=== PATIENT | male | born 1955 | race Caucasian/White ===

== ENCOUNTER 2023-09-06 09:58 | Inpatient (IN) | payer MEDICARE, OTHER, SELFPAY ==
[2023-09-06] VITALS (11 sets, daily range): BP systolic 92–187; BP diastolic 66–124; PULSE 47–81; RESP 10–18; TEMP 36.6–36.7; O2SAT 96–100; BMI 20.7
--- NOTE | ~2023-09-06 | XR_ITS ---
EXAMINATION: XR CHEST XR KUB CLINICAL INFORMATION: New dyspnea on exertion, abdominal pain, nausea, vomiting. COMPARISON: Chest 09/07/2023, 01/18/2016. TECHNIQUE: AP view of the chest. 2 AP views of the abdomen. FINDINGS: CHEST: Right humeral prosthesis redemonstrated. Median sternotomy wires with mediastinal clips. Severe degenerative changes on limited views of the left shoulder. Low lung volumes. There is no gross pneumothorax. Stable cardiomediastinal silhouette, borderline enlarged. Diffuse prominent increased interstitial opacities, asymmetrically greater on the left with increased patchy and nodular opacities predominantly in the left mid to lower lung. Trace left costophrenic angle blunting, possibly representing a pleural effusion. KUB: Large amount of stool throughout the colon. Gas is scattered in the colon. Severe degenerative changes in the imaged thoracolumbar spine. Degenerative changes in bilateral hips. Bones are diffusely demineralized. Extensive vascular calcifications. Surgical clips in the right upper quadrant of the abdomen. XR/XR KUB IMPRESSION: 1. Diffuse prominent increased interstitial opacities, asymmetrically greater on the left with increased patchy and nodular opacities predominantly in the left mid to lower lung. Differential considerations include edema, infectious/inflammatory process and/or other etiology. Trace left costophrenic angle blunting, possibly representing a pleural effusion. 2. Large amount of stool throughout the colon. Gas is scattered in the colon. This study was presented today, 09/14/2023, for interpretation. Stat results provided at this time as requested by referring provider.
--- NOTE | ~2023-09-06 | CT_ITS ---
EXAMINATION: CT CHEST WITHOUT CONTRAST CLINICAL INFORMATION: Shortness of breath. Hemoptysis. COMPARISON: None. TECHNIQUE: Multidetector volumetric CT imaging of the chest was done. Axial MIP volume rendering provided. Sagittal and coronal reformatted images were obtained. This CT examination was performed using dose optimization techniques as appropriate, variously including the following: *Automated exposure control *Adjustment of mA and/or kV according to patient size (this includes techniques or standardized protocols for targeted exams where dose is matched to indication/reason for exam; i.e. extremities or head) *Use of iterative reconstruction technique DLP: 694 mGy-cm FINDINGS: LUNGS: Diffuse groundglass airspace opacity in the left upper lobe adjacent to the major fissure. May be infectious or inflammatory in etiology. There are smaller areas of atelectasis at both lung bases. Paraseptal blebs at the lungs. There are a scattered micronodules and calcified granuloma. Largest measuring about 2 mm. There are no suspicious lung nodules. According to the UPDATED 2017 Fleischner Society recommendations, the advised follow-up imaging for solid nodules <6 mm is no routine follow up. MEDIASTINUM: Status post median sternotomy. Heart size normal. No pericardial effusion. Vascular calcifications of aorta and great vessels. No mediastinal mass or significant lymphadenopathy CORONARY ARTERY CALCIFICATION: Heavy coronary calcification PLEURA: Small dependent left pleural effusion. AXILLA: No lymphadenopathy. UPPER ABDOMEN: Status post cholecystectomy. No focal abnormalities solid organs upper abdomen. OSSEOUS STRUCTURES: Status post right shoulder replacement. Advanced degenerative changes of the left shoulder joint narrowing subchondral sclerosis and cystic changes. Multilevel degenerative spondylosis spine. CT/CT chest wo IV con IMPRESSION: 1. Diffuse groundglass airspace opacity in the left upper lobe adjacent to the major fissure. May be infectious or inflammatory in etiology. 2. Small dependent left pleural effusion. 3. Bibasilar dependent atelectasis. 4. Paraseptal emphysematous change of lungs Fleischner guidelines were followed.
--- NOTE | ~2023-09-06 | CT_ITS ---
EXAMINATION: CT HEAD WITHOUT CONTRAST CLINICAL INFORMATION: Memory impairment. Falls. COMPARISON: CT head dated 02/06/2009. TECHNIQUE: Contiguous axial imaging was performed from the skull base to vertex without intravenous administration of contrast. This CT examination was performed using dose optimization techniques as appropriate, variously including the following: *Automated exposure control *Adjustment of mA and/or kV according to patient size (this includes techniques or standardized protocols for targeted exams where dose is matched to indication/reason for exam; i.e. extremities or head) *Use of iterative reconstruction technique DLP: 628 mGy-cm FINDINGS: There is no acute intracranial hemorrhage. There is no evidence of acute/subacute cerebral or cerebellar infarction. There is a chronic right thalamic lacunar infarction. There is a chronic right occipital lobe infarction. There is mild microvascular ischemic change. There is no midline shift or mass effect. There is no extra-axial fluid collection. There is no hydrocephalus. The calvarium is intact. The orbits are symmetric and within normal limits. The visualized paranasal sinuses are clear. The mastoid air cells are well aerated. CT/CT head/brain wo IV con IMPRESSION: No acute intracranial pathology. Mild microvascular ischemic change. Chronic right thalamic lacunar infarction. Chronic right occipital lobe infarction.
--- NOTE | ~2023-09-06 | US_ITS ---
EXAMINATION: US ABDOMEN LIMITED CLINICAL INFORMATION: Pancytopenia. Rule out cirrhosis.. COMPARISON: Previous CT of the abdomen and pelvis from 2010 TECHNIQUE: Real-time imaging of the right upper quadrant abdominal viscera. FINDINGS: PANCREAS: Not seen. LIVER: Normal. The liver is normal in size. The liver contour is normal. Parenchymal echogenicity is normal. No focal hepatic lesion. There is no intrahepatic biliary duct dilatation seen. GALLBLADDER: Not seen. COMMON BILE DUCT: Normal in caliber measuring 0.3 cm in diameter. RIGHT KIDNEY: 1 cm cyst in the midpole. No hydronephrosis. No renal calculi or focal parenchymal lesions. The kidney measures 10 cm in maximum dimension. FREE FLUID: None. US/US abdomen limited IMPRESSION: Normal-appearing liver. Pancreas and gallbladder are not seen.
--- NOTE | ~2023-09-06 | XR_ITS ---
EXAMINATION: XR CHEST XR KUB CLINICAL INFORMATION: New dyspnea on exertion, abdominal pain, nausea, vomiting. COMPARISON: Chest 09/07/2023, 01/18/2016. TECHNIQUE: AP view of the chest. 2 AP views of the abdomen. FINDINGS: CHEST: Right humeral prosthesis redemonstrated. Median sternotomy wires with mediastinal clips. Severe degenerative changes on limited views of the left shoulder. Low lung volumes. There is no gross pneumothorax. Stable cardiomediastinal silhouette, borderline enlarged. Diffuse prominent increased interstitial opacities, asymmetrically greater on the left with increased patchy and nodular opacities predominantly in the left mid to lower lung. Trace left costophrenic angle blunting, possibly representing a pleural effusion. KUB: Large amount of stool throughout the colon. Gas is scattered in the colon. Severe degenerative changes in the imaged thoracolumbar spine. Degenerative changes in bilateral hips. Bones are diffusely demineralized. Extensive vascular calcifications. Surgical clips in the right upper quadrant of the abdomen. XR/XR chest 1V IMPRESSION: 1. Diffuse prominent increased interstitial opacities, asymmetrically greater on the left with increased patchy and nodular opacities predominantly in the left mid to lower lung. Differential considerations include edema, infectious/inflammatory process and/or other etiology. Trace left costophrenic angle blunting, possibly representing a pleural effusion. 2. Large amount of stool throughout the colon. Gas is scattered in the colon. This study was presented today, 09/14/2023, for interpretation. Stat results provided at this time as requested by referring provider.
--- NOTE | ~2023-09-06 | XR_ITS ---
EXAMINATION: XR CHEST CLINICAL INFORMATION: Fever. COMPARISON: 01/18/2016 TECHNIQUE: Frontal view of the chest was obtained. FINDINGS: The lungs are well expanded. No focal consolidation. No pleural effusion. Cardiac silhouette is stable. Prior median sternotomy. There is fracture of the inferior most sternal wire. Right shoulder arthroplasty. Severe degenerative changes of the left shoulder XR/XR chest 1V IMPRESSION: No acute abnormality.
--- NOTE | 2023-09-06 10:16 | ED_ITS ---
HPI - General Adult General Chief complaint: General Medical Stated complaint: FTT Time Seen by Provider: 09/06/23 10:15 Source: patient and EMS Mode of arrival: EMS Limitations: no limitations History of Present Illness HPI narrative: Patient is a 68 year old assigned male at with a history of atrial fib on Eliquis, CKD, CVA, depression, Gout, and HTN presenting to the emergency department today with weakness. Patient states that he lives at home with his grandson however, today, he was unable to get up so he shouted for help and the walking by [employer] heard him. EMS states that the patient was found lying in bed covered in his own feces and urine. PD states that the patient's house has been officially condemned. Patient denies any dizziness, lightheadedness, abdominal pain, nausea, vomiting, fever, chills, blurry vision, double vision, loss of vision, chest pain, difficulty breathing, shortness of breath, back pain, night sweats, pain with urination, increased urinary frequency, increased urinary urgency, blood in his urine or stool, syncope or a near syncopal episode, recent trauma or falls, bowel incontinence, bladder incontinence, bowel retention, bladder retention, or any other complaints at this time. Relieving factors: none Exacerbating factors: none Associated symptoms: denies other symptoms Treatments prior to arrival: none Related Data Home Medications ?Medication ?Instructions ?Recorded ?Confirmed allopurinol 100 mg tablet 100 mg PO DAILY 09/06/23 09/06/23 amlodipine 5 mg tablet 5 mg PO DAILY 09/06/23 09/06/23 apixaban 5 mg tablet (Eliquis) 5 mg PO BID 09/06/23 09/06/23 atorvastatin 40 mg tablet 40 mg PO DAILY 09/06/23 09/06/23 bupropion HCl 150 mg 24 hr tablet, 150 mg PO DAILY 09/06/23 09/06/23 extended release carvedilol 12.5 mg tablet 12.5 mg PO BID 09/06/23 09/06/23 cholecalciferol (vitamin D3) 1,250 1,250 mcg PO QWEEK 09/06/23 09/06/23 mcg (50,000 unit) capsule clonidine HCl 0.1 mg tablet 0.1 mg PO TID 09/06/23 09/06/23 clopidogrel 75 mg tablet 75 mg PO DAILY 09/06/23 09/06/23 cyanocobalamin (vitamin B-12) 1,000 mcg PO DAILY 09/06/23 09/06/23 1,000 mcg tablet furosemide 40 mg tablet 40 mg PO BID 09/06/23 09/06/23 hydralazine 50 mg tablet 50 mg PO TID 09/06/23 09/06/23 isosorbide mononitrate 60 mg 60 mg PO QAM 09/06/23 09/06/23 tablet,extended release 24 hr ondansetron HCl 4 mg tablet 4 mg PO Q8H PRN Nausea And Vomiting 09/06/23 09/06/23 oxycodone 15 mg tablet 15 mg PO Q4H PRN pain 09/06/23 09/06/23 pantoprazole 40 mg tablet,delayed 40 mg PO DAILY 09/06/23 09/06/23 release potassium chloride 10 mEq 10 meq PO BEDTIME 09/06/23 09/06/23 tablet,extended release potassium chloride 10 mEq 20 meq PO DAILY 09/06/23 09/06/23 tablet,extended release sertraline 100 mg tablet 100 mg PO DAILY 09/06/23 09/06/23 spironolactone 25 mg tablet 25 mg PO DAILY 09/06/23 09/06/23 sucralfate 1 gram tablet 1 g PO QIDACHS 09/06/23 09/06/23 Allergies Allergy/AdvReac Type Severity Reaction Status Date / Time No Known Allergies Allergy Verified 09/06/23 10:39 Review of Systems 2 Constitutional: Constitutional: Reports no additional constitutional complaints, Denies chills, Denies fever(s) and Denies night sweats Eyes: Eyes: Reports no additional eye complaints, Denies blurry vision, Denies change in vision, Denies diplopia, Denies eye discharge, Denies loss of vision and Denies eye pain ENT: Denies dizziness Cardiovascular: Cardiovascular: Reports no additional cardiovascular complaints, Denies chest pain, Denies lightheadedness, Denies Loss of Consciousness and Denies dyspnea Respiratory: Respiratory: Reports no additional respiratory complaints and Denies dyspnea Gastrointestinal: Gastrointestinal: Reports no additional gastrointestinal complaints, Denies abdominal pain, Denies melena, Denies hematochezia, Denies change in bowel habits and Denies change in stool character Genitourinary: Genitourinary: Reports no additional male genitourinary complaints, Denies hematuria, Denies oliguria, Denies difficulty urinating, Denies dysuria, Denies urinary frequency, Denies urinary hesitancy, Denies urinary incontinence and Denies urinary urgency Musculoskeletal: Musculoskeletal: Reports no additional musculoskeletal complaints, Denies numbness and Denies tingling Neurologic: Denies dizziness, Denies loss of vision, Denies numbness and Denies tingling Psychiatric: Psychiatric: Reports no additional psychiatric complaints Endocrine: Endocrine: Reports no additional endocrine complaints Hematologic/Lymphatic: Hematologic/Lymphatic: Reports no additional hematologic/lymphatic complaints Allergic/Immunologic: Allergic/Immunologic: Reports no additional allergic/immunologic complaints [facility] Past Medical History Medical History (Updated 09/06/23 @ 14:38 by NHI Garza) Use of opiates for therapeutic purposes Shoulder pain Pain in joint involving shoulder region JOSE ALEJANDRO (obstructive sleep apnea) OA (osteoarthritis) of knee Neuropathy of upper extremity Knee pain Hypertension, renal disease Hyperlipidemia Gout Depression Degenerative joint disease (DJD) of lumbar spine CVA (cerebral vascular accident) Chronic pain syndrome Chronic kidney disease, stage 3b Atrial fibrillation Aortic aneurysm Surgical History (Updated 09/06/23 @ 12:04 by Zayda Sutherland RN) Hx of CABG Social History Social History Smoked in Last 30 Days: No Use of substances other than those prescribed or required for medical reasons: Yes Substance Use Type: Marijuana Substance Use Frequency: Occasionally Advance Directives: No Advance Directives Information Provided: Yes Do you have a plan to hurt others: No Plan Physical Exam ED Vital Signs: Vital Signs - 24 hr 09/06/23 10:36 09/06/23 10:38 09/06/23 11:02 Temperature 98.1 F Pulse Rate 72 Respiratory Rate 16 16 Blood Pressure 181/119 H 174/117 H Pulse Oximetry 97 Oxygen Delivery Method Room Air 09/06/23 12:00 09/06/23 14:00 Temperature 97.9 F Pulse Rate 63 64 Respiratory Rate 18 16 Blood Pressure 176/107 H 187/124 H Pulse Oximetry 96 Oxygen Delivery Method Room Air BMI result Body Mass Index 20.7 Const General: cooperative, no acute distress, alert and awake Nutritional Appearance: well nourished Orientation/consciousness: patient oriented x3 Limitations: no limitations HENMT Head: Yes normal to inspection and Yes atraumatic Ears: hearing grossly normal bilaterally and external ears normal General nose exam: Normal external nose present, no nasal discharge noted and no epistaxis Face and sinus: Yes normal facial exam, No abrasion and No laceration Mouth: Normal oral and palatal mucosa present, no drooling and no muffled voice Eyes General: appearance normal, both eyes and all related structures Periorbital: periorbital findings normal Eyelids: Yes eyelids normal Conjunctivae: conjunctivae normal Pupils: Equal, round and reactive pupils present EOM: EOMs intact bilaterally Neck Neck: Yes normal visual inspection, Yes full ROM and Yes no lymphadenopathy Chest Chest palpation & inspection: normal inspection of the chest Resp Effort & Inspection: normal respiratory effort and able to speak in complete sentences GI Palpation (GI): Soft to palpation, not firm, nontender and no guarding Neuro General: patient oriented x3 and moves all extremities Cranial nerves: Yes Equal, round and reactive pupils present Cognition (Neuro): normal cognition Motor exam (neuro): 5/5 motor strength present throughout Sensory Exam: Normal double simultaneous stimulation for sensation Coordination: [id number] test normal Extrem Other: General: Yes full ROM and Yes capillary refill normal Psych Appearance: grossly normal Mental Status: mental status grossly normal Affect: normal affect Attitude: cooperative Thought process: Normal thought process present Thought content: Normal thought content present Insight: Good insight present (Psych) Medications Administered Generic Name Dose Route Start Last Admin Trade Name Charles PRN Reason Stop Dose Admin Allopurinol 100 mg 09/06/23 13:00 09/06/23 13:19 Allopurinol 100 Mg Tablet PO 100 mg DAILY JOHN Administration Amlodipine Besylate 5 mg 09/06/23 13:00 09/06/23 13:19 Amlodipine Besylate 5 Mg Tablet PO 5 mg DAILY JOHN Administration Protocol Apixaban 5 mg 09/06/23 13:00 09/06/23 13:19 Apixaban 5 Mg Tablet PO 5 mg BID JOHN Administration Atorvastatin Calcium 40 mg 09/06/23 13:00 09/06/23 13:18 Atorvastatin Calcium 40 Mg Tablet PO 40 mg DAILY JOHN Administration Bupropion HCl 150 mg 09/06/23 13:00 09/06/23 13:22 Bupropion Hcl Xl 150 Mg Tab.Er.24h PO 150 mg DAILY JOHN Administration Carvedilol 12.5 mg 09/06/23 13:00 09/06/23 13:19 Carvedilol 12.5 Mg Tablet PO 12.5 mg BID JOHN Administration Protocol Clopidogrel Bisulfate 75 mg 09/06/23 13:00 09/06/23 13:19 Clopidogrel Bisulfate 75 Mg Tablet PO 75 mg DAILY JOHN Administration Cyanocobalamin 1,000 mcg 09/06/23 13:00 09/06/23 13:18 Cyanocobalamin (Vitamin B-12) 1,000 Mcg Tablet PO 1,000 mcg DAILY JOHN Administration Furosemide 40 mg 09/06/23 13:00 09/06/23 13:20 Furosemide 40 Mg Tablet PO 40 mg BID JOHN Administration Protocol Isosorbide Mononitrate 60 mg 09/06/23 13:00 09/06/23 13:19 Isosorbide Mononitrate 60 Mg Tab.Er.24h PO 60 mg DAILY JOHN Administration Protocol Sertraline HCl 100 mg 09/06/23 13:00 09/06/23 13:19 Sertraline Hcl 100 Mg Tablet PO 100 mg DAILY JOHN Administration Spironolactone 25 mg 09/06/23 13:00 09/06/23 13:18 Spironolactone 25 Mg Tablet PO 25 mg DAILY JOHN Administration Protocol Medical Decision Making Medical Decision Making MDM Narrative: Patient is a 68 year old assigned male at with a history of atrial fib on Eliquis, CKD, CVA, depression, Gout, and HTN presenting to the emergency department today with weakness. Patient's physical exam was as noted in the physical exam portion of this note. Patient's blood work was unremarkable. Patient's urine showed no acute process. Patient's EKG showed atrial fibrillation which is chronic for the patient. I explained my physical exam findings as well as all test results to the patient. I answered all questions asked by the patient. Patient is medically cleared however, patient cannot go home. Physician observation began at 1256. Consultation in for case management and for physical therapy. Cardiac diet ordered. Differential Diagnosis Differential Diagnoses: The differential diagnosis associated with the presentation includes Weakness Failure to thrive Inability to ambulate Admission/Observation Consideration of admission/observation: Escalation of care including admission/observation considered Patient would have been admitted to the hospital had his work up had any findings where hospital admission was appropriate and his clinical presentation warranted hospital admission. Lab Data [facility] Lab Attestation statement: I reviewed the patient's lab results. My interpretation of these results are in the MDM Rationale portion of this note. 09/06/23 10:53 09/06/23 10:53 Labs: Lab Results 09/06/23 09/06/23 09/06/23 Range/Units 10:53 10:59 12:03 WBC 4.8 (4.8-10.8) X10*3/uL RBC 4.52 L (4.60-5.80) X10*6/uL Hgb 12.6 L (14.0-18.0) g/dl Hct 38.3 L (42.0-52.0) % MCV 84.7 (80.0-98.0) fL MCH 27.9 (27.0-33.0) pg MCHC 32.9 (31.0-36.0) g/dl RDW 15.9 (11.0-16.0) % Plt Count 104 L (160-400) X10*3/uL MPV 10.5 (9.4-12.4) fL Immature Gran % (Auto) 0.4 (0.0-0.4) % Neut % (Auto) 83.5 H (45-73) % Lymph % (Auto) 9.0 L (20-40) % Morrill % (Auto) 6.3 (2-11) % Eos % (Auto) 0.4 (0-4) % Baso % (Auto) 0.4 (0-2) % Lymph # (Auto) 0.4 L (1.2-4.9) X10*3/uL Morrill # (Auto) 0.3 (0.1-1.2) X10*3/uL Eos # (Auto) 0.0 (0.0-0.4) X10*3/uL Baso # (Auto) 0.0 (0.0-0.2) X10*3/uL Abs Immat Gran (auto) 0.02 (0.00-0.03) X10*3/uL Absolute Neuts (auto) 4.0 (2.0-8.3) x10*3/uL Absolute Nucleated RBC 0.000 (0.0-0.012) X10*3/uL Nucleated RBC % (auto) 0.0 (0.0-0.2) /100WBC PT 16.3 H (11.1-13.3) SEC INR 1.3 H (0.9-1.1) APTT 40.0 H (26.0-36.8) SEC Sodium 139 (135-145) mmol/L Potassium 3.8 (3.3-5.1) mmol/L Chloride 105 (96-108) mmol/L Carbon Dioxide 24 (22-29) mmol/L Anion Gap 14 (12-20) BUN 13 (9-16) mg/dL Creatinine 1.12 (0.5-1.4) mg/dL Estim Creat Clear Calc 61.1 Estimated GFR > 60 Random Glucose 104 (60-115) mg/dL Calcium 9.4 (8.4-10.2) mg/dL Magnesium 2.0 (1.6-2.6) mg/dL Total Bilirubin 1.7 H (0.0-1.0) mg/dL AST 7 (5-37) U/L ALT 5 (0-40) U/L Alkaline Phosphatase 107 (39-117) U/L Total Creatine Kinase 61 (38-174) U/L Troponin I High Sens 23.3 20.7 (<3.5-35.0) ng/L Total Protein 7.4 (6.5-8.0) g/dL Albumin 4.2 (3.5-5.0) g/dL Urine Color Yellow Urine Appearance Clear Urine pH 5.0 (5.0-9.0) Ur Specific [place] 1.010 (1.005-1.025) Urine Protein 300 (3+) H (Neg-Trace) mg/dL Urine Glucose (UA) Negative (Negative) mg/dL Urine Ketones Negative (Negative) mg/dL Urine Blood Trace H (Negative) Urine Nitrite Negative (Negative) Ur Leukocyte Esterase Negative (Negative) Urine RBC 0-2 (0-2) /HPF Urine WBC 0-5 (0-5) /HPF Ur Squamous Epith Cells 0-2 (0-2) /HPF Urine Bacteria 1+ (None Seen) Hyaline Casts 0-2 (0-2) /LPF Stool Occult Blood NEGATIVE (NEGATIVE) Influenza Type A (PCR) NEGATIVE (Negative) Influenza Type B (PCR) NEGATIVE (Negative) RSV RNA Qual (PCR) NEGATIVE (Negative) SARS-CoV-2 RNA (RT-PCR) NEGATIVE (Negative) Independent Interpretation I performed an independent interpretation of an: EKG Interpretation: Vent. Rate: 064 BPM Atrial Rate: 000 BPM P-R Int: 000 ms QRS Dur: 076 ms QT Int: 480 ms P-R-T Axes: 000 031 131 degrees QTc Int: [address] & T wave abnormality, consider inferolateral ischemia Abnormal ECG When compared with ECG of 18-JAN-2016 17:33, Atrial fibrillation has replaced Sinus rhythm Minimal criteria for Inferior infarct are no longer Present ST elevation now present in Inferior leads DD/ 1047 Radiology Impression Discussion of test interpretation with radiology: I have reviewed the radiologist's reading. Independent Historian Clinical information obtained from an independent historian. History obtained from or confirmed by: EMS (EMS provided additional history and confirmed the history provided by the patient. ) Chronic Conditions Patient?s care impacted by: Hypertension Discharge Plan Discharge Clinical Impression: Weakness Patient Disposition: Still a Patient Prescriptions: No Action furosemide 40 mg tablet 40 mg PO BID atorvastatin 40 mg tablet 40 mg PO DAILY clonidine HCl 0.1 mg tablet 0.1 mg PO TID carvedilol 12.5 mg tablet 12.5 mg PO BID sucralfate 1 gram tablet 1 g PO QIDACHS ondansetron HCl 4 mg tablet 4 mg PO Q8H PRN (Reason: Nausea And Vomiting) sertraline 100 mg tablet 100 mg PO DAILY cyanocobalamin (vitamin B-12) 1,000 mcg tablet 1,000 mcg PO DAILY potassium chloride 10 mEq tablet extended release 10 meq PO BEDTIME potassium chloride 10 mEq tablet extended release 20 meq PO DAILY clopidogrel 75 mg tablet 75 mg PO DAILY amlodipine 5 mg tablet 5 mg PO DAILY allopurinol 100 mg tablet 100 mg PO DAILY spironolactone 25 mg tablet 25 mg PO DAILY oxycodone 15 mg tablet 15 mg PO Q4H PRN (Reason: pain) isosorbide mononitrate 60 mg tablet extended release 24 hr 60 mg PO QAM pantoprazole 40 mg tablet,delayed release (DR/EC) 40 mg PO DAILY hydralazine 50 mg tablet 50 mg PO TID bupropion HCl 150 mg tablet extended release 24 hr 150 mg PO DAILY cholecalciferol (vitamin D3) 1,250 mcg (50,000 unit) capsule 1,250 mcg PO QWEEK Eliquis 5 mg tablet 5 mg PO BID Print Language: Estonian
--- NOTE | 2023-09-06 10:43 | ECG_ITS ---
Test Reason : ? ARRYTHMIA Blood Pressure : / mmHG Vent. Rate : 064 BPM Atrial Rate : 000 BPM P-R Int : 000 ms QRS Dur : 076 ms QT Int : 480 ms P-R-T Axes : 000 031 131 degrees QTc Int : [address] & T wave abnormality, consider inferolateral ischemia Abnormal ECG When compared with ECG of 18-JAN-2016 17:33, Atrial fibrillation has replaced Sinus rhythm Minimal criteria for Inferior infarct are no longer Present ST elevation now present in Inferior leads Referred By: Lubna Arnold Electronically Signed By:KODY FITZGERALD MD
--- NOTE | 2023-09-06 10:44 | MHC.CARE ---
Call from Loly Choudhury, Public Health Director in [place] ([phone]), patient being sent to [facility] by EMS/police, the house is being condemned, water and electricity being shut off. He is unknown to local agencies.
--- NOTE | 2023-09-06 10:46 | MHC.CM.ED ---
Addendum entered by Liz Chou 09/06/23 15:43: [facility] is not active per virtual gateway. Referral made to [facility]. Addendum entered by Liz Chou 09/06/23 15:40: Trying to obtain a copy of HCP, MOLST, and last PCP note from [facility] records. PCP is Hannah Garcia. Original Note: Received telephone call from Officer Marcio Roach of [place] [employer]. He can be reached via telephone at [phone]. Patient's home was condemned by [place] [employer] today. Lubna HANKINS aware. Continue to monitor for d/c needs.
[2023-09-06 11:00] LABS: MANUAL DIFF FLAG NO
[2023-09-06 11:09] LABS: OBS Int Ctl Valid YES; OBS1 NEGATIVE (NEGATIVE)
[2023-09-06 11:10] LABS: Appearance Urine Clear; Color Urine Yellow; Glucose Urine UA Negative (Negative); Leukocyte Esterase Urine Negative (Negative); Nitrite Urine Negative (Negative); UMIC TRIGGER UACC YES; Urine Blood Trace (Negative); Urine Ketones Negative (Negative); Urine Protein 300 (3+) mg/dL (Neg-Trace)
[2023-09-06 11:11] LABS: Basophils Percent Auto 0.4 % (0-2); Eosinophils Percent Auto 0.4 % (0-4); Hematocrit 38.3 % (42.0-52.0); Hemoglobin 12.6 g/dl (14.0-18.0); Imm Gran Abs Auto 0.02 X10*3/uL (0.00-0.03); Imm Gran Pct Auto 0.4 % (0.0-0.4); Lymphocytes Absolute Auto 0.4 X10*3/uL (1.2-4.9); Mean Corpuscular HGB Conc 32.9 g/dl (31.0-36.0); Mean Corpuscular Hemoglobin 27.9 pg (27.0-33.0); Mean Corpuscular Volume 84.7 fL (80.0-98.0); Mean Platelet Volume 10.5 fL (9.4-12.4); Monocytes Absolute Auto 0.3 X10*3/uL (0.1-1.2); Monocytes Percent Auto 6.3 % (2-11); Neutrophils Percent Auto 83.5 % (45-73); Platelet Count 104 X10*3/uL (160-400); Red Blood Count 4.52 X10*6/uL (4.60-5.80); Red Cell Distribution Width 15.9 % (11.0-16.0); White Blood Count 4.8 X10*3/uL (4.8-10.8)
--- NOTE | 2023-09-06 11:13 | PC.NURSE ---
patient a&ox3 pt came in via ems covered with feces and urine, this nurse cleaned patient with wipes and wash cloths- pt was dirty also had dried on feces. This nurse asked the patient when the last time he had washed up/cleaned up and he stated it was 2 days earlier. Pt had start of multiple pressure ulcers as listed:rt hip pressure ulcer- red/blanching, bilateral elbow- red/blanching, rt ankle/scarlett prominence- red/blanching- barrier cream was applied to all areas. health aid was applied- noted afib on monitor- EKG performed confirming afib- pt denies medical history. 20G IV inserted to LT FA- labs drawn, nasal swab performed, stool sample obtained, urine obtained. Despite patient being incontinent at home- pt requested a urinal and was continent here. Pt also noted to be hypertensive bilateral arms. Lt arm was 181/119, rt arm 174/117.
[2023-09-06 11:15] LABS: Bacteria Urine 1+ (None Seen); Hyaline Casts Urine 0-2 /LPF (0-2); INTERNATIONAL NORM RATIO 1.3 (0.9-1.1); Prothrombin Time 16.3 SEC (11.1-13.3); RBC Urine 0-2 /HPF (0-2); Squamous Epithelial Cell Urine 0-2 /HPF (0-2); WBC Urine 0-5 /HPF (0-5)
[2023-09-06 11:29] LABS: Alanine Aminotransferase 5 U/L (0-40); Albumin Level 4.2 g/dL (3.5-5.0); Alkaline Phosphatase 107 U/L (39-117); Anion Gap 14 (12-20); Aspartate Amino Transferase 7 U/L (5-37); Bilirubin Total 1.7 mg/dL (0.0-1.0); Blood Urea Nitrogen 13 mg/dL (9-16); Calcium 9.4 mg/dL (8.4-10.2); Carbon Dioxide 24 mmol/L (22-29); Chloride 105 mmol/L (96-108); Creatinine Clr Calc Pharmacy 61.1; Estimated Glomerular Filt Rate > 60; Glucose Random 104 mg/dL (60-115); Potassium 3.8 mmol/L (3.3-5.1); Sodium 139 mmol/L (135-145); Total Protein 7.4 g/dL (6.5-8.0)
[2023-09-06 11:37] LABS: Troponin-I High Sensitivity 23.3 ng/L (<3.5-35.0)
[2023-09-06 11:48] LABS: Influenza A PCR NEGATIVE (Negative); Influenza B PCR NEGATIVE (Negative); Resp Syncy Virus RNA Qual PCR NEGATIVE (Negative); SARS COV2 PCR INHOUSE NEGATIVE (Negative)
[2023-09-06 12:29] LABS: Troponin-I High Sensitivity 20.7 ng/L (<3.5-35.0)
--- NOTE | 2023-09-06 12:37 | PHA.MEDREC ---
Pharmacy Consult ? Medication Reconciliation Pharmacy has completed the medication reconciliation. Patient is failure to thrive, does not know medications. Utilized claim history to complete med rec. Manas GuardadoD
[2023-09-06] MEDS: Cyanocobalamin (Vitamin B-12) 1,000 MCG TABLET 1000 MCG PO (13:18)
[2023-09-06] MEDS: Spironolactone 25 MG TABLET PO (13:18)
[2023-09-06] MEDS: Atorvastatin Calcium 40 MG TABLET PO (13:18)
[2023-09-06] MEDS: amLODIPine Besylate 5 MG TABLET PO (13:19)
[2023-09-06] MEDS: allopurinoL 100 MG TABLET PO (13:19)
[2023-09-06] MEDS: Apixaban 5 MG TABLET PO ×2 (13:19→20:30)
[2023-09-06] MEDS: Clopidogrel Bisulfate 75 MG TABLET PO (13:19)
[2023-09-06] MEDS: Sertraline HCL 100 MG TABLET PO (13:19)
[2023-09-06] MEDS: carvediloL 12.5 MG TABLET PO (13:19)
[2023-09-06] MEDS: Isosorbide Mononitrate 60 MG TAB.ER.24H PO (13:19)
[2023-09-06] MEDS: Furosemide 40 MG TABLET PO ×2 (13:20→20:30)
[2023-09-06] MEDS: buPROPion HCl XL 150 MG TAB.ER.24H PO (13:22)
[2023-09-06] MEDS: hydrALAZINE HCl 50 MG TABLET PO ×2 (14:25→20:30)
[2023-09-06] MEDS: oxyCODONE HCl Immed Release 15 MG TABLET PO ×2 (14:25→23:08)
[2023-09-06] MEDS: cloNIDine HCL 0.1 MG TABLET PO ×2 (14:25→20:30)
--- NOTE | 2023-09-06 14:39 | PC.NURSE ---
Patient's home meds ordered and given per mar, patient on multiple antihypertensives, pressure continues to be elevated.
[2023-09-06] MEDS: Ondansetron ODT 4 MG TAB.RAPDIS TRANSLINGU ×2 (15:23→23:09)
[2023-09-06] MEDS: Sucralfate 1 GM TABLET PO ×2 (17:54→20:31)
[2023-09-06] MEDS: Potassium Chloride ER 10 MEQ TABLET.ER PO (20:31)
--- NOTE | 2023-09-06 20:53 | PC.NURSE ---
Patient washed up, repositioned on stretcher, pm meds given, pm coreg held per parameters. BP improved after restarting home medications.
--- NOTE | 2023-09-06 22:23 | MHC.CM.ED ---
CM met with patient. Review of medical record shows that patient was BIBA for failure to thrive. Pt was incontinent of urine and covered in feces and filth. Malodorous. Very unkempt. EMS filed with SS, as house was unlivable. Per Loly Choudhury of [facility] director patients house has been condemned and the electric and water have been shut off. Received HCP and MOLST from [facility]. HCP is lavell Atkinson and MOLST is a full code.Both were completed `during patients past hospitalization at [facility] on 05/10-05/17/23. PT recommends LTC/. CM met with patient. Pt appears alert and oriented. He can answer questions, although at times vague. Admits his memory is poor. Pt is minimizing condition of his home, telling CM that it needs some cleaning, but they are working on it. States they need to hire someone to clean it. Admits to urinating in bottles. States he uses a wheelchair and can self transfer. States he has a working phone. States today he was short of breath and needed help. States he heard the mailman and was yelling for help. When asked why he didn't call 911 for help, he stated he did not think about it. States his grandson helps to care for him, but that he works. Tells CM he doesn't clean much, but cooks good! Pt would like to go home. When reminded that his house was condemned, he does not seem to be concerned and states they will clean it. Pt is wheelchair bound and frail. CM has concerns that patient does not understand the gravity of the situation and that he currently does not have a place to live. Pt is very vague regarding time--is unsure how long he has been in the wheelchair. Pt has no home services. Pt does not believe he has a HCP. When reminded that he completed a HCP at his last [facility] admission, he has no recollection of completing one. CM attempted to call Bennett [place] at [phone]. Telephone number is out of service. CM called the [place] Police for contact information. Corrected telephone number is [phone]. CM was able to speak with Bennett. He was quite concerned about the house being condemned. States he came home and there were noticed attached to the door. States according to paperwork, if he can clean home, then it will not be condemned. [facility] states is he obtaining cleaning materials now. [facility] tells that his grandfather was his guardian since he was 12 years old. States his grandfather has always been difficult and always wants things his way. States he is very stubborn. Will not accept help. States he is a hoarder, and this home is better than the last place they lived in.States his grandfather will not open mail, shower or do anything to help himself. States he stays in bed. He has been bedbound for years at his request. States he cannot self transfer to his wheelchair. States his grandfather has always urinated in soda bottles. [facility] tells CM his grandfather has always been stubborn and viscious at times. [facility] feels that he is mentally ill, but has not been diagnosed, nor has he been hospitalized psychiatrically. [facility] states that his grandfather is a pathological liar. [facility] pays the bills, tries to clean, cooks and grocery shops. [facility] is aware that [facility] has been contacted. He is aware that his grandfather will stay in the ED, as he has no safe discharge. He is aware that a psych consult for capacity has been requested. He is aware that PT has recommended LTC. [facility] does not think his grandfather would want LTC. explained that when speaking with his grandfather, he did say he might need LTC. Plan of care includes: SS to visit patient 09/06 before 11am Psych for capacity as CM unsure that patient understands consequences of his actions. Possible LTC placement Possible MH application Awaiting disposition of house situation with [facility]. CM will follow for discharge planning.
--- NOTE | 2023-09-06 22:55 | PC.NURSE ---
Assumed care of pt. Pt lying on stretcher, no acute distress at this time.
[2023-09-07] VITALS (11 sets, daily range): BP systolic 93–159; BP diastolic 63–95; PULSE 49–58; RESP 16–20; TEMP 36.6–36.9; O2SAT 94–96
[2023-09-07] MEDS: oxyCODONE HCl Immed Release 15 MG TABLET PO (03:09)
[2023-09-07 08:24] LABS: MANUAL DIFF FLAG NO
[2023-09-07 08:37] LABS: Lactic Acid 0.9 mmol/L (0.5-2.0)
[2023-09-07 08:40] LABS: Anion Gap 11 (12-20); Blood Urea Nitrogen 19 mg/dL (9-16); Carbon Dioxide 25 mmol/L (22-29); Chloride 104 mmol/L (96-108); Creatinine Clr Calc Pharmacy 46.8; Estimated Glomerular Filt Rate 48; Glucose Random 102 mg/dL (60-115); Potassium 3.9 mmol/L (3.3-5.1); Sodium 136 mmol/L (135-145)
[2023-09-07 08:48] LABS: Basophils Percent Auto 0.5 % (0-2); Eosinophils Absolute Auto 0.1 X10*3/uL (0.0-0.4); Eosinophils Percent Auto 3.1 % (0-4); Hematocrit 29.2 % (42.0-52.0); Hemoglobin 9.6 g/dl (14.0-18.0); Imm Gran Abs Auto 0.04 X10*3/uL (0.00-0.03); Lymphocytes Absolute Auto 1.2 X10*3/uL (1.2-4.9); Lymphocytes Percent Auto 30.5 % (20-40); Mean Corpuscular HGB Conc 32.9 g/dl (31.0-36.0); Mean Corpuscular Hemoglobin 28.2 pg (27.0-33.0); Mean Corpuscular Volume 85.6 fL (80.0-98.0); Mean Platelet Volume 11.1 fL (9.4-12.4); Monocytes Absolute Auto 0.3 X10*3/uL (0.1-1.2); Monocytes Percent Auto 8.1 % (2-11); Neutrophils Absolute Auto 2.2 x10*3/uL (2.0-8.3); Neutrophils Percent Auto 56.8 % (45-73); Platelet Count 88 X10*3/uL (160-400); Red Blood Count 3.41 X10*6/uL (4.60-5.80); White Blood Count 3.9 X10*3/uL (4.8-10.8)
[2023-09-07] MEDS: buPROPion HCl XL 150 MG TAB.ER.24H PO (09:19)
[2023-09-07] MEDS: Potassium Chloride ER 10 MEQ TABLET.ER 20 MEQ PO (09:19)
[2023-09-07] MEDS: Omeprazole 20 MG CAPSULE.DR PO (09:20)
[2023-09-07] MEDS: Apixaban 5 MG TABLET PO ×2 (09:20→23:15)
[2023-09-07] MEDS: allopurinoL 100 MG TABLET PO (09:20)
[2023-09-07] MEDS: Sucralfate 1 GM TABLET PO ×4 (09:20→23:15)
[2023-09-07] MEDS: Cholecalciferol (Vitamin D3) 25 MCG TABLET 50 MCG PO (09:21)
[2023-09-07] MEDS: Atorvastatin Calcium 40 MG TABLET PO (09:21)
[2023-09-07] MEDS: Spironolactone 25 MG TABLET PO (09:21)
[2023-09-07] MEDS: Clopidogrel Bisulfate 75 MG TABLET PO (09:21)
[2023-09-07] MEDS: amLODIPine Besylate 5 MG TABLET PO (09:21)
[2023-09-07] MEDS: Furosemide 40 MG TABLET PO ×2 (09:22→23:16)
[2023-09-07] MEDS: Cyanocobalamin (Vitamin B-12) 1,000 MCG TABLET 1000 MCG PO (09:22)
[2023-09-07] MEDS: cloNIDine HCL 0.1 MG TABLET PO ×2 (09:22→15:21)
[2023-09-07] MEDS: Isosorbide Mononitrate 60 MG TAB.ER.24H PO (09:22)
[2023-09-07] MEDS: hydrALAZINE HCl 50 MG TABLET PO ×3 (09:22→23:16)
[2023-09-07] MEDS: Sertraline HCL 100 MG TABLET PO (09:30)
[2023-09-07 10:05] LABS: OBS Int Ctl Valid YES; OBS1 NEGATIVE (NEGATIVE)
--- NOTE | 2023-09-07 11:46 | PC.NURSE ---
assumed care of pt at 0700. pt resting quietly on stretcher, ate breakfast, and medicated per mar this AM. no distress noted. pt sleeping at this time. rr even/unlabored. plan of care ongoing.
[2023-09-07] MEDS: oxyCODONE HCl Immed Release 15 MG TABLET 30 MG PO (13:17)
--- NOTE | 2023-09-07 13:28 | P.HPHOSP_ITS ---
History of Present Illness Date of Service: 09/07/23 Chief Complaint: FTT 68 year old man with a history of atrial fib on Eliquis, CKD, CVA, depression, Gout, and HTN presenting to the emergency department today with weakness. Patient states that he lives at home with his grandson however, today, he was unable to get up so he shouted for help and the walking by mailman heard him. EMS states that the patient was found lying in bed covered in his own feces and urine. PD states that the patient's house has been officially condemned. Patient reports he has not been able to ambulate well for more than a year and only leaves his house for doctor's appointments. He is mainly in a sitting position and his grandson will bring him food. Patient was alert but only oriented to self and place. He denied fever, chills, nausea, vomiting. Reported occasional diarrhea. Denied chest pain, shortness for breath, blurred vision, headache, syncope. In the ER, his creatinine was 1.46, total bili 1.7. Plan was to have patient placed but when labs were checked it was noted that the patient's H&H had dropped. Stool occult was negative, no obvious bleeding. We will admit for FEDERICO, anemia and failure to thrive. Review of Systems 2 Review of Systems: Denies any recent fever chills or decrease in appetite respiratory denies any shortness of breath or cough cardiovascular denies chest pain gastrointestinal denies any dysphagia abdominal pain nausea vomiting or diarrhea genitourinary denies any dysuria frequency or hematuria musculoskeletal denies any joint pain or swelling neuropsych denies any weakness or seizures all other systems reviewed are negative [facility] Medical History (Updated 09/07/23 @ 16:02 by Evelia Ricketts NP) Shoulder pain Pain in joint involving shoulder region JOSE ALEJANDRO (obstructive sleep apnea) OA (osteoarthritis) of knee Neuropathy of upper extremity Hypertension, renal disease Hyperlipidemia Gout Depression Degenerative joint disease (DJD) of lumbar spine CVA (cerebral vascular accident) Chronic pain syndrome Chronic kidney disease, stage 3b Atrial fibrillation Aortic aneurysm Surgical History (Updated 09/06/23 @ 12:04 by Zayda Sutherland RN) Hx of CABG Social History Smoked in Last 30 Days: No Use of substances other than those prescribed or required for medical reasons: Yes Substance Use Type: Marijuana Substance Use Frequency: Occasionally Advance Directives: No Advance Directives Information Provided: Yes Do you have a plan to hurt others: No Plan Meds Allergies Allergy/AdvReac Type Severity Reaction Status Date / Time No Known Allergies Allergy Verified 09/06/23 10:39 Active Medications: Current Medications Acetaminophen (Acetaminophen 325 Mg Tablet) 650 mg PO Q6H PRN PRN Reason: Pain, Mild (Pain Scale 1-3) Allopurinol (Allopurinol 100 Mg Tablet) 100 mg PO DAILY [facility] Last Admin: 09/07/23 09:20 Dose: 100 mg Amlodipine Besylate (Amlodipine Besylate 5 Mg Tablet) 5 mg PO DAILY [facility]; Protocol Last Admin: 09/07/23 09:21 Dose: 5 mg Apixaban (Apixaban 5 Mg Tablet) 5 mg PO BID [facility] Last Admin: 09/07/23 09:20 Dose: 5 mg Atorvastatin Calcium (Atorvastatin Calcium 40 Mg Tablet) 40 mg PO DAILY [facility] Last Admin: 09/07/23 09:21 Dose: 40 mg Bupropion HCl (Bupropion Hcl Xl 150 Mg Tab.Er.24h) 150 mg PO DAILY [facility] Last Admin: 09/07/23 09:19 Dose: 150 mg Carvedilol (Carvedilol 12.5 Mg Tablet) 12.5 mg PO BID [facility]; Protocol Last Admin: 09/07/23 09:23 Dose: Not Given Clonidine HCl (Clonidine Hcl 0.1 Mg Tablet) 0.1 mg PO TID [facility]; Protocol Last Admin: 09/07/23 09:22 Dose: 0.1 mg Clopidogrel Bisulfate (Clopidogrel Bisulfate 75 Mg Tablet) 75 mg PO DAILY [facility] Last Admin: 09/07/23 09:21 Dose: 75 mg Cyanocobalamin (Cyanocobalamin (Vitamin B-12) 1,000 Mcg Tablet) 1,000 mcg PO DAILY [facility] Last Admin: 09/07/23 09:22 Dose: 1,000 mcg Furosemide (Furosemide 40 Mg Tablet) 40 mg PO BID [facility]; Protocol Last Admin: 09/07/23 09:22 Dose: 40 mg Hydralazine HCl (Hydralazine Hcl 50 Mg Tablet) 50 mg PO TID [facility]; Protocol Last Admin: 09/07/23 09:22 Dose: 50 mg Isosorbide Mononitrate (Isosorbide Mononitrate 60 Mg Tab.Er.24h) 60 mg PO DAILY [facility]; Protocol Last Admin: 09/07/23 09:22 Dose: 60 mg Omeprazole (Omeprazole 20 Mg Capsule.Dr) 20 mg PO DAILY@0630 [facility] Last Admin: 09/07/23 09:20 Dose: 20 mg Ondansetron HCl (Ondansetron Odt 4 Mg Tab.Rapdis) 4 mg TRANSLINGU Q8H PRN PRN Reason: Nausea And Vomiting Last Admin: 09/06/23 23:09 Dose: 4 mg Ondansetron HCl (Ondansetron Hcl 4 Mg/2 Ml Vial) 4 mg IVPUSH Q8H PRN PRN Reason: Nausea and Vomiting Oxycodone HCl (Oxycodone Hcl Immed Release 15 Mg Tablet) 15 mg PO Q4H PRN PRN Reason: Pain, Moderate(Pain Scale 4-6) Last Admin: 09/07/23 03:09 Dose: 15 mg Potassium Chloride (Potassium Chloride Er 10 Meq Tablet.Er) 10 meq PO BEDTIME [facility] Last Admin: 09/06/23 20:31 Dose: 10 meq Potassium Chloride (Potassium Chloride Er 10 Meq Tablet.Er) 20 meq PO DAILY [facility] Last Admin: 09/07/23 09:19 Dose: 20 meq Sertraline HCl (Sertraline Hcl 100 Mg Tablet) 100 mg PO DAILY [facility] Last Admin: 09/07/23 09:30 Dose: 100 mg Sodium Chloride (0.9 % Sodium Chloride Flush 3 Ml Syringe) [facility] Spironolactone (Spironolactone 25 Mg Tablet) 25 mg PO DAILY [facility]; Protocol Last Admin: 09/07/23 09:21 Dose: 25 mg Sucralfate (Sucralfate 1 Gm Tablet) 1 gm PO QIDACHS [facility] Last Admin: 09/07/23 12:41 Dose: 1 gm Vitamin D (Cholecalciferol (Vitamin D3) 25 Mcg Tablet) 50 mcg PO DAILY [facility] Last Admin: 09/07/23 09:21 Dose: 50 mcg Home Medications ?Medication ?Instructions ?Recorded ?Confirmed ?Last Taken ?Type allopurinol 100 mg tablet 100 mg PO DAILY 09/06/23 09/06/23 Unknown History amlodipine 5 mg tablet 5 mg PO DAILY 09/06/23 09/06/23 Unknown History apixaban 5 mg tablet (Eliquis) 5 mg PO BID 09/06/23 09/06/23 Unknown History atorvastatin 40 mg tablet 40 mg PO DAILY 09/06/23 09/06/23 Unknown History bupropion HCl 150 mg 24 hr tablet, 150 mg PO DAILY 09/06/23 09/06/23 Unknown History extended release carvedilol 12.5 mg tablet 12.5 mg PO BID 09/06/23 09/06/23 Unknown History cholecalciferol (vitamin D3) 1,250 1,250 mcg PO QWEEK 09/06/23 09/06/23 Unknown History mcg (50,000 unit) capsule clonidine HCl 0.1 mg tablet 0.1 mg PO TID 09/06/23 09/06/23 Unknown History clopidogrel 75 mg tablet 75 mg PO DAILY 09/06/23 09/06/23 Unknown History cyanocobalamin (vitamin B-12) 1,000 mcg PO DAILY 09/06/23 09/06/23 Unknown History 1,000 mcg tablet furosemide 40 mg tablet 40 mg PO BID 09/06/23 09/06/23 Unknown History hydralazine 50 mg tablet 50 mg PO TID 09/06/23 09/06/23 Unknown History isosorbide mononitrate 60 mg 60 mg PO QAM 09/06/23 09/06/23 Unknown History tablet,extended release 24 hr ondansetron HCl 4 mg tablet 4 mg PO Q8H PRN Nausea And Vomiting 09/06/23 09/06/23 Unknown History oxycodone 15 mg tablet 15 mg PO Q4H PRN pain 09/06/23 09/06/23 Unknown History pantoprazole 40 mg tablet,delayed 40 mg PO DAILY 09/06/23 09/06/23 Unknown History release potassium chloride 10 mEq 10 meq PO BEDTIME 09/06/23 09/06/23 Unknown History tablet,extended release potassium chloride 10 mEq 20 meq PO DAILY 09/06/23 09/06/23 Unknown History tablet,extended release sertraline 100 mg tablet 100 mg PO DAILY 09/06/23 09/06/23 Unknown History spironolactone 25 mg tablet 25 mg PO DAILY 09/06/23 09/06/23 Unknown History sucralfate 1 gram tablet 1 g PO QIDACHS 09/06/23 09/06/23 Unknown History Physical Exam 2 Vital Signs and Narrative: Vital Signs: Last Vital Signs Temp 98.0 F 09/07/23 10:46 Pulse 57 09/07/23 10:46 Resp 16 09/07/23 10:46 BP 107/71 09/07/23 10:46 Pulse Ox 95 09/07/23 10:46 O2 Del Method Room Air 09/07/23 10:46 BMI result Body Mass Index 20.7 Appearing in no acute distress head is normocephalic atraumatic eyes pupils are PERRLA sclera is anicteric mouth throat mucous membranes are intact and moist neck is supple no lymphadenopathy, no JVD noted lung sounds are clear to auscultation heart regular rate rhythm, clear S1, S2 positive bowel sounds, abdomen is soft, nontender neuro patient is alert x3, no focal deficits Results Labs 09/07/23 08:20 09/07/23 08:14 Labs: Laboratory Results - last 24 hr 09/07/23 09/07/23 09/07/23 08:14 08:20 09:59 MCV 85.6 MCH 28.2 MCHC 32.9 RDW 16.0 Plt Count 88 L MPV 11.1 Immature Gran % (Auto) 1.0 H Neut % (Auto) 56.8 Lymph % (Auto) 30.5 Potter % (Auto) 8.1 Eos % (Auto) 3.1 Baso % (Auto) 0.5 Lymph # (Auto) 1.2 Potter # (Auto) 0.3 Eos # (Auto) 0.1 Baso # (Auto) 0.0 Abs Immat Gran (auto) 0.04 H Absolute Neuts (auto) 2.2 Absolute Nucleated RBC 0.000 Nucleated RBC % (auto) 0.0 Anion Gap 11 L Estim Creat Clear Calc 46.8 Estimated GFR 48 Random Glucose 102 Lactic Acid 0.9 Calcium 9.0 Total Creatine Kinase Cancelled Stool Occult Blood NEGATIVE Blood Type Antibody Screen 09/07/23 11:03 MCV MCH MCHC RDW Plt Count MPV Immature Gran % (Auto) Neut % (Auto) Lymph % (Auto) Potter % (Auto) Eos % (Auto) Baso % (Auto) Lymph # (Auto) Potter # (Auto) Eos # (Auto) Baso # (Auto) Abs Immat Gran (auto) Absolute Neuts (auto) Absolute Nucleated RBC Nucleated RBC % (auto) Anion Gap Estim Creat Clear Calc Estimated GFR Random Glucose Lactic Acid Calcium Total Creatine Kinase Stool Occult Blood Blood Type A Positive Antibody Screen NEGATIVE Imaging Radiologist's Impressions: Impressions Chest X-Ray 09/07/23 08:48 IMPRESSION: No acute abnormality. Assessment and Plan (1) Anemia: Status: Acute (2) Weakness: Status: Acute Plan 68-year-old man admitted with weakness, failure to thrive, FEDERICO. Found in his home covered in feces and urine. FEDERICO on CKD stage 3 Likely secondary to dehydration IV fluids If no improvement consider Nephrology consultation Follow BMP daily Hold spironolactone Failure to thrive Supportive care Physical therapy recommended long-term care Psychiatric consult placed for capacity Normocytic anemia HH dropped while in the ED no obvious bleeding, above transfusion check iron studies in the morning Hypertension Continue amlodipine Atrial fibrillation, paroxysmal On Eliquis and carvedilol Hyperlipidemia Hold statin for now Mental health Continue home medications JOSE ALEJANDRO not on cpap DVT prophylaxis with Eliquis Full code Patient require at least 48 hour inpatient admission for FEDERICO on CKD stage 3 likely secondary to dehydration, failure to thrive and will need psychiatric consultation for capacity evaluation Quality Stroke Does the patient have a stroke diagnosis?: No VTE Prior VTE?: No VTE Risk Level:: Medical - moderate - high VTE Device Contraindication: N/A - Device Ordered VTE Drug Contraindication: Treatment Not Indicated
[2023-09-07] MEDS: 0.9 % Sodium Chloride 1,000 ML 75 ML IVCONT (15:04)
--- NOTE | 2023-09-07 15:57 | MHC.CM.ED ---
Addendum entered by Aydee Newton 09/07/23 20:40: Copy of IMM to medical records. Addendum entered by Aydee Newton 09/07/23 20:31: IMM 09/06.CM called and spoke with Bennett Michellesree ([phone]). Notified of admission. Aware that psychiatry has not seen his grandfather yet regarding capacity. [facility] is aware that his grandather cannot be discharged until there is a safe discharge plan. [facility] tells that he cleaned the entire house and it should be okay now. IRENE explained that he would need to call the [facility] to determine if the home is now livable. IRENE explained to Bennett twice that his grandfather may be better cared for in LTC. IRENE explained that his grandfather would have another major case detective when he moves to the floor. Reviewed IMM with [facility]. Will mail to him via certified mail. Contact card given. Addendum entered by Aydee Newton 09/07/23 16:39: Attempted to call Bennett monet with updates to admit patient and review IMM. Phone went to voicemail and mailbox was full. Unable to leave a message. Will try to call again later. Bed assignment is pending. Original Note: [facility] [place] ([phone]). [facility] does not feel that rodolfo Bennett can adequately care for patient and are recommending LTC. They will follow. Pt is being admitted. Awaiting bed assignment.
--- NOTE | 2023-09-07 19:34 | MHC.EDTECH ---
PATIENT WAS SET UP WITH DINNER ,ATE 100 % OF MEAL DRANK 240 ML FLUIDS ,PATIENT WAS INCONIANT OF URINE CARE GIVEN ,PATIENT WAS REPOSITION AND BOOSTED UP IN BED .
[2023-09-07] MEDS: Potassium Chloride ER 10 MEQ TABLET.ER PO (23:15)
--- NOTE | 2023-09-07 23:37 | MHC.EDTECH ---
0000 rounding done ,vitals taken ,Patient was incontinent of urine ,care given and [place] in Place ,warm blanket given .
[2023-09-08] VITALS (13 sets, daily range): BP systolic 103–162; BP diastolic 61–86; PULSE 42–66; RESP 16–20; TEMP 36.4–36.6; O2SAT 93–97; BMI 20.5
--- NOTE | 2023-09-08 02:27 | MHC.EDTECH ---
0200 rounding done ,Patient sleeping .
[2023-09-08] MEDS: 0.9 % Sodium Chloride 1,000 ML 75 ML IVCONT ×2 (03:42→16:08)
--- NOTE | 2023-09-08 04:36 | PC.NURSE ---
This commercial insurance underwriter assumed care of this Pt at 0300. Pt appears to be sleeping, fluids running per MAR. Report complete Pt will be transported to room 362.
[2023-09-08] MEDS: Omeprazole 20 MG CAPSULE.DR PO (04:55)
[2023-09-08] MEDS: oxyCODONE HCl Immed Release 15 MG TABLET PO ×3 (04:55→15:04)
[2023-09-08 06:44] LABS: MANUAL DIFF FLAG NO
[2023-09-08 07:01] LABS: Basophils Percent Auto 0.5 % (0-2); Eosinophils Absolute Auto 0.1 X10*3/uL (0.0-0.4); Eosinophils Percent Auto 2.6 % (0-4); Hematocrit 33.2 % (42.0-52.0); Hemoglobin 10.8 g/dl (14.0-18.0); Imm Gran Abs Auto 0.01 X10*3/uL (0.00-0.03); Imm Gran Pct Auto 0.3 % (0.0-0.4); Lymphocytes Absolute Auto 0.8 X10*3/uL (1.2-4.9); Lymphocytes Percent Auto 21.5 % (20-40); Mean Corpuscular HGB Conc 32.5 g/dl (31.0-36.0); Mean Corpuscular Hemoglobin 27.8 pg (27.0-33.0); Mean Corpuscular Volume 85.6 fL (80.0-98.0); Monocytes Absolute Auto 0.3 X10*3/uL (0.1-1.2); Monocytes Percent Auto 7.4 % (2-11); Neutrophils Absolute Auto 2.6 x10*3/uL (2.0-8.3); Neutrophils Percent Auto 67.7 % (45-73); Red Blood Count 3.88 X10*6/uL (4.60-5.80); Red Cell Distribution Width 15.9 % (11.0-16.0); White Blood Count 3.9 X10*3/uL (4.8-10.8)
[2023-09-08 07:03] LABS: Platelet Count 99 X10*3/uL (160-400)
[2023-09-08 07:05] LABS: Alanine Aminotransferase 5 U/L (0-40); Albumin Level 3.8 g/dL (3.5-5.0); Alkaline Phosphatase 84 U/L (39-117); Anion Gap 12 (12-20); Aspartate Amino Transferase 4 U/L (5-37); Bilirubin Total 0.9 mg/dL (0.0-1.0); Blood Urea Nitrogen 18 mg/dL (9-16); Calcium 9.3 mg/dL (8.4-10.2); Carbon Dioxide 26 mmol/L (22-29); Chloride 104 mmol/L (96-108); Creatinine Clr Calc Pharmacy 43.7; Estimated Glomerular Filt Rate 45; Glucose Random 145 mg/dL (60-115); Iron 29 mcg/dL (45-160); Percent Iron Saturation 12 % (15-50); Potassium 3.9 mmol/L (3.3-5.1); Sodium 138 mmol/L (135-145); Total Iron Binding Capacity 239 mcg/dL (228-428); Total Protein 6.7 g/dL (6.5-8.0); Unsaturated Iron Binding 210 ug/dL
[2023-09-08 07:36] LABS: Vitamin B12 790 pg/mL (200-900)
[2023-09-08] MEDS: Atorvastatin Calcium 40 MG TABLET PO (09:04)
[2023-09-08] MEDS: Clopidogrel Bisulfate 75 MG TABLET PO (09:04)
[2023-09-08] MEDS: Cholecalciferol (Vitamin D3) 25 MCG TABLET 50 MCG PO (09:04)
[2023-09-08] MEDS: buPROPion HCl XL 150 MG TAB.ER.24H PO (09:04)
[2023-09-08] MEDS: Potassium Chloride ER 10 MEQ TABLET.ER 20 MEQ PO (09:04)
[2023-09-08] MEDS: allopurinoL 100 MG TABLET PO (09:04)
[2023-09-08] MEDS: Sertraline HCL 100 MG TABLET PO (09:05)
[2023-09-08] MEDS: Sucralfate 1 GM TABLET PO ×4 (09:05→20:21)
[2023-09-08] MEDS: Furosemide 40 MG TABLET PO (09:05)
[2023-09-08] MEDS: hydrALAZINE HCl 50 MG TABLET PO ×2 (09:05→15:07)
[2023-09-08] MEDS: Cyanocobalamin (Vitamin B-12) 1,000 MCG TABLET 1000 MCG PO (09:07)
[2023-09-08] MEDS: amLODIPine Besylate 5 MG TABLET PO (09:07)
[2023-09-08] MEDS: Spironolactone 25 MG TABLET PO (09:07)
[2023-09-08] MEDS: Apixaban 5 MG TABLET PO ×2 (09:07→20:26)
[2023-09-08] MEDS: Isosorbide Mononitrate 60 MG TAB.ER.24H PO (09:07)
[2023-09-08] MEDS: cloNIDine HCL 0.1 MG TABLET PO ×2 (09:07→15:05)
[2023-09-08] MEDS: carvediloL 12.5 MG TABLET PO (09:08)
--- NOTE | 2023-09-08 10:39 | MHC.CM.PN ---
Addendum entered by Linda Fenton RN 09/08/23 15:53: Patient seen by psych, does not have capacity, HCP invoked. CM spoke with grandson/HCP Bennett and provided updates. [facility] is aware he is making medical decisions at this time. Reports he would like to take patient home when medically cleared, but feels that he needs additional supports in place. [facility] currently works M-F 9-5. Additionally, [facility] states he has cleaned the home and will go to the [facility] in the morning to request re-evaluation, as it is currently condemned. [facility] is aware patient cannot dc to a condemned home. [facility] referral placed for [employer]/homemaking services. PCP is Hannah Garcia NP. Confirmed patient is active and scheduled telehealth follow up for 09/28 at 0815. Patient aware. CM will continue to follow for safe dc. Original Note: Patient now admitted to room 362. IMM was delivered 09/06. Psych consult for capacity is pending. CM will continue to follow for safe dc.
--- NOTE | 2023-09-08 11:31 | HO.SKINPHOTO ---
Location: Right Hip Category: Pressure Stage: Length: Width: Depth: cm Location: Right ankle Category: Pressure Stage: Length: Width: Depth: cm Location: Category: Stage: Length: Width: Depth: cm Location: Category: Stage: Length: Width: Depth: cm Location: Category: Stage: Length: Width: Depth: cm Location: Category: Stage: Length: Width: Depth: cm
[2023-09-08] MEDS: ondansetron HCL 4 MG/2 ML VIAL IVPUSH (11:37)
--- NOTE | 2023-09-08 13:31 | MHC.CLN ---
RE: CONSULT PT WITH INCREASED NUTRITION RISK R/T PRESSURE INJURY PO INTAKE 100% X1 MEAL NOTED PT IS 85% JUN RANGE INDICATES BORDERLINE MILDLY UNDER WT FOR HT, HOWEVER BMI WNL 20.5 PT REPORTS DECREASED AMBULATION X 1 YEAR AND ONLY LEAVES THE HOUSE FOR DOCTOR APPOINTMENTS. GRANDSON BRINGS HIM FOOD. PT'S HOME HAS BEEN CONDEMNED. PT WITH FTT IN THE COMMUNITY AND MAY BE CONTRIBUTOR TO LOW IBW DIET RX: 2GM NA-APPROPRIATE RECOMMEND ADDING NUTRITION SUPPLEMENT TO PROMOTE WOUND HEALING WILL ADD ENSURE TID TO PROVIDE 1050KCALS, 60G PROTEIN MONITOR PO INTAKE AND ENCOURAGE SUPPLEMENTS
--- NOTE | 2023-09-08 14:06 | HO.PM.IMPN ---
Subjective Subjective Date of Service: 09/08/23 Interval History: Seen and examined this morning Follow-up for FEDERICO, anemia, failure to thrive Reporting generalized pain which he states is chronic. No other complaints Review of Systems Review of Systems: Yes all other systems are reviewed and are negative Constitutional Constitutional: Denies chills and Denies fever(s) Cardiovascular Cardiovascular: Denies chest pain and Denies dyspnea Respiratory Respiratory: Denies dyspnea Gastrointestinal Gastrointestinal: Denies abdominal pain Physical Exam Vital Signs: Vital Signs: Last Vital Signs Temp 97.6 F 09/08/23 07:55 Pulse 66 09/08/23 09:08 Resp 16 09/08/23 07:55 BP 162/77 H 09/08/23 09:08 Pulse Ox 97 09/08/23 07:55 O2 Del Method Room Air 09/08/23 07:55 BMI result Body Mass Index 20.5 Const: General: cooperative, comfortable, no acute distress, alert and awake Nutritional Appearance: average body habitus Orientation/consciousness: patient oriented x3 Resp: Effort & Inspection: normal respiratory effort Cardio: Rate: regular rate GI: Inspection: No distended Palpation (GI): Soft to palpation Neuro: General: patient oriented x3, moves all extremities and CN's II-XI intact bilaterally Extrem: General: Yes no pedal edema Objective Data Active Medications Acetaminophen (Acetaminophen 325 Mg Tablet) 650 mg PO Q6H PRN PRN Reason: Pain, Mild (Pain Scale 1-3) Allopurinol (Allopurinol 100 Mg Tablet) 100 mg PO DAILY [facility] Last Admin: 09/08/23 09:04 Dose: 100 mg Documented By: JOSE Amlodipine Besylate (Amlodipine Besylate 5 Mg Tablet) 5 mg PO DAILY [facility]; Protocol Last Admin: 09/08/23 09:07 Dose: 5 mg Documented By: JOSE Apixaban (Apixaban 5 Mg Tablet) 5 mg PO BID [facility] Last Admin: 09/08/23 09:07 Dose: 5 mg Documented By: JOSE Atorvastatin Calcium (Atorvastatin Calcium 40 Mg Tablet) 40 mg PO DAILY [facility] Last Admin: 09/08/23 09:04 Dose: 40 mg Documented By: JOSE Bupropion HCl (Bupropion Hcl Xl 150 Mg Tab.Er.24h) 150 mg PO DAILY [facility] Last Admin: 09/08/23 09:04 Dose: 150 mg Documented By: JOSE Carvedilol (Carvedilol 12.5 Mg Tablet) 12.5 mg PO BID [facility]; Protocol Last Admin: 09/08/23 09:08 Dose: 12.5 mg Documented By: JOSE Clonidine HCl (Clonidine Hcl 0.1 Mg Tablet) 0.1 mg PO TID [facility]; Protocol Last Admin: 09/08/23 09:07 Dose: 0.1 mg Documented By: JOSE Clopidogrel Bisulfate (Clopidogrel Bisulfate 75 Mg Tablet) 75 mg PO DAILY [facility] Last Admin: 09/08/23 09:04 Dose: 75 mg Documented By: JOSE Cyanocobalamin (Cyanocobalamin (Vitamin B-12) 1,000 Mcg Tablet) 1,000 mcg PO DAILY [facility] Last Admin: 09/08/23 09:07 Dose: 1,000 mcg Documented By: JOSE Furosemide (Furosemide 40 Mg Tablet) 40 mg PO BID [facility]; Protocol Last Admin: 09/08/23 09:05 Dose: 40 mg Documented By: JOSE Hydralazine HCl (Hydralazine Hcl 50 Mg Tablet) 50 mg PO TID [facility]; Protocol Last Admin: 09/08/23 09:05 Dose: 50 mg Documented By: JOSE Sodium Chloride (Ns) 1,000 mls @ 75 mls/hr IVCONT .[id number] [facility] Last Admin: 09/08/23 03:42 Dose: 75 mls/hr Documented By: SERRANX Isosorbide Mononitrate (Isosorbide Mononitrate 60 Mg Tab.Er.24h) 60 mg PO DAILY [facility]; Protocol Last Admin: 09/08/23 09:07 Dose: 60 mg Documented By: JOSE Omeprazole (Omeprazole 20 Mg Capsule.Dr) 20 mg PO DAILY@0630 [facility] Last Admin: 09/08/23 04:55 Dose: 20 mg Documented By: LOUISE Ondansetron HCl (Ondansetron Odt 4 Mg Tab.Rapdis) 4 mg TRANSLINGU Q8H PRN PRN Reason: Nausea And Vomiting Last Admin: 09/06/23 23:09 Dose: 4 mg Documented By: EFRAIN Comments: Early admin ok per Ondansetron HCl (Ondansetron Hcl 4 Mg/2 Ml Vial) 4 mg IVPUSH Q8H PRN PRN Reason: Nausea and Vomiting Last Admin: 09/08/23 11:37 Dose: 4 mg Documented By: JOSE Oxycodone HCl (Oxycodone Hcl Immed Release 15 Mg Tablet) 15 mg PO Q4H PRN PRN Reason: Pain, Moderate(Pain Scale 4-6) Last Admin: 09/08/23 09:15 Dose: 15 mg Documented By: JOSE Potassium Chloride (Potassium Chloride Er 10 Meq Tablet.Er) 10 meq PO BEDTIME [facility] Last Admin: 09/07/23 23:15 Dose: 10 meq Documented By: ESTHER Potassium Chloride (Potassium Chloride Er 10 Meq Tablet.Er) 20 meq PO DAILY [facility] Last Admin: 09/08/23 09:04 Dose: 20 meq Documented By: JOSE Sertraline HCl (Sertraline Hcl 100 Mg Tablet) 100 mg PO DAILY [facility] Last Admin: 09/08/23 09:05 Dose: 100 mg Documented By: JOSE Sodium Chloride (0.9 % Sodium Chloride Flush 3 Ml Syringe) 3 ml IVFLUSH [facility] Last Admin: 09/08/23 09:08 Dose: Not Given Documented By: JOSE Non-Admin Reason: IV Running Sodium Chloride (0.9 % Sodium Chloride Flush 3 Ml Syringe) 3 ml IVFLUSH [facility] Last Admin: 09/08/23 09:08 Dose: Not Given Documented By: JOSE Non-Admin Reason: Duplicate Order Spironolactone (Spironolactone 25 Mg Tablet) 25 mg PO DAILY [facility]; Protocol Last Admin: 09/08/23 09:07 Dose: 25 mg Documented By: JOSE Sucralfate (Sucralfate 1 Gm Tablet) 1 gm PO QIDACHS [facility] Last Admin: 09/08/23 11:37 Dose: 1 gm Documented By: JOSE Vitamin D (Cholecalciferol (Vitamin D3) 25 Mcg Tablet) 50 mcg PO DAILY [facility] Last Admin: 09/08/23 09:04 Dose: 50 mcg Documented By: JOSE Labs 09/08/23 05:36 09/08/23 05:36 Labs: Laboratory Results - last 24 hr 09/08/23 09/08/23 05:36 05:37 MCV 85.6 MCH 27.8 MCHC 32.5 RDW 15.9 Plt Count 99 L MPV 12.0 Immature Gran % (Auto) 0.3 Neut % (Auto) 67.7 Lymph % (Auto) 21.5 [place] % (Auto) 7.4 Eos % (Auto) 2.6 Baso % (Auto) 0.5 Lymph # (Auto) 0.[address] [place] # (Auto) 0.3 Eos # (Auto) 0.1 Baso # (Auto) 0.0 Abs Immat Gran (auto) 0.01 Absolute Neuts (auto) 2.6 Absolute Nucleated RBC 0.000 Nucleated RBC % (auto) 0.0 Anion Gap 12 Estim Creat Clear Calc 43.7 Estimated GFR 45 Random Glucose 145 H Calcium 9.3 Iron 29 L TIBC 239 % Saturation 12 L Unsat Iron Binding 210 Total Bilirubin 0.9 AST 4 L ALT 5 Alkaline Phosphatase 84 Total Protein 6.7 Albumin 3.8 Vitamin B12 790 Folate 6.0 Microbiology Microbiology Results: Microbiology 09/07/23 08:15 Blood Culture - Preliminary Blood - Venous No growth after 24 hours. 09/07/23 08:14 Blood Culture - Preliminary Blood - Venous No growth after 24 hours. Assessment and Plan (1) Anemia: Status: Acute Plan 68-year-old man admitted with weakness, failure to thrive, FEDERICO. Found in his home covered in feces and urine. FEDERICO on CKD stage 3 Likely secondary to dehydration IV fluids Follow BMP daily Hold spironolactone, lasix Failure to thrive Supportive care Physical therapy recommended long-term care Psychiatric consult placed for capacity - pending Normocytic anemia H/H stable,stool occult negative iron studies with low iron, normal TIBC; will check ferritin Hypertension Continue amlodipine, hydralazine, coreg, clonidine Atrial fibrillation, paroxysmal On Eliquis and carvedilol Hyperlipidemia continue statin CAD continue BB, statin, imdur ?chf, unspecified aldactone and lasix on hold for FEDERICO No echocardiogram in system Appears compensated Mental health Continue zoloft, wellbutrin JOSE ALEJANDRO not on cpap DVT prophylaxis with Eliquis Full code Patient require at least 48 hour inpatient admission for FEDERICO on CKD stage 3 likely secondary to dehydration, failure to thrive and will need psychiatric consultation for capacity evaluation Quality Stroke Does the patient have a stroke diagnosis?: No VTE Prior VTE?: No VTE Risk Level:: Medical - moderate - high VTE Device Contraindication: Treatment Not Indicated VTE Drug Contraindication: N/A - Med Ordered
--- NOTE | 2023-09-08 14:45 | HO.WOUND ---
Wound Consult: Initial 68yr old Male? admitted to [facility] on 09/07/23 - See progress notes and H&P for detailed history.? Wound consult placed for Right Hip / Trochanter and Right Lateral ankle wounds POA.? Chart and photo review for topical recommendations - will assess at future date and time. Right hip trochanter Etiology: ??Deep Tissue Injury Present on Admission Wound Bed: dark purple maroon tissue over bony prominence Goals of Treatment: ? Foam dressing to aid in pressure redistribution Right Lateral Ankle Etiology: ??Stage 2 Pressure Injury Present on Admission Wound Bed:red scabbed tissue over bony prominence Goals of Treatment: ? Foam dressing to aid in pressure redistribution and moist wound healing Recommendations: 1. Turn and Reposition every 2 hours and as needed for patient comfort.? Use pillows or wedges to support off loading positions. 2. Off Load all bony prominences with use of pillows and heel boots if needed.? Apply Preventative foams where needed. ? 3. Monitor for incontinence and moisture control, use barrier creams when needed for prevention and treatment. 4. Provide adequate and supplemental nutrition.? 5. Order or Continue low air loss mattress. 6. When applicable maintain blood glucose levels per Providers order. 7. Right ankle and hip - Routine cleansing. Apply skin prep allow to dry. Cover with foam dressing peel back and assess Q shift and change every 3 days. Re-consult wound care Nurse for wound deterioration or wound changes.
[2023-09-08 15:18] LABS: Ferritin 85 ng/mL (20-250)
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
[2023-09-08] MEDS: Potassium Chloride ER 10 MEQ TABLET.ER PO (20:21)
[2023-09-09] MEDS: oxyCODONE HCl Immed Release 15 MG TABLET PO ×5 (00:26→18:03)
[2023-09-09 03:27] VITALS: BP 140/87; PULSE 54; RESP 16; TEMP 36.1; O2SAT 92
[2023-09-09] MEDS: 0.9 % Sodium Chloride 1,000 ML 75 ML IVCONT (05:30)
[2023-09-09] MEDS: Omeprazole 20 MG CAPSULE.DR PO (05:38)
[2023-09-09] MEDS: Sucralfate 1 GM TABLET PO ×3 (07:03→21:36)
--- NOTE | 2023-09-09 07:05 | PC.NURSE ---
2031 pt bp 103/61 HR 32 - 42. MD notified and hold Coreg, Hydralazine, and Clonidine. throughout the night provided pain management by eMar. provided washed up head to toe. pt said feels much better and he didn't shower for year. this morning went down to CT head scan. will cont. monitor any other symptoms.
[2023-09-09 07:10] VITALS: BP 158/78; PULSE 56; RESP 18; TEMP 36.8; O2SAT 94
[2023-09-09 09:01] LABS: Anion Gap 14 (12-20); Blood Urea Nitrogen 20 mg/dL (9-16); Calcium 9.3 mg/dL (8.4-10.2); Carbon Dioxide 23 mmol/L (22-29); Chloride 103 mmol/L (96-108); Creatinine Clr Calc Pharmacy 50.1; Estimated Glomerular Filt Rate 52; Glucose Random 131 mg/dL (60-115); Potassium 3.9 mmol/L (3.3-5.1); Sodium 136 mmol/L (135-145)
[2023-09-09] MEDS: Potassium Chloride ER 10 MEQ TABLET.ER 20 MEQ PO (09:25)
[2023-09-09] MEDS: buPROPion HCl XL 150 MG TAB.ER.24H PO (09:25)
[2023-09-09] MEDS: Sertraline HCL 100 MG TABLET PO (09:25)
[2023-09-09] MEDS: cloNIDine HCL 0.1 MG TABLET PO ×3 (09:25→21:35)
[2023-09-09] MEDS: Potassium Chloride ER 10 MEQ TABLET.ER PO (09:25)
[2023-09-09] MEDS: Cholecalciferol (Vitamin D3) 25 MCG TABLET 50 MCG PO (09:26)
[2023-09-09] MEDS: Apixaban 5 MG TABLET PO ×2 (09:26→21:36)
[2023-09-09] MEDS: Clopidogrel Bisulfate 75 MG TABLET PO (09:26)
[2023-09-09] MEDS: hydrALAZINE HCl 50 MG TABLET PO ×3 (09:26→21:35)
[2023-09-09] MEDS: allopurinoL 100 MG TABLET PO (09:26)
[2023-09-09] MEDS: Atorvastatin Calcium 40 MG TABLET PO (09:26)
[2023-09-09] MEDS: carvediloL 12.5 MG TABLET PO ×2 (09:26→21:36)
[2023-09-09] MEDS: amLODIPine Besylate 5 MG TABLET PO (09:26)
[2023-09-09] MEDS: Isosorbide Mononitrate 60 MG TAB.ER.24H PO (09:26)
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
--- NOTE | 2023-09-09 13:21 | MHC.CLN ---
F/U PT WITH INCREASED NUTRITION RISK R/T PRESSURE INJURIES. DTI RIGHT HIP AND STAGE II RIGHT ANKLE. PO INTAKE 75-100%. DIET RX: 2GM NA-APPROPRIATE. ENSURE TID (1050 KCALS, 60 G PROTEIN) TO PROMOTE WOUND HEALING. MONITOR PO INTAKE AND ENCOURAGE SUPPLEMENTS.
--- NOTE | 2023-09-09 13:26 | HO.PM.IMPN ---
Subjective Subjective Date of Service: 09/09/23 Interval History: Seen and examined this morning No overnight events Follow-up for FEDER[place], failure to thrive Healthcare proxy has been invoked Review of Systems Review of Systems: Yes all other systems are reviewed and are negative Constitutional Constitutional: Denies chills and Denies fever(s) Physical Exam Vital Signs: Vital Signs: Last Vital Signs Temp 98.2 F 09/09/23 07:10 Pulse 56 09/09/23 07:10 Resp 18 09/09/23 07:10 BP 158/78 H 09/09/23 07:10 Pulse Ox 94 09/09/23 07:10 O2 Del Method Room Air 09/09/23 07:10 BMI result Body Mass Index 20.5 Const: General: cooperative, comfortable, no acute distress, alert and awake Nutritional Appearance: average body habitus Orientation/consciousness: patient oriented x3 Resp: Effort & Inspection: normal respiratory effort Cardio: Rate: regular rate GI: Inspection: No distended Palpation (GI): Soft to palpation Neuro: General: patient oriented x3, moves all extremities and CN's II-XI intact bilaterally Extrem: General: Yes no pedal edema Objective Data Active Medications Acetaminophen (Acetaminophen 325 Mg Tablet) 650 mg PO Q6H PRN PRN Reason: Pain, Mild (Pain Scale 1-3) Allopurinol (Allopurinol 100 Mg Tablet) 100 mg PO DAILY [facility] Last Admin: 09/09/23 09:26 Dose: 100 mg Documented By: JANET Amlodipine Besylate (Amlodipine Besylate 5 Mg Tablet) 5 mg PO DAILY [facility]; Protocol Last Admin: 09/09/23 09:26 Dose: 5 mg Documented By: JANET Apixaban (Apixaban 5 Mg Tablet) 5 mg PO BID [facility] Last Admin: 09/09/23 09:26 Dose: 5 mg Documented By: JANET Atorvastatin Calcium (Atorvastatin Calcium 40 Mg Tablet) 40 mg PO DAILY [facility] Last Admin: 09/09/23 09:26 Dose: 40 mg Documented By: JANET Bupropion HCl (Bupropion Hcl Xl 150 Mg Tab.Er.24h) 150 mg PO DAILY [facility] Last Admin: 09/09/23 09:25 Dose: 150 mg Documented By: JANET Carvedilol (Carvedilol 12.5 Mg Tablet) 12.5 mg PO BID [facility]; Protocol Last Admin: 09/09/23 09:26 Dose: 12.5 mg Documented By: JANET Clonidine HCl (Clonidine Hcl 0.1 Mg Tablet) 0.1 mg PO TID [facility]; Protocol Last Admin: 09/09/23 09:25 Dose: 0.1 mg Documented By: JANET Clopidogrel Bisulfate (Clopidogrel Bisulfate 75 Mg Tablet) 75 mg PO DAILY [facility] Last Admin: 09/09/23 09:26 Dose: 75 mg Documented By: JANET Cyanocobalamin (Cyanocobalamin (Vitamin B-12) 1,000 Mcg Tablet) 1,000 mcg PO DAILY [facility] Last Admin: 09/09/23 09:26 Dose: Not Given Documented By: JANET Non-Admin Reason: Med Not Available Furosemide (Furosemide 40 Mg Tablet) 40 mg PO BID [facility]; Protocol Last Admin: 09/08/23 09:05 Dose: 40 mg Documented By: JOSE Hydralazine HCl (Hydralazine Hcl 50 Mg Tablet) 50 mg PO TID [facility]; Protocol Last Admin: 09/09/23 09:26 Dose: 50 mg Documented By: JANET Sodium Chloride (Ns) 1,000 mls @ 75 mls/hr IVCONT .[id number] [facility] Last Admin: 09/09/23 05:30 Dose: 75 mls/hr Documented By: CHEMA Isosorbide Mononitrate (Isosorbide Mononitrate 60 Mg Tab.Er.24h) 60 mg PO DAILY [facility]; Protocol Last Admin: 09/09/23 09:26 Dose: 60 mg Documented By: JANET Omeprazole (Omeprazole 20 Mg Capsule.Dr) 20 mg PO DAILY@0630 [facility] Last Admin: 09/09/23 05:38 Dose: 20 mg Documented By: CHEMA Ondansetron HCl (Ondansetron Odt 4 Mg Tab.Rapdis) 4 mg TRANSLINGU Q8H PRN PRN Reason: Nausea And Vomiting Last Admin: 09/06/23 23:09 Dose: 4 mg Documented By: EFRAIN Comments: Early admin ok per . Ondansetron HCl (Ondansetron Hcl 4 Mg/2 Ml Vial) 4 mg IVPUSH Q8H PRN PRN Reason: Nausea and Vomiting Last Admin: 09/08/23 11:37 Dose: 4 mg Documented By: JOSE Oxycodone HCl (Oxycodone Hcl Immed Release 15 Mg Tablet) 15 mg PO Q4H PRN PRN Reason: Pain, Moderate(Pain Scale 4-6) Last Admin: 09/09/23 09:25 Dose: 15 mg Documented By: JANET Potassium Chloride (Potassium Chloride Er 10 Meq Tablet.Er) 10 meq PO BEDTIME [facility] Last Admin: 09/09/23 09:25 Dose: 10 meq Documented By: JANET Potassium Chloride (Potassium Chloride Er 10 Meq Tablet.Er) 20 meq PO DAILY [facility] Last Admin: 09/09/23 09:25 Dose: 20 meq Documented By: JANET Sertraline HCl (Sertraline Hcl 100 Mg Tablet) 100 mg PO DAILY [facility] Last Admin: 09/09/23 09:25 Dose: 100 mg Documented By: JANET Sodium Chloride (0.9 % Sodium Chloride Flush 3 Ml Syringe) 3 ml IVFLUSH [facility] Last Admin: 09/09/23 07:25 Dose: Not Given Documented By: YANI Non-Admin Reason: IV Running Sodium Chloride (0.9 % Sodium Chloride Flush 3 Ml Syringe) 3 ml IVFLUSH [facility] Last Admin: 09/09/23 07:25 Dose: Not Given Documented By: YANI Non-Admin Reason: IV Running Spironolactone (Spironolactone 25 Mg Tablet) 25 mg PO DAILY [facility]; Protocol Last Admin: 09/08/23 09:07 Dose: 25 mg Documented By: JOSE Sucralfate (Sucralfate 1 Gm Tablet) 1 gm PO QIDACHS [facility] Last Admin: 09/09/23 12:06 Dose: Not Given Documented By: YANI Non-Admin Reason: Patient Asleep Vitamin D (Cholecalciferol (Vitamin D3) 25 Mcg Tablet) 50 mcg PO DAILY [facility] Last Admin: 09/09/23 09:26 Dose: 50 mcg Documented By: JANET Labs 09/08/23 05:36 09/09/23 08:32 Labs: Laboratory Results - last 24 hr 09/08/23 09/09/23 05:36 08:32 Anion Gap 14 Estim Creat Clear Calc 50.1 Estimated GFR 52 Random Glucose 131 H Calcium 9.3 Ferritin 85 Microbiology Microbiology Results: Microbiology 09/07/23 08:15 Blood Culture - Preliminary Blood - Venous No growth after 48 hours. 09/07/23 08:14 Blood Culture - Preliminary Blood - Venous No growth after 48 hours. Assessment and Plan (1) Cognitive impairment: Status: Acute (2) Anemia: Status: Acute Plan 68-year-old man admitted with weakness, failure to thrive, [place]. Found in his home covered in feces and urine. [place]ER[place] on CKD stage 3 Likely secondary to dehydration s/p IVF renal function improving Hold spironolactone, lasix follow bmp Failure to thrive Supportive care Physical therapy recommended long-term care Psychiatric consult - patient does not have capacity to make medical decisions, healthcare proxy has been invoked Normocytic anemia H/H stable,stool occult negative iron studies with low iron, normal TIBC, ferritin on low side will start iron supplementation Thrombocytopenia No baseline for comparison Follow CBC Hypertension Continue amlodipine, hydralazine, coreg, clonidine Atrial fibrillation, paroxysmal HR controlled On Eliquis and carvedilol Hyperlipidemia continue statin CAD continue BB, statin, imdur ?chf, unspecified aldactone and lasix on hold for [place]ER[place] (potassium supplementation on hold while diuretics on hold) No echocardiogram in system Appears compensated Mental health Continue zoloft, wellbutrin Chronic pain, continue home pain meds JOSE ALEJANDRO not on cpap DVT prophylaxis with Eliquis Full code dispo - house has been condemned, TBD Requires ongoing inpatient stay for [place]ER[place] on CKD stage 3 likely secondary to dehydration, failure to thrive and safe disposition Quality Stroke Does the patient have a stroke diagnosis?: No VTE Prior VTE?: No VTE Risk Level:: Medical - moderate - high VTE Device Contraindication: Treatment Not Indicated VTE Drug Contraindication: N/A - Med Ordered
[2023-09-09] MEDS: Acetaminophen 325 MG TABLET 650 MG PO (13:37)
--- NOTE | 2023-09-09 13:41 | P.CDIM_ITS ---
PROVIDER RESPONSE TEXT: To clarify, the appropriate diagnosis supported by the clinical indicators: Iron deficiency anemia: probable QUERY TEXT: PHYSICIAN'S DOCUMENTATION REQUEST Date of Query: 09/09/2023 07:52 AM EDT Patient Name: Iban Ballesteros Admit Date: 09/07/2023 Dear Candie Oliveros, A review of the medical record indicates additional documentation may be needed. Please review below and update the documentation accordingly. Clinical Indicators: Normocytic anemia H/H stable, stool occult negative Iron studies with low iron Iron: 29 L Based on the above, could you clarify which of the following is the most likely type of anemia you ar e evaluating, treating, and/or monitoring? Iron deficiency anemia possible, probable, suspected Other (explain) Clinically unable to determine (explain) Thank you, Isatu Shi, CCS, CDIS Use of terms such as suspected, likely, concern for, or probable (associated with a specific diagnosi s that is being evaluated, monitored, or treated as if it exists) are acceptable and can be coded in the inpatient se tting, when documented at the time of discharge. Please use your independent medical judgment in providing your response. THIS QUERY IS PART OF THE PERMANENT MEDICAL RECORD
--- NOTE | 2023-09-09 13:56 | P.CDIM_ITS ---
PROVIDER RESPONSE TEXT: To clarify, the appropriate diagnosis supported by the clinical indicators: Pressure Injury Stage 2 right ankle QUERY TEXT: PHYSICIAN'S DOCUMENTATION REQUEST Date of Query: 09/09/2023 08:35 AM EDT Patient Name: Iban Ballesteros Admit Date: 09/07/2023 Dear Candie Oliveros, A review of the medical record indicates additional documentation may be needed. Please review below and update the documentation accordingly. Clinical Indicators: Wound care nursing notes 09/07 - Right ankle pressure injury stage 2, present on arrival Foam dressing Based on the above, could you please provide further information regarding the ulcer/wound/injury: Pressure Injury Stage 2 right ankle Other (explain) Clinically unable to determine (explain) Thank you, Isatu Shi, CCS, CDIS Use of terms such as suspected, likely, concern for, or probable (associated with a specific diagnosi s that is being evaluated, monitored, or treated as if it exists) are acceptable and can be coded in the inpatient se tting, when documented at the time of discharge. Please use your independent medical judgment in providing your response. THIS QUERY IS PART OF THE PERMANENT MEDICAL RECORD
[2023-09-09 15:44] VITALS: BP 113/69; PULSE 58; RESP 16; TEMP 36.6; O2SAT 96
[2023-09-09] MEDS: ondansetron HCL 4 MG/2 ML VIAL IVPUSH (16:09)
[2023-09-09] MEDS: Ferrous Sulfate 324 MG TABLET.DR PO (16:09)
[2023-09-09 19:51] VITALS: BP 129/67; PULSE 63; RESP 18; TEMP 36.4; O2SAT 96
[2023-09-09 21:35] VITALS: BP 129/67
[2023-09-09 21:36] VITALS: BP 129/67; PULSE 63
[2023-09-09] MEDS: Melatonin 3 MG TABLET 6 MG PO (21:36)
[2023-09-09] MEDS: Docusate Sodium 100 MG CAPSULE PO (21:36)
[2023-09-09] MEDS: 0.9 % Sodium Chloride Flush 3 ML SYRINGE IVFLUSH (21:36)
[2023-09-10] VITALS (9 sets, daily range): BP systolic 115–143; BP diastolic 61–70; PULSE 50–58; RESP 17–20; TEMP 35.5–36.6; O2SAT 95–97
[2023-09-10] MEDS: oxyCODONE HCl Immed Release 15 MG TABLET PO ×5 (01:02→19:05)
[2023-09-10] MEDS: Omeprazole 20 MG CAPSULE.DR PO (05:33)
[2023-09-10 06:34] LABS: Anion Gap 10 (12-20); Blood Urea Nitrogen 27 mg/dL (9-16); Calcium 9.7 mg/dL (8.4-10.2); Carbon Dioxide 30 mmol/L (22-29); Chloride 101 mmol/L (96-108); Creatinine Clr Calc Pharmacy 40.8; Estimated Glomerular Filt Rate 41; Glucose Random 93 mg/dL (60-115); Sodium 137 mmol/L (135-145)
[2023-09-10] MEDS: Sucralfate 1 GM TABLET PO ×4 (07:45→20:22)
[2023-09-10] MEDS: Ferrous Sulfate 324 MG TABLET.DR PO ×2 (07:45→16:27)
[2023-09-10] MEDS: 0.9 % Sodium Chloride Flush 3 ML SYRINGE IVFLUSH ×3 (07:47→20:32)
[2023-09-10] MEDS: Clopidogrel Bisulfate 75 MG TABLET PO (09:49)
[2023-09-10] MEDS: Cholecalciferol (Vitamin D3) 25 MCG TABLET 50 MCG PO (09:49)
[2023-09-10] MEDS: Sertraline HCL 100 MG TABLET PO (09:49)
[2023-09-10] MEDS: Apixaban 5 MG TABLET PO ×2 (09:49→20:21)
[2023-09-10] MEDS: Atorvastatin Calcium 40 MG TABLET PO (09:49)
[2023-09-10] MEDS: buPROPion HCl XL 150 MG TAB.ER.24H PO (09:49)
[2023-09-10] MEDS: allopurinoL 100 MG TABLET PO (09:49)
[2023-09-10] MEDS: Cyanocobalamin (Vitamin B-12) 1,000 MCG TABLET 1000 MCG PO (09:50)
[2023-09-10] MEDS: hydrALAZINE HCl 50 MG TABLET PO ×3 (09:51→20:21)
[2023-09-10] MEDS: Isosorbide Mononitrate 60 MG TAB.ER.24H PO (09:51)
[2023-09-10] MEDS: cloNIDine HCL 0.1 MG TABLET PO ×3 (09:51→20:21)
[2023-09-10] MEDS: amLODIPine Besylate 5 MG TABLET PO (09:51)
--- NOTE | 2023-09-10 10:59 | HO.PM.IMPN ---
Subjective Subjective Date of Service: 09/10/23 Interval History: Seen and examined this morning No overnight events Follow-up for [place], failure to thrive Healthcare proxy has been invoked Review of Systems Review of Systems: Yes all other systems are reviewed and are negative Constitutional Constitutional: Denies chills and Denies fever(s) Physical Exam Vital Signs: Vital Signs: Last Vital Signs Temp 97 F 09/10/23 07:48 Pulse 50 09/10/23 09:50 Resp 17 09/10/23 06:51 BP 143/63 H 09/10/23 09:51 Pulse Ox 95 09/10/23 06:51 O2 Del Method Room Air 09/10/23 06:51 BMI result Body Mass Index 20.5 Appearing in no acute distress lung sounds are clear to auscultation heart regular rate rhythm, clear S1, S2 positive bowel sounds, abdomen is soft, nontender neuro patient is alert to self and place Objective Data Active Medications Acetaminophen (Acetaminophen 325 Mg Tablet) 650 mg PO Q6H PRN PRN Reason: Pain, Mild (Pain Scale 1-3) Last Admin: 09/09/23 13:37 Dose: 650 mg Documented By: JANET Allopurinol (Allopurinol 100 Mg Tablet) 100 mg PO DAILY [facility] Last Admin: 09/10/23 09:49 Dose: 100 mg Documented By: ANEESH Amlodipine Besylate (Amlodipine Besylate 5 Mg Tablet) 5 mg PO DAILY [facility]; Protocol Last Admin: 09/10/23 09:51 Dose: 5 mg Documented By: ANEESH Apixaban (Apixaban 5 Mg Tablet) 5 mg PO BID [facility] Last Admin: 09/10/23 09:49 Dose: 5 mg Documented By: ANEESH Atorvastatin Calcium (Atorvastatin Calcium 40 Mg Tablet) 40 mg PO DAILY [facility] Last Admin: 09/10/23 09:49 Dose: 40 mg Documented By: ANEESH Bupropion HCl (Bupropion Hcl Xl 150 Mg Tab.Er.24h) 150 mg PO DAILY [facility] Last Admin: 09/10/23 09:49 Dose: 150 mg Documented By: ANEESH Carvedilol (Carvedilol 12.5 Mg Tablet) 12.5 mg PO BID [facility]; Protocol Last Admin: 09/10/23 09:50 Dose: Not Given Documented By: ANEESH Non-Admin Reason: Decreased Heart Rate Clonidine HCl (Clonidine Hcl 0.1 Mg Tablet) 0.1 mg PO TID [facility]; Protocol Last Admin: 09/10/23 09:51 Dose: 0.1 mg Documented By: ANEESH Clopidogrel Bisulfate (Clopidogrel Bisulfate 75 Mg Tablet) 75 mg PO DAILY [facility] Last Admin: 09/10/23 09:49 Dose: 75 mg Documented By: ANEESH Cyanocobalamin (Cyanocobalamin (Vitamin B-12) 1,000 Mcg Tablet) 1,000 mcg PO DAILY [facility] Last Admin: 09/10/23 09:50 Dose: 1,000 mcg Documented By: ANEESH Docusate Sodium (Docusate Sodium 100 Mg Capsule) 100 mg PO BEDTIME [facility] Last Admin: 09/09/23 21:36 Dose: 100 mg Documented By: EMILIANA Ferrous Sulfate (Ferrous Sulfate 324 Mg Tablet.) 324 mg PO BIDWM [facility] Last Admin: 09/10/23 07:45 Dose: 324 mg Documented By: ANEESH Furosemide (Furosemide 40 Mg Tablet) 40 mg PO BID [facility]; Protocol Last Admin: 09/08/23 09:05 Dose: 40 mg Documented By: JOSE Hydralazine HCl (Hydralazine Hcl 50 Mg Tablet) 50 mg PO TID [facility]; Protocol Last Admin: 09/10/23 09:51 Dose: 50 mg Documented By: ANEESH Isosorbide Mononitrate (Isosorbide Mononitrate 60 Mg Tab.Er.24h) 60 mg PO DAILY [facility]; Protocol Last Admin: 09/10/23 09:51 Dose: 60 mg Documented By: ANEESH Melatonin (Melatonin 3 Mg Tablet) 6 mg PO BEDTIME PRN PRN Reason: Insomnia Last Admin: 09/09/23 21:36 Dose: 6 mg Documented By: EMILIANA Omeprazole (Omeprazole 20 Mg Capsule.) 20 mg PO DAILY@0630 [facility] Last Admin: 09/10/23 05:33 Dose: 20 mg Documented By: EMILIANA Ondansetron HCl (Ondansetron Odt 4 Mg Tab.Rapdis) 4 mg TRANSLINGU Q8H PRN PRN Reason: Nausea And Vomiting Last Admin: 09/06/23 23:09 Dose: 4 mg Documented By: HO.RISLEYS Comments: Early admin ok per MD. Ondansetron HCl (Ondansetron Hcl 4 Mg/2 Ml Vial) 4 mg IVPUSH Q8H PRN PRN Reason: Nausea and Vomiting Last Admin: 09/09/23 16:09 Dose: 4 mg Documented By: COTTRICE Oxycodone HCl (Oxycodone Hcl Immed Release 15 Mg Tablet) 15 mg PO Q4H PRN PRN Reason: Pain, Moderate(Pain Scale 4-6) Last Admin: 09/10/23 09:48 Dose: 15 mg Documented By: ANEESH Potassium Chloride (Potassium Chloride Er 10 Meq Tablet.Er) 10 meq PO BEDTIME [facility] Last Admin: 09/09/23 09:25 Dose: 10 meq Documented By: JANET Potassium Chloride (Potassium Chloride Er 10 Meq Tablet.Er) 20 meq PO DAILY [facility] Last Admin: 09/09/23 09:25 Dose: 20 meq Documented By: JANET Sertraline HCl (Sertraline Hcl 100 Mg Tablet) 100 mg PO DAILY [facility] Last Admin: 09/10/23 09:49 Dose: 100 mg Documented By: ANEESH Sodium Chloride (0.9 % Sodium Chloride Flush 3 Ml Syringe) [facility] Last Admin: 09/10/23 07:47 Dose: 3 ml Documented By: ANEESH Sodium Chloride (0.9 % Sodium Chloride Flush 3 Ml Syringe) 3 ml IVFLUSH [facility] Last Admin: 09/10/23 07:47 Dose: Not Given Documented By: ANEESH Non-Admin Reason: Duplicate Order Spironolactone (Spironolactone 25 Mg Tablet) 25 mg PO DAILY [facility]; Protocol Last Admin: 09/08/23 09:07 Dose: 25 mg Documented By: JOSE Sucralfate (Sucralfate 1 Gm Tablet) 1 gm PO QIDACHS [facility] Last Admin: 09/10/23 07:45 Dose: 1 gm Documented By: ANEESH Vitamin D (Cholecalciferol (Vitamin D3) 25 Mcg Tablet) 50 mcg PO DAILY [facility] Last Admin: 09/10/23 09:49 Dose: 50 mcg Documented By: ANEESH Labs 09/08/23 05:36 09/10/23 05:41 Labs: Laboratory Results - last 24 hr 09/10/23 05:41 Anion Gap 10 L Estim Creat Clear Calc 40.8 Estimated GFR 41 Random Glucose 93 Calcium 9.7 Microbiology Microbiology Results: Microbiology 09/07/23 08:15 Blood Culture - Preliminary Blood - Venous No growth after 48 hours. 09/07/23 08:14 Blood Culture - Preliminary Blood - Venous No growth after 48 hours. Assessment and Plan (1) Cognitive impairment: Status: Acute (2) Anemia: Status: Acute Plan 68-year-old man admitted with weakness, failure to thrive, [place]. Found in his home covered in feces and urine. [place] on CKD stage 3 Likely secondary to dehydration s/p IVF renal function improving Hold spironolactone, lasix follow bmp Failure to thrive Supportive care Physical therapy recommended long-term care Psychiatric consult - patient does not have capacity to make medical decisions, healthcare proxy has been invoked Normocytic anemia H/H stable,stool occult negative iron studies with low iron, normal TIBC, ferritin on low side continue iron supplementation Thrombocytopenia No baseline for comparison Follow CBC Hypertension Continue amlodipine, hydralazine, coreg, clonidine Atrial fibrillation, paroxysmal HR controlled On Eliquis and carvedilol Hyperlipidemia continue statin CAD continue BB, statin, imdur CHF, unspecified aldactone and lasix on hold for [place] (potassium supplementation on hold while diuretics on hold) No echocardiogram in system Appears compensated Mental health Continue zoloft, wellbutrin Chronic pain, continue home pain meds JOSE ALEJANDRO not on cpap DVT prophylaxis with Eliquis Full code Attending Dr. Benny silva has been condemned, TBD Requires ongoing inpatient stay for [place] on CKD stage 3 likely secondary to dehydration, failure to thrive and safe disposition Quality Stroke Does the patient have a stroke diagnosis?: No VTE Prior VTE?: No VTE Risk Level:: Medical - moderate - high VTE Device Contraindication: Treatment Not Indicated VTE Drug Contraindication: N/A - Med Ordered
[2023-09-10] MEDS: ondansetron HCL 4 MG/2 ML VIAL IVPUSH (16:27)
[2023-09-10] MEDS: Melatonin 3 MG TABLET 6 MG PO (20:22)
[2023-09-10] MEDS: Docusate Sodium 100 MG CAPSULE PO (20:22)
[2023-09-11] VITALS (11 sets, daily range): BP systolic 114–142; BP diastolic 59–86; PULSE 50–68; RESP 16–20; TEMP 36.3–37; O2SAT 95–96
[2023-09-11] MEDS: oxyCODONE HCl Immed Release 15 MG TABLET PO ×5 (01:31→23:58)
[2023-09-11] MEDS: Omeprazole 20 MG CAPSULE.DR PO (05:33)
[2023-09-11] MEDS: hydrALAZINE HCl 50 MG TABLET PO ×3 (07:40→20:41)
[2023-09-11] MEDS: amLODIPine Besylate 5 MG TABLET PO (07:41)
[2023-09-11] MEDS: Clopidogrel Bisulfate 75 MG TABLET PO (07:41)
[2023-09-11] MEDS: Ferrous Sulfate 324 MG TABLET.DR PO ×2 (07:41→15:48)
[2023-09-11] MEDS: Atorvastatin Calcium 40 MG TABLET PO (07:41)
[2023-09-11] MEDS: Cyanocobalamin (Vitamin B-12) 1,000 MCG TABLET 1000 MCG PO (07:41)
[2023-09-11] MEDS: allopurinoL 100 MG TABLET PO (07:41)
[2023-09-11] MEDS: Isosorbide Mononitrate 60 MG TAB.ER.24H PO (07:41)
[2023-09-11] MEDS: Sucralfate 1 GM TABLET PO ×4 (07:41→20:41)
[2023-09-11] MEDS: Cholecalciferol (Vitamin D3) 25 MCG TABLET 50 MCG PO (07:41)
[2023-09-11] MEDS: buPROPion HCl XL 150 MG TAB.ER.24H PO (07:42)
[2023-09-11] MEDS: cloNIDine HCL 0.1 MG TABLET PO ×3 (07:42→20:41)
[2023-09-11] MEDS: Sertraline HCL 100 MG TABLET PO (07:42)
[2023-09-11] MEDS: Apixaban 5 MG TABLET PO ×2 (07:42→20:39)
[2023-09-11] MEDS: 0.9 % Sodium Chloride Flush 3 ML SYRINGE IVFLUSH ×3 (07:45→20:32)
--- NOTE | 2023-09-11 10:15 | P.PNIM_ITS ---
Subjective Subjective Date of Service: 09/11/23 Interval History: Seen and examined this morning No overnight events Follow-up for FEDERICO, failure to thrive Healthcare proxy has been invoked Review of Systems Review of Systems: Yes all other systems are reviewed and are negative Constitutional Constitutional: Denies chills and Denies fever(s) Physical Exam 2 Vital Signs: Vital Signs: Last Vital Signs Temp 97.9 F 09/11/23 06:53 Pulse 50 09/11/23 07:36 Resp 16 09/11/23 06:53 BP 114/59 L 09/11/23 07:42 Pulse Ox 95 09/11/23 06:53 O2 Del Method Room Air 09/11/23 06:53 BMI result Body Mass Index 20.5 Appearing in no acute distress lung sounds are clear to auscultation heart regular rate rhythm, clear S1, S2 positive bowel sounds, abdomen is soft, nontender neuro patient is alert, confused Objective Data Active Medications Acetaminophen (Acetaminophen 325 Mg Tablet) 650 mg PO Q6H PRN PRN Reason: Pain, Mild (Pain Scale 1-3) Last Admin: 09/09/23 13:37 Dose: 650 mg Documented By: JANET Allopurinol (Allopurinol 100 Mg Tablet) 100 mg PO DAILY [facility] Last Admin: 09/11/23 07:41 Dose: 100 mg Documented By: ANEESH Amlodipine Besylate (Amlodipine Besylate 5 Mg Tablet) 5 mg PO DAILY [facility]; Protocol Last Admin: 09/11/23 07:41 Dose: 5 mg Documented By: ANEESH Apixaban (Apixaban 5 Mg Tablet) 5 mg PO BID [facility] Last Admin: 09/11/23 07:42 Dose: 5 mg Documented By: ANEESH Atorvastatin Calcium (Atorvastatin Calcium 40 Mg Tablet) 40 mg PO DAILY [facility] Last Admin: 09/11/23 07:41 Dose: 40 mg Documented By: ANEESH Bupropion HCl (Bupropion Hcl Xl 150 Mg Tab.Er.24h) 150 mg PO DAILY [facility] Last Admin: 09/11/23 07:42 Dose: 150 mg Documented By: ANEESH Carvedilol (Carvedilol 12.5 Mg Tablet) 12.5 mg PO BID [facility]; Protocol Last Admin: 09/11/23 07:36 Dose: Not Given Documented By: ANEESH Non-Admin Reason: Decreased Heart Rate Clonidine HCl (Clonidine Hcl 0.1 Mg Tablet) 0.1 mg PO TID [facility]; Protocol Last Admin: 09/11/23 07:42 Dose: 0.1 mg Documented By: ANEESH Clopidogrel Bisulfate (Clopidogrel Bisulfate 75 Mg Tablet) 75 mg PO DAILY [facility] Last Admin: 09/11/23 07:41 Dose: 75 mg Documented By: ANEESH Cyanocobalamin (Cyanocobalamin (Vitamin B-12) 1,000 Mcg Tablet) 1,000 mcg PO DAILY [facility] Last Admin: 09/11/23 07:41 Dose: 1,000 mcg Documented By: ANEESH Docusate Sodium (Docusate Sodium 100 Mg Capsule) 100 mg PO BEDTIME [facility] Last Admin: 09/10/23 20:22 Dose: 100 mg Documented By: EMILIANA Ferrous Sulfate (Ferrous Sulfate 324 Mg Tablet.) 324 mg PO BIDWM [facility] Last Admin: 09/11/23 07:41 Dose: 324 mg Documented By: ANEESH Furosemide (Furosemide 40 Mg Tablet) 40 mg PO BID [facility]; Protocol Last Admin: 09/08/23 09:05 Dose: 40 mg Documented By: JOSE Hydralazine HCl (Hydralazine Hcl 50 Mg Tablet) 50 mg PO TID [facility]; Protocol Last Admin: 09/11/23 07:40 Dose: 50 mg Documented By: ANEESH Isosorbide Mononitrate (Isosorbide Mononitrate 60 Mg Tab.Er.24h) 60 mg PO DAILY [facility]; Protocol Last Admin: 09/11/23 07:41 Dose: 60 mg Documented By: ANEESH Melatonin (Melatonin 3 Mg Tablet) 6 mg PO BEDTIME PRN PRN Reason: Insomnia Last Admin: 09/10/23 20:22 Dose: 6 mg Documented By: EMILIANA Omeprazole (Omeprazole 20 Mg Capsule.) 20 mg PO DAILY@0630 [facility] Last Admin: 09/11/23 05:33 Dose: 20 mg Documented By: EMILIANA Ondansetron HCl (Ondansetron Odt 4 Mg Tab.Rapdis) 4 mg TRANSLINGU Q8H PRN PRN Reason: Nausea And Vomiting Last Admin: 09/06/23 23:09 Dose: 4 mg Documented By: EFRAIN Comments: Early admin ok per MD. Ondansetron HCl (Ondansetron Hcl 4 Mg/2 Ml Vial) 4 mg IVPUSH Q8H PRN PRN Reason: Nausea and Vomiting Last Admin: 09/10/23 16:27 Dose: 4 mg Documented By: ANEESH Oxycodone HCl (Oxycodone Hcl Immed Release 15 Mg Tablet) 15 mg PO Q4H PRN PRN Reason: Pain, Moderate(Pain Scale 4-6) Last Admin: 09/11/23 05:33 Dose: 15 mg Documented By: EMILIANA Potassium Chloride (Potassium Chloride Er 10 Meq Tablet.Er) 10 meq PO BEDTIME [facility] Last Admin: 09/09/23 09:25 Dose: 10 meq Documented By: JANET Potassium Chloride (Potassium Chloride Er 10 Meq Tablet.Er) 20 meq PO DAILY [facility] Last Admin: 09/09/23 09:25 Dose: 20 meq Documented By: JANET Sertraline HCl (Sertraline Hcl 100 Mg Tablet) 100 mg PO DAILY [facility] Last Admin: 09/11/23 07:42 Dose: 100 mg Documented By: ANEESH Sodium Chloride (0.9 % Sodium Chloride Flush 3 Ml Syringe) 3 ml IVFLUSH [facility] Last Admin: 09/11/23 07:45 Dose: 3 ml Documented By: ANEESH Sodium Chloride (0.9 % Sodium Chloride Flush 3 Ml Syringe) 3 ml IVFLUSH [facility] Last Admin: 09/11/23 07:45 Dose: Not Given Documented By: ANEESH Non-Admin Reason: Duplicate Order Spironolactone (Spironolactone 25 Mg Tablet) 25 mg PO DAILY [facility]; Protocol Last Admin: 09/08/23 09:07 Dose: 25 mg Documented By: JOSE Sucralfate (Sucralfate 1 Gm Tablet) 1 gm PO QIDACHS [facility] Last Admin: 09/11/23 07:41 Dose: 1 gm Documented By: ANEESH Vitamin D (Cholecalciferol (Vitamin D3) 25 Mcg Tablet) 50 mcg PO DAILY [facility] Last Admin: 09/11/23 07:41 Dose: 50 mcg Documented By: ANEESH Labs 09/08/23 05:36 09/10/23 05:41 Assessment and Plan (1) Cognitive impairment: Status: Acute (2) Anemia: Status: Acute Plan 68-year-old man admitted with weakness, failure to thrive, FEDER[place]. Found in his home covered in feces and urine. Failure to thrive Supportive care Physical therapy recommended long-term care Psychiatric consult - patient does not have capacity to make medical decisions, healthcare proxy has been invoked FEDERICO on CKD stage 3 Likely secondary to dehydration s/p IVF renal function improving Hold spironolactone, lasix follow bmp Normocytic anemia H/H stable,stool occult negative iron studies with low iron, normal TIBC, ferritin on low side continue iron supplementation Thrombocytopenia No baseline for comparison Follow CBC Hypertension Continue amlodipine, hydralazine, coreg, clonidine Atrial fibrillation, paroxysmal HR controlled On Eliquis and carvedilol Hyperlipidemia continue statin CAD continue BB, statin, imdur CHF, unspecified aldactone and lasix on hold for FEDERICO (potassium supplementation on hold while diuretics on hold) No echocardiogram in system Appears compensated Mental health Continue zoloft, wellbutrin Chronic pain, continue home pain meds JOSE ALEJANDRO not on cpap DVT prophylaxis with Eliquis Full code Attending Dr. Zapata dispo - house has been condemned, TBD Requires ongoing inpatient stay for FEDERICO on CKD stage 3 likely secondary to dehydration, failure to thrive and safe disposition Quality Stroke Does the patient have a stroke diagnosis?: No VTE Prior VTE?: No VTE Risk Level:: Medical - moderate - high VTE Device Contraindication: Treatment Not Indicated VTE Drug Contraindication: N/A - Med Ordered
[2023-09-11] MEDS: ondansetron HCL 4 MG/2 ML VIAL IVPUSH (10:22)
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
[2023-09-11] MEDS: Mineral OiL enema 133 ML ENEMA PR (16:21)
[2023-09-11] MEDS: Acetaminophen 325 MG TABLET 650 MG PO (20:31)
[2023-09-11] MEDS: Melatonin 3 MG TABLET 6 MG PO (20:31)
[2023-09-11] MEDS: carvediloL 12.5 MG TABLET PO (20:39)
[2023-09-11] MEDS: Docusate Sodium 100 MG CAPSULE PO (20:41)
[2023-09-12] VITALS (7 sets, daily range): BP systolic 123–142; BP diastolic 64–78; PULSE 54–67; RESP 16–19; TEMP 35.8–36.6; O2SAT 94–95
[2023-09-12] MEDS: Omeprazole 20 MG CAPSULE.DR PO (06:02)
[2023-09-12] MEDS: oxyCODONE HCl Immed Release 15 MG TABLET PO ×6 (06:03→23:19)
--- NOTE | 2023-09-12 08:35 | HO.PM.IMPN ---
Subjective Subjective Date of Service: 09/12/23 Interval History: Seen and examined this morning No overnight events Follow-up for FEDER[place], failure to thrive Healthcare proxy has been invoked Review of Systems Review of Systems: Yes all other systems are reviewed and are negative Constitutional Constitutional: Denies chills and Denies fever(s) Physical Exam Vital Signs: Vital Signs: Last Vital Signs Temp 98 F 09/12/23 06:53 Pulse 56 09/12/23 06:53 Resp 18 09/12/23 06:53 BP 125/73 09/12/23 06:53 Pulse Ox 94 09/12/23 06:53 O2 Del Method Room Air 09/12/23 06:53 BMI result Body Mass Index 20.5 alert to self LSCTA ABD soft Objective Data Active Medications Acetaminophen (Acetaminophen 325 Mg Tablet) 650 mg PO Q6H PRN PRN Reason: Pain, Mild (Pain Scale 1-3) Last Admin: 09/11/23 20:31 Dose: 650 mg Documented By: SHERITA Allopurinol (Allopurinol 100 Mg Tablet) 100 mg PO DAILY [facility] Last Admin: 09/11/23 07:41 Dose: 100 mg Documented By: ANEESH Amlodipine Besylate (Amlodipine Besylate 5 Mg Tablet) 5 mg PO DAILY [facility]; Protocol Last Admin: 09/11/23 07:41 Dose: 5 mg Documented By: ANEESH Apixaban (Apixaban 5 Mg Tablet) 5 mg PO BID [facility] Last Admin: 09/11/23 20:39 Dose: 5 mg Documented By: SHERITA Atorvastatin Calcium (Atorvastatin Calcium 40 Mg Tablet) 40 mg PO DAILY [facility] Last Admin: 09/11/23 07:41 Dose: 40 mg Documented By: ANEESH Bupropion HCl (Bupropion Hcl Xl 150 Mg Tab.Er.24h) 150 mg PO DAILY [facility] Last Admin: 09/11/23 07:42 Dose: 150 mg Documented By: ANEESH Carvedilol (Carvedilol 12.5 Mg Tablet) 12.5 mg PO BID [facility]; Protocol Last Admin: 09/11/23 20:39 Dose: 12.5 mg Documented By: SHERITA Clonidine HCl (Clonidine Hcl 0.1 Mg Tablet) 0.1 mg PO TID [facility]; Protocol Last Admin: 09/11/23 20:41 Dose: 0.1 mg Documented By: SHERITA Clopidogrel Bisulfate (Clopidogrel Bisulfate 75 Mg Tablet) 75 mg PO DAILY [facility] Last Admin: 09/11/23 07:41 Dose: 75 mg Documented By: ANEESH Cyanocobalamin (Cyanocobalamin (Vitamin B-12) 1,000 Mcg Tablet) 1,000 mcg PO DAILY [facility] Last Admin: 09/11/23 07:41 Dose: 1,000 mcg Documented By: ANEESH Docusate Sodium (Docusate Sodium 100 Mg Capsule) 100 mg PO BEDTIME [facility] Last Admin: 09/11/23 20:41 Dose: 100 mg Documented By: SHERITA Ferrous Sulfate (Ferrous Sulfate 324 Mg Tablet.) 324 mg PO BIDWM [facility] Last Admin: 09/11/23 15:48 Dose: 324 mg Documented By: ANEESH Furosemide (Furosemide 40 Mg Tablet) 40 mg PO BID [facility]; Protocol Last Admin: 09/08/23 09:05 Dose: 40 mg Documented By: JOSE Hydralazine HCl (Hydralazine Hcl 50 Mg Tablet) 50 mg PO TID [facility]; Protocol Last Admin: 09/11/23 20:41 Dose: 50 mg Documented By: SHERITA Isosorbide Mononitrate (Isosorbide Mononitrate 60 Mg Tab.Er.24h) 60 mg PO DAILY [facility]; Protocol Last Admin: 09/11/23 07:41 Dose: 60 mg Documented By: ANEESH Melatonin (Melatonin 3 Mg Tablet) 6 mg PO BEDTIME PRN PRN Reason: Insomnia Last Admin: 09/11/23 20:31 Dose: 6 mg Documented By: SHERITA Omeprazole (Omeprazole 20 Mg Capsule.) 20 mg PO DAILY@0630 [facility] Last Admin: 09/12/23 06:02 Dose: 20 mg Documented By: SHERITA Ondansetron HCl (Ondansetron Odt 4 Mg Tab.Rapdis) 4 mg TRANSLINGU Q8H PRN PRN Reason: Nausea And Vomiting Last Admin: 09/06/23 23:09 Dose: 4 mg Documented By: EFRAIN Comments: Early admin ok per . Ondansetron HCl (Ondansetron Hcl 4 Mg/2 Ml Vial) 4 mg IVPUSH Q8H PRN PRN Reason: Nausea and Vomiting Last Admin: 09/11/23 10:22 Dose: 4 mg Documented By: ANEESH Oxycodone HCl (Oxycodone Hcl Immed Release 15 Mg Tablet) 15 mg PO Q6H PRN PRN Reason: Pain, Moderate(Pain Scale 4-6) Last Admin: 09/12/23 06:03 Dose: 15 mg Documented By: SHERITA Polyethylene Glycol (Polyethylene Glycol 3350 17 Gm Powd.Pack) 17 gm PO DAILY PRN PRN Reason: constipation Potassium Chloride (Potassium Chloride Er 10 Meq Tablet.Er) 10 meq PO BEDTIME [facility] Last Admin: 09/09/23 09:25 Dose: 10 meq Documented By: JANET Potassium Chloride (Potassium Chloride Er 10 Meq Tablet.Er) 20 meq PO DAILY [facility] Last Admin: 09/09/23 09:25 Dose: 20 meq Documented By: JANET Sertraline HCl (Sertraline Hcl 100 Mg Tablet) 100 mg PO DAILY [facility] Last Admin: 09/11/23 07:42 Dose: 100 mg Documented By: ANEESH Sodium Chloride (0.9 % Sodium Chloride Flush 3 Ml Syringe) 3 ml IVFLUSH [facility] Last Admin: 09/11/23 20:32 Dose: 3 ml Documented By: SHERITA Sodium Chloride (0.9 % Sodium Chloride Flush 3 Ml Syringe) 3 ml IVFLUSH [facility] Last Admin: 09/12/23 08:23 Dose: Not Given Documented By: JANET Non-Admin Reason: Duplicate Order Spironolactone (Spironolactone 25 Mg Tablet) 25 mg PO DAILY [facility]; Protocol Last Admin: 09/08/23 09:07 Dose: 25 mg Documented By: JOSE Sucralfate (Sucralfate 1 Gm Tablet) 1 gm PO QIDACHS [facility] Last Admin: 09/11/23 20:41 Dose: 1 gm Documented By: SHERITA Vitamin D (Cholecalciferol (Vitamin D3) 25 Mcg Tablet) 50 mcg PO DAILY [facility] Last Admin: 09/11/23 07:41 Dose: 50 mcg Documented By: ANEESH Labs 09/08/23 05:36 09/10/23 05:41 Assessment and Plan (1) Cognitive impairment: Status: Acute (2) Anemia: Status: Acute Plan 68-year-old man admitted with weakness, failure to thrive, [place]. Found in his home covered in feces and urine. Failure to thrive Supportive care Physical therapy recommended long-term care Psychiatric consult - patient does not have capacity to make medical decisions, healthcare proxy has been invoked Plan for guardianship in process Chronic pain will continue home oxycodone 15 mg Q4hrs PCP said that they were weaning him down and he was currently at 90mg a day lidocaine patch to knees as needed FEDERICO on CKD stage 3 Likely secondary to dehydration s/p IVF renal function improving Hold spironolactone, lasix follow bmp Normocytic anemia H/H stable,stool occult negative iron studies with low iron, normal TIBC, ferritin on low side continue iron supplementation Thrombocytopenia No baseline for comparison Follow CBC weekly Hypertension Continue amlodipine, hydralazine, coreg, clonidine Atrial fibrillation, paroxysmal HR controlled On Eliquis and carvedilol Hyperlipidemia continue statin CAD continue BB, statin, imdur CHF, unspecified aldactone and lasix on hold for FEDERICO (potassium supplementation on hold while diuretics on hold) No echocardiogram in system Appears compensated Mental health Continue zoloft, wellbutrin JOSE ALEJANDRO not on cpap DVT prophylaxis with Eliquis Full code Attending Dr. Urbina Requires ongoing inpatient stay for process of guardianship with no safe disposition Quality Stroke Does the patient have a stroke diagnosis?: No VTE Prior VTE?: No VTE Risk Level:: Medical - moderate - high VTE Device Contraindication: Treatment Not Indicated VTE Drug Contraindication: N/A - Med Ordered
--- NOTE | 2023-09-12 08:44 | MHC.CM.PN ---
EMR REVIEWED, PT WILL NOW NEED [facility] [employer] PRIOR TO LTC PLACEMENT, CM DIRECTOR TO REACH OUT TO JACKY TO START PROCESS, CM WILL CON TO FOLLOW DC NEEDS.
[2023-09-12] MEDS: 0.9 % Sodium Chloride Flush 3 ML SYRINGE IVFLUSH ×3 (09:03→23:17)
[2023-09-12] MEDS: Cholecalciferol (Vitamin D3) 25 MCG TABLET 50 MCG PO (09:03)
[2023-09-12] MEDS: buPROPion HCl XL 150 MG TAB.ER.24H PO (09:03)
[2023-09-12] MEDS: cloNIDine HCL 0.1 MG TABLET PO ×3 (09:03→20:23)
[2023-09-12] MEDS: Ferrous Sulfate 324 MG TABLET.DR PO ×2 (09:04→16:09)
[2023-09-12] MEDS: Atorvastatin Calcium 40 MG TABLET PO (09:04)
[2023-09-12] MEDS: Clopidogrel Bisulfate 75 MG TABLET PO (09:04)
[2023-09-12] MEDS: Apixaban 5 MG TABLET PO ×2 (09:04→20:22)
[2023-09-12] MEDS: allopurinoL 100 MG TABLET PO (09:04)
[2023-09-12] MEDS: hydrALAZINE HCl 50 MG TABLET PO ×3 (09:04→20:22)
[2023-09-12] MEDS: Isosorbide Mononitrate 60 MG TAB.ER.24H PO (09:04)
[2023-09-12] MEDS: amLODIPine Besylate 5 MG TABLET PO (09:04)
[2023-09-12] MEDS: Sucralfate 1 GM TABLET PO ×4 (09:04→20:22)
[2023-09-12] MEDS: carvediloL 12.5 MG TABLET PO ×2 (09:04→20:22)
[2023-09-12] MEDS: Sertraline HCL 100 MG TABLET PO (09:04)
[2023-09-12] MEDS: Cyanocobalamin (Vitamin B-12) 1,000 MCG TABLET 1000 MCG PO (09:04)
[2023-09-12] MEDS: Ketorolac Tromethamine 15 MG/ML VIAL IVPUSH (11:28)
[2023-09-12] MEDS: Lidocaine 4 % Patch ADH..PATCH 2 PATCH TRANSDERMA (11:28)
--- NOTE | 2023-09-12 14:34 | MHC.CLN ---
F/U DIET=2 GRAM SODIUM-APPROPRIATE. DTI RIGHT HIP AND STAGE II RIGHT ANKLE. PO INTAKE USUALLY GOOD, 50-100%. ENSURE TID (1050 KCALS, 60 G PROTEIN) TO PROMOTE WOUND HEALING. MONITOR PO INTAKE AND ENCOURAGE SUPPLEMENTS.
[2023-09-12] MEDS: LORazepam 0.5 MG TABLET PO (17:13)
[2023-09-12] MEDS: Docusate Sodium 100 MG CAPSULE PO (20:22)
[2023-09-12] MEDS: Melatonin 3 MG TABLET 6 MG PO (20:27)
[2023-09-13] VITALS (10 sets, daily range): BP systolic 104–131; BP diastolic 59–74; PULSE 54–72; RESP 12–18; TEMP 36.1–36.5; O2SAT 94–96
--- NOTE | 2023-09-13 | ECG_ITS ---
Test Reason : cp Blood Pressure : / mmHG Vent. Rate : 055 BPM Atrial Rate : 000 BPM P-R Int : 000 ms QRS Dur : 094 ms QT Int : 508 ms P-R-T Axes : 000 024 100 degrees QTc Int : 485 ms Atrial fibrillation with slow ventricular response Nonspecific ST and T wave abnormality Prolonged QT Abnormal ECG When compared with ECG of 06-SEP-2023 10:47, No significant changes seen Referred By: Evelia Ricketts Electronically Signed By:JACK SOSA
[2023-09-13] MEDS: oxyCODONE HCl Immed Release 15 MG TABLET PO ×5 (03:20→21:35)
[2023-09-13 05:57] LABS: Anion Gap 14 (12-20); Blood Urea Nitrogen 45 mg/dL (9-16); Calcium 9.1 mg/dL (8.4-10.2); Carbon Dioxide 26 mmol/L (22-29); Chloride 100 mmol/L (96-108); Estimated Glomerular Filt Rate 33; Glucose Random 103 mg/dL (60-115); Potassium 4.1 mmol/L (3.3-5.1); Sodium 136 mmol/L (135-145)
[2023-09-13] MEDS: Omeprazole 20 MG CAPSULE.DR PO (05:58)
--- NOTE | 2023-09-13 08:46 | P.PNIM_ITS ---
Subjective Subjective Date of Service: 09/13/23 Interval History: Seen and examined this morning No overnight events Follow-up for FEDERICO, failure to thrive Healthcare proxy has been invoked Review of Systems Review of Systems: Yes all other systems are reviewed and are negative Constitutional Constitutional: Denies chills and Denies fever(s) Physical Exam 2 Vital Signs: Vital Signs: Last Vital Signs Temp 97.7 F 09/13/23 08:00 Pulse 72 09/13/23 08:00 Resp 12 09/13/23 08:00 BP 131/74 09/13/23 08:00 Pulse Ox 96 09/13/23 08:00 O2 Del Method Room Air 09/13/23 08:00 BMI result Body Mass Index 20.5 Alert and confused Objective Data Active Medications Acetaminophen (Acetaminophen 325 Mg Tablet) 650 mg PO Q6H PRN PRN Reason: Pain, Mild (Pain Scale 1-3) Last Admin: 09/11/23 20:31 Dose: 650 mg Documented By: SHERITA Allopurinol (Allopurinol 100 Mg Tablet) 100 mg PO DAILY [facility] Last Admin: 09/12/23 09:04 Dose: 100 mg Documented By: JANET Amlodipine Besylate (Amlodipine Besylate 5 Mg Tablet) 5 mg PO DAILY [facility]; Protocol Last Admin: 09/12/23 09:04 Dose: 5 mg Documented By: JANET Apixaban (Apixaban 5 Mg Tablet) 5 mg PO BID [facility] Last Admin: 09/12/23 20:22 Dose: 5 mg Documented By: EDWARDO Atorvastatin Calcium (Atorvastatin Calcium 40 Mg Tablet) 40 mg PO DAILY [facility] Last Admin: 09/12/23 09:04 Dose: 40 mg Documented By: JANET Bupropion HCl (Bupropion Hcl Xl 150 Mg Tab.Er.24h) 150 mg PO DAILY [facility] Last Admin: 09/12/23 09:03 Dose: 150 mg Documented By: JANET Carvedilol (Carvedilol 12.5 Mg Tablet) 12.5 mg PO BID [facility]; Protocol Last Admin: 09/12/23 20:22 Dose: 12.5 mg Documented By: EDWARDO Clonidine HCl (Clonidine Hcl 0.1 Mg Tablet) 0.1 mg PO TID [facility]; Protocol Last Admin: 09/12/23 20:23 Dose: 0.1 mg Documented By: EDWARDO Clopidogrel Bisulfate (Clopidogrel Bisulfate 75 Mg Tablet) 75 mg PO DAILY [facility] Last Admin: 09/12/23 09:04 Dose: 75 mg Documented By: JANET Cyanocobalamin (Cyanocobalamin (Vitamin B-12) 1,000 Mcg Tablet) 1,000 mcg PO DAILY [facility] Last Admin: 09/12/23 09:04 Dose: 1,000 mcg Documented By: JNAET Docusate Sodium (Docusate Sodium 100 Mg Capsule) 100 mg PO BEDTIME [facility] Last Admin: 09/12/23 20:22 Dose: 100 mg Documented By: EDWARDO Ferrous Sulfate (Ferrous Sulfate 324 Mg Tablet.) 324 mg PO BIDWM [facility] Last Admin: 09/12/23 16:09 Dose: 324 mg Documented By: EDWARDO Furosemide (Furosemide 40 Mg Tablet) 40 mg PO BID [facility]; Protocol Last Admin: 09/08/23 09:05 Dose: 40 mg Documented By: JOSE Hydralazine HCl (Hydralazine Hcl 50 Mg Tablet) 50 mg PO TID [facility]; Protocol Last Admin: 09/12/23 20:22 Dose: 50 mg Documented By: EDWARDO Sodium Chloride (Ns) 1,000 mls @ 100 mls/hr IVCONT .Q10H [facility] Isosorbide Mononitrate (Isosorbide Mononitrate 60 Mg Tab.Er.24h) 60 mg PO DAILY [facility]; Protocol Last Admin: 09/12/23 09:04 Dose: 60 mg Documented By: JANET Lidocaine (Lidocaine 4 % Patch Adh..Patch) 2 patch TRANSDERMA DAILY [facility]; Protocol Last Admin: 09/12/23 11:28 Dose: 2 patch Documented By: JANET Lorazepam (Lorazepam 0.5 Mg Tablet) 0.5 mg PO Q8H PRN PRN Reason: anxiety/restlessness Last Admin: 09/12/23 17:13 Dose: 0.5 mg Documented By: EDWARDO Melatonin (Melatonin 3 Mg Tablet) 6 mg PO BEDTIME PRN PRN Reason: Insomnia Last Admin: 09/12/23 20:27 Dose: 6 mg Documented By: EDWARDO Omeprazole (Omeprazole 20 Mg Capsule.) 20 mg PO DAILY@0630 [facility] Last Admin: 09/13/23 05:58 Dose: 20 mg Documented By: DOMENIC Ondansetron HCl (Ondansetron Odt 4 Mg Tab.Rapdis) 4 mg TRANSLINGU Q8H PRN PRN Reason: Nausea And Vomiting Last Admin: 09/06/23 23:09 Dose: 4 mg Documented By: EFRAIN Comments: Early admin ok per . Ondansetron HCl (Ondansetron Hcl 4 Mg/2 Ml Vial) 4 mg IVPUSH Q8H PRN PRN Reason: Nausea and Vomiting Last Admin: 09/11/23 10:22 Dose: 4 mg Documented By: ANEESH Oxycodone HCl (Oxycodone Hcl Immed Release 15 Mg Tablet) 15 mg PO Q4H PRN PRN Reason: Pain, Moderate(Pain Scale 4-6) Last Admin: 09/13/23 03:20 Dose: 15 mg Documented By: DOMENIC Polyethylene Glycol (Polyethylene Glycol 3350 17 Gm Powd.Pack) 17 gm PO DAILY PRN PRN Reason: constipation Potassium Chloride (Potassium Chloride Er 10 Meq Tablet.Er) 10 meq PO BEDTIME [facility] Last Admin: 09/09/23 09:25 Dose: 10 meq Documented By: JANET Potassium Chloride (Potassium Chloride Er 10 Meq Tablet.Er) 20 meq PO DAILY [facility] Last Admin: 09/09/23 09:25 Dose: 20 meq Documented By: JANET Sertraline HCl (Sertraline Hcl 100 Mg Tablet) 100 mg PO DAILY [facility] Last Admin: 09/12/23 09:04 Dose: 100 mg Documented By: JANET Sodium Chloride (0.9 % Sodium Chloride Flush 3 Ml Syringe) 3 ml IVFLUSH QSHIFT [facility] Last Admin: 09/12/23 23:17 Dose: 3 ml Documented By: DOMENIC Spironolactone (Spironolactone 25 Mg Tablet) 25 mg PO DAILY [facility]; Protocol Last Admin: 09/08/23 09:07 Dose: 25 mg Documented By: JOSE Sucralfate (Sucralfate 1 Gm Tablet) 1 gm PO QIDACHS [facility] Last Admin: 09/12/23 20:22 Dose: 1 gm Documented By: EDWARDO Vitamin D (Cholecalciferol (Vitamin D3) 25 Mcg Tablet) 50 mcg PO DAILY [facility] Last Admin: 09/12/23 09:03 Dose: 50 mcg Documented By: JANET Labs 09/08/23 05:36 09/13/23 05:36 Labs: Laboratory Results - last 24 hr 09/13/23 05:36 Anion Gap 14 Estim Creat Clear Calc 34.0 Estimated GFR 33 Random Glucose 103 Calcium 9.1 D Microbiology Microbiology Results: Microbiology 09/07/23 08:15 Blood Culture - Final Blood - Venous No growth after 5 days. 09/07/23 08:14 Blood Culture - Final Blood - Venous No growth after 5 days. Assessment and Plan (1) Cognitive impairment: Status: Acute (2) Anemia: Status: Acute Plan 68-year-old man admitted with weakness, failure to thrive, [place]. Found in his home covered in feces and urine. FEDERICO on CKD stage 3 Likely secondary to dehydration continue IVF renal function improving Hold spironolactone, lasix follow bmp Failure to thrive Supportive care Physical therapy recommended long-term care Psychiatric consult - patient does not have capacity to make medical decisions, healthcare proxy has been invoked Plan for guardianship in process Chronic pain will continue home oxycodone 15 mg Q4hrs PCP said that they were weaning him down and he was currently at 90mg a day lidocaine patch to knees as needed Normocytic anemia H/H stable,stool occult negative iron studies with low iron, normal TIBC, ferritin on low side continue iron supplementation Thrombocytopenia No baseline for comparison Follow CBC weekly Hypertension Continue amlodipine, hydralazine, coreg, clonidine Atrial fibrillation, paroxysmal HR controlled On Eliquis and carvedilol Hyperlipidemia continue statin CAD continue BB, statin, imdur CHF, unspecified aldactone and lasix on hold for FEDERICO (potassium supplementation on hold while diuretics on hold) No echocardiogram in system Appears compensated Mental health Continue zoloft, wellbutrin JOSE ALEJANDRO not on cpap DVT prophylaxis with Eliquis Full code Attending Dr. Urbina Requires ongoing inpatient stay for process of guardianship with no safe disposition Quality Stroke Does the patient have a stroke diagnosis?: No VTE Prior VTE?: No VTE Risk Level:: Medical - moderate - high VTE Device Contraindication: Treatment Not Indicated VTE Drug Contraindication: N/A - Med Ordered
[2023-09-13] MEDS: 0.9 % Sodium Chloride Flush 3 ML SYRINGE IVFLUSH (08:56)
[2023-09-13] MEDS: 0.9 % Sodium Chloride 1,000 ML 100 ML IVCONT ×2 (09:28→17:57)
[2023-09-13] MEDS: carvediloL 12.5 MG TABLET PO (09:28)
[2023-09-13] MEDS: Cholecalciferol (Vitamin D3) 25 MCG TABLET 50 MCG PO (09:30)
[2023-09-13] MEDS: Isosorbide Mononitrate 60 MG TAB.ER.24H PO (09:30)
[2023-09-13] MEDS: amLODIPine Besylate 5 MG TABLET PO (09:30)
[2023-09-13] MEDS: Cyanocobalamin (Vitamin B-12) 1,000 MCG TABLET 1000 MCG PO (09:30)
[2023-09-13] MEDS: buPROPion HCl XL 150 MG TAB.ER.24H PO (09:30)
[2023-09-13] MEDS: Atorvastatin Calcium 40 MG TABLET PO (09:30)
[2023-09-13] MEDS: Apixaban 5 MG TABLET PO ×2 (09:31→21:35)
[2023-09-13] MEDS: hydrALAZINE HCl 50 MG TABLET PO ×2 (09:31→15:17)
[2023-09-13] MEDS: Sertraline HCL 100 MG TABLET PO (09:31)
[2023-09-13] MEDS: Ferrous Sulfate 324 MG TABLET.DR PO ×2 (09:31→15:16)
[2023-09-13] MEDS: Clopidogrel Bisulfate 75 MG TABLET PO (09:31)
[2023-09-13] MEDS: cloNIDine HCL 0.1 MG TABLET PO ×3 (09:31→21:34)
[2023-09-13] MEDS: Sucralfate 1 GM TABLET PO ×4 (09:31→21:34)
[2023-09-13] MEDS: allopurinoL 100 MG TABLET PO (09:31)
[2023-09-13] MEDS: Lidocaine 4 % Patch ADH..PATCH 2 PATCH TRANSDERMA (09:36)
--- NOTE | 2023-09-13 10:50 | MHC.CM.PN ---
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 The home was re-inspected @ 0730, it has not been cleared for re-entry. The home needs further cleaning, sanitization & yard maintenance. the contact @ Public Health is Loly Choudhury. Additional call made to [facility] regarding HCP & grandson- he has not been arrested but charged with Class A possession & Elder Abuse- he will be summons to court. Call also made to [facility] in regard to patient- they were not aware of the above information and are still completing their investigation. Call placed to Jae re: filing for guardianship.
--- NOTE | 2023-09-13 11:34 | HO.WOUND ---
Wound Consult: Follow up 68yr old Male? admitted to [facility] on 09/07/23 - See progress notes and H&P for detailed history.? Wound consult follow up for Right Hip / Trochanter and Right Lateral ankle wounds POA.? Patient agreeable to assessment and photo documentation. He reports the mattress he slept on at home had a whole in it and he does not walk at baseline as of recently. He attributed the pressure injuries to favoring his right side at home and staying in a poor quality mattress at all times. Right hip trochanter - on admission Right hip trochanter - Todays assessment 09/13/23 Right hip trochanter Etiology: ??Resolving Deep Tissue Injury Present on Admission Wound Bed: dark purple maroon tissue over bony prominence slow to yudi tender to touch Goals of Treatment: ? Foam dressing to aid in pressure redistribution Right Lateral Ankle - - on admission Right Lateral Ankle - Todays assessment 09/13/23 Etiology: ??Resolving Stage 2 Pressure Injury Present on Admission Wound Bed:red scabbed tissue over bony prominence periwound with pink slow to yudi intact hyperpigmented tissue Goals of Treatment: ? Foam dressing to aid in pressure redistribution and moist wound healing No new topical orders needed at this time. Recommendations: 1. Turn and Reposition every 2 hours and as needed for patient comfort.? Use pillows or wedges to support off loading positions. 2. Off Load all bony prominences with use of pillows and heel boots if needed.? Apply Preventative foams where needed. ? 3. Monitor for incontinence and moisture control, use barrier creams when needed for prevention and treatment. 4. Provide adequate and supplemental nutrition.? 5. Order or Continue low air loss mattress. 6. When applicable maintain blood glucose levels per Providers order. 7. Right ankle and hip - Routine cleansing. Apply skin prep allow to dry. Cover with foam dressing peel back and assess Q shift and change every 3 days. Re-consult wound care Nurse for wound deterioration or wound changes.
[2023-09-13] MEDS: Acetaminophen 325 MG TABLET 650 MG PO (13:57)
--- NOTE | 2023-09-13 14:30 | PM.EVENT ---
Event Note Date of Service: 09/13/23 Event Note: Chest pain, EKG with afib, normal trop, likely msk, on oxycodone. Time Spent With Patient Time: Total time managing care of this patient today ____ minutes.
[2023-09-13 14:34] LABS: Troponin-I High Sensitivity 17.6 ng/L (<3.5-35.0)
[2023-09-13] MEDS: LORazepam 0.5 MG TABLET PO (21:33)
[2023-09-13] MEDS: Docusate Sodium 100 MG CAPSULE PO (21:34)
--- NOTE | 2023-09-13 23:35 | MHC.PIE ---
p; pt c/o pain 02/22. note; prn oxy given at 2135 i; dr overton notified e; will cont to monitor
[2023-09-14] VITALS (15 sets, daily range): BP systolic 114–134; BP diastolic 61–74; PULSE 55–76; RESP 16–18; TEMP 36.6–37.1; O2SAT 87–94
[2023-09-14] MEDS: oxyCODONE HCl Immed Release 15 MG TABLET PO ×5 (01:07→20:27)
[2023-09-14] MEDS: 0.9 % Sodium Chloride 1,000 ML 100 ML IVCONT (03:10)
[2023-09-14] MEDS: Omeprazole 20 MG CAPSULE.DR PO (05:44)
--- NOTE | 2023-09-14 07:52 | P.PNIM_ITS ---
Subjective Subjective Date of Service: 09/14/23 Interval History: Seen and examined this morning No overnight events Follow-up for FEDERICO, failure to thrive, anemia Healthcare proxy has been invoked Reports new dyspnea with minimal exertion getting out of bed to walker. No wheezing, lightheadedness, cp. Reports nausea and vomiting. No diarrhea., melena, or hematochezia. Reports last BM was 2 days ago. No abd pain reported. Afebile. No cough Review of Systems Review of Systems: Yes all other systems are reviewed and are negative Constitutional Constitutional: Denies chills and Denies fever(s) Physical Exam 2 Vital Signs: Vital Signs: Last Vital Signs Temp 98.3 F 09/14/23 04:00 Pulse 76 09/14/23 04:00 Resp 16 09/14/23 04:00 BP 125/68 09/14/23 04:00 Pulse Ox 92 09/14/23 04:59 O2 Del Method Nasal Cannula 09/14/23 04:59 O2 Flow Rate 2 09/14/23 04:59 BMI result Body Mass Index 20.5 Constitutional - Awake and Alert, No apparent distress Eyes - PERRLA, EOMI Cardiovascular - S1S2, RRR, No edema Respiratory - Normal lung expansion, Normal respiratory effort, No respiratory distress, scattered crackles bilaterally Gastrointestinal - mild diffuse ttp without rigidity. ND; +BS; No rebound or guarding Extremities - no calf tenderness bilaterally, no swelling Skin - Warm/Dry Neurological - Alert & oriented x3 Psychological - Appropriate affect Objective Data Active Medications Acetaminophen (Acetaminophen 325 Mg Tablet) 650 mg PO Q6H PRN PRN Reason: Pain, Mild (Pain Scale 1-3) Last Admin: 09/13/23 13:57 Dose: 650 mg Documented By: STACIE Allopurinol (Allopurinol 100 Mg Tablet) 100 mg PO DAILY [facility] Last Admin: 09/13/23 09:31 Dose: 100 mg Documented By: STACIE Amlodipine Besylate (Amlodipine Besylate 5 Mg Tablet) 5 mg PO DAILY [facility]; Protocol Last Admin: 09/13/23 09:30 Dose: 5 mg Documented By: STACIE Apixaban (Apixaban 5 Mg Tablet) 5 mg PO BID [facility] Last Admin: 09/13/23 21:35 Dose: 5 mg Documented By: DONALD Atorvastatin Calcium (Atorvastatin Calcium 40 Mg Tablet) 40 mg PO DAILY [facility] Last Admin: 09/13/23 09:30 Dose: 40 mg Documented By: STACIE Bupropion HCl (Bupropion Hcl Xl 150 Mg Tab.Er.24h) 150 mg PO DAILY [facility] Last Admin: 09/13/23 09:30 Dose: 150 mg Documented By: STACIE Carvedilol (Carvedilol 12.5 Mg Tablet) 12.5 mg PO BID [facility]; Protocol Last Admin: 09/13/23 20:50 Dose: Not Given Documented By: DONALD Non-Admin Reason: Decreased Heart Rate Clonidine HCl (Clonidine Hcl 0.1 Mg Tablet) 0.1 mg PO TID [facility]; Protocol Last Admin: 09/13/23 21:34 Dose: 0.1 mg Documented By: DONALD Clopidogrel Bisulfate (Clopidogrel Bisulfate 75 Mg Tablet) 75 mg PO DAILY [facility] Last Admin: 09/13/23 09:31 Dose: 75 mg Documented By: STACIE Cyanocobalamin (Cyanocobalamin (Vitamin B-12) 1,000 Mcg Tablet) 1,000 mcg PO DAILY [facility] Last Admin: 09/13/23 09:30 Dose: 1,000 mcg Documented By: STACIE Docusate Sodium (Docusate Sodium 100 Mg Capsule) 100 mg PO BEDTIME [facility] Last Admin: 09/13/23 21:34 Dose: 100 mg Documented By: DONALD Ferrous Sulfate (Ferrous Sulfate 324 Mg Tablet.) 324 mg PO BIDWM [facility] Last Admin: 09/13/23 15:16 Dose: 324 mg Documented By: STACIE Furosemide (Furosemide 40 Mg Tablet) 40 mg PO BID [facility]; Protocol Last Admin: 09/08/23 09:05 Dose: 40 mg Documented By: JOSE Hydralazine HCl (Hydralazine Hcl 50 Mg Tablet) 50 mg PO TID [facility]; Protocol Last Admin: 09/13/23 21:35 Dose: Not Given Documented By: DONALD Non-Admin Reason: soft bp Sodium Chloride (Ns) 1,000 mls @ 100 mls/hr IVCONT .Q10H [facility] Last Admin: 09/14/23 03:10 Dose: 100 mls/hr Documented By: DONALD Isosorbide Mononitrate (Isosorbide Mononitrate 60 Mg Tab.Er.24h) 60 mg PO DAILY [facility]; Protocol Last Admin: 09/13/23 09:30 Dose: 60 mg Documented By: STACIE Lidocaine (Lidocaine 4 % Patch Adh..Patch) 2 patch TRANSDERMA DAILY [facility]; Protocol Last Admin: 09/13/23 09:36 Dose: 2 patch Documented By: STACIE Lorazepam (Lorazepam 0.5 Mg Tablet) 0.5 mg PO Q8H PRN PRN Reason: anxiety/restlessness Last Admin: 09/13/23 21:33 Dose: 0.5 mg Documented By: DONALD Melatonin (Melatonin 3 Mg Tablet) 6 mg PO BEDTIME PRN PRN Reason: Insomnia Last Admin: 09/12/23 20:27 Dose: 6 mg Documented By: EDWARDO Omeprazole (Omeprazole 20 Mg Capsule.Dr) 20 mg PO DAILY@0630 [facility] Last Admin: 09/14/23 05:44 Dose: 20 mg Documented By: DONALD Ondansetron HCl (Ondansetron Odt 4 Mg Tab.Rapdis) 4 mg TRANSLINGU Q8H PRN PRN Reason: Nausea And Vomiting Last Admin: 09/06/23 23:09 Dose: 4 mg Documented By: EFRAIN Comments: Early admin ok per . Ondansetron HCl (Ondansetron Hcl 4 Mg/2 Ml Vial) 4 mg IVPUSH Q8H PRN PRN Reason: Nausea and Vomiting Last Admin: 09/11/23 10:22 Dose: 4 mg Documented By: ANEESH Oxycodone HCl (Oxycodone Hcl Immed Release 15 Mg Tablet) 15 mg PO Q4H PRN PRN Reason: Pain, Moderate(Pain Scale 4-6) Last Admin: 09/14/23 05:44 Dose: 15 mg Documented By: DONALD Polyethylene Glycol (Polyethylene Glycol 3350 17 Gm Powd.Pack) 17 gm PO DAILY PRN PRN Reason: constipation Potassium Chloride (Potassium Chloride Er 10 Meq Tablet.Er) 10 meq PO BEDTIME [facility] Last Admin: 09/09/23 09:25 Dose: 10 meq Documented By: JANET Potassium Chloride (Potassium Chloride Er 10 Meq Tablet.Er) 20 meq PO DAILY [facility] Last Admin: 09/09/23 09:25 Dose: 20 meq Documented By: JANET Sertraline HCl (Sertraline Hcl 100 Mg Tablet) 100 mg PO DAILY [facility] Last Admin: 09/13/23 09:31 Dose: 100 mg Documented By: STACIE Sodium Chloride (0.9 % Sodium Chloride Flush 3 Ml Syringe) 3 ml IVFLUSH QSHIFT [facility] Last Admin: 09/13/23 21:35 Dose: Not Given Documented By: DONALD Non-Admin Reason: IV Running Spironolactone (Spironolactone 25 Mg Tablet) 25 mg PO DAILY [facility]; Protocol Last Admin: 09/08/23 09:07 Dose: 25 mg Documented By: JOSE Sucralfate (Sucralfate 1 Gm Tablet) 1 gm PO QIDACHS [facility] Last Admin: 09/13/23 21:34 Dose: 1 gm Documented By: DONALD Vitamin D (Cholecalciferol (Vitamin D3) 25 Mcg Tablet) 50 mcg PO DAILY [facility] Last Admin: 09/13/23 09:30 Dose: 50 mcg Documented By: STACIE Labs 09/14/23 09:17 09/14/23 05:37 Labs: Laboratory Results - last 24 hr 09/13/23 09/14/23 13:47 05:37 Hold Purple Top SEE NOTE Troponin I High Sens 17.6 Assessment and Plan (1) Cognitive impairment: Status: Acute (2) Anemia: Status: Acute Plan 68-year-old man admitted with weakness, failure to thrive, FEDERICO. Found in his home covered in feces and urine. FEDERICO on CKD stage 3 Thought to be secondary to dehydration, but given new hicks with ivf initiation and held furosemide, suspect cardiorenal r/t volume overload Creat steadily increasing. Today 1.8, baseline 1.35 DC IVF Initiate Furosemide 40mg IV (09/13) Continue holding spironolactone and po lasix follow bmp HICKS CXR shows increased interstial markings, probably edema with trace left pleural effusion BNP ordered NO echo on file. Echo ordered Initiate lasix 40mg daily Cardiac diet Strict I&O N/V/Abd pain KUB negative for obstructive but shows significant stool burden H/H stable Ondansetron prn give fleet enema x1. Start bowel regimen given BID iron supplement monitor output Failure to thrive Supportive care Physical therapy recommended long-term care Psychiatric consult - patient does not have capacity to make medical decisions, healthcare proxy has been invoked Plan for guardianship in process Chronic pain will continue home oxycodone 15 mg Q4hrs PCP said that they were weaning him down and he was currently at 90mg a day lidocaine patch to knees as needed Normocytic anemia H/H stable,stool occult negative iron studies with low iron, normal TIBC, ferritin on low side continue iron supplementation. Initiate bowel regimen Thrombocytopenia No baseline for comparison Follow CBC weekly Hypertension Continue amlodipine, hydralazine, coreg, clonidine Atrial fibrillation, paroxysmal HR controlled On Eliquis and carvedilol Hyperlipidemia continue statin CAD continue BB, statin, imdur CHF, unspecified- see above aldactone and lasix on hold for FEDERICO. IV lasix started 09/13. Resume potassium supplement No echocardiogram in system Mental health Continue zoloft, wellbutrin JOSE ALEJANDRO not on cpap DVT prophylaxis with Eliquis Full code d/w Dr. Urbina Requires ongoing inpatient stay for process of guardianship with no safe disposition , now with suspectd chf exacberation requiring iv diuresis and close monitoring of renal fx and lytes Quality Stroke Does the patient have a stroke diagnosis?: No VTE Prior VTE?: No VTE Risk Level:: Medical - moderate - high VTE Device Contraindication: Treatment Not Indicated VTE Drug Contraindication: N/A - Med Ordered
[2023-09-14 07:56] LABS: Anion Gap 15 (12-20); Blood Urea Nitrogen 43 mg/dL (9-16); Calcium 8.7 mg/dL (8.4-10.2); Carbon Dioxide 22 mmol/L (22-29); Chloride 103 mmol/L (96-108); Estimated Glomerular Filt Rate 37; Glucose Random 100 mg/dL (60-115); Potassium 4.2 mmol/L (3.3-5.1); Sodium 136 mmol/L (135-145)
[2023-09-14] MEDS: carvediloL 12.5 MG TABLET PO ×2 (07:59→20:29)
[2023-09-14] MEDS: amLODIPine Besylate 5 MG TABLET PO (07:59)
[2023-09-14] MEDS: Sertraline HCL 100 MG TABLET PO (07:59)
[2023-09-14] MEDS: Sucralfate 1 GM TABLET PO ×4 (07:59→20:25)
[2023-09-14] MEDS: Cyanocobalamin (Vitamin B-12) 1,000 MCG TABLET 1000 MCG PO (07:59)
[2023-09-14] MEDS: Atorvastatin Calcium 40 MG TABLET PO (07:59)
[2023-09-14] MEDS: Isosorbide Mononitrate 60 MG TAB.ER.24H PO (08:00)
[2023-09-14] MEDS: Clopidogrel Bisulfate 75 MG TABLET PO (08:01)
[2023-09-14] MEDS: Apixaban 5 MG TABLET PO ×2 (08:01→20:26)
[2023-09-14] MEDS: Ferrous Sulfate 324 MG TABLET.DR PO ×2 (08:01→16:19)
[2023-09-14] MEDS: buPROPion HCl XL 150 MG TAB.ER.24H PO (08:01)
[2023-09-14] MEDS: Cholecalciferol (Vitamin D3) 25 MCG TABLET 50 MCG PO (08:01)
[2023-09-14] MEDS: cloNIDine HCL 0.1 MG TABLET PO ×3 (08:01→20:28)
[2023-09-14] MEDS: allopurinoL 100 MG TABLET PO (08:02)
[2023-09-14] MEDS: Lidocaine 4 % Patch ADH..PATCH 2 PATCH TRANSDERMA (08:02)
[2023-09-14] MEDS: hydrALAZINE HCl 50 MG TABLET PO ×3 (08:02→20:29)
[2023-09-14] MEDS: ondansetron HCL 4 MG/2 ML VIAL IVPUSH (09:22)
[2023-09-14 10:08] LABS: MANUAL DIFF FLAG NO
[2023-09-14 10:12] LABS: Basophils Percent Auto 0.4 % (0-2); Eosinophils Percent Auto 1.1 % (0-4); Hematocrit 29.4 % (42.0-52.0); Hemoglobin 9.7 g/dl (14.0-18.0); Imm Gran Abs Auto 0.01 X10*3/uL (0.00-0.03); Imm Gran Pct Auto 0.4 % (0.0-0.4); Lymphocytes Absolute Auto 0.5 X10*3/uL (1.2-4.9); Lymphocytes Percent Auto 16.9 % (20-40); Mean Corpuscular Hemoglobin 28.2 pg (27.0-33.0); Mean Corpuscular Volume 85.5 fL (80.0-98.0); Mean Platelet Volume 11.3 fL (9.4-12.4); Monocytes Absolute Auto 0.4 X10*3/uL (0.1-1.2); Monocytes Percent Auto 14.8 % (2-11); Neutrophils Absolute Auto 1.9 x10*3/uL (2.0-8.3); Neutrophils Percent Auto 66.4 % (45-73); Platelet Count 87 X10*3/uL (160-400); Red Blood Count 3.44 X10*6/uL (4.60-5.80); Red Cell Distribution Width 16.8 % (11.0-16.0); White Blood Count 2.8 X10*3/uL (4.8-10.8)
--- NOTE | 2023-09-14 11:17 | MHC.CLN ---
F/U DIET=2 GRAM SODIUM-APPROPRIATE. ENSURE TID (1050 KCALS, 60 G PROTEIN) TO PROMOTE WOUND HEALING. DTI RIGHT HIP AND STAGE II RIGHT ANKLE. PO INTAKE USUALLY GOOD, 75-100%. MONITOR PO INTAKE AND ENCOURAGE SUPPLEMENTS.
--- NOTE | 2023-09-14 12:04 | MHC.CM.PN ---
Per MD rounds no DC today. Patient continues with Nausea, vomiting and dizziness. DP guardianship + placement LTC via BLS.
[2023-09-14] MEDS: LORazepam 0.5 MG TABLET PO ×2 (12:37→23:33)
--- NOTE | 2023-09-14 12:57 | CA_ITS ---
Transthoracic Echocardiogram Patient (Last, First, Middle): Iban Ballesteros E Gender: Male Date of : 1955 Age: 68 Procedure Date: 09/14/2023 Procedure Type: Transthoracic Echocardiogram Location: S3E Height: 182.88 cm Weight: 68.49 kg BSA: 1.89 m2 Heart Rate: bpm BP: 114 / 64 mmHg Plumber And Tinner: KERON Referring MD: Amarilys HANKINS Symptoms: chf exacerbation Study Quality: Adequate ECG Rhythm: Atrial flutter Conclusions: - The left ventricular systolic function is normal. The calculated ejection fraction is 65% by biplane method. - There is moderately increased left ventricular wall thickness. - There is mild calcification of the aortic valve. - There is moderate mitral annular calcification. There is mild mitral valve regurgitation. - There is mild to moderate tricuspid valve regurgitation. - Severe pulmonary hypertension is present. Findings Left Ventricle Normal left ventricular cavity size. There is moderately increased left ventricular wall thickness. The left ventricular systolic function is normal. The calculated ejection fraction is 65% by biplane method. There is no evidence of regional wall motion abnormalities. Diastolic function is indeterminate on the basis of available data. LV peak GLS -13.1%. Right Ventricle Mildly increased right ventricular cavity size. There is mildly decreased right ventricular systolic function. Atria Severe biatrial enlargement. Aortic Valve There is mild calcification of the aortic valve. There is no aortic valve stenosis. There is no aortic valve regurgitation. Mitral Valve There is moderate mitral annular calcification. There is mild mitral valve regurgitation. There is no mitral valve stenosis. Pulmonic Valve The pulmonic valve is likely normal. Tricuspid Valve There is mild to moderate tricuspid valve regurgitation. The right ventricular systolic pressure is 78 mmHg. Severe pulmonary hypertension is present. Great Vessels The asc aorta is normal in size. Large plaque is seen in the sino tubular ridge. Venous The inferior vena cava is dilated and collapses less than 50% with inspiration. Pericardium/Pleural There is no evidence of pericardial effusion. Prior Study Comparison Changes noted compared to prior study dated: 02/15/2012. Progression of valvular findings. Worsening of pulmonary hypertension. Measurements 2D Linear Measurements IVSd: 1.34 0.6-0.9/0.6-1.0 cm LVIDd: 3.35 3.9-5.3/4.2-5.9 cm LVIDd Index: 1.77 2.4-3.2/2.2-3.1 cm/m2 LVIDs: 1.79 2.0-3.6 cm LVPWd: 1.37 0.7-1.1 cm LA Diam: 4.90 2.7-3.8/3.0-4.0 cm LAIDs Index: 2.59 1.5-2.3 cm/m2 LV Mass: 192.35 67-162/88-224 g LV Mass Index: 101.77 43-95/49-115 g/m2 LVOT Diam: 2.30 3.0+(-)1.3 cm 2D Systolic Function EF 4C: 65.00 >55% EF 2C: 63.80 >55% EF BiP: 64.50 >55% Mitral Valve MV Pk E: 1.36 MV Decel Time: 158.00 E'Lateral: 9.71 E'Medial: 7.94 E/E' Med: 17.10 E/E' Lat: 14.00 PHT: 46.00 MVA PHT: 4.78 Decel [place]: 8.78 Aortic Valve AoV Pk Abdi: 1.68 AoV Mn Abdi: 1.27 AoV VTI: 0.33 AoV Pk Grad: 11.00 Aov Mn Grad: 7.00 NICOHLAS Cont.VTI: 2.15 LVOT LVOT Pk Abdi: 0.88 LVOT Mn Abdi: 0.61 LVOT VTI: 0.17 LVOT Pk Grad: 3.00 LVOT Mn Grad: 2.00 LVOT Diam: 2.30 LVOT Area: 4.15 Diastolic Function MV Pk E: 1.36 E'Medial: 7.94 E/E' Med: 17.10 E' Laterial: 9.71 E/E' Lat: 14.00 Right Ventricle TAPSE (mm): 13.10 TVS' Abdi: 8.77 Tricuspid Valve TR Pk Abdi: 3.96 TR Pk Grad: 63.00 RA Press: 15.00 RVSP: 78.00 Great Vessels Aorta Sinus of Valsalva: 3.45 2.0-3.5 cm Ao Asc: 3.70 2.1-3.4 cm Updated in Other Vendor System with Status of Final Luis Vega MD electronically signed on 09/15/2023 9:48:05 AM with status of Final
[2023-09-14] MEDS: Furosemide 40 MG/4 ML VIAL IVPUSH (13:17)
[2023-09-14] MEDS: Docusate Sodium 100 MG CAPSULE PO ×2 (13:18→20:27)
[2023-09-14] MEDS: polyethylene glycoL 3350 17 GM POWD.PACK PO (13:18)
[2023-09-14 13:54] LABS: B Type Natriuretic Peptide 500 pg/mL (<100)
[2023-09-14] MEDS: 0.9 % Sodium Chloride Flush 3 ML SYRINGE IVFLUSH ×2 (15:46→23:34)
[2023-09-14] MEDS: Sodium Phosphate,Mono-Dibasic 133 ML ENEMA PR (16:19)
[2023-09-14] MEDS: Potassium Chloride ER 10 MEQ TABLET.ER PO (20:27)
[2023-09-15] VITALS (10 sets, daily range): BP systolic 101–126; BP diastolic 61–70; PULSE 18–83; RESP 14–18; TEMP 36.2–36.4; O2SAT 93–95
[2023-09-15] MEDS: oxyCODONE HCl Immed Release 15 MG TABLET PO ×4 (03:52→22:31)
[2023-09-15] MEDS: Omeprazole 20 MG CAPSULE.DR PO (05:28)
[2023-09-15 07:28] LABS: MANUAL DIFF FLAG NO
[2023-09-15 07:36] LABS: Basophils Percent Auto 0.3 % (0-2); Eosinophils Percent Auto 1.3 % (0-4); Hematocrit 26.7 % (42.0-52.0); Hemoglobin 8.7 g/dl (14.0-18.0); Imm Gran Abs Auto 0.01 X10*3/uL (0.00-0.03); Imm Gran Pct Auto 0.3 % (0.0-0.4); Lymphocytes Absolute Auto 0.8 X10*3/uL (1.2-4.9); Lymphocytes Percent Auto 23.9 % (20-40); Mean Corpuscular HGB Conc 32.6 g/dl (31.0-36.0); Mean Corpuscular Hemoglobin 28.1 pg (27.0-33.0); Mean Corpuscular Volume 86.1 fL (80.0-98.0); Mean Platelet Volume 11.5 fL (9.4-12.4); Monocytes Absolute Auto 0.5 X10*3/uL (0.1-1.2); Neutrophils Absolute Auto 1.8 x10*3/uL (2.0-8.3); Neutrophils Percent Auto 57.2 % (45-73); White Blood Count 3.2 X10*3/uL (4.8-10.8)
[2023-09-15 07:37] LABS: Platelet Count 85 X10*3/uL (160-400)
[2023-09-15 07:51] LABS: Anion Gap 14 (12-20); Blood Urea Nitrogen 39 mg/dL (9-16); Calcium 8.8 mg/dL (8.4-10.2); Carbon Dioxide 24 mmol/L (22-29); Chloride 102 mmol/L (96-108); Creatinine Clr Calc Pharmacy 41.5; Estimated Glomerular Filt Rate 42; Glucose Random 113 mg/dL (60-115); Potassium 4.2 mmol/L (3.3-5.1); Sodium 136 mmol/L (135-145)
[2023-09-15] MEDS: Sucralfate 1 GM TABLET PO ×4 (08:38→20:38)
[2023-09-15] MEDS: 0.9 % Sodium Chloride Flush 3 ML SYRINGE IVFLUSH ×3 (08:39→23:43)
[2023-09-15] MEDS: amLODIPine Besylate 5 MG TABLET PO (08:40)
[2023-09-15] MEDS: carvediloL 12.5 MG TABLET PO ×2 (08:40→18:53)
[2023-09-15] MEDS: buPROPion HCl XL 150 MG TAB.ER.24H PO (08:41)
[2023-09-15] MEDS: Docusate Sodium 100 MG CAPSULE PO ×2 (08:41→18:53)
[2023-09-15] MEDS: Cholecalciferol (Vitamin D3) 25 MCG TABLET 50 MCG PO (08:41)
[2023-09-15] MEDS: cloNIDine HCL 0.1 MG TABLET PO ×3 (08:41→18:53)
[2023-09-15] MEDS: Sertraline HCL 100 MG TABLET PO (08:41)
[2023-09-15] MEDS: allopurinoL 100 MG TABLET PO (08:41)
[2023-09-15] MEDS: Clopidogrel Bisulfate 75 MG TABLET PO (08:41)
[2023-09-15] MEDS: Potassium Chloride ER 10 MEQ TABLET.ER 20 MEQ PO (08:41)
[2023-09-15] MEDS: Ferrous Sulfate 324 MG TABLET.DR PO ×2 (08:41→16:59)
[2023-09-15] MEDS: Cyanocobalamin (Vitamin B-12) 1,000 MCG TABLET 1000 MCG PO (08:41)
[2023-09-15] MEDS: Lidocaine 4 % Patch ADH..PATCH 2 PATCH TRANSDERMA (08:42)
[2023-09-15] MEDS: Isosorbide Mononitrate 60 MG TAB.ER.24H PO (08:42)
[2023-09-15] MEDS: Apixaban 5 MG TABLET PO ×2 (08:42→18:53)
[2023-09-15] MEDS: hydrALAZINE HCl 50 MG TABLET PO ×3 (08:42→18:53)
[2023-09-15] MEDS: Furosemide 40 MG/4 ML VIAL IVPUSH (08:42)
[2023-09-15] MEDS: Atorvastatin Calcium 40 MG TABLET PO (08:42)
--- NOTE | 2023-09-15 16:55 | HO.PM.IMPN ---
Subjective Subjective Date of Service: 09/15/23 Interval History: Seen and examined this morning Follow-up for CHF, placement no overnight events on IV lasix still with some sob intermittently Review of Systems Review of Systems: Yes all other systems are reviewed and are negative Constitutional Constitutional: Denies chills and Denies fever(s) Cardiovascular Cardiovascular: Denies chest pain and Denies palpitations Respiratory Respiratory: Denies cough Gastrointestinal Gastrointestinal: Denies abdominal pain Endocrine Endocrine: Denies palpitations Physical Exam Vital Signs: Vital Signs: Last Vital Signs Temp 97.5 F 09/15/23 15:16 Pulse 65 09/15/23 15:16 Resp 18 09/15/23 15:16 BP 126/70 09/15/23 15:16 Pulse Ox 95 09/15/23 15:16 O2 Del Method Room Air 09/15/23 15:16 O2 Flow Rate 2 09/15/23 08:00 BMI result Body Mass Index 20.5 Const: General: cooperative, comfortable, no acute distress, alert and awake Nutritional Appearance: average body habitus Orientation/consciousness: oriented to person and oriented to place Resp: Effort & Inspection: normal respiratory effort, able to speak in complete sentences, no respiratory distress and no use of accessory muscles Cardio: Rate: regular rate GI: Inspection: No distended Palpation (GI): Soft to palpation and nontender Neuro: General: oriented to person, oriented to place, moves all extremities and CN's II-XI intact bilaterally Objective Data Active Medications Acetaminophen (Acetaminophen 325 Mg Tablet) 650 mg PO Q6H PRN PRN Reason: Pain, Mild (Pain Scale 1-3) Last Admin: 09/13/23 13:57 Dose: 650 mg Documented By: STACIE Allopurinol (Allopurinol 100 Mg Tablet) 100 mg PO DAILY [facility] Last Admin: 09/15/23 08:41 Dose: 100 mg Documented By: NIMISHA Amlodipine Besylate (Amlodipine Besylate 5 Mg Tablet) 5 mg PO DAILY [facility]; Protocol Last Admin: 09/15/23 08:40 Dose: 5 mg Documented By: NIMISHA Apixaban (Apixaban 5 Mg Tablet) 5 mg PO BID [facility] Last Admin: 09/15/23 08:42 Dose: 5 mg Documented By: NIMISHA Atorvastatin Calcium (Atorvastatin Calcium 40 Mg Tablet) 40 mg PO DAILY [facility] Last Admin: 09/15/23 08:42 Dose: 40 mg Documented By: NIMISHA Bupropion HCl (Bupropion Hcl Xl 150 Mg Tab.Er.24h) 150 mg PO DAILY [facility] Last Admin: 09/15/23 08:41 Dose: 150 mg Documented By: NIMISHA Carvedilol (Carvedilol 12.5 Mg Tablet) 12.5 mg PO BID [facility]; Protocol Last Admin: 09/15/23 08:40 Dose: 12.5 mg Documented By: NIMISHA Clonidine HCl (Clonidine Hcl 0.1 Mg Tablet) 0.1 mg PO TID [facility]; Protocol Last Admin: 09/15/23 14:26 Dose: 0.1 mg Documented By: NIMISHA Clopidogrel Bisulfate (Clopidogrel Bisulfate 75 Mg Tablet) 75 mg PO DAILY [facility] Last Admin: 09/15/23 08:41 Dose: 75 mg Documented By: NIMISHA Cyanocobalamin (Cyanocobalamin (Vitamin B-12) 1,000 Mcg Tablet) 1,000 mcg PO DAILY [facility] Last Admin: 09/15/23 08:41 Dose: 1,000 mcg Documented By: NIMISHA Docusate Sodium (Docusate Sodium 100 Mg Capsule) 100 mg PO BID [facility] Last Admin: 09/15/23 08:41 Dose: 100 mg Documented By: NIMISHA Ferrous Sulfate (Ferrous Sulfate 324 Mg Tablet.Dr) 324 mg PO BIDWM [facility] Last Admin: 09/15/23 08:41 Dose: 324 mg Documented By: NIMISHA Furosemide (Furosemide 40 Mg Tablet) 40 mg PO BID [facility]; Protocol Last Admin: 09/08/23 09:05 Dose: 40 mg Documented By: JOSE Furosemide (Furosemide 40 Mg/4 Ml Vial) 40 mg IVPUSH DAILY [facility]; Protocol Last Admin: 09/15/23 08:42 Dose: 40 mg Documented By: NIMISHA Hydralazine HCl (Hydralazine Hcl 50 Mg Tablet) 50 mg PO TID [facility]; Protocol Last Admin: 09/15/23 14:26 Dose: 50 mg Documented By: NIMISHA Isosorbide Mononitrate (Isosorbide Mononitrate 60 Mg Tab.Er.24h) 60 mg PO DAILY [facility]; Protocol Last Admin: 09/15/23 08:42 Dose: 60 mg Documented By: NIMISHA Lidocaine (Lidocaine 4 % Patch Adh..Patch) 2 patch TRANSDERMA DAILY [facility]; Protocol Last Admin: 09/15/23 08:42 Dose: 2 patch Documented By: NIMISHA Lorazepam (Lorazepam 0.5 Mg Tablet) 0.5 mg PO Q8H PRN PRN Reason: anxiety/restlessness Last Admin: 09/14/23 23:33 Dose: 0.5 mg Documented By: MIGUEL A Melatonin (Melatonin 3 Mg Tablet) 6 mg PO BEDTIME PRN PRN Reason: Insomnia Last Admin: 09/12/23 20:27 Dose: 6 mg Documented By: EDWARDO Omeprazole (Omeprazole 20 Mg Capsule.Dr) 20 mg PO DAILY@0630 [facility] Last Admin: 09/15/23 05:28 Dose: 20 mg Documented By: NIMISHA Ondansetron HCl (Ondansetron Odt 4 Mg Tab.Rapdis) 4 mg TRANSLINGU Q8H PRN PRN Reason: Nausea And Vomiting Last Admin: 09/06/23 23:09 Dose: 4 mg Documented By: EFRAIN Comments: Early admin ok per . Ondansetron HCl (Ondansetron Hcl 4 Mg/2 Ml Vial) 4 mg IVPUSH Q8H PRN PRN Reason: Nausea and Vomiting Last Admin: 09/14/23 09:22 Dose: 4 mg Documented By: STACIE Oxycodone HCl (Oxycodone Hcl Immed Release 15 Mg Tablet) 15 mg PO Q4H PRN PRN Reason: Pain, Moderate(Pain Scale 4-6) Last Admin: 09/15/23 14:26 Dose: 15 mg Documented By: NIMISHA Polyethylene Glycol (Polyethylene Glycol 3350 17 Gm Powd.Pack) 17 gm PO DAILY [facility] Last Admin: 09/15/23 08:42 Dose: Not Given Documented By: NIMISHA Non-Admin Reason: Patient Refused Potassium Chloride (Potassium Chloride Er 10 Meq Tablet.Er) 10 meq PO BEDTIME [facility] Last Admin: 09/14/23 20:27 Dose: 10 meq Documented By: MIGUEL A Potassium Chloride (Potassium Chloride Er 10 Meq Tablet.Er) 20 meq PO DAILY [facility] Last Admin: 09/15/23 08:41 Dose: 20 meq Documented By: NIMISHA Sertraline HCl (Sertraline Hcl 100 Mg Tablet) 100 mg PO DAILY [facility] Last Admin: 09/15/23 08:41 Dose: 100 mg Documented By: NIMISHA Sodium Chloride (0.9 % Sodium Chloride Flush 3 Ml Syringe) 3 ml IVFLUSH QSHIFT [facility] Last Admin: 09/15/23 08:39 Dose: 3 ml Documented By: NIMISHA Spironolactone (Spironolactone 25 Mg Tablet) 25 mg PO DAILY [facility]; Protocol Last Admin: 09/08/23 09:07 Dose: 25 mg Documented By: JOSE Sucralfate (Sucralfate 1 Gm Tablet) 1 gm PO QIDACHS [facility] Last Admin: 09/15/23 11:16 Dose: 1 gm Documented By: NIMISHA Vitamin D (Cholecalciferol (Vitamin D3) 25 Mcg Tablet) 50 mcg PO DAILY [facility] Last Admin: 09/15/23 08:41 Dose: 50 mcg Documented By: NIMISHA Labs 09/15/23 05:38 09/15/23 05:38 Labs: Laboratory Results - last 24 hr 09/15/23 05:38 MCV 86.1 MCH 28.1 MCHC 32.6 RDW 17.0 H Plt Count 85 L MPV 11.5 Immature Gran % (Auto) 0.3 Neut % (Auto) 57.2 Lymph % (Auto) 23.9 [place] % (Auto) 17.0 H Eos % (Auto) 1.3 Baso % (Auto) 0.3 Lymph # (Auto) 0.[address] [place] # (Auto) 0.5 Eos # (Auto) 0.0 Baso # (Auto) 0.0 Abs Immat Gran (auto) 0.01 Absolute Neuts (auto) 1.8 L Absolute Nucleated RBC 0.000 Nucleated RBC % (auto) 0.0 Anion Gap 14 Estim Creat Clear Calc 41.5 Estimated GFR 42 Random Glucose 113 Calcium 8.8 Assessment and Plan (1) Cognitive impairment: Status: Acute (2) Anemia: Status: Acute Plan 68-year-old man admitted with weakness, failure to thrive, FEDERICO. Found in his home covered in feces and urine. FEDERICO on CKD stage 3 Thought to be secondary to dehydration, but given new hicks with ivf initiation and held furosemide, suspect cardiorenal r/t volume overload DC IVF continue Furosemide 40mg IV renal function improving slightly Continue holding spironolactone and po lasix follow bmp HICKS CXR shows increased interstial markings, probably edema with trace left pleural effusion BNP elevated echo ordered, preserved ejection fraction, [id number] tricuspid valve regurgitation, severe pulmonary hypertension, mildly decreased right ventricular systolic function continue IV lasix 40mg daily Cardiac diet Strict I&O N/V/Abd pain KUB negative for obstructive but shows significant stool burden H/H stable Ondansetron prn give fleet enema x1. Start bowel regimen given chronic narcotic use and iron supplementation monitor output Failure to thrive Supportive care Physical therapy recommended long-term care Psychiatric consult - patient does not have capacity to make medical decisions, healthcare proxy has been invoked Plan for guardianship in process Chronic pain will continue home oxycodone 15 mg Q4hrs PCP said that they were weaning him down and he was currently at 90mg a day lidocaine patch to knees as needed Normocytic anemia H/H stable,stool occult negative iron studies with low iron, normal TIBC, ferritin on low side continue iron supplementation. Initiate bowel regimen pancytopenia No baseline for comparison US with no evidence of liver disease hematology consult pending Hypertension Continue amlodipine, hydralazine, coreg, clonidine Atrial fibrillation, paroxysmal HR controlled On Eliquis and carvedilol Hyperlipidemia continue statin CAD continue BB, statin, imdur CHF, unspecified- see above aldactone and lasix on hold for FEDERICO. IV lasix started 09/13. Resume potassium supplement Mental health Continue zoloft, wellbutrin JOSE ALEJANDRO not on cpap DVT prophylaxis with Eliquis Full code d/w Dr. Urbina Requires ongoing inpatient stay for process of guardianship with no safe disposition , now with suspected chf exacberation requiring iv diuresis and close monitoring of renal fx and lytes Quality Stroke Does the patient have a stroke diagnosis?: No VTE Prior VTE?: No VTE Risk Level:: Medical - moderate - high VTE Device Contraindication: Treatment Not Indicated VTE Drug Contraindication: N/A - Med Ordered
[2023-09-15] MEDS: LORazepam 0.5 MG TABLET PO (18:53)
[2023-09-15] MEDS: Potassium Chloride ER 10 MEQ TABLET.ER PO (20:38)
[2023-09-15] MEDS: Melatonin 3 MG TABLET 6 MG PO (20:39)
[2023-09-16] VITALS (8 sets, daily range): BP systolic 109–146; BP diastolic 62–79; PULSE 62–70; RESP 16–20; TEMP 36.4–36.6; O2SAT 92–96
[2023-09-16] MEDS: oxyCODONE HCl Immed Release 15 MG TABLET PO ×5 (02:24→22:29)
[2023-09-16] MEDS: Omeprazole 20 MG CAPSULE.DR PO (06:00)
[2023-09-16 06:50] LABS: MANUAL DIFF FLAG NO
[2023-09-16 06:57] LABS: Basophils Percent Auto 0.3 % (0-2); Eosinophils Absolute Auto 0.1 X10*3/uL (0.0-0.4); Eosinophils Percent Auto 2.7 % (0-4); Hematocrit 25.9 % (42.0-52.0); Hemoglobin 8.6 g/dl (14.0-18.0); Imm Gran Abs Auto 0.01 X10*3/uL (0.00-0.03); Imm Gran Pct Auto 0.3 % (0.0-0.4); Lymphocytes Absolute Auto 0.5 X10*3/uL (1.2-4.9); Lymphocytes Percent Auto 16.2 % (20-40); Mean Corpuscular HGB Conc 33.2 g/dl (31.0-36.0); Mean Corpuscular Hemoglobin 28.4 pg (27.0-33.0); Mean Corpuscular Volume 85.5 fL (80.0-98.0); Mean Platelet Volume 11.4 fL (9.4-12.4); Monocytes Absolute Auto 0.4 X10*3/uL (0.1-1.2); Monocytes Percent Auto 12.6 % (2-11); Neutrophils Absolute Auto 2.3 x10*3/uL (2.0-8.3); Neutrophils Percent Auto 67.9 % (45-73); Red Blood Count 3.03 X10*6/uL (4.60-5.80); Red Cell Distribution Width 16.8 % (11.0-16.0); White Blood Count 3.3 X10*3/uL (4.8-10.8)
[2023-09-16 06:58] LABS: Platelet Count 99 X10*3/uL (160-400)
[2023-09-16 07:07] LABS: Anion Gap 15 (12-20); Blood Urea Nitrogen 40 mg/dL (9-16); Calcium 8.9 mg/dL (8.4-10.2); Carbon Dioxide 25 mmol/L (22-29); Chloride 101 mmol/L (96-108); Creatinine Clr Calc Pharmacy 44.5; Estimated Glomerular Filt Rate 46; Glucose Random 98 mg/dL (60-115); Potassium 3.7 mmol/L (3.3-5.1); Sodium 137 mmol/L (135-145)
[2023-09-16] MEDS: hydrALAZINE HCl 50 MG TABLET PO (08:33)
[2023-09-16] MEDS: Docusate Sodium 100 MG CAPSULE PO (08:33)
[2023-09-16] MEDS: Sucralfate 1 GM TABLET PO ×3 (08:33→18:16)
[2023-09-16] MEDS: cloNIDine HCL 0.1 MG TABLET PO (08:34)
[2023-09-16] MEDS: allopurinoL 100 MG TABLET PO (08:34)
[2023-09-16] MEDS: Isosorbide Mononitrate 60 MG TAB.ER.24H PO (08:34)
[2023-09-16] MEDS: Cholecalciferol (Vitamin D3) 25 MCG TABLET 50 MCG PO (08:34)
[2023-09-16] MEDS: Cyanocobalamin (Vitamin B-12) 1,000 MCG TABLET 1000 MCG PO (08:34)
[2023-09-16] MEDS: carvediloL 12.5 MG TABLET PO (08:34)
[2023-09-16] MEDS: Atorvastatin Calcium 40 MG TABLET PO (08:34)
[2023-09-16] MEDS: amLODIPine Besylate 5 MG TABLET PO (08:34)
[2023-09-16] MEDS: Apixaban 5 MG TABLET PO (08:35)
[2023-09-16] MEDS: Lidocaine 4 % Patch ADH..PATCH 2 PATCH TRANSDERMA (08:35)
[2023-09-16] MEDS: Furosemide 40 MG/4 ML VIAL IVPUSH (08:35)
[2023-09-16] MEDS: Ferrous Sulfate 324 MG TABLET.DR PO (08:35)
[2023-09-16] MEDS: Clopidogrel Bisulfate 75 MG TABLET PO (08:35)
[2023-09-16] MEDS: Sertraline HCL 100 MG TABLET PO (08:35)
[2023-09-16] MEDS: buPROPion HCl XL 150 MG TAB.ER.24H PO (08:35)
[2023-09-16] MEDS: Potassium Chloride ER 10 MEQ TABLET.ER 20 MEQ PO (08:36)
[2023-09-16] MEDS: 0.9 % Sodium Chloride Flush 3 ML SYRINGE IVFLUSH ×3 (08:47→23:40)
--- NOTE | 2023-09-16 10:00 | PC.NURSE ---
Addendum entered by Edelmira Carballo RN 09/16/23 18:46: Eliquis and Plavix put on hold for bleeding. Original Note: Patient coughing up blood tinged phlegm. Candie HANKINS notified. CT chest ordered. Waiting for results.
--- NOTE | 2023-09-16 10:41 | MHC.CLN ---
Addendum entered by Eden Ragsdale, IGLESIA 09/16/23 10:45: DIET=CARDIAC WITH ENSURE SUPPLEMENT TID. Original Note: F/U DIET=2 GRAM SODIUM-APPROPRIATE. ENSURE TID (1050 KCALS, 60 G PROTEIN) TO PROMOTE WOUND HEALING. DTI RIGHT HIP AND STAGE II RIGHT ANKLE. PO INTAKE USUALLY GOOD, 75-100%. SOME NAUSEA NOTED. MONITOR PO INTAKE AND ENCOURAGE SUPPLEMENTS.
--- NOTE | 2023-09-16 11:23 | PM.HEMONCCN ---
Subjective - Subjective Chief complaint: Shortness of breath Patient: new to practice Consult date: 09/16/23 Primary Care Provider: Hannah Garcia NP HPI - Consult Narrative Reason for consult: Pancytopenia Narrative: Iban Ballesteros is a 68 year old male who presented to ED with complaints of shortness of breath and admitted for acute kidney injury, anemia and failure to thrive. He was noted to be mildly pancytopenic with leukopenia and thrombocytopenia in addition to iron deficiency anemia. He says he spit up blood a few times. No history of alcohol use or smoking. He says he is achy all over, all his joints hurt him. He denies fever, chills or night sweats. He says he has never been diagnosed with any cancer. He has been living at home with his grandson. He says he was never diagnosed with low blood counts before. Review of Systems - Constitutional Reports as per HPI - Neurologic Denies dizziness, Denies loss of vision, Denies numbness, Denies tingling PMFSH Medical History: Medical History (Last Reviewed 09/13/23 @ 10:28 by JHON Johnson) Aortic aneurysm Atrial fibrillation Chronic kidney disease, stage 3b Chronic pain syndrome CVA (cerebral vascular accident) Degenerative joint disease (DJD) of lumbar spine Depression Gout Hyperlipidemia Hypertension, renal disease Neuropathy of upper extremity OA (osteoarthritis) of knee JOSE ALEJANDRO (obstructive sleep apnea) Pain in joint involving shoulder region Shoulder pain Surgical History: Surgical History (Last Reviewed 09/13/23 @ 10:28 by JHON Johnson) Hx of CABG Social History: Social History Living Situation History: Household Members: Family Household Members Other:: grandson Housing: House Do you presently have visiting nurse or other home services: No Alcohol History Details: 1. How often do you have a drink containing alcohol?: a. Never AUDIT-C Alcohol total score: 0 Currently Displaying Signs/Symptoms of Alcohol Withdrawal: No Tobacco History: Patient Tobacco Use Status: Never used Tobacco Smoked in Last 30 Days: No Substance Use History: Use of substances other than those prescribed or required for medical reasons: Yes Substance Use Type: Marijuana Substance Use Frequency: Occasionally Currently Displaying Signs/Symptoms of Drug Intoxication Withdrawal: No Domestic Abuse History: Have you been hit, kicked, punched, or otherwise hurt by someone within the past year? If so, by whom?: No Do you feel safe in your current relationship?: No Current Relationship Is there a partner from a previous relationship who is making you feel unsafe now?: No Are you made to feel afraid or neglected: No Advance Directives: Advance Directives: Yes Advance Directives Information Provided: No Advance Directives on File: Yes Advance Directives Date on File: 09/06/23 Homicidal Assessment: Do you have a plan to hurt others: No Plan Nutrition Assessment: Recently lost weight without trying: Unsure Occupation Assessmet: service: No Home Medications and Allergies Current Medications: Current Medications Acetaminophen (Acetaminophen 325 Mg Tablet) 650 mg PO Q6H PRN PRN Reason: Pain, Mild (Pain Scale 1-3) Last Admin: 09/13/23 13:57 Dose: 650 mg Allopurinol (Allopurinol 100 Mg Tablet) 100 mg PO DAILY [facility] Last Admin: 09/16/23 08:34 Dose: 100 mg Amlodipine Besylate (Amlodipine Besylate 5 Mg Tablet) 5 mg PO DAILY [facility]; Protocol Last Admin: 09/16/23 08:34 Dose: 5 mg Apixaban (Apixaban 5 Mg Tablet) 5 mg PO BID [facility] Last Admin: 09/16/23 08:35 Dose: 5 mg Atorvastatin Calcium (Atorvastatin Calcium 40 Mg Tablet) 40 mg PO DAILY [facility] Last Admin: 09/16/23 08:34 Dose: 40 mg Bupropion HCl (Bupropion Hcl Xl 150 Mg Tab.Er.24h) 150 mg PO DAILY [facility] Last Admin: 09/16/23 08:35 Dose: 150 mg Carvedilol (Carvedilol 12.5 Mg Tablet) 12.5 mg PO BID [facility]; Protocol Last Admin: 09/16/23 08:34 Dose: 12.5 mg Clonidine HCl (Clonidine Hcl 0.1 Mg Tablet) 0.1 mg PO TID [facility]; Protocol Last Admin: 09/16/23 08:34 Dose: 0.1 mg Clopidogrel Bisulfate (Clopidogrel Bisulfate 75 Mg Tablet) 75 mg PO DAILY [facility] Last Admin: 09/16/23 08:35 Dose: 75 mg Cyanocobalamin (Cyanocobalamin (Vitamin B-12) 1,000 Mcg Tablet) 1,000 mcg PO DAILY [facility] Last Admin: 09/16/23 08:34 Dose: 1,000 mcg Docusate Sodium (Docusate Sodium 100 Mg Capsule) 100 mg PO BID [facility] Last Admin: 09/16/23 08:33 Dose: 100 mg Ferrous Sulfate (Ferrous Sulfate 324 Mg Tablet.) 324 mg PO BIDWM [facility] Last Admin: 09/16/23 08:35 Dose: 324 mg Furosemide (Furosemide 40 Mg Tablet) 40 mg PO BID [facility]; Protocol Last Admin: 09/08/23 09:05 Dose: 40 mg Hydralazine HCl (Hydralazine Hcl 50 Mg Tablet) 50 mg PO TID [facility]; Protocol Last Admin: 09/16/23 08:33 Dose: 50 mg Isosorbide Mononitrate (Isosorbide Mononitrate 60 Mg Tab.Er.24h) 60 mg PO DAILY [facility]; Protocol Last Admin: 09/16/23 08:34 Dose: 60 mg Lidocaine (Lidocaine 4 % Patch Adh..Patch) 2 patch TRANSDERMA DAILY [facility]; Protocol Last Admin: 09/16/23 08:35 Dose: 1 patch Lorazepam (Lorazepam 0.5 Mg Tablet) 0.5 mg PO Q8H PRN PRN Reason: anxiety/restlessness Last Admin: 09/15/23 18:53 Dose: 0.5 mg Melatonin (Melatonin 3 Mg Tablet) 6 mg PO BEDTIME PRN PRN Reason: Insomnia Last Admin: 09/15/23 20:39 Dose: 6 mg Omeprazole (Omeprazole 20 Mg Capsule.) 20 mg PO DAILY@0630 [facility] Last Admin: 09/16/23 06:00 Dose: 20 mg Ondansetron HCl (Ondansetron Odt 4 Mg Tab.Rapdis) 4 mg TRANSLINGU Q8H PRN PRN Reason: Nausea And Vomiting Last Admin: 09/06/23 23:09 Dose: 4 mg Ondansetron HCl (Ondansetron Hcl 4 Mg/2 Ml Vial) 4 mg IVPUSH Q8H PRN PRN Reason: Nausea and Vomiting Last Admin: 09/14/23 09:22 Dose: 4 mg Oxycodone HCl (Oxycodone Hcl Immed Release 15 Mg Tablet) 15 mg PO Q4H PRN PRN Reason: Pain, Moderate(Pain Scale 4-6) Last Admin: 09/16/23 08:32 Dose: 15 mg Polyethylene Glycol (Polyethylene Glycol 3350 17 Gm Powd.Pack) 17 gm PO DAILY [facility] Last Admin: 09/16/23 08:47 Dose: Not Given Potassium Chloride (Potassium Chloride Er 10 Meq Tablet.Er) 10 meq PO BEDTIME [facility] Last Admin: 09/15/23 20:38 Dose: 10 meq Potassium Chloride (Potassium Chloride Er 10 Meq Tablet.Er) 20 meq PO DAILY [facility] Last Admin: 09/16/23 08:36 Dose: 20 meq Sertraline HCl (Sertraline Hcl 100 Mg Tablet) 100 mg PO DAILY [facility] Last Admin: 09/16/23 08:35 Dose: 100 mg Sodium Chloride (0.9 % Sodium Chloride Flush 3 Ml Syringe) 3 ml IVFLUSH QSHIFT [facility] Last Admin: 09/16/23 08:47 Dose: 3 ml Spironolactone (Spironolactone 25 Mg Tablet) 25 mg PO DAILY [facility]; Protocol Last Admin: 09/08/23 09:07 Dose: 25 mg Sucralfate (Sucralfate 1 Gm Tablet) 1 gm PO QIDACHS [facility] Last Admin: 09/16/23 08:33 Dose: 1 gm Vitamin D (Cholecalciferol (Vitamin D3) 25 Mcg Tablet) 50 mcg PO DAILY [facility] Last Admin: 09/16/23 08:34 Dose: 50 mcg Home Medications ?Medication ?Instructions ?Recorded ?Confirmed ?Type allopurinol 100 mg tablet 100 mg PO DAILY 09/06/23 09/06/23 History amlodipine 5 mg tablet 5 mg PO DAILY 09/06/23 09/06/23 History apixaban 5 mg tablet (Eliquis) 5 mg PO BID 09/06/23 09/06/23 History atorvastatin 40 mg tablet 40 mg PO DAILY 09/06/23 09/06/23 History bupropion HCl 150 mg 24 hr tablet, 150 mg PO DAILY 09/06/23 09/06/23 History extended release carvedilol 12.5 mg tablet 12.5 mg PO BID 09/06/23 09/06/23 History cholecalciferol (vitamin D3) 1,250 1,250 mcg PO QWEEK 09/06/23 09/06/23 History mcg (50,000 unit) capsule clonidine HCl 0.1 mg tablet 0.1 mg PO TID 09/06/23 09/06/23 History clopidogrel 75 mg tablet 75 mg PO DAILY 09/06/23 09/06/23 History cyanocobalamin (vitamin B-12) 1,000 mcg PO DAILY 09/06/23 09/06/23 History 1,000 mcg tablet furosemide 40 mg tablet 40 mg PO BID 09/06/23 09/06/23 History hydralazine 50 mg tablet 50 mg PO TID 09/06/23 09/06/23 History isosorbide mononitrate 60 mg 60 mg PO QAM 09/06/23 09/06/23 History tablet,extended release 24 hr ondansetron HCl 4 mg tablet 4 mg PO Q8H PRN Nausea And Vomiting 09/06/23 09/06/23 History oxycodone 15 mg tablet 15 mg PO Q4H PRN pain 09/06/23 09/06/23 History pantoprazole 40 mg tablet,delayed 40 mg PO DAILY 09/06/23 09/06/23 History release potassium chloride 10 mEq 10 meq PO BEDTIME 09/06/23 09/06/23 History tablet,extended release potassium chloride 10 mEq 20 meq PO DAILY 09/06/23 09/06/23 History tablet,extended release sertraline 100 mg tablet 100 mg PO DAILY 09/06/23 09/06/23 History spironolactone 25 mg tablet 25 mg PO DAILY 09/06/23 09/06/23 History sucralfate 1 gram tablet 1 g PO QIDACHS 09/06/23 09/06/23 History Allergies Allergy/AdvReac Type Severity Reaction Status Date / Time No Known Allergies Allergy Verified 09/06/23 10:39 Physical Exam Vital signs: Vital Signs Temp 97.5 F 09/16/23 07:40 Pulse 62 09/16/23 07:40 Resp 18 09/16/23 07:40 BP 128/70 09/16/23 08:35 Pulse Ox 93 09/16/23 07:40 O2 Del Method Nasal Cannula 09/16/23 07:40 O2 Flow Rate 2 09/16/23 07:40 Intake & Output 09/15/23 09/16/23 09/16/23 18:59 06:59 18:59 Intake Total 480 / 920 440 / 920 Output Total 200 / 1100 900 / 1100 Balance 280 / -180 -460 / -180 Urine Output (Average ml/kg/hr) 0.24 0.61 Intake: Intake, Oral Amount 480 / 920 440 / 920 Output: Output, Post Void Residual 400 / 400 Amount Output, Urine Amount (Catheter) 200 / 700 500 / 700 Condom 200 / 700 500 / 700 Other: Meal Refused No NPO No Breakfast % Eaten 75% Lunch % Eaten 100% Number of Incontinent Voids 2 Number of Bowel Movements 1 Urine Color Yellow Yellow Stool Bedpan Stool Amount Large Stool Color Dark Brown Stool Consistency Pasty Weight 68.7 kg - Constitutional Present: no acute distress - Routine HEENT Exam Head: Present: normal inspection Eye: Present: EOMI - Routine Neck Exam Present: supple. Absent: lymphadenopathy - Routine Respiratory Exam Present: CTAB - Routine Cardiovascular Exam Cardiovascular: Present: S1, S2 - Routine Abdominal Exam Present: soft - Routine Skin Exam Present: intact - Routine Neurological Exam Present: alert Hem/Onc Consult Result - Labs CBC & Chem 7: 09/16/23 05:40 09/16/23 05:40 Labs: Short CBC 09/16/23 Range/Units 05:40 WBC 3.3 L (4.8-10.8) X10*3/uL Hgb 8.6 L (14.0-18.0) g/dl Hct 25.9 L (42.0-52.0) % Plt Count 99 L (160-400) X10*3/uL BMP 09/16/23 05:40 Sodium 137 Potassium 3.7 Chloride 101 Carbon Dioxide 25 BUN 40 H Creatinine 1.52 H Calcium 8.9 Assessment and Plan Patient Active problem list reviewed?: Yes (1) Anemia Status: Acute Assessment and plan: 1. This is a 68-year-old male with cognitive impairment admitted for weakness, failure to thrive and acute kidney injury. He was noted to have anemia/mild pancytopenia. His prior CBC from 2016 does not show leukopenia or thrombocytopenia. He has chronic kidney disease which could be contributing to anemia. Vitamin B12 and folic acid levels are normal. Sertraline can sometimes be associated with agranulocytosis and pancytopenia. Ferritin levels are normal with slightly reduced iron and transferrin saturation. Anemia of chronic disease is likely. Agree with scan of his chest as he is reporting hemoptysis. Underlying malignancy is a possibility. Further hematological tests have been submitted. I thank you for the consult, will follow. - Time Spent With Patient Time Spent with Patient (in minutes): 20
--- NOTE | 2023-09-16 12:09 | MHC.CM.PN ---
Patients discharge is pending Guardianship; which has been initiated by the hospital. [facility] [place] legal firm, [employer] has been notified. A court date is pending. DP LTC via BLS.
[2023-09-16 13:01] LABS: Immature Retic Fraction 20.3 % (2.3-13.4); Retic HGB Equivalent 28.6 pg (30.0-35.0); Reticulocyte Percent 2.3 % (0.5-1.8); Reticulocytes Absolute 0.076 X10*6/uL (0.026-0.095)
[2023-09-16 13:17] LABS: Lactate Dehydrogenase 201 U/L (118-273)
[2023-09-16] MEDS: ondansetron HCL 4 MG/2 ML VIAL IVPUSH (15:02)
--- NOTE | 2023-09-16 15:14 | PC.NURSE ---
Pt requesting increase in dose of oxycodone. States current dose isn't helping the pain. Provider Candie HANKINS aware. No change in medication at present time. Offered tyenol, hot pack, ice pack but patient refused. Repositioned Pt. Refusing scheduled hydralazine and clonidine at present time. Candie notified. Coughing intermittently and reporting nausea. Did take zofran prn.
--- NOTE | 2023-09-16 16:14 | ECG_ITS ---
Test Reason : chest pain Blood Pressure : / mmHG Vent. Rate : 064 BPM Atrial Rate : 000 BPM P-R Int : 000 ms QRS Dur : 090 ms QT Int : 454 ms P-R-T Axes : 000 037 091 degrees QTc Int : 468 ms Atrial fibrillation Nonspecific ST and T wave abnormality Prolonged QT Abnormal ECG When compared with ECG of 13-SEP-2023 13:42, No significant change was found Referred By: Candie Oliveros Electronically Signed By:JACK SOSA
[2023-09-16] MEDS: guaiFEN/Codeine SF 200/20/10ML 10 ML LIQUID 5 ML PO ×2 (16:32→23:48)
[2023-09-16] MEDS: Morphine Sulfate 2 MG/ML CARTRIDGE IVPUSH (16:32)
--- NOTE | 2023-09-16 16:42 | HO.PM.IMPN ---
Subjective Subjective Date of Service: 09/16/23 Interval History: Seen and examined this morning Follow-up for placement, CHF, FEDERICO Having some blood-tinged phlegm, cough Requesting to have pain medication increased Review of Systems Review of Systems: Yes all other systems are reviewed and are negative Constitutional Constitutional: Denies chills and Denies fever(s) Cardiovascular Cardiovascular: Denies chest pain and Reports dyspnea Respiratory Respiratory: Reports cough and Reports dyspnea Gastrointestinal Gastrointestinal: Denies abdominal pain Physical Exam Vital Signs: Vital Signs: Last Vital Signs Temp 97.7 F 09/16/23 15:01 Pulse 64 09/16/23 16:22 Resp 20 09/16/23 16:22 BP 119/67 09/16/23 16:22 Pulse Ox 96 09/16/23 16:22 O2 Del Method Nasal Cannula 09/16/23 16:22 O2 Flow Rate 2 09/16/23 16:22 BMI result Body Mass Index 20.5 Const: General: cooperative, comfortable, no acute distress, alert and awake Nutritional Appearance: average body habitus Orientation/consciousness: oriented to person, oriented to place and patient oriented x3 Resp: Other: no wheeze, rales Effort & Inspection: normal respiratory effort, able to speak in complete sentences, no respiratory distress and no use of accessory muscles Cardio: Rate: regular rate GI: Inspection: No distended Palpation (GI): Soft to palpation and nontender Neuro: General: oriented to person, oriented to place, patient oriented x3, moves all extremities and CN's II-XI intact bilaterally Extrem: General: Yes no pedal edema Objective Data Active Medications Acetaminophen (Acetaminophen 325 Mg Tablet) 650 mg PO Q6H PRN PRN Reason: Pain, Mild (Pain Scale 1-3) Last Admin: 09/13/23 13:57 Dose: 650 mg Documented By: STACIE Allopurinol (Allopurinol 100 Mg Tablet) 100 mg PO DAILY [facility] Last Admin: 09/16/23 08:34 Dose: 100 mg Documented By: TJ Amlodipine Besylate (Amlodipine Besylate 5 Mg Tablet) 5 mg PO DAILY [facility]; Protocol Last Admin: 09/16/23 08:34 Dose: 5 mg Documented By: TJ Apixaban (Apixaban 5 Mg Tablet) 5 mg PO BID [facility] Last Admin: 09/16/23 08:35 Dose: 5 mg Documented By: TJ Atorvastatin Calcium (Atorvastatin Calcium 40 Mg Tablet) 40 mg PO DAILY [facility] Last Admin: 09/16/23 08:34 Dose: 40 mg Documented By: TJ Bupropion HCl (Bupropion Hcl Xl 150 Mg Tab.Er.24h) 150 mg PO DAILY [facility] Last Admin: 09/16/23 08:35 Dose: 150 mg Documented By: TJ Carvedilol (Carvedilol 12.5 Mg Tablet) 12.5 mg PO BID [facility]; Protocol Last Admin: 09/16/23 08:34 Dose: 12.5 mg Documented By: TJ Clonidine HCl (Clonidine Hcl 0.1 Mg Tablet) 0.1 mg PO TID [facility]; Protocol Last Admin: 09/16/23 15:13 Dose: Not Given Documented By: TJ Non-Admin Reason: Patient Refused Clopidogrel Bisulfate (Clopidogrel Bisulfate 75 Mg Tablet) 75 mg PO DAILY [facility] Last Admin: 09/16/23 08:35 Dose: 75 mg Documented By: TJ Cyanocobalamin (Cyanocobalamin (Vitamin B-12) 1,000 Mcg Tablet) 1,000 mcg PO DAILY [facility] Last Admin: 09/16/23 08:34 Dose: 1,000 mcg Documented By: TJ Docusate Sodium (Docusate Sodium 100 Mg Capsule) 100 mg PO BID [facility] Last Admin: 09/16/23 08:33 Dose: 100 mg Documented By: TJ Ferrous Sulfate (Ferrous Sulfate 324 Mg Tablet.Dr) 324 mg PO BIDWM [facility] Last Admin: 09/16/23 08:35 Dose: 324 mg Documented By: TJ Furosemide (Furosemide 40 Mg Tablet) 40 mg PO BID [facility]; Protocol Last Admin: 09/08/23 09:05 Dose: 40 mg Documented By: JOSE Guaifenesin/Codeine Phosphate (Guaifen/Codeine Sf 200/20/10ml 10 Ml Liquid) 5 ml PO Q6H PRN PRN Reason: cough Last Admin: 09/16/23 16:32 Dose: 5 ml Documented By: TJ Hydralazine HCl (Hydralazine Hcl 50 Mg Tablet) 50 mg PO TID [facility]; Protocol Last Admin: 09/16/23 15:14 Dose: Not Given Documented By: TJ Non-Admin Reason: Patient Refused Isosorbide Mononitrate (Isosorbide Mononitrate 60 Mg Tab.Er.24h) 60 mg PO DAILY [facility]; Protocol Last Admin: 09/16/23 08:34 Dose: 60 mg Documented By: TJ Lidocaine (Lidocaine 4 % Patch Adh..Patch) 2 patch TRANSDERMA DAILY [facility]; Protocol Last Admin: 09/16/23 08:35 Dose: 1 patch Documented By: TJ Lorazepam (Lorazepam 0.5 Mg Tablet) 0.5 mg PO Q8H PRN PRN Reason: anxiety/restlessness Last Admin: 09/15/23 18:53 Dose: 0.5 mg Documented By: AJNET Melatonin (Melatonin 3 Mg Tablet) 6 mg PO BEDTIME PRN PRN Reason: Insomnia Last Admin: 09/15/23 20:39 Dose: 6 mg Documented By: JANET Omeprazole (Omeprazole 20 Mg Capsule.Dr) 20 mg PO DAILY@0630 [facility] Last Admin: 09/16/23 06:00 Dose: 20 mg Documented By: LANIE Ondansetron HCl (Ondansetron Odt 4 Mg Tab.Rapdis) 4 mg TRANSLINGU Q8H PRN PRN Reason: Nausea And Vomiting Last Admin: 09/06/23 23:09 Dose: 4 mg Documented By: EFRAIN Comments: Early admin ok per . Ondansetron HCl (Ondansetron Hcl 4 Mg/2 Ml Vial) 4 mg IVPUSH Q8H PRN PRN Reason: Nausea and Vomiting Last Admin: 09/16/23 15:02 Dose: 4 mg Documented By: TJ Oxycodone HCl (Oxycodone Hcl Immed Release 15 Mg Tablet) 15 mg PO Q4H PRN PRN Reason: Pain, Moderate(Pain Scale 4-6) Last Admin: 09/16/23 13:08 Dose: 15 mg Documented By: TJ Polyethylene Glycol (Polyethylene Glycol 3350 17 Gm Powd.Pack) 17 gm PO DAILY [facility] Last Admin: 09/16/23 08:47 Dose: Not Given Documented By: TJ Non-Admin Reason: Patient Refused Potassium Chloride (Potassium Chloride Er 10 Meq Tablet.Er) 10 meq PO BEDTIME [facility] Last Admin: 09/15/23 20:38 Dose: 10 meq Documented By: JANET Potassium Chloride (Potassium Chloride Er 10 Meq Tablet.Er) 20 meq PO DAILY [facility] Last Admin: 09/16/23 08:36 Dose: 20 meq Documented By: TJ Sertraline HCl (Sertraline Hcl 100 Mg Tablet) 100 mg PO DAILY [facility] Last Admin: 09/16/23 08:35 Dose: 100 mg Documented By: TJ Sodium Chloride (0.9 % Sodium Chloride Flush 3 Ml Syringe) 3 ml IVFLUSH QSHIFT [facility] Last Admin: 09/16/23 16:33 Dose: 3 ml Documented By: TJ Spironolactone (Spironolactone 25 Mg Tablet) 25 mg PO DAILY [facility]; Protocol Last Admin: 09/08/23 09:07 Dose: 25 mg Documented By: JOSE Sucralfate (Sucralfate 1 Gm Tablet) 1 gm PO QIDACHS [facility] Last Admin: 09/16/23 13:05 Dose: 1 gm Documented By: TJ Vitamin D (Cholecalciferol (Vitamin D3) 25 Mcg Tablet) 50 mcg PO DAILY [facility] Last Admin: 09/16/23 08:34 Dose: 50 mcg Documented By: TJ Labs 09/16/23 05:40 09/16/23 05:40 Labs: Laboratory Results - last 24 hr 09/16/23 09/16/23 05:40 12:17 MCV 85.5 MCH 28.4 MCHC 33.2 RDW 16.8 H Plt Count 99 L MPV 11.4 Immature Gran % (Auto) 0.3 Neut % (Auto) 67.9 Lymph % (Auto) 16.2 L [place] % (Auto) 12.6 H Eos % (Auto) 2.7 Baso % (Auto) 0.3 Lymph # (Auto) 0.5 L [place] # (Auto) 0.4 Eos # (Auto) 0.1 Baso # (Auto) 0.0 Abs Immat Gran (auto) 0.01 Absolute Neuts (auto) 2.3 Absolute Nucleated RBC 0.000 Nucleated RBC % (auto) 0.0 Absolute Retic 0.076 Percent Retic 2.3 H Immature Retic Fraction 20.3 H Retic Hgb Equivalent 28.6 L Anion Gap 15 Estim Creat Clear Calc 44.5 Estimated GFR 46 Random Glucose 98 Calcium 8.9 Lactate Dehydrogenase 201 Assessment and Plan (1) Cognitive impairment: Status: Acute (2) Anemia: Status: Acute Plan 68-year-old man admitted with weakness, failure to thrive, FEDER[place]. Found in his home covered in feces and urine. Hemoptysis no selvin blood but blood tinged phlegm chest ct pending hold eliquis FEDERICO on CKD stage 3 Thought to be secondary to dehydration, but given HICKS with ivf initiation and held furosemide, suspect cardiorenal r/t volume overload DC IVF s/p IV Furosemide 40mg renal function improving follow BMP HICKS, likely due to acute on chronic CHF- probably right HF in the setting of severe pulmonary hypertension vs diastolic dysfunction echo with preserved ejection fraction, [id number] tricuspid valve regurgitation, severe pulmonary hypertension, mildly decreased right ventricular systolic function s/p IV lasix 40mg likely resume home lasix and aldactone in am will also obtain chest CT to eval for pulmonary cause of SOB potassium supplementation resumed at home dose N/V/Abd pain KUB negative for obstructive but shows significant stool burden H/H stable Ondansetron prn give fleet enema x1. Start bowel regimen given chronic narcotic use and iron supplementation monitor output Failure to thrive Supportive care Physical therapy recommended long-term care Psychiatric consult - patient does not have capacity to make medical decisions, healthcare proxy has been invoked Plan for guardianship in process Chronic pain will continue home oxycodone 15 mg Q4hrs PCP said that they were weaning him down and he was currently at 90mg a day lidocaine patch to knees as needed Normocytic anemia H/H stable,stool occult negative iron studies with low iron, normal TIBC, ferritin on low side continue iron supplementation. continue bowel regimen pancytopenia No baseline for comparison US with no evidence of liver disease hematology consult pending - further work up pending Hypertension Continue amlodipine, hydralazine, coreg, clonidine Atrial fibrillation, paroxysmal HR controlled On Eliquis and carvedilol Hyperlipidemia continue statin CAD continue BB, statin, imdur Mental health Continue zoloft, wellbutrin JOSE ALEJANDRO not on cpap DVT prophylaxis with Eliquis Full code d/w Dr. Urbina Requires ongoing inpatient stay for process of guardianship with no safe disposition , now with suspected chf exacberation requiring iv diuresis and close monitoring of renal fx and lytes Quality Stroke Does the patient have a stroke diagnosis?: No VTE Prior VTE?: No VTE Risk Level:: Medical - moderate - high VTE Device Contraindication: Treatment Not Indicated VTE Drug Contraindication: N/A - Med Ordered
[2023-09-16 17:34] LABS: Troponin-I High Sensitivity 13.8 ng/L (<3.5-35.0)
[2023-09-16] MEDS: Famotidine/PF 20 MG/2 ML VIAL IVPUSH (18:12)
[2023-09-16] MEDS: LORazepam 0.5 MG TABLET PO (18:16)
--- NOTE | 2023-09-16 18:38 | PC.NURSE ---
Patient reporting Left sided chest pain 12/23 @ 1620. Vital signs: HR 64, RR 20, BP 119/67, 96% on 2L. Stat EKG with no changes from previous. Troponins ordered and WNL. Medicated with morphine 2mg IV. Robitussin with Codeine for cough. Patient reports chest pain much improved 06/25. Candie HANKINS in to assess patient.
--- NOTE | 2023-09-16 20:58 | PC.NURSE ---
Patient refusing all HS medications d/t the timing of next oxycodone dose. Medication is due at 22:16, patient yelling at RN, screaming profanities, refusing all medications. Pt states, All I want is my fing oxycodone and I want it now you lying Bch. RN charted against all HS medications to avoid continued confrontation/verbal assault. RN to return to room to give patient PRN oxycodone for 22:16. Patient kept safe, call wray is within patient's reach.
[2023-09-17] VITALS (12 sets, daily range): BP systolic 100–128; BP diastolic 57–77; PULSE 56–75; RESP 14–18; TEMP 36.2–37.3; O2SAT 93–97
[2023-09-17] MEDS: oxyCODONE HCl Immed Release 15 MG TABLET PO ×5 (03:22→22:57)
[2023-09-17] MEDS: Omeprazole 20 MG CAPSULE.DR PO (06:05)
[2023-09-17 06:42] LABS: Anion Gap 14 (12-20); Blood Urea Nitrogen 35 mg/dL (9-16); Calcium 9.3 mg/dL (8.4-10.2); Carbon Dioxide 27 mmol/L (22-29); Chloride 101 mmol/L (96-108); Creatinine Clr Calc Pharmacy 47.7; Estimated Glomerular Filt Rate 49; Glucose Random 91 mg/dL (60-115); Potassium 4.4 mmol/L (3.3-5.1); Sodium 138 mmol/L (135-145)
[2023-09-17 07:37] LABS: Hematocrit 26.6 % (42.0-52.0); Hemoglobin 8.6 g/dl (14.0-18.0); Mean Corpuscular HGB Conc 32.3 g/dl (31.0-36.0); Mean Corpuscular Hemoglobin 27.8 pg (27.0-33.0); Mean Corpuscular Volume 86.1 fL (80.0-98.0); Mean Platelet Volume 10.6 fL (9.4-12.4); Platelet Count 103 X10*3/uL (160-400); Red Blood Count 3.09 X10*6/uL (4.60-5.80); Red Cell Distribution Width 16.9 % (11.0-16.0); White Blood Count 3.8 X10*3/uL (4.8-10.8)
[2023-09-17] MEDS: guaiFEN/Codeine SF 200/20/10ML 10 ML LIQUID 5 ML PO ×3 (08:20→22:57)
[2023-09-17 08:21] LABS: Procalcitonin 0.15 ng/mL
[2023-09-17] MEDS: Atorvastatin Calcium 40 MG TABLET PO (08:21)
[2023-09-17] MEDS: Ferrous Sulfate 324 MG TABLET.DR PO ×2 (08:21→16:46)
[2023-09-17] MEDS: cloNIDine HCL 0.1 MG TABLET PO (08:22)
[2023-09-17] MEDS: buPROPion HCl XL 150 MG TAB.ER.24H PO (08:22)
[2023-09-17] MEDS: Sucralfate 1 GM TABLET PO ×4 (08:22→20:57)
[2023-09-17] MEDS: Docusate Sodium 100 MG CAPSULE PO ×2 (08:22→20:58)
[2023-09-17] MEDS: hydrALAZINE HCl 50 MG TABLET PO ×2 (08:22→20:57)
[2023-09-17] MEDS: Furosemide 40 MG TABLET PO ×2 (08:22→20:58)
[2023-09-17] MEDS: Isosorbide Mononitrate 60 MG TAB.ER.24H PO (08:22)
[2023-09-17] MEDS: Sertraline HCL 100 MG TABLET PO (08:22)
[2023-09-17] MEDS: amLODIPine Besylate 5 MG TABLET PO (08:22)
[2023-09-17] MEDS: Cholecalciferol (Vitamin D3) 25 MCG TABLET 50 MCG PO (08:23)
[2023-09-17] MEDS: Spironolactone 25 MG TABLET PO (08:23)
[2023-09-17] MEDS: Potassium Chloride ER 10 MEQ TABLET.ER 20 MEQ PO (08:23)
[2023-09-17] MEDS: allopurinoL 100 MG TABLET PO (08:23)
[2023-09-17] MEDS: Cyanocobalamin (Vitamin B-12) 1,000 MCG TABLET 1000 MCG PO (08:23)
[2023-09-17] MEDS: carvediloL 12.5 MG TABLET PO (08:24)
[2023-09-17] MEDS: Lidocaine 4 % Patch ADH..PATCH 2 PATCH TRANSDERMA (08:24)
[2023-09-17] MEDS: Famotidine/PF 20 MG/2 ML VIAL IVPUSH (08:24)
[2023-09-17] MEDS: polyethylene glycoL 3350 17 GM POWD.PACK PO (08:24)
[2023-09-17] MEDS: 0.9 % Sodium Chloride Flush 3 ML SYRINGE IVFLUSH (08:25)
[2023-09-17] MEDS: cefTRIAXone sodium 1 GM in 0.9 % Sodium Chloride 50 ML IV (08:25)
[2023-09-17 09:51] LABS: Adenovirus PCR Not Detected (Not Detect.); Bordetella parapertussis PCR Not Detected (Not Detect.); Bordetella pertussis PCR Not Detected (Not Detect.); Chlamydia pneumoniae PCR Not Detected (Not Detect.); Coronavirus 229E PCR Not Detected (Not Detect.); Coronavirus HKU1 PCR Not Detected (Not Detect.); Coronavirus NL63 PCR Not Detected (Not Detect.); Coronavirus OC43 PCR Not Detected (Not Detect.); Human metapneumovirus PCR Not Detected (Not Detect.); Influenza A PCR Not Detected (Not Detect.); Influenza B PCR Not Detected (Not Detect.); Mycoplasma pneumoniae PCR Not Detected (Not Detect.); Parainfluenza 1 PCR Not Detected (Not Detect.); Parainfluenza 2 PCR Not Detected (Not Detect.); Parainfluenza 3 PCR Detected (Not Detect.); Parainfluenza 4 PCR Not Detected (Not Detect.); RSV PCR Not Detected (Not Detect.); Rhino/Enterovirus PCR Not Detected (Not Detect.)
[2023-09-17 10:19] LABS: SARS-CoV-2 PCR Not Detected (Not Detect.)
[2023-09-17] MEDS: Doxycycline Hyclate 100 MG in 0.9 % Sodium Chloride 250 ML 166.67 MG IV ×2 (10:28→20:58)
--- NOTE | 2023-09-17 13:39 | P.PNIM_ITS ---
Subjective Subjective Date of Service: 09/17/23 Interval History: seen and examined this morning follow up for placement, federico, chf chest CT now with pneumonia RPP + for parainfluenza no further hemoptysis Review of Systems Review of Systems: Yes all other systems are reviewed and are negative Constitutional Constitutional: Denies chills and Denies fever(s) Physical Exam 2 Vital Signs: Vital Signs: Last Vital Signs Temp 97.8 F 09/17/23 07:29 Pulse 66 09/17/23 07:29 Resp 14 09/17/23 07:29 BP 127/77 09/17/23 08:24 Pulse Ox 96 09/17/23 07:29 O2 Del Method Nasal Cannula 09/17/23 07:29 O2 Flow Rate 2 09/17/23 07:29 BMI result Body Mass Index 20.5 Const: General: cooperative, comfortable, no acute distress, alert and awake Nutritional Appearance: average body habitus Orientation/consciousness: o riented to person and oriented to place Resp: Effort & Inspection: normal respiratory effort, able to speak in complete sentences, no respiratory distress and no use of accessory muscles Cardio: Rate: regular rate GI: Inspection: No distended Palpation (GI): Soft to palpation and nontender Neuro: General: oriented to person, oriented to place, moves all extremities and CN's II-XI intact bilaterally Extrem: General: Yes no pedal edema Objective Data Active Medications Acetaminophen (Acetaminophen 325 Mg Tablet) 650 mg PO Q6H PRN PRN Reason: Pain, Mild (Pain Scale 1-3) Last Admin: 09/13/23 13:57 Dose: 650 mg Documented By: STACIE Allopurinol (Allopurinol 100 Mg Tablet) 100 mg PO DAILY [facility] Last Admin: 09/17/23 08:23 Dose: 100 mg Documented By: TJ Amlodipine Besylate (Amlodipine Besylate 5 Mg Tablet) 5 mg PO DAILY [facility]; Protocol Last Admin: 09/17/23 08:22 Dose: 5 mg Documented By: TJ Apixaban (Apixaban 5 Mg Tablet) 5 mg PO BID [facility] Last Admin: 09/16/23 08:35 Dose: 5 mg Documented By: TJ Atorvastatin Calcium (Atorvastatin Calcium 40 Mg Tablet) 40 mg PO DAILY [facility] Last Admin: 09/17/23 08:21 Dose: 40 mg Documented By: TJ Bupropion HCl (Bupropion Hcl Xl 150 Mg Tab.Er.24h) 150 mg PO DAILY [facility] Last Admin: 09/17/23 08:22 Dose: 150 mg Documented By: TJ Carvedilol (Carvedilol 12.5 Mg Tablet) 12.5 mg PO BID [facility]; Protocol Last Admin: 09/17/23 08:24 Dose: 12.5 mg Documented By: TJ Clonidine HCl (Clonidine Hcl 0.1 Mg Tablet) 0.1 mg PO TID [facility]; Protocol Last Admin: 09/17/23 08:22 Dose: 0.1 mg Documented By: TJ Clopidogrel Bisulfate (Clopidogrel Bisulfate 75 Mg Tablet) 75 mg PO DAILY [facility] Last Admin: 09/16/23 08:35 Dose: 75 mg Documented By: TJ Cyanocobalamin (Cyanocobalamin (Vitamin B-12) 1,000 Mcg Tablet) 1,000 mcg PO DAILY [facility] Last Admin: 09/17/23 08:23 Dose: 1,000 mcg Documented By: TJ Docusate Sodium (Docusate Sodium 100 Mg Capsule) 100 mg PO BID [facility] Last Admin: 09/17/23 08:22 Dose: 100 mg Documented By: TJ Famotidine (Famotidine/Pf 20 Mg/2 Ml Vial) 20 mg IVPUSH DAILY [facility] Last Admin: 09/17/23 08:24 Dose: 20 mg Documented By: TJ Ferrous Sulfate (Ferrous Sulfate 324 Mg Tablet.Dr) 324 mg PO BIDWM [facility] Last Admin: 09/17/23 08:21 Dose: 324 mg Documented By: TJ Furosemide (Furosemide 40 Mg Tablet) 40 mg PO BID [facility]; Protocol Last Admin: 09/17/23 08:22 Dose: 40 mg Documented By: TJ Guaifenesin/Codeine Phosphate (Guaifen/Codeine Sf 200/20/10ml 10 Ml Liquid) 5 ml PO Q6H PRN PRN Reason: cough Last Admin: 09/17/23 08:20 Dose: 5 ml Documented By: TJ Hydralazine HCl (Hydralazine Hcl 50 Mg Tablet) 50 mg PO TID [facility]; Protocol Last Admin: 09/17/23 08:22 Dose: 50 mg Documented By: TJ Ceftriaxone Sodium 1 gm/ (Sodium Chloride) 50 mls @ 100 mls/hr IV Q24H [facility] Last Infusion: 09/17/23 10:03 Dose: Infused Documented By: JT Doxycycline Hyclate 100 mg/ (Sodium Chloride) 250 mls @ 166.67 mls/hr IV BID [facility] Last Infusion: 09/17/23 12:26 Dose: Infused Documented By: TJ Isosorbide Mononitrate (Isosorbide Mononitrate 60 Mg Tab.Er.24h) 60 mg PO DAILY [facility]; Protocol Last Admin: 09/17/23 08:22 Dose: 60 mg Documented By: TJ Lidocaine (Lidocaine 4 % Patch Adh..Patch) 2 patch TRANSDERMA DAILY [facility]; Protocol Last Admin: 09/17/23 08:24 Dose: 2 patch Documented By: TJ Lorazepam (Lorazepam 0.5 Mg Tablet) 0.5 mg PO Q8H PRN PRN Reason: anxiety/restlessness Last Admin: 09/16/23 18:16 Dose: 0.5 mg Documented By: TJ Melatonin (Melatonin 3 Mg Tablet) 6 mg PO BEDTIME PRN PRN Reason: Insomnia Last Admin: 09/15/23 20:39 Dose: 6 mg Documented By: JANET Omeprazole (Omeprazole 20 Mg Capsule.Dr) 20 mg PO DAILY@0630 [facility] Last Admin: 09/17/23 06:05 Dose: 20 mg Documented By: LANIE Ondansetron HCl (Ondansetron Odt 4 Mg Tab.Rapdis) 4 mg TRANSLINGU Q8H PRN PRN Reason: Nausea And Vomiting Last Admin: 09/06/23 23:09 Dose: 4 mg Documented By: EFRAIN Comments: Early admin ok per . Ondansetron HCl (Ondansetron Hcl 4 Mg/2 Ml Vial) 4 mg IVPUSH Q8H PRN PRN Reason: Nausea and Vomiting Last Admin: 09/16/23 15:02 Dose: 4 mg Documented By: TJ Oxycodone HCl (Oxycodone Hcl Immed Release 15 Mg Tablet) 15 mg PO Q4H PRN PRN Reason: Pain, Moderate(Pain Scale 4-6) Last Admin: 09/17/23 12:15 Dose: 15 mg Documented By: TJ Polyethylene Glycol (Polyethylene Glycol 3350 17 Gm Powd.Pack) 17 gm PO DAILY [facility] Last Admin: 09/17/23 08:24 Dose: 17 gm Documented By: TJ Potassium Chloride (Potassium Chloride Er 10 Meq Tablet.Er) 10 meq PO BEDTIME [facility] Last Admin: 09/16/23 20:56 Dose: Not Given Documented By: RASHEL Non-Admin Reason: Patient Refused Potassium Chloride (Potassium Chloride Er 10 Meq Tablet.Er) 20 meq PO DAILY [facility] Last Admin: 09/17/23 08:23 Dose: 20 meq Documented By: TJ Sertraline HCl (Sertraline Hcl 100 Mg Tablet) 100 mg PO DAILY [facility] Last Admin: 09/17/23 08:22 Dose: 100 mg Documented By: TJ Sodium Chloride (0.9 % Sodium Chloride Flush 3 Ml Syringe) 3 ml IVFLUSH QSHIFT [facility] Last Admin: 09/16/23 20:57 Dose: Not Given Documented By: RASHEL Non-Admin Reason: Patient Refused Spironolactone (Spironolactone 25 Mg Tablet) 25 mg PO DAILY [facility]; Protocol Last Admin: 09/17/23 08:23 Dose: 25 mg Documented By: TJ Sucralfate (Sucralfate 1 Gm Tablet) 1 gm PO QIDACHS [facility] Last Admin: 09/17/23 12:15 Dose: 1 gm Documented By: TJ Vitamin D (Cholecalciferol (Vitamin D3) 25 Mcg Tablet) 50 mcg PO DAILY [facility] Last Admin: 09/17/23 08:23 Dose: 50 mcg Documented By: TJ Labs 09/17/23 05:51 09/17/23 05:51 Labs: Laboratory Results - last 24 hr 09/16/23 09/17/23 09/17/23 16:43 05:51 08:45 MCV 86.1 MCH 27.8 MCHC 32.3 RDW 16.9 H Plt Count 103 L MPV 10.6 Absolute Nucleated RBC 0.000 Nucleated RBC % (auto) 0.0 Hold Purple Top SEE NOTE Anion Gap 14 Estim Creat Clear Calc 47.7 Estimated GFR 49 Random Glucose 91 Calcium 9.3 Troponin I High Sens 13.8 Procalcitonin 0.15 Respiratory Panel Ortega See Note Adenovirus (Rapid PCR) Not Detected B.pert (TEM-PCR) Not Detected B.parapertussis DNA PCR Not Detected C. pneumoniae DNA (PCR) Not Detected Coronavirus OC43 (PCR) Not Detected Coronavirus HKU1 (PCR) Not Detected Coronavirus 229E (PCR) Not Detected Coronavirus NL63 (PCR) Not Detected Human Metapneumovir PCR Not Detected Influenza A (RT-PCR) Not Detected Influenza B (RT-PCR) Not Detected M. pneumoniae (PCR) Not Detected Parainfluenza 1 (PCR) Not Detected Parainfluenza 2 (PCR) Not Detected Parainfluenza 3 (PCR) Detected A Parainfluenza 4 (PCR) Not Detected RSV (PCR) Not Detected Entero/Rhino (PCR) Not Detected SARS-CoV-2 RNA (RT-PCR) Not Detected Assessment and Plan (1) Parainfluenza: Status: Acute Plan 68-year-old man admitted with weakness, failure to thrive, [place]. Found in his home covered in feces and urine. pneumonia, possible viral Chest CT showing diffuse ground-glass airspace opacity in the left upper lobe adjacent to the major fissure. May be infectious or inflammatory RPP + for parainfluenza no sepsis will check procalcitonin start empiric antibiotics blood cultures pending Hemoptysis no selvin blood but blood tinged phlegm hold eliquis improving , H/H stable FEDERICO on CKD stage 3 Thought to be secondary to dehydration, but given HICKS with ivf initiation and held furosemide, suspect cardiorenal r/t volume overload DC IVF s/p IV Furosemide 40mg renal function improving follow BMP HICKS, likely due to acute on chronic CHF- probably right HF in the setting of severe pulmonary hypertension vs diastolic dysfunction echo with preserved ejection fraction, [id number] tricuspid valve regurgitation, severe pulmonary hypertension, mildly decreased right ventricular systolic function s/p IV lasix 40mg resumed on home lasix and aldactone potassium supplementation resumed at home dose Above pneumonia likely contributing N/V/Abd pain KUB negative for obstructive but shows significant stool burden H/H stable Ondansetron prn bowel regimen given chronic narcotic use and iron supplementation Failure to thrive Supportive care Physical therapy recommended long-term care Psychiatric consult - patient does not have capacity to make medical decisions, healthcare proxy has been invoked Plan for guardianship in process Seen by psych - plan to add low dose seroquel to prevent sundowning and prn for agitation Chronic pain will continue home oxycodone 15 mg Q4hrs PCP said that they were weaning him down and he was currently at 90mg a day lidocaine patch to knees as needed Normocytic anemia H/H stable,stool occult negative iron studies with low iron, normal TIBC, ferritin on low side continue iron supplementation. continue bowel regimen pancytopenia No baseline for comparison US with no evidence of liver disease hematology consult pending - further work up pending Hypertension Continue amlodipine, hydralazine, coreg, clonidine Atrial fibrillation, paroxysmal HR controlled On Eliquis and carvedilol Hyperlipidemia continue statin CAD continue BB, statin, imdur Mental health Continue zoloft, wellbutrin JOSE ALEJANDRO not on cpap DVT prophylaxis with Eliquis Full code d/w Dr. Urbina Requires ongoing inpatient stay for process of guardianship with no safe disposition , now with suspected chf exacberation requiring iv diuresis and close monitoring of renal fx and lytes Quality Stroke Does the patient have a stroke diagnosis?: No VTE Prior VTE?: No VTE Risk Level:: Medical - moderate - high VTE Device Contraindication: Treatment Not Indicated VTE Drug Contraindication: N/A - Med Ordered
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
--- NOTE | 2023-09-17 14:42 | PC.NURSE ---
HR 50's. BP 106/60/. Due for clonidine and hydralazine. Ordered to hold per Candie VALDEZ
[2023-09-17] MEDS: QUEtiapine Fumarate 25 MG TABLET 12.5 MG PO (16:46)
--- NOTE | 2023-09-17 20:39 | PC.NURSE ---
BP 128/72 pulse 60,Dr. Grimaldo notified,will hold clonidine and Coreg tonight
[2023-09-17] MEDS: Potassium Chloride ER 10 MEQ TABLET.ER PO (20:58)
[2023-09-18] VITALS (11 sets, daily range): BP systolic 99–138; BP diastolic 56–90; PULSE 56–72; RESP 15–20; TEMP 36.4–36.6; O2SAT 94–95
[2023-09-18] MEDS: 0.9 % Sodium Chloride Flush 3 ML SYRINGE IVFLUSH ×4 (00:35→23:38)
[2023-09-18] MEDS: oxyCODONE HCl Immed Release 15 MG TABLET PO ×4 (02:52→17:02)
[2023-09-18] MEDS: Omeprazole 20 MG CAPSULE.DR PO (06:34)
[2023-09-18] MEDS: Famotidine/PF 20 MG/2 ML VIAL IVPUSH (08:13)
[2023-09-18] MEDS: polyethylene glycoL 3350 17 GM POWD.PACK PO (08:13)
[2023-09-18] MEDS: cefTRIAXone sodium 1 GM in 0.9 % Sodium Chloride 50 ML IV (08:14)
[2023-09-18] MEDS: buPROPion HCl XL 150 MG TAB.ER.24H PO (08:15)
[2023-09-18] MEDS: Sucralfate 1 GM TABLET PO ×4 (08:15→21:14)
[2023-09-18] MEDS: Sertraline HCL 100 MG TABLET PO (08:15)
[2023-09-18] MEDS: Atorvastatin Calcium 40 MG TABLET PO (08:15)
[2023-09-18] MEDS: Furosemide 40 MG TABLET PO ×2 (08:15→21:15)
[2023-09-18] MEDS: Potassium Chloride ER 10 MEQ TABLET.ER 20 MEQ PO (08:15)
[2023-09-18] MEDS: Ferrous Sulfate 324 MG TABLET.DR PO ×2 (08:16→17:02)
[2023-09-18] MEDS: Cyanocobalamin (Vitamin B-12) 1,000 MCG TABLET 1000 MCG PO (08:16)
[2023-09-18] MEDS: Spironolactone 25 MG TABLET PO (08:16)
[2023-09-18] MEDS: amLODIPine Besylate 5 MG TABLET PO (08:16)
[2023-09-18] MEDS: hydrALAZINE HCl 50 MG TABLET PO ×2 (08:16→21:14)
[2023-09-18] MEDS: allopurinoL 100 MG TABLET PO (08:16)
[2023-09-18] MEDS: Docusate Sodium 100 MG CAPSULE PO ×2 (08:16→21:14)
[2023-09-18] MEDS: carvediloL 12.5 MG TABLET PO (08:16)
[2023-09-18] MEDS: Cholecalciferol (Vitamin D3) 25 MCG TABLET 50 MCG PO (08:16)
[2023-09-18] MEDS: Isosorbide Mononitrate 60 MG TAB.ER.24H PO (08:17)
[2023-09-18] MEDS: Lidocaine 4 % Patch ADH..PATCH 2 PATCH TRANSDERMA (08:17)
[2023-09-18] MEDS: cloNIDine HCL 0.1 MG TABLET PO (08:17)
[2023-09-18] MEDS: Doxycycline Hyclate 100 MG in 0.9 % Sodium Chloride 250 ML 166.66 MG IV ×2 (09:10→21:13)
--- NOTE | 2023-09-18 10:52 | P.PNIM_ITS ---
Subjective Subjective Date of Service: 09/18/23 Interval History: Seen and examined this morning Follow-up for placement, CHF, now with parainfluenza/pneumonia Not feeling well but shortness of breath has improved, still with some coughing, no further hemoptysis observed Review of Systems Review of Systems: Yes all other systems are reviewed and are negative Constitutional Constitutional: Denies chills and Denies fever(s) Cardiovascular Cardiovascular: Denies chest pain Respiratory Respiratory: Reports cough Gastrointestinal Gastrointestinal: Denies abdominal pain Physical Exam 2 Vital Signs: Vital Signs: Last Vital Signs Temp 97.5 F 09/18/23 08:00 Pulse 72 09/18/23 08:00 Resp 18 09/18/23 08:00 BP 138/90 H 09/18/23 08:17 Pulse Ox 94 09/18/23 08:00 O2 Del Method Nasal Cannula 09/18/23 08:00 O2 Flow Rate 2 09/18/23 08:00 BMI result Body Mass Index 20.5 Const: General: cooperative, comfortable, no acute distress, alert and awake Nutritional Appearance: average body habitus Orientation/consciousness: o riented to person, oriented to place and patient oriented x3 Resp: Effort & Inspection: normal respiratory effort, able to speak in complete sentences, no respiratory distress and no use of accessory muscles Cardio: Rate: regular rate GI: Inspection: No distended Palpation (GI): Soft to palpation and nontender Neuro: General: oriented to person, oriented to place, patient oriented x3, moves all extremities and CN's II-XI intact bilaterally Extrem: General: Yes no pedal edema Objective Data Active Medications Acetaminophen (Acetaminophen 325 Mg Tablet) 650 mg PO Q6H PRN PRN Reason: Pain, Mild (Pain Scale 1-3) Last Admin: 09/13/23 13:57 Dose: 650 mg Documented By: STACIE Allopurinol (Allopurinol 100 Mg Tablet) 100 mg PO DAILY [facility] Last Admin: 09/18/23 08:16 Dose: 100 mg Documented By: TJ Amlodipine Besylate (Amlodipine Besylate 5 Mg Tablet) 5 mg PO DAILY [facility]; Protocol Last Admin: 09/18/23 08:16 Dose: 5 mg Documented By: TJ Apixaban (Apixaban 5 Mg Tablet) 5 mg PO BID [facility] Last Admin: 09/16/23 08:35 Dose: 5 mg Documented By: TJ Atorvastatin Calcium (Atorvastatin Calcium 40 Mg Tablet) 40 mg PO DAILY [facility] Last Admin: 09/18/23 08:15 Dose: 40 mg Documented By: TJ Bupropion HCl (Bupropion Hcl Xl 150 Mg Tab.Er.24h) 150 mg PO DAILY [facility] Last Admin: 09/18/23 08:15 Dose: 150 mg Documented By: TJ Carvedilol (Carvedilol 12.5 Mg Tablet) 12.5 mg PO BID [facility]; Protocol Last Admin: 09/18/23 08:16 Dose: 12.5 mg Documented By: TJ Clonidine HCl (Clonidine Hcl 0.1 Mg Tablet) 0.1 mg PO TID [facility]; Protocol Last Admin: 09/18/23 08:17 Dose: 0.1 mg Documented By: TJ Clopidogrel Bisulfate (Clopidogrel Bisulfate 75 Mg Tablet) 75 mg PO DAILY [facility] Last Admin: 09/16/23 08:35 Dose: 75 mg Documented By: TJ Cyanocobalamin (Cyanocobalamin (Vitamin B-12) 1,000 Mcg Tablet) 1,000 mcg PO DAILY [facility] Last Admin: 09/18/23 08:16 Dose: 1,000 mcg Documented By: TJ Docusate Sodium (Docusate Sodium 100 Mg Capsule) 100 mg PO BID [facility] Last Admin: 09/18/23 08:16 Dose: 100 mg Documented By: TJ Famotidine (Famotidine/Pf 20 Mg/2 Ml Vial) 20 mg IVPUSH DAILY [facility] Last Admin: 09/18/23 08:13 Dose: 20 mg Documented By: TJ Ferrous Sulfate (Ferrous Sulfate 324 Mg Tablet.Dr) 324 mg PO BIDWM [facility] Last Admin: 09/18/23 08:16 Dose: 324 mg Documented By: TJ Furosemide (Furosemide 40 Mg Tablet) 40 mg PO BID [facility]; Protocol Last Admin: 09/18/23 08:15 Dose: 40 mg Documented By: TJ Guaifenesin/Codeine Phosphate (Guaifen/Codeine Sf 200/20/10ml 10 Ml Liquid) 5 ml PO Q6H PRN PRN Reason: cough Last Admin: 09/17/23 22:57 Dose: 5 ml Documented By: SHAI Comments: patient requested med for c/o cough Hydralazine HCl (Hydralazine Hcl 50 Mg Tablet) 50 mg PO TID [facility]; Protocol Last Admin: 09/18/23 08:16 Dose: 50 mg Documented By: TJ Ceftriaxone Sodium 1 gm/ (Sodium Chloride) 50 mls @ 100 mls/hr IV Q24H [facility] Last Infusion: 09/18/23 09:15 Dose: Infused Documented By: TJ Doxycycline Hyclate 100 mg/ (Sodium Chloride) 250 mls @ 166.67 mls/hr IV BID [facility] Last Admin: 09/18/23 09:10 Dose: 166.66 mls/hr Documented By: TJ Isosorbide Mononitrate (Isosorbide Mononitrate 60 Mg Tab.Er.24h) 60 mg PO DAILY [facility]; Protocol Last Admin: 09/18/23 08:17 Dose: 60 mg Documented By: TJ Lidocaine (Lidocaine 4 % Patch Adh..Patch) 2 patch TRANSDERMA DAILY [facility]; Protocol Last Admin: 09/18/23 08:17 Dose: 2 patch Documented By: TJ Lorazepam (Lorazepam 0.5 Mg Tablet) 0.5 mg PO Q8H PRN PRN Reason: anxiety/restlessness Last Admin: 09/16/23 18:16 Dose: 0.5 mg Documented By: TJ Melatonin (Melatonin 3 Mg Tablet) 6 mg PO BEDTIME PRN PRN Reason: Insomnia Last Admin: 09/15/23 20:39 Dose: 6 mg Documented By: JANET Omeprazole (Omeprazole 20 Mg Capsule.Dr) 20 mg PO DAILY@0630 [facility] Last Admin: 09/18/23 06:34 Dose: 20 mg Documented By: LANIE Ondansetron HCl (Ondansetron Odt 4 Mg Tab.Rapdis) 4 mg TRANSLINGU Q8H PRN PRN Reason: Nausea And Vomiting Last Admin: 09/06/23 23:09 Dose: 4 mg Documented By: EFRAIN Comments: Early admin ok per . Ondansetron HCl (Ondansetron Hcl 4 Mg/2 Ml Vial) 4 mg IVPUSH Q8H PRN PRN Reason: Nausea and Vomiting Last Admin: 09/16/23 15:02 Dose: 4 mg Documented By: TJ Oxycodone HCl (Oxycodone Hcl Immed Release 15 Mg Tablet) 15 mg PO Q4H PRN PRN Reason: Pain, Moderate(Pain Scale 4-6) Last Admin: 09/18/23 08:28 Dose: 15 mg Documented By: TJ Polyethylene Glycol (Polyethylene Glycol 3350 17 Gm Powd.Pack) 17 gm PO DAILY [facility] Last Admin: 09/18/23 08:13 Dose: 17 gm Documented By: TJ Potassium Chloride (Potassium Chloride Er 10 Meq Tablet.Er) 10 meq PO BEDTIME [facility] Last Admin: 09/17/23 20:58 Dose: 10 meq Documented By: SHAI Potassium Chloride (Potassium Chloride Er 10 Meq Tablet.Er) 20 meq PO DAILY [facility] Last Admin: 09/18/23 08:15 Dose: 20 meq Documented By: TJ Quetiapine Fumarate (Quetiapine Fumarate 25 Mg Tablet) 12.5 mg PO DAILY@1700 [facility] Last Admin: 09/17/23 16:46 Dose: 12.5 mg Documented By: SHAI Quetiapine Fumarate (Quetiapine Fumarate 25 Mg Tablet) 25 mg PO BID PRN PRN Reason: psychosis Sertraline HCl (Sertraline Hcl 100 Mg Tablet) 100 mg PO DAILY [facility] Last Admin: 09/18/23 08:15 Dose: 100 mg Documented By: TJ Sodium Chloride (0.9 % Sodium Chloride Flush 3 Ml Syringe) 3 ml IVFLUSH QSHIFT [facility] Last Admin: 09/18/23 08:17 Dose: 3 ml Documented By: TJ Spironolactone (Spironolactone 25 Mg Tablet) 25 mg PO DAILY [facility]; Protocol Last Admin: 09/18/23 08:16 Dose: 25 mg Documented By: TJ Sucralfate (Sucralfate 1 Gm Tablet) 1 gm PO QIDACHS [facility] Last Admin: 09/18/23 08:15 Dose: 1 gm Documented By: TJ Vitamin D (Cholecalciferol (Vitamin D3) 25 Mcg Tablet) 50 mcg PO DAILY [facility] Last Admin: 09/18/23 08:16 Dose: 50 mcg Documented By: TJ Labs 09/17/23 05:51 09/17/23 05:51 Microbiology Microbiology Results: Microbiology 09/17/23 08:14 Blood Culture - Preliminary Blood - Venous No growth after 24 hours. 09/17/23 08:09 Blood Culture - Preliminary Blood - Venous No growth after 24 hours. Assessment and Plan (1) Parainfluenza: Status: Acute (2) Hemoptysis: Status: Acute (3) Pneumonia: Status: Acute Plan 68-year-old man admitted with weakness, failure to thrive, [place]. Found in his home covered in feces and urine. pneumonia, possible viral Chest CT showing diffuse ground-glass airspace opacity in the left upper lobe adjacent to the major fissure. May be infectious or inflammatory RPP + for parainfluenza no sepsis Procalcitonin low, probable viral but will continue empiric antibiotics, ceftriaxone and doxycycline for now blood cultures negative to date Hemoptysis no selvin blood but blood tinged phlegm hold eliquis, likely 7 days improving , H/H stable FEDER[place] on CKD stage 3 Thought to be secondary to dehydration, but given HICKS with ivf initiation and held furosemide, suspect cardiorenal r/t volume overload DC IVF s/p IV Furosemide 40mg renal function improving follow BMP HICKS, likely due to acute on chronic CHF- probably right HF in the setting of severe pulmonary hypertension vs diastolic dysfunction echo with preserved ejection fraction, [id number] tricuspid valve regurgitation, severe pulmonary hypertension, mildly decreased right ventricular systolic function s/p IV lasix 40mg resumed on home lasix and aldactone potassium supplementation resumed at home dose dyspnea improving, PNA likely contributing N/V/Abd pain KUB negative for obstructive but shows significant stool burden H/H stable Ondansetron prn bowel regimen given chronic narcotic use and iron supplementation. having stools Failure to thrive Supportive care Physical therapy recommended long-term care Psychiatric consult - patient does not have capacity to make medical decisions, healthcare proxy has been invoked Plan for guardianship in process Seen by psych - plan to add low dose seroquel to prevent sundowning and prn for agitation Chronic pain will continue home oxycodone 15 mg Q4hrs PCP said that they were weaning him down and he was currently at 90mg a day lidocaine patch to knees as needed Normocytic anemia H/H stable,stool occult negative iron studies with low iron, normal TIBC, ferritin on low side continue iron supplementation. continue bowel regimen pancytopenia No baseline for comparison US with no evidence of liver disease hematology consult pending - further work up pending Hypertension Continue amlodipine, hydralazine, coreg, clonidine Atrial fibrillation, paroxysmal HR controlled On Eliquis and carvedilol Hyperlipidemia continue statin CAD continue BB, statin, imdur Mental health Continue zoloft, wellbutrin JOSE ALEJANDRO not on cpap DVT prophylaxis - Eliquis on hold for hemoptysis, compression boots Full code Requires ongoing inpatient stay for process of guardianship with no safe disposition , now with suspected chf exacberation requiring iv diuresis and close monitoring of renal fx and lytes Quality Stroke Does the patient have a stroke diagnosis?: No VTE Prior VTE?: No VTE Risk Level:: Medical - moderate - high VTE Device Contraindication: Treatment Not Indicated VTE Drug Contraindication: N/A - Med Ordered
[2023-09-18] MEDS: ondansetron HCL 4 MG/2 ML VIAL IVPUSH (12:38)
--- NOTE | 2023-09-18 14:48 | PC.NURSE ---
HR 50's. BP 99/56. Clonidine and hydralazine held per Candie VALDEZ
[2023-09-18] MEDS: guaiFEN/Codeine SF 200/20/10ML 10 ML LIQUID 5 ML PO ×2 (17:01→23:37)
[2023-09-18] MEDS: QUEtiapine Fumarate 25 MG TABLET 12.5 MG PO (17:08)
[2023-09-18] MEDS: Potassium Chloride ER 10 MEQ TABLET.ER PO (21:14)
[2023-09-19] VITALS (8 sets, daily range): BP systolic 110–146; BP diastolic 67–94; PULSE 65–70; RESP 18–20; TEMP 36.4–36.6; O2SAT 92–95
[2023-09-19] MEDS: oxyCODONE HCl Immed Release 15 MG TABLET PO ×6 (00:07→23:21)
[2023-09-19] MEDS: Omeprazole 20 MG CAPSULE.DR PO (06:10)
[2023-09-19] MEDS: guaiFEN/Codeine SF 200/20/10ML 10 ML LIQUID 5 ML PO ×3 (07:07→23:20)
[2023-09-19 07:09] LABS: MANUAL DIFF FLAG NO
[2023-09-19] MEDS: Ferrous Sulfate 324 MG TABLET.DR PO ×2 (07:09→17:15)
[2023-09-19] MEDS: Sucralfate 1 GM TABLET PO ×4 (07:09→20:30)
[2023-09-19] MEDS: 0.9 % Sodium Chloride Flush 3 ML SYRINGE IVFLUSH ×2 (07:15→20:33)
[2023-09-19] MEDS: cefTRIAXone sodium 1 GM in 0.9 % Sodium Chloride 50 ML IV (07:16)
--- NOTE | 2023-09-19 07:24 | PC.NURSE ---
order to ambulate d/c, pt is bed bound.
[2023-09-19 07:26] LABS: Basophils Percent Auto 0.2 % (0-2); Eosinophils Absolute Auto 0.1 X10*3/uL (0.0-0.4); Eosinophils Percent Auto 2.9 % (0-4); Hemoglobin 9.8 g/dl (14.0-18.0); Imm Gran Abs Auto 0.02 X10*3/uL (0.00-0.03); Imm Gran Pct Auto 0.5 % (0.0-0.4); Lymphocytes Percent Auto 22.7 % (20-40); Mean Corpuscular HGB Conc 32.7 g/dl (31.0-36.0); Mean Corpuscular Hemoglobin 28.2 pg (27.0-33.0); Mean Corpuscular Volume 86.2 fL (80.0-98.0); Mean Platelet Volume 10.6 fL (9.4-12.4); Monocytes Absolute Auto 0.4 X10*3/uL (0.1-1.2); Monocytes Percent Auto 10.5 % (2-11); Neutrophils Absolute Auto 2.6 x10*3/uL (2.0-8.3); Neutrophils Percent Auto 63.2 % (45-73); Platelet Count 140 X10*3/uL (160-400); Red Blood Count 3.48 X10*6/uL (4.60-5.80); Red Cell Distribution Width 16.8 % (11.0-16.0); White Blood Count 4.2 X10*3/uL (4.8-10.8)
[2023-09-19 07:32] LABS: Anion Gap 17 (12-20); Blood Urea Nitrogen 36 mg/dL (9-16); Calcium 9.8 mg/dL (8.4-10.2); Carbon Dioxide 26 mmol/L (22-29); Chloride 103 mmol/L (96-108); Creatinine Clr Calc Pharmacy 38.9; Estimated Glomerular Filt Rate 39; Glucose Random 83 mg/dL (60-115); Potassium 4.9 mmol/L (3.3-5.1); Sodium 141 mmol/L (135-145)
[2023-09-19] MEDS: Famotidine/PF 20 MG/2 ML VIAL IVPUSH (07:58)
[2023-09-19] MEDS: Doxycycline Hyclate 100 MG in 0.9 % Sodium Chloride 250 ML 166.67 MG IV (08:04)
[2023-09-19] MEDS: polyethylene glycoL 3350 17 GM POWD.PACK PO (08:07)
[2023-09-19] MEDS: Lidocaine 4 % Patch ADH..PATCH 2 PATCH TRANSDERMA (08:08)
[2023-09-19] MEDS: Potassium Chloride ER 10 MEQ TABLET.ER 20 MEQ PO (08:08)
[2023-09-19] MEDS: Furosemide 40 MG TABLET PO ×2 (08:09→20:30)
[2023-09-19] MEDS: Cholecalciferol (Vitamin D3) 25 MCG TABLET 50 MCG PO (08:09)
[2023-09-19] MEDS: Docusate Sodium 100 MG CAPSULE PO ×2 (08:09→20:32)
[2023-09-19] MEDS: cloNIDine HCL 0.1 MG TABLET PO ×3 (08:09→20:32)
[2023-09-19] MEDS: Atorvastatin Calcium 40 MG TABLET PO (08:09)
[2023-09-19] MEDS: amLODIPine Besylate 5 MG TABLET PO (08:09)
[2023-09-19] MEDS: Cyanocobalamin (Vitamin B-12) 1,000 MCG TABLET 1000 MCG PO (08:09)
[2023-09-19] MEDS: allopurinoL 100 MG TABLET PO (08:09)
[2023-09-19] MEDS: buPROPion HCl XL 150 MG TAB.ER.24H PO (08:09)
[2023-09-19] MEDS: hydrALAZINE HCl 50 MG TABLET PO ×3 (08:09→20:32)
[2023-09-19] MEDS: Sertraline HCL 100 MG TABLET PO (08:09)
[2023-09-19] MEDS: Isosorbide Mononitrate 60 MG TAB.ER.24H PO (08:09)
[2023-09-19] MEDS: carvediloL 12.5 MG TABLET PO ×2 (08:10→20:31)
[2023-09-19] MEDS: Spironolactone 25 MG TABLET PO (08:10)
--- NOTE | 2023-09-19 08:36 | HO.PM.IMPN ---
Subjective Subjective Date of Service: 09/19/23 Interval History: Seen and examined this morning Follow-up for placement, CHF, now with parainfluenza/pneumonia Not feeling well but shortness of breath has improved, still with some coughing, no further hemoptysis observed Review of Systems Review of Systems: Yes all other systems are reviewed and are negative Constitutional Constitutional: Denies chills and Denies fever(s) Cardiovascular Cardiovascular: Denies chest pain Respiratory Respiratory: Reports cough Gastrointestinal Gastrointestinal: Denies abdominal pain Physical Exam Vital Signs: Vital Signs: Last Vital Signs Temp 97.9 F 09/19/23 07:58 Pulse 70 09/19/23 07:58 Resp 18 09/19/23 07:58 BP 138/77 09/19/23 07:58 Pulse Ox 94 09/19/23 07:58 O2 Del Method Room Air 09/19/23 07:58 O2 Flow Rate 2 09/18/23 14:35 BMI result Body Mass Index 20.5 Appearing in no acute distress lung sounds are clear to auscultation heart regular rate rhythm, clear S1, S2 positive bowel sounds, abdomen is soft, nontender neuro patient is alert, confused Objective Data Active Medications Acetaminophen (Acetaminophen 325 Mg Tablet) 650 mg PO Q6H PRN PRN Reason: Pain, Mild (Pain Scale 1-3) Last Admin: 09/13/23 13:57 Dose: 650 mg Documented By: STACIE Allopurinol (Allopurinol 100 Mg Tablet) 100 mg PO DAILY [facility] Last Admin: 09/19/23 08:09 Dose: 100 mg Documented By: DEREJE Amlodipine Besylate (Amlodipine Besylate 5 Mg Tablet) 5 mg PO DAILY [facility]; Protocol Last Admin: 09/19/23 08:09 Dose: 5 mg Documented By: DEREJE Apixaban (Apixaban 5 Mg Tablet) 5 mg PO BID [facility] Last Admin: 09/16/23 08:35 Dose: 5 mg Documented By: TJ Atorvastatin Calcium (Atorvastatin Calcium 40 Mg Tablet) 40 mg PO DAILY [facility] Last Admin: 09/19/23 08:09 Dose: 40 mg Documented By: DEREJE Bupropion HCl (Bupropion Hcl Xl 150 Mg Tab.Er.24h) 150 mg PO DAILY [facility] Last Admin: 09/19/23 08:09 Dose: 150 mg Documented By: DEREJE Carvedilol (Carvedilol 12.5 Mg Tablet) 12.5 mg PO BID [facility]; Protocol Last Admin: 09/19/23 08:10 Dose: 12.5 mg Documented By: DEREJE Clonidine HCl (Clonidine Hcl 0.1 Mg Tablet) 0.1 mg PO TID [facility]; Protocol Last Admin: 09/19/23 08:09 Dose: 0.1 mg Documented By: DEREJE Clopidogrel Bisulfate (Clopidogrel Bisulfate 75 Mg Tablet) 75 mg PO DAILY [facility] Last Admin: 09/16/23 08:35 Dose: 75 mg Documented By: TJ Cyanocobalamin (Cyanocobalamin (Vitamin B-12) 1,000 Mcg Tablet) 1,000 mcg PO DAILY [facility] Last Admin: 09/19/23 08:09 Dose: 1,000 mcg Documented By: DEREJE Docusate Sodium (Docusate Sodium 100 Mg Capsule) 100 mg PO BID [facility] Last Admin: 09/19/23 08:09 Dose: 100 mg Documented By: DEREJE Famotidine (Famotidine/Pf 20 Mg/2 Ml Vial) 20 mg IVPUSH DAILY [facility] Last Admin: 09/19/23 07:58 Dose: 20 mg Documented By: DEREJE Ferrous Sulfate (Ferrous Sulfate 324 Mg Tablet.Dr) 324 mg PO BIDWM [facility] Last Admin: 09/19/23 07:09 Dose: 324 mg Documented By: DEREJE Furosemide (Furosemide 40 Mg Tablet) 40 mg PO BID [facility]; Protocol Last Admin: 09/19/23 08:09 Dose: 40 mg Documented By: DEREJE Guaifenesin/Codeine Phosphate (Guaifen/Codeine Sf 200/20/10ml 10 Ml Liquid) 5 ml PO Q6H PRN PRN Reason: cough Last Admin: 09/19/23 07:07 Dose: 5 ml Documented By: DEREJE Hydralazine HCl (Hydralazine Hcl 50 Mg Tablet) 50 mg PO TID [facility]; Protocol Last Admin: 09/19/23 08:09 Dose: 50 mg Documented By: DEREJE Ceftriaxone Sodium 1 gm/ (Sodium Chloride) 50 mls @ 100 mls/hr IV Q24H [facility] Last Infusion: 09/19/23 08:16 Dose: Infused Documented By: DEREJE Doxycycline Hyclate 100 mg/ (Sodium Chloride) 250 mls @ 166.67 mls/hr IV BID [facility] Last Admin: 09/19/23 08:04 Dose: 166.67 mls/hr Documented By: DEREJE Isosorbide Mononitrate (Isosorbide Mononitrate 60 Mg Tab.Er.24h) 60 mg PO DAILY [facility]; Protocol Last Admin: 09/19/23 08:09 Dose: 60 mg Documented By: DEREJE Lidocaine (Lidocaine 4 % Patch Adh..Patch) 2 patch TRANSDERMA DAILY [facility]; Protocol Last Admin: 09/19/23 08:08 Dose: 2 patch Documented By: DEREJE Lorazepam (Lorazepam 0.5 Mg Tablet) 0.5 mg PO Q8H PRN PRN Reason: anxiety/restlessness Last Admin: 09/16/23 18:16 Dose: 0.5 mg Documented By: TJ Melatonin (Melatonin 3 Mg Tablet) 6 mg PO BEDTIME PRN PRN Reason: Insomnia Last Admin: 09/15/23 20:39 Dose: 6 mg Documented By: JANET Omeprazole (Omeprazole 20 Mg Capsule.Dr) 20 mg PO DAILY@0630 [facility] Last Admin: 09/19/23 06:10 Dose: 20 mg Documented By: LANIE Ondansetron HCl (Ondansetron Odt 4 Mg Tab.Rapdis) 4 mg TRANSLINGU Q8H PRN PRN Reason: Nausea And Vomiting Last Admin: 09/06/23 23:09 Dose: 4 mg Documented By: EFRAIN Comments: Early admin ok per . Ondansetron HCl (Ondansetron Hcl 4 Mg/2 Ml Vial) 4 mg IVPUSH Q8H PRN PRN Reason: Nausea and Vomiting Last Admin: 09/18/23 12:38 Dose: 4 mg Documented By: TJ Oxycodone HCl (Oxycodone Hcl Immed Release 15 Mg Tablet) 15 mg PO Q4H PRN PRN Reason: Pain, Moderate(Pain Scale 4-6) Last Admin: 09/19/23 07:09 Dose: 15 mg Documented By: DEREJE Polyethylene Glycol (Polyethylene Glycol 3350 17 Gm Powd.Pack) 17 gm PO DAILY [facility] Last Admin: 09/19/23 08:07 Dose: 17 gm Documented By: DEREJE Potassium Chloride (Potassium Chloride Er 10 Meq Tablet.Er) 10 meq PO BEDTIME [facility] Last Admin: 09/18/23 21:14 Dose: 10 meq Documented By: SHAI Potassium Chloride (Potassium Chloride Er 10 Meq Tablet.Er) 20 meq PO DAILY [facility] Last Admin: 09/19/23 08:08 Dose: 20 meq Documented By: DEREJE Quetiapine Fumarate (Quetiapine Fumarate 25 Mg Tablet) 12.5 mg PO DAILY@1700 [facility] Last Admin: 09/18/23 17:08 Dose: 12.5 mg Documented By: SHAI Quetiapine Fumarate (Quetiapine Fumarate 25 Mg Tablet) 25 mg PO BID PRN PRN Reason: psychosis Sertraline HCl (Sertraline Hcl 100 Mg Tablet) 100 mg PO DAILY [facility] Last Admin: 09/19/23 08:09 Dose: 100 mg Documented By: DEREJE Sodium Chloride (0.9 % Sodium Chloride Flush 3 Ml Syringe) 3 ml IVFLUSH QSHIFT [facility] Last Admin: 09/19/23 07:15 Dose: 3 ml Documented By: DEREJE Spironolactone (Spironolactone 25 Mg Tablet) 25 mg PO DAILY [facility]; Protocol Last Admin: 09/19/23 08:10 Dose: 25 mg Documented By: DEREJE Sucralfate (Sucralfate 1 Gm Tablet) 1 gm PO QIDACHS [facility] Last Admin: 09/19/23 07:09 Dose: 1 gm Documented By: DEREJE Vitamin D (Cholecalciferol (Vitamin D3) 25 Mcg Tablet) 50 mcg PO DAILY [facility] Last Admin: 09/19/23 08:09 Dose: 50 mcg Documented By: DEREJE Labs 09/19/23 05:43 09/19/23 05:43 Labs: Laboratory Results - last 24 hr 09/19/23 05:43 MCV 86.2 MCH 28.2 MCHC 32.7 RDW 16.8 H Plt Count 140 L D MPV 10.6 Immature Gran % (Auto) 0.5 H Neut % (Auto) 63.2 Lymph % (Auto) 22.7 [place] % (Auto) 10.5 Eos % (Auto) 2.9 Baso % (Auto) 0.2 Lymph # (Auto) 1.0 L [place] # (Auto) 0.4 Eos # (Auto) 0.1 Baso # (Auto) 0.0 Abs Immat Gran (auto) 0.02 Absolute Neuts (auto) 2.6 Absolute Nucleated RBC 0.000 Nucleated RBC % (auto) 0.0 Anion Gap 17 Estim Creat Clear Calc 38.9 Estimated GFR 39 Random Glucose 83 Calcium 9.8 Microbiology Microbiology Results: Microbiology 09/17/23 08:14 Blood Culture - Preliminary Blood - Venous No growth after 24 hours. 09/17/23 08:09 Blood Culture - Preliminary Blood - Venous No growth after 24 hours. Assessment and Plan (1) Parainfluenza: Status: Acute (2) Hemoptysis: Status: Acute (3) Pneumonia: Status: Acute Plan 68-year-old man admitted with weakness, failure to thrive, [place]. Found in his home covered in feces and urine. Pneumonia, possible viral Chest CT showing diffuse ground-glass airspace opacity in the left upper lobe adjacent to the major fissure. RPP + for parainfluenza no sepsis Procalcitonin low, probable viral but will continue empiric antibiotics, ceftriaxone and doxycycline for now blood cultures negative to date Hemoptysis no selvin blood but blood tinged phlegm hold eliquis, 7 days improving , H/H stable [place] on CKD stage 3 Thought to be secondary to dehydration, but given HICKS with ivf initiation and held furosemide, suspect cardiorenal r/t volume overload s/p IVF s/p IV Furosemide 40mg renal function improving follow BMP HICKS, likely due to acute on chronic CHF- probably right HF in the setting of severe pulmonary hypertension vs diastolic dysfunction echo with preserved ejection fraction, [id number] tricuspid valve regurgitation, severe pulmonary hypertension, mildly decreased right ventricular systolic function s/p IV lasix 40mg resumed on home lasix and aldactone potassium supplementation resumed at home dose dyspnea improving, PNA likely contributing N/V/Abd pain KUB negative for obstructive but shows significant stool burden H/H stable Ondansetron prn bowel regimen given chronic narcotic use and iron supplementation. Failure to thrive Supportive care Physical therapy recommended long-term care Psychiatric consult - patient does not have capacity to make medical decisions, healthcare proxy has been invoked Plan for guardianship in process Seen by psych - plan to add low dose seroquel to prevent sundowning and prn for agitation Chronic pain will continue home oxycodone 15 mg Q4hrs PCP said that they were weaning him down and he was currently at 90mg a day lidocaine patch to knees as needed Normocytic anemia H/H stable,stool occult negative iron studies with low iron, normal TIBC, ferritin on low side continue iron supplementation. continue bowel regimen pancytopenia No baseline for comparison US with no evidence of liver disease hematology consult pending - further work up pending Hypertension Continue amlodipine, hydralazine, coreg, clonidine Atrial fibrillation, paroxysmal HR controlled On Eliquis and carvedilol Hyperlipidemia continue statin CAD continue BB, statin, imdur Mental health Continue zoloft, wellbutrin JOSE ALEJANDRO not on cpap DVT prophylaxis - Eliquis on hold for hemoptysis, compression boots Attending Dr. Urbina Full code Requires ongoing inpatient stay for process of guardianship with no safe disposition , now with suspected chf exacberation requiring iv diuresis and close monitoring of renal fx and lytes Quality Stroke Does the patient have a stroke diagnosis?: No VTE Prior VTE?: No VTE Risk Level:: Medical - moderate - high VTE Device Contraindication: Treatment Not Indicated VTE Drug Contraindication: N/A - Med Ordered
--- NOTE | 2023-09-19 09:46 | MHC.CLN ---
F/U DIET=CARDIAC-APPROPRIATE. ENSURE TID (1050 KCALS, 60 G PROTEIN) TO PROMOTE WOUND HEALING. DTI RIGHT HIP AND STAGE II RIGHT ANKLE. NEW DX PARAINFLUENZA/PNEUMONIA. PO INTAKE USUALLY 75-100%. WITH SOME MEALS LOWER. MONITOR PO INTAKE AND ENCOURAGE SUPPLEMENTS.
[2023-09-19] MEDS: LORazepam 0.5 MG TABLET PO (11:05)
--- NOTE | 2023-09-19 11:10 | MHC.CM.PN ---
updated colony danuta/aishwarya/protective on dc planning status of pt [id number] [phone]
--- NOTE | 2023-09-19 13:19 | PC.NURSE ---
Attempted to call [place] from [employer]. Unable to reach said person.
[2023-09-19] MEDS: Acetaminophen 325 MG TABLET 650 MG PO (14:48)
[2023-09-19] MEDS: QUEtiapine Fumarate 25 MG TABLET 12.5 MG PO (17:15)
[2023-09-19] MEDS: Doxycycline Monohydrate 100 MG CAPSULE PO (20:30)
[2023-09-19] MEDS: Potassium Chloride ER 10 MEQ TABLET.ER PO (20:30)
[2023-09-20] VITALS (9 sets, daily range): BP systolic 108–139; BP diastolic 75–91; PULSE 52–75; RESP 16–18; TEMP 36.1–36.5; O2SAT 93–96
[2023-09-20] MEDS: oxyCODONE HCl Immed Release 15 MG TABLET PO ×5 (04:12→22:16)
[2023-09-20] MEDS: Omeprazole 20 MG CAPSULE.DR PO (05:25)
[2023-09-20] MEDS: cefTRIAXone sodium 1 GM in 0.9 % Sodium Chloride 50 ML IV (08:13)
[2023-09-20] MEDS: Isosorbide Mononitrate 60 MG TAB.ER.24H PO (08:13)
[2023-09-20] MEDS: Potassium Chloride ER 10 MEQ TABLET.ER 20 MEQ PO (08:14)
[2023-09-20] MEDS: Ferrous Sulfate 324 MG TABLET.DR PO ×2 (08:14→16:07)
[2023-09-20] MEDS: amLODIPine Besylate 5 MG TABLET PO (08:14)
[2023-09-20] MEDS: Docusate Sodium 100 MG CAPSULE PO ×2 (08:14→22:16)
[2023-09-20] MEDS: Sertraline HCL 100 MG TABLET PO (08:14)
[2023-09-20] MEDS: Sucralfate 1 GM TABLET PO ×4 (08:14→22:16)
[2023-09-20] MEDS: allopurinoL 100 MG TABLET PO (08:14)
[2023-09-20] MEDS: Atorvastatin Calcium 40 MG TABLET PO (08:14)
[2023-09-20] MEDS: Spironolactone 25 MG TABLET PO (08:15)
[2023-09-20] MEDS: Cholecalciferol (Vitamin D3) 25 MCG TABLET 50 MCG PO (08:15)
[2023-09-20] MEDS: Cyanocobalamin (Vitamin B-12) 1,000 MCG TABLET 1000 MCG PO (08:15)
[2023-09-20] MEDS: cloNIDine HCL 0.1 MG TABLET PO ×3 (08:15→22:16)
[2023-09-20] MEDS: Furosemide 40 MG TABLET PO ×2 (08:15→22:16)
[2023-09-20] MEDS: buPROPion HCl XL 150 MG TAB.ER.24H PO (08:15)
[2023-09-20] MEDS: Doxycycline Monohydrate 100 MG CAPSULE PO ×2 (08:15→22:16)
[2023-09-20] MEDS: hydrALAZINE HCl 50 MG TABLET PO ×3 (08:15→22:16)
[2023-09-20] MEDS: Lidocaine 4 % Patch ADH..PATCH 2 PATCH TRANSDERMA (08:16)
[2023-09-20] MEDS: polyethylene glycoL 3350 17 GM POWD.PACK PO (08:16)
[2023-09-20] MEDS: 0.9 % Sodium Chloride Flush 3 ML SYRINGE IVFLUSH ×3 (08:17→23:32)
--- NOTE | 2023-09-20 09:55 | P.PNIM_ITS ---
Subjective Subjective Date of Service: 09/20/23 Interval History: Seen and examined this morning Follow-up for placement, CHF, now with parainfluenza/pneumonia Review of Systems Review of Systems: Yes all other systems are reviewed and are negative Constitutional Constitutional: Denies chills and Denies fever(s) Cardiovascular Cardiovascular: Denies chest pain Respiratory Respiratory: Reports cough Gastrointestinal Gastrointestinal: Denies abdominal pain Physical Exam 2 Vital Signs: Vital Signs: Last Vital Signs Temp 97.0 F 09/20/23 08:00 Pulse 52 09/20/23 08:16 Resp 17 09/20/23 08:00 BP 133/86 09/20/23 08:15 Pulse Ox 96 09/20/23 08:00 O2 Del Method Room Air 09/20/23 08:00 O2 Flow Rate 2 09/18/23 14:35 BMI result Body Mass Index 20.5 alert and confused LSCTA abd soft Objective Data Active Medications Acetaminophen (Acetaminophen 325 Mg Tablet) 650 mg PO Q6H PRN PRN Reason: Pain, Mild (Pain Scale 1-3) Last Admin: 09/19/23 14:48 Dose: 650 mg Documented By: JANET Allopurinol (Allopurinol 100 Mg Tablet) 100 mg PO DAILY [facility] Last Admin: 09/20/23 08:14 Dose: 100 mg Documented By: ANEESH Amlodipine Besylate (Amlodipine Besylate 5 Mg Tablet) 5 mg PO DAILY [facility]; Protocol Last Admin: 09/20/23 08:14 Dose: 5 mg Documented By: ANEESH Apixaban (Apixaban 5 Mg Tablet) 5 mg PO BID [facility] Last Admin: 09/16/23 08:35 Dose: 5 mg Documented By: TJ Atorvastatin Calcium (Atorvastatin Calcium 40 Mg Tablet) 40 mg PO DAILY [facility] Last Admin: 09/20/23 08:14 Dose: 40 mg Documented By: ANEESH Bupropion HCl (Bupropion Hcl Xl 150 Mg Tab.Er.24h) 150 mg PO DAILY [facility] Last Admin: 09/20/23 08:15 Dose: 150 mg Documented By: ANEESH Carvedilol (Carvedilol 12.5 Mg Tablet) 12.5 mg PO BID [facility]; Protocol Last Admin: 09/20/23 08:16 Dose: Not Given Documented By: ANEESH Non-Admin Reason: Decreased Heart Rate Clonidine HCl (Clonidine Hcl 0.1 Mg Tablet) 0.1 mg PO TID [facility]; Protocol Last Admin: 09/20/23 08:15 Dose: 0.1 mg Documented By: ANEESH Clopidogrel Bisulfate (Clopidogrel Bisulfate 75 Mg Tablet) 75 mg PO DAILY [facility] Last Admin: 09/16/23 08:35 Dose: 75 mg Documented By: TJ Cyanocobalamin (Cyanocobalamin (Vitamin B-12) 1,000 Mcg Tablet) 1,000 mcg PO DAILY [facility] Last Admin: 09/20/23 08:15 Dose: 1,000 mcg Documented By: ANEESH Docusate Sodium (Docusate Sodium 100 Mg Capsule) 100 mg PO BID [facility] Last Admin: 09/20/23 08:14 Dose: 100 mg Documented By: ANEESH Doxycycline Monohydrate (Doxycycline Monohydrate 100 Mg Capsule) 100 mg PO BID [facility] Last Admin: 09/20/23 08:15 Dose: 100 mg Documented By: ANEESH Ferrous Sulfate (Ferrous Sulfate 324 Mg Tablet.Dr) 324 mg PO BIDWM [facility] Last Admin: 09/20/23 08:14 Dose: 324 mg Documented By: ANEESH Furosemide (Furosemide 40 Mg Tablet) 40 mg PO BID [facility]; Protocol Last Admin: 09/20/23 08:15 Dose: 40 mg Documented By: ANEESH Guaifenesin/Codeine Phosphate (Guaifen/Codeine Sf 200/20/10ml 10 Ml Liquid) 5 ml PO Q6H PRN PRN Reason: cough Last Admin: 09/19/23 23:20 Dose: 5 ml Documented By: BAL Hydralazine HCl (Hydralazine Hcl 50 Mg Tablet) 50 mg PO TID [facility]; Protocol Last Admin: 09/20/23 08:15 Dose: 50 mg Documented By: ANEESH Ceftriaxone Sodium 1 gm/ (Sodium Chloride) 50 mls @ 100 mls/hr IV Q24H [facility] Last Infusion: 09/20/23 08:50 Dose: Infused Documented By: ANEESH Isosorbide Mononitrate (Isosorbide Mononitrate 60 Mg Tab.Er.24h) 60 mg PO DAILY [facility]; Protocol Last Admin: 09/20/23 08:13 Dose: 60 mg Documented By: ANEESH Lidocaine (Lidocaine 4 % Patch Adh..Patch) 2 patch TRANSDERMA DAILY [facility]; Protocol Last Admin: 09/20/23 08:16 Dose: 2 patch Documented By: ANEESH Lorazepam (Lorazepam 0.5 Mg Tablet) 0.5 mg PO Q8H PRN PRN Reason: anxiety/restlessness Last Admin: 09/19/23 11:05 Dose: 0.5 mg Documented By: JANET Melatonin (Melatonin 3 Mg Tablet) 6 mg PO BEDTIME PRN PRN Reason: Insomnia Last Admin: 09/15/23 20:39 Dose: 6 mg Documented By: JANET Omeprazole (Omeprazole 20 Mg Capsule.Dr) 20 mg PO DAILY@0630 [facility] Last Admin: 09/20/23 05:25 Dose: 20 mg Documented By: BAL Ondansetron HCl (Ondansetron Odt 4 Mg Tab.Rapdis) 4 mg TRANSLINGU Q8H PRN PRN Reason: Nausea And Vomiting Last Admin: 09/06/23 23:09 Dose: 4 mg Documented By: EFRAIN Comments: Early admin ok per . Ondansetron HCl (Ondansetron Hcl 4 Mg/2 Ml Vial) 4 mg IVPUSH Q8H PRN PRN Reason: Nausea and Vomiting Last Admin: 09/18/23 12:38 Dose: 4 mg Documented By: TJ Oxycodone HCl (Oxycodone Hcl Immed Release 15 Mg Tablet) 15 mg PO Q4H PRN PRN Reason: Pain, Moderate(Pain Scale 4-6) Last Admin: 09/20/23 08:14 Dose: 15 mg Documented By: ANEESH Polyethylene Glycol (Polyethylene Glycol 3350 17 Gm Powd.Pack) 17 gm PO DAILY [facility] Last Admin: 09/20/23 08:16 Dose: 17 gm Documented By: ANEESH Potassium Chloride (Potassium Chloride Er 10 Meq Tablet.Er) 10 meq PO BEDTIME [facility] Last Admin: 09/19/23 20:30 Dose: 10 meq Documented By: BAL Potassium Chloride (Potassium Chloride Er 10 Meq Tablet.Er) 20 meq PO DAILY [facility] Last Admin: 09/20/23 08:14 Dose: 20 meq Documented By: ANEESH Quetiapine Fumarate (Quetiapine Fumarate 25 Mg Tablet) 12.5 mg PO DAILY@1700 [facility] Last Admin: 09/19/23 17:15 Dose: 12.5 mg Documented By: ANEESH Quetiapine Fumarate (Quetiapine Fumarate 25 Mg Tablet) 25 mg PO BID PRN PRN Reason: psychosis Sertraline HCl (Sertraline Hcl 100 Mg Tablet) 100 mg PO DAILY [facility] Last Admin: 09/20/23 08:14 Dose: 100 mg Documented By: ANEESH Sodium Chloride (0.9 % Sodium Chloride Flush 3 Ml Syringe) 3 ml IVFLUSH QSHIFT [facility] Last Admin: 09/20/23 08:17 Dose: 3 ml Documented By: ANEESH Spironolactone (Spironolactone 25 Mg Tablet) 25 mg PO DAILY [facility]; Protocol Last Admin: 09/20/23 08:15 Dose: 25 mg Documented By: ANEESH Sucralfate (Sucralfate 1 Gm Tablet) 1 gm PO QIDACHS [facility] Last Admin: 09/20/23 08:14 Dose: 1 gm Documented By: ANEESH Vitamin D (Cholecalciferol (Vitamin D3) 25 Mcg Tablet) 50 mcg PO DAILY [facility] Last Admin: 09/20/23 08:15 Dose: 50 mcg Documented By: ANEESH Labs 09/19/23 05:43 09/19/23 05:43 Microbiology Microbiology Results: Microbiology 09/17/23 08:09 Blood Culture - Preliminary Blood - Venous No growth after 48 hours. 09/17/23 08:14 Blood Culture - Preliminary Blood - Venous No growth after 48 hours. Assessment and Plan (1) Parainfluenza: Status: Acute (2) Hemoptysis: Status: Acute (3) Pneumonia: Status: Acute Plan 68-year-old man admitted with weakness, failure to thrive, [place]. Found in his home covered in feces and urine. Pneumonia, possible viral Chest CT showing diffuse ground-glass airspace opacity in the left upper lobe adjacent to the major fissure. 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[place] on CKD stage 3 Thought to be secondary to dehydration, but given HICKS with ivf initiation and held furosemide, suspect cardiorenal r/t volume overload s/p IVF s/p IV Furosemide 40mg renal function improving follow BMP HICKS, likely due to acute on chronic CHF- probably right HF in the setting of severe pulmonary hypertension vs diastolic dysfunction echo with preserved ejection fraction, [id number] tricuspid valve regurgitation, severe pulmonary hypertension, mildly decreased right ventricular systolic function s/p IV lasix 40mg resumed on home lasix and aldactone potassium supplementation resumed at home dose dyspnea improving, PNA likely contributing N/V/Abd pain KUB negative for obstructive but shows significant stool burden H/H stable Ondansetron prn bowel regimen given chronic narcotic use and iron supplementation. Failure to thrive Supportive care Physical therapy recommended long-term care Psychiatric consult - patient does not have capacity to make medical decisions, healthcare proxy has been invoked Plan for guardianship in process Seen by psych - plan to add low dose seroquel to prevent sundowning and prn for agitation Chronic pain will continue home oxycodone 15 mg Q4hrs PCP said that they were weaning him down and he was currently at 90mg a day lidocaine patch to knees as needed Normocytic anemia H/H stable,stool occult negative iron studies with low iron, normal TIBC, ferritin on low side continue iron supplementation. continue bowel regimen pancytopenia No baseline for comparison US with no evidence of liver disease hematology consult pending - further work up pending Hypertension Continue amlodipine, hydralazine, coreg, clonidine Atrial fibrillation, paroxysmal HR controlled On Eliquis and carvedilol Hyperlipidemia continue statin CAD continue BB, statin, imdur Mental health Continue zoloft, wellbutrin JOSE ALEJANDRO not on cpap DVT prophylaxis - Eliquis on hold for hemoptysis, compression boots Attending Dr. Urbina Full code Requires ongoing inpatient stay for process of guardianship with no safe disposition , now with suspected chf exacberation requiring iv diuresis and close monitoring of renal fx and lytes Quality Stroke Does the patient have a stroke diagnosis?: No VTE Prior VTE?: No VTE Risk Level:: Medical - moderate - high VTE Device Contraindication: Treatment Not Indicated VTE Drug Contraindication: N/A - Med Ordered
[2023-09-20 10:08] LABS: Prot Elec - Albumin 3.2 g/dL (3.8-4.8); Prot Elec - Alpha1 0.5 g/dL (0.2-0.3); Prot Elec - Alpha2 0.9 g/dL (0.5-0.9); Prot Elec - Beta 1 0.4 g/dL (0.4-0.6); Prot Elec - Beta 2 0.4 g/dL (0.2-0.5); Prot Elec - Gamma 0.9 g/dL (0.8-1.7); Prot Elec - Total Protein 6.2 g/dL (6.1-8.1)
[2023-09-20] MEDS: ondansetron HCL 4 MG/2 ML VIAL IVPUSH (11:55)
[2023-09-20] MEDS: guaiFEN/Codeine SF 200/20/10ML 10 ML LIQUID 5 ML PO ×2 (14:46→22:15)
[2023-09-20] MEDS: QUEtiapine Fumarate 25 MG TABLET 12.5 MG PO (16:07)
[2023-09-20 21:09] LABS: IgA 316 mg/dL (70-320); IgG 918 mg/dL (600-1540); IgM 54 mg/dL (50-300)
[2023-09-20] MEDS: carvediloL 12.5 MG TABLET PO (22:16)
[2023-09-20] MEDS: Melatonin 3 MG TABLET 6 MG PO (22:16)
[2023-09-20] MEDS: Potassium Chloride ER 10 MEQ TABLET.ER PO (22:17)
[2023-09-21] VITALS (13 sets, daily range): BP systolic 110–159; BP diastolic 63–95; PULSE 54–63; RESP 16–18; TEMP 36.1–36.6; O2SAT 93–94
[2023-09-21] MEDS: oxyCODONE HCl Immed Release 15 MG TABLET PO ×5 (04:51→22:31)
[2023-09-21] MEDS: Omeprazole 20 MG CAPSULE.DR PO (04:51)
--- NOTE | 2023-09-21 07:51 | HO.PM.IMPN ---
Subjective Subjective Date of Service: 09/21/23 Interval History: Seen and examined this morning Follow-up for placement, CHF, now with parainfluenza/pneumonia Review of Systems Review of Systems: Yes all other systems are reviewed and are negative Constitutional Constitutional: Denies chills and Denies fever(s) Cardiovascular Cardiovascular: Denies chest pain Respiratory Respiratory: Reports cough Gastrointestinal Gastrointestinal: Denies abdominal pain Physical Exam Vital Signs: Vital Signs: Last Vital Signs Temp 97 F 09/21/23 03:36 Pulse 60 09/21/23 03:36 Resp 16 09/21/23 03:36 BP 110/67 09/21/23 03:36 Pulse Ox 93 09/21/23 03:36 O2 Del Method Room Air 09/21/23 03:36 O2 Flow Rate 2 09/18/23 14:35 BMI result Body Mass Index 20.5 alert and confused Lungs normal expansion soft abd Objective Data Active Medications Acetaminophen (Acetaminophen 325 Mg Tablet) 650 mg PO Q6H PRN PRN Reason: Pain, Mild (Pain Scale 1-3) Last Admin: 09/19/23 14:48 Dose: 650 mg Documented By: JANET Allopurinol (Allopurinol 100 Mg Tablet) 100 mg PO DAILY [facility] Last Admin: 09/20/23 08:14 Dose: 100 mg Documented By: ANEESH Amlodipine Besylate (Amlodipine Besylate 5 Mg Tablet) 5 mg PO DAILY [facility]; Protocol Last Admin: 09/20/23 08:14 Dose: 5 mg Documented By: ANEESH Apixaban (Apixaban 5 Mg Tablet) 5 mg PO BID [facility] Last Admin: 09/16/23 08:35 Dose: 5 mg Documented By: TJ Atorvastatin Calcium (Atorvastatin Calcium 40 Mg Tablet) 40 mg PO DAILY [facility] Last Admin: 09/20/23 08:14 Dose: 40 mg Documented By: ANEESH Bupropion HCl (Bupropion Hcl Xl 150 Mg Tab.Er.24h) 150 mg PO DAILY [facility] Last Admin: 09/20/23 08:15 Dose: 150 mg Documented By: ANEESH Carvedilol (Carvedilol 12.5 Mg Tablet) 12.5 mg PO BID [facility]; Protocol Last Admin: 09/20/23 22:16 Dose: 12.5 mg Documented By: JANET Clonidine HCl (Clonidine Hcl 0.1 Mg Tablet) 0.1 mg PO TID [facility]; Protocol Last Admin: 09/20/23 22:16 Dose: 0.1 mg Documented By: JANET Clopidogrel Bisulfate (Clopidogrel Bisulfate 75 Mg Tablet) 75 mg PO DAILY [facility] Last Admin: 09/16/23 08:35 Dose: 75 mg Documented By: TJ Cyanocobalamin (Cyanocobalamin (Vitamin B-12) 1,000 Mcg Tablet) 1,000 mcg PO DAILY [facility] Last Admin: 09/20/23 08:15 Dose: 1,000 mcg Documented By: ANEESH Docusate Sodium (Docusate Sodium 100 Mg Capsule) 100 mg PO BID [facility] Last Admin: 09/20/23 22:16 Dose: 100 mg Documented By: JANET Doxycycline Monohydrate (Doxycycline Monohydrate 100 Mg Capsule) 100 mg PO BID [facility] Last Admin: 09/20/23 22:16 Dose: 100 mg Documented By: JANET Ferrous Sulfate (Ferrous Sulfate 324 Mg Tablet.) 324 mg PO BIDWM [facility] Last Admin: 09/20/23 16:07 Dose: 324 mg Documented By: ANEESH Furosemide (Furosemide 40 Mg Tablet) 40 mg PO BID [facility]; Protocol Last Admin: 09/20/23 22:16 Dose: 40 mg Documented By: JANET Guaifenesin/Codeine Phosphate (Guaifen/Codeine Sf 200/20/10ml 10 Ml Liquid) 5 ml PO Q6H PRN PRN Reason: cough Last Admin: 09/20/23 22:15 Dose: 5 ml Documented By: JANET Hydralazine HCl (Hydralazine Hcl 50 Mg Tablet) 50 mg PO TID [facility]; Protocol Last Admin: 09/20/23 22:16 Dose: 50 mg Documented By: JANET Ceftriaxone Sodium 1 gm/ (Sodium Chloride) 50 mls @ 100 mls/hr IV Q24H [facility] Last Infusion: 09/20/23 08:50 Dose: Infused Documented By: ANEESH Isosorbide Mononitrate (Isosorbide Mononitrate 60 Mg Tab.Er.24h) 60 mg PO DAILY [facility]; Protocol Last Admin: 09/20/23 08:13 Dose: 60 mg Documented By: ANEESH Lidocaine (Lidocaine 4 % Patch Adh..Patch) 2 patch TRANSDERMA DAILY [facility]; Protocol Last Admin: 09/20/23 08:16 Dose: 2 patch Documented By: ANEESH Lorazepam (Lorazepam 0.5 Mg Tablet) 0.5 mg PO Q8H PRN PRN Reason: anxiety/restlessness Last Admin: 09/19/23 11:05 Dose: 0.5 mg Documented By: JANET Melatonin (Melatonin 3 Mg Tablet) 6 mg PO BEDTIME PRN PRN Reason: Insomnia Last Admin: 09/20/23 22:16 Dose: 6 mg Documented By: JANET Omeprazole (Omeprazole 20 Mg Capsule.Dr) 20 mg PO DAILY@0630 [facility] Last Admin: 09/21/23 04:51 Dose: 20 mg Documented By: JAYDON Ondansetron HCl (Ondansetron Odt 4 Mg Tab.Rapdis) 4 mg TRANSLINGU Q8H PRN PRN Reason: Nausea And Vomiting Last Admin: 09/06/23 23:09 Dose: 4 mg Documented By: EFRAIN Comments: Early admin ok per . Ondansetron HCl (Ondansetron Hcl 4 Mg/2 Ml Vial) 4 mg IVPUSH Q8H PRN PRN Reason: Nausea and Vomiting Last Admin: 09/20/23 11:55 Dose: 4 mg Documented By: ANEESH Oxycodone HCl (Oxycodone Hcl Immed Release 15 Mg Tablet) 15 mg PO Q4H PRN PRN Reason: Pain, Moderate(Pain Scale 4-6) Last Admin: 09/21/23 04:51 Dose: 15 mg Documented By: JAYDON Polyethylene Glycol (Polyethylene Glycol 3350 17 Gm Powd.Pack) 17 gm PO DAILY [facility] Last Admin: 09/20/23 08:16 Dose: 17 gm Documented By: ANEESH Potassium Chloride (Potassium Chloride Er 10 Meq Tablet.Er) 10 meq PO BEDTIME [facility] Last Admin: 09/20/23 22:17 Dose: 10 meq Documented By: JANET Potassium Chloride (Potassium Chloride Er 10 Meq Tablet.Er) 20 meq PO DAILY [facility] Last Admin: 09/20/23 08:14 Dose: 20 meq Documented By: ANEESH Quetiapine Fumarate (Quetiapine Fumarate 25 Mg Tablet) 12.5 mg PO DAILY@1700 [facility] Last Admin: 09/20/23 16:07 Dose: 12.5 mg Documented By: ANEESH Quetiapine Fumarate (Quetiapine Fumarate 25 Mg Tablet) 25 mg PO BID PRN PRN Reason: psychosis Sertraline HCl (Sertraline Hcl 100 Mg Tablet) 100 mg PO DAILY [facility] Last Admin: 09/20/23 08:14 Dose: 100 mg Documented By: ANEESH Sodium Chloride (0.9 % Sodium Chloride Flush 3 Ml Syringe) 3 ml IVFLUSH QSHIFT [facility] Last Admin: 09/20/23 23:32 Dose: 3 ml Documented By: JAYDON Spironolactone (Spironolactone 25 Mg Tablet) 25 mg PO DAILY [facility]; Protocol Last Admin: 09/20/23 08:15 Dose: 25 mg Documented By: ANEESH Sucralfate (Sucralfate 1 Gm Tablet) 1 gm PO QIDACHS [facility] Last Admin: 09/20/23 22:16 Dose: 1 gm Documented By: JANET Vitamin D (Cholecalciferol (Vitamin D3) 25 Mcg Tablet) 50 mcg PO DAILY [facility] Last Admin: 09/20/23 08:15 Dose: 50 mcg Documented By: ANEESH Labs 09/19/23 05:43 09/21/23 09:15 Labs: Laboratory Results - last 24 hr 09/16/23 12:17 Total Protein (PEP) 6.2 Albumin (PEP) 3.2 L Hbtsx-8-Eqsisrytr 0.5 H Rjqge-2-Cicmcsbpj 0.9 Swve-6-Dcgjdagc 0.4 Aiam-7-Gwmbthmx 0.4 Gamma Globulins 0.9 PEP Interpretation SEE NOTE IgG Total 918 IgA Total 316 IgM 54 VLAD Interpretation SEE NOTE Assessment and Plan (1) Parainfluenza: Status: Acute (2) Hemoptysis: Status: Acute (3) Pneumonia: Status: Acute Plan 68-year-old man admitted with weakness, failure to thrive, [place]. Found in his home covered in feces and urine. Failure to thrive Supportive care Physical therapy recommended long-term care Psychiatric consult - patient does not have capacity to make medical decisions, healthcare proxy has been invoked Plan for guardianship in process, hearing September 28 Seen by psych - plan to add low dose seroquel to prevent sundowning and prn for agitation Pneumonia, possible viral Chest CT showing diffuse ground-glass airspace opacity in the left upper lobe adjacent to the major fissure. RPP + for parainfluenza no sepsis Procalcitonin low, probable viral, continue ceftriaxone and doxycycline blood cultures negative to date Hemoptysis no selvin blood but blood tinged phlegm hold eliquis, 7 days (09/23/23) improving , H/H stable [place] on CKD stage 3 Thought to be secondary to dehydration, but given HICKS with ivf initiation and held furosemide, suspect cardiorenal r/t volume overload s/p IVF s/p IV Furosemide 40mg renal function improving follow BMP HICKS, likely due to acute on chronic CHF- probably right HF in the setting of severe pulmonary hypertension vs diastolic dysfunction echo with preserved ejection fraction, [id number] tricuspid valve regurgitation, severe pulmonary hypertension, mildly decreased right ventricular systolic function s/p IV lasix 40mg resumed on home lasix and aldactone potassium supplementation resumed at home dose dyspnea improving, PNA likely contributing N/V/Abd pain KUB negative for obstructive but shows significant stool burden H/H stable Ondansetron prn bowel regimen given chronic narcotic use and iron supplementation. Chronic pain will continue home oxycodone 15 mg Q4hrs PCP said that they were weaning him down and he was currently at 90mg a day lidocaine patch to knees as needed Normocytic anemia H/H stable,stool occult negative iron studies with low iron, normal TIBC, ferritin on low side continue iron supplementation. continue bowel regimen pancytopenia No baseline for comparison US with no evidence of liver disease hematology consult pending - further work up pending Hypertension Continue amlodipine, hydralazine, coreg, clonidine Atrial fibrillation, paroxysmal HR controlled On Eliquis and carvedilol Hyperlipidemia continue statin CAD continue BB, statin, imdur Mental health Continue zoloft, wellbutrin JOSE ALEJANDRO not on cpap DVT prophylaxis - Eliquis on hold for hemoptysis, compression boots Attending Dr. Urbina Full code Requires ongoing inpatient stay for process of guardianship with no safe disposition , now with suspected chf exacberation requiring iv diuresis and close monitoring of renal fx and lytes Quality Stroke Does the patient have a stroke diagnosis?: No VTE Prior VTE?: No VTE Risk Level:: Medical - moderate - high VTE Device Contraindication: Treatment Not Indicated VTE Drug Contraindication: N/A - Med Ordered
[2023-09-21] MEDS: cefTRIAXone sodium 1 GM in 0.9 % Sodium Chloride 50 ML IV (08:57)
[2023-09-21] MEDS: guaiFEN/Codeine SF 200/20/10ML 10 ML LIQUID 5 ML PO ×2 (08:57→23:52)
[2023-09-21] MEDS: Isosorbide Mononitrate 60 MG TAB.ER.24H PO (08:59)
[2023-09-21] MEDS: Spironolactone 25 MG TABLET PO (08:59)
[2023-09-21] MEDS: Doxycycline Monohydrate 100 MG CAPSULE PO ×2 (08:59→20:33)
[2023-09-21] MEDS: allopurinoL 100 MG TABLET PO (08:59)
[2023-09-21] MEDS: Cholecalciferol (Vitamin D3) 25 MCG TABLET 50 MCG PO (09:00)
[2023-09-21] MEDS: Docusate Sodium 100 MG CAPSULE PO ×2 (09:00→20:32)
[2023-09-21] MEDS: Potassium Chloride ER 10 MEQ TABLET.ER 20 MEQ PO (09:00)
[2023-09-21] MEDS: Atorvastatin Calcium 40 MG TABLET PO (09:00)
[2023-09-21] MEDS: buPROPion HCl XL 150 MG TAB.ER.24H PO (09:00)
[2023-09-21] MEDS: Furosemide 40 MG TABLET PO ×2 (09:01→20:33)
[2023-09-21] MEDS: Sertraline HCL 100 MG TABLET PO (09:01)
[2023-09-21] MEDS: Cyanocobalamin (Vitamin B-12) 1,000 MCG TABLET 1000 MCG PO (09:01)
[2023-09-21] MEDS: Ferrous Sulfate 324 MG TABLET.DR PO ×2 (09:01→18:25)
[2023-09-21] MEDS: cloNIDine HCL 0.1 MG TABLET PO ×3 (09:01→20:33)
[2023-09-21] MEDS: amLODIPine Besylate 5 MG TABLET PO (09:02)
[2023-09-21] MEDS: Sucralfate 1 GM TABLET PO ×4 (09:02→20:31)
[2023-09-21] MEDS: hydrALAZINE HCl 50 MG TABLET PO ×3 (09:02→20:32)
[2023-09-21] MEDS: polyethylene glycoL 3350 17 GM POWD.PACK PO (09:03)
[2023-09-21] MEDS: Lidocaine 4 % Patch ADH..PATCH 2 PATCH TRANSDERMA (09:03)
[2023-09-21] MEDS: 0.9 % Sodium Chloride Flush 3 ML SYRINGE IVFLUSH ×3 (09:04→20:34)
[2023-09-21 10:22] LABS: Anion Gap 17 (12-20); Blood Urea Nitrogen 51 mg/dL (9-16); Calcium 9.7 mg/dL (8.4-10.2); Carbon Dioxide 28 mmol/L (22-29); Chloride 99 mmol/L (96-108); Creatinine Clr Calc Pharmacy 39.1; Estimated Glomerular Filt Rate 39; Glucose Random 117 mg/dL (60-115); Potassium 4.7 mmol/L (3.3-5.1); Sodium 139 mmol/L (135-145)
--- NOTE | 2023-09-21 11:38 | MHC.CLN ---
F/U DIET=CARDIAC-APPROPRIATE. ENSURE TID (1050 KCALS, 60 G PROTEIN) TO PROMOTE WOUND HEALING. DTI RIGHT HIP AND STAGE II RIGHT ANKLE. PO INTAKE USUALLY 50-100%. MONITOR PO INTAKE AND ENCOURAGE SUPPLEMENTS.
--- NOTE | 2023-09-21 15:04 | MHC.CM.PN ---
No discharge today. [facility] application is pending. Guardianship hearing scheduled 09/29/23. Patient requested assistance with understanding Guardianship documentation. CM Director came to patients room. She explained the document in detail. All of the patients questions were answered. He verbalized understanding. Emotional support and encouragement was provided. CM will continue to follow for placement.
[2023-09-21] MEDS: QUEtiapine Fumarate 25 MG TABLET 12.5 MG PO (18:25)
[2023-09-21] MEDS: LORazepam 0.5 MG TABLET PO (18:25)
[2023-09-21] MEDS: Melatonin 3 MG TABLET 6 MG PO (20:31)
[2023-09-21] MEDS: Potassium Chloride ER 10 MEQ TABLET.ER PO (20:32)
[2023-09-21] MEDS: QUEtiapine Fumarate 25 MG TABLET PO (20:33)
[2023-09-21] MEDS: carvediloL 12.5 MG TABLET PO (20:45)
[2023-09-22] VITALS (9 sets, daily range): BP systolic 105–140; BP diastolic 64–83; PULSE 57–67; RESP 16–18; TEMP 36.2–36.7; O2SAT 96–97
[2023-09-22] MEDS: oxyCODONE HCl Immed Release 15 MG TABLET PO ×5 (05:03→21:37)
[2023-09-22] MEDS: Omeprazole 20 MG CAPSULE.DR PO (05:51)
[2023-09-22 08:31] LABS: Hemoglobin 10.2 g/dl (14.0-18.0); Mean Corpuscular HGB Conc 32.9 g/dl (31.0-36.0); Mean Corpuscular Hemoglobin 28.5 pg (27.0-33.0); Mean Corpuscular Volume 86.6 fL (80.0-98.0); Mean Platelet Volume 10.4 fL (9.4-12.4); Platelet Count 176 X10*3/uL (160-400); Red Blood Count 3.58 X10*6/uL (4.60-5.80); White Blood Count 6.6 X10*3/uL (4.8-10.8)
[2023-09-22 08:41] LABS: Anion Gap 18 (12-20); Blood Urea Nitrogen 59 mg/dL (9-16); Calcium 9.6 mg/dL (8.4-10.2); Carbon Dioxide 27 mmol/L (22-29); Chloride 100 mmol/L (96-108); Creatinine Clr Calc Pharmacy 34.7; Estimated Glomerular Filt Rate 34; Glucose Random 91 mg/dL (60-115); Potassium 5.2 mmol/L (3.3-5.1); Sodium 140 mmol/L (135-145)
[2023-09-22] MEDS: cloNIDine HCL 0.1 MG TABLET PO ×3 (08:49→20:34)
[2023-09-22] MEDS: Docusate Sodium 100 MG CAPSULE PO ×2 (08:50→20:33)
[2023-09-22] MEDS: Doxycycline Monohydrate 100 MG CAPSULE PO ×2 (08:50→20:33)
[2023-09-22] MEDS: hydrALAZINE HCl 50 MG TABLET PO ×3 (08:50→20:34)
[2023-09-22] MEDS: Atorvastatin Calcium 40 MG TABLET PO (08:50)
[2023-09-22] MEDS: Spironolactone 25 MG TABLET PO (08:50)
[2023-09-22] MEDS: amLODIPine Besylate 5 MG TABLET PO (08:50)
[2023-09-22] MEDS: Furosemide 40 MG TABLET PO ×2 (08:50→20:34)
[2023-09-22] MEDS: Cyanocobalamin (Vitamin B-12) 1,000 MCG TABLET 1000 MCG PO (08:50)
[2023-09-22] MEDS: carvediloL 12.5 MG TABLET PO ×2 (08:51→20:33)
[2023-09-22] MEDS: Sucralfate 1 GM TABLET PO ×3 (08:51→20:34)
[2023-09-22] MEDS: Isosorbide Mononitrate 60 MG TAB.ER.24H PO (08:51)
[2023-09-22] MEDS: Sertraline HCL 100 MG TABLET PO (08:51)
[2023-09-22] MEDS: Potassium Chloride ER 10 MEQ TABLET.ER 20 MEQ PO (08:51)
[2023-09-22] MEDS: Lidocaine 4 % Patch ADH..PATCH 2 PATCH TRANSDERMA (08:52)
[2023-09-22] MEDS: Cholecalciferol (Vitamin D3) 25 MCG TABLET 50 MCG PO (08:52)
[2023-09-22] MEDS: Ferrous Sulfate 324 MG TABLET.DR PO ×2 (08:52→16:55)
[2023-09-22] MEDS: allopurinoL 100 MG TABLET PO (08:52)
[2023-09-22] MEDS: polyethylene glycoL 3350 17 GM POWD.PACK PO (08:52)
[2023-09-22] MEDS: buPROPion HCl XL 150 MG TAB.ER.24H PO (08:52)
[2023-09-22] MEDS: cefTRIAXone sodium 1 GM in 0.9 % Sodium Chloride 50 ML IV (08:58)
[2023-09-22] MEDS: 0.9 % Sodium Chloride Flush 3 ML SYRINGE IVFLUSH ×3 (08:59→20:35)
--- NOTE | 2023-09-22 12:23 | PC.NURSE ---
J Luis Oliveros made aware pt refusing his scheduled Carafate, pt educated on purpose of this medication, pt continues to refuses.
--- NOTE | 2023-09-22 14:56 | P.PNIM_ITS ---
Subjective Subjective Date of Service: 09/22/23 Interval History: seen and examined this morning follow up for placement, pneumonia no sob, no cough feels bored Review of Systems Review of Systems: Yes all other systems are reviewed and are negative Constitutional Constitutional: Denies chills and Denies fever(s) Cardiovascular Cardiovascular: Denies chest pain, Denies palpitations and Denies dyspnea Respiratory Respiratory: Denies cough and Denies dyspnea Gastrointestinal Gastrointestinal: Denies abdominal pain, Denies nausea and Denies vomiting Endocrine Endocrine: Denies palpitations Physical Exam 2 Vital Signs: Vital Signs: Last Vital Signs Temp 98.0 F 09/22/23 07:47 Pulse 67 09/22/23 08:51 Resp 17 09/22/23 07:47 BP 125/78 09/22/23 08:51 Pulse Ox 96 09/22/23 07:47 O2 Del Method Room Air 09/22/23 07:47 O2 Flow Rate 2 09/18/23 14:35 BMI result Body Mass Index 20.5 Const: General: cooperative, comfortable, no acute distress, alert and awake Nutritional Appearance: average body habitus Orientation/consciousness: o riented to person and oriented to place Resp: Effort & Inspection: normal respiratory effort, able to speak in complete sentences, no respiratory distress and no use of accessory muscles Cardio: Rate: regular rate GI: Inspection: No distended Palpation (GI): Soft to palpation and nontender Neuro: General: oriented to person, oriented to place, moves all extremities and CN's II-XI intact bilaterally Extrem: General: Yes no pedal edema Objective Data Active Medications Acetaminophen (Acetaminophen 325 Mg Tablet) 650 mg PO Q6H PRN PRN Reason: Pain, Mild (Pain Scale 1-3) Last Admin: 09/19/23 14:48 Dose: 650 mg Allopurinol (Allopurinol 100 Mg Tablet) 100 mg PO DAILY [facility] Last Admin: 09/22/23 08:52 Dose: 100 mg Documented By: DAGOBERTO Amlodipine Besylate (Amlodipine Besylate 5 Mg Tablet) 5 mg PO DAILY [facility]; Protocol Last Admin: 09/22/23 08:50 Dose: 5 mg Documented By: DAGOBERTO Apixaban (Apixaban 5 Mg Tablet) 5 mg PO BID [facility] Last Admin: 09/16/23 08:35 Dose: 5 mg Documented By: TJ Atorvastatin Calcium (Atorvastatin Calcium 40 Mg Tablet) 40 mg PO DAILY [facility] Last Admin: 09/22/23 08:50 Dose: 40 mg Documented By: DAGOBERTO Benzonatate (Benzonatate 100 Mg Capsule) 200 mg PO TID PRN PRN Reason: Cough Bupropion HCl (Bupropion Hcl Xl 150 Mg Tab.Er.24h) 150 mg PO DAILY [facility] Last Admin: 09/22/23 08:52 Dose: 150 mg Documented By: DAGOBERTO Carvedilol (Carvedilol 12.5 Mg Tablet) 12.5 mg PO BID [facility]; Protocol Last Admin: 09/22/23 08:51 Dose: 12.5 mg Documented By: DAGOBERTO Clonidine HCl (Clonidine Hcl 0.1 Mg Tablet) 0.1 mg PO TID [facility]; Protocol Last Admin: 09/22/23 08:49 Dose: 0.1 mg Documented By: DAGOBERTO Clopidogrel Bisulfate (Clopidogrel Bisulfate 75 Mg Tablet) 75 mg PO DAILY [facility] Last Admin: 09/16/23 08:35 Dose: 75 mg Documented By: TJ Cyanocobalamin (Cyanocobalamin (Vitamin B-12) 1,000 Mcg Tablet) 1,000 mcg PO DAILY [facility] Last Admin: 09/22/23 08:50 Dose: 1,000 mcg Documented By: DAGOBERTO Docusate Sodium (Docusate Sodium 100 Mg Capsule) 100 mg PO BID [facility] Last Admin: 09/22/23 08:50 Dose: 100 mg Documented By: DAGOBERTO Doxycycline Monohydrate (Doxycycline Monohydrate 100 Mg Capsule) 100 mg PO BID [facility] Stop: 09/22/23 23:59 Last Admin: 09/22/23 08:50 Dose: 100 mg Documented By: DAGOBERTO Ferrous Sulfate (Ferrous Sulfate 324 Mg Tablet.) 324 mg PO BIDWM [facility] Last Admin: 09/22/23 08:52 Dose: 324 mg Documented By: DAGOBERTO Furosemide (Furosemide 40 Mg Tablet) 40 mg PO BID [facility]; Protocol Last Admin: 09/22/23 08:50 Dose: 40 mg Documented By: DAGOBERTO Guaifenesin/Codeine Phosphate (Guaifen/Codeine Sf 200/20/10ml 10 Ml Liquid) 5 ml PO Q6H PRN PRN Reason: Cough Last Admin: 09/21/23 23:52 Dose: 5 ml Documented By: CHEMA Hydralazine HCl (Hydralazine Hcl 50 Mg Tablet) 50 mg PO TID [facility]; Protocol Last Admin: 09/22/23 08:50 Dose: 50 mg Documented By: DAGOBERTO Ceftriaxone Sodium 1 gm/ (Sodium Chloride) 50 mls @ 100 mls/hr IV Q24H JOHN Stop: 09/22/23 23:59 Last Infusion: 09/22/23 09:28 Dose: Infused Documented By: DAGOBERTO Isosorbide Mononitrate (Isosorbide Mononitrate 60 Mg Tab.Er.24h) 60 mg PO DAILY [facility]; Protocol Last Admin: 09/22/23 08:51 Dose: 60 mg Documented By: DAGOBERTO Lidocaine (Lidocaine 4 % Patch Adh..Patch) 2 patch TRANSDERMA DAILY [facility]; Protocol Last Admin: 09/22/23 08:52 Dose: 2 patch Documented By: DAGOBERTO Lorazepam (Lorazepam 0.5 Mg Tablet) 0.5 mg PO Q8H PRN PRN Reason: anxiety/restlessness Last Admin: 09/21/23 18:25 Dose: 0.5 mg Documented By: JANET Melatonin (Melatonin 3 Mg Tablet) 6 mg PO BEDTIME PRN PRN Reason: Insomnia Last Admin: 09/21/23 20:31 Dose: 6 mg Documented By: CHEMA Omeprazole (Omeprazole 20 Mg Capsule.Dr) 20 mg PO DAILY@0630 [facility] Last Admin: 09/22/23 05:51 Dose: 20 mg Documented By: CHEMA Ondansetron HCl (Ondansetron Odt 4 Mg Tab.Rapdis) 4 mg TRANSLINGU Q8H PRN PRN Reason: Nausea And Vomiting Last Admin: 09/06/23 23:09 Dose: 4 mg Documented By: EFRAIN Comments: Early admin ok per . Ondansetron HCl (Ondansetron Hcl 4 Mg/2 Ml Vial) 4 mg IVPUSH Q8H PRN PRN Reason: Nausea and Vomiting Last Admin: 09/20/23 11:55 Dose: 4 mg Documented By: ANEESH Oxycodone HCl (Oxycodone Hcl Immed Release 15 Mg Tablet) 15 mg PO Q4H PRN PRN Reason: Pain, Moderate(Pain Scale 4-6) Last Admin: 09/22/23 13:29 Dose: 15 mg Documented By: DAGOBERTO Polyethylene Glycol (Polyethylene Glycol 3350 17 Gm Powd.Pack) 17 gm PO DAILY [facility] Last Admin: 09/22/23 08:52 Dose: 17 gm Documented By: DAGOBERTO Potassium Chloride (Potassium Chloride Er 10 Meq Tablet.Er) 10 meq PO BEDTIME [facility] Last Admin: 09/21/23 20:32 Dose: 10 meq Documented By: CHEMA Potassium Chloride (Potassium Chloride Er 10 Meq Tablet.Er) 20 meq PO DAILY [facility] Last Admin: 09/22/23 08:51 Dose: 20 meq Documented By: DAGOBERTO Quetiapine Fumarate (Quetiapine Fumarate 25 Mg Tablet) 12.5 mg PO DAILY@1700 [facility] Last Admin: 09/21/23 18:25 Dose: 12.5 mg Documented By: JANET Quetiapine Fumarate (Quetiapine Fumarate 25 Mg Tablet) 25 mg PO BID PRN PRN Reason: psychosis Last Admin: 09/21/23 20:33 Dose: 25 mg Documented By: CHEMA Sertraline HCl (Sertraline Hcl 100 Mg Tablet) 100 mg PO DAILY [facility] Last Admin: 09/22/23 08:51 Dose: 100 mg Documented By: DAGOBERTO Sodium Chloride (0.9 % Sodium Chloride Flush 3 Ml Syringe) 3 ml IVFLUSH QSHIFT [facility] Last Admin: 09/22/23 08:59 Dose: 3 ml Documented By: DAGOBERTO Spironolactone (Spironolactone 25 Mg Tablet) 25 mg PO DAILY [facility]; Protocol Last Admin: 09/22/23 08:50 Dose: 25 mg Documented By: DAGOBERTO Sucralfate (Sucralfate 1 Gm Tablet) 1 gm PO QIDACHS [facility] Last Admin: 09/22/23 11:58 Dose: Not Given Documented By: DAGOBERTO Non-Admin Reason: Patient Refused Vitamin D (Cholecalciferol (Vitamin D3) 25 Mcg Tablet) 50 mcg PO DAILY [facility] Last Admin: 09/22/23 08:52 Dose: 50 mcg Documented By: DAGOBERTO Labs 09/22/23 08:02 09/22/23 08:02 Labs: Laboratory Results - last 24 hr 09/22/23 08:02 MCV 86.6 MCH 28.5 MCHC 32.9 RDW 17.0 H Plt Count 176 D MPV 10.4 Absolute Nucleated RBC 0.000 Nucleated RBC % (auto) 0.0 Anion Gap 18 Estim Creat Clear Calc 34.7 Estimated GFR 34 Random Glucose 91 Calcium 9.6 Microbiology Microbiology Results: Microbiology 09/17/23 08:14 Blood Culture - Final Blood - Venous No growth after 5 days. 09/17/23 08:09 Blood Culture - Final Blood - Venous No growth after 5 days. Assessment and Plan (1) Hyperkalemia: Status: Acute Plan 68-year-old man admitted with weakness, failure to thrive, [place]. Found in his home covered in feces and urine. Failure to thrive Supportive care Physical therapy recommended long-term care Psychiatric consult - patient does not have capacity to make medical decisions, healthcare proxy has been invoked Plan for guardianship in process, hearing September 28 Seen by psych - plan to add low dose seroquel to prevent sundowning and prn for agitation Pneumonia, possible viral Chest CT showing diffuse ground-glass airspace opacity in the left upper lobe adjacent to the major fissure. 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[place] on CKD stage 3 renal function up and down follow BMP hyperkalemia mild k 5.2 hold potassium replacement hold aldactone follow bmp in am HICKS, likely due to acute on chronic CHF- probably right HF in the setting of severe pulmonary hypertension vs diastolic dysfunction echo with preserved ejection fraction, [id number] tricuspid valve regurgitation, severe pulmonary hypertension, mildly decreased right ventricular systolic function s/p IV lasix 40mg resumed on home lasix and aldactone potassium supplementation resumed at home dose dyspnea improving, PNA likely contributing N/V/Abd pain KUB 09/13 negative for obstructive but with stool burden bowel regimen given chronic narcotic use and iron supplementation. Chronic pain will continue home oxycodone 15 mg Q4hrs PCP said that they were weaning him down and he was currently at 90mg a day lidocaine patch to knees as needed Normocytic anemia H/H stable,stool occult negative iron studies with low iron, normal TIBC, ferritin on low side continue iron supplementation. continue bowel regimen H/H stable pancytopenia No baseline for comparison US with no evidence of liver disease hematology consult pending - further work up pending improving ?due to recent viral illness Hypertension Continue amlodipine, hydralazine, coreg, clonidine Atrial fibrillation, paroxysmal HR controlled On Eliquis and carvedilol Hyperlipidemia continue statin CAD continue BB, statin, imdur Mental health Continue zoloft, wellbutrin JOSE ALEJANDRO not on cpap DVT prophylaxis - Eliquis on hold for hemoptysis, compression boots Attending Dr. Urbina Full code Requires ongoing inpatient stay for process of guardianship with no safe disposition , now with suspected chf exacberation requiring iv diuresis and close monitoring of renal fx and lytes Quality Stroke Does the patient have a stroke diagnosis?: No VTE Prior VTE?: No VTE Risk Level:: Medical - moderate - high VTE Device Contraindication: Treatment Not Indicated VTE Drug Contraindication: N/A - Med Ordered
[2023-09-22] MEDS: QUEtiapine Fumarate 25 MG TABLET 12.5 MG PO (16:55)
--- NOTE | 2023-09-22 16:57 | PC.NURSE ---
Mr. Ballesteros refusing to allow this RN turn and reposition pt despite education provided regarding skin breakdown. Pt also refusing skin assessment and changing of foam dressings.
[2023-09-22] MEDS: LORazepam 0.5 MG TABLET PO (20:34)
[2023-09-22] MEDS: Melatonin 3 MG TABLET 6 MG PO (21:36)
[2023-09-22] MEDS: QUEtiapine Fumarate 25 MG TABLET PO (21:37)
[2023-09-23] VITALS (8 sets, daily range): BP systolic 114–149; BP diastolic 68–79; PULSE 52–62; RESP 16–18; TEMP 36.1–37; O2SAT 94–97
[2023-09-23] MEDS: Omeprazole 20 MG CAPSULE.DR PO (06:12)
[2023-09-23] MEDS: oxyCODONE HCl Immed Release 15 MG TABLET PO ×3 (06:12→19:51)
[2023-09-23 06:58] LABS: Anion Gap 20 (12-20); Blood Urea Nitrogen 62 mg/dL (9-16); Calcium 9.8 mg/dL (8.4-10.2); Carbon Dioxide 24 mmol/L (22-29); Chloride 101 mmol/L (96-108); Creatinine Clr Calc Pharmacy 31.2; Estimated Glomerular Filt Rate 30; Glucose Random 88 mg/dL (60-115); Potassium 4.7 mmol/L (3.3-5.1); Sodium 140 mmol/L (135-145)
[2023-09-23] MEDS: Sertraline HCL 100 MG TABLET PO (08:12)
[2023-09-23] MEDS: Cholecalciferol (Vitamin D3) 25 MCG TABLET 50 MCG PO (08:12)
[2023-09-23] MEDS: allopurinoL 100 MG TABLET PO (08:12)
[2023-09-23] MEDS: Sucralfate 1 GM TABLET PO ×4 (08:12→21:09)
[2023-09-23] MEDS: polyethylene glycoL 3350 17 GM POWD.PACK PO (08:12)
[2023-09-23] MEDS: Cyanocobalamin (Vitamin B-12) 1,000 MCG TABLET 1000 MCG PO (08:12)
[2023-09-23] MEDS: Atorvastatin Calcium 40 MG TABLET PO (08:12)
[2023-09-23] MEDS: Ferrous Sulfate 324 MG TABLET.DR PO ×2 (08:12→17:15)
[2023-09-23] MEDS: Docusate Sodium 100 MG CAPSULE PO ×2 (08:12→21:10)
[2023-09-23] MEDS: Lidocaine 4 % Patch ADH..PATCH 2 PATCH TRANSDERMA (08:12)
[2023-09-23] MEDS: buPROPion HCl XL 150 MG TAB.ER.24H PO (08:12)
[2023-09-23] MEDS: 0.9 % Sodium Chloride Flush 3 ML SYRINGE IVFLUSH ×3 (08:15→21:10)
--- NOTE | 2023-09-23 09:33 | MHC.CLN ---
F/U DIET=CARDIAC-APPROPRIATE. ENSURE TID (1050 KCALS, 60 G PROTEIN) TO PROMOTE WOUND HEALING. PO INTAKE USUALLY 50-100%. LABS REVIEWED. MONITOR PO INTAKE AND ENCOURAGE SUPPLEMENTS. RD TO FOLLOW UP WEEKLY,
--- NOTE | 2023-09-23 12:11 | MHC.CM.PN ---
Discharge is pending Guardianship hearing is scheduled 09/29/23, and [employer] application; which has been faxed. DP [facility] via BLS. Patient would like to have his home cleaned so that he can return in the future.
--- NOTE | 2023-09-23 12:25 | HO.PM.IMPN ---
Subjective Subjective Date of Service: 09/23/23 Interval History: Seen and examined this morning Follow-up for placement No overnight events No shortness of breath, no cough Review of Systems Review of Systems: Yes all other systems are reviewed and are negative Physical Exam Vital Signs: Vital Signs: Last Vital Signs Temp 97.1 F 09/23/23 07:42 Pulse 55 09/23/23 07:42 Resp 16 09/23/23 07:42 BP 114/68 09/23/23 07:42 Pulse Ox 97 09/23/23 07:42 O2 Del Method Room Air 09/23/23 07:42 O2 Flow Rate 2 09/18/23 14:35 BMI result Body Mass Index 20.5 Const: General: cooperative, comfortable, no acute distress, alert and awake Nutritional Appearance: average body habitus Orientation/consciousness: oriented to person, oriented to place and patient oriented x3 Resp: Other: no wheeze, rales Effort & Inspection: normal respiratory effort, able to speak in complete sentences, no respiratory distress and no use of accessory muscles Cardio: Rate: regular rate GI: Inspection: No distended Palpation (GI): Soft to palpation and nontender Neuro: General: oriented to person, oriented to place, patient oriented x3, moves all extremities and CN's II-XI intact bilaterally Extrem: General: Yes no pedal edema Objective Data Active Medications Acetaminophen (Acetaminophen 325 Mg Tablet) 650 mg PO Q6H PRN PRN Reason: Pain, Mild (Pain Scale 1-3) Last Admin: 09/19/23 14:48 Dose: 650 mg Allopurinol (Allopurinol 100 Mg Tablet) 100 mg PO DAILY [facility] Last Admin: 09/23/23 08:12 Dose: 100 mg Documented By: DAGOBERTO Amlodipine Besylate (Amlodipine Besylate 5 Mg Tablet) 5 mg PO DAILY [facility]; Protocol Last Admin: 09/23/23 08:23 Dose: Not Given Documented By: DAGOBERTO Non-Admin Reason: held for low BP and HR per PA Apixaban (Apixaban 5 Mg Tablet) 5 mg PO BID [facility] Last Admin: 09/16/23 08:35 Dose: 5 mg Documented By: TJ Atorvastatin Calcium (Atorvastatin Calcium 40 Mg Tablet) 40 mg PO DAILY [facility] Last Admin: 09/23/23 08:12 Dose: 40 mg Documented By: DAGOBERTO Benzonatate (Benzonatate 100 Mg Capsule) 200 mg PO TID PRN PRN Reason: Cough Bupropion HCl (Bupropion Hcl Xl 150 Mg Tab.Er.24h) 150 mg PO DAILY [facility] Last Admin: 09/23/23 08:12 Dose: 150 mg Documented By: DAGOBERTO Carvedilol (Carvedilol 12.5 Mg Tablet) 12.5 mg PO BID [facility]; Protocol Last Admin: 09/23/23 08:23 Dose: Not Given Documented By: DAGOBERTO Non-Admin Reason: held for low BP and HR per PA Clonidine HCl (Clonidine Hcl 0.1 Mg Tablet) 0.1 mg PO TID [facility]; Protocol Last Admin: 09/23/23 08:24 Dose: Not Given Documented By: DAGOBERTO Non-Robert Reason: held for low BP and HR per PA Clopidogrel Bisulfate (Clopidogrel Bisulfate 75 Mg Tablet) 75 mg PO DAILY [facility] Last Admin: 09/16/23 08:35 Dose: 75 mg Documented By: TJ Cyanocobalamin (Cyanocobalamin (Vitamin B-12) 1,000 Mcg Tablet) 1,000 mcg PO DAILY [facility] Last Admin: 09/23/23 08:12 Dose: 1,000 mcg Documented By: DAGOBERTO Docusate Sodium (Docusate Sodium 100 Mg Capsule) 100 mg PO BID [facility] Last Admin: 09/23/23 08:12 Dose: 100 mg Documented By: DAGOBERTO Ferrous Sulfate (Ferrous Sulfate 324 Mg Tablet.Dr) 324 mg PO BIDWM [facility] Last Admin: 09/23/23 08:12 Dose: 324 mg Documented By: DAGOBERTO Furosemide (Furosemide 40 Mg Tablet) 40 mg PO BID [facility]; Protocol Last Admin: 09/22/23 20:34 Dose: 40 mg Documented By: CHEMA Guaifenesin/Codeine Phosphate (Guaifen/Codeine Sf 200/20/10ml 10 Ml Liquid) 5 ml PO Q6H PRN PRN Reason: Cough Last Admin: 09/21/23 23:52 Dose: 5 ml Documented By: CHEMA Hydralazine HCl (Hydralazine Hcl 50 Mg Tablet) 50 mg PO TID [facility]; Protocol Last Admin: 09/23/23 08:24 Dose: Not Given Documented By: HO.JERUSIA Non-Admin Reason: held for low BP and HR per PA Isosorbide Mononitrate (Isosorbide Mononitrate 60 Mg Tab.Er.24h) 60 mg PO DAILY [facility]; Protocol Last Admin: 09/23/23 08:24 Dose: Not Given Documented By: DAGOBERTO Non-Robert Reason: held for low BP and HR per PA Lidocaine (Lidocaine 4 % Patch Adh..Patch) 2 patch TRANSDERMA DAILY [facility]; Protocol Last Admin: 09/23/23 08:12 Dose: 2 patch Documented By: DAGOBERTO Lorazepam (Lorazepam 0.5 Mg Tablet) 0.5 mg PO Q8H PRN PRN Reason: anxiety/restlessness Last Admin: 09/22/23 20:34 Dose: 0.5 mg Documented By: CHEMA Melatonin (Melatonin 3 Mg Tablet) 6 mg PO BEDTIME PRN PRN Reason: Insomnia Last Admin: 09/22/23 21:36 Dose: 6 mg Documented By: CHEMA Omeprazole (Omeprazole 20 Mg Capsule.Dr) 20 mg PO DAILY@0630 [facility] Last Admin: 09/23/23 06:12 Dose: 20 mg Documented By: CHEMA Ondansetron HCl (Ondansetron Odt 4 Mg Tab.Rapdis) 4 mg TRANSLINGU Q8H PRN PRN Reason: Nausea And Vomiting Last Admin: 09/06/23 23:09 Dose: 4 mg Documented By: EFRAIN Comments: Early admin ok per . Ondansetron HCl (Ondansetron Hcl 4 Mg/2 Ml Vial) 4 mg IVPUSH Q8H PRN PRN Reason: Nausea and Vomiting Last Admin: 09/20/23 11:55 Dose: 4 mg Documented By: ANEESH Oxycodone HCl (Oxycodone Hcl Immed Release 15 Mg Tablet) 15 mg PO Q4H PRN PRN Reason: Pain, Moderate(Pain Scale 4-6) Last Admin: 09/23/23 06:12 Dose: 15 mg Documented By: CHEMA Polyethylene Glycol (Polyethylene Glycol 3350 17 Gm Powd.Pack) 17 gm PO DAILY [facility] Last Admin: 09/23/23 08:12 Dose: 17 gm Documented By: DAGOBERTO Quetiapine Fumarate (Quetiapine Fumarate 25 Mg Tablet) 12.5 mg PO DAILY@1700 [facility] Last Admin: 09/22/23 16:55 Dose: 12.5 mg Documented By: DAGOBERTO Quetiapine Fumarate (Quetiapine Fumarate 25 Mg Tablet) 25 mg PO BID PRN PRN Reason: psychosis Last Admin: 09/22/23 21:37 Dose: 25 mg Documented By: CHEMA Sertraline HCl (Sertraline Hcl 100 Mg Tablet) 100 mg PO DAILY [facility] Last Admin: 09/23/23 08:12 Dose: 100 mg Documented By: DAGOBERTO Sodium Chloride (0.9 % Sodium Chloride Flush 3 Ml Syringe) 3 ml IVFLUSH QSHIFT [facility] Last Admin: 09/23/23 08:15 Dose: 3 ml Documented By: DAGOBERTO Spironolactone (Spironolactone 25 Mg Tablet) 25 mg PO DAILY [facility]; Protocol Last Admin: 09/22/23 08:50 Dose: 25 mg Documented By: DAGOBERTO Sucralfate (Sucralfate 1 Gm Tablet) 1 gm PO QIDACHS [facility] Last Admin: 09/23/23 11:46 Dose: 1 gm Documented By: DAGOBERTO Vitamin D (Cholecalciferol (Vitamin D3) 25 Mcg Tablet) 50 mcg PO DAILY [facility] Last Admin: 09/23/23 08:12 Dose: 50 mcg Documented By: DAGOBERTO Labs 09/22/23 08:02 09/23/23 05:49 Labs: Laboratory Results - last 24 hr 09/23/23 05:49 Hold Purple Top SEE NOTE Anion Gap 20 Estim Creat Clear Calc 31.2 Estimated GFR 30 Random Glucose 88 Calcium 9.8 Microbiology Microbiology Results: Microbiology 09/17/23 08:14 Blood Culture - Final Blood - Venous No growth after 5 days. 09/17/23 08:09 Blood Culture - Final Blood - Venous No growth after 5 days. Assessment and Plan (1) Cognitive impairment: Status: Acute Plan 68-year-old man admitted with weakness, failure to thrive, [place]. Found in his home covered in feces and urine. Failure to thrive Supportive care Physical therapy recommended long-term care Psychiatric consult - patient does not have capacity to make medical decisions, healthcare proxy has been invoked Plan for guardianship in process, hearing September 28 Seen by psych - plan to add low dose seroquel to prevent sundowning and prn for agitation Pneumonia, possible viral Chest CT showing diffuse ground-glass airspace opacity in the left upper lobe adjacent to the major fissure. RPP + for parainfluenza no sepsis Procalcitonin low, probable viral Completed course of empiric ceftriaxone and doxycycline blood cultures negative to date Hemoptysis Resolved, Eliquis held for 7 days Eliquis resumed 09/22 [place] on CKD stage 3 renal function up and down trending up to 2.17 hold lasix today - ? resume lasix at lower dose in am in renal function remained stable or trends down. d/c aldactone follow BMP If renal function continues to trend up would consider Nephrology consultation hyperkalemia Resolved d/c potassium replacement d/c aldactone N/V/Abd pain KUB 09/13 negative for obstructive but with stool burden bowel regimen given chronic narcotic use and iron supplementation. Chronic pain will continue home oxycodone 15 mg Q4hrs PCP said that they were weaning him down and he was currently at 90mg a day lidocaine patch to knees as needed Normocytic anemia H/H stable,stool occult negative iron studies with low iron, normal TIBC, ferritin on low side continue iron supplementation. continue bowel regimen H/H stable pancytopenia No baseline for comparison US with no evidence of liver disease hematology consult pending - further work up pending improving ?due to recent viral illness Hypertension Continue amlodipine, hydralazine, coreg, clonidine BP has been soft - will reduce clonidine to bid dosing consider further reduction on meds based on BP Atrial fibrillation, paroxysmal HR controlled On Eliquis and carvedilol Hyperlipidemia continue statin CAD continue BB, statin, imdur Mental health Continue zoloft, wellbutrin JOSE ALEJANDRO not on cpap DVT prophylaxis - Eliquis resumed Attending Dr. Urbina Full code Requires ongoing inpatient stay for process of guardianship with no safe disposition , now with suspected chf exacberation requiring iv diuresis and close monitoring of renal fx and lytes Quality Stroke Does the patient have a stroke diagnosis?: No VTE Prior VTE?: No VTE Risk Level:: Medical - moderate - high VTE Device Contraindication: Treatment Not Indicated VTE Drug Contraindication: N/A - Med Ordered
[2023-09-23] MEDS: hydrALAZINE HCl 50 MG TABLET PO ×2 (16:00→21:10)
--- NOTE | 2023-09-23 16:10 | PM.HEMONCPN ---
Medical Summary - Medical Summary Date of Service: 09/23/23 Chief complaint: None Primary Care Provider: Hannah Garcia NP Interval History Interval history: Iban Ballesteros is a 68 year old male who presented to ED with complaints of shortness of breath and admitted for acute kidney injury, anemia and failure to thrive. He was noted to be mildly pancytopenic with leukopenia and thrombocytopenia in addition to iron deficiency anemia. He says he spit up blood a few times. No history of alcohol use or smoking. He says he is achy all over, all his joints hurt him. He denies fever, chills or night sweats. He says he has never been diagnosed with any cancer. He has been living at home with his grandson. He says he was never diagnosed with low blood counts before. He is doing better overall. Review of Systems - Neurologic Denies dizziness, Denies loss of vision, Denies numbness, Denies tingling PMFSH Medical History: Medical History (Last Reviewed 09/13/23 @ 10:28 by JHON Johnson) Aortic aneurysm Atrial fibrillation Chronic kidney disease, stage 3b Chronic pain syndrome CVA (cerebral vascular accident) Degenerative joint disease (DJD) of lumbar spine Depression Gout Hyperlipidemia Hypertension, renal disease Neuropathy of upper extremity OA (osteoarthritis) of knee JOSE ALEJANDRO (obstructive sleep apnea) Pain in joint involving shoulder region Shoulder pain Surgical History: Surgical History (Last Reviewed 09/13/23 @ 10:28 by JHON Johnson) Hx of CABG Social History: Social History Living Situation History: Household Members: Family Household Members Other:: grandson Housing: House Do you presently have visiting nurse or other home services: No Alcohol History Details: 1. How often do you have a drink containing alcohol?: a. Never AUDIT-C Alcohol total score: 0 Currently Displaying Signs/Symptoms of Alcohol Withdrawal: No Tobacco History: Patient Tobacco Use Status: Never used Tobacco Smoked in Last 30 Days: No Substance Use History: Use of substances other than those prescribed or required for medical reasons: Yes Substance Use Type: Marijuana Substance Use Frequency: Occasionally Currently Displaying Signs/Symptoms of Drug Intoxication Withdrawal: No Domestic Abuse History: Have you been hit, kicked, punched, or otherwise hurt by someone within the past year? If so, by whom?: No Do you feel safe in your current relationship?: No Current Relationship Is there a partner from a previous relationship who is making you feel unsafe now?: No Are you made to feel afraid or neglected: No Advance Directives: Advance Directives: Yes Advance Directives Information Provided: No Advance Directives on File: Yes Advance Directives Date on File: 09/06/23 Homicidal Assessment: Do you have a plan to hurt others: No Plan Nutrition Assessment: Recently lost weight without trying: Unsure Occupation Assessmet: service: No Home Medications and Allergies Current Medications: Current Medications Acetaminophen (Acetaminophen 325 Mg Tablet) 650 mg PO Q6H PRN PRN Reason: Pain, Mild (Pain Scale 1-3) Last Admin: 09/19/23 14:48 Dose: 650 mg Allopurinol (Allopurinol 100 Mg Tablet) 100 mg PO DAILY [facility] Last Admin: 09/23/23 08:12 Dose: 100 mg Amlodipine Besylate (Amlodipine Besylate 5 Mg Tablet) 5 mg PO DAILY [facility]; Protocol Last Admin: 09/23/23 08:23 Dose: Not Given Apixaban (Apixaban 5 Mg Tablet) 5 mg PO BID [facility] Last Admin: 09/16/23 08:35 Dose: 5 mg Atorvastatin Calcium (Atorvastatin Calcium 40 Mg Tablet) 40 mg PO DAILY [facility] Last Admin: 09/23/23 08:12 Dose: 40 mg Benzonatate (Benzonatate 100 Mg Capsule) 200 mg PO TID PRN PRN Reason: Cough Bupropion HCl (Bupropion Hcl Xl 150 Mg Tab.Er.24h) 150 mg PO DAILY [facility] Last Admin: 09/23/23 08:12 Dose: 150 mg Carvedilol (Carvedilol 12.5 Mg Tablet) 12.5 mg PO BID [facility]; Protocol Last Admin: 09/23/23 08:23 Dose: Not Given Clonidine HCl (Clonidine Hcl 0.1 Mg Tablet) 0.1 mg PO BID [facility]; Protocol Clopidogrel Bisulfate (Clopidogrel Bisulfate 75 Mg Tablet) 75 mg PO DAILY [facility] Last Admin: 09/16/23 08:35 Dose: 75 mg Cyanocobalamin (Cyanocobalamin (Vitamin B-12) 1,000 Mcg Tablet) 1,000 mcg PO DAILY [facility] Last Admin: 09/23/23 08:12 Dose: 1,000 mcg Docusate Sodium (Docusate Sodium 100 Mg Capsule) 100 mg PO BID [facility] Last Admin: 09/23/23 08:12 Dose: 100 mg Ferrous Sulfate (Ferrous Sulfate 324 Mg Tablet.) 324 mg PO BIDWM [facility] Last Admin: 09/23/23 08:12 Dose: 324 mg Furosemide (Furosemide 40 Mg Tablet) 40 mg PO BID [facility]; Protocol Last Admin: 09/22/23 20:34 Dose: 40 mg Guaifenesin/Codeine Phosphate (Guaifen/Codeine Sf 200/20/10ml 10 Ml Liquid) 5 ml PO Q6H PRN PRN Reason: Cough Last Admin: 09/21/23 23:52 Dose: 5 ml Hydralazine HCl (Hydralazine Hcl 50 Mg Tablet) 50 mg PO TID [facility]; Protocol Last Admin: 09/23/23 16:00 Dose: 50 mg Isosorbide Mononitrate (Isosorbide Mononitrate 60 Mg Tab.Er.24h) 60 mg PO DAILY [facility]; Protocol Last Admin: 09/23/23 08:24 Dose: Not Given Lidocaine (Lidocaine 4 % Patch Adh..Patch) 2 patch TRANSDERMA DAILY [facility]; Protocol Last Admin: 09/23/23 08:12 Dose: 2 patch Lorazepam (Lorazepam 0.5 Mg Tablet) 0.5 mg PO Q8H PRN PRN Reason: anxiety/restlessness Last Admin: 09/22/23 20:34 Dose: 0.5 mg Melatonin (Melatonin 3 Mg Tablet) 6 mg PO BEDTIME PRN PRN Reason: Insomnia Last Admin: 09/22/23 21:36 Dose: 6 mg Omeprazole (Omeprazole 20 Mg Capsule.) 20 mg PO DAILY@0630 [facility] Last Admin: 09/23/23 06:12 Dose: 20 mg Ondansetron HCl (Ondansetron Odt 4 Mg Tab.Rapdis) 4 mg TRANSLINGU Q8H PRN PRN Reason: Nausea And Vomiting Last Admin: 09/06/23 23:09 Dose: 4 mg Ondansetron HCl (Ondansetron Hcl 4 Mg/2 Ml Vial) 4 mg IVPUSH Q8H PRN PRN Reason: Nausea and Vomiting Last Admin: 09/20/23 11:55 Dose: 4 mg Oxycodone HCl (Oxycodone Hcl Immed Release 15 Mg Tablet) 15 mg PO Q4H PRN PRN Reason: Pain, Moderate(Pain Scale 4-6) Last Admin: 09/23/23 13:41 Dose: 15 mg Polyethylene Glycol (Polyethylene Glycol 3350 17 Gm Powd.Pack) 17 gm PO DAILY [facility] Last Admin: 09/23/23 08:12 Dose: 17 gm Quetiapine Fumarate (Quetiapine Fumarate 25 Mg Tablet) 12.5 mg PO DAILY@1700 [facility] Last Admin: 09/22/23 16:55 Dose: 12.5 mg Quetiapine Fumarate (Quetiapine Fumarate 25 Mg Tablet) 25 mg PO BID PRN PRN Reason: psychosis Last Admin: 09/22/23 21:37 Dose: 25 mg Sertraline HCl (Sertraline Hcl 100 Mg Tablet) 100 mg PO DAILY [facility] Last Admin: 09/23/23 08:12 Dose: 100 mg Sodium Chloride (0.9 % Sodium Chloride Flush 3 Ml Syringe) 3 ml IVFLUSH QSHIFT [facility] Last Admin: 09/23/23 16:00 Dose: 3 ml Sucralfate (Sucralfate 1 Gm Tablet) 1 gm PO QIDACHS [facility] Last Admin: 09/23/23 16:00 Dose: 1 gm Vitamin D (Cholecalciferol (Vitamin D3) 25 Mcg Tablet) 50 mcg PO DAILY [facility] Last Admin: 09/23/23 08:12 Dose: 50 mcg Home Medications ?Medication ?Instructions ?Recorded ?Confirmed ?Type allopurinol 100 mg tablet 100 mg PO DAILY 09/06/23 09/06/23 History amlodipine 5 mg tablet 5 mg PO DAILY 09/06/23 09/06/23 History apixaban 5 mg tablet (Eliquis) 5 mg PO BID 09/06/23 09/06/23 History atorvastatin 40 mg tablet 40 mg PO DAILY 09/06/23 09/06/23 History bupropion HCl 150 mg 24 hr tablet, 150 mg PO DAILY 09/06/23 09/06/23 History extended release carvedilol 12.5 mg tablet 12.5 mg PO BID 09/06/23 09/06/23 History cholecalciferol (vitamin D3) 1,250 1,250 mcg PO QWEEK 09/06/23 09/06/23 History mcg (50,000 unit) capsule clonidine HCl 0.1 mg tablet 0.1 mg PO TID 09/06/23 09/06/23 History clopidogrel 75 mg tablet 75 mg PO DAILY 09/06/23 09/06/23 History cyanocobalamin (vitamin B-12) 1,000 mcg PO DAILY 09/06/23 09/06/23 History 1,000 mcg tablet furosemide 40 mg tablet 40 mg PO BID 09/06/23 09/06/23 History hydralazine 50 mg tablet 50 mg PO TID 09/06/23 09/06/23 History isosorbide mononitrate 60 mg 60 mg PO QAM 09/06/23 09/06/23 History tablet,extended release 24 hr ondansetron HCl 4 mg tablet 4 mg PO Q8H PRN Nausea And Vomiting 09/06/23 09/06/23 History oxycodone 15 mg tablet 15 mg PO Q4H PRN pain 09/06/23 09/06/23 History pantoprazole 40 mg tablet,delayed 40 mg PO DAILY 09/06/23 09/06/23 History release potassium chloride 10 mEq 10 meq PO BEDTIME 09/06/23 09/06/23 History tablet,extended release potassium chloride 10 mEq 20 meq PO DAILY 09/06/23 09/06/23 History tablet,extended release sertraline 100 mg tablet 100 mg PO DAILY 09/06/23 09/06/23 History spironolactone 25 mg tablet 25 mg PO DAILY 09/06/23 09/06/23 History sucralfate 1 gram tablet 1 g PO QIDACHS 09/06/23 09/06/23 History Allergies Allergy/AdvReac Type Severity Reaction Status Date / Time No Known Allergies Allergy Verified 09/06/23 10:39 Exam Vital signs: Vital Signs Temp 98.1 F 09/23/23 15:38 Pulse 62 09/23/23 15:38 Resp 18 09/23/23 15:38 BP 149/79 H 09/23/23 16:00 Pulse Ox 94 09/23/23 15:38 O2 Del Method Room Air 09/23/23 15:38 O2 Flow Rate 2 09/18/23 14:35 Intake & Output 09/22/23 09/23/23 09/23/23 18:59 06:59 18:59 Intake Total 530 / 1130 600 / 1130 700 / 700 Output Total 425 / 1900 1475 / 1900 725 / 725 Balance 105 / -770 -875 / -770 -25 / -25 Urine Output (Average ml/kg/hr) 0.52 1.79 0.88 Intake: Intake, Oral Amount 480 / 1080 600 / 1080 700 / 700 Intake, IV Amount 50 / 50 cefTRIAXone sodium 1 gm In 0.9 50 / 50 % Sodium Chloride 50 ml @ 100 mls/hr IV Q24H [facility] Rx#: [id number] Output: Output, Urine Amount 725 / 725 Output, Urine Amount (Catheter) 425 / 1900 1475 / 1900 Condom 425 / 1900 1475 / 1900 Other: Meal Refused No NPO No Breakfast % Eaten 75% 50% Lunch % Eaten 50% 50% Urine Urinal Urine Color Yellow Yellow Yellow Last Bowel Movement 09/23/23 Stool Incontinent Stool Amount Small Stool Color Brown Stool Consistency Semi Formed Weight 68.7 kg BMI result Body Mass Index 20.5 - Constitutional Present: no acute distress - Routine HEENT Exam Head: Present: normal inspection - Routine Respiratory Exam Present: CTAB - Routine Cardiovascular Exam Cardiovascular: Present: S1, S2 - Routine Abdominal Exam Present: soft - Routine Skin Exam Present: intact - Routine Neurological Exam Present: alert Data - Labs CBC & Chem 7: 09/22/23 08:02 09/23/23 05:49 Labs: Laboratory Last Values WBC 6.6 X10*3/uL (4.8-10.8) 09/22/23 08:02 RBC 3.58 X10*6/uL (4.60-5.80) L 09/22/23 08:02 Hgb 10.2 g/dl (14.0-18.0) L 09/22/23 08:02 Hct 31.0 % (42.0-52.0) L 09/22/23 08:02 MCV 86.6 fL (80.0-98.0) 09/22/23 08:02 MCH 28.5 pg (27.0-33.0) 09/22/23 08:02 MCHC 32.9 g/dl (31.0-36.0) 09/22/23 08:02 RDW 17.0 % (11.0-16.0) H 09/22/23 08:02 Plt Count 176 X10*3/uL (160-400) D 09/22/23 08:02 MPV 10.4 fL (9.4-12.4) 09/22/23 08:02 Immature Gran % (Auto) 0.5 % (0.0-0.4) H 09/19/23 05:43 Neut % (Auto) 63.2 % (45-73) 09/19/23 05:43 Lymph % (Auto) 22.7 % (20-40) 09/19/23 05:43 [place] % (Auto) 10.5 % (2-11) 09/19/23 05:43 Eos % (Auto) 2.9 % (0-4) 09/19/23 05:43 Baso % (Auto) 0.2 % (0-2) 09/19/23 05:43 Lymph # (Auto) 1.0 X10*3/uL (1.2-4.9) L 09/19/23 05:43 [place] # (Auto) 0.4 X10*3/uL (0.1-1.2) 09/19/23 05:43 Eos # (Auto) 0.1 X10*3/uL (0.0-0.4) 09/19/23 05:43 Baso # (Auto) 0.0 X10*3/uL (0.0-0.2) 09/19/23 05:43 Abs Immat Gran (auto) 0.02 X10*3/uL (0.00-0.03) 09/19/23 05:43 Absolute Neuts (auto) 2.6 x10*3/uL (2.0-8.3) 09/19/23 05:43 Absolute Nucleated RBC 0.000 X10*3/uL (0.0-0.012) 09/22/23 08:02 Nucleated RBC % (auto) 0.0 /100WBC (0.0-0.2) 09/22/23 08:02 Absolute Retic 0.076 X10*6/uL (0.026-0.095) 09/16/23 12:17 Percent Retic 2.3 % (0.5-1.8) H 09/16/23 12:17 Immature Retic Fraction 20.3 % (2.3-13.4) H 09/16/23 12:17 Retic Hgb Equivalent 28.6 pg (30.0-35.0) L 09/16/23 12:17 Hold Purple Top SEE NOTE 05/10/24 05:49 PT 16.3 SEC (11.1-13.3) H 09/06/23 10:53 INR 1.3 (0.9-1.1) H 09/06/23 10:53 APTT 40.0 SEC (26.0-36.8) H 09/06/23 10:53 Sodium 140 mmol/L (135-145) 09/23/23 05:49 Potassium 4.7 mmol/L (3.3-5.1) 09/23/23 05:49 Chloride 101 mmol/L (96-108) 09/23/23 05:49 Carbon Dioxide 24 mmol/L (22-29) 09/23/23 05:49 Anion Gap 20 (12-20) 09/23/23 05:49 BUN 62 mg/dL (9-16) H 09/23/23 05:49 Creatinine 2.17 mg/dL (0.5-1.4) H 09/23/23 05:49 Estim Creat Clear Calc 31.2 09/23/23 05:49 Estimated GFR 30 09/23/23 05:49 Random Glucose 88 mg/dL (60-115) 09/23/23 05:49 Lactic Acid 0.9 mmol/L (0.5-2.0) 09/07/23 08:14 Calcium 9.8 mg/dL (8.4-10.2) 09/23/23 05:49 Magnesium 2.0 mg/dL (1.6-2.6) 09/06/23 10:53 Iron 29 mcg/dL (45-160) L 09/08/23 05:36 TIBC 239 mcg/dL (228-428) 09/08/23 05:36 % Saturation 12 % (15-50) L 09/08/23 05:36 Unsat Iron Binding 210 ug/dL 09/08/23 05:36 Ferritin 85 ng/mL (20-250) 09/08/23 05:36 Total Bilirubin 0.9 mg/dL (0.0-1.0) 09/08/23 05:36 AST 4 U/L (5-37) L 09/08/23 05:36 ALT 5 U/L (0-40) 09/08/23 05:36 Alkaline Phosphatase 84 U/L (39-117) 09/08/23 05:36 Lactate Dehydrogenase 201 U/L (118-273) 09/16/23 12:17 Total Creatine Kinase Cancelled 09/07/23 08:14 Troponin I High Sens 13.8 ng/L (<3.5-35.0) 09/16/23 16:43 B-Natriuretic Peptide 500 pg/mL (<100) H 09/14/23 13:08 Total Protein 6.7 g/dL (6.5-8.0) 09/08/23 05:36 Total Protein (PEP) 6.2 g/dL (6.1-8.1) 09/16/23 12:17 Albumin 3.8 g/dL (3.5-5.0) 09/08/23 05:36 Albumin (PEP) 3.2 g/dL (3.8-4.8) L 09/16/23 12:17 Jjikz-8-Azvwcygjj 0.5 g/dL (0.2-0.3) H 09/16/23 12:17 Ofzby-3-Rinfonblb 0.9 g/dL (0.5-0.9) 09/16/23 12:17 Rzoz-2-Xnvbmmpj 0.4 g/dL (0.4-0.6) 09/16/23 12:17 Zsll-1-Opjrmvij 0.4 g/dL (0.2-0.5) 09/16/23 12:17 Gamma Globulins 0.9 g/dL (0.8-1.7) 09/16/23 12:17 Abnorm Protein Band 1 TNP 09/16/23 12:17 Abnorm Protein Band 2 TNP 09/16/23 12:17 Abnorm Protein Band 3 TNP 09/16/23 12:17 PEP Interpretation SEE NOTE 09/16/23 12:17 Vitamin B12 790 pg/mL (200-900) 09/08/23 05:37 Folate 6.0 ng/mL (> or = 4.0) 09/08/23 05:37 Procalcitonin 0.15 ng/mL 09/17/23 05:51 Urine Color Yellow 09/06/23 10:53 Urine Appearance Clear 09/06/23 10:53 Urine pH 5.0 (5.0-9.0) 09/06/23 10:53 Ur Specific [place] 1.010 (1.005-1.025) 09/06/23 10:53 Urine Protein 300 (3+) mg/dL (Neg-Trace) H 09/06/23 10:53 Urine Glucose (UA) Negative mg/dL (Negative) 09/06/23 10:53 Urine Ketones Negative mg/dL (Negative) 09/06/23 10:53 Urine Blood Trace (Negative) H 09/06/23 10:53 Urine Nitrite Negative (Negative) 09/06/23 10:53 Ur Leukocyte Esterase Negative (Negative) 09/06/23 10:53 Urine RBC 0-2 /HPF (0-2) 09/06/23 10:53 Urine WBC 0-5 /HPF (0-5) 09/06/23 10:53 Ur Squamous Epith Cells 0-2 /HPF (0-2) 09/06/23 10:53 Urine Bacteria 1+ (None Seen) 09/06/23 10:53 Hyaline Casts 0-2 /LPF (0-2) 09/06/23 10:53 Stool Occult Blood NEGATIVE (NEGATIVE) 09/07/23 09:59 IgG Total 918 mg/dL (600-1540) 09/16/23 12:17 IgA Total 316 mg/dL (70-320) 09/16/23 12:17 IgM 54 mg/dL (50-300) 09/16/23 12:17 VLAD Interpretation SEE NOTE 09/16/23 12:17 Respiratory Panel Ortega See Note 09/17/23 08:45 Adenovirus (Rapid PCR) Not Detected (Not Detect.) 09/17/23 08:45 B.pert (TEM-PCR) Not Detected (Not Detect.) 09/17/23 08:45 B.parapertussis DNA PCR Not Detected (Not Detect.) 09/17/23 08:45 C. pneumoniae DNA (PCR) Not Detected (Not Detect.) 09/17/23 08:45 Coronavirus OC43 (PCR) Not Detected (Not Detect.) 09/17/23 08:45 Coronavirus HKU1 (PCR) Not Detected (Not Detect.) 09/17/23 08:45 Coronavirus 229E (PCR) Not Detected (Not Detect.) 09/17/23 08:45 Coronavirus NL63 (PCR) Not Detected (Not Detect.) 09/17/23 08:45 Human Metapneumovir PCR Not Detected (Not Detect.) 09/17/23 08:45 Influenza A (RT-PCR) Not Detected (Not Detect.) 09/17/23 08:45 Influenza Type A (PCR) NEGATIVE (Negative) 09/06/23 10:53 Influenza B (RT-PCR) Not Detected (Not Detect.) 09/17/23 08:45 Influenza Type B (PCR) NEGATIVE (Negative) 09/06/23 10:53 M. pneumoniae (PCR) Not Detected (Not Detect.) 09/17/23 08:45 Parainfluenza 1 (PCR) Not Detected (Not Detect.) 09/17/23 08:45 Parainfluenza 2 (PCR) Not Detected (Not Detect.) 09/17/23 08:45 Parainfluenza 3 (PCR) Detected (Not Detect.) A 09/17/23 08:45 Parainfluenza 4 (PCR) Not Detected (Not Detect.) 09/17/23 08:45 RSV (PCR) Not Detected (Not Detect.) 09/17/23 08:45 RSV RNA Qual (PCR) NEGATIVE (Negative) 09/06/23 10:53 Entero/Rhino (PCR) Not Detected (Not Detect.) 09/17/23 08:45 SARS-CoV-2 RNA (RT-PCR) Not Detected (Not Detect.) 09/17/23 08:45 Blood Type A Positive 09/07/23 11:03 Antibody Screen NEGATIVE 09/07/23 11:03 - Imaging Radiologist's impression: ITS Impressions Chest X-Ray 09/07/23 08:48 IMPRESSION: No acute abnormality. Head CT 09/09/23 05:30 IMPRESSION: No acute intracranial pathology. Mild microvascular ischemic change. Chronic right thalamic lacunar infarction. Chronic right occipital lobe infarction. Chest X-Ray 09/14/23 10:37 IMPRESSION: 1. Diffuse prominent increased interstitial opacities, asymmetrically greater on the left with increased patchy and nodular opacities predominantly in the left mid to lower lung. Differential considerations include edema, infectious/inflammatory process and/or other etiology. Trace left costophrenic angle blunting, possibly representing a pleural effusion. 2. Large amount of stool throughout the colon. Gas is scattered in the colon. This study was presented today, 09/14/2023, for interpretation. Stat results provided at this time as requested by referring provider. KUB X-Ray 09/14/23 10:37 IMPRESSION: 1. Diffuse prominent increased interstitial opacities, asymmetrically greater on the left with increased patchy and nodular opacities predominantly in the left mid to lower lung. Differential considerations include edema, infectious/inflammatory process and/or other etiology. Trace left costophrenic angle blunting, possibly representing a pleural effusion. 2. Large amount of stool throughout the colon. Gas is scattered in the colon. This study was presented today, 09/14/2023, for interpretation. Stat results provided at this time as requested by referring provider. Abdomen Ultrasound 09/14/23 20:06 IMPRESSION: Normal-appearing liver. Pancreas and gallbladder are not seen. Chest CT 09/16/23 12:53 IMPRESSION: 1. Diffuse groundglass airspace opacity in the left upper lobe adjacent to the major fissure. May be infectious or inflammatory in etiology. 2. Small dependent left pleural effusion. 3. Bibasilar dependent atelectasis. 4. Paraseptal emphysematous change of lungs Fleischner guidelines were followed. Assessment and Plan Patient Active problem list reviewed?: Yes (1) Anemia Status: Acute Assessment and plan: 1. This is a 68-year-old male with cognitive impairment admitted for weakness, failure to thrive and acute kidney injury. He was noted to have anemia/mild pancytopenia. His prior CBC from 2016 does not show leukopenia or thrombocytopenia. He has chronic kidney disease which could be contributing to anemia. Vitamin B12 and folic acid levels are normal. Imaging with ultrasound abdomen and CT chest shows no hepatosplenomegaly or evidence of malignancy. Hematological workup shows no hematinic deficiencies, evidence of hemolysis or plasma cell dyscrasia. His blood counts are improving spontaneously. Etiology of cytopenias could be related to recent pneumonia and possible nutritional causes. No further workup is necessary at this time. Thank you. - Time Spent With Patient Time Spent with Patient (in minutes): 5
--- NOTE | 2023-09-23 16:29 | PC.NURSE ---
Rigoberto LEON, MANAGEMENT SCIENTIST, was at the bedside today to speak with pt about becoming his Guardian/Conservator. Meeting went well. Card is in pts chart.
[2023-09-23] MEDS: QUEtiapine Fumarate 25 MG TABLET 12.5 MG PO (17:15)
[2023-09-23] MEDS: cloNIDine HCL 0.1 MG TABLET PO (21:09)
[2023-09-23] MEDS: Apixaban 5 MG TABLET PO (21:09)
[2023-09-23] MEDS: QUEtiapine Fumarate 25 MG TABLET PO (21:09)
[2023-09-23] MEDS: Benzonatate 100 MG CAPSULE 200 MG PO (21:10)
[2023-09-23] MEDS: carvediloL 12.5 MG TABLET PO (21:26)
[2023-09-24] VITALS (9 sets, daily range): BP systolic 117–127; BP diastolic 54–79; PULSE 60–64; RESP 16–20; TEMP 35.5–36.4; O2SAT 92–95
[2023-09-24] MEDS: LORazepam 0.5 MG TABLET PO ×2 (00:57→22:25)
[2023-09-24] MEDS: oxyCODONE HCl Immed Release 15 MG TABLET PO ×5 (00:57→20:13)
[2023-09-24] MEDS: Omeprazole 20 MG CAPSULE.DR PO (05:47)
[2023-09-24 06:22] LABS: Anion Gap 17 (12-20); Blood Urea Nitrogen 62 mg/dL (9-16); Calcium 9.6 mg/dL (8.4-10.2); Carbon Dioxide 26 mmol/L (22-29); Chloride 100 mmol/L (96-108); Creatinine Clr Calc Pharmacy 34.2; Estimated Glomerular Filt Rate 34; Glucose Random 89 mg/dL (60-115); Potassium 4.5 mmol/L (3.3-5.1); Sodium 138 mmol/L (135-145)
[2023-09-24] MEDS: Ferrous Sulfate 324 MG TABLET.DR PO ×2 (08:07→16:10)
[2023-09-24] MEDS: Sucralfate 1 GM TABLET PO ×4 (08:07→20:13)
[2023-09-24] MEDS: Atorvastatin Calcium 40 MG TABLET PO (09:10)
[2023-09-24] MEDS: hydrALAZINE HCl 50 MG TABLET PO ×3 (09:10→20:12)
[2023-09-24] MEDS: Sertraline HCL 100 MG TABLET PO (09:10)
[2023-09-24] MEDS: Isosorbide Mononitrate 60 MG TAB.ER.24H PO (09:11)
[2023-09-24] MEDS: Cholecalciferol (Vitamin D3) 25 MCG TABLET 50 MCG PO (09:11)
[2023-09-24] MEDS: buPROPion HCl XL 150 MG TAB.ER.24H PO (09:11)
[2023-09-24] MEDS: cloNIDine HCL 0.1 MG TABLET PO ×2 (09:11→20:12)
[2023-09-24] MEDS: amLODIPine Besylate 5 MG TABLET PO (09:11)
[2023-09-24] MEDS: allopurinoL 100 MG TABLET PO (09:11)
[2023-09-24] MEDS: carvediloL 12.5 MG TABLET PO ×2 (09:11→20:14)
[2023-09-24] MEDS: Cyanocobalamin (Vitamin B-12) 1,000 MCG TABLET 1000 MCG PO (09:12)
[2023-09-24] MEDS: Apixaban 5 MG TABLET PO ×2 (09:12→20:14)
[2023-09-24] MEDS: polyethylene glycoL 3350 17 GM POWD.PACK PO (09:12)
[2023-09-24] MEDS: 0.9 % Sodium Chloride Flush 3 ML SYRINGE IVFLUSH ×2 (09:18→16:10)
--- NOTE | 2023-09-24 12:28 | P.PNIM_ITS ---
Subjective Subjective Date of Service: 09/24/23 Interval History: Seen and examined this morning Follow-up for placement No overnight events No shortness of breath, no cough Review of Systems Review of Systems: Yes all other systems are reviewed and are negative Physical Exam 2 Vital Signs: Vital Signs: Last Vital Signs Temp 97.3 F 09/24/23 08:30 Pulse 60 09/24/23 09:11 Resp 16 09/24/23 08:30 BP 127/69 09/24/23 09:11 Pulse Ox 93 09/24/23 08:30 O2 Del Method Room Air 09/24/23 08:30 O2 Flow Rate 2 09/18/23 14:35 BMI result Body Mass Index 20.5 Constitutional - Awake and Alert, No apparent distress Eyes - PERRLA, EOMI Cardiovascular - S1S2, RRR, No edema Respiratory - Normal lung expansion, Normal respiratory effort, No respiratory distress, CTA bilaterally Extremities - no calf tenderness bilaterally, no swelling Skin - Warm/Dry Neurological - Alert & oriented x3 Psychological - Appropriate affect Objective Data Active Medications Acetaminophen (Acetaminophen 325 Mg Tablet) 650 mg PO Q6H PRN PRN Reason: Pain, Mild (Pain Scale 1-3) Last Admin: 09/19/23 14:48 Dose: 650 mg Allopurinol (Allopurinol 100 Mg Tablet) 100 mg PO DAILY [facility] Last Admin: 09/24/23 09:11 Dose: 100 mg Documented By: JJ Amlodipine Besylate (Amlodipine Besylate 5 Mg Tablet) 5 mg PO DAILY [facility]; Protocol Last Admin: 09/24/23 09:11 Dose: 5 mg Documented By: JJ Apixaban (Apixaban 5 Mg Tablet) 5 mg PO BID [facility] Last Admin: 09/24/23 09:12 Dose: 5 mg Documented By: JJ Atorvastatin Calcium (Atorvastatin Calcium 40 Mg Tablet) 40 mg PO DAILY [facility] Last Admin: 09/24/23 09:10 Dose: 40 mg Documented By: JJ Benzonatate (Benzonatate 100 Mg Capsule) 200 mg PO TID PRN PRN Reason: Cough Last Admin: 09/23/23 21:10 Dose: 200 mg Documented By: CHEMA Bupropion HCl (Bupropion Hcl Xl 150 Mg Tab.Er.24h) 150 mg PO DAILY [facility] Last Admin: 09/24/23 09:11 Dose: 150 mg Documented By: JJ Carvedilol (Carvedilol 12.5 Mg Tablet) 12.5 mg PO BID [facility]; Protocol Last Admin: 09/24/23 09:11 Dose: 12.5 mg Documented By: JJ Clonidine HCl (Clonidine Hcl 0.1 Mg Tablet) 0.1 mg PO BID [facility]; Protocol Last Admin: 09/24/23 09:11 Dose: 0.1 mg Documented By: JJ Clopidogrel Bisulfate (Clopidogrel Bisulfate 75 Mg Tablet) 75 mg PO DAILY [facility] Last Admin: 09/16/23 08:35 Dose: 75 mg Documented By: TJ Cyanocobalamin (Cyanocobalamin (Vitamin B-12) 1,000 Mcg Tablet) 1,000 mcg PO DAILY [facility] Last Admin: 09/24/23 09:12 Dose: 1,000 mcg Documented By: JJ Docusate Sodium (Docusate Sodium 100 Mg Capsule) 100 mg PO BID [facility] Last Admin: 09/24/23 09:14 Dose: Not Given Documented By: JJ Non-Admin Reason: Patient Refused Ferrous Sulfate (Ferrous Sulfate 324 Mg Tablet.) 324 mg PO BIDWM [facility] Last Admin: 09/24/23 08:07 Dose: 324 mg Documented By: JJ Furosemide (Furosemide 40 Mg Tablet) 40 mg PO BID [facility]; Protocol Last Admin: 09/22/23 20:34 Dose: 40 mg Documented By: CHEMA Guaifenesin/Codeine Phosphate (Guaifen/Codeine Sf 200/20/10ml 10 Ml Liquid) 5 ml PO Q6H PRN PRN Reason: Cough Last Admin: 09/21/23 23:52 Dose: 5 ml Documented By: CHEMA Hydralazine HCl (Hydralazine Hcl 50 Mg Tablet) 50 mg PO TID [facility]; Protocol Last Admin: 09/24/23 09:10 Dose: 50 mg Documented By: JJ Isosorbide Mononitrate (Isosorbide Mononitrate 60 Mg Tab.Er.24h) 60 mg PO DAILY [facility]; Protocol Last Admin: 09/24/23 09:11 Dose: 60 mg Documented By: JJ Lidocaine (Lidocaine 4 % Patch Adh..Patch) 2 patch TRANSDERMA DAILY [facility]; Protocol Last Admin: 09/24/23 09:12 Dose: Not Given Documented By: JJ Non-Admin Reason: Patient Refused Lorazepam (Lorazepam 0.5 Mg Tablet) 0.5 mg PO Q8H PRN PRN Reason: anxiety/restlessness Last Admin: 09/24/23 00:57 Dose: 0.5 mg Documented By: CHEMA Melatonin (Melatonin 3 Mg Tablet) 6 mg PO BEDTIME PRN PRN Reason: Insomnia Last Admin: 09/22/23 21:36 Dose: 6 mg Documented By: CHEMA Omeprazole (Omeprazole 20 Mg Capsule.Dr) 20 mg PO DAILY@0630 [facility] Last Admin: 09/24/23 05:47 Dose: 20 mg Documented By: BECKI Ondansetron HCl (Ondansetron Odt 4 Mg Tab.Rapdis) 4 mg TRANSLINGU Q8H PRN PRN Reason: Nausea And Vomiting Last Admin: 09/06/23 23:09 Dose: 4 mg Documented By: EFRAIN Comments: Early admin ok per . Ondansetron HCl (Ondansetron Hcl 4 Mg/2 Ml Vial) 4 mg IVPUSH Q8H PRN PRN Reason: Nausea and Vomiting Last Admin: 09/20/23 11:55 Dose: 4 mg Documented By: ANEESH Oxycodone HCl (Oxycodone Hcl Immed Release 15 Mg Tablet) 15 mg PO Q4H PRN PRN Reason: Pain, Moderate(Pain Scale 4-6) Last Admin: 09/24/23 10:19 Dose: 15 mg Documented By: JJ Polyethylene Glycol (Polyethylene Glycol 3350 17 Gm Powd.Pack) 17 gm PO DAILY [facility] Last Admin: 09/24/23 09:12 Dose: 17 gm Documented By: JJ Quetiapine Fumarate (Quetiapine Fumarate 25 Mg Tablet) 12.5 mg PO DAILY@1700 [facility] Last Admin: 09/23/23 17:15 Dose: 12.5 mg Documented By: DAGOBERTO Quetiapine Fumarate (Quetiapine Fumarate 25 Mg Tablet) 25 mg PO BID PRN PRN Reason: psychosis Last Admin: 09/23/23 21:09 Dose: 25 mg Documented By: CHEMA Sertraline HCl (Sertraline Hcl 100 Mg Tablet) 100 mg PO DAILY [facility] Last Admin: 09/24/23 09:10 Dose: 100 mg Documented By: JJ Sodium Chloride (0.9 % Sodium Chloride Flush 3 Ml Syringe) 3 ml IVFLUSH QSHIFT [facility] Last Admin: 09/24/23 09:18 Dose: 3 ml Documented By: JJ Sucralfate (Sucralfate 1 Gm Tablet) 1 gm PO QIDACHS [facility] Last Admin: 09/24/23 11:55 Dose: 1 gm Documented By: JJ Vitamin D (Cholecalciferol (Vitamin D3) 25 Mcg Tablet) 50 mcg PO DAILY [facility] Last Admin: 09/24/23 09:11 Dose: 50 mcg Documented By: JJ Labs 09/22/23 08:02 09/24/23 05:41 Labs: Laboratory Results - last 24 hr 09/24/23 05:41 Hold Purple Top SEE NOTE Anion Gap 17 Estim Creat Clear Calc 34.2 Estimated GFR 34 Random Glucose 89 Calcium 9.6 Assessment and Plan (1) Cognitive impairment: Status: Acute Plan 68-year-old man admitted with weakness, failure to thrive, [place]. Found in his home covered in feces and urine. Failure to thrive Supportive care Physical therapy recommended long-term care Psychiatric consult - patient does not have capacity to make medical decisions, healthcare proxy has been invoked Plan for guardianship in process, hearing September 28 Seen by psych - plan to add low dose seroquel to prevent sundowning and prn for agitation Pneumonia, possible viral Chest CT showing diffuse ground-glass airspace opacity in the left upper lobe adjacent to the major fissure. RPP + for parainfluenza no sepsis Procalcitonin low, probable viral Completed course of empiric ceftriaxone and doxycycline blood cultures negative to date Hemoptysis Resolved, Eliquis held for 7 days Eliquis resumed 09/22 FEDERICO on CKD stage 3- improving renal function up and down trending up to 2.17 --> 1.98 hold lasix 09/22 - ?=09/23 resume lasix at lower dose 20mg BID d/c aldactone follow BMP If renal function continues to trend up would consider Nephrology consultation hyperkalemia Resolved d/c potassium replacement d/c aldactone N/V/Abd pain KUB 09/13 negative for obstructive but with stool burden bowel regimen given chronic narcotic use and iron supplementation. Chronic pain will continue home oxycodone 15 mg Q4hrs PCP said that they were weaning him down and he was currently at 90mg a day lidocaine patch to knees as needed Normocytic anemia H/H stable,stool occult negative iron studies with low iron, normal TIBC, ferritin on low side continue iron supplementation. continue bowel regimen H/H stable pancytopenia No baseline for comparison US with no evidence of liver disease hematology consult pending - further work up pending improving ?due to recent viral illness Hypertension Continue amlodipine, hydralazine, coreg, clonidine BP has been soft - will reduce clonidine to bid dosing consider further reduction on meds based on BP Atrial fibrillation, paroxysmal HR controlled On Eliquis and carvedilol Hyperlipidemia continue statin CAD continue BB, statin, imdur Mental health Continue zoloft, wellbutrin JOSE ALEJANDRO not on cpap DVT prophylaxis - Eliquis resumed Attending Dr. Urbina Full code Requires ongoing inpatient stay for process of guardianship with no safe disposition , now with federico likely r/t to diuretic requiring medication adjustment and monitoring or renal function/lytes Quality Stroke Does the patient have a stroke diagnosis?: No VTE Prior VTE?: No VTE Risk Level:: Medical - moderate - high VTE Device Contraindication: Treatment Not Indicated VTE Drug Contraindication: N/A - Med Ordered
[2023-09-24] MEDS: QUEtiapine Fumarate 25 MG TABLET 12.5 MG PO (16:10)
[2023-09-24] MEDS: Docusate Sodium 100 MG CAPSULE PO (20:14)
[2023-09-24] MEDS: Melatonin 3 MG TABLET 6 MG PO (22:23)
[2023-09-25] VITALS (10 sets, daily range): BP systolic 107–137; BP diastolic 59–93; PULSE 53–80; RESP 16–17; TEMP 35.5–36.6; O2SAT 95–96
[2023-09-25] MEDS: 0.9 % Sodium Chloride Flush 3 ML SYRINGE IVFLUSH ×4 (01:11→21:44)
[2023-09-25] MEDS: oxyCODONE HCl Immed Release 15 MG TABLET PO ×5 (03:51→21:48)
[2023-09-25] MEDS: LORazepam 0.5 MG TABLET PO (06:09)
[2023-09-25] MEDS: Omeprazole 20 MG CAPSULE.DR PO (06:09)
[2023-09-25] MEDS: Sucralfate 1 GM TABLET PO ×4 (07:21→21:43)
[2023-09-25] MEDS: Ferrous Sulfate 324 MG TABLET.DR PO ×2 (07:21→16:00)
[2023-09-25] MEDS: Sertraline HCL 100 MG TABLET PO (08:51)
[2023-09-25] MEDS: buPROPion HCl XL 150 MG TAB.ER.24H PO (08:51)
[2023-09-25] MEDS: Apixaban 5 MG TABLET PO ×2 (08:51→21:43)
[2023-09-25] MEDS: Atorvastatin Calcium 40 MG TABLET PO (08:51)
[2023-09-25] MEDS: Cholecalciferol (Vitamin D3) 25 MCG TABLET 50 MCG PO (08:51)
[2023-09-25] MEDS: Docusate Sodium 100 MG CAPSULE PO ×2 (08:51→21:42)
[2023-09-25] MEDS: allopurinoL 100 MG TABLET PO (08:52)
[2023-09-25] MEDS: Cyanocobalamin (Vitamin B-12) 1,000 MCG TABLET 1000 MCG PO (08:52)
[2023-09-25] MEDS: carvediloL 12.5 MG TABLET PO ×2 (08:53→21:43)
[2023-09-25] MEDS: cloNIDine HCL 0.1 MG TABLET PO ×2 (08:53→21:44)
[2023-09-25] MEDS: hydrALAZINE HCl 50 MG TABLET PO ×3 (08:54→21:43)
[2023-09-25] MEDS: Isosorbide Mononitrate 60 MG TAB.ER.24H PO (08:54)
[2023-09-25] MEDS: amLODIPine Besylate 5 MG TABLET PO (08:54)
[2023-09-25 09:19] LABS: Anion Gap 20 (12-20); Blood Urea Nitrogen 60 mg/dL (9-16); Calcium 9.5 mg/dL (8.4-10.2); Carbon Dioxide 19 mmol/L (22-29); Chloride 104 mmol/L (96-108); Creatinine Clr Calc Pharmacy 38.4; Estimated Glomerular Filt Rate 39; Glucose Random 94 mg/dL (60-115); Potassium 4.7 mmol/L (3.3-5.1); Sodium 138 mmol/L (135-145)
--- NOTE | 2023-09-25 12:29 | P.PNIM_ITS ---
Subjective Subjective Date of Service: 09/25/23 Interval History: Seen and examined this morning Follow-up for placement No overnight events Continues reporting joint pain. Has not been out of bed much, has refused attempts. No shortness of breath, no cough Review of Systems Review of Systems: Yes all other systems are reviewed and are negative Physical Exam 2 Vital Signs: Vital Signs: Last Vital Signs Temp 98 F 09/25/23 08:52 Pulse 80 09/25/23 08:53 Resp 16 09/25/23 08:52 BP 137/93 H 09/25/23 08:54 Pulse Ox 96 09/25/23 06:57 O2 Del Method Room Air 09/25/23 06:57 O2 Flow Rate 2 09/18/23 14:35 BMI result Body Mass Index 20.5 Constitutional - Awake and Alert, No apparent distress Eyes - PERRLA, EOMI Cardiovascular - S1S2, RRR, No edema Respiratory - Normal lung expansion, Normal respiratory effort, No respiratory distress, CTA bilaterally Extremities - no calf tenderness bilaterally, no swelling Skin - Warm/Dry Neurological - Alert & oriented x3 Psychological - Appropriate affect Objective Data Active Medications Acetaminophen (Acetaminophen 325 Mg Tablet) 650 mg PO Q6H PRN PRN Reason: Pain, Mild (Pain Scale 1-3) Last Admin: 09/19/23 14:48 Dose: 650 mg Allopurinol (Allopurinol 100 Mg Tablet) 100 mg PO DAILY [facility] Last Admin: 09/25/23 08:52 Dose: 100 mg Documented By: JJ Amlodipine Besylate (Amlodipine Besylate 5 Mg Tablet) 5 mg PO DAILY [facility]; Protocol Last Admin: 09/25/23 08:54 Dose: 5 mg Documented By: JJ Apixaban (Apixaban 5 Mg Tablet) 5 mg PO BID [facility] Last Admin: 09/25/23 08:51 Dose: 5 mg Documented By: JJ Atorvastatin Calcium (Atorvastatin Calcium 40 Mg Tablet) 40 mg PO DAILY [facility] Last Admin: 09/25/23 08:51 Dose: 40 mg Documented By: JJ Benzonatate (Benzonatate 100 Mg Capsule) 200 mg PO TID PRN PRN Reason: Cough Last Admin: 09/23/23 21:10 Dose: 200 mg Documented By: CHEMA Bupropion HCl (Bupropion Hcl Xl 150 Mg Tab.Er.24h) 150 mg PO DAILY [facility] Last Admin: 09/25/23 08:51 Dose: 150 mg Documented By: JJ Carvedilol (Carvedilol 12.5 Mg Tablet) 12.5 mg PO BID [facility]; Protocol Last Admin: 09/25/23 08:53 Dose: 12.5 mg Documented By: JJ Clonidine HCl (Clonidine Hcl 0.1 Mg Tablet) 0.1 mg PO BID [facility]; Protocol Last Admin: 09/25/23 08:53 Dose: 0.1 mg Documented By: JJ Clopidogrel Bisulfate (Clopidogrel Bisulfate 75 Mg Tablet) 75 mg PO DAILY [facility] Last Admin: 09/16/23 08:35 Dose: 75 mg Documented By: TJ Cyanocobalamin (Cyanocobalamin (Vitamin B-12) 1,000 Mcg Tablet) 1,000 mcg PO DAILY [facility] Last Admin: 09/25/23 08:52 Dose: 1,000 mcg Documented By: JJ Docusate Sodium (Docusate Sodium 100 Mg Capsule) 100 mg PO BID [facility] Last Admin: 09/25/23 08:51 Dose: 100 mg Documented By: JJ Ferrous Sulfate (Ferrous Sulfate 324 Mg Tablet.Dr) 324 mg PO BIDWM [facility] Last Admin: 09/25/23 07:21 Dose: 324 mg Documented By: JJ Furosemide (Furosemide 20 Mg Tablet) 20 mg PO BID [facility]; Protocol Guaifenesin/Codeine Phosphate (Guaifen/Codeine Sf 200/20/10ml 10 Ml Liquid) 5 ml PO Q6H PRN PRN Reason: Cough Last Admin: 09/21/23 23:52 Dose: 5 ml Documented By: CHEMA Hydralazine HCl (Hydralazine Hcl 50 Mg Tablet) 50 mg PO TID [facility]; Protocol Last Admin: 09/25/23 08:54 Dose: 50 mg Documented By: JJ Isosorbide Mononitrate (Isosorbide Mononitrate 60 Mg Tab.Er.24h) 60 mg PO DAILY [facility]; Protocol Last Admin: 09/25/23 08:54 Dose: 60 mg Documented By: JJ Lidocaine (Lidocaine 4 % Patch Adh..Patch) 2 patch TRANSDERMA DAILY [facility]; Protocol Last Admin: 09/25/23 09:00 Dose: Not Given Documented By: JJ Non-Admin Reason: Patient Refused Lorazepam (Lorazepam 0.5 Mg Tablet) 0.5 mg PO Q8H PRN PRN Reason: anxiety/restlessness Last Admin: 09/25/23 06:09 Dose: 0.5 mg Documented By: BECKI Melatonin (Melatonin 3 Mg Tablet) 6 mg PO BEDTIME PRN PRN Reason: Insomnia Last Admin: 09/24/23 22:23 Dose: 6 mg Documented By: BECKI Omeprazole (Omeprazole 20 Mg Capsule.Dr) 20 mg PO DAILY@0630 [facility] Last Admin: 09/25/23 06:09 Dose: 20 mg Documented By: BECKI Ondansetron HCl (Ondansetron Odt 4 Mg Tab.Rapdis) 4 mg TRANSLINGU Q8H PRN PRN Reason: Nausea And Vomiting Last Admin: 09/06/23 23:09 Dose: 4 mg Documented By: EFRAIN Comments: Early admin ok per . Ondansetron HCl (Ondansetron Hcl 4 Mg/2 Ml Vial) 4 mg IVPUSH Q8H PRN PRN Reason: Nausea and Vomiting Last Admin: 09/20/23 11:55 Dose: 4 mg Documented By: ANEESH Oxycodone HCl (Oxycodone Hcl Immed Release 15 Mg Tablet) 15 mg PO Q4H PRN PRN Reason: Pain, Moderate(Pain Scale 4-6) Last Admin: 09/25/23 08:52 Dose: 15 mg Documented By: JJ Comments: Polyethylene Glycol (Polyethylene Glycol 3350 17 Gm Powd.Pack) 17 gm PO DAILY [facility] Last Admin: 09/25/23 09:00 Dose: Not Given Documented By: JJ Non-Admin Reason: Patient Refused Quetiapine Fumarate (Quetiapine Fumarate 25 Mg Tablet) 12.5 mg PO DAILY@1700 [facility] Last Admin: 09/24/23 16:10 Dose: 12.5 mg Documented By: JJ Quetiapine Fumarate (Quetiapine Fumarate 25 Mg Tablet) 25 mg PO BID PRN PRN Reason: psychosis Last Admin: 09/23/23 21:09 Dose: 25 mg Documented By: CHEMA Sertraline HCl (Sertraline Hcl 100 Mg Tablet) 100 mg PO DAILY [facility] Last Admin: 09/25/23 08:51 Dose: 100 mg Documented By: JJ Sodium Chloride (0.9 % Sodium Chloride Flush 3 Ml Syringe) 3 ml IVFLUSH QSHIFT [facility] Last Admin: 09/25/23 07:21 Dose: 3 ml Documented By: JJ Sucralfate (Sucralfate 1 Gm Tablet) 1 gm PO QIDACHS [facility] Last Admin: 09/25/23 10:52 Dose: 1 gm Documented By: JJ Vitamin D (Cholecalciferol (Vitamin D3) 25 Mcg Tablet) 50 mcg PO DAILY [facility] Last Admin: 09/25/23 08:51 Dose: 50 mcg Documented By: JJ Labs 09/22/23 08:02 09/25/23 08:10 Labs: Laboratory Results - last 24 hr 09/25/23 08:10 Anion Gap 20 Estim Creat Clear Calc 38.4 Estimated GFR 39 Random Glucose 94 Calcium 9.5 Assessment and Plan (1) Cognitive impairment: Status: Acute Plan 68-year-old man admitted with weakness, failure to thrive, [place]. Found in his home covered in feces and urine. Failure to thrive Supportive care Physical therapy recommended long-term care Psychiatric consult - patient does not have capacity to make medical decisions, healthcare proxy has been invoked Plan for guardianship in process, hearing September 28 Seen by psych - plan to add low dose seroquel to prevent sundowning and prn for agitation Pneumonia, possible viral Chest CT showing diffuse ground-glass airspace opacity in the left upper lobe adjacent to the major fissure. RPP + for parainfluenza no sepsis Procalcitonin low, probable viral Completed course of empiric ceftriaxone and doxycycline blood cultures negative to date Hemoptysis Resolved, Eliquis held for 7 days Eliquis resumed 09/22 [place] on CKD stage 3- improving renal function up and down trending up to 2.17 --> 1.98 --> 1.76 09/24 hold lasix 09/22 - ?=09/23 resume lasix at lower dose 20mg BID d/c aldactone follow BMP If renal function continues to trend up would consider Nephrology consultation hyperkalemia Resolved d/c potassium replacement d/c aldactone N/V/Abd pain KUB 09/13 negative for obstructive but with stool burden bowel regimen given chronic narcotic use and iron supplementation. Chronic pain will continue home oxycodone 15 mg Q4hrs PCP said that they were weaning him down and he was currently at 90mg a day lidocaine patch to knees as needed encourage oob, discussed with nursing Normocytic anemia H/H stable,stool occult negative iron studies with low iron, normal TIBC, ferritin on low side continue iron supplementation. continue bowel regimen H/H stable pancytopenia No baseline for comparison US with no evidence of liver disease hematology consult pending - further work up pending improving ?due to recent viral illness Hypertension Continue amlodipine, hydralazine, coreg, clonidine BP has been soft - will reduce clonidine to bid dosing consider further reduction on meds based on BP Atrial fibrillation, paroxysmal HR controlled On Eliquis and carvedilol Hyperlipidemia continue statin CAD continue BB, statin, imdur Mental health Continue zoloft, wellbutrin JOSE ALEJANDRO not on cpap DVT prophylaxis - Eliquis resumed Attending Dr. Urbina Full code Requires ongoing inpatient stay for process of guardianship with no safe disposition , now with federico likely r/t to diuretic requiring medication adjustment and monitoring or renal function/lytes Quality Stroke Does the patient have a stroke diagnosis?: No VTE Prior VTE?: No VTE Risk Level:: Medical - moderate - high VTE Device Contraindication: Treatment Not Indicated VTE Drug Contraindication: N/A - Med Ordered
[2023-09-25] MEDS: QUEtiapine Fumarate 25 MG TABLET 12.5 MG PO (16:00)
[2023-09-25] MEDS: Melatonin 3 MG TABLET 6 MG PO (21:43)
[2023-09-25] MEDS: QUEtiapine Fumarate 25 MG TABLET PO (21:44)
[2023-09-26] VITALS (10 sets, daily range): BP systolic 108–133; BP diastolic 63–78; PULSE 54–69; RESP 16–18; TEMP 36–36.6; O2SAT 95–96
[2023-09-26] MEDS: Omeprazole 20 MG CAPSULE.DR PO (05:48)
[2023-09-26] MEDS: oxyCODONE HCl Immed Release 15 MG TABLET PO ×4 (05:51→20:31)
[2023-09-26 05:54] LABS: Anion Gap 18 (12-20); Blood Urea Nitrogen 58 mg/dL (9-16); Calcium 9.7 mg/dL (8.4-10.2); Carbon Dioxide 24 mmol/L (22-29); Chloride 104 mmol/L (96-108); Creatinine Clr Calc Pharmacy 34.3; Estimated Glomerular Filt Rate 34; Glucose Random 101 mg/dL (60-115); Potassium 4.5 mmol/L (3.3-5.1); Sodium 141 mmol/L (135-145)
[2023-09-26] MEDS: Docusate Sodium 100 MG CAPSULE PO ×2 (08:11→20:32)
[2023-09-26] MEDS: Sertraline HCL 100 MG TABLET PO (08:11)
[2023-09-26] MEDS: carvediloL 12.5 MG TABLET PO ×2 (08:11→20:32)
[2023-09-26] MEDS: Atorvastatin Calcium 40 MG TABLET PO (08:11)
[2023-09-26] MEDS: allopurinoL 100 MG TABLET PO (08:11)
[2023-09-26] MEDS: hydrALAZINE HCl 50 MG TABLET PO ×3 (08:11→20:32)
[2023-09-26] MEDS: Cyanocobalamin (Vitamin B-12) 1,000 MCG TABLET 1000 MCG PO (08:12)
[2023-09-26] MEDS: buPROPion HCl XL 150 MG TAB.ER.24H PO (08:12)
[2023-09-26] MEDS: Isosorbide Mononitrate 60 MG TAB.ER.24H PO (08:12)
[2023-09-26] MEDS: Ferrous Sulfate 324 MG TABLET.DR PO ×2 (08:12→16:37)
[2023-09-26] MEDS: Apixaban 5 MG TABLET PO ×2 (08:13→20:32)
[2023-09-26] MEDS: Sucralfate 1 GM TABLET PO ×4 (08:13→20:32)
[2023-09-26] MEDS: 0.9 % Sodium Chloride Flush 3 ML SYRINGE IVFLUSH ×3 (08:13→20:32)
[2023-09-26] MEDS: amLODIPine Besylate 5 MG TABLET PO (08:13)
[2023-09-26] MEDS: cloNIDine HCL 0.1 MG TABLET PO ×2 (08:13→21:42)
[2023-09-26] MEDS: Cholecalciferol (Vitamin D3) 25 MCG TABLET 50 MCG PO (08:13)
--- NOTE | 2023-09-26 09:53 | HO.PM.IMPN ---
Subjective Subjective Date of Service: 09/26/23 Interval History: Seen and examined this morning Follow-up for placement No overnight events Continues reporting joint pain. Has not been out of bed much, has refused attempts. No shortness of breath, no cough Review of Systems Review of Systems: Yes all other systems are reviewed and are negative Physical Exam Vital Signs: Vital Signs: Last Vital Signs Temp 97.2 F 09/26/23 07:21 Pulse 62 09/26/23 08:11 Resp 16 09/26/23 07:21 BP 108/71 09/26/23 08:13 Pulse Ox 95 09/26/23 07:21 O2 Del Method Room Air 09/26/23 07:21 O2 Flow Rate 2 09/18/23 14:35 BMI result Body Mass Index 20.5 Appearing in no acute distress. confusion lung sounds are clear to auscultation heart regular rate rhythm, clear S1, S2 positive bowel sounds, abdomen is soft, nontender neuro patient is alert x3, no focal deficits Objective Data Active Medications Acetaminophen (Acetaminophen 325 Mg Tablet) 650 mg PO Q6H PRN PRN Reason: Pain, Mild (Pain Scale 1-3) Last Admin: 09/19/23 14:48 Dose: 650 mg Allopurinol (Allopurinol 100 Mg Tablet) 100 mg PO DAILY [facility] Last Admin: 09/26/23 08:11 Dose: 100 mg Documented By: JJ Amlodipine Besylate (Amlodipine Besylate 5 Mg Tablet) 5 mg PO DAILY [facility]; Protocol Last Admin: 09/26/23 08:13 Dose: 5 mg Documented By: JJ Apixaban (Apixaban 5 Mg Tablet) 5 mg PO BID [facility] Last Admin: 09/26/23 08:13 Dose: 5 mg Documented By: JJ Atorvastatin Calcium (Atorvastatin Calcium 40 Mg Tablet) 40 mg PO DAILY [facility] Last Admin: 09/26/23 08:11 Dose: 40 mg Documented By: JJ Benzonatate (Benzonatate 100 Mg Capsule) 200 mg PO TID PRN PRN Reason: Cough Last Admin: 09/23/23 21:10 Dose: 200 mg Documented By: CHEMA Bupropion HCl (Bupropion Hcl Xl 150 Mg Tab.Er.24h) 150 mg PO DAILY [facility] Last Admin: 09/26/23 08:12 Dose: 150 mg Documented By: JJ Carvedilol (Carvedilol 12.5 Mg Tablet) 12.5 mg PO BID [facility]; Protocol Last Admin: 09/26/23 08:11 Dose: 12.5 mg Documented By: JJ Clonidine HCl (Clonidine Hcl 0.1 Mg Tablet) 0.1 mg PO BID [facility]; Protocol Last Admin: 09/26/23 08:13 Dose: 0.1 mg Documented By: JJ Clopidogrel Bisulfate (Clopidogrel Bisulfate 75 Mg Tablet) 75 mg PO DAILY [facility] Last Admin: 09/16/23 08:35 Dose: 75 mg Documented By: TJ Cyanocobalamin (Cyanocobalamin (Vitamin B-12) 1,000 Mcg Tablet) 1,000 mcg PO DAILY [facility] Last Admin: 09/26/23 08:12 Dose: 1,000 mcg Documented By: JJ Docusate Sodium (Docusate Sodium 100 Mg Capsule) 100 mg PO BID [facility] Last Admin: 09/26/23 08:11 Dose: 100 mg Documented By: JJ Ferrous Sulfate (Ferrous Sulfate 324 Mg Tablet.Dr) 324 mg PO BIDWM [facility] Last Admin: 09/26/23 08:12 Dose: 324 mg Documented By: JJ Furosemide (Furosemide 20 Mg Tablet) 20 mg PO BID [facility]; Protocol Guaifenesin/Codeine Phosphate (Guaifen/Codeine Sf 200/20/10ml 10 Ml Liquid) 5 ml PO Q6H PRN PRN Reason: Cough Last Admin: 09/21/23 23:52 Dose: 5 ml Documented By: CHEMA Hydralazine HCl (Hydralazine Hcl 50 Mg Tablet) 50 mg PO TID [facility]; Protocol Last Admin: 09/26/23 08:11 Dose: 50 mg Documented By: JJ Isosorbide Mononitrate (Isosorbide Mononitrate 60 Mg Tab.Er.24h) 60 mg PO DAILY [facility]; Protocol Last Admin: 09/26/23 08:12 Dose: 60 mg Documented By: JJ Lidocaine (Lidocaine 4 % Patch Adh..Patch) 2 patch TRANSDERMA DAILY [facility]; Protocol Last Admin: 09/26/23 08:18 Dose: Not Given Documented By: JJ Non-Admin Reason: Patient Refused Lorazepam (Lorazepam 0.5 Mg Tablet) 0.5 mg PO Q8H PRN PRN Reason: abnxiety Melatonin (Melatonin 3 Mg Tablet) 6 mg PO BEDTIME PRN PRN Reason: Insomnia Last Admin: 09/25/23 21:43 Dose: 6 mg Documented By: CHEMA Omeprazole (Omeprazole 20 Mg Capsule.Dr) 20 mg PO DAILY@0630 [facility] Last Admin: 09/26/23 05:48 Dose: 20 mg Documented By: CHEMA Ondansetron HCl (Ondansetron Odt 4 Mg Tab.Rapdis) 4 mg TRANSLINGU Q8H PRN PRN Reason: Nausea And Vomiting Last Admin: 09/06/23 23:09 Dose: 4 mg Documented By: EFRAIN Comments: Early admin ok per MD. Ondansetron HCl (Ondansetron Hcl 4 Mg/2 Ml Vial) 4 mg IVPUSH Q8H PRN PRN Reason: Nausea and Vomiting Last Admin: 09/20/23 11:55 Dose: 4 mg Documented By: NAEESH Oxycodone HCl (Oxycodone Hcl Immed Release 15 Mg Tablet) 15 mg PO Q4H PRN PRN Reason: severe pain Last Admin: 09/26/23 05:51 Dose: 15 mg Documented By: CHEMA Polyethylene Glycol (Polyethylene Glycol 3350 17 Gm Powd.Pack) 17 gm PO DAILY [facility] Last Admin: 09/26/23 08:18 Dose: Not Given Documented By: JJ Non-Admin Reason: Patient Refused Quetiapine Fumarate (Quetiapine Fumarate 25 Mg Tablet) 12.5 mg PO DAILY@1700 [facility] Last Admin: 09/25/23 16:00 Dose: 12.5 mg Documented By: JJ Quetiapine Fumarate (Quetiapine Fumarate 25 Mg Tablet) 25 mg PO BID PRN PRN Reason: psychosis Last Admin: 09/25/23 21:44 Dose: 25 mg Documented By: CHEMA Sertraline HCl (Sertraline Hcl 100 Mg Tablet) 100 mg PO DAILY [facility] Last Admin: 09/26/23 08:11 Dose: 100 mg Documented By: JJ Sodium Chloride (0.9 % Sodium Chloride Flush 3 Ml Syringe) 3 ml IVFLUSH QSHIFT [facility] Last Admin: 09/26/23 08:13 Dose: 3 ml Documented By: JJ Sucralfate (Sucralfate 1 Gm Tablet) 1 gm PO QIDACHS [facility] Last Admin: 09/26/23 08:13 Dose: 1 gm Documented By: JJ Vitamin D (Cholecalciferol (Vitamin D3) 25 Mcg Tablet) 50 mcg PO DAILY [facility] Last Admin: 09/26/23 08:13 Dose: 50 mcg Documented By: JJ Labs 09/22/23 08:02 09/26/23 05:19 Labs: Laboratory Results - last 24 hr 09/26/23 05:19 Anion Gap 18 Estim Creat Clear Calc 34.3 Estimated GFR 34 Random Glucose 101 Calcium 9.7 Assessment and Plan (1) Cognitive impairment: Status: Acute Plan 68-year-old man admitted with weakness, failure to thrive, FEDERICO. Found in his home covered in feces and urine. FEDERICO on CKD stage 3- improving renal function up and down off and on Lasix, now on hold aldactone stopped nephrology consultation pending Failure to thrive Supportive care Physical therapy recommended long-term care Psychiatric consult - patient does not have capacity to make medical decisions, healthcare proxy has been invoked Plan for guardianship in process, hearing September 28 Seen by psych - plan to add low dose seroquel to prevent sundowning and prn for agitation Pneumonia, possible viral. Resolved Chest CT showing diffuse ground-glass airspace opacity in the left upper lobe adjacent to the major fissure. RPP + for parainfluenza no sepsis Procalcitonin low, probable viral Completed course of empiric ceftriaxone and doxycycline blood cultures negative to date Hemoptysis. Resolved Eliquis held for 7 days Eliquis resumed 09/22 hyperkalemia Resolved d/c potassium replacement d/c aldactone N/V/Abd pain. Resolved KUB 09/13 negative for obstructive but with stool burden bowel regimen given chronic narcotic use and iron supplementation. Chronic pain will continue home oxycodone 15 mg Q4hrs PCP said that they were weaning him down and he was currently at 90mg a day lidocaine patch to knees as needed encourage oob, discussed with nursing Normocytic anemia H/H stable,stool occult negative iron studies with low iron, normal TIBC, ferritin on low side continue iron supplementation. continue bowel regimen H/H stable pancytopenia No baseline for comparison US with no evidence of liver disease hematology consult pending - further work up pending improving ?due to recent viral illness Hypertension Continue amlodipine, hydralazine, coreg, clonidine BP has been soft - will reduce clonidine to bid dosing consider further reduction on meds based on BP Atrial fibrillation, paroxysmal HR controlled On Eliquis and carvedilol Hyperlipidemia continue statin CAD continue BB, statin, imdur Mental health Continue zoloft, wellbutrin JOSE ALEJANDRO not on cpap DVT prophylaxis - Luis Attending Dr. Urbina Full code Requires ongoing inpatient stay for process of guardianship with no safe disposition Quality Stroke Does the patient have a stroke diagnosis?: No VTE Prior VTE?: No VTE Risk Level:: Medical - moderate - high VTE Device Contraindication: Treatment Not Indicated VTE Drug Contraindication: N/A - Med Ordered
--- NOTE | 2023-09-26 11:52 | P.CONNP_ITS ---
History of Present Illness Reason for Consult Consult date: 09/26/23 Reason for consult: FEDERICO Chief Complaint Chief complaint: FEDERICO, FTT, low HH History of Present Illness Narrative: 68 year old man with a history of atrial fib on Eliquis, CKD, CVA, depression, Gout, and HTN presenting to the emergency department today with weakness. Patient states that he lives at home with his grandson however, today, he was unable to get up so he shouted for help and the walking by [facility] heard him. Admitted on 09/06/23 Creatinine was 1.12 Cr has grafually increased to a peak of 2.17 Now fluctuating around 1.7 HE has anemia and thrombocytopenia PLatelts have increased UA with 300 mg + protein by dipstick NO MCGP by spep Was on LAsix/Aldactone- NOw on hold [facility] Past Medical History Medical History (Updated 09/26/23 @ 12:00 by Yves Otero MD) Shoulder pain Pain in joint involving shoulder region JOSE ALEJANDRO (obstructive sleep apnea) OA (osteoarthritis) of knee Neuropathy of upper extremity Hypertension, renal disease Hyperlipidemia Gout Depression Degenerative joint disease (DJD) of lumbar spine CVA (cerebral vascular accident) Chronic pain syndrome Chronic kidney disease, stage 3b Atrial fibrillation Aortic aneurysm Surgical History Surgical History (Updated 09/16/23 @ 11:23 by Elenita Sutherland MD) Hx of CABG Social History Social History Household Members: Family Household Members Other:: grandson Housing: House Do you presently have visiting nurse or other home services: No Patient Tobacco Use Status: Never used Tobacco Smoked in Last 30 Days: No Use of substances other than those prescribed or required for medical reasons: Yes Substance Use Type: Marijuana Substance Use Frequency: Occasionally Currently Displaying Signs/Symptoms of Drug Intoxication Withdrawal: No Have you been hit, kicked, punched, or otherwise hurt by someone within the past year? If so, by whom?: No Do you feel safe in your current relationship?: No Current Relationship Is there a partner from a previous relationship who is making you feel unsafe now?: No Are you made to feel afraid or neglected: No Advance Directives: Yes Advance Directives Information Provided: No Advance Directives on File: Yes Advance Directives Date on File: 09/06/23 Do you have a plan to hurt others: No Plan Recently lost weight without trying: Unsure service: No Meds Allergies Allergy/AdvReac Type Severity Reaction Status Date / Time No Known Allergies Allergy Verified 09/06/23 10:39 Active Medications: Current Medications Acetaminophen (Acetaminophen 325 Mg Tablet) 650 mg PO Q6H PRN PRN Reason: Pain, Mild (Pain Scale 1-3) Last Admin: 09/19/23 14:48 Dose: 650 mg Allopurinol (Allopurinol 100 Mg Tablet) 100 mg PO DAILY [facility] Last Admin: 09/26/23 08:11 Dose: 100 mg Amlodipine Besylate (Amlodipine Besylate 5 Mg Tablet) 5 mg PO DAILY [facility]; Protocol Last Admin: 09/26/23 08:13 Dose: 5 mg Apixaban (Apixaban 5 Mg Tablet) 5 mg PO BID [facility] Last Admin: 09/26/23 08:13 Dose: 5 mg Atorvastatin Calcium (Atorvastatin Calcium 40 Mg Tablet) 40 mg PO DAILY [facility] Last Admin: 09/26/23 08:11 Dose: 40 mg Benzonatate (Benzonatate 100 Mg Capsule) 200 mg PO TID PRN PRN Reason: Cough Last Admin: 09/23/23 21:10 Dose: 200 mg Bupropion HCl (Bupropion Hcl Xl 150 Mg Tab.Er.24h) 150 mg PO DAILY [facility] Last Admin: 09/26/23 08:12 Dose: 150 mg Carvedilol (Carvedilol 12.5 Mg Tablet) 12.5 mg PO BID [facility]; Protocol Last Admin: 09/26/23 08:11 Dose: 12.5 mg Clonidine HCl (Clonidine Hcl 0.1 Mg Tablet) 0.1 mg PO BID [facility]; Protocol Last Admin: 09/26/23 08:13 Dose: 0.1 mg Clopidogrel Bisulfate (Clopidogrel Bisulfate 75 Mg Tablet) 75 mg PO DAILY [facility] Last Admin: 09/16/23 08:35 Dose: 75 mg Cyanocobalamin (Cyanocobalamin (Vitamin B-12) 1,000 Mcg Tablet) 1,000 mcg PO DAILY [facility] Last Admin: 09/26/23 08:12 Dose: 1,000 mcg Docusate Sodium (Docusate Sodium 100 Mg Capsule) 100 mg PO BID [facility] Last Admin: 09/26/23 08:11 Dose: 100 mg Ferrous Sulfate (Ferrous Sulfate 324 Mg Tablet.Dr) 324 mg PO BIDWM [facility] Last Admin: 09/26/23 08:12 Dose: 324 mg Furosemide (Furosemide 20 Mg Tablet) 20 mg PO BID [facility]; Protocol Guaifenesin/Codeine Phosphate (Guaifen/Codeine Sf 200/20/10ml 10 Ml Liquid) 5 ml PO Q6H PRN PRN Reason: Cough Last Admin: 09/21/23 23:52 Dose: 5 ml Hydralazine HCl (Hydralazine Hcl 50 Mg Tablet) 50 mg PO TID [facility]; Protocol Last Admin: 09/26/23 08:11 Dose: 50 mg Isosorbide Mononitrate (Isosorbide Mononitrate 60 Mg Tab.Er.24h) 60 mg PO DAILY [facility]; Protocol Last Admin: 09/26/23 08:12 Dose: 60 mg Lidocaine (Lidocaine 4 % Patch Adh..Patch) 2 patch TRANSDERMA DAILY [facility]; Protocol Last Admin: 09/26/23 08:18 Dose: Not Given Lorazepam (Lorazepam 0.5 Mg Tablet) 0.5 mg PO Q8H PRN PRN Reason: abnxiety Melatonin (Melatonin 3 Mg Tablet) 6 mg PO BEDTIME PRN PRN Reason: Insomnia Last Admin: 09/25/23 21:43 Dose: 6 mg Omeprazole (Omeprazole 20 Mg Capsule.Dr) 20 mg PO DAILY@0630 [facility] Last Admin: 09/26/23 05:48 Dose: 20 mg Ondansetron HCl (Ondansetron Odt 4 Mg Tab.Rapdis) 4 mg TRANSLINGU Q8H PRN PRN Reason: Nausea And Vomiting Last Admin: 09/06/23 23:09 Dose: 4 mg Ondansetron HCl (Ondansetron Hcl 4 Mg/2 Ml Vial) 4 mg IVPUSH Q8H PRN PRN Reason: Nausea and Vomiting Last Admin: 09/20/23 11:55 Dose: 4 mg Oxycodone HCl (Oxycodone Hcl Immed Release 15 Mg Tablet) 15 mg PO Q4H PRN PRN Reason: severe pain Last Admin: 09/26/23 10:43 Dose: 15 mg Polyethylene Glycol (Polyethylene Glycol 3350 17 Gm Powd.Pack) 17 gm PO DAILY [facility] Last Admin: 09/26/23 08:18 Dose: Not Given Quetiapine Fumarate (Quetiapine Fumarate 25 Mg Tablet) 12.5 mg PO DAILY@1700 [facility] Last Admin: 09/25/23 16:00 Dose: 12.5 mg Quetiapine Fumarate (Quetiapine Fumarate 25 Mg Tablet) 25 mg PO BID PRN PRN Reason: psychosis Last Admin: 09/25/23 21:44 Dose: 25 mg Sertraline HCl (Sertraline Hcl 100 Mg Tablet) 100 mg PO DAILY [facility] Last Admin: 09/26/23 08:11 Dose: 100 mg Sodium Chloride (0.9 % Sodium Chloride Flush 3 Ml Syringe) 3 ml IVFLUSH QSHIFT [facility] Last Admin: 09/26/23 08:13 Dose: 3 ml Sucralfate (Sucralfate 1 Gm Tablet) 1 gm PO QIDACHS [facility] Last Admin: 09/26/23 10:43 Dose: 1 gm Vitamin D (Cholecalciferol (Vitamin D3) 25 Mcg Tablet) 50 mcg PO DAILY [facility] Last Admin: 09/26/23 08:13 Dose: 50 mcg Home Medications ?Medication ?Instructions ?Recorded ?Confirmed ?Last Taken ?Type allopurinol 100 mg tablet 100 mg PO DAILY 09/06/23 09/06/23 Unknown History amlodipine 5 mg tablet 5 mg PO DAILY 09/06/23 09/06/23 Unknown History apixaban 5 mg tablet (Eliquis) 5 mg PO BID 09/06/23 09/06/23 Unknown History atorvastatin 40 mg tablet 40 mg PO DAILY 09/06/23 09/06/23 Unknown History bupropion HCl 150 mg 24 hr tablet, 150 mg PO DAILY 09/06/23 09/06/23 Unknown History extended release carvedilol 12.5 mg tablet 12.5 mg PO BID 09/06/23 09/06/23 Unknown History cholecalciferol (vitamin D3) 1,250 1,250 mcg PO QWEEK 09/06/23 09/06/23 Unknown History mcg (50,000 unit) capsule clonidine HCl 0.1 mg tablet 0.1 mg PO TID 09/06/23 09/06/23 Unknown History clopidogrel 75 mg tablet 75 mg PO DAILY 09/06/23 09/06/23 Unknown History cyanocobalamin (vitamin B-12) 1,000 mcg PO DAILY 09/06/23 09/06/23 Unknown History 1,000 mcg tablet furosemide 40 mg tablet 40 mg PO BID 09/06/23 09/06/23 Unknown History hydralazine 50 mg tablet 50 mg PO TID 09/06/23 09/06/23 Unknown History isosorbide mononitrate 60 mg 60 mg PO QAM 09/06/23 09/06/23 Unknown History tablet,extended release 24 hr ondansetron HCl 4 mg tablet 4 mg PO Q8H PRN Nausea And Vomiting 09/06/23 09/06/23 Unknown History oxycodone 15 mg tablet 15 mg PO Q4H PRN pain 09/06/23 09/06/23 Unknown History pantoprazole 40 mg tablet,delayed 40 mg PO DAILY 09/06/23 09/06/23 Unknown History release potassium chloride 10 mEq 10 meq PO BEDTIME 09/06/23 09/06/23 Unknown History tablet,extended release potassium chloride 10 mEq 20 meq PO DAILY 09/06/23 09/06/23 Unknown History tablet,extended release sertraline 100 mg tablet 100 mg PO DAILY 09/06/23 09/06/23 Unknown History spironolactone 25 mg tablet 25 mg PO DAILY 09/06/23 09/06/23 Unknown History sucralfate 1 gram tablet 1 g PO QIDACHS 09/06/23 09/06/23 Unknown History Physical Exam Vital Signs: Last Vital Signs Temp 97.2 F 09/26/23 07:21 Pulse 62 09/26/23 08:11 Resp 16 09/26/23 07:21 BP 108/71 09/26/23 08:13 Pulse Ox 95 09/26/23 07:21 O2 Del Method Room Air 09/26/23 07:21 O2 Flow Rate 2 09/18/23 14:35 BMI result Body Mass Index 20.5 Const General: ill appearing Neck Neck: Yes supple Resp Auscultation: clear to auscultation bilaterally Cardio Palpation: no palpable S3 Heart sounds: no rubs GI Palpation (GI): Soft to palpation Auscultation: normal bowel sounds Neuro Motor exam (neuro): no asterixis Results Lab Results 09/22/23 08:02 09/26/23 05:19 Lab results: Chemistry 09/24/23 09/25/23 09/26/23 05:41 08:10 05:19 Sodium 138 138 141 Potassium 4.5 4.7 4.5 Carbon Dioxide 26 19 L 24 BUN 62 H 60 H 58 H Creatinine 1.98 H 1.76 H 1.97 H Calcium 9.6 9.5 9.7 Assessment and Plan (1) FEDERICO (acute kidney injury): Status: Acute Plan 68 yr old man with FEDERICO h/o Anemia /Thrombocytopenia NO obstruction by abdominal sonogram UA with proteinuria Need to r/o AGN / AiN Hypoperfusion could be a contributing factor Serology ordered Urine studies ordered Hold Diuretics Keep I > O Procedures Date of Service Date of Service: 09/26/23
[2023-09-26] MEDS: Acetaminophen 325 MG TABLET 650 MG PO (12:43)
[2023-09-26 12:59] LABS: Appearance Urine Clear; Color Urine Yellow; Glucose Urine UA Negative (Negative); Leukocyte Esterase Urine Trace (Negative); Nitrite Urine Negative (Negative); PH 5.5 (5.0-9.0); UMIC TRIGGER UA YES; Urine Blood Negative (Negative); Urine Ketones Negative (Negative); Urine Protein Negative (Neg-Trace)
--- NOTE | 2023-09-26 13:08 | MHC.CM.PN ---
pt remains ready for dc dc pending guardianship hearing scheduled for 09/28
[2023-09-26 13:12] LABS: Bacteria Urine None Seen (None Seen); Hyaline Casts Urine 0-2 /LPF (0-2); RBC Urine 0-2 /HPF (0-2); Squamous Epithelial Cell Urine 0-2 /HPF (0-2); WBC Urine 0-5 /HPF (0-5)
[2023-09-26 13:30] LABS: Creatinine Urine 92.45 mg/dL; Sodium Urine Random < 20.0 mmol/L; Total Protein Urine Random 9 mg/dL (<12)
--- NOTE | 2023-09-26 15:01 | P.CDIM_ITS ---
PROVIDER RESPONSE TEXT: To clarify, the appropriate diagnosis supported by the clinical indicators: Deep tissue injury (DTI) right hip QUERY TEXT: PHYSICIAN'S DOCUMENTATION REQUEST Date of Query: 09/26/2023 11:34 AM EDT Patient Name: Iban Ballesteros Admit Date: 09/07/2023 Dear Evelia Ricketts, A review of the medical record indicates additional documentation may be needed. Please review below and update the documentation accordingly. Clinical Indicators: Wound assessment notes dated 09/24 - Deep tissue injury Right hip Foam dressing Based on the above, could you please provide further information regarding the ulcer/wound/injury: Deep tissue injury (DTI) right hip Pressure induced deep tissue damage (DTI) right hip Other Other (explain) Clinically unable to determine (explain) Thank you, Isatu Shi, CCS, CDIS Use of terms such as suspected, likely, concern for, or probable (associated with a specific diagnosi s that is being evaluated, monitored, or treated as if it exists) are acceptable and can be coded in the inpatient se tting, when documented at the time of discharge. Please use your independent medical judgment in providing your response. THIS QUERY IS PART OF THE PERMANENT MEDICAL RECORD
[2023-09-26] MEDS: QUEtiapine Fumarate 25 MG TABLET 12.5 MG PO (16:37)
[2023-09-26] MEDS: LORazepam 0.5 MG TABLET PO (20:32)
[2023-09-26] MEDS: QUEtiapine Fumarate 25 MG TABLET PO (20:32)
[2023-09-26] MEDS: Melatonin 3 MG TABLET 6 MG PO (22:20)
[2023-09-27] VITALS (10 sets, daily range): BP systolic 106–136; BP diastolic 60–69; PULSE 53–66; RESP 16–18; TEMP 36.2–36.6; O2SAT 93–96
[2023-09-27] MEDS: oxyCODONE HCl Immed Release 15 MG TABLET PO ×4 (04:50→19:49)
[2023-09-27] MEDS: Omeprazole 20 MG CAPSULE.DR PO (05:26)
--- NOTE | 2023-09-27 07:04 | HO.PM.IMPN ---
Subjective Subjective Date of Service: 09/27/23 Interval History: Seen and examined this morning Follow-up for placement No overnight events Continues reporting joint pain. Has not been out of bed much, has refused attempts. No shortness of breath, no cough Review of Systems Review of Systems: Yes all other systems are reviewed and are negative Physical Exam Vital Signs: Vital Signs: Last Vital Signs Temp 97.8 F 09/27/23 03:14 Pulse 53 09/27/23 03:14 Resp 16 09/27/23 03:14 BP 108/68 09/27/23 03:14 Pulse Ox 96 09/27/23 03:14 O2 Del Method Room Air 09/27/23 03:14 O2 Flow Rate 2 09/18/23 14:35 BMI result Body Mass Index 20.5 Appearing in no acute distress lung sounds are clear to auscultation heart regular rate rhythm, clear S1, S2 positive bowel sounds, abdomen is soft, nontender neuro patient is alert, confused Objective Data Active Medications Acetaminophen (Acetaminophen 325 Mg Tablet) 650 mg PO Q6H PRN PRN Reason: Pain, Mild (Pain Scale 1-3) Last Admin: 09/26/23 12:43 Dose: 650 mg Documented By: JJ Comments: Patient requested Tylenol for 6 headache. Allopurinol (Allopurinol 100 Mg Tablet) 100 mg PO DAILY [facility] Last Admin: 09/26/23 08:11 Dose: 100 mg Documented By: JJ Amlodipine Besylate (Amlodipine Besylate 5 Mg Tablet) 5 mg PO DAILY [facility]; Protocol Last Admin: 09/26/23 08:13 Dose: 5 mg Documented By: JJ Apixaban (Apixaban 5 Mg Tablet) 5 mg PO BID [facility] Last Admin: 09/26/23 20:32 Dose: 5 mg Documented By: CHEMA Atorvastatin Calcium (Atorvastatin Calcium 40 Mg Tablet) 40 mg PO DAILY [facility] Last Admin: 09/26/23 08:11 Dose: 40 mg Documented By: JJ Benzonatate (Benzonatate 100 Mg Capsule) 200 mg PO TID PRN PRN Reason: Cough Last Admin: 09/23/23 21:10 Dose: 200 mg Documented By: CHEMA Bupropion HCl (Bupropion Hcl Xl 150 Mg Tab.Er.24h) 150 mg PO DAILY [facility] Last Admin: 09/26/23 08:12 Dose: 150 mg Documented By: JJ Carvedilol (Carvedilol 12.5 Mg Tablet) 12.5 mg PO BID [facility]; Protocol Last Admin: 09/26/23 20:32 Dose: 12.5 mg Documented By: CHEMA Clonidine HCl (Clonidine Hcl 0.1 Mg Tablet) 0.1 mg PO BID [facility]; Protocol Last Admin: 09/26/23 21:42 Dose: 0.1 mg Documented By: CHEMA Clopidogrel Bisulfate (Clopidogrel Bisulfate 75 Mg Tablet) 75 mg PO DAILY [facility] Last Admin: 09/16/23 08:35 Dose: 75 mg Documented By: TJ Cyanocobalamin (Cyanocobalamin (Vitamin B-12) 1,000 Mcg Tablet) 1,000 mcg PO DAILY [facility] Last Admin: 09/26/23 08:12 Dose: 1,000 mcg Documented By: JJ Docusate Sodium (Docusate Sodium 100 Mg Capsule) 100 mg PO BID [facility] Last Admin: 09/26/23 20:32 Dose: 100 mg Documented By: CHEMA Ferrous Sulfate (Ferrous Sulfate 324 Mg Tablet.Dr) 324 mg PO BIDWM [facility] Last Admin: 09/26/23 16:37 Dose: 324 mg Documented By: JJ Furosemide (Furosemide 20 Mg Tablet) 20 mg PO BID [facility]; Protocol Guaifenesin/Codeine Phosphate (Guaifen/Codeine Sf 200/20/10ml 10 Ml Liquid) 5 ml PO Q6H PRN PRN Reason: Cough Last Admin: 09/21/23 23:52 Dose: 5 ml Documented By: CHEMA Hydralazine HCl (Hydralazine Hcl 50 Mg Tablet) 50 mg PO TID [facility]; Protocol Last Admin: 09/26/23 20:32 Dose: 50 mg Documented By: CHEMA Isosorbide Mononitrate (Isosorbide Mononitrate 60 Mg Tab.Er.24h) 60 mg PO DAILY [facility]; Protocol Last Admin: 09/26/23 08:12 Dose: 60 mg Documented By: JJ Lidocaine (Lidocaine 4 % Patch Adh..Patch) 2 patch TRANSDERMA DAILY [facility]; Protocol Last Admin: 09/26/23 08:18 Dose: Not Given Documented By: JJ Non-Admin Reason: Patient Refused Lorazepam (Lorazepam 0.5 Mg Tablet) 0.5 mg PO Q8H PRN PRN Reason: abnxiety Last Admin: 09/26/23 20:32 Dose: 0.5 mg Documented By: CHEMA Melatonin (Melatonin 3 Mg Tablet) 6 mg PO BEDTIME PRN PRN Reason: Insomnia Last Admin: 09/26/23 22:20 Dose: 6 mg Documented By: DONALD Omeprazole (Omeprazole 20 Mg Capsule.Dr) 20 mg PO DAILY@0630 [facility] Last Admin: 09/27/23 05:26 Dose: 20 mg Documented By: CHEMA Ondansetron HCl (Ondansetron Odt 4 Mg Tab.Rapdis) 4 mg TRANSLINGU Q8H PRN PRN Reason: Nausea And Vomiting Last Admin: 09/06/23 23:09 Dose: 4 mg Documented By: EFRAIN Comments: Early admin ok per . Ondansetron HCl (Ondansetron Hcl 4 Mg/2 Ml Vial) 4 mg IVPUSH Q8H PRN PRN Reason: Nausea and Vomiting Last Admin: 09/20/23 11:55 Dose: 4 mg Documented By: ANEESH Oxycodone HCl (Oxycodone Hcl Immed Release 15 Mg Tablet) 15 mg PO Q4H PRN PRN Reason: severe pain Last Admin: 09/27/23 04:50 Dose: 15 mg Documented By: CHEMA Polyethylene Glycol (Polyethylene Glycol 3350 17 Gm Powd.Pack) 17 gm PO DAILY [facility] Last Admin: 09/26/23 08:18 Dose: Not Given Documented By: JJ Non-Admin Reason: Patient Refused Quetiapine Fumarate (Quetiapine Fumarate 25 Mg Tablet) 12.5 mg PO DAILY@1700 [facility] Last Admin: 09/26/23 16:37 Dose: 12.5 mg Documented By: JJ Quetiapine Fumarate (Quetiapine Fumarate 25 Mg Tablet) 25 mg PO BID PRN PRN Reason: psychosis Last Admin: 09/26/23 20:32 Dose: 25 mg Documented By: CHEMA Sertraline HCl (Sertraline Hcl 100 Mg Tablet) 100 mg PO DAILY [facility] Last Admin: 09/26/23 08:11 Dose: 100 mg Documented By: JJ Sodium Chloride (0.9 % Sodium Chloride Flush 3 Ml Syringe) 3 ml IVFLUSH QSHIFT [facility] Last Admin: 09/26/23 20:32 Dose: 3 ml Documented By: CHEMA Sucralfate (Sucralfate 1 Gm Tablet) 1 gm PO QIDACHS [facility] Last Admin: 09/26/23 20:32 Dose: 1 gm Documented By: CHEMA Vitamin D (Cholecalciferol (Vitamin D3) 25 Mcg Tablet) 50 mcg PO DAILY [facility] Last Admin: 09/26/23 08:13 Dose: 50 mcg Documented By: JJ Labs 09/22/23 08:02 09/27/23 07:28 Labs: Laboratory Results - last 24 hr 09/26/23 12:36 Urine Color Yellow Urine Appearance Clear Urine pH 5.5 Ur Specific [place] 1.020 Urine Protein Negative Urine Glucose (UA) Negative Urine Ketones Negative Urine Blood Negative Urine Nitrite Negative Ur Leukocyte Esterase Trace H Urine RBC 0-2 Urine WBC 0-5 Ur Squamous Epith Cells 0-2 Urine Bacteria None Seen Hyaline Casts 0-2 Urine Yeast Present U Random Total Protein 9 Ur Random Sodium < 20.0 Urine Creatinine 92.45 Assessment and Plan (1) Cognitive impairment: Status: Acute Plan 68-year-old man admitted with weakness, failure to thrive, FEDERICO. Found in his home covered in feces and urine. FEDERICO on CKD stage 3- improving renal function up and down off and on Lasix, now on hold aldactone stopped nephrology consultation>check serologies, urine studies, hold diuretics Failure to thrive Supportive care Physical therapy recommended long-term care Psychiatric consult - patient does not have capacity to make medical decisions, healthcare proxy has been invoked Plan for guardianship in process, hearing September 28 Seen by psych - plan to add low dose seroquel to prevent sundowning and prn for agitation Pneumonia, possible viral. Resolved Chest CT showing diffuse ground-glass airspace opacity in the left upper lobe adjacent to the major fissure. RPP + for parainfluenza no sepsis Procalcitonin low, probable viral Completed course of empiric ceftriaxone and doxycycline blood cultures negative to date Hemoptysis. Resolved Eliquis held for 7 days Eliquis resumed 5/10 hyperkalemia Resolved d/c potassium replacement d/c aldactone N/V/Abd pain. Resolved KUB 5/1 negative for obstructive but with stool burden bowel regimen given chronic narcotic use and iron supplementation. Chronic pain will continue home oxycodone 15 mg Q4hrs PCP said that they were weaning him down and he was currently at 90mg a day lidocaine patch to knees as needed encourage oob, discussed with nursing Normocytic anemia H/H stable,stool occult negative iron studies with low iron, normal TIBC, ferritin on low side continue iron supplementation. continue bowel regimen H/H stable pancytopenia No baseline for comparison US with no evidence of liver disease hematology consult pending - further work up pending improving ?due to recent viral illness Hypertension Continue amlodipine, hydralazine, coreg, clonidine BP has been soft - will reduce clonidine to bid dosing consider further reduction on meds based on BP Atrial fibrillation, paroxysmal HR controlled On Eliquis and carvedilol Hyperlipidemia continue statin CAD continue BB, statin, imdur Mental health Continue zoloft, wellbutrin JOSE ALEJANDRO not on cpap DVT prophylaxis - Luis Attending Dr. Urbina Full code Requires ongoing inpatient stay for process of guardianship with no safe disposition Quality Stroke Does the patient have a stroke diagnosis?: No VTE Prior VTE?: No VTE Risk Level:: Medical - moderate - high VTE Device Contraindication: Treatment Not Indicated VTE Drug Contraindication: N/A - Med Ordered
[2023-09-27 07:59] LABS: Lactate Dehydrogenase 125 U/L (118-273)
[2023-09-27 08:00] LABS: Anion Gap 15 (12-20); Blood Urea Nitrogen 57 mg/dL (9-16); Calcium 9.6 mg/dL (8.4-10.2); Carbon Dioxide 24 mmol/L (22-29); Chloride 106 mmol/L (96-108); Creatinine Clr Calc Pharmacy 39.3; Estimated Glomerular Filt Rate 40; Glucose Random 103 mg/dL (60-115); Sodium 141 mmol/L (135-145)
[2023-09-27] MEDS: carvediloL 12.5 MG TABLET PO ×2 (08:33→19:50)
[2023-09-27] MEDS: hydrALAZINE HCl 50 MG TABLET PO ×3 (08:34→19:49)
[2023-09-27] MEDS: Apixaban 5 MG TABLET PO ×2 (08:34→19:49)
[2023-09-27] MEDS: amLODIPine Besylate 5 MG TABLET PO (08:34)
[2023-09-27] MEDS: Sucralfate 1 GM TABLET PO ×4 (08:35→19:48)
[2023-09-27] MEDS: allopurinoL 100 MG TABLET PO (08:35)
[2023-09-27] MEDS: buPROPion HCl XL 150 MG TAB.ER.24H PO (08:35)
[2023-09-27] MEDS: Cholecalciferol (Vitamin D3) 25 MCG TABLET 50 MCG PO (08:35)
[2023-09-27] MEDS: Ferrous Sulfate 324 MG TABLET.DR PO ×2 (08:35→15:43)
[2023-09-27] MEDS: Atorvastatin Calcium 40 MG TABLET PO (08:35)
[2023-09-27] MEDS: Docusate Sodium 100 MG CAPSULE PO ×2 (08:35→19:49)
[2023-09-27] MEDS: Sertraline HCL 100 MG TABLET PO (08:35)
[2023-09-27] MEDS: Isosorbide Mononitrate 60 MG TAB.ER.24H PO (08:35)
[2023-09-27] MEDS: cloNIDine HCL 0.1 MG TABLET PO ×2 (08:35→19:50)
[2023-09-27] MEDS: Cyanocobalamin (Vitamin B-12) 1,000 MCG TABLET 1000 MCG PO (08:35)
[2023-09-27] MEDS: 0.9 % Sodium Chloride Flush 3 ML SYRINGE IVFLUSH ×3 (08:39→23:43)
--- NOTE | 2023-09-27 12:57 | P.PNNP_ITS ---
Subjective Subjective Date of Service: 09/28/23 Interval history: Events noted. No new issues today. Physical Exam 2 Vital Signs: Vital Signs: Last Vital Signs Temp 97.2 F 09/27/23 07:33 Pulse 60 09/27/23 08:33 Resp 16 09/27/23 07:33 BP 106/60 09/27/23 08:35 Pulse Ox 93 09/27/23 07:33 O2 Del Method Room Air 09/27/23 07:33 O2 Flow Rate 2 09/18/23 14:35 BMI result Body Mass Index 20.5 Const: General: ill appearing Neck: Neck: Yes supple Resp: Auscultation: clear to auscultation bilaterally Cardio: Palpation: no palpable S3 Heart sounds: no rubs GI: Palpation (GI): Soft to palpation Auscultation: normal bowel sounds Neuro: Motor exam (neuro): no asterixis Objective Data Labs 09/22/23 08:02 09/27/23 07:28 Labs: Laboratory Results - last 24 hr 09/26/23 09/27/23 12:36 07:28 Sodium 141 Potassium 4.0 Chloride 106 Carbon Dioxide 24 Anion Gap 15 BUN 57 H Creatinine 1.72 H Estim Creat Clear Calc 39.3 Estimated GFR 40 Random Glucose 103 Calcium 9.6 Lactate Dehydrogenase 125 Urine Color Yellow Urine Appearance Clear Urine pH 5.5 Ur Specific [place] 1.020 Urine Protein Negative Urine Glucose (UA) Negative Urine Ketones Negative Urine Blood Negative Urine Nitrite Negative Ur Leukocyte Esterase Trace H Urine RBC 0-2 Urine WBC 0-5 Ur Squamous Epith Cells 0-2 Urine Bacteria None Seen Hyaline Casts 0-2 Urine Yeast Present U Random Total Protein 9 Ur Random Sodium < 20.0 Urine Creatinine 92.45 Microbiology Microbiology Results: Microbiology 09/17/23 08:14 Blood - Venous Blood Culture - Final No growth after 5 days. 09/17/23 08:09 Blood - Venous Blood Culture - Final No growth after 5 days. 09/07/23 08:15 Blood - Venous Blood Culture - Final No growth after 5 days. 09/07/23 08:14 Blood - Venous Blood Culture - Final No growth after 5 days. Procedures Date of Service Date of Service: 09/28/23 Assessment & Plan Assessment and plan (1) FEDERICO (acute kidney injury): Status: Acute Plan 68 yr old man with FEDERICO h/o Anemia /Thrombocytopenia NO obstruction by abdominal sonogram UA with proteinuria Need to r/o AGN / AiN Hypoperfusion could be a contributing factor Creatinine is marginally better Serology ordered Urine studies ordered Hold Diuretics Keep I > O Time Spent With Patient Time: Total time managing care of this patient today ____ minutes. Progress Note: Quality Stroke Does the patient have a stroke diagnosis?: No
[2023-09-27] MEDS: QUEtiapine Fumarate 25 MG TABLET 12.5 MG PO (15:43)
--- NOTE | 2023-09-27 16:31 | MHC.CM.PN ---
A call was received from Rigoberto Lackey. She reports that The Guardianship hearing has appointed her temporary guardian and Conservator. She requested that referrals be sent to SNFs in [place]. Referrals have been sent. Notified Pt of [place] call. He was pleased to know that she is already taking care of business. Rigoberto requested Pts face sheet and SS# be faxed to [phone]. CM will follow for placement.
[2023-09-27] MEDS: Acetaminophen 325 MG TABLET 650 MG PO (22:40)
[2023-09-27] MEDS: Melatonin 3 MG TABLET 6 MG PO (22:57)
[2023-09-28] VITALS (13 sets, daily range): BP systolic 106–137; BP diastolic 60–87; PULSE 50–67; RESP 16–18; TEMP 36.1–36.6; O2SAT 94–95
[2023-09-28] MEDS: oxyCODONE HCl Immed Release 15 MG TABLET PO ×5 (03:58→21:31)
[2023-09-28] MEDS: Omeprazole 20 MG CAPSULE.DR PO (05:47)
[2023-09-28] MEDS: hydrALAZINE HCl 50 MG TABLET PO ×3 (07:47→20:00)
[2023-09-28] MEDS: Apixaban 5 MG TABLET PO ×2 (07:47→20:00)
[2023-09-28] MEDS: Sucralfate 1 GM TABLET PO ×4 (07:47→19:59)
[2023-09-28] MEDS: Atorvastatin Calcium 40 MG TABLET PO (07:48)
[2023-09-28] MEDS: Ferrous Sulfate 324 MG TABLET.DR PO ×2 (07:48→15:54)
[2023-09-28] MEDS: Cyanocobalamin (Vitamin B-12) 1,000 MCG TABLET 1000 MCG PO (07:48)
[2023-09-28] MEDS: Sertraline HCL 100 MG TABLET PO (07:48)
[2023-09-28] MEDS: cloNIDine HCL 0.1 MG TABLET PO ×2 (07:48→19:59)
[2023-09-28] MEDS: Isosorbide Mononitrate 60 MG TAB.ER.24H PO (07:48)
[2023-09-28] MEDS: Cholecalciferol (Vitamin D3) 25 MCG TABLET 50 MCG PO (07:48)
[2023-09-28] MEDS: buPROPion HCl XL 150 MG TAB.ER.24H PO (07:49)
[2023-09-28] MEDS: Docusate Sodium 100 MG CAPSULE PO ×2 (07:49→20:00)
[2023-09-28] MEDS: 0.9 % Sodium Chloride Flush 3 ML SYRINGE IVFLUSH ×2 (07:49→15:52)
[2023-09-28] MEDS: amLODIPine Besylate 5 MG TABLET PO (07:49)
[2023-09-28] MEDS: allopurinoL 100 MG TABLET PO (07:49)
--- NOTE | 2023-09-28 08:54 | P.PNIM_ITS ---
Subjective Subjective Date of Service: 09/28/23 Interval History: Seen and examined this morning Follow-up for placement No overnight events Continues reporting joint pain. Review of Systems Review of Systems: Yes all other systems are reviewed and are negative Physical Exam 2 Vital Signs: Vital Signs: Last Vital Signs Temp 97.8 F 09/28/23 07:41 Pulse 50 09/28/23 07:50 Resp 17 09/28/23 07:41 BP 129/80 09/28/23 07:50 Pulse Ox 94 09/28/23 07:41 O2 Del Method Room Air 09/28/23 07:41 O2 Flow Rate 2 09/18/23 14:35 BMI result Body Mass Index 20.5 alert, confused lungs normal expansion abd soft Objective Data Active Medications Acetaminophen (Acetaminophen 325 Mg Tablet) 650 mg PO Q6H PRN PRN Reason: Pain, Mild (Pain Scale 1-3) Last Admin: 09/27/23 22:40 Dose: 650 mg Documented By: SHAI Allopurinol (Allopurinol 100 Mg Tablet) 100 mg PO DAILY [facility] Last Admin: 09/28/23 07:49 Dose: 100 mg Documented By: TJ Amlodipine Besylate (Amlodipine Besylate 5 Mg Tablet) 5 mg PO DAILY [facility]; Protocol Last Admin: 09/28/23 07:49 Dose: 5 mg Documented By: TJ Apixaban (Apixaban 5 Mg Tablet) 5 mg PO BID [facility] Last Admin: 09/28/23 07:47 Dose: 5 mg Documented By: TJ Atorvastatin Calcium (Atorvastatin Calcium 40 Mg Tablet) 40 mg PO DAILY [facility] Last Admin: 09/28/23 07:48 Dose: 40 mg Documented By: TJ Benzonatate (Benzonatate 100 Mg Capsule) 200 mg PO TID PRN PRN Reason: Cough Last Admin: 09/23/23 21:10 Dose: 200 mg Documented By: CHEMA Bupropion HCl (Bupropion Hcl Xl 150 Mg Tab.Er.24h) 150 mg PO DAILY [facility] Last Admin: 09/28/23 07:49 Dose: 150 mg Documented By: TJ Carvedilol (Carvedilol 12.5 Mg Tablet) 12.5 mg PO BID [facility]; Protocol Last Admin: 09/28/23 07:50 Dose: Not Given Documented By: TJ Non-Admin Reason: Decreased Heart Rate Clonidine HCl (Clonidine Hcl 0.1 Mg Tablet) 0.1 mg PO BID [facility]; Protocol Last Admin: 09/28/23 07:48 Dose: 0.1 mg Documented By: TJ Clopidogrel Bisulfate (Clopidogrel Bisulfate 75 Mg Tablet) 75 mg PO DAILY [facility] Last Admin: 09/16/23 08:35 Dose: 75 mg Documented By: TJ Cyanocobalamin (Cyanocobalamin (Vitamin B-12) 1,000 Mcg Tablet) 1,000 mcg PO DAILY [facility] Last Admin: 09/28/23 07:48 Dose: 1,000 mcg Documented By: TJ Docusate Sodium (Docusate Sodium 100 Mg Capsule) 100 mg PO BID [facility] Last Admin: 09/28/23 07:49 Dose: 100 mg Documented By: TJ Ferrous Sulfate (Ferrous Sulfate 324 Mg Tablet.Dr) 324 mg PO BIDWM [facility] Last Admin: 09/28/23 07:48 Dose: 324 mg Documented By: TJ Furosemide (Furosemide 20 Mg Tablet) 20 mg PO BID [facility]; Protocol Guaifenesin/Codeine Phosphate (Guaifen/Codeine Sf 200/20/10ml 10 Ml Liquid) 5 ml PO Q6H PRN PRN Reason: Cough Last Admin: 09/21/23 23:52 Dose: 5 ml Documented By: CHEMA Hydralazine HCl (Hydralazine Hcl 50 Mg Tablet) 50 mg PO TID [facility]; Protocol Last Admin: 09/28/23 07:47 Dose: 50 mg Documented By: TJ Isosorbide Mononitrate (Isosorbide Mononitrate 60 Mg Tab.Er.24h) 60 mg PO DAILY [facility]; Protocol Last Admin: 09/28/23 07:48 Dose: 60 mg Documented By: TJ Lidocaine (Lidocaine 4 % Patch Adh..Patch) 2 patch TRANSDERMA DAILY [facility]; Protocol Last Admin: 09/28/23 07:49 Dose: Not Given Documented By: TJ Non-Admin Reason: Patient Refused Lorazepam (Lorazepam 0.5 Mg Tablet) 0.5 mg PO Q8H PRN PRN Reason: abnxiety Last Admin: 09/26/23 20:32 Dose: 0.5 mg Documented By: CHEMA Melatonin (Melatonin 3 Mg Tablet) 6 mg PO BEDTIME PRN PRN Reason: Insomnia Last Admin: 09/27/23 22:57 Dose: 6 mg Documented By: SHAI Omeprazole (Omeprazole 20 Mg Capsule.Dr) 20 mg PO DAILY@0630 [facility] Last Admin: 09/28/23 05:47 Dose: 20 mg Documented By: LANIE Ondansetron HCl (Ondansetron Odt 4 Mg Tab.Rapdis) 4 mg TRANSLINGU Q8H PRN PRN Reason: Nausea And Vomiting Last Admin: 09/06/23 23:09 Dose: 4 mg Documented By: EFRAIN Comments: Early admin ok per . Ondansetron HCl (Ondansetron Hcl 4 Mg/2 Ml Vial) 4 mg IVPUSH Q8H PRN PRN Reason: Nausea and Vomiting Last Admin: 09/20/23 11:55 Dose: 4 mg Documented By: ANEESH Oxycodone HCl (Oxycodone Hcl Immed Release 15 Mg Tablet) 15 mg PO Q4H PRN PRN Reason: severe pain Last Admin: 09/28/23 08:17 Dose: 15 mg Documented By: JANET Polyethylene Glycol (Polyethylene Glycol 3350 17 Gm Powd.Pack) 17 gm PO DAILY [facility] Last Admin: 09/28/23 07:50 Dose: Not Given Documented By: TJ Non-Admin Reason: Patient Refused Quetiapine Fumarate (Quetiapine Fumarate 25 Mg Tablet) 12.5 mg PO DAILY@1700 [facility] Last Admin: 09/27/23 15:43 Dose: 12.5 mg Documented By: SHAI Quetiapine Fumarate (Quetiapine Fumarate 25 Mg Tablet) 25 mg PO BID PRN PRN Reason: psychosis Last Admin: 09/26/23 20:32 Dose: 25 mg Documented By: CHEMA Sertraline HCl (Sertraline Hcl 100 Mg Tablet) 100 mg PO DAILY [facility] Last Admin: 09/28/23 07:48 Dose: 100 mg Documented By: TJ Sodium Chloride (0.9 % Sodium Chloride Flush 3 Ml Syringe) 3 ml IVFLUSH QSHIFT [facility] Last Admin: 09/28/23 07:49 Dose: 3 ml Documented By: TJ Sucralfate (Sucralfate 1 Gm Tablet) 1 gm PO QIDACHS [facility] Last Admin: 09/28/23 07:47 Dose: 1 gm Documented By: TJ Vitamin D (Cholecalciferol (Vitamin D3) 25 Mcg Tablet) 50 mcg PO DAILY [facility] Last Admin: 09/28/23 07:48 Dose: 50 mcg Documented By: TJ Labs 09/22/23 08:02 09/27/23 07:28 Assessment and Plan (1) Cognitive impairment: Status: Acute Plan 68-year-old man admitted with weakness, failure to thrive, FEDERICO. Found in his home covered in feces and urine. FEDERICO on CKD stage 3. Creatinine trending down renal function up and down off and on Lasix, now on hold aldactone stopped nephrology consultation>check serologies (MIGUEL pending), urine studies wnl, continue to hold diuretics Failure to thrive Physical therapy recommended long-term care patient does not have capacity to make medical decisions, healthcare proxy has been invoked Guardianship in process>hearing September 26, now working on [employer] application psych following as needed continue seroquel to prevent sundowning and prn for agitation Pneumonia, possible viral. Resolved Chest CT showing diffuse ground-glass airspace opacity in the left upper lobe adjacent to the major fissure. RPP + for parainfluenza no sepsis Completed course of empiric ceftriaxone and doxycycline blood cultures negative to date Hemoptysis. Resolved Eliquis held for 7 days Eliquis resumed 5/10 Hyperkalemia. Resolved d/c potassium replacement d/c aldactone N/V/Abd pain. Resolved KUB 5/ negative for obstructive but with stool burden bowel regimen given chronic narcotic use and iron supplementation. Chronic pain will continue home oxycodone 15 mg Q4hrs PCP said that they were weaning him down and he was currently at 90mg a day lidocaine patch to knees as needed encourage oob, discussed with nursing Normocytic anemia H/H stable,stool occult negative iron studies with low iron, normal TIBC, ferritin on low side continue iron supplementation. continue bowel regimen H/H stable pancytopenia No baseline for comparison US with no evidence of liver disease hematology consult pending - further work up pending improving ?due to recent viral illness Hypertension Continue amlodipine, hydralazine, coreg, clonidine consider further reduction on meds based on BP Atrial fibrillation, paroxysmal HR controlled On Eliquis and carvedilol Hyperlipidemia continue statin CAD continue BB, statin, imdur Mental health Continue zoloft, wellbutrin JOSE ALEJANDRO not on cpap DVT prophylaxis - Luis Attending Dr. Urbina Full code Requires ongoing inpatient stay for process of guardianship with no safe disposition Quality Stroke Does the patient have a stroke diagnosis?: No VTE Prior VTE?: No VTE Risk Level:: Medical - moderate - high VTE Device Contraindication: Treatment Not Indicated VTE Drug Contraindication: N/A - Med Ordered
[2023-09-28 14:44] LABS: Haptoglobin 223 mg/dL (43-212)
--- NOTE | 2023-09-28 15:53 | PC.NURSE ---
IV outdated,OK to remove and keep it out per [facility]
[2023-09-28] MEDS: QUEtiapine Fumarate 25 MG TABLET 12.5 MG PO (15:54)
--- NOTE | 2023-09-28 19:25 | P.PNNP_ITS ---
Subjective Subjective Date of Service: 09/28/23 Interval history: Seen and examined this morning; No overnight events; All recent data reviewed Physical Exam 2 Vital Signs: Vital Signs: Last Vital Signs Temp 97.6 F 09/28/23 19:19 Pulse 67 09/28/23 19:19 Resp 16 09/28/23 19:19 BP 131/87 09/28/23 19:19 Pulse Ox 95 09/28/23 19:19 O2 Del Method Room Air 09/28/23 19:19 O2 Flow Rate 2 09/18/23 14:35 BMI result Body Mass Index 20.5 Const: General: comfortable and no acute distress HEENT: Head: Yes normocephalic Eyes: EOM: EOMs intact bilaterally Neck: Neck: Yes supple Resp: Auscultation: clear to auscultation bilaterally Cardio: Jugular venous distension: no JVD Rate: regular rate GI: Palpation (GI): Soft to palpation Auscultation: normal bowel sounds : General: Yes no CVA tenderness Back/Spine/Pelvis: Back: no CVA tenderness Skin: General skin exam: no rashes or lesions noted Neuro: General: moves all extremities Objective Data Labs 09/22/23 08:02 09/27/23 07:28 Labs: Laboratory Results - last 24 hr 09/27/23 07:28 Haptoglobin 223 H Microbiology Microbiology Results: Microbiology 09/17/23 08:14 Blood - Venous Blood Culture - Final No growth after 5 days. 09/17/23 08:09 Blood - Venous Blood Culture - Final No growth after 5 days. 09/07/23 08:15 Blood - Venous Blood Culture - Final No growth after 5 days. 09/07/23 08:14 Blood - Venous Blood Culture - Final No growth after 5 days. Procedures Date of Service Date of Service: 09/28/23 Assessment & Plan Assessment and plan (1) FEDERICO (acute kidney injury): Status: Acute Plan FEDERICO due to tubular injury Repeat U/A bland; Urine Na reviewed Diuretics on hold; Serum creatinine improving Continue current supportive care for now Needs F/U [facility] for F/U after D/C Progress Note: Quality Stroke Does the patient have a stroke diagnosis?: No
[2023-09-28] MEDS: carvediloL 12.5 MG TABLET PO (19:59)
[2023-09-28 20:55] LABS: Anti Glomerular Basement Memb <1.0 AI; Myeloperoxidase Antibody <1.0 AI; Proteinase 3 PR3 Antibodies <1.0 AI
[2023-09-28] MEDS: Melatonin 3 MG TABLET 6 MG PO (21:31)
[2023-09-29] VITALS (7 sets, daily range): BP systolic 116–136; BP diastolic 69–82; PULSE 51–76; RESP 16–18; TEMP 36–36.8; O2SAT 93–96
[2023-09-29] MEDS: oxyCODONE HCl Immed Release 15 MG TABLET PO ×5 (02:33→22:20)
[2023-09-29] MEDS: Omeprazole 20 MG CAPSULE.DR PO (06:15)
[2023-09-29] MEDS: Atorvastatin Calcium 40 MG TABLET PO (08:47)
[2023-09-29] MEDS: polyethylene glycoL 3350 17 GM POWD.PACK PO (08:47)
[2023-09-29] MEDS: Sertraline HCL 100 MG TABLET PO (08:47)
[2023-09-29] MEDS: Isosorbide Mononitrate 60 MG TAB.ER.24H PO (08:48)
[2023-09-29] MEDS: Cholecalciferol (Vitamin D3) 25 MCG TABLET 50 MCG PO (08:48)
[2023-09-29] MEDS: Ferrous Sulfate 324 MG TABLET.DR PO ×2 (08:48→17:57)
[2023-09-29] MEDS: buPROPion HCl XL 150 MG TAB.ER.24H PO (08:48)
[2023-09-29] MEDS: carvediloL 12.5 MG TABLET PO ×2 (08:48→20:50)
[2023-09-29] MEDS: hydrALAZINE HCl 50 MG TABLET PO ×3 (08:48→20:48)
[2023-09-29] MEDS: Sucralfate 1 GM TABLET PO ×4 (08:48→20:48)
[2023-09-29] MEDS: Cyanocobalamin (Vitamin B-12) 1,000 MCG TABLET 1000 MCG PO (08:49)
[2023-09-29] MEDS: amLODIPine Besylate 5 MG TABLET PO (08:49)
[2023-09-29] MEDS: Docusate Sodium 100 MG CAPSULE PO ×2 (08:49→20:50)
[2023-09-29] MEDS: Apixaban 5 MG TABLET PO ×2 (08:49→20:48)
[2023-09-29] MEDS: cloNIDine HCL 0.1 MG TABLET PO ×2 (08:49→20:48)
[2023-09-29] MEDS: allopurinoL 100 MG TABLET PO (08:49)
--- NOTE | 2023-09-29 09:51 | MHC.CM.PN ---
Addendum entered by Yane Cardona 09/29/23 14:18: Financial plant maintenance engineer Sue Landis, has completed the [employer] sebastian. Outstanding is the SNF info; which will be provided once a SNF has accepted the patient. Sue will fax the [employer] application, as well as the most recent documentation, to Guardian Rigoberto Rocha. A VM was left for Rigoberto to expect the fax. Original Note: [employer]parary Guardianship documented faxed into EMR by CM Director. The documents have been printed and faxed to the pts guardian, Rigoberto Lackey [phone]. The patient has been updated re guardianship documents.
--- NOTE | 2023-09-29 10:37 | P.PNNP_ITS ---
Subjective Subjective Date of Service: 10/04/23 Interval history: Seen and examined this morning; No overnight events; All recent data reviewed Physical Exam 2 Vital Signs: Vital Signs: Last Vital Signs Temp 97.6 F 09/29/23 07:40 Pulse 51 09/29/23 07:40 Resp 16 09/29/23 07:40 BP 136/82 09/29/23 07:40 Pulse Ox 96 09/29/23 07:40 O2 Del Method Room Air 09/29/23 07:40 O2 Flow Rate 2 09/18/23 14:35 BMI result Body Mass Index 20.5 Const: General: ill appearing Neck: Neck: Yes supple Resp: Auscultation: clear to auscultation bilaterally Cardio: Palpation: no palpable S3 Heart sounds: no rubs GI: Palpation (GI): Soft to palpation Auscultation: normal bowel sounds Neuro: Motor exam (neuro): no asterixis Objective Data Labs 09/30/23 07:24 10/02/23 05:53 Labs: Laboratory Results - last 24 hr 09/27/23 07:28 Haptoglobin 223 H Proteinase 3 (PR3) Ab <1.0 Myeloperoxidase Ab <1.0 Glomerular Base Memb Ab <1.0 Microbiology Microbiology Results: Microbiology 09/17/23 08:14 Blood - Venous Blood Culture - Final No growth after 5 days. 09/17/23 08:09 Blood - Venous Blood Culture - Final No growth after 5 days. 09/07/23 08:15 Blood - Venous Blood Culture - Final No growth after 5 days. 09/07/23 08:14 Blood - Venous Blood Culture - Final No growth after 5 days. Procedures Date of Service Date of Service: 10/04/23 Assessment & Plan Assessment and plan (1) FEDERICO (acute kidney injury): Status: Acute Plan 68 yr old man with FEDERICO h/o Anemia /Thrombocytopenia NO obstruction by abdominal sonogram UA with proteinuria Need to r/o AGN / AiN Hypoperfusion could be a contributing factor Creatinine is marginally better Serology unremarkable Hold Diuretics Keep I > O Time Spent With Patient Time: Total time managing care of this patient today ____ minutes. Progress Note: Quality Stroke Does the patient have a stroke diagnosis?: No
[2023-09-29 12:09] LABS: Anion Gap 13 (12-20); Blood Urea Nitrogen 43 mg/dL (9-16); Calcium 9.3 mg/dL (8.4-10.2); Carbon Dioxide 24 mmol/L (22-29); Chloride 107 mmol/L (96-108); Creatinine Clr Calc Pharmacy 43.9; Estimated Glomerular Filt Rate 45; Glucose Random 117 mg/dL (60-115); Potassium 4.6 mmol/L (3.3-5.1); Sodium 139 mmol/L (135-145)
[2023-09-29] MEDS: Lidocaine 4 % Patch ADH..PATCH 2 PATCH TRANSDERMA (13:42)
[2023-09-29] MEDS: Acetaminophen 325 MG TABLET 650 MG PO (14:57)
--- NOTE | 2023-09-29 15:06 | HO.PM.IMPN ---
Subjective Subjective Date of Service: 09/29/23 Interval History: Seen and examined this morning Follow-up for placement No overnight events No change in status Review of Systems Review of Systems: Yes all other systems are reviewed and are negative Constitutional Constitutional: Denies fever(s) Physical Exam Vital Signs: Vital Signs: Last Vital Signs Temp 97.6 F 09/29/23 07:40 Pulse 51 09/29/23 07:40 Resp 16 09/29/23 07:40 BP 136/82 09/29/23 07:40 Pulse Ox 96 09/29/23 07:40 O2 Del Method Room Air 09/29/23 07:40 O2 Flow Rate 2 09/18/23 14:35 BMI result Body Mass Index 20.5 Const: General: cooperative, comfortable, no acute distress, alert and awake Nutritional Appearance: average body habitus Orientation/consciousness: oriented to person, oriented to place and patient oriented x3 Resp: Other: no wheeze, rales Effort & Inspection: normal respiratory effort, able to speak in complete sentences, no respiratory distress and no use of accessory muscles Cardio: Rate: regular rate GI: Inspection: No distended Palpation (GI): Soft to palpation and nontender Neuro: General: oriented to person, oriented to place, patient oriented x3, moves all extremities and CN's II-XI intact bilaterally Extrem: General: Yes no pedal edema Objective Data Active Medications Acetaminophen (Acetaminophen 325 Mg Tablet) 650 mg PO Q6H PRN PRN Reason: Pain, Mild (Pain Scale 1-3) Last Admin: 09/29/23 14:57 Dose: 650 mg Documented By: CASEY Allopurinol (Allopurinol 100 Mg Tablet) 100 mg PO DAILY [facility] Last Admin: 09/29/23 08:49 Dose: 100 mg Documented By: CASEY Amlodipine Besylate (Amlodipine Besylate 5 Mg Tablet) 5 mg PO DAILY [facility]; Protocol Last Admin: 09/29/23 08:49 Dose: 5 mg Documented By: CASEY Apixaban (Apixaban 5 Mg Tablet) 5 mg PO BID [facility] Last Admin: 09/29/23 08:49 Dose: 5 mg Documented By: CASEY Atorvastatin Calcium (Atorvastatin Calcium 40 Mg Tablet) 40 mg PO DAILY [facility] Last Admin: 09/29/23 08:47 Dose: 40 mg Documented By: CASEY Benzonatate (Benzonatate 100 Mg Capsule) 200 mg PO TID PRN PRN Reason: Cough Last Admin: 09/23/23 21:10 Dose: 200 mg Documented By: CHEMA Bupropion HCl (Bupropion Hcl Xl 150 Mg Tab.Er.24h) 150 mg PO DAILY [facility] Last Admin: 09/29/23 08:48 Dose: 150 mg Documented By: CASEY Carvedilol (Carvedilol 12.5 Mg Tablet) 12.5 mg PO BID [facility]; Protocol Last Admin: 09/29/23 08:48 Dose: 12.5 mg Documented By: CASEY Clonidine HCl (Clonidine Hcl 0.1 Mg Tablet) 0.1 mg PO BID [facility]; Protocol Last Admin: 09/29/23 08:49 Dose: 0.1 mg Documented By: CASEY Clopidogrel Bisulfate (Clopidogrel Bisulfate 75 Mg Tablet) 75 mg PO DAILY [facility] Last Admin: 09/16/23 08:35 Dose: 75 mg Documented By: TJ Cyanocobalamin (Cyanocobalamin (Vitamin B-12) 1,000 Mcg Tablet) 1,000 mcg PO DAILY [facility] Last Admin: 09/29/23 08:49 Dose: 1,000 mcg Documented By: CASEY Docusate Sodium (Docusate Sodium 100 Mg Capsule) 100 mg PO BID [facility] Last Admin: 09/29/23 08:49 Dose: 100 mg Documented By: CASEY Ferrous Sulfate (Ferrous Sulfate 324 Mg Tablet.Dr) 324 mg PO BIDWM [facility] Last Admin: 09/29/23 08:48 Dose: 324 mg Documented By: CASEY Furosemide (Furosemide 20 Mg Tablet) 20 mg PO BID [facility]; Protocol Guaifenesin/Codeine Phosphate (Guaifen/Codeine Sf 200/20/10ml 10 Ml Liquid) 5 ml PO Q6H PRN PRN Reason: Cough Last Admin: 09/21/23 23:52 Dose: 5 ml Documented By: CHEMA Hydralazine HCl (Hydralazine Hcl 50 Mg Tablet) 50 mg PO TID [facility]; Protocol Last Admin: 09/29/23 14:55 Dose: 50 mg Documented By: CASEY Isosorbide Mononitrate (Isosorbide Mononitrate 60 Mg Tab.Er.24h) 60 mg PO DAILY [facility]; Protocol Last Admin: 09/29/23 08:48 Dose: 60 mg Documented By: CASEY Lidocaine (Lidocaine 4 % Patch Adh..Patch) 2 patch TRANSDERMA DAILY [facility]; Protocol Last Admin: 09/29/23 13:42 Dose: 2 patch Documented By: CASEY Lorazepam (Lorazepam 0.5 Mg Tablet) 0.5 mg PO Q8H PRN PRN Reason: abnxiety Last Admin: 09/26/23 20:32 Dose: 0.5 mg Documented By: CHEMA Melatonin (Melatonin 3 Mg Tablet) 6 mg PO BEDTIME PRN PRN Reason: Insomnia Last Admin: 09/28/23 21:31 Dose: 6 mg Documented By: SHAI Omeprazole (Omeprazole 20 Mg Capsule.Dr) 20 mg PO DAILY@0630 [facility] Last Admin: 09/29/23 06:15 Dose: 20 mg Documented By: LANIE Ondansetron HCl (Ondansetron Odt 4 Mg Tab.Rapdis) 4 mg TRANSLINGU Q8H PRN PRN Reason: Nausea And Vomiting Last Admin: 09/06/23 23:09 Dose: 4 mg Documented By: EFRAIN Comments: Early admin ok per . Ondansetron HCl (Ondansetron Hcl 4 Mg/2 Ml Vial) 4 mg IVPUSH Q8H PRN PRN Reason: Nausea and Vomiting Last Admin: 09/20/23 11:55 Dose: 4 mg Documented By: ANEESH Oxycodone HCl (Oxycodone Hcl Immed Release 15 Mg Tablet) 15 mg PO Q4H PRN PRN Reason: severe pain Last Admin: 09/29/23 13:39 Dose: 15 mg Documented By: CASEY Polyethylene Glycol (Polyethylene Glycol 3350 17 Gm Powd.Pack) 17 gm PO DAILY [facility] Last Admin: 09/29/23 08:47 Dose: 17 gm Documented By: CASEY Quetiapine Fumarate (Quetiapine Fumarate 25 Mg Tablet) 12.5 mg PO DAILY@1700 [facility] Last Admin: 09/28/23 15:54 Dose: 12.5 mg Documented By: SHAI Quetiapine Fumarate (Quetiapine Fumarate 25 Mg Tablet) 25 mg PO BID PRN PRN Reason: psychosis Last Admin: 09/26/23 20:32 Dose: 25 mg Documented By: CHEMA Sertraline HCl (Sertraline Hcl 100 Mg Tablet) 100 mg PO DAILY [facility] Last Admin: 09/29/23 08:47 Dose: 100 mg Documented By: CASEY Sodium Chloride (0.9 % Sodium Chloride Flush 3 Ml Syringe) 3 ml IVFLUSH QSHIFT [facility] Last Admin: 09/29/23 15:02 Dose: Not Given Documented By: CASEY Non-Admin Reason: No Access Sucralfate (Sucralfate 1 Gm Tablet) 1 gm PO QIDACHS [facility] Last Admin: 09/29/23 11:44 Dose: 1 gm Documented By: CASEY Vitamin D (Cholecalciferol (Vitamin D3) 25 Mcg Tablet) 50 mcg PO DAILY [facility] Last Admin: 09/29/23 08:48 Dose: 50 mcg Documented By: CASEY Labs 09/22/23 08:02 09/29/23 11:41 Labs: Laboratory Results - last 24 hr 09/27/23 09/29/23 07:28 11:41 Anion Gap 13 Estim Creat Clear Calc 43.9 Estimated GFR 45 Random Glucose 117 H Calcium 9.3 Proteinase 3 (PR3) Ab <1.0 Myeloperoxidase Ab <1.0 Glomerular Base Memb Ab <1.0 Assessment and Plan (1) FEDERICO (acute kidney injury): Status: Acute Plan 68-year-old man admitted with weakness, failure to thrive, FEDERICO. Found in his home covered in feces and urine. FEDERICO on CKD stage 3. Creatinine trending down renal function up and down off and on Lasix, now on hold aldactone stopped nephrology consultation>check serologies (MIGUEL pending), urine studies wnl, continue to hold diuretics Failure to thrive Physical therapy recommended long-term care patient does not have capacity to make medical decisions, healthcare proxy has been invoked Guardianship in process>hearing September 26, now working on [employer] application psych following as needed continue seroquel to prevent sundowning and prn for agitation Pneumonia, possible viral. Resolved Chest CT showing diffuse ground-glass airspace opacity in the left upper lobe adjacent to the major fissure. RPP + for parainfluenza no sepsis Completed course of empiric ceftriaxone and doxycycline blood cultures negative to date Hemoptysis. Resolved Eliquis held for 7 days Eliquis resumed 09/22 Hyperkalemia. Resolved d/c potassium replacement d/c aldactone N/V/Abd pain. Resolved KUB 09/13 negative for obstructive but with stool burden bowel regimen given chronic narcotic use and iron supplementation. Chronic pain will continue home oxycodone 15 mg Q4hrs PCP said that they were weaning him down and he was currently at 90mg a day lidocaine patch to knees as needed encourage oob, discussed with nursing Normocytic anemia H/H stable,stool occult negative iron studies with low iron, normal TIBC, ferritin on low side continue iron supplementation. continue bowel regimen H/H stable pancytopenia No baseline for comparison US with no evidence of liver disease hematology consult pending - further work up pending improving ?due to recent viral illness Hypertension Continue amlodipine, hydralazine, coreg, clonidine consider further reduction on meds based on BP Atrial fibrillation, paroxysmal HR controlled On Eliquis and carvedilol Hyperlipidemia continue statin CAD continue BB, statin, imdur Mental health Continue zoloft, wellbutrin JOSE ALEJANDRO not on cpap DVT prophylaxis - Luis Attending Dr. Urbina Full code Requires ongoing inpatient stay for process of guardianship with no safe disposition Quality Stroke Does the patient have a stroke diagnosis?: No VTE Prior VTE?: No VTE Risk Level:: Medical - moderate - high VTE Device Contraindication: Treatment Not Indicated VTE Drug Contraindication: N/A - Med Ordered
[2023-09-29] MEDS: QUEtiapine Fumarate 25 MG TABLET 12.5 MG PO (17:57)
[2023-09-30] VITALS (8 sets, daily range): BP systolic 118–181; BP diastolic 69–98; PULSE 50–80; RESP 16–20; TEMP 36.2–36.6; O2SAT 95–96
[2023-09-30] MEDS: oxyCODONE HCl Immed Release 15 MG TABLET PO ×5 (05:24→23:58)
[2023-09-30] MEDS: Omeprazole 20 MG CAPSULE.DR PO (05:24)
[2023-09-30] MEDS: Ferrous Sulfate 324 MG TABLET.DR PO ×2 (07:09→16:33)
[2023-09-30] MEDS: Sucralfate 1 GM TABLET PO ×4 (07:09→20:43)
[2023-09-30 07:42] LABS: Hemoglobin 10.7 g/dl (14.0-18.0); Mean Corpuscular HGB Conc 32.4 g/dl (31.0-36.0); Mean Corpuscular Hemoglobin 28.4 pg (27.0-33.0); Mean Corpuscular Volume 87.5 fL (80.0-98.0); Mean Platelet Volume 9.9 fL (9.4-12.4); Platelet Count 152 X10*3/uL (160-400); Red Blood Count 3.77 X10*6/uL (4.60-5.80); Red Cell Distribution Width 17.9 % (11.0-16.0); White Blood Count 5.4 X10*3/uL (4.8-10.8)
[2023-09-30 07:57] LABS: Anion Gap 17 (12-20); Blood Urea Nitrogen 37 mg/dL (9-16); Calcium 9.1 mg/dL (8.4-10.2); Carbon Dioxide 20 mmol/L (22-29); Chloride 108 mmol/L (96-108); Creatinine Clr Calc Pharmacy 45.4; Estimated Glomerular Filt Rate 47; Glucose Random 83 mg/dL (60-115); Potassium 4.1 mmol/L (3.3-5.1); Sodium 141 mmol/L (135-145)
[2023-09-30] MEDS: Atorvastatin Calcium 40 MG TABLET PO (09:15)
[2023-09-30] MEDS: Docusate Sodium 100 MG CAPSULE PO ×2 (09:15→20:44)
[2023-09-30] MEDS: allopurinoL 100 MG TABLET PO (09:15)
[2023-09-30] MEDS: Clopidogrel Bisulfate 75 MG TABLET PO (09:15)
[2023-09-30] MEDS: hydrALAZINE HCl 50 MG TABLET PO ×3 (09:15→20:43)
[2023-09-30] MEDS: carvediloL 12.5 MG TABLET PO ×2 (09:15→20:44)
[2023-09-30] MEDS: Cyanocobalamin (Vitamin B-12) 1,000 MCG TABLET 1000 MCG PO (09:15)
[2023-09-30] MEDS: cloNIDine HCL 0.1 MG TABLET PO ×2 (09:15→20:45)
[2023-09-30] MEDS: Apixaban 5 MG TABLET PO ×2 (09:15→20:43)
[2023-09-30] MEDS: Cholecalciferol (Vitamin D3) 25 MCG TABLET 50 MCG PO (09:15)
[2023-09-30] MEDS: Sertraline HCL 100 MG TABLET PO (09:15)
[2023-09-30] MEDS: buPROPion HCl XL 150 MG TAB.ER.24H PO (09:15)
[2023-09-30] MEDS: polyethylene glycoL 3350 17 GM POWD.PACK PO (09:16)
[2023-09-30] MEDS: amLODIPine Besylate 5 MG TABLET PO (09:16)
[2023-09-30] MEDS: Isosorbide Mononitrate 60 MG TAB.ER.24H PO (09:16)
--- NOTE | 2023-09-30 09:30 | MHC.CLN ---
F/U DIET=CARDIAC-APPROPRIATE. ENSURE TID (1050 KCALS, 60 G PROTEIN) TO PROMOTE WOUND HEALING. PO INTAKE USUALLY 50-100%. SKIN WITH DTI TO RIGHT ANKLE AND DTI TO RIGHT HIP. MONITOR PO INTAKE AND ENCOURAGE SUPPLEMENTS.
[2023-09-30] MEDS: LORazepam 0.5 MG TABLET PO (10:33)
[2023-09-30] MEDS: guaiFEN/Codeine SF 200/20/10ML 10 ML LIQUID 5 ML PO (10:35)
--- NOTE | 2023-09-30 14:20 | PC.NURSE ---
d/c IV Flush, no access
--- NOTE | 2023-09-30 14:40 | MHC.CM.PN ---
Guardianship documentation has been emailed to Guardian Rigoberto Rocha; because her fax machine was down at the time that the document was faxed. [facility] facilities have declined to offer a bed. Call placed to Rigoberto. Additional preferences obtained. Referrals have been sent. Plan to followup Tuesday with Rigoberto. [facility] via BLS.
--- NOTE | 2023-09-30 15:29 | P.PNNP_ITS ---
Subjective Subjective Date of Service: 09/30/23 Interval history: Events noted. All recent data reviewed. Physical Exam 2 Vital Signs: Vital Signs: Last Vital Signs Temp 97.2 F 09/30/23 15:18 Pulse 72 09/30/23 15:18 Resp 20 09/30/23 15:18 BP 168/98 H 09/30/23 15:18 Pulse Ox 96 09/30/23 15:18 O2 Del Method Room Air 09/30/23 15:18 O2 Flow Rate 2 09/18/23 14:35 BMI result Body Mass Index 20.5 Const: General: no acute distress Neck: Neck: Yes supple Resp: Auscultation: diminished lung sounds Cardio: Rate: regular rate GI: Palpation (GI): Soft to palpation Neuro: General: moves all extremities Objective Data Labs 09/30/23 07:24 09/30/23 07:25 Labs: Laboratory Results - last 24 hr 09/30/23 09/30/23 07:24 07:25 WBC 5.4 RBC 3.77 L Hgb 10.7 L Hct 33.0 L MCV 87.5 MCH 28.4 MCHC 32.4 RDW 17.9 H Plt Count 152 L MPV 9.9 Absolute Nucleated RBC 0.000 Nucleated RBC % (auto) 0.0 Sodium 141 Potassium 4.1 Chloride 108 Carbon Dioxide 20 L Anion Gap 17 BUN 37 H Creatinine 1.49 H Estim Creat Clear Calc 45.4 Estimated GFR 47 Random Glucose 83 Calcium 9.1 Microbiology Microbiology Results: Microbiology 09/17/23 08:14 Blood - Venous Blood Culture - Final No growth after 5 days. 09/17/23 08:09 Blood - Venous Blood Culture - Final No growth after 5 days. 09/07/23 08:15 Blood - Venous Blood Culture - Final No growth after 5 days. 09/07/23 08:14 Blood - Venous Blood Culture - Final No growth after 5 days. Procedures Date of Service Date of Service: 09/30/23 Assessment & Plan Assessment and plan (1) FEDERICO (acute kidney injury): Status: Acute Plan FEDERICO due to tubular injury Repeat U/A bland; Serum creatinine improved Continue current supportive care for now Needs F/U [facility] for F/U after D/C Progress Note: Quality Stroke Does the patient have a stroke diagnosis?: No
--- NOTE | 2023-09-30 15:29 | P.PNIM_ITS ---
Subjective Subjective Date of Service: 09/30/23 Interval History: Seen and examined this morning Follow-up for placement No overnight events No specific complaints this morning Denies shortness of breath Review of Systems Review of Systems: Yes all other systems are reviewed and are negative Constitutional Constitutional: Denies fever(s) Physical Exam 2 Vital Signs: Vital Signs: Last Vital Signs Temp 97.2 F 09/30/23 15:18 Pulse 72 09/30/23 15:18 Resp 20 09/30/23 15:18 BP 168/98 H 09/30/23 15:18 Pulse Ox 96 09/30/23 15:18 O2 Del Method Room Air 09/30/23 15:18 O2 Flow Rate 2 09/18/23 14:35 BMI result Body Mass Index 20.5 Const: General: cooperative, comfortable, no acute distress, alert and awake Nutritional Appearance: average body habitus Orientation/consciousness: o riented to person, oriented to place and patient oriented x3 Resp: Other: no wheeze, rales Effort & Inspection: normal respiratory effort, able to speak in complete sentences, no respiratory distress and no use of accessory muscles Cardio: Rate: regular rate GI: Inspection: No distended Palpation (GI): Soft to palpation and nontender Neuro: General: oriented to person, oriented to place, patient oriented x3, moves all extremities and CN's II-XI intact bilaterally Extrem: General: Yes no pedal edema Objective Data Active Medications Acetaminophen (Acetaminophen 325 Mg Tablet) 650 mg PO Q6H PRN PRN Reason: Pain, Mild (Pain Scale 1-3) Last Admin: 09/29/23 14:57 Dose: 650 mg Documented By: CASEY Allopurinol (Allopurinol 100 Mg Tablet) 100 mg PO DAILY [facility] Last Admin: 09/30/23 09:15 Dose: 100 mg Documented By: JANET Amlodipine Besylate (Amlodipine Besylate 5 Mg Tablet) 5 mg PO DAILY [facility]; Protocol Last Admin: 09/30/23 09:16 Dose: 5 mg Documented By: JANET Apixaban (Apixaban 5 Mg Tablet) 5 mg PO BID [facility] Last Admin: 09/30/23 09:15 Dose: 5 mg Documented By: JANET Atorvastatin Calcium (Atorvastatin Calcium 40 Mg Tablet) 40 mg PO DAILY [facility] Last Admin: 09/30/23 09:15 Dose: 40 mg Documented By: JANET Benzonatate (Benzonatate 100 Mg Capsule) 200 mg PO TID PRN PRN Reason: Cough Last Admin: 09/23/23 21:10 Dose: 200 mg Documented By: CHEMA Bupropion HCl (Bupropion Hcl Xl 150 Mg Tab.Er.24h) 150 mg PO DAILY [facility] Last Admin: 09/30/23 09:15 Dose: 150 mg Documented By: JANET Carvedilol (Carvedilol 12.5 Mg Tablet) 12.5 mg PO BID [facility]; Protocol Last Admin: 09/30/23 09:15 Dose: 12.5 mg Documented By: JANET Clonidine HCl (Clonidine Hcl 0.1 Mg Tablet) 0.1 mg PO BID [facility]; Protocol Last Admin: 09/30/23 09:15 Dose: 0.1 mg Documented By: JANET Clopidogrel Bisulfate (Clopidogrel Bisulfate 75 Mg Tablet) 75 mg PO DAILY [facility] Last Admin: 09/30/23 09:15 Dose: 75 mg Documented By: JANET Cyanocobalamin (Cyanocobalamin (Vitamin B-12) 1,000 Mcg Tablet) 1,000 mcg PO DAILY [facility] Last Admin: 09/30/23 09:15 Dose: 1,000 mcg Documented By: JANET Docusate Sodium (Docusate Sodium 100 Mg Capsule) 100 mg PO BID [facility] Last Admin: 09/30/23 09:15 Dose: 100 mg Documented By: JANET Ferrous Sulfate (Ferrous Sulfate 324 Mg Tablet.Dr) 324 mg PO BIDWM [facility] Last Admin: 09/30/23 07:09 Dose: 324 mg Documented By: JANET Furosemide (Furosemide 20 Mg Tablet) 20 mg PO BID [facility]; Protocol Guaifenesin/Codeine Phosphate (Guaifen/Codeine Sf 200/20/10ml 10 Ml Liquid) 5 ml PO Q6H PRN PRN Reason: Cough Last Admin: 09/30/23 10:35 Dose: 5 ml Documented By: JANET Hydralazine HCl (Hydralazine Hcl 50 Mg Tablet) 50 mg PO TID [facility]; Protocol Last Admin: 09/30/23 14:19 Dose: 50 mg Documented By: DEREJE Isosorbide Mononitrate (Isosorbide Mononitrate 60 Mg Tab.Er.24h) 60 mg PO DAILY [facility]; Protocol Last Admin: 09/30/23 09:16 Dose: 60 mg Documented By: JANET Lidocaine (Lidocaine 4 % Patch Adh..Patch) 2 patch TRANSDERMA DAILY [facility]; Protocol Last Admin: 09/30/23 09:16 Dose: Not Given Documented By: JANET Non-Admin Reason: Patient Refused Lorazepam (Lorazepam 0.5 Mg Tablet) 0.5 mg PO Q8H PRN PRN Reason: abnxiety Last Admin: 09/30/23 10:33 Dose: 0.5 mg Documented By: JANET Melatonin (Melatonin 3 Mg Tablet) 6 mg PO BEDTIME PRN PRN Reason: Insomnia Last Admin: 09/28/23 21:31 Dose: 6 mg Documented By: SHAI Omeprazole (Omeprazole 20 Mg Capsule.Dr) 20 mg PO DAILY@0630 [facility] Last Admin: 09/30/23 05:24 Dose: 20 mg Documented By: KARIE Ondansetron HCl (Ondansetron Odt 4 Mg Tab.Rapdis) 4 mg TRANSLINGU Q8H PRN PRN Reason: Nausea And Vomiting Last Admin: 09/06/23 23:09 Dose: 4 mg Documented By: EFRAIN Comments: Early admin ok per . Ondansetron HCl (Ondansetron Hcl 4 Mg/2 Ml Vial) 4 mg IVPUSH Q8H PRN PRN Reason: Nausea and Vomiting Last Admin: 09/20/23 11:55 Dose: 4 mg Documented By: ANEESH Oxycodone HCl (Oxycodone Hcl Immed Release 15 Mg Tablet) 15 mg PO Q4H PRN PRN Reason: severe pain Last Admin: 09/30/23 14:19 Dose: 15 mg Documented By: DEREJE Polyethylene Glycol (Polyethylene Glycol 3350 17 Gm Powd.Pack) 17 gm PO DAILY [facility] Last Admin: 09/30/23 09:16 Dose: 17 gm Documented By: JANET Quetiapine Fumarate (Quetiapine Fumarate 25 Mg Tablet) 12.5 mg PO DAILY@1700 [facility] Last Admin: 09/29/23 17:57 Dose: 12.5 mg Documented By: CASEY Quetiapine Fumarate (Quetiapine Fumarate 25 Mg Tablet) 25 mg PO BID PRN PRN Reason: psychosis Last Admin: 09/26/23 20:32 Dose: 25 mg Documented By: CHEMA Sertraline HCl (Sertraline Hcl 100 Mg Tablet) 100 mg PO DAILY [facility] Last Admin: 09/30/23 09:15 Dose: 100 mg Documented By: JANET Sucralfate (Sucralfate 1 Gm Tablet) 1 gm PO QIDACHS [facility] Last Admin: 09/30/23 11:15 Dose: 1 gm Documented By: DEREJE Vitamin D (Cholecalciferol (Vitamin D3) 25 Mcg Tablet) 50 mcg PO DAILY [facility] Last Admin: 09/30/23 09:15 Dose: 50 mcg Documented By: JANET Labs 09/30/23 07:24 09/30/23 07:25 Labs: Laboratory Results - last 24 hr 09/30/23 09/30/23 07:24 07:25 MCV 87.5 MCH 28.4 MCHC 32.4 RDW 17.9 H Plt Count 152 L MPV 9.9 Absolute Nucleated RBC 0.000 Nucleated RBC % (auto) 0.0 Anion Gap 17 Estim Creat Clear Calc 45.4 Estimated GFR 47 Random Glucose 83 Calcium 9.1 Assessment and Plan (1) FEDERICO (acute kidney injury): Status: Acute Plan 68-year-old man admitted with weakness, failure to thrive, FEDERICO. Found in his home covered in feces and urine. FEDERICO on CKD stage 3. Creatinine trending down renal function up and down off and on Lasix, now on hold aldactone stopped nephrology consultation>check serologies (MIGUEL pending), urine studies wnl, continue to hold diuretics Failure to thrive Physical therapy recommended long-term care patient does not have capacity to make medical decisions, healthcare proxy has been invoked Guardianship in process>hearing September 26, now working on [employer] application psych following as needed continue seroquel to prevent sundowning and prn for agitation Pneumonia, possible viral. Resolved Chest CT showing diffuse ground-glass airspace opacity in the left upper lobe adjacent to the major fissure. RPP + for parainfluenza no sepsis Completed course of empiric ceftriaxone and doxycycline blood cultures negative to date Hemoptysis. Resolved Eliquis held for 7 days Eliquis resumed 5/10 Hyperkalemia. Resolved d/c potassium replacement d/c aldactone N/V/Abd pain. Resolved KUB 5/1 negative for obstructive but with stool burden bowel regimen given chronic narcotic use and iron supplementation. Chronic pain will continue home oxycodone 15 mg Q4hrs PCP said that they were weaning him down and he was currently at 90mg a day lidocaine patch to knees as needed encourage oob, discussed with nursing Normocytic anemia H/H stable,stool occult negative iron studies with low iron, normal TIBC, ferritin on low side continue iron supplementation. continue bowel regimen H/H stable pancytopenia No baseline for comparison US with no evidence of liver disease hematology consult pending - further work up pending improving ?due to recent viral illness Hypertension Continue amlodipine, hydralazine, coreg, clonidine (clondidine dose reduced) consider further reduction on meds based on BP Atrial fibrillation, paroxysmal HR controlled On Eliquis and carvedilol Hyperlipidemia continue statin CAD continue BB, statin, imdur Mental health Continue zoloft, wellbutrin JOSE ALEJANDRO not on cpap DVT prophylaxis - Luis Attending Dr. Urbina Full code Requires ongoing inpatient stay for process of guardianship with no safe disposition Quality Stroke Does the patient have a stroke diagnosis?: No VTE Prior VTE?: No VTE Risk Level:: Medical - moderate - high VTE Device Contraindication: Treatment Not Indicated VTE Drug Contraindication: N/A - Med Ordered
[2023-09-30] MEDS: QUEtiapine Fumarate 25 MG TABLET 12.5 MG PO (16:32)
[2023-09-30] MEDS: QUEtiapine Fumarate 25 MG TABLET PO (20:43)
[2023-09-30] MEDS: Melatonin 3 MG TABLET 6 MG PO (20:44)
[2023-10-01] VITALS (11 sets, daily range): BP systolic 113–140; BP diastolic 65–85; PULSE 52–63; RESP 18; TEMP 36.1–36.7; O2SAT 96–97
[2023-10-01] MEDS: guaiFEN/Codeine SF 200/20/10ML 10 ML LIQUID 5 ML PO (00:17)
[2023-10-01] MEDS: Omeprazole 20 MG CAPSULE.DR PO (06:38)
[2023-10-01] MEDS: oxyCODONE HCl Immed Release 15 MG TABLET PO ×4 (08:03→20:24)
[2023-10-01] MEDS: Clopidogrel Bisulfate 75 MG TABLET PO (08:03)
[2023-10-01] MEDS: hydrALAZINE HCl 50 MG TABLET PO ×3 (08:03→20:25)
[2023-10-01] MEDS: Sucralfate 1 GM TABLET PO ×4 (08:03→20:26)
[2023-10-01] MEDS: Atorvastatin Calcium 40 MG TABLET PO (08:03)
[2023-10-01] MEDS: Sertraline HCL 100 MG TABLET PO (08:04)
[2023-10-01] MEDS: allopurinoL 100 MG TABLET PO (08:04)
[2023-10-01] MEDS: amLODIPine Besylate 5 MG TABLET PO (08:04)
[2023-10-01] MEDS: cloNIDine HCL 0.1 MG TABLET PO ×2 (08:04→20:26)
[2023-10-01] MEDS: Isosorbide Mononitrate 60 MG TAB.ER.24H PO (08:04)
[2023-10-01] MEDS: Cyanocobalamin (Vitamin B-12) 1,000 MCG TABLET 1000 MCG PO (08:04)
[2023-10-01] MEDS: Ferrous Sulfate 324 MG TABLET.DR PO ×2 (08:04→16:22)
[2023-10-01] MEDS: Docusate Sodium 100 MG CAPSULE PO ×2 (08:04→20:26)
[2023-10-01] MEDS: buPROPion HCl XL 150 MG TAB.ER.24H PO (08:04)
[2023-10-01] MEDS: Cholecalciferol (Vitamin D3) 25 MCG TABLET 50 MCG PO (08:05)
[2023-10-01] MEDS: Apixaban 5 MG TABLET PO ×2 (08:05→20:25)
[2023-10-01] MEDS: QUEtiapine Fumarate 25 MG TABLET 12.5 MG PO (16:22)
--- NOTE | 2023-10-01 17:34 | HO.PM.IMPN ---
Subjective Subjective Date of Service: 10/01/23 Interval History: Seen and examined this morning Follow-up for placement No overnight events Feeling okay, no shortness of breath Review of Systems Review of Systems: Yes all other systems are reviewed and are negative Constitutional Constitutional: Denies chills and Denies fever(s) Physical Exam Vital Signs: Vital Signs: Last Vital Signs Temp 96.9 F 10/01/23 15:34 Pulse 62 10/01/23 15:34 Resp 18 10/01/23 15:34 BP 121/74 10/01/23 15:34 Pulse Ox 96 10/01/23 15:34 O2 Del Method Room Air 10/01/23 15:34 O2 Flow Rate 2 09/18/23 14:35 BMI result Body Mass Index 20.5 Const: General: cooperative, comfortable, no acute distress, alert and awake Nutritional Appearance: average body habitus Resp: Other: no wheeze, rales Effort & Inspection: normal respiratory effort, able to speak in complete sentences, no respiratory distress and no use of accessory muscles Cardio: Rate: regular rate GI: Inspection: No distended Palpation (GI): Soft to palpation and nontender Neuro: General: moves all extremities and CN's II-XI intact bilaterally Extrem: General: Yes no pedal edema Objective Data Active Medications Acetaminophen (Acetaminophen 325 Mg Tablet) 650 mg PO Q6H PRN PRN Reason: Pain, Mild (Pain Scale 1-3) Last Admin: 09/29/23 14:57 Dose: 650 mg Documented By: CASEY Allopurinol (Allopurinol 100 Mg Tablet) 100 mg PO DAILY [facility] Last Admin: 10/01/23 08:04 Dose: 100 mg Documented By: TJ Amlodipine Besylate (Amlodipine Besylate 5 Mg Tablet) 5 mg PO DAILY [facility]; Protocol Last Admin: 10/01/23 08:04 Dose: 5 mg Documented By: TJ Apixaban (Apixaban 5 Mg Tablet) 5 mg PO BID [facility] Last Admin: 10/01/23 08:05 Dose: 5 mg Documented By: TJ Atorvastatin Calcium (Atorvastatin Calcium 40 Mg Tablet) 40 mg PO DAILY [facility] Last Admin: 10/01/23 08:03 Dose: 40 mg Documented By: TJ Benzonatate (Benzonatate 100 Mg Capsule) 200 mg PO TID PRN PRN Reason: Cough Last Admin: 09/23/23 21:10 Dose: 200 mg Documented By: CHEMA Bupropion HCl (Bupropion Hcl Xl 150 Mg Tab.Er.24h) 150 mg PO DAILY [facility] Last Admin: 10/01/23 08:04 Dose: 150 mg Documented By: TJ Carvedilol (Carvedilol 12.5 Mg Tablet) 12.5 mg PO BID [facility]; Protocol Last Admin: 10/01/23 08:05 Dose: Not Given Documented By: TJ Non-Admin Reason: Decreased Heart Rate Clonidine HCl (Clonidine Hcl 0.1 Mg Tablet) 0.1 mg PO BID [facility]; Protocol Last Admin: 10/01/23 08:04 Dose: 0.1 mg Documented By: TJ Clopidogrel Bisulfate (Clopidogrel Bisulfate 75 Mg Tablet) 75 mg PO DAILY [facility] Last Admin: 10/01/23 08:03 Dose: 75 mg Documented By: TJ Cyanocobalamin (Cyanocobalamin (Vitamin B-12) 1,000 Mcg Tablet) 1,000 mcg PO DAILY [facility] Last Admin: 10/01/23 08:04 Dose: 1,000 mcg Documented By: TJ Docusate Sodium (Docusate Sodium 100 Mg Capsule) 100 mg PO BID [facility] Last Admin: 10/01/23 08:04 Dose: 100 mg Documented By: TJ Ferrous Sulfate (Ferrous Sulfate 324 Mg Tablet.Dr) 324 mg PO BIDWM [facility] Last Admin: 10/01/23 16:22 Dose: 324 mg Documented By: SHAI Furosemide (Furosemide 20 Mg Tablet) 20 mg PO BID [facility]; Protocol Hydralazine HCl (Hydralazine Hcl 50 Mg Tablet) 50 mg PO TID [facility]; Protocol Last Admin: 10/01/23 14:27 Dose: 50 mg Documented By: TJ Isosorbide Mononitrate (Isosorbide Mononitrate 60 Mg Tab.Er.24h) 60 mg PO DAILY [facility]; Protocol Last Admin: 10/01/23 08:04 Dose: 60 mg Documented By: TJ Lidocaine (Lidocaine 4 % Patch Adh..Patch) 2 patch TRANSDERMA DAILY [facility]; Protocol Last Admin: 10/01/23 08:06 Dose: Not Given Documented By: TJ Non-Admin Reason: Patient Refused Melatonin (Melatonin 3 Mg Tablet) 6 mg PO BEDTIME PRN PRN Reason: Insomnia Last Admin: 09/30/23 20:44 Dose: 6 mg Documented By: CHEMA Omeprazole (Omeprazole 20 Mg Capsule.Dr) 20 mg PO DAILY@0630 [facility] Last Admin: 10/01/23 06:38 Dose: 20 mg Documented By: LANIE Ondansetron HCl (Ondansetron Odt 4 Mg Tab.Rapdis) 4 mg TRANSLINGU Q8H PRN PRN Reason: Nausea And Vomiting Last Admin: 09/06/23 23:09 Dose: 4 mg Documented By: EFRAIN Comments: Early admin ok per . Ondansetron HCl (Ondansetron Hcl 4 Mg/2 Ml Vial) 4 mg IVPUSH Q8H PRN PRN Reason: Nausea and Vomiting Last Admin: 09/20/23 11:55 Dose: 4 mg Documented By: ANEESH Oxycodone HCl (Oxycodone Hcl Immed Release 15 Mg Tablet) 15 mg PO Q4H PRN PRN Reason: severe pain Last Admin: 10/01/23 16:23 Dose: 15 mg Documented By: SHAI Polyethylene Glycol (Polyethylene Glycol 3350 17 Gm Powd.Pack) 17 gm PO DAILY [facility] Last Admin: 10/01/23 08:06 Dose: Not Given Documented By: TJ Non-Admin Reason: Patient Refused Quetiapine Fumarate (Quetiapine Fumarate 25 Mg Tablet) 12.5 mg PO DAILY@1700 [facility] Last Admin: 10/01/23 16:22 Dose: 12.5 mg Documented By: SHAI Quetiapine Fumarate (Quetiapine Fumarate 25 Mg Tablet) 25 mg PO BID PRN PRN Reason: psychosis Last Admin: 09/30/23 20:43 Dose: 25 mg Documented By: CHEMA Sertraline HCl (Sertraline Hcl 100 Mg Tablet) 100 mg PO DAILY [facility] Last Admin: 10/01/23 08:04 Dose: 100 mg Documented By: TJ Sucralfate (Sucralfate 1 Gm Tablet) 1 gm PO QIDACHS [facility] Last Admin: 10/01/23 16:23 Dose: 1 gm Documented By: HO.BEIT Vitamin D (Cholecalciferol (Vitamin D3) 25 Mcg Tablet) 50 mcg PO DAILY [facility] Last Admin: 10/01/23 08:05 Dose: 50 mcg Documented By: TJ Labs 09/30/23 07:24 09/30/23 07:25 Assessment and Plan (1) FEDERICO (acute kidney injury): Status: Acute (2) Cognitive impairment: Status: Acute Plan 68-year-old man admitted with weakness, failure to thrive, FEDERICO. Found in his home covered in feces and urine. FEDERICO on CKD stage 3. Creatinine trending down renal function up and down off and on Lasix, now on hold aldactone stopped nephrology consultation>check serologies (MIGUEL pending), urine studies wnl, continue to hold diuretics Failure to thrive Physical therapy recommended long-term care patient does not have capacity to make medical decisions, healthcare proxy has been invoked Guardianship in process>hearing September 26, now working on [employer] application psych following as needed continue seroquel to prevent sundowning and prn for agitation Pneumonia, possible viral. Resolved Chest CT showing diffuse ground-glass airspace opacity in the left upper lobe adjacent to the major fissure. RPP + for parainfluenza no sepsis Completed course of empiric ceftriaxone and doxycycline blood cultures negative to date Hemoptysis. Resolved Eliquis held for 7 days Eliquis resumed 5/10 Hyperkalemia. Resolved d/c potassium replacement d/c aldactone N/V/Abd pain. Resolved KUB 5/1 negative for obstructive but with stool burden bowel regimen given chronic narcotic use and iron supplementation. Chronic pain will continue home oxycodone 15 mg Q4hrs PCP said that they were weaning him down and he was currently at 90mg a day lidocaine patch to knees as needed encourage oob, discussed with nursing Normocytic anemia H/H stable,stool occult negative iron studies with low iron, normal TIBC, ferritin on low side continue iron supplementation. continue bowel regimen H/H stable pancytopenia No baseline for comparison US with no evidence of liver disease hematology consult pending - further work up pending improving ?due to recent viral illness Hypertension Continue amlodipine, hydralazine, coreg, clonidine (will continue to wean clonidine as HR on lower side) consider further reduction on meds based on BP Atrial fibrillation, paroxysmal HR controlled On Eliquis and carvedilol Hyperlipidemia continue statin CAD continue BB, statin, imdur Mental health Continue zoloft, wellbutrin JOSE ALEJANDRO not on cpap DVT prophylaxis - Luis Full code Requires ongoing inpatient stay for process of guardianship with no safe disposition Quality Stroke Does the patient have a stroke diagnosis?: No VTE Prior VTE?: No VTE Risk Level:: Medical - moderate - high VTE Device Contraindication: Treatment Not Indicated VTE Drug Contraindication: N/A - Med Ordered
[2023-10-01] MEDS: carvediloL 12.5 MG TABLET PO (20:26)
[2023-10-02] VITALS (11 sets, daily range): BP systolic 132–156; BP diastolic 77–88; PULSE 56–66; RESP 12–18; TEMP 36–36.4; O2SAT 96
[2023-10-02] MEDS: oxyCODONE HCl Immed Release 15 MG TABLET PO ×5 (00:39→19:50)
[2023-10-02] MEDS: Omeprazole 20 MG CAPSULE.DR PO (05:26)
[2023-10-02 06:31] LABS: Anion Gap 14 (12-20); Blood Urea Nitrogen 36 mg/dL (9-16); Carbon Dioxide 22 mmol/L (22-29); Chloride 106 mmol/L (96-108); Creatinine Clr Calc Pharmacy 44.8; Estimated Glomerular Filt Rate 46; Glucose Random 83 mg/dL (60-115); Potassium 3.8 mmol/L (3.3-5.1); Sodium 138 mmol/L (135-145)
[2023-10-02] MEDS: buPROPion HCl XL 150 MG TAB.ER.24H PO (07:49)
[2023-10-02] MEDS: Atorvastatin Calcium 40 MG TABLET PO (07:49)
[2023-10-02] MEDS: Docusate Sodium 100 MG CAPSULE PO ×2 (07:49→19:48)
[2023-10-02] MEDS: Cyanocobalamin (Vitamin B-12) 1,000 MCG TABLET 1000 MCG PO (07:49)
[2023-10-02] MEDS: allopurinoL 100 MG TABLET PO (07:49)
[2023-10-02] MEDS: amLODIPine Besylate 5 MG TABLET PO (07:49)
[2023-10-02] MEDS: Ferrous Sulfate 324 MG TABLET.DR PO ×2 (07:49→15:52)
[2023-10-02] MEDS: Isosorbide Mononitrate 60 MG TAB.ER.24H PO (07:49)
[2023-10-02] MEDS: Apixaban 5 MG TABLET PO ×2 (07:49→19:48)
[2023-10-02] MEDS: Cholecalciferol (Vitamin D3) 25 MCG TABLET 50 MCG PO (07:50)
[2023-10-02] MEDS: Sertraline HCL 100 MG TABLET PO (07:50)
[2023-10-02] MEDS: Sucralfate 1 GM TABLET PO ×4 (07:50→19:49)
[2023-10-02] MEDS: polyethylene glycoL 3350 17 GM POWD.PACK PO (07:50)
[2023-10-02] MEDS: Clopidogrel Bisulfate 75 MG TABLET PO (07:50)
[2023-10-02] MEDS: hydrALAZINE HCl 50 MG TABLET PO ×3 (07:50→19:49)
--- NOTE | 2023-10-02 11:55 | P.PNIM_ITS ---
Subjective Subjective Date of Service: 10/02/23 Interval History: Seen and examined this morning Follow-up for placement No overnight events Review of Systems Review of Systems: Yes all other systems are reviewed and are negative Constitutional Constitutional: Denies chills and Denies fever(s) Cardiovascular Cardiovascular: Denies chest pain Physical Exam 2 Vital Signs: Vital Signs: Last Vital Signs Temp 97.4 F 10/02/23 07:45 Pulse 56 10/02/23 07:50 Resp 12 10/02/23 07:45 BP 141/87 H 10/02/23 07:50 Pulse Ox 96 10/02/23 07:45 O2 Del Method Room Air 10/02/23 07:45 O2 Flow Rate 2 09/18/23 14:35 BMI result Body Mass Index 20.5 Const: General: cooperative, comfortable, no acute distress, alert and awake Nutritional Appearance: average body habitus Orientation/consciousness: o riented to person, oriented to place and patient oriented x3 Resp: Effort & Inspection: normal respiratory effort, able to speak in complete sentences, no respiratory distress and no use of accessory muscles Cardio: Rate: regular rate GI: Inspection: No distended Palpation (GI): Soft to palpation and nontender Neuro: General: oriented to person, oriented to place, patient oriented x3, moves all extremities and CN's II-XI intact bilaterally Extrem: General: Yes no pedal edema Objective Data Active Medications Acetaminophen (Acetaminophen 325 Mg Tablet) 650 mg PO Q6H PRN PRN Reason: Pain, Mild (Pain Scale 1-3) Last Admin: 09/29/23 14:57 Dose: 650 mg Documented By: CASEY Allopurinol (Allopurinol 100 Mg Tablet) 100 mg PO DAILY [facility] Last Admin: 10/02/23 07:49 Dose: 100 mg Documented By: TJ Amlodipine Besylate (Amlodipine Besylate 5 Mg Tablet) 5 mg PO DAILY [facility]; Protocol Last Admin: 10/02/23 07:49 Dose: 5 mg Documented By: TJ Apixaban (Apixaban 5 Mg Tablet) 5 mg PO BID [facility] Last Admin: 10/02/23 07:49 Dose: 5 mg Documented By: TJ Atorvastatin Calcium (Atorvastatin Calcium 40 Mg Tablet) 40 mg PO DAILY [facility] Last Admin: 10/02/23 07:49 Dose: 40 mg Documented By: TJ Benzonatate (Benzonatate 100 Mg Capsule) 200 mg PO TID PRN PRN Reason: Cough Last Admin: 09/23/23 21:10 Dose: 200 mg Documented By: CHEMA Bupropion HCl (Bupropion Hcl Xl 150 Mg Tab.Er.24h) 150 mg PO DAILY [facility] Last Admin: 10/02/23 07:49 Dose: 150 mg Documented By: TJ Carvedilol (Carvedilol 12.5 Mg Tablet) 12.5 mg PO BID [facility]; Protocol Last Admin: 10/02/23 07:50 Dose: Not Given Documented By: TJ Non-Admin Reason: Decreased Heart Rate Clonidine HCl (Clonidine Hcl 0.1 Mg Tablet) 0.1 mg PO BEDTIME [facility]; Protocol Last Admin: 10/01/23 20:26 Dose: 0.1 mg Documented By: SHAI Clopidogrel Bisulfate (Clopidogrel Bisulfate 75 Mg Tablet) 75 mg PO DAILY [facility] Last Admin: 10/02/23 07:50 Dose: 75 mg Documented By: TJ Cyanocobalamin (Cyanocobalamin (Vitamin B-12) 1,000 Mcg Tablet) 1,000 mcg PO DAILY [facility] Last Admin: 10/02/23 07:49 Dose: 1,000 mcg Documented By: TJ Docusate Sodium (Docusate Sodium 100 Mg Capsule) 100 mg PO BID [facility] Last Admin: 10/02/23 07:49 Dose: 100 mg Documented By: TJ Ferrous Sulfate (Ferrous Sulfate 324 Mg Tablet.Dr) 324 mg PO BIDWM [facility] Last Admin: 10/02/23 07:49 Dose: 324 mg Documented By: TJ Hydralazine HCl (Hydralazine Hcl 50 Mg Tablet) 50 mg PO TID [facility]; Protocol Last Admin: 10/02/23 07:50 Dose: 50 mg Documented By: TJ Isosorbide Mononitrate (Isosorbide Mononitrate 60 Mg Tab.Er.24h) 60 mg PO DAILY [facility]; Protocol Last Admin: 10/02/23 07:49 Dose: 60 mg Documented By: TJ Lidocaine (Lidocaine 4 % Patch Adh..Patch) 2 patch TRANSDERMA DAILY [facility]; Protocol Last Admin: 10/02/23 07:50 Dose: Not Given Documented By: TJ Non-Admin Reason: Patient Refused Melatonin (Melatonin 3 Mg Tablet) 6 mg PO BEDTIME PRN PRN Reason: Insomnia Last Admin: 09/30/23 20:44 Dose: 6 mg Documented By: CHEMA Omeprazole (Omeprazole 20 Mg Capsule.Dr) 20 mg PO DAILY@0630 [facility] Last Admin: 10/02/23 05:26 Dose: 20 mg Documented By: LANIE Ondansetron HCl (Ondansetron Odt 4 Mg Tab.Rapdis) 4 mg TRANSLINGU Q8H PRN PRN Reason: Nausea And Vomiting Last Admin: 09/06/23 23:09 Dose: 4 mg Documented By: EFRAIN Comments: Early admin ok per . Ondansetron HCl (Ondansetron Hcl 4 Mg/2 Ml Vial) 4 mg IVPUSH Q8H PRN PRN Reason: Nausea and Vomiting Last Admin: 09/20/23 11:55 Dose: 4 mg Documented By: ANEESH Oxycodone HCl (Oxycodone Hcl Immed Release 15 Mg Tablet) 15 mg PO Q4H PRN PRN Reason: severe pain Last Admin: 10/02/23 09:24 Dose: 15 mg Documented By: TJ Polyethylene Glycol (Polyethylene Glycol 3350 17 Gm Powd.Pack) 17 gm PO DAILY [facility] Last Admin: 10/02/23 07:50 Dose: 17 gm Documented By: TJ Quetiapine Fumarate (Quetiapine Fumarate 25 Mg Tablet) 12.5 mg PO DAILY@1700 [facility] Last Admin: 10/01/23 16:22 Dose: 12.5 mg Documented By: SHAI Quetiapine Fumarate (Quetiapine Fumarate 25 Mg Tablet) 25 mg PO BID PRN PRN Reason: psychosis Last Admin: 09/30/23 20:43 Dose: 25 mg Documented By: CHEMA Sertraline HCl (Sertraline Hcl 100 Mg Tablet) 100 mg PO DAILY [facility] Last Admin: 10/02/23 07:50 Dose: 100 mg Documented By: TJ Sucralfate (Sucralfate 1 Gm Tablet) 1 gm PO QIDACHS [facility] Last Admin: 10/02/23 11:41 Dose: 1 gm Documented By: TJ Vitamin D (Cholecalciferol (Vitamin D3) 25 Mcg Tablet) 50 mcg PO DAILY [facility] Last Admin: 10/02/23 07:50 Dose: 50 mcg Documented By: TJ Labs 09/30/23 07:24 10/02/23 05:53 Labs: Laboratory Results - last 24 hr 10/02/23 05:53 Hold Purple Top SEE NOTE Anion Gap 14 Estim Creat Clear Calc 44.8 Estimated GFR 46 Random Glucose 83 Calcium 9.0 Assessment and Plan (1) Cognitive impairment: Status: Acute Plan 68-year-old man admitted with weakness, failure to thrive, FEDERICO. Found in his home covered in feces and urine. FEDERICO on CKD stage 3. Creatinine trending down renal function up and down off and on Lasix, now on hold aldactone stopped nephrology consultation>check serologies (MIGUEL pending), urine studies wnl, continue to hold diuretics Failure to thrive Physical therapy recommended long-term care patient does not have capacity to make medical decisions, healthcare proxy has been invoked Guardianship in process>hearing September 26, now working on [employer] application psych following as needed continue seroquel to prevent sundowning and prn for agitation Pneumonia, possible viral. Resolved Chest CT showing diffuse ground-glass airspace opacity in the left upper lobe adjacent to the major fissure. RPP + for parainfluenza no sepsis Completed course of empiric ceftriaxone and doxycycline blood cultures negative to date Hemoptysis. Resolved Eliquis held for 7 days Eliquis resumed 5/10 Hyperkalemia. Resolved d/c potassium replacement d/c aldactone N/V/Abd pain. Resolved KUB 5/1 negative for obstructive but with stool burden bowel regimen given chronic narcotic use and iron supplementation. Chronic pain will continue home oxycodone 15 mg Q4hrs PCP said that they were weaning him down and he was currently at 90mg a day lidocaine patch to knees as needed encourage oob, discussed with nursing Normocytic anemia H/H stable,stool occult negative iron studies with low iron, normal TIBC, ferritin on low side continue iron supplementation. continue bowel regimen H/H stable pancytopenia No baseline for comparison US with no evidence of liver disease hematology consult pending - further work up pending improving ?due to recent viral illness Hypertension Continue amlodipine, hydralazine, coreg, clonidine (wean clonidine due to low HR) consider further reduction on meds based on BP Atrial fibrillation, paroxysmal HR controlled On Eliquis and carvedilol Hyperlipidemia continue statin CAD continue BB, statin, imdur Mental health Continue zoloft, wellbutrin JOSE ALEJANDRO not on cpap DVT prophylaxis - Eliquis Full code Requires ongoing inpatient stay for process of guardianship and placement Quality Stroke Does the patient have a stroke diagnosis?: No VTE Prior VTE?: No VTE Risk Level:: Medical - moderate - high VTE Device Contraindication: Treatment Not Indicated VTE Drug Contraindication: N/A - Med Ordered
[2023-10-02] MEDS: QUEtiapine Fumarate 25 MG TABLET 12.5 MG PO (15:52)
[2023-10-02] MEDS: carvediloL 12.5 MG TABLET PO (19:48)
[2023-10-02] MEDS: cloNIDine HCL 0.1 MG TABLET PO (19:49)
[2023-10-02] MEDS: Melatonin 3 MG TABLET 6 MG PO (21:08)
[2023-10-03] MEDS: oxyCODONE HCl Immed Release 15 MG TABLET PO ×5 (02:32→20:55)
[2023-10-03 02:35] VITALS: BP 137/80; PULSE 56; RESP 16; TEMP 36.4; O2SAT 96
[2023-10-03] MEDS: Sucralfate 1 GM TABLET PO ×4 (06:29→20:55)
[2023-10-03] MEDS: Omeprazole 20 MG CAPSULE.DR PO (06:29)
[2023-10-03 07:42] VITALS: BP 161/81; PULSE 64; RESP 18; TEMP 36.9; O2SAT 95
[2023-10-03 08:50] VITALS: BP 161/81
[2023-10-03] MEDS: allopurinoL 100 MG TABLET PO (08:50)
[2023-10-03] MEDS: Sertraline HCL 100 MG TABLET PO (08:50)
[2023-10-03] MEDS: buPROPion HCl XL 150 MG TAB.ER.24H PO (08:50)
[2023-10-03] MEDS: Apixaban 5 MG TABLET PO ×2 (08:50→20:55)
[2023-10-03] MEDS: hydrALAZINE HCl 50 MG TABLET PO ×3 (08:50→20:55)
[2023-10-03] MEDS: Docusate Sodium 100 MG CAPSULE PO ×2 (08:50→20:55)
[2023-10-03] MEDS: Clopidogrel Bisulfate 75 MG TABLET PO (08:50)
[2023-10-03 08:51] VITALS: BP 161/81; PULSE 64
[2023-10-03] MEDS: Cyanocobalamin (Vitamin B-12) 1,000 MCG TABLET 1000 MCG PO (08:51)
[2023-10-03] MEDS: Cholecalciferol (Vitamin D3) 25 MCG TABLET 50 MCG PO (08:51)
[2023-10-03] MEDS: Isosorbide Mononitrate 60 MG TAB.ER.24H PO (08:51)
[2023-10-03] MEDS: amLODIPine Besylate 5 MG TABLET PO (08:51)
[2023-10-03] MEDS: Ferrous Sulfate 324 MG TABLET.DR PO ×2 (08:51→16:03)
[2023-10-03] MEDS: Atorvastatin Calcium 40 MG TABLET PO (08:51)
[2023-10-03] MEDS: carvediloL 12.5 MG TABLET PO ×2 (08:51→20:55)
[2023-10-03] MEDS: polyethylene glycoL 3350 17 GM POWD.PACK PO (08:52)
--- NOTE | 2023-10-03 10:28 | P.PNIM_ITS ---
Subjective Subjective Date of Service: 10/03/23 Interval History: Seen and examined this morning Follow-up for placement No overnight events Review of Systems Review of Systems: Yes all other systems are reviewed and are negative Constitutional Constitutional: Denies chills and Denies fever(s) Cardiovascular Cardiovascular: Denies chest pain Physical Exam 2 Vital Signs: Vital Signs: Last Vital Signs Temp 98.4 F 10/03/23 07:42 Pulse 64 10/03/23 08:51 Resp 18 10/03/23 07:42 BP 161/81 H 10/03/23 08:51 Pulse Ox 95 10/03/23 07:42 O2 Del Method Room Air 10/03/23 07:42 O2 Flow Rate 2 09/18/23 14:35 BMI result Body Mass Index 20.5 alert and confused LS normal expansion Abd soft Objective Data Active Medications Acetaminophen (Acetaminophen 325 Mg Tablet) 650 mg PO Q6H PRN PRN Reason: Pain, Mild (Pain Scale 1-3) Last Admin: 09/29/23 14:57 Dose: 650 mg Documented By: CASEY Allopurinol (Allopurinol 100 Mg Tablet) 100 mg PO DAILY [facility] Last Admin: 10/03/23 08:50 Dose: 100 mg Documented By: ANEESH Amlodipine Besylate (Amlodipine Besylate 5 Mg Tablet) 5 mg PO DAILY [facility]; Protocol Last Admin: 10/03/23 08:51 Dose: 5 mg Documented By: ANEESH Apixaban (Apixaban 5 Mg Tablet) 5 mg PO BID [facility] Last Admin: 10/03/23 08:50 Dose: 5 mg Documented By: ANEESH Atorvastatin Calcium (Atorvastatin Calcium 40 Mg Tablet) 40 mg PO DAILY [facility] Last Admin: 10/03/23 08:51 Dose: 40 mg Documented By: ANEESH Benzonatate (Benzonatate 100 Mg Capsule) 200 mg PO TID PRN PRN Reason: Cough Last Admin: 09/23/23 21:10 Dose: 200 mg Documented By: CHEMA Bupropion HCl (Bupropion Hcl Xl 150 Mg Tab.Er.24h) 150 mg PO DAILY [facility] Last Admin: 10/03/23 08:50 Dose: 150 mg Documented By: ANEESH Carvedilol (Carvedilol 12.5 Mg Tablet) 12.5 mg PO BID [facility]; Protocol Last Admin: 10/03/23 08:51 Dose: 12.5 mg Documented By: ANEESH Clonidine HCl (Clonidine Hcl 0.1 Mg Tablet) 0.1 mg PO BEDTIME [facility]; Protocol Last Admin: 10/02/23 19:49 Dose: 0.1 mg Documented By: SHAI Clopidogrel Bisulfate (Clopidogrel Bisulfate 75 Mg Tablet) 75 mg PO DAILY [facility] Last Admin: 10/03/23 08:50 Dose: 75 mg Documented By: ANEESH Cyanocobalamin (Cyanocobalamin (Vitamin B-12) 1,000 Mcg Tablet) 1,000 mcg PO DAILY [facility] Last Admin: 10/03/23 08:51 Dose: 1,000 mcg Documented By: ANEESH Docusate Sodium (Docusate Sodium 100 Mg Capsule) 100 mg PO BID [facility] Last Admin: 10/03/23 08:50 Dose: 100 mg Documented By: ANEESH Ferrous Sulfate (Ferrous Sulfate 324 Mg Tablet.) 324 mg PO BIDWM [facility] Last Admin: 10/03/23 08:51 Dose: 324 mg Documented By: ANEESH Hydralazine HCl (Hydralazine Hcl 50 Mg Tablet) 50 mg PO TID [facility]; Protocol Last Admin: 10/03/23 08:50 Dose: 50 mg Documented By: ANEESH Isosorbide Mononitrate (Isosorbide Mononitrate 60 Mg Tab.Er.24h) 60 mg PO DAILY [facility]; Protocol Last Admin: 10/03/23 08:51 Dose: 60 mg Documented By: ANEESH Lidocaine (Lidocaine 4 % Patch Adh..Patch) 2 patch TRANSDERMA DAILY [facility]; Protocol Last Admin: 10/03/23 08:51 Dose: Not Given Documented By: ANEESH Non-Admin Reason: Patient Refused Melatonin (Melatonin 3 Mg Tablet) 6 mg PO BEDTIME PRN PRN Reason: Insomnia Last Admin: 10/02/23 21:08 Dose: 6 mg Documented By: SHAI Omeprazole (Omeprazole 20 Mg Capsule.) 20 mg PO DAILY@0630 [facility] Last Admin: 10/03/23 06:29 Dose: 20 mg Documented By: CASIE Ondansetron HCl (Ondansetron Odt 4 Mg Tab.Rapdis) 4 mg TRANSLINGU Q8H PRN PRN Reason: Nausea And Vomiting Last Admin: 09/06/23 23:09 Dose: 4 mg Documented By: EFRAIN Comments: Early admin ok per . Ondansetron HCl (Ondansetron Hcl 4 Mg/2 Ml Vial) 4 mg IVPUSH Q8H PRN PRN Reason: Nausea and Vomiting Last Admin: 09/20/23 11:55 Dose: 4 mg Documented By: ANEESH Oxycodone HCl (Oxycodone Hcl Immed Release 15 Mg Tablet) 15 mg PO Q4H PRN PRN Reason: severe pain Last Admin: 10/03/23 08:50 Dose: 15 mg Documented By: ANEESH Polyethylene Glycol (Polyethylene Glycol 3350 17 Gm Powd.Pack) 17 gm PO DAILY [facility] Last Admin: 10/03/23 08:52 Dose: 17 gm Documented By: ANEESH Quetiapine Fumarate (Quetiapine Fumarate 25 Mg Tablet) 12.5 mg PO DAILY@1700 [facility] Last Admin: 10/02/23 15:52 Dose: 12.5 mg Documented By: SHAI Quetiapine Fumarate (Quetiapine Fumarate 25 Mg Tablet) 25 mg PO BID PRN PRN Reason: psychosis Last Admin: 09/30/23 20:43 Dose: 25 mg Documented By: CHEMA Sertraline HCl (Sertraline Hcl 100 Mg Tablet) 100 mg PO DAILY [facility] Last Admin: 10/03/23 08:50 Dose: 100 mg Documented By: ANEESH Sucralfate (Sucralfate 1 Gm Tablet) 1 gm PO QIDACHS [facility] Last Admin: 10/03/23 06:29 Dose: 1 gm Documented By: CASIE Vitamin D (Cholecalciferol (Vitamin D3) 25 Mcg Tablet) 50 mcg PO DAILY [facility] Last Admin: 10/03/23 08:51 Dose: 50 mcg Documented By: ANEESH Labs 09/30/23 07:24 10/02/23 05:53 Assessment and Plan (1) Cognitive impairment: Status: Acute Plan 68-year-old man admitted with weakness, failure to thrive, FEDERICO. Found in his home covered in feces and urine. FEDERICO on CKD stage 3. Creatinine trending down renal function up and down off and on Lasix, now on hold aldactone stopped nephrology following>check serologies (MIGUEL pending), urine studies wnl, continue to hold diuretics Failure to thrive Physical therapy recommended long-term care patient does not have capacity to make medical decisions, healthcare proxy has been invoked Guardianship in process>hearing September 26, now working on [employer] application psych following as needed continue seroquel to prevent sundowning and prn for agitation Pneumonia, possible viral. Resolved Chest CT showing diffuse ground-glass airspace opacity in the left upper lobe adjacent to the major fissure. RPP + for parainfluenza no sepsis Completed course of empiric ceftriaxone and doxycycline blood cultures negative to date Hemoptysis. Resolved Eliquis held for 7 days Eliquis resumed / Hyperkalemia. Resolved d/c potassium replacement d/c aldactone N/V/Abd pain. Resolved KUB 09/13 negative for obstructive but with stool burden bowel regimen given chronic narcotic use and iron supplementation. Chronic pain will continue home oxycodone 15 mg Q4hrs PCP said that they were weaning him down and he was currently at 90mg a day lidocaine patch to knees as needed encourage oob, discussed with nursing Normocytic anemia H/H stable,stool occult negative iron studies with low iron, normal TIBC, ferritin on low side continue iron supplementation. continue bowel regimen H/H stable pancytopenia No baseline for comparison US with no evidence of liver disease hematology consult pending - further work up pending improving ?due to recent viral illness Hypertension Continue amlodipine, hydralazine, coreg, clonidine (wean clonidine due to low HR) consider further reduction on meds based on BP Atrial fibrillation, paroxysmal HR controlled On Eliquis and carvedilol Hyperlipidemia continue statin CAD continue BB, statin, imdur Mental health Continue zoloft, wellbutrin JOSE ALEJANDRO not on cpap DVT prophylaxis - Luis Attending Dr. Urbina Full code Requires ongoing inpatient stay for process of guardianship and placement Quality Stroke Does the patient have a stroke diagnosis?: No VTE Prior VTE?: No VTE Risk Level:: Medical - moderate - high VTE Device Contraindication: Treatment Not Indicated VTE Drug Contraindication: N/A - Med Ordered
--- NOTE | 2023-10-03 12:56 | P.PNNP_ITS ---
Subjective Subjective Date of Service: 10/03/23 Interval history: Events noted; All recent data reviewed Physical Exam 2 Vital Signs: Vital Signs: Last Vital Signs Temp 98.4 F 10/03/23 07:42 Pulse 64 10/03/23 08:51 Resp 18 10/03/23 07:42 BP 161/81 H 10/03/23 08:51 Pulse Ox 95 10/03/23 07:42 O2 Del Method Room Air 10/03/23 07:42 O2 Flow Rate 2 09/18/23 14:35 BMI result Body Mass Index 20.5 Const: General: no acute distress Eyes: EOM: EOMs intact bilaterally Resp: Auscultation: diminished lung sounds Cardio: Rate: regular rate GI: Palpation (GI): Soft to palpation Neuro: General: moves all extremities Objective Data Labs 09/30/23 07:24 10/02/23 05:53 Microbiology Microbiology Results: Microbiology 09/17/23 08:14 Blood - Venous Blood Culture - Final No growth after 5 days. 09/17/23 08:09 Blood - Venous Blood Culture - Final No growth after 5 days. 09/07/23 08:15 Blood - Venous Blood Culture - Final No growth after 5 days. 09/07/23 08:14 Blood - Venous Blood Culture - Final No growth after 5 days. Procedures Date of Service Date of Service: 10/03/23 Assessment & Plan Assessment and plan (1) FEDERICO (acute kidney injury): Status: Acute Plan FEDERICO due to tubular injury Repeat U/A bland; Serum creatinine stable Continue current supportive care for now Needs F/U [facility] for F/U after D/C Progress Note: Quality Stroke Does the patient have a stroke diagnosis?: No
[2023-10-03 15:34] VITALS: BP 130/83; PULSE 59; RESP 12; TEMP 36.1; O2SAT 97
[2023-10-03] MEDS: QUEtiapine Fumarate 25 MG TABLET 12.5 MG PO (16:03)
--- NOTE | 2023-10-03 16:10 | MHC.CM.PN ---
DP LTC via BLS. Bed search continues [facility] is looking into insurance. Documents requested have been sent.
[2023-10-03 19:30] VITALS: BP 147/80; PULSE 56; RESP 18; TEMP 36.6; O2SAT 96
[2023-10-03] MEDS: cloNIDine HCL 0.1 MG TABLET PO (20:55)
[2023-10-04] VITALS (11 sets, daily range): BP systolic 137–161; BP diastolic 67–95; PULSE 54–73; RESP 12–16; TEMP 36.2–36.5; O2SAT 94–96
[2023-10-04] MEDS: oxyCODONE HCl Immed Release 15 MG TABLET PO ×5 (01:19→20:59)
[2023-10-04] MEDS: Omeprazole 20 MG CAPSULE.DR PO (06:18)
[2023-10-04] MEDS: Sucralfate 1 GM TABLET PO ×4 (08:49→20:59)
--- NOTE | 2023-10-04 08:50 | HO.PM.IMPN ---
Subjective Subjective Date of Service: 10/04/23 Interval History: Seen and examined this morning Follow-up for placement No overnight events Review of Systems Review of Systems: Yes all other systems are reviewed and are negative Constitutional Constitutional: Denies chills and Denies fever(s) Cardiovascular Cardiovascular: Denies chest pain Physical Exam Vital Signs: Vital Signs: Last Vital Signs Temp 97.1 F 10/04/23 07:16 Pulse 64 10/04/23 07:16 Resp 12 10/04/23 07:16 BP 161/95 H 10/04/23 07:16 Pulse Ox 96 10/04/23 07:16 O2 Del Method Room Air 10/04/23 07:16 O2 Flow Rate 2 09/18/23 14:35 BMI result Body Mass Index 20.5 alert and confused abd soft Lungs normal expansion Objective Data Active Medications Acetaminophen (Acetaminophen 325 Mg Tablet) 650 mg PO Q6H PRN PRN Reason: Pain, Mild (Pain Scale 1-3) Last Admin: 09/29/23 14:57 Dose: 650 mg Documented By: CASEY Allopurinol (Allopurinol 100 Mg Tablet) 100 mg PO DAILY [facility] Last Admin: 10/03/23 08:50 Dose: 100 mg Documented By: ANEESH Amlodipine Besylate (Amlodipine Besylate 5 Mg Tablet) 5 mg PO DAILY [facility]; Protocol Last Admin: 10/03/23 08:51 Dose: 5 mg Documented By: ANEESH Apixaban (Apixaban 5 Mg Tablet) 5 mg PO BID [facility] Last Admin: 10/03/23 20:55 Dose: 5 mg Documented By: JANET Atorvastatin Calcium (Atorvastatin Calcium 40 Mg Tablet) 40 mg PO DAILY [facility] Last Admin: 10/03/23 08:51 Dose: 40 mg Documented By: ANEESH Benzonatate (Benzonatate 100 Mg Capsule) 200 mg PO TID PRN PRN Reason: Cough Last Admin: 09/23/23 21:10 Dose: 200 mg Documented By: CHEMA Bupropion HCl (Bupropion Hcl Xl 150 Mg Tab.Er.24h) 150 mg PO DAILY [facility] Last Admin: 10/03/23 08:50 Dose: 150 mg Documented By: ANEESH Carvedilol (Carvedilol 12.5 Mg Tablet) 12.5 mg PO BID [facility]; Protocol Last Admin: 10/03/23 20:55 Dose: 12.5 mg Documented By: JANET Clonidine HCl (Clonidine Hcl 0.1 Mg Tablet) 0.1 mg PO BEDTIME [facility]; Protocol Last Admin: 10/03/23 20:55 Dose: 0.1 mg Documented By: JANET Clopidogrel Bisulfate (Clopidogrel Bisulfate 75 Mg Tablet) 75 mg PO DAILY [facility] Last Admin: 10/03/23 08:50 Dose: 75 mg Documented By: ANEESH Cyanocobalamin (Cyanocobalamin (Vitamin B-12) 1,000 Mcg Tablet) 1,000 mcg PO DAILY [facility] Last Admin: 10/03/23 08:51 Dose: 1,000 mcg Documented By: ANEESH Docusate Sodium (Docusate Sodium 100 Mg Capsule) 100 mg PO BID [facility] Last Admin: 10/03/23 20:55 Dose: 100 mg Documented By: JANET Ferrous Sulfate (Ferrous Sulfate 324 Mg Tablet.) 324 mg PO BIDWM [facility] Last Admin: 10/03/23 16:03 Dose: 324 mg Documented By: JANET Hydralazine HCl (Hydralazine Hcl 50 Mg Tablet) 50 mg PO TID [facility]; Protocol Last Admin: 10/03/23 20:55 Dose: 50 mg Documented By: JANET Isosorbide Mononitrate (Isosorbide Mononitrate 60 Mg Tab.Er.24h) 60 mg PO DAILY [facility]; Protocol Last Admin: 10/03/23 08:51 Dose: 60 mg Documented By: ANEESH Lidocaine (Lidocaine 4 % Patch Adh..Patch) 2 patch TRANSDERMA DAILY [facility]; Protocol Last Admin: 10/03/23 08:51 Dose: Not Given Documented By: ANEESH Non-Admin Reason: Patient Refused Melatonin (Melatonin 3 Mg Tablet) 6 mg PO BEDTIME PRN PRN Reason: Insomnia Last Admin: 10/02/23 21:08 Dose: 6 mg Documented By: SHAI Omeprazole (Omeprazole 20 Mg Capsule.) 20 mg PO DAILY@0630 [facility] Last Admin: 10/04/23 06:18 Dose: 20 mg Documented By: LANIE Ondansetron HCl (Ondansetron Odt 4 Mg Tab.Rapdis) 4 mg TRANSLINGU Q8H PRN PRN Reason: Nausea And Vomiting Last Admin: 09/06/23 23:09 Dose: 4 mg Documented By: EFRAIN Comments: Early admin ok per . Ondansetron HCl (Ondansetron Hcl 4 Mg/2 Ml Vial) 4 mg IVPUSH Q8H PRN PRN Reason: Nausea and Vomiting Last Admin: 09/20/23 11:55 Dose: 4 mg Documented By: ANEESH Oxycodone HCl (Oxycodone Hcl Immed Release 15 Mg Tablet) 15 mg PO Q4H PRN PRN Reason: severe pain Last Admin: 10/04/23 06:18 Dose: 15 mg Documented By: LANIE Polyethylene Glycol (Polyethylene Glycol 3350 17 Gm Powd.Pack) 17 gm PO DAILY [facility] Last Admin: 10/03/23 08:52 Dose: 17 gm Documented By: ANEESH Quetiapine Fumarate (Quetiapine Fumarate 25 Mg Tablet) 12.5 mg PO DAILY@1700 [facility] Last Admin: 10/03/23 16:03 Dose: 12.5 mg Documented By: JANET Quetiapine Fumarate (Quetiapine Fumarate 25 Mg Tablet) 25 mg PO BID PRN PRN Reason: psychosis Last Admin: 09/30/23 20:43 Dose: 25 mg Documented By: CHEMA Sertraline HCl (Sertraline Hcl 100 Mg Tablet) 100 mg PO DAILY [facility] Last Admin: 10/03/23 08:50 Dose: 100 mg Documented By: ANEESH Sucralfate (Sucralfate 1 Gm Tablet) 1 gm PO QIDACHS [facility] Last Admin: 10/04/23 08:49 Dose: 1 gm Documented By: EDWARDO Vitamin D (Cholecalciferol (Vitamin D3) 25 Mcg Tablet) 50 mcg PO DAILY [facility] Last Admin: 10/03/23 08:51 Dose: 50 mcg Documented By: ANEESH Labs 09/30/23 07:24 10/02/23 05:53 Assessment and Plan (1) Cognitive impairment: Status: Acute Plan 68-year-old man admitted with weakness, failure to thrive, FEDERICO. Found in his home covered in feces and urine. FEDERICO on CKD stage 3. Creatinine trending down renal function up and down off and on Lasix, now on hold aldactone stopped nephrology following>check serologies (MIGUEL pending), urine studies wnl, continue to hold diuretics Failure to thrive Physical therapy recommended long-term care patient does not have capacity to make medical decisions, healthcare proxy has been invoked Guardianship in process>hearing September 26, now working on [employer] application psych following as needed continue seroquel to prevent sundowning and prn for agitation Pneumonia, possible viral. Resolved Chest CT showing diffuse ground-glass airspace opacity in the left upper lobe adjacent to the major fissure. RPP + for parainfluenza no sepsis Completed course of empiric ceftriaxone and doxycycline blood cultures negative to date Hemoptysis. Resolved Eliquis held for 7 days Eliquis resumed 09/22 Hyperkalemia. Resolved d/c potassium replacement d/c aldactone N/V/Abd pain. Resolved KUB 09/13 negative for obstructive but with stool burden bowel regimen given chronic narcotic use and iron supplementation. Chronic pain will continue home oxycodone 15 mg Q4hrs PCP said that they were weaning him down and he was currently at 90mg a day lidocaine patch to knees as needed encourage oob, discussed with nursing Normocytic anemia H/H stable,stool occult negative iron studies with low iron, normal TIBC, ferritin on low side continue iron supplementation. continue bowel regimen H/H stable pancytopenia No baseline for comparison US with no evidence of liver disease hematology consult pending - further work up pending improving ?due to recent viral illness Hypertension Continue amlodipine, hydralazine, coreg, clonidine (wean clonidine due to low HR) consider further reduction on meds based on BP Atrial fibrillation, paroxysmal HR controlled On Eliquis and carvedilol Hyperlipidemia continue statin CAD continue BB, statin, imdur Mental health Continue zoloft, wellbutrin JOSE ALEJANDRO not on cpap DVT prophylaxis - Luis Attending Dr. Urbina Full code Requires ongoing inpatient stay for process of guardianship and placement Quality Stroke Does the patient have a stroke diagnosis?: No VTE Prior VTE?: No VTE Risk Level:: Medical - moderate - high VTE Device Contraindication: Treatment Not Indicated VTE Drug Contraindication: N/A - Med Ordered
[2023-10-04] MEDS: allopurinoL 100 MG TABLET PO (09:25)
[2023-10-04] MEDS: Cholecalciferol (Vitamin D3) 25 MCG TABLET 50 MCG PO (09:25)
[2023-10-04] MEDS: Atorvastatin Calcium 40 MG TABLET PO (09:25)
[2023-10-04] MEDS: carvediloL 12.5 MG TABLET PO ×2 (09:25→21:00)
[2023-10-04] MEDS: Ferrous Sulfate 324 MG TABLET.DR PO ×2 (09:25→17:01)
[2023-10-04] MEDS: Docusate Sodium 100 MG CAPSULE PO ×2 (09:25→20:59)
[2023-10-04] MEDS: Clopidogrel Bisulfate 75 MG TABLET PO (09:25)
[2023-10-04] MEDS: amLODIPine Besylate 5 MG TABLET PO (09:25)
[2023-10-04] MEDS: Sertraline HCL 100 MG TABLET PO (09:25)
[2023-10-04] MEDS: buPROPion HCl XL 150 MG TAB.ER.24H PO (09:26)
[2023-10-04] MEDS: Cyanocobalamin (Vitamin B-12) 1,000 MCG TABLET 1000 MCG PO (09:26)
[2023-10-04] MEDS: hydrALAZINE HCl 50 MG TABLET PO ×3 (09:26→20:59)
[2023-10-04] MEDS: Apixaban 5 MG TABLET PO ×2 (09:26→20:59)
[2023-10-04] MEDS: Isosorbide Mononitrate 60 MG TAB.ER.24H PO (09:26)
--- NOTE | 2023-10-04 09:55 | P.PNNP_ITS ---
Subjective Subjective Date of Service: 10/04/23 Interval history: Events noted. Awaiting placement Physical Exam 2 Vital Signs: Vital Signs: Last Vital Signs Temp 97.1 F 10/04/23 07:16 Pulse 67 10/04/23 09:25 Resp 12 10/04/23 07:16 BP 153/84 H 10/04/23 09:26 Pulse Ox 96 10/04/23 07:16 O2 Del Method Room Air 10/04/23 07:16 O2 Flow Rate 2 09/18/23 14:35 BMI result Body Mass Index 20.5 Const: General: ill appearing Neck: Neck: Yes supple Resp: Auscultation: clear to auscultation bilaterally Cardio: Palpation: no palpable S3 Heart sounds: no rubs GI: Palpation (GI): Soft to palpation Auscultation: normal bowel sounds Neuro: Motor exam (neuro): no asterixis Objective Data Labs 09/30/23 07:24 10/02/23 05:53 Microbiology Microbiology Results: Microbiology 09/17/23 08:14 Blood - Venous Blood Culture - Final No growth after 5 days. 09/17/23 08:09 Blood - Venous Blood Culture - Final No growth after 5 days. 09/07/23 08:15 Blood - Venous Blood Culture - Final No growth after 5 days. 09/07/23 08:14 Blood - Venous Blood Culture - Final No growth after 5 days. Procedures Date of Service Date of Service: 10/04/23 Assessment & Plan Assessment and plan (1) FEDERICO (acute kidney injury): Status: Acute Plan 68 yr old man with FEDERICO h/o Anemia /Thrombocytopenia NO obstruction by abdominal sonogram UA with proteinuria No evidence of AGN / AiN Hypoperfusion could be a contributing factor Creatinine is marginally better Serology unremarkable Keep I > O Time Spent With Patient Time: Total time managing care of this patient today ____ minutes. Progress Note: Quality Stroke Does the patient have a stroke diagnosis?: No
--- NOTE | 2023-10-04 15:29 | MHC.CM.PN ---
[facility] sent a Liason, Simin Edmondson came in to meet and assess the patient. They have offered a bed once Zamorano order received. Psych plans to see pt to review meds. Trazadone may replace Seroquel. No Zamorano needed if Seroquel stopped. The MH application was sent via [employer] to [facility]. Marian Rocha has been notified of the bed offer. Contact info for Maya Patrick left via . Guardian accepts the bed. The facility has been notified. MOOK [facility] via S.
[2023-10-04] MEDS: QUEtiapine Fumarate 25 MG TABLET 12.5 MG PO (17:02)
[2023-10-04] MEDS: cloNIDine HCL 0.1 MG TABLET PO (21:03)
[2023-10-04] MEDS: Melatonin 3 MG TABLET 6 MG PO (22:59)
[2023-10-05] VITALS (11 sets, daily range): BP systolic 124–162; BP diastolic 70–94; PULSE 60–67; RESP 16–18; TEMP 36.1–36.6; O2SAT 96
[2023-10-05] MEDS: oxyCODONE HCl Immed Release 15 MG TABLET PO ×5 (02:44→19:42)
[2023-10-05] MEDS: Omeprazole 20 MG CAPSULE.DR PO (05:30)
--- NOTE | 2023-10-05 07:31 | HO.PM.IMPN ---
Subjective Subjective Date of Service: 10/05/23 Interval History: Seen and examined this morning Follow-up for placement No overnight events Review of Systems Review of Systems: Yes all other systems are reviewed and are negative Constitutional Constitutional: Denies chills and Denies fever(s) Cardiovascular Cardiovascular: Denies chest pain Physical Exam Vital Signs: Vital Signs: Last Vital Signs Temp 97 F 10/05/23 03:26 Pulse 67 10/05/23 03:26 Resp 18 10/05/23 03:44 BP 162/94 H 10/05/23 03:26 Pulse Ox 96 10/05/23 03:26 O2 Del Method Room Air 10/05/23 03:26 O2 Flow Rate 2 09/18/23 14:35 BMI result Body Mass Index 20.5 alert ad confused abd soft LSCTA Objective Data Active Medications Acetaminophen (Acetaminophen 325 Mg Tablet) 650 mg PO Q6H PRN PRN Reason: Pain, Mild (Pain Scale 1-3) Last Admin: 09/29/23 14:57 Dose: 650 mg Documented By: CASEY Allopurinol (Allopurinol 100 Mg Tablet) 100 mg PO DAILY [facility] Last Admin: 10/04/23 09:25 Dose: 100 mg Documented By: EDWARDO Amlodipine Besylate (Amlodipine Besylate 5 Mg Tablet) 5 mg PO DAILY [facility]; Protocol Last Admin: 10/04/23 09:25 Dose: 5 mg Documented By: EDWARDO Apixaban (Apixaban 5 Mg Tablet) 5 mg PO BID [facility] Last Admin: 10/04/23 20:59 Dose: 5 mg Documented By: SHAI Atorvastatin Calcium (Atorvastatin Calcium 40 Mg Tablet) 40 mg PO DAILY [facility] Last Admin: 10/04/23 09:25 Dose: 40 mg Documented By: EDWARDO Benzonatate (Benzonatate 100 Mg Capsule) 200 mg PO TID PRN PRN Reason: Cough Last Admin: 09/23/23 21:10 Dose: 200 mg Documented By: CHEMA Bupropion HCl (Bupropion Hcl Xl 150 Mg Tab.Er.24h) 150 mg PO DAILY [facility] Last Admin: 10/04/23 09:26 Dose: 150 mg Documented By: EDWARDO Carvedilol (Carvedilol 12.5 Mg Tablet) 12.5 mg PO BID [facility]; Protocol Last Admin: 10/04/23 21:00 Dose: 12.5 mg Documented By: SHAI Clonidine HCl (Clonidine Hcl 0.1 Mg Tablet) 0.1 mg PO BEDTIME [facility]; Protocol Last Admin: 10/04/23 21:03 Dose: 0.1 mg Documented By: SHAI Clopidogrel Bisulfate (Clopidogrel Bisulfate 75 Mg Tablet) 75 mg PO DAILY [facility] Last Admin: 10/04/23 09:25 Dose: 75 mg Documented By: EDWARDO Cyanocobalamin (Cyanocobalamin (Vitamin B-12) 1,000 Mcg Tablet) 1,000 mcg PO DAILY [facility] Last Admin: 10/04/23 09:26 Dose: 1,000 mcg Documented By: EDWARDO Docusate Sodium (Docusate Sodium 100 Mg Capsule) 100 mg PO BID [facility] Last Admin: 10/04/23 20:59 Dose: 100 mg Documented By: SHAI Ferrous Sulfate (Ferrous Sulfate 324 Mg Tablet.) 324 mg PO BIDWM [facility] Last Admin: 10/04/23 17:01 Dose: 324 mg Documented By: SHAI Hydralazine HCl (Hydralazine Hcl 50 Mg Tablet) 50 mg PO TID [facility]; Protocol Last Admin: 10/04/23 20:59 Dose: 50 mg Documented By: SHAI Isosorbide Mononitrate (Isosorbide Mononitrate 60 Mg Tab.Er.24h) 60 mg PO DAILY [facility]; Protocol Last Admin: 10/04/23 09:26 Dose: 60 mg Documented By: EDWARDO Lidocaine (Lidocaine 4 % Patch Adh..Patch) 2 patch TRANSDERMA DAILY [facility]; Protocol Last Admin: 10/04/23 09:31 Dose: Not Given Documented By: EDWARDO Non-Admin Reason: Patient Refused Melatonin (Melatonin 3 Mg Tablet) 6 mg PO BEDTIME PRN PRN Reason: Insomnia Last Admin: 10/04/23 22:59 Dose: 6 mg Documented By: SHAI Omeprazole (Omeprazole 20 Mg Capsule.) 20 mg PO DAILY@0630 [facility] Last Admin: 10/05/23 05:30 Dose: 20 mg Documented By: LANIE Ondansetron HCl (Ondansetron Odt 4 Mg Tab.Rapdis) 4 mg TRANSLINGU Q8H PRN PRN Reason: Nausea And Vomiting Last Admin: 09/06/23 23:09 Dose: 4 mg Documented By: EFRAIN Comments: Early admin ok per . Ondansetron HCl (Ondansetron Hcl 4 Mg/2 Ml Vial) 4 mg IVPUSH Q8H PRN PRN Reason: Nausea and Vomiting Last Admin: 09/20/23 11:55 Dose: 4 mg Documented By: ANEESH Oxycodone HCl (Oxycodone Hcl Immed Release 15 Mg Tablet) 15 mg PO Q4H PRN PRN Reason: severe pain Last Admin: 10/05/23 06:44 Dose: 15 mg Documented By: LANIE Polyethylene Glycol (Polyethylene Glycol 3350 17 Gm Powd.Pack) 17 gm PO DAILY [facility] Last Admin: 10/04/23 09:32 Dose: Not Given Documented By: EDWARDO Non-Admin Reason: Patient Refused Quetiapine Fumarate (Quetiapine Fumarate 25 Mg Tablet) 12.5 mg PO DAILY@1700 [facility] Last Admin: 10/04/23 17:02 Dose: 12.5 mg Documented By: SHAI Quetiapine Fumarate (Quetiapine Fumarate 25 Mg Tablet) 25 mg PO BID PRN PRN Reason: psychosis Last Admin: 09/30/23 20:43 Dose: 25 mg Documented By: CHEMA Sertraline HCl (Sertraline Hcl 100 Mg Tablet) 100 mg PO DAILY [facility] Last Admin: 10/04/23 09:25 Dose: 100 mg Documented By: EDWARDO Sucralfate (Sucralfate 1 Gm Tablet) 1 gm PO QIDACHS [facility] Last Admin: 10/04/23 20:59 Dose: 1 gm Documented By: SHAI Vitamin D (Cholecalciferol (Vitamin D3) 25 Mcg Tablet) 50 mcg PO DAILY [facility] Last Admin: 10/04/23 09:25 Dose: 50 mcg Documented By: EDWARDO Labs 09/30/23 07:24 10/02/23 05:53 Assessment and Plan (1) Cognitive impairment: Status: Acute Plan 68-year-old man admitted with weakness, failure to thrive, FEDERICO. Found in his home covered in feces and urine. FEDERICO on CKD stage 3. 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 Resolved Chest CT showing diffuse ground-glass airspace opacity in the left upper lobe adjacent to the major fissure. RPP + for parainfluenza no sepsis Completed course of empiric ceftriaxone and doxycycline blood cultures negative to date Hemoptysis. Resolved Eliquis held for 7 days Eliquis resumed 09/22 Hyperkalemia. Resolved d/c potassium replacement d/c aldactone N/V/Abd pain. Resolved KUB 09/13 negative for obstructive but with stool burden bowel regimen given chronic narcotic use and iron supplementation. Chronic pain will continue home oxycodone 15 mg Q4hrs PCP said that they were weaning him down and he was currently at 90mg a day lidocaine patch to knees as needed encourage oob, discussed with nursing Normocytic anemia H/H stable,stool occult negative iron studies with low iron, normal TIBC, ferritin on low side continue iron supplementation. continue bowel regimen H/H stable pancytopenia No baseline for comparison US with no evidence of liver disease hematology consult pending - further work up pending improving ?due to recent viral illness Hypertension Continue amlodipine, hydralazine, coreg, clonidine (wean clonidine due to low HR) consider further reduction on meds based on BP Atrial fibrillation, paroxysmal HR controlled On Eliquis and carvedilol Hyperlipidemia continue statin CAD continue BB, statin, imdur Mental health Continue zoloft, wellbutrin JOSE ALEJANDRO not on cpap DVT prophylaxis - Luis Attending Dr. Urbina Full code Requires ongoing inpatient stay for process of guardianship and placement Quality Stroke Does the patient have a stroke diagnosis?: No VTE Prior VTE?: No VTE Risk Level:: Medical - moderate - high VTE Device Contraindication: Treatment Not Indicated VTE Drug Contraindication: N/A - Med Ordered
[2023-10-05] MEDS: Cyanocobalamin (Vitamin B-12) 1,000 MCG TABLET 1000 MCG PO (07:57)
[2023-10-05] MEDS: Apixaban 5 MG TABLET PO ×2 (07:57→19:42)
[2023-10-05] MEDS: Docusate Sodium 100 MG CAPSULE PO ×2 (07:57→19:43)
[2023-10-05] MEDS: Atorvastatin Calcium 40 MG TABLET PO (07:57)
[2023-10-05] MEDS: Clopidogrel Bisulfate 75 MG TABLET PO (07:58)
[2023-10-05] MEDS: Ferrous Sulfate 324 MG TABLET.DR PO ×2 (07:58→17:04)
[2023-10-05] MEDS: allopurinoL 100 MG TABLET PO (07:58)
[2023-10-05] MEDS: Sucralfate 1 GM TABLET PO ×4 (07:58→19:42)
[2023-10-05] MEDS: Sertraline HCL 100 MG TABLET PO (07:58)
[2023-10-05] MEDS: buPROPion HCl XL 150 MG TAB.ER.24H PO (07:58)
[2023-10-05] MEDS: Cholecalciferol (Vitamin D3) 25 MCG TABLET 50 MCG PO (07:58)
[2023-10-05] MEDS: hydrALAZINE HCl 50 MG TABLET PO ×3 (07:58→19:44)
[2023-10-05] MEDS: Isosorbide Mononitrate 60 MG TAB.ER.24H PO (07:59)
[2023-10-05] MEDS: carvediloL 12.5 MG TABLET PO ×2 (07:59→19:45)
[2023-10-05] MEDS: amLODIPine Besylate 5 MG TABLET PO (08:00)
--- NOTE | 2023-10-05 08:53 | MHC.CM.PN ---
DP to [facility] via BLS. Pending Zamorano order. Plan is for psych to assess patient for possible medication change from Seroquel to Trazadone. CM will follow.
--- NOTE | 2023-10-05 13:24 | PM.PNNEP ---
Subjective Subjective Date of Service: 10/05/23 Interval history: Seen and examined this morning ; No overnight events Physical Exam Vital Signs: Vital Signs: Last Vital Signs Temp 97.9 F 10/05/23 07:57 Pulse 60 10/05/23 07:59 Resp 16 10/05/23 07:57 BP 157/86 H 10/05/23 08:00 Pulse Ox 96 10/05/23 07:57 O2 Del Method Room Air 10/05/23 07:57 O2 Flow Rate 2 09/18/23 14:35 BMI result Body Mass Index 20.5 Const: General: no acute distress Eyes: EOM: EOMs intact bilaterally Neck: Neck: Yes supple Resp: Auscultation: diminished lung sounds Cardio: Rate: regular rate GI: Palpation (GI): Soft to palpation Neuro: General: moves all extremities Objective Data Labs 09/30/23 07:24 10/02/23 05:53 Microbiology Microbiology Results: Microbiology 09/17/23 08:14 Blood - Venous Blood Culture - Final No growth after 5 days. 09/17/23 08:09 Blood - Venous Blood Culture - Final No growth after 5 days. 09/07/23 08:15 Blood - Venous Blood Culture - Final No growth after 5 days. 09/07/23 08:14 Blood - Venous Blood Culture - Final No growth after 5 days. Procedures Date of Service Date of Service: 10/05/23 Assessment & Plan Assessment and plan (1) FEDERICO (acute kidney injury): Status: Acute Plan FEDERICO due to tubular injury Repeat U/A bland; Serum creatinine stable Continue current supportive care for now Needs F/U [facility] for F/U after D/C Progress Note: Quality Stroke Does the patient have a stroke diagnosis?: No
[2023-10-05] MEDS: QUEtiapine Fumarate 25 MG TABLET 12.5 MG PO (17:04)
[2023-10-05] MEDS: cloNIDine HCL 0.1 MG TABLET PO (19:44)
[2023-10-06] VITALS (10 sets, daily range): BP systolic 127–151; BP diastolic 65–85; PULSE 59–75; RESP 18; TEMP 36–36.9; O2SAT 94–97
[2023-10-06] MEDS: oxyCODONE HCl Immed Release 15 MG TABLET PO ×6 (00:11→21:37)
[2023-10-06] MEDS: Melatonin 3 MG TABLET 6 MG PO ×2 (00:11→21:36)
[2023-10-06] MEDS: Omeprazole 20 MG CAPSULE.DR PO (05:46)
[2023-10-06] MEDS: Apixaban 5 MG TABLET PO ×2 (08:51→21:36)
[2023-10-06] MEDS: Docusate Sodium 100 MG CAPSULE PO ×2 (08:51→21:37)
[2023-10-06] MEDS: allopurinoL 100 MG TABLET PO (08:51)
[2023-10-06] MEDS: carvediloL 12.5 MG TABLET PO ×2 (08:52→21:36)
[2023-10-06] MEDS: Atorvastatin Calcium 40 MG TABLET PO (08:52)
[2023-10-06] MEDS: Sucralfate 1 GM TABLET PO ×4 (08:52→21:36)
[2023-10-06] MEDS: buPROPion HCl XL 150 MG TAB.ER.24H PO (08:52)
[2023-10-06] MEDS: Sertraline HCL 100 MG TABLET PO (08:52)
[2023-10-06] MEDS: Clopidogrel Bisulfate 75 MG TABLET PO (08:53)
[2023-10-06] MEDS: amLODIPine Besylate 5 MG TABLET PO (08:53)
[2023-10-06] MEDS: Cholecalciferol (Vitamin D3) 25 MCG TABLET 50 MCG PO (08:53)
[2023-10-06] MEDS: Cyanocobalamin (Vitamin B-12) 1,000 MCG TABLET 1000 MCG PO (08:53)
[2023-10-06] MEDS: Isosorbide Mononitrate 60 MG TAB.ER.24H PO (08:53)
[2023-10-06] MEDS: hydrALAZINE HCl 50 MG TABLET PO ×3 (08:54→21:37)
[2023-10-06] MEDS: Ferrous Sulfate 324 MG TABLET.DR PO ×2 (08:54→17:17)
[2023-10-06 09:33] LABS: Anti Nuclear Antibody Screen NEGATIVE (NEGATIVE)
--- NOTE | 2023-10-06 14:57 | MHC.CM.PN ---
Referral updated and sent to facilities. [facility] has accepted the patient clinically. Zamorano order may be needed. Provider has been notified that Seroquel is a barrier to discharge. She stated that she will review his case and decide. DP [facility] via BLS.
--- NOTE | 2023-10-06 15:59 | P.PNIM_ITS ---
Subjective Subjective Date of Service: 10/06/23 Interval History: seen and examined this morning follow up for placement no overnight events no specific complaints Review of Systems Review of Systems: Yes all other systems are reviewed and are negative Constitutional Constitutional: Denies chills and Denies fever(s) Physical Exam 2 Vital Signs: Vital Signs: Last Vital Signs Temp 97.8 F 10/06/23 15:20 Pulse 75 10/06/23 15:20 Resp 18 10/06/23 15:20 BP 127/77 10/06/23 15:20 Pulse Ox 97 10/06/23 15:20 O2 Del Method Room Air 10/06/23 15:20 O2 Flow Rate 2 09/18/23 14:35 BMI result Body Mass Index 20.5 Const: General: cooperative, comfortable, no acute distress, alert and awake Nutritional Appearance: average body habitus Orientation/consciousness: o riented to person, oriented to place and patient oriented x3 Resp: Effort & Inspection: normal respiratory effort, able to speak in complete sentences, no respiratory distress and no use of accessory muscles Cardio: Rate: regular rate GI: Inspection: No distended Palpation (GI): Soft to palpation and nontender Neuro: General: oriented to person, oriented to place, patient oriented x3, moves all extremities and CN's II-XI intact bilaterally Extrem: General: Yes no pedal edema Objective Data Active Medications Acetaminophen (Acetaminophen 325 Mg Tablet) 650 mg PO Q6H PRN PRN Reason: Pain, Mild (Pain Scale 1-3) Last Admin: 09/29/23 14:57 Dose: 650 mg Documented By: CASEY Allopurinol (Allopurinol 100 Mg Tablet) 100 mg PO DAILY [facility] Last Admin: 10/06/23 08:51 Dose: 100 mg Documented By: GALE Amlodipine Besylate (Amlodipine Besylate 5 Mg Tablet) 5 mg PO DAILY [facility]; Protocol Last Admin: 10/06/23 08:53 Dose: 5 mg Documented By: GALE Apixaban (Apixaban 5 Mg Tablet) 5 mg PO BID [facility] Last Admin: 10/06/23 08:51 Dose: 5 mg Documented By: GALE Atorvastatin Calcium (Atorvastatin Calcium 40 Mg Tablet) 40 mg PO DAILY [facility] Last Admin: 10/06/23 08:52 Dose: 40 mg Documented By: GALE Benzonatate (Benzonatate 100 Mg Capsule) 200 mg PO TID PRN PRN Reason: Cough Last Admin: 09/23/23 21:10 Dose: 200 mg Documented By: CHEMA Bupropion HCl (Bupropion Hcl Xl 150 Mg Tab.Er.24h) 150 mg PO DAILY [facility] Last Admin: 10/06/23 08:52 Dose: 150 mg Documented By: GALE Carvedilol (Carvedilol 12.5 Mg Tablet) 12.5 mg PO BID [facility]; Protocol Last Admin: 10/06/23 08:52 Dose: 12.5 mg Documented By: GALE Clonidine HCl (Clonidine Hcl 0.1 Mg Tablet) 0.1 mg PO BEDTIME [facility]; Protocol Last Admin: 10/05/23 19:44 Dose: 0.1 mg Documented By: BECKI Clopidogrel Bisulfate (Clopidogrel Bisulfate 75 Mg Tablet) 75 mg PO DAILY [facility] Last Admin: 10/06/23 08:53 Dose: 75 mg Documented By: GALE Cyanocobalamin (Cyanocobalamin (Vitamin B-12) 1,000 Mcg Tablet) 1,000 mcg PO DAILY [facility] Last Admin: 10/06/23 08:53 Dose: 1,000 mcg Documented By: GALE Docusate Sodium (Docusate Sodium 100 Mg Capsule) 100 mg PO BID [facility] Last Admin: 10/06/23 08:51 Dose: 100 mg Documented By: GALE Ferrous Sulfate (Ferrous Sulfate 324 Mg Tablet.Dr) 324 mg PO BIDWM [facility] Last Admin: 10/06/23 08:54 Dose: 324 mg Documented By: GALE Hydralazine HCl (Hydralazine Hcl 50 Mg Tablet) 50 mg PO TID [facility]; Protocol Last Admin: 10/06/23 08:54 Dose: 50 mg Documented By: GALE Isosorbide Mononitrate (Isosorbide Mononitrate 60 Mg Tab.Er.24h) 60 mg PO DAILY [facility]; Protocol Last Admin: 10/06/23 08:53 Dose: 60 mg Documented By: GALE Lidocaine (Lidocaine 4 % Patch Adh..Patch) 2 patch TRANSDERMA DAILY [facility]; Protocol Last Admin: 10/06/23 09:02 Dose: Not Given Documented By: GALE Non-Admin Reason: Patient Refused Melatonin (Melatonin 3 Mg Tablet) 6 mg PO BEDTIME PRN PRN Reason: Insomnia Last Admin: 10/06/23 00:11 Dose: 6 mg Documented By: BECKI Omeprazole (Omeprazole 20 Mg Capsule.Dr) 20 mg PO DAILY@0630 [facility] Last Admin: 10/06/23 05:46 Dose: 20 mg Documented By: BECKI Ondansetron HCl (Ondansetron Odt 4 Mg Tab.Rapdis) 4 mg TRANSLINGU Q8H PRN PRN Reason: Nausea And Vomiting Last Admin: 09/06/23 23:09 Dose: 4 mg Documented By: EFRAIN Comments: Early admin ok per . Ondansetron HCl (Ondansetron Hcl 4 Mg/2 Ml Vial) 4 mg IVPUSH Q8H PRN PRN Reason: Nausea and Vomiting Last Admin: 09/20/23 11:55 Dose: 4 mg Documented By: ANEESH Oxycodone HCl (Oxycodone Hcl Immed Release 15 Mg Tablet) 15 mg PO Q4H PRN PRN Reason: Pain, Moderate(Pain Scale 4-6) Last Admin: 10/06/23 13:06 Dose: 15 mg Documented By: GALE Polyethylene Glycol (Polyethylene Glycol 3350 17 Gm Powd.Pack) 17 gm PO DAILY [facility] Last Admin: 10/06/23 09:02 Dose: Not Given Documented By: GALE Non-Admin Reason: Patient Refused Quetiapine Fumarate (Quetiapine Fumarate 25 Mg Tablet) 25 mg PO BID PRN PRN Reason: psychosis Last Admin: 09/30/23 20:43 Dose: 25 mg Documented By: CHEMA Sertraline HCl (Sertraline Hcl 100 Mg Tablet) 100 mg PO DAILY [facility] Last Admin: 10/06/23 08:52 Dose: 100 mg Documented By: GALE Sucralfate (Sucralfate 1 Gm Tablet) 1 gm PO QIDACHS [facility] Last Admin: 10/06/23 13:06 Dose: 1 gm Documented By: GALE Vitamin D (Cholecalciferol (Vitamin D3) 25 Mcg Tablet) 50 mcg PO DAILY [facility] Last Admin: 10/06/23 08:53 Dose: 50 mcg Documented By: HO.DOBROB Labs 09/30/23 07:24 10/02/23 05:53 Labs: Laboratory Results - last 24 hr 09/27/23 07:28 MIGUEL Screen NEGATIVE MIGUEL Titer TNP MIGUEL Titer 2 TNP MIGUEL Titer 3 TNP MIUGEL Pattern TNP MIGUEL Pattern 2 TNP MIGUEL Pattern 3 TNP Assessment and Plan (1) Cognitive impairment: Status: Acute Plan 68-year-old man admitted with weakness, failure to thrive, FEDERICO. Found in his home covered in feces and urine. FEDERICO on CKD stage 3. Creatinine trending down renal function up and down off and on Lasix, now on hold aldactone stopped nephrology following>check serologies (MIGUEL pending), urine studies wnl, continue to hold diuretics Failure to thrive Physical therapy recommended long-term care patient does not have capacity to make medical decisions, healthcare proxy has been invoked Guardianship in process>hearing September 26, now working on [employer] application psych following as needed seroquel stopped Pneumonia, possible viral. Resolved Chest CT showing diffuse ground-glass airspace opacity in the left upper lobe adjacent to the major fissure. RPP + for parainfluenza no sepsis Completed course of empiric ceftriaxone and doxycycline blood cultures negative to date Hemoptysis. Resolved Eliquis held for 7 days Eliquis resumed 5/10 Hyperkalemia. Resolved d/c potassium replacement d/c aldactone N/V/Abd pain. Resolved KUB 5/1 negative for obstructive but with stool burden bowel regimen given chronic narcotic use and iron supplementation. Chronic pain will continue home oxycodone 15 mg Q4hrs PCP said that they were weaning him down and he was currently at 90mg a day lidocaine patch to knees as needed encourage oob, discussed with nursing Normocytic anemia H/H stable,stool occult negative iron studies with low iron, normal TIBC, ferritin on low side continue iron supplementation. continue bowel regimen H/H stable pancytopenia No baseline for comparison US with no evidence of liver disease hematology consult pending - further work up pending improving ?due to recent viral illness Hypertension Continue amlodipine, hydralazine, coreg, clonidine (wean clonidine due to low HR) consider further reduction on meds based on BP Atrial fibrillation, paroxysmal HR controlled On Eliquis and carvedilol Hyperlipidemia continue statin CAD continue BB, statin, imdur Mental health Continue zoloft, wellbutrin JOSE ALEJANDRO not on cpap DVT prophylaxis - Luis Attending Dr. Urbina Full code Requires ongoing inpatient stay for process of guardianship and placement Quality Stroke Does the patient have a stroke diagnosis?: No VTE Prior VTE?: No VTE Risk Level:: Medical - moderate - high VTE Device Contraindication: Treatment Not Indicated VTE Drug Contraindication: N/A - Med Ordered
--- NOTE | 2023-10-06 19:39 | P.PNNP_ITS ---
Subjective Subjective Date of Service: 10/06/23 Interval history: seen and examined this morning; no overnight events Physical Exam 2 Vital Signs: Vital Signs: Last Vital Signs Temp 97.8 F 10/06/23 15:20 Pulse 75 10/06/23 15:20 Resp 18 10/06/23 15:20 BP 127/77 10/06/23 16:20 Pulse Ox 97 10/06/23 15:20 O2 Del Method Room Air 10/06/23 15:20 O2 Flow Rate 2 09/18/23 14:35 BMI result Body Mass Index 20.5 Const: General: no acute distress Eyes: EOM: EOMs intact bilaterally Neck: Neck: Yes supple Resp: Auscultation: diminished lung sounds Cardio: Rate: regular rate GI: Palpation (GI): Soft to palpation Neuro: General: moves all extremities Objective Data Labs 09/30/23 07:24 10/02/23 05:53 Labs: Laboratory Results - last 24 hr 09/27/23 07:28 MIGUEL Screen NEGATIVE MIGUEL Titer TNP MIGUEL Titer 2 TNP MIGUEL Titer 3 TNP MIGUEL Pattern TNP MIGUEL Pattern 2 TNP MIGUEL Pattern 3 TNP Microbiology Microbiology Results: Microbiology 09/17/23 08:14 Blood - Venous Blood Culture - Final No growth after 5 days. 09/17/23 08:09 Blood - Venous Blood Culture - Final No growth after 5 days. 09/07/23 08:15 Blood - Venous Blood Culture - Final No growth after 5 days. 09/07/23 08:14 Blood - Venous Blood Culture - Final No growth after 5 days. Procedures Date of Service Date of Service: 10/06/23 Assessment & Plan Assessment and plan (1) FEDERICO (acute kidney injury): Status: Acute Plan FEDERICO due to tubular injury Repeat U/A bland; Serum creatinine had been stable No blood work for review today Continue current supportive care for now Needs F/U [facility] for F/U after D/C Progress Note: Quality Stroke Does the patient have a stroke diagnosis?: No
[2023-10-06] MEDS: QUEtiapine Fumarate 25 MG TABLET PO (21:36)
[2023-10-06] MEDS: cloNIDine HCL 0.1 MG TABLET PO (21:37)
[2023-10-07] VITALS (12 sets, daily range): BP systolic 131–162; BP diastolic 76–87; PULSE 58–69; RESP 16–18; TEMP 36.2–36.6; O2SAT 95–97
[2023-10-07] MEDS: oxyCODONE HCl Immed Release 15 MG TABLET PO ×5 (05:58→23:00)
[2023-10-07] MEDS: Omeprazole 20 MG CAPSULE.DR PO (05:58)
--- NOTE | 2023-10-07 08:44 | PM.PNNEP ---
Subjective Subjective Date of Service: 10/07/23 Interval history: Events noted. All recent data reviewed Physical Exam Vital Signs: Vital Signs: Last Vital Signs Temp 97.8 F 10/07/23 07:27 Pulse 58 10/07/23 07:27 Resp 16 10/07/23 07:27 BP 149/76 H 10/07/23 07:27 Pulse Ox 95 10/07/23 07:27 O2 Del Method Room Air 10/07/23 07:27 O2 Flow Rate 2 09/18/23 14:35 BMI result Body Mass Index 20.5 Const: General: no acute distress Eyes: EOM: EOMs intact bilaterally Neck: Neck: Yes supple Resp: Auscultation: diminished lung sounds Cardio: Rate: regular rate GI: Palpation (GI): Soft to palpation Neuro: General: moves all extremities Objective Data Labs 09/30/23 07:24 10/02/23 05:53 Labs: Laboratory Results - last 24 hr 09/27/23 07:28 MIGUEL Screen NEGATIVE MIGUEL Titer TNP MIGUEL Titer 2 TNP MIGUEL Titer 3 TNP MIGUEL Pattern TNP MIGUEL Pattern 2 TNP MIGUEL Pattern 3 TNP Microbiology Microbiology Results: Microbiology 09/17/23 08:14 Blood - Venous Blood Culture - Final No growth after 5 days. 09/17/23 08:09 Blood - Venous Blood Culture - Final No growth after 5 days. 09/07/23 08:15 Blood - Venous Blood Culture - Final No growth after 5 days. 09/07/23 08:14 Blood - Venous Blood Culture - Final No growth after 5 days. Procedures Date of Service Date of Service: 10/07/23 Assessment & Plan Assessment and plan (1) FEDERICO (acute kidney injury): Status: Acute Plan FEDERICO due to tubular injury Repeat U/A bland; Serum creatinine had been stable No blood work yet for review today Continue current supportive care for now Needs F/U [facility] for F/U after D/C Progress Note: Quality Stroke Does the patient have a stroke diagnosis?: No
[2023-10-07] MEDS: Sucralfate 1 GM TABLET PO ×4 (08:52→20:36)
[2023-10-07] MEDS: Isosorbide Mononitrate 60 MG TAB.ER.24H PO (08:53)
[2023-10-07] MEDS: buPROPion HCl XL 150 MG TAB.ER.24H PO (08:54)
[2023-10-07] MEDS: Clopidogrel Bisulfate 75 MG TABLET PO (08:54)
[2023-10-07] MEDS: Docusate Sodium 100 MG CAPSULE PO ×2 (08:54→20:38)
[2023-10-07] MEDS: hydrALAZINE HCl 50 MG TABLET PO ×3 (08:55→20:36)
[2023-10-07] MEDS: Cholecalciferol (Vitamin D3) 25 MCG TABLET 50 MCG PO (08:55)
[2023-10-07] MEDS: Ferrous Sulfate 324 MG TABLET.DR PO ×2 (08:55→18:23)
[2023-10-07] MEDS: Atorvastatin Calcium 40 MG TABLET PO (08:56)
[2023-10-07] MEDS: carvediloL 12.5 MG TABLET PO ×2 (08:56→20:37)
[2023-10-07] MEDS: allopurinoL 100 MG TABLET PO (08:57)
[2023-10-07] MEDS: Apixaban 5 MG TABLET PO ×2 (08:57→20:36)
[2023-10-07] MEDS: Sertraline HCL 100 MG TABLET PO (08:57)
[2023-10-07] MEDS: Cyanocobalamin (Vitamin B-12) 1,000 MCG TABLET 1000 MCG PO (08:57)
[2023-10-07] MEDS: amLODIPine Besylate 5 MG TABLET PO (08:57)
--- NOTE | 2023-10-07 09:25 | MHC.CLN ---
F/U DIET=CARDIAC-APPROPRIATE. ENSURE TID (1050 KCALS, 60 G PROTEIN) TO PROMOTE WOUND HEALING. PO INTAKE USUALLY 75-100%. SKIN WITH DTI TO RIGHT ANKLE AND DTI TO RIGHT HIP. MONITOR PO INTAKE AND ENCOURAGE SUPPLEMENTS. RD TO FOLLOW WEEKLY.
[2023-10-07] MEDS: Benzonatate 100 MG CAPSULE 200 MG PO (11:43)
--- NOTE | 2023-10-07 12:32 | MHC.CM.PN ---
[facility] has LTC beds available. Guardian Rigoberto was given contact info for [facility] admissions, at liasons request. A bed offer is likely. Barrier: Medication requiring a Zamorano order has not been changed yet. Plan is to follow up with Rigoberto once the medications have been addressed.
--- NOTE | 2023-10-07 14:44 | P.PNIM_ITS ---
Subjective Subjective Date of Service: 10/07/23 Interval History: Seen and examined this morning Follow-up for placement No overnight events Review of Systems Review of Systems: Yes all other systems are reviewed and are negative Constitutional Constitutional: Denies chills and Denies fever(s) Physical Exam 2 Vital Signs: Vital Signs: Last Vital Signs Temp 97.8 F 10/07/23 07:27 Pulse 58 10/07/23 08:56 Resp 16 10/07/23 07:27 BP 162/87 H 10/07/23 14:21 Pulse Ox 95 10/07/23 07:27 O2 Del Method Room Air 10/07/23 07:27 O2 Flow Rate 2 09/18/23 14:35 BMI result Body Mass Index 20.5 Const: General: cooperative, comfortable, no acute distress, alert and awake Nutritional Appearance: average body habitus Orientation/consciousness: o riented to person, oriented to place and patient oriented x3 Resp: Other: no wheeze, rales Effort & Inspection: normal respiratory effort, able to speak in complete sentences, no respiratory distress and no use of accessory muscles Cardio: Rate: regular rate GI: Inspection: No distended Palpation (GI): Soft to palpation and nontender Neuro: General: oriented to person, oriented to place, patient oriented x3, moves all extremities and CN's II-XI intact bilaterally Extrem: General: Yes no pedal edema Objective Data Active Medications Acetaminophen (Acetaminophen 325 Mg Tablet) 650 mg PO Q6H PRN PRN Reason: Pain, Mild (Pain Scale 1-3) Last Admin: 09/29/23 14:57 Dose: 650 mg Documented By: CASEY Allopurinol (Allopurinol 100 Mg Tablet) 100 mg PO DAILY [facility] Last Admin: 10/07/23 08:57 Dose: 100 mg Documented By: CHRIS Amlodipine Besylate (Amlodipine Besylate 5 Mg Tablet) 5 mg PO DAILY [facility]; Protocol Last Admin: 10/07/23 08:57 Dose: 5 mg Documented By: CHRIS Apixaban (Apixaban 5 Mg Tablet) 5 mg PO BID [facility] Last Admin: 10/07/23 08:57 Dose: 5 mg Documented By: CHRIS Atorvastatin Calcium (Atorvastatin Calcium 40 Mg Tablet) 40 mg PO DAILY [facility] Last Admin: 10/07/23 08:56 Dose: 40 mg Documented By: CHRIS Benzonatate (Benzonatate 100 Mg Capsule) 200 mg PO TID PRN PRN Reason: Cough Last Admin: 10/07/23 11:43 Dose: 200 mg Documented By: GALE Bupropion HCl (Bupropion Hcl Xl 150 Mg Tab.Er.24h) 150 mg PO DAILY [facility] Last Admin: 10/07/23 08:54 Dose: 150 mg Documented By: CHRIS Carvedilol (Carvedilol 12.5 Mg Tablet) 12.5 mg PO BID [facility]; Protocol Last Admin: 10/07/23 08:56 Dose: 12.5 mg Documented By: CHRIS Clonidine HCl (Clonidine Hcl 0.1 Mg Tablet) 0.1 mg PO BEDTIME [facility]; Protocol Last Admin: 10/06/23 21:37 Dose: 0.1 mg Documented By: CHEMA Clopidogrel Bisulfate (Clopidogrel Bisulfate 75 Mg Tablet) 75 mg PO DAILY [facility] Last Admin: 10/07/23 08:54 Dose: 75 mg Documented By: CHRIS Cyanocobalamin (Cyanocobalamin (Vitamin B-12) 1,000 Mcg Tablet) 1,000 mcg PO DAILY [facility] Last Admin: 10/07/23 08:57 Dose: 1,000 mcg Documented By: CHRIS Docusate Sodium (Docusate Sodium 100 Mg Capsule) 100 mg PO BID [facility] Last Admin: 10/07/23 08:54 Dose: 100 mg Documented By: CHRIS Ferrous Sulfate (Ferrous Sulfate 324 Mg Tablet.Dr) 324 mg PO BIDWM [facility] Last Admin: 10/07/23 08:55 Dose: 324 mg Documented By: CHRIS Hydralazine HCl (Hydralazine Hcl 50 Mg Tablet) 50 mg PO TID [facility]; Protocol Last Admin: 10/07/23 14:21 Dose: 50 mg Documented By: GALE Isosorbide Mononitrate (Isosorbide Mononitrate 60 Mg Tab.Er.24h) 60 mg PO DAILY [facility]; Protocol Last Admin: 10/07/23 08:53 Dose: 60 mg Documented By: CHRIS Lidocaine (Lidocaine 4 % Patch Adh..Patch) 2 patch TRANSDERMA DAILY [facility]; Protocol Last Admin: 10/07/23 08:59 Dose: Not Given Documented By: CHRIS Non-Admin Reason: Patient Refused Melatonin (Melatonin 3 Mg Tablet) 6 mg PO BEDTIME PRN PRN Reason: Insomnia Last Admin: 10/06/23 21:36 Dose: 6 mg Documented By: CHEMA Omeprazole (Omeprazole 20 Mg Capsule.Dr) 20 mg PO DAILY@0630 [facility] Last Admin: 10/07/23 05:58 Dose: 20 mg Documented By: CHEMA Ondansetron HCl (Ondansetron Odt 4 Mg Tab.Rapdis) 4 mg TRANSLINGU Q8H PRN PRN Reason: Nausea And Vomiting Last Admin: 09/06/23 23:09 Dose: 4 mg Documented By: EFRAIN Comments: Early admin ok per MD. Ondansetron HCl (Ondansetron Hcl 4 Mg/2 Ml Vial) 4 mg IVPUSH Q8H PRN PRN Reason: Nausea and Vomiting Last Admin: 09/20/23 11:55 Dose: 4 mg Documented By: ANEESH Oxycodone HCl (Oxycodone Hcl Immed Release 15 Mg Tablet) 15 mg PO Q4H PRN PRN Reason: Pain, Moderate(Pain Scale 4-6) Last Admin: 10/07/23 14:21 Dose: 15 mg Documented By: GALE Polyethylene Glycol (Polyethylene Glycol 3350 17 Gm Powd.Pack) 17 gm PO DAILY [facility] Last Admin: 10/07/23 09:00 Dose: Not Given Documented By: CHRIS Non-Admin Reason: Patient Refused Sertraline HCl (Sertraline Hcl 100 Mg Tablet) 100 mg PO DAILY [facility] Last Admin: 10/07/23 08:57 Dose: 100 mg Documented By: CHRIS Sucralfate (Sucralfate 1 Gm Tablet) 1 gm PO QIDACHS [facility] Last Admin: 10/07/23 11:43 Dose: 1 gm Documented By: GALE Vitamin D (Cholecalciferol (Vitamin D3) 25 Mcg Tablet) 50 mcg PO DAILY [facility] Last Admin: 10/07/23 08:55 Dose: 50 mcg Documented By: CHRIS Labs 09/30/23 07:24 10/02/23 05:53 Assessment and Plan (1) Cognitive impairment: Status: Acute Plan 68-year-old man admitted with weakness, failure to thrive, FEDERICO. Found in his home covered in feces and urine. FEDERICO on CKD stage 3. Creatinine trending down renal function up and down off and on Lasix, now on hold aldactone stopped nephrology following>check serologies (MIGUEL pending), urine studies wnl, continue to hold diuretics Failure to thrive Physical therapy recommended long-term care patient does not have capacity to make medical decisions, healthcare proxy has been invoked Guardianship in process>hearing September 26, now working on [employer] application psych following as needed seroquel stopped per psych; avoid benzos Pneumonia, possible viral. Resolved Chest CT showing diffuse ground-glass airspace opacity in the left upper lobe adjacent to the major fissure. RPP + for parainfluenza no sepsis Completed course of empiric ceftriaxone and doxycycline blood cultures negative to date Hemoptysis. Resolved Eliquis held for 7 days Eliquis resumed 5/10 Hyperkalemia. Resolved d/c potassium replacement d/c aldactone N/V/Abd pain. Resolved KUB 5/ negative for obstructive but with stool burden bowel regimen given chronic narcotic use and iron supplementation. Chronic pain will continue home oxycodone 15 mg Q4hrs PCP said that they were weaning him down and he was currently at 90mg a day lidocaine patch to knees as needed encourage oob, discussed with nursing Normocytic anemia H/H stable,stool occult negative iron studies with low iron, normal TIBC, ferritin on low side continue iron supplementation. continue bowel regimen H/H stable pancytopenia No baseline for comparison US with no evidence of liver disease hematology consult pending - further work up pending improving ?due to recent viral illness Hypertension Continue amlodipine, hydralazine, coreg, clonidine (wean clonidine due to low HR) consider further reduction on meds based on BP Atrial fibrillation, paroxysmal HR controlled On Eliquis and carvedilol Hyperlipidemia continue statin CAD continue BB, statin, imdur Mental health Continue zoloft, wellbutrin JOSE ALEJANDRO not on cpap DVT prophylaxis - Luis Attending Dr. Urbina Full code Requires ongoing inpatient stay for process of guardianship and placement Quality Stroke Does the patient have a stroke diagnosis?: No VTE Prior VTE?: No VTE Risk Level:: Medical - moderate - high VTE Device Contraindication: Treatment Not Indicated VTE Drug Contraindication: N/A - Med Ordered
[2023-10-07] MEDS: Melatonin 3 MG TABLET 6 MG PO (20:37)
[2023-10-07] MEDS: cloNIDine HCL 0.1 MG TABLET PO (20:38)
[2023-10-08] MEDS: oxyCODONE HCl Immed Release 15 MG TABLET PO ×5 (03:36→20:20)
[2023-10-08 03:42] VITALS: BP 132/68; PULSE 71; RESP 20; TEMP 36.2; O2SAT 96
[2023-10-08] MEDS: Omeprazole 20 MG CAPSULE.DR PO (05:55)
[2023-10-08 07:08] VITALS: BP 142/74; PULSE 65; RESP 17; TEMP 36.6; O2SAT 96
[2023-10-08] MEDS: Ferrous Sulfate 324 MG TABLET.DR PO ×2 (07:33→16:09)
[2023-10-08] MEDS: Sucralfate 1 GM TABLET PO ×4 (07:33→21:35)
--- NOTE | 2023-10-08 07:41 | P.PNIM_ITS ---
Subjective Subjective Date of Service: 10/08/23 Interval History: Seen and examined this morning Follow-up for placement No overnight events Review of Systems Review of Systems: Yes all other systems are reviewed and are negative Constitutional Constitutional: Denies chills and Denies fever(s) Physical Exam 2 Vital Signs: Vital Signs: Last Vital Signs Temp 97.8 F 10/08/23 07:08 Pulse 65 10/08/23 07:08 Resp 17 10/08/23 07:08 BP 142/74 H 10/08/23 07:08 Pulse Ox 96 10/08/23 07:08 O2 Del Method Room Air 10/08/23 07:08 O2 Flow Rate 2 09/18/23 14:35 BMI result Body Mass Index 20.5 alert and confused abd soft LSCTA Objective Data Active Medications Acetaminophen (Acetaminophen 325 Mg Tablet) 650 mg PO Q6H PRN PRN Reason: Pain, Mild (Pain Scale 1-3) Last Admin: 09/29/23 14:57 Dose: 650 mg Documented By: CASEY Allopurinol (Allopurinol 100 Mg Tablet) 100 mg PO DAILY [facility] Last Admin: 10/07/23 08:57 Dose: 100 mg Documented By: CHRIS Amlodipine Besylate (Amlodipine Besylate 5 Mg Tablet) 5 mg PO DAILY [facility]; Protocol Last Admin: 10/07/23 08:57 Dose: 5 mg Documented By: CHRIS Apixaban (Apixaban 5 Mg Tablet) 5 mg PO BID [facility] Last Admin: 10/07/23 20:36 Dose: 5 mg Documented By: SHAI Atorvastatin Calcium (Atorvastatin Calcium 40 Mg Tablet) 40 mg PO DAILY [facility] Last Admin: 10/07/23 08:56 Dose: 40 mg Documented By: CHRIS Benzonatate (Benzonatate 100 Mg Capsule) 200 mg PO TID PRN PRN Reason: Cough Last Admin: 10/07/23 11:43 Dose: 200 mg Documented By: DOBROB Bupropion HCl (Bupropion Hcl Xl 150 Mg Tab.Er.24h) 150 mg PO DAILY [facility] Last Admin: 10/07/23 08:54 Dose: 150 mg Documented By: CHRIS Carvedilol (Carvedilol 12.5 Mg Tablet) 12.5 mg PO BID [facility]; Protocol Last Admin: 10/07/23 20:37 Dose: 12.5 mg Documented By: SHAI Clonidine HCl (Clonidine Hcl 0.1 Mg Tablet) 0.1 mg PO BEDTIME [facility]; Protocol Last Admin: 10/07/23 20:38 Dose: 0.1 mg Documented By: SHAI Clopidogrel Bisulfate (Clopidogrel Bisulfate 75 Mg Tablet) 75 mg PO DAILY [facility] Last Admin: 10/07/23 08:54 Dose: 75 mg Documented By: CHRIS Cyanocobalamin (Cyanocobalamin (Vitamin B-12) 1,000 Mcg Tablet) 1,000 mcg PO DAILY [facility] Last Admin: 10/07/23 08:57 Dose: 1,000 mcg Documented By: CHRIS Docusate Sodium (Docusate Sodium 100 Mg Capsule) 100 mg PO BID [facility] Last Admin: 10/07/23 20:38 Dose: 100 mg Documented By: SHAI Ferrous Sulfate (Ferrous Sulfate 324 Mg Tablet.) 324 mg PO BIDWM [facility] Last Admin: 10/08/23 07:33 Dose: 324 mg Documented By: DEREJE Hydralazine HCl (Hydralazine Hcl 50 Mg Tablet) 50 mg PO TID [facility]; Protocol Last Admin: 10/07/23 20:36 Dose: 50 mg Documented By: SHAI Isosorbide Mononitrate (Isosorbide Mononitrate 60 Mg Tab.Er.24h) 60 mg PO DAILY [facility]; Protocol Last Admin: 10/07/23 08:53 Dose: 60 mg Documented By: CHRIS Lidocaine (Lidocaine 4 % Patch Adh..Patch) 2 patch TRANSDERMA DAILY [facility]; Protocol Last Admin: 10/07/23 08:59 Dose: Not Given Documented By: CHRIS Non-Admin Reason: Patient Refused Melatonin (Melatonin 3 Mg Tablet) 6 mg PO BEDTIME PRN PRN Reason: Insomnia Last Admin: 10/07/23 20:37 Dose: 6 mg Documented By: SHAI Omeprazole (Omeprazole 20 Mg Capsule.) 20 mg PO DAILY@0630 [facility] Last Admin: 10/08/23 05:55 Dose: 20 mg Documented By: MENG Ondansetron HCl (Ondansetron Odt 4 Mg Tab.Rapdis) 4 mg TRANSLINGU Q8H PRN PRN Reason: Nausea And Vomiting Last Admin: 09/06/23 23:09 Dose: 4 mg Documented By: EFRAIN Comments: Early admin ok per MD. Ondansetron HCl (Ondansetron Hcl 4 Mg/2 Ml Vial) 4 mg IVPUSH Q8H PRN PRN Reason: Nausea and Vomiting Last Admin: 09/20/23 11:55 Dose: 4 mg Documented By: ANEESH Oxycodone HCl (Oxycodone Hcl Immed Release 15 Mg Tablet) 15 mg PO Q4H PRN PRN Reason: Pain, Moderate(Pain Scale 4-6) Last Admin: 10/08/23 07:33 Dose: 15 mg Documented By: DEREJE Polyethylene Glycol (Polyethylene Glycol 3350 17 Gm Powd.Pack) 17 gm PO DAILY [facility] Last Admin: 10/07/23 09:00 Dose: Not Given Documented By: CHRIS Non-Admin Reason: Patient Refused Sertraline HCl (Sertraline Hcl 100 Mg Tablet) 100 mg PO DAILY [facility] Last Admin: 10/07/23 08:57 Dose: 100 mg Documented By: CHRIS Sucralfate (Sucralfate 1 Gm Tablet) 1 gm PO QIDACHS [facility] Last Admin: 10/08/23 07:33 Dose: 1 gm Documented By: DEREJE Vitamin D (Cholecalciferol (Vitamin D3) 25 Mcg Tablet) 50 mcg PO DAILY [facility] Last Admin: 10/07/23 08:55 Dose: 50 mcg Documented By: CHRIS Labs 09/30/23 07:24 10/02/23 05:53 Assessment and Plan (1) Cognitive impairment: Status: Acute Plan 68-year-old man admitted with weakness, failure to thrive, FEDER[place]. Found in his home covered in feces and urine. FEDERICO on CKD stage 3. Creatinine trending down renal function up and down off and on Lasix, now on hold aldactone stopped nephrology following>check serologies (MIGUEL pending), urine studies wnl, continue to hold diuretics Failure to thrive Physical therapy recommended long-term care patient does not have capacity to make medical decisions, healthcare proxy has been invoked Guardianship in process>hearing September 26, now working on [employer] application psych following as needed seroquel stopped per psych; avoid benzos Pneumonia, possible viral. Resolved Chest CT showing diffuse ground-glass airspace opacity in the left upper lobe adjacent to the major fissure. RPP + for parainfluenza no sepsis Completed course of empiric ceftriaxone and doxycycline blood cultures negative to date Hemoptysis. Resolved Eliquis held for 7 days Eliquis resumed 5/10 Hyperkalemia. Resolved d/c potassium replacement d/c aldactone N/V/Abd pain. Resolved KUB 09/13 negative for obstructive but with stool burden bowel regimen given chronic narcotic use and iron supplementation. Chronic pain will continue home oxycodone 15 mg Q4hrs PCP said that they were weaning him down and he was currently at 90mg a day lidocaine patch to knees as needed encourage oob, discussed with nursing Normocytic anemia H/H stable,stool occult negative iron studies with low iron, normal TIBC, ferritin on low side continue iron supplementation. continue bowel regimen H/H stable pancytopenia No baseline for comparison US with no evidence of liver disease hematology consult pending - further work up pending improving ?due to recent viral illness Hypertension Continue amlodipine, hydralazine, coreg, clonidine (wean clonidine due to low HR) consider further reduction on meds based on BP Atrial fibrillation, paroxysmal HR controlled On Eliquis and carvedilol Hyperlipidemia continue statin CAD continue BB, statin, imdur Mental health Continue zoloft, wellbutrin JOSE ALEJANDRO not on cpap DVT prophylaxis - Luis Attending Dr. Casillas Full code Requires ongoing inpatient stay for process of guardianship and placement Quality Stroke Does the patient have a stroke diagnosis?: No VTE Prior VTE?: No VTE Risk Level:: Medical - moderate - high VTE Device Contraindication: Treatment Not Indicated VTE Drug Contraindication: N/A - Med Ordered
[2023-10-08] MEDS: carvediloL 12.5 MG TABLET PO ×2 (08:05→21:35)
[2023-10-08] MEDS: Cholecalciferol (Vitamin D3) 25 MCG TABLET 50 MCG PO (08:05)
[2023-10-08] MEDS: amLODIPine Besylate 5 MG TABLET PO (08:05)
[2023-10-08] MEDS: Sertraline HCL 100 MG TABLET PO (08:06)
[2023-10-08] MEDS: buPROPion HCl XL 150 MG TAB.ER.24H PO (08:06)
[2023-10-08] MEDS: Apixaban 5 MG TABLET PO ×2 (08:06→21:36)
[2023-10-08] MEDS: Atorvastatin Calcium 40 MG TABLET PO (08:06)
[2023-10-08] MEDS: hydrALAZINE HCl 50 MG TABLET PO ×3 (08:06→21:35)
[2023-10-08] MEDS: Docusate Sodium 100 MG CAPSULE PO ×2 (08:06→21:35)
[2023-10-08] MEDS: Isosorbide Mononitrate 60 MG TAB.ER.24H PO (08:06)
[2023-10-08] MEDS: allopurinoL 100 MG TABLET PO (08:06)
[2023-10-08] MEDS: Clopidogrel Bisulfate 75 MG TABLET PO (08:06)
[2023-10-08] MEDS: Cyanocobalamin (Vitamin B-12) 1,000 MCG TABLET 1000 MCG PO (08:06)
[2023-10-08 16:00] VITALS: BP 140/80; PULSE 64; RESP 12; TEMP 36.8; O2SAT 95
[2023-10-08 20:00] VITALS: BP 153/91; PULSE 68; RESP 20; TEMP 36.4; O2SAT 97
[2023-10-08] MEDS: cloNIDine HCL 0.1 MG TABLET PO (21:35)
[2023-10-09] VITALS (7 sets, daily range): BP systolic 136–166; BP diastolic 68–97; PULSE 62–88; RESP 12–18; TEMP 36.2–36.4; O2SAT 95–97
[2023-10-09] MEDS: oxyCODONE HCl Immed Release 15 MG TABLET PO ×5 (01:01→20:59)
[2023-10-09] MEDS: Melatonin 3 MG TABLET 6 MG PO ×2 (01:01→23:46)
[2023-10-09] MEDS: Omeprazole 20 MG CAPSULE.DR PO (05:29)
--- NOTE | 2023-10-09 07:16 | PC.NURSE ---
Right ankle and Right Hip Dressings CDI
--- NOTE | 2023-10-09 07:23 | P.PNIM_ITS ---
Subjective Subjective Date of Service: 10/09/23 Interval History: Seen and examined this morning Follow-up for placement No overnight events Review of Systems Review of Systems: Yes all other systems are reviewed and are negative Constitutional Constitutional: Denies chills and Denies fever(s) Physical Exam 2 Vital Signs: Vital Signs: Last Vital Signs Temp 97.6 F 10/09/23 03:33 Pulse 62 10/09/23 03:33 Resp 18 10/09/23 03:33 BP 140/86 H 10/09/23 03:33 Pulse Ox 96 10/09/23 03:33 O2 Del Method Room Air 10/09/23 03:33 O2 Flow Rate 2 09/18/23 14:35 BMI result Body Mass Index 20.5 alert and confused Objective Data Active Medications Acetaminophen (Acetaminophen 325 Mg Tablet) 650 mg PO Q6H PRN PRN Reason: Pain, Mild (Pain Scale 1-3) Last Admin: 09/29/23 14:57 Dose: 650 mg Documented By: CASEY Allopurinol (Allopurinol 100 Mg Tablet) 100 mg PO DAILY [facility] Last Admin: 10/08/23 08:06 Dose: 100 mg Documented By: DEREJE Amlodipine Besylate (Amlodipine Besylate 5 Mg Tablet) 5 mg PO DAILY [facility]; Protocol Last Admin: 10/08/23 08:05 Dose: 5 mg Documented By: DEREJE Apixaban (Apixaban 5 Mg Tablet) 5 mg PO BID [facility] Last Admin: 10/08/23 21:36 Dose: 5 mg Documented By: LYSFrancesca Atorvastatin Calcium (Atorvastatin Calcium 40 Mg Tablet) 40 mg PO DAILY [facility] Last Admin: 10/08/23 08:06 Dose: 40 mg Documented By: DEREJE Benzonatate (Benzonatate 100 Mg Capsule) 200 mg PO TID PRN PRN Reason: Cough Last Admin: 10/07/23 11:43 Dose: 200 mg Documented By: DOBROB Bupropion HCl (Bupropion Hcl Xl 150 Mg Tab.Er.24h) 150 mg PO DAILY [facility] Last Admin: 10/08/23 08:06 Dose: 150 mg Documented By: DEREJE Carvedilol (Carvedilol 12.5 Mg Tablet) 12.5 mg PO BID [facility]; Protocol Last Admin: 10/08/23 21:35 Dose: 12.5 mg Documented By: HERON Clonidine HCl (Clonidine Hcl 0.1 Mg Tablet) 0.1 mg PO BEDTIME [facility]; Protocol Last Admin: 10/08/23 21:35 Dose: 0.1 mg Documented By: HERON Clopidogrel Bisulfate (Clopidogrel Bisulfate 75 Mg Tablet) 75 mg PO DAILY [facility] Last Admin: 10/08/23 08:06 Dose: 75 mg Documented By: DEREJE Cyanocobalamin (Cyanocobalamin (Vitamin B-12) 1,000 Mcg Tablet) 1,000 mcg PO DAILY [facility] Last Admin: 10/08/23 08:06 Dose: 1,000 mcg Documented By: DEREJE Docusate Sodium (Docusate Sodium 100 Mg Capsule) 100 mg PO BID [facility] Last Admin: 10/08/23 21:35 Dose: 100 mg Documented By: HERON Ferrous Sulfate (Ferrous Sulfate 324 Mg Tablet.) 324 mg PO BIDWM [facility] Last Admin: 10/08/23 16:09 Dose: 324 mg Documented By: DEREJE Hydralazine HCl (Hydralazine Hcl 50 Mg Tablet) 50 mg PO TID [facility]; Protocol Last Admin: 10/08/23 21:35 Dose: 50 mg Documented By: HERON Isosorbide Mononitrate (Isosorbide Mononitrate 60 Mg Tab.Er.24h) 60 mg PO DAILY [facility]; Protocol Last Admin: 10/08/23 08:06 Dose: 60 mg Documented By: DEREJE Melatonin (Melatonin 3 Mg Tablet) 6 mg PO BEDTIME PRN PRN Reason: Insomnia Last Admin: 10/09/23 01:01 Dose: 6 mg Documented By: HERON Omeprazole (Omeprazole 20 Mg Capsule.) 20 mg PO DAILY@0630 [facility] Last Admin: 10/09/23 05:29 Dose: 20 mg Documented By: HERON Ondansetron HCl (Ondansetron Odt 4 Mg Tab.Rapdis) 4 mg TRANSLINGU Q8H PRN PRN Reason: Nausea And Vomiting Last Admin: 09/06/23 23:09 Dose: 4 mg Documented By: EFRAIN Comments: Early admin ok per . Ondansetron HCl (Ondansetron Hcl 4 Mg/2 Ml Vial) 4 mg IVPUSH Q8H PRN PRN Reason: Nausea and Vomiting Last Admin: 09/20/23 11:55 Dose: 4 mg Documented By: ANEESH Oxycodone HCl (Oxycodone Hcl Immed Release 15 Mg Tablet) 15 mg PO Q4H PRN PRN Reason: Pain, Moderate(Pain Scale 4-6) Last Admin: 10/09/23 05:28 Dose: 15 mg Documented By: HERON Polyethylene Glycol (Polyethylene Glycol 3350 17 Gm Powd.Pack) 17 gm PO DAILY [facility] Last Admin: 10/08/23 08:05 Dose: Not Given Documented By: DEREJE Non-Admin Reason: Patient Refused Sertraline HCl (Sertraline Hcl 100 Mg Tablet) 100 mg PO DAILY [facility] Last Admin: 10/08/23 08:06 Dose: 100 mg Documented By: DEREJE Sucralfate (Sucralfate 1 Gm Tablet) 1 gm PO QIDACHS [facility] Last Admin: 10/08/23 21:35 Dose: 1 gm Documented By: HERON Vitamin D (Cholecalciferol (Vitamin D3) 25 Mcg Tablet) 50 mcg PO DAILY [facility] Last Admin: 10/08/23 08:05 Dose: 50 mcg Documented By: DEREJE Labs 10/09/23 08:10 10/09/23 08:10 Assessment and Plan (1) Cognitive impairment: Status: Acute Plan 68-year-old man admitted with weakness, failure to thrive, [place]ER[place]. Found in his home covered in feces and urine. Failure to thrive Physical therapy recommended long-term care patient does not have capacity to make medical decisions, healthcare proxy has been invoked Guardianship in process>hearing September 26, now working on [employer] application psych following as needed seroquel stopped per psych; avoid benzos labs 10/09/23 stable, check every 7 days FEDERICO on CKD stage 3. Creatinine trending down renal function up and down off and on Lasix, now on hold aldactone stopped nephrology following>check serologies (MIGUEL pending), urine studies wnl, continue to hold diuretics Pneumonia, possible viral. Resolved Chest CT showing diffuse ground-glass airspace opacity in the left upper lobe adjacent to the major fissure. RPP + for parainfluenza no sepsis Completed course of empiric ceftriaxone and doxycycline blood cultures negative to date Hemoptysis. Resolved Eliquis held for 7 days Eliquis resumed 5/10 Hyperkalemia. Resolved d/c potassium replacement d/c aldactone N/V/Abd pain. Resolved KUB 09/13 negative for obstructive but with stool burden bowel regimen given chronic narcotic use and iron supplementation. Chronic pain will continue home oxycodone 15 mg Q4hrs PCP said that they were weaning him down and he was currently at 90mg a day lidocaine patch to knees as needed encourage oob, discussed with nursing Normocytic anemia H/H stable,stool occult negative iron studies with low iron, normal TIBC, ferritin on low side continue iron supplementation. continue bowel regimen H/H stable pancytopenia No baseline for comparison US with no evidence of liver disease hematology consult pending - further work up pending improving ?due to recent viral illness Hypertension Continue amlodipine, hydralazine, coreg, clonidine (wean clonidine due to low HR) consider further reduction on meds based on BP Atrial fibrillation, paroxysmal HR controlled On Eliquis and carvedilol Hyperlipidemia continue statin CAD continue BB, statin, imdur Mental health Continue zoloft, wellbutrin JOSE ALEJANDRO not on cpap DVT prophylaxis - Luis Attending Dr. Casillas Full code Requires ongoing inpatient stay for process of guardianship and placement Quality Stroke Does the patient have a stroke diagnosis?: No VTE Prior VTE?: No VTE Risk Level:: Medical - moderate - high VTE Device Contraindication: Treatment Not Indicated VTE Drug Contraindication: N/A - Med Ordered
[2023-10-09] MEDS: Ferrous Sulfate 324 MG TABLET.DR PO ×2 (07:31→16:32)
[2023-10-09] MEDS: Sucralfate 1 GM TABLET PO ×4 (07:31→20:54)
[2023-10-09] MEDS: Docusate Sodium 100 MG CAPSULE PO ×2 (08:07→20:54)
[2023-10-09] MEDS: Cholecalciferol (Vitamin D3) 25 MCG TABLET 50 MCG PO (08:07)
[2023-10-09] MEDS: Cyanocobalamin (Vitamin B-12) 1,000 MCG TABLET 1000 MCG PO (08:07)
[2023-10-09] MEDS: Sertraline HCL 100 MG TABLET PO (08:07)
[2023-10-09] MEDS: buPROPion HCl XL 150 MG TAB.ER.24H PO (08:07)
[2023-10-09] MEDS: allopurinoL 100 MG TABLET PO (08:07)
[2023-10-09] MEDS: Clopidogrel Bisulfate 75 MG TABLET PO (08:07)
[2023-10-09] MEDS: Apixaban 5 MG TABLET PO ×2 (08:07→20:54)
[2023-10-09] MEDS: Isosorbide Mononitrate 60 MG TAB.ER.24H PO (08:07)
[2023-10-09] MEDS: Atorvastatin Calcium 40 MG TABLET PO (08:07)
[2023-10-09] MEDS: amLODIPine Besylate 5 MG TABLET PO (08:08)
[2023-10-09] MEDS: hydrALAZINE HCl 50 MG TABLET PO ×3 (08:08→20:53)
[2023-10-09] MEDS: carvediloL 12.5 MG TABLET PO ×2 (08:08→20:54)
[2023-10-09 08:33] LABS: Hematocrit 36.1 % (42.0-52.0); Hemoglobin 11.5 g/dl (14.0-18.0); Mean Corpuscular HGB Conc 31.9 g/dl (31.0-36.0); Mean Corpuscular Hemoglobin 28.3 pg (27.0-33.0); Mean Corpuscular Volume 88.9 fL (80.0-98.0); Mean Platelet Volume 10.1 fL (9.4-12.4); Platelet Count 121 X10*3/uL (160-400); Red Blood Count 4.06 X10*6/uL (4.60-5.80); Red Cell Distribution Width 18.5 % (11.0-16.0); White Blood Count 4.4 X10*3/uL (4.8-10.8)
[2023-10-09 08:48] LABS: Anion Gap 15 (12-20); Blood Urea Nitrogen 31 mg/dL (9-16); Calcium 9.8 mg/dL (8.4-10.2); Carbon Dioxide 24 mmol/L (22-29); Chloride 104 mmol/L (96-108); Estimated Glomerular Filt Rate 50; Glucose Random 111 mg/dL (60-115); Potassium 3.7 mmol/L (3.3-5.1); Sodium 139 mmol/L (135-145)
[2023-10-09] MEDS: cloNIDine HCL 0.1 MG TABLET PO (20:54)
[2023-10-10] MEDS: oxyCODONE HCl Immed Release 15 MG TABLET PO ×5 (03:28→21:02)
[2023-10-10 04:00] VITALS: BP 138/81; PULSE 58; RESP 18; TEMP 36.1; O2SAT 95
[2023-10-10 04:28] VITALS: RESP 17
[2023-10-10] MEDS: Omeprazole 20 MG CAPSULE.DR PO (05:30)
--- NOTE | 2023-10-10 07:26 | PC.NURSE ---
Dressings CDI, need to be changed tomorrow. 10/10
[2023-10-10] MEDS: Ferrous Sulfate 324 MG TABLET.DR PO ×2 (07:29→16:33)
[2023-10-10] MEDS: Sucralfate 1 GM TABLET PO ×4 (07:29→21:03)
[2023-10-10 08:00] VITALS: BP 132/60; PULSE 59; RESP 14; TEMP 36; O2SAT 96
[2023-10-10] MEDS: Sertraline HCL 100 MG TABLET PO (08:10)
[2023-10-10] MEDS: Clopidogrel Bisulfate 75 MG TABLET PO (08:10)
[2023-10-10] MEDS: allopurinoL 100 MG TABLET PO (08:10)
[2023-10-10] MEDS: Apixaban 5 MG TABLET PO ×2 (08:10→21:03)
[2023-10-10] MEDS: buPROPion HCl XL 150 MG TAB.ER.24H PO (08:10)
[2023-10-10] MEDS: carvediloL 12.5 MG TABLET PO ×2 (08:11→21:02)
[2023-10-10] MEDS: Cyanocobalamin (Vitamin B-12) 1,000 MCG TABLET 1000 MCG PO (08:11)
[2023-10-10] MEDS: hydrALAZINE HCl 50 MG TABLET PO ×3 (08:11→21:02)
[2023-10-10] MEDS: Atorvastatin Calcium 40 MG TABLET PO (08:11)
[2023-10-10] MEDS: amLODIPine Besylate 5 MG TABLET PO (08:11)
[2023-10-10] MEDS: Isosorbide Mononitrate 60 MG TAB.ER.24H PO (08:11)
[2023-10-10] MEDS: Cholecalciferol (Vitamin D3) 25 MCG TABLET 50 MCG PO (08:11)
[2023-10-10] MEDS: Docusate Sodium 100 MG CAPSULE PO ×2 (08:11→21:02)
--- NOTE | 2023-10-10 08:33 | P.PNIM_ITS ---
Subjective Subjective Date of Service: 10/10/23 Interval History: Seen and examined this morning Follow-up for placement No overnight events Review of Systems Review of Systems: Yes all other systems are reviewed and are negative Constitutional Constitutional: Denies chills and Denies fever(s) Physical Exam 2 Vital Signs: Vital Signs: Last Vital Signs Temp 96.8 F 10/10/23 08:00 Pulse 59 10/10/23 08:00 Resp 14 10/10/23 08:00 BP 132/60 10/10/23 08:00 Pulse Ox 96 10/10/23 08:00 O2 Del Method Room Air 10/10/23 08:00 O2 Flow Rate 2 09/18/23 14:35 BMI result Body Mass Index 20.5 alert and confused Objective Data Active Medications Acetaminophen (Acetaminophen 325 Mg Tablet) 650 mg PO Q6H PRN PRN Reason: Pain, Mild (Pain Scale 1-3) Last Admin: 09/29/23 14:57 Dose: 650 mg Documented By: CASEY Allopurinol (Allopurinol 100 Mg Tablet) 100 mg PO DAILY [facility] Last Admin: 10/10/23 08:10 Dose: 100 mg Documented By: DEREJE Amlodipine Besylate (Amlodipine Besylate 5 Mg Tablet) 5 mg PO DAILY [facility]; Protocol Last Admin: 10/10/23 08:11 Dose: 5 mg Documented By: DEREJE Apixaban (Apixaban 5 Mg Tablet) 5 mg PO BID [facility] Last Admin: 10/10/23 08:10 Dose: 5 mg Documented By: DEREJE Atorvastatin Calcium (Atorvastatin Calcium 40 Mg Tablet) 40 mg PO DAILY [facility] Last Admin: 10/10/23 08:11 Dose: 40 mg Documented By: DEREJE Benzonatate (Benzonatate 100 Mg Capsule) 200 mg PO TID PRN PRN Reason: Cough Last Admin: 10/07/23 11:43 Dose: 200 mg Documented By: DOBROB Bupropion HCl (Bupropion Hcl Xl 150 Mg Tab.Er.24h) 150 mg PO DAILY [facility] Last Admin: 10/10/23 08:10 Dose: 150 mg Documented By: DEREJE Carvedilol (Carvedilol 12.5 Mg Tablet) 12.5 mg PO BID [facility]; Protocol Last Admin: 10/10/23 08:11 Dose: 12.5 mg Documented By: DERJEE Clonidine HCl (Clonidine Hcl 0.1 Mg Tablet) 0.1 mg PO BEDTIME [facility]; Protocol Last Admin: 10/09/23 20:54 Dose: 0.1 mg Documented By: MIGUEL A Clopidogrel Bisulfate (Clopidogrel Bisulfate 75 Mg Tablet) 75 mg PO DAILY [facility] Last Admin: 10/10/23 08:10 Dose: 75 mg Documented By: DEREJE Cyanocobalamin (Cyanocobalamin (Vitamin B-12) 1,000 Mcg Tablet) 1,000 mcg PO DAILY [facility] Last Admin: 10/10/23 08:11 Dose: 1,000 mcg Documented By: DEREJE Docusate Sodium (Docusate Sodium 100 Mg Capsule) 100 mg PO BID [facility] Last Admin: 10/10/23 08:11 Dose: 100 mg Documented By: DEREJE Ferrous Sulfate (Ferrous Sulfate 324 Mg Tablet.) 324 mg PO BIDWM [facility] Last Admin: 10/10/23 07:29 Dose: 324 mg Documented By: DEREJE Hydralazine HCl (Hydralazine Hcl 50 Mg Tablet) 50 mg PO TID [facility]; Protocol Last Admin: 10/10/23 08:11 Dose: 50 mg Documented By: DEREJE Isosorbide Mononitrate (Isosorbide Mononitrate 60 Mg Tab.Er.24h) 60 mg PO DAILY [facility]; Protocol Last Admin: 10/10/23 08:11 Dose: 60 mg Documented By: DEREJE Melatonin (Melatonin 3 Mg Tablet) 6 mg PO BEDTIME PRN PRN Reason: Insomnia Last Admin: 10/09/23 23:46 Dose: 6 mg Documented By: MIGUEL A Omeprazole (Omeprazole 20 Mg Capsule.) 20 mg PO DAILY@0630 [facility] Last Admin: 10/10/23 05:30 Dose: 20 mg Documented By: DESTINI Ondansetron HCl (Ondansetron Odt 4 Mg Tab.Rapdis) 4 mg TRANSLINGU Q8H PRN PRN Reason: Nausea And Vomiting Last Admin: 09/06/23 23:09 Dose: 4 mg Documented By: EFRAIN Comments: Early admin ok per . Ondansetron HCl (Ondansetron Hcl 4 Mg/2 Ml Vial) 4 mg IVPUSH Q8H PRN PRN Reason: Nausea and Vomiting Last Admin: 09/20/23 11:55 Dose: 4 mg Documented By: ANEESH Oxycodone HCl (Oxycodone Hcl Immed Release 15 Mg Tablet) 15 mg PO Q4H PRN PRN Reason: Pain, Severe (Pain Scale 7-10) Last Admin: 10/10/23 07:29 Dose: 15 mg Documented By: DEREJE Polyethylene Glycol (Polyethylene Glycol 3350 17 Gm Powd.Pack) 17 gm PO DAILY [facility] Last Admin: 10/10/23 08:11 Dose: Not Given Documented By: DEREJE Non-Admin Reason: Patient Refused Sertraline HCl (Sertraline Hcl 100 Mg Tablet) 100 mg PO DAILY [facility] Last Admin: 10/10/23 08:10 Dose: 100 mg Documented By: DEREJE Sucralfate (Sucralfate 1 Gm Tablet) 1 gm PO QIDACHS [facility] Last Admin: 10/10/23 07:29 Dose: 1 gm Documented By: DEREJE Vitamin D (Cholecalciferol (Vitamin D3) 25 Mcg Tablet) 50 mcg PO DAILY [facility] Last Admin: 10/10/23 08:11 Dose: 50 mcg Documented By: DEREJE Labs 10/09/23 08:10 10/09/23 08:10 Labs: Laboratory Results - last 24 hr 10/09/23 08:10 MCV 88.9 MCH 28.3 MCHC 31.9 RDW 18.5 H Plt Count 121 L MPV 10.1 Absolute Nucleated RBC 0.000 Nucleated RBC % (auto) 0.0 Anion Gap 15 Estim Creat Clear Calc 48.0 Estimated GFR 50 Random Glucose 111 Calcium 9.8 D Assessment and Plan (1) Cognitive impairment: Status: Acute Plan 68-year-old man admitted with weakness, failure to thrive, FEDERICO. Found in his home covered in feces and urine. Failure to thrive Physical therapy recommended long-term care patient does not have capacity to make medical decisions, healthcare proxy has been invoked Guardianship in process>hearing September 26, now working on [employer] application psych following as needed seroquel stopped per psych; avoid benzos labs 10/09/23 stable, check every 7 days FEDERICO on CKD stage 3. Creatinine trending down renal function up and down off and on Lasix, now on hold aldactone stopped nephrology following>check serologies (MIGUEL pending), urine studies wnl, continue to hold diuretics Pneumonia, possible viral. Resolved Chest CT showing diffuse ground-glass airspace opacity in the left upper lobe adjacent to the major fissure. RPP + for parainfluenza no sepsis Completed course of empiric ceftriaxone and doxycycline blood cultures negative to date Hemoptysis. Resolved Eliquis held for 7 days Eliquis resumed 5/10 Hyperkalemia. Resolved d/c potassium replacement d/c aldactone N/V/Abd pain. Resolved KUB 09/13 negative for obstructive but with stool burden bowel regimen given chronic narcotic use and iron supplementation. Chronic pain will continue home oxycodone 15 mg Q4hrs PCP said that they were weaning him down and he was currently at 90mg a day lidocaine patch to knees as needed encourage oob, discussed with nursing Normocytic anemia H/H stable,stool occult negative iron studies with low iron, normal TIBC, ferritin on low side continue iron supplementation. continue bowel regimen H/H stable pancytopenia No baseline for comparison US with no evidence of liver disease hematology consult pending - further work up pending improving ?due to recent viral illness Hypertension Continue amlodipine, hydralazine, coreg, clonidine (wean clonidine due to low HR) consider further reduction on meds based on BP Atrial fibrillation, paroxysmal HR controlled On Eliquis and carvedilol Hyperlipidemia continue statin CAD continue BB, statin, imdur Mental health Continue zoloft, wellbutrin JOSE ALEJANDRO not on cpap DVT prophylaxis - Luis Attending Dr. Casillas Full code Requires ongoing inpatient stay for process of guardianship and placement Quality Stroke Does the patient have a stroke diagnosis?: No VTE Prior VTE?: No VTE Risk Level:: Medical - moderate - high VTE Device Contraindication: Treatment Not Indicated VTE Drug Contraindication: N/A - Med Ordered
--- NOTE | 2023-10-10 13:53 | MHC.CM.PN ---
PT CONTINUES TO WAIT FOR LTC PLACEMENT [facility] IS OFFERING PENDING [facility] ORDER IS IN PLACE
[2023-10-10 13:59] VITALS: BP 157/69; PULSE 57
[2023-10-10 15:49] VITALS: BP 149/91; PULSE 64; RESP 18; TEMP 36.3; O2SAT 96
[2023-10-10 19:33] VITALS: BP 170/92; PULSE 73; RESP 18; TEMP 36.3; O2SAT 96
[2023-10-10] MEDS: cloNIDine HCL 0.1 MG TABLET PO (21:03)
[2023-10-11] MEDS: oxyCODONE HCl Immed Release 15 MG TABLET PO ×4 (01:49→14:37)
[2023-10-11 03:53] VITALS: BP 138/74; PULSE 65; RESP 16; TEMP 36.1; O2SAT 96
[2023-10-11] MEDS: Omeprazole 20 MG CAPSULE.DR PO (06:15)
[2023-10-11 06:51] VITALS: BP 150/78; PULSE 69; RESP 18; TEMP 36.6; O2SAT 96
--- NOTE | 2023-10-11 07:14 | HO.PM.IMPN ---
Subjective Subjective Date of Service: 10/11/23 Interval History: Seen and examined this morning Follow-up for placement No overnight events Review of Systems Review of Systems: Yes all other systems are reviewed and are negative Constitutional Constitutional: Denies chills and Denies fever(s) Physical Exam Vital Signs: Vital Signs: Last Vital Signs Temp 98 F 10/11/23 06:51 Pulse 69 10/11/23 06:51 Resp 18 10/11/23 06:51 BP 150/78 H 10/11/23 06:51 Pulse Ox 96 10/11/23 06:51 O2 Del Method Room Air 10/11/23 06:51 O2 Flow Rate 2 09/18/23 14:35 BMI result Body Mass Index 20.5 Appearing in no acute distress Objective Data Active Medications Acetaminophen (Acetaminophen 325 Mg Tablet) 650 mg PO Q6H PRN PRN Reason: Pain, Mild (Pain Scale 1-3) Last Admin: 09/29/23 14:57 Dose: 650 mg Documented By: CASEY Allopurinol (Allopurinol 100 Mg Tablet) 100 mg PO DAILY [facility] Last Admin: 10/10/23 08:10 Dose: 100 mg Documented By: DEREJE Amlodipine Besylate (Amlodipine Besylate 5 Mg Tablet) 5 mg PO DAILY [facility]; Protocol Last Admin: 10/10/23 08:11 Dose: 5 mg Documented By: DEREJE Apixaban (Apixaban 5 Mg Tablet) 5 mg PO BID [facility] Last Admin: 10/10/23 21:03 Dose: 5 mg Documented By: LYSFrancesca Atorvastatin Calcium (Atorvastatin Calcium 40 Mg Tablet) 40 mg PO DAILY [facility] Last Admin: 10/10/23 08:11 Dose: 40 mg Documented By: DEREJE Benzonatate (Benzonatate 100 Mg Capsule) 200 mg PO TID PRN PRN Reason: Cough Last Admin: 10/07/23 11:43 Dose: 200 mg Documented By: DOBROB Bupropion HCl (Bupropion Hcl Xl 150 Mg Tab.Er.24h) 150 mg PO DAILY [facility] Last Admin: 10/10/23 08:10 Dose: 150 mg Documented By: DEREJE Carvedilol (Carvedilol 12.5 Mg Tablet) 12.5 mg PO BID [facility]; Protocol Last Admin: 10/10/23 21:02 Dose: 12.5 mg Documented By: HERON Clonidine HCl (Clonidine Hcl 0.1 Mg Tablet) 0.1 mg PO BEDTIME [facility]; Protocol Last Admin: 10/10/23 21:03 Dose: 0.1 mg Documented By: HERON Clopidogrel Bisulfate (Clopidogrel Bisulfate 75 Mg Tablet) 75 mg PO DAILY [facility] Last Admin: 10/10/23 08:10 Dose: 75 mg Documented By: DEREJE Cyanocobalamin (Cyanocobalamin (Vitamin B-12) 1,000 Mcg Tablet) 1,000 mcg PO DAILY [facility] Last Admin: 10/10/23 08:11 Dose: 1,000 mcg Documented By: DEREJE Docusate Sodium (Docusate Sodium 100 Mg Capsule) 100 mg PO BID [facility] Last Admin: 10/10/23 21:02 Dose: 100 mg Documented By: HERON Ferrous Sulfate (Ferrous Sulfate 324 Mg Tablet.) 324 mg PO BIDWM [facility] Last Admin: 10/10/23 16:33 Dose: 324 mg Documented By: DEREJE Hydralazine HCl (Hydralazine Hcl 50 Mg Tablet) 50 mg PO TID [facility]; Protocol Last Admin: 10/10/23 21:02 Dose: 50 mg Documented By: HERON Isosorbide Mononitrate (Isosorbide Mononitrate 60 Mg Tab.Er.24h) 60 mg PO DAILY [facility]; Protocol Last Admin: 10/10/23 08:11 Dose: 60 mg Documented By: DEREJE Melatonin (Melatonin 3 Mg Tablet) 6 mg PO BEDTIME PRN PRN Reason: Insomnia Last Admin: 10/09/23 23:46 Dose: 6 mg Documented By: MIGUEL A Omeprazole (Omeprazole 20 Mg Capsule.) 20 mg PO DAILY@0630 [facility] Last Admin: 10/11/23 06:15 Dose: 20 mg Documented By: HERON Ondansetron HCl (Ondansetron Odt 4 Mg Tab.Rapdis) 4 mg TRANSLINGU Q8H PRN PRN Reason: Nausea And Vomiting Last Admin: 09/06/23 23:09 Dose: 4 mg Documented By: EFRAIN Comments: Early admin ok per . Ondansetron HCl (Ondansetron Hcl 4 Mg/2 Ml Vial) 4 mg IVPUSH Q8H PRN PRN Reason: Nausea and Vomiting Last Admin: 09/20/23 11:55 Dose: 4 mg Documented By: ANEESH Oxycodone HCl (Oxycodone Hcl Immed Release 15 Mg Tablet) 15 mg PO Q4H PRN PRN Reason: Pain, Severe (Pain Scale 7-10) Last Admin: 10/11/23 06:15 Dose: 15 mg Documented By: HERON Polyethylene Glycol (Polyethylene Glycol 3350 17 Gm Powd.Pack) 17 gm PO DAILY [facility] Last Admin: 10/10/23 08:11 Dose: Not Given Documented By: DEREJE Non-Admin Reason: Patient Refused Sertraline HCl (Sertraline Hcl 100 Mg Tablet) 100 mg PO DAILY [facility] Last Admin: 10/10/23 08:10 Dose: 100 mg Documented By: DEREJE Sucralfate (Sucralfate 1 Gm Tablet) 1 gm PO QIDACHS [facility] Last Admin: 10/10/23 21:03 Dose: 1 gm Documented By: HERON Vitamin D (Cholecalciferol (Vitamin D3) 25 Mcg Tablet) 50 mcg PO DAILY [facility] Last Admin: 10/10/23 08:11 Dose: 50 mcg Documented By: DEREJE Labs 10/09/23 08:10 10/09/23 08:10 Assessment and Plan (1) Cognitive impairment: Status: Acute Plan 68-year-old man admitted with weakness, failure to thrive, FEDERICO. Found in his home covered in feces and urine. Failure to thrive Physical therapy recommended long-term care patient does not have capacity to make medical decisions, healthcare proxy has been invoked Guardianship in process>hearing September 26, now working on [employer] application psych following as needed seroquel stopped per psych; avoid benzos labs 10/09/23 stable, check every 7 days FEDERICO on CKD stage 3. Creatinine trending down renal function up and down off and on Lasix, now on hold aldactone stopped nephrology following>check serologies (MIGUEL pending), urine studies wnl, continue to hold diuretics Pneumonia, possible viral. Resolved Chest CT showing diffuse ground-glass airspace opacity in the left upper lobe adjacent to the major fissure. RPP + for parainfluenza no sepsis Completed course of empiric ceftriaxone and doxycycline blood cultures negative to date Hemoptysis. Resolved Eliquis held for 7 days Eliquis resumed /10 Hyperkalemia. Resolved d/c potassium replacement d/c aldactone N/V/Abd pain. Resolved KUB 09/13 negative for obstructive but with stool burden bowel regimen given chronic narcotic use and iron supplementation. Chronic pain will continue home oxycodone 15 mg Q4hrs PCP said that they were weaning him down and he was currently at 90mg a day lidocaine patch to knees as needed encourage oob, discussed with nursing Normocytic anemia H/H stable,stool occult negative iron studies with low iron, normal TIBC, ferritin on low side continue iron supplementation. continue bowel regimen H/H stable pancytopenia No baseline for comparison US with no evidence of liver disease hematology consult pending - further work up pending improving ?due to recent viral illness Hypertension Continue amlodipine, hydralazine, coreg, clonidine (wean clonidine due to low HR) consider further reduction on meds based on BP Atrial fibrillation, paroxysmal HR controlled On Eliquis and carvedilol Hyperlipidemia continue statin CAD continue BB, statin, imdur Mental health Continue zoloft, wellbutrin JOSE ALEJANDRO not on cpap DVT prophylaxis - Luis Attending Dr. Casillas Full code Requires ongoing inpatient stay for process of guardianship and placement Quality Stroke Does the patient have a stroke diagnosis?: No VTE Prior VTE?: No VTE Risk Level:: Medical - moderate - high VTE Device Contraindication: Treatment Not Indicated VTE Drug Contraindication: N/A - Med Ordered
[2023-10-11 07:36] VITALS: BP 150/78
[2023-10-11] MEDS: Clopidogrel Bisulfate 75 MG TABLET PO (07:36)
[2023-10-11] MEDS: allopurinoL 100 MG TABLET PO (07:36)
[2023-10-11] MEDS: buPROPion HCl XL 150 MG TAB.ER.24H PO (07:36)
[2023-10-11] MEDS: Sertraline HCL 100 MG TABLET PO (07:36)
[2023-10-11] MEDS: hydrALAZINE HCl 50 MG TABLET PO ×2 (07:36→14:37)
[2023-10-11] MEDS: Cholecalciferol (Vitamin D3) 25 MCG TABLET 50 MCG PO (07:36)
[2023-10-11 07:37] VITALS: BP 150/78; PULSE 69
[2023-10-11] MEDS: Isosorbide Mononitrate 60 MG TAB.ER.24H PO (07:37)
[2023-10-11] MEDS: Ferrous Sulfate 324 MG TABLET.DR PO ×2 (07:37→16:31)
[2023-10-11] MEDS: Sucralfate 1 GM TABLET PO ×3 (07:37→16:31)
[2023-10-11] MEDS: Docusate Sodium 100 MG CAPSULE PO (07:37)
[2023-10-11] MEDS: Apixaban 5 MG TABLET PO (07:37)
[2023-10-11] MEDS: Atorvastatin Calcium 40 MG TABLET PO (07:37)
[2023-10-11] MEDS: Cyanocobalamin (Vitamin B-12) 1,000 MCG TABLET 1000 MCG PO (07:37)
[2023-10-11] MEDS: amLODIPine Besylate 5 MG TABLET PO (07:37)
[2023-10-11] MEDS: carvediloL 12.5 MG TABLET PO (07:37)
[2023-10-11 15:20] VITALS: BP 150/88; PULSE 68; RESP 20; TEMP 36.2; O2SAT 95
--- NOTE | 2023-10-11 15:37 | PM.DS ---
DS: Providers Provider Date of Service: 10/11/23 Date of admission: 09/07/23 14:58 Primary care physician: Hannah Garcia NP Consults: 09/06/23 18:47 Consult to Psychiatry Routine Consulting Provider: Psych Covering Reason for consultation: to determine if patient has capacity 09/07/23 16:40 Consult to Wound Care Routine Reason for consultation: lateral maleolus, right 09/08/23 06:23 Consult to Wound Care Routine Reason for consultation: pressure ulcers Has provider been notified: Yes 09/15/23 11:38 Consult to Hematology / Oncology Routine Consulting Provider: Elenita Sutherland Reason for consultation: pancytopenia Has provider been notified: No 09/17/23 07:50 Consult to Psychiatry Routine Consulting Provider: Psych Covering Reason for consultation: cognitive impairment; labile mood; ?med recs/adjustment Has provider been notified: No 09/26/23 07:06 Consult to Nephrology Routine Consulting Provider: [facility] Reason for consultation: federico on ckd DS: Diagnosis Discharge Diagnosis (1) Cognitive impairment: Status: Acute DS: Summary Hospital Course Hospital Course: 68 year old man with a history of atrial fib on Eliquis, CKD, CVA, depression, Gout, and HTN presenting to the emergency department today with weakness. Patient states that he lives at home with his grandson however, today, he was unable to get up so he shouted for help and the walking by erento heard him. EMS states that the patient was found lying in bed covered in his own feces and urine. PD states that the patient's house has been officially condemned. Patient reports he has not been able to ambulate well for more than a year and only leaves his house for doctor's appointments. He is mainly in a sitting position and his grandson will bring him food. Patient was alert but only oriented to self and place. He denied fever, chills, nausea, vomiting. Reported occasional diarrhea. Denied chest pain, shortness for breath, blurred vision, headache, syncope. In the ER, his creatinine was 1.46, total bili 1.7. Plan was to have patient placed but when labs were checked it was noted that the patient's H&H had dropped. Stool occult was negative, no obvious bleeding. We will admit for FEDERICO, anemia and failure to thrive. 68-year-old man treated for failure to thrive. He was seen by Physical therapy with recommendation for short-term/long-term rehab patient was also seen by the psychiatric team and found to have no medical capacity and unable to make medical decisions on his own. He was initially started on Seroquel and a benzodiazepine but that was since discontinued and patient has done well off of them. He had some acute kidney injury with a history of CKD stage 3 he had been on and off Lasix but this seemed to be affecting his kidneys Lasix was stopped as well as Aldactone. He was seen evaluated by Nephrology also with recommendation to hold diuretics. He was treated for viral pneumonia and parainfluenza and completed a course of Rocephin and doxycycline. Blood cultures have remained negative to date. He had an episode of hemoptysis in his Eliquis was held for 7 days but was resumed on 09/23/2023. At 1 time he had some abdominal pain, had a KUB on 09/14/2023 that was negative for obstruction but did show stool burden patient has been on a good bowel regimen and has been having regular bowel movements. Chronic pain. Patient is on 15 mg every 4 hours. Total 90 mg daily of oxycodone. His primary care provider has been attempting to wean him down, he should follow-up with her for adjustment of these medications. He had been using lidocaine patches for his knees but stopped using them because he said the day at work Normocytic anemia. H&H remained stable during hospitalization he was shown to have a low iron was started on iron supplementation Pancytopenia had no baseline to compare, ultrasound was negative for liver disease. Improvement shown. Hypertension. Continue amlodipine, hydralazine, Coreg, clonidine Atrial fibrillation, paroxysmal. Heart rate controlled. Continue Eliquis and carvedilol Hyperlipidemia. Continue statin Coronary artery disease. Continue beta-amy statin and Imdur Mental health. Continue Zoloft and Wellbutrin Broken front tooth, Broke today while eating, will need dental care and likely tooth to be pulled. Recommendations for wound care: 1. Turn and Reposition every 2 hours and as needed for patient comfort.? Use pillows or wedges to support off loading positions. 2. Off Load all bony prominences with use of pillows and heel boots if needed.? Apply Preventative foams where needed. ? 3. Monitor for incontinence and moisture control, use barrier creams when needed for prevention and treatment. 4. Provide adequate and supplemental nutrition.? 5. Order or Continue low air loss mattress. 6. When applicable maintain blood glucose levels per Providers order. 7. Right ankle and hip - Routine cleansing. Apply skin prep allow to dry. Cover with foam dressing peel back and assess Q shift and change every 3 days. Anticipate less than 30 day stay Time Attestation Discharge Coordination Time (in mins): 50 Quality: Safe Use of Opioids Does Pt have an Active Cancer Diagnosis on the Problem List?: No Quality: Stroke Does the patient have a stroke diagnosis?: No Physical Exam Vital Signs: Vital Signs: Last Vital Signs Temp 97.1 F 10/11/23 15:20 Pulse 68 10/11/23 15:20 Resp 20 10/11/23 15:20 BP 150/88 H 10/11/23 15:20 Pulse Ox 95 10/11/23 15:20 O2 Del Method Room Air 10/11/23 15:20 O2 Flow Rate 2 09/18/23 14:35 BMI result Body Mass Index 20.5 Appearing in no acute distress head is normocephalic atraumatic eyes pupils are PERRLA sclera is anicteric mouth throat mucous membranes are intact and moist neck is supple no lymphadenopathy, no JVD noted lung sounds are clear to auscultation heart regular rate rhythm, clear S1, S2 positive bowel sounds, abdomen is soft, nontender neuro patient is alert x3, no focal deficits, mostly non ambulatory Discharge Plan Discharge Anticipated Discharge Date/Time: 10/11/23 15:27 Patient Disposition: Xfer Inpatient Rehab Fac Discharge Diagnosis: Failure to thrive FEDERICO on CKD stage 3 Pneumonia Hemoptysis Hyperkalemia Abdominal pain broken front tooth Referrals: [facility] [Outside] - 1 Week Hannah Garcia NP [Primary Care Provider] - 3 Weeks (Telehealth appointment scheduled for 09/29/23 @ 08:15am) Discharge Medications: New lidocaine HCl [Lidocaine Viscous] 2 % solution 1 appl mucous membrane BID PRN (Reason: tooth pain ) Qty: 100 0RF Continued furosemide 40 mg tablet 40 mg PO BID atorvastatin 40 mg tablet 40 mg PO DAILY clonidine HCl 0.1 mg tablet 0.1 mg PO TID carvedilol 12.5 mg tablet 12.5 mg PO BID sucralfate 1 gram tablet 1 g PO QIDACHS ondansetron HCl 4 mg tablet 4 mg PO Q8H PRN (Reason: Nausea And Vomiting) sertraline 100 mg tablet 100 mg PO DAILY cyanocobalamin (vitamin B-12) 1,000 mcg tablet 1,000 mcg PO DAILY potassium chloride 10 mEq tablet extended release 10 meq PO BEDTIME potassium chloride 10 mEq tablet extended release 20 meq PO DAILY clopidogrel 75 mg tablet 75 mg PO DAILY amlodipine 5 mg tablet 5 mg PO DAILY allopurinol 100 mg tablet 100 mg PO DAILY spironolactone 25 mg tablet 25 mg PO DAILY isosorbide mononitrate 60 mg tablet extended release 24 hr 60 mg PO QAM pantoprazole 40 mg tablet,delayed release (DR/EC) 40 mg PO DAILY hydralazine 50 mg tablet 50 mg PO TID bupropion HCl 150 mg tablet extended release 24 hr 150 mg PO DAILY cholecalciferol (vitamin D3) 1,250 mcg (50,000 unit) capsule 1,250 mcg PO QWEEK Eliquis 5 mg tablet 5 mg PO BID oxycodone 15 mg tablet 15 mg PO Q4H PRN (Reason: pain) Qty: 12 0RF Discharge Orders: Discharge Order (Routine); Ordered 10/11/23 Ordered By: Evelia Ricketts Diet: Advance to usual diet Activity on Discharge: As tolerated Stand Alone Forms: Patient Portal Discharge page Print Language: Setswana Care Plan Goals: Transfer to short-term rehab for physical therapy Recommendations for wound care: 1. Turn and Reposition every 2 hours and as needed for patient comfort.? Use pillows or wedges to support off loading positions. 2. Off Load all bony prominences with use of pillows and heel boots if needed.? Apply Preventative foams where needed. ? 3. Monitor for incontinence and moisture control, use barrier creams when needed for prevention and treatment. 4. Provide adequate and supplemental nutrition.? 5. Order or Continue low air loss mattress. 6. When applicable maintain blood glucose levels per Providers order. 7. Right ankle and hip - Routine cleansing. Apply skin prep allow to dry. Cover with foam dressing peel back and assess Q shift and change every 3 days. Health Concerns: Failure to thrive FEDERICO on CKD stage 3 Pneumonia Hemoptysis Hyperkalemia Abdominal pain broken front tooth Plan of Treatment: Take all medications as prescribed Follow up with primary care provider as needed Assessment: See discharge summary
--- NOTE | 2023-10-11 16:00 | MHC.CM.PN ---
IMM 10/11/23 Patient has been accepted at [facility]. The MDS is complete. It has been faxed to [facility] ATTN: Risa. Transport is booked for 5:30pm sisal picker. D
--- NOTE | 2023-10-11 16:02 | PM.EVENT ---
Event Note Date of Service: 10/11/23 Event Note: Mr. Ballesteros is a 68 year-old male with dementia. He had been started on very low dose of seroquel for combative behaviors, however, not displaying any nor needing as PRN medication. Therefore, plan to d/c seroquel. Time Spent With Patient Time: Total time managing care of this patient today ____ minutes.
[2023-10-11] MEDS: Lidocaine HCl Viscous 2 % 15 ML SOLUTION MUCOUS MEM (16:30)
== END 2023-10-11 18:20 | DRG 682 ==
LOC: HO.ED 09-07 10:54 → HO.EDOVER 09-07 15:08 → HO.S3 09-08 04:17
PROVIDERS: Internal Medicine; Internal Medicine Hypertension Specialist; Physician Assistant; Physician Assistant Medical; Admitting Provider Nurse Practitioner Acute Care; Emergency Provider Emergency Medicine; PCP Nurse Practitioner Adult Health; Visit Provider Nurse Practitioner Acute Care
DX: N17.0 Acute kidney failure with tubular necrosis (principal); I50.33 Acute on chronic diastolic (congestive) heart failure; J12.9 Viral pneumonia, unspecified; I13.0 Hypertensive heart and chronic kidney disease with heart failure and stage 1 through stage 4 chronic kidney disease, or unspecified chronic kidney disease; D61.818 Other pancytopenia; R04.2 Hemoptysis; I25.10 Atherosclerotic heart disease of native coronary artery without angina pectoris; E86.0 Dehydration; E78.5 Hyperlipidemia, unspecified; R62.7 Adult failure to thrive; I27.29 Other secondary pulmonary hypertension; I50.813 Acute on chronic right heart failure; I07.1 Rheumatic tricuspid insufficiency; B34.8 Other viral infections of unspecified site; E87.5 Hyperkalemia; G89.29 Other chronic pain; D50.9 Iron deficiency anemia, unspecified; Z68.20 Body mass index [BMI] 20.0-20.9, adult; L89.512 Pressure ulcer of right ankle, stage 2; L89.216 Pressure-induced deep tissue damage of right hip; G47.33 Obstructive sleep apnea (adult) (pediatric); N18.30 Chronic kidney disease, stage 3 unspecified; I48.0 Paroxysmal atrial fibrillation; Z20.822 Contact with and (suspected) exposure to COVID-19; Z75.1 Person awaiting admission to adequate facility elsewhere; Z95.1 Presence of aortocoronary bypass graft; Z79.01 Long term (current) use of anticoagulants; Z79.899 Other long term (current) drug therapy
CPT/HCPCS: 0241U; 36415; 70450; 71045; 71250; 74018; 76705; 80048; 80053; 81001; 81003; 82272; 82550; 82570; 82607; 82728; 82746; 82784; 83010; 83520; 83540; 83605; 83615; 83735; 83880; 84145; 84156; 84165; 84300; 84484; 85025; 85027; 85045; 85610; 85730; 86021; 86038; 86334; 86850; 86900; 86901; 87040; 87633; 93005; 93306; 93356; 97162; 97166; 97530; 99285; J0696; J1885; J1940; J2270; J2405

== ENCOUNTER → 2023-09-06 10:43 | Outpatient (BNV) | payer MEDICARE, SELFPAY | PROVIDERS: Emergency Provider Emergency Medicine; Visit Provider Internal Medicine Cardiovascular Disease | DX: I48.91 Unspecified atrial fibrillation (principal) | CPT/HCPCS: 93010 ==

== ENCOUNTER 2023-09-07 14:58 | Outpatient (BNV) | payer MEDICARE, SELFPAY | END 2023-09-13 13:42 | PROVIDERS: Admitting Provider Nurse Practitioner Acute Care; Emergency Provider Emergency Medicine; PCP Nurse Practitioner Adult Health; Visit Provider Internal Medicine | DX: I48.91 Unspecified atrial fibrillation (principal); I45.81 Long QT syndrome | CPT/HCPCS: 93010 ==

== ENCOUNTER 2023-09-07 14:58 | Outpatient (BNV) | payer MEDICARE, SELFPAY | END 2023-09-14 12:57 | PROVIDERS: Admitting Provider Nurse Practitioner Acute Care; Emergency Provider Emergency Medicine; PCP Nurse Practitioner Adult Health; Visit Provider Internal Medicine | DX: I36.1 Nonrheumatic tricuspid (valve) insufficiency (principal); I35.8 Other nonrheumatic aortic valve disorders; I34.81 Nonrheumatic mitral (valve) annulus calcification; I27.20 Pulmonary hypertension, unspecified | CPT/HCPCS: 93306; 93356 ==

== ENCOUNTER 2023-09-07 14:58 | Outpatient (BNV) | payer MEDICARE, SELFPAY | END 2023-09-16 16:14 | PROVIDERS: Admitting Provider Nurse Practitioner Acute Care; Emergency Provider Emergency Medicine; PCP Nurse Practitioner Adult Health; Visit Provider Internal Medicine | DX: I48.91 Unspecified atrial fibrillation (principal) | CPT/HCPCS: 93010 ==

== ENCOUNTER → 2023-09-07 14:58 | Outpatient (BNV) | payer MEDICARE, SELFPAY | PROVIDERS: Admitting Provider Nurse Practitioner Acute Care; Emergency Provider Emergency Medicine; PCP Nurse Practitioner Adult Health; Visit Provider Internal Medicine Hypertension Specialist | DX: N17.0 Acute kidney failure with tubular necrosis (principal) | CPT/HCPCS: 99222; 99232 ==

== ENCOUNTER → 2023-09-07 14:58 | Outpatient (BNV) | payer MEDICARE, SELFPAY | PROVIDERS: Admitting Provider Nurse Practitioner Acute Care; Emergency Provider Emergency Medicine; PCP Nurse Practitioner Adult Health; Visit Provider Social Worker | DX: F03.90 Unspecified dementia, unspecified severity, without behavioral disturbance, psychotic disturbance, mood disturbance, and anxiety (principal); B34.8 Other viral infections of unspecified site; D64.9 Anemia, unspecified; R53.1 Weakness | CPT/HCPCS: 99232; 99233; 99499 ==

== ENCOUNTER → 2023-09-07 14:58 | Outpatient (BNV) | payer MEDICARE, SELFPAY | PROVIDERS: Admitting Provider Nurse Practitioner Acute Care; Emergency Provider Emergency Medicine; PCP Nurse Practitioner Adult Health; Visit Provider Nurse Practitioner Acute Care | DX: R41.89 Other symptoms and signs involving cognitive functions and awareness (principal) | CPT/HCPCS: 99223; 99231; 99232; 99233; 99239; 99499 ==

== ENCOUNTER → 2023-09-07 14:58 | Outpatient (BNV) | payer MEDICARE, SELFPAY | PROVIDERS: Admitting Provider Nurse Practitioner Acute Care; Emergency Provider Emergency Medicine; PCP Nurse Practitioner Adult Health; Visit Provider Internal Medicine | DX: D64.9 Anemia, unspecified (principal) | CPT/HCPCS: 99222; 99231 ==

== ENCOUNTER 2023-11-18 11:40 | Inpatient (IN) | payer MEDICARE, SELFPAY ==
--- NOTE | ~2023-11-18 | CT_ITS ---
EXAMINATION: CT HEAD WITHOUT CONTRAST CT CERVICAL SPINE WITHOUT CONTRAST CLINICAL INFORMATION: Status post fall with neck and hand pain COMPARISON: CT head from 09/09/2023 TECHNIQUE: CT of the head and cervical spine were performed without intravenous contrast. Multiplanar reformats were rendered and reviewed. This CT examination was performed using dose optimization techniques as appropriate, variously including the following: *Automated exposure control *Adjustment of mA and/or kV according to patient size (this includes techniques or standardized protocols for targeted exams where dose is matched to indication/reason for exam; i.e. extremities or head) *Use of iterative reconstruction technique DLP: 529.58 mGy-, for the cervical spine and 617.39 mGy-cm per the brain FINDINGS: CT head: No intracranial hemorrhage, large infarction, or mass lesion is seen. There is chronic anterior encephalomalacia in the right occipital lobe consistent with remote occipital stroke. No extra-axial collection is appreciated. There are patchy periventricular white matter changes as a sequela of microangiopathy. Ventricles, sulci and cisterns are prominent due to involutional changes The visualized paranasal sinuses and mastoid air cells are clear CT cervical spine: The cervical alignment is normal. The craniocervical junction is normal. The vertebral body heights are maintained. There are multilevel changes of intervertebral discs such is narrowing cough C3-C4, C4-C5, C5-C6, C6-C7 and C7-T1 with grade 1 anterior listhesis of C2 over C3 and C7 over T1. There is uncovertebral osteophytosis. The paraspinal soft tissues are within normal limits. The partially imaged lung apices are clear. CT/CT cervical spine wo IV con IMPRESSION: CT HEAD: 1. No acute intracranial finding. 2. Chronic changes of remote right occipital stroke, sequela of microangiopathy and global volume loss. CT CERVICAL SPINE: 1. No acute cervical spine fracture or traumatic malalignment identified. 2. Multilevel degenerative changes.
[2023-11-18 11:45] VITALS: BP 121/98; PULSE 88; BMI 22.5
--- NOTE | 2023-11-18 11:49 | ECG_ITS ---
Test Reason : fall Blood Pressure : / mmHG Vent. Rate : 057 BPM Atrial Rate : 000 BPM P-R Int : 000 ms QRS Dur : 096 ms QT Int : 470 ms P-R-T Axes : 000 031 065 degrees QTc Int : 457 ms Atrial fibrillation with slow ventricular response Abnormal ECG When compared with ECG of 16-SEP-2023 16:11, No significant changes seen Referred By: Mame Valdovinos Electronically Signed By:JACK SOSA
[2023-11-18 12:00] VITALS: BP 105/62; PULSE 55; RESP 10; TEMP 36.8; O2SAT 95
--- OUTSIDE RECORDS SUMMARY | 2023-11-18 12:32 | XMS_ITS | Continuity of Care Document ---
Author Organization [facility] Address [address] [place] [id number]- Care Team Providers Care Real Estate Legal Secretary Name Role Phone Radha ODONNELL, Hannah Primary Care Physician [place] [facility] [place] 08/23/23 - 10/01/[address] [id number] Attending Physician: Hannah Garcia NP Admitting Physician: Hannah Garcia NP Referring Physician: Hannah Garcia NP Allergies, Adverse Reactions, Alerts Substance Reaction Severity Status morphine sick to stomach Active Immunizations Given and Recorded Vaccine Date Status Refusal Reason SARS-CoV-2 (COVID-19) Ad26 vaccine 05/05/21 Given influenza virus vaccine, inactivated 06/16/14 Perry rded influenza virus vaccine, inactivated 02/04/11 Give n pneumococcal 23-valent vaccine 05/15/10 Given tetanus-diphtheria toxoids (Td) 02/25/06 Given Medications allopurinol 100 mg oral tablet 1, tablet, By Mouth, Daily, # 28 tablet, Refills 5, Maintenance, 09/22/23 19:43:00 EDT, Route to Pharmacy Electronically, [id number], 183, cm, 09/08/23 10:09:00 EDT, Height Start Date: 09/22/23 Status: Ordered amLODIPine 5 mg oral tablet 1 tablet, By Mouth, Daily, # 28 tablet, 5 Refills, Maintenance, 09/22/23 19:43:00 EDT, [id number], 183, cm, 09/08/23 10:09:00 EDT, Height Start Date: 09/22/23 Status: Ordered atorvastatin 40 mg oral tablet 1 tablet, By Mouth, Daily, # 90 tablet, 1 Refills, Maintenance, 07/01/23 15:53:00 EST, [facility]/pharmacy#[id number], 183, cm, 05/10/23 11:59:00 EST, Height, 71.3, kg, 08/08/21 0:23:00 EDT, Dry Weight Start Date: 07/01/23 Status: Ordered ATORVASTATIN 40 MG TABLET ATORVASTATIN 40 MG TABLET, See Instructions, # 28 tablet, 2 Refills, Maintenance, TAKE 1 TABLET BY MOUTH EVERY DAY, 05/26/23 16:49:00 EST, 183, cm, 05/10/23 11:59:00 EST, Height, 71.3, kg, 08/08/21 0:23:00 EDT, Dry Weight Start Date: 05/26/23 Status: Ordered buPROPion 150 mg/24 hours (XL) oral tablet, extended release 1 tablet, By Mouth, Daily, # 90 tablet, 0 Refills, Maintenance, 09/20/23 14:28:00 EDT, [facility]/pharmacy#[id number], 1 tablet By Mouth Daily,x90 days, 183, cm, 09/08/23 10:09:00 EDT, Height Start Date: 09/20/23 Stop Date: 12/19/23 Status: Ordered carvedilol 12.5 mg oral tablet 1, tablet, By Mouth, 2 times a day, # 56 tablet, Refills 5, Maintenance, 09/22/23 19:44:00 EDT, Route to Pharmacy Electronically, [id number], 183, cm, 09/08/23 10:09:00 EDT, Height Start Date: 09/22/23 Status: Ordered cholecalciferol 50,000 intl units oral capsule 1 capsule = 50,000 International_Units, By Mouth, Every week, # 13 capsule, 3 Refills, Maintenance,03/19/23 15:28:00 EDT, Capsule, [facility]/pharmacy #[id number], Partial fill upon patient request if the prescription is for a schedule II opioid drug., 183, cm, 0... Start Date: 03/19/23 Stop Date: 03/13/24 Status: Ordered cholecalciferol 50,000 intl units oral capsule 1 capsule = 50,000 International_Units, By Mouth, Every 7 days, # 13 capsule, 3 Refills, Maintenance, 03/20/23 8:29:00 EST, Capsule, [facility] #[id number], Partial fill upon patient request, 183, cm, 10/08/22 16:18:00 EDT, Height, 71.3, kg, 08/08/21 0:23... Start Date: 03/20/23 Stop Date: 03/14/24 Status: Ordered cloNIDine 0.1 mg oral tablet 1, tablet, By Mouth, 3 times a day, # 84 tablet, Refills 5, Maintenance, 09/22/23 19:45:00 EDT, Route to Pharmacy Electronically, [id number], 183, cm, 09/08/23 10:09:00 EDT, Height Start Date: 09/22/23 Status: Ordered clopidogrel 75 mg oral tablet 1, tablet, By Mouth, Daily, # 28 tablet, Refills 5, Tot. Refills 5, Maintenance, 06/08/23 14:08:00 EST, Route to Pharmacy Electronically, [facility]/pharmacy #[id number], 183, cm, 05/10/23 11:59:00 EST, Height, 71.3, kg, 08/08/21 0:23:00 EDT, Dry Weight Start Date: 06/08/23 Status: Ordered [facility] B-12 1,000 MCG TABLET [facility] B-12 1,000 MCG TABLET, 1, tablet, By Mouth, Daily, # 28 tablet, 0 Refills, Maintenance, 10/29/22 9:23:00 EDT, 183, cm, 10/08/22 16:18:00 EDT, Height, 71.3, kg, 08/08/21 0:23:00 EDT, Dry Weight Start Date: 10/29/22 Status: Ordered Eliquis 5 mg oral tablet 1 tablet, By Mouth, 2 times a day, # 56 tablet, 6 Refills, [id number], 183, cm, 08/12/21 14:20:00 EDT, Height, 71.3, kg, 08/08/21 0:23:00 EDT, Dry Weight Start Date: 09/26/21 Status: Ordered Eliquis 5 mg oral tablet See Instructions, TAKE 1 TABLET BY MOUTH TWICE A DAY, # 56 tablet, 6 Refills, Maintenance, 06/07/2409:23:00 EST, [facility]/pharmacy #[id number], 183, cm, 05/10/23 11:59:00 EST, Height, 71.3, kg, 08/08/21 0:23:00 EDT, Dry Weight Start Date: 06/07/23 Status: Ordered furosemide 40 mg oral tablet 1, tablet, By Mouth, 2 times a day, # 168 tablet, Refills 1, Tot. Refills 1, Maintenance, 06/30/23 12:20:00 EST, Route to Pharmacy Electronically, [facility]/pharmacy #[id number], 183, cm, 05/10/23 11:59:00 EST, Height, 71.3, kg, 08/08/21 0:23:00 EDT, Dry Weight Start Date: 06/30/23 Stop Date: 12/15/23 Status: Ordered FUROSEMIDE 40 MG TABLET FUROSEMIDE 40 MG TABLET, 1, tablet, By Mouth, 2 times a day, # 56 tablet, 2 Refills, Maintenance, 01/09/23 7:24:00 EDT, 183, cm, 10/08/22 16:18:00 EDT, Height, 71.3, kg, 08/08/21 0:23:00 EDT, Dry Weight Start Date: 01/09/23 Status: Ordered hydrALAZINE 50 mg oral tablet 1 tablet, By Mouth, 3 times a day, # 84 tablet, 5 Refills, Maintenance, 09/22/23 19:45:00 EDT, [id number], 183, cm, 09/08/23 10:09:00 EDT, Height Start Date: 09/22/23 Status: Ordered isosorbide mononitrate 60 mg oral tablet, extended release 1 tablet, By Mouth, Daily in AM, # 90 tablet, 0 Refills, Maintenance, 09/20/23 14:28:00 EDT, [facility]/pharmacy #[id number], 183, cm, 09/08/23 10:09:00 EDT, Height Start Date: 09/20/23 Stop Date: 12/19/23 Status: Ordered Mylanta Maximum Strength oral suspension 5 mL, By Mouth, 4 times a day, PRN for control of stomach acid, # 200 mL, 1 Refills, Maintenance, 08/12/21 13:46:00 EDT, Suspension, [facility]/pharmacy #[id number], Partial fill upon patient request if the prescription is for a schedule II opioid drug., 5 mL By M... Start Date: 08/12/21 Status: Ordered Narcan 4 mg/0.1 mL nasal spray = 4 mg, Nares, Both, Once, may repeat every 2 to 3 minutes until patient responds, # 1 each, 0 Refills, Soft Stop, 05/14/23 10:41:00 EST, [facility]/pharmacy #[id number], Partial fill upon patient request if the prescription is for a schedule II opioid drug., 183,... Start Date: 05/14/23 Status: Ordered nitroglycerin 0.4 mg sublingual tablet 1 tablet = 0.4 mg, Sublingual, Every 5 minutes, PRN Chest Pain, # 25 tablet, 3 Refills, Maintenance, 08/24/19 15:40:00 EDT, [facility]/pharmacy #[id number], 183, cm, 05/25/19 15:06:00 EST, Height, 88.3, kg, 08/31/17 3:30:00 EDT, Dry Weight Start Date: 08/24/19 Stop Date: 12/22/19 Status: Ordered oxyCODONE 15 mg oral tablet 1 tablet = 15 mg, By Mouth, Every 4 hours, PRN as needed for pain, # 90 tablet, 0 Refills, Maintenance, 08/24/23 7:27:00 EDT, Tablet, [facility]/pharmacy #[id number], Partial fill upon patient request if the prescription is for a schedule II opioid drug., 183, cm,... Start Date: 08/24/23 Stop Date: 08/31/23 Status: Ordered pantoprazole 40 mg oral delayed release tablet 1 tablet, By Mouth, Daily, # 28 tablet, 4 Refills, Maintenance, 06/24/23 7:44:00 EST, 183, cm, 05/10/23 11:59:00 EST, Height, 71.3, kg, 08/08/21 0:23:00 EDT, Dry Weight Start Date: 06/24/23 Status: Ordered Potassium Chloride (Lco-[id number]-Qeu 10) 10 mEq oral tablet, extended release See Instructions, TAKE 2 TABLETS BY MOUTH EVERY MORNING AND TAKE 1 TABLET EVERY EVENING, # 270 tablet, 1 Refills, Maintenance, 07/01/23 15:52:00 EST, [id number], 183, cm, 05/10/23 11:59:00 EST, Height, 71.3, kg, 08/08/21 0:23:00 EDT, Dry Weight Start Date: 07/01/23 Status: Ordered sertraline 100 mg oral tablet 1 tablet, By Mouth, Daily, # 84 tablet, 0 Refills, Maintenance, 09/01/23 11:58:00 EDT, [facility]/pharmacy#[id number], 183, cm, 05/10/23 11:59:00 EST, Height Start Date: 09/01/23 Stop Date: 11/24/23 Status: Ordered sertraline 100 mg oral tablet See Instructions, TAKE 1 TABLET BY MOUTH EVERY DAY, # 28 tablet, 5 Refills, Maintenance, 11/30/22 15:39:00 EDT, [id number], 183, cm, 10/08/22 16:18:00 EDT, Height, 71.3, kg, 08/08/21 0:23:00 EDT, Dry Weight Start Date: 11/30/22 Status: Ordered spironolactone 25 mg oral tablet 1, tablet, By Mouth, Daily, # 28 tablet, Refills 4, Maintenance, 06/24/23 7:44:00 EST, Route to Pharmacy Electronically, [id number], 183, cm, 05/10/23 11:59:00 EST, Height, 71.3, kg, 08/08/21 0:23:00 EDT, Dry Weight Start Date: 06/24/23 Status: Ordered sucralfate 1 gm oral tablet 1, tablet, By Mouth, 3 times a day before meals, AND BEDTIME., # 112 tablet, Refills 5, Maintenance, 02/04/23 16:32:00 EDT, Route to Pharmacy Electronically, [id number], 183, cm, 10/08/22 16:18:00 EDT, Height, 71.3, kg, 08/08/21 0:23:00 EDT, Dry... Start Date: 02/04/23 Status: Ordered Vitamin B-12 1000 mcg oral tablet 1, tablet, By Mouth, Daily, # 28 tablet, Refills 11, Tot. Refills 11, Maintenance, 04/21/23 18:37:00 EST, Route to Pharmacy Electronically, [facility]/pharmacy #[id number], 183, cm, 03/28/23 11:43:00 EST, Height,71.3, kg, 08/08/21 0:23:00 EDT, Dry Weight Start Date: 04/21/23 Stop Date: 03/22/24 Status: Ordered Problem List Condition Confirmation Course Effective Dates Status H ealth Status Informant Aortic aneurysm of unspecified site without mention of rupture 1 Confirmed Active Atrial fibrillation Confirmed Active CVA (cerebral infarction) Confirmed Active Chronic kidney disease, stage 3b 2 Confirmed Active Chronic pain syndrome Confirmed Active Depression Confirmed Active Gout Confirmed Active Use of opiates for therapeutic purposes Confirmed Active S/P CABG (coronary artery bypass graft) Confirmed Active Status post coronary artery bypass grafting 3 Confirmed 07/15/10 Active Hyperlipidemia Confirmed Active Hypertension, renal disease Confirmed Active Knee pain Confirmed Active 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 Confirmed Active OA (osteoarthritis) of knee Confirmed Active Obstructive sleep apnea not on CPAP 4 Confirmed Active Pain in Joint Involving Shoulder Region Confirmed Active Shoulder pain Confirmed Active 1infrarenal 2016 2Per chart review meets GFR criteria 3On 07/15/2010 underwent coronary artery bypass grafting x4 with left internal mammary anastomosed to the left anterior descending, the saphenous vein graft anastomosed to the obtuse marginal branch, the circumflex coronary artery another saphenous vein graft anastomosed to the proximal posterior descending branch and sequentially to the distal portion of the posterior descending branch for coronary artery disease by Rolando Rubin M.D. at [facility]. 4In the past; states this has resolved Social History Social History Type Response Smoking Status Never smoker entered on: 08/24/16 Sex Patient Care team information Care Team Personnel Name: Irish Samuel RN Position: [facility] RN Member Role: Primary Care Nurse Name: Ever Blanoc RN Position: [facility] ED RN W/OE and Tasks Member Role: Primary Care Nurse Name: Mireya Ramsey Position: [facility] RN Supv Member Role: Primary Care Nurse Name: Rhea Betancur RN Position: [facility] SN RN Member Role: Primary Care Nurse Name: Hugo Ayala RN Position: [facility] RN Member Role: Primary Care Nurse Name: Lorna Faust RN Position: [facility] RN Member Role: Primary Care Nurse Name: Wilner Feliciano RN Position: [facility] SN RN Member Role: Primary Care Nurse Name: David Gonzalez MD Position: [facility] Renal MD Member Role: Lifetime Consulting Physician Address: Address: [address] [place] [address] [address] [place] [address]- [place] Name: Hannah Garcia NP Position: [facility] PCO Associate Professional Member Role: PCP Address: Address: [address] [facility] [place] [address]- [place] Name: Eduin Arias MD Position: [facility] Renal MD Member Role: Lifetime Consulting Physician Address: Address: [address] [place] [address], [address] [place] [address]- [place] Name: Ana Herrera RN Position: [facility] AMB Nurse Member Role: Primary Care Nurse Name: Carlos Montez RN Position: [facility] Outreach Member Role: Primary Care Nurse Name: Cadence Quach RN Position: [facility] OB RN Member Role: Primary Care Nurse Name: Maggy Tsang RN Position: [facility] RN Member Role: Primary Care Nurse Name: Keyal Keys RN Position: [facility] SN RN Member Role: Primary Care Nurse Name: Марина Guevara RN Position: [facility] SN RN Member Role: Primary Care Nurse Name: Lyn Helms RN Position: [facility] RN Member Role: Primary Care Nurse Name: Tatum Biswas RN Position: [facility] RN Member Role: Primary Care Nurse Name: Hugo Bateman RN Position: [facility] RN Member Role: Primary Care Nurse Name: Petros Levy RN Position: [facility] RN Member Role: Primary Care Nurse Name: Charly uBrns RN Position: [facility] RN Member Role: Primary Care Nurse Name: Nilesh Bear RN Position: [facility] RN Member Role: Primary Care Nurse Name: Izabella Braun RN Position: [facility] RN Member Role: Primary Care Nurse Name: Hafsa Goyal RN Position: [facility] RN Member Role: Primary Care Nurse Name: Rosalio Jack RN Position: [facility] RN Member Role: Primary Care Nurse Name: Carmela Houser RN Position: [facility] SN RN Member Role: Primary Care Nurse Name: Michael Dickson RN Position: [facility] RN Member Role: Primary Care Nurse Name: Jessica Lema RN Position: [facility] RN Member Role: Primary Care Nurse Name: Phu Flynn MD Position: [facility] Renal MD Member Role: Lifetime Consulting Physician Address: Address: [address] [place] [address] [facility] [place], [place] [address] Name: Kareem RAMOS, Yesica Position: S OB RN Member Role: Primary Care Nurse Name: Jesusita Lou RN Position: S OB RN Member Role: Primary Care Nurse Name: Tonio RAMOS, Husam Position: S RN Member Role: Primary Care Nurse Name: Marshall Byrd RN Position: S RN Member Role: Primary Care Nurse Care Team Related Persons Name: DUTCH MAR Address: [place] [address] Name: ALL AYERS Address: home [address], [place] Name: ALL MANZANARES Address: [address] [place] [address] Name: CHRISTEN GRIMALDO Address: [address] [place] [address]
--- OUTSIDE RECORDS SUMMARY | 2023-11-18 12:32 | XMS_ITS | Continuity of Care Document ---
Author Organization [facility] Adult Address [address] [place] [address]- Care Team Providers Care Personal Financial Counselor Name Role Phone Radha ODONNELL, Hannah Primary Care Physician [place] [facility] [place]): [place]/28/23 - 04/27/23 [facility] [address] [place] [id number]- Attending Physician: AdmCaroline barreto Admitting Physician: AdmtrCaroline Referring Physician: Admtr, Ar8 Allergies, Adverse Reactions, Alerts Substance Reaction Severity [...] Daily, # 28 tablet, Refills 5, Maintenance, 01/09/23 7:22:00 EDT, Route to Pharmacy Electronically, [id number], 183, cm, 10/08/22 16:18:00 EDT, Height, 71.3, kg, 08/08/21 0:23:00 EDT, Dry Weight Start Date: 01/09/23 Status: Ordered amLODIPine 5 mg oral tablet 1 tablet, By Mouth, Daily, # 28 tablet, 5 Refills, Maintenance, 11/25/22 16:21:00 EDT, [facility], 183, cm, 10/08/22 16:18:00 EDT, Height, 71.3, kg, 08/08/21 0:23:00 EDT, Dry Weight Start Date: 11/25/22 Status: Ordered atorvastatin 40 mg oral tablet 1 tablet, By Mouth, Daily, # 28 tablet, 2 Refills, Maintenance, 01/09/23 7:23:00 EDT, [id number], 183, cm, 10/08/22 16:18:00 EDT, Height, 71.3, kg, 08/08/21 0:23:00 EDT, Dry Weight Start Date: 01/09/23 Status: Ordered buPROPion 150 mg/24 hours (XL) oral tablet, extended release 1 tablet, By Mouth, Daily, # 28 tablet, 5 Refills, Maintenance, 04/21/23 18:36:00 EST, [id number], 1 tablet By Mouth Daily,x28 days, 183, cm, 03/28/23 11:43:00 EST, Height, 71.3, kg, 220:23:00 EDT, Dry Weight Start Date: 04/21/23 Stop Date: 10/06/23 Status: Ordered carvedilol 12.5 mg oral tablet 1, tablet, By Mouth, 2 times a day, # 56 tablet, Refills 5, Maintenance, 11/25/22 16:22:00 EDT, Route to Pharmacy Electronically, [id number], 183, cm, 10/08/22 16:18:00 EDT, Height, 71.3, kg, 08/08/21 0:23:00 EDT, Dry Weight Start Date: 11/25/22 Status: Ordered cholecalciferol 50,000 intl units oral capsule 1 capsule = 50,000 International_Units, By Mouth, Every week, # 13 capsule, 3 Refills, Maintenance,03/19/23 15:28:00 EDT, Capsule, [id number], Partial fill upon patient request if [...] Date: 03/20/23 Stop Date: 03/14/24 Status: Ordered clopidogrel 75 mg oral tablet 1, tablet, By Mouth, Daily, # 28 tablet, Refills 6, Maintenance, 09/06/22 10:04:00 EDT, Route to Pharmacy Electronically, [facility], 183, cm, 03/16/22 8:31:00 EDT, Height, 71.3, kg, 08/08/21 0:23:00 EDT, Dry Weight Start Date: 09/06/22 Status: Ordered [facility] B-12 1,000 MCG TABLET [...] DAY, # 56 tablet, 6 Refills, Maintenance, 05/14/2216:30:00 EST, [facility], 183, cm, 03/16/22 8:31:00 EDT, Height, 71.3, kg, 08/08/21 0:23:00 EDT, Dry Weight Start Date: 05/14/22 Status: Ordered Eliquis 5 mg oral tablet 1 tablet, By Mouth, 2 times a day, # 56 tablet, 6 Refills, [facility], 183, cm, 08/12/21 14:20:00 EDT, Height, 71.3, kg, 08/08/21 0:23:00 EDT, Dry Weight Start Date: 09/26/21 Status: Ordered Eliquis 5 mg oral tablet See Instructions, TAKE 1 TABLET BY MOUTH TWICE A DAY, # 56 tablet, 6 Refills, Maintenance, 11/30/2314:39:00 EDT, [facility], 183, cm, 10/08/22 16:18:00 EDT, Height, 71.3, kg, 08/08/21 0:23:00 EDT, Dry Weight Start Date: 11/30/22 Status: Ordered furosemide 40 mg oral tablet 1, tablet, By Mouth, 2 times a day, # 56 tablet, Refills 2, Tot. Refills 2, Maintenance, 04/21/23 18:37:00 EST, Route to Pharmacy Electronically, [facility]pharm[facility] #[id number], 183, cm, 03/28/23 11:43:00 EST, Height, 71.3, kg, 08/08/21 0:23:00 EDT, Dry Weight Start Date: 04/21/23 Stop Date: 07/14/23 Status: Ordered FUROSEMIDE 40 MG TABLET FUROSEMIDE 40 MG TABLET, 1, tablet, By Mouth, 2 times a day, # 56 tablet, 2 Refills, Maintenance, 01/09/23 7:24:00 EDT, 183, cm, 10/08/22 16:18:00 EDT, Height, 71.3, kg, 08/08/21 0:23:00 EDT, Dry Weight Start Date: 01/09/23 Status: Ordered hydrALAZINE 50 mg oral tablet 1 tablet, By Mouth, 3 times a day, # 84 tablet, 2 Refills, Maintenance, 04/27/23 13:02:00 EST, [id number], 183, cm, 03/28/23 11:43:00 EST, Height, 71.3, kg, 08/08/21 0:23:00 EDT, Dry Weight Start Date: 04/27/23 Status: Ordered isosorbide mononitrate 60 mg oral tablet, extended release 1 tablet, By Mouth, Daily in AM, # 28 tablet, 5 Refills, Maintenance, 04/21/23 18:37:00 EST, [facility]/pharmacy #[id number], 183, cm, 03/28/23 11:43:00 EST, Height, 71.3, kg, 08/08/21 0:23:00 EDT, Dry Weight Start Date: 04/21/23 Stop Date: 10/06/23 Status: Ordered Mylanta Maximum Strength oral suspension 5 mL, By Mouth, 4 times a day, PRN for control of stomach acid, # 200 mL, 1 Refills, Maintenance, 08/12/21 13:46:00 EDT, Suspension, [facility]/pharmacy #[id number], Partial fill upon patient request if the prescription is for a schedule II opioid drug., 5 mL By M... 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 fiull 03/28/23, # 112 tablet, 0 Refills, Maintenance, 03/28/23 7:01:00 EST, [facility]/pharmacy #[id number], 7 days as needs testing performed partial fill upon request;, 183, cm, 10/08/22 16:18:00 EDT, Hei... 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., # 112 tablet, 0 Refills, Maintenance, 04/26/23 8:55:00 EST, [facility]/pharmacy #[id number], may partial fill upon request;, 183, cm, 03/28/23 11:43:00 EST, Height, 71.3, kg, 08/08/21 0:23:00 EDT, Dry Weight Start Date: 04/26/23 Stop Date: 05/03/23 Status: Ordered pantoprazole 40 mg oral delayed release tablet 1 tablet, By Mouth, Daily, # 28 tablet, 4 Refills, Maintenance, 07/08/22 11:30:00 EST, 183, cm, 03/16/22 8:31:00 EDT, Height, 71.3, kg, 08/08/21 0:23:00 EDT, Dry Weight Start Date: 07/08/22 Status: Ordered pantoprazole 40 mg oral delayed release tablet See Instructions, TAKE 1 TABLET BY MOUTH EVERY DAY, # 28 tablet, 4 Refills, Maintenance, 11/30/22 15:39:00 EDT, 183, cm, 10/08/22 16:18:00 EDT, Height, 71.3, kg, 08/08/21 0:23:00 EDT, Dry Weight Start Date: 11/30/22 Status: Ordered Potassium Chloride ([id number] 10) 10 mEq oral tablet, extended release See Instructions, TAKE 2 TABLETS BY MOUTH EVERY MORNING AND TAKE 1 TABLET EVERY EVENING, # 84 tablet, 2 Refills, Maintenance, 04/27/23 13:02:00 EST, [facility], 183, cm, 03/28/23 11:43:00 EST, Height, 71.3, kg, 08/08/21 0:23:00 EDT, Dry Weight Start Date: 04/27/23 Status: Ordered sertraline 100 mg oral tablet 1 tablet, By Mouth, Daily, # 28 tablet, 5 Refills, Maintenance, 06/09/22 8:26:00 EST, [facility], 183, cm, 03/16/22 8:31:00 EDT, Height, 71.3, kg, 08/08/21 0:23:00 EDT, Dry Weight Start Date: 06/09/22 Status: Ordered sertraline 100 mg oral tablet See Instructions, TAKE 1 TABLET BY MOUTH EVERY DAY, # 28 tablet, 5 Refills, Maintenance, 11/30/22 15:39:00 EDT, [facility], 183, cm, 10/08/22 16:18:00 EDT, Height, 71.3, kg, 08/08/21 0:23:00 EDT, Dry Weight Start Date: 11/30/22 Status: Ordered spironolactone 25 mg oral tablet 1, tablet, By Mouth, Daily, # 28 tablet, Refills 4, Maintenance, 07/08/22 11:30:00 EST, Route to Pharmacy Electronically, [facility], 183, cm, 03/16/22 8:31:00 EDT, Height, 71.3, kg, 08/08/21 0:23:00 EDT, Dry Weight Start Date: 07/08/22 Status: Ordered spironolactone 25 mg oral tablet See Instructions, TAKE 1 TABLET BY MOUTH EVERY DAY, # 28 tablet, Refills 4, Maintenance, 11/30/22 15:38:00 EDT, Instructions Replace Required Details, Route to Pharmacy Electronically, [facility], 183, cm, 10/08/22 16:18:00 EDT, Height, 71.3, kg,... Start Date: 11/30/22 Status: Ordered sucralfate 1 gm oral tablet 1, tablet, By Mouth, 3 times a day before meals, AND BEDTIME., # 112 tablet, Refills 5, Maintenance, 02/04/23 16:32:00 EDT, Route to Pharmacy Electronically, [facility], 183, cm, 10/08/22 16:18:00 EDT, Height, 71.3, kg, 08/08/21 0:23:00 EDT, Dry... Start Date: 02/04/23 Status: Ordered Vitamin B-12 1000 mcg oral tablet 1, tablet, By Mouth, Daily, # 28 tablet, Refills 11, Tot. Refills 11, Maintenance, 04/21/23 18:37:00 EST, Route to Pharmacy Electronically, [facility]/pharmacy #[id number], 183, cm, 03/28/23 11:43:00 EST, Height,71.3, [...] Confirmed Active Shoulder pain Confirmed Active 1infrarenal 2017 2Per chart review meets GFR criteria 3On [...] artery disease by Rolando Rubin M.D. at [facility]. 4In the past; states this has resolved Social History Social History Type Response Smoking Status Never smoker entered on: 08/24/16 Sex Note * Nikki Andrade RN: PERFORM Event Display: Discharge/Transfer Note Hospital Authored Date: Post Discharge Phone Call Entered On: 09/27/2017 16:51 EDT Performed On: 09/27/2017 16:50 EDT by Nikki Andrade RN Post Discharge Phone Call Post Discharge Caller : Patient Post Discharge Call Back Number : [phone] Post Discharge Call Category : Other: CHF post discharge follow up call Post Discharge Message Status : Unable to reach patient after multiple attempts, Other: Automated message when attempted to call patient at documented phone number, this number has calling restrictions that prevent completion of this call. Nikki Andrade RN - 09/27/2017 16:50 EDT * Event Display: [facility] Authored Date: * Event Display: [facility] Authored Date: * Event Display: [facility] Authored Date: Cardiology * Event Display: Cardiovascular Result Scanned Authored Date: EKG study * Event Display: EKG Authored Date: Laboratory * Event Display: Non [facility] Lab Results Authored Date: * Event Display: Non [facility] Lab Results Authored Date: Cardiology Consult note * Event Display: Consult Note Cardiology Authored Date: * Event Display: Consult Note Cardiology Authored Date: * Event Display: Consult Note Cardiology Authored Date: CT Head * Event Display: CT Scan Head Authored Date: Radiology * Risa Parisi: PERFORM Event Display: Radiology Results Scanned Authored Date: [id number] Patient Care team information Care Team Personnel Name: Irish Samuel RN Position: [facility] RN Member Role: Primary Care Nurse Name: Mireya Ramsey Position: [facility] RN Rosettav Member Role: Primary Care Nurse Name: Rhea Betancur RN Position: [facility] SN RN Member Role: Primary Care Nurse Name: Hugo Ayala RN Position: [facility] RN Member Role: Primary Care Nurse Name: Lorna Faust RN Position: [facility] RN Member Role: Primary Care Nurse Name: David Gonzalez MD Position: [facility] Renal MD Member Role: Lifetime Consulting Physician Address: Address: [address] [place] [address] [address] [facility] [address]- [place] Name: Hannah Garcia NP Position: [facility] PCO Associate Professional Member Role: PCP Address: Address: [address] [place] [address], [address] [place] [address]- [place] Name: Eduin Arias MD Position: [facility] Renal MD Member Role: Lifetime Consulting Physician Address: Address: [address] [place] [address], [address] [place] [address]- [place] Name: Ana Herrera RN Position: [facility] RN Member Role: Primary Care Nurse Name: Cadence Quach RN Position: [facility] OB RN Member Role: Primary Care Nurse Name: Maggy Tsang RN Position: [facility] RN Member Role: Primary Care Nurse Name: Keyla Keys RN Position: [facility] SN RN Member Role: Primary Care Nurse Name: Марина Guevara RN Position: [facility] SN RN Member Role: Primary Care Nurse Name: Lyn Helms RN Position: [facility] RN Member Role: Primary Care Nurse Name: Tatum Biswas RN Position: [facility] RN Member Role: Primary Care Nurse Name: Hugo Bateman RN Position: [facility] RN Member Role: Primary Care Nurse Name: Petros Levy RN Position: [facility] RN Member Role: Primary Care Nurse Name: Izabella Braun RN Position: [facility] RN Member Role: Primary Care Nurse Name: Lyndsay King RN Position: [facility] RN Member Role: Primary Care Nurse Name: Felicia Kerr NP Position: [facility] PCO Associate Professional Member Role: Primary Care Nurse Name: Hafsa Goyal RN Position: [facility] RN Member Role: Primary Care Nurse Name: Rosalio Jack RN Position: [facility] RN Member Role: Primary Care Nurse Name: Carmela Houser RN Position: [facility] SN RN Member Role: Primary Care Nurse Name: Michael Dickson RN Position: S RN Member Role: Primary Care Nurse Name: Jessica Lema RN Position: [facility] RN Member Role: Primary Care Nurse Name: Phu Flynn MD Position: [facility] Renal MD Member Role: Lifetime Consulting Physician Address: Address: [address] [place] [address] [facility] [address] Name: Yesica Serna RN Position: [facility] OB RN Member Role: Primary Care Nurse Name: Jesusita Lou RN Position: [facility] OB RN Member Role: Primary Care Nurse Name: Husam Elizalde RN Position: [facility] RN Member Role: Primary Care Nurse Name: Marshall Byrd RN Position: [facility] RN Member Role: Primary Care Nurse Care Team Related Persons Name: ROXANNADUTCH HURTADO Address: [place] [address] Name: ALL AYERS Address: [address] [place] [address] Name: ALL MANZANARES Address: [address] [place] [address] Name: CHRISTEN GRIMALDO Address: [address] [place] [address]
--- OUTSIDE RECORDS SUMMARY | 2023-11-18 12:32 | XMS_ITS | Continuity of Care Document ---
Author Organization [facility] Address [address] [place] [id number]- Care Team Providers Care Dag Coater Name Role Phone Radha ODONNELL, Hnanah Primary Care Physician [phone] Encounter [facility] Date(s): 05/11/23 - 06/10/23 [facility] [address] [place] [id number]- Allergies, Adverse Reactions, Alerts Substance Reaction Severity [...] 01/09/23 7:22:00 EDT, Route to Pharmacy Electronically, [id number], 183, cm, 10/08/22 16:18:00 EDT, Height, 71.3, kg, 08/08/21 0:23:00 EDT, Dry Weight Start Date: 01/09/23 Status: Ordered amLODIPine 5 mg oral tablet 1 tablet, By Mouth, Daily, # 28 tablet, 5 Refills, Maintenance, 11/25/22 16:21:00 EDT, [facility] 08[facility], 183, cm, 10/08/22 16:18:00 EDT, Height, 71.3, kg, 08/08/21 0:23:00 EDT, Dry Weight Start Date: 11/25/22 Status: Ordered atorvastatin 40 mg oral tablet 1 tablet, By Mouth, Daily, # 28 tablet, 2 Refills, Maintenance, 01/09/23 7:23:00 EDT, [facility], 183, cm, 10/08/22 16:18:00 EDT, Height, 71.3, kg, 08/08/21 0:23:00 EDT, Dry Weight Start Date: 01/09/23 Status: Ordered ATORVASTATIN 40 MG TABLET ATORVASTATIN [...] tablet, 5 Refills, Maintenance, 04/21/23 18:36:00 EST, [facility]/pharmacy#[id number], 1 tablet By Mouth Daily,x28 days, 183, cm, 03/28/23 11:43:00 EST, Height, 71.3, kg, :23:00 EDT, Dry Weight Start Date: 04/21/23 Stop Date: 10/06/23 Status: Ordered carvedilol 12.5 mg oral tablet 1, tablet, By Mouth, 2 times a day, # 56 tablet, Refills 5, Maintenance, 11/25/22 16:22:00 EDT, Route to Pharmacy Electronically, [facility], 183, cm, 10/08/22 16:18:00 EDT, Height, 71.3, kg, 08/08/21 0:23:00 EDT, Dry Weight Start Date: 11/25/22 Status: Ordered cholecalciferol 50,000 intl units oral capsule 1 capsule = 50,000 International_Units, By Mouth, Every week, # 13 capsule, 3 Refills, Maintenance,03/19/23 15:28:00 EDT, Capsule, [facility]/pharmacy #[id number], Partial fill upon patient request if the prescription is for a schedule II opioid drug., 183, cm, 0... Start Date: 03/19/23 Stop Date: 03/13/24 Status: Ordered cholecalciferol 50,000 intl units oral capsule 1 capsule = 50,000 International_Units, By Mouth, Every 7 days, # 13 capsule, 3 Refills, Maintenance, 03/20/23 8:29:00 EST, Capsule, [facility]/pharmacy #[id number], Partial fill upon patient request, 183, cm, 10/08/22 16:18:00 EDT, Height, 71.3, kg, 08/08/21 0:23... Start Date: 03/20/23 Stop Date: 03/14/24 Status: Ordered clopidogrel 75 mg oral tablet 1, tablet, By Mouth, Daily, # 28 tablet, Refills 5, Tot. Refills 5, Maintenance, 06/08/23 14:08:00 EST, Route to Pharmacy Electronically, [facility]/pharmacy #[id number], 183, cm, 05/10/23 11:59:00 EST, [...] a day, # 56 tablet, 6 Refills, [facility] 38596, 183, cm, 08/12/21 14:20:00 EDT, Height, 71.3, kg, 08/08/21 0:23:00 EDT, Dry Weight Start Date: 09/26/21 Status: Ordered Eliquis 5 mg oral tablet See Instructions, TAKE 1 TABLET BY MOUTH TWICE A DAY, # 56 tablet, 6 Refills, Maintenance, 06/07/2409:23:00 EST, [facility]/pharmacy #[id number], 183, cm, 05/10/23 11:59:00 EST, Height, 71.3, kg, 08/08/21 0:23:00 EDT, Dry Weight Start Date: 06/07/23 Status: Ordered furosemide 40 mg oral tablet 1, tablet, By Mouth, 2 times a day, # 56 tablet, Refills 2, Tot. Refills 2, Maintenance, 04/21/23 18:37:00 EST, Route to Pharmacy Electronically, [facility]/pharmacy #[id number], 183, cm, 03/28/23 11:43:00 EST, Height, [...] tablet, 2 Refills, Maintenance, 04/27/23 13:02:00 EST, [facility] 50481, 183, cm, 03/28/23 11:43:00 EST, Height, 71.3, kg, 08/08/21 0:23:00 EDT, Dry Weight Start Date: 04/27/23 Status: Ordered isosorbide mononitrate 60 mg oral tablet, extended release 1 tablet, By Mouth, Daily in AM, # 28 tablet, 5 Refills, Maintenance, 04/21/23 18:37:00 EST, [facility]/pharmacy #[id number], 183, cm, 03/28/23 11:43:00 EST, Height, 71.3, kg, 08/08/21 0:23:00 EDT, Dry Weight Start Date: 04/21/23 Stop Date: 10/06/23 Status: Ordered Mylanta Maximum Strength oral suspension 5 mL, By Mouth, 4 times a day, PRN for control of stomach acid, # 200 mL, 1 Refills, Maintenance, 08/12/21 13:46:00 EDT, Suspension, [facility]/pharmacy #[id number], Partial fill upon patient request if the prescription is for a schedule II opioid drug., 5 mL By M... Start Date: 08/12/21 Status: Ordered Narcan 4 mg/0.1 mL nasal spray = 4 mg, Nares, Both, Once, may repeat every 2 to 3 minutes until patient responds, # 1 each, 0 Refills, Soft Stop, 05/14/23 10:41:00 EST, [facility]/pharmacy #[id number], Partial fill upon patient request if the prescription is for a schedule II opioid drug., 183,... 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 fill 06/08/23, # 98 tablet, 0 Refills, Maintenance, 06/07/23 16:16:00 EST, [facility]/pharmacy #[id number], may partial fill upon request;, 183, cm, 05/10/23 11:59:00 EST, Height, 71.3, kg, 08/08/21 0:23:00 EDT, Start Date: 06/07/23 Stop Date: 06/14/23 Status: Ordered pantoprazole 40 mg oral delayed [...] Start Date: 11/30/22 Status: Ordered Potassium Chloride (Qhh-Owpw-Zte 10) 10 mEq oral tablet, extended release See Instructions, TAKE 2 TABLETS BY MOUTH EVERY MORNING AND TAKE 1 TABLET EVERY EVENING, # 84 tablet, 2 Refills, Maintenance, 04/27/23 13:02:00 EST, [facility], 183, cm, 03/28/23 11:43:00 EST, Height, 71.3, kg, 08/08/21 0:23:00 EDT, Dry Weight Start Date: 04/27/23 Status: Ordered sertraline 100 mg oral tablet 1 tablet, By Mouth, Daily, # 28 tablet, 5 Refills, Maintenance, 06/09/22 8:26:00 EST, [facility], 183, cm, 03/16/22 8:31:00 EDT, Height, 71.3, kg, 08/08/21 0:23:00 EDT, Dry Weight Start Date: 06/09/22 Status: Ordered sertraline 100 mg oral tablet See Instructions, TAKE 1 TABLET BY MOUTH EVERY DAY, # 28 tablet, 5 Refills, Maintenance, 11/30/22 15:39:00 EDT, [facility], 183, cm, 10/08/22 16:18:00 EDT, Height, 71.3, kg, 08/08/21 0:23:00 EDT, Dry Weight Start Date: 11/30/22 Status: Ordered spironolactone 25 mg oral tablet 1, tablet, By Mouth, Daily, # 28 tablet, Refills 4, Maintenance, 07/08/22 11:30:00 EST, Route to Pharmacy Electronically, [facility], 183, cm, 03/16/22 8:31:00 EDT, Height, 71.3, kg, 08/08/21 0:23:00 EDT, Dry Weight Start Date: 07/08/22 Status: Ordered spironolactone 25 mg oral tablet See Instructions, TAKE 1 TABLET BY MOUTH EVERY DAY, # 28 tablet, Refills 4, Maintenance, 11/30/22 15:38:00 EDT, Instructions Replace Required Details, Route to Pharmacy Electronically, [facility] [id number], 183, cm, 10/08/22 16:18:00 EDT, Height, 71.3, kg,... Start Date: 11/30/22 Status: Ordered sucralfate 1 gm oral tablet 1, tablet, By Mouth, 3 times a day before meals, AND BEDTIME., # 112 tablet, Refills 5, Maintenance, 02/04/23 16:32:00 EDT, Route to Pharmacy Electronically, [facility] 07[facility], 183, cm, 10/08/22 16:18:00 EDT, Height, 71.3, kg, 08/08/21 0:23:00 EDT, Dry... Start Date: 02/04/23 Status: Ordered Vitamin B-12 1000 mcg oral tablet 1, tablet, By Mouth, Daily, # 28 tablet, Refills 11, Tot. Refills 11, Maintenance, 04/21/23 18:37:00 EST, Route to Pharmacy Electronically, [facility]/pharmacy #[id number], 183, cm, 03/28/23 11:43:00 EST, [...] artery disease by Rolando Rubin M.D. at [facility]. 4In the past; states this has resolved Social History Social History Type Response Smoking Status Never smoker entered on: 08/24/16 Sex Patient Care team information Care Team Personnel Name: Irish Samuel RN Position: [facility] RN Member Role: Primary Care Nurse Name: Mireya Ramsey Position: [facility] RN Supv Member Role: Primary Care Nurse Name: Rhea Betancur RN Position: [facility] SN RN Member Role: Primary Care Nurse Name: Hugo Ayala RN Position: [facility] RN Member Role: Primary Care Nurse Name: Lorna Faust RN Position: [facility] RN Member Role: Primary Care Nurse Name: David Gonzalez MD Position: [facility] Renal MD Member Role: Lifetime Consulting Physician Address: Address: [address] [place] [address] [address] [facility] [address]- [place] Name: Hannah Garcia NP Position: [facility] PCO Associate Professional Member Role: PCP Address: Address: [address] [place] [address], [address] [place] [address]- [place] Name: Eduin Arias MD Position: [facility] Renal MD Member Role: Lifetime Consulting Physician Address: Address: [address] [place] [address], [address] [place] [address]- [place] Name: Ana Herrera RN Position: [facility] AMB Nurse Member Role: Primary Care Nurse Name: Carlos Montez RN Position: [facility] Outreach Member Role: Primary Care Nurse Name: Cadence Quach RN Position: [facility] OB RN Member Role: Primary Care Nurse Name: Maggy Tsang RN Position: [facility] RN Member Role: Primary Care Nurse Name: Keyla Keys RN Position: [facility] SN RN Member Role: Primary Care Nurse Name: Мариан Guevara RN Position: [facility] RN Member Role: Primary Care Nurse Name: Lyn Helms RN Position: [facility] RN Member Role: Primary Care Nurse Name: Tatum Biswas RN Position: [facility] RN Member Role: Primary Care Nurse Name: Hugo Bateman RN Position: [facility] ED RN W/OE and Tasks Member Role: Primary Care Nurse Name: Petros Levy RN Position: [facility] RN Member Role: Primary Care Nurse Name: Izabella Braun RN Position: [facility] RN Member Role: Primary Care Nurse Name: Lyndsay King RN Position: [facility] RN Member Role: Primary Care Nurse Name: Hafsa Goyal RN Position: S RN Member Role: Primary Care Nurse Name: Rosalio Jack RN Position: [facility] RN Member Role: Primary Care Nurse Name: Carmela Houser RN Position: [facility] SN RN Member Role: Primary Care Nurse Name: Michael Dickson RN Position: [facility] RN Member Role: Primary Care Nurse Name: Jessica Lema RN Position: [facility] RN Member Role: Primary Care Nurse Name: Phu Flynn MD Position: [facility] Renal MD Member Role: Lifetime Consulting Physician Address: Address: [address] [place] [address] [facility] [address] Name: Yesica Serna RN Position: [facility] OB RN Member Role: Primary Care Nurse Name: Jesusita Lou RN Position: [facility] OB RN Member Role: Primary Care Nurse Name: Husam Elizalde RN Position: [facility] RN Member Role: Primary Care Nurse Name: Marshall Byrd RN Position: [facility] RN Member Role: Primary Care Nurse Care Team Related Persons Name: DUTCH MAR Address: home [place], [place] Name: ALL AYERS Address: home [address] [place], [place] Name: ALL MANZANARES Address: home [address] [place], [place] Name: CHRISTEN GRIMALDO Address: home [address] [place], [place]
--- OUTSIDE RECORDS SUMMARY | 2023-11-18 12:32 | XMS_ITS | Continuity of Care Document ---
Author Organization [facility] Address [address] [place] [address]- Care Team Providers Care Field Clinical Engineer Name Role Phone Radha ODONNELL, Hannah Primary Care Physician Encounter [facility] Date(s): 10/08/22 - 11/07/22 [facility] [address] [place] [id number]- Attending Physician: Caroline Campbell Admitting Physician: AdmtrCaroline Referring Physician: AdmtrCaroline Allergies, Adverse Reactions, Alerts Substance Reaction Severity Status morphine sick to stomach Active Immunizations Given and Recorded Vaccine Date Status Refusal Reason SARS-CoV-2 (COVID-19) Ad26 vaccine 05/05/21 Given influenza virus vaccine, inactivated 06/16/14 Perry rded influenza virus vaccine, inactivated 02/04/11 Give n pneumococcal 23-valent vaccine 05/15/10 Given tetanus-diphtheria toxoids (Td) 02/25/06 Given Not Given Vaccine Date Status Refusal Reason influenza virus vaccine, inactivated 09/01/17 Not Given Patient Refuses Medications allopurinol 100 mg oral tablet 1, tablet, By Mouth, Daily, # 28 tablet, Refills 2, Maintenance, 09/30/22 8:51:00 EDT, Route to Pharmacy Electronically, [id number], 183, cm, 03/16/22 8:31:00 EDT, Height, 71.3, kg, 08/08/21 0:23:00 EDT, Dry Weight Start Date: 09/30/22 Status: Ordered amLODIPine 5 mg oral tablet 1 tablet, By Mouth, Daily, # 28 tablet, 2 Refills, Maintenance, 09/03/22 20:56:00 EDT, [facility] 804[facility], 183, cm, 03/16/22 8:31:00 EDT, Height, 71.3, kg, 08/08/21 0:23:00 EDT, Dry Weight Start Date: 09/03/22 Status: Ordered atorvastatin 40 mg oral tablet 1 tablet, By Mouth, Daily, # 28 tablet, 5 Refills, Maintenance, 07/08/22 11:30:00 EST, [facility], 183, cm, 03/16/22 8:31:00 EDT, Height, 71.3, kg, 08/08/21 0:23:00 EDT, Dry Weight Start Date: 07/08/22 Status: Ordered buPROPion 150 mg/24 hours (XL) oral tablet, extended release 1 tablet, By Mouth, Daily, # 28 tablet, 5 Refills, Maintenance, 09/03/22 20:57:00 EDT, [facility], 28, TAKE 1 TABLET BY MOUTH EVERY DAY, 183, cm, 03/16/22 8:31:00 EDT, Height, 71.3, kg, :23:00 EDT, Dry Weight Start Date: 09/03/22 Status: Ordered carvedilol 12.5 mg oral tablet 1, tablet, By Mouth, 2 times a day, # 56 tablet, Refills 2, Maintenance, 09/03/22 20:57:00 EDT, Route to Pharmacy Electronically, [facility], 183, cm, 03/16/22 8:31:00 EDT, Height, 71.3, kg, 08/08/21 0:23:00 EDT, Dry Weight Start Date: 09/03/22 Status: Ordered clopidogrel 75 mg oral tablet 1, tablet, By Mouth, Daily, # 28 tablet, Refills 6, Maintenance, 09/06/22 10:04:00 EDT, Route to Pharmacy Electronically, [facility], 183, cm, 03/16/22 8:31:00 EDT, Height, 71.3, [...] 6 Refills, Maintenance, 05/14/2216:30:00 EST, [facility], 183, cm, 03/16/22 8:31:00 EDT, Height, 71.3, kg, 08/08/21 0:23:00 EDT, Dry Weight Start Date: 05/14/22 Status: Ordered Eliquis 5 mg oral tablet 1 tablet, By Mouth, 2 times a day, # 56 tablet, 6 Refills, [facility], 183, cm, 08/12/21 14:20:00 EDT, Height, 71.3, kg, 08/08/21 0:23:00 EDT, Dry Weight Start Date: 09/26/21 Status: Ordered furosemide 40 mg oral tablet 1, tablet, By Mouth, 2 times a day, # 56 tablet, Refills 2, Maintenance, 09/30/22 8:51:00 EDT, Route to Pharmacy Electronically, [facility], 183, cm, 03/16/22 8:31:00 EDT, Height, 71.3, kg, 08/08/21 0:23:00 EDT, Dry Weight Start Date: 09/30/22 Status: Ordered hydrALAZINE 50 mg oral tablet 1 tablet, By Mouth, 3 times a day, # 84 tablet, 1 Refills, Maintenance, 09/30/22 8:51:00 EDT, [facility], 183, cm, 03/16/22 8:31:00 EDT, Height, 71.3, kg, 08/08/21 0:23:00 EDT, Dry Weight Start Date: 09/30/22 Status: Ordered isosorbide mononitrate 60 mg oral tablet, extended release 1 tablet, By Mouth, Daily in AM, # 28 tablet, 2 Refills, Maintenance, 09/03/22 20:59:00 EDT, [facility], 183, cm, 03/16/22 8:31:00 EDT, Height, 71.3, kg, 08/08/21 0:23:00 EDT, Dry Weight Start Date: 09/03/22 Status: Ordered Mylanta Maximum Strength oral suspension 5 mL, By Mouth, 4 times a day, PRN for control of stomach acid, # 200 mL, 1 Refills, Maintenance, 08/12/21 13:46:00 EDT, Suspension, [facility]/pharmacy #[id number], Partial fill upon patient request if the prescription is for a schedule II opioid drug., 5 mL By M... Start Date: 08/12/21 Status: Ordered nitroglycerin 0.4 mg sublingual tablet 1 tablet = 0.4 mg, Sublingual, Every 5 minutes, PRN Chest Pain, # 25 tablet, 3 Refills, Maintenance, 08/24/19 15:40:00 EDT, [facility]/pharmacy #[id number], 183, cm, 05/25/19 15:06:00 EST, Height, 88.3, kg, 08/31/17 3:30:00 EDT, Dry Weight Start Date: 08/24/19 Stop Date: 12/22/19 Status: Ordered oxyCODONE 30 mg oral tablet 2 tablet = 60 mg, By Mouth, Every 3 hours, 5PMP checked. fill on 11/08/22, # 224 tablet, 0 Refills, Maintenance, 11/04/22 17:04:00 EDT, [facility]/pharmacy #[id number], may partial fill upon request; fill 07/19/2022, 183, cm, 10/08/22 16:18:00 EDT, Height, 71.3, kg,... Start Date: 11/04/22 Stop Date: 11/18/22 Status: Ordered pantoprazole 40 mg oral delayed release tablet 1 tablet, By Mouth, Daily, # 28 tablet, 4 Refills, Maintenance, 07/08/22 11:30:00 EST, 183, cm, 03/16/22 8:31:00 EDT, Height, 71.3, kg, 08/08/21 0:23:00 EDT, Dry Weight Start Date: 07/08/22 Status: Ordered Potassium Chloride (Ekx-Oipl-Lkl 10) 10 mEq oral tablet, extended release See Instructions, TAKE 2 TABLETS BY MOUTH EVERY MORNING AND TAKE 1 TABLET EVERY EVENING, # 84 tablet, 2 Refills, Maintenance, 09/06/22 10:04:00 EDT, [facility], 183, cm, 03/16/22 8:31:00 EDT, Height, 71.3, kg, 08/08/21 0:23:00 EDT, Dry Weight Start Date: 09/06/22 Status: Ordered sertraline 100 mg oral tablet 1 tablet, By Mouth, Daily, # 28 tablet, 5 Refills, Maintenance, 06/09/22 8:26:00 EST, [facility], 183, cm, 03/16/22 8:31:00 EDT, Height, 71.3, kg, 08/08/21 0:23:00 EDT, Dry Weight Start Date: 06/09/22 Status: Ordered spironolactone 25 mg oral tablet 1, tablet, By Mouth, Daily, # 28 tablet, Refills 4, Maintenance, 07/08/22 11:30:00 EST, Route to Pharmacy Electronically, [facility] 11925, 183, cm, 03/16/22 8:31:00 EDT, Height, 71.3, kg, 08/08/21 0:23:00 EDT, Dry Weight Start Date: 07/08/22 Status: Ordered sucralfate 1 gm oral tablet 1, tablet, By Mouth, 3 times a day before meals, AND BEDTIME., # 112 tablet, Refills 2, Maintenance, 10/29/22 0:27:00 EDT, Route to Pharmacy Electronically, [facility] 31817, 183, cm, 10/08/22 16:18:00 EDT, Height, 71.3, kg, 08/08/21 0:23:00 EDT, Dry W... Start Date: 10/29/22 Status: Ordered Vitamin B-12 1000 mcg oral tablet See Instructions, TAKE 1 TABLET BY MOUTH EVERY DAY, # 28 tablet, Refills 5, Maintenance, 05/14/22 16:30:00 EST, Instructions Replace Required Details, Route to Pharmacy Electronically, [facility], 183, cm, 03/16/22 8:31:00 EDT, Height, 71.3, kg,... Start Date: 05/14/22 Status: Ordered Vitamin B-12 1000 mcg oral tablet 1, tablet, By Mouth, Daily, # 28 tablet, Refills 5, Route to Pharmacy Electronically, [facility] 7[facility]38, 183, cm, 08/12/21 14:20:00 EDT, Height, 71.3, kg, 08/08/21 0:23:00 EDT, Dry Weight Start Date: 09/26/21 Status: Ordered Problem List Condition Confirmation Course [...] artery disease by Rolando Rubin M.D. at [facility]. 4In the past; states this has resolved Social History Social History Type Response Smoking Status Never smoker entered on: 08/24/16 Sex Note * Nikki Andrade RN: PERFORM Event Display: Discharge/Transfer Note Hospital Authored Date: [id number] Post Discharge Phone Call Entered On: 09/27/2017 [...] Event Display: Radiology Results Scanned Authored Date: Patient Care team information Care Team Personnel Name: Irish Samuel RN Position: [facility] RN Member Role: Primary Care Nurse Name: Mireya Ramsey Position: [facility] RN Supv Member Role: Primary Care Nurse Name: Rhea Betancur RN Position: [facility] RN Member Role: Primary Care Nurse Name: Hugo Ayala RN Position: [facility] RN Member Role: Primary Care Nurse Name: Lorna Faust RN Position: [facility] RN Member Role: Primary Care Nurse Name: David Gonzalez MD Position: [facility] Renal MD Member Role: Lifetime Consulting Physician Address: Address: [address] [place] [address], [address] [facility] [place] [address]- [place] Name: Hannah Garcia NP Position: [facility] PCO Associate Professional Member Role: PCP Address: Address: [address] [place] [address], [address] [place] [address]- [place] Name: Eduin Arias MD Position: [facility] Renal MD Member Role: Lifetime Consulting Physician Address: Address: [address] [place] [address], [address] [place] [address]- [place] Name: Ana Herrera RN Position: [facility] AMB Nurse Member Role: Primary Care Nurse Name: Cadence Quach RN Position: [facility] OB RN Member Role: Primary Care Nurse Name: Maggy Tsang RN Position: [facility] RN Member Role: Primary Care Nurse Name: Keyla Keys RN Position: [facility] SN RN Member Role: Primary Care Nurse Name: Марина Guevara RN Position: [facility] RN Member Role: Primary Care Nurse Name: Lny Helms RN Position: [facility] RN Member Role: Primary Care Nurse Name: Tatum Biswas RN Position: [facility] RN Member Role: Primary Care Nurse Name: Hugo Bateman RN Position: [facility] RN Member Role: Primary Care Nurse Name: Petros Levy RN Position: [facility] RN Member Role: Primary Care Nurse Name: Charly Burns RN Position: [facility] RN Member Role: Primary Care Nurse Name: Izabella Braun RN Position: [facility] RN Member Role: Primary Care Nurse Name: Lyndsay King RN Position: [facility] RN Member Role: Primary Care Nurse Name: Felicia Kerr RN Position: [facility] RN Member Role: Primary Care Nurse Name: Hafsa Goyla RN Position: [facility] RN Member Role: Primary Care Nurse Name: Rosalio Jack RN Position: [facility] RN Member Role: Primary Care Nurse Name: Geovanna Hill RN Position: [facility] RN Member Role: Primary Care Nurse Name: Carmela Houser RN Position: [facility] SN RN Member Role: Primary Care Nurse Name: Michael Dickson RN Position: [facility] RN Member Role: Primary Care Nurse Name: Jessica Lema RN Position: [facility] RN Member Role: Primary Care Nurse Name: Phu Flynn MD Position: [facility] Renal MD Member Role: Lifetime Consulting Physician Address: Address: [address] [place] [address] [facility] [address] Name: Yesica Serna RN Position: [facility] OB RN Member Role: Primary Care Nurse Name: Jesusita Lou RN Position: [facility] OB RN Member Role: Primary Care Nurse Name: Karen Quach RN Position: [facility] PCO w/OE and EZ Script Member Role: Primary Care Nurse Name: Marshall Byrd RN Position: [facility] RN Member Role: Primary Care Nurse Care Team Related Persons Name: DUTCH MAR Address: home [place], [place] Name: ALL AYERS Address: home [address] [place], [place] Name: ALL MANZANARES Address: [address] [place] [address] Name: CHRISTEN GRIMALDO Address: [address] [place] [address]
--- OUTSIDE RECORDS SUMMARY | 2023-11-18 12:32 | XMS_ITS | Continuity of Care Document ---
Author Organization [facility] Adult Address [address] [place] [phone]- Care Team Providers Care Economic Development Coordinator Name Role Phone Hannah Garcia NP Primary Care Physician [phone] [facility] [place] Date(s): 10/20/21 - 10/27/21 [facility] Adult [address] [place] [phone]- Attending Physician: Hannah Garcia NP Allergies, Adverse Reactions, [...] Mouth, Daily, # 28 tablet, Refills 2, Route to Pharmacy Electronically, [facility], 183, cm, 08/12/21 14:20:00 EDT, Height, 71.3, kg, 08/08/21 0:23:00 EDT, Dry Weight Start Date: 09/25/21 Status: Ordered amLODIPine 5 mg oral tablet 1 tablet, By Mouth, Daily, # 28 tablet, 4 Refills, [facility], 183, cm, 10/20/21 10:31:00 EDT,Height, 71.3, kg, 08/08/21 0:23:00 EDT, Dry Weight Start Date: 10/27/21 Status: Ordered atorvastatin 40 mg oral tablet 1 tablet, By Mouth, Daily, # 28 tablet, 5 Refills, [facility], 183, cm, 05/04/21 3:09:00 EST, Height, 81.7, kg, 04/16/21 3:06:00 EST, Dry Weight Start Date: 07/01/21 Status: Ordered buPROPion 150 mg/24 hours (XL) oral tablet, extended release 1 tablet, By Mouth, Every 24 hours, # 28 tablet, 2 Refills, [facility], 28, TAKE 1 TABLET BY MOUTH EVERY 24 HOURS, 183, cm, 08/12/21 14:20:00 EDT, Height, 71.3, kg, 08/08/21 0:23:00 EDT, Dry Weight Start Date: 09/25/21 Status: Ordered carvedilol 12.5 mg oral tablet 1, tablet, By Mouth, 2 times a day, # 56 tablet, Refills 5, Route to Pharmacy Electronically, [facility], 183, cm, 05/04/21 3:09:00 EST, Height, 81.7, kg, 04/16/21 3:06:00 EST, Dry Weight Start Date: 07/07/21 Status: Ordered clopidogrel 75 mg oral tablet 1, tablet, By Mouth, Daily, # 28 tablet, Refills 5, Route to Pharmacy Electronically, [facility], 183, cm, 05/04/21 3:09:00 EST, Height, 81.7, kg, 04/16/21 3:06:00 EST, Dry Weight Start Date: 07/02/21 Status: Ordered Eliquis 5 mg oral tablet 1 tablet, By Mouth, 2 times a day, # 56 tablet, 6 Refills, [facility], 183, cm, 08/12/21 14:20:00 EDT, Height, 71.3, kg, 08/08/21 0:23:00 EDT, Dry Weight Start Date: 09/26/21 Status: Ordered furosemide 40 mg oral tablet 1, tablet, By Mouth, 2 times a day, # 56 tablet, Refills 2, Route to Pharmacy Electronically, [facility], 183, cm, 08/12/21 14:20:00 EDT, Height, 71.3, kg, 08/08/21 0:23:00 EDT, Dry Weight Start Date: 09/25/21 Status: Ordered hydrALAZINE 50 mg oral tablet 1 tablet = 50 mg, By Mouth, 3 times a day, dose change, # 90 tablet, 1 Refills, Maintenance, 09/10/19 10:37:00 EDT, Tablet, [facility]/pharmacy #[id number], 183, cm, 05/25/19 15:06:00 EST, Height Start Date: 09/10/19 Stop Date: 11/09/19 Status: Ordered isosorbide mononitrate 60 mg oral tablet, extended release 1 tablet, By Mouth, Daily in AM, # 28 tablet, 4 Refills, [facility] 07[facility], 183, cm, 10/20/21 10:31:00 EDT, Height, 71.3, kg, 08/08/21 0:23:00 EDT, Dry Weight Start Date: 10/27/21 Status: Ordered Mylanta Maximum Strength oral suspension 5 mL, By Mouth, 4 times a day, PRN for control of stomach acid, # 200 mL, 1 Refills, Maintenance, 08/12/21 13:46:00 EDT, Suspension, [facility]/pharmacy #[id number], Partial fill upon patient request if the prescription is for a schedule II opioid drug., 5 mL By M... 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 10/27/21, # 224 tablet, 0 Refills, Acute 05/15/22 9:44:00 EST, 10/27/21 11:16:00 EDT, [id number], may partial fill upon request;, 183, cm, 10/20/21 10:31:00 EDT, Height, 71.3, kg, ... Start Date: 10/27/21 Stop Date: 05/15/22 Status: Ordered pantoprazole 40 mg oral delayed release tablet 1 tablet, By Mouth, Daily, # 28 tablet, 2 Refills, 08/12/21 13:46:00 EDT, 183, cm, 08/12/21 12:05:00 EDT, Height, 71.3, kg, 08/08/21 0:23:00 EDT, Dry Weight Start Date: 08/12/21 Status: Ordered Potassium Chloride (Ajw-Kljo-Edd 10) 10 mEq oral tablet, extended release See Instructions, TAKE 2 TABLETS BY MOUTH EVERY MORNING AND TAKE 1 TABLET EVERY EVENING, # 84 tablet, 2 Refills, [facility] 27[facility], 183, cm, 08/12/21 14:20:00 EDT, Height, 71.3, kg, 08/08/21 0:23:00 EDT, Dry Weight Start Date: 09/03/21 Status: Ordered sertraline 100 mg oral tablet 1 tablet, By Mouth, Daily, # 28 tablet, 5 Refills, [facility], 183, cm, 05/04/21 3:09:00 EST, Height, 81.7, kg, 04/16/21 3:06:00 EST, Dry Weight Start Date: 06/11/21 Status: Ordered spironolactone 25 mg oral tablet 1, tablet, By Mouth, Daily, # 28 tablet, Refills 2, Tot. Refills 2, 08/12/21 13:46:00 EDT, Route toPharmacy Electronically, [facility]/pharmacy #[id number], 183, cm, 08/12/21 12:05:00 EDT, Height, 71.3, kg, 08/08/21 0:23:00 EDT, Dry Weight Start Date: 08/12/21 Status: Ordered sucralfate 1 gm oral tablet 1, tablet, By Mouth, 3 times a day before meals, AND BEDTIME., # 112 tablet, Refills 2, Tot. Refills 2, 08/12/21 13:47:00 EDT, Route to Pharmacy Electronically, [facility]/pharmacy #[id number], 183, cm, 08/12/21 12:05:00 EDT, Height, 71.3, kg, 08/08/21 0:23:00 EDT... Start Date: 08/12/21 Status: Ordered Vitamin B-12 1000 mcg oral tablet 1, tablet, By Mouth, Daily, # 28 tablet, Refills 5, Route to Pharmacy Electronically, [facility], 183, cm, 08/12/21 14:20:00 EDT, Height, 71.3, kg, 08/08/21 0:23:00 EDT, Dry Weight Start Date: 09/26/21 Status: Ordered Problem List Condition Effective Dates Status Health Status Inform ant Aortic aneurysm of unspecifi ed site without mention of rupture(Confirmed) 1 Active Atrial fibrillation(Confirmed) Active CVA (cerebral infarction)(Confirmed) Active Chronic pain syndrome(Confirmed) Active Depression(Confirmed) Active Gout(Confirmed) Active Use of opiates for therapeut ic purposes(Confirmed) Active S/P CABG (coronary artery by pass graft)(Confirmed) Active Status post coronary artery bypass grafting(Confirmed) 2 07/15/10 Active Hyperlipidemia(Confirmed) Active Hypertension, renal disease(Confirmed) Active Knee pain(Confirmed) Active 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) Active OA (osteoarthritis) of knee(Confirmed) Active Obstructive sleep apnea not on CPAP(Confirmed) 3 Active Pain in Joint Involving Shou lder Region(Confirmed) Active Shoulder pain(Confirmed) Active 1infrarenal 2017 2On 07/15/2010 underwent coronary artery bypass grafting x4 with left internal mammary anastomosed to the left anterior descending, the saphenous vein graft anastomosed to the obtuse marginal branch, the circumflex coronary artery another saphenous vein graft anastomosed to the proximal posterior descending branch and sequentially to the distal portion of the posterior descending branch for coronary artery disease by Rolando Rubin M.D. at [facility]. 3In the past; states this has resolved Vital Signs Most recent to oldest [Reference Range]: 1 Height 183 cm (10/20/21 10:31 AM) Social History Social History Type Response Smoking Status Never smoker entered on: 08/24/16 Sex
--- OUTSIDE RECORDS SUMMARY | 2023-11-18 12:32 | XMS_ITS | Continuity of Care Document ---
Author Organization [facility] Adult Address [address] [place] [address]- Care Team Providers Care [employer] Skills Name Role Phone Radha ODONNELL, Hannah Primary Care Physician [phone] Encounter [facility] [place] Date(s): 03/09/21 - 04/08/21 [facility] Adult [address] [place] [phone]- Allergies, Adverse Reactions, Alerts Substance Reaction Severity Status morphine sick to stomach Active Immunizations Given and Recorded Vaccine Date Status Refusal Reason influenza virus vaccine, inactivated 02/04/11 Give n pneumococcal 23-valent vaccine 05/15/10 Given tetanus-diphtheria toxoids (Td) 02/25/06 Given Not Given Vaccine Date Status Refusal Reason influenza virus vaccine, inactivated 09/01/17 Not Given Patient Refuses Medications allopurinol 100 mg oral tablet 1, tablet, By Mouth, Daily, # 28 tablet, Refills 2, Route to Pharmacy Electronically, [facility], 183, cm, 08/05/20 8:57:00 EDT, Height Start Date: 03/14/21 Status: Ordered amLODIPine 5 mg oral tablet 1 tablet, By Mouth, Daily, # 30 tablet, 5 Refills, Maintenance, 10/22/20 16:57:00 EDT, [facility], 183, cm, 08/05/20 8:57:00 EDT, Height Start Date: 10/22/20 Status: Ordered atorvastatin 40 mg oral tablet 1 tablet, By Mouth, Daily, # 28 tablet, 5 Refills, Maintenance, 11/19/20 20:20:00 EDT, [facility]/pharmacy#[id number], 183, cm, 08/05/20 8:57:00 EDT, Height Start Date: 11/19/20 Status: Ordered buPROPion 150 mg/24 hours (XL) oral tablet, extended release 1 tablet, By Mouth, Every 24 hours, # 28 tablet, 2 Refills, [facility], 28, TAKE 1 TABLET BY MOUTH EVERY 24 HOURS, 183, cm, 08/05/20 8:57:00 EDT, Height Start Date: 03/10/21 Status: Ordered carvedilol 12.5 mg oral tablet 1, tablet, By Mouth, 2 times a day, # 56 tablet, Refills 2, Route to Pharmacy Electronically, [facility], 183, cm, 08/05/20 8:57:00 EDT, Height Start Date: 02/10/21 Status: Ordered clopidogrel 75 mg oral tablet 1, tablet, By Mouth, Daily, # 30 tablet, Refills 5, Tot. Refills 0, Maintenance, 11/04/20 9:43:00 EDT, Route to Pharmacy Electronically, [facility], 183, cm, 08/05/20 8:57:00 EDT, Height Start Date: 11/04/20 Status: Ordered [facility] B-12 1,000 MCG TABLET See Instructions, # 30 tablet, TAKE 1 TABLET BY MOUTH EVERY DAY, [facility]/pharmacy #[id number] Start Date: 03/20/19 Status: Ordered docusate sodium 100 mg oral capsule 100 mg, 1, capsule, By Mouth, 3 times a day, Bubble Pack and Delivery, # 90 capsule, Refills 5, Tot. Refills 5, Maintenance, 11/22/17 13:28:22 EDT, Route to Pharmacy Electronically, [id number], [facility]/pharmacy #[id number] Start Date: 11/22/17 Stop Date: 05/21/18 Status: Ordered Eliquis 5 mg oral tablet 1 tablet, By Mouth, 2 times a day, # 56 tablet, 6 Refills, [facility], 183, cm, 08/05/20 8:57:00 EDT, Height Start Date: 01/27/21 Status: Ordered furosemide 40 mg oral tablet 1, tablet, By Mouth, 2 times a day, # 56 tablet, Refills 2, Route to Pharmacy Electronically, [facility], 183, cm, 08/05/20 8:57:00 EDT, Height Start Date: 03/10/21 Status: Ordered hydrALAZINE 50 mg oral tablet 1 tablet = 50 mg, By Mouth, 3 times a day, dose change, # 90 tablet, 1 Refills, Maintenance, 09/10/19 10:37:00 EDT, Tablet, [facility]/pharmacy #[id number], 183, cm, 05/25/19 15:06:00 EST, Height Start Date: 09/10/19 Stop Date: 11/09/19 Status: Ordered isosorbide mononitrate 60 mg oral tablet, extended release 1 tablet, By Mouth, Daily in AM, # 28 tablet, 6 Refills, Maintenance, 10/22/20 16:57:00 EDT, [facility], 183, cm, 08/05/20 8:57:00 EDT, Height Start Date: 10/22/20 Status: Ordered NIFEdipine 30 mg oral tablet, extended release 30 mg, 1, tablet, By Mouth, Daily, Bubble Pack and Delivery, # 30 tablet, Refills 3, Tot. Refills 3, Maintenance, 03/27/18 8:38:30 EST, Route to Pharmacy Electronically, [id number], [facility]/pharmacy #[id number] Start Date: 03/27/18 Status: Ordered nitroglycerin 0.4 mg sublingual tablet 1 tablet = 0.4 mg, Sublingual, Every 5 minutes, PRN Chest Pain, # 25 tablet, 3 Refills, Maintenance, 08/24/19 15:40:00 EDT, [facility]/pharmacy #[id number], 183, cm, 05/25/19 15:06:00 EST, Height, 88.3, kg, 08/31/17 3:30:00 EDT, Dry Weight Start Date: 08/24/19 Stop Date: 12/22/19 Status: Ordered oxyCODONE 30 mg oral tablet 2 tablet = 60 mg, By Mouth, Every 3 hours, 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/06/21, # 224 tablet, 0 Refills, Acute 05/15/21 8:57:00 EST, 04/03/21 12:51:00 EST, [facility]/pharmacy #[id number], may partial fill upon request;, 04/06/21, 183, cm, 08/05/20 8:57:00 EDT, Height Start Date: 04/03/21 Stop Date: 05/15/21 Status: Ordered pantoprazole 40 mg oral delayed release tablet 1 tablet, By Mouth, Daily, # 28 tablet, 2 Refills, 183, cm, 08/05/20 8:57:00 EDT, Height Start Date: 02/10/21 Status: Ordered Potassium Chloride (Ngd-Amns-Niz 10) 10 mEq oral tablet, extended release See Instructions, TAKE 2 TABLETS BY MOUTH EVERY MORNING AND TAKE 1 TABLET EVERY EVENING, # 84 tablet, 2 Refills, [facility], 183, cm, 08/05/20 8:57:00 EDT, Height Start Date: 02/10/21 Status: Ordered sertraline 100 mg oral tablet 1 tablet, By Mouth, Daily, # 28 tablet, 5 Refills, Maintenance, 11/20/20 10:42:00 EDT, [facility], 183, cm, 08/05/20 8:57:00 EDT, Height Start Date: 11/20/20 Status: Ordered spironolactone 25 mg oral tablet 1, tablet, By Mouth, Daily, # 28 tablet, Refills 2, Route to Pharmacy Electronically, [facility], 183, cm, 08/05/20 8:57:00 EDT, Height Start Date: 02/10/21 Status: Ordered sucralfate 1 gm oral tablet 1, tablet, By Mouth, 3 times a day before meals, AND BEDTIME., # 112 tablet, Refills 2, Route to Pharmacy Electronically, [facility], 183, cm, 08/05/20 8:57:00 EDT, Height Start Date: 01/27/21 Status: Ordered Vitamin B-12 1000 mcg oral tablet 1, tablet, By Mouth, Daily, # 28 tablet, Refills 5, Route to Pharmacy Electronically, [facility], 183, cm, 08/05/20 8:57:00 EDT, Height Start Date: 03/10/21 Status: Ordered Problem List Condition Effective Dates Status Health Status Inform ant Aortic aneurysm of unspecifi ed site without mention of rupture(Confirmed) 1 Active Aneurysm of artery(Confirmed) 2 Active Atrial fibrillation(Confirmed) Active CAD - Coronary artery disease(Confirmed) Active CVA (cerebral infarction)(Confirmed) Active Chronic pain syndrome(Confirmed) Active CAD (coronary artery disease)(Confirmed) Active Depression(Confirmed) Active Gout(Confirmed) Active History of surgery(Confirmed) 3 Active Use of opiates for therapeut ic purposes(Confirmed) Active Status post coronary artery bypass grafting(Confirmed) 4 07/15/10 Active Hyperlipidemia(Confirmed) Active Hypertension, renal disease(Confirmed) Active Hypertensive renal disease(Confirmed) Active Knee pain(Confirmed) Active 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) Active OA (osteoarthritis) of knee(Confirmed) Active Obstructive sleep apnea(Confirmed) 5 Active Pain in Joint Involving Shou lder Region(Confirmed) Active Upper extremity pain(Confirmed) Active Shoulder pain(Confirmed) Active 1infrarenal 2017 2ACA 3-4 MM 3Right total knee replacement right shoulder surgery 4On 07/15/2010 underwent coronary artery bypass grafting x4 with left internal mammary anastomosed to the left anterior descending, the saphenous vein graft anastomosed to the obtuse marginal branch, the circumflex coronary artery another saphenous vein graft anastomosed to the proximal posterior descending branch and sequentially to the distal portion of the posterior descending branch for coronary artery disease by Rolando Rubin M.D. at [facility]. 5In the past; states this has resolved Social History Social History Type Response Smoking Status Never smoker entered on: 08/24/16 Sex
--- OUTSIDE RECORDS SUMMARY | 2023-11-18 12:32 | XMS_ITS | Continuity of Care Document ---
Author Organization [facility] Address [address] [place] [id number]- Care Team Providers Care Online User Experience Strategist Name Role Phone Radha ODONNELL, Hannah Primary Care Physician [phone] Encounter [facility] Date(s): 04/04/23 - 05/04/23 [facility] [address] [place] [id number]- Allergies, Adverse Reactions, Alerts Substance Reaction Severity [...] 01/09/23 7:22:00 EDT, Route to Pharmacy Electronically, [facility], 183, cm, 10/08/22 16:18:00 EDT, Height, 71.3, kg, 08/08/21 0:23:00 EDT, Dry Weight Start Date: 01/09/23 Status: Ordered amLODIPine 5 mg oral tablet 1 tablet, By Mouth, Daily, # 28 tablet, 5 Refills, Maintenance, 11/25/22 16:21:00 EDT, [facility], 183, cm, 10/08/22 16:18:00 EDT, Height, 71.3, kg, 08/08/21 0:23:00 EDT, Dry Weight Start Date: 11/25/22 Status: Ordered atorvastatin 40 mg oral tablet 1 tablet, By Mouth, Daily, # 28 tablet, 2 Refills, Maintenance, 01/09/23 7:23:00 EDT, [facility], 183, cm, 10/08/22 16:18:00 EDT, Height, 71.3, [...] EDT, Route to Pharmacy Electronically, [facility], 183, cm, 10/08/22 16:18:00 EDT, Height, 71.3, [...] EDT, Route to Pharmacy Electronically, [facility], 183, cm, 03/16/22 8:31:00 EDT, Height, 71.3, [...] 6 Refills, Maintenance, 05/14/2216:30:00 EST, [facility], 183, cm, 03/16/22 8:31:00 EDT, Height, 71.3, kg, 08/08/21 0:23:00 EDT, Dry Weight Start Date: 05/14/22 Status: Ordered Eliquis 5 mg oral tablet 1 tablet, By Mouth, 2 times a day, # 56 tablet, 6 Refills, [facility], 183, cm, 08/12/21 14:20:00 EDT, Height, 71.3, kg, 08/08/21 0:23:00 EDT, Dry Weight Start Date: 09/26/21 Status: Ordered Eliquis 5 mg oral tablet See Instructions, TAKE 1 TABLET BY MOUTH TWICE A DAY, # 56 tablet, 6 Refills, Maintenance, 11/30/2314:39:00 EDT, [facility], 183, cm, 10/08/22 16:18:00 EDT, Height, 71.3, kg, 08/08/21 0:23:00 EDT, Dry Weight Start Date: 11/30/22 Status: Ordered furosemide 40 mg oral tablet 1, tablet, By Mouth, 2 times a day, # 56 tablet, Refills 2, Tot. Refills 2, Maintenance, 04/21/23 18:37:00 EST, Route to Pharmacy Electronically, [facility]/pharmacy #[id number], 183, cm, 03/28/23 11:43:00 EST, [...] tablet, 2 Refills, Maintenance, 04/27/23 13:02:00 EST, [facility] 83[facility], 183, cm, 03/28/23 11:43:00 EST, Height, 71.3, kg, 08/08/21 0:23:00 EDT, Dry Weight Start Date: 04/27/23 Status: Ordered isosorbide mononitrate 60 mg oral tablet, extended release 1 tablet, By Mouth, Daily in AM, # 28 tablet, 5 Refills, Maintenance, 04/21/23 18:37:00 EST, [facility]/pharmacy #[id number], 183, cm, 03/28/23 11:43:00 EST, [...] 60 mg, By Mouth, Every 3 hours, 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 [email or web address] 03/28/23, # 112 tablet, 0 Refills, Maintenance, 03/28/23 7:01:00 EST[id number] as needs testing performed partial fill upon request;, 183, cm, 10/08/22 16:18:00 EDT, Hei... Start Date: 03/28/23 Stop Date: 04/04/23 Status: Ordered pantoprazole 40 mg oral delayed [...] Start Date: 11/30/22 Status: Ordered Potassium Chloride (Oaw-Nusu-Kay 10) 10 mEq oral tablet, extended release See Instructions, TAKE 2 TABLETS BY MOUTH EVERY MORNING AND TAKE 1 TABLET EVERY EVENING, # 84 tablet, 2 Refills, Maintenance, 04/27/23 13:02:00 EST, [facility], 183, cm, 03/28/23 11:43:00 EST, Height, 71.3, kg, 08/08/21 0:23:00 EDT, Dry Weight Start Date: 04/27/23 Status: Ordered sertraline 100 mg oral tablet 1 tablet, By Mouth, Daily, # 28 tablet, 5 Refills, Maintenance, 06/09/22 8:26:00 EST, [facility], 183, cm, 03/16/22 8:31:00 EDT, Height, 71.3, kg, 08/08/21 0:23:00 EDT, Dry Weight Start Date: 06/09/22 Status: Ordered sertraline 100 mg oral tablet See Instructions, TAKE 1 TABLET BY MOUTH EVERY DAY, # 28 tablet, 5 Refills, Maintenance, 11/30/22 15:39:00 EDT, [facility], 183, cm, 10/08/22 16:18:00 EDT, Height, 71.3, kg, 08/08/21 0:23:00 EDT, Dry Weight Start Date: 11/30/22 Status: Ordered spironolactone 25 mg oral tablet 1, tablet, By Mouth, Daily, # 28 tablet, Refills 4, Maintenance, 07/08/22 11:30:00 EST, Route to Pharmacy Electronically, [facility], 183, cm, 03/16/22 8:31:00 EDT, Height, 71.3, kg, 08/08/21 0:23:00 EDT, Dry Weight Start Date: 07/08/22 Status: Ordered spironolactone 25 mg oral tablet See Instructions, TAKE 1 TABLET BY MOUTH EVERY DAY, # 28 tablet, Refills 4, Maintenance, 11/30/22 15:38:00 EDT, Instructions Replace Required Details, Route to Pharmacy Electronically, [facility], 183, cm, 10/08/22 16:18:00 EDT, Height, 71.3, kg,... Start Date: 11/30/22 Status: Ordered sucralfate 1 gm oral tablet 1, tablet, By Mouth, 3 times a day before meals, AND BEDTIME., # 112 tablet, Refills 5, Maintenance, 02/04/23 16:32:00 EDT, Route to Pharmacy Electronically, [facility], 183, cm, 10/08/22 16:18:00 EDT, Height, 71.3, kg, 08/08/21 0:23:00 EDT, Dry... Start Date: 02/04/23 Status: Ordered Vitamin B-12 1000 mcg oral tablet 1, tablet, By Mouth, Daily, # 28 tablet, Refills 11, Tot. Refills 11, Maintenance, 04/21/23 18:37:00 EST, Route to Pharmacy Electronically, [facility]/pharmacy #[id number], 183, cm, 03/28/23 11:43:00 EST, [...] artery disease by Rolando Rubin M.D. at [facility]. 4In the past; states this has resolved Social History Social History Type Response Smoking Status Never smoker entered on: 08/24/16 Sex Patient Care team information Care Team Personnel Name: Irish Samuel RN Position: [facility] RN Member Role: Primary Care Nurse Name: Mireya Ramsey Position: [facility] RN Supv Member Role: Primary Care Nurse Name: Rhea Betancur RN Position: [facility] SN RN Member Role: Primary Care Nurse Name: Hguo Ayala RN Position: [facility] RN Member Role: Primary Care Nurse Name: Lorna Faust RN Position: [facility] RN Member Role: Primary Care Nurse Name: David Gonzalez MD Position: [facility] Renal MD Member Role: Lifetime Consulting Physician Address: Address: [address] [place] [address] [address] [facility] [address]- [place] Name: Hannah Garcia NP Position: [facility] PCO Associate Professional Member Role: PCP Address: Address: [address] [place] [address], [address] [place] [address]- [place] Name: Eduin Arias MD Position: [facility] Renal MD Member Role: Lifetime Consulting Physician Address: Address: [address] [place] [address], [address] [place] [address]- [place] Name: Ana Herrera RN Position: [facility] RN Member Role: Primary Care Nurse Name: Cadence Quach RN Position: [facility] OB RN Member Role: Primary Care Nurse Name: Maggy Tsang RN Position: [facility] RN Member Role: Primary Care Nurse Name: Keyla Keys RN Position: [facility] SN RN Member Role: Primary Care Nurse Name: Марина Guevara RN Position: [facility] SN RN Member Role: Primary Care Nurse Name: Lyn Helms RN Position: [facility] RN Member Role: Primary Care Nurse Name: Tatum Biswas RN Position: [facility] RN Member Role: Primary Care Nurse Name: Hugo Bateman RN Position: [facility] RN Member Role: Primary Care Nurse Name: Petros Levy RN Position: [facility] RN Member Role: Primary Care Nurse Name: Izabella Braun RN Position: [facility] RN Member Role: Primary Care Nurse Name: Lyndsay King RN Position: [facility] RN Member Role: Primary Care Nurse Name: Hafsa Goyal RN Position: [facility] RN Member Role: Primary Care Nurse Name: Rosalio Jack RN Position: [facility] RN Member Role: Primary Care Nurse Name: Carmela Houser RN Position: [facility] SN RN Member Role: Primary Care Nurse Name: Michael Dickson RN Position: [facility] RN Member Role: Primary Care Nurse Name: Jessica Lema RN Position: [facility] RN Member Role: Primary Care Nurse Name: Phu Flynn MD Position: [facility] Renal MD Member Role: Lifetime Consulting Physician Address: Address: [address] [place] [address] [facility] [address] Name: Yesica Serna RN Position: [facility] OB RN Member Role: Primary Care Nurse Name: Jesusita Lou RN Position: [facility] OB RN Member Role: Primary Care Nurse Name: Husam Elizalde RN Position: [facility] RN Member Role: Primary Care Nurse Name: Marshall Byrd RN Position: [facility] RN Member Role: Primary Care Nurse Care Team Related Persons Name: ROXANNAREINALDO HURTADOISSA Address: [place], [place] Name: ALL AYERS Address: home [address] [place], [place] Name: ALL MANZANARES Address: [address] [place], [place] Name: CHRISTEN GRIMALDO Address: [address] [place], [place]
--- OUTSIDE RECORDS SUMMARY | 2023-11-18 12:32 | XMS_ITS | Continuity of Care Document ---
Author Organization [facility] Address [address] [place] [address]- Care Team Providers Care Movement Therapist Name Role Phone Radha ODONNELL, Hannah Primary Care Physician Encounter [facility] Date(s): 11/26/19 - 12/26/19 [facility] [address] [place] [id number]- [facility] Allergies, Adverse Reactions, Alerts Substance Reaction Severity Status morphine sick to stomach Active Immunizations Given and Recorded Vaccine Date Status Refusal Reason influenza virus vaccine, inactivated 02/04/11 Give n pneumococcal 23-valent vaccine 05/15/10 Given tetanus-diphtheria toxoids (Td) 02/25/06 Given Not Given Vaccine Date Status Refusal Reason influenza virus vaccine, inactivated 09/01/17 Not Given Patient Refuses Medications allopurinol 100 mg oral tablet See Instructions, TAKE 1 TABLET BY MOUTH DAILY FOR 30 DAYS, # 30 tablet, Refills 2, Tot. Refills 2,Soft Stop, 12/24/19 10:23:00 EDT, Instructions Replace Required Details, Route to Pharmacy Electronically, [facility]/pharmacy #[id number], [address]gerald, 11/05/19 9:35:0... Start Date: 12/24/19 Status: Ordered amLODIPine 5 mg oral tablet See Instructions, # 28 tablet, Refills 2 Tot. Refills 2, TAKE 1 TABLET BY MOUTH EVERY DAY, [facility]/pharmacy #[id number] Start Date: 03/26/19 Status: Ordered amLODIPine 5 mg oral tablet 5 mg, 1, tablet, By Mouth, Daily, # 30 tablet, Refills 5, Tot. Refills 5, Maintenance, 11/26/19 14:40:00 EDT, Route to Pharmacy Electronically, [facility]/pharmacy #[id number], 183, cm, 11/05/19 9:35:00 EDT, Height, Dry Weight Start Date: 11/26/19 Stop Date: 05/24/20 Status: Ordered atorvastatin 40 mg oral tablet See Instructions, TAKE 1 TABLET BY MOUTH EVERY DAY, # 28 tablet, 5 Refills, Soft Stop, 08/13/19 11:46:00 EDT, [facility]/pharmacy #[id number], 183, cm, 05/25/19 15:06:00 EST, Height, 88.3, kg, 08/31/17 3:30:00 EDT, Dry Weight Start Date: 08/13/19 Status: Ordered buPROPion 150 mg/24 hours (XL) oral tablet, extended release 1 tablet = 150 mg, By Mouth, Every 24 hours, # 30 tablet, 5 Refills, Maintenance, 10/26/19 13:15:00EDT, ER Tablet, [facility]/pharmacy #[id number], 1 tablet By Mouth Every 24 hours, 183, cm, 05/25/19 15:06:00 EST, Height, Dry Weight Start Date: 10/26/19 Status: Ordered buPROPion 150 mg/24 hours (XL) oral tablet, extended release 1 tablet = 150 mg, By Mouth, Every 24 hours, # 30 tablet, 5 Refills, Maintenance, 05/20/19 10:41:00EST, ER Tablet, [facility]/pharmacy #[id number], Bubble pack and delivery, 1 tablet By Mouth Every 24 hours, 183, cm, 01/23/19 14:41:00 EDT, Height, 88.3, kg, 08/31... Start Date: 05/20/19 Status: Ordered carvedilol 12.5 mg oral tablet 12.5 mg, 1, tablet, By Mouth, 2 times a day, # 60 tablet, Refills 5, Tot. Refills 5, Soft Stop, 10/26/19 11:37:00 EDT, Route to Pharmacy Electronically, [facility]/pharmacy #[id number], 183, cm, 05/25/19 15:06:00EST, Height Start Date: 10/26/19 Status: Ordered clopidogrel 75 mg oral tablet 75 mg, 1, tablet, By Mouth, Daily, # 30 tablet, Refills 5, Tot. Refills 5, Maintenance, 12/24/19 13:07:00 EDT, Route to [facility]ically, [id number], 183, cm, 11/05/19 9:35:00 EDT, Height, Dry Weight Start Date: 12/24/19 Status: Ordered [facility] B[facility] 1,000 MCG TABLET See Instructions, # 30 tablet, TAKE 1 TABLET BY MOUTH EVERY DAY, [id number] Start Date: 03/20/19 Status: Ordered docusate sodium 100 mg oral capsule 100 mg, 1, capsule, By Mouth, 3 times a day, Bubble Pack and Delivery, # 90 capsule, Refills 5, Tot. Refills 5, Maintenance, 11/22/17 13:28:22 EDT, Route to Pharmacy Electronically, [id number], [facility]/pharmacy #[id number] Start Date: 11/22/17 Stop Date: 05/21/18 Status: Ordered Eliquis 5 mg oral tablet 1 tablet = 5 mg, By Mouth, 2 times a day, # 60 tablet, 5 Refills, Maintenance, 05/21/19 10:06:00 EST, Tablet, [id number] 183, cm, 01/23/19 14:41:00 EDT, Height, 88.3, kg, 08/31/17 3:30:00 EDT, Dry Weight Start Date: 05/21/19 Status: Ordered Eliquis 5 mg oral tablet 1 tablet = 5 mg, By Mouth, 2 times a day, # 60 tablet, 3 Refills, Soft Stop, 10/26/19 13:50:00 EDT[id number] 183, cm, 05/25/19 15:06:00 EST, Height Start Date: 10/26/19 Stop Date: 02/23/20 Status: Ordered furosemide 40 mg oral tablet 40 mg, 1, tablet, By Mouth, Daily, # 30 tablet, Refills 5, Tot. Refills 5, Maintenance, 10/26/19 13:16:00 EDT, [id number] 183, cm, 05/25/19 15:06:00 EST, Height, Dry Weight Start Date: 10/26/19 Status: Ordered furosemide 40 mg oral tablet 40 mg, 1, tablet, By Mouth, 2 times a day, # 60 tablet, Refills 1, Tot. Refills 1, Soft Stop, 10/26/19 13:50:00 EDT, [id number] previous script. Pt is on 2 tabs daily, 183, cm, 05/25/19 15:06:00... Start Date: 10/26/19 Stop Date: 12/25/19 Status: Ordered hydrALAZINE 25 mg oral tablet 25 mg, 1, tablet, By Mouth, 2 times a day, # 60 tablet, Refills 5, Tot. Refills 5, Maintenance, 06/18/19 14:34:00 EST, Route to Pharmacy Electronically, [facility]/pharmacy #[id number], 183, cm, 05/25/19 15:06:00EST, Height, 88.3, kg, 08/31/17 3:30:00 EDT, Dry We... Start Date: 06/18/19 Stop Date: 12/15/19 Status: Ordered hydrALAZINE 50 mg oral tablet 1 tablet = 50 mg, By Mouth, 3 times a day, dose change, # 90 tablet, 1 Refills, Maintenance, 09/10/19 10:37:00 EDT, Tablet, [facility]/pharmacy #[id number], 183, cm, 05/25/19 15:06:00 EST, Height Start Date: 09/10/19 Stop Date: 11/09/19 Status: Ordered isosorbide mononitrate 60 mg oral tablet, extended release 60 mg, 1, tablet, By Mouth, Daily in AM, # 30 tablet, Refills 5, Tot. Refills 5, Soft Stop, 09/11/19 14:15:00 EDT, Route to Pharmacy Electronically, [facility]/pharmacy #[id number], 183, cm, 05/25/19 15:06:00 EST, Height, Dry Weight Start Date: 09/11/19 Stop Date: 03/09/20 Status: Ordered NIFEdipine 30 mg oral tablet, extended release 30 mg, 1, tablet, By Mouth, Daily, Bubble Pack and Delivery, # 30 tablet, Refills 3, Tot. Refills 3, Maintenance, 03/27/18 8:38:30 EST, Route to Pharmacy Electronically, [id number], [facility]/pharmacy #[id number] Start Date: 03/27/18 Status: Ordered nitroglycerin 0.4 mg sublingual tablet 1 tablet = 0.4 mg, Sublingual, Every 5 minutes, PRN Chest Pain, # 25 tablet, 3 Refills, Maintenance, 08/24/19 15:40:00 EDT, [facility]/pharmacy #[id number], 183, cm, 05/25/19 15:06:00 EST, Height, 88.3, kg, 08/31/17 3:30:00 EDT, Dry Weight Start Date: 08/24/19 Stop Date: 12/22/19 Status: Ordered oxyCODONE 30 mg oral tablet 2 tablet = 60 mg, By Mouth, Every 3 hours, 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 Refills 2, TAKE 1 TABLET BY MOUTH EVERY DAY, [facility]/pharmacy #[id number] Start Date: 02/26/19 Status: Ordered pantoprazole 40 mg oral delayed release tablet 1 tablet = 40 mg, By Mouth, Daily, # 30 tablet, 2 Refills, Maintenance, 10/26/19 13:50:00 EDT, EC Tablet, 183, cm, 05/25/19 15:06:00 EST, Height, Dry Weight Start Date: 10/26/19 Status: Ordered Plavix 75 mg oral tablet 75 mg, 1, tablet, By Mouth, Daily, # 30 tablet, Refills 5, Tot. Refills 5, Maintenance, 01/29/19 17:07:02 EDT, Route to Pharmacy Electronically, [id number], [facility]/pharmacy #[id number], Bubble pack and Delivery Start Date: 01/29/19 Stop Date: 07/28/19 Status: Ordered potassium chloride 10 mEq oral tablet, extended release 1 tablet = 10 mEq, By Mouth, 2 times a day, # 60 tablet, 2 Refills, Maintenance, 10/26/19 13:50:00 EDT, ER Tablet, [facility]/pharmacy #[id number], 183, cm, 05/25/19 15:06:00 EST, Height Start Date: 10/26/19 Stop Date: 01/24/20 Status: Ordered sertraline 100 mg oral tablet 1 tablet = 100 mg, By Mouth, Daily, # 30 tablet, 6 Refills, Maintenance, 07/16/19 14:54:00 EST, Tablet, [facility]/pharmacy #[id number], 183, cm, 05/25/19 15:06:00 EST, Height, 88.3, kg, 08/31/17 3:30:00 EDT, DryWeight Start Date: 07/16/19 Status: Ordered sertraline 100 mg oral tablet 1 tablet = 100 mg, By Mouth, Daily, # 90 tablet, 1 Refills, Maintenance, 01/29/19 8:25:24 EDT, Tablet, Bubble pack and delivery Start Date: 01/29/19 Stop Date: 07/28/19 Status: Ordered spironolactone 25 mg oral tablet See Instructions, # 30 tablet, Refills 1 Tot. Refills 1, TAKE 1 TABLET BY MOUTH EVERY DAY, [facility]/pharmacy #[id number] Start Date: 03/26/19 Status: Ordered spironolactone 25 mg oral tablet 25 mg, 1, tablet, By Mouth, Daily, # 30 tablet, Refills 1, Tot. Refills 1, Maintenance, 05/21/19 10:07:00 EST, Route to Pharmacy Electronically, [facility]/pharmacy #[id number], 183, cm, 01/23/19 14:41:00 EDT, Height, 88.3, kg, 08/31/17 3:30:00 EDT, Dry Weight Start Date: 05/21/19 Status: Ordered spironolactone 25 mg oral tablet 25 mg, 1, tablet, By Mouth, Daily, # 30 tablet, Refills 1, Tot. Refills 1, Maintenance, 11/26/19 14:50:00 EDT, Route to Pharmacy Electronically, [facility]/pharmacy #[id number], 183, cm, 11/05/19 9:35:00 EDT, Height, Dry Weight Start Date: 11/26/19 Stop Date: 01/25/20 Status: Ordered sucralfate 1 gm oral tablet 1 Gm, 1, tablet, By Mouth, 3 times a day before meals and bedtime, # 120 tablet, Refills 2, Tot. Refills 2, Soft Stop, 06/18/19 9:36:00 EST, Route to Pharmacy Electronically, [facility]/pharmacy #[id number], 183,cm, 05/25/19 15:06:00 EST, Height, 88.3, kg, 08/31/... Start Date: 06/18/19 Stop Date: 09/16/19 Status: Ordered sucralfate 1 gm oral tablet 1 Gm, 1, tablet, By Mouth, 3 times a day before meals and bedtime, # 120 tablet, Refills 2, Tot. Refills 2, Maintenance, 11/26/19 8:36:00 EDT, Route to Pharmacy Electronically, [facility]/pharmacy #[id number], 183, cm, 11/05/19 9:35:00 EDT, Height, Dry Weight Start Date: 11/26/19 Status: Ordered Vitamin B-12 1000 mcg oral tablet See Instructions, # 28 tablet, Refills 1 Tot. 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 at [facility]. 5In the past; states this has resolved Social History Social History Type Response Smoking Status Never smoker entered on: 08/24/16 Sex
--- OUTSIDE RECORDS SUMMARY | 2023-11-18 12:32 | XMS_ITS | Continuity of Care Document ---
Author Organization [facility] Adult Address [address] [place] [address]- Care Team Providers Care Clinical Rehab Specialist Name Role Phone Radha ODONNELL, Hannah Primary Care Physician Encounter [facility] Date(s): 04/12/23 - 05/12/23 [facility] Adult [address] [place] [phone]- Allergies, Adverse Reactions, Alerts Substance Reaction Severity [...] 01/09/23 7:22:00 EDT, Route to Pharmacy Electronically, [id number], 183, cm, 10/08/22 16:18:00 EDT, Height, 71.3, kg, 08/08/21 0:23:00 EDT, Dry Weight Start Date: 01/09/23 Status: Ordered amLODIPine 5 mg oral tablet 1 tablet, By Mouth, Daily, # 28 tablet, 5 Refills, Maintenance, 11/25/22 16:21:00 EDT, [facility], 183, cm, 10/08/22 16:18:00 EDT, Height, 71.3, kg, 08/08/21 0:23:00 EDT, Dry Weight Start Date: 11/25/22 Status: Ordered atorvastatin 40 mg oral tablet 1 tablet, By Mouth, Daily, # 28 tablet, 2 Refills, Maintenance, 01/09/23 7:23:00 EDT, [facility], 183, cm, 10/08/22 16:18:00 EDT, Height, 71.3, [...] EDT, Route to Pharmacy Electronically, [facility], 183, cm, 10/08/22 16:18:00 EDT, Height, 71.3, kg, 08/08/21 0:23:00 EDT, Dry Weight Start Date: 11/25/22 Status: Ordered cholecalciferol 50,000 intl units oral capsule 1 capsule = 50,000 International_Units, By Mouth, Every week, # 13 capsule, 3 Refills, Maintenance,03/19/23 15:28:00 EDT, Capsule, [facility]/pharmacy #[id number], Partial fill upon patient request if [...] EDT, Route to Pharmacy Electronically, [facility], 183, cm, 03/16/22 8:31:00 EDT, Height, 71.3, [...] 6 Refills, Maintenance, 05/14/2216:30:00 EST, [facility], 183, cm, 03/16/22 8:31:00 EDT, Height, 71.3, kg, 08/08/21 0:23:00 EDT, Dry Weight Start Date: 05/14/22 Status: Ordered Eliquis 5 mg oral tablet 1 tablet, By Mouth, 2 times a day, # 56 tablet, 6 Refills, [facility], 183, cm, 08/12/21 14:20:00 EDT, Height, 71.3, kg, 08/08/21 0:23:00 EDT, Dry Weight Start Date: 09/26/21 Status: Ordered Eliquis 5 mg oral tablet See Instructions, TAKE 1 TABLET BY MOUTH TWICE A DAY, # 56 tablet, 6 Refills, Maintenance, 11/30/2314:39:00 EDT, [facility], 183, cm, 10/08/22 16:18:00 EDT, Height, 71.3, kg, 08/08/21 0:23:00 EDT, Dry Weight Start Date: 11/30/22 Status: Ordered furosemide 40 mg oral tablet 1, tablet, By Mouth, 2 times a day, # 56 tablet, Refills 2, Tot. Refills 2, Maintenance, 04/21/23 18:37:00 EST, Route to Pharmacy Electronically, [facility]/pharmacy #[id number], 183, cm, 03/28/23 11:43:00 EST, Height, [...] tablet, 2 Refills, Maintenance, 04/27/23 13:02:00 EST, [facility] 75734, 183, cm, 03/28/23 11:43:00 EST, Height, 71.3, kg, 08/08/21 0:23:00 EDT, Dry Weight Start Date: 04/27/23 Status: Ordered isosorbide mononitrate 60 mg oral tablet, extended release 1 tablet, By Mouth, Daily in AM, # 28 tablet, 5 Refills, Maintenance, 04/21/23 18:37:00 EST, [facility]/pharmacy #[id number], 183, cm, 03/28/23 11:43:00 EST, Height, 71.3, kg, 08/08/21 0:23:00 EDT, Dry Weight Start Date: 04/21/23 Stop Date: 10/06/23 Status: Ordered Mylanta Maximum Strength oral suspension 5 mL, By Mouth, 4 times a day, PRN for control of stomach acid, # 200 mL, 1 Refills, Maintenance, 08/12/21 13:46:00 EDT, Suspension, [facility]/pharmacy #[id number], Partial fill upon patient request if the prescription is for a schedule II opioid drug., 5 mL By M... 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 [email or web address] 03/28/23, # 112 tablet, 0 Refills, Maintenance, 03/28/23 7:01:00 EST, [facility]/pharmacy #[id number], 7 days as needs testing performed [...] Start Date: 11/30/22 Status: Ordered Potassium Chloride (Yfs-Vrbk-Pvm 10) 10 mEq oral tablet, extended release See Instructions, TAKE 2 TABLETS BY MOUTH EVERY MORNING AND TAKE 1 TABLET EVERY EVENING, # 84 tablet, 2 Refills, Maintenance, 04/27/23 13:02:00 EST, [facility], 183, cm, 03/28/23 11:43:00 EST, Height, 71.3, kg, 08/08/21 0:23:00 EDT, Dry Weight Start Date: 04/27/23 Status: Ordered sertraline 100 mg oral tablet 1 tablet, By Mouth, Daily, # 28 tablet, 5 Refills, Maintenance, 06/09/22 8:26:00 EST, [facility], 183, cm, 03/16/22 8:31:00 EDT, Height, 71.3, kg, 08/08/21 0:23:00 EDT, Dry Weight Start Date: 06/09/22 Status: Ordered sertraline 100 mg oral tablet See Instructions, TAKE 1 TABLET BY MOUTH EVERY DAY, # 28 tablet, 5 Refills, Maintenance, 11/30/22 15:39:00 EDT, [facility], 183, cm, 10/08/22 16:18:00 EDT, Height, 71.3, kg, 08/08/21 0:23:00 EDT, Dry Weight Start Date: 11/30/22 Status: Ordered spironolactone 25 mg oral tablet 1, tablet, By Mouth, Daily, # 28 tablet, Refills 4, Maintenance, 07/08/22 11:30:00 EST, Route to Pharmacy Electronically, [facility], 183, cm, 03/16/22 8:31:00 EDT, Height, 71.3, kg, 08/08/21 0:23:00 EDT, Dry Weight Start Date: 07/08/22 Status: Ordered spironolactone 25 mg oral tablet See Instructions, TAKE 1 TABLET BY MOUTH EVERY DAY, # 28 tablet, Refills 4, Maintenance, 11/30/22 15:38:00 EDT, Instructions Replace Required Details, Route to Pharmacy Electronically, [facility] 613[facility], 183, cm, 10/08/22 16:18:00 EDT, Height, 71.3, kg,... Start Date: 11/30/22 Status: Ordered sucralfate 1 gm oral tablet 1, tablet, By Mouth, 3 times a day before meals, AND BEDTIME., # 112 tablet, Refills 5, Maintenance, 02/04/23 16:32:00 EDT, Route to Pharmacy Electronically, [facility] [id number], 183, cm, 10/08/22 16:18:00 EDT, Height, 71.3, kg, 08/08/21 0:23:00 EDT, Dry... Start Date: 02/04/23 Status: Ordered Vitamin B-12 1000 mcg oral tablet 1, tablet, By Mouth, Daily, # 28 tablet, Refills 11, Tot. Refills 11, Maintenance, 04/21/23 18:37:00 EST, Route to Pharmacy Electronically, [facility]/pharmacy #[id number], 183, cm, 03/28/23 11:43:00 EST, Height,71.3, [...] disease by Rolando Rubin M.D. at [facility]. 4In the past; states this has resolved Social History Social History Type Response Smoking Status Never smoker entered on: 08/24/16 Sex Patient Care team information Care Team Personnel Name: Irish Samuel RN Position: S RN Member Role: Primary Care Nurse Name: Mireya Ramsey Position: [facility] RN Supv Member Role: Primary Care Nurse Name: Rhea Betancur RN Position: [facility] SN RN Member Role: Primary Care Nurse Name: Hugo Ayala RN Position: [facility] RN Member Role: Primary Care Nurse Name: Lorna Faust RN Position: [facility] RN Member Role: Primary Care Nurse Name: David Gonzalez MD Position: [facility] Renal MD Member Role: Lifetime Consulting Physician Address: Address: [address] [place] [address] [address] [facility] [place] [address]- [place] Name: Hannah Garcia NP Position: [facility] PCO Associate Professional Member Role: PCP Address: Address: [address] [place] [address], [address] [place] [address]- [place] Name: Eduin Arias MD Position: [facility] Renal MD Member Role: Lifetime Consulting Physician Address: Address: [address] [place] [address], [address] [address]- [place] Name: Ana Herrera RN Position: [facility] RN Member Role: Primary Care Nurse Name: Cadence Quach RN Position: [facility] OB RN Member Role: Primary Care Nurse Name: Maggy Tsang RN Position: [facility] RN Member Role: Primary Care Nurse Name: Keyla Keys RN Position: [facility] SN RN Member Role: Primary Care Nurse Name: Марина Guevara RN Position: [facility] SN RN Member Role: Primary Care Nurse Name: Lyn Helms RN Position: [facility] RN Member Role: Primary Care Nurse Name: Tatum Biswas RN Position: [facility] RN Member Role: Primary Care Nurse Name: Hugo Bateman RN Position: [facility] RN Member Role: Primary Care Nurse Name: Petros Levy RN Position: [facility] RN Member Role: Primary Care Nurse Name: Izabella Braun RN Position: [facility] RN Member Role: Primary Care Nurse Name: Lyndsay King RN Position: [facility] RN Member Role: Primary Care Nurse Name: Felicia Kerr NP Position: [facility] Medical Student Member Role: Primary Care Nurse Name: Hafsa Goyal RN Position: [facility] RN Member Role: Primary Care Nurse Name: Rosalio Jack RN Position: [facility] RN Member Role: Primary Care Nurse Name: Carmela Houser RN Position: [facility] SN RN Member Role: Primary Care Nurse Name: Michael Dickson RN Position: [facility] RN Member Role: Primary Care Nurse Name: Jessica Lema RN Position: [facility] RN Member Role: Primary Care Nurse Name: Phu Flynn MD Position: [facility] Renal MD Member Role: Lifetime Consulting Physician Address: Address: [address] [place] [address] [facility] [address] Name: Yesica Serna RN Position: [facility] OB RN Member Role: Primary Care Nurse Name: Jesusita Lou RN Position: [facility] OB RN Member Role: Primary Care Nurse Name: Husam Elizalde RN Position: [facility] RN Member Role: Primary Care Nurse Name: Marshall Byrd RN Position: [facility] RN Member Role: Primary Care Nurse Care Team Related Persons Name: DUTCH MAR Address: home [place], [place] Name: ALL AYERS Address: home [address] [place], [place] Name: ALL MANZANARES Address: home [address] [place], [place] Name: CHRISTEN GRIMALDO Address: home [address], [place]
--- OUTSIDE RECORDS SUMMARY | 2023-11-18 12:33 | XMS_ITS | Continuity of Care Document ---
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 Name Role Phone Radha ODONNELL, Hannah Primary Care Physician Encounter [facility] Date(s): 04/29/22 - 08/27/22 [facility] [address] [place] [id number] Attending Physician: Yoshi Almazan MD Admitting Physician: Yoshi Almazan MD Referring Physician: Yoshi Almazan MD Allergies, Adverse Reactions, Alerts Substance Reaction Severity [...] Daily, # 28 tablet, Refills 2, Maintenance, 07/08/22 11:30:00 EST, Route to Pharmacy Electronically, [id number], 183, cm, 03/16/22 8:31:00 EDT, Height, 71.3, kg, 08/08/21 0:23:00 EDT, Dry Weight Start Date: 07/08/22 Status: Ordered amLODIPine 5 mg oral tablet 1 tablet, By Mouth, Daily, # 28 tablet, 4 Refills, Maintenance, 04/13/22 11:43:00 EST, [facility] 46908, 183, cm, 03/16/22 8:31:00 EDT, Height, 71.3, kg, 08/08/21 0:23:00 EDT, Dry Weight Start Date: 04/13/22 Status: Ordered atorvastatin 40 mg oral tablet 1 tablet, By Mouth, Daily, # 28 tablet, 5 Refills, Maintenance, 07/08/22 11:30:00 EST, [facility] 51604, 183, cm, 03/16/22 8:31:00 EDT, Height, 71.3, kg, 08/08/21 0:23:00 EDT, Dry Weight Start Date: 07/08/22 Status: Ordered buPROPion 150 mg/24 hours (XL) oral tablet, extended release See Instructions, TAKE 1 TABLET BY MOUTH EVERY 24 HOURS, # 28 tablet, 5 Refills, 03/18/22 11:05:00 EDT, [facility]/pharmacy #[id number], 28, TAKE 1 TABLET BY MOUTH EVERY 24 HOURS, 183, cm, 03/16/22 8:31:00 EDT, Height, 71.3, kg, 08/08/21 0:23:00 EDT, Dry Weight Start Date: 03/18/22 Status: Ordered buPROPion 150 mg/24 hours (XL) oral tablet, extended release 1 tablet, By Mouth, Every 24 hours, # 28 tablet, 2 Refills, [facility] 30009, 28, TAKE 1 TABLET BY MOUTH EVERY 24 HOURS, 183, cm, 08/12/21 14:20:00 EDT, Height, 71.3, kg, 08/08/21 0:23:00 EDT, Dry Weight Start Date: 09/25/21 Status: Ordered carvedilol 12.5 mg oral tablet 1, tablet, By Mouth, 2 times a day, # 56 tablet, Refills 5, Route to Pharmacy Electronically, [facility] 84115, 183, cm, 05/04/21 3:09:00 EST, Height, 81.7, kg, 04/16/21 3:06:00 EST, Dry Weight Start Date: 07/07/21 Status: Ordered carvedilol 12.5 mg oral tablet See Instructions, TAKE 1 TABLET BY MOUTH TWICE A DAY, # 56 tablet, Refills 5, Tot. Refills 5, 03/18/22 11:05:00 EDT, Instructions Replace Required Details, Route to Pharmacy Electronically, [facility]/pharmacy #[id number], 183, cm, 03/16/22 8:31:00 EDT, Height, 71... Start Date: 03/18/22 Status: Ordered clopidogrel 75 mg oral tablet 1, tablet, By Mouth, Daily, # 28 tablet, Refills 5, Route to Pharmacy Electronically, [facility] 37446, 183, cm, 05/04/21 3:09:00 EST, Height, 81.7, kg, 04/16/21 3:06:00 EST, Dry Weight Start Date: 07/02/21 Status: Ordered clopidogrel 75 mg oral tablet 75 mg, 1, tablet, By Mouth, Daily, for 30 days, # 30 tablet, Refills 5, Tot. Refills 5, Physician Stop 09/14/22 13:18:00 EDT, 03/18/22 13:18:00 EDT, [id number], cm, 03/16/22 8:31:00 EDT, Height, 71.3, kg,... Start Date: 03/18/22 Stop Date: 09/14/22 Status: Ordered Eliquis 5 mg oral tablet See Instructions, TAKE 1 TABLET BY MOUTH TWICE A DAY, # 56 tablet, 6 Refills, Maintenance, 05/14/2216:30:00 EST, [facility] 41376, 183, cm, 03/16/22 8:31:00 EDT, Height, 71.3, kg, 08/08/21 0:23:00 EDT, Dry Weight Start Date: 05/14/22 Status: Ordered Eliquis 5 mg oral tablet 1 tablet, By Mouth, 2 times a day, # 56 tablet, 6 Refills, [facility] 53485, 183, cm, 08/12/21 14:20:00 EDT, Height, 71.3, kg, 08/08/21 0:23:00 EDT, Dry Weight Start Date: 09/26/21 Status: Ordered furosemide 40 mg oral tablet 1, tablet, By Mouth, 2 times a day, # 56 tablet, Refills 2, Maintenance, 07/08/22 11:30:00 EST, Route to Pharmacy Electronically, [facility] [id number], 183, cm, 03/16/22 8:31:00 EDT, Height, 71.3, kg, 08/08/21 0:23:00 EDT, Dry Weight Start Date: 07/08/22 Status: Ordered hydrALAZINE 50 mg oral tablet 1 tablet, By Mouth, 3 times a day, # 84 tablet, 1 Refills, Maintenance, 08/03/22 8:30:00 EDT, [facility], 183, cm, 03/16/22 8:31:00 EDT, Height, 71.3, kg, 08/08/21 0:23:00 EDT, Dry Weight Start Date: 08/03/22 Status: Ordered isosorbide mononitrate 60 mg oral tablet, extended release 1 tablet, By Mouth, Daily in AM, # 28 tablet, 4 Refills, Maintenance, 04/13/22 11:43:00 EST, [facility], 183, cm, 03/16/22 8:31:00 EDT, Height, 71.3, kg, 08/08/21 0:23:00 EDT, Dry Weight Start Date: 04/13/22 Status: Ordered Mylanta Maximum Strength oral suspension 5 mL, By Mouth, 4 times a day, PRN for control of stomach acid, # 200 mL, 1 Refills, Maintenance, 08/12/21 13:46:00 EDT, Suspension, [id number], Partial fill upon patient request [...] 60 mg, By Mouth, Every 3 hours, SKIRT TRIMMER checked. fill on 08/30/22, # 224 tablet, 0 Refills, Maintenance, 08/27/22 10:43:00 EDT, [id number], may partial fill upon request; fill 07/19/2022,183, cm, 03/16/22 8:31:00 EDT, Height, 71.3, kg, 0... Start Date: 08/27/22 Stop Date: 09/10/22 Status: Ordered pantoprazole 40 mg oral delayed release tablet 1 tablet, By Mouth, Daily, # 28 tablet, 4 Refills, Maintenance, 07/08/22 11:30:00 EST, 183, cm, 03/16/22 8:31:00 EDT, Height, 71.3, kg, 08/08/21 0:23:00 EDT, Dry Weight Start Date: 07/08/22 Status: Ordered Potassium Chloride (Rng-Frvy-Xsu 10) 10 mEq oral tablet, extended release See Instructions, TAKE 2 TABLETS BY MOUTH EVERY MORNING AND TAKE 1 TABLET EVERY EVENING, # 84 tablet, 2 Refills, Maintenance, 06/09/22 9:19:00 EST, [facility] 359[facility], 183, cm, 03/16/22 8:31:00 EDT, Height, 71.3, kg, 08/08/21 0:23:00 EDT, Dry Weight Start Date: 06/09/22 Status: Ordered sertraline 100 mg oral tablet 1 tablet, By Mouth, Daily, # 28 tablet, 5 Refills, Maintenance, 06/09/22 8:26:00 EST, [facility] 53116, 183, cm, 03/16/22 8:31:00 EDT, Height, 71.3, kg, 08/08/21 0:23:00 EDT, Dry Weight Start Date: 06/09/22 Status: Ordered spironolactone 25 mg oral tablet 1, tablet, By Mouth, Daily, # 28 tablet, Refills 4, Maintenance, 07/08/22 11:30:00 EST, Route to Pharmacy Electronically, [facility] 24107, 183, cm, 03/16/22 8:31:00 EDT, Height, 71.3, kg, 08/08/21 0:23:00 EDT, Dry Weight Start Date: 07/08/22 Status: Ordered sucralfate 1 gm oral tablet 1, tablet, By Mouth, 3 times a day before meals, AND BEDTIME., # 112 tablet, Refills 2, Maintenance, 08/03/22 8:30:00 EDT, Route to Pharmacy Electronically, [facility] 10960, 183, cm, 03/16/22 8:31:00EDT, Height, 71.3, kg, 08/08/21 0:23:00 EDT, Dry We... Start Date: 08/03/22 Status: Ordered Vitamin B-12 1000 mcg oral tablet See Instructions, TAKE 1 TABLET BY MOUTH EVERY DAY, # 28 tablet, Refills 5, Maintenance, 05/14/22 16:30:00 EST, Instructions Replace Required Details, Route to Pharmacy Electronically, [facility] 59293, 183, cm, 03/16/22 8:31:00 EDT, Height, 71.3, kg,... Start Date: 05/14/22 Status: Ordered Vitamin B-12 1000 mcg oral tablet 1, tablet, By Mouth, Daily, # 28 tablet, Refills 5, Route to Pharmacy Electronically, [facility] 94726, 183, cm, 08/12/21 14:20:00 EDT, Height, 71.3, [...] artery disease by Rolando Rubin M.D. at [facility]. 4In the past; states this has resolved Social History Social History Type Response Smoking Status Never smoker entered on: 08/24/16 Sex Patient Care team information Care Team Personnel Name: Irish Samuel RN Position: [facility] RN Member Role: Primary Care Nurse Name: Mireya Ramsey Position: [facility] RN Supv Member Role: Primary Care Nurse Name: Rhea Betancur RN Position: [facility] SN RN Member Role: Primary Care Nurse Name: Hugo Ayala RN Position: [facility] RN Member Role: Primary Care Nurse Name: Lorna Faust RN Position: [facility] RN Member Role: Primary Care Nurse Name: Wilner Feliciano RN Position: [facility] RN Supv Member Role: Primary Care Nurse Name: David Gonzalez MD Position: [facility] Renal MD Member Role: Lifetime Consulting Physician Address: Address: [address] [place] [address], [address] [facility] [place] [address]- Name: Hannah Garcia NP Position: [facility] PCO Associate Professional Member Role: PCP Address: Address: [address] [place] [address], 3rd Floor [facility] [place] [address]- [place] Name: Eduin Arias MD Position: [facility] Physician (General Medicine) Member Role: Lifetime Consulting Physician Address: Address: [address] [place] [address], [address] [place] [address]- [place] Name: Ana Herrera RN Position: [facility] RN Member Role: Primary Care Nurse Name: aCrlos Montez RN Position: [facility] RN Member Role: Primary Care Nurse Name: Cadence Quach RN Position: [facility] OB RN Member Role: Primary Care Nurse Name: Maggy Tsang RN Position: [facility] RN Member Role: Primary Care Nurse Name: Keyla Keys RN Position: [facility] SN RN Member Role: Primary Care Nurse Name: Марина Guevara RN Position: [facility] RN Member Role: Primary Care Nurse Name: Lyn Helms RN Position: [facility] RN Member Role: Primary Care Nurse Name: Tatum Biswas RN Position: [facility] RN Member Role: Primary Care Nurse Name: Hugo Bateman RN Position: [facility] RN Member Role: Primary Care Nurse Name: Petros Levy RN Position: [facility] RN Member Role: Primary Care Nurse Name: Charly Burns RN Position: [facility] RN Member Role: Primary Care Nurse Name: Izabella Braun RN Position: [facility] RN Member Role: Primary Care Nurse Name: Lyndsay King RN Position: [facility] RN Member Role: Primary Care Nurse Name: Felicia Kerr RN Position: [facility] RN Member Role: Primary Care Nurse Name: Hafsa Goyal RN Position: [facility] RN Member Role: Primary Care Nurse Name: Rosalio Jack RN Position: [facility] RN Member Role: Primary Care Nurse Name: Geovanna Hill RN Position: [facility] RN Member Role: Primary Care Nurse Name: Carmela Houser RN Position: [facility] SN RN Member Role: Primary Care Nurse Name: Michael Dickson RN Position: [facility] RN Member Role: Primary Care Nurse Name: Jessica Lema RN Position: [facility] RN Member Role: Primary Care Nurse Name: Phu Flynn MD Position: [facility] Renal MD Member Role: Lifetime Consulting Physician Address: Address: [address] [place] [address] [facility] [address] Name: Yesica Serna RN Position: [facility] OB RN Member Role: Primary Care Nurse Name: Jesusita Lou RN Position: [facility] OB RN Member Role: Primary Care Nurse Name: Karen Quach RN Position: [facility] PCO w/OE and EZ Script Member Role: Primary Care Nurse Name: Marshall Byrd RN Position: [facility] RN Member Role: Primary Care Nurse Care Team Related Persons Name: MELLODUTCH HURTADO Address: home [place], [place] Name: ALL AYERS Address: home [address] [place], [place] Name: ALL MANZANARES Address: home [address] [place], [place] Name: CHRISTEN GRIMALDO Address: home [address] [place], [place]
--- OUTSIDE RECORDS SUMMARY | 2023-11-18 12:33 | XMS_ITS | Continuity of Care Document ---
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 Refills 2,Soft Stop, 10/01/19 8:48:00 EDT, Instructions Replace Required Details, Route to Pharmacy Electronically, [facility]/pharmacy #[id number], 183, cm, 05/25/19 15:06:0... Start Date: 10/01/19 Status: Ordered amLODIPine 5 mg oral tablet See Instructions, # 28 tablet, Refills 2 Tot. Refills 2, TAKE 1 TABLET BY MOUTH EVERY DAY, [facility]/pharmacy #[id number] Start Date: 03/26/19 Status: Ordered amLODIPine 5 mg oral tablet 5 mg, 1, tablet, By Mouth, Daily, # 30 tablet, Refills 5, Tot. Refills 5, Maintenance, 11/26/19 14:40:00 EDT, [id number], cm, 11/05/19 9:35:00 EDT, Height, Dry Weight Start Date: 11/26/19 Stop Date: 05/24/20 Status: Ordered atorvastatin 40 mg oral tablet See Instructions, TAKE 1 TABLET BY MOUTH EVERY DAY, # 28 tablet, 5 Refills, Soft Stop, 08/13/19 11:46:00 EDT, [id number] 183, cm, 05/25/19 15:06:00 EST, Height, 88.3, kg, 08/31/17 3:30:00 EDT, Dry Weight Start Date: 08/13/19 Status: Ordered buPROPion 150 mg/24 hours (XL) oral tablet, extended release 1 tablet = 150 mg, By Mouth, Every 24 hours, # 30 tablet, 5 Refills, Maintenance, 10/26/19 13:15:00EDT, ER Tablet, [id number], 1 tablet By Mouth Every 24 hours, 183, cm, 05/25/19 15:06:00 EST, Height, Dry Weight Start Date: 10/26/19 Status: Ordered buPROPion 150 mg/24 hours (XL) oral tablet, extended release 1 tablet = 150 mg, By Mouth, Every 24 hours, # 30 tablet, 5 Refills, Maintenance, 05/20/19 10:41:00EST, [facility] Tablet[id number], Bubble pack and delivery, 1 tablet By Mouth Every 24 hours, 183, cm, 01/23/19 14:41:00 EDT, Height, 88.3, kg, 08/31... Start Date: 05/20/19 Status: Ordered carvedilol 12.5 mg oral tablet 12.5 mg, 1, tablet, By Mouth, 2 times a day, # 60 tablet, Refills 5, Tot. Refills 5, Soft Stop, 10/26/19 11:37:00 EDT, [id number] 183, cm, 05/25/19 15:06:00EST, Height Start Date: 10/26/19 Status: Ordered clopidogrel 75 mg oral tablet 75 mg, 1, tablet, By Mouth, Daily, # 30 tablet, Refills 5, Tot. Refills 5, Maintenance, 07/16/19 14:53:00 EST, Route to Pharmacy Electronically, [facility]/pharmacy #[id number], 183, cm, 05/25/19 15:06:00 EST, Height, 88.3, kg, 08/31/17 3:30:00 EDT, Dry Weight Start Date: 07/16/19 Status: Ordered [facility] B-12 1,000 MCG TABLET See Instructions, # 30 tablet, TAKE 1 TABLET BY MOUTH EVERY DAY, [facility]/pharmacy #[id number] Start Date: 03/20/19 Status: Ordered docusate sodium 100 mg oral capsule 100 mg, 1, capsule, By Mouth, 3 times a day, Bubble Pack and Delivery, # 90 capsule, Refills 5, Tot. Refills 5, Maintenance, 11/22/17 13:28:22 EDT, Route to Pharmacy Electronically, [id number], [facility]/pharmacy #[id number] Start Date: 11/22/17 Stop Date: 05/21/18 Status: Ordered Eliquis 5 mg oral tablet 1 tablet = 5 mg, By Mouth, 2 times a day, # 60 tablet, 5 Refills, Maintenance, 05/21/19 10:06:00 EST, Tablet, [facility]/pharmacy #[id number], 183, cm, 01/23/19 14:41:00 EDT, Height, 88.3, kg, 08/31/17 3:30:00 EDT, Dry Weight Start Date: 05/21/19 Status: Ordered Eliquis 5 mg oral tablet 1 tablet = 5 mg, By Mouth, 2 times a day, # 60 tablet, 3 Refills, Soft Stop, 10/26/19 13:50:00 EDT,[facility] #[id number], 183, cm, 05/25/19 15:06:00 EST, Height Start Date: 10/26/19 Stop Date: 02/23/20 Status: Ordered furosemide 40 mg oral tablet 40 mg, 1, tablet, By Mouth, Daily, # 30 tablet, Refills 5, Tot. Refills 5, Maintenance, 10/26/19 13:16:00 EDT, Route to Pharmacy Electronically, [facility]/pharmacy #[id number], 183, cm, 05/25/19 15:06:00 EST, Height, Dry Weight Start Date: 10/26/19 Status: Ordered furosemide 40 mg oral tablet 40 mg, 1, tablet, By Mouth, 2 times a day, # 60 tablet, Refills 1, Tot. Refills 1, Soft Stop, 10/26/19 13:50:00 EDT, [id number], [facility] replaces previous script. Pt is on 2 tabs daily, 183, cm, 05/25/19 15:06:00... Start Date: 10/26/19 Stop Date: 12/25/19 Status: Ordered hydrALAZINE 25 mg oral tablet 25 mg, 1, tablet, By Mouth, 2 times a day, # 60 tablet, Refills 5, Tot. Refills 5, Maintenance, 06/18/19 14:34:00 EST, [id number] 183, cm, 05/25/19 15:06:00EST, Height, 88.3, kg, 08/31/17 3:30:00 EDT, Dry We... Start Date: 06/18/19 Stop Date: 12/15/19 Status: Ordered hydrALAZINE 50 mg oral tablet 1 tablet = 50 mg, By Mouth, 3 times a day, dose change, # 90 tablet, 1 Refills, Maintenance, 09/10/19 10:37:00 EDT, Tablet, [facility]/pharmacy #[id number], 183, cm, 05/25/19 15:06:00 EST, Height Start Date: 09/10/19 Stop Date: 11/09/19 Status: Ordered isosorbide mononitrate 60 mg oral tablet, extended release 60 mg, 1, tablet, By Mouth, Daily in AM, # 30 tablet, Refills 5, Tot. Refills 5, Soft Stop, 09/11/19 14:15:00 EDT, Route to Pharmacy Electronically, [facility]/pharmacy #[id number], 183, cm, 05/25/19 15:06:00 EST, Height, Dry Weight Start Date: 09/11/19 Stop Date: 03/09/20 Status: Ordered NIFEdipine 30 mg oral tablet, extended release 30 mg, 1, tablet, By Mouth, Daily, Bubble Pack and Delivery, # 30 tablet, Refills 3, Tot. 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 Refills 2, TAKE 1 TABLET BY MOUTH EVERY DAY, [facility]/pharmacy #[id number] Start Date: 02/26/19 Status: Ordered pantoprazole [...] 01/29/19 17:07:02 EDT, Route to Pharmacy Electronically, [id number], [facility]/pharmacy #[id number], Bubble pack and Delivery Start Date: 01/29/19 Stop Date: 07/28/19 Status: Ordered potassium chloride 10 mEq oral tablet, extended release 1 tablet = 10 mEq, By Mouth, 2 times a day, # 60 tablet, 2 Refills, Maintenance, 10/26/19 13:50:00 EDT, ER Tablet, [facility]/pharmacy #[id number], 183, cm, 05/25/19 15:06:00 EST, Height Start Date: 10/26/19 Stop Date: 01/24/20 Status: Ordered sertraline 100 mg oral tablet 1 tablet = 100 mg, By Mouth, Daily, # 30 tablet, 6 Refills, Maintenance, 07/16/19 14:54:00 EST, Tablet, [facility]/pharmacy #[id number], 183, cm, 05/25/19 15:06:00 EST, Height, [...] TAKE 1 TABLET BY MOUTH EVERY DAY, [facility]/pharmacy #[id number] Start Date: 03/26/19 Status: Ordered spironolactone 25 mg oral tablet 25 mg, 1, tablet, By Mouth, Daily, # 30 tablet, Refills 1, Tot. Refills 1, Maintenance, 05/21/19 10:07:00 EST, Route to Pharmacy Electronically, [facility]/pharmacy #[id number], 183, cm, 01/23/19 14:41:00 EDT, Height, 88.3, kg, 08/31/17 3:30:00 EDT, Dry Weight Start Date: 05/21/19 Status: Ordered spironolactone 25 mg oral tablet 25 mg, 1, tablet, By Mouth, Daily, # 30 tablet, Refills 1, Tot. Refills 1, Maintenance, 11/26/19 14:50:00 EDT, Route to Pharmacy Electronically, [id number], 183, cm, 11/05/19 9:35:00 EDT, Height, Dry Weight Start Date: 11/26/19 Stop Date: 01/25/20 Status: Ordered sucralfate 1 gm oral tablet 1 Gm, 1, tablet, By Mouth, 3 times a day before meals and bedtime, # 120 tablet, Refills 2, Tot. Refills 2, Soft Stop, 06/18/19 9:36:00 EST, [id number] 183,cm, 05/25/19 15:06:00 EST, Height, 88.3, kg, ... Start Date: 06/18/19 Stop Date: 09/16/19 Status: Ordered sucralfate 1 gm oral tablet 1 Gm, 1, tablet, By Mouth, 3 times a day before meals and bedtime, # 120 tablet, Refills 2, Tot. Refills 2, Maintenance, 11/26/19 8:36:00 EDT, [id number] 183, cm, 11/05/19 9:35:00 EDT, Height, Dry Weight Start Date: 11/26/19 Status: Ordered Vitamin B-12 1000 mcg oral tablet See Instructions, # 28 tablet, Refills 1 Tot. Refills 1, TAKE 1 TABLET BY MOUTH EVERY DAY, [facility]/pharmacy #[id number] Start Date: 03/26/19 Status: Ordered Vitamin B12 1000 mcg oral tablet 1 tablet = 1,000 mcg, By Mouth, Daily, # 30 tablet, 2 Refills, Maintenance, 09/07/19 16:04:00 EDT, Tablet, [facility]/pharmacy #[id number], 183, cm, 05/25/19 15:06:00 EST, Height, Dry Weight Start Date: 09/07/19 Status: Ordered Problem List Condition Effective Dates [...] artery disease by Rolando Rubin M.D. at [facility]. 5In the past; states this has resolved Social History Social History Type Response Smoking Status Never smoker entered on: 08/24/16 Sex
--- OUTSIDE RECORDS SUMMARY | 2023-11-18 12:33 | XMS_ITS | Continuity of Care Document ---
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 Name Role Phone Radha ODONNELL, Hannah Primary Care Physician [phone] Encounter [facility] Date(s): 08/13/21 - 09/12/21 [facility] Adult [address] [place] [id number]- Allergies, Adverse Reactions, Alerts Substance Reaction Severity Status morphine sick to stomach Active Immunizations Given and Recorded Vaccine Date Status Refusal Reason SARS-CoV-2 (COVID-19) Ad26 vaccine 05/05/21 Given influenza virus vaccine, inactivated 02/04/11 Give n pneumococcal 23-valent vaccine 05/15/10 Given tetanus-diphtheria toxoids (Td) 02/25/06 Given Not Given Vaccine Date Status Refusal Reason influenza virus vaccine, inactivated 09/01/17 Not Given Patient Refuses Medications allopurinol 100 mg oral tablet 1, tablet, By Mouth, Daily, # 28 tablet, Refills 2, Route to Pharmacy Electronically, [id number], 183, cm, 05/04/21 3:09:00 EST, Height, 81.7, kg, 04/16/21 3:06:00 EST, Dry Weight Start Date: 07/02/21 Status: Ordered amLODIPine 5 mg oral tablet 1 tablet, By Mouth, Daily, # 28 tablet, 5 Refills, [facility] 8[facility]59, 183, cm, 08/05/20 8:57:00 EDT, Height Start Date: 04/10/21 Status: Ordered atorvastatin 40 mg oral tablet 1 tablet, By Mouth, Daily, # 28 tablet, 5 Refills, [facility] 7[facility]76, 183, cm, 05/04/21 3:09:00 EST, Height, 81.7, kg, 04/16/21 3:06:00 EST, Dry Weight Start Date: 07/01/21 Status: Ordered buPROPion 150 mg/24 hours (XL) oral tablet, extended release 1 tablet, By Mouth, Every 24 hours, # 28 tablet, 2 Refills, [facility] [id number], 28, TAKE 1 TABLET BY MOUTH EVERY 24 HOURS, 183, cm, 05/04/21 3:09:00 EST, Height, 81.7, kg, 04/16/21 3:06:00 EST, Dry Weight Start Date: 07/02/21 Status: Ordered carvedilol 12.5 mg oral tablet 1, tablet, By Mouth, 2 times a day, # 56 tablet, Refills 5, Route to Pharmacy Electronically, [id number], 183, cm, 05/04/21 3:09:00 EST, Height, 81.7, kg, 04/16/21 3:06:00 EST, Dry Weight Start Date: 07/07/21 Status: Ordered clopidogrel 75 mg oral tablet 1, tablet, By Mouth, Daily, # 28 tablet, Refills 5, Route to Pharmacy Electronically, [facility] [id number], 183, cm, 05/04/21 3:09:00 EST, Height, 81.7, kg, 04/16/21 3:06:00 EST, Dry Weight Start Date: 07/02/21 Status: Ordered Eliquis 5 mg oral tablet 1 tablet, By Mouth, 2 times a day, # 56 tablet, 6 Refills, [facility] 8[facility]35, 183, cm, 08/05/20 8:57:00 EDT, Height Start Date: 01/27/21 Status: Ordered furosemide 40 mg oral tablet 1, tablet, By Mouth, 2 times a day, # 56 tablet, Refills 2, Route to Pharmacy Electronically, [facility] [id number], 183, cm, 05/04/21 3:09:00 EST, Height, 81.7, kg, 04/16/21 3:06:00 EST, Dry Weight Start Date: 07/02/21 Status: Ordered hydrALAZINE 50 mg oral tablet 1 tablet = 50 mg, By Mouth, 3 times a day, dose change, # 90 tablet, 1 Refills, Maintenance, 09/10/19 10:37:00 EDT, Tablet, [facility]/pharmacy #[id number], 183, cm, 05/25/19 15:06:00 EST, Height Start Date: 09/10/19 Stop Date: 11/09/19 Status: Ordered isosorbide mononitrate 60 mg oral tablet, extended release 1 tablet, By Mouth, Daily in AM, # 28 tablet, 2 Refills, [facility] 81315, 183, cm, 05/04/21 3:09:00EST, Height, 81.7, kg, 04/16/21 3:06:00 EST, Dry Weight Start Date: 08/04/21 Status: Ordered Mylanta Maximum Strength oral suspension 5 mL, By Mouth, 4 times a day, PRN for control of stomach acid, # 200 mL, 1 Refills, Maintenance, 08/12/21 13:46:00 EDT, Suspension, [facility]/pharmacy #[id number], Partial fill upon patient request if the prescription is for a schedule II opioid drug., 5 mL By M... Start Date: 08/12/21 Status: Ordered nitroglycerin 0.4 mg sublingual tablet 1 tablet = 0.4 mg, Sublingual, Every 5 minutes, PRN Chest Pain, # 25 tablet, 3 Refills, Maintenance, 08/24/19 15:40:00 EDT, [facility]/pharmacy #[id number], 183, cm, 05/25/19 15:06:00 EST, Height, 88.3, kg, 08/31/17 3:30:00 EDT, Dry Weight Start Date: 08/24/19 Stop Date: 12/22/19 Status: Ordered oxyCODONE 30 mg oral tablet 2 tablet = 60 mg, By Mouth, Every 3 hours, STUDIO CONTROL OPERATOR checked. Fill on 09/01/21, # 224 tablet, 0 Refills, Acute 05/15/22 9:09:00 EST, 08/31/21 12:31:00 EDT, [facility]/pharmacy #[id number], may partial fill upon request;, 183, cm, 08/12/21 14:20:00 EDT, Height, 71.3, kg,... Start Date: 08/31/21 Stop Date: 05/15/22 Status: Ordered pantoprazole 40 mg oral delayed release tablet 1 tablet, By Mouth, Daily, # 28 tablet, 2 Refills, 08/12/21 13:46:00 EDT, 183, cm, 08/12/21 12:05:00 EDT, Height, 71.3, kg, 08/08/21 0:23:00 EDT, Dry Weight Start Date: 08/12/21 Status: Ordered Potassium Chloride (Lup-[id number]-Izq 10) 10 mEq oral tablet, extended release See Instructions, TAKE 2 TABLETS BY MOUTH EVERY MORNING AND TAKE 1 TABLET EVERY EVENING, # 84 tablet, 2 Refills, [facility] [id number], 183, cm, 08/12/21 14:20:00 EDT, Height, 71.3, kg, 08/08/21 0:23:00 EDT, Dry Weight Start Date: 09/03/21 Status: Ordered sertraline 100 mg oral tablet 1 tablet, By Mouth, Daily, # 28 tablet, 5 Refills, [facility] [id number], 183, cm, 05/04/21 3:09:00 EST, Height, 81.7, kg, 04/16/21 3:06:00 EST, Dry Weight Start Date: 06/11/21 Status: Ordered spironolactone 25 mg oral tablet 1, tablet, By Mouth, Daily, # 28 tablet, Refills 2, Tot. Refills 2, 08/12/21 13:46:00 EDT, Route toPharmacy Electronically, [facility]/pharmacy #[id number], 183, cm, 08/12/21 12:05:00 EDT, Height, 71.3, kg, 08/08/21 0:23:00 EDT, Dry Weight Start Date: 08/12/21 Status: Ordered sucralfate 1 gm oral tablet 1, tablet, By Mouth, 3 times a day before meals, AND BEDTIME., # 112 tablet, Refills 2, Tot. Refills 2, 08/12/21 13:47:00 EDT, Route to Pharmacy Electronically, [facility]/pharmacy #[id number], 183, cm, 08/12/21 12:05:00 EDT, Height, 71.3, kg, 08/08/21 0:23:00 EDT... Start Date: 08/12/21 Status: Ordered Vitamin B-12 1000 mcg oral tablet 1, tablet, By Mouth, Daily, # 28 tablet, Refills 5, Route to Pharmacy Electronically, [facility] [id number], 183, cm, 08/05/20 8:57:00 EDT, Height Start [...] artery disease by Rolando Rubin M.D. at [facility]. 3In the past; states this has resolved Social History Social History Type Response Smoking Status Never smoker entered on: 08/24/16 Sex
--- OUTSIDE RECORDS SUMMARY | 2023-11-18 12:33 | XMS_ITS | Continuity of Care Document ---
Author Organization [facility] Adult Address [address] [place] [address]- Care Team Providers Care Slot Host Name Role Phone Radha ODONNELL, Hannah Primary Care Physician [phone] Encounter [facility] Date(s): 07/02/20 - 08/01/20 [facility] Adult [address] [place] [phone]- Allergies, Adverse Reactions, Alerts Substance Reaction Severity [...] FOR 30 DAYS, # 30 tablet, Refills 5, Tot. Refills 5,Soft Stop, 05/15/20 9:35:00 EST, Instructions Replace Required Details, Route to Pharmacy Electronically, [facility]/pharmacy #[id number], 183, cm, 05/12/20 9:35:00... Start Date: 05/15/20 Status: Ordered amLODIPine 5 mg oral tablet 5 mg, 1, tablet, By Mouth, Daily, # 30 tablet, Refills 5, Tot. Refills 5, Maintenance, 04/29/20 13:47:00 EST, Route to Pharmacy Electronically, [facility]/pharmacy #[id number], 183, cm, 02/05/20 12:53:00 EDT, Height Start Date: 04/29/20 Stop Date: 10/26/20 Status: Ordered atorvastatin 40 mg oral tablet See Instructions, TAKE 1 TABLET BY MOUTH EVERY DAY, # 28 tablet, 5 Refills, Soft Stop, 07/05/20 11:24:00 EST, [facility]/pharmacy #[id number], 183, cm, 05/12/20 9:35:00 EST, Height Start Date: 07/05/20 Status: Ordered buPROPion 150 mg/24 hours (XL) oral tablet, extended release 1 tablet = 150 mg, By Mouth, Every 24 hours, # 30 tablet, 5 Refills, Maintenance, 08/01/20 9:50:00 EDT, ER Tablet, [facility]/pharmacy #[id number], Bubble pack and delivery, 1 tablet By Mouth Every 24 hours, 183,cm, 05/12/20 9:35:00 EST, Height Start Date: 08/01/20 Status: Ordered carvedilol 12.5 mg oral tablet 12.5 mg, 1, tablet, By Mouth, 2 times a day, # 60 tablet, Refills 2, Tot. Refills 2, Soft Stop, 07/01/20 13:57:00 EST, Route to Pharmacy Electronically, [facility]/pharmacy #[id number], 183, cm, 05/12/20 9:35:00 EST, Height Start Date: 07/01/20 Status: Ordered clopidogrel 75 mg oral tablet 75 mg, 1, tablet, By Mouth, Daily, # 30 tablet, Refills 5, Tot. Refills 5, Maintenance, 05/15/20 15:55:00 EST, Route to Pharmacy Electronically, [facility]/pharmacy #[id number], 183, cm, 05/12/20 9:35:00 EST, Height Start Date: 05/15/20 Status: Ordered [facility] B-12 1,000 MCG TABLET See Instructions, # 30 tablet, TAKE 1 TABLET BY MOUTH EVERY DAY, [facility]/pharmacy #[id number] Start Date: 03/20/19 Status: Ordered docusate sodium 100 mg oral capsule 100 mg, 1, capsule, By Mouth, 3 times a day, Bubble Pack and Delivery, # 90 capsule, Refills 5, Tot. Refills 5, Maintenance, 11/22/17 13:28:22 EDT, Route to Pharmacy Electronically, [id number], [facility]/pharmacy #[id number] Start Date: 11/22/17 Stop Date: 05/21/18 Status: Ordered Eliquis 5 mg oral tablet 1 tablet = 5 mg, By Mouth, 2 times a day, # 60 tablet, 5 Refills, Maintenance, 08/01/20 11:10:00 EDT, Tablet, [facility]/pharmacy #[id number], 183, cm, 05/12/20 9:35:00 EST, Height Start Date: 08/01/20 Status: Ordered furosemide 40 mg oral tablet 40 mg, 1, tablet, By Mouth, 2 times a day, # 60 tablet, Refills 2, Tot. Refills 2, Soft Stop, 08/03/20 14:35:00 EDT, Route to Pharmacy Electronically, [facility]/pharmacy #[id number], this replaces previous script. Pt is on 2 tabs daily, 183, cm, 05/12/20 9:35:00... Start Date: 08/03/20 Stop Date: 11/01/20 Status: Ordered furosemide 40 mg oral tablet 40 mg, 1, tablet, By Mouth, 2 times a day, for 30 days, # 60 tablet, Refills 2, Tot. Refills 2, Hard Stop 08/03/20 14:35:00 EDT, 05/05/20 14:35:00 EST, Route to Pharmacy Electronically, [facility]/pharmacy #[id number], this replaces previous script. Pt is on 2 tab... Start Date: 05/05/20 Stop Date: 08/03/20 Status: Ordered hydrALAZINE 50 mg oral tablet 1 tablet = 50 mg, By Mouth, 3 times a day, dose change, # 90 tablet, 1 Refills, Maintenance, 09/10/19 10:37:00 EDT, Tablet, [facility]/pharmacy #[id number], 183, cm, 05/25/19 15:06:00 EST, Height Start Date: 09/10/19 Stop Date: 11/09/19 Status: Ordered isosorbide mononitrate 60 mg oral tablet, extended release 60 mg, 1, tablet, By Mouth, Daily in AM, # 30 tablet, Refills 5, Tot. Refills 5, Soft Stop, 05/03/20 17:20:00 EST, Route to Pharmacy Electronically, [facility]/pharmacy #[id number], 183, cm, 02/05/20 12:53:00 EDT, Height Start Date: 05/03/20 Stop Date: 10/30/20 Status: Ordered NIFEdipine 30 mg oral tablet, extended release 30 mg, 1, tablet, By Mouth, Daily, Bubble Pack and Delivery, # 30 tablet, Refills 3, Tot. Refills 3, Maintenance, 03/27/18 8:38:30 EST, Route to Pharmacy Electronically, [id number], [facility]/pharmacy #[id number] Start Date: 03/27/18 Status: Ordered nitroglycerin 0.4 mg sublingual tablet 1 tablet = 0.4 mg, Sublingual, Every 5 minutes, PRN Chest Pain, # 25 tablet, 3 Refills, Maintenance, 08/24/19 15:40:00 EDT, [facility]/pharmacy #[id number], 183, cm, 05/25/19 15:06:00 EST, Height, 88.3, kg, 08/31/17 3:30:00 EDT, Dry Weight Start Date: 08/24/19 Stop Date: 12/22/19 Status: Ordered oxyCODONE 30 mg oral tablet 2 tablet = 60 mg, By Mouth, Every 3 hours, SELLING UNDERWRITER checked, # 224 tablet, 0 Refills, Acute 05/15/21 15:53:00 EST, 07/10/20 20:59:00 EST, [id number], may partial fill upon request;, 07/11/20, 183,cm, 05/12/20 9:35:00 EST, Height Start Date: 07/10/20 Stop Date: 05/15/21 Status: Ordered oxyCODONE 30 mg oral tablet 2 tablet = 60 mg, By Mouth, Every 3 hours, SELLING UNDERWRITER checked, # 224 tablet, 0 Refills, Acute 05/15/21 14:30:00 EST, 07/24/20 20:58:00 EST, [id number], may partial fill upon request; ok for pt to pay in [place], 07/25/20, 183, cm, 05/12/20 9:35:00 EST,... Start Date: 07/24/20 Stop Date: 05/15/21 Status: Ordered pantoprazole 40 mg oral delayed release tablet See Instructions, # 28 tablet, Refills 2 Tot. Refills 2, TAKE 1 TABLET BY MOUTH EVERY DAY, [facility]/pharmacy #[id number] Start Date: 02/26/19 Status: Ordered pantoprazole 40 mg oral delayed release tablet 1 tablet = 40 mg, By Mouth, Daily, # 30 tablet, 2 Refills, Maintenance, 07/02/20 8:26:00 EST, [facility] Tablet, 183, cm, 05/12/20 9:35:00 EST, Height Start Date: 07/02/20 Status: Ordered potassium chloride 10 mEq oral tablet, extended release See Instructions, take 2 tabs in am and 1 tab in pm, # 90 tablet, 2 Refills, Maintenance, 07/02/20 8:26:00 EST, ER Tablet, [facility]/pharmacy #[id number], 183, cm, 05/12/20 9:35:00 EST, Height Start Date: 07/02/20 Status: Ordered sertraline 100 mg oral tablet 1 tablet = 100 mg, By Mouth, Daily, # 90 tablet, 1 Refills, Maintenance, 08/01/20 11:10:00 EDT, Tablet, [facility]/pharmacy #[id number], Bubble pack and delivery, 183, cm, 05/12/20 9:35:00 EST, Height Start Date: 08/01/20 Stop Date: 01/28/21 Status: Ordered spironolactone 25 mg oral tablet 25 mg, 1, tablet, By Mouth, Daily, # 30 tablet, Refills 2, Tot. Refills 2, Soft Stop, 07/02/20 8:26:00 EST, [id number], 183, cm, 05/12/20 9:35:00 EST, Height Start Date: 07/02/20 Stop Date: 09/30/20 Status: Ordered sucralfate 1 gm oral tablet 1 Gm, 1, tablet, By Mouth, 3 times a day before meals and bedtime, # 120 tablet, Refills 2, Tot. Refills 2, Maintenance, 08/01/20 9:52:00 EDT, Route to Pharmacy Electronically, [facility]/pharmacy #[id number], 183, cm, 05/12/20 9:35:00 EST, Height Start Date: 08/01/20 Status: Ordered Vitamin B-12 1000 mcg oral tablet 1,000 mcg, 1, tablet, By Mouth, Daily, # 30 tablet, Refills 2, Tot. Refills 2, Soft Stop, 07/02/20 8:26:00 EST, Route to Pharmacy Electronically, [id number], 183, cm, 05/12/20 9:35:00 EST, Height Start Date: 07/02/20 Stop Date: 09/30/20 Status: Ordered Problem List Condition Effective Dates [...] artery disease by Rolando Rubin M.D. at [facility]. 5In the past; states this has resolved Social History Social History Type Response Smoking Status Never smoker entered on: 08/24/16 Sex
--- OUTSIDE RECORDS SUMMARY | 2023-11-18 12:33 | XMS_ITS | Continuity of Care Document ---
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 Role Phone Radha ODONNELL, Hannah Primary Care Physician [phone] Encounter [facility] Date(s): 03/18/23 - 04/17/23 [facility] Adult [address] [place] [id number]- Allergies, Adverse Reactions, Alerts Substance Reaction Severity [...] 01/09/23 7:22:00 EDT, Route to Pharmacy Electronically, [id number], 183, cm, 10/08/22 16:18:00 EDT, Height, 71.3, kg, 08/08/21 0:23:00 EDT, Dry Weight Start Date: 01/09/23 Status: Ordered amLODIPine 5 mg oral tablet 1 tablet, By Mouth, Daily, # 28 tablet, 5 Refills, Maintenance, 11/25/22 16:21:00 EDT, [facility], 183, cm, 10/08/22 16:18:00 EDT, Height, 71.3, kg, 08/08/21 0:23:00 EDT, Dry Weight Start Date: 11/25/22 Status: Ordered atorvastatin 40 mg oral tablet 1 tablet, By Mouth, Daily, # 28 tablet, 2 Refills, Maintenance, 01/09/23 7:23:00 EDT, [facility], 183, cm, 10/08/22 16:18:00 EDT, Height, 71.3, kg, 08/08/21 0:23:00 EDT, Dry Weight Start Date: 01/09/23 Status: Ordered buPROPion 150 mg/24 hours (XL) oral tablet, extended release 1 tablet, By Mouth, Daily, # 28 tablet, 5 Refills, Maintenance, 09/03/22 20:57:00 EDT, [facility], 28, TAKE 1 TABLET BY MOUTH EVERY DAY, 183, cm, 03/16/22 8:31:00 EDT, Height, 71.3, kg, 220:23:00 EDT, Dry Weight Start Date: 09/03/22 Status: Ordered carvedilol 12.5 mg oral tablet 1, tablet, By Mouth, 2 times a day, # 56 tablet, Refills 5, Maintenance, 11/25/22 16:22:00 EDT, Route to Pharmacy Electronically, [facility], 183, cm, 10/08/22 16:18:00 EDT, Height, 71.3, [...] EDT, Route to Pharmacy Electronically, [facility], 183, cm, 03/16/22 8:31:00 EDT, Height, 71.3, [...] 6 Refills, Maintenance, 05/14/2216:30:00 EST, [facility], 183, cm, 03/16/22 8:31:00 EDT, Height, 71.3, kg, 08/08/21 0:23:00 EDT, Dry Weight Start Date: 05/14/22 Status: Ordered Eliquis 5 mg oral tablet 1 tablet, By Mouth, 2 times a day, # 56 tablet, 6 Refills, [facility], 183, cm, 08/12/21 14:20:00 EDT, Height, 71.3, kg, 08/08/21 0:23:00 EDT, Dry Weight Start Date: 09/26/21 Status: Ordered Eliquis 5 mg oral tablet See Instructions, TAKE 1 TABLET BY MOUTH TWICE A DAY, # 56 tablet, 6 Refills, Maintenance, 11/30/2314:39:00 EDT, [facility], 183, cm, 10/08/22 16:18:00 EDT, Height, 71.3, kg, 08/08/21 0:23:00 EDT, Dry Weight Start Date: 11/30/22 Status: Ordered furosemide 40 mg oral tablet 1, tablet, By Mouth, 2 times a day, # 56 tablet, Refills 2, Maintenance, 09/30/22 8:51:00 EDT, Route to Pharmacy Electronically, [facility], 183, cm, 03/16/22 8:31:00 EDT, Height, 71.3, kg, 08/08/21 0:23:00 EDT, Dry Weight Start Date: 09/30/22 Status: Ordered FUROSEMIDE 40 MG TABLET FUROSEMIDE [...] day, # 84 tablet, 2 Refills, Maintenance, 11/25/22 16:22:00 EDT, [facility], 183, cm, 10/08/22 16:18:00 EDT, Height, 71.3, kg, 08/08/21 0:23:00 EDT, Dry Weight Start Date: 11/25/22 Status: Ordered isosorbide mononitrate 60 mg oral tablet, extended release 1 tablet, By Mouth, Daily in AM, # 28 tablet, 2 Refills, Maintenance, 11/25/22 16:23:00 EDT, [facility], 183, cm, 10/08/22 16:18:00 EDT, Height, 71.3, kg, 08/08/21 0:23:00 EDT, Dry Weight Start Date: 11/25/22 Status: Ordered Mylanta Maximum Strength oral suspension 5 mL, By Mouth, 4 times a day, PRN for control of stomach acid, # 200 mL, 1 Refills, Maintenance, 08/12/21 13:46:00 EDT, Suspension, [facility]/pharmacy #[id number], Partial fill upon patient request if the [...] 60 mg, By Mouth, Every 3 hours, INDUSTRIAL ORGANIZATION MANAGER checked. fiull 03/28/23, # 112 tablet, 0 Refills, Maintenance, 03/28/23 7:01:00 EST, [facility]/pharmacy #[id number], 7 days as needs testing performed partial fill upon request;, 183, cm, 10/08/22 16:18:00 EDT, Hei... Start Date: 03/28/23 Stop Date: 04/04/23 Status: Ordered oxyCODONE 30 mg oral tablet 2 tablet = 60 mg, By Mouth, Every 3 hours, 5PMP checked. fill on 02/14/23, # 224 tablet, 0 Refills, Maintenance, 04/04/23 14:22:00 EST, [facility]/pharmacy #[id number], may partial fill upon request; fill 07/19/2022, 183, cm, 03/28/23 11:43:00 EST, Height, 71.3, kg,... Start Date: 04/04/23 Stop Date: 04/18/23 Status: Ordered pantoprazole 40 mg oral delayed [...] Start Date: 11/30/22 Status: Ordered Potassium Chloride (Nfm-Ilvx-Som 10) 10 mEq oral tablet, extended release See Instructions, TAKE 2 TABLETS BY MOUTH EVERY MORNING AND TAKE 1 TABLET EVERY EVENING, # 84 tablet, 2 Refills, Maintenance, 11/30/22 15:38:00 EDT, [facility], 183, cm, 10/08/22 16:18:00 EDT, Height, 71.3, kg, 08/08/21 0:23:00 EDT, Dry Weight Start Date: 11/30/22 Status: Ordered Potassium Chloride (Xif-Wmtz-Vud 10) 10 mEq oral tablet, extended release See Instructions, TAKE 2 TABLETS BY MOUTH EVERY MORNING AND TAKE 1 TABLET EVERY EVENING, # 84 tablet, 2 Refills, Maintenance, 09/06/22 10:04:00 EDT, [facility], 183, cm, 03/16/22 8:31:00 EDT, Height, 71.3, kg, 08/08/21 0:23:00 EDT, Dry Weight Start Date: 09/06/22 Status: Ordered sertraline 100 mg oral tablet 1 tablet, By Mouth, Daily, # 28 tablet, 5 Refills, Maintenance, 06/09/22 8:26:00 EST, [facility], 183, cm, 03/16/22 8:31:00 EDT, Height, 71.3, kg, 08/08/21 0:23:00 EDT, Dry Weight Start Date: 06/09/22 Status: Ordered sertraline 100 mg oral tablet See Instructions, TAKE 1 TABLET BY MOUTH EVERY DAY, # 28 tablet, 5 Refills, Maintenance, 11/30/22 15:39:00 EDT, [facility], 183, cm, 10/08/22 16:18:00 EDT, Height, 71.3, kg, 08/08/21 0:23:00 EDT, Dry Weight Start Date: 11/30/22 Status: Ordered spironolactone 25 mg oral tablet 1, tablet, By Mouth, Daily, # 28 tablet, Refills 4, Maintenance, 07/08/22 11:30:00 EST, Route to Pharmacy Electronically, [facility], 183, cm, 03/16/22 8:31:00 EDT, Height, 71.3, kg, 08/08/21 0:23:00 EDT, Dry Weight Start Date: 07/08/22 Status: Ordered spironolactone 25 mg oral tablet See Instructions, TAKE 1 TABLET BY MOUTH EVERY DAY, # 28 tablet, Refills 4, Maintenance, 11/30/22 15:38:00 EDT, Instructions Replace Required Details, Route to Pharmacy Electronically, [facility], 183, cm, 10/08/22 16:18:00 EDT, Height, 71.3, kg,... Start Date: 11/30/22 Status: Ordered sucralfate 1 gm oral tablet 1, tablet, By Mouth, 3 times a day before meals, AND BEDTIME., # 112 tablet, Refills 5, Maintenance, 02/04/23 16:32:00 EDT, Route to Pharmacy Electronically, [facility], 183, cm, 10/08/22 16:18:00 EDT, Height, 71.3, kg, 08/08/21 0:23:00 EDT, Dry... Start Date: 02/04/23 Status: Ordered Vitamin B-12 1000 mcg oral tablet 1, tablet, By Mouth, Daily, # 28 tablet, Refills 0, Maintenance, 02/04/23 17:00:00 EDT, Route to Pharmacy Electronically, [facility], 183, cm, 10/08/22 16:18:00 EDT, Height, 71.3, kg, 08/08/21 0:23:00 EDT, Dry Weight Start Date: 02/04/23 Status: Ordered Problem List Condition Confirmation Course [...] artery disease by Rolando Rubin M.D. at [facility]. 4In the past; states this has resolved Social History Social History Type Response Smoking Status Never smoker entered on: 08/24/16 Sex Patient Care team information Care Team Personnel Name: Irish Samuel RN Position: [facility] RN Member Role: Primary Care Nurse Name: Mireya Ramsey Position: [facility] RN Supv Member Role: Primary Care Nurse Name: Rhea Betancur RN Position: [facility] SN RN Member Role: Primary Care Nurse Name: Hugo Ayala RN Position: [facility] RN Member Role: Primary Care Nurse Name: Lorna Faust RN Position: [facility] RN Member Role: Primary Care Nurse Name: David Gonzalez MD Position: [facility] Renal MD Member Role: Lifetime Consulting Physician Address: Address: [address] [place] [address] [address] [facility] [address]- [place] Name: Hannah Garcia NP Position: [facility] PCO Associate Professional Member Role: PCP Address: Address: [address] [place] [address], [address] [place] [address]- [place] Name: Eduin Arias MD Position: [facility] Renal MD Member Role: Lifetime Consulting Physician Address: Address: [address] [place] [address], [address] [place] [address]- [place] Name: Ana Herrera RN Position: [facility] RN Member Role: Primary Care Nurse Name: Cadence Quach RN Position: [facility] OB RN Member Role: Primary Care Nurse Name: Maggy Tsang RN Position: S RN Member Role: Primary Care Nurse Name: Keyla Keys RN Position: [facility] SN RN Member Role: Primary Care Nurse Name: Марина Guevara RN Position: [facility] RN Member Role: Primary Care Nurse Name: Lyn Helms RN Position: [facility] RN Member Role: Primary Care Nurse Name: Tatum Biswas RN Position: [facility] RN Member Role: Primary Care Nurse Name: Hugo Bateman RN Position: [facility] RN Member Role: Primary Care Nurse Name: Petros Levy RN Position: [facility] RN Member Role: Primary Care Nurse Name: Izabella Braun RN Position: [facility] RN Member Role: Primary Care Nurse Name: Lyndsay King RN Position: [facility] RN Member Role: Primary Care Nurse Name: Felicia Kerr RN Position: [facility] RN Member Role: Primary Care Nurse Name: Hafsa Goyal RN Position: [facility] RN Member Role: Primary Care Nurse Name: Rosalio Jack RN Position: [facility] RN Member Role: Primary Care Nurse Name: Carmela Houser RN Position: [facility] SN RN Member Role: Primary Care Nurse Name: Michael Dickson RN Position: [facility] RN Member Role: Primary Care Nurse Name: Jessica Lema RN Position: [facility] RN Member Role: Primary Care Nurse Name: Phu Flynn MD Position: [facility] Renal MD Member Role: Lifetime Consulting Physician Address: Address: [address] [place] [address] [facility] [address] Name: Yesica Serna RN Position: [facility] OB RN Member Role: Primary Care Nurse Name: Jesusita Lou RN Position: [facility] OB RN Member Role: Primary Care Nurse Name: Husam Elizalde RN Position: [facility] RN Member Role: Primary Care Nurse Care Team Related Persons Name: DUTCH MAR Address: [place], [place] Name: ALL AYERS Address: home [address] [place], [place] Name: ALL MANZANARES Address: home [address] [place], [place] Name: CHRISTEN GRIMALDO Address: home [address] [place], [place]
--- OUTSIDE RECORDS SUMMARY | 2023-11-18 12:33 | XMS_ITS | Continuity of Care Document ---
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 Start Date: 12/24/19 Status: Ordered amLODIPine 5 mg oral tablet See Instructions, # 28 tablet, Refills 2 Tot. Refills 2, TAKE 1 TABLET BY MOUTH EVERY DAY, [facility]/pharmacy #[id number] Start Date: 03/26/19 Status: Ordered amLODIPine 5 mg oral tablet 5 mg, 1, tablet, By Mouth, Daily, # 30 tablet, Refills 5, Tot. Refills 5, Maintenance, 11/26/19 14:40:00 EDT, Route to Pharmacy Electronically, [facility]/pharmacy #[id number], 183, cm, 11/05/19 9:35:00 EDT, Height, Dry Weight Start Date: 11/26/19 Stop Date: 05/24/20 Status: Ordered atorvastatin 40 mg oral tablet See Instructions, TAKE 1 TABLET BY MOUTH EVERY DAY, # 28 tablet, 5 Refills, Soft Stop, 12/27/19 14:47:00 EDT, [facility]/pharmacy #[id number], 183, cm, 11/05/19 9:35:00 EDT, Height, Dry Weight Start Date: 12/27/19 Status: Ordered buPROPion 150 mg/24 hours (XL) oral tablet, extended release 1 tablet = 150 mg, By Mouth, Every 24 hours, # 30 tablet, 5 Refills, Maintenance, 10/26/19 13:15:00EDT, ER Tablet, [facility]/pharmacy #[id number], 1 tablet By Mouth Every 24 hours, 183, cm, 05/25/19 15:06:00 EST, Height, Dry Weight Start Date: 10/26/19 Status: Ordered buPROPion 150 mg/24 hours (XL) oral tablet, extended release 1 tablet = 150 mg, By Mouth, Every 24 hours, # 30 tablet, 5 Refills, Maintenance, 05/20/19 10:41:00EST, ER Tablet, [facility]/pharmacy #[id number], Bubble pack and delivery, 1 tablet By Mouth Every 24 hours, 183, cm, 01/23/19 14:41:00 EDT, Height, 88.3, kg, 08/31... Start Date: 05/20/19 Status: Ordered carvedilol 12.5 mg oral tablet 12.5 mg, 1, tablet, By Mouth, 2 times a day, # 60 tablet, Refills 5, Tot. Refills 5, Soft Stop, 10/26/19 11:37:00 EDT, Route to Pharmacy Electronically, [facility]/pharmacy #[id number], 183, cm, 05/25/19 15:06:00EST, Height Start Date: 10/26/19 Status: Ordered clopidogrel 75 mg oral tablet 75 mg, 1, tablet, By Mouth, Daily, # 30 tablet, Refills 5, Tot. Refills 5, Maintenance, 12/24/19 13:07:00 EDT, Route to Pharmacy Electronically, [facility]/pharmacy #[id number], 183, cm, 11/05/19 9:35:00 EDT, Height, Dry Weight Start Date: 12/24/19 Status: Ordered [facility] B-12 1,000 MCG TABLET See Instructions, # 30 tablet, TAKE 1 TABLET BY MOUTH EVERY DAY, [facility]/pharmacy #[id number] Start Date: 03/20/19 Status: Ordered docusate sodium 100 mg oral capsule 100 mg, 1, capsule, By Mouth, 3 times a day, Bubble Pack and Delivery, # 90 capsule, Refills 5, Tot. Refills 5, Maintenance, 11/22/17 13:28:22 EDT, Route to Pharmacy Electronically, [id number], [facility]/pharmacy #[id number] Start Date: 11/22/17 Stop Date: 05/21/18 Status: Ordered Eliquis 5 mg oral tablet 1 tablet = 5 mg, By Mouth, 2 times a day, # 60 tablet, 5 Refills, Maintenance, 05/21/19 10:06:00 EST, Tablet, [facility]/pharmacy #[id number], 183, cm, 01/23/19 14:41:00 EDT, Height, 88.3, kg, 08/31/17 3:30:00 EDT, Dry Weight Start Date: 05/21/19 Status: Ordered Eliquis 5 mg oral tablet 1 tablet = 5 mg, By Mouth, 2 times a day, # 60 tablet, 5 Refills, Soft Stop, 01/17/20 9:48:00 EDT, [facility]/pharmacy #[id number], 183, cm, 11/05/19 9:35:00 EDT, Height Start Date: 01/17/20 Stop Date: 07/15/20 Status: Ordered furosemide 40 mg oral tablet 40 mg, 1, tablet, By Mouth, Daily, # 30 tablet, Refills 5, Tot. Refills 5, Maintenance, 10/26/19 13:16:00 EDT, Route to Pharmacy Electronically, [facility]/pharmacy #[id number], 183, cm, 05/25/19 15:06:00 EST, Height, Dry Weight Start Date: 10/26/19 Status: Ordered furosemide 40 mg oral tablet 40 mg, 1, tablet, By Mouth, 2 times a day, # 60 tablet, Refills 1, Tot. Refills 1, Soft Stop, 10/26/19 13:50:00 EDT, [id number] previous [facility]. Pt is on 2 tabs daily, 183, cm, 05/25/19 15:06:00... Start Date: 10/26/19 Stop Date: 12/25/19 Status: Ordered hydrALAZINE 25 mg oral tablet 25 mg, 1, tablet, By Mouth, 2 times a day, # 60 tablet, Refills 5, Tot. Refills 5, Maintenance, 06/18/19 14:34:00 EST, Route to Pharmacy Electronically, [facility]/pharmacy #[id number], 183, cm, 05/25/19 15:06:00EST, Height, 88.3, kg, 08/31/17 3:30:00 EDT, Dry We... Start Date: 06/18/19 Stop Date: 12/15/19 Status: Ordered hydrALAZINE 50 mg oral tablet 1 tablet = 50 mg, By Mouth, 3 times a day, dose change, # 90 tablet, 1 Refills, Maintenance, 09/10/19 10:37:00 EDT, Tablet, [facility]/pharmacy #[id number], 183, cm, 05/25/19 15:06:00 EST, Height Start Date: 09/10/19 Stop Date: 11/09/19 Status: Ordered isosorbide mononitrate 60 mg oral tablet, extended release 60 mg, 1, tablet, By Mouth, Daily in AM, # 30 tablet, Refills 5, Tot. Refills 5, Soft Stop, 09/11/19 14:15:00 EDT, Route to Pharmacy Electronically, [facility]/pharmacy #[id number], 183, cm, 05/25/19 15:06:00 EST, Height, Dry Weight Start Date: 09/11/19 Stop Date: 03/09/20 Status: Ordered NIFEdipine 30 mg oral tablet, extended release 30 mg, 1, tablet, By Mouth, Daily, Bubble Pack and Delivery, # 30 tablet, Refills 3, Tot. Refills 3, Maintenance, 03/27/18 8:38:30 EST, Route to Pharmacy Electronically, [id number], [facility]/pharmacy #[id number] Start Date: 03/27/18 Status: Ordered nitroglycerin 0.4 mg sublingual tablet 1 tablet = 0.4 mg, Sublingual, Every 5 minutes, PRN Chest Pain, # 25 tablet, 3 Refills, Maintenance, 08/24/19 15:40:00 EDT, [facility]/pharmacy #[id number], 183, cm, 05/25/19 15:06:00 EST, Height, 88.3, kg, 08/31/17 3:30:00 EDT, Dry Weight Start Date: 08/24/19 Stop Date: 12/22/19 Status: Ordered oxyCODONE 30 mg oral tablet 2 tablet = 60 mg, By Mouth, Every 3 hours, SCIENTIFIC ASSOCIATE checked, # 224 tablet, 0 Refills, Acute 05/15/20 14:01:00 EST, 01/23/20 21:11:00 EDT, [facility]/pharmacy #[id number], may partial fill upon request;, 01/25/20, 183,cm, 11/05/19 9:35:00 EDT, Height, Dry Weight Start Date: 01/23/20 Stop Date: 05/15/20 Status: Ordered pantoprazole 40 mg oral delayed release tablet 1 tablet = 40 mg, By Mouth, Daily, # 30 tablet, 2 Refills, Maintenance, 01/22/20 12:59:00 EDT, EC Tablet, 183, cm, 11/05/19 9:35:00 EDT, Height, Dry Weight Start Date: 01/22/20 Status: Ordered pantoprazole 40 mg oral delayed release tablet See Instructions, # 28 tablet, Refills 2 Tot. Refills 2, TAKE 1 TABLET BY MOUTH EVERY DAY, [facility]/pharmacy #[id number] Start Date: 02/26/19 Status: Ordered Plavix 75 mg oral tablet 75 mg, 1, tablet, By Mouth, Daily, # 30 tablet, Refills 5, Tot. Refills 5, Maintenance, 01/29/19 17:07:02 EDT, Route to Pharmacy Electronically, [id number], [facility]/pharmacy #[id number], Bubble pack and Delivery Start Date: 01/29/19 Stop Date: 07/28/19 Status: Ordered potassium chloride 10 mEq oral tablet, extended release 1 tablet = 10 mEq, By Mouth, 2 times a day, # 60 tablet, 2 Refills, Maintenance, 01/22/20 12:59:00 EDT, ER Tablet, [facility]/pharmacy #[id number], 183, cm, 11/05/19 9:35:00 EDT, Height Start Date: 01/22/20 Stop Date: 04/21/20 Status: Ordered sertraline 100 mg oral tablet 1 tablet = 100 mg, By Mouth, Daily, # 30 tablet, 6 Refills, Maintenance, 07/16/19 14:54:00 EST, Tablet, [facility]/pharmacy #[id number], 183, cm, 05/25/19 15:06:00 EST, Height, 88.3, kg, 08/31/17 3:30:00 EDT, DryWeight Start Date: 07/16/19 Status: Ordered sertraline 100 mg oral tablet 1 tablet = 100 mg, By Mouth, Daily, # 90 tablet, 1 Refills, Maintenance, 01/29/19 8:25:24 EDT, Tablet, Bubble pack and delivery Start Date: 01/29/19 Stop Date: 07/28/19 Status: Ordered sertraline 100 mg oral tablet 1 tablet = 100 mg, By Mouth, Daily, # 30 tablet, 6 Refills, Maintenance, 12/28/19 10:04:00 EDT, Tablet, [facility]/pharmacy #[id number], 183, cm, 11/05/19 9:35:00 EDT, Height, Dry Weight Start Date: 12/28/19 Status: Ordered spironolactone 25 mg oral tablet 25 mg, 1, tablet, By Mouth, Daily, # 30 tablet, Refills 1, Tot. Refills 1, Maintenance, 01/22/20 12:58:00 EDT, Route to Pharmacy Electronically, [facility]/pharmacy #[id number], 183, cm, 11/05/19 9:35:00 EDT, Height, Dry Weight Start Date: 01/22/20 Stop Date: 03/22/20 Status: Ordered spironolactone 25 mg oral tablet See Instructions, # 30 tablet, Refills 1 Tot. Refills 1, TAKE 1 TABLET BY MOUTH EVERY DAY, [facility]/pharmacy #[id number] Start Date: 03/26/19 Status: Ordered spironolactone 25 mg oral tablet 25 mg, 1, tablet, By Mouth, Daily, # 30 tablet, Refills 1, Tot. Refills 1, Maintenance, 05/21/19 10:07:00 EST, Route to Pharmacy Electronically, [facility]/pharmacy #[id number], 183, cm, 01/23/19 14:41:00 EDT, Height, 88.3, kg, 08/31/17 3:30:00 EDT, Dry Weight Start Date: 05/21/19 Status: Ordered sucralfate 1 gm oral tablet 1 Gm, 1, tablet, By Mouth, 3 times a day before meals and bedtime, # 120 tablet, Refills 2, Tot. Refills 2, Soft Stop, 06/18/19 9:36:00 EST, Route to Pharmacy Electronically, [facility]/pharmacy #[id number], 183,cm, 05/25/19 15:06:00 EST, Height, 88.3, kg, ... Start Date: 06/18/19 Stop Date: 09/16/19 Status: Ordered sucralfate 1 gm oral tablet 1 Gm, 1, tablet, By Mouth, 3 times a day before meals and bedtime, # 120 tablet, Refills 2, Tot. Refills 2, Maintenance, 11/26/19 8:36:00 EDT, Route to Pharmacy Electronically, [facility]/pharmacy #[id number], 183, cm, 11/05/19 9:35:00 EDT, Height, Dry Weight Start Date: 11/26/19 Status: Ordered Vitamin B-12 1000 mcg oral tablet See Instructions, # 28 tablet, Refills 1 Tot. Refills 1, TAKE 1 TABLET BY MOUTH EVERY DAY, [facility]/pharmacy #[id number] Start Date: 03/26/19 Status: Ordered Vitamin B12 1000 mcg oral tablet 1 tablet = 1,000 mcg, By Mouth, Daily, # 30 tablet, 5 Refills, Maintenance, 12/24/19 13:07:00 EDT, Tablet, [facility]/pharmacy #[id number], 183, cm, 11/05/19 9:35:00 EDT, Height, [...] artery disease by Rolando Rubin M.D. at [facility]. 5In the past; states this has resolved Social History Social History Type Response Smoking Status Never smoker entered on: 08/24/16 Sex
--- OUTSIDE RECORDS SUMMARY | 2023-11-18 12:33 | XMS_ITS | Continuity of Care Document ---
Author Organization [facility] Adult Address [address] [place] [id number]- Care Team Providers Care Economics Analyst Name Role Phone Radha ODONNELL, Hannah Primary Care Physician Encounter [facility] Date(s): 04/01/23 - 05/01/23 [facility] [address] [place] [id number]- Allergies, Adverse Reactions, Alerts Substance Reaction Severity [...] 01/09/23 7:22:00 EDT, Route to Pharmacy Electronically, [id number], 183, cm, 10/08/22 16:18:00 EDT, Height, 71.3, kg, 08/08/21 0:23:00 EDT, Dry Weight Start Date: 01/09/23 Status: Ordered amLODIPine 5 mg oral tablet 1 tablet, By Mouth, Daily, # 28 tablet, 5 Refills, Maintenance, 11/25/22 16:21:00 EDT, [facility], 183, cm, 10/08/22 16:18:00 EDT, Height, 71.3, kg, 08/08/21 0:23:00 EDT, Dry Weight Start Date: 11/25/22 Status: Ordered atorvastatin 40 mg oral tablet 1 tablet, By Mouth, Daily, # 28 tablet, 2 Refills, Maintenance, 01/09/23 7:23:00 EDT, [facility], 183, cm, 10/08/22 16:18:00 EDT, Height, 71.3, [...] EDT, Route to Pharmacy Electronically, [facility], 183, cm, 10/08/22 16:18:00 EDT, Height, 71.3, [...] EDT, Route to Pharmacy Electronically, [facility], 183, cm, 03/16/22 8:31:00 EDT, Height, 71.3, [...] 6 Refills, Maintenance, 05/14/2216:30:00 EST, [facility], 183, cm, 03/16/22 8:31:00 EDT, Height, 71.3, kg, 08/08/21 0:23:00 EDT, Dry Weight Start Date: 05/14/22 Status: Ordered Eliquis 5 mg oral tablet 1 tablet, By Mouth, 2 times a day, # 56 tablet, 6 Refills, [facility], 183, cm, 08/12/21 14:20:00 EDT, Height, 71.3, kg, 08/08/21 0:23:00 EDT, Dry Weight Start Date: 09/26/21 Status: Ordered Eliquis 5 mg oral tablet See Instructions, TAKE 1 TABLET BY MOUTH TWICE A DAY, # 56 tablet, 6 Refills, Maintenance, 11/30/2314:39:00 EDT, [facility], 183, cm, 10/08/22 16:18:00 EDT, Height, 71.3, kg, 08/08/21 0:23:00 EDT, Dry Weight Start Date: 11/30/22 Status: Ordered furosemide 40 mg oral tablet 1, tablet, By Mouth, 2 times a day, # 56 tablet, Refills 2, Tot. Refills 2, Maintenance, 04/21/23 18:37:00 EST, Route to Pharmacy Electronically, [facility]/pharmacy #[id number], 183, cm, 03/28/23 11:43:00 EST, Height, [...] tablet, 2 Refills, Maintenance, 04/27/23 13:02:00 EST, [facility] 5[facility], 183, cm, 03/28/23 11:43:00 EST, Height, 71.3, kg, 08/08/21 0:23:00 EDT, Dry Weight Start Date: 04/27/23 Status: Ordered isosorbide mononitrate 60 mg oral tablet, extended release 1 tablet, By Mouth, Daily in AM, # 28 tablet, 5 Refills, Maintenance, 04/21/23 18:37:00 EST, [facility]/pharmacy #[id number], 183, cm, 03/28/23 11:43:00 EST, Height, 71.3, kg, 08/08/21 0:23:00 EDT, Dry Weight Start Date: 04/21/23 Stop Date: 10/06/23 Status: Ordered Mylanta Maximum Strength oral suspension 5 mL, By Mouth, 4 times a day, PRN for control of stomach acid, # 200 mL, 1 Refills, Maintenance, 08/12/21 13:46:00 EDT, Suspension, [facility]/pharmacy #[id number], Partial fill upon patient request if the prescription is for a schedule II opioid drug., 5 mL By M... Start Date: 08/12/21 Status: Ordered nitroglycerin 0.4 mg sublingual tablet 1 tablet = 0.4 mg, Sublingual, Every 5 minutes, PRN Chest Pain, # 25 tablet, 3 Refills, Maintenance, 08/24/19 15:40:00 EDT, [facility]/pharmacy #[id number], 183, cm, 05/25/19 15:06:00 EST, Height, 88.3, kg, 08/31/17 3:30:00 EDT, Dry Weight Start Date: 08/24/19 Stop Date: 12/22/19 Status: Ordered oxyCODONE 30 mg oral tablet 2 tablet = 60 mg, By Mouth, Every 3 hours, OFFICE ASSISTANCE checked. [email or web address] 03/28/23, # 112 tablet, 0 Refills, Maintenance, 03/28/23 7:01:00 EST, [facility]/pharmacy #[id number], 7 days as needs testing performed partial fill upon request;, 183, cm, 10/08/22 16:18:00 EDT, Hei... Start Date: 03/28/23 Stop Date: 04/04/23 Status: Ordered oxyCODONE 30 mg oral tablet 2 tablet = 60 mg, By Mouth, Every 3 hours, OFFICE ASSISTANCE checked., # 112 tablet, 0 Refills, Maintenance, 04/26/23 8:55:00 EST, [facility]/pharmacy #[id number], may partial fill upon request;, 183, [...] Start Date: 11/30/22 Status: Ordered Potassium Chloride (Jbu-Lyta-Wlv 10) 10 mEq oral tablet, extended release See Instructions, TAKE 2 TABLETS BY MOUTH EVERY MORNING AND TAKE 1 TABLET EVERY EVENING, # 84 tablet, 2 Refills, Maintenance, 04/27/23 13:02:00 EST, [facility], 183, cm, 03/28/23 11:43:00 EST, Height, 71.3, kg, 08/08/21 0:23:00 EDT, Dry Weight Start Date: 04/27/23 Status: Ordered sertraline 100 mg oral tablet 1 tablet, By Mouth, Daily, # 28 tablet, 5 Refills, Maintenance, 06/09/22 8:26:00 EST, [facility], 183, cm, 03/16/22 8:31:00 EDT, Height, 71.3, kg, 08/08/21 0:23:00 EDT, Dry Weight Start Date: 06/09/22 Status: Ordered sertraline 100 mg oral tablet See Instructions, TAKE 1 TABLET BY MOUTH EVERY DAY, # 28 tablet, 5 Refills, Maintenance, 11/30/22 15:39:00 EDT, [id number], 183, cm, 10/08/22 16:18:00 EDT, Height, 71.3, kg, 08/08/21 0:23:00 EDT, Dry Weight Start Date: 11/30/22 Status: Ordered spironolactone 25 mg oral tablet 1, tablet, By Mouth, Daily, # 28 tablet, Refills 4, Maintenance, 07/08/22 11:30:00 EST, Route to Pharmacy Electronically, [facility], 183, cm, 03/16/22 8:31:00 EDT, Height, 71.3, kg, 08/08/21 0:23:00 EDT, Dry Weight Start Date: 07/08/22 Status: Ordered spironolactone 25 mg oral tablet See Instructions, TAKE 1 TABLET BY MOUTH EVERY DAY, # 28 tablet, Refills 4, Maintenance, 11/30/22 15:38:00 EDT, Instructions Replace Required Details, Route to Pharmacy Electronically, [facility], 183, cm, 10/08/22 16:18:00 EDT, Height, 71.3, kg,... Start Date: 11/30/22 Status: Ordered sucralfate 1 gm oral tablet 1, tablet, By Mouth, 3 times a day before meals, AND BEDTIME., # 112 tablet, Refills 5, Maintenance, 02/04/23 16:32:00 EDT, Route to Pharmacy Electronically, [id number], 183, cm, 10/08/22 16:18:00 EDT, Height, 71.3, kg, 08/08/21 0:23:00 EDT, Dry... Start Date: 02/04/23 Status: Ordered Vitamin B-12 1000 mcg oral tablet 1, tablet, By Mouth, Daily, # 28 tablet, Refills 11, Tot. Refills 11, Maintenance, 04/21/23 18:37:00 EST, Route to Pharmacy Electronically, [facility]/pharmacy #[id number], 183, cm, 03/28/23 11:43:00 EST, Height,71.3, [...] artery disease by Rolando Rubin M.D. at [facility]. 4In the past; states this has resolved Social History Social History Type Response Smoking Status Never smoker entered on: 08/24/16 Sex Patient Care team information Care Team Personnel Name: Irish Samuel RN Position: [facility] RN Member Role: Primary Care Nurse Name: Mireya Ramsey Position: [facility] RN Supv Member Role: Primary Care Nurse Name: Rhea Betancur RN Position: [facility] SN RN Member Role: Primary Care Nurse Name: Hugo Ayala RN Position: [facility] RN Member Role: Primary Care Nurse Name: Lorna Faust RN Position: [facility] RN Member Role: Primary Care Nurse Name: David Gonzalez MD Position: [facility] Renal MD Member Role: Lifetime Consulting Physician Address: Address: [address] [place] [address] [address] [facility] [address]- [place] Name: Hannah Garcia NP Position: [facility] PCO Associate Professional Member Role: PCP Address: Address: [address] [place] [address], [address] [place] [address]- [place] Name: Eduin Arias MD Position: [facility] Renal MD Member Role: Lifetime Consulting Physician Address: Address: [address] [place] [address], [address] [place] [address]- [place] Name: Ana Herrera RN Position: [facility] RN Member Role: Primary Care Nurse Name: Cadence Quach RN Position: [facility] OB RN Member Role: Primary Care Nurse Name: Maggy Tsang RN Position: [facility] RN Member Role: Primary Care Nurse Name: Keyla Keys RN Position: [facility] SN RN Member Role: Primary Care Nurse Name: Марина Guevara RN Position: [facility] SN RN Member Role: Primary Care Nurse Name: Lyn Helms RN Position: [facility] RN Member Role: Primary Care Nurse Name: Tatum Biswas RN Position: [facility] RN Member Role: Primary Care Nurse Name: Hugo Bateman RN Position: [facility] RN Member Role: Primary Care Nurse Name: Petros Levy RN Position: [facility] RN Member Role: Primary Care Nurse Name: Izabella Braun RN Position: [facility] RN Member Role: Primary Care Nurse Name: Lyndsay King RN Position: [facility] RN Member Role: Primary Care Nurse Name: Felicia Kerr NP Position: [facility] PCO Associate Professional Member Role: Primary Care Nurse Name: Hafsa Goyal RN Position: [facility] RN Member Role: Primary Care Nurse Name: Rosalio Jack RN Position: [facility] RN Member Role: Primary Care Nurse Name: Carmela Houser RN Position: [facility] SN RN Member Role: Primary Care Nurse Name: Micheal Dickson RN Position: [facility] RN Member Role: Primary Care Nurse Name: Jessica Lema RN Position: [facility] RN Member Role: Primary Care Nurse Name: Phu Flynn MD Position: [facility] Renal MD Member Role: Lifetime Consulting Physician Address: Address: [address] [place] [address] [facility] [address] Name: Yesica Serna RN Position: [facility] OB RN Member Role: Primary Care Nurse Name: Jesusita Lou RN Position: [facility] OB RN Member Role: Primary Care Nurse Name: Husam Elizalde RN Position: [facility] RN Member Role: Primary Care Nurse Name: Marshall Byrd RN Position: [facility] RN Member Role: Primary Care Nurse Care Team Related Persons Name: DUTCH MAR Address: home [place], [place] Name: ALL AYERS Address: home [address], [place] Name: ALL MANZANARES Address: home [address], [place] Name: CHRISTEN GRIMALDO Address: home [address], [place]
--- OUTSIDE RECORDS SUMMARY | 2023-11-18 12:33 | XMS_ITS | Continuity of Care Document ---
Author Organization [facility] Adult Address [address] [place] [address]- Care Team Providers Care Esthetician/Skin Therapist Name Role Phone Radha ODONNELL, Hannah Primary Care Physician Encounter [facility] Date(s): 05/12/20 - 06/11/20 [facility] Adult [address] [place] [id number]- Attending Physician: Caroline Campbell Admitting Physician: AdmtrCaroline Referring Physician: Admtr ArLorenza Allergies, Adverse Reactions, Alerts Substance Reaction [...] Replace Required Details, Route to Pharmacy Electronically, [facility]/pharmacy #[id number], 183, cm, 05/12/20 9:35:00... Start Date: 05/15/20 Status: Ordered amLODIPine 5 mg oral tablet 5 mg, 1, tablet, By Mouth, Daily, # 30 tablet, Refills 5, Tot. Refills 5, Maintenance, 04/29/20 13:47:00 EST, Route to Pharmacy Electronically, [facility]/pharmacy #[id number], 183, cm, 02/05/20 12:53:00 EDT, Height Start Date: 04/29/20 Stop Date: 10/26/20 Status: Ordered atorvastatin 40 mg oral tablet See Instructions, TAKE 1 TABLET BY MOUTH EVERY DAY, # 28 tablet, 5 Refills, Soft Stop, 12/27/19 14:47:00 EDT, [facility]/pharmacy #[id number], 183, cm, 11/05/19 9:35:00 EDT, Height, Dry Weight Start Date: 12/27/19 Status: Ordered buPROPion 150 mg/24 hours (XL) oral tablet, extended release 1 tablet = 150 mg, By Mouth, Every 24 hours, # 30 tablet, 5 Refills, Maintenance, 02/18/20 10:40:00EDT, ER Tablet, [facility]/pharmacy #[id number], Bubble pack and delivery, 1 tablet By Mouth Every 24 hours, 183, cm, 02/05/20 12:53:00 EDT, Height, Dry Weight Start Date: 02/18/20 Status: Ordered carvedilol 12.5 mg oral tablet 12.5 mg, 1, tablet, By Mouth, 2 times a day, # 60 tablet, Refills 2, Tot. Refills 2, Soft Stop, 04/12/20 20:34:00 EST, Route to Pharmacy Electronically, [facility]/pharmacy #[id number], 183, cm, 02/05/20 12:53:00EDT, Height Start Date: 04/12/20 Status: Ordered clopidogrel 75 mg oral tablet 75 mg, 1, tablet, By Mouth, Daily, # 30 tablet, Refills 5, Tot. Refills 5, Maintenance, 05/15/20 15:55:00 EST, Route to Pharmacy Electronically, [facility]/pharmacy #[id number], 183, cm, 05/12/20 9:35:00 EST, Height Start Date: 05/15/20 Status: Ordered [facility] B-12 1,000 MCG TABLET See Instructions, # 30 tablet, TAKE 1 TABLET BY MOUTH EVERY DAY, [facility]/pharmacy #[id number] Start Date: 03/20/19 Status: Ordered docusate sodium 100 mg oral capsule 100 mg, 1, capsule, By Mouth, 3 times a day, Bubble Pack and Delivery, # 90 capsule, Refills 5, Tot. Refills 5, Maintenance, 11/22/17 13:28:22 EDT, Route to Pharmacy Electronically, [id number], [facility]/pharmacy #[id number] Start Date: 11/22/17 Stop Date: 05/21/18 Status: Ordered Eliquis 5 mg oral tablet 1 tablet = 5 mg, By Mouth, 2 times a day, # 60 tablet, 5 Refills, Maintenance, 02/18/20 14:47:00 EDT, Tablet, [facility]/pharmacy #[id number], 183, cm, 02/05/20 12:53:00 EDT, Height, Dry Weight Start Date: 02/18/20 Status: Ordered furosemide 40 mg oral tablet 40 mg, 1, tablet, By Mouth, 2 times a day, # 60 tablet, Refills 2, Tot. Refills 2, Soft Stop, 05/05/20 14:35:00 EST, [id number]. Pt is on 2 tabs daily, 183, cm, 02/05/20 12:53:00... Start Date: 05/05/20 Stop Date: 08/03/20 Status: Ordered hydrALAZINE 50 mg oral tablet 1 tablet = 50 mg, By Mouth, 3 times a day, dose change, # 90 tablet, 1 Refills, Maintenance, 09/10/19 10:37:00 EDT, Tablet, [facility]/pharmacy #[id number], 183, cm, 05/25/19 15:06:00 EST, Height Start Date: 09/10/19 Stop Date: 11/09/19 Status: Ordered isosorbide mononitrate 60 mg oral tablet, extended release 60 mg, 1, tablet, By Mouth, Daily in AM, # 30 tablet, Refills 5, Tot. Refills 5, Soft Stop, 05/03/20 17:20:00 EST, Route to Pharmacy Electronically, [facility]/pharmacy #[id number], 183, cm, 02/05/20 12:53:00 EDT, Height Start Date: 05/03/20 Stop Date: 10/30/20 Status: Ordered NIFEdipine 30 mg oral tablet, extended release 30 mg, 1, tablet, By Mouth, Daily, Bubble Pack and Delivery, # 30 tablet, Refills 3, Tot. Refills 3, Maintenance, 03/27/18 8:38:30 EST, Route to Pharmacy Electronically, [id number], [facility]/pharmacy #[id number] Start Date: 03/27/18 Status: Ordered nitroglycerin 0.4 mg sublingual tablet 1 tablet = 0.4 mg, Sublingual, Every 5 minutes, PRN Chest Pain, # 25 tablet, 3 Refills, Maintenance, 08/24/19 15:40:00 EDT, [facility]/pharmacy #[id number], 183, cm, 05/25/19 15:06:00 EST, Height, 88.3, kg, 08/31/17 3:30:00 EDT, Dry Weight Start Date: 08/24/19 Stop Date: 12/22/19 Status: Ordered oxyCODONE 30 mg oral tablet 2 tablet = 60 mg, By Mouth, Every 3 hours, [employer] checked, # 224 tablet, 0 Refills, Acute 05/15/21 14:03:00 EST, 05/29/20 17:11:00 EST, [facility]/pharmacy #[id number], may partial fill upon request;, 05/30/20, 183,cm, 05/12/20 9:35:00 EST, Height Start Date: 05/29/20 Stop Date: 05/15/21 Status: Ordered pantoprazole 40 mg oral delayed release tablet See Instructions, # 28 tablet, Refills 2 Tot. Refills 2, TAKE 1 TABLET BY MOUTH EVERY DAY, [facility]/pharmacy #[id number] Start Date: 02/26/19 Status: Ordered pantoprazole 40 mg oral delayed release tablet 1 tablet = 40 mg, By Mouth, Daily, # 30 tablet, 2 Refills, Maintenance, 04/15/20 9:13:00 EST, EC Tablet, 183, cm, 02/05/20 12:53:00 EDT, Height Start Date: 04/15/20 Status: Ordered potassium chloride 10 mEq oral tablet, extended release See Instructions, take 2 tabs in am and 1 tab in pm, # 90 tablet, 2 Refills, Maintenance, 04/15/20 9:13:00 EST, ER Tablet, [facility]/pharmacy #[id number], 183, cm, 02/05/20 12:53:00 EDT, Height Start Date: 04/15/20 Status: Ordered sertraline 100 mg oral tablet 1 tablet = 100 mg, By Mouth, Daily, # 90 tablet, 1 Refills, Maintenance, 02/18/20 14:47:00 EDT, Tablet[id number], Bubble pack and delivery, 183, cm, 02/05/20 12:53:00 EDT, Height Start Date: 02/18/20 Stop Date: 08/16/20 Status: Ordered spironolactone 25 mg oral tablet 25 mg, 1, tablet, By Mouth, Daily, # 30 tablet, Refills 2, Tot. Refills 2, Soft Stop, 04/15/20 9:13:00 EST, [id number], 183, cm, 02/05/20 12:53:00 EDT, Height Start Date: 04/15/20 Stop Date: 07/14/20 Status: Ordered sucralfate 1 gm oral tablet 1 Gm, 1, tablet, By Mouth, 3 times a day before meals and bedtime, # 120 tablet, Refills 2, Tot. Refills 2, Maintenance, 04/29/20 13:47:00 EST, [id number], 183, cm, 02/05/20 12:53:00 EDT, Height Start Date: 04/29/20 Status: Ordered Vitamin B-12 1000 mcg oral tablet 1,000 mcg, 1, tablet, By Mouth, Daily, # 30 tablet, Refills 2, Tot. Refills 2, Soft Stop, 04/15/20 9:13:00 EST, [id number] 183, cm, 02/05/20 12:53:00 EDT, Height Start Date: 04/15/20 Stop Date: 07/14/20 Status: Ordered Problem List Condition Effective Dates [...] artery disease by Rolando Rubin M.D. at [facility]. 5In the past; states this has resolved Social History Social History Type Response Smoking Status Never smoker entered on: 08/24/16 Sex
--- OUTSIDE RECORDS SUMMARY | 2023-11-18 12:33 | XMS_ITS | Continuity of Care Document ---
Author Organization [facility] Adult Address [address] [place] [address]- Care Team Providers Care Supervisor [employer]ation Name Role Phone Radha ODONNELL, Hannah Primary Care Physician Encounter [facility] [place] [place] Date(s): 11/30/22 - 12/30/[address] [facility] Adult [address] [place] [id number]- Allergies, Adverse Reactions, Alerts Substance Reaction Severity [...] 09/30/22 8:51:00 EDT, Route to Pharmacy Electronically, [id number], 183, cm, 03/16/22 8:31:00 EDT, Height, 71.3, kg, 08/08/21 0:23:00 EDT, Dry Weight Start Date: 09/30/22 Status: Ordered amLODIPine 5 mg oral tablet 1 tablet, By Mouth, Daily, # 28 tablet, 5 Refills, Maintenance, 11/25/22 16:21:00 EDT, [facility], 183, cm, 10/08/22 16:18:00 EDT, Height, 71.3, kg, 08/08/21 0:23:00 EDT, Dry Weight Start Date: 11/25/22 Status: Ordered atorvastatin 40 mg oral tablet 1 tablet, By Mouth, Daily, # 28 tablet, 5 Refills, Maintenance, 07/08/22 11:30:00 EST, [facility], 183, cm, 03/16/22 8:31:00 EDT, Height, 71.3, kg, 08/08/21 0:23:00 EDT, Dry Weight Start Date: 07/08/22 Status: Ordered buPROPion 150 mg/24 hours (XL) oral tablet, extended release 1 tablet, By Mouth, Daily, # 28 tablet, 5 Refills, Maintenance, 09/03/22 20:57:00 EDT, [facility], 28, TAKE 1 TABLET BY MOUTH EVERY DAY, 183, cm, 03/16/22 8:31:00 EDT, Height, 71.3, kg, :23:00 EDT, Dry Weight Start Date: 09/03/22 Status: Ordered carvedilol 12.5 mg oral tablet 1, tablet, By Mouth, 2 times a day, # 56 tablet, Refills 5, Maintenance, 11/25/22 16:22:00 EDT, Route to Pharmacy Electronically, [facility], 183, cm, 10/08/22 16:18:00 EDT, Height, 71.3, kg, 08/08/21 0:23:00 EDT, Dry Weight Start Date: 11/25/22 Status: Ordered clopidogrel 75 mg oral tablet 1, tablet, By Mouth, Daily, # 28 tablet, Refills 6, Maintenance, 09/06/22 10:04:00 EDT, Route to Pharmacy Electronically, [facility], 183, cm, 03/16/22 8:31:00 EDT, Height, 71.3, [...] 6 Refills, Maintenance, 05/14/2216:30:00 EST, [facility], 183, cm, 03/16/22 8:31:00 EDT, Height, 71.3, kg, 08/08/21 0:23:00 EDT, Dry Weight Start Date: 05/14/22 Status: Ordered Eliquis 5 mg oral tablet 1 tablet, By Mouth, 2 times a day, # 56 tablet, 6 Refills, [facility], 183, cm, 08/12/21 14:20:00 EDT, Height, 71.3, kg, 08/08/21 0:23:00 EDT, Dry Weight Start Date: 09/26/21 Status: Ordered Eliquis 5 mg oral tablet See Instructions, TAKE 1 TABLET BY MOUTH TWICE A DAY, # 56 tablet, 6 Refills, Maintenance, 11/30/2314:39:00 EDT, [facility], 183, cm, 10/08/22 16:18:00 EDT, Height, 71.3, kg, 08/08/21 0:23:00 EDT, Dry Weight Start Date: 11/30/22 Status: Ordered furosemide 40 mg oral tablet 1, tablet, By Mouth, 2 times a day, # 56 tablet, Refills 2, Maintenance, 09/30/22 8:51:00 EDT, Route to Pharmacy Electronically, [facility], 183, cm, 03/16/22 8:31:00 EDT, Height, 71.3, kg, 08/08/21 0:23:00 EDT, Dry Weight Start Date: 09/30/22 Status: Ordered hydrALAZINE 50 mg oral tablet 1 tablet, By Mouth, 3 times a day, # 84 tablet, 2 Refills, Maintenance, 11/25/22 16:22:00 EDT, [facility], 183, cm, 10/08/22 16:18:00 EDT, Height, 71.3, kg, 08/08/21 0:23:00 EDT, Dry Weight Start Date: 11/25/22 Status: Ordered isosorbide mononitrate 60 mg oral tablet, extended release 1 tablet, By Mouth, Daily in AM, # 28 tablet, 2 Refills, Maintenance, 11/25/22 16:23:00 EDT, [facility] 47[facility], 183, cm, 10/08/22 16:18:00 EDT, Height, 71.3, kg, 08/08/21 0:23:00 EDT, Dry Weight Start Date: 11/25/22 Status: Ordered Mylanta Maximum Strength oral suspension 5 mL, By Mouth, 4 times a day, PRN for control of stomach acid, # 200 mL, 1 Refills, Maintenance, 08/12/21 13:46:00 EDT, Suspension, [facility]/pharmacy #[id number], Partial fill upon patient request if the prescription is for a schedule II opioid drug., 5 mL By M... Start Date: 08/12/21 Status: Ordered nitroglycerin 0.4 mg sublingual tablet 1 tablet = 0.4 mg, Sublingual, Every 5 minutes, PRN Chest Pain, # 25 tablet, 3 Refills, Maintenance, 08/24/19 15:40:00 EDT, [facility]/pharmacy #[id number], 183, cm, 05/25/19 15:06:00 EST, Height, 88.3, kg, 08/31/17 3:30:00 EDT, Dry Weight Start Date: 08/24/19 Stop Date: 12/22/19 Status: Ordered oxyCODONE 30 mg oral tablet 2 tablet = 60 mg, By Mouth, Every 3 hours, 5PMP checked. fill on 01/03/23, # 224 tablet, 0 Refills, Maintenance, 12/18/22 8:39:00 EDT, [facility]/pharmacy #[id number], may partial fill upon request; fill 07/19/2022,183, cm, 10/08/22 16:18:00 EDT, Height, 71.3, kg,... Start Date: 12/18/22 Stop Date: 01/01/23 Status: Ordered pantoprazole 40 mg oral delayed [...] Start Date: 11/30/22 Status: Ordered Potassium Chloride ([id number]-Ypf 10) 10 mEq oral tablet, extended release See Instructions, TAKE 2 TABLETS BY MOUTH EVERY MORNING AND TAKE 1 TABLET EVERY EVENING, # 84 tablet, 2 Refills, Maintenance, 11/30/22 15:38:00 EDT, [facility], 183, cm, 10/08/22 16:18:00 EDT, Height, 71.3, kg, 08/08/21 0:23:00 EDT, Dry Weight Start Date: 11/30/22 Status: Ordered Potassium Chloride (Zbw-[id number]-[id number] 10) 10 mEq oral tablet, extended release See Instructions, TAKE 2 TABLETS BY MOUTH EVERY MORNING AND TAKE 1 TABLET EVERY EVENING, # 84 tablet, 2 Refills, Maintenance, 09/06/22 10:04:00 EDT, [facility], 183, cm, 03/16/22 8:31:00 EDT, Height, 71.3, kg, 08/08/21 0:23:00 EDT, Dry Weight Start Date: 09/06/22 Status: Ordered sertraline 100 mg oral tablet 1 tablet, By Mouth, Daily, # 28 tablet, 5 Refills, Maintenance, 06/09/22 8:26:00 EST, [facility], 183, cm, 03/16/22 8:31:00 EDT, Height, 71.3, kg, 08/08/21 0:23:00 EDT, Dry Weight Start Date: 06/09/22 Status: Ordered sertraline 100 mg oral tablet See Instructions, TAKE 1 TABLET BY MOUTH EVERY DAY, # 28 tablet, 5 Refills, Maintenance, 11/30/22 15:39:00 EDT, [facility], 183, cm, 10/08/22 16:18:00 EDT, Height, 71.3, kg, 08/08/21 0:23:00 EDT, Dry Weight Start Date: 11/30/22 Status: Ordered spironolactone 25 mg oral tablet 1, tablet, By Mouth, Daily, # 28 tablet, Refills 4, Maintenance, 07/08/22 11:30:00 EST, Route to Pharmacy Electronically, [facility], 183, cm, 03/16/22 8:31:00 EDT, Height, 71.3, kg, 08/08/21 0:23:00 EDT, Dry Weight Start Date: 07/08/22 Status: Ordered spironolactone 25 mg oral tablet See Instructions, TAKE 1 TABLET BY MOUTH EVERY DAY, # 28 tablet, Refills 4, Maintenance, 11/30/22 15:38:00 EDT, Instructions Replace Required Details, Route to Pharmacy Electronically, [facility], 183, cm, 10/08/22 16:18:00 EDT, Height, 71.3, kg,... Start Date: 11/30/22 Status: Ordered sucralfate 1 gm oral tablet 1, tablet, By Mouth, 3 times a day before meals, AND BEDTIME., # 112 tablet, Refills 2, Maintenance, 10/29/22 0:27:00 EDT, Route to Pharmacy Electronically, [facility], 183, cm, 10/08/22 16:18:00 EDT, Height, 71.3, kg, 08/08/21 0:23:00 EDT, Dry W... Start Date: 10/29/22 Status: Ordered Vitamin B-12 1000 mcg oral tablet See Instructions, TAKE 1 TABLET BY MOUTH EVERY DAY, # 28 tablet, Refills 5, Maintenance, 05/14/22 16:30:00 EST, Instructions Replace Required Details, Route to Pharmacy Electronically, [facility], 183, cm, 03/16/22 8:31:00 EDT, Height, 71.3, kg,... Start Date: 05/14/22 Status: Ordered Vitamin B-12 1000 mcg oral tablet 1, tablet, By Mouth, Daily, # 28 tablet, Refills 5, Route to Pharmacy Electronically, [facility], 183, cm, 08/12/21 14:20:00 EDT, Height, 71.3, kg, 08/08/21 0:23:00 EDT, Dry Weight Start Date: 09/26/21 Status: Ordered Vitamin B-12 1000 mcg oral tablet See Instructions, TAKE 1 TABLET BY MOUTH EVERY DAY, # 28 tablet, Refills 0, Maintenance, 11/30/22 15:39:00 EDT, Instructions Replace Required Details, Route to Pharmacy Electronically, [facility], 183, cm, 10/08/22 16:18:00 EDT, Height, 71.3, kg,... Start Date: 11/30/22 Status: Ordered Problem List Condition Confirmation Course [...] M.D. at [facility]. 4In the past; states this has resolved Social History Social History Type Response Smoking Status Never smoker entered on: 08/24/16 Sex Patient Care team information Care Team Personnel Name: Irish Saumel RN Position: S RN Member Role: Primary Care Nurse Name: Mireya Ramsey Position: S RN Supv Member Role: Primary Care Nurse Name: Rhea Betancur RN Position: [facility] RN Member Role: Primary Care Nurse Name: Hugo Ayala RN Position: S RN Member Role: Primary Care Nurse Name: Lorna Faust RN Position: S RN Member Role: Primary Care Nurse Name: David Gonzalez MD Position: [facility] Renal MD Member Role: Lifetime Consulting Physician Address: Address: [address], [address] [facility] [address]- [place] Name: Hannah Garcia NP Position: [facility] PCO Associate Professional Member Role: PCP Address: Address: [address] [facility] [place] [address]- [place] Name: Eduin Arias MD Position: [facility] Renal MD Member Role: Lifetime Consulting Physician Address: Address: [address], [address] [place] [address]- [place] Name: Ana Herrera RN Position: [facility] AMB Nurse Member Role: Primary Care Nurse Name: Cadence Quach RN Position: [facility] OB RN Member Role: Primary Care Nurse Name: Maggy Tsang RN Position: [facility] RN Member Role: Primary Care Nurse Name: Keyla Keys RN Position: [facility] SN RN Member Role: Primary Care Nurse Name: Марина Guevara RN Position: [facility] RN Member Role: Primary Care Nurse Name: Lyn Hemls RN Position: [facility] RN Member Role: Primary Care Nurse Name: Tatum Biswas RN Position: [facility] RN Member Role: Primary Care Nurse Name: Hugo Bateman RN Position: [facility] RN Member Role: Primary Care Nurse Name: Petros Levy RN Position: [facility] RN Member Role: Primary Care Nurse Name: Charly Burns RN Position: [facility] RN Member Role: Primary Care Nurse Name: Izabella Braun RN Position: [facility] RN Member Role: Primary Care Nurse Name: Lyndsay King RN Position: [facility] RN Member Role: Primary Care Nurse Name: Felicia Kerr RN Position: [facility] RN Member Role: Primary Care Nurse Name: Hafsa Goyal RN Position: [facility] RN Member Role: Primary Care Nurse Name: Rosalio Jack RN Position: [facility] RN Member Role: Primary Care Nurse Name: Carmela Houser RN Position: [facility] SN RN Member Role: Primary Care Nurse Name: Michael Dickson RN Position: [facility] RN Member Role: Primary Care Nurse Name: Jessica Lema RN Position: [facility] RN Member Role: Primary Care Nurse Name: Phu Flynn MD Position: [facility] Renal MD Member Role: Lifetime Consulting Physician Address: Address: [address] [place] [address] [facility] [address] Name: Yesica Serna RN Position: [facility] OB RN Member Role: Primary Care Nurse Name: Jesusita Lou RN Position: [facility] OB RN Member Role: Primary Care Nurse Name: Karen Quach RN Position: [facility] PCO w/OE and EZ Script Member Role: Primary Care Nurse Name: Marshall Byrd RN Position: [facility] RN Member Role: Primary Care Nurse Care Team Related Persons Name: DUTCH MAR Address: [place] [address] Name: ALL AYERS Address: [address] [place] [address] Name: ALL MANZANARES Address: [address] [place] [address] Name: CHRISTEN GRIMALDO Address: [address] [place] [address]
--- OUTSIDE RECORDS SUMMARY | 2023-11-18 12:33 | XMS_ITS | Continuity of Care Document ---
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 Role Phone Radha TRANSFER CLERK, Hannah Primary Care Physician Encounter [facility] [place] Date(s): 07/15/22 - 08/14/22 [facility] Adult [address] [place] [phone]- Allergies, Adverse Reactions, Alerts Substance Reaction Severity [...] 07/08/22 11:30:00 EST, Route to Pharmacy Electronically, [id number], 183, cm, 03/16/22 8:31:00 EDT, Height, 71.3, kg, 08/08/21 0:23:00 EDT, Dry Weight Start Date: 07/08/22 Status: Ordered amLODIPine 5 mg oral tablet 1 tablet, By Mouth, Daily, # 28 tablet, 4 Refills, Maintenance, 04/13/22 11:43:00 EST, [facility] [id number], 183, cm, 03/16/22 8:31:00 EDT, Height, 71.3, kg, 08/08/21 0:23:00 EDT, Dry Weight Start Date: 04/13/22 Status: Ordered atorvastatin 40 mg oral tablet 1 tablet, By Mouth, Daily, # 28 tablet, 5 Refills, Maintenance, 07/08/22 11:30:00 EST, [facility] [id number], 183, cm, 03/16/22 8:31:00 EDT, Height, 71.3, kg, 08/08/21 0:23:00 EDT, Dry Weight Start Date: 07/08/22 Status: Ordered buPROPion 150 mg/24 hours (XL) oral tablet, extended release See Instructions, TAKE 1 TABLET BY MOUTH EVERY 24 HOURS, # 28 tablet, 5 Refills, 03/18/22 11:05:00 EDT, [facility]/pharmacy #[id number], 28, TAKE 1 TABLET BY MOUTH EVERY 24 HOURS, 183, cm, 03/16/22 8:31:00 EDT, Height, 71.3, kg, 08/08/21 0:23:00 EDT, Dry Weight Start Date: 03/18/22 Status: Ordered buPROPion 150 mg/24 hours (XL) oral tablet, extended release 1 tablet, By Mouth, Every 24 hours, # 28 tablet, 2 Refills, [facility] [id number], 28, TAKE 1 TABLET BY MOUTH EVERY 24 HOURS, 183, cm, 08/12/21 14:20:00 EDT, Height, 71.3, kg, 08/08/21 0:23:00 EDT, Dry Weight Start Date: 09/25/21 Status: Ordered carvedilol 12.5 mg oral tablet 1, tablet, By Mouth, 2 times a day, # 56 tablet, Refills 5, Route to Pharmacy Electronically, [facility] 73842, 183, cm, 05/04/21 3:09:00 EST, Height, 81.7, kg, 04/16/21 3:06:00 EST, Dry Weight Start Date: 07/07/21 Status: Ordered carvedilol 12.5 mg oral tablet See Instructions, TAKE 1 TABLET BY MOUTH TWICE A DAY, # 56 tablet, Refills 5, Tot. Refills 5, 03/18/22 11:05:00 EDT, Instructions Replace Required Details, Route to Pharmacy Electronically, [facility]/pharmacy #[id number], 183, cm, 03/16/22 8:31:00 EDT, Height, 71... Start Date: 03/18/22 Status: Ordered clopidogrel 75 mg oral tablet 1, tablet, By Mouth, Daily, # 28 tablet, Refills 5, Route to Pharmacy Electronically, [facility] 66459, 183, cm, 05/04/21 3:09:00 EST, Height, 81.7, kg, 04/16/21 3:06:00 EST, Dry Weight Start Date: 07/02/21 Status: Ordered clopidogrel 75 mg oral tablet 75 mg, 1, tablet, By Mouth, Daily, for 30 days, # 30 tablet, Refills 5, Tot. Refills 5, Physician Stop 09/14/22 13:18:00 EDT, 03/18/22 13:18:00 EDT, Route to Pharmacy Electronically, [facility]/pharmacy #[id number], 183, cm, 03/16/22 8:31:00 EDT, Height, 71.3, kg,... Start Date: 03/18/22 Stop Date: 09/14/22 Status: Ordered Eliquis 5 mg oral tablet See Instructions, TAKE 1 TABLET BY MOUTH TWICE A DAY, # 56 tablet, 6 Refills, Maintenance, 05/14/2216:30:00 EST, [facility] 77417, 183, cm, 03/16/22 8:31:00 EDT, Height, 71.3, kg, 08/08/21 0:23:00 EDT, Dry Weight Start Date: 05/14/22 Status: Ordered Eliquis 5 mg oral tablet 1 tablet, By Mouth, 2 times a day, # 56 tablet, 6 Refills, [facility] 64892, 183, cm, 08/12/21 14:20:00 EDT, Height, 71.3, kg, 08/08/21 0:23:00 EDT, Dry Weight Start Date: 09/26/21 Status: Ordered furosemide 40 mg oral tablet 1, tablet, By Mouth, 2 times a day, # 56 tablet, Refills 2, Maintenance, 07/08/22 11:30:00 EST, Route to Pharmacy Electronically, [facility] [id number], 183, cm, 03/16/22 8:31:00 EDT, Height, 71.3, kg, 08/08/21 0:23:00 EDT, Dry Weight Start Date: 07/08/22 Status: Ordered hydrALAZINE 50 mg oral tablet 1 tablet, By Mouth, 3 times a day, # 84 tablet, 1 Refills, Maintenance, 08/03/22 8:30:00 EDT, [facility], 183, cm, 03/16/22 8:31:00 EDT, Height, 71.3, kg, 08/08/21 0:23:00 EDT, Dry Weight Start Date: 08/03/22 Status: Ordered isosorbide mononitrate 60 mg oral tablet, extended release 1 tablet, By Mouth, Daily in AM, # 28 tablet, 4 Refills, Maintenance, 04/13/22 11:43:00 EST, [facility], 183, cm, 03/16/22 8:31:00 EDT, Height, 71.3, kg, 08/08/21 0:23:00 EDT, Dry Weight Start Date: 04/13/22 Status: Ordered Mylanta Maximum Strength oral suspension 5 mL, By Mouth, 4 times a day, PRN for control of stomach acid, # 200 mL, 1 Refills, Maintenance, 08/12/21 13:46:00 EDT, Suspension, [facility]/pharmacy #[id number], Partial fill upon patient request if the prescription is for a schedule II opioid drug., 5 mL By M... Start Date: 08/12/21 Status: Ordered nitroglycerin 0.4 mg sublingual tablet 1 tablet = 0.4 mg, Sublingual, Every 5 minutes, PRN Chest Pain, # 25 tablet, 3 Refills, Maintenance, 08/24/19 15:40:00 EDT, [facility]/pharmacy #[id number], 183, cm, 05/25/19 15:06:00 EST, Height, 88.3, kg, 08/31/17 3:30:00 EDT, Dry Weight Start Date: 08/24/19 Stop Date: 12/22/19 Status: Ordered oxyCODONE 30 mg oral tablet 2 tablet = 60 mg, By Mouth, Every 3 hours, STAGE BUILDER checked. fill on 08/16/22, # 224 tablet, 0 Refills, Maintenance, 08/14/22 15:00:00 EDT, [id number], may partial fill upon request; fill 07/19/2022, 183, cm, 03/16/22 8:31:00 EDT, Height, 71.3, kg, 03... Start Date: 08/14/22 Stop Date: 08/28/22 Status: Ordered pantoprazole 40 mg oral delayed release tablet 1 tablet, By Mouth, Daily, # 28 tablet, 4 Refills, Maintenance, 07/08/22 11:30:00 EST, 183, cm, 03/16/22 8:31:00 EDT, Height, 71.3, kg, 08/08/21 0:23:00 EDT, Dry Weight Start Date: 07/08/22 Status: Ordered Potassium Chloride (Sna-Vjfi-Fti 10) 10 mEq oral tablet, extended release See Instructions, TAKE 2 TABLETS BY MOUTH EVERY MORNING AND TAKE 1 TABLET EVERY EVENING, # 84 tablet, 2 Refills, Maintenance, 06/09/22 9:19:00 EST, [facility] [id number], 183, cm, 03/16/22 8:31:00 EDT, Height, 71.3, kg, 08/08/21 0:23:00 EDT, Dry Weight Start Date: 06/09/22 Status: Ordered sertraline 100 mg oral tablet 1 tablet, By Mouth, Daily, # 28 tablet, 5 Refills, Maintenance, 06/09/22 8:26:00 EST, [facility] 35634, 183, cm, 03/16/22 8:31:00 EDT, Height, 71.3, kg, 08/08/21 0:23:00 EDT, Dry Weight Start Date: 06/09/22 Status: Ordered spironolactone 25 mg oral tablet 1, tablet, By Mouth, Daily, # 28 tablet, Refills 4, Maintenance, 07/08/22 11:30:00 EST, Route to Pharmacy Electronically, [facility] 02736, 183, cm, 03/16/22 8:31:00 EDT, Height, 71.3, kg, 08/08/21 0:23:00 EDT, Dry Weight Start Date: 07/08/22 Status: Ordered sucralfate 1 gm oral tablet 1, tablet, By Mouth, 3 times a day before meals, AND BEDTIME., # 112 tablet, Refills 2, Maintenance, 08/03/22 8:30:00 EDT, Route to Pharmacy Electronically, [facility] 10390, 183, cm, 03/16/22 8:31:00EDT, Height, 71.3, kg, 08/08/21 0:23:00 EDT, Dry We... Start Date: 08/03/22 Status: Ordered Vitamin B-12 1000 mcg oral tablet See Instructions, TAKE 1 TABLET BY MOUTH EVERY DAY, # 28 tablet, Refills 5, Maintenance, 05/14/22 16:30:00 EST, Instructions Replace Required Details, Route to Pharmacy Electronically, [facility] 27950, 183, cm, 03/16/22 8:31:00 EDT, Height, 71.3, kg,... Start Date: 05/14/22 Status: Ordered Vitamin B-12 1000 mcg oral tablet 1, tablet, By Mouth, Daily, # 28 tablet, Refills 5, Route to Pharmacy Electronically, [facility] 11000, 183, cm, 08/12/21 14:20:00 EDT, Height, 71.3, [...] artery disease by Rolando Rubin M.D. at [facility]. 4In the past; states this has resolved Social History Social History Type Response Smoking Status Never smoker entered on: 08/24/16 Sex Patient Care team information Care Team Personnel Name: Irish Samuel RN Position: [facility] RN Member Role: Primary Care Nurse Name: Mireya Ramsey Position: [facility] RN Supv Member Role: Primary Care Nurse Name: Rhea Betancur RN Position: [facility] SN RN Member Role: Primary Care Nurse Name: Hugo Ayala RN Position: [facility] RN Member Role: Primary Care Nurse Name: Lorna Faust RN Position: [facility] RN Member Role: Primary Care Nurse Name: Wilner Feliciano RN Position: [facility] RN Supv Member Role: Primary Care Nurse Name: David Gonzalez MD Position: [facility] Renal MD Member Role: Lifetime Consulting Physician Address: Address: [address] [place] [address], [address] [facility] [place] [address]- [place] Name: Hannah Garcia NP Position: [facility] PCO Associate Professional Member Role: PCP Address: Address: [address] [place] [address], [address] [place] [address]- [place] Name: Eduin Arias MD Position: [facility] Physician (General Medicine) Member Role: Lifetime Consulting Physician Address: Address: [address] [place] [address], [address] [place] [address]- [place] Name: Ana Herrera RN Position: [facility] RN Member Role: Primary Care Nurse Name: Carlos Montez RN Position: [facility] RN Member Role: Primary Care Nurse Name: Cadence Quach RN Position: [facility] OB RN Member Role: Primary Care Nurse Name: Maggy Tsang RN Position: [facility] RN Member Role: Primary Care Nurse Name: Keyla Keys RN Position: [facility] SN RN Member Role: Primary Care Nurse Name: Марина Guevara RN Position: [facility] RN Member Role: Primary Care Nurse Name: Lyn Helms RN Position: [facility] RN Member Role: Primary Care Nurse Name: Tatum Biswas RN Position: [facility] RN Member Role: Primary Care Nurse Name: Hugo Bateman RN Position: [facility] RN Member Role: Primary Care Nurse Name: Petros Levy RN Position: [facility] RN Member Role: Primary Care Nurse Name: Charly Burns RN Position: [facility] RN Member Role: Primary Care Nurse Name: Izabella Braun RN Position: [facility] RN Member Role: Primary Care Nurse Name: Lyndsay King RN Position: [facility] RN Member Role: Primary Care Nurse Name: Felicia Kerr RN Position: [facility] RN Member Role: Primary Care Nurse Name: Hafsa Goyal RN Position: [facility] RN Member Role: Primary Care Nurse Name: Rosalio Jack RN Position: [facility] RN Member Role: Primary Care Nurse Name: Geovanna Hill RN Position: [facility] RN Member Role: Primary Care Nurse Name: Carmela Houser RN Position: [facility] SN RN Member Role: Primary Care Nurse Name: Michael Dickson RN Position: [facility] RN Member Role: Primary Care Nurse Name: Jessica Lema RN Position: [facility] RN Member Role: Primary Care Nurse Name: Phu Flynn MD Position: [facility] Renal MD Member Role: Lifetime Consulting Physician Address: Address: [address] [place] [address] [facility] [address] Name: Yesica Serna RN Position: [facility] OB RN Member Role: Primary Care Nurse Name: Jesusita Lou RN Position: [facility] OB RN Member Role: Primary Care Nurse Name: Karen Quach RN Position: [facility] PCO w/OE and EZ Script Member Role: Primary Care Nurse Name: Marshall Byrd RN Position: [facility] RN Member Role: Primary Care Nurse Care Team Related Persons Name: DUTCH MAR Address: [place], [place] Name: ALL AYERS Address: home [address], [place] Name: ALL MANZANARES Address: home [address], [place] Name: CHRISTEN GRIMALDO Address: home [address], [place]
--- OUTSIDE RECORDS SUMMARY | 2023-11-18 12:33 | XMS_ITS | Continuity of Care Document ---
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 Role Phone Radha ODONNELL, Hannah Primary Care Physician Encounter [facility] Date(s): 05/23/23 - 06/22/23 [facility] Adult [address] [place] [address]- Allergies, Adverse Reactions, Alerts Substance Reaction Severity [...] 01/09/23 7:22:00 EDT, Route to Pharmacy Electronically, [facility], 183, cm, 10/08/22 16:18:00 EDT, Height, 71.3, kg, 08/08/21 0:23:00 EDT, Dry Weight Start Date: 01/09/23 Status: Ordered amLODIPine 5 mg oral tablet 1 tablet, By Mouth, Daily, # 28 tablet, 5 Refills, Maintenance, 11/25/22 16:21:00 EDT, [facility] 89963, 183, cm, 10/08/22 16:18:00 EDT, Height, 71.3, kg, 08/08/21 0:23:00 EDT, Dry Weight Start Date: 11/25/22 Status: Ordered atorvastatin 40 mg oral tablet 1 tablet, By Mouth, Daily, # 28 tablet, 2 Refills, Maintenance, 01/09/23 7:23:00 EDT, [facility], 183, cm, 10/08/22 16:18:00 EDT, Height, 71.3, [...] tablet, 5 Refills, Maintenance, 04/21/23 18:36:00 EST, [facility]/pharmacy#[id number], 1 tablet By Mouth Daily,x28 days, 183, cm, 03/28/23 11:43:00 EST, Height, 71.3, kg, :23:00 EDT, Dry Weight Start Date: 04/21/23 Stop Date: 10/06/23 Status: Ordered carvedilol 12.5 mg oral tablet 1, tablet, By Mouth, 2 times a day, # 56 tablet, Refills 5, Maintenance, 11/25/22 16:22:00 EDT, Route to Pharmacy Electronically, [facility], 183, cm, 10/08/22 16:18:00 EDT, Height, 71.3, kg, 08/08/21 0:23:00 EDT, Dry Weight Start Date: 11/25/22 Status: Ordered cholecalciferol 50,000 intl units oral capsule 1 capsule = 50,000 International_Units, By Mouth, Every week, # 13 capsule, 3 Refills, Maintenance,03/19/23 15:28:00 EDT, Capsule, [facility]/pharmacy #[id number], Partial fill upon patient request if the prescription is for a schedule II opioid drug., 183, cm, 0... Start Date: 03/19/23 Stop Date: 03/13/24 Status: Ordered cholecalciferol 50,000 intl units oral capsule 1 capsule = 50,000 International_Units, By Mouth, Every 7 days, # 13 capsule, 3 Refills, Maintenance, 03/20/23 8:29:00 EST, Capsule, [facility]/pharmacy #[id number], Partial fill upon patient request, 183, cm, 10/08/22 16:18:00 EDT, Height, 71.3, kg, 08/08/21 0:23... Start Date: 03/20/23 Stop Date: 03/14/24 Status: Ordered clopidogrel 75 mg oral tablet 1, tablet, By Mouth, Daily, # 28 tablet, Refills 5, Tot. Refills 5, Maintenance, 06/08/23 14:08:00 EST, [id number], cm, 05/10/23 11:59:00 EST, Height, [...] a day, # 56 tablet, 6 Refills, [facility] 83176, 183, cm, 08/12/21 14:20:00 EDT, Height, 71.3, kg, 08/08/21 0:23:00 EDT, Dry Weight Start Date: 09/26/21 Status: Ordered Eliquis 5 mg oral tablet See Instructions, TAKE 1 TABLET BY MOUTH TWICE A DAY, # 56 tablet, 6 Refills, Maintenance, 06/07/2409:23:00 EST, [facility]/pharmacy #[id number], 183, cm, 05/10/23 11:59:00 EST, Height, 71.3, kg, 08/08/21 0:23:00 EDT, Dry Weight Start Date: 06/07/23 Status: Ordered furosemide 40 mg oral tablet 1, tablet, By Mouth, 2 times a day, # 56 tablet, Refills 2, Tot. Refills 2, Maintenance, 04/21/23 18:37:00 EST, Route to Pharmacy Electronically, [facility]/pharmacy #[id number], 183, cm, 03/28/23 [...] tablet, 2 Refills, Maintenance, 04/27/23 13:02:00 EST, [facility] 42896, 183, cm, 03/28/23 11:43:00 EST, Height, 71.3, kg, 08/08/21 0:23:00 EDT, Dry Weight Start Date: 04/27/23 Status: Ordered isosorbide mononitrate 60 mg oral tablet, extended release 1 tablet, By Mouth, Daily in AM, # 28 tablet, 5 Refills, Maintenance, 04/21/23 18:37:00 EST, [facility]/pharmacy #[id number], 183, cm, 03/28/23 11:43:00 EST, Height, 71.3, kg, 08/08/21 0:23:00 EDT, Dry Weight Start Date: 04/21/23 Stop Date: 10/06/23 Status: Ordered Mylanta Maximum Strength oral suspension 5 mL, By Mouth, 4 times a day, PRN for control of stomach acid, # 200 mL, 1 Refills, Maintenance, 08/12/21 13:46:00 EDT, Suspension, [facility]/pharmacy #[id number], Partial fill upon patient request if the prescription is for a schedule II opioid drug., 5 mL By M... Start Date: 08/12/21 Status: Ordered Narcan 4 mg/0.1 mL nasal spray = 4 mg, Nares, Both, Once, may repeat every 2 to 3 minutes until patient responds, # 1 each, 0 Refills, Soft Stop, 05/14/23 10:41:00 EST, [facility]/pharmacy #[id number], Partial fill upon patient request if the prescription is for a schedule II opioid drug., 183,... Start Date: 05/14/23 Status: Ordered nitroglycerin 0.4 mg sublingual tablet 1 tablet = 0.4 mg, Sublingual, Every 5 minutes, PRN Chest Pain, # 25 tablet, 3 Refills, Maintenance, 08/24/19 15:40:00 EDT, [facility]/pharmacy #[id number], 183, cm, 05/25/19 15:06:00 EST, Height, 88.3, kg, 08/31/17 3:30:00 EDT, Dry Weight Start Date: 08/24/19 Stop Date: 12/22/19 Status: Ordered oxyCODONE 30 mg oral tablet 1-2 tablet, By Mouth, Every 3 hours, # 84 tablet, 0 Refills, Maintenance, 06/22/23 13:41:00 EST, [facility]/pharmacy #[id number], may partial fill upon request;, 183, cm, 05/10/23 11:59:00 EST, Height, 71.3, kg, 08/08/21 0:23:00 EDT, Dry Weight Start Date: 06/22/23 Stop Date: 06/29/23 Status: Ordered pantoprazole 40 mg oral delayed [...] Start Date: 11/30/22 Status: Ordered Potassium Chloride (Akz-Wygo-Hmn 10) 10 mEq oral tablet, extended release See Instructions, TAKE 2 TABLETS BY MOUTH EVERY MORNING AND TAKE 1 TABLET EVERY EVENING, # 84 tablet, 2 Refills, Maintenance, 04/27/23 13:02:00 EST, [facility], 183, cm, 03/28/23 11:43:00 EST, Height, 71.3, kg, 08/08/21 0:23:00 EDT, Dry Weight Start Date: 04/27/23 Status: Ordered sertraline 100 mg oral tablet 1 tablet, By Mouth, Daily, # 28 tablet, 5 Refills, Maintenance, 06/09/22 8:26:00 EST, [facility], 183, cm, 03/16/22 8:31:00 EDT, Height, 71.3, kg, 08/08/21 0:23:00 EDT, Dry Weight Start Date: 06/09/22 Status: Ordered sertraline 100 mg oral tablet See Instructions, TAKE 1 TABLET BY MOUTH EVERY DAY, # 28 tablet, 5 Refills, Maintenance, 11/30/22 15:39:00 EDT, [facility], 183, cm, 10/08/22 16:18:00 EDT, Height, 71.3, kg, 08/08/21 0:23:00 EDT, Dry Weight Start Date: 11/30/22 Status: Ordered spironolactone 25 mg oral tablet 1, tablet, By Mouth, Daily, # 28 tablet, Refills 4, Maintenance, 07/08/22 11:30:00 EST, Route to Pharmacy Electronically, [facility] 25[facility], 183, cm, 03/16/22 8:31:00 EDT, Height, 71.3, kg, 08/08/21 0:23:00 EDT, Dry Weight Start Date: 07/08/22 Status: Ordered spironolactone 25 mg oral tablet See Instructions, TAKE 1 TABLET BY MOUTH EVERY DAY, # 28 tablet, Refills 4, Maintenance, 11/30/22 15:38:00 EDT, Instructions Replace Required Details, Route to Pharmacy Electronically, [facility], 183, cm, 10/08/22 16:18:00 EDT, Height, 71.3, kg,... Start Date: 11/30/22 Status: Ordered sucralfate 1 gm oral tablet 1, tablet, By Mouth, 3 times a day before meals, AND BEDTIME., # 112 tablet, Refills 5, Maintenance, 02/04/23 16:32:00 EDT, Route to Pharmacy Electronically, [facility] 0[facility], 183, cm, 10/08/22 16:18:00 EDT, Height, 71.3, kg, 08/08/21 0:23:00 EDT, Dry... Start Date: 02/04/23 Status: Ordered Vitamin B-12 1000 mcg oral tablet 1, tablet, By Mouth, Daily, # 28 tablet, Refills 11, Tot. Refills 11, Maintenance, 04/21/23 18:37:00 EST, Route to Pharmacy Electronically, [facility]/pharmacy #[id number], 183, cm, 03/28/23 [...] artery disease by Rolando Rubin M.D. at [facility]. 4In the past; states this has resolved Social History Social History Type Response Smoking Status Never smoker entered on: 08/24/16 Sex Patient Care team information Care Team Personnel Name: Irish Samuel RN Position: [facility] RN Member Role: Primary Care Nurse Name: Mireya Ramsey Position: [facility] RN Supv Member Role: Primary Care Nurse Name: Rhea Betancur RN Position: [facility] SN RN Member Role: Primary Care Nurse Name: Hugo Ayala RN Position: [facility] RN Member Role: Primary Care Nurse Name: Lorna Faust RN Position: [facility] RN Member Role: Primary Care Nurse Name: David Gonzalez MD Position: [facility] Renal MD Member Role: Lifetime Consulting Physician Address: Address: [address] [place] [address] [address] [facility] [address]- [place] Name: Hannah Garcia NP Position: [facility] PCO Associate Professional Member Role: PCP Address: Address: [address] [place] [address], [address] [place] [address]- Name: Eduin Arias MD Position: [facility] Renal MD Member Role: Lifetime Consulting Physician Address: Address: [address] [place] [address], [address] [place] [address]- [place] Name: Ana Herrera RN Position: [facility] AMB Nurse Member Role: Primary Care Nurse Name: Carlos Montez RN Position: [facility] Outreach Member Role: Primary Care Nurse Name: Cadence Quach RN Position: [facility] OB RN Member Role: Primary Care Nurse Name: Maggy Tsang RN Position: [facility] RN Member Role: Primary Care Nurse Name: Keyla Keys RN Position: [facility] SN RN Member Role: Primary Care Nurse Name: Марина Guevara RN Position: [facility] SN RN Member Role: Primary Care Nurse Name: Lyn Helms RN Position: [facility] RN Member Role: Primary Care Nurse Name: Tatum Biswas RN Position: [facility] RN Member Role: Primary Care Nurse Name: Hugo Bateman RN Position: [facility] RN Member Role: Primary Care Nurse Name: Petros Levy RN Position: [facility] RN Member Role: Primary Care Nurse Name: Izabella Braun RN Position: [facility] RN Member Role: Primary Care Nurse Name: Lyndsay King RN Position: [facility] RN Member Role: Primary Care Nurse Name: Hafsa Goyal RN Position: [facility] RN Member Role: Primary Care Nurse Name: Rosalio Jack RN Position: [facility] RN Member Role: Primary Care Nurse Name: Carmela Houser RN Position: [facility] SN RN Member Role: Primary Care Nurse Name: Michael Dickson RN Position: [facility] RN Member Role: Primary Care Nurse Name: Jessica Lema RN Position: [facility] RN Member Role: Primary Care Nurse Name: Phu Flynn MD Position: [facility] Renal MD Member Role: Lifetime Consulting Physician Address: Address: [address] [place] [address] [facility] [address] Name: Yesica Serna RN Position: [facility] OB RN Member Role: Primary Care Nurse Name: Jesusita Lou RN Position: [facility] OB RN Member Role: Primary Care Nurse Name: Husam Elizalde RN Position: [facility] RN Member Role: Primary Care Nurse Name: Marshall Byrd RN Position: [facility] RN Member Role: Primary Care Nurse Care Team Related Persons Name: ROXANNAREINALDO HURTADOISSA Address: [place], [place] Name: ALL AYERS Address: [address], [place] Name: ALL MANZANARES Address: [address], [place] Name: CHRISTEN GRIMALDO Address: [address], [place]
--- OUTSIDE RECORDS SUMMARY | 2023-11-18 12:33 | XMS_ITS | Continuity of Care Document ---
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 Start Date: 05/15/20 Status: Ordered amLODIPine 5 mg oral tablet 5 mg, 1, tablet, By Mouth, Daily, # 30 tablet, Refills 5, Tot. Refills 5, Maintenance, 04/29/20 13:47:00 EST, Route to Pharmacy Electronically, [facility]/pharmacy #[id number], 183, cm, 02/05/20 12:53:00 EDT, Height Start Date: 04/29/20 Stop Date: 10/26/20 Status: Ordered atorvastatin 40 mg oral tablet See Instructions, TAKE 1 TABLET BY MOUTH EVERY DAY, # 28 tablet, 5 Refills, Soft Stop, 12/27/19 14:47:00 EDT, [facility]/pharmacy #[id number], 183, cm, 11/05/19 9:35:00 EDT, Height, Dry Weight Start Date: 12/27/19 Status: Ordered buPROPion 150 mg/24 hours (XL) oral tablet, extended release 1 tablet = 150 mg, By Mouth, Every 24 hours, # 30 tablet, 5 Refills, Maintenance, 02/18/20 10:40:00EDT, ER Tablet, [facility]/pharmacy #[id number], Bubble pack and delivery, 1 tablet By Mouth Every 24 hours, 183, cm, 02/05/20 12:53:00 EDT, Height, Dry Weight Start Date: 02/18/20 Status: Ordered carvedilol 12.5 mg oral tablet 12.5 mg, 1, tablet, By Mouth, 2 times a day, # 60 tablet, Refills 2, Tot. Refills 2, Soft Stop, 04/12/20 20:34:00 EST, Route to Pharmacy Electronically, [facility]/pharmacy #[id number], 183, cm, 02/05/20 12:53:00EDT, Height Start Date: 04/12/20 Status: Ordered clopidogrel 75 mg oral tablet 75 mg, 1, tablet, By Mouth, Daily, # 30 tablet, Refills 5, Tot. Refills 5, Maintenance, 05/15/20 15:55:00 EST, Route to Pharmacy Electronically, [facility]/pharmacy #[id number], 183, cm, 05/12/20 9:35:00 EST, Height Start Date: 05/15/20 Status: Ordered [facility] B-12 1,000 MCG TABLET See Instructions, # 30 tablet, TAKE 1 TABLET BY MOUTH EVERY DAY, [facility]/pharmacy #[id number] Start Date: 03/20/19 Status: Ordered docusate sodium 100 mg oral capsule 100 mg, 1, capsule, By Mouth, 3 times a day, Bubble Pack and Delivery, # 90 capsule, Refills 5, Tot. Refills 5, Maintenance, 11/22/17 13:28:22 EDT, Route to Pharmacy Electronically, [id number], [facility]/pharmacy #[id number] Start Date: 11/22/17 Stop Date: 05/21/18 Status: Ordered Eliquis 5 mg oral tablet 1 tablet = 5 mg, By Mouth, 2 times a day, # 60 tablet, 5 Refills, Maintenance, 02/18/20 14:47:00 EDT, Tablet, [facility]/pharmacy #[id number], 183, cm, 02/05/20 12:53:00 EDT, Height, Dry Weight Start Date: 02/18/20 Status: Ordered furosemide 40 mg oral tablet 40 mg, 1, tablet, By Mouth, 2 times a day, # 60 tablet, Refills 2, Tot. Refills 2, Soft Stop, 05/05/20 14:35:00 EST, [id number] replaces previous script. Pt is on 2 tabs daily, 183, cm, 02/05/20 12:53:00... Start Date: 05/05/20 Stop Date: 08/03/20 Status: Ordered hydrALAZINE 50 mg oral tablet 1 tablet = 50 mg, By Mouth, 3 times a day, dose change, # 90 tablet, 1 Refills, Maintenance, 09/10/19 10:37:00 EDT, Tablet, [facility]/pharmacy #[id number], 183, cm, 05/25/19 15:06:00 EST, Height Start Date: 09/10/19 Stop Date: 11/09/19 Status: Ordered isosorbide mononitrate 60 mg oral tablet, extended release 60 mg, 1, tablet, By Mouth, Daily in AM, # 30 tablet, Refills 5, Tot. Refills 5, Soft Stop, 05/03/20 17:20:00 EST, Route to Pharmacy Electronically, [facility]/pharmacy #[id number], 183, cm, 02/05/20 12:53:00 EDT, Height Start Date: 05/03/20 Stop Date: 10/30/20 Status: Ordered NIFEdipine 30 mg oral tablet, extended release 30 mg, 1, tablet, By Mouth, Daily, Bubble Pack and Delivery, # 30 tablet, Refills 3, Tot. Refills 3, Maintenance, 03/27/18 8:38:30 EST, Route to Pharmacy Electronically, [id number], [facility]/pharmacy #[id number] Start Date: 03/27/18 Status: Ordered nitroglycerin 0.4 mg sublingual tablet 1 tablet = 0.4 mg, Sublingual, Every 5 minutes, PRN Chest Pain, # 25 tablet, 3 Refills, Maintenance, 08/24/19 15:40:00 EDT, [facility]/pharmacy #[id number], 183, cm, 05/25/19 15:06:00 EST, Height, 88.3, kg, 08/31/17 3:30:00 EDT, Dry Weight Start Date: 08/24/19 Stop Date: 12/22/19 Status: Ordered oxyCODONE 30 mg oral tablet 2 tablet = 60 mg, By Mouth, Every 3 hours, DYNAMIC BALANCER checked, # 224 tablet, 0 Refills, Acute 05/15/21 14:17:00 EST, 06/12/20 16:43:00 EST, [facility]/pharmacy #[id number], may partial fill upon request;, 06/13/20, 183,cm, 05/12/20 9:35:00 EST, Height Start Date: 06/12/20 Stop Date: 05/15/21 Status: Ordered pantoprazole 40 mg oral delayed release tablet See Instructions, # 28 tablet, Refills 2 Tot. Refills 2, TAKE 1 TABLET BY MOUTH EVERY DAY, [facility]/pharmacy #[id number] Start Date: 02/26/19 Status: Ordered [...] Refills, Maintenance, 04/15/20 9:13:00 EST, ER Tablet, [id number], 183, cm, 02/05/20 12:53:00 EDT, Height Start Date: 04/15/20 Status: Ordered sertraline 100 mg oral tablet 1 tablet = 100 mg, By Mouth, Daily, # 90 tablet, 1 Refills, Maintenance, 02/18/20 14:47:00 EDT, Tablet, [facility]/pharmacy #[id number], Bubble pack and delivery, 183, cm, 02/05/20 12:53:00 EDT, Height Start Date: 02/18/20 Stop Date: 08/16/20 Status: Ordered spironolactone 25 mg oral tablet 25 mg, 1, tablet, By Mouth, Daily, # 30 tablet, Refills 2, Tot. Refills 2, Soft Stop, 04/15/20 9:13:00 EST, [id number] 183, cm, 02/05/20 12:53:00 EDT, Height Start Date: 04/15/20 Stop Date: 07/14/20 Status: Ordered sucralfate 1 gm oral tablet 1 Gm, 1, tablet, By Mouth, 3 times a day before meals and bedtime, # 120 tablet, Refills 2, Tot. Refills 2, Maintenance, 04/29/20 13:47:00 EST, [id number] 183, cm, 02/05/20 12:53:00 EDT, Height Start Date: 04/29/20 Status: Ordered Vitamin B-12 1000 mcg oral tablet 1,000 mcg, 1, tablet, By Mouth, Daily, # 30 tablet, Refills 2, Tot. Refills 2, Soft Stop, 04/15/20 9:13:00 EST, [id number] 183, cm, 02/05/20 12:53:00 EDT, [...] disease by Rolando Rubin M.D. at [facility]. 5In the past; states this has resolved Social History Social History Type Response Smoking Status Never smoker entered on: 08/24/16 Sex
--- OUTSIDE RECORDS SUMMARY | 2023-11-18 12:33 | XMS_ITS | Continuity of Care Document ---
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 Name Role Phone Radha ODONNELL, Hannah Primary Care Physician [phone] En[place] [facility] [place]): 03/16/22 - 04/15/22 [facility] [address] [place] [address]- Attending Physician: Caroline Capmbell Admitting Physician: AdmtrCaroline Referring Physician: AdmtrCaroline Allergies, [...] Daily, # 28 tablet, Refills 2, Maintenance, 04/13/22 11:43:00 EST, Route to Pharmacy Electronically, [id number], 183, cm, 03/16/22 8:31:00 EDT, Height, 71.3, kg, 08/08/21 0:23:00 EDT, Dry Weight Start Date: 04/13/22 Status: Ordered amLODIPine 5 mg oral tablet 1 tablet, By Mouth, Daily, # 28 tablet, 4 Refills, Maintenance, 04/13/22 11:43:00 EST, [id number], 183, cm, 03/16/22 8:31:00 EDT, Height, 71.3, kg, 03/26/22 0:23:00 EDT, Dry Weight Start Date: 04/13/22 Status: Ordered atorvastatin 40 mg oral tablet 1 tablet, By Mouth, Daily, # 28 tablet, 5 Refills, 12/23/21 11:53:00 EDT, [facility]/pharmacy #[id number], 183, cm, 10/20/21 10:31:00 EDT, Height, 71.3, kg, 08/08/21 0:23:00 EDT, Dry Weight Start Date: 12/23/21 Status: Ordered buPROPion 150 mg/24 hours (XL) oral tablet, extended release See Instructions, TAKE 1 TABLET BY MOUTH EVERY 24 HOURS, # 28 tablet, 5 Refills, 03/18/22 11:05:00 EDT, [facility]/pharmacy #[id number], 28, TAKE 1 TABLET BY MOUTH EVERY 24 HOURS, 183, cm, 03/16/22 8:31:00 EDT, Height, 71.3, kg, 08/08/21 0:23:00 EDT, Dry Weight Start Date: 03/18/22 Status: Ordered buPROPion 150 mg/24 hours (XL) oral tablet, extended release 1 tablet, By Mouth, Every 24 hours, # 28 tablet, 2 Refills, [id number], 28, TAKE 1 TABLET BY MOUTH EVERY 24 HOURS, 183, cm, 08/12/21 14:20:00 EDT, Height, 71.3, kg, 08/08/21 0:23:00 EDT, Dry Weight Start Date: 09/25/21 Status: Ordered carvedilol 12.5 mg oral tablet 1, tablet, By Mouth, 2 times a day, # 56 tablet, Refills 5, Route to Pharmacy Electronically, [facility], 183, cm, 05/04/21 3:09:00 EST, Height, 81.7, kg, 04/16/21 3:06:00 EST, Dry Weight Start Date: 07/07/21 Status: Ordered carvedilol 12.5 mg oral tablet See Instructions, TAKE 1 TABLET BY MOUTH TWICE A DAY, # 56 tablet, Refills 5, Tot. Refills 5, 03/18/22 11:05:00 EDT, Instructions Replace Required Details, Route to Pharmacy Electronically, [facility]/pharmacy #[id number], 183, cm, 03/16/22 8:31:00 EDT, Height, 71... Start Date: 03/18/22 Status: Ordered clopidogrel 75 mg oral tablet 1, tablet, By Mouth, Daily, # 28 tablet, Refills 5, Route to Pharmacy Electronically, [facility], 183, cm, 05/04/21 3:09:00 EST, Height, 81.7, kg, 04/16/21 3:06:00 EST, Dry Weight Start Date: 07/02/21 Status: Ordered clopidogrel 75 mg oral tablet 75 mg, 1, tablet, By Mouth, Daily, for 30 days, # 30 tablet, Refills 5, Tot. Refills 5, Physician Stop 09/14/22 13:18:00 EDT, 03/18/22 13:18:00 EDT, Route to Pharmacy Electronically, [facility]/pharmacy #[id number], 183, cm, 03/16/22 8:31:00 EDT, Height, 71.3, kg,... Start Date: 03/18/22 Stop Date: 09/14/22 Status: Ordered Eliquis 5 mg oral tablet 1 tablet, By Mouth, 2 times a day, # 56 tablet, 6 Refills, [facility], 183, cm, 08/12/21 14:20:00 EDT, Height, 71.3, kg, 08/08/21 0:23:00 EDT, Dry Weight Start Date: 09/26/21 Status: Ordered furosemide 40 mg oral tablet 1, tablet, By Mouth, 2 times a day, # 56 tablet, Refills 2, Maintenance, 04/13/22 11:44:00 EST, Route to Pharmacy Electronically, [facility], 183, cm, 03/16/22 8:31:00 EDT, Height, 71.3, kg, 08/08/21 0:23:00 EDT, Dry Weight Start Date: 04/13/22 Status: Ordered hydrALAZINE 50 mg oral tablet 1 tablet, By Mouth, 3 times a day, # 84 tablet, 1 Refills, Maintenance, 04/13/22 12:20:00 EST, [facility], 183, cm, 03/16/22 8:31:00 EDT, Height, 71.3, kg, 08/08/21 0:23:00 EDT, Dry Weight Start Date: 04/13/22 Status: Ordered isosorbide mononitrate 60 mg oral tablet, extended release 1 tablet, By Mouth, Daily in AM, # 28 tablet, 4 Refills, Maintenance, 04/13/22 11:43:00 EST, [facility], 183, cm, 03/16/22 8:31:00 EDT, Height, 71.3, [...] 60 mg, By Mouth, Every 3 hours, JAVA JSF 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 Start Date: 04/12/22 Stop Date: 05/15/23 Status: Ordered pantoprazole 40 mg oral delayed release tablet 1 tablet, By Mouth, Daily, for 30 days, # 30 tablet, 3 Refills, Physician Stop 07/16/22 13:20:00 EST, 03/18/22 13:20:00 EDT, 183, cm, 03/16/22 8:31:00 EDT, Height, 71.3, kg, 08/08/21 0:23:00 EDT, DryWeight Start Date: 03/18/22 Stop Date: 07/16/22 Status: Ordered Potassium Chloride ([id number] 10) 10 mEq oral tablet, extended release See Instructions, TAKE 2 TABLETS BY MOUTH EVERY MORNING AND TAKE 1 TABLET EVERY EVENING, # 84 tablet, 2 Refills, 03/18/22 13:18:00 EDT, [facility]/pharmacy #[id number], 183, cm, 03/16/22 8:31:00 EDT, Height, 71.3, kg, 08/08/21 0:23:00 EDT, Dry Weight Start Date: 03/18/22 Status: Ordered sertraline 100 mg oral tablet 1 tablet, By Mouth, Daily, # 28 tablet, 5 Refills, [facility], 183, cm, 10/20/21 10:31:00 EDT,Height, 71.3, kg, 08/08/21 0:23:00 EDT, Dry Weight Start Date: 11/30/21 Status: Ordered spironolactone 25 mg oral tablet 1, tablet, By Mouth, Daily, for 30 days, # 30 tablet, Refills 3, Tot. Refills 3, Physician Stop 07/16/22 13:20:00 EST, 03/18/22 13:20:00 EDT, Route to Pharmacy Electronically, [facility]/pharmacy #[id number], 183, cm, 03/16/22 8:31:00 EDT, Height, 71.3, kg, 08/08/... Start Date: 03/18/22 Stop Date: 07/16/22 Status: Ordered sucralfate 1 gm oral tablet See Instructions, TAKE 1 TABLET BY MOUTH 3 TIMES A DAY BEFORE MEALS AND BEDTIME, # 112 tablet, Refills 2, Tot. Refills 2, Maintenance, 02/24/22 9:45:00 EDT, Instructions Replace Required Details, Route to Pharmacy Electronically, [facility]/pharmacy #[id number], 1... Start Date: 02/24/22 Status: Ordered sucralfate 1 gm oral tablet 1, tablet, By Mouth, 3 times a day before meals, AND BEDTIME., # 112 tablet, Refills 2, Tot. Refills 2, 08/12/21 13:47:00 EDT, Route to Pharmacy Electronically, [facility]/pharmacy #[id number], 183, cm, 08/12/21 12:05:00 EDT, Height, 71.3, kg, 08/08/21 0:23:00 EDT... Start Date: 08/12/21 Status: Ordered Vitamin B-12 1000 mcg oral tablet 1, tablet, By Mouth, Daily, # 28 tablet, Refills 5, Route to Pharmacy Electronically, [id number], 183, cm, 08/12/21 14:20:00 EDT, Height, 71.3, [...] disease by Rolando Rubin M.D. at [facility]. 4In the past; states this has resolved Social History Social History Type Response Smoking Status Never smoker entered on: 08/24/16 Sex Note * Event Display: Cardiovascular Result Scanned Authored Date: * Event Display: Non BH Lab Results Authored Date: * Nikki Andrade RN: PERFORM Event Display: Discharge/Transfer Note Hospital Authored Date: Post Discharge Phone Call Entered On: 09/27/2017 16:51 EDT Performed On: 09/27/2017 16:50 EDT by Nikki Andrade RN Post Discharge Phone Call Post Discharge Caller : Patient Post Discharge Call Back Number : [phone] Post Discharge Call Category : Other: CHF [...] Inpatient Records Authored Date: * Event Display: Non BH Lab Results Authored Date: * Risa Parisi: PERFORM Event Display: Radiology Results Scanned Authored Date: EKG study * Event Display: EKG Authored Date: Cardiology Consult note * Event Display: Consult Note Cardiology Authored Date: * Event Display: Consult Note Cardiology Authored Date: * Event Display: Consult Note Cardiology Authored Date: CT Head * Event Display: CT Scan Head Authored Date: Patient Care team information Care Team Personnel Name: Irish Samuel RN Position: [facility] RN Member Role: Primary Care Nurse Name: Mireya Ramsey Position: [facility] RN Supv Member Role: Primary Care Nurse Name: Rhea Betancur RN Position: [facility] SN RN Member Role: Primary Care Nurse Name: Hugo Ayala RN Position: S RN Member Role: Primary Care Nurse Name: Lorna Faust RN Position: [facility] RN Member Role: Primary Care Nurse Name: Wilner Feliciano RN Position: [facility] RN Supv Member Role: Primary Care Nurse Name: David Gonzalez MD Position: [facility] Renal MD Member Role: Lifetime Consulting Physician Address: Address: [address], [address] [facility] [place] [address]- [place] Name: Hannah Garcia NP Position: [facility] PCO Associate Professional Member Role: PCP Address: Address: [address] [place] [address], [address]rd Floor [facility] [place] [address]- [place] Name: Eduin Arias MD Position: [facility] Physician (General Medicine) Member Role: Lifetime Consulting Physician Address: Address: [address], [address] [place] [address]- [place] Name: Ana Herrera RN Position: [facility] RN Member Role: Primary Care Nurse Name: Carlos Montez RN Position: [facility] RN Member Role: Primary Care Nurse Name: Cadence Quach RN Position: [facility] OB RN Member Role: Primary Care Nurse Name: Maggy Tsang RN Position: [facility] RN Member Role: Primary Care Nurse Name: Keyla Keys RN Position: [facility] SN RN Member Role: Primary Care Nurse Name: Марина Guevara RN Position: [facility] RN Member Role: Primary Care Nurse Name: Lyn Helms RN Position: [facility] RN Member Role: Primary Care Nurse Name: Tatum Biswas RN Position: [facility] RN Member Role: Primary Care Nurse Name: Janneth Lerner RN Position: [facility] RN Member Role: Primary Care Nurse Name: Hugo Bateman RN Position: [facility] ED RN W/OE and Tasks Member Role: Primary Care Nurse Name: Petros Levy RN Position: [facility] RN Member Role: Primary Care Nurse Name: Izabella Braun RN Position: [facility] RN Member Role: Primary Care Nurse Name: Lyndsay King RN Position: [facility] RN Member Role: Primary Care Nurse Name: Felicia Kerr RN Position: [facility] RN Member Role: Primary Care Nurse Name: Hafsa Goyal RN Position: [facility] RN Member Role: Primary Care Nurse Name: Rosalio Jack RN Position: [facility] RN Member Role: Primary Care Nurse Name: Geovanna Hill RN Position: [facility] RN Member Role: Primary Care Nurse Name: Mik RNCarmela Position: [facility] SN RN Member Role: Primary Care Nurse Name: Michael Dickson RN Position: [facility] RN Member Role: Primary Care Nurse Name: Jessica Lema RN Position: [facility] RN Member Role: Primary Care Nurse Name: Phu Flynn MD Position: [facility] Renal MD Member Role: Lifetime Consulting Physician Address: Address: [address] [place] [address] [facility] [address] Name: Jesusita Lou RN Position: [facility] OB RN Member Role: Primary Care Nurse Name: Karen Quach RN Position: [facility] PCO w/OE and EZ Script Member Role: Primary Care Nurse Name: Marshall Byrd RN Position: [facility] RN Member Role: Primary Care Nurse Care Team Related Persons Name: DUTCH MAR Address: [place] [address] Name: ALL AYERS Address: [address] [place] [address] Name: ALL MANZANARES Address: [address] [place] [address] Name: CHRISTEN GRIMALDO Address: [address] [place] [address]
--- OUTSIDE RECORDS SUMMARY | 2023-11-18 12:33 | XMS_ITS | Continuity of Care Document ---
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 Role Phone Radha ODONNELL, Hannah Primary Care Physician Encounter [facility] Date(s): 11/30/22 - 12/30/22 [facility] [address] [place] [id number]- Allergies, Adverse Reactions, Alerts Substance Reaction Severity [...] 09/30/22 8:51:00 EDT, Route to Pharmacy Electronically, [facility], 183, cm, 03/16/22 8:31:00 EDT, Height, 71.3, kg, 08/08/21 0:23:00 EDT, Dry Weight Start Date: 09/30/22 Status: Ordered amLODIPine 5 mg oral tablet 1 tablet, By Mouth, Daily, # 28 tablet, 5 Refills, Maintenance, 11/25/22 16:21:00 EDT, [facility], 183, cm, 10/08/22 16:18:00 EDT, Height, 71.3, kg, 08/08/21 0:23:00 EDT, Dry Weight Start Date: 11/25/22 Status: Ordered atorvastatin 40 mg oral tablet 1 tablet, By Mouth, Daily, # 28 tablet, 5 Refills, Maintenance, 07/08/22 11:30:00 EST, [facility], 183, cm, 03/16/22 8:31:00 EDT, Height, 71.3, kg, 08/08/21 0:23:00 EDT, Dry Weight Start Date: 07/08/22 Status: Ordered buPROPion 150 mg/24 hours (XL) oral tablet, extended release 1 tablet, By Mouth, Daily, # 28 tablet, 5 Refills, Maintenance, 09/03/22 20:57:00 EDT, [facility], 28, TAKE 1 TABLET BY MOUTH EVERY DAY, 183, cm, 03/16/22 8:31:00 EDT, Height, 71.3, kg, :23:00 EDT, Dry Weight Start Date: 09/03/22 Status: Ordered carvedilol 12.5 mg oral tablet 1, tablet, By Mouth, 2 times a day, # 56 tablet, Refills 5, Maintenance, 11/25/22 16:22:00 EDT, Route to Pharmacy Electronically, [facility], 183, cm, 10/08/22 16:18:00 EDT, Height, 71.3, kg, 08/08/21 0:23:00 EDT, Dry Weight Start Date: 11/25/22 Status: Ordered clopidogrel 75 mg oral tablet 1, tablet, By Mouth, Daily, # 28 tablet, Refills 6, Maintenance, 09/06/22 10:04:00 EDT, Route to Pharmacy Electronically, [facility], 183, cm, 03/16/22 8:31:00 EDT, Height, 71.3, [...] 6 Refills, Maintenance, 05/14/2216:30:00 EST, [facility], 183, cm, 03/16/22 8:31:00 EDT, Height, 71.3, kg, 08/08/21 0:23:00 EDT, Dry Weight Start Date: 05/14/22 Status: Ordered Eliquis 5 mg oral tablet 1 tablet, By Mouth, 2 times a day, # 56 tablet, 6 Refills, [facility], 183, cm, 08/12/21 14:20:00 EDT, Height, 71.3, kg, 08/08/21 0:23:00 EDT, Dry Weight Start Date: 09/26/21 Status: Ordered Eliquis 5 mg oral tablet See Instructions, TAKE 1 TABLET BY MOUTH TWICE A DAY, # 56 tablet, 6 Refills, Maintenance, 11/30/2314:39:00 EDT, [facility], 183, cm, 10/08/22 16:18:00 EDT, Height, 71.3, kg, 08/08/21 0:23:00 EDT, Dry Weight Start Date: 11/30/22 Status: Ordered furosemide 40 mg oral tablet 1, tablet, By Mouth, 2 times a day, # 56 tablet, Refills 2, Maintenance, 09/30/22 8:51:00 EDT, Route to Pharmacy Electronically, [facility], 183, cm, 03/16/22 8:31:00 EDT, Height, 71.3, kg, 08/08/21 0:23:00 EDT, Dry Weight Start Date: 09/30/22 Status: Ordered hydrALAZINE 50 mg oral tablet 1 tablet, By Mouth, 3 times a day, # 84 tablet, 2 Refills, Maintenance, 11/25/22 16:22:00 EDT, [facility], 183, cm, 10/08/22 16:18:00 EDT, Height, 71.3, kg, 08/08/21 0:23:00 EDT, Dry Weight Start Date: 11/25/22 Status: Ordered isosorbide mononitrate 60 mg oral tablet, extended release 1 tablet, By Mouth, Daily in AM, # 28 tablet, 2 Refills, Maintenance, 11/25/22 16:23:00 EDT, [facility], 183, cm, 10/08/22 16:18:00 EDT, Height, 71.3, kg, 08/08/21 0:23:00 EDT, Dry Weight Start Date: 11/25/22 Status: Ordered Mylanta Maximum Strength oral suspension 5 mL, By Mouth, 4 times a day, PRN for control of stomach acid, # 200 mL, 1 Refills, Maintenance, 08/12/21 13:46:00 EDT, Suspension, [facility]/pharmacy #[id number], Partial fill upon patient request if the prescription is for a schedule II opioid drug., 5 mL By M... Start Date: 08/12/21 Status: Ordered nitroglycerin 0.4 mg sublingual tablet 1 tablet = 0.4 mg, Sublingual, Every 5 minutes, PRN Chest Pain, # 25 tablet, 3 Refills, Maintenance, 08/24/19 15:40:00 EDT, [facility]/pharmacy #4471, 183, cm, 05/25/19 15:06:00 EST, Height, 88.3, kg, 08/31/17 3:30:00 EDT, Dry Weight Start Date: 08/24/19 Stop Date: 12/22/19 Status: Ordered oxyCODONE 30 mg oral tablet 2 tablet = 60 mg, By Mouth, Every 3 hours, 5PMP checked. fill on 01/03/23, # 224 tablet, 0 Refills, Maintenance, 12/18/22 8:39:00 EDT, [facility]/pharmacy #4471, may partial fill upon request; fill [...] Start Date: 11/30/22 Status: Ordered Potassium Chloride (Bbq-Kpnl-Fvc 10) 10 mEq oral tablet, extended release See Instructions, TAKE 2 TABLETS BY MOUTH EVERY MORNING AND TAKE 1 TABLET EVERY EVENING, # 84 tablet, 2 Refills, Maintenance, 11/30/22 15:38:00 EDT, [facility], 183, cm, 10/08/22 16:18:00 EDT, Height, 71.3, kg, 08/08/21 0:23:00 EDT, Dry Weight Start Date: 11/30/22 Status: Ordered Potassium Chloride (Hns-Ismp-Cbr 10) 10 mEq oral tablet, extended release See Instructions, TAKE 2 TABLETS BY MOUTH EVERY MORNING AND TAKE 1 TABLET EVERY EVENING, # 84 tablet, 2 Refills, Maintenance, 09/06/22 10:04:00 EDT, [facility], 183, cm, 03/16/22 8:31:00 EDT, Height, 71.3, kg, 08/08/21 0:23:00 EDT, Dry Weight Start Date: 09/06/22 Status: Ordered sertraline 100 mg oral tablet 1 tablet, By Mouth, Daily, # 28 tablet, 5 Refills, Maintenance, 06/09/22 8:26:00 EST, [facility], 183, cm, 03/16/22 8:31:00 EDT, Height, 71.3, kg, 08/08/21 0:23:00 EDT, Dry Weight Start Date: 06/09/22 Status: Ordered sertraline 100 mg oral tablet See Instructions, TAKE 1 TABLET BY MOUTH EVERY DAY, # 28 tablet, 5 Refills, Maintenance, 11/30/22 15:39:00 EDT, [facility], 183, cm, 10/08/22 16:18:00 EDT, Height, 71.3, kg, 08/08/21 0:23:00 EDT, Dry Weight Start Date: 11/30/22 Status: Ordered spironolactone 25 mg oral tablet 1, tablet, By Mouth, Daily, # 28 tablet, Refills 4, Maintenance, 07/08/22 11:30:00 EST, Route to Pharmacy Electronically, [facility], 183, cm, 03/16/22 8:31:00 EDT, Height, 71.3, kg, 08/08/21 0:23:00 EDT, Dry Weight Start Date: 07/08/22 Status: Ordered spironolactone 25 mg oral tablet See Instructions, TAKE 1 TABLET BY MOUTH EVERY DAY, # 28 tablet, Refills 4, Maintenance, 11/30/22 15:38:00 EDT, Instructions Replace Required Details, Route to Pharmacy Electronically, [facility], 183, cm, 10/08/22 16:18:00 EDT, Height, 71.3, kg,... Start Date: 11/30/22 Status: Ordered sucralfate 1 gm oral tablet 1, tablet, By Mouth, 3 times a day before meals, AND BEDTIME., # 112 tablet, Refills 2, Maintenance, 10/29/22 0:27:00 EDT, Route to Pharmacy Electronically, [facility], 183, cm, 10/08/22 16:18:00 EDT, Height, 71.3, kg, 08/08/21 0:23:00 EDT, Dry W... Start Date: 10/29/22 Status: Ordered Vitamin B-12 1000 mcg oral tablet See Instructions, TAKE 1 TABLET BY MOUTH EVERY DAY, # 28 tablet, Refills 5, Maintenance, 05/14/22 16:30:00 EST, Instructions Replace Required Details, Route to Pharmacy Electronically, [facility], 183, cm, 03/16/22 8:31:00 EDT, Height, 71.3, kg,... Start Date: 05/14/22 Status: Ordered Vitamin B-12 1000 mcg oral tablet 1, tablet, By Mouth, Daily, # 28 tablet, Refills 5, Route to Pharmacy Electronically, [facility], 183, cm, 08/12/21 14:20:00 EDT, Height, 71.3, kg, 08/08/21 0:23:00 EDT, Dry Weight Start Date: 09/26/21 Status: Ordered Vitamin B-12 1000 mcg oral tablet See Instructions, TAKE 1 TABLET BY MOUTH EVERY DAY, # 28 tablet, Refills 0, Maintenance, 11/30/22 15:39:00 EDT, Instructions Replace Required Details, Route to Pharmacy Electronically, [facility], 183, cm, 10/08/22 16:18:00 EDT, Height, 71.3, [...] artery disease by Rolando Rubin M.D. at [facility]. 4In the past; states this has resolved Social History Social History Type Response Smoking Status Never smoker entered on: 08/24/16 Sex Patient Care team information Care Team Personnel Name: Irish Samuel RN Position: S RN Member Role: Primary Care Nurse Name: Mireya Ramsey Position: S RN Supv Member Role: Primary Care Nurse Name: Rhea Betancur RN Position: [facility] RN Member Role: Primary Care Nurse Name: Hugo Ayala RN Position: S RN Member Role: Primary Care Nurse Name: Lorna Faust RN Position: S RN Member Role: Primary Care Nurse Name: David Gonzalez MD Position: [facility] Renal MD Member Role: Lifetime Consulting Physician Address: Address: [address], [address] [facility] [address]- [place] Name: Hannah Garcia NP Position: [facility] PCO Associate Professional Member Role: PCP Address: Address: [address] [facility] [place] [address]- [place] Name: Eduin Arias MD Position: [facility] Renal MD Member Role: Lifetime Consulting Physician Address: Address: [address], [address] [place] [address]- [place] Name: Ana Herrera RN Position: [facility] AMB Nurse Member Role: Primary Care Nurse Name: Cadence Quach RN Position: [facility] OB RN Member Role: Primary Care Nurse Name: Maggy Tsang RN Position: [facility] RN Member Role: Primary Care Nurse Name: Keyla Keys RN Position: [facility] SN RN Member Role: Primary Care Nurse Name: Марина Guevara RN Position: [facility] RN Member Role: Primary Care Nurse Name: Lyn Helms RN Position: [facility] RN Member Role: Primary Care Nurse Name: Tatum Biswas RN Position: [facility] RN Member Role: Primary Care Nurse Name: Hugo Bateman RN Position: [facility] RN Member Role: Primary Care Nurse Name: Petros Levy RN Position: [facility] RN Member Role: Primary Care Nurse Name: Charly Burns RN Position: [facility] RN Member Role: Primary Care Nurse Name: Izabella Braun RN Position: [facility] RN Member Role: Primary Care Nurse Name: Lyndsay King RN Position: [facility] RN Member Role: Primary Care Nurse Name: Felicia Kerr RN Position: [facility] RN Member Role: Primary Care Nurse Name: Hafsa Goyal RN Position: [facility] RN Member Role: Primary Care Nurse Name: Rosalio Jack RN Position: [facility] RN Member Role: Primary Care Nurse Name: Carmela Houser RN Position: [facility] SN RN Member Role: Primary Care Nurse Name: Michael Dickson RN Position: [facility] RN Member Role: Primary Care Nurse Name: Jessica Lema RN Position: [facility] RN Member Role: Primary Care Nurse Name: Phu Flynn MD Position: [facility] Renal MD Member Role: Lifetime Consulting Physician Address: Address: [address] [place] [address] [facility] [address] Name: Yesica Serna RN Position: [facility] OB RN Member Role: Primary Care Nurse Name: Jesusita Lou RN Position: [facility] OB RN Member Role: Primary Care Nurse Name: Karen Quach RN Position: [facility] PCO w/OE and EZ Script Member Role: Primary Care Nurse Name: Marshall Byrd RN Position: [facility] RN Member Role: Primary Care Nurse Care Team Related Persons Name: DUTCH MAR Address: [place] [address] Name: ALL AYERS Address: [address] [place] [address] Name: ALL MANZANARES Address: [address] [place] [address] Name: CHRISTEN GRIMALDO Address: [address] [place] [address]
--- OUTSIDE RECORDS SUMMARY | 2023-11-18 12:33 | XMS_ITS | Continuity of Care Document ---
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 Start Date: 12/24/19 Status: Ordered amLODIPine 5 mg oral tablet See Instructions, # 28 tablet, Refills 2 Tot. Refills 2, TAKE 1 TABLET BY MOUTH EVERY DAY, [facility]/pharmacy #[id number] Start Date: 03/26/19 Status: Ordered amLODIPine 5 mg oral tablet 5 mg, 1, tablet, By Mouth, Daily, # 30 tablet, Refills 5, Tot. Refills 5, Maintenance, 11/26/19 14:40:00 EDT, Route to Pharmacy Electronically, [facility]/pharmacy #[id number], 183, cm, 11/05/19 9:35:00 EDT, Height, Dry Weight Start Date: 11/26/19 Stop Date: 05/24/20 Status: Ordered atorvastatin 40 mg oral tablet See Instructions, TAKE 1 TABLET BY MOUTH EVERY DAY, # 28 tablet, 5 Refills, Soft Stop, 08/13/19 11:46:00 EDT, [facility]/pharmacy #[id number], 183, cm, 05/25/19 15:06:00 EST, Height, 88.3, kg, 08/31/17 3:30:00 EDT, Dry Weight Start Date: 08/13/19 Status: Ordered buPROPion 150 mg/24 hours (XL) oral tablet, extended release 1 tablet = 150 mg, By Mouth, Every 24 hours, # 30 tablet, 5 Refills, Maintenance, 10/26/19 13:15:00EDT, ER Tablet, [facility]/pharmacy #[id number], 1 tablet By Mouth Every 24 hours, 183, cm, 05/25/19 15:06:00 EST, Height, Dry Weight Start Date: 10/26/19 Status: Ordered buPROPion 150 mg/24 hours (XL) oral tablet, extended release 1 tablet = 150 mg, By Mouth, Every 24 hours, # 30 tablet, 5 Refills, Maintenance, 05/20/19 10:41:00EST, ER Tablet, [facility]/pharmacy #[id number], Bubble pack and delivery, 1 tablet By Mouth Every 24 hours, 183, cm, 01/23/19 14:41:00 EDT, Height, 88.3, kg, 08/31... Start Date: 05/20/19 Status: Ordered carvedilol 12.5 mg oral tablet 12.5 mg, 1, tablet, By Mouth, 2 times a day, # 60 tablet, Refills 5, Tot. Refills 5, Soft Stop, 10/26/19 11:37:00 EDT, Route to Pharmacy Electronically, [facility]/pharmacy #[id number], 183, cm, 05/25/19 15:06:00EST, Height Start [...] TAKE 1 TABLET BY MOUTH EVERY DAY, [id number] Start Date: 03/20/19 Status: Ordered docusate sodium 100 mg oral capsule 100 mg, 1, capsule, By Mouth, 3 times a day, Bubble Pack and Delivery, # 90 capsule, Refills 5, Tot. Refills 5, Maintenance, 11/22/17 13:28:22 EDT, Route to Pharmacy Electronically, [id number], [id number] Start Date: 11/22/17 Stop Date: 05/21/18 Status: Ordered Eliquis 5 mg oral tablet 1 tablet = 5 mg, By Mouth, 2 times a day, # 60 tablet, 5 Refills, Maintenance, 05/21/19 10:06:00 EST, Tablet, [id number] 183, cm, 01/23/19 14:41:00 EDT, Height, 88.3, kg, 08/31/17 3:30:00 EDT, Dry Weight Start Date: 05/21/19 Status: Ordered Eliquis 5 mg oral tablet 1 tablet = 5 mg, By Mouth, 2 times a day, # 60 tablet, 3 Refills, Soft Stop, 10/26/19 13:50:00 EDT[id number] 183, cm, 05/25/19 15:06:00 EST, Height Start Date: 10/26/19 Stop Date: 02/23/20 Status: Ordered furosemide 40 mg oral tablet 40 mg, 1, tablet, By Mouth, Daily, # 30 tablet, Refills 5, Tot. Refills 5, Maintenance, 10/26/19 13:16:00 EDT, [facility] Electronically, [id number] 183, cm, 05/25/19 15:06:00 EST, Height, Dry Weight Start Date: 10/26/19 Status: Ordered furosemide 40 mg oral tablet 40 mg, 1, tablet, By Mouth, 2 times a day, # 60 tablet, Refills 1, Tot. Refills 1, Soft Stop, 10/26/19 13:50:00 EDT, [id number] previous script. Pt is on 2 tabs daily, 183, cm, 05/25/19 15:06:00... Start Date: 10/26/19 Stop Date: 12/25/19 Status: Ordered hydrALAZINE 25 mg oral tablet 25 mg, 1, tablet, By Mouth, 2 times a day, # 60 tablet, Refills 5, Tot. Refills 5, Maintenance, 06/18/19 14:34:00 EST, Route to Pharmacy Electronically, [facility]/pharmacy #[id number], 183, cm, 05/25/19 15:06:00EST, Height, 88.3, kg, 08/31/17 3:30:00 EDT, Dry We... Start Date: 06/18/19 Stop Date: 12/15/19 Status: Ordered hydrALAZINE 50 mg oral tablet 1 tablet = 50 mg, By Mouth, 3 times a day, dose change, # 90 tablet, 1 Refills, Maintenance, 09/10/19 10:37:00 EDT, Tablet, [facility]/pharmacy #[id number], 183, cm, 05/25/19 15:06:00 EST, Height Start Date: 09/10/19 Stop Date: 11/09/19 Status: Ordered isosorbide mononitrate 60 mg oral tablet, extended release 60 mg, 1, tablet, By Mouth, Daily in AM, # 30 tablet, Refills 5, Tot. Refills 5, Soft Stop, 09/11/19 14:15:00 EDT, Route to Pharmacy Electronically, [facility]/pharmacy #[id number], 183, cm, 05/25/19 15:06:00 EST, Height, Dry Weight Start Date: 09/11/19 Stop Date: 03/09/20 Status: Ordered NIFEdipine 30 mg oral tablet, extended release 30 mg, 1, tablet, By Mouth, Daily, Bubble Pack and Delivery, # 30 tablet, Refills 3, Tot. Refills 3, Maintenance, 03/27/18 8:38:30 EST, Route to Pharmacy Electronically, [id number], [facility]/pharmacy #[id number] Start Date: 03/27/18 Status: Ordered nitroglycerin 0.4 mg sublingual tablet 1 tablet = 0.4 mg, Sublingual, Every 5 minutes, PRN Chest Pain, # 25 tablet, 3 Refills, Maintenance, 08/24/19 15:40:00 EDT, [facility]/pharmacy #[id number], 183, cm, 05/25/19 15:06:00 EST, Height, 88.3, kg, 08/31/17 3:30:00 EDT, Dry Weight Start Date: 08/24/19 Stop Date: 12/22/19 Status: Ordered oxyCODONE 30 mg oral tablet 2 tablet = 60 mg, By Mouth, Every 3 hours, TILER checked, # 224 tablet, 0 Refills, Acute 05/15/20 14:03:00 EST, 12/25/19 14:39:00 EDT, [facility]/pharmacy #[id number], may partial fill upon request;, 12/28/19, 183,cm, 11/05/19 9:35:00 EDT, Height, Dry Weight Start Date: 12/25/19 Stop Date: 05/15/20 Status: Ordered pantoprazole 40 mg oral delayed release tablet See Instructions, # 28 tablet, Refills 2 Tot. Refills 2, TAKE 1 TABLET BY MOUTH EVERY DAY, [facility]/pharmacy #[id number] Start Date: 02/26/19 Status: [...] 01/29/19 17:07:02 EDT, Route to Pharmacy Electronically, [id number], [facility]/pharmacy #[id number], Bubble pack and Delivery Start Date: 01/29/19 Stop Date: 07/28/19 Status: Ordered potassium chloride 10 mEq oral tablet, extended release 1 tablet = 10 mEq, By Mouth, 2 times a day, # 60 tablet, 2 Refills, Maintenance, 10/26/19 13:50:00 EDT, ER Tablet, [facility]/pharmacy #[id number], 183, cm, 05/25/19 15:06:00 EST, Height Start Date: 10/26/19 Stop Date: 01/24/20 Status: Ordered sertraline 100 mg oral tablet 1 tablet = 100 mg, By Mouth, Daily, # 30 tablet, 6 Refills, Maintenance, 07/16/19 14:54:00 EST, Tablet, [facility]/pharmacy #[id number], 183, cm, 05/25/19 15:06:00 [...] TAKE 1 TABLET BY MOUTH EVERY DAY, [facility]/pharmacy #[id number] Start Date: 03/26/19 Status: Ordered spironolactone 25 mg oral tablet 25 mg, 1, tablet, By Mouth, Daily, # 30 tablet, Refills 1, Tot. Refills 1, Maintenance, 05/21/19 10:07:00 EST, Route to Pharmacy Electronically, [facility]/pharmacy #[id number], 183, cm, 01/23/19 14:41:00 EDT, Height, 88.3, kg, 08/31/17 3:30:00 EDT, Dry Weight Start Date: 05/21/19 Status: Ordered spironolactone 25 mg oral tablet 25 mg, 1, tablet, By Mouth, Daily, # 30 tablet, Refills 1, Tot. Refills 1, Maintenance, 11/26/19 14:50:00 EDT, Route to Pharmacy Electronically, [facility]/pharmacy #[id number], 183, cm, 11/05/19 9:35:00 EDT, Height, Dry Weight Start Date: 11/26/19 Stop Date: 01/25/20 Status: Ordered sucralfate 1 gm oral tablet 1 Gm, 1, tablet, By Mouth, 3 times a day before meals and bedtime, # 120 tablet, Refills 2, Tot. Refills 2, Soft Stop, 06/18/19 9:36:00 EST, Route to Pharmacy Electronically, [facility]/pharmacy #[id number], 183,cm, 05/25/19 15:06:00 EST, Height, 88.3, kg, 08/31/... Start Date: 06/18/19 Stop Date: 09/16/19 Status: Ordered sucralfate 1 gm oral tablet 1 Gm, 1, tablet, By Mouth, 3 times a day before meals and bedtime, # 120 tablet, Refills 2, Tot. Refills 2, Maintenance, 11/26/19 8:36:00 EDT, Route to Pharmacy Electronically, [facility]/pharmacy #[id number], 183, cm, 11/05/19 9:35:00 EDT, Height, Dry Weight Start Date: 11/26/19 Status: Ordered Vitamin B-12 1000 mcg oral tablet See Instructions, # 28 tablet, Refills 1 Tot. Refills 1, TAKE 1 TABLET BY MOUTH EVERY DAY, [facility]/pharmacy #[id number] Start Date: 03/26/19 Status: Ordered Vitamin B12 1000 mcg oral tablet 1 tablet = 1,000 mcg, By Mouth, Daily, # 30 tablet, 5 Refills, Maintenance, 12/24/19 13:07:00 EDT, Tablet, [facility]/pharmacy #[id number], 183, cm, 11/05/19 9:35:00 [...] artery disease by Rolando Rubin M.D. at [facility]. 5In the past; states this has resolved Social History Social History Type Response Smoking Status Never smoker entered on: 08/24/16 Sex
--- OUTSIDE RECORDS SUMMARY | 2023-11-18 12:33 | XMS_ITS | Continuity of Care Document ---
Author Organization [facility] Adult Address [address] [place] [phone]- Care Team Providers Care Glue Jointer Feeder Name Role Phone Radha ODONNELL, Hannah Primary Care Physician Encounter [facility] [place] Date(s): 12/29/20 - 01/28/21 [facility] Adult [address] [place] [id number]- Allergies, Adverse Reactions, Alerts Substance Reaction Severity [...] 30 tablet, Refills 2, Tot. Refills 2, Maintenance, 11/03/20 16:41:00 EDT, Route to Pharmacy Electronically, [facility]/pharmacy #[id number], 183, cm, 08/05/20 8:57:00 EDT, Height Start Date: 11/03/20 Status: Ordered amLODIPine 5 mg oral tablet 1 tablet, By Mouth, Daily, # 30 tablet, 5 Refills, Maintenance, 10/22/20 16:57:00 EDT, [facility], 183, cm, 08/05/20 8:57:00 EDT, Height Start Date: 10/22/20 Status: Ordered atorvastatin 40 mg oral tablet 1 tablet, By Mouth, Daily, # 28 tablet, 5 Refills, Maintenance, 11/19/20 20:20:00 EDT, [facility]/pharmacy#[id number], 183, cm, 08/05/20 8:57:00 EDT, Height Start Date: 11/19/20 Status: Ordered buPROPion 150 mg/24 hours (XL) oral tablet, extended release 1 tablet, By Mouth, Every 24 hours, # 28 tablet, 2 Refills, Maintenance, 11/19/20 20:22:00 EDT, [facility]/pharmacy #[id number], 28, Office visit needed for further refills., 1 tablet By Mouth Every 24 hours, 183, cm, 08/05/20 8:57:00 EDT, Height Start Date: 11/19/20 Status: Ordered carvedilol 12.5 mg oral tablet 1, tablet, By Mouth, 2 times a day, # 56 tablet, Refills 2, Tot. Refills 2, Maintenance, 11/19/20 20:24:00 EDT, Route to Pharmacy Electronically, [facility]/pharmacy #[id number], Labs and office visit needed for further refills., 183, cm, 08/05/20 8:57:00 EDT, Height Start Date: 11/19/20 Status: Ordered clopidogrel 75 mg oral tablet 1, tablet, By Mouth, Daily, # 30 tablet, Refills 5, Tot. Refills 0, Maintenance, 11/04/20 9:43:00 EDT, Route to Pharmacy Electronically, [facility], 183, cm, 08/05/20 8:57:00 EDT, Height Start Date: 11/04/20 Status: Ordered [facility] B-12 1,000 MCG TABLET See Instructions, # 30 tablet, TAKE 1 TABLET BY MOUTH EVERY DAY, [facility]/pharmacy #[id number] Start Date: 03/20/19 Status: Ordered docusate sodium 100 mg oral capsule 100 mg, 1, capsule, By Mouth, 3 times a day, Bubble Pack and Delivery, # 90 capsule, Refills 5, Tot. Refills 5, Maintenance, 11/22/17 13:28:22 EDT, Route to Pharmacy Electronically, [id number], [facility]/pharmacy #[id number] Start Date: 11/22/17 Stop Date: 05/21/18 Status: Ordered Eliquis 5 mg oral tablet 1 tablet, By Mouth, 2 times a day, # 56 tablet, 6 Refills, [facility], 183, cm, 08/05/20 8:57:00 EDT, Height Start Date: 01/27/21 Status: Ordered furosemide 40 mg oral tablet 1, tablet, By Mouth, 2 times a day, X30 DAYS., # 56 tablet, Refills 2, Tot. Refills 2, Maintenance,11/19/20 20:26:00 EDT, Route to Pharmacy Electronically, [facility]/pharmacy #[id number], Labs and office visit needed for further refills., 183, cm, 08/05/20 8:57:... Start Date: 11/19/20 Status: Ordered hydrALAZINE 50 mg oral tablet 1 tablet = 50 mg, By Mouth, 3 times a day, dose change, # 90 tablet, 1 Refills, Maintenance, 09/10/19 10:37:00 EDT, Tablet, [facility]/pharmacy #[id number], 183, cm, 05/25/19 15:06:00 EST, Height Start Date: 09/10/19 Stop Date: 11/09/19 Status: Ordered isosorbide mononitrate 60 mg oral tablet, extended release 1 tablet, By Mouth, Daily in AM, # 28 tablet, 6 Refills, Maintenance, 10/22/20 16:57:00 EDT, [facility], 183, cm, 08/05/20 8:57:00 EDT, Height Start Date: 10/22/20 Status: Ordered NIFEdipine 30 mg oral tablet, extended release 30 mg, 1, tablet, By Mouth, Daily, Bubble Pack and Delivery, # 30 tablet, Refills 3, Tot. Refills 3, Maintenance, 03/27/18 8:38:30 EST, Route to Pharmacy Electronically, [id number], [facility]/pharmacy #[id number] Start Date: 03/27/18 Status: Ordered nitroglycerin 0.4 mg sublingual tablet 1 tablet = 0.4 mg, Sublingual, Every 5 minutes, PRN Chest Pain, # 25 tablet, 3 Refills, Maintenance, 08/24/19 15:40:00 EDT, [facility]/pharmacy #[id number], 183, cm, 05/25/19 15:06:00 EST, Height, 88.3, kg, 08/31/17 3:30:00 EDT, Dry Weight Start Date: 08/24/19 Stop Date: 12/22/19 Status: Ordered oxyCODONE 30 mg oral tablet 2 tablet = 60 mg, By Mouth, Every 3 hours, [employer]OKE [employer]TER checked, # 224 tablet, 0 Refills, Acute 05/15/21 13:13:00 EST, 01/26/21 17:37:00 EDT, [facility]/pharmacy #[id number], may partial fill upon request;, 01/27/21, 183,cm, 08/05/20 8:57:00 EDT, Height Start Date: 01/26/21 Stop Date: 05/15/21 Status: Ordered pantoprazole 40 mg oral delayed release tablet 1 tablet, By Mouth, Daily, # 28 tablet, 2 Refills, Maintenance, 11/20/20 10:42:00 EDT, 183, cm, 08/05/20 8:57:00 EDT, Height Start Date: 11/20/20 Status: Ordered Potassium Chloride (Qyw-Gnsn-Cwp 10) 10 mEq oral tablet, extended release See Instructions, TAKE 2 TABLETS BY MOUTH EVERY MORNING AND TAKE 1 TABLET EVERY EVENING, # 84 tablet, 2 Refills, Maintenance, [facility], 183, cm, 08/05/20 8:57:00 EDT, Height Start Date: 11/20/20 Status: Ordered sertraline 100 mg oral tablet 1 tablet, By Mouth, Daily, # 28 tablet, 5 Refills, Maintenance, 11/20/20 10:42:00 EDT, [facility], 183, cm, 08/05/20 8:57:00 EDT, Height Start Date: 11/20/20 Status: Ordered spironolactone 25 mg oral tablet 1, tablet, By Mouth, Daily, # 28 tablet, Refills 2, Tot. Refills 0, Maintenance, 11/20/20 10:42:00 EDT, Route to Pharmacy Electronically, [facility], 183, cm, 08/05/20 8:57:00 EDT, Height Start Date: 11/20/20 Status: Ordered sucralfate 1 gm oral tablet 1, tablet, By Mouth, 3 times a day before meals, AND BEDTIME., # 112 tablet, Refills 2, Route to Pharmacy Electronically, [facility], 183, cm, 08/05/20 8:57:00 EDT, Height Start Date: 01/27/21 Status: Ordered Vitamin B-12 1000 mcg oral tablet 1, tablet, By Mouth, Daily, # 28 tablet, Refills 2, Tot. Refills 0, Maintenance, 11/20/20 10:42:00 EDT, Route to Pharmacy Electronically, [facility], 183, cm, 08/05/20 8:57:00 EDT, Height Start Date: 11/20/20 Status: Ordered Problem List Condition Effective Dates [...] artery disease by Rolando Rubin M.D. at [facility]. 5In the past; states this has resolved Social History Social History Type Response Smoking Status Never smoker entered on: 08/24/16 Sex
--- OUTSIDE RECORDS SUMMARY | 2023-11-18 12:33 | XMS_ITS | Continuity of Care Document ---
Author Organization [facility] Adult Address [address] [place] [address]- Care Team Providers Care Chute Feeder Name Role Phone Radha SOFTWARE QUALITY ASSURANCE SPECIALIST, Hannah Primary Care Physician [place] [facility] [place](s): 03/17/21 - 04/16/21 [facility] [address] [place] [phone]- Allergies, Adverse Reactions, Alerts Substance Reaction Severity [...] tablet, Refills 2, Route to Pharmacy Electronically, [facility], 183, cm, 08/05/20 8:57:00 EDT, Height Start Date: 03/14/21 Status: Ordered amLODIPine 5 mg oral tablet 1 tablet, By Mouth, Daily, # 28 tablet, 5 Refills, [facility] 514[facility], 183, cm, 08/05/20 8:57:00 EDT, Height Start Date: 04/10/21 Status: Ordered atorvastatin 40 mg oral tablet 1 tablet, By Mouth, Daily, # 28 tablet, 5 Refills, Maintenance, 11/19/20 20:20:00 EDT, [facility]/pharmacy#[id number], 183, cm, 08/05/20 8:57:00 EDT, Height Start Date: 11/19/20 Status: Ordered buPROPion 150 mg/24 hours (XL) oral tablet, extended release 1 tablet, By Mouth, Every 24 hours, # 28 tablet, 2 Refills, [facility] 73095, 28, TAKE 1 TABLET BY MOUTH EVERY 24 HOURS, 183, cm, 08/05/20 8:57:00 EDT, Height Start Date: 03/10/21 Status: Ordered carvedilol 12.5 mg oral tablet 1, tablet, By Mouth, 2 times a day, # 56 tablet, Refills 2, Route to Pharmacy Electronically, [facility], 183, cm, 08/05/20 8:57:00 EDT, Height Start Date: 04/10/21 Status: Ordered clopidogrel 75 mg oral tablet 1, tablet, By Mouth, Daily, # 30 tablet, Refills 5, Tot. Refills 0, Maintenance, 11/04/20 9:43:00 EDT, Route to Pharmacy Electronically, [facility], 183, cm, 08/05/20 8:57:00 EDT, Height Start Date: 11/04/20 Status: Ordered docusate sodium 100 mg oral capsule 100 mg, 1, capsule, By Mouth, 3 times a day, Bubble Pack and Delivery, # 90 capsule, Refills 5, Tot. Refills 5, Maintenance, 11/22/17 13:28:22 EDT, Route to Pharmacy Electronically, [id number], [facility]/pharmacy #[id number] Start Date: 11/22/17 Stop Date: 05/21/18 Status: Ordered Eliquis 5 mg oral tablet 1 tablet, By Mouth, 2 times a day, # 56 tablet, 6 Refills, [facility] 64825, 183, cm, 08/05/20 8:57:00 EDT, Height Start Date: 01/27/21 Status: Ordered furosemide 40 mg oral tablet 1, tablet, By Mouth, 2 times a day, # 56 tablet, Refills 2, Route to Pharmacy Electronically, [facility], 183, cm, 08/05/20 8:57:00 EDT, Height Start Date: 03/10/21 Status: Ordered hydrALAZINE 50 mg oral tablet 1 tablet = 50 mg, By Mouth, 3 times a day, dose change, # 90 tablet, 1 Refills, Maintenance, 09/10/19 10:37:00 EDT, Tablet, [facility]/pharmacy #[id number], 183, cm, 05/25/19 15:06:00 EST, Height Start Date: 09/10/19 Stop Date: 11/09/19 Status: Ordered isosorbide mononitrate 60 mg oral tablet, extended release 1 tablet, By Mouth, Daily in AM, # 28 tablet, 6 Refills, Maintenance, 10/22/20 16:57:00 EDT, [facility] 27887, 183, cm, 08/05/20 8:57:00 EDT, Height Start Date: 10/22/20 Status: Ordered NIFEdipine 30 mg oral tablet, extended release 30 mg, 1, tablet, By Mouth, Daily, Bubble Pack and Delivery, # 30 tablet, Refills 3, Tot. Refills 3, Maintenance, 03/27/18 8:38:30 EST, Route to Pharmacy Electronically, [id number], [facility]/pharmacy #[id number] Start Date: 03/27/18 Status: Ordered nitroglycerin 0.4 mg sublingual tablet 1 tablet = 0.4 mg, Sublingual, Every 5 minutes, PRN Chest Pain, # 25 tablet, 3 Refills, Maintenance, 08/24/19 15:40:00 EDT, [facility]/pharmacy #[id number], 183, cm, 05/25/19 15:06:00 EST, Height, 88.3, kg, 08/31/17 3:30:00 EDT, Dry Weight Start Date: 08/24/19 Stop Date: 12/22/19 Status: Ordered oxyCODONE 30 mg oral tablet 2 tablet = 60 mg, By Mouth, Every 3 hours, [employer] checked fill on 04/06/21, # 224 tablet, 0 Refills, Acute 05/15/21 8:57:00 EST, 04/03/21 12:51:00 EST, [facility]/pharmacy #[id number], may partial fill upon request;, 04/06/21, 183, cm, 08/05/20 8:57:00 EDT, Height Start Date: 04/03/21 Stop Date: 05/15/21 Status: Ordered pantoprazole 40 mg oral delayed release tablet 1 tablet, By Mouth, Daily, # 28 tablet, 2 Refills, 183, cm, 08/05/20 8:57:00 EDT, Height Start Date: 04/13/21 Status: Ordered Potassium Chloride (Ehc-Ghpc-Hut 10) 10 mEq oral tablet, extended release See Instructions, TAKE 2 TABLETS BY MOUTH EVERY MORNING AND TAKE 1 TABLET EVERY EVENING, # 84 tablet, 2 Refills, [facility], 183, cm, 08/05/20 8:57:00 EDT, Height Start Date: 04/10/21 Status: Ordered sertraline 100 mg oral tablet 1 tablet, By Mouth, Daily, # 28 tablet, 5 Refills, Maintenance, 11/20/20 10:42:00 EDT, [facility], 183, cm, 08/05/20 8:57:00 EDT, Height Start Date: 11/20/20 Status: Ordered spironolactone 25 mg oral tablet 1, tablet, By Mouth, Daily, # 28 tablet, Refills 2, Route to Pharmacy Electronically, [facility], 183, cm, 08/05/20 8:57:00 EDT, Height Start Date: 04/10/21 Status: Ordered sucralfate 1 gm oral tablet 1, tablet, By Mouth, 3 times a day before meals, AND BEDTIME., # 112 tablet, Refills 2, Route to Pharmacy Electronically, [facility], 183, cm, 08/05/20 8:57:00 EDT, Height Start Date: 01/27/21 Status: Ordered Vitamin B-12 1000 mcg oral tablet 1, tablet, By Mouth, Daily, # 28 tablet, Refills 5, Route to Pharmacy Electronically, [facility], 183, cm, 08/05/20 8:57:00 EDT, Height Start Date: 03/10/21 Status: Ordered Problem List Condition Effective Dates Status Health Status Inform ant Aortic aneurysm of unspecifi ed site without mention of rupture(Confirmed) 1 Active Aneurysm of artery(Confirmed) 2 Active Atrial fibrillation(Confirmed) Active CVA (cerebral infarction)(Confirmed) [...] artery disease by Rolando Rubin M.D. at [facility]. 5In the past; states this has resolved Social History Social History Type Response Smoking Status Never smoker entered on: 08/24/16 Sex
--- OUTSIDE RECORDS SUMMARY | 2023-11-18 12:33 | XMS_ITS | Continuity of Care Document ---
Author Organization [facility] Adult Address [address] [place] [address]- Care Team Providers Care Driver Retraining Instructor Name Role Phone Radha ODONNELL, Hannah Primary Care Physician [place] [facility] [place](s): 11/05/19 - 11/12/19 [facility] Adult [address] [place] [phone]- [facility] Attending Physician: Not on Staff, Attending MD Allergies, Adverse Reactions, Alerts Substance Reaction [...] Required Details, Route to Pharmacy Electronically, [facility]/pharmacy #[id number], 183, cm, 05/25/19 15:06:0... Start Date: 10/01/19 Status: Ordered amLODIPine 5 mg oral tablet See Instructions, # 28 tablet, Refills 2 Tot. Refills 2, TAKE 1 TABLET BY MOUTH EVERY DAY, [facility]/pharmacy #[id number] Start Date: 03/26/19 Status: Ordered amLODIPine 5 mg oral tablet 5 mg, 1, tablet, By Mouth, Daily, # 30 tablet, Refills 5, Tot. Refills 5, Maintenance, 06/18/19 14:33:00 EST, [facility], [id number], 183, cm, 05/25/19 15:06:00 EST, Height, 88.3, kg, 08/31/17 3:30:00 EDT, Dry Weight Start Date: 06/18/19 Stop Date: 12/15/19 Status: Ordered atorvastatin 40 mg oral tablet See Instructions, TAKE 1 TABLET BY MOUTH EVERY DAY, # 28 tablet, 5 Refills, Soft Stop, 08/13/19 11:46:00 EDT, [facility]/pharmacy #[id number], 183, cm, 05/25/19 15:06:00 EST, Height, 88.3, kg, 08/31/17 3:30:00 EDT, Dry Weight Start Date: 08/13/19 Status: Ordered buPROPion 150 mg/24 hours (XL) oral tablet, extended release 1 tablet = 150 mg, By Mouth, Every 24 hours, # 30 tablet, 5 Refills, Maintenance, 10/26/19 13:15:00EDT, ER Tablet, [id number], 1 tablet By Mouth Every 24 hours, 183, cm, 05/25/19 15:06:00 EST, Height, Dry Weight Start Date: 10/26/19 Status: Ordered buPROPion 150 mg/24 hours (XL) oral tablet, extended release 1 tablet = 150 mg, By Mouth, Every 24 hours, # 30 tablet, 5 Refills, Maintenance, 05/20/19 10:41:00EST, ER Tablet, [facility]/pharmacy #[id number], Bubble pack and delivery, 1 tablet By Mouth Every 24 hours, 183, cm, 01/23/19 14:41:00 EDT, Height, 88.3, kg, 08/31... Start Date: 05/20/19 Status: Ordered carvedilol 12.5 mg oral tablet 12.5 mg, 1, tablet, By Mouth, 2 times a day, # 60 tablet, Refills 5, Tot. Refills 5, Soft Stop, 10/26/19 11:37:00 EDT, Route to Pharmacy Electronically, [facility]/pharmacy #[id number], 183, cm, 05/25/19 15:06:00EST, Height Start Date: 10/26/19 Status: Ordered clopidogrel 75 mg oral tablet 75 mg, 1, tablet, By Mouth, Daily, # 30 tablet, Refills 5, Tot. Refills 5, Maintenance, 07/16/19 14:53:00 EST, Route to Pharmacy Electronically, [facility]/pharmacy #[id number], 183, cm, 05/25/19 15:06:00 EST, Height, 88.3, kg, 08/31/17 3:30:00 EDT, Dry Weight Start Date: 07/16/19 Status: Ordered [facility] B-12 1,000 MCG TABLET See Instructions, # 30 tablet, TAKE 1 TABLET BY MOUTH EVERY DAY, [id number] Start Date: 03/20/19 Status: Ordered docusate sodium 100 mg oral capsule 100 mg, 1, capsule, By Mouth, 3 times a day, Bubble Pack and Delivery, # 90 capsule, Refills 5, Tot. Refills 5, Maintenance, 11/22/17 13:28:22 EDT, Route to Pharmacy Electronically, [id number], [facility]/pharmacy #[id number] Start Date: 11/22/17 Stop Date: 05/21/18 Status: Ordered Eliquis 5 mg oral tablet 1 tablet = 5 mg, By Mouth, 2 times a day, # 60 tablet, 5 Refills, Maintenance, 05/21/19 10:06:00 EST, Tablet, [facility]/pharmacy #[id number], 183, cm, 01/23/19 14:41:00 EDT, Height, 88.3, kg, 08/31/17 3:30:00 EDT, Dry Weight Start Date: 05/21/19 Status: Ordered Eliquis 5 mg oral tablet 1 tablet = 5 mg, By Mouth, 2 times a day, # 60 tablet, 3 Refills, Soft Stop, 10/26/19 13:50:00 EDT,[facility]/pharm[facility] #[id number], 183, cm, 05/25/19 15:06:00 EST, Height Start Date: 10/26/19 Stop Date: 02/23/20 Status: Ordered furosemide 40 mg oral tablet 40 mg, 1, tablet, By Mouth, Daily, # 30 tablet, Refills 5, Tot. Refills 5, Maintenance, 10/26/19 13:16:00 EDT, Route to Pharmacy Electronically, [facility]/pharmacy #[id number], 183, cm, 05/25/19 15:06:00 EST, Height, Dry Weight Start Date: 10/26/19 Status: Ordered furosemide 40 mg oral tablet 40 mg, 1, tablet, By Mouth, 2 times a day, # 60 tablet, Refills 1, Tot. Refills 1, Soft Stop, 10/26/19 13:50:00 EDT, Route to Pharmacy Electronically, [id number], this replaces previous script. Pt is on 2 tabs daily, 183, cm, 05/25/19 15:06:00... Start Date: 10/26/19 Stop Date: 12/25/19 Status: Ordered hydrALAZINE 25 mg oral tablet 25 mg, 1, tablet, By Mouth, 2 times a day, # 60 tablet, Refills 5, Tot. Refills 5, Maintenance, 06/18/19 14:34:00 EST, Route to Pharmacy Electronically, [id number], 183, cm, 05/25/19 15:06:00EST, Height, 88.3, kg, 08/31/17 3:30:00 EDT, Dry We... Start Date: 06/18/19 Stop Date: 12/15/19 Status: Ordered hydrALAZINE 50 mg oral tablet 1 tablet = 50 mg, By Mouth, 3 times a day, dose change, # 90 tablet, 1 Refills, Maintenance, 09/10/19 10:37:00 EDT, Tablet, [id number], 183, cm, 05/25/19 15:06:00 EST, Height Start Date: 09/10/19 Stop Date: 11/09/19 Status: Ordered isosorbide mononitrate 60 mg oral tablet, extended release 60 mg, 1, tablet, By Mouth, Daily in AM, # 30 tablet, Refills 5, Tot. Refills 5, Soft Stop, 09/11/19 14:15:00 EDT, Route to Pharmacy Electronically, [facility]/pharmacy #[id number], 183, cm, 05/25/19 15:06:00 EST, Height, Dry Weight Start Date: 09/11/19 Stop Date: 03/09/20 Status: Ordered NIFEdipine 30 mg oral tablet, extended release 30 mg, 1, tablet, By Mouth, Daily, Bubble Pack and Delivery, # 30 tablet, Refills 3, Tot. Refills 3, Maintenance, 03/27/18 8:38:30 EST, Route to Pharmacy Electronically, [id number], [facility]/pharmacy #[id number] Start Date: 03/27/18 Status: Ordered nitroglycerin 0.4 mg sublingual tablet 1 tablet = 0.4 mg, Sublingual, Every 5 minutes, PRN Chest Pain, # 25 tablet, 3 Refills, Maintenance, 08/24/19 15:40:00 EDT, [facility]/pharmacy #[id number], 183, cm, 05/25/19 15:06:00 EST, Height, 88.3, kg, 08/31/17 3:30:00 EDT, Dry Weight Start Date: 08/24/19 Stop Date: 12/22/19 Status: Ordered oxyCODONE 30 mg oral tablet 2 tablet = 60 mg, By Mouth, Every 3 hours, AWAKE OVERNIGHT MONITOR checked, # 224 tablet, 0 Refills, Acute 05/15/20 11:05:00 EST, 11/06/19 12:22:00 EDT, [facility]/pharmacy #[id number], may partial fill upon request; disregard otherscript, 11/16/19, 183, cm, 11/05/19 9:35:00 EDT, He... Start Date: 11/06/19 Stop Date: 05/15/20 Status: Ordered pantoprazole 40 mg oral delayed release tablet See Instructions, # 28 tablet, Refills 2 Tot. Refills 2, TAKE 1 TABLET BY MOUTH EVERY DAY, [facility]/pharmacy #[id number] Start Date: 02/26/19 Status: Ordered [...] 01/29/19 17:07:02 EDT, Route to Pharmacy Electronically, [id number], [facility]/pharmacy #[id number], Bubble pack and Delivery Start Date: 01/29/19 Stop Date: 07/28/19 Status: Ordered potassium chloride 10 mEq oral tablet, extended release 1 tablet = 10 mEq, By Mouth, 2 times a day, # 60 tablet, 2 Refills, Maintenance, 10/26/19 13:50:00 EDT, ER Tablet, [facility]/pharmacy #[id number], 183, cm, 05/25/19 15:06:00 EST, Height Start Date: 10/26/19 Stop Date: 01/24/20 Status: Ordered sertraline 100 mg oral tablet 1 tablet = 100 mg, By Mouth, Daily, # 30 tablet, 6 Refills, Maintenance, 07/16/19 14:54:00 EST, Tablet, [facility]/pharmacy #[id number], 183, cm, 05/25/19 15:06:00 EST, [...] tablet, Refills 1, Tot. Refills 1, Maintenance, 10/01/19 13:30:00 EDT, Route to Pharmacy Electronically, [facility]/pharmacy #[id number], 183, cm, 05/25/19 15:06:00 EST, Height, Dry Weight Start Date: 10/01/19 Stop Date: 11/30/19 Status: Ordered spironolactone 25 mg oral tablet See Instructions, # 30 tablet, Refills 1 Tot. Refills 1, TAKE 1 TABLET BY MOUTH EVERY DAY, [facility]/pharmacy #[id number] Start Date: 03/26/19 Status: Ordered spironolactone 25 mg oral tablet 25 mg, 1, tablet, By Mouth, Daily, # 30 tablet, Refills 1, Tot. Refills 1, Maintenance, 05/21/19 10:07:00 EST, Route to Pharmacy Electronically, [facility]/pharmacy #[id number], 183, cm, 01/23/19 14:41:00 EDT, Height, 88.3, kg, 08/31/17 3:30:00 EDT, Dry Weight Start Date: 05/21/19 Status: Ordered sucralfate 1 gm oral tablet 1 Gm, 1, tablet, By Mouth, 3 times a day before meals and bedtime, # 120 tablet, Refills 2, Tot. Refills 2, Soft Stop, 06/18/19 9:36:00 EST, Route to Pharmacy Electronically, [facility]/pharmacy #[id number], 183,cm, 05/25/19 15:06:00 EST, Height, 88.3, kg, ... Start Date: 06/18/19 Stop Date: 09/16/19 Status: Ordered sucralfate 1 gm oral tablet 1 Gm, 1, tablet, By Mouth, 3 times a day before meals and bedtime, # 120 tablet, Refills 2, Tot. Refills 2, Maintenance, 08/13/19 15:11:00 EDT, Route to Pharmacy Electronically, [facility]/pharmacy #[id number], 183, cm, 05/25/19 15:06:00 EST, Height, 88.3, kg, /... Start Date: 08/13/19 Stop Date: 02/09/20 Status: Ordered Vitamin B-12 1000 mcg oral tablet See Instructions, # 28 tablet, Refills 1 Tot. Refills 1, TAKE 1 TABLET BY MOUTH EVERY DAY, [facility]/pharmacy #[id number] Start Date: 03/26/19 Status: Ordered Vitamin B12 1000 mcg oral tablet 1 tablet = 1,000 mcg, By Mouth, Daily, # 30 tablet, 2 Refills, Maintenance, 09/07/19 16:04:00 EDT, Tablet, [facility]/pharmacy #[id number], 183, cm, 05/25/19 15:06:00 EST, [...] artery disease by Rolando Rubin M.D. at [facility]. 5In the past; states this has resolved Vital Signs Most recent to oldest [Reference Range]: 1 Height 183 cm (11/05/19 9:35 AM) Social History Social History Type Response Smoking Status Never smoker entered on: 08/24/16 Sex
--- OUTSIDE RECORDS SUMMARY | 2023-11-18 12:33 | XMS_ITS | Continuity of Care Document ---
Author Organization [facility] Adult Address [address] [place] [id number]- Care Team Providers Care Package Line Relief Operator Name Role Phone Radha ODONNELL, Hannah Primary Care Physician [place] [facility] [place]18[place]23 - 05/18/23 [facility] Adult [address] [place] [id number]- Allergies, Adverse Reactions, Alerts Substance Reaction Severity [...] 01/09/23 7:22:00 EDT, Route to Pharmacy Electronically, [id number], 183, cm, 10/08/22 16:18:00 EDT, Height, 71.3, kg, 08/08/21 0:23:00 EDT, Dry Weight Start Date: 01/09/23 Status: Ordered amLODIPine 5 mg oral tablet 1 tablet, By Mouth, Daily, # 28 tablet, 5 Refills, Maintenance, 11/25/22 16:21:00 EDT, [facility], 183, cm, 10/08/22 16:18:00 EDT, Height, 71.3, kg, 08/08/21 0:23:00 EDT, Dry Weight Start Date: 11/25/22 Status: Ordered atorvastatin 40 mg oral tablet 1 tablet, By Mouth, Daily, # 28 tablet, 2 Refills, Maintenance, 01/09/23 7:23:00 EDT, [facility], 183, cm, 10/08/22 16:18:00 EDT, Height, 71.3, [...] EDT, Route to Pharmacy Electronically, [facility], 183, cm, 10/08/22 16:18:00 EDT, Height, 71.3, [...] EDT, Route to Pharmacy Electronically, [facility], 183, cm, 03/16/22 8:31:00 EDT, Height, 71.3, [...] 6 Refills, Maintenance, 05/14/2216:30:00 EST, [facility], 183, cm, 03/16/22 8:31:00 EDT, Height, 71.3, kg, 08/08/21 0:23:00 EDT, Dry Weight Start Date: 05/14/22 Status: Ordered Eliquis 5 mg oral tablet 1 tablet, By Mouth, 2 times a day, # 56 tablet, 6 Refills, [facility], 183, cm, 08/12/21 14:20:00 EDT, Height, 71.3, kg, 08/08/21 0:23:00 EDT, Dry Weight Start Date: 09/26/21 Status: Ordered Eliquis 5 mg oral tablet See Instructions, TAKE 1 TABLET BY MOUTH TWICE A DAY, # 56 tablet, 6 Refills, Maintenance, 11/30/2314:39:00 EDT, [facility], 183, cm, 10/08/22 16:18:00 EDT, Height, 71.3, kg, 08/08/21 0:23:00 EDT, Dry Weight Start Date: 11/30/22 Status: Ordered furosemide 40 mg oral tablet 1, tablet, By Mouth, 2 times a day, # 56 tablet, Refills 2, Tot. Refills 2, Maintenance, 04/21/23 18:37:00 EST, Route to Pharmacy Electronically, [facility]/pharmacy #[id number], 183, cm, 03/28/23 [...] tablet, 2 Refills, Maintenance, 04/27/23 13:02:00 EST, [facility], 183, cm, 03/28/23 11:43:00 EST, Height, 71.3, kg, 08/08/21 0:23:00 EDT, Dry Weight Start Date: 04/27/23 Status: Ordered isosorbide mononitrate 60 mg oral tablet, extended release 1 tablet, By Mouth, Daily in AM, # 28 tablet, 5 Refills, Maintenance, 04/21/23 18:37:00 EST, [facility]/pharmacy #[id number], 183, cm, 03/28/23 11:43:00 EST, Height, 71.3, kg, 08/08/21 0:23:00 EDT, Dry Weight Start Date: 04/21/23 Stop Date: 10/06/23 Status: Ordered Mylanta Maximum Strength oral suspension 5 mL, By Mouth, 4 times a day, PRN for control of stomach acid, # 200 mL, 1 Refills, Maintenance, 08/12/21 13:46:00 EDT, Suspension, [facility]/pharmacy #[id number], Partial fill upon patient request if the prescription is for a schedule II opioid drug., 5 mL By M... Start Date: 08/12/21 Status: Ordered Narcan 4 mg/0.1 mL nasal spray = 4 mg, Nares, Both, Once, may repeat every 2 to 3 minutes until patient responds, # 1 each, 0 Refills, Soft Stop, 05/14/23 10:41:00 EST, [facility]/pharmacy #[id number], Partial fill upon patient request if the prescription is for a schedule II opioid drug., 183,... Start Date: 05/14/23 Status: Ordered nitroglycerin 0.4 mg sublingual tablet 1 tablet = 0.4 mg, Sublingual, Every 5 minutes, PRN Chest Pain, # 25 tablet, 3 Refills, Maintenance, 08/24/19 15:40:00 EDT, [facility]/pharmacy #[id number], 183, cm, 05/25/19 15:06:00 EST, Height, 88.3, kg, 08/31/17 3:30:00 EDT, Dry Weight Start Date: 08/24/19 Stop Date: 12/22/19 Status: Ordered oxyCODONE 30 mg oral tablet 2 tablet = 60 mg, By Mouth, Every 3 hours, PENAL OFFICER checked., # 112 tablet, 0 Refills, Maintenance, 05/18/23 16:20:00 EST, [facility]/pharmacy #[id number], 7 days as needs testing performed partial fill upon request;,183, cm, 05/10/23 11:59:00 EST, Height, 71.3, kg,... Start Date: 05/18/23 Stop Date: 05/25/23 Status: Ordered oxyCODONE 30 mg oral tablet 2 tablet = 60 mg, By Mouth, Every 3 hours, PENAL OFFICER checked., # 112 tablet, 0 Refills, Maintenance, 05/10/23 13:38:00 EST, [id number], may partial fill upon request;, 183, cm, 05/10/23 11:59:00 EST, Height, 71.3, kg, 08/08/21 0:23:00 EDT, Dry Weight Start Date: 05/10/23 Stop Date: 05/17/23 Status: Ordered pantoprazole 40 mg oral delayed [...] Start Date: 11/30/22 Status: Ordered Potassium Chloride (Bxm-Svie-Npx 10) 10 mEq oral tablet, extended release See Instructions, TAKE 2 TABLETS BY MOUTH EVERY MORNING AND TAKE 1 TABLET EVERY EVENING, # 84 tablet, 2 Refills, Maintenance, 04/27/23 13:02:00 EST, [facility], 183, cm, 03/28/23 11:43:00 EST, Height, 71.3, kg, 08/08/21 0:23:00 EDT, Dry Weight Start Date: 04/27/23 Status: Ordered sertraline 100 mg oral tablet 1 tablet, By Mouth, Daily, # 28 tablet, 5 Refills, Maintenance, 06/09/22 8:26:00 EST, [facility], 183, cm, 03/16/22 8:31:00 EDT, Height, 71.3, kg, 08/08/21 0:23:00 EDT, Dry Weight Start Date: 06/09/22 Status: Ordered sertraline 100 mg oral tablet See Instructions, TAKE 1 TABLET BY MOUTH EVERY DAY, # 28 tablet, 5 Refills, Maintenance, 11/30/22 15:39:00 EDT, [facility], 183, cm, 10/08/22 16:18:00 EDT, Height, 71.3, kg, 08/08/21 0:23:00 EDT, Dry Weight Start Date: 11/30/22 Status: Ordered spironolactone 25 mg oral tablet 1, tablet, By Mouth, Daily, # 28 tablet, Refills 4, Maintenance, 07/08/22 11:30:00 EST, Route to Pharmacy Electronically, [facility], 183, cm, 03/16/22 8:31:00 EDT, Height, 71.3, kg, 08/08/21 0:23:00 EDT, Dry Weight Start Date: 07/08/22 Status: Ordered spironolactone 25 mg oral tablet See Instructions, TAKE 1 TABLET BY MOUTH EVERY DAY, # 28 tablet, Refills 4, Maintenance, 11/30/22 15:38:00 EDT, Instructions Replace Required Details, Route to Pharmacy Electronically, [facility] 120[facility], 183, cm, 10/08/22 16:18:00 EDT, Height, 71.3, kg,... Start Date: 11/30/22 Status: Ordered sucralfate 1 gm oral tablet 1, tablet, By Mouth, 3 times a day before meals, AND BEDTIME., # 112 tablet, Refills 5, Maintenance, 02/04/23 16:32:00 EDT, Route to Pharmacy Electronically, [facility] 94288, 183, cm, 10/08/22 16:18:00 EDT, Height, 71.3, kg, 08/08/21 0:23:00 EDT, Dry... Start Date: 02/04/23 Status: Ordered Vitamin B-12 1000 mcg oral tablet 1, tablet, By Mouth, Daily, # 28 tablet, Refills 11, Tot. Refills 11, Maintenance, 04/21/23 18:37:00 EST, Route to Pharmacy Electronically, [facility]/pharmacy #[id number], 183, cm, 03/28/23 [...] artery disease by Rolando Rubin M.D. at [facility]. 4In the past; states this has resolved Social History Social History Type Response Smoking Status Never smoker entered on: 08/24/16 Sex Patient Care team information Care Team Personnel Name: Irish Samuel RN Position: [facility] RN Member Role: Primary Care Nurse Name: Mireya Ramsey Position: [facility] RN Supv Member Role: Primary Care Nurse Name: Rhea Betancur RN Position: [facility] SN RN Member Role: Primary Care Nurse Name: Hugo Ayala RN Position: [facility] RN Member Role: Primary Care Nurse Name: Lorna Faust RN Position: [facility] RN Member Role: Primary Care Nurse Name: David Gonzalez MD Position: [facility] Renal MD Member Role: Lifetime Consulting Physician Address: Address: [address] [place] [address] [address] [place] [address]- [place] Name: Hannah Garcia NP Position: [facility] PCO Associate Professional Member Role: PCP Address: Address: [address] [place] [address], [address] [place] [address]- [place] Name: Eduin Arias MD Position: [facility] Renal MD Member Role: Lifetime Consulting Physician Address: Address: [address] [place] [address], [address] [place] [address]- [place] Name: Ana Herrrea RN Position: [facility] RN Member Role: Primary Care Nurse Name: Cadence Quach RN Position: [facility] OB RN Member Role: Primary Care Nurse Name: Maggy Tsang RN Position: S RN Member Role: Primary Care Nurse Name: Keyla Keys RN Position: [facility] SN RN Member Role: Primary Care Nurse Name: Марина Guevara RN Position: [facility] SN RN Member Role: Primary Care Nurse Name: Lyn Helms RN Position: [facility] RN Member Role: Primary Care Nurse Name: Tatum Biswas RN Position: [facility] RN Member Role: Primary Care Nurse Name: Hugo Bateman RN Position: [facility] RN Member Role: Primary Care Nurse Name: Petros Levy RN Position: [facility] RN Member Role: Primary Care Nurse Name: Izabella Braun RN Position: [facility] RN Member Role: Primary Care Nurse Name: Lyndsay King RN Position: [facility] RN Member Role: Primary Care Nurse Name: Cirilo CAFETERIA ASSISTANTFelicia Position: [facility] Medical Student Member Role: Primary Care Nurse Name: Hafsa Goyal RN Position: [facility] RN Member Role: Primary Care Nurse Name: Rosalio Jack RN Position: [facility] RN Member Role: Primary Care Nurse Name: Carmela Houser RN Position: [facility] SN RN Member Role: Primary Care Nurse Name: Michael Dickson RN Position: [facility] RN Member Role: Primary Care Nurse Name: Jessica Lema RN Position: [facility] RN Member Role: Primary Care Nurse Name: Phu Flynn MD Position: [facility] Renal MD Member Role: Lifetime Consulting Physician Address: Address: [address] [place] [address] [facility] [address] Name: Yesica Serna RN Position: [facility] OB RN Member Role: Primary Care Nurse Name: Jesusita Lou RN Position: [facility] OB RN Member Role: Primary Care Nurse Name: Husam Elizalde RN Position: [facility] RN Member Role: Primary Care Nurse Name: Marshall Byrd RN Position: [facility] RN Member Role: Primary Care Nurse Care Team Related Persons Name: DUTCH MAR Address: home [place], [place] Name: ALL AYERS Address: home [address], [place] Name: ALL MANZANARES Address: home [address], [place] Name: CHRISTEN GRIMALDO Address: home [address], [place]
--- OUTSIDE RECORDS SUMMARY | 2023-11-18 12:33 | XMS_ITS | Continuity of Care Document ---
Author Organization [facility] Adult Address [address] [place] [address]- Care Team Providers Care Traffic Engineering Director Name Role Phone Radha ODONNELL, Hannah Primary Care Physician [phone] Encounter [facility] [place] Date(s): 05/25/19 - 06/01/19 [facility] Adult [address] [place] [address]- [facility] Attending Physician: Not on Staff, Attending MD [...] allopurinol 100 mg oral tablet See Instructions, # 30 tablet, Refills 2 Tot. Refills 2, TAKE 1 TABLET BY MOUTH DAILY FOR 30 DAYS, [facility]/pharmacy #[id number] Start Date: 02/22/19 Status: Ordered amLODIPine 5 mg oral tablet See Instructions, # 28 tablet, Refills 2 Tot. Refills 2, TAKE 1 TABLET BY MOUTH EVERY DAY, [facility]/pharmacy #[id number] Start Date: 03/26/19 Status: Ordered atorvastatin 40 mg oral tablet See Instructions, # 28 tablet, Refills 5 Tot. Refills 5, TAKE 1 TABLET BY MOUTH EVERY DAY, [facility]/pharmacy #[id number] Start Date: 02/27/19 Status: Ordered buPROPion 150 mg/24 hours (XL) oral tablet, extended release 1 tablet = 150 mg, By Mouth, Every 24 hours, # 30 tablet, 5 Refills, Maintenance, 05/21/19 10:08:00EST, ER Tablet, [facility]/pharmacy #[id number], 1 tablet By Mouth Every 24 hours, 183, cm, 01/23/19 14:41:00 EDT, Height, 88.3, kg, 08/31/17 3:30:00 EDT, Dry Weight Start Date: 05/21/19 Status: Ordered buPROPion 150 mg/24 hours (XL) oral tablet, extended release 1 tablet = 150 mg, By Mouth, Every 24 hours, # 30 tablet, 5 Refills, Maintenance, 05/20/19 10:41:00EST, ER Tablet, [facility]/pharmacy #[id number], Bubble pack and delivery, 1 tablet By Mouth Every 24 hours, 183, cm, 01/23/19 14:41:00 EDT, Height, 88.3, kg, 08/31... Start Date: 05/20/19 Status: Ordered carvedilol 12.5 mg oral tablet 12.5 mg, 1, tablet, By Mouth, 2 times a day, # 60 tablet, Refills 5, Tot. Refills 5, Soft Stop, 03/25/19 11:48:47 EST, Route to Pharmacy Electronically, [id number], [facility]/pharmacy #[id number] Start Date: 03/25/19 Status: Ordered [facility] B-12 1,000 MCG TABLET See Instructions, # 30 tablet, TAKE 1 TABLET BY MOUTH EVERY DAY, [facility]/pharmacy #[id number] Start Date: 03/20/19 Status: Ordered docusate sodium 100 mg oral capsule 100 mg, 1, capsule, By Mouth, 3 times a day, Bubble Pack and Delivery, # 90 capsule, Refills 5, Tot. Refills 5, Maintenance, 11/22/17 13:28:22 EDT, Route to Pharmacy Electronically, [id number], [facility]/pharmacy #[id number] Start Date: 11/22/17 Stop Date: 05/21/18 Status: Ordered Eliquis 5 mg oral tablet 1 tablet = 5 mg, By Mouth, 2 times a day, # 60 tablet, 5 Refills, Maintenance, 05/21/19 10:06:00 EST, Tablet, [facility]/pharmacy #[id number], 183, cm, 01/23/19 14:41:00 EDT, Height, 88.3, kg, 08/31/17 3:30:00 EDT, Dry Weight Start Date: 05/21/19 Status: Ordered Eliquis 5 mg oral tablet See Instructions, # 56 tablet, Refills 3 Tot. Refills 3, TAKE 1 TABLET BY MOUTH TWICE A DAY, [id number] Start Date: 01/30/19 Status: Ordered furosemide 40 mg oral tablet See Instructions, TAKE 1 TABLET BY MOUTH EVERY DAY, # 28 tablet, Refills 1, Tot. Refills 1, Soft Stop, 04/24/19 8:38:35 EST, Instructions Replace Required Details, Route to Pharmacy Electronically, [id number], [facility] Start Date: 04/24/19 Status: Ordered hydrALAZINE 25 mg oral tablet See Instructions, 1 TABLET BY MOUTH 2 TIMES A DAY, # 56 tablet, Refills 1, Tot. Refills 1, Soft Stop, 04/24/19 8:38:36 EST, Instructions Replace Required Details, Route to Pharmacy Electronically, [id number], [facility] Start Date: 04/24/19 Status: Ordered isosorbide mononitrate 60 mg oral tablet, extended release See Instructions, 1 TABLET BY MOUTH DAILY IN AM,, # 28 tablet, Refills 1, Tot. Refills 1, Soft Stop, 04/24/19 8:38:37 EST, Instructions Replace Required Details, Route to Pharmacy Electronically, [id number], [id number] Start Date: 04/24/19 Status: Ordered NIFEdipine 30 mg oral tablet, extended release 30 mg, 1, tablet, By Mouth, Daily, Bubble Pack and Delivery, # 30 tablet, Refills 3, Tot. Refills 3, Maintenance, 03/27/18 8:38:30 EST, Route to Pharmacy Electronically, [id number], [id number] Start Date: 03/27/18 Status: Ordered oxyCODONE 30 mg oral tablet 2 tablet = 60 mg, By Mouth, Every 3 hours, ATHLETIC COACH checked, # 224 tablet, 0 Refills, Acute 05/15/20 13:31:00 EST, 05/15/19 16:04:00 EST, [facility]/pharmacy #[id number], may partial fill upon request, 05/17/19, 183, cm, 01/23/19 14:41:00 EDT, Height, 88.3, kg, ... Start Date: 05/15/19 Stop Date: 05/15/20 Status: Ordered oxyCODONE 30 mg oral tablet 2 tablet = 60 mg, By Mouth, Every 3 hours, ATHLETIC COACH checked, # 224 tablet, 0 Refills, Acute 05/15/20 14:49:00 EST, 06/01/19 17:04:00 EST, [facility]/pharmacy #[id number], may partial fill upon request, 06/04/19, 183, cm, 05/25/19 15:06:00 EST, Height, 88.3, kg, ... Start Date: 06/01/19 Stop Date: 05/15/20 Status: Ordered pantoprazole 40 mg oral delayed release tablet See Instructions, # 28 tablet, Refills 2 Tot. Refills 2, TAKE 1 TABLET BY MOUTH EVERY DAY, [facility]/pharmacy #[id number] Start Date: 02/26/19 Status: Ordered pantoprazole 40 mg oral delayed release tablet 1 tablet = 40 mg, By Mouth, Daily, # 30 tablet, 2 Refills, Maintenance, 05/21/19 10:07:00 EST, [facility] Table[facility], 183, cm, 01/23/19 14:41:00 EDT, Height, 88.3, kg, 08/31/17 3:30:00 EDT, Dry Weight Start Date: 05/21/19 Status: Ordered Plavix 75 mg oral tablet 75 mg, 1, tablet, By Mouth, Daily, # 30 tablet, Refills 5, Tot. Refills 5, Maintenance, 01/29/19 17:07:02 EDT, Route to Pharmacy Electronically, [id number], [facility]/pharmacy #[id number], Bubble pack and Delivery Start [...] TAKE 1 TABLET BY MOUTH EVERY DAY, [facility]/pharmacy #[id number] Start Date: 03/26/19 Status: Ordered spironolactone 25 mg oral tablet 25 mg, 1, tablet, By Mouth, Daily, # 30 tablet, Refills 1, Tot. Refills 1, Maintenance, 05/21/19 10:07:00 EST, Route to Pharmacy Electronically, [facility]/pharmacy #[id number], 183, cm, 01/23/19 14:41:00 EDT, Height, 88.3, kg, 08/31/17 3:30:00 EDT, Dry Weight Start Date: 05/21/19 Status: Ordered sucralfate 1 gm oral tablet 1 Gm, 1, tablet, By Mouth, 3 times a day before meals and bedtime, # 120 tablet, Refills 2, Tot. Refills 2, Soft Stop, 01/29/19 8:25:35 EDT, Route to Pharmacy Electronically, [id number], [facility]/pharmacy #[id number] Start Date: 01/29/19 Stop Date: 04/29/19 Status: Ordered Vitamin B-12 1000 mcg oral tablet See Instructions, # 28 tablet, Refills 1 Tot. Refills 1, TAKE 1 TABLET BY MOUTH EVERY DAY, [facility]/pharmacy #[id number] Start Date: 03/26/19 Status: Ordered Vitamin B12 1000 mcg oral tablet 1 tablet = 1,000 mcg, By Mouth, Daily, # 30 tablet, 2 Refills, Maintenance, 05/21/19 10:03:00 EST, Tablet, [facility]/pharmacy #[id number], 183, cm, 01/23/19 14:41:00 EDT, Height, 88.3, kg, 08/31/17 3:30:00 EDT, Dry Weight Start Date: 05/21/19 Status: Ordered Problem List Condition Effective Dates [...] disease by Rolando Rubin M.D. at [facility]. 5In the past; states this has resolved Vital Signs Most recent to oldest [Reference Range]: 1 Height 183 cm (05/25/19 3:06 PM) Weight 100.1 kg (05/25/19 3:06 PM) Oxygen Saturation [94-100 %] 95 % (05/25/19 3:06 PM) Pulse Rate [55-90 bpm] 101 bpm *H* (05/25/19 3:06 PM) Body Mass Index [18.5-24.99] 29.89 *H* (05/25/19 3:06 PM) Blood Pressure [90-138/55-84 mm Hg] 130/ 80mm Hg (05/25/19 3:06 PM) Blood pressure sites Arm, right (05/25/19 3:06 PM) Temperature Route Oral (05/25/19 3:06 PM) Weight Obtained Via Standing scale (05/25/19 3:06 PM) Social History Social History Type Response Smoking Status Never smoker entered on: 08/24/16 Sex
--- OUTSIDE RECORDS SUMMARY | 2023-11-18 12:33 | XMS_ITS | Continuity of Care Document ---
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 Date(s): 09/08/23 - 10/29/23 [facility] [address] [place] [id number]- Attending Physician: Hannah Garcia NP Allergies, Adverse [...] 09/22/23 19:43:00 EDT, Route to Pharmacy Electronically, [id number], 183, cm, 09/08/23 10:09:00 EDT, Height Start Date: 09/22/23 Status: Ordered amLODIPine 5 mg oral tablet 1 tablet, By Mouth, Daily, # 28 tablet, 5 Refills, Maintenance, 09/22/23 19:43:00 EDT, [facility] [id number], 183, cm, 09/08/23 10:09:00 EDT, Height Start Date: 09/22/23 Status: Ordered atorvastatin 40 mg oral tablet 1 tablet, By Mouth, Daily, # 90 tablet, 1 Refills, Maintenance, 07/01/23 15:53:00 EST, [facility]/pharmacy#[id number], 183, cm, 05/10/23 11:59:00 EST, Height, 71.3, [...] tablet, 0 Refills, Maintenance, 09/20/23 14:28:00 EDT, [facility]/pharmacy#[id number], 1 tablet By Mouth Daily,x90 days, 183, cm, 09/08/23 10:09:00 EDT, Height Start Date: 09/20/23 Stop Date: 12/19/23 Status: Ordered carvedilol 12.5 mg oral tablet 1, tablet, By Mouth, 2 times a day, # 56 tablet, Refills 5, Maintenance, 09/22/23 19:44:00 EDT, Route to Pharmacy Electronically, [facility] STORE [id number], 183, cm, 09/08/23 10:09:00 EDT, Height Start Date: 09/22/23 Status: Ordered cholecalciferol 50,000 intl units oral capsule 1 capsule = 50,000 International_Units, By Mouth, Every week, # 13 capsule, 3 Refills, Maintenance,03/19/23 15:28:00 EDT, Capsule, [facility]/pharmacy #[id number], Partial fill upon patient request if the prescription is for a schedule II opioid drug., 183, cm, 0... Start Date: 03/19/23 Stop Date: 03/13/24 Status: Ordered cholecalciferol 50,000 intl units oral capsule 1 capsule = 50,000 International_Units, By Mouth, Every 7 days, # 13 capsule, 3 Refills, Maintenance, 03/20/23 8:29:00 EST, Capsule, [facility]/pharmacy #[id number], Partial fill upon patient request, 183, cm, 10/08/22 16:18:00 EDT, Height, 71.3, kg, 08/08/21 0:23... Start Date: 03/20/23 Stop Date: 03/14/24 Status: Ordered cloNIDine 0.1 mg oral tablet 1, tablet, By Mouth, 3 times a day, # 84 tablet, Refills 5, Maintenance, 09/22/23 19:45:00 EDT, Route to Pharmacy Electronically, [facility] [id number], 183, cm, 09/08/23 10:09:00 EDT, Height Start Date: 09/22/23 Status: Ordered clopidogrel 75 mg oral tablet 1, tablet, By Mouth, Daily, # 28 tablet, Refills 5, Tot. Refills 5, Maintenance, 06/08/23 14:08:00 EST, Route to Pharmacy Electronically, [facility]/pharmacy #[id number], 183, cm, 05/10/23 11:59:00 EST, Height, [...] a day, # 56 tablet, 6 Refills, [facility] STORE [id number], 183, cm, 08/12/21 14:20:00 EDT, Height, 71.3, kg, 08/08/21 0:23:00 EDT, Dry Weight Start Date: 09/26/21 Status: Ordered Eliquis 5 mg oral tablet See Instructions, TAKE 1 TABLET BY MOUTH TWICE A DAY, # 56 tablet, 6 Refills, Maintenance, 06/07/2409:23:00 EST, [facility]/pharmacy #[id number], 183, cm, 05/10/23 11:59:00 EST, Height, 71.3, kg, 08/08/21 0:23:00 EDT, Dry Weight Start Date: 06/07/23 Status: Ordered furosemide 40 mg oral tablet 1, tablet, By Mouth, 2 times a day, # 168 tablet, Refills 1, Tot. Refills 1, Maintenance, 06/30/23 12:20:00 EST, Route to Pharmacy Electronically, [facility]/pharmacy #[id number], 183, cm, 05/10/23 11:59:00 EST, Height, [...] tablet, 5 Refills, Maintenance, 09/22/23 19:45:00 EDT, [id number], 183, cm, 09/08/23 10:09:00 EDT, Height Start Date: 09/22/23 Status: Ordered isosorbide mononitrate 60 mg oral tablet, extended release 1 tablet, By Mouth, Daily in AM, # 90 tablet, 0 Refills, Maintenance, 09/20/23 14:28:00 EDT, [facility]/pharmacy #[id number], 183, cm, 09/08/23 10:09:00 EDT, Height Start Date: 09/20/23 Stop Date: 12/19/23 Status: Ordered Mylanta Maximum Strength oral suspension 5 mL, By Mouth, 4 times a day, PRN for control of stomach acid, # 200 mL, 1 Refills, Maintenance, 08/12/21 13:46:00 EDT, Suspension, [facility]/pharmacy #[id number], Partial fill upon patient request if the prescription is for a schedule II opioid drug., 5 mL By M... Start Date: 08/12/21 Status: Ordered Narcan 4 mg/0.1 mL nasal spray = 4 mg, Nares, Both, Once, may repeat every 2 to 3 minutes until patient responds, # 1 each, 0 Refills, Soft Stop, 05/14/23 10:41:00 EST, [facility]/pharmacy #[id number], Partial fill upon patient request if the prescription is for a schedule II opioid drug., 183,... Start Date: 05/14/23 Status: Ordered nitroglycerin 0.4 mg sublingual tablet 1 tablet = 0.4 mg, Sublingual, Every 5 minutes, PRN Chest Pain, # 25 tablet, 3 Refills, Maintenance, 08/24/19 15:40:00 EDT, [facility]/pharmacy #[id number], 183, cm, 05/25/19 15:06:00 EST, Height, 88.3, kg, 08/31/17 3:30:00 EDT, Dry Weight Start Date: 08/24/19 Stop Date: 12/22/19 Status: Ordered oxyCODONE 15 mg oral tablet 1 tablet = 15 mg, By Mouth, Every 4 hours, PRN as needed for pain, # 90 tablet, 0 Refills, Maintenance, 08/24/23 7:27:00 EDT, Tablet, [facility]/pharmacy #[id number], Partial fill upon patient [...] Start Date: 06/24/23 Status: Ordered Potassium Chloride (Deb-Pahu-Roz 10) 10 mEq oral tablet, extended release [...] tablet, 0 Refills, Maintenance, 09/01/23 11:58:00 EDT, [facility]/pharmacy#[id number], 183, cm, 05/10/23 11:59:00 EST, Height Start Date: 09/01/23 Stop Date: 11/24/23 Status: Ordered sertraline 100 mg oral tablet See Instructions, TAKE 1 TABLET BY MOUTH EVERY DAY, # 28 tablet, 5 Refills, Maintenance, 11/30/22 15:39:00 EDT, [facility], 183, cm, 10/08/22 16:18:00 EDT, Height, 71.3, kg, 08/08/21 0:23:00 EDT, Dry Weight Start Date: 11/30/22 Status: Ordered spironolactone 25 mg oral tablet 1, tablet, By Mouth, Daily, # 28 tablet, Refills 4, Maintenance, 06/24/23 7:44:00 EST, Route to Pharmacy Electronically, [facility] [id number], 183, cm, 05/10/23 11:59:00 EST, Height, 71.3, kg, 08/08/21 0:23:00 EDT, Dry Weight Start Date: 06/24/23 Status: Ordered sucralfate 1 gm oral tablet 1, tablet, By Mouth, 3 times a day before meals, AND BEDTIME., # 112 tablet, Refills 5, Maintenance, 02/04/23 16:32:00 EDT, Route to Pharmacy Electronically, [facility], 183, cm, 10/08/22 16:18:00 EDT, Height, 71.3, kg, 08/08/21 0:23:00 EDT, Dry... Start Date: 02/04/23 Status: Ordered Vitamin B-12 1000 mcg oral tablet 1, tablet, By Mouth, Daily, # 28 tablet, Refills 11, Tot. Refills 11, Maintenance, 04/21/23 18:37:00 EST, Route to Pharmacy Electronically, [facility]/pharmacy #[id number], 183, cm, 03/28/23 11:43:00 [...] artery disease by Rolando Rubin M.D. at [facility]. 4In the past; states this has resolved Vital Signs Most recent to oldest [Reference Range]: 1 Height 183 cm (09/29/23 8:09 AM) Weight Obtained Via Patient/family state d (09/29/23 8:09 AM) Social History Social History Type Response Smoking Status Never smoker entered on: 08/24/16 Sex Patient Care team information Care Team Personnel Name: Irish Samuel RN Position: [facility] RN Member Role: Primary Care Nurse Name: Ever Blanco RN Position: [facility] ED RN W/OE and Tasks Member Role: Primary Care Nurse Name: Mireya Ramsey Position: [facility] RN Supv Member Role: Primary Care Nurse Name: Rhea Betancur RN Position: [facility] SN RN Member Role: Primary Care Nurse Name: Hugo Ayala RN Position: [facility] RN Member Role: Primary Care Nurse Name: Lorna Faust RN Position: [facility] RN Member Role: Primary Care Nurse Name: Wilner Feliciano RN Position: [facility] SN RN Member Role: Primary Care Nurse Name: David Gonzalez MD Position: [facility] Renal MD Member Role: Lifetime Consulting Physician Address: Address: [address] [place] [address] [address] [facility] [place] [address]- [place] Name: Hannah Garcia NP Position: [facility] PCO Associate Professional Member Role: PCP Address: Address: [address], [address]rd [address] [facility] [place] [address]- [place] Name: Eduin Arias MD Position: [facility] Renal MD Member Role: Lifetime Consulting Physician Address: Address: [address], [address] [place] [address]- [place] Name: Ana Herrera RN Position: [facility] AMB Nurse Member Role: Primary Care Nurse Name: Carlos Montez RN Position: [facility] Outreach Member Role: Primary Care Nurse Name: Cadence Quach RN Position: [facility] OB RN Member Role: Primary Care Nurse Name: Maggy Tsang RN Position: [facility] RN Member Role: Primary Care Nurse Name: Keyla Keys RN Position: [facility] SN RN Member Role: Primary Care Nurse Name: Марина Guevara RN Position: [facility] SN RN Member Role: Primary Care Nurse Name: Lyn Helms RN Position: [facility] RN Member Role: Primary Care Nurse Name: Tatum Biswas RN Position: [facility] RN Member Role: Primary Care Nurse Name: Hugo Bateman RN Position: [facility] RN Member Role: Primary Care Nurse Name: Petros Levy RN Position: [facility] RN Member Role: Primary Care Nurse Name: Charly Burns RN Position: [facility] RN Member Role: Primary Care Nurse Name: Nilesh Bear RN Position: [facility] RN Member Role: Primary Care Nurse Name: Izabella Braun RN Position: [facility] RN Member Role: Primary Care Nurse Name: Donita Almonte RN Position: [facility] SN Gas Manager Member Role: Primary Care Nurse Name: Hafsa Goyal RN Position: [facility] RN Member Role: Primary Care Nurse Name: Rosalio Jack RN Position: [facility] RN Member Role: Primary Care Nurse Name: Carmela Houser RN Position: [facility] SN RN Member Role: Primary Care Nurse Name: Michael Dickson RN Position: [facility] RN Member Role: Primary Care Nurse Name: Jessica Lema RN Position: [facility] RN Member Role: Primary Care Nurse Name: Phu Flynn MD Position: [facility] Renal MD Member Role: Lifetime Consulting Physician Address: Address: [address] [place] [address] [facility] [address] Name: Yesica Serna RN Position: [facility] OB RN Member Role: Primary Care Nurse Name: Jesusita Lou RN Position: [facility] OB RN Member Role: Primary Care Nurse Name: Husam Elizalde RN Position: S RN Member Role: Primary Care Nurse Name: Marshall Byrd RN Position: S RN Member Role: Primary Care Nurse Care Team Related Persons Name: DUTCH MAR Address: [place] [address] Name: ALL AYERS Address: home [address], [place] Name: ALL MANZANARES Address: [address], [place] Name: CHRITSEN GRIMALDO Address: [address] [place] [address]
--- OUTSIDE RECORDS SUMMARY | 2023-11-18 12:33 | XMS_ITS | Continuity of Care Document ---
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 Refills 0, Maintenance, 06/30/23 12:58:00 EST, Route to Pharmacy Electronically, [facility]/pharmacy #[id number], 183, cm, 05/10/23 11:59:00 EST, Height, 71.3, kg, 08/08/21 0:23:00 EDT, Dry Weight Start Date: 06/30/23 Status: Ordered amLODIPine 5 mg oral tablet 1 tablet, By Mouth, Daily, # 84 tablet, 0 Refills, Maintenance, 06/30/23 12:58:00 EST, [facility]/pharmacy#[id number], 183, cm, 05/10/23 11:59:00 EST, Height, 71.3, kg, 08/08/21 0:23:00 EDT, Dry Weight Start Date: 06/30/23 Status: Ordered atorvastatin 40 mg oral tablet 1 tablet, By Mouth, Daily, # 90 tablet, 1 Refills, Maintenance, 07/01/23 15:53:00 EST, [facility]/pharmacy#[id number], 183, cm, 05/10/23 11:59:00 EST, Height, 71.3, [...] tablet, 5 Refills, Maintenance, 04/21/23 18:36:00 EST, [facility]/pharmacy#[id number], 1 tablet By Mouth Daily,x28 days, 183, cm, 03/28/23 11:43:00 EST, Height, 71.3, kg, :23:00 EDT, Dry Weight Start Date: 04/21/23 Stop Date: 10/06/23 Status: Ordered carvedilol 12.5 mg oral tablet 1, tablet, By Mouth, 2 times a day, # 180 tablet, Refills 0, Tot. Refills 0, Maintenance, 07/01/23 15:49:00 EST, Route to Pharmacy Electronically, [facility]/pharmacy #[id number], 183, cm, 05/10/23 11:59:00 EST, Height, 71.3, kg, 08/08/21 0:23:00 EDT, Dry Weight Start Date: 07/01/23 Status: Ordered cholecalciferol 50,000 intl units oral capsule 1 capsule = 50,000 International_Units, By Mouth, Every week, # 13 capsule, 3 Refills, Maintenance,03/19/23 15:28:00 EDT, Capsule, [facility]/pharmacy #[id number], Partial fill upon patient request if the prescription is for a schedule II opioid drug., 183, cm, 0... Start Date: 03/19/23 Stop Date: 03/13/24 Status: Ordered cholecalciferol 50,000 intl units oral capsule 1 capsule = 50,000 International_Units, By Mouth, Every 7 days, # 13 capsule, 3 Refills, Maintenance, 03/20/23 8:29:00 EST, Capsule, [facility]/pharmacy #[id number], Partial fill upon patient request, 183, cm, 10/08/22 16:18:00 EDT, Height, 71.3, kg, 08/08/21 0:23... Start Date: 03/20/23 Stop Date: 03/14/24 Status: Ordered cloNIDine 0.1 mg oral tablet See Instructions, TAKE 1 TABLET BY MOUTH 3 TIMES A DAY, # 84 tablet, Refills 0, Maintenance, 08/10/23 16:24:00 EDT, Instructions Replace Required Details, Route to Pharmacy Electronically, [id number], 183, cm, 05/10/23 11:59:00 EST, Height Start Date: 08/10/23 Status: Ordered clopidogrel 75 mg oral tablet 1, tablet, By Mouth, Daily, # 28 tablet, Refills 5, Tot. Refills 5, Maintenance, 06/08/23 14:08:00 EST, Route to Pharmacy Electronically, [facility]/pharmacy #[id number], 183, cm, 05/10/23 11:59:00 EST, Height, [...] a day, # 56 tablet, 6 Refills, [facility] STORE [id number], 183, cm, 08/12/21 14:20:00 EDT, Height, 71.3, kg, 08/08/21 0:23:00 EDT, Dry Weight Start Date: 09/26/21 Status: Ordered Eliquis 5 mg oral tablet See Instructions, TAKE 1 TABLET BY MOUTH TWICE A DAY, # 56 tablet, 6 Refills, Maintenance, 06/07/2409:23:00 EST, [facility]/pharmacy #[id number], 183, cm, 05/10/23 11:59:00 EST, Height, 71.3, kg, 08/08/21 0:23:00 EDT, Dry Weight Start Date: 06/07/23 Status: Ordered furosemide 40 mg oral tablet 1, tablet, By Mouth, 2 times a day, # 168 tablet, Refills 1, Tot. Refills 1, Maintenance, 06/30/23 12:20:00 EST, Route to Pharmacy Electronically, [facility]/pharmacy #[id number], 183, cm, 05/10/23 11:59:00 EST, Height, [...] By Mouth, 3 times a day, # 270 tablet, 0 Refills, Maintenance, 07/01/23 15:48:00 EST, [facility]/pharmacy #[id number], 183, cm, 05/10/23 11:59:00 EST, Height, 71.3, kg, 08/08/21 0:23:00 EDT, Dry Weight Start Date: 07/01/23 Status: Ordered isosorbide mononitrate 60 mg oral tablet, extended release 1 tablet, By Mouth, Daily in AM, # 28 tablet, 5 Refills, Maintenance, 04/21/23 18:37:00 EST, [facility]/pharmacy #[id number], 183, cm, 03/28/23 11:43:00 EST, [...] 0 Refills, Soft Stop, 05/14/23 10:41:00 EST, [id number], Partial fill upon patient request [...] Date: 08/24/19 Stop Date: 12/22/19 Status: Ordered ondansetron 4 mg oral tablet 1 tablet = 4 mg, By Mouth, Every 8 hours, for 5 days, # 15 tablet, 3 Refills, Acute 09/22/23 17:23:00 EDT, 09/02/23 17:23:00 EDT, Tablet, [id number], Partial fill upon patient request if the prescription is for a schedule II opioid drug., 183,... Start Date: 09/02/23 Stop Date: 09/22/23 Status: Ordered oxyCODONE 15 mg oral tablet 1 tablet = 15 mg, By Mouth, Every 4 hours, PRN as needed for pain, # 90 tablet, 0 Refills, Maintenance, 08/24/23 7:27:00 EDT, Tablet, [id number], Partial fill upon patient request [...] Start Date: 06/24/23 Status: Ordered Potassium Chloride (Oei-Iueq-Pyc 10) 10 mEq oral tablet, extended release See Instructions, TAKE 2 TABLETS BY MOUTH EVERY MORNING AND TAKE 1 TABLET EVERY EVENING, # 270 tablet, 1 Refills, Maintenance, 07/01/23 15:52:00 EST, [facility]/pharmacy #[id number], 183, cm, 05/10/23 11:59:00 EST, Height, 71.3, kg, 08/08/21 0:23:00 EDT, Dry Weight Start Date: 07/01/23 Status: Ordered sertraline 100 mg oral tablet 1 tablet, By Mouth, Daily, # 84 tablet, 0 Refills, Maintenance, 09/01/23 11:58:00 EDT, [facility]/pharmacy#[id number], 183, cm, 05/10/23 11:59:00 EST, Height Start Date: 09/01/23 Stop Date: 11/24/23 Status: Ordered sertraline 100 mg oral tablet See Instructions, TAKE 1 TABLET BY MOUTH EVERY DAY, # 28 tablet, 5 Refills, Maintenance, 11/30/22 15:39:00 EDT, [facility], 183, cm, 10/08/22 16:18:00 EDT, Height, 71.3, kg, 08/08/21 0:23:00 EDT, Dry Weight Start Date: 11/30/22 Status: Ordered spironolactone 25 mg oral tablet 1, tablet, By Mouth, Daily, # 28 tablet, Refills 4, Maintenance, 06/24/23 7:44:00 EST, Route to Pharmacy Electronically, [facility] 55[facility], 183, cm, 05/10/23 11:59:00 EST, Height, 71.3, kg, 08/08/21 0:23:00 EDT, Dry Weight Start Date: 06/24/23 Status: Ordered sucralfate 1 gm oral tablet 1, tablet, By Mouth, 3 times a day before meals, AND BEDTIME., # 112 tablet, Refills 5, Maintenance, 02/04/23 16:32:00 EDT, Route to Pharmacy Electronically, [facility], 183, cm, 10/08/22 16:18:00 EDT, Height, 71.3, kg, 08/08/21 0:23:00 EDT, Dry... Start Date: 02/04/23 Status: Ordered Vitamin B-12 1000 mcg oral tablet 1, tablet, By Mouth, Daily, # 28 tablet, Refills 11, Tot. Refills 11, Maintenance, 04/21/23 18:37:00 EST, Route to Pharmacy Electronically, [facility]/pharmacy #[id number], 183, cm, 03/28/23 11:43:00 EST, [...] artery disease by Rolando Rubin M.D. at [facility]. 4In the past; states this has resolved Social History Social History Type Response Smoking Status Never smoker entered on: 08/24/16 Sex Patient Care team information Care Team Personnel Name: Irish Samuel RN Position: [facility] RN Member Role: Primary Care Nurse Name: Mireya Ramsey Position: [facility] RN Supv Member Role: Primary Care Nurse Name: Rhea Betancur RN Position: [facility] SN RN Member Role: Primary Care Nurse Name: Hugo Ayala RN Position: [facility] RN Member Role: Primary Care Nurse Name: Lorna Faust RN Position: [facility] RN Member Role: Primary Care Nurse Name: Wilner Feliciano RN Position: [facility] SN RN Member Role: Primary Care Nurse Name: David Gonzalez MD Position: [facility] Renal MD Member Role: Lifetime Consulting Physician Address: Address: [address] [place] [address] [address] [facility] [place] [address]- Name: Hannah Garcia NP Position: [facility] PCO Associate Professional Member Role: PCP Address: Address: [address] [place] [address], 3rd [place] [address]- Name: Eduin Arias MD Position: [facility] Renal MD Member Role: Lifetime Consulting Physician Address: Address: [address] [place] [address], [address] [place] [address]- [place] Name: Ana Herrera RN Position: [facility] AMB Nurse Member Role: Primary Care Nurse Name: Carlos Montez RN Position: [facility] Outreach Member Role: Primary Care Nurse Name: Cadence Quach RN Position: [facility] OB RN Member Role: Primary Care Nurse Name: Maggy Tsang RN Position: [facility] RN Member Role: Primary Care Nurse Name: Keyla Keys RN Position: [facility] SN RN Member Role: Primary Care Nurse Name: Марина Guevara RN Position: [facility] SN RN Member Role: Primary Care Nurse Name: Lyn Helms RN Position: [facility] RN Member Role: Primary Care Nurse Name: Tatum Biswas RN Position: [facility] RN Member Role: Primary Care Nurse Name: Hugo Bateman RN Position: [facility] RN Member Role: Primary Care Nurse Name: Petros Levy RN Position: [facility] RN Member Role: Primary Care Nurse Name: Charly Burns RN Position: [facility] RN Member Role: Primary Care Nurse Name: Izabella Braun RN Position: [facility] RN Member Role: Primary Care Nurse Name: Hafsa Goyal RN Position: [facility] RN Member Role: Primary Care Nurse Name: Rosalio Jack RN Position: [facility] RN Member Role: Primary Care Nurse Name: Carmela Houser RN Position: [facility] SN RN Member Role: Primary Care Nurse Name: Michael Dickson RN Position: [facility] RN Member Role: Primary Care Nurse Name: Jessica Lema RN Position: [facility] RN Member Role: Primary Care Nurse Name: Phu Flynn MD Position: [facility] Renal MD Member Role: Lifetime Consulting Physician Address: Address: [address] [place] [address] [facility] [address] Name: Yesica Serna RN Position: [facility] OB RN Member Role: Primary Care Nurse Name: Jesusita Lou RN Position: [facility] OB RN Member Role: Primary Care Nurse Name: Husam Elizalde RN Position: [facility] RN Member Role: Primary Care Nurse Name: Marshall Byrd RN Position: [facility] RN Member Role: Primary Care Nurse Care Team Related Persons Name: ROXANNADUTCH HURTADO Address: [place], [place] Name: ALL AYERS Address: [address], [place] Name: ALL MANZANARES Address: [address], [place] Name: CHRISTEN GRIMALDO Address: [address] [place] [address]
--- OUTSIDE RECORDS SUMMARY | 2023-11-18 12:34 | XMS_ITS | Continuity of Care Document ---
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 Name Role Phone Radha ODONNELL, Hannah Primary Care Physician [place] [facility] [place](s): 02/28/23 - 03/30/23 [facility] [address] [place] [phone]- Allergies, Adverse Reactions, Alerts Substance Reaction Severity [...] 01/09/23 7:22:00 EDT, Route to Pharmacy Electronically, [id number], 183, cm, 10/08/22 16:18:00 EDT, Height, 71.3, kg, 08/08/21 0:23:00 EDT, Dry Weight Start Date: 01/09/23 Status: Ordered amLODIPine 5 mg oral tablet 1 tablet, By Mouth, Daily, # 28 tablet, 5 Refills, Maintenance, 11/25/22 16:21:00 EDT, [facility], 183, cm, 10/08/22 16:18:00 EDT, Height, 71.3, kg, 08/08/21 0:23:00 EDT, Dry Weight Start Date: 11/25/22 Status: Ordered atorvastatin 40 mg oral tablet 1 tablet, By Mouth, Daily, # 28 tablet, 2 Refills, Maintenance, 01/09/23 7:23:00 EDT, [facility], 183, cm, 10/08/22 16:18:00 EDT, Height, 71.3, kg, 08/08/21 0:23:00 EDT, Dry Weight Start Date: 01/09/23 Status: Ordered buPROPion 150 mg/24 hours (XL) oral tablet, extended release 1 tablet, By Mouth, Daily, # 28 tablet, 5 Refills, Maintenance, 09/03/22 20:57:00 EDT, [facility], 28, TAKE 1 TABLET BY MOUTH EVERY DAY, 183, cm, 03/16/22 8:31:00 EDT, Height, 71.3, kg, 220:23:00 EDT, Dry Weight Start Date: 09/03/22 Status: Ordered carvedilol 12.5 mg oral tablet 1, tablet, By Mouth, 2 times a day, # 56 tablet, Refills 5, Maintenance, 11/25/22 16:22:00 EDT, Route to [facility]acy Electronically, [facility], 183, cm, 10/08/22 16:18:00 EDT, Height, 71.3, [...] EDT, Route to Pharmacy Electronically, [facility], 183, cm, 03/16/22 8:31:00 EDT, Height, 71.3, [...] 6 Refills, Maintenance, 05/14/2216:30:00 EST, [facility], 183, cm, 03/16/22 8:31:00 EDT, Height, 71.3, kg, 08/08/21 0:23:00 EDT, Dry Weight Start Date: 05/14/22 Status: Ordered Eliquis 5 mg oral tablet 1 tablet, By Mouth, 2 times a day, # 56 tablet, 6 Refills, [facility], 183, cm, 08/12/21 14:20:00 EDT, Height, 71.3, kg, 08/08/21 0:23:00 EDT, Dry Weight Start Date: 09/26/21 Status: Ordered Eliquis 5 mg oral tablet See Instructions, TAKE 1 TABLET BY MOUTH TWICE A DAY, # 56 tablet, 6 Refills, Maintenance, 11/30/2314:39:00 EDT, [facility], 183, cm, 10/08/22 16:18:00 EDT, Height, 71.3, kg, 08/08/21 0:23:00 EDT, Dry Weight Start Date: 11/30/22 Status: Ordered furosemide 40 mg oral tablet 1, tablet, By Mouth, 2 times a day, # 56 tablet, Refills 2, Maintenance, 09/30/22 8:51:00 EDT, Route to Pharmacy Electronically, [facility], 183, cm, 03/16/22 8:31:00 EDT, Height, 71.3, [...] tablet, 2 Refills, Maintenance, 11/25/22 16:22:00 EDT, [facility], 183, cm, 10/08/22 16:18:00 EDT, Height, 71.3, kg, 08/08/21 0:23:00 EDT, Dry Weight Start Date: 11/25/22 Status: Ordered isosorbide mononitrate 60 mg oral tablet, extended release 1 tablet, By Mouth, Daily in AM, # 28 tablet, 2 Refills, Maintenance, 11/25/22 16:23:00 EDT, [facility], 183, cm, 10/08/22 16:18:00 EDT, Height, 71.3, kg, 08/08/21 0:23:00 EDT, Dry Weight Start Date: 11/25/22 Status: Ordered Mylanta Maximum Strength oral suspension 5 mL, By Mouth, 4 times a day, PRN for control of stomach acid, # 200 mL, 1 Refills, Maintenance, 08/12/21 13:46:00 EDT, Suspension, [facility]/pharmacy #[id number], Partial fill upon patient request if the prescription is for a schedule II opioid drug., 5 mL By M... Start Date: 08/12/21 Status: Ordered nitroglycerin 0.4 mg sublingual tablet 1 tablet = 0.4 mg, Sublingual, Every 5 minutes, PRN Chest Pain, # 25 tablet, 3 Refills, Maintenance, 08/24/19 15:40:00 EDT, [facility]/pharmacy #[id number], 183, cm, 05/25/19 15:06:00 EST, Height, 88.3, kg, 08/31/17 3:30:00 EDT, Dry Weight Start Date: 08/24/19 Stop Date: 12/22/19 Status: Ordered oxyCODONE 30 mg oral tablet 2 tablet = 60 mg, By Mouth, Every 3 hours, TRANSFER TABLE OPERATOR checked. [email or web address] 03/28/23, # 112 tablet, 0 Refills, Maintenance, 03/28/23 7:01:00 EST, [facility]/pharmacy #4471, 7 days as needs testing [...] Start Date: 11/30/22 Status: Ordered Potassium Chloride (Mhy-Sfwn-Vrl 10) 10 mEq oral tablet, extended release See Instructions, TAKE 2 TABLETS BY MOUTH EVERY MORNING AND TAKE 1 TABLET EVERY EVENING, # 84 tablet, 2 Refills, Maintenance, 11/30/22 15:38:00 EDT, [facility] 85744, 183, cm, 10/08/22 16:18:00 EDT, Height, 71.3, kg, 08/08/21 0:23:00 EDT, Dry Weight Start Date: 11/30/22 Status: Ordered Potassium Chloride (Lcn-Dfwm-Pjl 10) 10 mEq oral tablet, extended release See Instructions, TAKE 2 TABLETS BY MOUTH EVERY MORNING AND TAKE 1 TABLET EVERY EVENING, # 84 tablet, 2 Refills, Maintenance, 09/06/22 10:04:00 EDT, [facility], 183, cm, 03/16/22 8:31:00 EDT, Height, 71.3, kg, 08/08/21 0:23:00 EDT, Dry Weight Start Date: 09/06/22 Status: Ordered sertraline 100 mg oral tablet 1 tablet, By Mouth, Daily, # 28 tablet, 5 Refills, Maintenance, 06/09/22 8:26:00 EST, [facility], 183, cm, 03/16/22 8:31:00 EDT, Height, 71.3, kg, 08/08/21 0:23:00 EDT, Dry Weight Start Date: 06/09/22 Status: Ordered sertraline 100 mg oral tablet See Instructions, TAKE 1 TABLET BY MOUTH EVERY DAY, # 28 tablet, 5 Refills, Maintenance, 11/30/22 15:39:00 EDT, [facility], 183, cm, 10/08/22 16:18:00 EDT, Height, 71.3, kg, 08/08/21 0:23:00 EDT, Dry Weight Start Date: 11/30/22 Status: Ordered spironolactone 25 mg oral tablet 1, tablet, By Mouth, Daily, # 28 tablet, Refills 4, Maintenance, 07/08/22 11:30:00 EST, Route to Pharmacy Electronically, [facility], 183, cm, 03/16/22 8:31:00 EDT, Height, 71.3, kg, 08/08/21 0:23:00 EDT, Dry Weight Start Date: 07/08/22 Status: Ordered spironolactone 25 mg oral tablet See Instructions, TAKE 1 TABLET BY MOUTH EVERY DAY, # 28 tablet, Refills 4, Maintenance, 11/30/22 15:38:00 EDT, Instructions Replace Required Details, Route to Pharmacy Electronically, [facility], 183, cm, 10/08/22 16:18:00 EDT, Height, 71.3, kg,... Start Date: 11/30/22 Status: Ordered sucralfate 1 gm oral tablet 1, tablet, By Mouth, 3 times a day before meals, AND BEDTIME., # 112 tablet, Refills 5, Maintenance, 02/04/23 16:32:00 EDT, Route to Pharmacy Electronically, [facility], 183, cm, 10/08/22 16:18:00 EDT, Height, 71.3, kg, 08/08/21 0:23:00 EDT, Dry... Start Date: 02/04/23 Status: Ordered Vitamin B-12 1000 mcg oral tablet 1, tablet, By Mouth, Daily, # 28 tablet, Refills 0, Maintenance, 02/04/23 17:00:00 EDT, Route to Pharmacy Electronically, [facility], 183, cm, 10/08/22 16:18:00 EDT, Height, 71.3, [...] artery disease by Rolando Rubin M.D. at [facility]. 4In the past; states this has resolved Social History Social History Type Response Smoking Status Never smoker entered on: 08/24/16 Sex Patient Care team information Care Team Personnel Name: Irish Samuel RN Position: [facility] RN Member Role: Primary Care Nurse Name: Mireya Ramsey Position: [facility] RN Supv Member Role: Primary Care Nurse Name: Rhea Betancur RN Position: [facility] SN RN Member Role: Primary Care Nurse Name: Hugo Ayala RN Position: [facility] RN Member Role: Primary Care Nurse Name: Lorna Faust RN Position: [facility] RN Member Role: Primary Care Nurse Name: David Gonzalez MD Position: [facility] Renal MD Member Role: Lifetime Consulting Physician Address: Address: [address] [place] [address] [address] [facility] [place] [address]- [place] Name: Hannah Garcia NP Position: [facility] PCO Associate Professional Member Role: PCP Address: Address: [address] [place] [address], [address] [place] [address]- [place] Name: Eduin Arias MD Position: [facility] Renal MD Member Role: Lifetime Consulting Physician Address: Address: [address] [place] [address], [address] [place] [address]- [place] Name: Ana Herrera RN Position: [facility] RN Member Role: Primary Care Nurse Name: Cadence Quach RN Position: [facility] OB RN Member Role: Primary Care Nurse Name: Maggy Tsang RN Position: [facility] RN Member Role: Primary Care Nurse Name: Keyla Keys RN Position: [facility] SN RN Member Role: Primary Care Nurse Name: Марина Guevara RN Position: [facility] RN Member Role: Primary Care Nurse Name: Lyn Helms RN Position: [facility] RN Member Role: Primary Care Nurse Name: Tatum Biswas RN Position: [facility] RN Member Role: Primary Care Nurse Name: Hugo Bateman RN Position: [facility] RN Member Role: Primary Care Nurse Name: Petros Levy RN Position: [facility] RN Member Role: Primary Care Nurse Name: Izabella Braun RN Position: [facility] RN Member Role: Primary Care Nurse Name: Lyndsay King RN Position: [facility] RN Member Role: Primary Care Nurse Name: Felicia Kerr RN Position: [facility] RN Member Role: Primary Care Nurse Name: Hafsa Goyal RN Position: [facility] RN Member Role: Primary Care Nurse Name: Rosalio Jack RN Position: [facility] RN Member Role: Primary Care Nurse Name: Carmela Houser RN Position: [facility] SN RN Member Role: Primary Care Nurse Name: Michael Dickson RN Position: [facility] RN Member Role: Primary Care Nurse Name: Jessica Lema RN Position: [facility] RN Member Role: Primary Care Nurse Name: Phu Flynn MD Position: [facility] Renal MD Member Role: Lifetime Consulting Physician Address: Address: [address] [place] [address] [facility] [address] Name: Yesica Serna RN Position: [facility] OB RN Member Role: Primary Care Nurse Name: Jesusita Lou RN Position: [facility] OB RN Member Role: Primary Care Nurse Name: Husam Elizalde RN Position: [facility] RN Member Role: Primary Care Nurse Care Team Related Persons Name: DUTCH MAR Address: [place] [address] Name: ALL AYERS Address: [address] [place] [address] Name: ALL MANZANARES Address: [address] [place] [address] Name: CHRISTEN GRIMALDO Address: [address] [place] [address]
--- OUTSIDE RECORDS SUMMARY | 2023-11-18 12:34 | XMS_ITS | Continuity of Care Document ---
Author Organization [facility] Address [address] [place] [address]- Care Team Providers Care Polymer Scientist Name Role Phone Radha ODONNELL, Hannah Primary Care Physician [phone] [place] [facility] [place]17[place] 03/19/21 [facility] [address] [place] [phone]- Allergies, Adverse Reactions, Alerts Substance Reaction Severity [...] tablet, Refills 2, Route to Pharmacy Electronically, [facility], 183, cm, 08/05/20 8:57:00 EDT, Height Start Date: 03/14/21 Status: Ordered amLODIPine 5 mg oral tablet 1 tablet, By Mouth, Daily, # 30 tablet, 5 Refills, Maintenance, 10/22/20 16:57:00 EDT, [facility] 62327, 183, cm, 08/05/20 8:57:00 EDT, Height Start Date: 10/22/20 Status: Ordered atorvastatin 40 mg oral tablet 1 tablet, By Mouth, Daily, # 28 tablet, 5 Refills, Maintenance, 11/19/20 20:20:00 EDT, [facility]/pharmacy#[id number], 183, cm, 08/05/20 8:57:00 EDT, Height Start Date: 11/19/20 Status: Ordered buPROPion 150 mg/24 hours (XL) oral tablet, extended release 1 tablet, By Mouth, Every 24 hours, # 28 tablet, 2 Refills, [facility], 28, TAKE 1 TABLET BY MOUTH EVERY 24 HOURS, 183, cm, 08/05/20 8:57:00 EDT, Height Start Date: 03/10/21 Status: Ordered carvedilol 12.5 mg oral tablet 1, tablet, By Mouth, 2 times a day, # 56 tablet, Refills 2, Route to Pharmacy Electronically, [facility] 21521, 183, cm, 08/05/20 8:57:00 EDT, Height Start Date: 02/10/21 Status: Ordered clopidogrel 75 mg oral tablet 1, tablet, By Mouth, Daily, # 30 tablet, Refills 5, Tot. Refills 0, Maintenance, 11/04/20 9:43:00 EDT, Route to Pharmacy Electronically, [facility] 27068, 183, cm, 08/05/20 8:57:00 EDT, Height Start Date: 11/04/20 Status: Ordered [facility] B-12 1,000 MCG TABLET See Instructions, # 30 tablet, TAKE 1 TABLET BY MOUTH EVERY DAY, [facility]/pharmacy #[id number] Start Date: 03/20/19 Status: Ordered docusate sodium 100 mg oral capsule 100 mg, 1, capsule, By Mouth, 3 times a day, Bubble Pack and Delivery, # 90 capsule, Refills 5, Tot. Refills 5, Maintenance, 11/22/17 13:28:22 EDT, Route to Pharmacy Electronically, [id number], [facility]/pharmacy #[id number] Start Date: 11/22/17 Stop Date: 05/21/18 Status: Ordered Eliquis 5 mg oral tablet 1 tablet, By Mouth, 2 times a day, # 56 tablet, 6 Refills, [facility], 183, cm, 08/05/20 8:57:00 EDT, Height Start Date: 01/27/21 Status: Ordered furosemide 40 mg oral tablet 1, tablet, By Mouth, 2 times a day, # 56 tablet, Refills 2, Route to Pharmacy Electronically, [facility] 39060, 183, cm, 08/05/20 8:57:00 EDT, Height Start Date: 03/10/21 Status: Ordered hydrALAZINE 50 mg oral tablet 1 tablet = 50 mg, By Mouth, 3 times a day, dose change, # 90 tablet, 1 Refills, Maintenance, 09/10/19 10:37:00 EDT, Tablet, [facility]/pharmacy #[id number], 183, cm, 05/25/19 15:06:00 EST, Height Start Date: 09/10/19 Stop Date: 11/09/19 Status: Ordered isosorbide mononitrate 60 mg oral tablet, extended release 1 tablet, By Mouth, Daily in AM, # 28 tablet, 6 Refills, Maintenance, 10/22/20 16:57:00 EDT, [facility], 183, cm, 08/05/20 8:57:00 EDT, Height Start Date: 10/22/20 Status: Ordered NIFEdipine 30 mg oral tablet, extended release 30 mg, 1, tablet, By Mouth, Daily, Bubble Pack and Delivery, # 30 tablet, Refills 3, Tot. Refills 3, Maintenance, 03/27/18 8:38:30 EST, Route to Pharmacy Electronically, [id number], [facility]/pharmacy #[id number] Start Date: 03/27/18 Status: Ordered nitroglycerin 0.4 mg sublingual tablet 1 tablet = 0.4 mg, Sublingual, Every 5 minutes, PRN Chest Pain, # 25 tablet, 3 Refills, Maintenance, 08/24/19 15:40:00 EDT, [facility]/pharmacy #[id number], 183, cm, 05/25/19 15:06:00 EST, Height, 88.3, kg, 08/31/17 3:30:00 EDT, Dry Weight Start Date: 08/24/19 Stop Date: 12/22/19 Status: Ordered oxyCODONE 30 mg oral tablet 2 tablet = 60 mg, By Mouth, Every 3 hours, SPUD DRILLER checked fill on 02/23/21, # 224 tablet, 0 Refills, Acute 05/15/21 8:54:00 EST, 03/06/21 9:35:00 EDT, [id number], may partial fill upon request;,03/09/21, 183, cm, 08/05/20 8:57:00 EDT, Height Start Date: 03/06/21 Stop Date: 05/15/21 Status: Ordered pantoprazole 40 mg oral delayed release tablet 1 tablet, By Mouth, Daily, # 28 tablet, 2 Refills, 183, cm, 08/05/20 8:57:00 EDT, Height Start Date: 02/10/21 Status: Ordered Potassium Chloride (Kwm-Opnu-Rng 10) 10 mEq oral tablet, extended release See Instructions, TAKE 2 TABLETS BY MOUTH EVERY MORNING AND TAKE 1 TABLET EVERY EVENING, # 84 tablet, 2 Refills, [facility], 183, cm, 08/05/20 8:57:00 EDT, Height Start Date: 02/10/21 Status: Ordered sertraline 100 mg oral tablet 1 tablet, By Mouth, Daily, # 28 tablet, 5 Refills, Maintenance, 11/20/20 10:42:00 EDT, [facility], 183, cm, 08/05/20 8:57:00 EDT, Height Start Date: 11/20/20 Status: Ordered spironolactone 25 mg oral tablet 1, tablet, By Mouth, Daily, # 28 tablet, Refills 2, Route to Pharmacy Electronically, [facility] 51187, 183, cm, 08/05/20 8:57:00 EDT, Height Start Date: 02/10/21 Status: Ordered sucralfate 1 gm oral tablet 1, tablet, By Mouth, 3 times a day before meals, AND BEDTIME., # 112 tablet, Refills 2, Route to Pharmacy Electronically, [facility] 11847, 183, cm, 08/05/20 8:57:00 EDT, Height Start Date: 01/27/21 Status: Ordered Vitamin B-12 1000 mcg oral tablet 1, tablet, By Mouth, Daily, # 28 tablet, Refills 5, Route to Pharmacy Electronically, [facility] 25775, 183, cm, 08/05/20 8:57:00 EDT, Height Start [...] artery disease by Rolando Rubin M.D. at [facility]. 5In the past; states this has resolved Social History Social History Type Response Smoking Status Never smoker entered on: 08/24/16 Sex
--- OUTSIDE RECORDS SUMMARY | 2023-11-18 12:34 | XMS_ITS | Continuity of Care Document ---
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 Name Role Phone Radha ODONNELL, Hannah Primary Care Physician [phone] [place] [facility] [place](s): 09/02/23 - 10/08/23 [facility] Adult [address] [place] [id number]- Attending Physician: Not on Staff, Attending MD [...] 09/22/23 19:43:00 EDT, Route to Pharmacy Electronically, [id number], 183, cm, 09/08/23 10:09:00 EDT, Height Start Date: 09/22/23 Status: Ordered amLODIPine 5 mg oral tablet 1 tablet, By Mouth, Daily, # 28 tablet, 5 Refills, Maintenance, 09/22/23 19:43:00 EDT, [id number], 183, cm, 09/08/23 10:09:00 EDT, Height Start Date: 09/22/23 Status: Ordered atorvastatin 40 mg oral tablet 1 tablet, By Mouth, Daily, # 90 tablet, 1 Refills, Maintenance, 07/01/23 15:53:00 EST, [facility]/pharmacy#[id number], 183, cm, 05/10/23 11:59:00 EST, Height, [...] tablet, 0 Refills, Maintenance, 09/20/23 14:28:00 EDT, [facility]/pharmacy#[id number], 1 tablet By Mouth Daily,x90 days, 183, cm, 09/08/23 10:09:00 EDT, Height Start Date: 09/20/23 Stop Date: 12/19/23 Status: Ordered carvedilol 12.5 mg oral tablet 1, tablet, By Mouth, 2 times a day, # 56 tablet, Refills 5, Maintenance, 09/22/23 19:44:00 EDT, Route to Pharmacy Electronically, [facility] ST[facility] [id number], 183, cm, 09/08/23 10:09:00 EDT, Height Start Date: 09/22/23 Status: Ordered cholecalciferol 50,000 intl units oral capsule 1 capsule = 50,000 International_Units, By Mouth, Every week, # 13 capsule, 3 Refills, Maintenance,03/19/23 15:28:00 EDT, Capsule, [facility]/pharmacy #[id number], Partial fill upon patient request if the prescription is for a schedule II opioid drug., 183, cm, 0... Start Date: 03/19/23 Stop Date: 03/13/24 Status: Ordered cholecalciferol 50,000 intl units oral capsule 1 capsule = 50,000 International_Units, By Mouth, Every 7 days, # 13 capsule, 3 Refills, Maintenance, 03/20/23 8:29:00 EST, Capsule, [facility]/pharmacy #[id number], Partial fill upon patient request, 183, cm, 10/08/22 16:18:00 EDT, Height, 71.3, kg, 08/08/21 0:23... Start Date: 03/20/23 Stop Date: 03/14/24 Status: Ordered cloNIDine 0.1 mg oral tablet 1, tablet, By Mouth, 3 times a day, # 84 tablet, Refills 5, Maintenance, 09/22/23 19:45:00 EDT, Route to Pharmacy Electronically, [facility] 73025, 183, cm, 09/08/23 10:09:00 EDT, Height Start Date: 09/22/23 Status: Ordered clopidogrel 75 mg oral tablet 1, tablet, By Mouth, Daily, # 28 tablet, Refills 5, Tot. Refills 5, Maintenance, 06/08/23 14:08:00 EST, Route to Pharmacy Electronically, [facility]/pharmacy #[id number], 183, cm, 05/10/23 11:59:00 EST, [...] a day, # 56 tablet, 6 Refills, [facility] 06479, 183, cm, 08/12/21 14:20:00 EDT, Height, 71.3, kg, 08/08/21 0:23:00 EDT, Dry Weight Start Date: 09/26/21 Status: Ordered Eliquis 5 mg oral tablet See Instructions, TAKE 1 TABLET BY MOUTH TWICE A DAY, # 56 tablet, 6 Refills, Maintenance, 06/07/2409:23:00 EST, [facility]/pharmacy #[id number], 183, cm, 05/10/23 11:59:00 EST, Height, 71.3, kg, 08/08/21 0:23:00 EDT, Dry Weight Start Date: 06/07/23 Status: Ordered furosemide 40 mg oral tablet 1, tablet, By Mouth, 2 times a day, # 168 tablet, Refills 1, Tot. Refills 1, Maintenance, 06/30/23 12:20:00 EST, Route to Pharmacy Electronically, [facility]/pharmacy #[id number], 183, cm, 05/10/23 11:59:00 EST, [...] Refills, Maintenance, 09/22/23 19:45:00 EDT, [id number], 183, cm, 09/08/23 10:09:00 EDT, Height Start Date: 09/22/23 Status: Ordered isosorbide mononitrate 60 mg oral tablet, extended release 1 tablet, By Mouth, Daily in AM, # 90 tablet, 0 Refills, Maintenance, 09/20/23 14:28:00 EDT, [facility]/pharmacy #[id number], 183, cm, 09/08/23 10:09:00 EDT, Height Start Date: 09/20/23 Stop Date: 12/19/23 Status: Ordered Mylanta Maximum Strength oral suspension 5 mL, By Mouth, 4 times a day, PRN for control of stomach acid, # 200 mL, 1 Refills, Maintenance, 08/12/21 13:46:00 EDT, Suspension, [facility]/pharmacy #[id number], Partial fill upon patient request if the prescription is for a schedule II opioid drug., 5 mL By M... Start Date: 08/12/21 Status: Ordered Narcan 4 mg/0.1 mL nasal spray = 4 mg, Nares, Both, Once, may repeat every 2 to 3 minutes until patient responds, # 1 each, 0 Refills, Soft Stop, 05/14/23 10:41:00 EST, [facility]/pharmacy #[id number], Partial fill upon patient request if the prescription is for a schedule II opioid drug., 183,... Start Date: 05/14/23 Status: Ordered nitroglycerin 0.4 mg sublingual tablet 1 tablet = 0.4 mg, Sublingual, Every 5 minutes, PRN Chest Pain, # 25 tablet, 3 Refills, Maintenance, 08/24/19 15:40:00 EDT, [facility]/pharmacy #[id number], 183, cm, 05/25/19 15:06:00 EST, Height, 88.3, kg, 08/31/17 3:30:00 EDT, Dry Weight Start Date: 08/24/19 Stop Date: 12/22/19 Status: Ordered oxyCODONE 15 mg oral tablet 1 tablet = 15 mg, By Mouth, Every 4 hours, PRN as needed for pain, # 90 tablet, 0 Refills, Maintenance, 08/24/23 7:27:00 EDT, Tablet, [facility]/pharmacy #[id number], Partial fill upon patient request [...] Start Date: 06/24/23 Status: Ordered Potassium Chloride (Bcg-Vwll-Yap 10) 10 mEq oral tablet, extended release [...] tablet, 0 Refills, Maintenance, 09/01/23 11:58:00 EDT, [facility]/pharmacy#[id number], 183, cm, 05/10/23 11:59:00 EST, Height Start Date: 09/01/23 Stop Date: 11/24/23 Status: Ordered sertraline 100 mg oral tablet See Instructions, TAKE 1 TABLET BY MOUTH EVERY DAY, # 28 tablet, 5 Refills, Maintenance, 11/30/22 15:39:00 EDT, [facility], 183, cm, 10/08/22 16:18:00 EDT, Height, 71.3, kg, 08/08/21 0:23:00 EDT, Dry Weight Start Date: 11/30/22 Status: Ordered spironolactone 25 mg oral tablet 1, tablet, By Mouth, Daily, # 28 tablet, Refills 4, Maintenance, 06/24/23 7:44:00 EST, Route to Pharmacy Electronically, [facility] [id number], 183, cm, 05/10/23 11:59:00 EST, Height, 71.3, kg, 08/08/21 0:23:00 EDT, Dry Weight Start Date: 06/24/23 Status: Ordered sucralfate 1 gm oral tablet 1, tablet, By Mouth, 3 times a day before meals, AND BEDTIME., # 112 tablet, Refills 5, Maintenance, 02/04/23 16:32:00 EDT, Route to Pharmacy Electronically, [facility] ST[facility] [id number], 183, cm, 10/08/22 16:18:00 EDT, Height, 71.3, kg, 08/08/21 0:23:00 EDT, Dry... Start Date: 02/04/23 Status: Ordered Vitamin B-12 1000 mcg oral tablet 1, tablet, By Mouth, Daily, # 28 tablet, Refills 11, Tot. Refills 11, Maintenance, 04/21/23 18:37:00 EST, Route to Pharmacy Electronically, [facility]/pharmacy #[id number], 183, cm, 03/28/23 11:43:00 EST, [...] artery disease by Rolando Rubin M.D. at [facility]. 4In the past; states this has resolved Vital Signs Most recent to oldest [Reference Range]: 1 Height 183 cm (09/08/23 10:09 AM) Weight Obtained Via Patient/family state d (09/08/23 10:09 AM) Social History Social History Type Response Smoking Status Never smoker entered on: 08/24/16 Sex Patient Care team information Care Team Personnel Name: Irish Samuel RN Position: [facility] RN Member Role: Primary Care Nurse Name: Ever Blanco RN Position: [facility] ED RN W/OE and Tasks Member Role: Primary Care Nurse Name: Mireya Ramsey Position: [facility] RN Supv Member Role: Primary Care Nurse Name: Rhea Betancur RN Position: [facility] SN RN Member Role: Primary Care Nurse Name: Hugo Ayala RN Position: [facility] RN Member Role: Primary Care Nurse Name: Lorna Faust RN Position: [facility] RN Member Role: Primary Care Nurse Name: Wilner Feliciano RN Position: [facility] SN RN Member Role: Primary Care Nurse Name: David Gonzalez MD Position: [facility] Renal MD Member Role: Lifetime Consulting Physician Address: Address: [address] [place] [address] [address] [place] [address]- [place] Name: Hannah Garcia NP Position: [facility] PCO Associate Professional Member Role: PCP Address: Address: [address] [place] [facility] [place] [facility] [place] [address]- [place] Name: Eduin Arias MD Position: [facility] Renal MD Member Role: Lifetime Consulting Physician Address: Address: [address], [address] [place] [address]- [place] Name: Ana Herrera RN Position: [facility] AMB Nurse Member Role: Primary Care Nurse Name: Carlos Montez RN Position: [facility] Outreach Member Role: Primary Care Nurse Name: Cadence Quach RN Position: [facility] OB RN Member Role: Primary Care Nurse Name: Maggy Tsang RN Position: [facility] RN Member Role: Primary Care Nurse Name: Keyla Keys RN Position: [facility] SN RN Member Role: Primary Care Nurse Name: Марина Guevara RN Position: [facility] SN RN Member Role: Primary Care Nurse Name: Lyn Helms RN Position: [facility] RN Member Role: Primary Care Nurse Name: Tatum Biswas RN Position: [facility] RN Member Role: Primary Care Nurse Name: Hugo Bateman RN Position: [facility] RN Member Role: Primary Care Nurse Name: Petros Levy RN Position: [facility] RN Member Role: Primary Care Nurse Name: Charly Burns RN Position: [facility] RN Member Role: Primary Care Nurse Name: Nilesh Bear RN Position: [facility] RN Member Role: Primary Care Nurse Name: Izabella Braun RN Position: [facility] RN Member Role: Primary Care Nurse Name: Hafsa Goyal RN Position: [facility] RN Member Role: Primary Care Nurse Name: Rosalio Jack RN Position: [facility] RN Member Role: Primary Care Nurse Name: Carmela Houser RN Position: [facility] SN RN Member Role: Primary Care Nurse Name: Michael Dickson RN Position: [facility] RN Member Role: Primary Care Nurse Name: Jessica Lema RN Position: [facility] RN Member Role: Primary Care Nurse Name: Phu Flynn MD Position: [facility] Renal MD Member Role: Lifetime Consulting Physician Address: Address: [address] [place] [address] [facility] [address] Name: Yesica Serna RN Position: [facility] OB RN Member Role: Primary Care Nurse Name: Jesusita Lou RN Position: [facility] OB RN Member Role: Primary Care Nurse Name: Tonio RN, Husam Position: S RN Member Role: Primary Care Nurse Name: Marshall Byrd RN Position: [facility] RN Member Role: Primary Care Nurse Care Team Related Persons Name: DUTCH MAR Address: [place] [address] Name: ALL AYERS Address: home [address] [place], [place] Name: ALL MANZANARES Address: [address] [place] [address] Name: CHRISTEN GRIMALDO Address: home [address] [place] [id number]
--- OUTSIDE RECORDS SUMMARY | 2023-11-18 12:34 | XMS_ITS | Continuity of Care Document ---
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 Start Date: 10/01/19 Status: Ordered amLODIPine 5 mg oral tablet See Instructions, # 28 tablet, Refills 2 Tot. Refills 2, TAKE 1 TABLET BY MOUTH EVERY DAY, [facility]/pharmacy #[id number] Start Date: 03/26/19 Status: Ordered amLODIPine 5 mg oral tablet 5 mg, 1, tablet, By Mouth, Daily, # 30 tablet, Refills 5, Tot. Refills 5, Maintenance, 11/26/19 14:40:00 EDT, Route to Pharmacy Electronically, [facility]/pharmacy #[id number], 183, cm, 11/05/19 9:35:00 EDT, Height, Dry Weight Start Date: 11/26/19 Stop Date: 05/24/20 Status: Ordered atorvastatin 40 mg oral tablet See Instructions, TAKE 1 TABLET BY MOUTH EVERY DAY, # 28 tablet, 5 Refills, Soft Stop, 08/13/19 11:46:00 EDT, [facility]/pharmacy #[id number], 183, cm, 05/25/19 15:06:00 EST, Height, 88.3, kg, 08/31/17 3:30:00 EDT, Dry Weight Start Date: 08/13/19 Status: Ordered buPROPion 150 mg/24 hours (XL) oral tablet, extended release 1 tablet = 150 mg, By Mouth, Every 24 hours, # 30 tablet, 5 Refills, Maintenance, 10/26/19 13:15:00EDT, ER Tablet, [facility]/pharmacy #[id number], 1 tablet By Mouth Every 24 hours, 183, cm, 05/25/19 15:06:00 EST, Height, Dry Weight Start Date: 10/26/19 Status: Ordered buPROPion 150 mg/24 hours (XL) oral tablet, extended release 1 tablet = 150 mg, By Mouth, Every 24 hours, # 30 tablet, 5 Refills, Maintenance, 05/20/19 10:41:00EST, ER Tablet, [facility]/pharmacy #[id number], Bubble pack and delivery, 1 tablet By Mouth Every 24 hours, 183, cm, 01/23/19 14:41:00 EDT, Height, 88.3, kg, 08/31... Start Date: 05/20/19 Status: Ordered carvedilol 12.5 mg oral tablet 12.5 mg, 1, tablet, By Mouth, 2 times a day, # 60 tablet, Refills 5, Tot. Refills 5, Soft Stop, 10/26/19 11:37:00 EDT, Route to Pharmacy Electronically, [facility]/pharmacy #[id number], 183, cm, 05/25/19 15:06:00EST, Height Start Date: 10/26/19 Status: Ordered clopidogrel 75 mg oral tablet 75 mg, 1, tablet, By Mouth, Daily, # 30 tablet, Refills 5, Tot. Refills 5, Maintenance, 07/16/19 14:53:00 EST, Route to Pharmacy Electronically, [facility]/pharmacy #[id number], 183, cm, 05/25/19 15:06:00 EST, Height, 88.3, kg, 08/31/17 3:30:00 EDT, Dry Weight Start Date: 07/16/19 Status: Ordered [facility] B[facility] 1,000 MCG TABLET See Instructions, # 30 tablet, TAKE 1 TABLET BY MOUTH EVERY DAY, [id number] Start Date: 03/20/19 Status: Ordered docusate sodium 100 mg oral capsule 100 mg, 1, capsule, By Mouth, 3 times a day, Bubble Pack and Delivery, # 90 capsule, Refills 5, Tot. Refills 5, Maintenance, 11/22/17 13:28:22 EDT, Route to Pharmacy Electronically, [id number], [facility]/pharmacy #[id number] Start Date: 11/22/17 Stop Date: 05/21/18 Status: Ordered Eliquis 5 mg oral tablet 1 tablet = 5 mg, By Mouth, 2 times a day, # 60 tablet, 5 Refills, Maintenance, 05/21/19 10:06:00 EST, Tablet, [facility]/pharmacy #[id number], 183, cm, 01/23/19 14:41:00 EDT, Height, 88.3, kg, 08/31/17 3:30:00 EDT, Dry Weight Start Date: 05/21/19 Status: Ordered Eliquis 5 mg oral tablet 1 tablet = 5 mg, By Mouth, 2 times a day, # 60 tablet, 3 Refills, Soft Stop, 10/26/19 13:50:00 EDT,[facility]/pharmacy #[id number], 183, cm, 05/25/19 15:06:00 EST, Height Start Date: 10/26/19 Stop Date: 02/23/20 Status: Ordered furosemide 40 mg oral tablet 40 mg, 1, tablet, By Mouth, Daily, # 30 tablet, Refills 5, Tot. Refills 5, Maintenance, 10/26/19 13:16:00 EDT, Route to Pharmacy Electronically, [facility]/pharmacy #[id number], 183, cm, 05/25/19 15:06:00 EST, Height, Dry Weight Start Date: 10/26/19 Status: Ordered furosemide 40 mg oral tablet 40 mg, 1, tablet, By Mouth, 2 times a day, # 60 tablet, Refills 1, Tot. Refills 1, Soft Stop, 10/26/19 13:50:00 EDT, [facility]ically, [id number], this replaces previous script. Pt is on 2 tabs daily, 183, cm, 05/25/19 15:06:00... Start Date: 10/26/19 Stop Date: 12/25/19 Status: Ordered hydrALAZINE 25 mg oral tablet 25 mg, 1, tablet, By Mouth, 2 times a day, # 60 tablet, Refills 5, Tot. Refills 5, Maintenance, 06/18/19 14:34:00 EST, [facility] to Pharmacy Electronically, [id number], 183, cm, 05/25/19 15:06:00EST, Height, 88.3, kg, 08/31/17 3:30:00 EDT, Dry We... Start Date: 06/18/19 Stop Date: 12/15/19 Status: Ordered hydrALAZINE 50 mg oral tablet 1 tablet = 50 mg, By Mouth, 3 times a day, dose change, # 90 tablet, 1 Refills, Maintenance, 09/10/19 10:37:00 EDT, Tablet, [facility]/pharmacy #[id number], 183, cm, 05/25/19 15:06:00 EST, Height Start Date: 09/10/19 Stop Date: 11/09/19 Status: Ordered isosorbide mononitrate 60 mg oral tablet, extended release 60 mg, 1, tablet, By Mouth, Daily in AM, # 30 tablet, Refills 5, Tot. Refills 5, Soft Stop, 09/11/19 14:15:00 EDT, Route to Pharmacy Electronically, [id number], 183, cm, 05/25/19 15:06:00 EST, Height, Dry Weight Start Date: 09/11/19 Stop Date: 03/09/20 Status: Ordered NIFEdipine 30 mg oral tablet, extended release 30 mg, 1, tablet, By Mouth, Daily, Bubble Pack and Delivery, # 30 tablet, Refills 3, Tot. Refills 3, Maintenance, 03/27/18 8:38:30 EST, Route to Pharmacy Electronically, [id number], [facility]/pharmacy #[id number] Start Date: 03/27/18 Status: Ordered [...] 60 mg, By Mouth, Every 3 hours, CERTIFIED ORTHOTIST PRACTICE MANAGER checked, # 224 tablet, 0 Refills, Acute 05/15/20 11:42:00 EST, 11/28/19 12:31:00 EDT, [facility]/pharmacy #[id number], may partial fill upon request;, 11/30/19, 183,cm, 11/05/19 9:35:00 EDT, Height, Dry Weight Start Date: 11/28/19 Stop Date: 05/15/20 Status: Ordered pantoprazole 40 mg oral delayed release tablet See Instructions, # 28 tablet, Refills 2 Tot. Refills 2, TAKE 1 TABLET BY MOUTH EVERY DAY, [facility]/pharmacy #[id number] Start Date: 02/26/19 Status: Ordered [...] 01/29/19 17:07:02 EDT, Route to Pharmacy Electronically, [id number], [facility]/pharmacy #[id number], Bubble pack and Delivery Start Date: 01/29/19 Stop Date: 07/28/19 Status: Ordered potassium chloride 10 mEq oral tablet, extended release 1 tablet = 10 mEq, By Mouth, 2 times a day, # 60 tablet, 2 Refills, Maintenance, 10/26/19 13:50:00 EDT, ER Tablet, [facility]/pharmacy #[id number], 183, cm, 05/25/19 15:06:00 EST, Height Start Date: 10/26/19 Stop Date: 01/24/20 Status: Ordered sertraline 100 mg oral tablet 1 tablet = 100 mg, By Mouth, Daily, # 30 tablet, 6 Refills, Maintenance, 07/16/19 14:54:00 EST, Tablet, [facility]/pharmacy #[id number], 183, cm, 05/25/19 [...] TAKE 1 TABLET BY MOUTH EVERY DAY, [facility]/pharmacy #[id number] Start Date: 03/26/19 Status: Ordered spironolactone 25 mg oral tablet 25 mg, 1, tablet, By Mouth, Daily, # 30 tablet, Refills 1, Tot. Refills 1, Maintenance, 05/21/19 10:07:00 EST, Route to Pharmacy Electronically, [facility]/pharmacy #[id number], 183, cm, 01/23/19 14:41:00 EDT, Height, 88.3, kg, 08/31/17 3:30:00 EDT, Dry Weight Start Date: 05/21/19 Status: Ordered spironolactone 25 mg oral tablet 25 mg, 1, tablet, By Mouth, Daily, # 30 tablet, Refills 1, Tot. Refills 1, Maintenance, 11/26/19 14:50:00 EDT, Route to Pharmacy Electronically, [facility]/pharmacy #[id number], 183, cm, 11/05/19 9:35:00 EDT, Height, Dry Weight Start Date: 11/26/19 Stop Date: 01/25/20 Status: Ordered sucralfate 1 gm oral tablet 1 Gm, 1, tablet, By Mouth, 3 times a day before meals and bedtime, # 120 tablet, Refills 2, Tot. Refills 2, Soft Stop, 06/18/19 9:36:00 EST, Route to Pharmacy Electronically, [facility]/pharmacy #[id number], 183,cm, 05/25/19 15:06:00 EST, Height, 88.3, kg, ... Start Date: 06/18/19 Stop Date: 09/16/19 Status: Ordered sucralfate 1 gm oral tablet 1 Gm, 1, tablet, By Mouth, 3 times a day before meals and bedtime, # 120 tablet, Refills 2, Tot. Refills 2, Maintenance, 11/26/19 8:36:00 EDT, Route to Pharmacy Electronically, [facility]/pharmacy #[id number], 183, cm, 11/05/19 9:35:00 EDT, Height, Dry Weight Start Date: 11/26/19 Status: Ordered Vitamin B-12 1000 mcg oral tablet See Instructions, # 28 tablet, Refills 1 Tot. Refills 1, TAKE 1 TABLET BY MOUTH EVERY DAY, [facility]/pharmacy #[id number] Start Date: 03/26/19 Status: Ordered Vitamin B12 1000 mcg oral tablet 1 tablet = 1,000 mcg, By Mouth, Daily, # 30 tablet, 2 Refills, Maintenance, 09/07/19 16:04:00 EDT, Tablet, [facility]/pharmacy #[id number], 183, cm, 05/25/19 [...] artery disease by Rolando Rubin M.D. at [facility]. 5In the past; states this has resolved Vital Signs Most recent to oldest [Reference Range]: 1 Height 183 cm (10/29/19 1:13 PM) Social History Social History Type Response Smoking Status Never smoker entered on: 08/24/16 Sex
--- OUTSIDE RECORDS SUMMARY | 2023-11-18 12:34 | XMS_ITS | Continuity of Care Document ---
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 Role Phone Radha ODONNELL, Hannah Primary Care Physician [phone] Encounter [facility] [place] Date(s): 09/29/23 - 10/29/23 [facility] [address] [place] [id number]- Attending Physician: AdmCaroline barreto Admitting Physician: AdmtrCaroline [...] 09/22/23 19:43:00 EDT, Route to Pharmacy Electronically, [id number], 183, cm, 09/08/23 10:09:00 EDT, Height Start Date: 09/22/23 Status: Ordered amLODIPine 5 mg oral tablet 1 tablet, By Mouth, Daily, # 28 tablet, 5 Refills, Maintenance, 09/22/23 19:43:00 EDT, [facility], 183, cm, 09/08/23 10:09:00 EDT, Height Start Date: 09/22/23 Status: Ordered atorvastatin 40 mg oral tablet 1 tablet, By Mouth, Daily, # 90 tablet, 1 Refills, Maintenance, 07/01/23 15:53:00 EST, [facility]/pharmacy#[id number], 183, cm, 05/10/23 11:59:00 EST, Height, 71.3, [...] tablet, 0 Refills, Maintenance, 09/20/23 14:28:00 EDT, [facility]/pharmacy#[id number], 1 tablet By Mouth Daily,x90 days, 183, cm, 09/08/23 10:09:00 EDT, Height Start Date: 09/20/23 Stop Date: 12/19/23 Status: Ordered carvedilol 12.5 mg oral tablet 1, tablet, By Mouth, 2 times a day, # 56 tablet, Refills 5, Maintenance, 09/22/23 19:44:00 EDT, Route to Pharmacy Electronically, [id number], 183, cm, 09/08/23 10:09:00 EDT, Height Start Date: 09/22/23 Status: Ordered cholecalciferol 50,000 intl units oral capsule 1 capsule = 50,000 International_Units, By Mouth, Every week, # 13 capsule, 3 Refills, Maintenance,03/19/23 15:28:00 EDT, Capsule, [facility]/pharmacy #[id number], Partial fill upon patient request if the prescription is for a schedule II opioid drug., 183, cm, 0... Start Date: 03/19/23 Stop Date: 03/13/24 Status: Ordered cholecalciferol 50,000 intl units oral capsule 1 capsule = 50,000 International_Units, By Mouth, Every 7 days, # 13 capsule, 3 Refills, Maintenance, 03/20/23 8:29:00 EST, Capsule, [facility]/pharmacy #[id number], Partial fill upon patient request, 183, cm, 10/08/22 16:18:00 EDT, Height, 71.3, kg, 08/08/21 0:23... Start Date: 03/20/23 Stop Date: 03/14/24 Status: Ordered cloNIDine 0.1 mg oral tablet 1, tablet, By Mouth, 3 times a day, # 84 tablet, Refills 5, Maintenance, 09/22/23 19:45:00 EDT, Route to Pharmacy Electronically, [facility], 183, cm, 09/08/23 10:09:00 EDT, Height Start Date: 09/22/23 Status: Ordered clopidogrel 75 mg oral tablet 1, tablet, By Mouth, Daily, # 28 tablet, Refills 5, Tot. Refills 5, Maintenance, 06/08/23 14:08:00 EST, Route to Pharmacy Electronically, [facility]/pharmacy #[id number], 183, cm, 05/10/23 11:59:00 EST, Height, [...] # 56 tablet, 6 Refills, [facility], 183, cm, 08/12/21 14:20:00 EDT, Height, 71.3, kg, 08/08/21 0:23:00 EDT, Dry Weight Start Date: 09/26/21 Status: Ordered Eliquis 5 mg oral tablet See Instructions, TAKE 1 TABLET BY MOUTH TWICE A DAY, # 56 tablet, 6 Refills, Maintenance, 06/07/2409:23:00 EST, [facility]/pharmacy #[id number], 183, cm, 05/10/23 11:59:00 EST, Height, 71.3, kg, 08/08/21 0:23:00 EDT, Dry Weight Start Date: 06/07/23 Status: Ordered furosemide 40 mg oral tablet 1, tablet, By Mouth, 2 times a day, # 168 tablet, Refills 1, Tot. Refills 1, Maintenance, 06/30/23 12:20:00 EST, Route to Pharmacy Electronically, [facility]/pharmacy #[id number], 183, cm, 05/10/23 11:59:00 EST, Height, [...] tablet, 5 Refills, Maintenance, 09/22/23 19:45:00 EDT, [facility] ST[facility] 88990, 183, cm, 09/08/23 10:09:00 EDT, Height Start Date: 09/22/23 Status: Ordered isosorbide mononitrate 60 mg oral tablet, extended release 1 tablet, By Mouth, Daily in AM, # 90 tablet, 0 Refills, Maintenance, 09/20/23 14:28:00 EDT, [facility]/pharmacy #[id number], 183, cm, 09/08/23 10:09:00 EDT, Height Start Date: 09/20/23 Stop Date: 12/19/23 Status: Ordered Mylanta Maximum Strength oral suspension 5 mL, By Mouth, 4 times a day, PRN for control of stomach acid, # 200 mL, 1 Refills, Maintenance, 08/12/21 13:46:00 EDT, Suspension, [facility]/pharmacy #[id number], Partial fill upon patient request if the prescription is for a schedule II opioid drug., 5 mL By M... Start Date: 08/12/21 Status: Ordered Narcan 4 mg/0.1 mL nasal spray = 4 mg, Nares, Both, Once, may repeat every 2 to 3 minutes until patient responds, # 1 each, 0 Refills, Soft Stop, 05/14/23 10:41:00 EST, [facility]/pharmacy #[id number], Partial fill upon patient request if [...] Start Date: 06/24/23 Status: Ordered Potassium Chloride (Oye-Dddq-Dca 10) 10 mEq oral tablet, extended release [...] tablet, 0 Refills, Maintenance, 09/01/23 11:58:00 EDT, [facility]/pharmacy#[id number], 183, cm, 05/10/23 11:59:00 EST, Height Start Date: 09/01/23 Stop Date: 11/24/23 Status: Ordered sertraline 100 mg oral tablet See Instructions, TAKE 1 TABLET BY MOUTH EVERY DAY, # 28 tablet, 5 Refills, Maintenance, 11/30/22 15:39:00 EDT, [facility], 183, cm, 10/08/22 16:18:00 EDT, Height, 71.3, kg, 08/08/21 0:23:00 EDT, Dry Weight Start Date: 11/30/22 Status: Ordered spironolactone 25 mg oral tablet 1, tablet, By Mouth, Daily, # 28 tablet, Refills 4, Maintenance, 06/24/23 7:44:00 EST, Route to Pharmacy Electronically, [facility]64, 183, cm, 05/10/23 11:59:00 EST, Height, 71.3, kg, 08/08/21 0:23:00 EDT, Dry Weight Start Date: 06/24/23 Status: Ordered sucralfate 1 gm oral tablet 1, tablet, By Mouth, 3 times a day before meals, AND BEDTIME., # 112 tablet, Refills 5, Maintenance, 02/04/23 16:32:00 EDT, Route to Pharmacy Electronically, [facility], 183, cm, 10/08/22 16:18:00 EDT, Height, 71.3, kg, 08/08/21 0:23:00 EDT, Dry... Start Date: 02/04/23 Status: Ordered Vitamin B-12 1000 mcg oral tablet 1, tablet, By Mouth, Daily, # 28 tablet, Refills 11, Tot. Refills 11, Maintenance, 04/21/23 18:37:00 EST, Route to Pharmacy Electronically, [facility]/pharmacy #[id number], 183, cm, 03/28/23 11:43:00 EST, Height,71.3, [...] artery disease by Rolando Rubin M.D. at [facility]. 4In the past; states this has resolved Social History Social History Type Response Smoking Status Never smoker entered on: 08/24/16 Sex Hospital Consult note * Event Display: Inpatient Consult Note, Non-BH Authored Date: * Event Display: Inpatient Consult Note, Non-BH Authored Date: * Event Display: Inpatient Consult Note, Non-BH Authored Date: Note * Nikki Andrade RN: PERFORM Event Display: Discharge/Transfer Note Hospital Authored Date: [id number] Post Discharge Phone Call Entered On: 09/27/2017 16:51 EDT Performed On: 09/27/2017 16:50 EDT by Nikki Andrade RN Post Discharge Phone Call Post Discharge Caller : Patient Post Discharge Call Back Number : [phone] Post Discharge Call Category : Other: CHF post discharge follow up call Post Discharge Message Status : Unable to reach patient after multiple attempts, Other: Automated message when attempted to call patient at documented phone number, this number has calling restrictions that prevent completion of this call. Lupe RAMOS, Nikki - 09/27/2017 16:50 EDT * Event Display: [...] Event Display: Consult Note Cardiology Authored Date: Radiology * Event Display: CT Scan Chest, Non- BH Authored Date: * Event Display: CT Scan Head, Non- BH Authored Date: * Event Display: X-Ray Chest, Non- BH Authored Date: * Risa Parisi: PERFORM Event Display: Radiology Results Scanned Authored Date: CT Head * Event Display: CT Scan Head Authored Date: Patient Care team information Care Team Personnel Name: Irish Samuel RN Position: [facility] RN Member Role: Primary Care Nurse Name: Ever Blanco RN Position: [facility] ED RN W/OE and Tasks Member Role: Primary Care Nurse Name: Mireya Ramsey Position: [facility] RN Supv Member Role: Primary Care Nurse Name: Rhea Betancur RN Position: [facility] SN RN Member Role: Primary Care Nurse Name: Hugo Ayala RN Position: [facility] RN Member Role: Primary Care Nurse Name: Lorna Faust RN Position: [facility] RN Member Role: Primary Care Nurse Name: Wilner Feliciano RN Position: [facility] SN RN Member Role: Primary Care Nurse Name: David Gonzalez MD Position: [facility] Renal MD Member Role: Lifetime Consulting Physician Address: Address: [address] [place] [address] [address] [facility] [place] [address]- [place] Name: Hannah Garcia NP Position: [facility] PCO Associate Professional Member Role: PCP Address: Address: [address] [facility] [place] [address]- [place] Name: Eduin Arias MD Position: [facility] Renal MD Member Role: Lifetime Consulting Physician Address: Address: [address], [address] [place] [address]- [place] Name: Ana Herrera RN Position: [facility] AMB Nurse Member Role: Primary Care Nurse Name: Carlos Montez RN Position: [facility] Outreach Member Role: Primary Care Nurse Name: Cadence Quach RN Position: [facility] OB RN Member Role: Primary Care Nurse Name: Maggy Tsang RN Position: [facility] RN Member Role: Primary Care Nurse Name: Keyla Keys RN Position: [facility] SN RN Member Role: Primary Care Nurse Name: Марина Guevara RN Position: [facility] SN RN Member Role: Primary Care Nurse Name: Lyn Helms RN Position: [facility] RN Member Role: Primary Care Nurse Name: Tatum Biswas RN Position: [facility] RN Member Role: Primary Care Nurse Name: Hugo Bateman RN Position: [facility] RN Member Role: Primary Care Nurse Name: Petros Levy RN Position: [facility] RN Member Role: Primary Care Nurse Name: Charly Burns RN Position: [facility] RN Member Role: Primary Care Nurse Name: Nilesh Bear RN Position: [facility] RN Member Role: Primary Care Nurse Name: Izabella Braun RN Position: [facility] RN Member Role: Primary Care Nurse Name: Donita Almonte RN Position: [facility] SN Director Food Safety Member Role: Primary Care Nurse Name: Hafsa Goyal RN Position: [facility] RN Member Role: Primary Care Nurse Name: Rosalio Jack RN Position: [facility] RN Member Role: Primary Care Nurse Name: Carmela Houser RN Position: [facility] SN RN Member Role: Primary Care Nurse Name: Michael Dickson RN Position: [facility] RN Member Role: Primary Care Nurse Name: Jessica Lema RN Position: S RN Member Role: Primary Care Nurse Name: Phu Flynn MD Position: [facility] Renal MD Member Role: Lifetime Consulting Physician Address: Address: [address] [place] [address] [facility] [address] Name: Yesica Serna RN Position: [facility] OB RN Member Role: Primary Care Nurse Name: Jesusita Lou RN Position: [facility] OB RN Member Role: Primary Care Nurse Name: Husam Elizalde RN Position: [facility] RN Member Role: Primary Care Nurse Name: Marshall Byrd RN Position: [facility] RN Member Role: Primary Care Nurse Care Team Related Persons Name: DUTCH MAR Address: [place] [address] Name: ALL AYERS Address: [address] [place] [address] Name: ALL MANZANARES Address: [address] [place] [address] Name: CHRISTEN GRIMALDO Address: [address] [place] [address]
--- OUTSIDE RECORDS SUMMARY | 2023-11-18 12:34 | XMS_ITS | Continuity of Care Document ---
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 Start Date: 05/15/20 Status: Ordered amLODIPine 5 mg oral tablet 5 mg, 1, tablet, By Mouth, Daily, # 30 tablet, Refills 5, Tot. Refills 5, Maintenance, 04/29/20 13:47:00 EST, Route to Pharmacy Electronically, [facility]/pharmacy #[id number], 183, cm, 02/05/20 12:53:00 EDT, Height Start Date: 04/29/20 Stop Date: 10/26/20 Status: Ordered atorvastatin 40 mg oral tablet See Instructions, TAKE 1 TABLET BY MOUTH EVERY DAY, # 28 tablet, 5 Refills, Soft Stop, 12/27/19 14:47:00 EDT, [facility]/pharmacy #[id number], 183, cm, 11/05/19 9:35:00 EDT, Height, Dry Weight Start Date: 12/27/19 Status: Ordered buPROPion 150 mg/24 hours (XL) oral tablet, extended release 1 tablet = 150 mg, By Mouth, Every 24 hours, # 30 tablet, 5 Refills, Maintenance, 02/18/20 10:40:00EDT, ER Tablet, [facility]/pharmacy #[id number], Bubble pack and delivery, 1 tablet By Mouth Every 24 hours, 183, cm, 02/05/20 12:53:00 EDT, Height, Dry Weight Start Date: 02/18/20 Status: Ordered carvedilol 12.5 mg oral tablet 12.5 mg, 1, tablet, By Mouth, 2 times a day, # 60 tablet, Refills 2, Tot. Refills 2, Soft Stop, 04/12/20 20:34:00 EST, Route to Pharmacy Electronically, [facility]/pharmacy #[id number], 183, cm, 02/05/20 12:53:00EDT, Height Start Date: 04/12/20 Status: Ordered clopidogrel 75 mg oral tablet 75 mg, 1, tablet, By Mouth, Daily, # 30 tablet, Refills 5, Tot. Refills 5, Maintenance, 05/15/20 15:55:00 EST, Route to Pharmacy Electronically, [facility]/pharmacy #[id number], 183, cm, 05/12/20 9:35:00 EST, Height Start Date: 05/15/20 Status: Ordered [facility] B-12 1,000 MCG TABLET See Instructions, # 30 tablet, TAKE 1 TABLET BY MOUTH EVERY DAY, [facility]/pharmacy #[id number] Start Date: 03/20/19 Status: Ordered docusate sodium 100 mg oral capsule 100 mg, 1, capsule, By Mouth, 3 times a day, Bubble Pack and Delivery, # 90 capsule, Refills 5, Tot. Refills 5, Maintenance, 11/22/17 13:28:22 EDT, Route to Pharmacy Electronically, [id number], [facility]/pharmacy #[id number] Start Date: 11/22/17 Stop Date: 05/21/18 Status: Ordered Eliquis 5 mg oral tablet 1 tablet = 5 mg, By Mouth, 2 times a day, # 60 tablet, 5 Refills, Maintenance, 02/18/20 14:47:00 EDT, Tablet, [facility]/pharmacy #[id number], 183, cm, 02/05/20 12:53:00 EDT, Height, Dry Weight Start Date: 02/18/20 Status: Ordered furosemide 40 mg oral tablet 40 mg, 1, tablet, By Mouth, 2 times a day, # 60 tablet, Refills 2, Tot. Refills 2, Soft Stop, 05/05/20 14:35:00 EST, Route to Pharmacy Electronically, [facility]/pharmacy #[id number], this replaces previous script. Pt is on 2 tabs daily, 183, cm, 02/05/20 12:53:00... Start Date: 05/05/20 Stop Date: 08/03/20 Status: Ordered hydrALAZINE 50 mg oral tablet 1 tablet = 50 mg, By Mouth, 3 times a day, dose change, # 90 tablet, 1 Refills, Maintenance, 09/10/19 10:37:00 EDT, Tablet, [facility]/pharmacy #[id number], 183, cm, 05/25/19 15:06:00 EST, Height Start Date: 09/10/19 Stop Date: 11/09/19 Status: Ordered isosorbide mononitrate 60 mg oral tablet, extended release 60 mg, 1, tablet, By Mouth, Daily in AM, # 30 tablet, Refills 5, Tot. Refills 5, Soft Stop, 05/03/20 17:20:00 EST, Route to Pharmacy Electronically, [facility]/pharmacy #[id number], 183, cm, 02/05/20 12:53:00 EDT, Height Start Date: 05/03/20 Stop Date: 10/30/20 Status: Ordered NIFEdipine 30 mg oral tablet, extended release 30 mg, 1, tablet, By Mouth, Daily, Bubble Pack and Delivery, # 30 tablet, Refills 3, Tot. Refills 3, Maintenance, 03/27/18 8:38:30 EST, Route to Pharmacy Electronically, [id number], [facility]/pharmacy #[id number] Start Date: 03/27/18 Status: Ordered nitroglycerin 0.4 mg sublingual tablet 1 tablet = 0.4 mg, Sublingual, Every 5 minutes, PRN Chest Pain, # 25 tablet, 3 Refills, Maintenance, 08/24/19 15:40:00 EDT, [facility]/pharmacy #[id number], 183, cm, 05/25/19 15:06:00 EST, Height, 88.3, kg, 08/31/17 3:30:00 EDT, Dry Weight Start Date: 08/24/19 Stop Date: 12/22/19 Status: Ordered oxyCODONE 30 mg oral tablet 2 tablet = 60 mg, By Mouth, Every 3 hours, PATIENT ACCESS checked, # 224 tablet, 0 Refills, Acute 05/15/21 13:21:00 EST, 05/14/20 13:28:00 EST, [facility]/pharmacy #[id number], may partial fill upon request;, 05/15/20, 183,cm, 05/12/20 9:35:00 EST, Height Start Date: 05/14/20 Stop Date: 05/15/21 Status: Ordered pantoprazole 40 mg oral delayed release tablet See Instructions, # 28 tablet, Refills 2 Tot. Refills 2, TAKE 1 TABLET BY MOUTH EVERY DAY, [facility]/pharmacy #[id number] Start Date: 02/26/19 Status: Ordered [...] Refills, Maintenance, 04/15/20 9:13:00 EST, ER Tablet, [facility]/pharmacy #[id number], 183, cm, 02/05/20 12:53:00 EDT, Height Start Date: 04/15/20 Status: Ordered sertraline 100 mg oral tablet 1 tablet = 100 mg, By Mouth, Daily, # 90 tablet, 1 Refills, Maintenance, 02/18/20 14:47:00 EDT, Tablet, [facility]/pharmacy #[id number], Bubble pack and delivery, 183, cm, 02/05/20 12:53:00 EDT, Height Start Date: 02/18/20 Stop Date: 08/16/20 Status: Ordered spironolactone 25 mg oral tablet 25 mg, 1, tablet, By Mouth, Daily, # 30 tablet, Refills 2, Tot. Refills 2, Soft Stop, 04/15/20 9:13:00 EST, [id number], 183, cm, 02/05/20 12:53:00 EDT, Height Start Date: 04/15/20 Stop Date: 07/14/20 Status: Ordered sucralfate 1 gm oral tablet 1 Gm, 1, tablet, By Mouth, 3 times a day before meals and bedtime, # 120 tablet, Refills 2, Tot. Refills 2, Maintenance, 04/29/20 13:47:00 EST, [facility], [id number], 183, cm, 02/05/20 12:53:00 EDT, Height Start Date: 04/29/20 Status: Ordered Vitamin B-12 1000 mcg oral tablet 1,000 mcg, 1, tablet, By Mouth, Daily, # 30 tablet, Refills 2, Tot. Refills 2, Soft Stop, 04/15/20 9:13:00 EST, [facility], [id number], 183, cm, 02/05/20 12:53:00 EDT, Height [...] Rolando Rubin M.D. at [facility]. 5In the past; states this has resolved Vital Signs Most recent to oldest [Reference Range]: 1 Height 183 cm (05/12/20 9:35 AM) Social History Social History Type Response Smoking Status Never smoker entered on: 08/24/16 Sex
--- OUTSIDE RECORDS SUMMARY | 2023-11-18 12:34 | XMS_ITS | Continuity of Care Document ---
Author Organization [facility] Adult Address [address] [place] [address]- Care Team Providers Care Branch Examiner Name Role Phone Radha ODONNELL, Hannah Primary Care Physician Encounter [facility] [place] Date(s): 12/24/19 - 01/23/20 [facility] Adult [address] [place] [phone]- [facility] Allergies, Adverse Reactions, Alerts Substance Reaction [...] Replace Required Details, Route to Pharmacy Electronically, [facility]/pharmacy #[id number], [address]gerald, 11/05/19 9:35:0... Start Date: 12/24/19 Status: Ordered amLODIPine 5 mg oral tablet See Instructions, # 28 tablet, Refills 2 Tot. Refills 2, TAKE 1 TABLET BY MOUTH EVERY DAY, [facility]/pharmacy #[id number] Start Date: 03/26/19 Status: Ordered amLODIPine 5 mg oral tablet 5 mg, 1, tablet, By Mouth, Daily, # 30 tablet, Refills 5, Tot. Refills 5, Maintenance, 11/26/19 14:40:00 EDT, Route to Pharmacy Electronically, [facility]/pharmacy #[id number], 183, cm, 11/05/19 9:35:00 EDT, Height, Dry Weight Start Date: 11/26/19 Stop Date: 05/24/20 Status: Ordered atorvastatin 40 mg oral tablet See Instructions, TAKE 1 TABLET BY MOUTH EVERY DAY, # 28 tablet, 5 Refills, Soft Stop, 12/27/19 14:47:00 EDT, [facility]/pharmacy #[id number], 183, cm, 11/05/19 9:35:00 EDT, Height, Dry Weight Start Date: 12/27/19 Status: Ordered buPROPion 150 mg/24 hours (XL) oral tablet, extended release 1 tablet = 150 mg, By Mouth, Every 24 hours, # 30 tablet, 5 Refills, Maintenance, 10/26/19 13:15:00EDT, ER Tablet, [facility]/pharmacy #[id number], 1 tablet By Mouth Every 24 hours, 183, cm, 05/25/19 15:06:00 EST, Height, Dry Weight Start Date: 10/26/19 Status: Ordered buPROPion 150 mg/24 hours (XL) oral tablet, extended release 1 tablet = 150 mg, By Mouth, Every 24 hours, # 30 tablet, 5 Refills, Maintenance, 05/20/19 10:41:00EST, ER Tablet, [facility]/pharmacy #[id number], Bubble pack and delivery, 1 tablet By Mouth Every 24 hours, 183, cm, 01/23/19 14:41:00 EDT, Height, 88.3, kg, 08/31... Start Date: 05/20/19 Status: Ordered carvedilol 12.5 mg oral tablet 12.5 mg, 1, tablet, By Mouth, 2 times a day, # 60 tablet, Refills 5, Tot. Refills 5, Soft Stop, 10/26/19 11:37:00 EDT, Route to Pharmacy Electronically, [facility]/pharmacy #[id number], 183, cm, 05/25/19 15:06:00EST, Height Start Date: 10/26/19 Status: Ordered clopidogrel 75 mg oral tablet 75 mg, 1, tablet, By Mouth, Daily, # 30 tablet, Refills 5, Tot. Refills 5, Maintenance, 12/24/19 13:07:00 EDT, Route to Pharmacy Electronically, [facility]/pharmacy #[id number], 183, cm, 11/05/19 9:35:00 EDT, Height, Dry Weight Start Date: 12/24/19 Status: Ordered [facility] B-12 1,000 MCG TABLET See Instructions, # 30 tablet, TAKE 1 TABLET BY MOUTH EVERY DAY, [facility]/pharmacy #[id number] Start Date: 03/20/19 Status: Ordered docusate sodium 100 mg oral capsule 100 mg, 1, capsule, By Mouth, 3 times a day, Bubble Pack and Delivery, # 90 capsule, Refills 5, Tot. Refills 5, Maintenance, 11/22/17 13:28:22 EDT, Route to Pharmacy Electronically, [id number], [facility]/pharmacy #[id number] Start Date: 11/22/17 Stop Date: 05/21/18 Status: Ordered Eliquis 5 mg oral tablet 1 tablet = 5 mg, By Mouth, 2 times a day, # 60 tablet, 5 Refills, Maintenance, 05/21/19 10:06:00 EST, Tablet, [facility]/pharmacy #[id number], 183, cm, 01/23/19 14:41:00 EDT, Height, 88.3, kg, 08/31/17 3:30:00 EDT, Dry Weight Start Date: 05/21/19 Status: Ordered Eliquis 5 mg oral tablet 1 tablet = 5 mg, By Mouth, 2 times a day, # 60 tablet, 5 Refills, Soft Stop, 01/17/20 9:48:00 EDT, [facility]/pharmacy #[id number], 183, cm, 11/05/19 9:35:00 EDT, Height Start Date: 01/17/20 Stop Date: 07/15/20 Status: Ordered furosemide 40 mg oral tablet 40 mg, 1, tablet, By Mouth, Daily, # 30 tablet, Refills 5, Tot. Refills 5, Maintenance, 10/26/19 13:16:00 EDT, Route to Pharmacy Electronically, [facility]/pharmacy #[id number], 183, cm, 05/25/19 15:06:00 EST, Height, Dry Weight Start Date: 10/26/19 Status: Ordered furosemide 40 mg oral tablet 40 mg, 1, tablet, By Mouth, 2 times a day, # 60 tablet, Refills 1, Tot. Refills 1, Soft Stop, 10/26/19 13:50:00 EDT, [id number] previous [facility]. Pt is on 2 tabs daily, 183, cm, 05/25/19 15:06:00... Start Date: 10/26/19 Stop Date: 12/25/19 Status: Ordered hydrALAZINE 25 mg oral tablet 25 mg, 1, tablet, By Mouth, 2 times a day, # 60 tablet, Refills 5, Tot. Refills 5, Maintenance, 06/18/19 14:34:00 EST, Route to Pharmacy Electronically, [facility]/pharmacy #[id number], 183, cm, 05/25/19 15:06:00EST, Height, 88.3, kg, 08/31/17 3:30:00 EDT, Dry We... Start Date: 06/18/19 Stop Date: 12/15/19 Status: Ordered hydrALAZINE 50 mg oral tablet 1 tablet = 50 mg, By Mouth, 3 times a day, dose change, # 90 tablet, 1 Refills, Maintenance, 09/10/19 10:37:00 EDT, Tablet, [facility]/pharmacy #[id number], 183, cm, 05/25/19 15:06:00 EST, Height Start Date: 09/10/19 Stop Date: 11/09/19 Status: Ordered isosorbide mononitrate 60 mg oral tablet, extended release 60 mg, 1, tablet, By Mouth, Daily in AM, # 30 tablet, Refills 5, Tot. Refills 5, Soft Stop, 09/11/19 14:15:00 EDT, Route to Pharmacy Electronically, [facility]/pharmacy #[id number], 183, cm, 05/25/19 15:06:00 EST, Height, Dry Weight Start Date: 09/11/19 Stop Date: 03/09/20 Status: Ordered NIFEdipine 30 mg oral tablet, extended release 30 mg, 1, tablet, By Mouth, Daily, Bubble Pack and Delivery, # 30 tablet, Refills 3, Tot. Refills 3, Maintenance, 03/27/18 8:38:30 EST, Route to Pharmacy Electronically, [id number], [facility]/pharmacy #[id number] Start Date: 03/27/18 Status: Ordered nitroglycerin 0.4 mg sublingual tablet 1 tablet = 0.4 mg, Sublingual, Every 5 minutes, PRN Chest Pain, # 25 tablet, 3 Refills, Maintenance, 08/24/19 15:40:00 EDT, [facility]/pharmacy #[id number], 183, cm, 05/25/19 15:06:00 EST, Height, 88.3, kg, 08/31/17 3:30:00 EDT, Dry Weight Start Date: 08/24/19 Stop Date: 12/22/19 Status: Ordered oxyCODONE 30 mg oral tablet 2 tablet = 60 mg, By Mouth, Every 3 hours, 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 Refills 5, Maintenance, 01/29/19 17:07:02 EDT, Route to Pharmacy Electronically, [id number], [facility]/pharmacy #[id number], Bubble pack and Delivery Start Date: 01/29/19 Stop Date: 07/28/19 Status: Ordered potassium chloride 10 mEq oral tablet, extended release 1 tablet = 10 mEq, By Mouth, 2 times a day, # 60 tablet, 2 Refills, Maintenance, 01/22/20 12:59:00 EDT, ER Tablet, [facility]/pharmacy #[id number], 183, cm, 11/05/19 9:35:00 EDT, Height Start Date: 01/22/20 Stop Date: 04/21/20 Status: Ordered sertraline 100 mg oral tablet 1 tablet = 100 mg, By Mouth, Daily, # 30 tablet, 6 Refills, Maintenance, 07/16/19 14:54:00 EST, Tablet, [facility]/pharmacy #[id number], 183, cm, 05/25/19 [...] 6 Refills, Maintenance, 12/28/19 10:04:00 EDT, Tablet, [facility]/pharmacy #[id number], 183, cm, 11/05/19 9:35:00 EDT, Height, Dry Weight Start Date: 12/28/19 Status: Ordered spironolactone 25 mg oral tablet 25 mg, 1, tablet, By Mouth, Daily, # 30 tablet, Refills 1, Tot. Refills 1, Maintenance, 01/22/20 12:58:00 EDT, Route to Pharmacy Electronically, [facility]/pharmacy #[id number], 183, cm, 11/05/19 9:35:00 EDT, Height, Dry Weight Start Date: 01/22/20 Stop Date: 03/22/20 Status: Ordered spironolactone 25 mg oral tablet See Instructions, # 30 tablet, Refills 1 Tot. Refills 1, TAKE 1 TABLET BY MOUTH EVERY DAY, [facility]/pharmacy #[id number] Start Date: 03/26/19 Status: Ordered spironolactone 25 mg oral tablet 25 mg, 1, tablet, By Mouth, Daily, # 30 tablet, Refills 1, Tot. Refills 1, Maintenance, 05/21/19 10:07:00 EST, Route to Pharmacy Electronically, [facility]/pharmacy #[id number], 183, cm, 01/23/19 14:41:00 EDT, Height, 88.3, kg, 08/31/17 3:30:00 EDT, Dry Weight Start Date: 05/21/19 Status: Ordered sucralfate 1 gm oral tablet 1 Gm, 1, tablet, By Mouth, 3 times a day before meals and bedtime, # 120 tablet, Refills 2, Tot. Refills 2, Soft Stop, 06/18/19 9:36:00 EST, Route to Pharmacy Electronically, [facility]/pharmacy #[id number], 183,cm, 05/25/19 15:06:00 EST, Height, 88.3, kg, ... Start Date: 06/18/19 Stop Date: 09/16/19 Status: Ordered sucralfate 1 gm oral tablet 1 Gm, 1, tablet, By Mouth, 3 times a day before meals and bedtime, # 120 tablet, Refills 2, Tot. Refills 2, Maintenance, 11/26/19 8:36:00 EDT, Route to Pharmacy Electronically, [facility]/pharmacy #[id number], 183, cm, 11/05/19 9:35:00 EDT, Height, Dry Weight Start Date: 11/26/19 Status: Ordered Vitamin B-12 1000 mcg oral tablet See Instructions, # 28 tablet, Refills 1 Tot. Refills 1, TAKE 1 TABLET BY MOUTH EVERY DAY, [facility]/pharmacy #[id number] Start Date: 03/26/19 Status: Ordered Vitamin B12 1000 mcg oral tablet 1 tablet = 1,000 mcg, By Mouth, Daily, # 30 tablet, 5 Refills, Maintenance, 12/24/19 13:07:00 EDT, Tablet, [facility]/pharmacy #[id number], 183, cm, 11/05/19 [...] at [facility]. 5In the past; states this has resolved Social History Social History Type Response Smoking Status Never smoker entered on: 08/24/16 Sex
--- OUTSIDE RECORDS SUMMARY | 2023-11-18 12:34 | XMS_ITS | Continuity of Care Document ---
Author Organization [facility] Adult Address [address] [place] [address]- Care Team Providers Care Assistant Store Manager Name Role Phone Radha ODONNELL, Hannah Primary Care Physician [phone] Encounter [facility] [place] Date(s): 01/22/20 - 02/21/20 [facility] Adult [address] [place] [id number] [facility] Allergies, Adverse Reactions, Alerts Substance [...] Details, Route to Pharmacy Electronically, [facility]/pharmacy #[id number], 183, cm, 11/05/19 9:35:0... Start Date: 12/24/19 Status: Ordered amLODIPine 5 mg oral tablet 5 mg, 1, tablet, By Mouth, Daily, # 30 tablet, Refills 5, Tot. Refills 5, Maintenance, 11/26/19 14:40:00 EDT, Route to Pharmacy Electronically, [facility]/pharmacy #[id number], 183, cm, 11/05/19 9:35:00 EDT, Height, Dry Weight Start Date: 11/26/19 Stop Date: 05/24/20 Status: Ordered atorvastatin 40 mg oral tablet See Instructions, TAKE 1 TABLET BY MOUTH EVERY DAY, # 28 tablet, 5 Refills, Soft Stop, 12/27/19 14:47:00 EDT, [facility]/pharmacy #[id number], 183, cm, 11/05/19 9:35:00 EDT, Height, Dry Weight Start Date: 12/27/19 Status: Ordered buPROPion 150 mg/24 hours (XL) oral tablet, extended release 1 tablet = 150 mg, By Mouth, Every 24 hours, # 30 tablet, 5 Refills, Maintenance, 02/18/20 10:40:00EDT, ER Tablet, [facility]/pharmacy #[id number], Bubble pack and delivery, 1 tablet By Mouth Every 24 hours, 183, cm, 02/05/20 12:53:00 EDT, Height, Dry Weight Start Date: 02/18/20 Status: Ordered carvedilol 12.5 mg oral tablet 12.5 mg, 1, tablet, By Mouth, 2 times a day, # 60 tablet, Refills 5, Tot. Refills 5, Soft Stop, 10/26/19 11:37:00 EDT, Route to Pharmacy Electronically, [facility]/pharmacy #[id number], 183, cm, 05/25/19 15:06:00EST, Height Start Date: 10/26/19 Status: Ordered clopidogrel 75 mg oral tablet 75 mg, 1, tablet, By Mouth, Daily, # 30 tablet, Refills 5, Tot. Refills 5, Maintenance, 12/24/19 13:07:00 EDT, Route to Pharmacy Electronically, [facility]/pharmacy #[id number], 183, cm, 11/05/19 9:35:00 EDT, Height, Dry Weight Start Date: 12/24/19 Status: Ordered [facility] B-12 1,000 MCG TABLET See Instructions, # 30 tablet, TAKE 1 TABLET BY MOUTH EVERY DAY, [facility]/pharmacy #[id number] Start Date: 03/20/19 Status: Ordered docusate sodium 100 mg oral capsule 100 mg, 1, capsule, By Mouth, 3 times a day, Bubble Pack and Delivery, # 90 capsule, Refills 5, Tot. Refills 5, Maintenance, 11/22/17 13:28:22 EDT, Route to Pharmacy Electronically, [id number], [facility]/pharmacy #[id number] Start Date: 11/22/17 Stop Date: 05/21/18 Status: Ordered Eliquis 5 mg oral tablet 1 tablet = 5 mg, By Mouth, 2 times a day, # 60 tablet, 5 Refills, Maintenance, 02/18/20 14:47:00 EDT, Tablet, [facility]/pharmacy #[id number], 183, cm, 02/05/20 12:53:00 EDT, Height, Dry Weight Start Date: 02/18/20 Status: Ordered furosemide 40 mg oral tablet 40 mg, 1, tablet, By Mouth, 2 times a day, # 60 tablet, Refills 2, Tot. Refills 2, Soft Stop, 02/06/20 10:28:00 EDT, Route to Pharmacy Electronically, [facility]/pharmacy #[id number], this replaces previous script. Pt is on 2 tabs daily, 183, cm, 02/05/20 12:53:00... Start Date: 02/06/20 Stop Date: 05/06/20 Status: Ordered hydrALAZINE 50 mg oral tablet 1 tablet = 50 mg, By Mouth, 3 times a day, dose change, # 90 tablet, 1 Refills, Maintenance, 09/10/19 10:37:00 EDT, Tablet, [facility]/pharmacy #[id number], 183, cm, 05/25/19 15:06:00 EST, Height Start Date: 09/10/19 Stop Date: 11/09/19 Status: Ordered isosorbide mononitrate 60 mg oral tablet, extended release 60 mg, 1, tablet, By Mouth, Daily in AM, # 30 tablet, Refills 5, Tot. Refills 5, Soft Stop, 09/11/19 14:15:00 EDT, Route to Pharmacy Electronically, [facility]/pharmacy #[id number], 183, cm, 05/25/19 15:06:00 EST, Height, Dry Weight Start Date: 09/11/19 Stop Date: 03/09/20 Status: Ordered NIFEdipine 30 mg oral tablet, extended release 30 mg, 1, tablet, By Mouth, Daily, Bubble Pack and Delivery, # 30 tablet, Refills 3, Tot. Refills 3, Maintenance, 03/27/18 8:38:30 EST, Route to Pharmacy Electronically, [id number], [facility]/pharmacy #[id number] Start Date: 03/27/18 Status: Ordered nitroglycerin 0.4 mg sublingual tablet 1 tablet = 0.4 mg, Sublingual, Every 5 minutes, PRN Chest Pain, # 25 tablet, 3 Refills, Maintenance, 08/24/19 15:40:00 EDT, [facility]/pharmacy #[id number], 183, cm, 05/25/19 15:06:00 EST, Height, 88.3, kg, 08/31/17 3:30:00 EDT, Dry Weight Start Date: 08/24/19 Stop Date: 12/22/19 Status: Ordered oxyCODONE 30 mg oral tablet 2 tablet = 60 mg, By Mouth, Every 3 hours, PRESERVATIONIST checked, # 224 tablet, 0 Refills, Acute 05/15/20 10:26:00 EST, 02/13/20 12:56:00 EDT, [facility]/pharmacy #[id number], may partial fill upon request;, 02/22/20, 183,cm, 02/05/20 12:53:00 EDT, Height, Dry Weight Start Date: 02/13/20 Stop Date: 05/15/20 Status: Ordered pantoprazole 40 [...] TABLET BY MOUTH EVERY DAY, [facility]/pharmacy #[id number] Start Date: 02/26/19 Status: Ordered potassium chloride 10 mEq oral tablet, extended release See Instructions, take 2 tabs in am and 1 tab in pm, # 90 tablet, 2 Refills, Maintenance, 02/06/20 16:13:00 EDT, ER Tablet, [facility]/pharmacy #[id number], 183, cm, 02/05/20 12:53:00 EDT, Height Start Date: 02/06/20 Status: Ordered sertraline 100 mg oral tablet 1 tablet = 100 mg, By Mouth, Daily, # 90 tablet, 1 Refills, Maintenance, 02/18/20 14:47:00 EDT, [facility]t, [id number] Bubble [facility] delivery, 183, cm, 02/05/20 12:53:00 EDT, Height Start Date: 02/18/20 Stop Date: 08/16/20 Status: Ordered spironolactone 25 mg oral tablet 25 mg, 1, tablet, By Mouth, Daily, # 30 tablet, Refills 1, Tot. Refills 1, Soft Stop, 02/18/20 14:47:00 EDT, [facility], [id number], 183, cm, 02/05/20 12:53:00 EDT, Height Start Date: 02/18/20 Stop Date: 04/18/20 Status: Ordered sucralfate 1 gm oral tablet 1 Gm, 1, tablet, By Mouth, 3 times a day before meals and bedtime, # 120 tablet, Refills 2, Tot. Refills 2, Maintenance, 02/13/20 15:20:00 EDT, [facility], [id number], 183, cm, 02/05/20 12:53:00 EDT, Height, Dry Weight Start Date: 02/13/20 Status: Ordered Vitamin B-12 1000 mcg oral tablet 1,000 mcg, 1, tablet, By Mouth, Daily, # 30 tablet, Refills 1, Tot. Refills 1, Soft Stop, 02/18/20 14:47:00 EDT, [facility], [id number], 183, cm, 02/05/20 12:53:00 EDT, Height Start Date: 02/18/20 Stop Date: 04/18/20 Status: Ordered Problem List Condition Effective Dates [...] disease by Rolando Rubin M.D. at [facility]. 5In the past; states this has resolved Social History Social History Type Response Smoking Status Never smoker entered on: 08/24/16 Sex
--- OUTSIDE RECORDS SUMMARY | 2023-11-18 12:34 | XMS_ITS | Continuity of Care Document ---
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 Name Role Phone Radha ODONNELL, Hannah Primary Care Physician Encounter [facility] [place](s): 09/29/21 - 10/29/21 [facility] Adult [address] [place] [id number]- Allergies, Adverse Reactions, Alerts Substance Reaction Severity [...] tablet, Refills 2, Route to Pharmacy Electronically, [facility], 183, cm, 08/12/21 14:20:00 EDT, Height, 71.3, kg, 08/08/21 0:23:00 EDT, Dry Weight Start Date: 09/25/21 Status: Ordered amLODIPine 5 mg oral tablet 1 tablet, By Mouth, Daily, # 28 tablet, 4 Refills, [facility], 183, cm, 10/20/21 10:31:00 EDT,Height, 71.3, kg, 08/08/21 0:23:00 EDT, Dry Weight Start Date: 10/27/21 Status: Ordered atorvastatin 40 mg oral tablet 1 tablet, By Mouth, Daily, # 28 tablet, 5 Refills, [facility], 183, cm, 05/04/21 3:09:00 EST, Height, 81.7, kg, 04/16/21 3:06:00 EST, Dry Weight Start Date: 07/01/21 Status: Ordered buPROPion 150 mg/24 hours (XL) oral tablet, extended release 1 tablet, By Mouth, Every 24 hours, # 28 tablet, 2 Refills, [facility], 28, TAKE 1 TABLET BY MOUTH EVERY 24 HOURS, 183, cm, 08/12/21 14:20:00 EDT, Height, 71.3, kg, 08/08/21 0:23:00 EDT, Dry Weight Start Date: 09/25/21 Status: Ordered carvedilol 12.5 mg oral tablet 1, tablet, By Mouth, 2 times a day, # 56 tablet, Refills 5, Route to Pharmacy Electronically, [facility], 183, cm, 05/04/21 3:09:00 EST, Height, 81.7, kg, 04/16/21 3:06:00 EST, Dry Weight Start Date: 07/07/21 Status: Ordered clopidogrel 75 mg oral tablet 1, tablet, By Mouth, Daily, # 28 tablet, Refills 5, Route to Pharmacy Electronically, [facility], 183, cm, 05/04/21 3:09:00 EST, Height, 81.7, kg, 04/16/21 3:06:00 EST, Dry Weight Start Date: 07/02/21 Status: Ordered Eliquis 5 mg oral tablet 1 tablet, By Mouth, 2 times a day, # 56 tablet, 6 Refills, [facility], 183, cm, 08/12/21 14:20:00 EDT, Height, 71.3, kg, 08/08/21 0:23:00 EDT, Dry Weight Start Date: 09/26/21 Status: Ordered furosemide 40 mg oral tablet 1, tablet, By Mouth, 2 times a day, # 56 tablet, Refills 2, Route to Pharmacy Electronically, [facility], 183, cm, 08/12/21 14:20:00 EDT, Height, 71.3, kg, 08/08/21 0:23:00 EDT, Dry Weight Start Date: 09/25/21 Status: Ordered hydrALAZINE 50 mg oral tablet 1 tablet = 50 mg, By Mouth, 3 times a day, dose change, # 90 tablet, 1 Refills, Maintenance, 09/10/19 10:37:00 EDT, Tablet, [facility]/pharmacy #[id number], 183, cm, 05/25/19 15:06:00 EST, Height Start Date: 09/10/19 Stop Date: 11/09/19 Status: Ordered isosorbide mononitrate 60 mg oral tablet, extended release 1 tablet, By Mouth, Daily in AM, # 28 tablet, 4 Refills, [facility], 183, cm, 10/20/21 10:31:00 EDT, Height, 71.3, kg, 08/08/21 0:23:00 EDT, Dry Weight Start Date: 10/27/21 Status: Ordered Mylanta Maximum Strength oral suspension 5 mL, By Mouth, 4 times a day, PRN for control of stomach acid, # 200 mL, 1 Refills, Maintenance, 08/12/21 13:46:00 EDT, Suspension, [facility]/pharmacy #[id number], Partial fill upon patient request if the prescription is for a schedule II opioid drug., 5 mL By M... Start Date: 08/12/21 Status: Ordered nitroglycerin 0.4 mg sublingual tablet 1 tablet = 0.4 mg, Sublingual, Every 5 minutes, PRN Chest Pain, # 25 tablet, 3 Refills, Maintenance, 08/24/19 15:40:00 EDT, [facility]/pharmacy #[id number], 183, cm, 05/25/19 15:06:00 EST, Height, 88.3, kg, 08/31/17 3:30:00 EDT, Dry Weight Start Date: 08/24/19 Stop Date: 12/22/19 Status: Ordered oxyCODONE 30 mg oral tablet 2 tablet = 60 mg, By Mouth, Every 3 hours, CLINICAL RN checked. 10/27/21, # 224 tablet, 0 Refills, Acute 05/15/22 9:44:00 EST, 10/27/21 11:16:00 EDT, [id number], may partial fill upon request;, 183, cm, 10/20/21 10:31:00 EDT, Height, 71.3, kg, 03/26/2... Start Date: 10/27/21 Stop Date: 05/15/22 Status: Ordered pantoprazole 40 mg oral delayed release tablet 1 tablet, By Mouth, Daily, # 28 tablet, 2 Refills, 08/12/21 13:46:00 EDT, 183, cm, 08/12/21 12:05:00 EDT, Height, 71.3, kg, 08/08/21 0:23:00 EDT, Dry Weight Start Date: 08/12/21 Status: Ordered Potassium Chloride (Hgk-Hayw-Vsd 10) 10 mEq oral tablet, extended release See Instructions, TAKE 2 TABLETS BY MOUTH EVERY MORNING AND TAKE 1 TABLET EVERY EVENING, # 84 tablet, 2 Refills, [facility], 183, cm, 08/12/21 14:20:00 EDT, Height, 71.3, kg, 08/08/21 0:23:00 EDT, Dry Weight Start Date: 09/03/21 Status: Ordered sertraline 100 mg oral tablet 1 tablet, By Mouth, Daily, # 28 tablet, 5 Refills, [facility] 184[facility], 183, cm, 05/04/21 3:09:00 EST, Height, 81.7, kg, 04/16/21 3:06:00 EST, Dry Weight Start Date: 06/11/21 Status: Ordered spironolactone 25 mg oral tablet 1, tablet, By Mouth, Daily, # 28 tablet, Refills 2, Tot. Refills 2, 08/12/21 13:46:00 EDT, Route toPharmacy Electronically, [facility]/pharmacy #[id number], 183, cm, 08/12/21 12:05:00 EDT, Height, 71.3, kg, 08/08/21 0:23:00 EDT, Dry Weight Start Date: 08/12/21 Status: Ordered sucralfate 1 gm oral tablet 1, tablet, By Mouth, 3 times a day before meals, AND BEDTIME., # 112 tablet, Refills 2, Tot. Refills 2, 08/12/21 13:47:00 EDT, Route to Pharmacy Electronically, [facility]/pharmacy #[id number], 183, cm, 08/12/21 12:05:00 EDT, Height, 71.3, kg, 08/08/21 0:23:00 EDT... Start Date: 08/12/21 Status: Ordered Vitamin B-12 1000 mcg oral tablet 1, tablet, By Mouth, Daily, # 28 tablet, Refills 5, Route to Pharmacy Electronically, [id number], 183, cm, 08/12/21 14:20:00 EDT, Height, 71.3, [...] lder Region(Confirmed) Active Shoulder pain(Confirmed) Active 1infrarenal 2016 2On 07/15/2010 underwent coronary artery bypass grafting x4 with left internal mammary anastomosed to the left anterior descending, the saphenous vein graft anastomosed to the obtuse marginal branch, the circumflex coronary artery another saphenous vein graft anastomosed to the proximal posterior descending branch and sequentially to the distal portion of the posterior descending branch for coronary artery disease by Rolando Rubin M.D. at [facility]. 3In the past; states this has resolved Social History Social History Type Response Smoking Status Never smoker entered on: 08/24/16 Sex
--- OUTSIDE RECORDS SUMMARY | 2023-11-18 12:34 | XMS_ITS | Continuity of Care Document ---
Author Organization [facility] Address [address] [place] [id number]- Care Team Providers Care Car Salter Name Role Phone Radha ODONNELL, Hannah Primary Care Physician [phone] [place] [facility] [place] 09/08/23 - 10/08/23 [facility] [address] [place] [id number]- Allergies, Adverse Reactions, Alerts Substance Reaction Severity [...] 09/22/23 19:43:00 EDT, Route to Pharmacy Electronically, [id number], 183, cm, 09/08/23 10:09:00 EDT, Height Start Date: 09/22/23 Status: Ordered amLODIPine 5 mg oral tablet 1 tablet, By Mouth, Daily, # 28 tablet, 5 Refills, Maintenance, 09/22/23 19:43:00 EDT, [id number], 183, cm, 09/08/23 10:09:00 EDT, Height Start Date: 09/22/23 Status: Ordered atorvastatin 40 mg oral tablet 1 tablet, By Mouth, Daily, # 90 tablet, 1 Refills, Maintenance, 07/01/23 15:53:00 EST, [id number], 183, cm, 05/10/23 11:59:00 EST, Height, 71.3, [...] tablet, 0 Refills, Maintenance, 09/20/23 14:28:00 EDT, [facility]/pharmacy#[id number], 1 tablet By Mouth Daily,x90 days, 183, cm, 09/08/23 10:09:00 EDT, Height Start Date: 09/20/23 Stop Date: 12/19/23 Status: Ordered carvedilol 12.5 mg oral tablet 1, tablet, By Mouth, 2 times a day, # 56 tablet, Refills 5, Maintenance, 09/22/23 19:44:00 EDT, Route to Pharmacy Electronically, [id number], 183, cm, 09/08/23 10:09:00 EDT, Height Start Date: 09/22/23 Status: Ordered cholecalciferol 50,000 intl units oral capsule 1 capsule = 50,000 International_Units, By Mouth, Every week, # 13 capsule, 3 Refills, Maintenance,03/19/23 15:28:00 EDT, Capsule, [facility]/pharmacy #[id number], Partial fill upon patient [...] 09/22/23 19:45:00 EDT, Route to Pharmacy Electronically, [id number], 183, cm, 09/08/23 10:09:00 EDT, Height Start Date: 09/22/23 Status: Ordered clopidogrel 75 mg oral tablet 1, tablet, By Mouth, Daily, # 28 tablet, Refills 5, Tot. Refills 5, Maintenance, 06/08/23 14:08:00 EST, Route to Pharmacy Electronically, [facility]/pharmacy #[id number], 183, cm, 05/10/23 11:59:00 EST, [...] a day, # 56 tablet, 6 Refills, [facility] STORE 83463, 183, cm, 08/12/21 14:20:00 EDT, Height, 71.3, kg, 08/08/21 0:23:00 EDT, Dry Weight Start Date: 09/26/21 Status: Ordered Eliquis 5 mg oral tablet See Instructions, TAKE 1 TABLET BY MOUTH TWICE A DAY, # 56 tablet, 6 Refills, Maintenance, 06/07/2409:23:00 EST, [facility]/pharmacy #[id number], 183, cm, 05/10/23 11:59:00 EST, Height, 71.3, kg, 08/08/21 0:23:00 EDT, Dry Weight Start Date: 06/07/23 Status: Ordered furosemide 40 mg oral tablet 1, tablet, By Mouth, 2 times a day, # 168 tablet, Refills 1, Tot. Refills 1, Maintenance, 06/30/23 12:20:00 EST, Route to Pharmacy Electronically, [facility]/pharmacy #[id number], 183, cm, 05/10/23 11:59:00 EST, [...] tablet, 5 Refills, Maintenance, 09/22/23 19:45:00 EDT, [facility] STORE 55911, 183, cm, 09/08/23 10:09:00 EDT, Height Start Date: 09/22/23 Status: Ordered isosorbide mononitrate 60 mg oral tablet, extended release 1 tablet, By Mouth, Daily in AM, # 90 tablet, 0 Refills, Maintenance, 09/20/23 14:28:00 EDT, [facility]/pharmacy #[id number], 183, cm, 09/08/23 10:09:00 EDT, Height Start Date: 09/20/23 Stop Date: 12/19/23 Status: Ordered Mylanta Maximum Strength oral suspension 5 mL, By Mouth, 4 times a day, PRN for control of stomach acid, # 200 mL, 1 Refills, Maintenance, 08/12/21 13:46:00 EDT, Suspension, [facility]/pharmacy #[id number], Partial fill upon patient request if the prescription is for a schedule II opioid drug., 5 mL By M... Start Date: 08/12/21 Status: Ordered Narcan 4 mg/0.1 mL nasal spray = 4 mg, Nares, Both, Once, may repeat every 2 to 3 minutes until patient responds, # 1 each, 0 Refills, Soft Stop, 05/14/23 10:41:00 EST, [facility]/pharmacy #[id number], Partial fill upon patient request if the prescription is for a schedule II opioid drug., 183,... Start Date: 05/14/23 Status: Ordered nitroglycerin 0.4 mg sublingual tablet 1 tablet = 0.4 mg, Sublingual, Every 5 minutes, PRN Chest Pain, # 25 tablet, 3 Refills, Maintenance, 08/24/19 15:40:00 EDT, [facility]/pharmacy #[id number], 183, cm, 05/25/19 15:06:00 EST, Height, 88.3, kg, 08/31/17 3:30:00 EDT, Dry Weight Start Date: 08/24/19 Stop Date: 12/22/19 Status: Ordered oxyCODONE 15 mg oral tablet 1 tablet = 15 mg, By Mouth, Every 4 hours, PRN as needed for pain, # 90 tablet, 0 Refills, Maintenance, 08/24/23 7:27:00 EDT, Tablet, [facility]/pharmacy #[id number], Partial fill upon patient [...] Start Date: 06/24/23 Status: Ordered Potassium Chloride ([id number]-[id number]-Fuv 10) 10 mEq oral tablet, extended release See Instructions, TAKE 2 TABLETS BY MOUTH EVERY MORNING AND TAKE 1 TABLET EVERY EVENING, # 270 tablet, 1 Refills, Maintenance, 07/01/23 15:52:00 EST, [facility]/pharmacy #[id number], 183, cm, 05/10/23 11:59:00 EST, Height, 71.3, kg, 08/08/21 0:23:00 EDT, Dry Weight Start Date: 07/01/23 Status: Ordered sertraline 100 mg oral tablet 1 tablet, By Mouth, Daily, # 84 tablet, 0 Refills, Maintenance, 09/01/23 11:58:00 EDT, [facility]/pharmacy#[id number], 183, cm, 05/10/23 11:59:00 EST, Height Start Date: 09/01/23 Stop Date: 11/24/23 Status: Ordered sertraline 100 mg oral tablet See Instructions, TAKE 1 TABLET BY MOUTH EVERY DAY, # 28 tablet, 5 Refills, Maintenance, 11/30/22 15:39:00 EDT, [facility], 183, cm, 10/08/22 16:18:00 EDT, Height, 71.3, kg, 08/08/21 0:23:00 EDT, Dry Weight Start Date: 11/30/22 Status: Ordered spironolactone 25 mg oral tablet 1, tablet, By Mouth, Daily, # 28 tablet, Refills 4, Maintenance, 06/24/23 7:44:00 EST, Route to Pharmacy Electronically, [facility] [id number], 183, cm, 05/10/23 11:59:00 EST, Height, 71.3, kg, 08/08/21 0:23:00 EDT, Dry Weight Start Date: 06/24/23 Status: Ordered sucralfate 1 gm oral tablet 1, tablet, By Mouth, 3 times a day before meals, AND BEDTIME., # 112 tablet, Refills 5, Maintenance, 02/04/23 16:32:00 EDT, Route to Pharmacy Electronically, [id number], 183, cm, 10/08/22 16:18:00 EDT, Height, 71.3, kg, 08/08/21 0:23:00 EDT, Dry... Start Date: 02/04/23 Status: Ordered Vitamin B-12 1000 mcg oral tablet 1, tablet, By Mouth, Daily, # 28 tablet, Refills 11, Tot. Refills 11, Maintenance, 04/21/23 18:37:00 EST, Route to Pharmacy Electronically, [facility]/pharmacy #[id number], 183, cm, 03/28/23 11:43:00 [...] disease by Rolando Rubin M.D. at [facility]. 4In the past; states this has resolved Social History Social History Type Response Smoking Status Never smoker entered on: 08/24/16 Sex Patient Care team information Care Team Personnel Name: Irish Samuel RN Position: [facility] RN Member Role: Primary Care Nurse Name: Ever Blanco RN Position: [facility] ED RN W/OE and Tasks Member Role: Primary Care Nurse Name: Mireya Ramsey Position: [facility] RN Supv Member Role: Primary Care Nurse Name: Rhea Betancur RN Position: [facility] SN RN Member Role: Primary Care Nurse Name: Hugo Ayala RN Position: [facility] RN Member Role: Primary Care Nurse Name: Lorna Faust RN Position: [facility] RN Member Role: Primary Care Nurse Name: Wilner Feliciano RN Position: [facility] SN RN Member Role: Primary Care Nurse Name: David Gonzalez MD Position: [facility] Renal MD Member Role: Lifetime Consulting Physician Address: Address: [address] [place] [address] [id number] [facility] [address]- Name: Hannah Garcia NP Position: [facility] PCO Associate Professional Member Role: PCP Address: Address: [address] [place] [address], [address] [place] [address]- [place] Name: Eduin Arias MD Position: [facility] Renal MD Member Role: Lifetime Consulting Physician Address: Address: [address] [place] [address], [facility] [address] [place] [address]- [place] Name: Ana Herrera RN Position: [facility] AMB Nurse Member Role: Primary Care Nurse Name: Carlos Montez RN Position: [facility] Outreach Member Role: Primary Care Nurse Name: Cadence Quach RN Position: [facility] OB RN Member Role: Primary Care Nurse Name: Maggy Tsang RN Position: [facility] RN Member Role: Primary Care Nurse Name: Keyla Keys RN Position: [facility] SN RN Member Role: Primary Care Nurse Name: Марина Guevara RN Position: [facility] SN RN Member Role: Primary Care Nurse Name: Lyn Helms RN Position: [facility] RN Member Role: Primary Care Nurse Name: Tatum Biswas RN Position: [facility] RN Member Role: Primary Care Nurse Name: Hugo Bateman RN Position: [facility] RN Member Role: Primary Care Nurse Name: Petros Levy RN Position: [facility] RN Member Role: Primary Care Nurse Name: Charly Burns RN Position: [facility] RN Member Role: Primary Care Nurse Name: Nilesh Bear RN Position: [facility] RN Member Role: Primary Care Nurse Name: Izabella Braun RN Position: [facility] RN Member Role: Primary Care Nurse Name: Hafsa Goyal RN Position: [facility] RN Member Role: Primary Care Nurse Name: Rosalio Jack RN Position: [facility] RN Member Role: Primary Care Nurse Name: Carmela Houser RN Position: [facility] SN RN Member Role: Primary Care Nurse Name: Michael Dickson RN Position: [facility] RN Member Role: Primary Care Nurse Name: Jessica Lema RN Position: [facility] RN Member Role: Primary Care Nurse Name: Phu Flynn MD Position: [facility] Renal MD Member Role: Lifetime Consulting Physician Address: Address: [address] [place] [address] [facility] [place] [address]- Name: Yesica Serna RN Position: [facility] OB RN Member Role: Primary Care Nurse Name: Jesusita Lou RN Position: [facility] OB RN Member Role: Primary Care Nurse Name: Husam Elizalde RN Position: S RN Member Role: Primary Care Nurse Name: Marshall Byrd RN Position: S RN Member Role: Primary Care Nurse Care Team Related Persons Name: DUTCH MAR Address: [place] [address] Name: ALL AYERS Address: [address] [place] [address] Name: ALL MANZANARES Address: [address] [place] [address] Name: CHRISTEN GRIMALDO Address: [address] [place] [address]
--- OUTSIDE RECORDS SUMMARY | 2023-11-18 12:34 | XMS_ITS | Continuity of Care Document ---
Author Organization [facility] Address [address] [place] [address]- Care Team Providers Care Assembler Truck Trailer Name Role Phone Radha JUNIOR FINANCIAL ANALYST, Hannah Primary Care Physician [phone] Encounter [facility] Date(s): 06/04/22 - 07/04/22 [facility] [address] [place] [id number]- Allergies, Adverse Reactions, Alerts Substance Reaction Severity [...] 04/13/22 11:43:00 EST, Route to Pharmacy Electronically, [id number], 183, cm, 03/16/22 8:31:00 EDT, Height, 71.3, kg, 08/08/21 0:23:00 EDT, Dry Weight Start Date: 04/13/22 Status: Ordered amLODIPine 5 mg oral tablet 1 tablet, By Mouth, Daily, # 28 tablet, 4 Refills, Maintenance, 04/13/22 11:43:00 EST, [id number], 183, cm, 03/16/22 8:31:00 EDT, Height, 71.3, kg, 08/08/21 0:23:00 EDT, Dry Weight Start Date: 04/13/22 Status: Ordered atorvastatin 40 mg oral tablet 1 tablet, By Mouth, Daily, # 28 tablet, 5 Refills, 12/23/21 11:53:00 EDT, [facility]/pharmacy #[id number], 183, cm, 10/20/21 10:31:00 EDT, Height, 71.3, kg, 08/08/21 0:23:00 EDT, Dry Weight Start Date: 12/23/21 Status: Ordered buPROPion 150 mg/24 hours (XL) oral tablet, extended release See Instructions, TAKE 1 TABLET BY MOUTH EVERY 24 HOURS, # 28 tablet, 5 Refills, 03/18/22 11:05:00 EDT, [facility]/pharmacy #[id number], 28, TAKE 1 TABLET BY MOUTH EVERY 24 HOURS, 183, cm, 03/16/22 8:31:00 EDT, Height, 71.3, kg, 08/08/21 0:23:00 EDT, Dry Weight Start Date: 03/18/22 Status: Ordered buPROPion 150 mg/24 hours (XL) oral tablet, extended release 1 tablet, By Mouth, Every 24 hours, # 28 tablet, 2 Refills, [id number], 28, TAKE 1 TABLET BY MOUTH EVERY 24 HOURS, 183, cm, 08/12/21 14:20:00 EDT, Height, 71.3, kg, 08/08/21 0:23:00 EDT, Dry Weight Start Date: 09/25/21 Status: Ordered carvedilol 12.5 mg oral tablet 1, tablet, By Mouth, 2 times a day, # 56 tablet, Refills 5, Route to Pharmacy Electronically, [id number], 183, cm, 05/04/21 3:09:00 EST, Height, 81.7, kg, 04/16/21 3:06:00 EST, Dry Weight Start Date: 07/07/21 Status: Ordered carvedilol 12.5 mg oral tablet See Instructions, TAKE 1 TABLET BY MOUTH TWICE A DAY, # 56 tablet, Refills 5, Tot. Refills 5, 03/18/22 11:05:00 EDT, Instructions Replace Required Details, Route to Pharmacy Electronically, [facility]/pharmacy #[id number], 183, cm, 03/16/22 8:31:00 EDT, Height, 71... Start Date: 03/18/22 Status: Ordered clopidogrel 75 mg oral tablet 1, tablet, By Mouth, Daily, # 28 tablet, Refills 5, Route to Pharmacy Electronically, [id number], 183, cm, 05/04/21 3:09:00 EST, Height, 81.7, kg, 04/16/21 3:06:00 EST, Dry Weight Start Date: 07/02/21 Status: Ordered clopidogrel 75 mg oral tablet 75 mg, 1, tablet, By Mouth, Daily, for 30 days, # 30 tablet, Refills 5, Tot. Refills 5, Physician Stop 09/14/22 13:18:00 EDT, 03/18/22 13:18:00 EDT, Route to Pharmacy Electronically, [facility]/pharmacy #[id number], 183, cm, 03/16/22 8:31:00 EDT, Height, 71.3, kg,... Start Date: 03/18/22 Stop Date: 09/14/22 Status: Ordered Eliquis 5 mg oral tablet See Instructions, TAKE 1 TABLET BY MOUTH TWICE A DAY, # 56 tablet, 6 Refills, Maintenance, 05/14/2216:30:00 EST, [facility] [id number], 183, cm, 03/16/22 8:31:00 EDT, Height, 71.3, kg, 08/08/21 0:23:00 EDT, Dry Weight Start Date: 05/14/22 Status: Ordered Eliquis 5 mg oral tablet 1 tablet, By Mouth, 2 times a day, # 56 tablet, 6 Refills, [id number], 183, cm, 08/12/21 14:20:00 EDT, Height, 71.3, kg, 08/08/21 0:23:00 EDT, Dry Weight Start Date: 09/26/21 Status: Ordered furosemide 40 mg oral tablet 1, tablet, By Mouth, 2 times a day, # 56 tablet, Refills 2, Maintenance, 04/13/22 11:44:00 EST, Route to Pharmacy Electronically, [facility], 183, cm, 03/16/22 8:31:00 EDT, Height, 71.3, kg, 08/08/21 0:23:00 EDT, Dry Weight Start Date: 04/13/22 Status: Ordered hydrALAZINE 50 mg oral tablet 1 tablet, By Mouth, 3 times a day, # 84 tablet, 1 Refills, Maintenance, 06/09/22 9:19:00 EST, [facility], 183, cm, 03/16/22 8:31:00 EDT, Height, 71.3, kg, 08/08/21 0:23:00 EDT, Dry Weight Start Date: 06/09/22 Status: Ordered isosorbide mononitrate 60 mg oral tablet, extended release 1 tablet, By Mouth, Daily in AM, # 28 tablet, 4 Refills, Maintenance, 04/13/22 11:43:00 EST, [id number], 183, cm, 03/16/22 8:31:00 EDT, Height, 71.3, kg, 08/08/21 0:23:00 EDT, Dry Weight Start Date: 04/13/22 Status: Ordered lidocaine 0.5% topical gel 1 application, Topically, 3 times a day, for 30 days, # 240 Gm, 1 Refills, Acute 07/22/22 9:46:00 EST, 05/23/22 9:46:00 EST, Gel, [facility]/pharmacy #[id number], Partial fill upon patient request if the prescription is for a schedule II opioid drug., 1 applicatio... Start Date: 05/23/22 Stop Date: 07/22/22 Status: Ordered Mylanta Maximum Strength oral suspension 5 mL, By Mouth, 4 times a day, PRN for control of stomach acid, # 200 mL, 1 Refills, Maintenance, 08/12/21 13:46:00 EDT, Suspension, [facility]/pharmacy #[id number], Partial fill upon patient request if the prescription is for a schedule II opioid drug., 5 mL By M... Start Date: 08/12/21 Status: Ordered nitroglycerin 0.4 mg sublingual tablet 1 tablet = 0.4 mg, Sublingual, Every 5 minutes, PRN Chest Pain, # 25 tablet, 3 Refills, Maintenance, 08/24/19 15:40:00 EDT, [facility]/pharmacy #[id number], 183, cm, 05/25/19 15:06:00 EST, Height, 88.3, kg, 08/31/17 3:30:00 EDT, Dry Weight Start Date: 4/10/20 Stop Date: 12/22/19 Status: Ordered oxyCODONE 30 mg oral tablet 2 tablet = 60 mg, By Mouth, Every 3 hours, FIBER TECHNICIAN checked. fill on 07/05/22, # 224 tablet, 0 Refills, Acute 05/15/23 11:36:00 EST, 07/02/22 17:19:00 EST, [facility]/pharmacy #[id number], may partial fill upon request;, 183, cm, 03/16/22 8:31:00 EDT, Height, 71.3, kg,... Start Date: 07/02/22 Stop Date: 05/15/23 Status: Ordered pantoprazole 40 mg oral delayed release tablet 1 tablet, By Mouth, Daily, for 30 days, # 30 tablet, 3 Refills, Physician Stop 07/16/22 13:20:00 EST, 03/18/22 13:20:00 EDT, 183, cm, 03/16/22 8:31:00 EDT, Height, 71.3, kg, 08/08/21 0:23:00 EDT, DryWeight Start Date: 03/18/22 Stop Date: 07/16/22 Status: Ordered Potassium Chloride ([id number] 10) 10 mEq oral tablet, extended release See Instructions, TAKE 2 TABLETS BY MOUTH EVERY MORNING AND TAKE 1 TABLET EVERY EVENING, # 84 tablet, 2 Refills, Maintenance, 06/09/22 9:19:00 EST, [id number], 183, cm, 03/16/22 8:31:00 EDT, Height, 71.3, kg, 08/08/21 0:23:00 EDT, Dry Weight Start Date: 06/09/22 Status: Ordered sertraline 100 mg oral tablet 1 tablet, By Mouth, Daily, # 28 tablet, 5 Refills, Maintenance, 06/09/22 8:26:00 EST, [id number], 183, cm, 03/16/22 8:31:00 EDT, Height, 71.3, kg, 08/08/21 0:23:00 EDT, Dry Weight Start Date: 06/09/22 Status: Ordered spironolactone 25 mg oral tablet 1, tablet, By Mouth, Daily, for 30 days, # 30 tablet, Refills 3, Tot. Refills 3, Physician Stop 07/16/22 13:20:00 EST, 03/18/22 13:20:00 EDT, Route to Pharmacy Electronically, [facility]/pharmacy #[id number], 183, cm, 03/16/22 8:31:00 EDT, Height, 71.3, kg, ... Start Date: 03/18/22 Stop Date: 07/16/22 Status: Ordered sucralfate 1 gm oral tablet 1, tablet, By Mouth, 3 times a day before meals, AND BEDTIME., # 112 tablet, Refills 2, Maintenance, 05/18/22 8:37:00 EST, Route to Pharmacy Electronically, [id number], 183, cm, 03/16/22 8:31:00EDT, Height, 71.3, kg, 08/08/21 0:23:00 EDT, Dry We... Start Date: 05/18/22 Status: Ordered Vitamin B-12 1000 mcg oral tablet See Instructions, TAKE 1 TABLET BY MOUTH EVERY DAY, # 28 tablet, Refills 5, Maintenance, 05/14/22 16:30:00 EST, Instructions Replace Required Details, Route to Pharmacy Electronically, [id number], 183, cm, 03/16/22 8:31:00 EDT, Height, 71.3, kg,... Start Date: 05/14/22 Status: Ordered Vitamin B-12 1000 mcg oral tablet 1, tablet, By Mouth, Daily, # 28 tablet, Refills 5, Route to Pharmacy Electronically, [facility] 67[facility], 183, cm, 08/12/21 14:20:00 EDT, Height, 71.3, [...] artery disease by Rolando Rubin M.D. at [facility]. 4In the past; states this has resolved Social History Social History Type Response Smoking Status Never smoker entered on: 08/24/16 Sex Patient Care team information Care Team Personnel Name: Irish Samuel RN Position: [facility] RN Member Role: Primary Care Nurse Name: Mireya Ramsey Position: [facility] RN Supv Member Role: Primary Care Nurse Name: Rhea Betancur RN Position: [facility] SN RN Member Role: Primary Care Nurse Name: Hugo Ayala RN Position: [facility] RN Member Role: Primary Care Nurse Name: Lorna Faust RN Position: [facility] RN Member Role: Primary Care Nurse Name: Wilner Feliciano RN Position: [facility] RN Supv Member Role: Primary Care Nurse Name: David Gonzalez MD Position: [facility] Renal MD Member Role: Lifetime Consulting Physician Address: Address: [address] [place] [address], [address] [facility] [place] [address]- [place] Name: Hannah Garcia NP Position: [facility] PCO Associate Professional Member Role: PCP Address: Address: [address] [place] [address], [address] [place] [address]- [place] Name: Eduin Arias MD Position: [facility] Physician (General Medicine) Member Role: Lifetime Consulting Physician Address: Address: [address] [place] [address], [address] [place] [address]- [place] Name: Ana Herrera RN Position: [facility] RN Member Role: Primary Care Nurse Name: Carlos Montez RN Position: [facility] RN Member Role: Primary Care Nurse Name: Cadence Quach RN Position: [facility] OB RN Member Role: Primary Care Nurse Name: Maggy Tsang RN Position: [facility] RN Member Role: Primary Care Nurse Name: Keyla Keys RN Position: [facility] SN RN Member Role: Primary Care Nurse Name: Марина Guevara RN Position: [facility] RN Member Role: Primary Care Nurse Name: Lyn Helms RN Position: [facility] RN Member Role: Primary Care Nurse Name: Tatum Biswas RN Position: [facility] RN Member Role: Primary Care Nurse Name: Hugo Bateman RN Position: [facility] RN Member Role: Primary Care Nurse Name: Petros Levy RN Position: [facility] RN Member Role: Primary Care Nurse Name: Izabella Braun RN Position: [facility] RN Member Role: Primary Care Nurse Name: Lyndsay King RN Position: [facility] RN Member Role: Primary Care Nurse Name: Felicia Kerr RN Position: [facility] RN Member Role: Primary Care Nurse Name: Hasfa Goyal RN Position: [facility] RN Member Role: Primary Care Nurse Name: Rosalio Jack RN Position: [facility] RN Member Role: Primary Care Nurse Name: Geovanna Hill RN Position: [facility] RN Member Role: Primary Care Nurse Name: Carmela Houser RN Position: [facility] SN RN Member Role: Primary Care Nurse Name: Michael Dickson RN Position: [facility] RN Member Role: Primary Care Nurse Name: Jessica Lema RN Position: [facility] RN Member Role: Primary Care Nurse Name: Phu Flynn MD Position: [facility] Renal MD Member Role: Lifetime Consulting Physician Address: Address: [address] [place] [address] [facility] [address] Name: Yesica Serna RN Position: [facility] OB RN Member Role: Primary Care Nurse Name: Jesusita Lou RN Position: [facility] OB RN Member Role: Primary Care Nurse Name: Karen Quach RN Position: [facility] PCO w/OE and EZ Script Member Role: Primary Care Nurse Name: Marshall Byrd RN Position: [facility] RN Member Role: Primary Care Nurse Care Team Related Persons Name: DUTCH MAR Address: [place] [address] Name: ALL AYERS Address: home [address] [place] [id number] Name: ALL MANZANARES Address: [address] [place] [address] Name: CHRISTEN GRIMALDO Address: [address] [place] [address]
--- OUTSIDE RECORDS SUMMARY | 2023-11-18 12:34 | XMS_ITS | Continuity of Care Document ---
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 Name Role Phone Radha ODONNELL, Hannah Primary Care Physician Encounter [facility] Date(s): 04/26/22 - 05/26/22 [facility] Adult [address] [place] [phone]- Allergies, Adverse Reactions, Alerts Substance Reaction Severity [...] 04/13/22 11:43:00 EST, Route to Pharmacy Electronically, [id number], 183, cm, 03/16/22 8:31:00 EDT, Height, 71.3, kg, 08/08/21 0:23:00 EDT, Dry Weight Start Date: 04/13/22 Status: Ordered amLODIPine 5 mg oral tablet 1 tablet, By Mouth, Daily, # 28 tablet, 4 Refills, Maintenance, 04/13/22 11:43:00 EST, [id number], 183, cm, 03/16/22 8:31:00 EDT, Height, 71.3, kg, 08/08/21 0:23:00 EDT, Dry Weight Start Date: 04/13/22 Status: Ordered atorvastatin 40 mg oral tablet 1 tablet, By Mouth, Daily, # 28 tablet, 5 Refills, 12/23/21 11:53:00 EDT, [facility]/pharmacy #[id number], 183, cm, 10/20/21 10:31:00 EDT, Height, 71.3, kg, 08/08/21 0:23:00 EDT, Dry Weight Start Date: 12/23/21 Status: Ordered buPROPion 150 mg/24 hours (XL) oral tablet, extended release See Instructions, TAKE 1 TABLET BY MOUTH EVERY 24 HOURS, # 28 tablet, 5 Refills, 03/18/22 11:05:00 EDT, [facility]/pharmacy #[id number], 28, TAKE 1 TABLET BY MOUTH EVERY 24 HOURS, 183, cm, 03/16/22 8:31:00 EDT, Height, 71.3, kg, 08/08/21 0:23:00 EDT, Dry Weight Start Date: 03/18/22 Status: Ordered buPROPion 150 mg/24 hours (XL) oral tablet, extended release 1 tablet, By Mouth, Every 24 hours, # 28 tablet, 2 Refills, [id number], 28, TAKE 1 TABLET BY MOUTH EVERY 24 HOURS, 183, cm, 08/12/21 14:20:00 EDT, Height, 71.3, kg, 08/08/21 0:23:00 EDT, Dry Weight Start Date: 09/25/21 Status: Ordered carvedilol 12.5 mg oral tablet 1, tablet, By Mouth, 2 times a day, # 56 tablet, Refills 5, Route to Pharmacy Electronically, [facility] [id number], 183, cm, 05/04/21 3:09:00 EST, Height, 81.7, kg, 04/16/21 3:06:00 EST, Dry Weight Start Date: 07/07/21 Status: Ordered carvedilol 12.5 mg oral tablet See Instructions, TAKE 1 TABLET BY MOUTH TWICE A DAY, # 56 tablet, Refills 5, Tot. Refills 5, 03/18/22 11:05:00 EDT, Instructions Replace Required Details, Route to Pharmacy Electronically, [facility]/pharmacy #[id number], 183, cm, 03/16/22 8:31:00 EDT, Height, 71... Start Date: 03/18/22 Status: Ordered clopidogrel 75 mg oral tablet 1, tablet, By Mouth, Daily, # 28 tablet, Refills 5, Route to Pharmacy Electronically, [id number], 183, cm, 05/04/21 3:09:00 EST, Height, 81.7, kg, 04/16/21 3:06:00 EST, Dry Weight Start Date: 07/02/21 Status: Ordered clopidogrel 75 mg oral tablet 75 mg, 1, tablet, By Mouth, Daily, for 30 days, # 30 tablet, Refills 5, Tot. Refills 5, Physician Stop 09/14/22 13:18:00 EDT, 03/18/22 13:18:00 EDT, Route to Pharmacy Electronically, [facility]/pharmacy #[id number], 183, cm, 03/16/22 8:31:00 EDT, Height, 71.3, kg,... Start Date: 03/18/22 Stop Date: 09/14/22 Status: Ordered Eliquis 5 mg oral tablet See Instructions, TAKE 1 TABLET BY MOUTH TWICE A DAY, # 56 tablet, 6 Refills, Maintenance, 05/14/2216:30:00 EST, [facility], 183, cm, 03/16/22 8:31:00 EDT, Height, 71.3, kg, 08/08/21 0:23:00 EDT, Dry Weight Start Date: 05/14/22 Status: Ordered Eliquis 5 mg oral tablet 1 tablet, By Mouth, 2 times a day, # 56 tablet, 6 Refills, [facility] 439[facility], 183, cm, 08/12/21 14:20:00 EDT, Height, 71.3, kg, 08/08/21 0:23:00 EDT, Dry Weight Start Date: 09/26/21 Status: Ordered furosemide 40 mg oral tablet 1, tablet, By Mouth, 2 times a day, # 56 tablet, Refills 2, Maintenance, 04/13/22 11:44:00 EST, Route to Pharmacy Electronically, [id number], 183, cm, 03/16/22 8:31:00 EDT, Height, 71.3, kg, 08/08/21 0:23:00 EDT, Dry Weight Start Date: 04/13/22 Status: Ordered hydrALAZINE 50 mg oral tablet 1 tablet, By Mouth, 3 times a day, # 84 tablet, 1 Refills, Maintenance, 04/13/22 12:20:00 EST, [facility], 183, cm, 03/16/22 8:31:00 EDT, Height, 71.3, kg, 08/08/21 0:23:00 EDT, Dry Weight Start Date: 04/13/22 Status: Ordered isosorbide mononitrate 60 mg oral tablet, extended release 1 tablet, By Mouth, Daily in AM, # 28 tablet, 4 Refills, Maintenance, 04/13/22 11:43:00 EST, [facility], 183, cm, 03/16/22 8:31:00 EDT, Height, 71.3, kg, 08/08/21 0:23:00 EDT, Dry Weight Start Date: 04/13/22 Status: Ordered lidocaine 0.5% topical gel 1 application, Topically, 3 times a day, for 30 days, # 240 Gm, 1 Refills, Acute 07/22/22 9:46:00 EST, 05/23/22 9:46:00 EST, Gel, [facility]/pharmacy #[id number], Partial fill upon patient [...] 60 mg, By Mouth, Every 3 hours, STUDENT ACCOUNTS COORDINATOR checked. fill on 05/24/22, # 224 tablet, 0 Refills, Acute 05/14/23 10:41:00 EST, 05/21/22 12:40:00 EST, [facility]/pharmacy #[id number], may partial fill upon request;, 183, cm, 03/16/22 8:31:00 EDT, Height, 71.3, kg,... Start Date: 05/21/22 Stop Date: 05/14/23 Status: Ordered pantoprazole 40 mg oral delayed release tablet 1 tablet, By Mouth, Daily, for 30 days, # 30 tablet, 3 Refills, Physician Stop 07/16/22 13:20:00 EST, 03/18/22 13:20:00 EDT, 183, cm, 03/16/22 8:31:00 EDT, Height, 71.3, kg, 08/08/21 0:23:00 EDT, DryWeight Start Date: 03/18/22 Stop Date: 07/16/22 Status: Ordered Potassium Chloride (Obb-Ykay-Oyu 10) 10 mEq oral tablet, extended release See Instructions, TAKE 2 TABLETS BY MOUTH EVERY MORNING AND TAKE 1 TABLET EVERY EVENING, # 84 tablet, 2 Refills, 03/18/22 13:18:00 EDT, [facility]/pharmacy #[id number], 183, cm, 03/16/22 8:31:00 EDT, Height, 71.3, kg, 08/08/21 0:23:00 EDT, Dry Weight Start Date: 03/18/22 Status: Ordered sertraline 100 mg oral tablet 1 tablet, By Mouth, Daily, # 28 tablet, 5 Refills, [facility] 56[facility], 183, cm, 10/20/21 10:31:00 EDT,Height, 71.3, kg, 08/08/21 0:23:00 EDT, Dry Weight Start Date: 11/30/21 Status: Ordered spironolactone 25 mg oral tablet 1, tablet, By Mouth, Daily, for 30 days, # 30 tablet, Refills 3, Tot. Refills 3, Physician Stop 07/16/22 13:20:00 EST, 03/18/22 13:20:00 EDT, Route to Pharmacy Electronically, [facility]/pharmacy #[id number], 183, cm, 03/16/22 8:31:00 EDT, Height, 71.3, kg, ... Start Date: 03/18/22 Stop Date: 07/16/22 Status: Ordered sucralfate 1 gm oral tablet 1, tablet, By Mouth, 3 times a day before meals, AND BEDTIME., # 112 tablet, Refills 2, Maintenance, 05/18/22 8:37:00 EST, Route to Pharmacy Electronically, [facility], 183, cm, 03/16/22 8:31:00EDT, Height, 71.3, kg, 08/08/21 0:23:00 EDT, Dry We... Start Date: 05/18/22 Status: Ordered Vitamin B-12 1000 mcg oral tablet See Instructions, TAKE 1 TABLET BY MOUTH EVERY DAY, # 28 tablet, Refills 5, Maintenance, 05/14/22 16:30:00 EST, Instructions Replace Required Details, Route to Pharmacy Electronically, [facility] 47[facility], 183, cm, 03/16/22 8:31:00 EDT, Height, 71.3, kg,... Start Date: 05/14/22 Status: Ordered Vitamin B-12 1000 mcg oral tablet 1, tablet, By Mouth, Daily, # 28 tablet, Refills 5, Route to Pharmacy Electronically, [facility], 183, cm, 08/12/21 14:20:00 EDT, Height, 71.3, [...] artery disease by Rolando Rubin M.D. at [facility]. 4In the past; states this has resolved Social History Social History Type Response Smoking Status Never smoker entered on: 08/24/16 Sex Patient Care team information Care Team Personnel Name: Irish Samuel RN Position: [facility] RN Member Role: Primary Care Nurse Name: Mireya Ramsey Position: [facility] RN Supv Member Role: Primary Care Nurse Name: Rhea Betancur RN Position: [facility] SN RN Member Role: Primary Care Nurse Name: Hugo Ayala RN Position: [facility] RN Member Role: Primary Care Nurse Name: Lorna Faust RN Position: [facility] RN Member Role: Primary Care Nurse Name: Wilner Feliciano RN Position: [facility] RN Supv Member Role: Primary Care Nurse Name: David Gonzalez MD Position: [facility] Renal MD Member Role: Lifetime Consulting Physician Address: Address: [address] [place] [address], [address] [facility] [place] [address]- Name: Hannah Garcia NP Position: [facility] PCO Associate Professional Member Role: PCP Address: Address: [address] [place] [address], [address] [place] [address]- [place] Name: Eduin Arias MD Position: [facility] Physician (General Medicine) Member Role: Lifetime Consulting Physician Address: Address: [address] [place] [address], [address] [place] [address]- [place] Name: Ana Herrera RN Position: [facility] RN Member Role: Primary Care Nurse Name: Carlos Montez RN Position: [facility] RN Member Role: Primary Care Nurse Name: Cadence Quach RN Position: [facility] OB RN Member Role: Primary Care Nurse Name: Maggy Tsang RN Position: [facility] RN Member Role: Primary Care Nurse Name: Keyla Keys RN Position: [facility] SN RN Member Role: Primary Care Nurse Name: Марина Guevara RN Position: [facility] RN Member Role: Primary Care Nurse Name: Lyn Helms RN Position: [facility] RN Member Role: Primary Care Nurse Name: Tatum Biswas RN Position: [facility] RN Member Role: Primary Care Nurse Name: Hugo Bateman RN Position: [facility] RN Member Role: Primary Care Nurse Name: Petros Levy RN Position: [facility] RN Member Role: Primary Care Nurse Name: Izabella Braun RN Position: [facility] RN Member Role: Primary Care Nurse Name: Lyndsay King RN Position: [facility] RN Member Role: Primary Care Nurse Name: Felicia Kerr RN Position: [facility] RN Member Role: Primary Care Nurse Name: Hafsa Goyal RN Position: [facility] RN Member Role: Primary Care Nurse Name: Rosalio Jack RN Position: [facility] RN Member Role: Primary Care Nurse Name: Geovanna Hill RN Position: [facility] RN Member Role: Primary Care Nurse Name: Carmela Houser RN Position: [facility] SN RN Member Role: Primary Care Nurse Name: Michael Dickson RN Position: [facility] RN Member Role: Primary Care Nurse Name: Jessica Lema RN Position: [facility] RN Member Role: Primary Care Nurse Name: Phu Flynn MD Position: [facility] Renal MD Member Role: Lifetime Consulting Physician Address: Address: [address] [place] [address] [facility] [address] Name: Yesica Serna RN Position: [facility] OB RN Member Role: Primary Care Nurse Name: Jesusita Lou RN Position: [facility] OB RN Member Role: Primary Care Nurse Name: Karen Quach RN Position: [facility] PCO w/OE and EZ Script Member Role: Primary Care Nurse Name: Marshall Byrd RN Position: [facility] RN Member Role: Primary Care Nurse Care Team Related Persons Name: DUTCH MAR Address: [place] [address] Name: JOSEALL Xiao Address: [address] [place] [address] Name: ALL MANZANARES Address: [address] [place] [address] Name: CHRISTEN GRIMALDO Address: [address] [place] [address]
--- OUTSIDE RECORDS SUMMARY | 2023-11-18 12:34 | XMS_ITS | Continuity of Care Document ---
Author Organization [facility] Address [address] [place] [address]- Care Team Providers Care Instructional Support Assistant Name Role Phone Radha ODONNELL, Hannah Primary Care Physician Encounter [facility] Date(s): 06/06/23 - 07/06/23 [facility] [address] [place] [id number]- Allergies, Adverse Reactions, Alerts Substance Reaction Severity [...] 06/30/23 12:58:00 EST, Route to Pharmacy Electronically, [facility]/pharmacy #[id number], 183, cm, 05/10/23 11:59:00 EST, Height, 71.3, kg, 08/08/21 0:23:00 EDT, Dry Weight Start Date: 06/30/23 Status: Ordered amLODIPine 5 mg oral tablet 1 tablet, By Mouth, Daily, # 84 tablet, 0 Refills, Maintenance, 06/30/23 12:58:00 EST, [facility]/pharmacy#[id number], 183, cm, 05/10/23 11:59:00 EST, Height, 71.3, kg, 08/08/21 0:23:00 EDT, Dry Weight Start Date: 06/30/23 Status: Ordered atorvastatin 40 mg oral tablet 1 tablet, By Mouth, Daily, # 90 tablet, 1 Refills, Maintenance, 07/01/23 15:53:00 EST, [facility]/pharmacy#[id number], 183, cm, 05/10/23 11:59:00 EST, Height, [...] tablet, 5 Refills, Maintenance, 04/21/23 18:36:00 EST, [facility]/pharmacy#[id number], 1 tablet By Mouth Daily,x28 days, 183, cm, 03/28/23 11:43:00 EST, Height, 71.3, kg, :23:00 EDT, Dry Weight Start Date: 04/21/23 Stop Date: 10/06/23 Status: Ordered carvedilol 12.5 mg oral tablet 1, tablet, By Mouth, 2 times a day, # 180 tablet, Refills 0, Tot. Refills 0, Maintenance, 07/01/23 15:49:00 EST, Route to Pharmacy Electronically, [facility]/pharmacy #[id number], 183, cm, 05/10/23 11:59:00 EST, Height, 71.3, kg, 08/08/21 0:23:00 EDT, Dry Weight Start Date: 07/01/23 Status: Ordered cholecalciferol 50,000 intl units oral capsule 1 capsule = 50,000 International_Units, By Mouth, Every week, # 13 capsule, 3 Refills, Maintenance,03/19/23 15:28:00 EDT, Capsule, [facility]/pharmacy #[id number], Partial fill upon patient request if the prescription is for a schedule II opioid drug., 183, cm, 0... Start Date: 03/19/23 Stop Date: 03/13/24 Status: Ordered cholecalciferol 50,000 intl units oral capsule 1 capsule = 50,000 International_Units, By Mouth, Every 7 days, # 13 capsule, 3 Refills, Maintenance, 03/20/23 8:29:00 EST, Capsule, [facility]/pharmacy #[id number], Partial fill upon patient request, 183, cm, 10/08/22 16:18:00 EDT, Height, 71.3, kg, 08/08/21 0:23... Start Date: 03/20/23 Stop Date: 03/14/24 Status: Ordered clopidogrel 75 mg oral tablet 1, tablet, By Mouth, Daily, # 28 tablet, Refills 5, Tot. Refills 5, Maintenance, 06/08/23 14:08:00 EST, Route to Pharmacy Electronically, [facility]/pharmacy #[id number], 183, cm, 05/10/23 11:59:00 EST, [...] a day, # 56 tablet, 6 Refills, [facility] [id number], 183, cm, 08/12/21 14:20:00 EDT, Height, 71.3, kg, 08/08/21 0:23:00 EDT, Dry Weight Start Date: 09/26/21 Status: Ordered Eliquis 5 mg oral tablet See Instructions, TAKE 1 TABLET BY MOUTH TWICE A DAY, # 56 tablet, 6 Refills, Maintenance, 06/07/2409:23:00 EST, [facility]/pharmacy #[id number], 183, cm, 05/10/23 11:59:00 EST, Height, 71.3, kg, 08/08/21 0:23:00 EDT, Dry Weight Start Date: 06/07/23 Status: Ordered furosemide 40 mg oral tablet 1, tablet, By Mouth, 2 times a day, # 168 tablet, Refills 1, Tot. Refills 1, Maintenance, 06/30/23 12:20:00 EST, Route to Pharmacy Electronically, [facility]/pharmacy #[id number], 183, cm, 05/10/23 11:59:00 EST, [...] tablet, 0 Refills, Maintenance, 07/01/23 15:48:00 EST, [facility]/pharmacy #[id number], 183, cm, 05/10/23 11:59:00 EST, Height, 71.3, kg, 08/08/21 0:23:00 EDT, Dry Weight Start Date: 07/01/23 Status: Ordered isosorbide mononitrate 60 mg oral tablet, extended release 1 tablet, By Mouth, Daily in AM, # 28 tablet, 5 Refills, Maintenance, 04/21/23 18:37:00 EST, [facility]/pharmacy #[id number], 183, cm, 03/28/23 11:43:00 EST, Height, 71.3, kg, 08/08/21 0:23:00 EDT, Dry Weight Start Date: 04/21/23 Stop Date: 10/06/23 Status: Ordered Mylanta Maximum Strength oral suspension 5 mL, By Mouth, 4 times a day, PRN for control of stomach acid, # 200 mL, 1 Refills, Maintenance, 08/12/21 13:46:00 EDT, Suspension, [facility]/pharmacy #[id number], Partial fill upon patient request if the prescription is for a schedule II opioid drug., 5 mL By M... Start Date: 08/12/21 Status: Ordered Narcan 4 mg/0.1 mL nasal spray = 4 mg, Nares, Both, Once, may repeat every 2 to 3 minutes until patient responds, # 1 each, 0 Refills, Soft Stop, 05/14/23 10:41:00 EST, [facility]/pharmacy #[id number], Partial fill upon patient request if the prescription is for a schedule II opioid drug., 183,... Start Date: 05/14/23 Status: Ordered nitroglycerin 0.4 mg sublingual tablet 1 tablet = 0.4 mg, Sublingual, Every 5 minutes, PRN Chest Pain, # 25 tablet, 3 Refills, Maintenance, 08/24/19 15:40:00 EDT, [facility]/pharmacy #[id number], 183, cm, 05/25/19 15:06:00 EST, Height, 88.3, kg, 08/31/17 3:30:00 EDT, Dry Weight Start Date: 08/24/19 Stop Date: 12/22/19 Status: Ordered oxyCODONE 30 mg oral tablet 1-2 tablet, By Mouth, Every 3 hours, # 70 tablet, 0 Refills, Maintenance, 07/06/23 18:13:00 EST, [facility]/pharmacy #[id number], may partial fill upon request;, 183, cm, 05/10/23 11:59:00 EST, Height, 71.3, kg, 08/08/21 0:23:00 EDT, Dry Weight Start Date: 07/06/23 Stop Date: 07/13/23 Status: Ordered pantoprazole 40 mg oral delayed release tablet 1 tablet, By Mouth, Daily, # 28 tablet, 4 Refills, Maintenance, 06/24/23 7:44:00 EST, 183, cm, 05/10/23 11:59:00 EST, Height, 71.3, kg, 08/08/21 0:23:00 EDT, Dry Weight Start Date: 06/24/23 Status: Ordered Potassium Chloride (Jgl-Rfsf-Lfh 10) 10 mEq oral tablet, extended release See Instructions, TAKE 2 TABLETS BY MOUTH EVERY MORNING AND TAKE 1 TABLET EVERY EVENING, # 270 tablet, 1 Refills, Maintenance, 07/01/23 15:52:00 EST, [facility]/pharmacy #[id number], 183, cm, 05/10/23 11:59:00 EST, Height, 71.3, kg, 08/08/21 0:23:00 EDT, Dry Weight Start Date: 07/01/23 Status: Ordered sertraline 100 mg oral tablet 1 tablet, By Mouth, Daily, # 84 tablet, 0 Refills, Maintenance, 06/30/23 12:22:00 EST, [facility]/pharmacy#[id number], 183, cm, 05/10/23 11:59:00 EST, Height, 71.3, kg, 08/08/21 0:23:00 EDT, Dry Weight Start Date: 06/30/23 Stop Date: 09/22/23 Status: Ordered sertraline 100 mg oral tablet See Instructions, TAKE 1 TABLET BY MOUTH EVERY DAY, # 28 tablet, 5 Refills, Maintenance, 11/30/22 15:39:00 EDT, [facility], 183, cm, 10/08/22 16:18:00 EDT, Height, 71.3, kg, 08/08/21 0:23:00 EDT, Dry Weight Start Date: 11/30/22 Status: Ordered spironolactone 25 mg oral tablet 1, tablet, By Mouth, Daily, # 28 tablet, Refills 4, Maintenance, 06/24/23 7:44:00 EST, Route to Pharmacy Electronically, [id number], 183, cm, 05/10/23 11:59:00 EST, Height, 71.3, kg, 08/08/21 0:23:00 EDT, Dry Weight Start Date: 06/24/23 Status: Ordered sucralfate 1 gm oral tablet 1, tablet, By Mouth, 3 times a day before meals, AND BEDTIME., # 112 tablet, Refills 5, Maintenance, 02/04/23 16:32:00 EDT, Route to Pharmacy Electronically, [id number], 183, cm, 10/08/22 16:18:00 EDT, Height, 71.3, kg, 08/08/21 0:23:00 EDT, Dry... Start Date: 02/04/23 Status: Ordered Vitamin B-12 1000 mcg oral tablet 1, tablet, By Mouth, Daily, # 28 tablet, Refills 11, Tot. Refills 11, Maintenance, 04/21/23 18:37:00 EST, Route to Pharmacy Electronically, [facility]/pharmacy #[id number], 183, cm, 03/28/23 11:43:00 EST, [...] Rubin M.D. at [facility]. 4In the past; states this has resolved Social History Social History Type Response Smoking Status Never smoker entered on: 08/24/16 Sex Patient Care team information Care Team Personnel Name: Irish Samuel RN Position: [facility] RN Member Role: Primary Care Nurse Name: Mireya Ramsey Position: [facility] RN Supv Member Role: Primary Care Nurse Name: Rhea Betancur RN Position: [facility] RN Member Role: Primary Care Nurse Name: Hugo Ayala RN Position: [facility] RN Member Role: Primary Care Nurse Name: Lorna Faust RN Position: [facility] RN Member Role: Primary Care Nurse Name: David Gonzalez MD Position: [facility] Renal MD Member Role: Lifetime Consulting Physician Address: Address: [address] [place] [address] [address] [facility] [address]- [place] Name: Hannah Garcia NP Position: [facility] PCO Associate Professional Member Role: PCP Address: Address: [address] [facility], [address]rd [place] [address]- [place] Name: Eduin Arias MD Position: [facility] Renal MD Member Role: Lifetime Consulting Physician Address: Address: [address] [place] [address], [address] [place] [address]- [place] Name: Ana Herrera RN Position: [facility] AMB Nurse Member Role: Primary Care Nurse Name: Carlos Montez RN Position: [facility] Outreach Member Role: Primary Care Nurse Name: Cadence Quach RN Position: [facility] OB RN Member Role: Primary Care Nurse Name: Maggy Tsang RN Position: [facility] RN Member Role: Primary Care Nurse Name: Keyla Keys RN Position: [facility] SN RN Member Role: Primary Care Nurse Name: Марина Guevara RN Position: [facility] SN RN Member Role: Primary Care Nurse Name: Lyn Helms RN Position: [facility] RN Member Role: Primary Care Nurse Name: Tatum Biswas RN Position: [facility] RN Member Role: Primary Care Nurse Name: Hugo Bateman RN Position: [facility] RN Member Role: Primary Care Nurse Name: Petros Levy RN Position: [facility] RN Member Role: Primary Care Nurse Name: Izabella Braun RN Position: [facility] RN Member Role: Primary Care Nurse Name: Lyndsay King RN Position: [facility] RN Member Role: Primary Care Nurse Name: Hafsa Goyal RN Position: [facility] RN Member Role: Primary Care Nurse Name: Rosalio Jack RN Position: [facility] RN Member Role: Primary Care Nurse Name: Carmela Houser RN Position: [facility] SN RN Member Role: Primary Care Nurse Name: Michael Dickson RN Position: [facility] RN Member Role: Primary Care Nurse Name: Jessica Lema RN Position: [facility] RN Member Role: Primary Care Nurse Name: Phu Flynn MD Position: [facility] Renal MD Member Role: Lifetime Consulting Physician Address: Address: [address] [facility] [place], [place] [address] Name: Yesica Serna RN Position: S OB RN Member Role: Primary Care Nurse Name: Jesusita Lou RN Position: [facility] RN Member Role: Primary Care Nurse Name: Husam Elizalde RN Position: S RN Member Role: Primary Care Nurse Name: Marshall Byrd RN Position: S RN Member Role: Primary Care Nurse Care Team Related Persons Name: DUTCH MAR Address: [place] [address] Name: ALL AYERS Address: [address], [place] Name: ALL MANZANARES Address: [address] [place] [address] Name: CHRISTEN GRIMALDO Address: [address] [place] [address]
--- OUTSIDE RECORDS SUMMARY | 2023-11-18 12:34 | XMS_ITS | Continuity of Care Document ---
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 Role Phone Radha ODONNELL, Hannah Primary Care Physician Encounter [facility] [place] Date(s): 05/25/23 - 06/24/23 [facility] Adult [address] [place] [id number]- Allergies, Adverse Reactions, Alerts Substance Reaction Severity [...] 01/09/23 7:22:00 EDT, Route to Pharmacy Electronically, [id number], 183, cm, 10/08/22 16:18:00 EDT, Height, 71.3, kg, 08/08/21 0:23:00 EDT, Dry Weight Start Date: 01/09/23 Status: Ordered amLODIPine 5 mg oral tablet 1 tablet, By Mouth, Daily, # 28 tablet, 5 Refills, Maintenance, 11/25/22 16:21:00 EDT, [facility], 183, cm, 10/08/22 16:18:00 EDT, Height, 71.3, kg, 08/08/21 0:23:00 EDT, Dry Weight Start Date: 11/25/22 Status: Ordered atorvastatin 40 mg oral tablet 1 tablet, By Mouth, Daily, # 28 tablet, 2 Refills, Maintenance, 01/09/23 7:23:00 EDT, [id number], 183, cm, 10/08/22 16:18:00 EDT, Height, 71.3, [...] tablet, 5 Refills, Maintenance, 04/21/23 18:36:00 EST, [facility]/pharmacy#[id number], 1 tablet By Mouth Daily,x28 days, 183, cm, 03/28/23 11:43:00 EST, Height, 71.3, kg, :23:00 EDT, Dry Weight Start Date: 04/21/23 Stop Date: 10/06/23 Status: Ordered carvedilol 12.5 mg oral tablet 1, tablet, By Mouth, 2 times a day, # 56 tablet, Refills 5, Maintenance, 11/25/22 16:22:00 EDT, Route to Pharmacy Electronically, [facility], 183, cm, 10/08/22 16:18:00 EDT, Height, 71.3, kg, 08/08/21 0:23:00 EDT, Dry Weight Start Date: 11/25/22 Status: Ordered cholecalciferol 50,000 intl units oral capsule 1 capsule = 50,000 International_Units, By Mouth, Every week, # 13 capsule, 3 Refills, Maintenance,03/19/23 15:28:00 EDT, Capsule, [facility]/pharmacy #[id number], Partial fill upon patient request if the prescription is for a schedule II opioid drug., 183, cm, 0... Start Date: 03/19/23 Stop Date: 03/13/24 Status: Ordered cholecalciferol 50,000 intl units oral capsule 1 capsule = 50,000 International_Units, By Mouth, Every 7 days, # 13 capsule, 3 Refills, Maintenance, 03/20/23 8:29:00 EST, Capsule, [facility]/pharmacy #[id number], Partial fill upon patient request, 183, cm, 10/08/22 16:18:00 EDT, Height, 71.3, kg, 08/08/21 0:23... Start Date: 03/20/23 Stop Date: 03/14/24 Status: Ordered clopidogrel 75 mg oral tablet 1, tablet, By Mouth, Daily, # 28 tablet, Refills 5, Tot. Refills 5, Maintenance, 06/08/23 14:08:00 EST, Route to Pharmacy Electronically, [facility]/pharmacy #[id number], 183, cm, 05/10/23 11:59:00 [...] a day, # 56 tablet, 6 Refills, [id number], 183, cm, 08/12/21 14:20:00 EDT, Height, 71.3, kg, 08/08/21 0:23:00 EDT, Dry Weight Start Date: 09/26/21 Status: Ordered Eliquis 5 mg oral tablet See Instructions, TAKE 1 TABLET BY MOUTH TWICE A DAY, # 56 tablet, 6 Refills, Maintenance, 06/07/2409:23:00 EST, [facility]/pharmacy #[id number], 183, cm, 05/10/23 11:59:00 EST, Height, 71.3, kg, 08/08/21 0:23:00 EDT, Dry Weight Start Date: 06/07/23 Status: Ordered furosemide 40 mg oral tablet 1, tablet, By Mouth, 2 times a day, # 56 tablet, Refills 2, Tot. Refills 2, Maintenance, 04/21/23 18:37:00 EST, Route to Pharmacy Electronically, [facility]/pharmacy #[id number], 183, cm, 03/28/23 11:43:00 [...] tablet, 2 Refills, Maintenance, 04/27/23 13:02:00 EST, [facility] [id number], 183, cm, 03/28/23 11:43:00 EST, Height, 71.3, kg, 08/08/21 0:23:00 EDT, Dry Weight Start Date: 04/27/23 Status: Ordered isosorbide mononitrate 60 mg oral tablet, extended release 1 tablet, By Mouth, Daily in AM, # 28 tablet, 5 Refills, Maintenance, 04/21/23 18:37:00 EST, [facility]/pharmacy #[id number], 183, cm, 03/28/23 11:43:00 EST, Height, 71.3, kg, 08/08/21 0:23:00 EDT, Dry Weight Start Date: 04/21/23 Stop Date: 10/06/23 Status: Ordered Mylanta Maximum Strength oral suspension 5 mL, By Mouth, 4 times a day, PRN for control of stomach acid, # 200 mL, 1 Refills, Maintenance, 08/12/21 13:46:00 EDT, Suspension, [facility]/pharmacy #[id number], Partial fill upon patient request if the prescription is for a schedule II opioid drug., 5 mL By M... Start Date: 08/12/21 Status: Ordered Narcan 4 mg/0.1 mL nasal spray = 4 mg, Nares, Both, Once, may repeat every 2 to 3 minutes until patient responds, # 1 each, 0 Refills, Soft Stop, 05/14/23 10:41:00 EST, [facility]/pharmacy #[id number], Partial fill upon patient request if the prescription is for a schedule II opioid drug., 183,... Start Date: 05/14/23 Status: Ordered nitroglycerin 0.4 mg sublingual tablet 1 tablet = 0.4 mg, Sublingual, Every 5 minutes, PRN Chest Pain, # 25 tablet, 3 Refills, Maintenance, 08/24/19 15:40:00 EDT, [facility]/pharmacy #[id number], 183, cm, 05/25/19 15:06:00 EST, Height, 88.3, kg, 08/31/17 3:30:00 EDT, Dry Weight Start Date: 08/24/19 Stop Date: 12/22/19 Status: Ordered oxyCODONE 30 mg oral tablet 1-2 tablet, By Mouth, Every 3 hours, # 84 tablet, 0 Refills, Maintenance, 06/22/23 13:41:00 EST, [facility]/pharmacy #[id number], may partial fill upon [...] Start Date: 06/24/23 Status: Ordered Potassium Chloride (Mra-Lldv-Fbu 10) 10 mEq oral tablet, extended release See Instructions, TAKE 2 TABLETS BY MOUTH EVERY MORNING AND TAKE 1 TABLET EVERY EVENING, # 84 tablet, 2 Refills, Maintenance, 04/27/23 13:02:00 EST, [facility], 183, cm, 03/28/23 11:43:00 EST, Height, 71.3, kg, 08/08/21 0:23:00 EDT, Dry Weight Start Date: 04/27/23 Status: Ordered sertraline 100 mg oral tablet 1 tablet, By Mouth, Daily, # 28 tablet, 5 Refills, Maintenance, 06/09/22 8:26:00 EST, [facility], 183, cm, 03/16/22 8:31:00 EDT, Height, 71.3, kg, 08/08/21 0:23:00 EDT, Dry Weight Start Date: 06/09/22 Status: Ordered sertraline 100 mg oral tablet See Instructions, TAKE 1 TABLET BY MOUTH EVERY DAY, # 28 tablet, 5 Refills, Maintenance, 11/30/22 15:39:00 EDT, [facility], 183, cm, 10/08/22 16:18:00 EDT, Height, 71.3, kg, 08/08/21 0:23:00 EDT, Dry Weight Start Date: 11/30/22 Status: Ordered spironolactone 25 mg oral tablet 1, tablet, By Mouth, Daily, # 28 tablet, Refills 4, Maintenance, 06/24/23 7:44:00 EST, Route to Pharmacy Electronically, [facility], 183, cm, 05/10/23 11:59:00 EST, Height, 71.3, kg, 08/08/21 0:23:00 EDT, Dry Weight Start Date: 06/24/23 Status: Ordered sucralfate 1 gm oral tablet 1, tablet, By Mouth, 3 times a day before meals, AND BEDTIME., # 112 tablet, Refills 5, Maintenance, 02/04/23 16:32:00 EDT, Route to Pharmacy Electronically, [facility], 183, cm, 10/08/22 16:18:00 EDT, Height, 71.3, kg, 08/08/21 0:23:00 EDT, Dry... Start Date: 02/04/23 Status: Ordered Vitamin B-12 1000 mcg oral tablet 1, tablet, By Mouth, Daily, # 28 tablet, Refills 11, Tot. Refills 11, Maintenance, 04/21/23 18:37:00 EST, [facility], [id number], 183, cm, 03/28/23 11:43:00 EST, Height,71.3, [...] artery disease by Rolando Rubin M.D. at [facility]. 4In the past; states this has [...] Rhea Betancur RN Position: [facility] RN Member Role: Primary Care Nurse Name: Hugo Ayala RN Position: [facility] RN Member Role: Primary Care Nurse Name: Lorna Faust RN Position: [facility] RN Member Role: Primary Care Nurse Name: David Gonzalez MD Position: [facility] Renal MD Member Role: Lifetime Consulting Physician Address: Address: [address] [place] [address] [address] [facility] [place] [address]- [place] Name: Hannah Garcia NP Position: [facility] PCO Associate Professional Member Role: PCP Address: Address: [address] [place] [address], [address] [place] [address]- [place] Name: Eduin Arias MD Position: [facility] Renal MD Member Role: Lifetime Consulting Physician Address: Address: [address] [place] [address], [address] [address]- [place] Name: Ana Herrera RN Position: [facility] [...] Name: Марина Guevara RN Position: [facility] SN RN Member Role: Primary Care Nurse Name: Lyn Helms RN Position: [facility] RN Member Role: Primary Care Nurse Name: [place] Biswas RN Position: [facility] RN Member Role: Primary Care Nurse Name: Hugo Bateman RN Position: [facility] RN Member Role: Primary Care Nurse Name: Petros Levy RN Position: [facility] RN Member Role: Primary Care Nurse Name: Izabella Braun RN Position: [facility] RN Member Role: Primary Care Nurse Name: Lyndsay King RN Position: [facility] RN Member Role: Primary Care Nurse Name: Hafsa Goyal RN Position: [facility] RN Member [...] Role: Lifetime Consulting Physician Address: Address: [address] [place] [address] [facility] [place] [address]- [place] Name: Yesica Serna RN Position: [facility] OB RN Member Role: Primary Care Nurse Name: Jseusita Lou RN Position: [facility] OB RN Member Role: Primary Care Nurse Name: Husam Elizalde RN Position: S RN Member Role: Primary Care Nurse Name: Marshall Byrd RN Position: S RN Member Role: Primary Care Nurse Care Team Related Persons Name: DUTCH MAR Address: [place] [address] Name: ALL AYERS Address: [address] [place] [address] Name: ALL MANZANARES Address: [address] [place] [address] Name: CHRISTEN GRIMALDO Address: [address] [place] [address]
--- OUTSIDE RECORDS SUMMARY | 2023-11-18 12:34 | XMS_ITS | Continuity of Care Document ---
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 Start Date: 10/01/19 Status: Ordered amLODIPine 5 mg oral tablet See Instructions, # 28 tablet, Refills 2 Tot. Refills 2, TAKE 1 TABLET BY MOUTH EVERY DAY, [facility]/pharmacy #[id number] Start Date: 03/26/19 Status: Ordered amLODIPine 5 mg oral tablet 5 mg, 1, tablet, By Mouth, Daily, # 30 tablet, Refills 5, Tot. Refills 5, Maintenance, 06/18/19 14:33:00 EST, Route to Pharmacy Electronically, [facility]/pharmacy #[id number], 183, cm, 05/25/19 15:06:00 EST, Height, 88.3, kg, 08/31/17 3:30:00 EDT, Dry Weight Start Date: 06/18/19 Stop Date: 12/15/19 Status: Ordered atorvastatin 40 mg oral tablet See Instructions, TAKE 1 TABLET BY MOUTH EVERY DAY, # 28 tablet, 5 Refills, Soft Stop, 08/13/19 11:46:00 EDT, [facility]/pharmacy #[id number], 183, cm, 05/25/19 15:06:00 EST, Height, 88.3, kg, 08/31/17 3:30:00 EDT, Dry Weight Start Date: 08/13/19 Status: Ordered buPROPion 150 mg/24 hours (XL) oral tablet, extended release 1 tablet = 150 mg, By Mouth, Every 24 hours, # 30 tablet, 5 Refills, Maintenance, 10/26/19 13:15:00EDT, ER Tablet, [facility]/pharmacy #[id number], 1 tablet By Mouth Every 24 hours, 183, cm, 05/25/19 15:06:00 EST, Height, Dry Weight Start Date: 10/26/19 Status: Ordered buPROPion 150 mg/24 hours (XL) oral tablet, extended release 1 tablet = 150 mg, By Mouth, Every 24 hours, # 30 tablet, 5 Refills, Maintenance, 05/20/19 10:41:00EST, ER Tablet, [facility]/pharmacy #[id number], Bubble pack and delivery, 1 tablet By Mouth Every 24 hours, 183, cm, 01/23/19 14:41:00 EDT, Height, 88.3, kg, 08/31... Start Date: 05/20/19 Status: Ordered carvedilol 12.5 mg oral tablet 12.5 mg, 1, tablet, By Mouth, 2 times a day, # 60 tablet, Refills 5, Tot. Refills 5, Soft Stop, 10/26/19 11:37:00 EDT, Route to Pharmacy Electronically, [facility]/pharmacy #[id number], 183, cm, 05/25/19 15:06:00EST, Height Start Date: 10/26/19 Status: Ordered clopidogrel 75 mg oral tablet 75 mg, 1, tablet, By Mouth, Daily, # 30 tablet, Refills 5, Tot. Refills 5, Maintenance, 07/16/19 14:53:00 EST, Route to Pharmacy Electronically, [facility]/pharmacy #[id number], 183, cm, 05/25/19 15:06:00 EST, Height, 88.3, kg, 08/31/17 3:30:00 EDT, Dry Weight Start Date: 07/16/19 Status: Ordered [facility] B-12 1,000 MCG TABLET See Instructions, # 30 tablet, TAKE 1 TABLET BY MOUTH EVERY DAY, [facility]/pharmacy #[id number] Start Date: 03/20/19 Status: Ordered docusate sodium 100 mg oral capsule 100 mg, 1, capsule, By Mouth, 3 times a day, Bubble Pack and Delivery, # 90 capsule, Refills 5, Tot. Refills 5, Maintenance, 11/22/17 13:28:22 EDT, Route to Pharmacy Electronically, [id number], [facility]/pharmacy #[id number] Start Date: 11/22/17 Stop Date: 05/21/18 Status: Ordered Eliquis 5 mg oral tablet 1 tablet = 5 mg, By Mouth, 2 times a day, # 60 tablet, 5 Refills, Maintenance, 05/21/19 10:06:00 EST, Tablet, [facility]/pharmacy #[id number], 183, cm, 01/23/19 14:41:00 EDT, Height, 88.3, kg, 08/31/17 3:30:00 EDT, Dry Weight Start Date: 05/21/19 Status: Ordered Eliquis 5 mg oral tablet 1 tablet = 5 mg, By Mouth, 2 times a day, # 60 tablet, 3 Refills, Soft Stop, 10/26/19 13:50:00 EDT,[facility]/pharmacy #[id number], 183, cm, 05/25/19 15:06:00 EST, Height Start Date: 10/26/19 Stop Date: 02/23/20 Status: Ordered furosemide 40 mg oral tablet 40 mg, 1, tablet, By Mouth, Daily, # 30 tablet, Refills 5, Tot. Refills 5, Maintenance, 10/26/19 13:16:00 EDT, Route to Pharmacy Electronically, [facility]/pharmacy #[id number], 183, cm, 05/25/19 15:06:00 EST, Height, Dry Weight Start Date: 10/26/19 Status: Ordered furosemide 40 mg oral tablet 40 mg, 1, tablet, By Mouth, 2 times a day, # 60 tablet, Refills 1, Tot. Refills 1, Soft Stop, 10/26/19 13:50:00 EDT, [id number]. Pt is on 2 tabs daily, 183, cm, 05/25/19 15:06:00... Start Date: 10/26/19 Stop Date: 12/25/19 Status: Ordered hydrALAZINE 25 mg oral tablet 25 mg, 1, tablet, By Mouth, 2 times a day, # 60 tablet, Refills 5, Tot. Refills 5, Maintenance, 06/18/19 14:34:00 EST, [id number], 183, cm, 05/25/19 15:06:00EST, Height, 88.3, kg, 08/31/17 3:30:00 EDT, Dry We... Start Date: 06/18/19 Stop Date: 12/15/19 Status: Ordered hydrALAZINE 50 mg oral tablet 1 tablet = 50 mg, By Mouth, 3 times a day, dose change, # 90 tablet, 1 Refills, Maintenance, 09/10/19 10:37:00 EDT, Tablet, [facility]/pharmacy #[id number], 183, cm, 05/25/19 15:06:00 EST, Height Start Date: 09/10/19 Stop Date: 11/09/19 Status: Ordered isosorbide mononitrate 60 mg oral tablet, extended release 60 mg, 1, tablet, By Mouth, Daily in AM, # 30 tablet, Refills 5, Tot. Refills 5, Soft Stop, 09/11/19 14:15:00 EDT, Route to Pharmacy Electronically, [facility]/pharmacy #[id number], 183, cm, 05/25/19 15:06:00 EST, Height, Dry Weight Start Date: 09/11/19 Stop Date: 03/09/20 Status: Ordered NIFEdipine 30 mg oral tablet, extended release 30 mg, 1, tablet, By Mouth, Daily, Bubble Pack and Delivery, # 30 tablet, Refills 3, Tot. Refills 3, Maintenance, 03/27/18 8:38:30 EST, Route to Pharmacy Electronically, [id number], [facility]/pharmacy #[id number] Start Date: 03/27/18 Status: Ordered nitroglycerin 0.4 mg sublingual tablet 1 tablet = 0.4 mg, Sublingual, Every 5 minutes, PRN Chest Pain, # 25 tablet, 3 Refills, Maintenance, 08/24/19 15:40:00 EDT, [facility]/pharmacy #[id number], 183, cm, 05/25/19 15:06:00 EST, Height, 88.3, kg, 08/31/17 3:30:00 EDT, Dry Weight Start Date: 08/24/19 Stop Date: 12/22/19 Status: Ordered oxyCODONE 30 mg oral tablet 2 tablet = 60 mg, By Mouth, Every 3 hours, PRECISION GRINDER checked, # 224 tablet, 0 Refills, Acute 05/15/20 11:05:00 EST, 11/06/19 12:22:00 EDT, [facility]/pharmacy #[id number], may partial fill upon request; disregard otherscript, 11/16/19, 183, cm, 11/05/19 9:35:00 EDT, He... Start Date: 11/06/19 Stop Date: 05/15/20 Status: Ordered pantoprazole 40 mg oral delayed release tablet See Instructions, # 28 tablet, Refills 2 Tot. Refills 2, TAKE 1 TABLET BY MOUTH EVERY DAY, [facility]/pharmacy #[id number] Start Date: 02/26/19 [...] 01/29/19 17:07:02 EDT, Route to Pharmacy Electronically, [id number], [facility]/pharmacy #[id number], Bubble pack and Delivery Start Date: 01/29/19 Stop Date: 07/28/19 Status: Ordered potassium chloride 10 mEq oral tablet, extended release 1 tablet = 10 mEq, By Mouth, 2 times a day, # 60 tablet, 2 Refills, Maintenance, 10/26/19 13:50:00 EDT, ER Tablet, [facility]/pharmacy #[id number], 183, cm, 05/25/19 15:06:00 EST, Height Start Date: 10/26/19 Stop Date: 01/24/20 Status: Ordered sertraline 100 mg oral tablet 1 tablet = 100 mg, By Mouth, Daily, # 30 tablet, 6 Refills, Maintenance, 07/16/19 14:54:00 EST, Tablet, [facility]/pharmacy #[id number], 183, cm, 05/25/19 [...] 10/01/19 13:30:00 EDT, Route to Pharmacy Electronically, [facility]/pharmacy #[id number], 183, cm, 05/25/19 15:06:00 EST, Height, Dry Weight Start Date: 10/01/19 Stop Date: 11/30/19 Status: Ordered spironolactone 25 mg oral tablet See Instructions, # 30 tablet, Refills 1 Tot. Refills 1, TAKE 1 TABLET BY MOUTH EVERY DAY, [facility]/pharmacy #[id number] Start Date: 03/26/19 Status: Ordered spironolactone 25 mg oral tablet 25 mg, 1, tablet, By Mouth, Daily, # 30 tablet, Refills 1, Tot. Refills 1, Maintenance, 05/21/19 10:07:00 EST, Route to Pharmacy Electronically, [facility]/pharmacy #[id number], 183, cm, 01/23/19 14:41:00 EDT, Height, 88.3, kg, 08/31/17 3:30:00 EDT, Dry Weight Start Date: 05/21/19 Status: Ordered sucralfate 1 gm oral tablet 1 Gm, 1, tablet, By Mouth, 3 times a day before meals and bedtime, # 120 tablet, Refills 2, Tot. Refills 2, Soft Stop, 06/18/19 9:36:00 EST, [id number] 183,cm, 05/25/19 15:06:00 EST, Height, 88.3, kg, ... Start Date: 06/18/19 Stop Date: 09/16/19 Status: Ordered sucralfate 1 gm oral tablet 1 Gm, 1, tablet, By Mouth, 3 times a day before meals and bedtime, # 120 tablet, Refills 2, Tot. Refills 2, Maintenance, 08/13/19 15:11:00 EDT, [id number] 183, cm, 05/25/19 15:06:00 EST, Height, 88.3, kg, 04/... Start Date: 08/13/19 Stop Date: 02/09/20 Status: Ordered Vitamin B-12 1000 mcg oral tablet See Instructions, # 28 tablet, Refills 1 Tot. Refills 1, TAKE 1 TABLET BY MOUTH EVERY DAY, [facility]/pharmacy #[id number] Start Date: 03/26/19 Status: Ordered Vitamin B12 1000 mcg oral tablet 1 tablet = 1,000 mcg, By Mouth, Daily, # 30 tablet, 2 Refills, Maintenance, 09/07/19 16:04:00 EDT, Tablet, [facility]/pharmacy #[id number], 183, cm, 05/25/19 [...] artery disease by Rolando Rubin M.D. at [facility]. 5In the past; states this has resolved Vital Signs Most recent to oldest [Reference Range]: 1 Height 183 cm (10/30/19 12:58 PM) Social History Social History Type Response Smoking Status Never smoker entered on: 08/24/16 Sex
--- OUTSIDE RECORDS SUMMARY | 2023-11-18 12:34 | XMS_ITS | Continuity of Care Document ---
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 Start Date: 12/24/19 Status: Ordered amLODIPine 5 mg oral tablet See Instructions, # 28 tablet, Refills 2 Tot. Refills 2, TAKE 1 TABLET BY MOUTH EVERY DAY, [facility]/pharmacy #[id number] Start Date: 03/26/19 Status: Ordered amLODIPine 5 mg oral tablet 5 mg, 1, tablet, By Mouth, Daily, # 30 tablet, Refills 5, Tot. Refills 5, Maintenance, 11/26/19 14:40:00 EDT, Route to Pharmacy Electronically, [facility]/pharmacy #[id number], 183, cm, 11/05/19 9:35:00 EDT, Height, Dry Weight Start Date: 11/26/19 Stop Date: 05/24/20 Status: Ordered atorvastatin 40 mg oral tablet See Instructions, TAKE 1 TABLET BY MOUTH EVERY DAY, # 28 tablet, 5 Refills, Soft Stop, 12/27/19 14:47:00 EDT, [facility]/pharmacy #[id number], 183, cm, 11/05/19 9:35:00 EDT, Height, Dry Weight Start Date: 12/27/19 Status: Ordered buPROPion 150 mg/24 hours (XL) oral tablet, extended release 1 tablet = 150 mg, By Mouth, Every 24 hours, # 30 tablet, 5 Refills, Maintenance, 10/26/19 13:15:00EDT, ER Tablet, [facility]/pharmacy #[id number], 1 tablet By Mouth Every 24 hours, 183, cm, 05/25/19 15:06:00 EST, Height, Dry Weight Start Date: 10/26/19 Status: Ordered buPROPion 150 mg/24 hours (XL) oral tablet, extended release 1 tablet = 150 mg, By Mouth, Every 24 hours, # 30 tablet, 5 Refills, Maintenance, 05/20/19 10:41:00EST, ER Tablet, [facility]/pharmacy #[id number], Bubble pack and delivery, 1 tablet By Mouth Every 24 hours, 183, cm, 01/23/19 14:41:00 EDT, Height, 88.3, kg, 08/31... Start Date: 05/20/19 Status: Ordered carvedilol 12.5 mg oral tablet 12.5 mg, 1, tablet, By Mouth, 2 times a day, # 60 tablet, Refills 5, Tot. Refills 5, Soft Stop, 10/26/19 11:37:00 EDT, Route to Pharmacy Electronically, [facility]/pharmacy #[id number], 183, cm, 05/25/19 15:06:00EST, Height Start Date: 10/26/19 Status: Ordered clopidogrel 75 mg oral tablet 75 mg, 1, tablet, By Mouth, Daily, # 30 tablet, Refills 5, Tot. Refills 5, Maintenance, 12/24/19 13:07:00 EDT, Route to Pharmacy Electronically, [facility]/pharmacy #[id number], 183, cm, 11/05/19 9:35:00 EDT, Height, Dry Weight Start Date: 12/24/19 Status: Ordered [facility] B-12 1,000 MCG TABLET See Instructions, # 30 tablet, TAKE 1 TABLET BY MOUTH EVERY DAY, [facility]/pharmacy #[id number] Start Date: 03/20/19 Status: Ordered docusate sodium 100 mg oral capsule 100 mg, 1, capsule, By Mouth, 3 times a day, Bubble Pack and Delivery, # 90 capsule, Refills 5, Tot. Refills 5, Maintenance, 11/22/17 13:28:22 EDT, Route to Pharmacy Electronically, [id number], [facility]/pharmacy #[id number] Start Date: 11/22/17 Stop Date: 05/21/18 Status: Ordered Eliquis 5 mg oral tablet 1 tablet = 5 mg, By Mouth, 2 times a day, # 60 tablet, 5 Refills, Maintenance, 05/21/19 10:06:00 EST, Tablet, [facility]/pharmacy #[id number], 183, cm, 01/23/19 14:41:00 EDT, Height, 88.3, kg, 08/31/17 3:30:00 EDT, Dry Weight Start Date: 05/21/19 Status: Ordered Eliquis 5 mg oral tablet 1 tablet = 5 mg, By Mouth, 2 times a day, # 60 tablet, 3 Refills, Soft Stop, 10/26/19 13:50:00 EDT,[facility]/pharmacy #[id number], 183, cm, 05/25/19 15:06:00 EST, Height Start Date: 10/26/19 Stop Date: 02/23/20 Status: Ordered furosemide 40 mg oral tablet 40 mg, 1, tablet, By Mouth, Daily, # 30 tablet, Refills 5, Tot. Refills 5, Maintenance, 10/26/19 13:16:00 EDT, Route to Pharmacy Electronically, [facility]/pharmacy #[id number], 183, cm, 05/25/19 15:06:00 EST, Height, Dry Weight Start Date: 10/26/19 Status: Ordered furosemide 40 mg oral tablet 40 mg, 1, tablet, By Mouth, 2 times a day, # 60 tablet, Refills 1, Tot. Refills 1, Soft Stop, 10/26/19 13:50:00 EDT, [id number]. Pt is on 2 tabs daily, 183, cm, 05/25/19 15:06:00... Start Date: 10/26/19 Stop Date: 12/25/19 Status: Ordered hydrALAZINE 25 mg oral tablet 25 mg, 1, tablet, By Mouth, 2 times a day, # 60 tablet, Refills 5, Tot. Refills 5, Maintenance, 06/18/19 14:34:00 EST, Route to Pharmacy Electronically, [facility]/pharmacy #[id number], 183, cm, 05/25/19 15:06:00EST, Height, 88.3, kg, 08/31/17 3:30:00 EDT, Dry We... Start Date: 06/18/19 Stop Date: 12/15/19 Status: Ordered hydrALAZINE 50 mg oral tablet 1 tablet = 50 mg, By Mouth, 3 times a day, dose change, # 90 tablet, 1 Refills, Maintenance, 09/10/19 10:37:00 EDT, Tablet, [facility]/pharmacy #[id number], 183, cm, 05/25/19 15:06:00 EST, Height Start Date: 09/10/19 Stop Date: 11/09/19 Status: Ordered isosorbide mononitrate 60 mg oral tablet, extended release 60 mg, 1, tablet, By Mouth, Daily in AM, # 30 tablet, Refills 5, Tot. Refills 5, Soft Stop, 09/11/19 14:15:00 EDT, Route to Pharmacy Electronically, [facility]/pharmacy #[id number], 183, cm, 05/25/19 15:06:00 EST, Height, Dry Weight Start Date: 09/11/19 Stop Date: 03/09/20 Status: Ordered NIFEdipine 30 mg oral tablet, extended release 30 mg, 1, tablet, By Mouth, Daily, Bubble Pack and Delivery, # 30 tablet, Refills 3, Tot. Refills 3, Maintenance, 03/27/18 8:38:30 EST, Route to Pharmacy Electronically, [id number], [facility]/pharmacy #[id number] Start Date: 03/27/18 Status: Ordered nitroglycerin 0.4 mg sublingual tablet 1 tablet = 0.4 mg, Sublingual, Every 5 minutes, PRN Chest Pain, # 25 tablet, 3 Refills, Maintenance, 08/24/19 15:40:00 EDT, [facility]/pharmacy #[id number], 183, cm, 05/25/19 15:06:00 EST, Height, 88.3, kg, 08/31/17 3:30:00 EDT, Dry Weight Start Date: 08/24/19 Stop Date: 12/22/19 Status: Ordered oxyCODONE 30 mg oral tablet 2 tablet = 60 mg, By Mouth, Every 3 hours, 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 Refills 2, TAKE 1 TABLET BY MOUTH EVERY DAY, [facility]/pharmacy #[id number] Start Date: 02/26/19 Status: Ordered pantoprazole [...] 01/29/19 17:07:02 EDT, Route to Pharmacy Electronically, [id number], [facility]/pharmacy #[id number], Bubble pack and Delivery Start Date: 01/29/19 Stop Date: 07/28/19 Status: Ordered potassium chloride 10 mEq oral tablet, extended release 1 tablet = 10 mEq, By Mouth, 2 times a day, # 60 tablet, 2 Refills, Maintenance, 10/26/19 13:50:00 EDT, ER Tablet, [facility]/pharmacy #[id number], 183, cm, 05/25/19 15:06:00 EST, Height Start Date: 10/26/19 Stop Date: 01/24/20 Status: Ordered sertraline 100 mg oral tablet 1 tablet = 100 mg, By Mouth, Daily, # 30 tablet, 6 Refills, Maintenance, 07/16/19 14:54:00 EST, Tablet, [facility]/pharmacy #[id number], 183, cm, 05/25/19 15:06:00 EST, Height, [...] 6 Refills, Maintenance, 12/28/19 10:04:00 EDT, Tablet, [facility]/pharmacy #[id number], 183, cm, 11/05/19 9:35:00 EDT, Height, Dry Weight Start Date: 12/28/19 Status: Ordered spironolactone 25 mg oral tablet See Instructions, # 30 tablet, Refills 1 Tot. Refills 1, TAKE 1 TABLET BY MOUTH EVERY DAY, [facility]/pharmacy #[id number] Start Date: 03/26/19 Status: Ordered spironolactone 25 mg oral tablet 25 mg, 1, tablet, By Mouth, Daily, # 30 tablet, Refills 1, Tot. Refills 1, Maintenance, 05/21/19 10:07:00 EST, Route to Pharmacy Electronically, [facility]/pharmacy #[id number], 183, cm, 01/23/19 14:41:00 EDT, Height, 88.3, kg, 08/31/17 3:30:00 EDT, Dry Weight Start Date: 05/21/19 Status: Ordered spironolactone 25 mg oral tablet 25 mg, 1, tablet, By Mouth, Daily, # 30 tablet, Refills 1, Tot. Refills 1, Maintenance, 11/26/19 14:50:00 EDT, Route to Pharmacy Electronically, [facility]/pharmacy #[id number], 183, cm, 11/05/19 9:35:00 EDT, Height, Dry Weight Start Date: 11/26/19 Stop Date: 01/25/20 Status: Ordered sucralfate 1 gm oral tablet 1 Gm, 1, tablet, By Mouth, 3 times a day before meals and bedtime, # 120 tablet, Refills 2, Tot. Refills 2, Soft Stop, 06/18/19 9:36:00 EST, Route to Pharmacy Electronically, [facility]/pharmacy #[id number], 183,cm, 05/25/19 15:06:00 EST, Height, 88.3, kg, 08/31/... Start Date: 06/18/19 Stop Date: 09/16/19 Status: Ordered sucralfate 1 gm oral tablet 1 Gm, 1, tablet, By Mouth, 3 times a day before meals and bedtime, # 120 tablet, Refills 2, Tot. Refills 2, Maintenance, 11/26/19 8:36:00 EDT, Route to Pharmacy Electronically, [facility]/pharmacy #[id number], 183, cm, 11/05/19 9:35:00 EDT, Height, Dry Weight Start Date: 11/26/19 Status: Ordered Vitamin B-12 1000 mcg oral tablet See Instructions, # 28 tablet, Refills 1 Tot. Refills 1, TAKE 1 TABLET BY MOUTH EVERY DAY, [facility]/pharmacy #[id number] Start Date: 03/26/19 Status: Ordered Vitamin B12 1000 mcg oral tablet 1 tablet = 1,000 mcg, By Mouth, Daily, # 30 tablet, 5 Refills, Maintenance, 12/24/19 13:07:00 EDT, Tablet, [facility]/pharmacy #[id number], 183, cm, 11/05/19 9:35:00 EDT, Height, [...] artery disease by Rolando Rubin M.D. at [facility]. 5In the past; states this has resolved Social History Social History Type Response Smoking Status Never smoker entered on: 08/24/16 Sex
--- OUTSIDE RECORDS SUMMARY | 2023-11-18 12:34 | XMS_ITS | Continuity of Care Document ---
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 Role Phone Radha ODONNELL, Hannah Primary Care Physician Encounter [facility] Date(s): 09/01/23 - 10/01/[address] [id number] Attending Physician: Admtr, Caroline Admitting Physician: Admtr, Ar8 Referring Physician: Admtr, Ar8 Allergies, Adverse Reactions, [...] 09/22/23 19:43:00 EDT, Route to Pharmacy Electronically, [facility], 183, cm, 09/08/23 10:09:00 EDT, Height Start Date: 09/22/23 Status: Ordered amLODIPine 5 mg oral tablet 1 tablet, By Mouth, Daily, # 28 tablet, 5 Refills, Maintenance, 09/22/23 19:43:00 EDT, [facility], 183, cm, 09/08/23 10:09:00 EDT, Height Start Date: 09/22/23 Status: Ordered atorvastatin 40 mg oral tablet 1 tablet, By Mouth, Daily, # 90 tablet, 1 Refills, Maintenance, 07/01/23 15:53:00 EST, [facility]/pharmacy#[id number], 183, cm, 05/10/23 11:59:00 EST, [...] tablet, 0 Refills, Maintenance, 09/20/23 14:28:00 EDT, [facility]/pharmacy#[id number], 1 tablet By Mouth Daily,x90 days, 183, cm, 09/08/23 10:09:00 EDT, Height Start Date: 09/20/23 Stop Date: 12/19/23 Status: Ordered carvedilol 12.5 mg oral tablet 1, tablet, By Mouth, 2 times a day, # 56 tablet, Refills 5, Maintenance, 09/22/23 19:44:00 EDT, Route to Pharmacy Electronically, [id number], 183, cm, 09/08/23 10:09:00 EDT, Height Start Date: 09/22/23 Status: Ordered cholecalciferol 50,000 intl units oral capsule 1 capsule = 50,000 International_Units, By Mouth, Every week, # 13 capsule, 3 Refills, Maintenance,03/19/23 15:28:00 EDT, Capsule, [facility]/pharmacy #[id number], Partial fill upon patient request if the prescription is for a schedule II opioid drug., 183, cm, 0... Start Date: 03/19/23 Stop Date: 03/13/24 Status: Ordered cholecalciferol 50,000 intl units oral capsule 1 capsule = 50,000 International_Units, By Mouth, Every 7 days, # 13 capsule, 3 Refills, Maintenance, 03/20/23 8:29:00 EST, Capsule, [facility]/pharmacy #[id number], Partial fill upon patient request, 183, cm, 10/08/22 16:18:00 EDT, Height, 71.3, kg, 08/08/21 0:23... Start Date: 03/20/23 Stop Date: 03/14/24 Status: Ordered cloNIDine 0.1 mg oral tablet 1, tablet, By Mouth, 3 times a day, # 84 tablet, Refills 5, Maintenance, 09/22/23 19:45:00 EDT, Route to Pharmacy Electronically, [facility], 183, cm, 09/08/23 10:09:00 EDT, Height Start Date: 09/22/23 Status: Ordered clopidogrel 75 mg oral tablet 1, tablet, By Mouth, Daily, # 28 tablet, Refills 5, Tot. Refills 5, Maintenance, 06/08/23 14:08:00 EST, Route to Pharmacy Electronically, [facility]/pharmacy #[id number], 183, cm, 05/10/23 11:59:00 [...] a day, # 56 tablet, 6 Refills, [facility], 183, cm, 08/12/21 14:20:00 EDT, Height, 71.3, kg, 08/08/21 0:23:00 EDT, Dry Weight Start Date: 09/26/21 Status: Ordered Eliquis 5 mg oral tablet See Instructions, TAKE 1 TABLET BY MOUTH TWICE A DAY, # 56 tablet, 6 Refills, Maintenance, 06/07/2409:23:00 EST, [facility]/pharmacy #[id number], 183, cm, 05/10/23 11:59:00 EST, Height, 71.3, kg, 08/08/21 0:23:00 EDT, Dry Weight Start Date: 06/07/23 Status: Ordered furosemide 40 mg oral tablet 1, tablet, By Mouth, 2 times a day, # 168 tablet, Refills 1, Tot. Refills 1, Maintenance, 06/30/23 12:20:00 EST, Route to Pharmacy Electronically, [facility]/pharmacy #[id number], 183, cm, 05/10/23 11:59:00 [...] tablet, 5 Refills, Maintenance, 09/22/23 19:45:00 EDT, [facility], 183, cm, 09/08/23 10:09:00 EDT, Height Start Date: 09/22/23 Status: Ordered isosorbide mononitrate 60 mg oral tablet, extended release 1 tablet, By Mouth, Daily in AM, # 90 tablet, 0 Refills, Maintenance, 09/20/23 14:28:00 EDT, [facility]/pharmacy #[id number], 183, cm, 09/08/23 10:09:00 EDT, Height Start Date: 09/20/23 Stop Date: 12/19/23 Status: Ordered Mylanta Maximum Strength oral suspension 5 mL, By Mouth, 4 times a day, PRN for control of stomach acid, # 200 mL, 1 Refills, Maintenance, 08/12/21 13:46:00 EDT, Suspension, [facility]/pharmacy #[id number], Partial fill upon patient request if the prescription is for a schedule II opioid drug., 5 mL By M... Start Date: 08/12/21 Status: Ordered Narcan 4 mg/0.1 mL nasal spray = 4 mg, Nares, Both, Once, may repeat every 2 to 3 minutes until patient responds, # 1 each, 0 Refills, Soft Stop, 05/14/23 10:41:00 EST, [facility]/pharmacy #[id number], Partial fill upon patient [...] 0 Refills, Maintenance, 08/24/23 7:27:00 EDT, Tablet, [facility]/pharmacy #[id number], Partial fill upon patient [...] Start Date: 06/24/23 Status: Ordered Potassium Chloride (Xdo-Qogk-Kmc 10) 10 mEq oral tablet, extended release [...] tablet, 0 Refills, Maintenance, 09/01/23 11:58:00 EDT, [facility]/pharmacy#[id number], 183, cm, 05/10/23 11:59:00 EST, Height Start Date: 09/01/23 Stop Date: 11/24/23 Status: Ordered sertraline 100 mg oral tablet See Instructions, TAKE 1 TABLET BY MOUTH EVERY DAY, # 28 tablet, 5 Refills, Maintenance, 11/30/22 15:39:00 EDT, [facility], 183, cm, 10/08/22 16:18:00 EDT, Height, 71.3, kg, 08/08/21 0:23:00 EDT, Dry Weight Start Date: 11/30/22 Status: Ordered spironolactone 25 mg oral tablet 1, tablet, By Mouth, Daily, # 28 tablet, Refills 4, Maintenance, 06/24/23 7:44:00 EST, Route to Pharmacy Electronically, [facility], 183, cm, 05/10/23 11:59:00 EST, Height, 71.3, kg, 08/08/21 0:23:00 EDT, Dry Weight Start Date: 06/24/23 Status: Ordered sucralfate 1 gm oral tablet 1, tablet, By Mouth, 3 times a day before meals, AND BEDTIME., # 112 tablet, Refills 5, Maintenance, 02/04/23 16:32:00 EDT, Route to Pharmacy Electronically, [facility], 183, cm, 10/08/22 16:18:00 EDT, Height, 71.3, kg, 08/08/21 0:23:00 EDT, Dry... Start Date: 02/04/23 Status: Ordered Vitamin B-12 1000 mcg oral tablet 1, tablet, By Mouth, Daily, # 28 tablet, Refills 11, Tot. Refills 11, Maintenance, 04/21/23 18:37:00 EST, Route to Pharmacy Electronically, [facility]/pharmacy #[id number], 183, cm, 03/28/23 11:43:00 [...] Team Personnel Name: Irish Samuel RN Position: [facility] RN Member Role: Primary Care Nurse Name: Ever Blanco RN Position: [facility] ED RN W/OE and Tasks Member Role: Primary Care Nurse Name: Mireya Ramsey Position: [facility] RN Supv Member Role: Primary Care Nurse Name: Rhea Betancur RN Position: [facility] SN RN Member Role: Primary Care Nurse Name: Hugo Ayala RN Position: [facility] RN Member Role: Primary Care Nurse Name: Lorna Faust RN Position: [facility] RN Member Role: Primary Care Nurse Name: Wilner Feliciano RN Position: [facility] SN RN Member Role: Primary Care Nurse Name: David Gonzalez MD Position: [facility] Renal MD Member Role: Lifetime Consulting Physician Address: Address: [address] [place] [address] [address] [facility] [place] [address]- [place] Name: Hannah Garcia NP Position: [facility] PCO Associate Professional Member Role: PCP Address: Address: [address], [address] [place] [address]- [place] Name: Eduin Arias MD Position: [facility] Renal MD Member Role: Lifetime Consulting Physician Address: Address: [address] [place] [address], [address] [place] [address]- [place] Name: Ana Herrera RN Position: [facility] AMB Nurse Member Role: Primary Care Nurse Name: Carlos Montez RN Position: [facility] Outreach Member Role: Primary Care Nurse Name: Cadence Quach RN Position: [facility] OB RN Member Role: Primary Care Nurse Name: Maggy Tsang RN Position: [facility] RN Member Role: Primary Care Nurse Name: Keyla Keys RN Position: [facility] SN RN Member Role: Primary Care Nurse Name: Мраина Guevara RN Position: [facility] SN RN Member Role: Primary Care Nurse Name: Lyn Helms RN Position: [facility] RN Member Role: Primary Care Nurse Name: Tatum Biswas RN Position: [facility] RN Member Role: Primary Care Nurse Name: Hugo Bateman RN Position: [facility] RN Member Role: Primary Care Nurse Name: Petros Levy RN Position: [facility] RN Member Role: Primary Care Nurse Name: Charly Burns RN Position: [facility] RN Member Role: Primary Care Nurse Name: Nilesh Bear RN Position: [facility] RN Member Role: Primary Care Nurse Name: Izabella Braun RN Position: [facility] RN Member Role: Primary Care Nurse Name: Hafsa Goyal RN Position: [facility] RN Member Role: Primary Care Nurse Name: Rosalio Jack RN Position: [facility] RN Member Role: Primary Care Nurse Name: Carmela Houser RN Position: [facility] SN RN Member Role: Primary Care Nurse Name: Michael Dickson RN Position: [facility] RN Member Role: Primary Care Nurse Name: Jessica Lema RN Position: [facility] RN Member Role: Primary Care Nurse Name: Phu Flynn MD Position: [facility] Renal MD Member Role: Lifetime Consulting Physician Address: Address: [address] [place] [address] [facility] [place], [place] [address] Name: Yesica Serna RN Position: S OB RN Member Role: Primary Care Nurse Name: Jesusita Lou RN Position: S OB RN Member Role: Primary Care Nurse Name: Husam Elizalde RN Position: S RN Member Role: Primary Care Nurse Name: Marshall Byrd RN Position: S RN Member Role: Primary Care Nurse Care Team Related Persons Name: DUTCH MAR Address: [place] [address] Name: ALL AYERS Address: [address] [place], [place] Name: ALL MANZANARES Address: [address] [place] [address] Name: CHRISTEN GRIMALDO Address: [address] [place] [address]
--- OUTSIDE RECORDS SUMMARY | 2023-11-18 12:34 | XMS_ITS | Continuity of Care Document ---
Author Organization [facility] Adult Address [address] [place] [address]- Care Team Providers Care Internal Communications Specialist Name Role Phone Radha ODONNELL, Hannah Primary Care Physician [phone] Encounter [facility] Date(s): 11/24/21 - 12/24/21 [facility] Adult [address] [place] [id number]- Allergies, Adverse Reactions, Alerts Substance Reaction Severity [...] 28 tablet, Refills 2, Tot. Refills 2, 12/23/21 11:51:00 EDT, Route toPharmacy Electronically, [facility]/pharmacy #[id number], 183, cm, 10/20/21 10:31:00 EDT, Height, 71.3, kg, 08/08/21 0:23:00 EDT, Dry Weight Start Date: 12/23/21 Status: Ordered amLODIPine 5 mg oral tablet 1 tablet, By Mouth, Daily, # 28 tablet, 4 Refills, [facility] ST[facility] [id number], 183, cm, 10/20/21 10:31:00 EDT,Height, 71.3, kg, 08/08/21 0:23:00 EDT, Dry Weight Start Date: 10/27/21 Status: Ordered atorvastatin 40 mg oral tablet 1 tablet, By Mouth, Daily, # 28 tablet, 5 Refills, 12/23/21 11:53:00 EDT, [facility]/pharmacy #[id number], 183, cm, 10/20/21 10:31:00 EDT, Height, 71.3, kg, 08/08/21 0:23:00 EDT, Dry Weight Start Date: 12/23/21 Status: Ordered buPROPion 150 mg/24 hours (XL) oral tablet, extended release See Instructions, TAKE 1 TABLET BY MOUTH EVERY 24 HOURS, # 28 tablet, 1 Refills, [facility] [id number], 28, TAKE 1 TABLET BY MOUTH EVERY 24 HOURS, 183, cm, 10/20/21 10:31:00 EDT, Height, 71.3, kg, 220:23:00 EDT, Dry Weight Start Date: 12/23/21 Status: Ordered buPROPion 150 mg/24 hours (XL) oral tablet, extended release 1 tablet, By Mouth, Every 24 hours, # 28 tablet, 2 Refills, [facility] ST[facility] [id number], 28, TAKE 1 TABLET BY MOUTH EVERY 24 HOURS, 183, cm, 08/12/21 14:20:00 EDT, Height, 71.3, kg, 08/08/21 0:23:00 EDT, Dry Weight Start Date: 09/25/21 Status: Ordered carvedilol 12.5 mg oral tablet 1, tablet, By Mouth, 2 times a day, # 56 tablet, Refills 5, Route to Pharmacy Electronically, [facility] ST[facility] [id number], 183, cm, 05/04/21 3:09:00 EST, Height, 81.7, kg, 04/16/21 3:06:00 EST, Dry Weight Start Date: 07/07/21 Status: Ordered carvedilol 12.5 mg oral tablet See Instructions, TAKE 1 TABLET BY MOUTH TWICE A DAY, # 56 tablet, Refills 1, Tot. Refills 1, Instructions Replace Required Details, Route to Pharmacy Electronically, [facility] ST[facility] 96520, 183, cm, 10/20/21 10:31:00 EDT, Height, 71.3, kg, 08/08/21 0:23:00... Start Date: 12/23/21 Status: Ordered clopidogrel 75 mg oral tablet 1, tablet, By Mouth, Daily, # 28 tablet, Refills 5, Route to Pharmacy Electronically, [facility] [id number], 183, cm, 05/04/21 3:09:00 EST, Height, 81.7, kg, 04/16/21 3:06:00 EST, Dry Weight Start Date: 07/02/21 Status: Ordered clopidogrel 75 mg oral tablet See Instructions, TAKE 1 TABLET BY MOUTH EVERY DAY, # 28 tablet, Refills 1, Tot. Refills 1, Instructions Replace Required Details, Route to Pharmacy Electronically, [facility] ST[facility] [id number], 183, cm, 10/20/2209:31:00 EDT, Height, 71.3, kg, 08/08/21 0:23:00 ED... Start Date: 12/23/21 Status: Ordered Eliquis 5 mg oral tablet 1 tablet, By Mouth, 2 times a day, # 56 tablet, 6 Refills, [facility] 62488, 183, cm, 08/12/21 14:20:00 EDT, Height, 71.3, kg, 08/08/21 0:23:00 EDT, Dry Weight Start Date: 09/26/21 Status: Ordered furosemide 40 mg oral tablet 1, tablet, By Mouth, 2 times a day, # 56 tablet, Refills 2, Tot. Refills 2, 12/23/21 11:52:00 EDT, Route to Pharmacy Electronically, [facility]/pharmacy #[id number], 183, cm, 10/20/21 10:31:00 EDT, Height, 71.3, kg, 08/08/21 0:23:00 EDT, Dry Weight Start Date: 12/23/21 Status: Ordered hydrALAZINE 50 mg oral tablet 1 tablet = 50 mg, By Mouth, 3 times a day, dose change, # 90 tablet, 1 Refills, Maintenance, 09/10/19 10:37:00 EDT, Tablet, [facility]/pharmacy #[id number], 183, cm, 05/25/19 15:06:00 EST, Height Start Date: 09/10/19 Stop Date: 11/09/19 Status: Ordered isosorbide mononitrate 60 mg oral tablet, extended release 1 tablet, By Mouth, Daily in AM, # 28 tablet, 4 Refills, [facility] ST[facility] 68434, 183, cm, 10/20/21 10:31:00 EDT, Height, 71.3, [...] 60 mg, By Mouth, Every 3 hours, EXECUTIVE RELATIONS SPECIALIST checked. fill on 12/08/21, # 224 tablet, 0 Refills, Acute 05/15/22 10:54:00 EST, 12/08/21 6:33:00 EDT, [facility] #[id number], may partial fill upon request;, 183, cm, 10/20/21 10:31:00 EDT, Height, 71.3, kg,... Start Date: 12/08/21 Stop Date: 05/15/22 Status: Ordered oxyCODONE 30 mg oral tablet 2 tablet = 60 mg, By Mouth, Every 3 hours, EXECUTIVE RELATIONS SPECIALIST checked. 12/22/21 provider on vacation from 12/09-12/28,# 224 tablet, 0 Refills, Acute 05/15/22 12:57:00 EST, 12/08/21 6:33:00 EDT, [id number], maypartial fill upon request;, 183, cm, 10/20/21 10:... Start Date: 12/08/21 Stop Date: 05/15/22 Status: Ordered pantoprazole 40 mg oral delayed release tablet 1 tablet, By Mouth, Daily, # 28 tablet, 2 Refills, 11/30/21 14:00:00 EDT, 183, cm, 10/20/21 10:31:00 EDT, Height, 71.3, kg, 08/08/21 0:23:00 EDT, Dry Weight Start Date: 11/30/21 Status: Ordered Potassium Chloride ([id number] 10) 10 mEq oral tablet, extended release See Instructions, TAKE 2 TABLETS BY MOUTH EVERY MORNING AND TAKE 1 TABLET EVERY EVENING, # 84 tablet, 2 Refills, [facility] ST[facility] [id number], 183, cm, 10/20/21 10:31:00 EDT, Height, 71.3, kg, 08/08/21 0:23:00 EDT, Dry Weight Start Date: 11/30/21 Status: Ordered sertraline 100 mg oral tablet 1 tablet, By Mouth, Daily, # 28 tablet, 5 Refills, [facility] 26139, 183, cm, 10/20/21 10:31:00 EDT,Height, 71.3, kg, 08/08/21 0:23:00 EDT, Dry Weight Start Date: 11/30/21 Status: Ordered spironolactone 25 mg oral tablet 1, tablet, By Mouth, Daily, # 28 tablet, Refills 2, Tot. Refills 2, 11/30/21 14:00:00 EDT, Route toPharmacy Electronically, [facility]/pharmacy #[id number], 183, cm, 10/20/21 10:31:00 EDT, Height, 71.3, kg, 08/08/21 0:23:00 EDT, Dry Weight Start Date: 11/30/21 Status: Ordered sucralfate 1 gm oral tablet 1, tablet, By Mouth, 3 times a day before meals, AND BEDTIME., # 112 tablet, Refills 2, Tot. Refills 2, 08/12/21 13:47:00 EDT, Route to Pharmacy Electronically, [facility]/pharmacy #[id number], 183, cm, 08/12/21 12:05:00 EDT, Height, 71.3, kg, 08/08/21 0:23:00 EDT... Start Date: 3/30/22 Status: Ordered Vitamin B-12 1000 mcg oral tablet 1, tablet, By Mouth, Daily, # 28 tablet, Refills 5, Route to Pharmacy Electronically, [facility], 183, cm, 08/12/21 14:20:00 EDT, Height, 71.3, [...] artery disease by Rolando Rubin M.D. at [facility]. 3In the past; states this has resolved Social History Social History Type Response Smoking Status Never smoker entered on: 08/24/16 Sex
--- OUTSIDE RECORDS SUMMARY | 2023-11-18 12:34 | XMS_ITS | Continuity of Care Document ---
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 Name Role Phone Radha ODONNELL, Hannah Primary Care Physician Encounter [facility] Date(s): 04/05/23 - 05/05/23 [facility] Adult [address] [place] [id number]- Allergies, Adverse Reactions, Alerts Substance Reaction Severity [...] 01/09/23 7:22:00 EDT, Route to Pharmacy Electronically, [facility] [id number], 183, cm, 10/08/22 16:18:00 EDT, Height, 71.3, kg, 08/08/21 0:23:00 EDT, Dry Weight Start Date: 01/09/23 Status: Ordered amLODIPine 5 mg oral tablet 1 tablet, By Mouth, Daily, # 28 tablet, 5 Refills, Maintenance, 11/25/22 16:21:00 EDT, [facility] ST[facility] 90993, 183, cm, 10/08/22 16:18:00 EDT, Height, 71.3, kg, 08/08/21 0:23:00 EDT, Dry Weight Start Date: 11/25/22 Status: Ordered atorvastatin 40 mg oral tablet 1 tablet, By Mouth, Daily, # 28 tablet, 2 Refills, Maintenance, 01/09/23 7:23:00 EDT, [facility], 183, cm, 10/08/22 16:18:00 EDT, Height, 71.3, [...] EDT, Route to Pharmacy Electronically, [facility], 183, cm, 10/08/22 16:18:00 EDT, Height, 71.3, [...] EDT, Route to Pharmacy Electronically, [facility], 183, cm, 03/16/22 8:31:00 EDT, Height, 71.3, [...] 6 Refills, Maintenance, 05/14/2216:30:00 EST, [facility], 183, cm, 03/16/22 8:31:00 EDT, Height, 71.3, kg, 08/08/21 0:23:00 EDT, Dry Weight Start Date: 05/14/22 Status: Ordered Eliquis 5 mg oral tablet 1 tablet, By Mouth, 2 times a day, # 56 tablet, 6 Refills, [facility], 183, cm, 08/12/21 14:20:00 EDT, Height, 71.3, kg, 08/08/21 0:23:00 EDT, Dry Weight Start Date: 09/26/21 Status: Ordered Eliquis 5 mg oral tablet See Instructions, TAKE 1 TABLET BY MOUTH TWICE A DAY, # 56 tablet, 6 Refills, Maintenance, 11/30/2314:39:00 EDT, [facility], 183, cm, 10/08/22 16:18:00 EDT, Height, 71.3, kg, 08/08/21 0:23:00 EDT, Dry Weight Start Date: 11/30/22 Status: Ordered furosemide 40 mg oral tablet 1, tablet, By Mouth, 2 times a day, # 56 tablet, Refills 2, Tot. Refills 2, Maintenance, 04/21/23 18:37:00 EST, Route to Pharmacy Electronically, [facility]/pharmacy #[id number], 183, cm, 03/28/23 11:43:00 EST, [...] tablet, 2 Refills, Maintenance, 04/27/23 13:02:00 EST, [facility] STORE 09810, 183, cm, 03/28/23 11:43:00 EST, Height, 71.3, kg, 08/08/21 0:23:00 EDT, Dry Weight Start Date: 04/27/23 Status: Ordered isosorbide mononitrate 60 mg oral tablet, extended release 1 tablet, By Mouth, Daily in AM, # 28 tablet, 5 Refills, Maintenance, 04/21/23 18:37:00 EST, [facility]/pharmacy #[id number], 183, cm, 03/28/23 11:43:00 EST, Height, 71.3, kg, 08/08/21 0:23:00 EDT, Dry Weight Start Date: 04/21/23 Stop Date: 10/06/23 Status: Ordered Mylanta Maximum Strength oral suspension 5 mL, By Mouth, 4 times a day, PRN for control of stomach acid, # 200 mL, 1 Refills, Maintenance, 08/12/21 13:46:00 EDT, Suspension, [facility]/pharmacy #[id number], Partial fill upon patient request if the prescription is for a schedule II opioid drug., 5 mL By M... Start Date: 08/12/21 Status: Ordered nitroglycerin 0.4 mg sublingual tablet 1 tablet = 0.4 mg, Sublingual, Every 5 minutes, PRN Chest Pain, # 25 tablet, 3 Refills, Maintenance, 08/24/19 15:40:00 EDT, [facility]/pharmacy #[id number], 183, cm, 05/25/19 15:06:00 EST, Height, 88.3, kg, 08/31/17 3:30:00 EDT, Dry Weight Start Date: 08/24/19 Stop Date: 12/22/19 Status: Ordered oxyCODONE 30 mg oral tablet 2 tablet = 60 mg, By Mouth, Every 3 hours, PIN DRAFTER checked., # 112 tablet, 0 Refills, Maintenance, 05/02/23 14:43:00 EST, [facility]/pharmacy #[id number], may partial fill upon request;, 183, cm, 03/28/23 11:43:00 EST, Height, 71.3, kg, 08/08/21 0:23:00 EDT, Dry Weight Start Date: 05/02/23 Stop Date: 05/09/23 Status: Ordered oxyCODONE 30 mg oral tablet 2 tablet = 60 mg, By Mouth, Every 3 hours, PIN DRAFTER checked. [email or web address] 03/28/23, # 112 tablet, 0 Refills, Maintenance, 03/28/23 7:01:00 EST, [id number] 7 days as needs testing [...] Start Date: 11/30/22 Status: Ordered Potassium Chloride (Vul-Xnvv-Bho 10) 10 mEq oral tablet, extended release See Instructions, TAKE 2 TABLETS BY MOUTH EVERY MORNING AND TAKE 1 TABLET EVERY EVENING, # 84 tablet, 2 Refills, Maintenance, 04/27/23 13:02:00 EST, [facility], 183, cm, 03/28/23 11:43:00 EST, Height, 71.3, kg, 08/08/21 0:23:00 EDT, Dry Weight Start Date: 04/27/23 Status: Ordered sertraline 100 mg oral tablet 1 tablet, By Mouth, Daily, # 28 tablet, 5 Refills, Maintenance, 06/09/22 8:26:00 EST, [facility], 183, cm, 03/16/22 8:31:00 EDT, Height, 71.3, kg, 08/08/21 0:23:00 EDT, Dry Weight Start Date: 06/09/22 Status: Ordered sertraline 100 mg oral tablet See Instructions, TAKE 1 TABLET BY MOUTH EVERY DAY, # 28 tablet, 5 Refills, Maintenance, 11/30/22 15:39:00 EDT, [facility], 183, cm, 10/08/22 16:18:00 EDT, Height, 71.3, kg, 08/08/21 0:23:00 EDT, Dry Weight Start Date: 11/30/22 Status: Ordered spironolactone 25 mg oral tablet 1, tablet, By Mouth, Daily, # 28 tablet, Refills 4, Maintenance, 07/08/22 11:30:00 EST, Route to Pharmacy Electronically, [facility], 183, cm, 03/16/22 8:31:00 EDT, Height, 71.3, kg, 08/08/21 0:23:00 EDT, Dry Weight Start Date: 07/08/22 Status: Ordered spironolactone 25 mg oral tablet See Instructions, TAKE 1 TABLET BY MOUTH EVERY DAY, # 28 tablet, Refills 4, Maintenance, 11/30/22 15:38:00 EDT, Instructions Replace Required Details, Route to Pharmacy Electronically, [facility] 89697, 183, cm, 10/08/22 16:18:00 EDT, Height, 71.3, kg,... Start Date: 11/30/22 Status: Ordered sucralfate 1 gm oral tablet 1, tablet, By Mouth, 3 times a day before meals, AND BEDTIME., # 112 tablet, Refills 5, Maintenance, 02/04/23 16:32:00 EDT, Route to Pharmacy Electronically, [facility] 17641, 183, cm, 10/08/22 16:18:00 EDT, Height, 71.3, kg, 08/08/21 0:23:00 EDT, Dry... Start Date: 02/04/23 Status: Ordered Vitamin B-12 1000 mcg oral tablet 1, tablet, By Mouth, Daily, # 28 tablet, Refills 11, Tot. Refills 11, Maintenance, 04/21/23 18:37:00 EST, Route to Pharmacy Electronically, [facility]/pharmacy #[id number], 183, cm, 03/28/23 11:43:00 EST, [...] artery disease by Rolando Rubin M.D. at [facility]. 4In the past; states this has resolved Social History Social History Type Response Smoking Status Never smoker entered on: 08/24/16 Sex Patient Care team information Care Team Personnel Name: Irish Samuel RN Position: [facility] RN Member Role: Primary Care Nurse Name: Mireya Ramsey Position: [facility] RN Supv Member Role: Primary Care Nurse Name: Rhea Betancur RN Position: [facility] SN RN Member Role: Primary Care Nurse Name: Hugo Ayala RN Position: [facility] RN Member Role: Primary Care Nurse Name: Lorna Faust RN Position: [facility] RN Member Role: Primary Care Nurse Name: David Gonzalez MD Position: [facility] Renal MD Member Role: Lifetime Consulting Physician Address: Address: [address] [place] [address] [address] [facility] [address]- [place] Name: Hannah Garcia NP Position: [facility] PCO Associate Professional Member Role: PCP Address: Address: [address] [place] [address], [address] [place] [address]- [place] Name: Eduin Arias MD Position: [facility] Renal MD Member Role: Lifetime Consulting Physician Address: Address: [address] [place] [address], [address] [place] [address]- [place] Name: Ana Herrera RN Position: [facility] RN Member Role: Primary Care Nurse Name: Cadence Quach RN Position: [facility] OB RN Member Role: Primary Care Nurse Name: Maggy Tsang RN Position: [facility] RN Member Role: Primary Care Nurse Name: Keyla Keys RN Position: [facility] SN RN Member Role: Primary Care Nurse Name: Марина Guevara RN Position: [facility] SN RN Member Role: Primary Care Nurse Name: Lyn Helms RN Position: [facility] RN Member Role: Primary Care Nurse Name: Tatum Biswas RN Position: [facility] RN Member Role: Primary Care Nurse Name: Hugo Bateman RN Position: [facility] RN Member Role: Primary Care Nurse Name: Petros Levy RN Position: [facility] RN Member Role: Primary Care Nurse Name: Izabella Braun RN Position: [facility] RN Member Role: Primary Care Nurse Name: Lyndsay King RN Position: [facility] RN Member Role: Primary Care Nurse Name: Hafsa Goyal RN Position: [facility] RN Member Role: Primary Care Nurse Name: Rosalio Jack RN Position: [facility] RN Member Role: Primary Care Nurse Name: Carmela Houser RN Position: [facility] SN RN Member Role: Primary Care Nurse Name: Michael Dickson RN Position: [facility] RN Member Role: Primary Care Nurse Name: Jessica Lema RN Position: [facility] RN Member Role: Primary Care Nurse Name: Phu Flynn MD Position: [facility] Renal MD Member Role: Lifetime Consulting Physician Address: Address: [address] [place] [address] [facility] [address] Name: Yesica Serna RN Position: [facility] OB RN Member Role: Primary Care Nurse Name: Jesusita Lou RN Position: [facility] OB RN Member Role: Primary Care Nurse Name: Husam Elizalde RN Position: [facility] RN Member Role: Primary Care Nurse Name: Marshall Byrd RN Position: [facility] RN Member Role: Primary Care Nurse Care Team Related Persons Name: ROXANNAREINALDO HURTADOISSA Address: [place], [place] Name: ALL AYERS Address: [address] [place], [place] Name: ALL MANZANARES Address: [address], [place] Name: CHRISTEN GRIMALDO Address: [address], [place]
--- OUTSIDE RECORDS SUMMARY | 2023-11-18 12:34 | XMS_ITS | Continuity of Care Document ---
Author Organization [facility] Adult Address [address] [place] [id number]- Care Team Providers Care International Relations Professor Name Role Phone Radha ODONNELL, Hannah Primary Care Physician [phone] Encounter [facility] Date(s): 03/23/23 - 04/22/23 [facility] [address] [place] [id number]- Allergies, Adverse Reactions, Alerts Substance Reaction Severity [...] 01/09/23 7:22:00 EDT, Route to Pharmacy Electronically, [id number], 183, cm, 10/08/22 16:18:00 EDT, Height, 71.3, kg, 08/08/21 0:23:00 EDT, Dry Weight Start Date: 01/09/23 Status: Ordered amLODIPine 5 mg oral tablet 1 tablet, By Mouth, Daily, # 28 tablet, 5 Refills, Maintenance, 11/25/22 16:21:00 EDT, [facility], 183, cm, 10/08/22 16:18:00 EDT, Height, 71.3, kg, 08/08/21 0:23:00 EDT, Dry Weight Start Date: 11/25/22 Status: Ordered atorvastatin 40 mg oral tablet 1 tablet, By Mouth, Daily, # 28 tablet, 2 Refills, Maintenance, 01/09/23 7:23:00 EDT, [facility], 183, cm, 10/08/22 16:18:00 EDT, Height, 71.3, [...] EDT, Route to Pharmacy Electronically, [facility], 183, cm, 10/08/22 16:18:00 EDT, Height, 71.3, [...] EDT, Route to Pharmacy Electronically, [facility], 183, cm, 03/16/22 8:31:00 EDT, Height, 71.3, [...] 6 Refills, Maintenance, 05/14/2216:30:00 EST, [facility], 183, cm, 03/16/22 8:31:00 EDT, Height, 71.3, kg, 08/08/21 0:23:00 EDT, Dry Weight Start Date: 05/14/22 Status: Ordered Eliquis 5 mg oral tablet 1 tablet, By Mouth, 2 times a day, # 56 tablet, 6 Refills, [facility], 183, cm, 08/12/21 14:20:00 EDT, Height, 71.3, kg, 08/08/21 0:23:00 EDT, Dry Weight Start Date: 09/26/21 Status: Ordered Eliquis 5 mg oral tablet See Instructions, TAKE 1 TABLET BY MOUTH TWICE A DAY, # 56 tablet, 6 Refills, Maintenance, 11/30/2314:39:00 EDT, [facility], 183, cm, 10/08/22 16:18:00 EDT, Height, 71.3, kg, 08/08/21 0:23:00 EDT, Dry Weight Start Date: 11/30/22 Status: Ordered furosemide 40 mg oral tablet 1, tablet, By Mouth, 2 times a day, # 56 tablet, Refills 2, Tot. Refills 2, Maintenance, 04/21/23 18:37:00 EST, Route to Pharmacy Electronically, [facility]/pharmacy #[id number], 183, cm, 03/28/23 11:43:00 EST, [...] tablet, 2 Refills, Maintenance, 11/25/22 16:22:00 EDT, [facility] 93928, 183, cm, 10/08/22 16:18:00 EDT, Height, 71.3, kg, 08/08/21 0:23:00 EDT, Dry Weight Start Date: 11/25/22 Status: Ordered isosorbide mononitrate 60 mg oral tablet, extended release 1 tablet, By Mouth, Daily in AM, # 28 tablet, 5 Refills, Maintenance, 04/21/23 18:37:00 EST, [facility]/pharmacy #[id number], 183, cm, 03/28/23 11:43:00 EST, Height, 71.3, kg, 08/08/21 0:23:00 EDT, Dry Weight Start Date: 04/21/23 Stop Date: 10/06/23 Status: Ordered Mylanta Maximum Strength oral suspension 5 mL, By Mouth, 4 times a day, PRN for control of stomach acid, # 200 mL, 1 Refills, Maintenance, 08/12/21 13:46:00 EDT, Suspension, [facility]/pharmacy #[id number], Partial fill upon patient request if the prescription is for a schedule II opioid drug., 5 mL By M... Start Date: 08/12/21 Status: Ordered nitroglycerin 0.4 mg sublingual tablet 1 tablet = 0.4 mg, Sublingual, Every 5 minutes, PRN Chest Pain, # 25 tablet, 3 Refills, Maintenance, 08/24/19 15:40:00 EDT, [facility]/pharmacy #[id number], 183, cm, 05/25/19 15:06:00 EST, Height, 88.3, kg, 08/31/17 3:30:00 EDT, Dry Weight Start Date: 08/24/19 Stop Date: 12/22/19 Status: Ordered oxyCODONE 30 mg oral tablet 2 tablet = 60 mg, By Mouth, Every 3 hours, DIRECTOR OF STUDENT AFFAIRS checked. fiull 03/28/23, # 112 tablet, 0 Refills, Maintenance, 03/28/23 7:01:00 EST, [facility]/pharmacy #[id number], 7 days as needs testing performed partial fill upon request;, 183, cm, 10/08/22 16:18:00 EDT, Hei... Start Date: 03/28/23 Stop Date: 04/04/23 Status: Ordered oxyCODONE 30 mg oral tablet 2 tablet = 60 mg, By Mouth, Every 3 hours, 5PMP checked., # 112 tablet, 0 Refills, Maintenance, 04/18/23 17:13:00 EST, [facility]/pharmacy #[id number], may partial fill upon request; fill 07/19/2022, 183, cm, 03/28/23 11:43:00 EST, Height, 71.3, kg, 08/08/21 0:23:0... Start Date: 04/18/23 Stop Date: 04/25/23 Status: Ordered pantoprazole 40 mg oral delayed [...] Start Date: 11/30/22 Status: Ordered Potassium Chloride (Ajt-Bkqv-Swi 10) 10 mEq oral tablet, extended release See Instructions, TAKE 2 TABLETS BY MOUTH EVERY MORNING AND TAKE 1 TABLET EVERY EVENING, # 84 tablet, 2 Refills, Maintenance, 11/30/22 15:38:00 EDT, [facility], 183, cm, 10/08/22 16:18:00 EDT, Height, 71.3, kg, 08/08/21 0:23:00 EDT, Dry Weight Start Date: 11/30/22 Status: Ordered Potassium Chloride (Sio-Rwtl-Kbp 10) 10 mEq oral tablet, extended release See Instructions, TAKE 2 TABLETS BY MOUTH EVERY MORNING AND TAKE 1 TABLET EVERY EVENING, # 84 tablet, 2 Refills, Maintenance, 09/06/22 10:04:00 EDT, [facility], 183, cm, 03/16/22 8:31:00 EDT, Height, 71.3, kg, 08/08/21 0:23:00 EDT, Dry Weight Start Date: 09/06/22 Status: Ordered sertraline 100 mg oral tablet 1 tablet, By Mouth, Daily, # 28 tablet, 5 Refills, Maintenance, 06/09/22 8:26:00 EST, [facility], 183, cm, 03/16/22 8:31:00 EDT, Height, 71.3, kg, 08/08/21 0:23:00 EDT, Dry Weight Start Date: 06/09/22 Status: Ordered sertraline 100 mg oral tablet See Instructions, TAKE 1 TABLET BY MOUTH EVERY DAY, # 28 tablet, 5 Refills, Maintenance, 11/30/22 15:39:00 EDT, [facility], 183, cm, 10/08/22 16:18:00 EDT, Height, 71.3, kg, 08/08/21 0:23:00 EDT, Dry Weight Start Date: 11/30/22 Status: Ordered spironolactone 25 mg oral tablet 1, tablet, By Mouth, Daily, # 28 tablet, Refills 4, Maintenance, 07/08/22 11:30:00 EST, Route to Pharmacy Electronically, [facility], 183, cm, 03/16/22 8:31:00 EDT, Height, 71.3, kg, 08/08/21 0:23:00 EDT, Dry Weight Start Date: 07/08/22 Status: Ordered spironolactone 25 mg oral tablet See Instructions, TAKE 1 TABLET BY MOUTH EVERY DAY, # 28 tablet, Refills 4, Maintenance, 11/30/22 15:38:00 EDT, Instructions Replace Required Details, Route to Pharmacy Electronically, [facility], 183, cm, 10/08/22 16:18:00 EDT, Height, 71.3, kg,... Start Date: 11/30/22 Status: Ordered sucralfate 1 gm oral tablet 1, tablet, By Mouth, 3 times a day before meals, AND BEDTIME., # 112 tablet, Refills 5, Maintenance, 02/04/23 16:32:00 EDT, Route to Pharmacy Electronically, [facility], 183, cm, 10/08/22 16:18:00 EDT, Height, 71.3, kg, 08/08/21 0:23:00 EDT, Dry... Start Date: 02/04/23 Status: Ordered Vitamin B-12 1000 mcg oral tablet 1, tablet, By Mouth, Daily, # 28 tablet, Refills 11, Tot. Refills 11, Maintenance, 04/21/23 18:37:00 EST, Route to Pharmacy Electronically, [facility]/pharmacy #[id number], 183, cm, 03/28/23 11:43:00 EST, [...] post coronary artery bypass grafting 3 Confirmed 3/2/11 Active Hyperlipidemia Confirmed Active Hypertension, renal disease [...] artery disease by Rolando Rubin M.D. at [facility]. 4In the past; states this has resolved Social History Social History Type Response Smoking Status Never smoker entered on: 08/24/16 Sex Patient Care team information Care Team Personnel Name: Irish Samuel RN Position: [facility] RN Member Role: Primary Care Nurse Name: Mireya Ramsey Position: [facility] RN Supv Member Role: Primary Care Nurse Name: Rhea Betancur RN Position: [facility] SN RN Member Role: Primary Care Nurse Name: Hugo Ayala RN Position: [facility] RN Member Role: Primary Care Nurse Name: Lorna Faust RN Position: [facility] RN Member Role: Primary Care Nurse Name: David Gonzalez MD Position: [facility] Renal MD Member Role: Lifetime Consulting Physician Address: Address: [address] [place] [address] [address] [facility] [place] [address]- [place] Name: Hannah Garcia NP Position: [facility] PCO Associate Professional Member Role: PCP Address: Address: [address] [place] [address], [address] [place] [address]- [place] Name: Eduin Arias MD Position: [facility] Renal MD Member Role: Lifetime Consulting Physician Address: Address: [address] [place] [address], [address] [place] [address]- [place] Name: Ana Herrera RN Position: [facility] RN Member Role: Primary Care Nurse Name: Cadence Quach RN Position: [facility] OB RN Member Role: Primary Care Nurse Name: Maggy Tsang RN Position: S RN Member Role: Primary Care Nurse Name: Keyla Keys RN Position: [facility] SN RN Member Role: Primary Care Nurse Name: Марина Guevara RN Position: [facility] RN Member Role: Primary Care Nurse Name: Lyn Helms RN Position: [facility] RN Member Role: Primary Care Nurse Name: Tatum Biswas RN Position: [facility] RN Member Role: Primary Care Nurse Name: Hugo Bateman RN Position: [facility] RN Member Role: Primary Care Nurse Name: Petros Levy RN Position: [facility] RN Member Role: Primary Care Nurse Name: Izabella Braun RN Position: [facility] RN Member Role: Primary Care Nurse Name: Lyndsay King RN Position: [facility] RN Member Role: Primary Care Nurse Name: Felicia Kerr RN Position: [facility] RN Member Role: Primary Care Nurse Name: Hafsa Goyal RN Position: [facility] RN Member Role: Primary Care Nurse Name: Rosalio Jack RN Position: [facility] RN Member Role: Primary Care Nurse Name: Carmela Houser RN Position: [facility] SN RN Member Role: Primary Care Nurse Name: Michael Dickson RN Position: [facility] RN Member Role: Primary Care Nurse Name: Jessica Lema RN Position: [facility] RN Member Role: Primary Care Nurse Name: Phu Flynn MD Position: [facility] Renal MD Member Role: Lifetime Consulting Physician Address: Address: [address] [place] [address] [facility] [address] Name: Yesica Serna RN Position: [facility] OB RN Member Role: Primary Care Nurse Name: Jesusita Lou RN Position: [facility] OB RN Member Role: Primary Care Nurse Name: Husam Elizalde RN Position: [facility] RN Member Role: Primary Care Nurse Name: Marshall Byrd RN Position: [facility] RN Member Role: Primary Care Nurse Care Team Related Persons Name: DUTCH MAR Address: [place] [address] Name: JOSENinoska ALL Address: home [address] [place], [place] Name: NINA MANZANARESCK Address: home [address] [place], [place] Name: CHRISTEN GRIMALDO Address: home [address] [place] [address]
--- OUTSIDE RECORDS SUMMARY | 2023-11-18 12:34 | XMS_ITS | Continuity of Care Document ---
Author Organization [facility] Adult Address [address] [place] [id number]- Care Team Providers Care Cotton Stomper Name Role Phone Radha ODONNELL, Hannah Primary Care Physician Encounter [facility] Date(s): 04/18/23 - 05/18/23 [facility] [address] [place] [id number]- Allergies, Adverse Reactions, Alerts Substance Reaction Severity [...] 01/09/23 7:22:00 EDT, Route to Pharmacy Electronically, [facility], 183, cm, 10/08/22 16:18:00 EDT, Height, 71.3, kg, 08/08/21 0:23:00 EDT, Dry Weight Start Date: 01/09/23 Status: Ordered amLODIPine 5 mg oral tablet 1 tablet, By Mouth, Daily, # 28 tablet, 5 Refills, Maintenance, 11/25/22 16:21:00 EDT, [facility], 183, cm, 10/08/22 16:18:00 EDT, Height, 71.3, kg, 08/08/21 0:23:00 EDT, Dry Weight Start Date: 11/25/22 Status: Ordered atorvastatin 40 mg oral tablet 1 tablet, By Mouth, Daily, # 28 tablet, 2 Refills, Maintenance, 01/09/23 7:23:00 EDT, [facility], 183, cm, 10/08/22 16:18:00 EDT, Height, 71.3, [...] EDT, Route to Pharmacy Electronically, [facility], 183, cm, 10/08/22 16:18:00 EDT, Height, 71.3, [...] EDT, Route to Pharmacy Electronically, [facility], 183, cm, 03/16/22 8:31:00 EDT, Height, 71.3, [...] 6 Refills, Maintenance, 05/14/2216:30:00 EST, [facility], 183, cm, 03/16/22 8:31:00 EDT, Height, 71.3, kg, 08/08/21 0:23:00 EDT, Dry Weight Start Date: 05/14/22 Status: Ordered Eliquis 5 mg oral tablet 1 tablet, By Mouth, 2 times a day, # 56 tablet, 6 Refills, [facility], 183, cm, 08/12/21 14:20:00 EDT, Height, 71.3, kg, 08/08/21 0:23:00 EDT, Dry Weight Start Date: 09/26/21 Status: Ordered Eliquis 5 mg oral tablet See Instructions, TAKE 1 TABLET BY MOUTH TWICE A DAY, # 56 tablet, 6 Refills, Maintenance, 11/30/2314:39:00 EDT, [facility], 183, cm, 10/08/22 16:18:00 EDT, Height, 71.3, kg, 08/08/21 0:23:00 EDT, Dry Weight Start Date: 11/30/22 Status: Ordered furosemide 40 mg oral tablet 1, tablet, By Mouth, 2 times a day, # 56 tablet, Refills 2, Tot. Refills 2, Maintenance, 04/21/23 18:37:00 EST, Route to Pharmacy Electronically, [facility]/pharmacy #[id number], 183, cm, 03/28/23 11:43:00 [...] tablet, 2 Refills, Maintenance, 04/27/23 13:02:00 EST, [facility] 91117, 183, cm, 03/28/23 11:43:00 EST, Height, 71.3, kg, 08/08/21 0:23:00 EDT, Dry Weight Start Date: 04/27/23 Status: Ordered isosorbide mononitrate 60 mg oral tablet, extended release 1 tablet, By Mouth, Daily in AM, # 28 tablet, 5 Refills, Maintenance, 04/21/23 18:37:00 EST, [facility]/pharmacy #[id number], 183, cm, 03/28/23 11:43:00 EST, Height, 71.3, kg, 08/08/21 0:23:00 EDT, Dry Weight Start Date: 04/21/23 Stop Date: 10/06/23 Status: Ordered Mylanta Maximum Strength oral suspension 5 mL, By Mouth, 4 times a day, PRN for control of stomach acid, # 200 mL, 1 Refills, Maintenance, 08/12/21 13:46:00 EDT, Suspension, [facility]/pharmacy #[id number], Partial fill upon patient request if the prescription is for a schedule II opioid drug., 5 mL By M... Start Date: 08/12/21 Status: Ordered Narcan 4 mg/0.1 mL nasal spray = 4 mg, Nares, Both, Once, may repeat every 2 to 3 minutes until patient responds, # 1 each, 0 Refills, Soft Stop, 05/14/23 10:41:00 EST, [facility]/pharmacy #[id number], Partial fill upon patient request if the prescription is for a schedule II opioid drug., 183,... Start Date: 05/14/23 Status: Ordered nitroglycerin 0.4 mg sublingual tablet 1 tablet = 0.4 mg, Sublingual, Every 5 minutes, PRN Chest Pain, # 25 tablet, 3 Refills, Maintenance, 08/24/19 15:40:00 EDT, [facility]/pharmacy #[id number], 183, cm, 05/25/19 15:06:00 EST, Height, 88.3, kg, 08/31/17 3:30:00 EDT, Dry Weight Start Date: 08/24/19 Stop Date: 12/22/19 Status: Ordered oxyCODONE 30 mg oral tablet 2 tablet = 60 mg, By Mouth, Every 3 hours, HISTOPATHOLOGIST checked., # 112 tablet, 0 Refills, Maintenance, 05/18/23 16:20:00 EST, [facility]/pharmacy #[id number], 7 days as needs testing performed partial fill upon request;,183, cm, 05/10/23 11:59:00 EST, Height, 71.3, kg,... Start Date: 05/18/23 Stop Date: 05/25/23 Status: Ordered oxyCODONE 30 mg oral tablet 2 tablet = 60 mg, By Mouth, Every 3 hours, HISTOPATHOLOGIST checked., # 112 tablet, 0 Refills, Maintenance, [...] Start Date: 11/30/22 Status: Ordered Potassium Chloride (Mik-Qfil-Edj 10) 10 mEq oral tablet, extended release See Instructions, TAKE 2 TABLETS BY MOUTH EVERY MORNING AND TAKE 1 TABLET EVERY EVENING, # 84 tablet, 2 Refills, Maintenance, 04/27/23 13:02:00 EST, [facility], 183, cm, 03/28/23 11:43:00 EST, Height, 71.3, kg, 08/08/21 0:23:00 EDT, Dry Weight Start Date: 04/27/23 Status: Ordered sertraline 100 mg oral tablet 1 tablet, By Mouth, Daily, # 28 tablet, 5 Refills, Maintenance, 06/09/22 8:26:00 EST, [facility], 183, cm, 03/16/22 8:31:00 EDT, Height, 71.3, kg, 08/08/21 0:23:00 EDT, Dry Weight Start Date: 06/09/22 Status: Ordered sertraline 100 mg oral tablet See Instructions, TAKE 1 TABLET BY MOUTH EVERY DAY, # 28 tablet, 5 Refills, Maintenance, 11/30/22 15:39:00 EDT, [facility], 183, cm, 10/08/22 16:18:00 EDT, Height, 71.3, kg, 08/08/21 0:23:00 EDT, Dry Weight Start Date: 11/30/22 Status: Ordered spironolactone 25 mg oral tablet 1, tablet, By Mouth, Daily, # 28 tablet, Refills 4, Maintenance, 07/08/22 11:30:00 EST, Route to Pharmacy Electronically, [facility], 183, cm, 03/16/22 8:31:00 EDT, Height, 71.3, kg, 08/08/21 0:23:00 EDT, Dry Weight Start Date: 07/08/22 Status: Ordered spironolactone 25 mg oral tablet See Instructions, TAKE 1 TABLET BY MOUTH EVERY DAY, # 28 tablet, Refills 4, Maintenance, 11/30/22 15:38:00 EDT, Instructions Replace Required Details, Route to Pharmacy Electronically, [facility] 77843, 183, cm, 10/08/22 16:18:00 EDT, Height, 71.3, kg,... Start Date: 11/30/22 Status: Ordered sucralfate 1 gm oral tablet 1, tablet, By Mouth, 3 times a day before meals, AND BEDTIME., # 112 tablet, Refills 5, Maintenance, 02/04/23 16:32:00 EDT, Route to Pharmacy Electronically, [facility] 59443, 183, cm, 10/08/22 16:18:00 EDT, Height, 71.3, kg, 08/08/21 0:23:00 EDT, Dry... Start Date: 02/04/23 Status: Ordered Vitamin B-12 1000 mcg oral tablet 1, tablet, By Mouth, Daily, # 28 tablet, Refills 11, Tot. Refills 11, Maintenance, 04/21/23 18:37:00 EST, Route to Pharmacy Electronically, [facility]/pharmacy #[id number], 183, cm, 03/28/23 11:43:00 [...] artery disease by Rolando Rubin M.D. at [facility]. 4In the past; states this has resolved Social History Social History Type Response Smoking Status Never smoker entered on: 08/24/16 Sex Patient Care team information Care Team Personnel Name: Irish Samuel RN Position: [facility] RN Member Role: Primary Care Nurse Name: Mireya Ramsey Position: [facility] RN Supv Member Role: Primary Care Nurse Name: Rhea Betancur RN Position: [facility] SN RN Member Role: Primary Care Nurse Name: Hugo Ayala RN Position: [facility] RN Member Role: Primary Care Nurse Name: Lorna Faust RN Position: [facility] RN Member Role: Primary Care Nurse Name: David Gonzalez MD Position: [facility] Renal MD Member Role: Lifetime Consulting Physician Address: Address: [address] [place] [address] [address] [place] [address]- [place] Name: Hannah Garcia NP Position: [facility] PCO Associate Professional Member Role: PCP Address: Address: [address] [place] [address], [address] [place] [address]- [place] Name: Eduin Arias MD Position: [facility] Renal MD Member Role: Lifetime Consulting Physician Address: Address: [address] [place] [address], [address] [place] [address]- [place] Name: Ana Herrera RN Position: [facility] RN Member Role: Primary Care Nurse Name: Cadence Quach RN Position: [facility] OB RN Member Role: Primary Care Nurse Name: Maggy Tsang RN Position: S RN Member Role: Primary Care Nurse Name: Keyla Keys RN Position: [facility] SN RN Member Role: Primary Care Nurse Name: Марина Guevara RN Position: [facility] SN RN Member Role: Primary Care Nurse Name: Lyn Helms RN Position: [facility] RN Member Role: Primary Care Nurse Name: Tatum Biswas RN Position: [facility] RN Member Role: Primary Care Nurse Name: Hugo Bateman RN Position: [facility] RN Member Role: Primary Care Nurse Name: Petros Levy RN Position: [facility] RN Member Role: Primary Care Nurse Name: Izabella Braun RN Position: [facility] RN Member Role: Primary Care Nurse Name: Lyndsay King RN Position: [facility] RN Member Role: Primary Care Nurse Name: Cirilo REGIONAL ACCOUNT MANAGERFelicia Position: [facility] Medical Student Member Role: Primary Care Nurse Name: Hafsa Goyal RN Position: [facility] RN Member Role: Primary Care Nurse Name: Rosalio Jack RN Position: [facility] RN Member Role: Primary Care Nurse Name: Carmela Houser RN Position: [facility] SN RN Member Role: Primary Care Nurse Name: Michael Dickson RN Position: [facility] RN Member Role: Primary Care Nurse Name: Jessica Lema RN Position: [facility] RN Member Role: Primary Care Nurse Name: Phu Flynn MD Position: [facility] Renal MD Member Role: Lifetime Consulting Physician Address: Address: [address] [place] [address] [facility] [address] Name: Yesica Serna RN Position: [facility] OB RN Member Role: Primary Care Nurse Name: Jesusita Lou RN Position: [facility] OB RN Member Role: Primary Care Nurse Name: Husam Elizalde RN Position: [facility] RN Member Role: Primary Care Nurse Name: Marshall Byrd RN Position: [facility] RN Member Role: Primary Care Nurse Care Team Related Persons Name: DUTCH MAR Address: [address] [place], [place] Name: ALL AYERS Address: home [address], [place] Name: ALL MANZANARES Address: home [address], [place] Name: CHRISTEN GRIMALDO Address: home [address], [place]
--- OUTSIDE RECORDS SUMMARY | 2023-11-18 12:35 | XMS_ITS | Continuity of Care Document ---
Author Organization [facility] Address [address] [place] [address]- Care Team Providers Care Amphibious Operations Officer Name Role Phone Radha ODONNELL, Hannah Primary Care Physician Encounter [facility] Date(s): 02/13/20 - 03/14/20 [facility] [address] [place] [phone] [facility] Allergies, Adverse Reactions, Alerts Substance Reaction [...] tablet, Refills 2, Tot. Refills 2,Soft Stop, 03/07/20 14:54:00 EDT, Instructions Replace Required Details, Route to Pharmacy Electronically, [facility]/pharmacy #[id number], 183, cm, 02/05/20 12:53:... Start Date: 03/07/20 Status: Ordered amLODIPine 5 mg oral tablet 5 mg, 1, tablet, By Mouth, Daily, # 30 tablet, Refills 5, Tot. Refills 5, Maintenance, 11/26/19 14:40:00 EDT, Route to Pharmacy Electronically, [facility]/pharmacy #[id number], 183, cm, 11/05/19 9:35:00 EDT, Height, Dry Weight Start Date: 11/26/19 Stop Date: 05/24/20 Status: Ordered atorvastatin 40 mg oral tablet See Instructions, TAKE 1 TABLET BY MOUTH EVERY DAY, # 28 tablet, 5 Refills, Soft Stop, 12/27/19 14:47:00 EDT, [facility]/pharmacy #[id number], 183, cm, 11/05/19 9:35:00 EDT, Height, Dry Weight Start Date: 12/27/19 Status: Ordered buPROPion 150 mg/24 hours (XL) oral tablet, extended release 1 tablet = 150 mg, By Mouth, Every 24 hours, # 30 tablet, 5 Refills, Maintenance, 02/18/20 10:40:00EDT, ER Tablet, [facility]/pharmacy #[id number], Bubble pack and delivery, 1 tablet By Mouth Every 24 hours, 183, cm, 02/05/20 12:53:00 EDT, Height, Dry Weight Start Date: 02/18/20 Status: Ordered carvedilol 12.5 mg oral tablet 12.5 mg, 1, tablet, By Mouth, 2 times a day, # 60 tablet, Refills 5, Tot. Refills 5, Soft Stop, 10/26/19 11:37:00 EDT, Route to Pharmacy Electronically, [facility]/pharmacy #[id number], 183, cm, 05/25/19 15:06:00EST, Height Start Date: 10/26/19 Status: Ordered clopidogrel 75 mg oral tablet 75 mg, 1, tablet, By Mouth, Daily, # 30 tablet, Refills 5, Tot. Refills 5, Maintenance, 12/24/19 13:07:00 EDT, Route to Pharmacy Electronically, [facility]/pharmacy #[id number], 183, cm, 11/05/19 9:35:00 EDT, Height, Dry Weight Start Date: 12/24/19 Status: Ordered [facility]S B-12 1,000 MCG TABLET See Instructions, # 30 tablet, TAKE 1 TABLET BY MOUTH EVERY DAY, [facility]/pharmacy #[id number] Start Date: 03/20/19 Status: Ordered docusate sodium 100 mg oral capsule 100 mg, 1, capsule, By Mouth, 3 times a day, Bubble Pack and Delivery, # 90 capsule, Refills 5, Tot. Refills 5, Maintenance, 11/22/17 13:28:22 EDT, Route to Pharmacy Electronically, [id number], [facility]/pharmacy #[id number] Start Date: 11/22/17 Stop Date: 05/21/18 Status: Ordered Eliquis 5 mg oral tablet 1 tablet = 5 mg, By Mouth, 2 times a day, # 60 tablet, 5 Refills, Maintenance, 02/18/20 14:47:00 EDT, Tablet, [facility]/pharmacy #[id number], 183, cm, 02/05/20 12:53:00 EDT, Height, Dry Weight Start Date: 02/18/20 Status: Ordered furosemide 40 mg oral tablet 40 mg, 1, tablet, By Mouth, 2 times a day, # 60 tablet, Refills 2, Tot. Refills 2, Soft Stop, 02/06/20 10:28:00 EDT, Route to Pharmacy Electronically, [facility]/pharmacy #[id number], this replaces previous script. Pt is on 2 tabs daily, 183, cm, 02/05/20 12:53:00... Start Date: 02/06/20 Stop Date: 05/06/20 Status: Ordered hydrALAZINE 50 mg oral tablet 1 tablet = 50 mg, By Mouth, 3 times a day, dose change, # 90 tablet, 1 Refills, Maintenance, 09/10/19 10:37:00 EDT, Tablet, [facility]/pharmacy #[id number], 183, cm, 05/25/19 15:06:00 EST, Height Start Date: 09/10/19 Stop Date: 11/09/19 Status: Ordered isosorbide mononitrate 60 mg oral tablet, extended release 60 mg, 1, tablet, By Mouth, Daily in AM, # 30 tablet, Refills 5, Tot. Refills 5, Soft Stop, 09/11/19 14:15:00 EDT, Route to Pharmacy Electronically, [facility]/pharmacy #[id number], 183, cm, 05/25/19 15:06:00 EST, Height, Dry Weight Start Date: 09/11/19 Stop Date: 03/09/20 Status: Ordered NIFEdipine 30 mg oral tablet, extended release 30 mg, 1, tablet, By Mouth, Daily, Bubble Pack and Delivery, # 30 tablet, Refills 3, Tot. Refills 3, Maintenance, 03/27/18 8:38:30 EST, Route to Pharmacy Electronically, [id number], [facility]/pharmacy #[id number] Start Date: 03/27/18 Status: Ordered nitroglycerin 0.4 mg sublingual tablet 1 tablet = 0.4 mg, Sublingual, Every 5 minutes, PRN Chest Pain, # 25 tablet, 3 Refills, Maintenance, 08/24/19 15:40:00 EDT, [facility]/pharmacy #[id number], 183, cm, 05/25/19 15:06:00 EST, Height, 88.3, kg, 08/31/17 3:30:00 EDT, Dry Weight Start Date: 08/24/19 Stop Date: 12/22/19 Status: Ordered oxyCODONE 30 mg oral tablet 2 tablet = 60 mg, By Mouth, Every 3 hours, PEELED POTATO INSPECTOR checked, # 224 tablet, 0 Refills, Acute 05/15/20 14:24:00 EST, 03/06/20 20:09:00 EDT, [facility]/pharmacy #[id number], may partial fill upon request;, 03/07/20, 183,cm, 02/05/20 12:53:00 EDT, Height, Dry Weight Start Date: 03/06/20 Stop Date: 05/15/20 Status: Ordered pantoprazole 40 [...] TAKE 1 TABLET BY MOUTH EVERY DAY, [facility]/pharmacy #[id number] Start Date: 02/26/19 Status: Ordered potassium chloride 10 mEq oral tablet, extended release See Instructions, take 2 tabs in am and 1 tab in pm, # 90 tablet, 2 Refills, Maintenance, 02/06/20 16:13:00 EDT, ER Tablet, [facility]/pharmacy #[id number], 183, cm, 02/05/20 12:53:00 EDT, Height Start Date: 02/06/20 Status: Ordered sertraline 100 mg oral tablet 1 tablet = 100 mg, By Mouth, Daily, # 90 tablet, 1 Refills, Maintenance, 02/18/20 14:47:00 EDT, [id number] Bubble [facility] delivery, 183, cm, 02/05/20 12:53:00 EDT, Height Start Date: 02/18/20 Stop Date: 08/16/20 Status: Ordered spironolactone 25 mg oral tablet 25 mg, 1, tablet, By Mouth, Daily, # 30 tablet, Refills 1, Tot. Refills 1, Soft Stop, 02/18/20 14:47:00 EDT, [id number], cm, 02/05/20 12:53:00 EDT, Height Start Date: 02/18/20 Stop Date: 04/18/20 Status: Ordered sucralfate 1 gm oral tablet 1 Gm, 1, tablet, By Mouth, 3 times a day before meals and bedtime, # 120 tablet, Refills 2, Tot. Refills 2, Maintenance, 02/13/20 15:20:00 EDT, [id number], cm, 02/05/20 12:53:00 EDT, Height, Dry Weight Start Date: 02/13/20 Status: Ordered Vitamin B-12 1000 mcg oral tablet 1,000 mcg, 1, tablet, By Mouth, Daily, # 30 tablet, Refills 1, Tot. Refills 1, Soft Stop, 02/18/20 14:47:00 EDT, [id number] 183, cm, 02/05/20 12:53:00 EDT, [...] artery disease by Rolando Rubin M.D. at [facility] [place]. 5In the past; states this has resolved Social History Social History Type Response Smoking Status Never smoker entered on: 08/24/16 Sex
--- OUTSIDE RECORDS SUMMARY | 2023-11-18 12:35 | XMS_ITS | Continuity of Care Document ---
Author Organization [facility] Address [address] [place] [address]- Care Team Providers Care Guest Associate Name Role Phone Radha ODONNELL, Hannah Primary Care Physician [phone] Encounter [facility] [place] Date(s): 07/06/22 - 08/15/22 [facility] [address] [place] [phone]- Attending Physician: Hannah Garcia NP Allergies, Adverse [...] 07/08/22 11:30:00 EST, Route to Pharmacy Electronically, [id number], 183, cm, 03/16/22 8:31:00 EDT, Height, 71.3, kg, 08/08/21 0:23:00 EDT, Dry Weight Start Date: 07/08/22 Status: Ordered amLODIPine 5 mg oral tablet 1 tablet, By Mouth, Daily, # 28 tablet, 4 Refills, Maintenance, 04/13/22 11:43:00 EST, [id number], 183, cm, 03/16/22 8:31:00 EDT, Height, 71.3, kg, 08/08/21 0:23:00 EDT, Dry Weight Start Date: 04/13/22 Status: Ordered atorvastatin 40 mg oral tablet 1 tablet, By Mouth, Daily, # 28 tablet, 5 Refills, Maintenance, 07/08/22 11:30:00 EST, [facility] ST[facility] 13718, 183, cm, 03/16/22 8:31:00 EDT, Height, 71.3, kg, 08/08/21 0:23:00 EDT, Dry Weight Start Date: 07/08/22 Status: Ordered buPROPion 150 mg/24 hours (XL) oral tablet, extended release See Instructions, TAKE 1 TABLET BY MOUTH EVERY 24 HOURS, # 28 tablet, 5 Refills, 03/18/22 11:05:00 EDT, [facility]/pharmacy #[id number], 28, TAKE 1 TABLET BY MOUTH EVERY 24 HOURS, 183, cm, 03/16/22 8:31:00 EDT, Height, 71.3, kg, 08/08/21 0:23:00 EDT, Dry Weight Start Date: 03/18/22 Status: Ordered buPROPion 150 mg/24 hours (XL) oral tablet, extended release 1 tablet, By Mouth, Every 24 hours, # 28 tablet, 2 Refills, [facility]87, 28, TAKE 1 TABLET BY MOUTH EVERY 24 HOURS, 183, cm, 08/12/21 14:20:00 EDT, Height, 71.3, kg, 08/08/21 0:23:00 EDT, Dry Weight Start Date: 09/25/21 Status: Ordered carvedilol 12.5 mg oral tablet 1, tablet, By Mouth, 2 times a day, # 56 tablet, Refills 5, Route to Pharmacy Electronically, [facility] [id number], 183, cm, 05/04/21 3:09:00 EST, Height, 81.7, kg, 04/16/21 3:06:00 EST, Dry Weight Start Date: 07/07/21 Status: Ordered carvedilol 12.5 mg oral tablet See Instructions, TAKE 1 TABLET BY MOUTH TWICE A DAY, # 56 tablet, Refills 5, Tot. Refills 5, 03/18/22 11:05:00 EDT, Instructions Replace Required Details, Route to Pharmacy Electronically, [facility]/pharmacy #[id number], 183, cm, 03/16/22 8:31:00 EDT, Height, 71... Start Date: 03/18/22 Status: Ordered clopidogrel 75 mg oral tablet 1, tablet, By Mouth, Daily, # 28 tablet, Refills 5, Route to Pharmacy Electronically, [facility] 50082, 183, cm, 05/04/21 3:09:00 EST, Height, 81.7, kg, 04/16/21 3:06:00 EST, Dry Weight Start Date: 07/02/21 Status: Ordered clopidogrel 75 mg oral tablet 75 mg, 1, tablet, By Mouth, Daily, for 30 days, # 30 tablet, Refills 5, Tot. Refills 5, Physician Stop 09/14/22 13:18:00 EDT, 03/18/22 13:18:00 EDT, Route to Pharmacy Electronically, [facility]/pharmacy #[id number], 183, cm, 03/16/22 8:31:00 EDT, Height, 71.3, kg,... Start Date: 03/18/22 Stop Date: 09/14/22 Status: Ordered Eliquis 5 mg oral tablet See Instructions, TAKE 1 TABLET BY MOUTH TWICE A DAY, # 56 tablet, 6 Refills, Maintenance, 05/14/2216:30:00 EST, [facility], 183, cm, 03/16/22 8:31:00 EDT, Height, 71.3, kg, 08/08/21 0:23:00 EDT, Dry Weight Start Date: 05/14/22 Status: Ordered Eliquis 5 mg oral tablet 1 tablet, By Mouth, 2 times a day, # 56 tablet, 6 Refills, [facility] 09008, 183, cm, 08/12/21 14:20:00 EDT, Height, 71.3, kg, 08/08/21 0:23:00 EDT, Dry Weight Start Date: 09/26/21 Status: Ordered furosemide 40 mg oral tablet 1, tablet, By Mouth, 2 times a day, # 56 tablet, Refills 2, Maintenance, 07/08/22 11:30:00 EST, Route to Pharmacy Electronically, [facility] 03328, 183, cm, 03/16/22 8:31:00 EDT, Height, 71.3, kg, 08/08/21 0:23:00 EDT, Dry Weight Start Date: 07/08/22 Status: Ordered hydrALAZINE 50 mg oral tablet 1 tablet, By Mouth, 3 times a day, # 84 tablet, 1 Refills, Maintenance, 08/03/22 8:30:00 EDT, [facility], 183, cm, 03/16/22 8:31:00 EDT, Height, 71.3, kg, 08/08/21 0:23:00 EDT, Dry Weight Start Date: 08/03/22 Status: Ordered isosorbide mononitrate 60 mg oral tablet, extended release 1 tablet, By Mouth, Daily in AM, # 28 tablet, 4 Refills, Maintenance, 04/13/22 11:43:00 EST, [facility], 183, cm, 03/16/22 8:31:00 EDT, Height, 71.3, [...] 60 mg, By Mouth, Every 3 hours, PET GROOMER checked. fill on 08/16/22, # 224 tablet, [...] Start Date: 07/08/22 Status: Ordered Potassium Chloride ([id number] 10) 10 mEq oral tablet, extended release See Instructions, TAKE 2 TABLETS BY MOUTH EVERY MORNING AND TAKE 1 TABLET EVERY EVENING, # 84 tablet, 2 Refills, Maintenance, 06/09/22 9:19:00 EST, [facility], 183, cm, 03/16/22 8:31:00 EDT, Height, 71.3, kg, 08/08/21 0:23:00 EDT, Dry Weight Start Date: 06/09/22 Status: Ordered sertraline 100 mg oral tablet 1 tablet, By Mouth, Daily, # 28 tablet, 5 Refills, Maintenance, 06/09/22 8:26:00 EST, [facility], 183, cm, 03/16/22 8:31:00 EDT, Height, 71.3, kg, 08/08/21 0:23:00 EDT, Dry Weight Start Date: 06/09/22 Status: Ordered spironolactone 25 mg oral tablet 1, tablet, By Mouth, Daily, # 28 tablet, Refills 4, Maintenance, 07/08/22 11:30:00 EST, Route to Pharmacy Electronically, [id number], 183, cm, 03/16/22 8:31:00 EDT, Height, 71.3, kg, 08/08/21 0:23:00 EDT, Dry Weight Start Date: 07/08/22 Status: Ordered sucralfate 1 gm oral tablet 1, tablet, By Mouth, 3 times a day before meals, AND BEDTIME., # 112 tablet, Refills 2, Maintenance, 08/03/22 8:30:00 EDT, Route to Pharmacy Electronically, [facility]25, 183, cm, 03/16/22 8:31:00EDT, Height, 71.3, kg, 08/08/21 0:23:00 EDT, Dry We... Start Date: 08/03/22 Status: Ordered Vitamin B-12 1000 mcg oral tablet See Instructions, TAKE 1 TABLET BY MOUTH EVERY DAY, # 28 tablet, Refills 5, Maintenance, 05/14/22 16:30:00 EST, Instructions Replace Required Details, Route to Pharmacy Electronically, [facility], 183, cm, 03/16/22 8:31:00 EDT, Height, 71.3, kg,... Start Date: 05/14/22 Status: Ordered Vitamin B-12 1000 mcg oral tablet 1, tablet, By Mouth, Daily, # 28 tablet, Refills 5, Route to Pharmacy Electronically, [facility] 647[facility], 183, cm, 08/12/21 14:20:00 EDT, Height, 71.3, [...] artery disease by Rolando Rubin M.D. at [facility]. 4In the past; states this has resolved Social History Social History Type Response Smoking Status Never smoker entered on: 08/24/16 Sex Patient Care team information Care Team Personnel Name: Irish Samuel RN Position: [facility] RN Member Role: Primary Care Nurse Name: Mireya Ramsey Position: [facility] RN Supv Member Role: Primary Care Nurse Name: Rhea Betancur RN Position: [facility] SN RN Member Role: Primary Care Nurse Name: Hugo Ayala RN Position: [facility] RN Member Role: Primary Care Nurse Name: Lorna Faust RN Position: [facility] RN Member Role: Primary Care Nurse Name: Wilner Feliciano RN Position: [facility] RN Supv Member Role: Primary Care Nurse Name: David Gonzalez MD Position: [facility] Renal MD Member Role: Lifetime Consulting Physician Address: Address: [address] [place] [address], [address] [facility] [place] [address]- Name: Hannah Garcia NP Position: [facility] PCO Associate Professional Member Role: PCP Address: Address: [address] [place] [address], [address] [place] [address]- [place] Name: Eduin Arias MD Position: [facility] Physician (General Medicine) Member Role: Lifetime Consulting Physician Address: Address: [address] [place] [address], [address] [place] [address]- [place] Name: Ana Herrera RN Position: [facility] RN Member Role: Primary Care Nurse Name: Carlos Montez RN Position: [facility] RN Member Role: Primary Care Nurse Name: Cadence Quach RN Position: [facility] OB RN Member Role: Primary Care Nurse Name: Maggy Tsang RN Position: [facility] RN Member Role: Primary Care Nurse Name: Keyla Keys RN Position: [facility] SN RN Member Role: Primary Care Nurse Name: Марина Guevara RN Position: [facility] RN Member Role: Primary Care Nurse Name: Lyn Helms RN Position: [facility] RN Member Role: Primary Care Nurse Name: Tatum Biswas RN Position: [facility] RN Member Role: Primary Care Nurse Name: Hugo Bateman RN Position: [facility] RN Member Role: Primary Care Nurse Name: Petros Levy RN Position: [facility] RN Member Role: Primary Care Nurse Name: Charly Burns RN Position: [facility] RN Member Role: Primary Care Nurse Name: Izabella Braun RN Position: [facility] RN Member Role: Primary Care Nurse Name: Lyndsay King RN Position: [facility] RN Member Role: Primary Care Nurse Name: Felicia Kerr RN Position: [facility] RN Member Role: Primary Care Nurse Name: Hafsa Goyal RN Position: [facility] RN Member Role: Primary Care Nurse Name: Rosalio Jack RN Position: [facility] RN Member Role: Primary Care Nurse Name: Geovanna Hill RN Position: [facility] RN Member Role: Primary Care Nurse Name: Carmela Houser RN Position: [facility] SN RN Member Role: Primary Care Nurse Name: Michael Dickson RN Position: [facility] RN Member Role: Primary Care Nurse Name: Jessica Lema RN Position: [facility] RN Member Role: Primary Care Nurse Name: Phu Flynn MD Position: [facility] Renal MD Member Role: Lifetime Consulting Physician Address: Address: [address] [place] [address] [facility] [address] Name: Yesica Serna RN Position: [facility] OB RN Member Role: Primary Care Nurse Name: Jesusita Lou RN Position: [facility] OB RN Member Role: Primary Care Nurse Name: Karen Quach RN Position: [facility] PCO w/OE and EZ Script Member Role: Primary Care Nurse Name: Marshall Byrd RN Position: [facility] RN Member Role: Primary Care Nurse Care Team Related Persons Name: DUTCH MAR Address: [place], [place] Name: ALL AYERS Address: home [address] [place], [place] Name: ALL MANZANARES Address: [address] [place] [address] Name: CHRISTEN GRIMALDO Address: [address] [place] [address]
--- OUTSIDE RECORDS SUMMARY | 2023-11-18 12:35 | XMS_ITS | Continuity of Care Document ---
Author Organization [facility] Address [address] [place] [address]- Care Team Providers Care Conference Center Coordinator Name Role Phone Radha ODONNELL, Hannah Primary Care Physician [place] [facility] [place] 05/29/20 - 06/28/20 [facility] [address] [place] [id number]- Allergies, Adverse Reactions, Alerts Substance Reaction Severity [...] Replace Required Details, Route to Pharmacy Electronically, [facility]/pharmacy #[id number], 183, cm, 05/12/20 9:35:00... Start Date: 05/15/20 Status: Ordered amLODIPine 5 mg oral tablet 5 mg, 1, tablet, By Mouth, Daily, # 30 tablet, Refills 5, Tot. Refills 5, Maintenance, 04/29/20 13:47:00 EST, Route to Pharmacy Electronically, [facility]/pharmacy #[id number], 183, cm, 02/05/20 12:53:00 EDT, Height Start Date: 04/29/20 Stop Date: 10/26/20 Status: Ordered atorvastatin 40 mg oral tablet See Instructions, TAKE 1 TABLET BY MOUTH EVERY DAY, # 28 tablet, 5 Refills, Soft Stop, 12/27/19 14:47:00 EDT, [facility]/pharmacy #[id number], 183, cm, 11/05/19 9:35:00 EDT, Height, Dry Weight Start Date: 12/27/19 Status: Ordered buPROPion 150 mg/24 hours (XL) oral tablet, extended release 1 tablet = 150 mg, By Mouth, Every 24 hours, # 30 tablet, 5 Refills, Maintenance, 02/18/20 10:40:00EDT, ER Tablet, [facility]/pharmacy #[id number], Bubble pack and delivery, 1 tablet By Mouth Every 24 hours, 183, cm, 02/05/20 12:53:00 EDT, Height, Dry Weight Start Date: 02/18/20 Status: Ordered carvedilol 12.5 mg oral tablet 12.5 mg, 1, tablet, By Mouth, 2 times a day, # 60 tablet, Refills 2, Tot. Refills 2, Soft Stop, 04/12/20 20:34:00 EST, [id number], cm, 02/05/20 12:53:00EDT, Height Start Date: 04/12/20 Status: Ordered clopidogrel 75 mg oral tablet 75 mg, 1, tablet, By Mouth, Daily, # 30 tablet, Refills 5, Tot. Refills 5, Maintenance, 05/15/20 15:55:00 EST, [id number] 183, cm, 05/12/20 9:35:00 EST, Height Start Date: 05/15/20 Status: Ordered [facility] B-12 1,000 MCG TABLET See Instructions, # 30 tablet, TAKE 1 TABLET BY MOUTH EVERY DAY, [facility]/pharmacy #[id number] Start Date: 03/20/19 Status: Ordered docusate sodium 100 mg oral capsule 100 mg, 1, capsule, By Mouth, 3 times a day, Bubble Pack and Delivery, # 90 capsule, Refills 5, Tot. Refills 5, Maintenance, 11/22/17 13:28:22 EDT, Route to Pharmacy Electronically, [id number], [facility]/pharmacy #[id number] Start Date: 11/22/17 Stop Date: 05/21/18 Status: Ordered Eliquis 5 mg oral tablet 1 tablet = 5 mg, By Mouth, 2 times a day, # 60 tablet, 5 Refills, Maintenance, 02/18/20 14:47:00 EDT, Tablet, [facility]/pharmacy #[id number], 183, cm, 02/05/20 12:53:00 EDT, Height, Dry Weight Start Date: 02/18/20 Status: Ordered furosemide 40 mg oral tablet 40 mg, 1, tablet, By Mouth, 2 times a day, # 60 tablet, Refills 2, Tot. Refills 2, Soft Stop, 05/05/20 14:35:00 EST, Route to Pharmacy Electronically, [facility]/pharmacy #[id number], this replaces previous script. Pt is on 2 tabs daily, 183, cm, 02/05/20 12:53:00... Start Date: 05/05/20 Stop Date: 08/03/20 Status: Ordered hydrALAZINE 50 mg oral tablet 1 tablet = 50 mg, By Mouth, 3 times a day, dose change, # 90 tablet, 1 Refills, Maintenance, 09/10/19 10:37:00 EDT, Tablet, [facility]/pharmacy #[id number], 183, cm, 05/25/19 15:06:00 EST, Height Start Date: 09/10/19 Stop Date: 11/09/19 Status: Ordered isosorbide mononitrate 60 mg oral tablet, extended release 60 mg, 1, tablet, By Mouth, Daily in AM, # 30 tablet, Refills 5, Tot. Refills 5, Soft Stop, 05/03/20 17:20:00 EST, Route to Pharmacy Electronically, [facility]/pharmacy #[id number], 183, cm, 02/05/20 12:53:00 EDT, Height Start Date: 05/03/20 Stop Date: 10/30/20 Status: Ordered NIFEdipine 30 mg oral tablet, extended release 30 mg, 1, tablet, By Mouth, Daily, Bubble Pack and Delivery, # 30 tablet, Refills 3, Tot. Refills 3, Maintenance, 03/27/18 8:38:30 EST, Route to Pharmacy Electronically, [id number], [facility]/pharmacy #[id number] Start Date: 03/27/18 Status: Ordered [...] 60 mg, By Mouth, Every 3 hours, OUTREACH ASSISTANT checked, # 224 tablet, 0 Refills, Acute 05/15/21 15:40:00 EST, 06/26/20 16:56:00 EST, [facility]/pharmacy #[id number], may partial fill upon request;, 06/27/20, 183,cm, 05/12/20 9:35:00 EST, Height Start Date: 06/26/20 Stop Date: 05/15/21 Status: Ordered pantoprazole 40 mg oral delayed release tablet See Instructions, # 28 tablet, Refills 2 Tot. Refills 2, TAKE 1 TABLET BY MOUTH EVERY DAY, [facility]/pharmacy #[id number] Start Date: 02/26/19 Status: Ordered [...] Refills, Maintenance, 04/15/20 9:13:00 EST, ER Tablet, [facility]/pharmacy #[id number], 183, cm, 02/05/20 12:53:00 EDT, Height Start Date: 04/15/20 Status: Ordered sertraline 100 mg oral tablet 1 tablet = 100 mg, By Mouth, Daily, # 90 tablet, 1 Refills, Maintenance, 02/18/20 14:47:00 EDT, Tablet, [facility]/pharmacy #[id number], Bubble pack and delivery, 183, cm, 02/05/20 12:53:00 EDT, Height Start Date: 02/18/20 Stop Date: 08/16/20 Status: Ordered spironolactone 25 mg oral tablet 25 mg, 1, tablet, By Mouth, Daily, # 30 tablet, Refills 2, Tot. Refills 2, Soft Stop, 04/15/20 9:13:00 EST, [id number] 183, cm, 02/05/20 12:53:00 EDT, Height Start Date: 04/15/20 Stop Date: 07/14/20 Status: Ordered sucralfate 1 gm oral tablet 1 Gm, 1, tablet, By Mouth, 3 times a day before meals and bedtime, # 120 tablet, Refills 2, Tot. Refills 2, Maintenance, 04/29/20 13:47:00 EST, Route to Pharmacy Electronically, [facility]/pharmacy #[id number], 183, cm, 02/05/20 12:53:00 EDT, Height Start Date: 04/29/20 Status: Ordered Vitamin B-12 1000 mcg oral tablet 1,000 mcg, 1, tablet, By Mouth, Daily, # 30 tablet, Refills 2, Tot. Refills 2, Soft Stop, 04/15/20 9:13:00 EST, [id number] 183, cm, 02/05/20 12:53:00 EDT, [...] artery disease by Rolando Rubin M.D. at [facility]. 5In the past; states this has resolved Social History Social History Type Response Smoking Status Never smoker entered on: 08/24/16 Sex
--- OUTSIDE RECORDS SUMMARY | 2023-11-18 12:35 | XMS_ITS | Continuity of Care Document ---
Author Organization [facility] Address [address] [place] [address]- Care Team Providers Care Resource Conservation Manager Name Role Phone Radha ODONNELL, Hannah Primary Care Physician [phone] [place] [facility] [place] [facility] [address] [place] [phone]- Allergies, Adverse Reactions, Alerts Substance Reaction Severity [...] 07/08/22 11:30:00 EST, Route to Pharmacy Electronically, [facility] [id number], 183, cm, 03/16/22 8:31:00 EDT, Height, 71.3, kg, 08/08/21 0:23:00 EDT, Dry Weight Start Date: 07/08/22 Status: Ordered amLODIPine 5 mg oral tablet 1 tablet, By Mouth, Daily, # 28 tablet, 4 Refills, Maintenance, 04/13/22 11:43:00 EST, [facility] [id number], 183, cm, 03/16/22 8:31:00 EDT, Height, 71.3, kg, 08/08/21 0:23:00 EDT, Dry Weight Start Date: 04/13/22 Status: Ordered atorvastatin 40 mg oral tablet 1 tablet, By Mouth, Daily, # 28 tablet, 5 Refills, Maintenance, 07/08/22 11:30:00 EST, [facility] STORE 53458, 183, cm, 03/16/22 8:31:00 EDT, Height, 71.3, kg, 08/08/21 0:23:00 EDT, Dry Weight Start Date: 07/08/22 Status: Ordered buPROPion 150 mg/24 hours (XL) oral tablet, extended release See Instructions, TAKE 1 TABLET BY MOUTH EVERY 24 HOURS, # 28 tablet, 5 Refills, 03/18/22 11:05:00 EDT, [facility]/pharmacy #[id number], 28, TAKE 1 TABLET BY MOUTH EVERY 24 HOURS, 183, cm, 03/16/22 8:31:00 EDT, Height, 71.3, kg, 08/08/21 0:23:00 EDT, Dry Weight Start Date: 03/18/22 Status: Ordered buPROPion 150 mg/24 hours (XL) oral tablet, extended release 1 tablet, By Mouth, Every 24 hours, # 28 tablet, 2 Refills, [facility] [id number], 28, TAKE 1 TABLET BY MOUTH EVERY 24 HOURS, 183, cm, 08/12/21 14:20:00 EDT, Height, 71.3, kg, 08/08/21 0:23:00 EDT, Dry Weight Start Date: 09/25/21 Status: Ordered carvedilol 12.5 mg oral tablet 1, tablet, By Mouth, 2 times a day, # 56 tablet, Refills 5, Route to Pharmacy Electronically, [facility] 23814, 183, cm, 05/04/21 3:09:00 EST, Height, 81.7, kg, 04/16/21 3:06:00 EST, Dry Weight Start Date: 07/07/21 Status: Ordered carvedilol 12.5 mg oral tablet See Instructions, TAKE 1 TABLET BY MOUTH TWICE A DAY, # 56 tablet, Refills 5, Tot. Refills 5, 03/18/22 11:05:00 EDT, Instructions Replace Required Details, Route to Pharmacy Electronically, [facility]/pharmacy #[id number], 183, cm, 03/16/22 8:31:00 EDT, Height, 71... Start Date: 03/18/22 Status: Ordered clopidogrel 75 mg oral tablet 1, tablet, By Mouth, Daily, # 28 tablet, Refills 5, Route to Pharmacy Electronically, [facility] 22514, 183, cm, 05/04/21 3:09:00 EST, Height, 81.7, kg, 04/16/21 3:06:00 EST, Dry Weight Start Date: 07/02/21 Status: Ordered clopidogrel 75 mg oral tablet 75 mg, 1, tablet, By Mouth, Daily, for 30 days, # 30 tablet, Refills 5, Tot. Refills 5, Physician Stop 09/14/22 13:18:00 EDT, 03/18/22 13:18:00 EDT, Route to Pharmacy Electronically, [facility]/pharmacy #[id number], 183, cm, 03/16/22 8:31:00 EDT, Height, 71.3, kg,... Start Date: 03/18/22 Stop Date: 09/14/22 Status: Ordered Eliquis 5 mg oral tablet See Instructions, TAKE 1 TABLET BY MOUTH TWICE A DAY, # 56 tablet, 6 Refills, Maintenance, 05/14/2216:30:00 EST, [facility] 19032, 183, cm, 03/16/22 8:31:00 EDT, Height, 71.3, kg, 08/08/21 0:23:00 EDT, Dry Weight Start Date: 05/14/22 Status: Ordered Eliquis 5 mg oral tablet 1 tablet, By Mouth, 2 times a day, # 56 tablet, 6 Refills, [facility] 39820, 183, cm, 08/12/21 14:20:00 EDT, Height, 71.3, kg, 08/08/21 0:23:00 EDT, Dry Weight Start Date: 09/26/21 Status: Ordered furosemide 40 mg oral tablet 1, tablet, By Mouth, 2 times a day, # 56 tablet, Refills 2, Maintenance, 07/08/22 11:30:00 EST, Route to Pharmacy Electronically, [facility] 05830, 183, cm, 03/16/22 8:31:00 EDT, Height, 71.3, kg, 08/08/21 0:23:00 EDT, Dry Weight Start Date: 07/08/22 Status: Ordered hydrALAZINE 50 mg oral tablet 1 tablet, By Mouth, 3 times a day, # 84 tablet, 1 Refills, Maintenance, 08/03/22 8:30:00 EDT, [facility], 183, cm, 03/16/22 8:31:00 EDT, Height, 71.3, kg, 08/08/21 0:23:00 EDT, Dry Weight Start Date: 08/03/22 Status: Ordered isosorbide mononitrate 60 mg oral tablet, extended release 1 tablet, By Mouth, Daily in AM, # 28 tablet, 4 Refills, Maintenance, 04/13/22 11:43:00 EST, [facility], 183, cm, 03/16/22 8:31:00 EDT, Height, 71.3, kg, 08/08/21 0:23:00 EDT, Dry Weight Start Date: 04/13/22 Status: Ordered Mylanta Maximum Strength oral suspension 5 mL, By Mouth, 4 times a day, PRN for control of stomach acid, # 200 mL, 1 Refills, Maintenance, 08/12/21 13:46:00 EDT, Suspension, [facility]/pharmacy #[id number], Partial fill upon patient request if the prescription is for a schedule II opioid drug., 5 mL By M... 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 fill on 08/30/22, # 224 tablet, [...] Start Date: 07/08/22 Status: Ordered Potassium Chloride ([id number] 10) 10 mEq oral tablet, extended release See Instructions, TAKE 2 TABLETS BY MOUTH EVERY MORNING AND TAKE 1 TABLET EVERY EVENING, # 84 tablet, 2 Refills, Maintenance, 06/09/22 9:19:00 EST, [facility] 17986, 183, cm, 03/16/22 8:31:00 EDT, Height, 71.3, kg, 08/08/21 0:23:00 EDT, Dry Weight Start Date: 06/09/22 Status: Ordered sertraline 100 mg oral tablet 1 tablet, By Mouth, Daily, # 28 tablet, 5 Refills, Maintenance, 06/09/22 8:26:00 EST, [facility] 93530, 183, cm, 03/16/22 8:31:00 EDT, Height, 71.3, kg, 08/08/21 0:23:00 EDT, Dry Weight Start Date: 06/09/22 Status: Ordered spironolactone 25 mg oral tablet 1, tablet, By Mouth, Daily, # 28 tablet, Refills 4, Maintenance, 07/08/22 11:30:00 EST, Route to Pharmacy Electronically, [facility] 77504, 183, cm, 03/16/22 8:31:00 EDT, Height, 71.3, kg, 08/08/21 0:23:00 EDT, Dry Weight Start Date: 07/08/22 Status: Ordered sucralfate 1 gm oral tablet 1, tablet, By Mouth, 3 times a day before meals, AND BEDTIME., # 112 tablet, Refills 2, Maintenance, 08/03/22 8:30:00 EDT, Route to Pharmacy Electronically, [facility] 69594, 183, cm, 03/16/22 8:31:00EDT, Height, 71.3, kg, 08/08/21 0:23:00 EDT, Dry We... Start Date: 08/03/22 Status: Ordered Vitamin B-12 1000 mcg oral tablet See Instructions, TAKE 1 TABLET BY MOUTH EVERY DAY, # 28 tablet, Refills 5, Maintenance, 05/14/22 16:30:00 EST, Instructions Replace Required Details, Route to Pharmacy Electronically, [facility], 183, cm, 03/16/22 8:31:00 EDT, Height, 71.3, kg,... Start Date: 05/14/22 Status: Ordered Vitamin B-12 1000 mcg oral tablet 1, tablet, By Mouth, Daily, # 28 tablet, Refills 5, Route to Pharmacy Electronically, [facility], 183, cm, 08/12/21 14:20:00 EDT, Height, 71.3, [...] artery disease by Rolando Rubin M.D. at [facility]. 4In the past; states this has resolved Social History Social History Type Response Smoking Status Never smoker entered on: 08/24/16 Sex Patient Care team information Care Team Personnel Name: Irish Samuel RN Position: [facility] RN Member Role: Primary Care Nurse Name: Mireya Ramsey Position: [facility] RN Supv Member Role: Primary Care Nurse Name: Rhea Betancur RN Position: [facility] SN RN Member Role: Primary Care Nurse Name: Hugo Ayala RN Position: [facility] RN Member Role: Primary Care Nurse Name: Lorna Faust RN Position: [facility] RN Member Role: Primary Care Nurse Name: Wilner Feliciano RN Position: [facility] RN Supv Member Role: Primary Care Nurse Name: David Gonzalez MD Position: [facility] Renal MD Member Role: Lifetime Consulting Physician Address: Address: [address] [place] [address], [address] [facility] [place] [address]- [place] Name: Hannah Garcia NP Position: [facility] PCO Associate Professional Member Role: PCP Address: Address: [address] [place] [address], [address] [place] [address]- [place] Name: Eduin Arias MD Position: [facility] Physician (General Medicine) Member Role: Lifetime Consulting Physician Address: Address: [address] [place] [address], [address] [place] [address]- [place] Name: Ana Herrera RN Position: [facility] RN Member Role: Primary Care Nurse Name: Carlos Montez RN Position: [facility] RN Member Role: Primary Care Nurse Name: Cadence Quach RN Position: [facility] OB RN Member Role: Primary Care Nurse Name: Maggy Tsang RN Position: [facility] RN Member Role: Primary Care Nurse Name: Keyla Keys RN Position: [facility] SN RN Member Role: Primary Care Nurse Name: Марина Guevara RN Position: [facility] RN Member Role: Primary Care Nurse Name: Lyn Helms RN Position: [facility] RN Member Role: Primary Care Nurse Name: Tatum Biswas RN Position: [facility] RN Member Role: Primary Care Nurse Name: Hugo Bateman RN Position: [facility] RN Member Role: Primary Care Nurse Name: Petros Levy RN Position: [facility] RN Member Role: Primary Care Nurse Name: Charly Burns RN Position: [facility] RN Member Role: Primary Care Nurse Name: Izabella Braun RN Position: [facility] RN Member Role: Primary Care Nurse Name: Lyndsay King RN Position: [facility] RN Member Role: Primary Care Nurse Name: Felicia Kerr RN Position: [facility] RN Member Role: Primary Care Nurse Name: Hafsa Goyal RN Position: [facility] RN Member Role: Primary Care Nurse Name: Rosalio Jack RN Position: [facility] RN Member Role: Primary Care Nurse Name: Geovanna Hill RN Position: [facility] RN Member Role: Primary Care Nurse Name: Carmela Houser RN Position: [facility] SN RN Member Role: Primary Care Nurse Name: Michael Dickson RN Position: [facility] RN Member Role: Primary Care Nurse Name: Jessica Lema RN Position: [facility] RN Member Role: Primary Care Nurse Name: Phu Flynn MD Position: [facility] Renal MD Member Role: Lifetime Consulting Physician Address: Address: [address] [place] [address] [facility] [address] Name: Yesica Serna RN Position: [facility] OB RN Member Role: Primary Care Nurse Name: Jesusita Lou RN Position: [facility] OB RN Member Role: Primary Care Nurse Name: Karen Quach RN Position: [facility] PCO w/OE and EZ Script Member Role: Primary Care Nurse Name: Marshall Byrd RN Position: [facility] RN Member Role: Primary Care Nurse Care Team Related Persons Name: DUTCH MAR Address: [place], [place] Name: ALL AYERS Address: [address], [place] Name: ALL MANZANARES Address: [address] [place], [place] Name: CHRISTEN GRIMALDO Address: [address] [place] [address]
--- OUTSIDE RECORDS SUMMARY | 2023-11-18 12:35 | XMS_ITS | Continuity of Care Document ---
Author Organization [facility] Adult Address [address] [place] [id number]- Care Team Providers Care Medical Physics Researcher Name Role Phone Radha ODONNELL, Hannah Primary Care Physician Encounter [facility] Date(s): 03/25/23 - 04/24/23 [facility] [address] [place] [id number]- Allergies, Adverse Reactions, Alerts Substance Reaction Severity [...] 01/09/23 7:22:00 EDT, Route to Pharmacy Electronically, [facility], 183, cm, 10/08/22 16:18:00 EDT, Height, 71.3, kg, 08/08/21 0:23:00 EDT, Dry Weight Start Date: 01/09/23 Status: Ordered amLODIPine 5 mg oral tablet 1 tablet, By Mouth, Daily, # 28 tablet, 5 Refills, Maintenance, 11/25/22 16:21:00 EDT, [facility], 183, cm, 10/08/22 16:18:00 EDT, Height, 71.3, kg, 08/08/21 0:23:00 EDT, Dry Weight Start Date: 11/25/22 Status: Ordered atorvastatin 40 mg oral tablet 1 tablet, By Mouth, Daily, # 28 tablet, 2 Refills, Maintenance, 01/09/23 7:23:00 EDT, [facility], 183, cm, 10/08/22 16:18:00 EDT, Height, 71.3, [...] EDT, Route to Pharmacy Electronically, [facility], 183, cm, 10/08/22 16:18:00 EDT, Height, 71.3, [...] EDT, Route to Pharmacy Electronically, [facility], 183, cm, 03/16/22 8:31:00 EDT, Height, 71.3, [...] 6 Refills, Maintenance, 05/14/2216:30:00 EST, [facility], 183, cm, 03/16/22 8:31:00 EDT, Height, 71.3, kg, 08/08/21 0:23:00 EDT, Dry Weight Start Date: 05/14/22 Status: Ordered Eliquis 5 mg oral tablet 1 tablet, By Mouth, 2 times a day, # 56 tablet, 6 Refills, [facility], 183, cm, 08/12/21 14:20:00 EDT, Height, 71.3, kg, 08/08/21 0:23:00 EDT, Dry Weight Start Date: 09/26/21 Status: Ordered Eliquis 5 mg oral tablet See Instructions, TAKE 1 TABLET BY MOUTH TWICE A DAY, # 56 tablet, 6 Refills, Maintenance, 11/30/2314:39:00 EDT, [facility], 183, cm, 10/08/22 16:18:00 EDT, Height, 71.3, kg, 08/08/21 0:23:00 EDT, Dry Weight Start Date: 11/30/22 Status: Ordered furosemide 40 mg oral tablet 1, tablet, By Mouth, 2 times a day, # 56 tablet, Refills 2, Tot. Refills 2, Maintenance, 04/21/23 18:37:00 EST, Route to Pharmacy Electronically, [facility]/pharmacy #[id number], 183, cm, 03/28/23 11:43:00 [...] tablet, 2 Refills, Maintenance, 11/25/22 16:22:00 EDT, [facility] 723[facility], 183, cm, 10/08/22 16:18:00 EDT, Height, 71.3, kg, 08/08/21 0:23:00 EDT, Dry Weight Start Date: 11/25/22 Status: Ordered isosorbide mononitrate 60 mg oral tablet, extended release 1 tablet, By Mouth, Daily in AM, # 28 tablet, 5 Refills, Maintenance, 04/21/23 18:37:00 EST, [facility]/pharmacy #[id number], 183, cm, 03/28/23 11:43:00 EST, Height, 71.3, kg, 08/08/21 0:23:00 EDT, Dry Weight Start Date: 04/21/23 Stop Date: 10/06/23 Status: Ordered Mylanta Maximum Strength oral suspension 5 mL, By Mouth, 4 times a day, PRN for control of stomach acid, # 200 mL, 1 Refills, Maintenance, 08/12/21 13:46:00 EDT, Suspension, [facility]/pharmacy #[id number], Partial fill upon [...] 60 mg, By Mouth, Every 3 hours, 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 fiull 03/28/23, # 112 tablet, 0 Refills, Maintenance, 03/28/23 7:01:00 EST, [facility]/pharmacy #[id number], 7 days as needs testing performed partial fill upon request;, 183, cm, 10/08/22 16:18:00 EDT, Hei... Start Date: 03/28/23 Stop Date: 04/04/23 Status: Ordered oxyCODONE 30 mg oral tablet 2 tablet = 60 mg, By Mouth, Every 3 hours, 5PMP checked., # 112 tablet, 0 Refills, Maintenance, 04/18/23 17:13:00 EST, [facility]/pharmacy #[id number], may partial fill upon request; fill [...] Start Date: 11/30/22 Status: Ordered Potassium Chloride (Trn-Lctw-Czz 10) 10 mEq oral tablet, extended release See Instructions, TAKE 2 TABLETS BY MOUTH EVERY MORNING AND TAKE 1 TABLET EVERY EVENING, # 84 tablet, 2 Refills, Maintenance, 11/30/22 15:38:00 EDT, [facility], 183, cm, 10/08/22 16:18:00 EDT, Height, 71.3, kg, 08/08/21 0:23:00 EDT, Dry Weight Start Date: 11/30/22 Status: Ordered Potassium Chloride (Uol-Hdjr-Ouf 10) 10 mEq oral tablet, extended release See Instructions, TAKE 2 TABLETS BY MOUTH EVERY MORNING AND TAKE 1 TABLET EVERY EVENING, # 84 tablet, 2 Refills, Maintenance, 09/06/22 10:04:00 EDT, [facility], 183, cm, 03/16/22 8:31:00 EDT, Height, 71.3, kg, 08/08/21 0:23:00 EDT, Dry Weight Start Date: 09/06/22 Status: Ordered sertraline 100 mg oral tablet 1 tablet, By Mouth, Daily, # 28 tablet, 5 Refills, Maintenance, 06/09/22 8:26:00 EST, [facility], 183, cm, 03/16/22 8:31:00 EDT, Height, 71.3, kg, 08/08/21 0:23:00 EDT, Dry Weight Start Date: 06/09/22 Status: Ordered sertraline 100 mg oral tablet See Instructions, TAKE 1 TABLET BY MOUTH EVERY DAY, # 28 tablet, 5 Refills, Maintenance, 11/30/22 15:39:00 EDT, [facility], 183, cm, 10/08/22 16:18:00 EDT, Height, 71.3, kg, 08/08/21 0:23:00 EDT, Dry Weight Start Date: 11/30/22 Status: Ordered spironolactone 25 mg oral tablet 1, tablet, By Mouth, Daily, # 28 tablet, Refills 4, Maintenance, 07/08/22 11:30:00 EST, Route to Pharmacy Electronically, [facility], 183, cm, 03/16/22 8:31:00 EDT, Height, 71.3, kg, 08/08/21 0:23:00 EDT, Dry Weight Start Date: 07/08/22 Status: Ordered spironolactone 25 mg oral tablet See Instructions, TAKE 1 TABLET BY MOUTH EVERY DAY, # 28 tablet, Refills 4, Maintenance, 11/30/22 15:38:00 EDT, Instructions Replace Required Details, Route to Pharmacy Electronically, [facility], 183, cm, 10/08/22 16:18:00 EDT, Height, 71.3, kg,... Start Date: 11/30/22 Status: Ordered sucralfate 1 gm oral tablet 1, tablet, By Mouth, 3 times a day before meals, AND BEDTIME., # 112 tablet, Refills 5, Maintenance, 02/04/23 16:32:00 EDT, Route to Pharmacy Electronically, [facility], 183, cm, 10/08/22 16:18:00 EDT, Height, 71.3, kg, 08/08/21 0:23:00 EDT, Dry... Start Date: 02/04/23 Status: Ordered Vitamin B-12 1000 mcg oral tablet 1, tablet, By Mouth, Daily, # 28 tablet, Refills 11, Tot. Refills 11, Maintenance, 04/21/23 18:37:00 EST, Route to Pharmacy Electronically, [facility]/pharmacy #[id number], 183, cm, 03/28/23 11:43:00 [...] artery disease by Rolando Rubin M.D. at [facility]. 4In the past; states this has [...] Role: Lifetime Consulting Physician Address: Address: [address] [place] [address] [address] [facility] [address]- [place] Name: Hannah Garcia NP Position: [facility] PCO Associate Professional Member Role: PCP Address: Address: [address] [place] [address], [address] [place] [address]- [place] Name: Eduin Arias MD Position: [facility] Renal MD Member Role: Lifetime Consulting Physician Address: Address: [address] [place] [address], [address] [place] [address]- [place] Name: Ana Herrera RN Position: [facility] RN Member Role: Primary Care Nurse Name: Cadence Quach RN Position: [facility] OB RN Member Role: Primary Care Nurse Name: Maggy Tsang RN Position: S RN Member Role: Primary Care Nurse Name: Keyla Keys RN Position: [facility] SN RN Member Role: Primary Care Nurse Name: Марина Guevara RN Position: [facility] RN Member [...] Care Nurse Name: Lyndsay King RN Position: [facility] RN Member Role: Primary Care Nurse Name: Felicia Kerr RN Position: [facility] RN Member [...] Role: Lifetime Consulting Physician Address: Address: [address] [place] [address] [facility] [address] Name: Yesica Serna RN Position: [facility] OB RN Member Role: Primary Care Nurse Name: Jesusita Lou RN Position: [facility] OB RN Member Role: Primary Care Nurse Name: Husam Elizalde RN Position: [facility] RN Member Role: Primary Care Nurse Name: Marshall Byrd RN Position: [facility] RN Member Role: Primary Care Nurse Care Team Related Persons Name: DUTCH MAR Address: [place] [address] Name: JOSENinoska ALL Address: home [address] [place], [place] Name: NINA MANZANARESCK Address: home [address], [place] Name: CHRISTEN GRIMALDO Address: [address] [place] [address]
--- OUTSIDE RECORDS SUMMARY | 2023-11-18 12:35 | XMS_ITS | Continuity of Care Document ---
Author Organization [facility] Adult Address [address] [place] [address]- Care Team Providers Care Damper Worker Name Role Phone Radha ODONNELL, Hannah Primary Care Physician [place] [facility] [place] 07/21[place]20 - 08/20/20 [facility] [address] [place] [id number]- Allergies, Adverse Reactions, Alerts Substance Reaction Severity [...] Replace Required Details, Route to Pharmacy Electronically, [facility]/pharmacy #[id number], 183, cm, 05/12/20 9:35:00... Start Date: 05/15/20 Status: Ordered amLODIPine 5 mg oral tablet 5 mg, 1, tablet, By Mouth, Daily, # 30 tablet, Refills 5, Tot. Refills 5, Maintenance, 04/29/20 13:47:00 EST, Route to Pharmacy Electronically, [facility]/pharmacy #[id number], 183, cm, 02/05/20 12:53:00 EDT, Height Start Date: 04/29/20 Stop Date: 10/26/20 Status: Ordered atorvastatin 40 mg oral tablet See Instructions, TAKE 1 TABLET BY MOUTH EVERY DAY, # 28 tablet, 5 Refills, Soft Stop, 07/05/20 11:24:00 EST, [facility]/pharmacy #[id number], 183, cm, 05/12/20 9:35:00 EST, Height Start Date: 07/05/20 Status: Ordered buPROPion 150 mg/24 hours (XL) oral tablet, extended release 1 tablet = 150 mg, By Mouth, Every 24 hours, # 30 tablet, 5 Refills, Maintenance, 08/01/20 9:50:00 EDT, ER Tablet, [facility]/pharmacy #[id number], Bubble pack and delivery, 1 tablet By Mouth Every 24 hours, 183,cm, 05/12/20 9:35:00 EST, Height Start Date: 08/01/20 Status: Ordered carvedilol 12.5 mg oral tablet 12.5 mg, 1, tablet, By Mouth, 2 times a day, # 60 tablet, Refills 2, Tot. Refills 2, Soft Stop, 07/01/20 13:57:00 EST, Route to Pharmacy Electronically, [facility]/pharmacy #[id number], 183, cm, 05/12/20 9:35:00 EST, Height Start Date: 07/01/20 Status: Ordered clopidogrel 75 mg oral tablet 75 mg, 1, tablet, By Mouth, Daily, # 30 tablet, Refills 5, Tot. Refills 5, Maintenance, 05/15/20 15:55:00 EST, Route to Pharmacy Electronically, [facility]/pharmacy #[id number], 183, cm, 05/12/20 9:35:00 EST, Height Start Date: 05/15/20 Status: Ordered [facility] B-12 1,000 MCG TABLET See Instructions, # 30 tablet, TAKE 1 TABLET BY MOUTH EVERY DAY, [facility]/pharmacy #[id number] Start Date: 03/20/19 Status: Ordered docusate sodium 100 mg oral capsule 100 mg, 1, capsule, By Mouth, 3 times a day, Bubble Pack and Delivery, # 90 capsule, Refills 5, Tot. Refills 5, Maintenance, 11/22/17 13:28:22 EDT, Route to Pharmacy Electronically, [id number], [facility]/pharmacy #[id number] Start Date: 11/22/17 Stop Date: 05/21/18 Status: Ordered Eliquis 5 mg oral tablet 1 tablet = 5 mg, By Mouth, 2 times a day, # 60 tablet, 5 Refills, Maintenance, 08/01/20 11:10:00 EDT, Tablet, [facility]/pharmacy #[id number], 183, cm, 05/12/20 9:35:00 EST, Height Start Date: 08/01/20 Status: Ordered furosemide 40 mg oral tablet 40 mg, 1, tablet, By Mouth, 2 times a day, # 60 tablet, Refills 2, Tot. Refills 2, Soft Stop, 08/03/20 14:35:00 EDT, [id number]. Pt is on 2 tabs daily, 183, cm, 05/12/20 9:35:00... Start Date: 08/03/20 Stop Date: 11/01/20 Status: Ordered hydrALAZINE 50 mg oral tablet 1 tablet = 50 mg, By Mouth, 3 times a day, dose change, # 90 tablet, 1 Refills, Maintenance, 09/10/19 10:37:00 EDT, Tablet, [facility]/pharmacy #[id number], 183, cm, 05/25/19 15:06:00 EST, Height Start Date: 09/10/19 Stop Date: 11/09/19 Status: Ordered isosorbide mononitrate 60 mg oral tablet, extended release 60 mg, 1, tablet, By Mouth, Daily in AM, # 30 tablet, Refills 5, Tot. Refills 5, Soft Stop, 05/03/20 17:20:00 EST, Route to Pharmacy Electronically, [facility]/pharmacy #[id number], 183, cm, 02/05/20 12:53:00 EDT, Height Start Date: 05/03/20 Stop Date: 10/30/20 Status: Ordered NIFEdipine 30 mg oral tablet, extended release 30 mg, 1, tablet, By Mouth, Daily, Bubble Pack and Delivery, # 30 tablet, Refills 3, Tot. Refills 3, Maintenance, 03/27/18 8:38:30 EST, Route to Pharmacy Electronically, [id number], [facility]/pharmacy #[id number] Start Date: 03/27/18 Status: Ordered nitroglycerin 0.4 mg sublingual tablet 1 tablet = 0.4 mg, Sublingual, Every 5 minutes, PRN Chest Pain, # 25 tablet, 3 Refills, Maintenance, 08/24/19 15:40:00 EDT, [facility]/pharmacy #[id number], 183, cm, 05/25/19 15:06:00 EST, Height, 88.3, kg, 08/31/17 3:30:00 EDT, Dry Weight Start Date: 08/24/19 Stop Date: 12/22/19 Status: Ordered oxyCODONE 30 mg oral tablet 2 tablet = 60 mg, By Mouth, Every 3 hours, LABOURERS checked, # 224 tablet, 0 Refills, Acute 05/15/21 15:53:00 EST, 07/10/20 20:59:00 EST, [facility]/pharmacy #[id number], may partial fill upon request;, 07/11/20, 183,cm, 05/12/20 9:35:00 EST, Height Start Date: 07/10/20 Stop Date: 05/15/21 Status: Ordered oxyCODONE 30 mg oral tablet 2 tablet = 60 mg, By Mouth, Every 3 hours, LABOURERS checked, # 224 tablet, 0 Refills, Acute 05/15/21 14:21:00 EST, 08/07/20 17:01:00 EDT, [facility]/pharmacy #[id number], may partial fill upon request;, 08/08/20, 183,cm, 08/05/20 8:57:00 EDT, Height Start Date: 08/07/20 Stop Date: 05/15/21 Status: Ordered pantoprazole 40 mg oral delayed release tablet See Instructions, # 28 tablet, Refills 2 Tot. Refills 2, TAKE 1 TABLET BY MOUTH EVERY DAY, [facility]/pharmacy #[id number] Start Date: 02/26/19 Status: Ordered [...] Refills, Maintenance, 07/02/20 8:26:00 EST, ER Tablet, [facility]/pharmacy #[id number], 183, cm, 05/12/20 9:35:00 EST, Height Start Date: 07/02/20 Status: Ordered sertraline 100 mg oral tablet 1 tablet = 100 mg, By Mouth, Daily, # 90 tablet, 1 Refills, Maintenance, 08/01/20 11:10:00 EDT, Tablet, [facility]/pharmacy #[id number], Bubble pack and delivery, 183, cm, 05/12/20 9:35:00 EST, Height Start Date: 08/01/20 Stop Date: 01/28/21 Status: Ordered spironolactone 25 mg oral tablet 25 mg, 1, tablet, By Mouth, Daily, # 30 tablet, Refills 2, Tot. Refills 2, Soft Stop, 07/02/20 8:26:00 EST, Route to Pharmacy Electronically, [facility]/pharmacy #[id number], 183, cm, 05/12/20 9:35:00 EST, Height Start Date: 07/02/20 Stop Date: 09/30/20 Status: Ordered sucralfate 1 gm oral tablet 1 Gm, 1, tablet, By Mouth, 3 times a day before meals and bedtime, # 120 tablet, Refills 2, Tot. Refills 2, Maintenance, 08/01/20 9:52:00 EDT, Route to Pharmacy Electronically, [facility]/pharmacy #[id number], 183, cm, 05/12/20 9:35:00 EST, Height Start Date: 08/01/20 Status: Ordered Vitamin B-12 1000 mcg oral tablet 1,000 mcg, 1, tablet, By Mouth, Daily, # 30 tablet, Refills 2, Tot. Refills 2, Soft Stop, 07/02/20 8:26:00 EST, Route to Pharmacy Electronically, [facility]/pharmacy #[id number], 183, cm, 05/12/20 9:35:00 EST, [...] artery disease by Rolando Rubin M.D. at [facility]. 5In the past; states this has resolved Social History Social History Type Response Smoking Status Never smoker entered on: 08/24/16 Sex
--- OUTSIDE RECORDS SUMMARY | 2023-11-18 12:35 | XMS_ITS | Continuity of Care Document ---
Author Organization [facility] Adult Address [address] [place] [phone]- Care Team Providers Care Talent Development Coordinator Name Role Phone Radha ODONNELL, Hannah Primary Care Physician [place] [facility] [place]/23 [facility] Adult [address] [place] [phone]- Allergies, Adverse Reactions, Alerts Substance Reaction Severity [...] 06/30/23 12:58:00 EST, Route to Pharmacy Electronically, [facility]/pharmacy #[id number], 183, cm, 05/10/23 11:59:00 EST, Height, 71.3, kg, 08/08/21 0:23:00 EDT, Dry Weight Start Date: 06/30/23 Status: Ordered amLODIPine 5 mg oral tablet 1 tablet, By Mouth, Daily, # 84 tablet, 0 Refills, Maintenance, 06/30/23 12:58:00 EST, [facility]/pharmacy#[id number], 183, cm, 05/10/23 11:59:00 EST, Height, 71.3, kg, 08/08/21 0:23:00 EDT, Dry Weight Start Date: 06/30/23 Status: Ordered atorvastatin 40 mg oral tablet 1 tablet, By Mouth, Daily, # 90 tablet, 1 Refills, Maintenance, 07/01/23 15:53:00 EST, [facility]/pharmacy#[id number], 183, cm, 05/10/23 11:59:00 EST, Height, [...] tablet, 5 Refills, Maintenance, 04/21/23 18:36:00 EST, [facility]/pharmacy#[id number], 1 tablet By Mouth Daily,x28 days, 183, cm, 03/28/23 11:43:00 EST, Height, 71.3, kg, :23:00 EDT, Dry Weight Start Date: 04/21/23 Stop Date: 10/06/23 Status: Ordered carvedilol 12.5 mg oral tablet 1, tablet, By Mouth, 2 times a day, # 180 tablet, Refills 0, Tot. Refills 0, Maintenance, 07/01/23 15:49:00 EST, Route to Pharmacy Electronically, [facility]/pharmacy #[id number], 183, cm, 05/10/23 11:59:00 EST, Height, 71.3, kg, 08/08/21 0:23:00 EDT, Dry Weight Start Date: 07/01/23 Status: Ordered cholecalciferol 50,000 intl units oral capsule 1 capsule = 50,000 International_Units, By Mouth, Every week, # 13 capsule, 3 Refills, Maintenance,03/19/23 15:28:00 EDT, Capsule, [facility]/pharmacy #[id number], Partial fill upon patient request if the prescription is for a schedule II opioid drug., 183, cm, 0... Start Date: 03/19/23 Stop Date: 03/13/24 Status: Ordered cholecalciferol 50,000 intl units oral capsule 1 capsule = 50,000 International_Units, By Mouth, Every 7 days, # 13 capsule, 3 Refills, Maintenance, 03/20/23 8:29:00 EST, Capsule, [facility]/pharmacy #[id number], Partial fill upon patient request, 183, cm, 10/08/22 16:18:00 EDT, Height, 71.3, kg, 08/08/21 0:23... Start Date: 03/20/23 Stop Date: 03/14/24 Status: Ordered clopidogrel 75 mg oral tablet 1, tablet, By Mouth, Daily, # 28 tablet, Refills 5, Tot. Refills 5, Maintenance, 06/08/23 14:08:00 EST, Route to Pharmacy Electronically, [facility]/pharmacy #[id number], 183, cm, 05/10/23 [...] Refills, [facility] STORE [id number], 183, cm, 08/12/21 14:20:00 EDT, Height, 71.3, kg, 08/08/21 0:23:00 EDT, Dry Weight Start Date: 09/26/21 Status: Ordered Eliquis 5 mg oral tablet See Instructions, TAKE 1 TABLET BY MOUTH TWICE A DAY, # 56 tablet, 6 Refills, Maintenance, 06/07/2409:23:00 EST, [facility]/pharmacy #[id number], 183, cm, 05/10/23 11:59:00 EST, Height, 71.3, kg, 08/08/21 0:23:00 EDT, Dry Weight Start Date: 06/07/23 Status: Ordered furosemide 40 mg oral tablet 1, tablet, By Mouth, 2 times a day, # 168 tablet, Refills 1, Tot. Refills 1, Maintenance, 06/30/23 12:20:00 EST, Route to Pharmacy Electronically, [facility]/pharmacy #[id number], 183, cm, 05/10/23 [...] tablet, 0 Refills, Maintenance, 07/01/23 15:48:00 EST, [facility]/pharmacy #[id number], 183, cm, 05/10/23 [...] Status: Ordered oxyCODONE 30 mg oral tablet 1 tablet = 30 mg, By Mouth, Every 4 hours, # 42 tablet, 0 Refills, Maintenance, 07/27/23 8:11:00 EDT, [facility]/pharmacy #[id number], may partial fill upon request; fill 07/13/2023, 183, cm, 05/10/23 11:59:00 EST, Height, 71.3, kg, 08/08/21 0:23:00 EDT, Dry Weight Start Date: 07/27/23 Stop Date: 08/03/23 Status: Ordered pantoprazole 40 mg oral delayed release tablet 1 tablet, By Mouth, Daily, # 28 tablet, 4 Refills, Maintenance, 06/24/23 7:44:00 EST, 183, cm, 05/10/23 11:59:00 EST, Height, 71.3, kg, 08/08/21 0:23:00 EDT, Dry Weight Start Date: 06/24/23 Status: Ordered Potassium Chloride (Beg-Tbvl-Mzf 10) 10 mEq oral tablet, extended release See Instructions, TAKE 2 TABLETS BY MOUTH EVERY MORNING AND TAKE 1 TABLET EVERY EVENING, # 270 tablet, 1 Refills, Maintenance, 07/01/23 15:52:00 EST, [facility]/pharmacy #[id number], 183, cm, 05/10/23 11:59:00 EST, Height, 71.3, kg, 08/08/21 0:23:00 EDT, Dry Weight Start Date: 07/01/23 Status: Ordered sertraline 100 mg oral tablet 1 tablet, By Mouth, Daily, # 84 tablet, 0 Refills, Maintenance, 06/30/23 12:22:00 EST, [facility]/pharmacy#[id number], 183, cm, 05/10/23 11:59:00 EST, Height, 71.3, kg, 08/08/21 0:23:00 EDT, Dry Weight Start Date: 06/30/23 Stop Date: 09/22/23 Status: Ordered sertraline 100 mg oral tablet See Instructions, TAKE 1 TABLET BY MOUTH EVERY DAY, # 28 tablet, 5 Refills, Maintenance, 11/30/22 15:39:00 EDT, [facility] STORE [id number], 183, cm, 10/08/22 16:18:00 EDT, Height, 71.3, kg, 08/08/21 0:23:00 EDT, Dry Weight Start Date: 11/30/22 Status: Ordered spironolactone 25 mg oral tablet 1, tablet, By Mouth, Daily, # 28 tablet, Refills 4, Maintenance, 06/24/23 7:44:00 EST, Route to Pharmacy Electronically, [facility] ST[facility] [id number], 183, cm, 05/10/23 11:59:00 EST, Height, 71.3, kg, 08/08/21 0:23:00 EDT, Dry Weight Start Date: 06/24/23 Status: Ordered sucralfate 1 gm oral tablet 1, tablet, By Mouth, 3 times a day before meals, AND BEDTIME., # 112 tablet, Refills 5, Maintenance, 02/04/23 16:32:00 EDT, Route to Pharmacy Electronically, [facility] STORE [id number], 183, cm, 10/08/22 16:18:00 EDT, Height, 71.3, [...] Care Nurse Name: Rhea Betancur RN Position: [facility] RN Member Role: Primary Care Nurse Name: Hugo Ayala RN Position: S RN Member Role: Primary Care Nurse Name: Lorna Faust RN Position: S RN Member Role: Primary Care Nurse Name: David Gonzalez MD Position: [facility] Renal MD Member Role: Lifetime Consulting Physician Address: Address: [address] [place] [address] [address] [place] [address]- [place] Name: Hannah Garcia NP Position: [facility] PCO Associate Professional Member Role: PCP Address: Address: [address] [facility], [address]rd [place] [address]- [place] Name: Eduin Arias MD Position: [facility] Renal MD Member Role: Lifetime Consulting Physician Address: Address: [address] [place] [address], [address] [place] [address]- [place] Name: Ana Herrera RN Position: [facility] AMB Nurse Member Role: Primary Care Nurse Name: Carlos Montez RN Position: [facility] Outreach Member Role: Primary Care Nurse Name: Cadence Quach RN Position: [facility] OB RN Member Role: Primary Care Nurse Name: Maggy Tsang RN Position: [facility] RN Member Role: Primary Care Nurse Name: Keyla Keys RN Position: [facility] SN RN Member Role: Primary Care Nurse Name: Марина Guevara RN Position: [facility] SN RN Member Role: Primary Care Nurse Name: Lyn Helms RN Position: [facility] RN Member Role: Primary Care Nurse Name: Tatum Biswas RN Position: [facility] RN Member Role: Primary Care Nurse Name: Hugo Bateman RN Position: [facility] RN Member Role: Primary Care Nurse Name: Petros Levy RN Position: [facility] RN Member Role: Primary Care Nurse Name: Izabella Braun RN Position: [facility] RN Member Role: Primary Care Nurse Name: Hafsa Goyal RN Position: [facility] RN Member Role: Primary Care Nurse Name: Rosalio Jack RN Position: [facility] RN Member Role: Primary Care Nurse Name: Carmela Houser RN Position: [facility] SN RN Member Role: Primary Care Nurse Name: Michael Dickson RN Position: [facility] RN Member Role: Primary Care Nurse Name: Jessica Lema RN Position: [facility] RN Member Role: Primary Care Nurse Name: Phu Flynn MD Position: [facility] Renal MD Member Role: Lifetime Consulting Physician Address: Address: [address] [place] [address] [facility] [place] [address]- [place] Name: Yesica Serna RN Position: [facility] OB RN Member Role: Primary Care Nurse Name: Jesusita Lou RN Position: [facility] OB RN Member Role: Primary Care Nurse Name: Husam Elizalde RN Position: S RN Member Role: Primary Care Nurse Name: Marshall Byrd RN Position: [facility] RN Member Role: Primary Care Nurse Care Team Related Persons Name: MELLODUTCH HURTADO Address: [place] [address] Name: ALL AYERS Address: home [address] [place], [place] Name: ALL MANZANARES Address: [address] [place] [address] Name: CHRISTEN GRIMALDO Address: [address] [place] [address]
--- OUTSIDE RECORDS SUMMARY | 2023-11-18 12:35 | XMS_ITS | Continuity of Care Document ---
Author Organization [facility] Adult Address [address] [place] [address]- Care Team Providers Care Public Health Advisor Name Role Phone Radha ODONNELL, Hannah Primary Care Physician [place] [facility] [place] 06[place]19/22 [facility] [address] [place] [phone]- Allergies, Adverse Reactions, Alerts Substance Reaction Severity [...] 04/13/22 11:43:00 EST, Route to Pharmacy Electronically, [facility] ST[facility] [id number], 183, cm, 03/16/22 8:31:00 EDT, Height, 71.3, kg, 08/08/21 0:23:00 EDT, Dry Weight Start Date: 04/13/22 Status: Ordered amLODIPine 5 mg oral tablet 1 tablet, By Mouth, Daily, # 28 tablet, 4 Refills, Maintenance, 04/13/22 11:43:00 EST, [facility] 17782, 183, cm, 03/16/22 8:31:00 EDT, Height, 71.3, kg, 08/08/21 0:23:00 EDT, Dry Weight Start Date: 04/13/22 Status: Ordered atorvastatin 40 mg oral tablet 1 tablet, By Mouth, Daily, # 28 tablet, 5 Refills, 12/23/21 11:53:00 EDT, [facility]/pharmacy #[id number], 183, cm, 10/20/21 10:31:00 EDT, Height, 71.3, kg, 08/08/21 0:23:00 EDT, Dry Weight Start Date: 12/23/21 Status: Ordered buPROPion 150 mg/24 hours (XL) oral tablet, extended release See Instructions, TAKE 1 TABLET BY MOUTH EVERY 24 HOURS, # 28 tablet, 5 Refills, 03/18/22 11:05:00 EDT, [facility]/pharmacy #[id number], 28, TAKE 1 TABLET BY MOUTH EVERY 24 HOURS, 183, cm, 03/16/22 8:31:00 EDT, Height, 71.3, kg, 08/08/21 0:23:00 EDT, Dry Weight Start Date: 03/18/22 Status: Ordered buPROPion 150 mg/24 hours (XL) oral tablet, extended release 1 tablet, By Mouth, Every 24 hours, # 28 tablet, 2 Refills, [facility] ST[facility] [id number], 28, TAKE 1 TABLET BY MOUTH EVERY 24 HOURS, 183, cm, 08/12/21 14:20:00 EDT, Height, 71.3, kg, 08/08/21 0:23:00 EDT, Dry Weight Start Date: 09/25/21 Status: Ordered carvedilol 12.5 mg oral tablet 1, tablet, By Mouth, 2 times a day, # 56 tablet, Refills 5, Route to Pharmacy Electronically, [facility] STORE [id number], 183, cm, 05/04/21 3:09:00 EST, Height, 81.7, kg, 04/16/21 3:06:00 EST, Dry Weight Start Date: 07/07/21 Status: Ordered carvedilol 12.5 mg oral tablet See Instructions, TAKE 1 TABLET BY MOUTH TWICE A DAY, # 56 tablet, Refills 5, Tot. Refills 5, 03/18/22 11:05:00 EDT, Instructions Replace Required Details, Route to Pharmacy Electronically, [facility]/pharmacy #[id number], 183, cm, 03/16/22 8:31:00 EDT, Height, 71... Start Date: 03/18/22 Status: Ordered clopidogrel 75 mg oral tablet 1, tablet, By Mouth, Daily, # 28 tablet, Refills 5, Route to Pharmacy Electronically, [facility] 54915, 183, cm, 05/04/21 3:09:00 EST, Height, 81.7, kg, 04/16/21 3:06:00 EST, Dry Weight Start Date: 07/02/21 Status: Ordered clopidogrel 75 mg oral tablet 75 mg, 1, tablet, By Mouth, Daily, for 30 days, # 30 tablet, Refills 5, Tot. Refills 5, Physician Stop 09/14/22 13:18:00 EDT, 03/18/22 13:18:00 EDT, Route to Pharmacy Electronically, [facility]/pharmacy #[id number], 183, cm, 03/16/22 8:31:00 EDT, Height, 71.3, kg,... Start Date: 03/18/22 Stop Date: 09/14/22 Status: Ordered Eliquis 5 mg oral tablet See Instructions, TAKE 1 TABLET BY MOUTH TWICE A DAY, # 56 tablet, 6 Refills, Maintenance, 05/14/2216:30:00 EST, [facility] 29551, 183, cm, 03/16/22 8:31:00 EDT, Height, 71.3, kg, 08/08/21 0:23:00 EDT, Dry Weight Start Date: 05/14/22 Status: Ordered Eliquis 5 mg oral tablet 1 tablet, By Mouth, 2 times a day, # 56 tablet, 6 Refills, [facility] ST[facility] 87357, 183, cm, 08/12/21 14:20:00 EDT, Height, 71.3, kg, 08/08/21 0:23:00 EDT, Dry Weight Start Date: 09/26/21 Status: Ordered furosemide 40 mg oral tablet 1, tablet, By Mouth, 2 times a day, # 56 tablet, Refills 2, Maintenance, 04/13/22 11:44:00 EST, Route to Pharmacy Electronically, [facility] [id number], 183, cm, 03/16/22 8:31:00 EDT, Height, 71.3, kg, 08/08/21 0:23:00 EDT, Dry Weight Start Date: 04/13/22 Status: Ordered hydrALAZINE 50 mg oral tablet 1 tablet, By Mouth, 3 times a day, # 84 tablet, 1 Refills, Maintenance, 06/09/22 9:19:00 EST, [facility] 84249, 183, cm, 03/16/22 8:31:00 EDT, Height, 71.3, kg, 08/08/21 0:23:00 EDT, Dry Weight Start Date: 06/09/22 Status: Ordered isosorbide mononitrate 60 mg oral tablet, extended release 1 tablet, By Mouth, Daily in AM, # 28 tablet, 4 Refills, Maintenance, 04/13/22 11:43:00 EST, [facility] 64027, 183, cm, 03/16/22 8:31:00 EDT, Height, 71.3, kg, 08/08/21 0:23:00 EDT, Dry Weight Start Date: 04/13/22 Status: Ordered lidocaine 0.5% topical gel 1 application, Topically, 3 times a day, for 30 days, # 240 Gm, 1 Refills, Acute 07/22/22 9:46:00 EST, 05/23/22 9:46:00 EST, Gel, [facility]/pharmacy #[id number], Partial fill upon patient request if the prescription is for a schedule II opioid drug., 1 applicatio... Start Date: 05/23/22 Stop Date: 07/22/22 Status: Ordered Mylanta Maximum Strength oral suspension 5 mL, By Mouth, 4 times a day, PRN for control of stomach acid, # 200 mL, 1 Refills, Maintenance, 08/12/21 13:46:00 EDT, Suspension, [facility]/pharmacy #[id number], Partial fill upon patient request [...] 60 mg, By Mouth, Every 3 hours, MICA BUILDER checked. fill on 06/21/22, # 224 tablet, 0 Refills, Acute 05/15/23 10:08:00 EST, 06/18/22 12:24:00 EST, [facility]/pharmacy #[id number], may partial fill upon request;, 183, cm, 03/16/22 8:31:00 EDT, Height, 71.3, kg,... Start Date: 06/18/22 Stop Date: 05/15/23 Status: Ordered pantoprazole 40 mg oral delayed release tablet 1 tablet, By Mouth, Daily, for 30 days, # 30 tablet, 3 Refills, Physician Stop 07/16/22 13:20:00 EST, 03/18/22 13:20:00 EDT, 183, cm, 03/16/22 8:31:00 EDT, Height, 71.3, kg, 08/08/21 0:23:00 EDT, DryWeight Start Date: 03/18/22 Stop Date: 07/16/22 Status: Ordered Potassium Chloride (Bct-Vwyx-Rgo 10) 10 mEq oral tablet, extended release See Instructions, TAKE 2 TABLETS BY MOUTH EVERY MORNING AND TAKE 1 TABLET EVERY EVENING, # 84 tablet, 2 Refills, Maintenance, 06/09/22 9:19:00 EST, [facility] 24003, 183, cm, 03/16/22 8:31:00 EDT, Height, 71.3, kg, 08/08/21 0:23:00 EDT, Dry Weight Start Date: 06/09/22 Status: Ordered sertraline 100 mg oral tablet 1 tablet, By Mouth, Daily, # 28 tablet, 5 Refills, Maintenance, 06/09/22 8:26:00 EST, [facility] 36211, 183, cm, 03/16/22 8:31:00 EDT, Height, 71.3, kg, 08/08/21 0:23:00 EDT, Dry Weight Start Date: 06/09/22 Status: Ordered spironolactone 25 mg oral tablet 1, tablet, By Mouth, Daily, for 30 days, # 30 tablet, Refills 3, Tot. Refills 3, Physician Stop 07/16/22 13:20:00 EST, 03/18/22 13:20:00 EDT, Route to Pharmacy Electronically, [facility]/pharmacy #[id number], 183, cm, 03/16/22 8:31:00 EDT, Height, 71.3, kg, ... Start Date: 03/18/22 Stop Date: 07/16/22 Status: Ordered sucralfate 1 gm oral tablet 1, tablet, By Mouth, 3 times a day before meals, AND BEDTIME., # 112 tablet, Refills 2, Maintenance, 05/18/22 8:37:00 EST, Route to Pharmacy Electronically, [facility] STORE [id number], 183, cm, 03/16/22 8:31:00EDT, Height, 71.3, kg, 08/08/21 0:23:00 EDT, Dry We... Start Date: 05/18/22 Status: Ordered Vitamin B-12 1000 mcg oral tablet See Instructions, TAKE 1 TABLET BY MOUTH EVERY DAY, # 28 tablet, Refills 5, Maintenance, 05/14/22 16:30:00 EST, Instructions Replace Required Details, Route to Pharmacy Electronically, [facility] ST[facility] [id number], 183, cm, 03/16/22 8:31:00 EDT, Height, 71.3, kg,... Start Date: 05/14/22 Status: Ordered Vitamin B-12 1000 mcg oral tablet 1, tablet, By Mouth, Daily, # 28 tablet, Refills 5, Route to Pharmacy Electronically, [facility] ST[facility] 84886, 183, cm, 08/12/21 14:20:00 EDT, Height, 71.3, [...] artery disease by Rolando Rubin M.D. at [facility]. 4In the past; states this has resolved Social History Social History Type Response Smoking Status Never smoker entered on: 08/24/16 Sex Patient Care team information Care Team Personnel Name: Irish Samuel RN Position: [facility] RN Member Role: Primary Care Nurse Name: Mireya Ramsey Position: [facility] RN Supv Member Role: Primary Care Nurse Name: Rhea Betancur RN Position: [facility] SN RN Member Role: Primary Care Nurse Name: Hugo Ayala RN Position: [facility] RN Member Role: Primary Care Nurse Name: Lorna Faust RN Position: [facility] RN Member Role: Primary Care Nurse Name: Wilner Feliciano RN Position: [facility] RN Supv Member Role: Primary Care Nurse Name: David Gonzalez MD Position: [facility] Renal MD Member Role: Lifetime Consulting Physician Address: Address: [address] [place] [address], [address] [facility] [place] [address]- Name: Hannah Garcia NP Position: [facility] PCO Associate Professional Member Role: PCP Address: Address: [address] [place] [address], [address] [place] [address]- [place] Name: Eduin Arias MD Position: [facility] Physician (General Medicine) Member Role: Lifetime Consulting Physician Address: Address: [address] [place] [address], [address] [place] [address]- [place] Name: Ana Herrera RN Position: [facility] RN Member Role: Primary Care Nurse Name: Carlos Montez RN Position: S RN Member Role: Primary Care Nurse Name: Cadence Quach RN Position: [facility] OB RN Member Role: Primary Care Nurse Name: Maggy Tsang RN Position: [facility] RN Member Role: Primary Care Nurse Name: Keyla Keys RN Position: [facility] SN RN Member Role: Primary Care Nurse Name: Марина Guevara RN Position: [facility] RN Member Role: Primary Care Nurse Name: Lyn Helms RN Position: [facility] RN Member Role: Primary Care Nurse Name: Tatum Biswas RN Position: [facility] RN Member Role: Primary Care Nurse Name: Hugo Bateman RN Position: [facility] RN Member Role: Primary Care Nurse Name: Petros Levy RN Position: [facility] RN Member Role: Primary Care Nurse Name: Izabella Braun RN Position: [facility] RN Member Role: Primary Care Nurse Name: Lyndsay King RN Position: [facility] RN Member Role: Primary Care Nurse Name: Felicia Kerr RN Position: [facility] RN Member Role: Primary Care Nurse Name: Hafsa Goyal RN Position: [facility] RN Member Role: Primary Care Nurse Name: Rosalio Jack RN Position: [facility] RN Member Role: Primary Care Nurse Name: Geovanna Hill RN Position: [facility] RN Member Role: Primary Care Nurse Name: Carmela Houser RN Position: [facility] SN RN Member Role: Primary Care Nurse Name: Michael Dickson RN Position: [facility] RN Member Role: Primary Care Nurse Name: Jessica Lema RN Position: [facility] RN Member Role: Primary Care Nurse Name: Phu Flynn MD Position: [facility] Renal MD Member Role: Lifetime Consulting Physician Address: Address: [address] [place] [address] [facility] [address] Name: Yesica Serna RN Position: [facility] OB RN Member Role: Primary Care Nurse Name: Jesusita Lou RN Position: [facility] OB RN Member Role: Primary Care Nurse Name: Karen Quach RN Position: [facility] PCO w/OE and EZ Script Member Role: Primary Care Nurse Name: Marshall Byrd RN Position: [facility] RN Member Role: Primary Care Nurse Care Team Related Persons Name: DUTCH MAR Address: [place] [address] Name: ALL AYERS Address: [address] [place] [address] Name: ALL MANZANARES Address: [address] [place] [address] Name: CHRISTEN GRIMALDO Address: [address] [place] [address]
--- OUTSIDE RECORDS SUMMARY | 2023-11-18 12:35 | XMS_ITS | Continuity of Care Document ---
Author Organization [facility] Adult Address [address] [place] [address]- Care Team Providers Care Casing Soaker Name Role Phone Radha ODONNELL, Hannah Primary Care Physician [phone] Encounter [facility] [place], [place] Date(s): 04/11/23 - 05/11/23 [facility] Adult [address] [place] [id number]- Allergies, Adverse Reactions, Alerts Substance Reaction Severity [...] 01/09/23 7:22:00 EDT, Route to Pharmacy Electronically, [facility] ST[facility], 183, cm, 10/08/22 16:18:00 EDT, Height, 71.3, kg, 08/08/21 0:23:00 EDT, Dry Weight Start Date: 01/09/23 Status: Ordered amLODIPine 5 mg oral tablet 1 tablet, By Mouth, Daily, # 28 tablet, 5 Refills, Maintenance, 11/25/22 16:21:00 EDT, [facility] ST[facility] 13544, 183, cm, 10/08/22 16:18:00 EDT, Height, 71.3, kg, 08/08/21 0:23:00 EDT, Dry Weight Start Date: 11/25/22 Status: Ordered atorvastatin 40 mg oral tablet 1 tablet, By Mouth, Daily, # 28 tablet, 2 Refills, Maintenance, 01/09/23 7:23:00 EDT, [facility], 183, cm, 10/08/22 16:18:00 EDT, Height, 71.3, [...] EDT, Route to Pharmacy Electronically, [facility], 183, cm, 10/08/22 16:18:00 EDT, Height, 71.3, [...] EDT, Route to Pharmacy Electronically, [facility], 183, cm, 03/16/22 8:31:00 EDT, Height, 71.3, [...] 6 Refills, Maintenance, 05/14/2216:30:00 EST, [facility], 183, cm, 03/16/22 8:31:00 EDT, Height, 71.3, kg, 08/08/21 0:23:00 EDT, Dry Weight Start Date: 05/14/22 Status: Ordered Eliquis 5 mg oral tablet 1 tablet, By Mouth, 2 times a day, # 56 tablet, 6 Refills, [facility], 183, cm, 08/12/21 14:20:00 EDT, Height, 71.3, kg, 08/08/21 0:23:00 EDT, Dry Weight Start Date: 09/26/21 Status: Ordered Eliquis 5 mg oral tablet See Instructions, TAKE 1 TABLET BY MOUTH TWICE A DAY, # 56 tablet, 6 Refills, Maintenance, 11/30/2314:39:00 EDT, [facility], 183, cm, 10/08/22 16:18:00 EDT, Height, 71.3, kg, 08/08/21 0:23:00 EDT, Dry Weight Start Date: 11/30/22 Status: Ordered furosemide 40 mg oral tablet 1, tablet, By Mouth, 2 times a day, # 56 tablet, Refills 2, Tot. Refills 2, Maintenance, 04/21/23 18:37:00 EST, Route to Pharmacy Electronically, [facility]/pharmacy #[id number], 183, cm, 03/28/23 11:43:00 EST, [...] tablet, 2 Refills, Maintenance, 04/27/23 13:02:00 EST, [facility] STORE 87764, 183, cm, 03/28/23 11:43:00 EST, Height, 71.3, kg, 08/08/21 0:23:00 EDT, Dry Weight Start Date: 04/27/23 Status: Ordered isosorbide mononitrate 60 mg oral tablet, extended release 1 tablet, By Mouth, Daily in AM, # 28 tablet, 5 Refills, Maintenance, 04/21/23 18:37:00 EST, [facility]/pharmacy #[id number], 183, cm, 03/28/23 11:43:00 EST, Height, 71.3, kg, 08/08/21 0:23:00 EDT, Dry Weight Start Date: 04/21/23 Stop Date: 10/06/23 Status: Ordered Mylanta Maximum Strength oral suspension 5 mL, By Mouth, 4 times a day, PRN for control of stomach acid, # 200 mL, 1 Refills, Maintenance, 08/12/21 13:46:00 EDT, Suspension, [facility]/pharmacy #[id number], Partial fill upon patient request if the prescription is for a schedule II opioid drug., 5 mL By M... Start Date: 08/12/21 Status: Ordered nitroglycerin 0.4 mg sublingual tablet 1 tablet = 0.4 mg, Sublingual, Every 5 minutes, PRN Chest Pain, # 25 tablet, 3 Refills, Maintenance, 08/24/19 15:40:00 EDT[id number], cm, 05/25/19 15:06:00 EST, Height, 88.3, kg, 08/31/17 3:30:00 EDT, Dry Weight Start Date: 08/24/19 Stop Date: 12/22/19 Status: Ordered oxyCODONE 30 mg oral tablet 2 tablet = 60 mg, By Mouth, Every 3 hours, CHAIN SALES CONSULTANT checked., # 112 tablet, 0 Refills, Maintenance, 05/10/23 13:38:00 EST, [facility]/pharmacy #[id number], may partial fill upon request;, 183, cm, 05/10/23 11:59:00 EST, Height, 71.3, kg, 08/08/21 0:23:00 EDT, Dry Weight Start Date: 05/10/23 Stop Date: 05/17/23 Status: Ordered oxyCODONE 30 mg oral tablet 2 tablet = 60 mg, By Mouth, Every 3 hours, CHAIN SALES CONSULTANT checked. [email or web address] 03/28/23, # 112 tablet, 0 Refills, Maintenance, 03/28/23 7:01:00 EST, [facility]/pharmacy #[id number], 7 days as needs testing [...] Start Date: 11/30/22 Status: Ordered Potassium Chloride ([id number] 10) 10 mEq oral tablet, extended release See Instructions, TAKE 2 TABLETS BY MOUTH EVERY MORNING AND TAKE 1 TABLET EVERY EVENING, # 84 tablet, 2 Refills, Maintenance, 04/27/23 13:02:00 EST, [facility], 183, cm, 03/28/23 11:43:00 EST, Height, 71.3, kg, 08/08/21 0:23:00 EDT, Dry Weight Start Date: 04/27/23 Status: Ordered sertraline 100 mg oral tablet 1 tablet, By Mouth, Daily, # 28 tablet, 5 Refills, Maintenance, 06/09/22 8:26:00 EST, [facility], 183, cm, 03/16/22 8:31:00 EDT, Height, 71.3, kg, 08/08/21 0:23:00 EDT, Dry Weight Start Date: 06/09/22 Status: Ordered sertraline 100 mg oral tablet See Instructions, TAKE 1 TABLET BY MOUTH EVERY DAY, # 28 tablet, 5 Refills, Maintenance, 11/30/22 15:39:00 EDT, [facility], 183, cm, 10/08/22 16:18:00 EDT, Height, 71.3, kg, 08/08/21 0:23:00 EDT, Dry Weight Start Date: 11/30/22 Status: Ordered spironolactone 25 mg oral tablet 1, tablet, By Mouth, Daily, # 28 tablet, Refills 4, Maintenance, 07/08/22 11:30:00 EST, Route to Pharmacy Electronically, [facility], 183, cm, 03/16/22 8:31:00 EDT, Height, 71.3, kg, 08/08/21 0:23:00 EDT, Dry Weight Start Date: 07/08/22 Status: Ordered spironolactone 25 mg oral tablet See Instructions, TAKE 1 TABLET BY MOUTH EVERY DAY, # 28 tablet, Refills 4, Maintenance, 11/30/22 15:38:00 EDT, Instructions Replace Required Details, Route to Pharmacy Electronically, [facility] STORE 33325, 183, cm, 10/08/22 16:18:00 EDT, Height, 71.3, kg,... Start Date: 11/30/22 Status: Ordered sucralfate 1 gm oral tablet 1, tablet, By Mouth, 3 times a day before meals, AND BEDTIME., # 112 tablet, Refills 5, Maintenance, 02/04/23 16:32:00 EDT, Route to Pharmacy Electronically, [facility] ST[facility] 53045, 183, cm, 10/08/22 16:18:00 EDT, Height, 71.3, kg, 08/08/21 0:23:00 EDT, Dry... Start Date: 02/04/23 Status: Ordered Vitamin B-12 1000 mcg oral tablet 1, tablet, By Mouth, Daily, # 28 tablet, Refills 11, Tot. Refills 11, Maintenance, 04/21/23 18:37:00 EST, Route to Pharmacy Electronically, [facility]/pharmacy #[id number], 183, cm, 03/28/23 11:43:00 EST, [...] artery disease by Rolando Rubin M.D. at [facility]. 4In the past; states this has resolved Social History Social History Type Response Smoking Status Never smoker entered on: 08/24/16 Sex Patient Care team information Care Team Personnel Name: Irish Samuel RN Position: S RN Member Role: Primary Care Nurse Name: Mireya Ramsey Position: [facility] RN Supv Member Role: Primary Care Nurse Name: Rhea Betancur RN Position: [facility] SN RN Member Role: Primary Care Nurse Name: Hugo Ayala RN Position: [facility] RN Member Role: Primary Care Nurse Name: Lorna Faust RN Position: [facility] RN Member Role: Primary Care Nurse Name: David Gonzalez MD Position: [facility] Renal MD Member Role: Lifetime Consulting Physician Address: Address: [address] [place] [address] [address] [place] [address]- [place] Name: Hannah Garcia NP Position: [facility] PCO Associate Professional Member Role: PCP Address: Address: [address] [place] [address], [address] [place] [address]- [place] Name: Eduin Arias MD Position: [facility] Renal MD Member Role: Lifetime Consulting Physician Address: Address: [address] [place] [address], [address] [address]- [place] Name: Ana Herrera RN Position: [facility] RN Member Role: Primary Care Nurse Name: Cadence Quach RN Position: [facility] OB RN Member Role: Primary Care Nurse Name: Maggy Tsang RN Position: [facility] RN Member Role: Primary Care Nurse Name: Keyla Keys RN Position: [facility] SN RN Member Role: Primary Care Nurse Name: Марина Guevara RN Position: [facility] SN RN Member Role: Primary Care Nurse Name: Lyn Helms RN Position: [facility] RN Member Role: Primary Care Nurse Name: Tatum Biswas RN Position: [facility] RN Member Role: Primary Care Nurse Name: Hugo Bateman RN Position: [facility] RN Member Role: Primary Care Nurse Name: Petros Levy RN Position: [facility] RN Member Role: Primary Care Nurse Name: Izabella Braun RN Position: [facility] RN Member Role: Primary Care Nurse Name: Lyndsay King RN Position: [facility] RN Member Role: Primary Care Nurse Name: Felicia Kerr NP Position: [facility] Medical Student Member Role: Primary Care Nurse Name: Hafsa Goyal RN Position: [facility] RN Member Role: Primary Care Nurse Name: Rosalio Jack RN Position: [facility] RN Member Role: Primary Care Nurse Name: Carmela Houser RN Position: [facility] SN RN Member Role: Primary Care Nurse Name: Michael Dickson RN Position: [facility] RN Member Role: Primary Care Nurse Name: Jessica Lema RN Position: [facility] RN Member Role: Primary Care Nurse Name: Phu Flynn MD Position: [facility] Renal MD Member Role: Lifetime Consulting Physician Address: Address: [address] [place] [address] [facility] [address] Name: Yesica Serna RN Position: [facility] OB RN Member Role: Primary Care Nurse Name: Jesusita Lou RN Position: [facility] OB RN Member Role: Primary Care Nurse Name: Husam Elizalde RN Position: [facility] RN Member Role: Primary Care Nurse Name: Marshall Byrd RN Position: [facility] RN Member Role: Primary Care Nurse Care Team Related Persons Name: DUTCH MAR Address: home [place], [place] Name: ALL AYERS Address: home [address], [place] Name: ALL MANZANARES Address: home [address], [place] Name: CHRISTEN GRIMALDO Address: home [address], [place]
--- OUTSIDE RECORDS SUMMARY | 2023-11-18 12:35 | XMS_ITS | Continuity of Care Document ---
Author Organization [facility] Adult Address [address] [place] [address]- Care Team Providers Care Utility Driver Name Role Phone Radha ODONNELL, Hannah Primary Care Physician Encounter [facility] [place] [place] Date(s): 11/29/19 - 12/29/19 [facility] Adult [address] [place] [id number]- [facility] Allergies, Adverse Reactions, Alerts Substance Reaction Severity [...] Replace Required Details, Route to Pharmacy Electronically, [facility]/pharmacy #[id number], 183gerald, 11/05/19 9:35:0... Start Date: 12/24/19 Status: Ordered amLODIPine 5 mg oral tablet See Instructions, # 28 tablet, Refills 2 Tot. Refills 2, TAKE 1 TABLET BY MOUTH EVERY DAY, [facility]/pharmacy #[id number] Start Date: 03/26/19 Status: Ordered amLODIPine 5 mg oral tablet 5 mg, 1, tablet, By Mouth, Daily, # 30 tablet, Refills 5, Tot. Refills 5, Maintenance, 11/26/19 14:40:00 EDT, Route to Pharmacy Electronically, [facility]/pharmacy #[id number], 183, cm, 11/05/19 9:35:00 EDT, Height, Dry Weight Start Date: 11/26/19 Stop Date: 05/24/20 Status: Ordered atorvastatin 40 mg oral tablet See Instructions, TAKE 1 TABLET BY MOUTH EVERY DAY, # 28 tablet, 5 Refills, Soft Stop, 12/27/19 14:47:00 EDT, [facility]/pharmacy #[id number], 183, cm, 11/05/19 9:35:00 EDT, Height, Dry Weight Start Date: 12/27/19 Status: Ordered buPROPion 150 mg/24 hours (XL) oral tablet, extended release 1 tablet = 150 mg, By Mouth, Every 24 hours, # 30 tablet, 5 Refills, Maintenance, 10/26/19 13:15:00EDT, ER Tablet, [facility]/pharmacy #[id number], 1 tablet By Mouth Every 24 hours, 183, cm, 05/25/19 15:06:00 EST, Height, Dry Weight Start Date: 10/26/19 Status: Ordered buPROPion 150 mg/24 hours (XL) oral tablet, extended release 1 tablet = 150 mg, By Mouth, Every 24 hours, # 30 tablet, 5 Refills, Maintenance, 05/20/19 10:41:00EST, ER Tablet, [facility]/pharmacy #[id number], Bubble pack and delivery, 1 tablet By Mouth Every 24 hours, 183, cm, 01/23/19 14:41:00 EDT, Height, 88.3, kg, 08/31... Start Date: 05/20/19 Status: Ordered carvedilol 12.5 mg oral tablet 12.5 mg, 1, tablet, By Mouth, 2 times a day, # 60 tablet, Refills 5, Tot. Refills 5, Soft Stop, 10/26/19 11:37:00 EDT, Route to Pharmacy Electronically, [facility]/pharmacy #[id number], 183, cm, 05/25/19 15:06:00EST, Height Start Date: 10/26/19 Status: Ordered clopidogrel 75 mg oral tablet 75 mg, 1, tablet, By Mouth, Daily, # 30 tablet, Refills 5, Tot. Refills 5, Maintenance, 12/24/19 13:07:00 EDT, Route to Pharmacy Electronically, [facility]/pharmacy #[id number], 183, cm, 11/05/19 9:35:00 EDT, Height, Dry Weight Start Date: 12/24/19 Status: Ordered [facility] B-12 1,000 MCG TABLET See Instructions, # 30 tablet, TAKE 1 TABLET BY MOUTH EVERY DAY, [facility]/pharmacy #[id number] Start Date: 03/20/19 Status: Ordered docusate sodium 100 mg oral capsule 100 mg, 1, capsule, By Mouth, 3 times a day, Bubble Pack and Delivery, # 90 capsule, Refills 5, Tot. Refills 5, Maintenance, 11/22/17 13:28:22 EDT, Route to Pharmacy Electronically, [id number], [facility]/pharmacy #[id number] Start Date: 11/22/17 Stop Date: 05/21/18 Status: Ordered Eliquis 5 mg oral tablet 1 tablet = 5 mg, By Mouth, 2 times a day, # 60 tablet, 5 Refills, Maintenance, 05/21/19 10:06:00 EST, Tablet, [facility]/pharmacy #[id number], 183, cm, 01/23/19 14:41:00 EDT, Height, 88.3, kg, 08/31/17 3:30:00 EDT, Dry Weight Start Date: 05/21/19 Status: Ordered Eliquis 5 mg oral tablet 1 tablet = 5 mg, By Mouth, 2 times a day, # 60 tablet, 3 Refills, Soft Stop, 10/26/19 13:50:00 EDT,[facility]/pharmacy #[id number], 183, cm, 05/25/19 15:06:00 EST, Height Start Date: 10/26/19 Stop Date: 02/23/20 Status: Ordered furosemide 40 mg oral tablet 40 mg, 1, tablet, By Mouth, Daily, # 30 tablet, Refills 5, Tot. Refills 5, Maintenance, 10/26/19 13:16:00 EDT, Route to Pharmacy Electronically, [facility]/pharmacy #[id number], 183, cm, 05/25/19 15:06:00 EST, Height, Dry Weight Start Date: 10/26/19 Status: Ordered furosemide 40 mg oral tablet 40 mg, 1, tablet, By Mouth, 2 times a day, # 60 tablet, Refills 1, Tot. Refills 1, Soft Stop, 10/26/19 13:50:00 EDT, [id number] previous [facility]. Pt is on 2 tabs daily, 183, cm, 05/25/19 15:06:00... Start Date: 10/26/19 Stop Date: 12/25/19 Status: Ordered hydrALAZINE 25 mg oral tablet 25 mg, 1, tablet, By Mouth, 2 times a day, # 60 tablet, Refills 5, Tot. Refills 5, Maintenance, 06/18/19 14:34:00 EST, Route to Pharmacy Electronically, [facility]/pharmacy #[id number], 183, cm, 05/25/19 15:06:00EST, Height, 88.3, kg, 08/31/17 3:30:00 EDT, Dry We... Start Date: 06/18/19 Stop Date: 12/15/19 Status: Ordered hydrALAZINE 50 mg oral tablet 1 tablet = 50 mg, By Mouth, 3 times a day, dose change, # 90 tablet, 1 Refills, Maintenance, 09/10/19 10:37:00 EDT, Tablet, [facility]/pharmacy #[id number], 183, cm, 05/25/19 15:06:00 EST, Height Start Date: 09/10/19 Stop Date: 11/09/19 Status: Ordered isosorbide mononitrate 60 mg oral tablet, extended release 60 mg, 1, tablet, By Mouth, Daily in AM, # 30 tablet, Refills 5, Tot. Refills 5, Soft Stop, 09/11/19 14:15:00 EDT, Route to Pharmacy Electronically, [facility]/pharmacy #[id number], 183, cm, 05/25/19 15:06:00 EST, Height, Dry Weight Start Date: 09/11/19 Stop Date: 03/09/20 Status: Ordered NIFEdipine 30 mg oral tablet, extended release 30 mg, 1, tablet, By Mouth, Daily, Bubble Pack and Delivery, # 30 tablet, Refills 3, Tot. Refills 3, Maintenance, 03/27/18 8:38:30 EST, Route to Pharmacy Electronically, [id number], [facility]/pharmacy #[id number] Start Date: 03/27/18 Status: Ordered nitroglycerin 0.4 mg sublingual tablet 1 tablet = 0.4 mg, Sublingual, Every 5 minutes, PRN Chest Pain, # 25 tablet, 3 Refills, Maintenance, 08/24/19 15:40:00 EDT, [facility]/pharmacy #[id number], 183, cm, 05/25/19 15:06:00 EST, Height, 88.3, kg, 08/31/17 3:30:00 EDT, Dry Weight Start Date: 08/24/19 Stop Date: 12/22/19 Status: Ordered oxyCODONE 30 mg oral tablet 2 tablet = 60 mg, By Mouth, Every 3 hours, 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 Refills 2, TAKE 1 TABLET BY MOUTH EVERY DAY, [facility]/pharmacy #[id number] Start Date: 02/26/19 Status: Ordered [...] 01/29/19 17:07:02 EDT, Route to Pharmacy Electronically, [id number], [facility]/pharmacy #[id number], Bubble pack and Delivery Start Date: 01/29/19 Stop Date: 07/28/19 Status: Ordered potassium chloride 10 mEq oral tablet, extended release 1 tablet = 10 mEq, By Mouth, 2 times a day, # 60 tablet, 2 Refills, Maintenance, 10/26/19 13:50:00 EDT, ER Tablet, [facility]/pharmacy #[id number], 183, cm, 05/25/19 15:06:00 EST, Height Start Date: 10/26/19 Stop Date: 01/24/20 Status: Ordered sertraline 100 mg oral tablet 1 tablet = 100 mg, By Mouth, Daily, # 30 tablet, 6 Refills, Maintenance, 07/16/19 14:54:00 EST, Tablet, [facility]/pharmacy #[id number], 183, cm, 05/25/19 15:06:00 EST, [...] 6 Refills, Maintenance, 12/28/19 10:04:00 EDT, Tablet, [facility]/pharmacy #[id number], 183, cm, 11/05/19 9:35:00 EDT, Height, Dry Weight Start Date: 12/28/19 Status: Ordered spironolactone 25 mg oral tablet See Instructions, # 30 tablet, Refills 1 Tot. Refills 1, TAKE 1 TABLET BY MOUTH EVERY DAY, [facility]/pharmacy #[id number] Start Date: 03/26/19 Status: Ordered spironolactone 25 mg oral tablet 25 mg, 1, tablet, By Mouth, Daily, # 30 tablet, Refills 1, Tot. Refills 1, Maintenance, 05/21/19 10:07:00 EST, Route to Pharmacy Electronically, [facility]/pharmacy #[id number], 183, cm, 01/23/19 14:41:00 EDT, Height, 88.3, kg, 08/31/17 3:30:00 EDT, Dry Weight Start Date: 05/21/19 Status: Ordered spironolactone 25 mg oral tablet 25 mg, 1, tablet, By Mouth, Daily, # 30 tablet, Refills 1, Tot. Refills 1, Maintenance, 11/26/19 14:50:00 EDT, Route to Pharmacy Electronically, [facility]/pharmacy #[id number], 183, cm, 11/05/19 9:35:00 EDT, Height, Dry Weight Start Date: 11/26/19 Stop Date: 01/25/20 Status: Ordered sucralfate 1 gm oral tablet 1 Gm, 1, tablet, By Mouth, 3 times a day before meals and bedtime, # 120 tablet, Refills 2, Tot. Refills 2, Soft Stop, 06/18/19 9:36:00 EST, Route to Pharmacy Electronically, [facility]/pharmacy #[id number], 183,cm, 05/25/19 15:06:00 EST, Height, 88.3, kg, 08/31/... Start Date: 06/18/19 Stop Date: 09/16/19 Status: Ordered sucralfate 1 gm oral tablet 1 Gm, 1, tablet, By Mouth, 3 times a day before meals and bedtime, # 120 tablet, Refills 2, Tot. Refills 2, Maintenance, 11/26/19 8:36:00 EDT, Route to Pharmacy Electronically, [facility]/pharmacy #[id number], 183, cm, 11/05/19 9:35:00 EDT, Height, Dry Weight Start Date: 11/26/19 Status: Ordered Vitamin B-12 1000 mcg oral tablet See Instructions, # 28 tablet, Refills 1 Tot. Refills 1, TAKE 1 TABLET BY MOUTH EVERY DAY, [facility]/pharmacy #[id number] Start Date: 03/26/19 Status: Ordered Vitamin B12 1000 mcg oral tablet 1 tablet = 1,000 mcg, By Mouth, Daily, # 30 tablet, 5 Refills, Maintenance, 12/24/19 13:07:00 EDT, Tablet, [facility]/pharmacy #[id number], 183, cm, 11/05/19 9:35:00 EDT, [...] M.D. at [facility]. 5In the past; states this has resolved Social History Social History Type Response Smoking Status Never smoker entered on: 08/24/16 Sex
--- OUTSIDE RECORDS SUMMARY | 2023-11-18 12:35 | XMS_ITS | Continuity of Care Document ---
Author Organization [facility] Adult Address [address] [place] [address]- Care Team Providers Care Redipper Name Role Phone Radha ODONNELL, Hannah Primary Care Physician [place] [facility] [place] 02/12/20 [facility] Adult [address] [place] [id number] Encounter Diagnosis Loss of perception for taste(Discharge Diagnosis) - 02/05/20 Attending Physician: Not on Staff, Attending MD [...] Required Details, Route to Pharmacy Electronically, [facility]/pharmacy #[id number], 183, cm, 11/05/19 9:35:0... Start Date: 12/24/19 Status: Ordered amLODIPine 5 mg oral tablet 5 mg, 1, tablet, By Mouth, Daily, # 30 tablet, Refills 5, Tot. Refills 5, Maintenance, 11/26/19 14:40:00 EDT, Route to Pharmacy Electronically, [facility]/pharmacy #[id number], 183, cm, 11/05/19 9:35:00 EDT, Height, Dry Weight Start Date: 11/26/19 Stop Date: 05/24/20 Status: Ordered atorvastatin 40 mg oral tablet See Instructions, TAKE 1 TABLET BY MOUTH EVERY DAY, # 28 tablet, 5 Refills, Soft Stop, 12/27/19 14:47:00 EDT, [facility]/pharmacy #[id number], 183, cm, 11/05/19 9:35:00 EDT, Height, Dry Weight Start Date: 12/27/19 Status: Ordered buPROPion 150 mg/24 hours (XL) oral tablet, extended release 1 tablet = 150 mg, By Mouth, Every 24 hours, # 30 tablet, 5 Refills, Maintenance, 05/20/19 10:41:00EST, ER Tablet, [facility]/pharmacy #[id number], Bubble pack and delivery, 1 tablet By Mouth Every 24 hours, 183, cm, 01/23/19 14:41:00 EDT, Height, 88.3, kg, 08/31... Start Date: 05/20/19 Status: Ordered carvedilol 12.5 mg oral tablet 12.5 mg, 1, tablet, By Mouth, 2 times a day, # 60 tablet, Refills 5, Tot. Refills 5, Soft Stop, 10/26/19 11:37:00 EDT, Route to Pharmacy Electronically, [facility]/pharmacy #[id number], 183, cm, 05/25/19 15:06:00EST, Height Start Date: 10/26/19 Status: Ordered clopidogrel 75 mg oral tablet 75 mg, 1, tablet, By Mouth, Daily, # 30 tablet, Refills 5, Tot. Refills 5, Maintenance, 12/24/19 13:07:00 EDT, Route to Pharmacy Electronically, [facility]/pharmacy #[id number], 183, cm, 11/05/19 9:35:00 EDT, Height, Dry Weight Start Date: 12/24/19 Status: Ordered [facility] B-12 1,000 MCG TABLET See Instructions, # 30 tablet, TAKE 1 TABLET BY MOUTH EVERY DAY, [facility]/pharmacy #[id number] Start Date: 03/20/19 Status: Ordered docusate sodium 100 mg oral capsule 100 mg, 1, capsule, By Mouth, 3 times a day, Bubble Pack and Delivery, # 90 capsule, Refills 5, Tot. Refills 5, Maintenance, 11/22/17 13:28:22 EDT, Route to Pharmacy Electronically, [id number], [facility]/pharmacy #[id number] Start Date: 11/22/17 Stop Date: 05/21/18 Status: Ordered Eliquis 5 mg oral tablet 1 tablet = 5 mg, By Mouth, 2 times a day, # 60 tablet, 5 Refills, Maintenance, 05/21/19 10:06:00 EST, Tablet, [facility]/pharmacy #[id number], 183, cm, 01/23/19 14:41:00 EDT, Height, 88.3, kg, 08/31/17 3:30:00 EDT, Dry Weight Start Date: 05/21/19 Status: Ordered furosemide 40 mg oral tablet 40 mg, 1, tablet, By Mouth, 2 times a day, # 60 tablet, Refills 2, Tot. Refills 2, Soft Stop, 02/06/20 10:28:00 EDT, [id number]. Pt is on 2 tabs daily, 183, cm, 02/05/20 12:53:00... Start Date: 02/06/20 Stop Date: 05/06/20 Status: Ordered hydrALAZINE 50 mg oral tablet 1 tablet = 50 mg, By Mouth, 3 times a day, dose change, # 90 tablet, 1 Refills, Maintenance, 09/10/19 10:37:00 EDT, Tablet, [facility]/pharmacy #[id number], 183, cm, 05/25/19 15:06:00 EST, Height Start Date: 09/10/19 Stop Date: 11/09/19 Status: Ordered isosorbide mononitrate 60 mg oral tablet, extended release 60 mg, 1, tablet, By Mouth, Daily in AM, # 30 tablet, Refills 5, Tot. Refills 5, Soft Stop, 09/11/19 14:15:00 EDT, Route to Pharmacy Electronically, [facility]/pharmacy #[id number], 183, cm, 05/25/19 15:06:00 EST, Height, Dry Weight Start Date: 09/11/19 Stop Date: 03/09/20 Status: Ordered NIFEdipine 30 mg oral tablet, extended release 30 mg, 1, tablet, By Mouth, Daily, Bubble Pack and Delivery, # 30 tablet, Refills 3, Tot. Refills 3, Maintenance, 03/27/18 8:38:30 EST, Route to Pharmacy Electronically, [id number], [facility]/pharmacy #[id number] Start Date: 03/27/18 Status: Ordered nitroglycerin 0.4 mg sublingual tablet 1 tablet = 0.4 mg, Sublingual, Every 5 minutes, PRN Chest Pain, # 25 tablet, 3 Refills, Maintenance, 08/24/19 15:40:00 EDT, [facility]/pharmacy #[id number], 183, cm, 05/25/19 15:06:00 EST, Height, 88.3, kg, 08/31/17 3:30:00 EDT, Dry Weight Start Date: 08/24/19 Stop Date: 12/22/19 Status: Ordered oxyCODONE 30 mg oral tablet 2 tablet = 60 mg, By Mouth, Every 3 hours, SCOW HAND checked, # 224 tablet, 0 Refills, Acute 05/15/20 15:15:00 EST, 02/06/20 17:37:00 EDT, [facility]/pharmacy #[id number], may partial fill upon request;, 02/08/20, 183,cm, 02/05/20 12:53:00 EDT, Height, Dry Weight Start Date: 02/06/20 Stop Date: 05/15/20 Status: Ordered pantoprazole 40 [...] 1 TABLET BY MOUTH EVERY DAY, [facility]/pharmacy #[id number] Start Date: 02/26/19 Status: Ordered potassium chloride 10 mEq oral tablet, extended release See Instructions, take 2 tabs in am and 1 tab in pm, # 90 tablet, 2 Refills, Maintenance, 02/06/20 16:13:00 EDT, ER Tablet, [facility]/pharmacy #[id number], 183, cm, 02/05/20 12:53:00 EDT, Height [...] 1 TABLET BY MOUTH EVERY DAY, [facility]/pharmacy #[id number] Start Date: 03/26/19 Status: Ordered sucralfate 1 gm oral tablet 1 Gm, 1, tablet, By Mouth, 3 times a day before meals and bedtime, # 120 tablet, Refills 2, Tot. Refills 2, Maintenance, 11/26/19 8:36:00 EDT, Route to Pharmacy Electronically, [facility]/pharmacy #[id number], 183, cm, 11/05/19 9:35:00 EDT, Height, Dry Weight Start Date: 11/26/19 Status: Ordered Vitamin B-12 1000 mcg oral tablet See Instructions, # 28 tablet, Refills 1 Tot. Refills 1, TAKE 1 TABLET BY MOUTH EVERY DAY, [facility]/pharmacy #[id number] Start Date: 03/26/19 Status: Ordered Problem List Condition Effective Dates [...] artery disease by Rolando Rubin M.D. at [facility]. 5In the past; states this has resolved Diagnosis Diagnosis Type Effective Dates Health Status Clinical Service Informant Loss of perception for taste Discharge Diagnosis 02/05/20 Vital Signs Most recent to oldest [Reference Range]: 1 Height 183 cm (02/05/20 12:53 PM) Social History Social History Type Response Smoking Status Never smoker entered on: 08/24/16 Sex
--- OUTSIDE RECORDS SUMMARY | 2023-11-18 12:35 | XMS_ITS | Continuity of Care Document ---
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 [employer] Name Role Phone Radha ODONNELL, Hannah Primary Care Physician Encounter [facility] [place] Date(s): 05/23/21 - 06/28/[address] [address] Attending Physician: Piero Gifford MD Admitting Physician: Piero Gifford MD Referring Physician: Summer DIAZ, Mikki Guo Allergies, Adverse Reactions, Alerts Substance Reaction Severity [...] tablet, Refills 2, Route to Pharmacy Electronically, [id number], 183, cm, 08/05/20 8:57:00 EDT, Height Start Date: 03/14/21 Status: Ordered amLODIPine 5 mg oral tablet 1 tablet, By Mouth, Daily, # 28 tablet, 5 Refills, [facility], 183, cm, 08/05/20 8:57:00 EDT, Height Start Date: 04/10/21 Status: Ordered atorvastatin 40 mg oral tablet 1 tablet, By Mouth, Daily, # 28 tablet, 5 Refills, Maintenance, 11/19/20 20:20:00 EDT, [facility]/pharmacy#[id number], 183, cm, 08/05/20 8:57:00 EDT, Height Start Date: 11/19/20 Status: Ordered buPROPion 150 mg/24 hours (XL) oral tablet, extended release 1 tablet, By Mouth, Every 24 hours, # 28 tablet, 2 Refills, [id number], 28, TAKE 1 TABLET BY MOUTH EVERY 24 HOURS, 183, cm, 08/05/20 8:57:00 EDT, Height Start Date: 03/10/21 Status: Ordered carvedilol 12.5 mg oral tablet 1, tablet, By Mouth, 2 times a day, # 56 tablet, Refills 2, Route to Pharmacy Electronically, [id number], 183, cm, 08/05/20 8:57:00 EDT, Height Start Date: 04/10/21 Status: Ordered clopidogrel 75 mg oral tablet 1, tablet, By Mouth, Daily, # 30 tablet, Refills 5, Tot. Refills 0, Maintenance, 11/04/20 9:43:00 EDT, Route to Pharmacy Electronically, [facility], 183, cm, 08/05/20 8:57:00 EDT, Height Start Date: 11/04/20 Status: Ordered docusate sodium 100 mg oral capsule 100 mg, 1, capsule, By Mouth, 3 times a day, Bubble Pack and Delivery, # 90 capsule, Refills 5, Tot. Refills 5, Maintenance, 11/22/17 13:28:22 EDT, Route to Pharmacy Electronically, [id number], [facility]/pharmacy #[id number] Start Date: 11/22/17 Stop Date: 05/21/18 Status: Ordered Eliquis 5 mg oral tablet 1 tablet, By Mouth, 2 times a day, # 56 tablet, 6 Refills, [facility], 183, cm, 08/05/20 8:57:00 EDT, Height Start Date: 01/27/21 Status: Ordered furosemide 40 mg oral tablet 1, tablet, By Mouth, 2 times a day, # 56 tablet, Refills 2, Route to Pharmacy Electronically, [id number], 183, cm, 08/05/20 8:57:00 EDT, Height Start Date: 03/10/21 Status: Ordered hydrALAZINE 50 mg oral tablet 1 tablet = 50 mg, By Mouth, 3 times a day, dose change, # 90 tablet, 1 Refills, Maintenance, 09/10/19 10:37:00 EDT, Tablet, [facility]/pharmacy #[id number], 183, cm, 05/25/19 15:06:00 EST, Height Start Date: 09/10/19 Stop Date: 11/09/19 Status: Ordered isosorbide mononitrate 60 mg oral tablet, extended release 1 tablet, By Mouth, Daily in AM, # 28 tablet, 2 Refills, [facility], 183, cm, 05/04/21 3:09:00EST, Height, 81.7, kg, 04/16/21 3:06:00 EST, Dry Weight Start Date: 06/11/21 Status: Ordered Knee Support See Instructions, # 1 Unknown, Maintenance, knee brace Dx: Osteoarthritis and instability M12.90 Use daily PRN for Lifetime, 05/06/21 11:48:00 EST, Supply Start Date: 05/06/21 Status: Ordered lidocaine 5% topical film 1 patch, Topically, Daily, PRN Pain , Mild, Place on areas of pain remove patches after 12 hours, #30 patch, 0 Refills, Maintenance, 05/06/21 10:58:00 EST, Patch, [facility], Partial fill upon patient request if the prescription is fo... Start Date: 05/06/21 Status: Ordered NIFEdipine 30 mg oral tablet, extended release 30 mg, 1, tablet, By Mouth, Daily, Bubble Pack and Delivery, # 30 tablet, Refills 3, Tot. Refills 3, Maintenance, 03/27/18 8:38:30 EST, Route to Pharmacy Electronically, [id number], [facility]/pharmacy #[id number] Start Date: 03/27/18 Status: Ordered nitroglycerin 0.4 mg sublingual tablet 1 tablet = 0.4 mg, Sublingual, Every 5 minutes, PRN Chest Pain, # 25 tablet, 3 Refills, Maintenance, 08/24/19 15:40:00 EDT, [facility]/pharmacy #[id number], 183, cm, 05/25/19 15:06:00 EST, Height, 88.3, kg, 08/31/17 3:30:00 EDT, Dry Weight Start Date: 08/24/19 Stop Date: 12/22/19 Status: Ordered oxyCODONE 30 mg oral tablet 2 tablet = 60 mg, By Mouth, Every 3 hours, for 14 days, [employer] 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 Fill on 06/17/21, # 224 tablet, 0 Refills, Acute 06/29/21 17:14:00 EST, 06/15/21 17:14:00 EST, [facility]/pharmacy #[id number], may partial fill upon request;, 183, cm, 05/04/21 3:09:00 EST, Heigh... Start Date: 06/15/21 Stop Date: 06/29/21 Status: Ordered pantoprazole 40 mg oral delayed release tablet 1 tablet, By Mouth, Daily, # 28 tablet, 2 Refills, 183, cm, 08/05/20 8:57:00 EDT, Height Start Date: 04/13/21 Status: Ordered Potassium Chloride (Mbo-Goib-Jai 10) 10 mEq oral tablet, extended release See Instructions, TAKE 2 TABLETS BY MOUTH EVERY MORNING AND TAKE 1 TABLET EVERY EVENING, # 84 tablet, 2 Refills, [id number], 183, cm, 08/05/20 8:57:00 EDT, Height Start Date: 04/10/21 Status: Ordered sertraline 100 mg oral tablet 1 tablet, By Mouth, Daily, # 28 tablet, 5 Refills, [facility], 183, cm, 05/04/21 3:09:00 EST, Height, 81.7, kg, 04/16/21 3:06:00 EST, Dry Weight Start Date: 06/11/21 Status: Ordered spironolactone 25 mg oral tablet 1, tablet, By Mouth, Daily, # 28 tablet, Refills 2, Route to Pharmacy Electronically, [facility], 183, cm, 08/05/20 8:57:00 EDT, Height Start Date: 04/10/21 Status: Ordered sucralfate 1 gm oral tablet 1, tablet, By Mouth, 3 times a day before meals, AND BEDTIME., # 270 tablet, Refills 0, Tot. Refills 0, 05/31/21 15:27:00 EST, Route to Pharmacy Electronically, [facility]/pharmacy #[id number], 183, cm, 05/04/21 3:09:00 EST, Height, 81.7, kg, 04/16/21 3:06:00 EST,... Start Date: 05/31/21 Status: Ordered Vitamin B-12 1000 mcg oral tablet 1, tablet, By Mouth, Daily, # 28 tablet, Refills 5, Route to Pharmacy Electronically, [facility], 183, cm, 08/05/20 8:57:00 EDT, Height Start [...] artery disease by Rolando Rubin M.D. at [facility]. 5In the past; states this has resolved Social History Social History Type Response Smoking Status Never smoker entered on: 08/24/16 Sex
--- OUTSIDE RECORDS SUMMARY | 2023-11-18 12:35 | XMS_ITS | Continuity of Care Document ---
Author Organization [facility] Address [address] [place] [address]- Care Team Providers Care Team Primary Care Physician Name Role Phone Hannah Garcia NP Primary Care Physician Encounter [facility] Date(s): 03/28/23 - 04/27/23 [facility] [address] [place] [id number]- Attending Physician: Hannah Garcia NP Allergies, Adverse [...] 01/09/23 7:22:00 EDT, Route to Pharmacy Electronically, [id number], 183, cm, 10/08/22 16:18:00 EDT, Height, 71.3, kg, 08/08/21 0:23:00 EDT, Dry Weight Start Date: 01/09/23 Status: Ordered amLODIPine 5 mg oral tablet 1 tablet, By Mouth, Daily, # 28 tablet, 5 Refills, Maintenance, 11/25/22 16:21:00 EDT, [id number], 183, cm, 10/08/22 16:18:00 EDT, Height, 71.3, kg, 08/08/21 0:23:00 EDT, Dry Weight Start Date: 11/25/22 Status: Ordered atorvastatin 40 mg oral tablet 1 tablet, By Mouth, Daily, # 28 tablet, 2 Refills, Maintenance, 01/09/23 7:23:00 EDT, [facility], 183, cm, 10/08/22 16:18:00 EDT, Height, 71.3, kg, 08/08/21 0:23:00 EDT, Dry Weight Start Date: 01/09/23 Status: Ordered buPROPion 150 mg/24 hours (XL) oral tablet, extended release 1 tablet, By Mouth, Daily, # 28 tablet, 5 Refills, Maintenance, 04/21/23 18:36:00 EST, [facility]/pharmacy#[id number], 1 tablet By Mouth Daily,x28 days, 183, cm, 03/28/23 11:43:00 EST, Height, 71.3, kg, 220:23:00 EDT, Dry Weight Start Date: 04/21/23 Stop Date: 10/06/23 Status: Ordered carvedilol 12.5 mg oral tablet 1, tablet, By Mouth, 2 times a day, # 56 tablet, Refills 5, Maintenance, 11/25/22 16:22:00 EDT, Route to [facility]acy Electronically, [facility], 183, cm, 10/08/22 16:18:00 EDT, Height, 71.3, kg, 08/08/21 0:23:00 EDT, Dry Weight Start Date: 11/25/22 Status: Ordered cholecalciferol 50,000 intl units oral capsule 1 capsule = 50,000 International_Units, By Mouth, Every week, # 13 capsule, 3 Refills, Maintenance,03/19/23 15:28:00 EDT, Capsule, [facility]/pharmacy #[id number], Partial fill upon [...] EDT, Route to Pharmacy Electronically, [facility], 183, cm, 03/16/22 8:31:00 EDT, Height, 71.3, [...] 6 Refills, Maintenance, 05/14/2216:30:00 EST, [facility], 183, cm, 03/16/22 8:31:00 EDT, Height, 71.3, kg, 08/08/21 0:23:00 EDT, Dry Weight Start Date: 05/14/22 Status: Ordered Eliquis 5 mg oral tablet 1 tablet, By Mouth, 2 times a day, # 56 tablet, 6 Refills, [facility], 183, cm, 08/12/21 14:20:00 EDT, Height, 71.3, kg, 08/08/21 0:23:00 EDT, Dry Weight Start Date: 09/26/21 Status: Ordered Eliquis 5 mg oral tablet See Instructions, TAKE 1 TABLET BY MOUTH TWICE A DAY, # 56 tablet, 6 Refills, Maintenance, 11/30/2314:39:00 EDT, [facility], 183, cm, 10/08/22 16:18:00 EDT, Height, 71.3, kg, 08/08/21 0:23:00 EDT, Dry Weight Start Date: 11/30/22 Status: Ordered furosemide 40 mg oral tablet 1, tablet, By Mouth, 2 times a day, # 56 tablet, Refills 2, Tot. Refills 2, Maintenance, 04/21/23 18:37:00 EST, Route to Pharmacy Electronically, [facility]/pharmacy #[id number], 183, cm, 03/28/23 [...] Refills, Maintenance, 04/27/23 13:02:00 EST, [facility], 183, cm, 03/28/23 11:43:00 EST, Height, 71.3, kg, 08/08/21 0:23:00 EDT, Dry Weight Start Date: 04/27/23 Status: Ordered isosorbide mononitrate 60 mg oral tablet, extended release 1 tablet, By Mouth, Daily in AM, # 28 tablet, 5 Refills, Maintenance, 04/21/23 18:37:00 EST, [facility]/pharmacy #[id number], 183, cm, 03/28/23 11:43:00 EST, Height, 71.3, kg, 08/08/21 0:23:00 EDT, Dry Weight Start Date: 04/21/23 Stop Date: 10/06/23 Status: Ordered Mylanta Maximum Strength oral suspension 5 mL, By Mouth, 4 times a day, PRN for control of stomach acid, # 200 mL, 1 Refills, Maintenance, 08/12/21 13:46:00 EDT, Suspension, [facility]/pharmacy #[id number], Partial fill upon [...] 60 mg, By Mouth, Every 3 hours, BEAD WIRE INSULATOR checked. fiull 03/28/23, # 112 tablet, 0 Refills, Maintenance, 03/28/23 7:01:00 EST, [facility]/pharmacy #[id number], 7 days as needs testing performed partial fill upon request;, 183, cm, 10/08/22 16:18:00 EDT, Hei... Start Date: 03/28/23 Stop Date: 04/04/23 Status: Ordered oxyCODONE 30 mg oral tablet 2 tablet = 60 mg, By Mouth, Every 3 hours, BEAD WIRE INSULATOR checked., # 112 tablet, 0 Refills, Maintenance, 04/26/23 8:55:00 EST, [facility]/pharmacy #[id number], may [...] Start Date: 11/30/22 Status: Ordered Potassium Chloride (Ppv-Kepf-Enh 10) 10 mEq oral tablet, extended release See Instructions, TAKE 2 TABLETS BY MOUTH EVERY MORNING AND TAKE 1 TABLET EVERY EVENING, # 84 tablet, 2 Refills, Maintenance, 04/27/23 13:02:00 EST, [facility], 183, cm, 03/28/23 11:43:00 EST, Height, 71.3, kg, 08/08/21 0:23:00 EDT, Dry Weight Start Date: 04/27/23 Status: Ordered sertraline 100 mg oral tablet 1 tablet, By Mouth, Daily, # 28 tablet, 5 Refills, Maintenance, 06/09/22 8:26:00 EST, [facility], 183, cm, 03/16/22 8:31:00 EDT, Height, 71.3, kg, 08/08/21 0:23:00 EDT, Dry Weight Start Date: 06/09/22 Status: Ordered sertraline 100 mg oral tablet See Instructions, TAKE 1 TABLET BY MOUTH EVERY DAY, # 28 tablet, 5 Refills, Maintenance, 11/30/22 15:39:00 EDT, [facility], 183, cm, 10/08/22 16:18:00 EDT, Height, 71.3, kg, 08/08/21 0:23:00 EDT, Dry Weight Start Date: 11/30/22 Status: Ordered spironolactone 25 mg oral tablet 1, tablet, By Mouth, Daily, # 28 tablet, Refills 4, Maintenance, 07/08/22 11:30:00 EST, Route to Pharmacy Electronically, [facility], 183, cm, 03/16/22 8:31:00 EDT, Height, 71.3, kg, 08/08/21 0:23:00 EDT, Dry Weight Start Date: 07/08/22 Status: Ordered spironolactone 25 mg oral tablet See Instructions, TAKE 1 TABLET BY MOUTH EVERY DAY, # 28 tablet, Refills 4, Maintenance, 11/30/22 15:38:00 EDT, Instructions Replace Required Details, Route to Pharmacy Electronically, [facility], 183, cm, 10/08/22 16:18:00 EDT, Height, 71.3, kg,... Start Date: 11/30/22 Status: Ordered sucralfate 1 gm oral tablet 1, tablet, By Mouth, 3 times a day before meals, AND BEDTIME., # 112 tablet, Refills 5, Maintenance, 02/04/23 16:32:00 EDT, Route to Pharmacy Electronically, [facility], 183, cm, 10/08/22 16:18:00 EDT, Height, 71.3, kg, 08/08/21 0:23:00 EDT, Dry... Start Date: 02/04/23 Status: Ordered Vitamin B-12 1000 mcg oral tablet 1, tablet, By Mouth, Daily, # 28 tablet, Refills 11, Tot. Refills 11, Maintenance, 04/21/23 18:37:00 EST, Route to Pharmacy Electronically, [facility]/pharmacy #[id number], 183, cm, 03/28/23 [...] artery disease by Rolando Rubin M.D. at [facility]. 4In the past; states this has resolved Vital Signs Most recent to oldest [Reference Range]: 1 Height 183 cm (03/28/23 11:43 AM) Weight Obtained Via Patient/family state d (03/28/23 11:43 AM) Social History Social History Type Response Smoking Status Never smoker entered on: 08/24/16 Sex Note * Benito Cardoso: PERFORM, SIGN, VERIFY Event Display: Patient Education/Instruction Authored Date: [id number] [facility] *BMP [place] [facility] Clinical Summary Name FANTA MAR Age 67 Years 1955 PCP Radha ODONNELL, Hannah PCP Visit Date 03/28/2023 11:15:00 Additional Instructions: Scheduled Appointments?? Future Appointments ?No Future Appointments Scheduled Follow-Up Instructions ?? Diagnosis Medications: Please continue your medications until treatment is completed or stopped by your provider. Discuss any questions related to medications with your provider. Medications to Continue with No Changes These medications were not printed or sent to your pharmacy Al Hydroxide/Mg Hydroxide/Simethicone (Mylanta Maximum Strength oral suspension) 5 Milliliter Oral 4 times a day as needed for control of stomach acid. Refills: 1. Next Dose: Allopurinol (allopurinol 100 mg oral tablet) 1 tab(s) Oral Daily. Refills: 5. Next Dose: Amlodipine (amLODIPine 5 mg oral tablet) 1 tab(s) Oral Daily. Refills: 5. Next Dose: apixaban (Eliquis 5 mg oral tablet) TAKE 1 TABLET BY MOUTH TWICE A DAY. Refills: 6. Next Dose: apixaban (Eliquis 5 mg oral tablet) TAKE 1 TABLET BY MOUTH TWICE A DAY. Refills: 6. Next Dose: apixaban (Eliquis 5 mg oral tablet) 1 tab(s) Oral twice a day. Refills: 6. Next Dose: Atorvastatin (atorvastatin 40 mg oral tablet) 1 tab(s) Oral Daily. Refills: 2. Next Dose: BuPROpion (buPROPion 150 mg/24 hours (XL) oral tablet, extended release) 1 tab(s) Oral Daily. Refills: 5. Next Dose: Carvedilol (carvedilol 12.5 mg oral tablet) 1 tab(s) Oral twice a day. Refills: 5. Next Dose: Cholecalciferol (cholecalciferol 50,000 intl units oral capsule) 1 capsule Oral every week for 90 Days. Refills: 3. Next Dose: Cholecalciferol (cholecalciferol 50,000 intl units oral capsule) 1 capsule Oral every 7 days for 90Days. Refills: 3. Next Dose: Clopidogrel (clopidogrel 75 mg oral tablet) 1 tab(s) Oral Daily. Refills: 6. Next Dose: Cyanocobalamin (Vitamin B-12 1000 mcg oral tablet) 1 tab(s) Oral Daily. Refills: 0. Next Dose: Furosemide (furosemide 40 mg oral tablet) 1 tab(s) Oral twice a day. Refills: 2. Next Dose: hydrALAZINE (hydrALAZINE 50 mg oral tablet) 1 tab(s) Oral 3 times a day. Refills: 2. Next Dose: Isosorbide Mononitrate (isosorbide mononitrate 60 mg oral tablet, extended release) 1 tab(s) Oral Daily in the morning. Refills: 2. Next Dose: Miscellaneous Rx ([facility] B-12 1,000 MCG TABLET) 1 tab(s) Oral Daily. Refills: 0. Next Dose: Miscellaneous Rx (FUROSEMIDE 40 MG TABLET) 1 tab(s) Oral twice a day. Refills: 2. Next Dose: Nitroglycerin (nitroglycerin 0.4 mg sublingual tablet) 1 tab(s) Sublingual every 5 minutes as needed Chest Pain for 30 Days. Refills: 3. Next Dose: Oxycodone (oxyCODONE 30 mg oral tablet) 2 tab(s) Oral every 3 hours for 7 Days. BEAD WIRE INSULATOR checked. gabriella 03/28/23. Refills: 0. Next Dose: Pantoprazole (pantoprazole 40 mg oral delayed release tablet) 1 tab(s) Oral Daily. Refills: 4. Next Dose: Pantoprazole (pantoprazole 40 mg oral delayed release tablet) TAKE 1 TABLET BY MOUTH EVERY DAY. Refills: 4. Next Dose: Potassium Chloride (Potassium Chloride (Abr-Bboc-Ulc 10) 10 mEq oral tablet, extended release) TAKE2 TABLETS BY MOUTH EVERY MORNING AND TAKE 1 TABLET EVERY EVENING. Refills: 2. Next Dose: Potassium Chloride (Potassium Chloride (Cvz-Tnac-Bqz 10) 10 mEq oral tablet, extended release) TAKE2 TABLETS BY MOUTH EVERY MORNING AND TAKE 1 TABLET EVERY EVENING. Refills: 2. Next Dose: Sertraline (sertraline 100 mg oral tablet) 1 tab(s) Oral Daily. Refills: 5. Next Dose: Sertraline (sertraline 100 mg oral tablet) TAKE 1 TABLET BY MOUTH EVERY DAY. Refills: 5. Next Dose: Spironolactone (spironolactone 25 mg oral tablet) 1 tab(s) Oral Daily. Refills: 4. Next Dose: Spironolactone (spironolactone 25 mg oral tablet) TAKE 1 TABLET BY MOUTH EVERY DAY. Refills: 4. Next Dose: Sucralfate (sucralfate 1 gm oral tablet) 1 tab(s) Oral 3 times a day before meals. AND BEDTIME.. Refills: 5. Next Dose: Allergy Info:?? morphine Medications Given This Visit Future Orders ?No future orders Vital Signs Height 183 cm Weight BMI Blood Pressure / Temperature Pulse Rate Respiratory Rate 02 Sat Mode of Delivery / You can now view a summary of your hospital visit from the comfort of your home through a free online portal called [employer]. [employer] is a website that allows you to securely view your medical information including discharge summary, medications and follow-up visits. ??You can alsosend a secure electronic message to your doctor???s office to request appointments, renew medications or just ask a question. You can enroll at [email or web address] or register during your next office visit. Disclaimer:?? The information provided is of a general nature and is intended to be used in conjunction with the recommendations and advice of your health care practitioner. ??Every effort has been made to ensure that the information provided is accurate and complete at the time it is provided to you however, as your needs change, or, as new ??information becomes available, different or additional instructions may be required. If you have questions, please consult with your primary care provider or pharmacist, as appropriate. ??This information is not intended to serve as substitution for assessment and evaluation by a qualified health care provider. If you do not have a primary care provider, you may find a [facility] provider by calling [facility] Link at [phone]. [facility], in keeping with [facility] guidance, no longer requires face masks for staff, patientsor visitors in most situations. Similar to time spent indoors at other locations, there is the chance that you were exposed to respiratory viruses during your time with us (such as flu or COVID-19).? If you develop symptoms concerning for a viral respiratory infection, please seek testing (and treatment if indicated) from your medical provider or home test kit. For information about the plan of care including goals and instructions for your diagnosis, please see the patient education orders section of this document. Patient Education Materials?? The content of this educational material or handout may have been modified, supplemented, or adapted from its original content and format to support your individualized medical care. Patient Care team information Care Team Personnel Name: Irish Samuel RN Position: [facility] RN Member Role: Primary Care Nurse Name: Mireya Ramsey Position: [facility] RACHEL Supv Member Role: Primary Care Nurse Name: Rhea Betancur RN Position: [facility] RN Member Role: Primary Care Nurse Name: Hugo Ayala RN Position: [facility] RN Member Role: Primary Care Nurse Name: Lorna Faust RN Position: [facility] RN Member Role: Primary Care Nurse Name: David Gonzalez MD Position: [facility] Renal MD Member Role: Lifetime Consulting Physician Address: Address: [address] [place] [address] [address] [facility] [place] [address]- [place] Name: Hannah Garcia NP Position: [facility] PCO Associate Professional Member Role: PCP Address: Address: [address] [place] [address]- [place] Name: Eduin Arias MD Position: [facility] Renal MD Member Role: Lifetime Consulting Physician Address: Address: [address] [place] [address], [facility] [address] [place] [address]- [place] Name: Ana Herrera RN Position: [facility] RN Member Role: Primary Care Nurse Name: Cadence Quach RN Position: [facility] OB RN Member Role: Primary Care Nurse Name: Maggy Tsang RN Position: [facility] RN Member Role: Primary Care Nurse Name: Keyla Keys RN Position: [facility] SN RN Member Role: Primary Care Nurse Name: Марина Guevaar RN Position: [facility] SN RN Member Role: Primary Care Nurse Name: Lyn Helms RN Position: [facility] RN Member Role: Primary Care Nurse Name: Tatum Biswas RN Position: [facility] RN Member Role: Primary Care Nurse Name: Hugo Bateman RN Position: [facility] RN Member Role: Primary Care Nurse Name: Petros Levy RN Position: [facility] RN Member Role: Primary Care Nurse Name: Izabella Braun RN Position: [facility] RN Member Role: Primary Care Nurse Name: Lyndsay King RN Position: [facility] RN Member Role: Primary Care Nurse Name: Felicia Kerr NP Position: [facility] PCO Associate Professional Member Role: Primary Care Nurse Name: Hafsa Goyal RN Position: [facility] RN Member Role: Primary Care Nurse Name: Rosalio Jack RN Position: [facility] RN Member Role: Primary Care Nurse Name: Carmela Houser RN Position: [facility] SN RN Member Role: Primary Care Nurse Name: Michael Dickson RN Position: [facility] RN Member Role: Primary Care Nurse Name: Jessica Lema RN Position: [facility] RN Member Role: Primary Care Nurse Name: Phu Flynn MD Position: [facility] Renal MD Member Role: Lifetime Consulting Physician Address: Address: [address] [place] [address] [facility] [place] [address]- [place] Name: Yesica Serna RN Position: [facility] OB RN Member Role: Primary Care Nurse Name: Jesusita Lou RN Position: [facility] OB RN Member Role: Primary Care Nurse Name: Husam Elizalde RN Position: S RN Member Role: Primary Care Nurse Name: Marshall Byrd RN Position: S RN Member Role: Primary Care Nurse Care Team Related Persons Name: ZAID DUTCH Address: [place], [place] Name: ALL AYERS Address: home [address] [place], [place] Name: ALL MANZANARES Address: [address] [place], [place] Name: CHRISTEN GRIMALDO Address: [address] [place] [address]
--- OUTSIDE RECORDS SUMMARY | 2023-11-18 12:35 | XMS_ITS | Continuity of Care Document ---
Author Organization [facility] Adult Address [address] [place] [address]- Care Team Providers Care Manager Film Name Role Phone Radha ODONNELL, Hannah Primary Care Physician Encounter [facility] [place](s): 05/20/22 - 06/19/22 [facility] Adult [address] [place] [phone]- Allergies, Adverse Reactions, Alerts Substance Reaction Severity [...] 04/13/22 11:43:00 EST, Route to Pharmacy Electronically, [id number], 183, cm, 03/16/22 8:31:00 EDT, Height, 71.3, kg, 08/08/21 0:23:00 EDT, Dry Weight Start Date: 04/13/22 Status: Ordered amLODIPine 5 mg oral tablet 1 tablet, By Mouth, Daily, # 28 tablet, 4 Refills, Maintenance, 04/13/22 11:43:00 EST, [facility] 20683, 183, cm, 03/16/22 8:31:00 EDT, Height, 71.3, kg, 08/08/21 0:23:00 EDT, Dry Weight Start Date: 04/13/22 Status: Ordered atorvastatin 40 mg oral tablet 1 tablet, By Mouth, Daily, # 28 tablet, 5 Refills, 12/23/21 11:53:00 EDT, [facility]/pharmacy #[id number], 183, cm, 10/20/21 10:31:00 EDT, Height, 71.3, kg, 08/08/21 0:23:00 EDT, Dry Weight Start Date: 12/23/21 Status: Ordered buPROPion 150 mg/24 hours (XL) oral tablet, extended release See Instructions, TAKE 1 TABLET BY MOUTH EVERY 24 HOURS, # 28 tablet, 5 Refills, 03/18/22 11:05:00 EDT, [facility]/pharmacy #[id number], 28, TAKE 1 TABLET BY MOUTH EVERY 24 HOURS, 183, cm, 03/16/22 8:31:00 EDT, Height, 71.3, kg, 08/08/21 0:23:00 EDT, Dry Weight Start Date: 03/18/22 Status: Ordered buPROPion 150 mg/24 hours (XL) oral tablet, extended release 1 tablet, By Mouth, Every 24 hours, # 28 tablet, 2 Refills, [facility] STORE 72488, 28, TAKE 1 TABLET BY MOUTH EVERY 24 HOURS, 183, cm, 08/12/21 14:20:00 EDT, Height, 71.3, kg, 08/08/21 0:23:00 EDT, Dry Weight Start Date: 09/25/21 Status: Ordered carvedilol 12.5 mg oral tablet 1, tablet, By Mouth, 2 times a day, # 56 tablet, Refills 5, Route to Pharmacy Electronically, [facility] STORE 74678, 183, cm, 05/04/21 3:09:00 EST, Height, 81.7, kg, 04/16/21 3:06:00 EST, Dry Weight Start Date: 07/07/21 Status: Ordered carvedilol 12.5 mg oral tablet See Instructions, TAKE 1 TABLET BY MOUTH TWICE A DAY, # 56 tablet, Refills 5, Tot. Refills 5, 03/18/22 11:05:00 EDT, Instructions Replace Required Details, Route to Pharmacy Electronically, [facility]/pharmacy #[id number], 183, cm, 03/16/22 8:31:00 EDT, Height, 71... Start Date: 03/18/22 Status: Ordered clopidogrel 75 mg oral tablet 1, tablet, By Mouth, Daily, # 28 tablet, Refills 5, Route to Pharmacy Electronically, [facility] 2020[facility], 183, cm, 05/04/21 3:09:00 EST, Height, 81.7, kg, 04/16/21 3:06:00 EST, Dry Weight Start Date: 07/02/21 Status: Ordered clopidogrel 75 mg oral tablet 75 mg, 1, tablet, By Mouth, Daily, for 30 days, # 30 tablet, Refills 5, Tot. Refills 5, Physician Stop 09/14/22 13:18:00 EDT, 03/18/22 13:18:00 EDT, Route to Pharmacy Electronically, [facility]/pharmacy #[id number], 183, cm, 03/16/22 8:31:00 EDT, Height, 71.3, kg,... Start Date: 03/18/22 Stop Date: 09/14/22 Status: Ordered Eliquis 5 mg oral tablet See Instructions, TAKE 1 TABLET BY MOUTH TWICE A DAY, # 56 tablet, 6 Refills, Maintenance, 05/14/2216:30:00 EST, [facility] 34814, 183, cm, 03/16/22 8:31:00 EDT, Height, 71.3, kg, 08/08/21 0:23:00 EDT, Dry Weight Start Date: 05/14/22 Status: Ordered Eliquis 5 mg oral tablet 1 tablet, By Mouth, 2 times a day, # 56 tablet, 6 Refills, [facility] ST[facility] 98900, 183, cm, 08/12/21 14:20:00 EDT, Height, 71.3, kg, 08/08/21 0:23:00 EDT, Dry Weight Start Date: 09/26/21 Status: Ordered furosemide 40 mg oral tablet 1, tablet, By Mouth, 2 times a day, # 56 tablet, Refills 2, Maintenance, 04/13/22 11:44:00 EST, Route to Pharmacy Electronically, [facility] 52681, 183, cm, 03/16/22 8:31:00 EDT, Height, 71.3, kg, 08/08/21 0:23:00 EDT, Dry Weight Start Date: 04/13/22 Status: Ordered hydrALAZINE 50 mg oral tablet 1 tablet, By Mouth, 3 times a day, # 84 tablet, 1 Refills, Maintenance, 06/09/22 9:19:00 EST, [facility] 40005, 183, cm, 03/16/22 8:31:00 EDT, Height, 71.3, kg, 08/08/21 0:23:00 EDT, Dry Weight Start Date: 06/09/22 Status: Ordered isosorbide mononitrate 60 mg oral tablet, extended release 1 tablet, By Mouth, Daily in AM, # 28 tablet, 4 Refills, Maintenance, 04/13/22 11:43:00 EST, [facility] 51037, 183, cm, 03/16/22 8:31:00 EDT, Height, 71.3, kg, 08/08/21 0:23:00 EDT, Dry Weight Start Date: 04/13/22 Status: Ordered lidocaine 0.5% topical gel 1 application, Topically, 3 times a day, for 30 days, # 240 Gm, 1 Refills, Acute 07/22/22 9:46:00 EST, 05/23/22 9:46:00 EST, Gel, [facility]/pharmacy #[id number], Partial fill upon patient request if the prescription is for a schedule II opioid drug., 1 applicatio... Start Date: 05/23/22 Stop Date: 07/22/22 Status: Ordered Mylanta Maximum Strength oral suspension 5 mL, By Mouth, 4 times a day, PRN for control of stomach acid, # 200 mL, 1 Refills, Maintenance, 08/12/21 13:46:00 EDT, Suspension, [facility]/pharmacy #[id number], Partial fill upon patient request [...] 60 mg, By Mouth, Every 3 hours, [address] FREIGHT checked. fill on 06/21/22, # 224 tablet, 0 Refills, Acute 05/15/23 10:08:00 EST, 06/18/22 12:24:00 EST, [facility]/pharmacy #[id number], may partial [...] Stop Date: 07/16/22 Status: Ordered Potassium Chloride (Hss-Wwlp-Rvj 10) 10 mEq oral tablet, extended release See Instructions, TAKE 2 TABLETS BY MOUTH EVERY MORNING AND TAKE 1 TABLET EVERY EVENING, # 84 tablet, 2 Refills, Maintenance, 06/09/22 9:19:00 EST, [facility] 86915, 183, cm, 03/16/22 8:31:00 EDT, Height, 71.3, kg, 08/08/21 0:23:00 EDT, Dry Weight Start Date: 06/09/22 Status: Ordered sertraline 100 mg oral tablet 1 tablet, By Mouth, Daily, # 28 tablet, 5 Refills, Maintenance, 06/09/22 8:26:00 EST, [facility] 62891, 183, cm, 03/16/22 8:31:00 EDT, Height, 71.3, kg, 08/08/21 0:23:00 EDT, Dry Weight Start Date: 06/09/22 Status: Ordered spironolactone 25 mg oral tablet 1, tablet, By Mouth, Daily, for 30 days, # 30 tablet, Refills 3, Tot. Refills 3, Physician Stop 07/16/22 13:20:00 EST, 03/18/22 13:20:00 EDT, Route to Pharmacy Electronically, [facility]/pharmacy #[id number], 183, cm, 03/16/22 8:31:00 EDT, Height, 71.3, kg, ... Start Date: 03/18/22 Stop Date: 07/16/22 Status: Ordered sucralfate 1 gm oral tablet 1, tablet, By Mouth, 3 times a day before meals, AND BEDTIME., # 112 tablet, Refills 2, Maintenance, 05/18/22 8:37:00 EST, Route to Pharmacy Electronically, [facility] STORE 50702, 183, cm, 03/16/22 8:31:00EDT, Height, 71.3, kg, 08/08/21 0:23:00 EDT, Dry We... Start Date: 05/18/22 Status: Ordered Vitamin B-12 1000 mcg oral tablet See Instructions, TAKE 1 TABLET BY MOUTH EVERY DAY, # 28 tablet, Refills 5, Maintenance, 05/14/22 16:30:00 EST, Instructions Replace Required Details, Route to Pharmacy Electronically, [facility] ST[facility] 38890, 183, cm, 03/16/22 8:31:00 EDT, Height, 71.3, kg,... Start Date: 05/14/22 Status: Ordered Vitamin B-12 1000 mcg oral tablet 1, tablet, By Mouth, Daily, # 28 tablet, Refills 5, Route to Pharmacy Electronically, [facility] ST[facility] 20739, 183, cm, 08/12/21 14:20:00 EDT, Height, 71.3, [...] artery disease by Rolando Rubin M.D. at [facility]. 4In the past; states this has resolved Social History Social History Type Response Smoking Status Never smoker entered on: 08/24/16 Sex Patient Care team information Care Team Personnel Name: Irish Samuel RN Position: [facility] RN Member Role: Primary Care Nurse Name: Mireya Ramsey Position: [facility] RN Supv Member Role: Primary Care Nurse Name: Rhea Betancur RN Position: [facility] SN RN Member Role: Primary Care Nurse Name: Hugo Ayala RN Position: [facility] RN Member Role: Primary Care Nurse Name: Lorna Faust RN Position: [facility] RN Member Role: Primary Care Nurse Name: Wilner Feliciano RN Position: [facility] RN Supv Member Role: Primary Care Nurse Name: David Gonzalez MD Position: [facility] Renal MD Member Role: Lifetime Consulting Physician Address: Address: [address] [place] [address], [address] [facility] [place] [address]- [place] Name: Hannah Garcia NP Position: [facility] PCO Associate Professional Member Role: PCP Address: Address: [address] [place] [address], [address] [place] [address]- [place] Name: Eduin Arias MD Position: [facility] Physician (General Medicine) Member Role: Lifetime Consulting Physician Address: Address: [address] [place] [address], [address] [place] [address]- [place] Name: Ana Herrera RN Position: [facility] RN Member Role: Primary Care Nurse Name: Carlos Montez RN Position: [facility] RN Member Role: Primary Care Nurse Name: Cadence Quach RN Position: [facility] OB RN Member Role: Primary Care Nurse Name: Maggy Tsang RN Position: [facility] RN Member Role: Primary Care Nurse Name: Keyla Keys RN Position: [facility] SN RN Member Role: Primary Care Nurse Name: Марина Guevara RN Position: [facility] RN Member Role: Primary Care Nurse Name: Lyn Helms RN Position: [facility] RN Member Role: Primary Care Nurse Name: Tatum Biswas RN Position: [facility] RN Member Role: Primary Care Nurse Name: Hugo Bateman RN Position: [facility] RN Member Role: Primary Care Nurse Name: Petros Levy RN Position: [facility] RN Member Role: Primary Care Nurse Name: Izabella Braun RN Position: [facility] RN Member Role: Primary Care Nurse Name: Lyndsay King RN Position: [facility] RN Member Role: Primary Care Nurse Name: Felicia Kerr RN Position: [facility] RN Member Role: Primary Care Nurse Name: Hafsa Goyal RN Position: [facility] RN Member Role: Primary Care Nurse Name: Rosalio Jack RN Position: [facility] RN Member Role: Primary Care Nurse Name: Geovanna Hill RN Position: [facility] RN Member Role: Primary Care Nurse Name: Carmela Houser RN Position: [facility] SN RN Member Role: Primary Care Nurse Name: Michael Dickson RN Position: [facility] RN Member Role: Primary Care Nurse Name: Jessica Lema RN Position: [facility] RN Member Role: Primary Care Nurse Name: Phu Flynn MD Position: [facility] Renal MD Member Role: Lifetime Consulting Physician Address: Address: [address] [place] [address] [facility] [address] Name: Yesica Serna RN Position: [facility] OB RN Member Role: Primary Care Nurse Name: Jesusita Lou RN Position: [facility] OB RN Member Role: Primary Care Nurse Name: Karen Quach RN Position: [facility] PCO w/OE and EZ Script Member Role: Primary Care Nurse Name: Marshall Byrd RN Position: [facility] RN Member Role: Primary Care Nurse Care Team Related Persons Name: DUTCH MAR Address: [place] [address] Name: ALL AYERS Address: home [address] [place] [address] Name: ALL MANZANARES Address: [address] [place] [address] Name: CHRISTEN GRIMALDO Address: [address] [place] [address]
--- OUTSIDE RECORDS SUMMARY | 2023-11-18 12:35 | XMS_ITS | Continuity of Care Document ---
Author Organization [facility] Adult Address [address] [place] [address]- Care Team Providers Care Probation And Patrol Agent Name Role Phone Radha ODONNELL, Hannah Primary Care Physician [phone] Encounter [facility] Date(s): 03/18/23 - 04/17/23 [facility] Adult [address] [place] [id number]- Allergies, Adverse Reactions, Alerts Substance Reaction Severity [...] 01/09/23 7:22:00 EDT, Route to Pharmacy Electronically, [facility] 34047, 183, cm, 10/08/22 16:18:00 EDT, Height, 71.3, kg, 08/08/21 0:23:00 EDT, Dry Weight Start Date: 01/09/23 Status: Ordered amLODIPine 5 mg oral tablet 1 tablet, By Mouth, Daily, # 28 tablet, 5 Refills, Maintenance, 11/25/22 16:21:00 EDT, [facility] 78199, 183, cm, 10/08/22 16:18:00 EDT, Height, 71.3, kg, 08/08/21 0:23:00 EDT, Dry Weight Start Date: 11/25/22 Status: Ordered atorvastatin 40 mg oral tablet 1 tablet, By Mouth, Daily, # 28 tablet, 2 Refills, Maintenance, 01/09/23 7:23:00 EDT, [facility], 183, cm, 10/08/22 16:18:00 EDT, Height, 71.3, kg, 08/08/21 0:23:00 EDT, Dry Weight Start Date: 01/09/23 Status: Ordered buPROPion 150 mg/24 hours (XL) oral tablet, extended release 1 tablet, By Mouth, Daily, # 28 tablet, 5 Refills, Maintenance, 09/03/22 20:57:00 EDT, [facility], 28, TAKE 1 TABLET BY MOUTH EVERY DAY, 183, cm, 03/16/22 8:31:00 EDT, Height, 71.3, kg, 220:23:00 EDT, Dry Weight Start Date: 09/03/22 Status: Ordered carvedilol 12.5 mg oral tablet 1, tablet, By Mouth, 2 times a day, # 56 tablet, Refills 5, Maintenance, 11/25/22 16:22:00 EDT, Route to Pharmacy Electronically, [facility], 183, cm, 10/08/22 16:18:00 EDT, Height, 71.3, [...] EDT, Route to Pharmacy Electronically, [facility], 183, cm, 03/16/22 8:31:00 EDT, Height, 71.3, [...] 6 Refills, Maintenance, 05/14/2216:30:00 EST, [facility], 183, cm, 03/16/22 8:31:00 EDT, Height, 71.3, kg, 08/08/21 0:23:00 EDT, Dry Weight Start Date: 05/14/22 Status: Ordered Eliquis 5 mg oral tablet 1 tablet, By Mouth, 2 times a day, # 56 tablet, 6 Refills, [facility], 183, cm, 08/12/21 14:20:00 EDT, Height, 71.3, kg, 08/08/21 0:23:00 EDT, Dry Weight Start Date: 09/26/21 Status: Ordered Eliquis 5 mg oral tablet See Instructions, TAKE 1 TABLET BY MOUTH TWICE A DAY, # 56 tablet, 6 Refills, Maintenance, 11/30/2314:39:00 EDT, [facility], 183, cm, 10/08/22 16:18:00 EDT, Height, 71.3, kg, 08/08/21 0:23:00 EDT, Dry Weight Start Date: 11/30/22 Status: Ordered furosemide 40 mg oral tablet 1, tablet, By Mouth, 2 times a day, # 56 tablet, Refills 2, Maintenance, 09/30/22 8:51:00 EDT, Route to Pharmacy Electronically, [facility] 489[facility], 183, cm, 03/16/22 8:31:00 EDT, Height, 71.3, [...] tablet, 2 Refills, Maintenance, 11/25/22 16:22:00 EDT, [facility] 496[facility], 183, cm, 10/08/22 16:18:00 EDT, Height, 71.3, kg, 08/08/21 0:23:00 EDT, Dry Weight Start Date: 11/25/22 Status: Ordered isosorbide mononitrate 60 mg oral tablet, extended release 1 tablet, By Mouth, Daily in AM, # 28 tablet, 2 Refills, Maintenance, 11/25/22 16:23:00 EDT, [facility] 85156, 183, cm, 10/08/22 16:18:00 EDT, Height, 71.3, kg, 08/08/21 0:23:00 EDT, Dry Weight Start Date: 11/25/22 Status: Ordered Mylanta Maximum Strength oral suspension 5 mL, By Mouth, 4 times a day, PRN for control of stomach acid, # 200 mL, 1 Refills, Maintenance, 08/12/21 13:46:00 EDT, Suspension, [facility]/pharmacy #[id number], Partial fill upon patient request if the prescription is for a schedule II opioid drug., 5 mL By M... Start Date: 08/12/21 Status: Ordered nitroglycerin 0.4 mg sublingual tablet 1 tablet = 0.4 mg, Sublingual, Every 5 minutes, PRN Chest Pain, # 25 tablet, 3 Refills, Maintenance, 08/24/19 15:40:00 EDT, [facility]/pharmacy #[id number], 183, cm, 05/25/19 15:06:00 EST, Height, 88.3, kg, 08/31/17 3:30:00 EDT, Dry Weight Start Date: 08/24/19 Stop Date: 12/22/19 Status: Ordered oxyCODONE 30 mg oral tablet 2 tablet = 60 mg, By Mouth, Every 3 hours, STATISTICAL ENGINEER checked. fiull 03/28/23, # 112 tablet, 0 Refills, Maintenance, 03/28/23 7:01:00 EST, [facility]/pharmacy #[id number], 7 days as needs testing performed partial fill upon request;, 183, cm, 10/08/22 16:18:00 EDT, Hei... Start Date: 03/28/23 Stop Date: 04/04/23 Status: Ordered oxyCODONE 30 mg oral tablet 2 tablet = 60 mg, By Mouth, Every 3 hours, 5PMP checked. fill on 02/14/23, # 224 tablet, 0 Refills, Maintenance, 04/04/23 14:22:00 EST, [facility]/pharmacy #[id number], may partial fill upon request; [...] Start Date: 11/30/22 Status: Ordered Potassium Chloride (Fui-Juet-Pic 10) 10 mEq oral tablet, extended release See Instructions, TAKE 2 TABLETS BY MOUTH EVERY MORNING AND TAKE 1 TABLET EVERY EVENING, # 84 tablet, 2 Refills, Maintenance, 11/30/22 15:38:00 EDT, [facility], 183, cm, 10/08/22 16:18:00 EDT, Height, 71.3, kg, 08/08/21 0:23:00 EDT, Dry Weight Start Date: 11/30/22 Status: Ordered Potassium Chloride (Oxt-Qquz-Emp 10) 10 mEq oral tablet, extended release See Instructions, TAKE 2 TABLETS BY MOUTH EVERY MORNING AND TAKE 1 TABLET EVERY EVENING, # 84 tablet, 2 Refills, Maintenance, 09/06/22 10:04:00 EDT, [facility], 183, cm, 03/16/22 8:31:00 EDT, Height, 71.3, kg, 08/08/21 0:23:00 EDT, Dry Weight Start Date: 09/06/22 Status: Ordered sertraline 100 mg oral tablet 1 tablet, By Mouth, Daily, # 28 tablet, 5 Refills, Maintenance, 06/09/22 8:26:00 EST, [facility], 183, cm, 03/16/22 8:31:00 EDT, Height, 71.3, kg, 08/08/21 0:23:00 EDT, Dry Weight Start Date: 06/09/22 Status: Ordered sertraline 100 mg oral tablet See Instructions, TAKE 1 TABLET BY MOUTH EVERY DAY, # 28 tablet, 5 Refills, Maintenance, 11/30/22 15:39:00 EDT, [facility], 183, cm, 10/08/22 16:18:00 EDT, Height, 71.3, kg, 08/08/21 0:23:00 EDT, Dry Weight Start Date: 11/30/22 Status: Ordered spironolactone 25 mg oral tablet 1, tablet, By Mouth, Daily, # 28 tablet, Refills 4, Maintenance, 07/08/22 11:30:00 EST, Route to Pharmacy Electronically, [facility], 183, cm, 03/16/22 8:31:00 EDT, Height, 71.3, kg, 08/08/21 0:23:00 EDT, Dry Weight Start Date: 07/08/22 Status: Ordered spironolactone 25 mg oral tablet See Instructions, TAKE 1 TABLET BY MOUTH EVERY DAY, # 28 tablet, Refills 4, Maintenance, 11/30/22 15:38:00 EDT, Instructions Replace Required Details, Route to Pharmacy Electronically, [facility] 1960[facility], 183, cm, 10/08/22 16:18:00 EDT, Height, 71.3, kg,... Start Date: 11/30/22 Status: Ordered sucralfate 1 gm oral tablet 1, tablet, By Mouth, 3 times a day before meals, AND BEDTIME., # 112 tablet, Refills 5, Maintenance, 02/04/23 16:32:00 EDT, Route to Pharmacy Electronically, [facility] 04177, 183, cm, 10/08/22 16:18:00 EDT, Height, 71.3, kg, 08/08/21 0:23:00 EDT, Dry... Start Date: 02/04/23 Status: Ordered Vitamin B-12 1000 mcg oral tablet 1, tablet, By Mouth, Daily, # 28 tablet, Refills 0, Maintenance, 02/04/23 17:00:00 EDT, Route to Pharmacy Electronically, [facility] 20303, 183, cm, 10/08/22 16:18:00 EDT, Height, 71.3, [...] artery disease by Rolando [facility]in M.D. at [facility]. 4In the past; states this has resolved Social History Social History Type Response Smoking Status Never smoker entered on: 08/24/16 Sex Patient Care team information Care Team Personnel Name: Irish Samuel RN Position: [facility] RN Member Role: Primary Care Nurse Name: Mireya Ramsey Position: [facility] RN Supv Member Role: Primary Care Nurse Name: Rhea Betancur RN Position: [facility] SN RN Member Role: Primary Care Nurse Name: Hugo Ayala RN Position: [facility] RN Member Role: Primary Care Nurse Name: Lorna Faust RN Position: [facility] RN Member Role: Primary Care Nurse Name: David Gonzalez MD Position: [facility] Renal MD Member Role: Lifetime Consulting Physician Address: Address: [address] [place] [address] [address] [facility] [place] [address]- [place] Name: Hannah Garcia NP Position: [facility] PCO Associate Professional Member Role: PCP Address: Address: [address] [place] [address], [address] [place] [address]- [place] Name: Eduin Arias MD Position: [facility] Renal MD Member Role: Lifetime Consulting Physician Address: Address: [address] [place] [address], [address] [place] [address]- [place] Name: Ana Herrera RN Position: [facility] RN Member Role: Primary Care Nurse Name: Cadence Quach RN Position: [facility] OB RN Member Role: Primary Care Nurse Name: Maggy Tsang RN Position: S RN Member Role: Primary Care Nurse Name: Keyla Keys RN Position: [facility] SN RN Member Role: Primary Care Nurse Name: Марина Guevara RN Position: [facility] RN Member Role: Primary Care Nurse Name: Lyn Helms RN Position: [facility] RN Member Role: Primary Care Nurse Name: Tatum Biswas RN Position: [facility] RN Member Role: Primary Care Nurse Name: Hugo Bateman RN Position: [facility] RN Member Role: Primary Care Nurse Name: Petros Levy RN Position: [facility] RN Member Role: Primary Care Nurse Name: Izabella Braun RN Position: [facility] RN Member Role: Primary Care Nurse Name: Lyndsay King RN Position: [facility] RN Member Role: Primary Care Nurse Name: Felicia Kerr RN Position: [facility] RN Member Role: Primary Care Nurse Name: Hafsa Goyal RN Position: [facility] RN Member Role: Primary Care Nurse Name: Rosalio Jack RN Position: [facility] RN Member Role: Primary Care Nurse Name: Carmela Houser RN Position: [facility] SN RN Member Role: Primary Care Nurse Name: Michael Dickson RN Position: [facility] RN Member Role: Primary Care Nurse Name: Jessica Lema RN Position: [facility] RN Member Role: Primary Care Nurse Name: Phu Flynn MD Position: [facility] Renal MD Member Role: Lifetime Consulting Physician Address: Address: [address] [place] [address] [facility] [address] Name: Yesica Serna RN Position: [facility] OB RN Member Role: Primary Care Nurse Name: Jesusita Lou RN Position: [facility] OB RN Member Role: Primary Care Nurse Name: Husam Elizalde RN Position: [facility] RN Member Role: Primary Care Nurse Care Team Related Persons Name: DUTCH MAR Address: [place], [place] Name: ALL AYERS Address: home [address] [place], [place] Name: ALL MANZANARES Address: home [address], [place] Name: CHRISTEN GRIMALDO Address: [address], [place]
--- OUTSIDE RECORDS SUMMARY | 2023-11-18 12:35 | XMS_ITS | Continuity of Care Document ---
Author Organization [facility] Adult Address [address] [place] [address]- Care Team Providers Care Mold Design Engineer Name Role Phone Radha ODONNELL, Hannah Primary Care Physician [phone] Encounter [facility] [place] Date(s): 04/19/23 - 05/19/23 [facility] Adult [address] [place] [id number]- Allergies, Adverse Reactions, Alerts Substance Reaction Severity [...] 01/09/23 7:22:00 EDT, Route to Pharmacy Electronically, [id number], 183, cm, 10/08/22 16:18:00 EDT, Height, 71.3, kg, 08/08/21 0:23:00 EDT, Dry Weight Start Date: 01/09/23 Status: Ordered amLODIPine 5 mg oral tablet 1 tablet, By Mouth, Daily, # 28 tablet, 5 Refills, Maintenance, 11/25/22 16:21:00 EDT, [id number], 183, cm, 10/08/22 16:18:00 EDT, Height, 71.3, kg, 08/08/21 0:23:00 EDT, Dry Weight Start Date: 11/25/22 Status: Ordered atorvastatin 40 mg oral tablet 1 tablet, By Mouth, Daily, # 28 tablet, 2 Refills, Maintenance, 01/09/23 7:23:00 EDT, [facility], 183, cm, 10/08/22 16:18:00 EDT, Height, 71.3, kg, 08/08/21 0:23:00 EDT, Dry Weight Start Date: 01/09/23 Status: Ordered buPROPion 150 mg/24 hours (XL) oral tablet, extended release 1 tablet, By Mouth, Daily, # 28 tablet, 5 Refills, Maintenance, 04/21/23 18:36:00 EST, [facility]/pharmacy#[id number], 1 tablet By Mouth Daily,x28 days, 183, cm, 03/28/23 11:43:00 EST, Height, 71.3, kg, :23:00 EDT, Dry Weight Start Date: 04/21/23 Stop Date: 10/06/23 Status: Ordered carvedilol 12.5 mg oral tablet 1, tablet, By Mouth, 2 times a day, # 56 tablet, Refills 5, Maintenance, 11/25/22 16:22:00 EDT, Route to Pharmacy Electronically, [id number], 183, cm, 10/08/22 16:18:00 EDT, Height, 71.3, kg, 08/08/21 0:23:00 EDT, Dry Weight Start Date: 11/25/22 Status: Ordered cholecalciferol 50,000 intl units oral capsule 1 capsule = 50,000 International_Units, By Mouth, Every week, # 13 capsule, 3 Refills, Maintenance,03/19/23 15:28:00 EDT, Capsule, [facility]/pharmacy #[id number], Partial fill upon [...] EDT, Route to Pharmacy Electronically, [facility], 183, cm, 03/16/22 8:31:00 EDT, Height, 71.3, [...] 6 Refills, Maintenance, 05/14/2216:30:00 EST, [facility], 183, cm, 03/16/22 8:31:00 EDT, Height, 71.3, kg, 08/08/21 0:23:00 EDT, Dry Weight Start Date: 05/14/22 Status: Ordered Eliquis 5 mg oral tablet 1 tablet, By Mouth, 2 times a day, # 56 tablet, 6 Refills, [facility], 183, cm, 08/12/21 14:20:00 EDT, Height, 71.3, kg, 08/08/21 0:23:00 EDT, Dry Weight Start Date: 09/26/21 Status: Ordered Eliquis 5 mg oral tablet See Instructions, TAKE 1 TABLET BY MOUTH TWICE A DAY, # 56 tablet, 6 Refills, Maintenance, 11/30/2314:39:00 EDT, [facility], 183, cm, 10/08/22 16:18:00 EDT, Height, 71.3, kg, 08/08/21 0:23:00 EDT, Dry Weight Start Date: 11/30/22 Status: Ordered furosemide 40 mg oral tablet 1, tablet, By Mouth, 2 times a day, # 56 tablet, Refills 2, Tot. Refills 2, Maintenance, 04/21/23 18:37:00 EST, Route to Pharmacy Electronically, [facility]/pharmacy #[id number], 183, cm, 03/28/23 [...] tablet, 2 Refills, Maintenance, 04/27/23 13:02:00 EST, [facility] [id number], 183, cm, 03/28/23 11:43:00 EST, Height, 71.3, kg, 08/08/21 0:23:00 EDT, Dry Weight Start Date: 04/27/23 Status: Ordered isosorbide mononitrate 60 mg oral tablet, extended release 1 tablet, By Mouth, Daily in AM, # 28 tablet, 5 Refills, Maintenance, 04/21/23 18:37:00 EST, [facility]/pharmacy #[id number], 183, cm, 03/28/23 11:43:00 EST, Height, 71.3, kg, 08/08/21 0:23:00 EDT, Dry Weight Start Date: 04/21/23 Stop Date: 10/06/23 Status: Ordered Mylanta Maximum Strength oral suspension 5 mL, By Mouth, 4 times a day, PRN for control of stomach acid, # 200 mL, 1 Refills, Maintenance, 08/12/21 13:46:00 EDT, Suspension, [facility]/pharmacy #[id number], Partial fill upon patient request if the prescription is for a schedule II opioid drug., 5 mL By M... Start Date: 08/12/21 Status: Ordered Narcan 4 mg/0.1 mL nasal spray = 4 mg, Nares, Both, Once, may repeat every 2 to 3 minutes until patient responds, # 1 each, 0 Refills, Soft Stop, 05/14/23 10:41:00 EST, [facility]/pharmacy #[id number], Partial fill upon [...] 60 mg, By Mouth, Every 3 hours, SECURITY ASSOCIATE checked., # 112 tablet, 0 Refills, Maintenance, 05/18/23 16:20:00 EST, [id number], 7 days as needs testing performed partial fill upon request;,183, cm, 05/10/23 11:59:00 EST, Height, 71.3, kg,... Start Date: 05/18/23 Stop Date: 05/25/23 Status: Ordered oxyCODONE 30 mg oral tablet 2 tablet = 60 mg, By Mouth, Every 3 hours, SECURITY ASSOCIATE checked., # 112 tablet, 0 Refills, Maintenance, [...] Start Date: 11/30/22 Status: Ordered Potassium Chloride (Gqs-Eyqv-Lxx 10) 10 mEq oral tablet, extended release See Instructions, TAKE 2 TABLETS BY MOUTH EVERY MORNING AND TAKE 1 TABLET EVERY EVENING, # 84 tablet, 2 Refills, Maintenance, 04/27/23 13:02:00 EST, [facility], 183, cm, 03/28/23 11:43:00 EST, Height, 71.3, kg, 08/08/21 0:23:00 EDT, Dry Weight Start Date: 04/27/23 Status: Ordered sertraline 100 mg oral tablet 1 tablet, By Mouth, Daily, # 28 tablet, 5 Refills, Maintenance, 06/09/22 8:26:00 EST, [facility], 183, cm, 03/16/22 8:31:00 EDT, Height, 71.3, kg, 08/08/21 0:23:00 EDT, Dry Weight Start Date: 06/09/22 Status: Ordered sertraline 100 mg oral tablet See Instructions, TAKE 1 TABLET BY MOUTH EVERY DAY, # 28 tablet, 5 Refills, Maintenance, 11/30/22 15:39:00 EDT, [facility] 13[facility], 183, cm, 10/08/22 16:18:00 EDT, Height, 71.3, kg, 08/08/21 0:23:00 EDT, Dry Weight Start Date: 11/30/22 Status: Ordered spironolactone 25 mg oral tablet 1, tablet, By Mouth, Daily, # 28 tablet, Refills 4, Maintenance, 07/08/22 11:30:00 EST, Route to Pharmacy Electronically, [id number], 183, cm, 03/16/22 8:31:00 EDT, Height, 71.3, kg, 08/08/21 0:23:00 EDT, Dry Weight Start Date: 07/08/22 Status: Ordered spironolactone 25 mg oral tablet See Instructions, TAKE 1 TABLET BY MOUTH EVERY DAY, # 28 tablet, Refills 4, Maintenance, 11/30/22 15:38:00 EDT, Instructions Replace Required Details, Route to Pharmacy Electronically, [facility], 183, cm, 10/08/22 16:18:00 EDT, Height, 71.3, kg,... Start Date: 11/30/22 Status: Ordered sucralfate 1 gm oral tablet 1, tablet, By Mouth, 3 times a day before meals, AND BEDTIME., # 112 tablet, Refills 5, Maintenance, 02/04/23 16:32:00 EDT, Route to Pharmacy Electronically, [facility], 183, cm, 10/08/22 16:18:00 EDT, Height, 71.3, kg, 08/08/21 0:23:00 EDT, Dry... Start Date: 02/04/23 Status: Ordered Vitamin B-12 1000 mcg oral tablet 1, tablet, By Mouth, Daily, # 28 tablet, Refills 11, Tot. Refills 11, Maintenance, 04/21/23 18:37:00 EST, Route to Pharmacy Electronically, [facility]/pharmacy #[id number], 183, cm, 03/28/23 [...] artery disease by Rolando Rubin M.D. at [facility]. 4In the past; states this has [...] Member Role: Lifetime Consulting Physician Address: Address: [address] [place] [address] [address] [facility] [address]- [place] Name: Hannah Garcia NP Position: [facility] PCO Associate Professional Member Role: PCP Address: Address: [address] [place] [address], [address] [place] [address]- [place] Name: Eduin Arias MD Position: [facility] Renal MD Member Role: Lifetime Consulting Physician Address: Address: [address] [place] [address], [address] [place] [address]- [place] Name: Ana Herrera RN Position: [facility] RN Member [...] Member Role: Primary Care Nurse Name: Cirilo CRUST SORTERFelicia Position: [facility] Medical Student Member Role: Primary Care Nurse [...] Role: Lifetime Consulting Physician Address: Address: [address] [place] [address] [facility] [address] Name: Yesica Serna RN Position: [facility] [...] Related Persons Name: DUTCH MAR Address: home [place], [place] Name: ALL AYERS Address: home [address] [place], [place] Name: ALL MANZANARES Address: home [address] [place], [place] Name: CHRISTEN GRIMALDO Address: home [address] [place], [place]
--- OUTSIDE RECORDS SUMMARY | 2023-11-18 12:35 | XMS_ITS | Continuity of Care Document ---
Author Organization [facility] Adult Address [address] [place] [id number]- Care Team Providers Care Bus Aide Name Role Phone Radha ODONNELL, Hannah Primary Care Physician Encounter [facility] [place] Date(s): 06/08/23 - 07/08/23 [facility] [address] [place] [id number]- Allergies, Adverse Reactions, Alerts Substance Reaction Severity [...] 06/30/23 12:58:00 EST, Route to Pharmacy Electronically, [facility]/pharmacy #[id number], 183, cm, 05/10/23 11:59:00 EST, Height, 71.3, kg, 08/08/21 0:23:00 EDT, Dry Weight Start Date: 06/30/23 Status: Ordered amLODIPine 5 mg oral tablet 1 tablet, By Mouth, Daily, # 84 tablet, 0 Refills, Maintenance, 06/30/23 12:58:00 EST, [facility]/pharmacy#[id number], 183, cm, 05/10/23 11:59:00 EST, Height, 71.3, kg, 08/08/21 0:23:00 EDT, Dry Weight Start Date: 06/30/23 Status: Ordered atorvastatin 40 mg oral tablet 1 tablet, By Mouth, Daily, # 90 tablet, 1 Refills, Maintenance, 07/01/23 15:53:00 EST, [facility]/pharmacy#[id number], 183, cm, 05/10/23 11:59:00 EST, Height, [...] tablet, 5 Refills, Maintenance, 04/21/23 18:36:00 EST, [facility]/pharmacy#[id number], 1 tablet By Mouth Daily,x28 days, 183, cm, 03/28/23 11:43:00 EST, Height, 71.3, kg, :23:00 EDT, Dry Weight Start Date: 04/21/23 Stop Date: 10/06/23 Status: Ordered carvedilol 12.5 mg oral tablet 1, tablet, By Mouth, 2 times a day, # 180 tablet, Refills 0, Tot. Refills 0, Maintenance, 07/01/23 15:49:00 EST, Route to Pharmacy Electronically, [facility]/pharmacy #[id number], 183, cm, 05/10/23 11:59:00 EST, Height, 71.3, kg, 08/08/21 0:23:00 EDT, Dry Weight Start Date: 07/01/23 Status: Ordered cholecalciferol 50,000 intl units oral capsule 1 capsule = 50,000 International_Units, By Mouth, Every week, # 13 capsule, 3 Refills, Maintenance,03/19/23 15:28:00 EDT, Capsule, [facility]/pharmacy #[id number], Partial fill upon patient request if the prescription is for a schedule II opioid drug., 183, cm, 0... Start Date: 03/19/23 Stop Date: 03/13/24 Status: Ordered cholecalciferol 50,000 intl units oral capsule 1 capsule = 50,000 International_Units, By Mouth, Every 7 days, # 13 capsule, 3 Refills, Maintenance, 03/20/23 8:29:00 EST, Capsule, [facility]/pharmacy #[id number], Partial fill upon patient request, 183, cm, 10/08/22 16:18:00 EDT, Height, 71.3, kg, 08/08/21 0:23... Start Date: 03/20/23 Stop Date: 03/14/24 Status: Ordered clopidogrel 75 mg oral tablet 1, tablet, By Mouth, Daily, # 28 tablet, Refills 5, Tot. Refills 5, Maintenance, 06/08/23 14:08:00 EST, Route to Pharmacy Electronically, [facility]/pharmacy #[id number], 183, cm, 05/10/23 11:59:00 EST, [...] day, # 56 tablet, 6 Refills, [facility] 156[facility], 183, cm, 08/12/21 14:20:00 EDT, Height, 71.3, kg, 08/08/21 0:23:00 EDT, Dry Weight Start Date: 09/26/21 Status: Ordered Eliquis 5 mg oral tablet See Instructions, TAKE 1 TABLET BY MOUTH TWICE A DAY, # 56 tablet, 6 Refills, Maintenance, 06/07/2409:23:00 EST, [facility]/pharmacy #[id number], 183, cm, 05/10/23 11:59:00 EST, Height, 71.3, kg, 08/08/21 0:23:00 EDT, Dry Weight Start Date: 06/07/23 Status: Ordered furosemide 40 mg oral tablet 1, tablet, By Mouth, 2 times a day, # 168 tablet, Refills 1, Tot. Refills 1, Maintenance, 06/30/23 12:20:00 EST, Route to Pharmacy Electronically, [facility]/pharmacy #[id number], 183, cm, 05/10/23 11:59:00 EST, [...] tablet, 0 Refills, Maintenance, 07/01/23 15:48:00 EST, [facility]/pharmacy #[id number], 183, cm, 05/10/23 11:59:00 EST, Height, 71.3, kg, 08/08/21 0:23:00 EDT, Dry Weight Start Date: 07/01/23 Status: Ordered isosorbide mononitrate 60 mg oral tablet, extended release 1 tablet, By Mouth, Daily in AM, # 28 tablet, 5 Refills, Maintenance, 04/21/23 18:37:00 EST, [facility]/pharmacy #[id number], 183, cm, 03/28/23 11:43:00 EST, Height, 71.3, kg, 08/08/21 0:23:00 EDT, Dry Weight Start Date: 04/21/23 Stop Date: 10/06/23 Status: Ordered Mylanta Maximum Strength oral suspension 5 mL, By Mouth, 4 times a day, PRN for control of stomach acid, # 200 mL, 1 Refills, Maintenance, 08/12/21 13:46:00 EDT, Suspension, [facility]/pharmacy #[id number], Partial fill upon patient request if the prescription is for a schedule II opioid drug., 5 mL By M... Start Date: 08/12/21 Status: Ordered Narcan 4 mg/0.1 mL nasal spray = 4 mg, Nares, Both, Once, may repeat every 2 to 3 minutes until patient responds, # 1 each, 0 Refills, Soft Stop, 05/14/23 10:41:00 EST, [facility]/pharmacy #[id number], Partial fill upon patient request if the prescription is for a schedule II opioid drug., 183,... Start Date: 05/14/23 Status: Ordered nitroglycerin 0.4 mg sublingual tablet 1 tablet = 0.4 mg, Sublingual, Every 5 minutes, PRN Chest Pain, # 25 tablet, 3 Refills, Maintenance, 08/24/19 15:40:00 EDT, [facility]/pharmacy #[id number], 183, cm, 05/25/19 15:06:00 EST, Height, 88.3, kg, 08/31/17 3:30:00 EDT, Dry Weight Start Date: 08/24/19 Stop Date: 12/22/19 Status: Ordered oxyCODONE 30 mg oral tablet 1-2 tablet, By Mouth, Every 3 hours, # 70 tablet, 0 Refills, Maintenance, 07/06/23 18:13:00 EST, [facility]/pharmacy #[id number], may partial fill upon request;, [...] Start Date: 06/24/23 Status: Ordered Potassium Chloride (Jpp-Irim-Urd 10) 10 mEq oral tablet, extended release See Instructions, TAKE 2 TABLETS BY MOUTH EVERY MORNING AND TAKE 1 TABLET EVERY EVENING, # 270 tablet, 1 Refills, Maintenance, 07/01/23 15:52:00 EST, [facility]/pharmacy #[id number], 183, cm, 05/10/23 11:59:00 EST, Height, 71.3, kg, 08/08/21 0:23:00 EDT, Dry Weight Start Date: 07/01/23 Status: Ordered sertraline 100 mg oral tablet 1 tablet, By Mouth, Daily, # 84 tablet, 0 Refills, Maintenance, 06/30/23 12:22:00 EST, [facility]/pharmacy#[id number], 183, cm, 05/10/23 11:59:00 EST, Height, 71.3, kg, 08/08/21 0:23:00 EDT, Dry Weight Start Date: 06/30/23 Stop Date: 09/22/23 Status: Ordered sertraline 100 mg oral tablet See Instructions, TAKE 1 TABLET BY MOUTH EVERY DAY, # 28 tablet, 5 Refills, Maintenance, 11/30/22 15:39:00 EDT, [id number], 183, cm, 10/08/22 16:18:00 EDT, Height, 71.3, kg, 08/08/21 0:23:00 EDT, Dry Weight Start Date: 11/30/22 Status: Ordered spironolactone 25 mg oral tablet 1, tablet, By Mouth, Daily, # 28 tablet, Refills 4, Maintenance, 06/24/23 7:44:00 EST, Route to Pharmacy Electronically, [facility], 183, cm, 05/10/23 11:59:00 EST, Height, 71.3, kg, 08/08/21 0:23:00 EDT, Dry Weight Start Date: 06/24/23 Status: Ordered sucralfate 1 gm oral tablet 1, tablet, By Mouth, 3 times a day before meals, AND BEDTIME., # 112 tablet, Refills 5, Maintenance, 02/04/23 16:32:00 EDT, Route to Pharmacy Electronically, [id number], 183, cm, 10/08/22 16:18:00 EDT, Height, 71.3, kg, 08/08/21 0:23:00 EDT, Dry... Start Date: 02/04/23 Status: Ordered Vitamin B-12 1000 mcg oral tablet 1, tablet, By Mouth, Daily, # 28 tablet, Refills 11, Tot. Refills 11, Maintenance, 04/21/23 18:37:00 EST, Route to Pharmacy Electronically, [facility]/pharmacy #[id number], 183, cm, 03/28/23 11:43:00 EST, [...] artery disease by Rolando Rubin M.D. at [facility]. 4In the past; states this [...] Member Role: Primary Care Nurse Name: Hugo Aayla RN Position: [facility] RN Member Role: Primary Care Nurse Name: Lorna Faust RN Position: [facility] RN Member Role: Primary Care Nurse Name: David Gonzalez MD Position: [facility] Renal MD Member Role: Lifetime Consulting Physician Address: Address: [address] [place] [address] [address] [place] [address]- [place] Name: Hannah Garcia NP Position: [facility] PCO Associate Professional Member Role: PCP Address: Address: [address] [facility], 3rd [place] [address]- [place] Name: Eduin Arias MD Position: [facility] Renal MD Member Role: Lifetime Consulting Physician Address: Address: [address] [place] [address], [address] [place] [address]- [place] Name: Ana Herrera RN Position: [facility] [...] Role: Lifetime Consulting Physician Address: Address: [address] [facility] [place], [place] [address] Name: Yesica Serna RN Position: S OB RN Member Role: Primary Care Nurse Name: Jesusita Lou RN Position: [facility] RN Member Role: Primary Care Nurse Name: Husam Elizalde RN Position: S RN Member Role: Primary Care Nurse Name: Marshall Byrd RN Position: S RN Member Role: Primary Care Nurse Care Team Related Persons Name: DUTCH MAR Address: [place] [address] Name: ALL AYERS Address: home [address] [place], [place] Name: ALL MANZANARES Address: home [address] [place] [address] Name: CHRISTEN GRIMALDO Address: [address] [place] [address]
--- OUTSIDE RECORDS SUMMARY | 2023-11-18 12:35 | XMS_ITS | Continuity of Care Document ---
Author Organization [facility] Adult Address [address] [place] [address]- Care Team Providers Care Shop Repairer Name Role Phone Radha ODONNELL, Hannah Primary Care Physician [phone] Encounter [facility] Date(s): 04/13/23 - 05/13/23 [facility] [address] [place] [id number]- Allergies, Adverse Reactions, Alerts Substance Reaction Severity [...] 01/09/23 7:22:00 EDT, Route to Pharmacy Electronically, [facility], 183, cm, 10/08/22 16:18:00 EDT, Height, 71.3, kg, 08/08/21 0:23:00 EDT, Dry Weight Start Date: 01/09/23 Status: Ordered amLODIPine 5 mg oral tablet 1 tablet, By Mouth, Daily, # 28 tablet, 5 Refills, Maintenance, 11/25/22 16:21:00 EDT, [facility], 183, cm, 10/08/22 16:18:00 EDT, Height, 71.3, kg, 08/08/21 0:23:00 EDT, Dry Weight Start Date: 11/25/22 Status: Ordered atorvastatin 40 mg oral tablet 1 tablet, By Mouth, Daily, # 28 tablet, 2 Refills, Maintenance, 01/09/23 7:23:00 EDT, [facility], 183, cm, 10/08/22 16:18:00 EDT, Height, 71.3, [...] EDT, Route to Pharmacy Electronically, [facility], 183, cm, 10/08/22 16:18:00 EDT, Height, 71.3, [...] EDT, Route to Pharmacy Electronically, [facility], 183, cm, 03/16/22 8:31:00 EDT, Height, 71.3, [...] 6 Refills, Maintenance, 05/14/2216:30:00 EST, [facility], 183, cm, 03/16/22 8:31:00 EDT, Height, 71.3, kg, 08/08/21 0:23:00 EDT, Dry Weight Start Date: 05/14/22 Status: Ordered Eliquis 5 mg oral tablet 1 tablet, By Mouth, 2 times a day, # 56 tablet, 6 Refills, [facility], 183, cm, 08/12/21 14:20:00 EDT, Height, 71.3, kg, 08/08/21 0:23:00 EDT, Dry Weight Start Date: 09/26/21 Status: Ordered Eliquis 5 mg oral tablet See Instructions, TAKE 1 TABLET BY MOUTH TWICE A DAY, # 56 tablet, 6 Refills, Maintenance, 11/30/2314:39:00 EDT, [facility], 183, cm, 10/08/22 16:18:00 EDT, Height, 71.3, kg, 08/08/21 0:23:00 EDT, Dry Weight Start Date: 11/30/22 Status: Ordered furosemide 40 mg oral tablet 1, tablet, By Mouth, 2 times a day, # 56 tablet, Refills 2, Tot. Refills 2, Maintenance, 04/21/23 18:37:00 EST, Route to Pharmacy Electronically, [facility]/pharmacy #[id number], 183, cm, 03/28/23 11:43:00 [...] tablet, 2 Refills, Maintenance, 04/27/23 13:02:00 EST, [facility], 183, cm, 03/28/23 11:43:00 EST, Height, 71.3, kg, 08/08/21 0:23:00 EDT, Dry Weight Start Date: 04/27/23 Status: Ordered isosorbide mononitrate 60 mg oral tablet, extended release 1 tablet, By Mouth, Daily in AM, # 28 tablet, 5 Refills, Maintenance, 04/21/23 18:37:00 EST, [facility]/pharmacy #[id number], 183, cm, 03/28/23 11:43:00 EST, Height, 71.3, kg, 08/08/21 0:23:00 EDT, Dry Weight Start Date: 04/21/23 Stop Date: 10/06/23 Status: Ordered Mylanta Maximum Strength oral suspension 5 mL, By Mouth, 4 times a day, PRN for control of stomach acid, # 200 mL, 1 Refills, Maintenance, 08/12/21 13:46:00 EDT, Suspension, [facility]/pharmacy #[id number], Partial fill upon patient request if the prescription is for a schedule II opioid drug., 5 mL By M... Start Date: 08/12/21 Status: Ordered nitroglycerin 0.4 mg sublingual tablet 1 tablet = 0.4 mg, Sublingual, Every 5 minutes, PRN Chest Pain, # 25 tablet, 3 Refills, Maintenance, 08/24/19 15:40:00 EDT, [id number], [facility], cm, 05/25/19 15:06:00 EST, Height, 88.3, kg, 08/31/17 3:30:00 EDT, Dry Weight Start Date: 08/24/19 Stop Date: 12/22/19 Status: Ordered oxyCODONE 30 mg oral tablet 2 tablet = 60 mg, By Mouth, Every 3 hours, MACHINIST/MACHINE BUILDER checked., # 112 tablet, 0 Refills, Maintenance, 05/10/23 13:38:00 EST, [facility]/pharmacy #[id number], may partial fill upon request;, 183, cm, 05/10/23 11:59:00 EST, Height, 71.3, kg, 08/08/21 0:23:00 EDT, Dry Weight Start Date: 05/10/23 Stop Date: 05/17/23 Status: Ordered oxyCODONE 30 mg oral tablet 2 tablet = 60 mg, By Mouth, Every 3 hours, MACHINIST/MACHINE BUILDER checked. [email or web address] 03/28/23, # 112 tablet, 0 Refills, Maintenance, 03/28/23 7:01:00 EST, [facility]/pharmacy #[id number], 7 days as needs testing [...] Start Date: 11/30/22 Status: Ordered Potassium Chloride (Swk-Ceki-Tha 10) 10 mEq oral tablet, extended release See Instructions, TAKE 2 TABLETS BY MOUTH EVERY MORNING AND TAKE 1 TABLET EVERY EVENING, # 84 tablet, 2 Refills, Maintenance, 04/27/23 13:02:00 EST, [facility], 183, cm, 03/28/23 11:43:00 EST, Height, 71.3, kg, 08/08/21 0:23:00 EDT, Dry Weight Start Date: 04/27/23 Status: Ordered sertraline 100 mg oral tablet 1 tablet, By Mouth, Daily, # 28 tablet, 5 Refills, Maintenance, 06/09/22 8:26:00 EST, [facility], 183, cm, 03/16/22 8:31:00 EDT, Height, 71.3, kg, 08/08/21 0:23:00 EDT, Dry Weight Start Date: 06/09/22 Status: Ordered sertraline 100 mg oral tablet See Instructions, TAKE 1 TABLET BY MOUTH EVERY DAY, # 28 tablet, 5 Refills, Maintenance, 11/30/22 15:39:00 EDT, [facility], 183, cm, 10/08/22 16:18:00 EDT, Height, 71.3, kg, 08/08/21 0:23:00 EDT, Dry Weight Start Date: 11/30/22 Status: Ordered spironolactone 25 mg oral tablet 1, tablet, By Mouth, Daily, # 28 tablet, Refills 4, Maintenance, 07/08/22 11:30:00 EST, Route to Pharmacy Electronically, [facility], 183, cm, 03/16/22 8:31:00 EDT, Height, 71.3, kg, 08/08/21 0:23:00 EDT, Dry Weight Start Date: 07/08/22 Status: Ordered spironolactone 25 mg oral tablet See Instructions, TAKE 1 TABLET BY MOUTH EVERY DAY, # 28 tablet, Refills 4, Maintenance, 11/30/22 15:38:00 EDT, Instructions Replace Required Details, Route to Pharmacy Electronically, [facility], 183, cm, 10/08/22 16:18:00 EDT, Height, 71.3, kg,... Start Date: 11/30/22 Status: Ordered sucralfate 1 gm oral tablet 1, tablet, By Mouth, 3 times a day before meals, AND BEDTIME., # 112 tablet, Refills 5, Maintenance, 02/04/23 16:32:00 EDT, Route to Pharmacy Electronically, [facility], 183, cm, 10/08/22 16:18:00 EDT, Height, 71.3, kg, 08/08/21 0:23:00 EDT, Dry... Start Date: 02/04/23 Status: Ordered Vitamin B-12 1000 mcg oral tablet 1, tablet, By Mouth, Daily, # 28 tablet, Refills 11, Tot. Refills 11, Maintenance, 04/21/23 18:37:00 EST, Route to Pharmacy Electronically, [facility] #[id number], 183, cm, 03/28/23 11:43:00 [...] Primary Care Nurse Name: Mireya Ramsey Position: [facility] RN Supv Member Role: Primary Care Nurse Name: Rhea Betancur RN Position: [facility] SN RN Member Role: Primary Care Nurse Name: Hugo Ayala RN Position: [facility] RN Member Role: Primary Care Nurse Name: Lorna Faust RN Position: [facility] RN Member Role: Primary Care Nurse Name: David Gonzalez MD Position: [facility] Renal MD Member Role: Lifetime Consulting Physician Address: Address: [address] [place] [address] [address] [place] [address]- [place] Name: Hannah Garcia NP Position: [facility] PCO Associate Professional Member Role: PCP Address: Address: [address] [place] [address], [address] [place] [address]- [place] Name: Eduin Arias MD Position: [facility] Renal MD Member Role: Lifetime Consulting Physician Address: Address: [address] [place] [address], [address] [address]- [place] Name: Ana Herrera RN Position: [facility] RN Member Role: Primary Care Nurse Name: Cadence Quach RN Position: [facility] OB RN Member Role: Primary Care Nurse Name: Maggy Tsang RN Position: [facility] RN Member Role: Primary Care Nurse Name: Keyla Keys RN Position: [facility] SN RN Member Role: Primary Care Nurse Name: Марина Guevara RN Position: [facility] SN RN Member Role: Primary Care Nurse Name: Lyn Helms RN Position: [facility] RN Member Role: Primary Care Nurse Name: Tatum Biswas RN Position: [facility] RN Member Role: Primary Care Nurse Name: Hugo Bateman RN Position: [facility] RN Member Role: Primary Care Nurse Name: Petros Levy RN Position: [facility] RN Member Role: Primary Care Nurse Name: Izabella Braun RN Position: [facility] RN Member Role: Primary Care Nurse Name: Lyndsay King RN Position: [facility] RN Member Role: Primary Care Nurse Name: Felicia Kerr NP Position: [facility] Medical Student Member Role: Primary Care Nurse Name: Hafsa Goyal RN Position: [facility] RN Member Role: Primary Care Nurse Name: Rosalio Jack RN Position: [facility] RN Member Role: Primary Care Nurse Name: Carmela Houser RN Position: [facility] SN RN Member Role: Primary Care Nurse Name: Michael Dickson RN Position: [facility] RN Member Role: Primary Care Nurse Name: Jessica Lema RN Position: [facility] RN Member Role: Primary Care Nurse Name: Phu Flynn MD Position: [facility] Renal MD Member Role: Lifetime Consulting Physician Address: Address: [address] [place] [address] [facility] [address] Name: Yesica Serna RN Position: [facility] OB RN Member Role: Primary Care Nurse Name: Jesusita Lou RN Position: [facility] OB RN Member Role: Primary Care Nurse Name: Husam Elizalde RN Position: [facility] RN Member Role: Primary Care Nurse Name: Marshall Byrd RN Position: [facility] RN Member Role: Primary Care Nurse Care Team Related Persons Name: DUTCH MAR Address: home [place], [place] Name: ALL AYERS Address: home [address], [place] Name: ALL MANZANARES Address: home [address], [place] Name: CHRISTEN GRIMALDO Address: home [address], [place]
--- OUTSIDE RECORDS SUMMARY | 2023-11-18 12:35 | XMS_ITS | Continuity of Care Document ---
Author Organization [facility] Adult Address [address] [place] [address]- Care Team Providers Care Manager Security And Safety Name Role Phone Radha ODONNELL, Hannah Primary Care Physician Encounter [facility] Date(s): 01/28/20 - 02/27/[address] [facility] [address] [place] [id number]- [facility] Allergies, Adverse Reactions, Alerts Substance [...] [id number], 183, cm, 11/05/19 9:35:0... Start Date: 12/24/19 Status: Ordered amLODIPine 5 mg oral tablet 5 mg, 1, tablet, By Mouth, Daily, # 30 tablet, Refills 5, Tot. Refills 5, Maintenance, 11/26/19 14:40:00 EDT, Route to Pharmacy Electronically, [facility] [...] 10/26/19 11:37:00 EDT, Route to Pharmacy Electronically, [facility]/pharmacy #[id number], 183, cm, 05/25/19 15:06:00EST, Height Start Date: 10/26/19 Status: Ordered clopidogrel 75 mg oral tablet 75 mg, 1, tablet, By Mouth, Daily, # 30 tablet, Refills 5, Tot. Refills 5, Maintenance, 12/24/19 13:07:00 EDT, Route to Pharmacy Electronically, [facility] [...] 11/22/17 13:28:22 EDT, Route to Pharmacy Electronically, [id number], [facility]/pharmacy #[id number] Start Date: [...] 02/06/20 10:28:00 EDT, [id number], this replaces previous script. Pt [...] 09/11/19 14:15:00 EDT, Route to Pharmacy Electronically, [facility]/pharmacy #[id number], 183, cm, 05/25/19 15:06:00 EST, Height, Dry Weight Start Date: 09/11/19 Stop Date: 03/09/20 Status: Ordered NIFEdipine 30 mg oral tablet, extended release 30 mg, 1, tablet, By Mouth, Daily, Bubble Pack and Delivery, # 30 tablet, Refills 3, Tot. Refills 3, Maintenance, 03/27/18 8:38:30 EST, Route to Pharmacy Electronically, [id number], [facility]/pharmacy #[id number] Start Date: [...] 60 mg, By Mouth, Every 3 hours, MANAGER FINANCIAL REPORTING checked, # 224 tablet, 0 Refills, Acute 05/15/20 10:26:00 EST, 02/13/20 12:56:00 EDT, [facility]/pharmacy #[id number], may partial [...] Refills, Maintenance, 02/06/20 16:13:00 EDT, ER Tablet, [facility]/pharmacy #[id number], [...] 02/18/20 14:47:00 EDT, [facility]ically, [id number], 183, cm, 02/05/20 12:53:00 EDT, Height Start Date: 02/18/20 Stop Date: 04/18/20 Status: Ordered sucralfate 1 gm oral tablet 1 Gm, 1, tablet, By Mouth, 3 times a day before meals and bedtime, # 120 tablet, Refills 2, Tot. Refills 2, Maintenance, 02/13/20 15:20:00 EDT, [facility]ically, [id number], 183, cm, 02/05/20 12:53:00 EDT, Height, Dry Weight Start Date: 02/13/20 Status: Ordered Vitamin B-12 1000 mcg oral tablet 1,000 mcg, 1, tablet, By Mouth, Daily, # 30 tablet, Refills 1, Tot. Refills 1, Soft Stop, 02/18/20 14:47:00 EDT, [facility] to Pharm[facility]ically, [id number], 183, cm, 02/05/20 12:53:00 EDT, [...] artery disease by Rolando Rubin M.D. at [facility]. 5In the past; states this has resolved Social History Social History Type Response Smoking Status Never smoker entered on: 08/24/16 Sex
--- OUTSIDE RECORDS SUMMARY | 2023-11-18 12:36 | XMS_ITS | Continuity of Care Document ---
Author Organization [facility] Adult Address [address] [place] [address]- Care Team Providers Care Tax Accountant Name Role Phone Radha ODONNELL, Hannah Primary Care Physician Encounter [facility] Date(s): 03/10/21 - 04/09/21 [facility] [address] [place] [id number]- Allergies, Adverse Reactions, Alerts Substance Reaction Severity [...] tablet, Refills 2, Route to Pharmacy Electronically, [facility], 183, cm, 08/05/20 8:57:00 EDT, Height Start Date: 03/14/21 Status: Ordered amLODIPine 5 mg oral tablet 1 tablet, By Mouth, Daily, # 30 tablet, 5 Refills, Maintenance, 10/22/20 16:57:00 EDT, [facility], 183, cm, 08/05/20 8:57:00 EDT, Height Start Date: 10/22/20 Status: Ordered atorvastatin 40 mg oral tablet 1 tablet, By Mouth, Daily, # 28 tablet, 5 Refills, Maintenance, 11/19/20 20:20:00 EDT, [facility]/pharmacy#[id number], 183, cm, 08/05/20 8:57:00 EDT, Height Start Date: 11/19/20 Status: Ordered buPROPion 150 mg/24 hours (XL) oral tablet, extended release 1 tablet, By Mouth, Every 24 hours, # 28 tablet, 2 Refills, [facility], 28, TAKE 1 TABLET BY MOUTH EVERY 24 HOURS, 183, cm, 08/05/20 8:57:00 EDT, Height Start Date: 03/10/21 Status: Ordered carvedilol 12.5 mg oral tablet 1, tablet, By Mouth, 2 times a day, # 56 tablet, Refills 2, Route to Pharmacy Electronically, [facility], 183, cm, 08/05/20 8:57:00 EDT, Height Start Date: 02/10/21 Status: Ordered clopidogrel 75 mg oral tablet 1, tablet, By Mouth, Daily, # 30 tablet, Refills 5, Tot. Refills 0, Maintenance, 11/04/20 9:43:00 EDT, Route to Pharmacy Electronically, [facility], 183, cm, 08/05/20 8:57:00 EDT, Height Start Date: 11/04/20 Status: Ordered [facility] B-12 1,000 MCG TABLET See Instructions, # 30 tablet, TAKE 1 TABLET BY MOUTH EVERY DAY, [facility]/pharmacy #[id number] Start Date: 03/20/19 Status: Ordered docusate sodium 100 mg oral capsule 100 mg, 1, capsule, By Mouth, 3 times a day, Bubble Pack and Delivery, # 90 capsule, Refills 5, Tot. Refills 5, Maintenance, 11/22/17 13:28:22 EDT, Route to Pharmacy Electronically, [id number], [facility]/pharmacy #[id number] Start Date: 11/22/17 Stop Date: 05/21/18 Status: Ordered Eliquis 5 mg oral tablet 1 tablet, By Mouth, 2 times a day, # 56 tablet, 6 Refills, [facility], 183, cm, 08/05/20 8:57:00 EDT, Height Start Date: 01/27/21 Status: Ordered furosemide 40 mg oral tablet 1, tablet, By Mouth, 2 times a day, # 56 tablet, Refills 2, Route to Pharmacy Electronically, [facility], 183, cm, 08/05/20 8:57:00 EDT, Height Start Date: 03/10/21 Status: Ordered hydrALAZINE 50 mg oral tablet 1 tablet = 50 mg, By Mouth, 3 times a day, dose change, # 90 tablet, 1 Refills, Maintenance, 09/10/19 10:37:00 EDT, Tablet, [facility]/pharmacy #[id number], 183, cm, 05/25/19 15:06:00 EST, Height Start Date: 09/10/19 Stop Date: 11/09/19 Status: Ordered isosorbide mononitrate 60 mg oral tablet, extended release 1 tablet, By Mouth, Daily in AM, # 28 tablet, 6 Refills, Maintenance, 10/22/20 16:57:00 EDT, [facility], 183, cm, 08/05/20 8:57:00 EDT, Height Start Date: 10/22/20 Status: Ordered NIFEdipine 30 mg oral tablet, extended release 30 mg, 1, tablet, By Mouth, Daily, Bubble Pack and Delivery, # 30 tablet, Refills 3, Tot. Refills 3, Maintenance, 03/27/18 8:38:30 EST, Route to Pharmacy Electronically, [id number], [facility]/pharmacy #[id number] Start Date: 03/27/18 Status: [...] 60 mg, By Mouth, Every 3 hours, MACHINE RIVETER checked fill on 04/06/21, # 224 tablet, 0 Refills, Acute 05/15/21 8:57:00 EST, 04/03/21 12:51:00 EST, [facility]/pharmacy #[id number], may partial fill upon request;, 04/06/21, 183, cm, 08/05/20 8:57:00 EDT, Height Start Date: 04/03/21 Stop Date: 05/15/21 Status: Ordered pantoprazole 40 mg oral delayed release tablet 1 tablet, By Mouth, Daily, # 28 tablet, 2 Refills, 183, cm, 08/05/20 8:57:00 EDT, Height Start Date: 02/10/21 Status: Ordered Potassium Chloride (Gac-Rlut-Hal 10) 10 mEq oral tablet, extended release See Instructions, TAKE 2 TABLETS BY MOUTH EVERY MORNING AND TAKE 1 TABLET EVERY EVENING, # 84 tablet, 2 Refills, [facility], 183, cm, 08/05/20 8:57:00 EDT, Height Start Date: 02/10/21 Status: Ordered sertraline 100 mg oral tablet 1 tablet, By Mouth, Daily, # 28 tablet, 5 Refills, Maintenance, 11/20/20 10:42:00 EDT, [facility], 183, cm, 08/05/20 8:57:00 EDT, Height Start Date: 11/20/20 Status: Ordered spironolactone 25 mg oral tablet 1, tablet, By Mouth, Daily, # 28 tablet, Refills 2, Route to Pharmacy Electronically, [facility], 183, cm, 08/05/20 8:57:00 EDT, Height Start Date: 02/10/21 Status: Ordered sucralfate 1 gm oral tablet 1, tablet, By Mouth, 3 times a day before meals, AND BEDTIME., # 112 tablet, Refills 2, Route to Pharmacy Electronically, [facility], 183, cm, 08/05/20 8:57:00 EDT, Height Start Date: 01/27/21 Status: Ordered Vitamin B-12 1000 mcg oral tablet 1, tablet, By Mouth, Daily, # 28 tablet, Refills 5, Route to Pharmacy Electronically, [facility], 183, cm, 08/05/20 8:57:00 EDT, Height Start [...]
--- OUTSIDE RECORDS SUMMARY | 2023-11-18 12:36 | XMS_ITS | Continuity of Care Document ---
Author Organization [facility] Adult Address [address] [place] [address]- Care Team Providers Care Spring Former Machine Name Role Phone Radha ODONNELL, Hannah Primary Care Physician Encounter [facility] [place](s): 07/24/20 - 08/23/20 [facility] [address] [place] [id number]- Allergies, Adverse Reactions, Alerts Substance Reaction Severity [...] Replace Required Details, Route to Pharmacy Electronically, [facility]/pharmacy #[id number], 183, cm, 05/12/20 9:35:00... Start Date: 05/15/20 Status: Ordered amLODIPine 5 mg oral tablet 5 mg, 1, tablet, By Mouth, Daily, # 30 tablet, Refills 5, Tot. Refills 5, Maintenance, 04/29/20 13:47:00 EST, Route to Pharmacy Electronically, [facility]/pharmacy #[id number], 183, cm, 02/05/20 12:53:00 EDT, Height Start Date: 04/29/20 Stop Date: 10/26/20 Status: Ordered atorvastatin 40 mg oral tablet See Instructions, TAKE 1 TABLET BY MOUTH EVERY DAY, # 28 tablet, 5 Refills, Soft Stop, 07/05/20 11:24:00 EST, [facility]/pharmacy #[id number], 183, cm, 05/12/20 9:35:00 EST, Height Start Date: 07/05/20 Status: Ordered buPROPion 150 mg/24 hours (XL) oral tablet, extended release 1 tablet = 150 mg, By Mouth, Every 24 hours, # 30 tablet, 5 Refills, Maintenance, 08/01/20 9:50:00 EDT, ER Tablet, [facility]/pharmacy #[id number], Bubble pack and delivery, 1 tablet By Mouth Every 24 hours, 183,cm, 05/12/20 9:35:00 EST, Height Start Date: 08/01/20 Status: Ordered carvedilol 12.5 mg oral tablet 12.5 mg, 1, tablet, By Mouth, 2 times a day, # 60 tablet, Refills 2, Tot. Refills 2, Soft Stop, 07/01/20 13:57:00 EST, Route to Pharmacy Electronically, [facility]/pharmacy #[id number], 183, cm, 05/12/20 9:35:00 EST, Height Start Date: 07/01/20 Status: Ordered clopidogrel 75 mg oral tablet 75 mg, 1, tablet, By Mouth, Daily, # 30 tablet, Refills 5, Tot. Refills 5, Maintenance, 05/15/20 15:55:00 EST, Route to Pharmacy Electronically, [facility]/pharmacy #[id number], 183, cm, 05/12/20 9:35:00 EST, Height Start Date: 05/15/20 Status: Ordered [facility] B-12 1,000 MCG TABLET See Instructions, # 30 tablet, TAKE 1 TABLET BY MOUTH EVERY DAY, [facility]/pharmacy #[id number] Start Date: 03/20/19 Status: Ordered docusate sodium 100 mg oral capsule 100 mg, 1, capsule, By Mouth, 3 times a day, Bubble Pack and Delivery, # 90 capsule, Refills 5, Tot. Refills 5, Maintenance, 11/22/17 13:28:22 EDT, Route to Pharmacy Electronically, [id number], [facility]/pharmacy #[id number] Start Date: 11/22/17 Stop Date: 05/21/18 Status: Ordered Eliquis 5 mg oral tablet 1 tablet = 5 mg, By Mouth, 2 times a day, # 60 tablet, 5 Refills, Maintenance, 08/01/20 11:10:00 EDT, Tablet, [facility]/pharmacy #[id number], 183, cm, 05/12/20 9:35:00 EST, Height Start Date: 08/01/20 Status: Ordered furosemide 40 mg oral tablet 40 mg, 1, tablet, By Mouth, 2 times a day, # 60 tablet, Refills 2, Tot. Refills 2, Soft Stop, 08/03/20 14:35:00 EDT, [id number] previous script. Pt is on 2 tabs daily, 183, cm, 05/12/20 9:35:00... Start Date: 08/03/20 Stop Date: 11/01/20 Status: Ordered hydrALAZINE 50 mg oral tablet 1 tablet = 50 mg, By Mouth, 3 times a day, dose change, # 90 tablet, 1 Refills, Maintenance, 09/10/19 10:37:00 EDT, Tablet, [facility]/pharmacy #[id number], 183, cm, 05/25/19 15:06:00 EST, Height Start Date: 09/10/19 Stop Date: 11/09/19 Status: Ordered isosorbide mononitrate 60 mg oral tablet, extended release 60 mg, 1, tablet, By Mouth, Daily in AM, # 30 tablet, Refills 5, Tot. Refills 5, Soft Stop, 05/03/20 17:20:00 EST, Route to Pharmacy Electronically, [facility]/pharmacy #[id number], 183, cm, 02/05/20 12:53:00 EDT, Height Start Date: 05/03/20 Stop Date: 10/30/20 Status: Ordered NIFEdipine 30 mg oral tablet, extended release 30 mg, 1, tablet, By Mouth, Daily, Bubble Pack and Delivery, # 30 tablet, Refills 3, Tot. Refills 3, Maintenance, 03/27/18 8:38:30 EST, Route to Pharmacy Electronically, [id number], [facility]/pharmacy #[id number] Start Date: 03/27/18 Status: Ordered nitroglycerin 0.4 mg sublingual tablet 1 tablet = 0.4 mg, Sublingual, Every 5 minutes, PRN Chest Pain, # 25 tablet, 3 Refills, Maintenance, 08/24/19 15:40:00 EDT, [facility]/pharmacy #[id number], 183, cm, 05/25/19 15:06:00 EST, Height, 88.3, kg, 08/31/17 3:30:00 EDT, Dry Weight Start Date: 08/24/19 Stop Date: 12/22/19 Status: Ordered oxyCODONE 30 mg oral tablet 2 tablet = 60 mg, By Mouth, Every 3 hours, DIGITAL DIRECTOR checked, # 224 tablet, 0 Refills, Acute 05/15/21 15:53:00 EST, 07/10/20 20:59:00 EST, [facility]/pharmacy #[id number], may partial fill upon request;, 07/11/20, 183,cm, 05/12/20 9:35:00 EST, Height Start Date: 07/10/20 Stop Date: 05/15/21 Status: Ordered oxyCODONE 30 mg oral tablet 2 tablet = 60 mg, By Mouth, Every 3 hours, DIGITAL DIRECTOR checked, # 224 tablet, 0 Refills, Acute 05/15/21 13:11:00 EST, 08/21/20 17:44:00 EDT, [facility]/pharmacy #[id number], may partial fill upon request;, 08/22/20, 183,cm, 08/05/20 8:57:00 EDT, Height Start Date: 08/21/20 Stop Date: 05/15/21 Status: Ordered pantoprazole 40 mg oral delayed release tablet See Instructions, # 28 tablet, Refills 2 Tot. Refills 2, TAKE 1 TABLET BY MOUTH EVERY DAY, [facility]/pharmacy #[id number] Start Date: 02/26/19 Status: Ordered pantoprazole [...] Refills, Maintenance, 07/02/20 8:26:00 EST, ER Tablet, [facility]/pharmacy #[id number], 183, cm, 05/12/20 9:35:00 EST, Height Start Date: 07/02/20 Status: Ordered sertraline 100 mg oral tablet 1 tablet = 100 mg, By Mouth, Daily, # 90 tablet, 1 Refills, Maintenance, 08/01/20 11:10:00 EDT, Tablet, [facility]/pharmacy #[id number], Bubble pack and delivery, 183, cm, 05/12/20 9:35:00 EST, Height Start Date: 08/01/20 Stop Date: 01/28/21 Status: Ordered spironolactone 25 mg oral tablet 25 mg, 1, tablet, By Mouth, Daily, # 30 tablet, Refills 2, Tot. Refills 2, Soft Stop, 07/02/20 8:26:00 EST, Route to Pharmacy Electronically, [facility]/pharmacy #[id number], 183, cm, 05/12/20 9:35:00 EST, Height Start Date: 07/02/20 Stop Date: 09/30/20 Status: Ordered sucralfate 1 gm oral tablet 1 Gm, 1, tablet, By Mouth, 3 times a day before meals and bedtime, # 120 tablet, Refills 2, Tot. Refills 2, Maintenance, 08/01/20 9:52:00 EDT, Route to Pharmacy Electronically, [facility]/pharmacy #[id number], 183, cm, 05/12/20 9:35:00 EST, Height Start Date: 08/01/20 Status: Ordered Vitamin B-12 1000 mcg oral tablet 1,000 mcg, 1, tablet, By Mouth, Daily, # 30 tablet, Refills 2, Tot. Refills 2, Soft Stop, 07/02/20 8:26:00 EST, Route to Pharmacy Electronically, [facility]/pharmacy #[id number], 183, cm, 05/12/20 9:35:00 EST, Height [...] artery disease by Rolando Rubin M.D. at [facility]. 5In the past; states this has resolved Social History Social History Type Response Smoking Status Never smoker entered on: 08/24/16 Sex
--- OUTSIDE RECORDS SUMMARY | 2023-11-18 12:36 | XMS_ITS | Continuity of Care Document ---
Author Organization [facility] Adult Address [address] [place] [phone]- Care Team Providers Care Public Relations Studies Director Name Role Phone Radha ODONNELL, Hannah Primary Care Physician Encounter [facility] [place](s): 06/01/23 - 07/01/23 [facility] [address] [place] [phone]- Allergies, Adverse Reactions, Alerts Substance Reaction Severity [...] 06/30/23 12:58:00 EST, Route to Pharmacy Electronically, [facility]/pharmacy #[id number], 183, cm, 05/10/23 11:59:00 EST, Height, 71.3, kg, 08/08/21 0:23:00 EDT, Dry Weight Start Date: 06/30/23 Status: Ordered amLODIPine 5 mg oral tablet 1 tablet, By Mouth, Daily, # 84 tablet, 0 Refills, Maintenance, 06/30/23 12:58:00 EST, [facility]/pharmacy#[id number], 183, cm, 05/10/23 11:59:00 EST, Height, 71.3, kg, 08/08/21 0:23:00 EDT, Dry Weight Start Date: 06/30/23 Status: Ordered atorvastatin 40 mg oral tablet 1 tablet, By Mouth, Daily, # 90 tablet, 1 Refills, Maintenance, 07/01/23 15:53:00 EST, [facility]/pharmacy#[id number], 183, cm, 05/10/23 11:59:00 EST, Height, [...] tablet, 5 Refills, Maintenance, 04/21/23 18:36:00 EST, [facility]/pharmacy#[id number], 1 tablet By Mouth Daily,x28 days, 183, cm, 03/28/23 11:43:00 EST, Height, 71.3, kg, :23:00 EDT, Dry Weight Start Date: 04/21/23 Stop Date: 10/06/23 Status: Ordered carvedilol 12.5 mg oral tablet 1, tablet, By Mouth, 2 times a day, # 180 tablet, Refills 0, Tot. Refills 0, Maintenance, 07/01/23 15:49:00 EST, Route to Pharmacy Electronically, [facility]/pharmacy #[id number], 183, cm, 05/10/23 11:59:00 EST, Height, 71.3, kg, 08/08/21 0:23:00 EDT, Dry Weight Start Date: 07/01/23 Status: Ordered cholecalciferol 50,000 intl units oral capsule 1 capsule = 50,000 International_Units, By Mouth, Every week, # 13 capsule, 3 Refills, Maintenance,03/19/23 15:28:00 EDT, Capsule, [facility]/pharmacy #[id number], Partial fill upon patient request if the prescription is for a schedule II opioid drug., 183, cm, 0... Start Date: 03/19/23 Stop Date: 03/13/24 Status: Ordered cholecalciferol 50,000 intl units oral capsule 1 capsule = 50,000 International_Units, By Mouth, Every 7 days, # 13 capsule, 3 Refills, Maintenance, 03/20/23 8:29:00 EST, Capsule, [facility]/pharmacy #[id number], Partial fill upon patient request, 183, cm, 10/08/22 16:18:00 EDT, Height, 71.3, kg, 08/08/21 0:23... Start Date: 03/20/23 Stop Date: 03/14/24 Status: Ordered clopidogrel 75 mg oral tablet 1, tablet, By Mouth, Daily, # 28 tablet, Refills 5, Tot. Refills 5, Maintenance, 06/08/23 14:08:00 EST, Route to Pharmacy Electronically, [facility]/pharmacy #[id number], 183, cm, 05/10/23 11:59:00 EST, [...] a day, # 56 tablet, 6 Refills, [facility]ORE 777[facility], 183, cm, 08/12/21 14:20:00 EDT, Height, 71.3, kg, 08/08/21 0:23:00 EDT, Dry Weight Start Date: 09/26/21 Status: Ordered Eliquis 5 mg oral tablet See Instructions, TAKE 1 TABLET BY MOUTH TWICE A DAY, # 56 tablet, 6 Refills, Maintenance, 06/07/2409:23:00 EST, [facility]/pharmacy #[id number], 183, cm, 05/10/23 11:59:00 EST, Height, 71.3, kg, 08/08/21 0:23:00 EDT, Dry Weight Start Date: 06/07/23 Status: Ordered furosemide 40 mg oral tablet 1, tablet, By Mouth, 2 times a day, # 168 tablet, Refills 1, Tot. Refills 1, Maintenance, 06/30/23 12:20:00 EST, Route to Pharmacy Electronically, [facility]/pharmacy #[id number], 183, cm, 05/10/23 11:59:00 EST, [...] tablet, 0 Refills, Maintenance, 07/01/23 15:48:00 EST, [facility]/pharmacy #[id number], 183, cm, 05/10/23 11:59:00 EST, Height, 71.3, kg, 08/08/21 0:23:00 EDT, Dry Weight Start Date: 07/01/23 Status: Ordered isosorbide mononitrate 60 mg oral tablet, extended release 1 tablet, By Mouth, Daily in AM, # 28 tablet, 5 Refills, Maintenance, 04/21/23 18:37:00 EST, [facility]/pharmacy #[id number], 183, cm, 03/28/23 11:43:00 EST, Height, 71.3, kg, 08/08/21 0:23:00 EDT, Dry Weight Start Date: 04/21/23 Stop Date: 10/06/23 Status: Ordered Mylanta Maximum Strength oral suspension 5 mL, By Mouth, 4 times a day, PRN for control of stomach acid, # 200 mL, 1 Refills, Maintenance, 08/12/21 13:46:00 EDT, Suspension, [facility]/pharmacy #[id number], Partial fill upon patient request if the prescription is for a schedule II opioid drug., 5 mL By M... Start Date: 08/12/21 Status: Ordered Narcan 4 mg/0.1 mL nasal spray = 4 mg, Nares, Both, Once, may repeat every 2 to 3 minutes until patient responds, # 1 each, 0 Refills, Soft Stop, 05/14/23 10:41:00 EST, [facility]/pharmacy #[id number], Partial fill upon patient request if the prescription is for a schedule II opioid drug., 183,... Start Date: 05/14/23 Status: Ordered nitroglycerin 0.4 mg sublingual tablet 1 tablet = 0.4 mg, Sublingual, Every 5 minutes, PRN Chest Pain, # 25 tablet, 3 Refills, Maintenance, 08/24/19 15:40:00 EDT, [facility]/pharmacy #[id number], 183, cm, 05/25/19 15:06:00 EST, Height, 88.3, kg, 08/31/17 3:30:00 EDT, Dry Weight Start Date: 08/24/19 Stop Date: 12/22/19 Status: Ordered oxyCODONE 30 mg oral tablet 1-2 tablet, By Mouth, Every 3 hours, # 84 tablet, 0 Refills, Maintenance, 06/22/23 13:41:00 EST, [facility]/pharmacy #[id number], may partial fill upon request;, [...] Start Date: 06/24/23 Status: Ordered Potassium Chloride (Umj-Nxdl-Vhr 10) 10 mEq oral tablet, extended release See Instructions, TAKE 2 TABLETS BY MOUTH EVERY MORNING AND TAKE 1 TABLET EVERY EVENING, # 270 tablet, 1 Refills, Maintenance, 07/01/23 15:52:00 EST, [facility]/pharmacy #[id number], 183, cm, 05/10/23 11:59:00 EST, Height, 71.3, kg, 08/08/21 0:23:00 EDT, Dry Weight Start Date: 07/01/23 Status: Ordered sertraline 100 mg oral tablet 1 tablet, By Mouth, Daily, # 84 tablet, 0 Refills, Maintenance, 06/30/23 12:22:00 EST, [facility]/pharmacy#[id number], 183, cm, 05/10/23 11:59:00 EST, Height, 71.3, kg, 08/08/21 0:23:00 EDT, Dry Weight Start Date: 06/30/23 Stop Date: 09/22/23 Status: Ordered sertraline 100 mg oral tablet See Instructions, TAKE 1 TABLET BY MOUTH EVERY DAY, # 28 tablet, 5 Refills, Maintenance, 11/30/22 15:39:00 EDT, [facility], 183, cm, 10/08/22 16:18:00 EDT, Height, 71.3, kg, 08/08/21 0:23:00 EDT, Dry Weight Start Date: 11/30/22 Status: Ordered spironolactone 25 mg oral tablet 1, tablet, By Mouth, Daily, # 28 tablet, Refills 4, Maintenance, 06/24/23 7:44:00 EST, Route to Pharmacy Electronically, [facility], 183, cm, 05/10/23 11:59:00 EST, Height, 71.3, kg, 08/08/21 0:23:00 EDT, Dry Weight Start Date: 06/24/23 Status: Ordered sucralfate 1 gm oral tablet 1, tablet, By Mouth, 3 times a day before meals, AND BEDTIME., # 112 tablet, Refills 5, Maintenance, 02/04/23 16:32:00 EDT, Route to Pharmacy Electronically, [facility], 183, cm, 10/08/22 16:18:00 EDT, Height, 71.3, kg, 08/08/21 0:23:00 EDT, Dry... Start Date: 02/04/23 Status: Ordered Vitamin B-12 1000 mcg oral tablet 1, tablet, By Mouth, Daily, # 28 tablet, Refills 11, Tot. Refills 11, Maintenance, 04/21/23 18:37:00 EST, Route to Pharmacy Electronically, [facility]/pharmacy #[id number], 183, cm, 03/28/23 11:43:00 EST, [...] artery disease by Rolando Rubin M.D. at [facility]. 4In the past; states this has resolved Social History Social History Type Response Smoking Status Never smoker entered on: 08/24/16 Sex Patient Care team information Care Team Personnel Name: Irish Samuel RN Position: [facility] RN Member Role: Primary Care Nurse Name: Mireya Ramsey Position: [facility] RN Supv Member Role: Primary Care Nurse Name: Rhea Betancur RN Position: [facility] RN Member Role: Primary Care Nurse Name: Hugo Ayala RN Position: [facility] RN Member Role: Primary Care Nurse Name: Lorna Faust RN Position: [facility] RN Member Role: Primary Care Nurse Name: David Gonzalez MD Position: [facility] Renal MD Member Role: Lifetime Consulting Physician Address: Address: [address] [place] [address] [address] [facility] [place] [address]- [place] Name: Hannah Garcia NP Position: [facility] PCO Associate Professional Member Role: PCP Address: Address: [address] [facility], [address] [place] [address]- [place] Name: Eduin Arias MD Position: [facility] Renal MD Member Role: Lifetime Consulting Physician Address: Address: [address] [place] [address], [address] [place] [id number]- [place] Name: Ana Herrera RN Position: [facility] AMB Nurse Member Role: Primary Care Nurse Name: Carlos Montez RN Position: [facility] Outreach Member Role: Primary Care Nurse Name: Cadence Quach RN Position: [facility] OB RN Member Role: Primary Care Nurse Name: Maggy Tsang RN Position: [facility] RN Member Role: Primary Care Nurse Name: Keyla Keys RN Position: [facility] SN RN Member Role: Primary Care Nurse Name: Марина Guevara RN Position: [facility] SN RN Member Role: Primary Care Nurse Name: Lyn Helms RN Position: [facility] RN Member Role: Primary Care Nurse Name: Tatum Biswas RN Position: [facility] RN Member Role: Primary Care Nurse Name: Hugo Bateman RN Position: [facility] RN Member Role: Primary Care Nurse Name: Petros Levy RN Position: [facility] RN Member Role: Primary Care Nurse Name: Izabella Braun RN Position: [facility] RN Member Role: Primary Care Nurse Name: Lyndsay King RN Position: [facility] RN Member Role: Primary Care Nurse Name: Hafsa Goyal RN Position: [facility] RN Member Role: Primary Care Nurse Name: Rosalio Jack RN Position: [facility] RN Member Role: Primary Care Nurse Name: Carmela Houser RN Position: [facility] SN RN Member Role: Primary Care Nurse Name: Michael Dickson RN Position: [facility] RN Member Role: Primary Care Nurse Name: Jessica Lema RN Position: [facility] RN Member Role: Primary Care Nurse Name: Phu Flynn MD Position: [facility] Renal MD Member Role: Lifetime Consulting Physician Address: Address: [address] [facility] [place], [place] [address] Name: Yesica Serna RN Position: S OB RN Member Role: Primary Care Nurse Name: Jesusita Lou RN Position: S OB RN Member Role: Primary Care Nurse Name: Husam Elizalde RN Position: S RN Member Role: Primary Care Nurse Name: Marshall Byrd RN Position: S RN Member Role: Primary Care Nurse Care Team Related Persons Name: DUTCH MAR Address: [place] [address] Name: ALL AYERS Address: [address] [place], [place] Name: ALL MANZANARES Address: [address] [place] [address] Name: CHRISTEN GRIMALDO Address: [address] [place] [address]
--- OUTSIDE RECORDS SUMMARY | 2023-11-18 12:36 | XMS_ITS | Continuity of Care Document ---
Author Organization [facility] Adult Address [address] [place] [address]- Care Team Providers Care Ged Preparation Teacher Name Role Phone Radha ODONNELL, Hannah Primary Care Physician Encounter [facility] [place] Date(s): 10/20/21 - 11/19/21 [facility] Adult [address] [place] [phone]- Attending Physician: Caroline Campbell Admitting Physician: AdmtrCaroline Referring Physician: Admtr, Caroline Allergies, Adverse Reactions, Alerts Substance Reaction Severity [...] tablet, Refills 2, Route to Pharmacy Electronically, [facility], 183, cm, 08/12/21 14:20:00 EDT, Height, 71.3, kg, 08/08/21 0:23:00 EDT, Dry Weight Start Date: 09/25/21 Status: Ordered amLODIPine 5 mg oral tablet 1 tablet, By Mouth, Daily, # 28 tablet, 4 Refills, [facility], 183, cm, 10/20/21 10:31:00 EDT,Height, 71.3, kg, 08/08/21 0:23:00 EDT, Dry Weight Start Date: 10/27/21 Status: Ordered atorvastatin 40 mg oral tablet 1 tablet, By Mouth, Daily, # 28 tablet, 5 Refills, [facility], 183, cm, 05/04/21 3:09:00 EST, Height, 81.7, kg, 04/16/21 3:06:00 EST, Dry Weight Start Date: 07/01/21 Status: Ordered buPROPion 150 mg/24 hours (XL) oral tablet, extended release 1 tablet, By Mouth, Every 24 hours, # 28 tablet, 2 Refills, [facility], 28, TAKE 1 TABLET BY MOUTH EVERY 24 HOURS, 183, cm, 08/12/21 14:20:00 EDT, Height, 71.3, kg, 08/08/21 0:23:00 EDT, Dry Weight Start Date: 09/25/21 Status: Ordered carvedilol 12.5 mg oral tablet 1, tablet, By Mouth, 2 times a day, # 56 tablet, Refills 5, Route to Pharmacy Electronically, [facility], 183, cm, 05/04/21 3:09:00 EST, Height, 81.7, kg, 04/16/21 3:06:00 EST, Dry Weight Start Date: 07/07/21 Status: Ordered clopidogrel 75 mg oral tablet 1, tablet, By Mouth, Daily, # 28 tablet, Refills 5, Route to Pharmacy Electronically, [facility], 183, cm, 05/04/21 3:09:00 EST, Height, 81.7, kg, 04/16/21 3:06:00 EST, Dry Weight Start Date: 07/02/21 Status: Ordered Eliquis 5 mg oral tablet 1 tablet, By Mouth, 2 times a day, # 56 tablet, 6 Refills, [facility], 183, cm, 08/12/21 14:20:00 EDT, Height, 71.3, kg, 08/08/21 0:23:00 EDT, Dry Weight Start Date: 09/26/21 Status: Ordered furosemide 40 mg oral tablet 1, tablet, By Mouth, 2 times a day, # 56 tablet, Refills 2, Route to Pharmacy Electronically, [facility], 183, cm, 08/12/21 14:20:00 EDT, Height, 71.3, kg, 08/08/21 0:23:00 EDT, Dry Weight Start Date: 09/25/21 Status: Ordered hydrALAZINE 50 mg oral tablet 1 tablet = 50 mg, By Mouth, 3 times a day, dose change, # 90 tablet, 1 Refills, Maintenance, 09/10/19 10:37:00 EDT, Tablet, [id number], 183, cm, 05/25/19 15:06:00 EST, Height Start Date: 09/10/19 Stop Date: 11/09/19 Status: Ordered isosorbide mononitrate 60 mg oral tablet, extended release 1 tablet, By Mouth, Daily in AM, # 28 tablet, 4 Refills, [facility] 68995, 183, cm, 10/20/21 10:31:00 EDT, Height, 71.3, [...] 60 mg, By Mouth, Every 3 hours, GUIDE DOG INSTRUCTOR checked. 11/10/21, # 224 tablet, 0 Refills, Acute 05/15/22 9:58:00 EST, 11/09/21 12:37:00 EDT, [id number], may partial fill upon request;, 183, cm, 10/20/21 10:31:00 EDT, Height, 71.3, kg, ... Start Date: 11/09/21 Stop Date: 05/15/22 Status: Ordered pantoprazole 40 mg oral delayed release tablet 1 tablet, By Mouth, Daily, # 28 tablet, 2 Refills, 08/12/21 13:46:00 EDT, 183, cm, 08/12/21 12:05:00 EDT, Height, 71.3, kg, 08/08/21 0:23:00 EDT, Dry Weight Start Date: 08/12/21 Status: Ordered Potassium Chloride (Gim-Addg-Ytu 10) 10 mEq oral tablet, extended release See Instructions, TAKE 2 TABLETS BY MOUTH EVERY MORNING AND TAKE 1 TABLET EVERY EVENING, # 84 tablet, 2 Refills, [facility] 39[facility], 183, cm, 08/12/21 14:20:00 EDT, Height, 71.3, kg, 08/08/21 0:23:00 EDT, Dry Weight Start Date: 09/03/21 Status: Ordered sertraline 100 mg oral tablet 1 tablet, By Mouth, Daily, # 28 tablet, 5 Refills, [facility], 183, cm, 05/04/21 3:09:00 EST, Height, 81.7, [...] tablet, Refills 5, Route to Pharmacy Electronically, [facility], 183, cm, 08/12/21 14:20:00 EDT, Height, 71.3, [...] artery disease by Rolando Rubin M.D. at [facility]. 3In the past; states this has resolved Social History Social History Type Response Smoking Status Never smoker entered on: 08/24/16 Sex
--- OUTSIDE RECORDS SUMMARY | 2023-11-18 12:36 | XMS_ITS | Continuity of Care Document ---
Author Organization [facility] Adult Address [address] [place] [phone]- Care Team Providers Care Tree Topper Name Role Phone Radha ODONNELL, Hannah Primary Care Physician Encounter [facility] [place] Date(s): 08/02/23 - 09/01/[address] [facility] Adult [address] [place] [id number]- Allergies, Adverse Reactions, Alerts Substance Reaction Severity [...] 06/30/23 12:58:00 EST, Route to Pharmacy Electronically, [facility]/pharmacy #[id number], 183, cm, 05/10/23 11:59:00 EST, Height, 71.3, kg, 08/08/21 0:23:00 EDT, Dry Weight Start Date: 06/30/23 Status: Ordered amLODIPine 5 mg oral tablet 1 tablet, By Mouth, Daily, # 84 tablet, 0 Refills, Maintenance, 06/30/23 12:58:00 EST, [facility]/pharmacy#[id number], 183, cm, 05/10/23 11:59:00 EST, Height, 71.3, kg, 08/08/21 0:23:00 EDT, Dry Weight Start Date: 06/30/23 Status: Ordered atorvastatin 40 mg oral tablet 1 tablet, By Mouth, Daily, # 90 tablet, 1 Refills, Maintenance, 07/01/23 15:53:00 EST, [facility]/pharmacy#[id number], 183, cm, 05/10/23 11:59:00 EST, Height, [...] tablet, 5 Refills, Maintenance, 04/21/23 18:36:00 EST, [facility]/pharmacy#[id number], 1 tablet By Mouth Daily,x28 days, 183, cm, 03/28/23 11:43:00 EST, Height, 71.3, kg, :23:00 EDT, Dry Weight Start Date: 04/21/23 Stop Date: 10/06/23 Status: Ordered carvedilol 12.5 mg oral tablet 1, tablet, By Mouth, 2 times a day, # 180 tablet, Refills 0, Tot. Refills 0, Maintenance, 07/01/23 15:49:00 EST, Route to Pharmacy Electronically, [facility]/pharmacy #[id number], 183, cm, 05/10/23 11:59:00 EST, Height, 71.3, kg, 08/08/21 0:23:00 EDT, Dry Weight Start Date: 07/01/23 Status: Ordered cholecalciferol 50,000 intl units oral capsule 1 capsule = 50,000 International_Units, By Mouth, Every week, # 13 capsule, 3 Refills, Maintenance,03/19/23 15:28:00 EDT, Capsule, [facility]/pharmacy #[id number], Partial fill upon patient request if the prescription is for a schedule II opioid drug., 183, cm, 0... Start Date: 03/19/23 Stop Date: 03/13/24 Status: Ordered cholecalciferol 50,000 intl units oral capsule 1 capsule = 50,000 International_Units, By Mouth, Every 7 days, # 13 capsule, 3 Refills, Maintenance, 03/20/23 8:29:00 EST, Capsule, [facility]/pharmacy #[id number], Partial fill upon patient request, 183, cm, 10/08/22 16:18:00 EDT, Height, 71.3, kg, 08/08/21 0:23... Start Date: 03/20/23 Stop Date: 03/14/24 Status: Ordered cloNIDine 0.1 mg oral tablet See Instructions, TAKE 1 TABLET BY MOUTH 3 TIMES A DAY, # 84 tablet, Refills 0, Maintenance, 08/10/23 16:24:00 EDT, Instructions Replace Required Details, Route to Pharmacy Electronically, [facility] STORE [id number], 183, cm, 05/10/23 11:59:00 EST, Height Start Date: 08/10/23 Status: Ordered clopidogrel 75 mg oral tablet 1, tablet, By Mouth, Daily, # 28 tablet, Refills 5, Tot. Refills 5, Maintenance, 06/08/23 14:08:00 EST, Route to Pharmacy Electronically, [facility]/pharmacy #[id number], 183, cm, 05/10/23 11:59:00 EST, [...] a day, # 56 tablet, 6 Refills, [facility] STORE [id number], 183, cm, 08/12/21 14:20:00 EDT, Height, 71.3, kg, 08/08/21 0:23:00 EDT, Dry Weight Start Date: 09/26/21 Status: Ordered Eliquis 5 mg oral tablet See Instructions, TAKE 1 TABLET BY MOUTH TWICE A DAY, # 56 tablet, 6 Refills, Maintenance, 06/07/2409:23:00 EST, [facility]/pharmacy #[id number], 183, cm, 05/10/23 11:59:00 EST, Height, 71.3, kg, 08/08/21 0:23:00 EDT, Dry Weight Start Date: 06/07/23 Status: Ordered furosemide 40 mg oral tablet 1, tablet, By Mouth, 2 times a day, # 168 tablet, Refills 1, Tot. Refills 1, Maintenance, 06/30/23 12:20:00 EST, Route to Pharmacy Electronically, [facility]/pharmacy #[id number], 183, cm, 05/10/23 11:59:00 EST, [...] tablet, 0 Refills, Maintenance, 07/01/23 15:48:00 EST, [facility]/pharmacy #[id number], 183, cm, 05/10/23 11:59:00 EST, Height, 71.3, kg, 08/08/21 0:23:00 EDT, Dry Weight Start Date: 07/01/23 Status: Ordered isosorbide mononitrate 60 mg oral tablet, extended release 1 tablet, By Mouth, Daily in AM, # 28 tablet, 5 Refills, Maintenance, 04/21/23 18:37:00 EST, [facility]/pharmacy #[id number], 183, cm, 03/28/23 11:43:00 EST, Height, 71.3, kg, 08/08/21 0:23:00 EDT, Dry Weight Start Date: 04/21/23 Stop Date: 10/06/23 Status: Ordered Mylanta Maximum Strength oral suspension 5 mL, By Mouth, 4 times a day, PRN for control of stomach acid, # 200 mL, 1 Refills, Maintenance, 08/12/21 13:46:00 EDT, Suspension, [facility]/pharmacy #[id number], Partial fill upon patient request if the prescription is for a schedule II opioid drug., 5 mL By M... Start Date: 08/12/21 Status: Ordered Narcan 4 mg/0.1 mL nasal spray = 4 mg, Nares, Both, Once, may repeat every 2 to 3 minutes until patient responds, # 1 each, 0 Refills, Soft Stop, 05/14/23 10:41:00 EST, [facility]/pharmacy #[id number], Partial fill upon patient request if the prescription is for a schedule II opioid drug., 183,... Start Date: 05/14/23 Status: Ordered nitroglycerin 0.4 mg sublingual tablet 1 tablet = 0.4 mg, Sublingual, Every 5 minutes, PRN Chest Pain, # 25 tablet, 3 Refills, Maintenance, 08/24/19 15:40:00 EDT, [facility]/pharmacy #[id number], 183, cm, 05/25/19 15:06:00 EST, Height, 88.3, kg, 08/31/17 3:30:00 EDT, Dry Weight Start Date: 08/24/19 Stop Date: 12/22/19 Status: Ordered oxyCODONE 15 mg oral tablet 1 tablet = 15 mg, By Mouth, Every 4 hours, PRN as needed for pain, # 90 tablet, 0 Refills, Maintenance, 08/24/23 7:27:00 EDT, Tablet, [facility]/pharmacy #[id number], Partial fill upon patient request [...] Start Date: 06/24/23 Status: Ordered Potassium Chloride (Lfg-Hoiv-Vtk 10) 10 mEq oral tablet, extended release See Instructions, TAKE 2 TABLETS BY MOUTH EVERY MORNING AND TAKE 1 TABLET EVERY EVENING, # 270 tablet, 1 Refills, Maintenance, 07/01/23 15:52:00 EST, [facility]/pharmacy #[id number], 183, cm, 05/10/23 11:59:00 EST, Height, 71.3, kg, 08/08/21 0:23:00 EDT, Dry Weight Start Date: 07/01/23 Status: Ordered sertraline 100 mg oral tablet 1 tablet, By Mouth, Daily, # 84 tablet, 0 Refills, Maintenance, 09/01/23 11:58:00 EDT, [facility]/pharmacy#[id number], 183, cm, 05/10/23 11:59:00 EST, Height Start Date: 09/01/23 Stop Date: 11/24/23 Status: Ordered sertraline 100 mg oral tablet See Instructions, TAKE 1 TABLET BY MOUTH EVERY DAY, # 28 tablet, 5 Refills, Maintenance, 11/30/22 15:39:00 EDT, [id number], 183, cm, 10/08/22 16:18:00 EDT, Height, 71.3, kg, 08/08/21 0:23:00 EDT, Dry Weight Start Date: 11/30/22 Status: Ordered spironolactone 25 mg oral tablet 1, tablet, By Mouth, Daily, # 28 tablet, Refills 4, Maintenance, 06/24/23 7:44:00 EST, Route to Pharmacy Electronically, [id number], 183, cm, 05/10/23 11:59:00 EST, Height, 71.3, kg, 08/08/21 0:23:00 EDT, Dry Weight Start Date: 06/24/23 Status: Ordered sucralfate 1 gm oral tablet 1, tablet, By Mouth, 3 times a day before meals, AND BEDTIME., # 112 tablet, Refills 5, Maintenance, 02/04/23 16:32:00 EDT, Route to Pharmacy Electronically, [id number], 183, cm, 10/08/22 16:18:00 EDT, Height, 71.3, kg, 08/08/21 0:23:00 EDT, Dry... Start Date: 02/04/23 Status: Ordered Vitamin B-12 1000 mcg oral tablet 1, tablet, By Mouth, Daily, # 28 tablet, Refills 11, Tot. Refills 11, Maintenance, 04/21/23 18:37:00 EST, Route to Pharmacy Electronically, [facility]/pharmacy #[id number], 183, cm, 03/28/23 11:43:00 EST, [...] artery disease by Rolando Rubin M.D. at [facility]. 4In the past; states this has resolved Social History Social History Type Response Smoking Status Never smoker entered on: 08/24/16 Sex Patient Care team information Care Team Personnel Name: Irish Samuel RN Position: [facility] RN Member Role: Primary Care Nurse Name: Mireya Ramsey Position: [facility] Supv Member Role: Primary Care Nurse Name: Rhea Betancur RN Position: [facility] SN RN Member Role: Primary Care Nurse Name: Hugo Ayala RN Position: [facility] RN Member Role: Primary Care Nurse Name: Lorna Faust RN Position: [facility] RN Member Role: Primary Care Nurse Name: Wilner Feliciano RN Position: [facility] SN RN Member Role: Primary Care Nurse Name: David Gonzalez MD Position: [facility] Renal MD Member Role: Lifetime Consulting Physician Address: Address: [address] [place] [address] [address] [facility] [place] [address]- [place] Name: Hannah Garcia NP Position: [facility] PCO Associate Professional Member Role: PCP Address: Address: [address] [place] [address], [address] [facility] [place] [address]- [place] Name: Eduin Arias MD Position: [facility] Renal MD Member Role: Lifetime Consulting Physician Address: Address: [address] [place] [address], [address] [place] [id number]- [place] Name: Ana Herrera RN Position: [facility] AMB Nurse Member Role: Primary Care Nurse Name: Carlos Montez RN Position: [facility] Outreach Member Role: Primary Care Nurse Name: Cadence Quach RN Position: [facility] OB RN Member Role: Primary Care Nurse Name: Maggy Tsang RN Position: [facility] RN Member Role: Primary Care Nurse Name: Keyla Keys RN Position: [facility] SN RN Member Role: Primary Care Nurse Name: Марина Guevara RN Position: [facility] SN RN Member Role: Primary Care Nurse Name: Lyn Helms RN Position: [facility] RN Member Role: Primary Care Nurse Name: Tatum Biswas RN Position: [facility] RN Member Role: Primary Care Nurse Name: Hugo Bateman RN Position: [facility] RN Member Role: Primary Care Nurse Name: Petros Levy RN Position: [facility] RN Member Role: Primary Care Nurse Name: Charly Burns RN Position: [facility] RN Member Role: Primary Care Nurse Name: Izabella Braun RN Position: [facility] RN Member Role: Primary Care Nurse Name: Hafsa Goyal RN Position: [facility] RN Member Role: Primary Care Nurse Name: Rosalio Jack RN Position: [facility] RN Member Role: Primary Care Nurse Name: Carmela Houser RN Position: [facility] SN RN Member Role: Primary Care Nurse Name: Michael Dickson RN Position: [facility] RN Member Role: Primary Care Nurse Name: Jessica Lema RN Position: S RN Member Role: Primary Care Nurse Name: Phu Flynn MD Position: [facility] Renal MD Member Role: Lifetime Consulting Physician Address: Address: [address] [place] [address] [facility] [address] Name: Yesica Serna RN Position: [facility] OB RN Member Role: Primary Care Nurse Name: Jesusita Lou RN Position: [facility] OB RN Member Role: Primary Care Nurse Name: Husam Elizalde RN Position: [facility] RN Member Role: Primary Care Nurse Name: Marshall Byrd RN Position: [facility] RN Member Role: Primary Care Nurse Care Team Related Persons Name: DUTCH MAR Address: [place] [address] Name: ALL AYERS Address: [address] [place] [address] Name: ALL MANZANARES Address: [address] [place] [address] Name: CHRISTEN GRIMALDO Address: [address] [place] [address]
--- OUTSIDE RECORDS SUMMARY | 2023-11-18 12:36 | XMS_ITS | Continuity of Care Document ---
Author Organization [facility] Adult Address [address] [place] [address]- Care Team Providers Care Merchandising Intern Name Role Phone Radha ODONNELL, Hannah Primary Care Physician [place] [facility]s): 01/26[place]19 - 05/26/19 [facility] [address] [place] [id number]- [facility] Attending Physician: Not on Staff, Attending MD [...] TABLET BY MOUTH DAILY FOR 30 DAYS, [facility]/pharmacy #[id number] Start Date: 02/22/19 Status: Ordered amLODIPine 5 mg oral tablet See Instructions, # 28 tablet, Refills 2 Tot. Refills 2, TAKE 1 TABLET BY MOUTH EVERY DAY, [facility]/pharmacy #[id number] Start Date: 03/26/19 Status: Ordered atorvastatin 40 mg oral tablet See Instructions, # 28 tablet, Refills 5 Tot. Refills 5, TAKE 1 TABLET BY MOUTH EVERY DAY, [facility]/pharmacy #[id number] Start Date: 02/27/19 Status: Ordered buPROPion 150 mg/24 hours (XL) oral tablet, extended release 1 tablet = 150 mg, By Mouth, Every 24 hours, # 30 tablet, 5 Refills, Maintenance, 05/21/19 10:08:00EST, ER Tablet, [facility]/pharmacy #[id number], 1 tablet By Mouth Every 24 hours, 183, cm, 01/23/19 14:41:00 EDT, Height, 88.3, kg, 08/31/17 3:30:00 EDT, Dry Weight Start Date: 05/21/19 Status: Ordered buPROPion 150 mg/24 hours (XL) oral tablet, extended release 1 tablet = 150 mg, By Mouth, Every 24 hours, # 30 tablet, 5 Refills, Maintenance, 05/20/19 10:41:00EST, ER Tablet, [facility]/pharmacy #[id number], Bubble pack and delivery, 1 tablet By Mouth Every 24 hours, 183, cm, 01/23/19 14:41:00 EDT, Height, 88.3, kg, 08/31... Start Date: 05/20/19 Status: Ordered carvedilol 12.5 mg oral tablet 12.5 mg, 1, tablet, By Mouth, 2 times a day, # 60 tablet, Refills 5, Tot. Refills 5, Soft Stop, 03/25/19 11:48:47 EST, Route to Pharmacy Electronically, [id number], [facility]/pharmacy #[id number] Start Date: 03/25/19 Status: Ordered [facility] [...] 11/22/17 13:28:22 EDT, Route to Pharmacy Electronically, [id number], [facility]/pharmacy #[id number] Start Date: 11/22/17 Stop Date: 05/21/18 Status: Ordered Eliquis 5 mg oral tablet 1 tablet = 5 mg, By Mouth, 2 times a day, # 60 tablet, 5 Refills, Maintenance, 05/21/19 10:06:00 EST, Tablet, [facility]/pharmacy #[id number], 183, cm, 01/23/19 14:41:00 EDT, [...] Replace Required Details, Route to Pharmacy Electronically, [id number], [facility] Start Date: 04/24/19 Status: Ordered hydrALAZINE 25 mg oral tablet See Instructions, 1 TABLET BY MOUTH 2 TIMES A DAY, # 56 tablet, Refills 1, Tot. Refills 1, Soft Stop, 04/24/19 8:38:36 EST, Instructions Replace Required Details, Route to Pharmacy Electronically, [id number], [facility] Start Date: 04/24/19 Status: Ordered isosorbide mononitrate 60 mg oral tablet, extended release See Instructions, 1 TABLET BY MOUTH DAILY IN AM,, # 28 tablet, Refills 1, Tot. Refills 1, Soft Stop, 04/24/19 8:38:37 EST, Instructions Replace Required Details, Route to Pharmacy Electronically, [id number], [id number] Start Date: 04/24/19 Status: Ordered NIFEdipine 30 mg oral tablet, extended release 30 mg, 1, tablet, By Mouth, Daily, Bubble Pack and Delivery, # 30 tablet, Refills 3, Tot. Refills 3, Maintenance, 03/27/18 8:38:30 EST, Route to Pharmacy Electronically, [id number], [id number] Start Date: 03/27/18 Status: Ordered oxyCODONE 30 mg oral tablet 2 tablet = 60 mg, By Mouth, Every 3 hours, BAD CLOTH CHECKER checked, # 224 tablet, 0 Refills, Acute 05/15/20 13:31:00 EST, 05/15/19 16:04:00 EST, [facility]/pharmacy #[id number], may partial fill upon request, 05/17/19, 183, cm, 01/23/19 14:41:00 EDT, Height, 88.3, kg, ... Start Date: 05/15/19 Stop Date: 05/15/20 Status: Ordered pantoprazole 40 [...] 01/29/19 17:07:02 EDT, Route to Pharmacy Electronically, [id number], [facility]/pharmacy #[id number], Bubble pack and Delivery Start [...] [facility]/pharmacy #[id number] Start Date: 03/26/19 Status: Ordered spironolactone 25 mg oral tablet 25 mg, 1, tablet, By Mouth, Daily, # 30 tablet, Refills 1, Tot. Refills 1, Maintenance, 05/21/19 10:07:00 EST, Route to Pharmacy Electronically, [facility]/pharmacy #[id number], 183, cm, 01/23/19 14:41:00 EDT, Height, 88.3, kg, 08/31/17 3:30:00 EDT, Dry Weight Start Date: 05/21/19 Status: Ordered sucralfate 1 gm oral tablet 1 Gm, 1, tablet, By Mouth, 3 times a day before meals and bedtime, # 120 tablet, Refills 2, Tot. Refills 2, Soft Stop, 01/29/19 8:25:35 EDT, Route to Pharmacy Electronically, [id number], [facility]/pharmacy #[id number] Start Date: 01/29/19 Stop Date: 04/29/19 Status: Ordered Vitamin B-12 1000 mcg oral tablet See Instructions, # 28 tablet, Refills 1 Tot. Refills 1, TAKE 1 TABLET BY MOUTH EVERY DAY, [facility]/pharmacy #[id number] Start Date: 03/26/19 Status: Ordered Vitamin B12 1000 mcg oral tablet 1 tablet = 1,000 mcg, By Mouth, Daily, # 30 tablet, 2 Refills, Maintenance, 05/21/19 10:03:00 EST, Tablet, [facility]/pharmacy #[id number], 183, cm, 01/23/19 14:41:00 EDT, [...] artery disease by Rolando Rubin M.D. at [facility]. 5In the past; states this has resolved Social History Social History Type Response Smoking Status Never smoker entered on: 08/24/16 Sex
--- OUTSIDE RECORDS SUMMARY | 2023-11-18 12:36 | XMS_ITS | Continuity of Care Document ---
Author Organization [facility] Adult Address [address] [place] [address]- Care Team Providers Care Habilitative Interventionist Name Role Phone Radha ODONNELL, Hannah Primary Care Physician [place] [facility] [place]/23 [facility] [address] [place] [phone]- Allergies, Adverse Reactions, Alerts Substance Reaction Severity [...] 06/30/23 12:58:00 EST, Route to Pharmacy Electronically, [facility]/pharmacy #[id number], 183, cm, 05/10/23 11:59:00 EST, Height, 71.3, kg, 08/08/21 0:23:00 EDT, Dry Weight Start Date: 06/30/23 Status: Ordered amLODIPine 5 mg oral tablet 1 tablet, By Mouth, Daily, # 84 tablet, 0 Refills, Maintenance, 06/30/23 12:58:00 EST, [facility]/pharmacy#[id number], 183, cm, 05/10/23 11:59:00 EST, Height, 71.3, kg, 08/08/21 0:23:00 EDT, Dry Weight Start Date: 06/30/23 Status: Ordered atorvastatin 40 mg oral tablet 1 tablet, By Mouth, Daily, # 90 tablet, 1 Refills, Maintenance, 07/01/23 15:53:00 EST, [facility]/pharmacy#[id number], 183, cm, 05/10/23 11:59:00 EST, Height, [...] tablet, 5 Refills, Maintenance, 04/21/23 18:36:00 EST, [facility]/pharmacy#[id number], 1 tablet By Mouth Daily,x28 days, 183, cm, 03/28/23 11:43:00 EST, Height, 71.3, kg, :23:00 EDT, Dry Weight Start Date: 04/21/23 Stop Date: 10/06/23 Status: Ordered carvedilol 12.5 mg oral tablet 1, tablet, By Mouth, 2 times a day, # 180 tablet, Refills 0, Tot. Refills 0, Maintenance, 07/01/23 15:49:00 EST, Route to Pharmacy Electronically, [facility]/pharmacy #[id number], 183, cm, 05/10/23 11:59:00 EST, Height, 71.3, kg, 08/08/21 0:23:00 EDT, Dry Weight Start Date: 07/01/23 Status: Ordered cholecalciferol 50,000 intl units oral capsule 1 capsule = 50,000 International_Units, By Mouth, Every week, # 13 capsule, 3 Refills, Maintenance,03/19/23 15:28:00 EDT, Capsule, [facility]/pharmacy #[id number], Partial fill upon patient request if the prescription is for a schedule II opioid drug., 183, cm, 0... Start Date: 03/19/23 Stop Date: 03/13/24 Status: Ordered cholecalciferol 50,000 intl units oral capsule 1 capsule = 50,000 International_Units, By Mouth, Every 7 days, # 13 capsule, 3 Refills, Maintenance, 03/20/23 8:29:00 EST, Capsule, [facility]/pharmacy #[id number], Partial fill upon patient request, 183, cm, 10/08/22 16:18:00 EDT, Height, 71.3, kg, 08/08/21 0:23... Start Date: 03/20/23 Stop Date: 03/14/24 Status: Ordered cloNIDine 0.1 mg oral tablet 0.1 mg, 1, tablet, By Mouth, 3 times a day, for 30 days, # 90 tablet, Refills 0, Tot. Refills 0, Acute 09/01/23 15:38:00 EDT, 08/02/23 15:38:00 EDT, [id number] Partial [facility] upon patient request if the prescri... Start Date: 08/02/23 Stop Date: 09/01/23 Status: Ordered clopidogrel 75 mg oral tablet 1, tablet, By Mouth, Daily, # 28 tablet, Refills 5, Tot. Refills 5, Maintenance, 06/08/23 14:08:00 EST, [id number] 183, cm, 05/10/23 11:59:00 EST, Height, [...] a day, # 56 tablet, 6 Refills, [id number], 183, cm, 08/12/21 14:20:00 EDT, Height, 71.3, kg, 08/08/21 0:23:00 EDT, Dry Weight Start Date: 09/26/21 Status: Ordered Eliquis 5 mg oral tablet See Instructions, TAKE 1 TABLET BY MOUTH TWICE A DAY, # 56 tablet, 6 Refills, Maintenance, 06/07/2409:23:00 EST, [facility]/pharm[facility] #[id number], 183, cm, 05/10/23 11:59:00 EST, Height, 71.3, kg, 08/08/21 0:23:00 EDT, Dry Weight Start Date: 06/07/23 Status: Ordered furosemide 40 mg oral tablet 1, tablet, By Mouth, 2 times a day, # 168 tablet, Refills 1, Tot. Refills 1, Maintenance, 06/30/23 12:20:00 EST, Route to Pharmacy Electronically, [facility]/pharmacy #[id number], 183, cm, 05/10/23 11:59:00 EST, [...] tablet, 0 Refills, Maintenance, 07/01/23 15:48:00 EST, [facility]/pharmacy #[id number], 183, cm, 05/10/23 11:59:00 EST, [...] 0 Refills, Soft Stop, 05/14/23 10:41:00 EST, [facility]/pharmacy #[id number], Partial fill upon patient [...] Status: Ordered oxyCODONE 30 mg oral tablet See Instructions, 1 tablet By Mouth Every 5 hours 7 days total 5 a day fill 08/03/2023, # 35 tablet,0 Refills, Maintenance, 08/02/23 15:35:00 EDT, [facility]/pharmacy #[id number], may partial fill upon request; fill 07/13/2023, 183, cm, 05/10/23 11:59:00 EST, [facility]... Start Date: 08/02/23 Status: Ordered pantoprazole 40 mg oral delayed release tablet 1 tablet, By Mouth, Daily, # 28 tablet, 4 Refills, Maintenance, 06/24/23 7:44:00 EST, 183, cm, 05/10/23 11:59:00 EST, Height, 71.3, kg, 08/08/21 0:23:00 EDT, Dry Weight Start Date: 06/24/23 Status: Ordered Potassium Chloride ([id number] 10) 10 mEq oral tablet, extended release See Instructions, TAKE 2 TABLETS BY MOUTH EVERY MORNING AND TAKE 1 TABLET EVERY EVENING, # 270 tablet, 1 Refills, Maintenance, 07/01/23 15:52:00 EST, [facility]/pharm[facility] #[id number], 183, cm, 05/10/23 11:59:00 EST, Height, 71.3, kg, 08/08/21 0:23:00 EDT, Dry Weight Start Date: 07/01/23 Status: Ordered sertraline 100 mg oral tablet 1 tablet, By Mouth, Daily, # 84 tablet, 0 Refills, Maintenance, 06/30/23 12:22:00 EST, [facility]/pharm[facility]#[id number], 183, cm, 05/10/23 11:59:00 EST, Height, 71.3, kg, 08/08/21 0:23:00 EDT, Dry Weight Start Date: 06/30/23 Stop Date: 09/22/23 Status: Ordered sertraline 100 mg oral tablet See Instructions, TAKE 1 TABLET BY MOUTH EVERY DAY, # 28 tablet, 5 Refills, Maintenance, 11/30/22 15:39:00 EDT, [facility] [id number], 183, cm, 10/08/22 16:18:00 EDT, Height, 71.3, kg, 08/08/21 0:23:00 EDT, Dry Weight Start Date: 11/30/22 Status: Ordered spironolactone 25 mg oral tablet 1, tablet, By Mouth, Daily, # 28 tablet, Refills 4, Maintenance, 06/24/23 7:44:00 EST, Route to Pharmacy Electronically, [facility] [id number], 183, cm, 05/10/23 11:59:00 EST, Height, 71.3, kg, 08/08/21 0:23:00 EDT, Dry Weight Start Date: 06/24/23 Status: Ordered sucralfate 1 gm oral tablet 1, tablet, By Mouth, 3 times a day before meals, AND BEDTIME., # 112 tablet, Refills 5, Maintenance, 02/04/23 16:32:00 EDT, Route to Pharmacy Electronically, [id number], 183, cm, 10/08/22 16:18:00 EDT, Height, 71.3, [...] Rolando Rubin M.D. at [facility]. 4In the past; states this has resolved Social History Social History Type Response Smoking Status Never smoker entered on: 08/24/16 Sex Patient Care team information Care Team Personnel Name: Irish Samuel RN Position: [facility] RN Member Role: Primary Care Nurse Name: Mireya Ramsey Position: [facility] RN Supv Member Role: Primary Care Nurse Name: Rhea Betancur RN Position: [facility] SN RN Member Role: Primary Care Nurse Name: Hugo Ayala RN Position: [facility] RN Member Role: Primary Care Nurse Name: Lorna Faust RN Position: [facility] RN Member Role: Primary Care Nurse Name: Wilner Feliciano RN Position: [facility] SN RN Member Role: Primary Care Nurse Name: David Gonzalez MD Position: [facility] Renal MD Member Role: Lifetime Consulting Physician Address: Address: [address] [place] [address] [address] [facility] [address]- [place] Name: Hannah Gracia NP Position: [facility] PCO Associate Professional Member Role: PCP Address: Address: [address] [place] [address], [address] [place] [address]- [place] Name: Eduin Arias MD Position: [facility] Renal MD Member Role: Lifetime Consulting Physician Address: Address: [address] [place] [address], [address] [place] [address]- [place] Name: Ana Herrera RN Position: [facility] AMB Nurse Member Role: Primary Care Nurse Name: Carlos Montez RN Position: [facility] Outreach Member Role: Primary Care Nurse Name: Cadence Quach RN Position: [facility] OB RN Member Role: Primary Care Nurse Name: Maggy Tsang RN Position: [facility] RN Member Role: Primary Care Nurse Name: Keyla Keys RN Position: [facility] SN RN Member Role: Primary Care Nurse Name: Марина Guevara RN Position: [facility] SN RN Member Role: Primary Care Nurse Name: Lyn Helms RN Position: [facility] RN Member Role: Primary Care Nurse Name: Tatum Biswas RN Position: [facility] RN Member Role: Primary Care Nurse Name: Hugo Bateman RN Position: [facility] RN Member Role: Primary Care Nurse Name: Petros Levy RN Position: [facility] RN Member Role: Primary Care Nurse Name: Izabella Braun RN Position: [facility] RN Member Role: Primary Care Nurse Name: Hafsa Goyal RN Position: [facility] RN Member Role: Primary Care Nurse Name: Rosalio Jack RN Position: [facility] RN Member Role: Primary Care Nurse Name: Carmela Houser RN Position: [facility] SN RN Member Role: Primary Care Nurse Name: Michael Dickson RN Position: [facility] RN Member Role: Primary Care Nurse Name: Jessica Lema RN Position: [facility] RN Member Role: Primary Care Nurse Name: Phu Flynn MD Position: [facility] Renal MD Member Role: Lifetime Consulting Physician Address: Address: [address] [place] [address] [facility] [address] Name: Yesica Serna RN Position: [facility] OB RN Member Role: Primary Care Nurse Name: Jesusita Lou RN Position: [facility] OB RN Member Role: Primary Care Nurse Name: Husam Elizalde RN Position: [facility] RN Member Role: Primary Care Nurse Name: [place] Byrd RN Position: [facility] RN Member Role: Primary Care Nurse Care Team Related Persons Name: MELLODUTCH HURTADO Address: [place] [address] Name: ALL AYERS Address: [address], [place] Name: ALL MANZANARES Address: [address] [place] [address] Name: CHRISTEN GRIMALDO Address: [address] [place] [address]
--- OUTSIDE RECORDS SUMMARY | 2023-11-18 12:36 | XMS_ITS | Continuity of Care Document ---
Author Organization [facility] Adult Address [address] [place] [address]- Care Team Providers Care Spike Machine Operator Name Role Phone Radha ODONNELL, Hannah Primary Care Physician [place] [facility] [place] [facility] Adult [address] [place] [id number]- Allergies, Adverse Reactions, Alerts Substance Reaction Severity [...] 01/09/23 7:22:00 EDT, Route to Pharmacy Electronically, [id number], 183, cm, 10/08/22 16:18:00 EDT, Height, 71.3, kg, 08/08/21 0:23:00 EDT, Dry Weight Start Date: 01/09/23 Status: Ordered amLODIPine 5 mg oral tablet 1 tablet, By Mouth, Daily, # 28 tablet, 5 Refills, Maintenance, 11/25/22 16:21:00 EDT, [facility] 655[facility], 183, cm, 10/08/22 16:18:00 EDT, Height, 71.3, kg, 08/08/21 0:23:00 EDT, Dry Weight Start Date: 11/25/22 Status: Ordered atorvastatin 40 mg oral tablet 1 tablet, By Mouth, Daily, # 28 tablet, 2 Refills, Maintenance, 01/09/23 7:23:00 EDT, [facility], 183, cm, 10/08/22 16:18:00 EDT, Height, 71.3, kg, 08/08/21 0:23:00 EDT, Dry Weight Start Date: 01/09/23 Status: Ordered buPROPion 150 mg/24 hours (XL) oral tablet, extended release 1 tablet, By Mouth, Daily, # 28 tablet, 5 Refills, Maintenance, 04/21/23 18:36:00 EST, [facility]/pharmacy#[id number], 1 tablet By Mouth Daily,x28 days, 183, cm, 03/28/23 11:43:00 EST, Height, 71.3, kg, :23:00 EDT, Dry Weight Start Date: 04/21/23 Stop Date: 10/06/23 Status: Ordered carvedilol 12.5 mg oral tablet 1, tablet, By Mouth, 2 times a day, # 56 tablet, Refills 5, Maintenance, 11/25/22 16:22:00 EDT, Route to Pharmacy Electronically, [facility], 183, cm, 10/08/22 16:18:00 EDT, Height, 71.3, kg, 08/08/21 0:23:00 EDT, Dry Weight Start Date: 11/25/22 Status: Ordered cholecalciferol 50,000 intl units oral capsule 1 capsule = 50,000 International_Units, By Mouth, Every week, # 13 capsule, 3 Refills, Maintenance,03/19/23 15:28:00 EDT, Capsule, [facility]/pharmacy #[id number], Partial fill upon patient request if [...] EDT, Route to Pharmacy Electronically, [facility], 183, cm, 03/16/22 8:31:00 EDT, Height, 71.3, [...] 6 Refills, Maintenance, 05/14/2216:30:00 EST, [facility], 183, cm, 03/16/22 8:31:00 EDT, Height, 71.3, kg, 08/08/21 0:23:00 EDT, Dry Weight Start Date: 05/14/22 Status: Ordered Eliquis 5 mg oral tablet 1 tablet, By Mouth, 2 times a day, # 56 tablet, 6 Refills, [facility], 183, cm, 08/12/21 14:20:00 EDT, Height, 71.3, kg, 08/08/21 0:23:00 EDT, Dry Weight Start Date: 09/26/21 Status: Ordered Eliquis 5 mg oral tablet See Instructions, TAKE 1 TABLET BY MOUTH TWICE A DAY, # 56 tablet, 6 Refills, Maintenance, 11/30/2314:39:00 EDT, [facility], 183, cm, 10/08/22 16:18:00 EDT, Height, 71.3, kg, 08/08/21 0:23:00 EDT, Dry Weight Start Date: 11/30/22 Status: Ordered furosemide 40 mg oral tablet 1, tablet, By Mouth, 2 times a day, # 56 tablet, Refills 2, Tot. Refills 2, Maintenance, 04/21/23 18:37:00 EST, Route to Pharmacy Electronically, [facility]/pharmacy #[id number], 183, cm, 03/28/23 11:43:00 EST, Height, [...] tablet, 2 Refills, Maintenance, 04/27/23 13:02:00 EST, [facility] 15161, 183, cm, 03/28/23 11:43:00 EST, Height, 71.3, kg, 08/08/21 0:23:00 EDT, Dry Weight Start Date: 04/27/23 Status: Ordered isosorbide mononitrate 60 mg oral tablet, extended release 1 tablet, By Mouth, Daily in AM, # 28 tablet, 5 Refills, Maintenance, 04/21/23 18:37:00 EST, [facility]/pharmacy #[id number], 183, cm, 03/28/23 11:43:00 EST, Height, 71.3, kg, 08/08/21 0:23:00 EDT, Dry Weight Start Date: 04/21/23 Stop Date: 10/06/23 Status: Ordered Mylanta Maximum Strength oral suspension 5 mL, By Mouth, 4 times a day, PRN for control of stomach acid, # 200 mL, 1 Refills, Maintenance, 08/12/21 13:46:00 EDT, Suspension, [facility]/pharmacy #[id number], Partial fill upon patient request if the prescription is for a schedule II opioid drug., 5 mL By M... Start Date: 08/12/21 Status: Ordered nitroglycerin 0.4 mg sublingual tablet 1 tablet = 0.4 mg, Sublingual, Every 5 minutes, PRN Chest Pain, # 25 tablet, 3 Refills, Maintenance, 08/24/19 15:40:00 EDT, [facility]/pharmacy #[id number], 183, cm, 05/25/19 15:06:00 EST, Height, 88.3, kg, 08/31/17 3:30:00 EDT, Dry Weight Start Date: 08/24/19 Stop Date: 12/22/19 Status: Ordered oxyCODONE 30 mg oral tablet 2 tablet = 60 mg, By Mouth, Every 3 hours, HUMAN RESOURCES BENEFITS ADMINISTRATOR checked., # 112 tablet, 0 Refills, Maintenance, 05/02/23 14:43:00 EST, [facility]/pharmacy #[id number], may partial fill upon request;, 183, cm, 03/28/23 11:43:00 EST, Height, 71.3, kg, 08/08/21 0:23:00 EDT, Dry Weight Start Date: 05/02/23 Stop Date: 05/09/23 Status: Ordered oxyCODONE 30 mg oral tablet 2 tablet = 60 mg, By Mouth, Every 3 hours, HUMAN RESOURCES BENEFITS ADMINISTRATOR checked. [email or web address] 03/28/23, # 112 tablet, 0 Refills, Maintenance, 03/28/23 7:01:00 EST, [facility]/pharmacy #[id number], 7 days as needs testing performed [...] Start Date: 11/30/22 Status: Ordered Potassium Chloride (Ajt-Tusi-Zfp 10) 10 mEq oral tablet, extended release See Instructions, TAKE 2 TABLETS BY MOUTH EVERY MORNING AND TAKE 1 TABLET EVERY EVENING, # 84 tablet, 2 Refills, Maintenance, 04/27/23 13:02:00 EST, [facility], 183, cm, 03/28/23 11:43:00 EST, Height, 71.3, kg, 08/08/21 0:23:00 EDT, Dry Weight Start Date: 04/27/23 Status: Ordered sertraline 100 mg oral tablet 1 tablet, By Mouth, Daily, # 28 tablet, 5 Refills, Maintenance, 06/09/22 8:26:00 EST, [facility], 183, cm, 03/16/22 8:31:00 EDT, Height, 71.3, kg, 08/08/21 0:23:00 EDT, Dry Weight Start Date: 06/09/22 Status: Ordered sertraline 100 mg oral tablet See Instructions, TAKE 1 TABLET BY MOUTH EVERY DAY, # 28 tablet, 5 Refills, Maintenance, 11/30/22 15:39:00 EDT, [facility], 183, cm, 10/08/22 16:18:00 EDT, Height, 71.3, kg, 08/08/21 0:23:00 EDT, Dry Weight Start Date: 11/30/22 Status: Ordered spironolactone 25 mg oral tablet 1, tablet, By Mouth, Daily, # 28 tablet, Refills 4, Maintenance, 07/08/22 11:30:00 EST, Route to Pharmacy Electronically, [facility], 183, cm, 03/16/22 8:31:00 EDT, Height, 71.3, kg, 08/08/21 0:23:00 EDT, Dry Weight Start Date: 07/08/22 Status: Ordered spironolactone 25 mg oral tablet See Instructions, TAKE 1 TABLET BY MOUTH EVERY DAY, # 28 tablet, Refills 4, Maintenance, 11/30/22 15:38:00 EDT, Instructions Replace Required Details, Route to Pharmacy Electronically, [facility] 436[facility], 183, cm, 10/08/22 16:18:00 EDT, Height, 71.3, kg,... Start Date: 11/30/22 Status: Ordered sucralfate 1 gm oral tablet 1, tablet, By Mouth, 3 times a day before meals, AND BEDTIME., # 112 tablet, Refills 5, Maintenance, 02/04/23 16:32:00 EDT, Route to Pharmacy Electronically, [facility] 75307, 183, cm, 10/08/22 16:18:00 EDT, Height, 71.3, kg, 08/08/21 0:23:00 EDT, Dry... Start Date: 02/04/23 Status: Ordered Vitamin B-12 1000 mcg oral tablet 1, tablet, By Mouth, Daily, # 28 tablet, Refills 11, Tot. Refills 11, Maintenance, 04/21/23 18:37:00 EST, Route to Pharmacy Electronically, [facility]/pharmacy #[id number], 183, cm, 03/28/23 11:43:00 EST, Height,71.3, [...] artery disease by Rolando Rubin M.D. at [facility]. 4In the past; states this has resolved Social History Social History Type Response Smoking Status Never smoker entered on: 08/24/16 Sex Patient Care team information Care Team Personnel Name: Irish Samuel RN Position: [facility] RN Member Role: Primary Care Nurse Name: Mireya Ramsey Position: [facility] RN Supv Member Role: Primary Care Nurse Name: Rhea Betancur RN Position: [facility] SN RN Member Role: Primary Care Nurse Name: Hugo Ayala RN Position: [facility] RN Member Role: Primary Care Nurse Name: Lorna Faust RN Position: [facility] RN Member Role: Primary Care Nurse Name: David Gonzalez MD Position: [facility] Renal MD Member Role: Lifetime Consulting Physician Address: Address: [address] [place] [address] [address] [facility] [address]- [place] Name: Hannah Garcia NP Position: [facility] PCO Associate Professional Member Role: PCP Address: Address: [address] [place] [address], [address] [place] [address]- [place] Name: Eduin Arias MD Position: [facility] Renal MD Member Role: Lifetime Consulting Physician Address: Address: [address] [place] [address], [address] [place] [address]- [place] Name: Ana Herrera RN Position: [facility] RN Member Role: Primary Care Nurse Name: Cadence Quach RN Position: [facility] OB RN Member Role: Primary Care Nurse Name: Maggy Tsang RN Position: [facility] RN Member Role: Primary Care Nurse Name: Keyla Keys RN Position: [facility] SN RN Member Role: Primary Care Nurse Name: Марина Guevara RN Position: [facility] SN RN Member Role: Primary Care Nurse Name: Lyn Helms RN Position: [facility] RN Member Role: Primary Care Nurse Name: Tatum Biswas RN Position: [facility] RN Member Role: Primary Care Nurse Name: Hugo Bateman RN Position: [facility] RN Member Role: Primary Care Nurse Name: Petros Levy RN Position: [facility] RN Member Role: Primary Care Nurse Name: Izabella Braun RN Position: [facility] RN Member Role: Primary Care Nurse Name: Lyndsay King RN Position: [facility] RN Member Role: Primary Care Nurse Name: Hafsa Goyal RN Position: [facility] RN Member Role: Primary Care Nurse Name: Rosalio Jack RN Position: [facility] RN Member Role: Primary Care Nurse Name: Carmela Houser RN Position: [facility] SN RN Member Role: Primary Care Nurse Name: Michael Dickson RN Position: [facility] RN Member Role: Primary Care Nurse Name: Jessica Lema RN Position: [facility] RN Member Role: Primary Care Nurse Name: Phu Flynn MD Position: [facility] Renal MD Member Role: Lifetime Consulting Physician Address: Address: [address] [place] [address] [facility] [address] Name: Yesica Serna RN Position: [facility] OB RN Member Role: Primary Care Nurse Name: Jesusita Lou RN Position: [facility] OB RN Member Role: Primary Care Nurse Name: Husam Elizalde RN Position: [facility] RN Member Role: Primary Care Nurse Name: [place] Byrd RN Position: [facility] RN Member Role: Primary Care Nurse Care Team Related Persons Name: ROXANNABRYANT DUTCH Address: [place], [place] Name: ALL AYERS Address: [address] [place], [place] Name: ALL MANZANARES Address: [address] [place], [place] Name: CHRISTEN GRIMALDO Address: [address] [place], [place]
--- OUTSIDE RECORDS SUMMARY | 2023-11-18 12:36 | XMS_ITS | Continuity of Care Document ---
Author Organization [facility] Adult Address [address] [place] [id number]- Care Team Providers Care Bilingual Call Center Representative Name Role Phone Hannah Garcia NP Primary Care Physician Encounter [facility] Date(s): 03/16/22 - 03/23/22 [facility] [address] [place] [id number]- Encounter Diagnosis Atrial fibrillation(Discharge Diagnosis) - 03/16/22 Chronic kidney disease, stage 3b(Discharge Diagnosis) - 03/16/22 Chronic pain syndrome(Discharge Diagnosis) - 03/16/22 Hypertension, renal disease(Discharge Diagnosis) - 03/16/22 Use of opiates for therapeutic purposes(Discharge Diagnosis) - 03/16/22 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) - 03/16/22 Attending Physician: Hannah Garcia NP Allergies, Adverse [...] 2, 12/23/21 11:51:00 EDT, Route toPharmacy Electronically, [id number], 183, cm, 10/20/21 10:31:00 EDT, Height, 71.3, kg, 08/08/21 0:23:00 EDT, Dry Weight Start Date: 12/23/21 Status: Ordered amLODIPine 5 mg oral tablet 1 tablet, By Mouth, Daily, # 28 tablet, 4 Refills, [id number], 183, cm, 10/20/21 10:31:00 EDT,Height, 71.3, kg, 08/08/21 0:23:00 EDT, Dry Weight Start Date: 10/27/21 Status: Ordered atorvastatin 40 mg oral tablet 1 tablet, By Mouth, Daily, # 28 tablet, 5 Refills, 12/23/21 11:53:00 EDT, [facility] #[id number], 183, cm, 10/20/21 10:31:00 EDT, Height, 71.3, kg, 08/08/21 0:23:00 EDT, Dry Weight Start Date: 12/23/21 Status: Ordered buPROPion 150 mg/24 hours (XL) oral tablet, extended release See Instructions, TAKE 1 TABLET BY MOUTH EVERY 24 HOURS, # 28 tablet, 5 Refills, 03/18/22 11:05:00 EDT, [facility]/pharmacy #[id number], 28, TAKE 1 TABLET BY MOUTH EVERY 24 HOURS, 183, cm, 03/16/22 8:31:00 EDT, Height, 71.3, kg, 08/08/21 0:23:00 EDT, Dry Weight Start Date: 03/18/22 Status: Ordered buPROPion 150 mg/24 hours (XL) oral tablet, extended release 1 tablet, By Mouth, Every 24 hours, # 28 tablet, 2 Refills, [id number], 28, TAKE 1 TABLET BY MOUTH EVERY 24 HOURS, 183, cm, 08/12/21 14:20:00 EDT, Height, 71.3, kg, 08/08/21 0:23:00 EDT, Dry Weight Start Date: 09/25/21 Status: Ordered carvedilol 12.5 mg oral tablet 1, tablet, By Mouth, 2 times a day, # 56 tablet, Refills 5, Route to Pharmacy Electronically, [id number], 183, cm, 05/04/21 3:09:00 EST, Height, 81.7, kg, 04/16/21 3:06:00 EST, Dry Weight Start Date: 07/07/21 Status: Ordered carvedilol 12.5 mg oral tablet See Instructions, TAKE 1 TABLET BY MOUTH TWICE A DAY, # 56 tablet, Refills 5, Tot. Refills 5, 03/18/22 11:05:00 EDT, Instructions Replace Required Details, Route to Pharmacy Electronically, [facility]/pharmacy #[id number], 183, cm, 03/16/22 8:31:00 EDT, Height, 71... Start Date: 03/18/22 Status: Ordered clopidogrel 75 mg oral tablet 1, tablet, By Mouth, Daily, # 28 tablet, Refills 5, Route to Pharmacy Electronically, [id number], 183, cm, 05/04/21 3:09:00 EST, Height, 81.7, kg, 04/16/21 3:06:00 EST, Dry Weight Start Date: 07/02/21 Status: Ordered clopidogrel 75 mg oral tablet 75 mg, 1, tablet, By Mouth, Daily, for 30 days, # 30 tablet, Refills 5, Tot. Refills 5, Physician Stop 09/14/22 13:18:00 EDT, 03/18/22 13:18:00 EDT, [id number], cm, 03/16/22 8:31:00 EDT, Height, 71.3, kg,... Start Date: 03/18/22 Stop Date: 09/14/22 Status: Ordered Eliquis 5 mg oral tablet 1 tablet, By Mouth, 2 times a day, # 56 tablet, 6 Refills, [id number], 183, cm, 08/12/21 14:20:00 EDT, Height, 71.3, kg, 08/08/21 0:23:00 EDT, Dry Weight Start Date: 09/26/21 Status: Ordered furosemide 40 mg oral tablet 1, tablet, By Mouth, 2 times a day, # 56 tablet, Refills 2, Tot. Refills 2, 12/23/21 11:52:00 EDT, [id number], [facility], cm, 10/20/21 10:31:00 EDT, Height, 71.3, kg, 08/08/21 0:23:00 EDT, Dry Weight Start Date: 12/23/21 Status: Ordered hydrALAZINE 50 mg oral tablet 1 tablet = 50 mg, By Mouth, 3 times a day, dose change, # 90 tablet, 1 Refills, Maintenance, 02/24/22 12:54:00 EDT, Tablet, [facility]/pharmacy #[id number], 183, cm, 10/20/21 10:31:00 EDT, Height, 71.3, kg, 08/08/21 0:23:00 EDT, Dry Weight Start Date: 02/24/22 Stop Date: 04/25/22 Status: Ordered isosorbide mononitrate 60 mg oral tablet, extended release 1 tablet, By Mouth, Daily in AM, # 28 tablet, 4 Refills, [id number], 183, cm, 10/20/21 10:31:00 EDT, Height, 71.3, [...] 60 mg, By Mouth, Every 3 hours, [employer] checked., # 224 tablet, 0 Refills, Acute 05/14/23 10:29:00 EST, 03/16/22 10:48:00 EDT, [id number], may partial fill upon request;, 183, cm, 03/16/22 8:31:00 EDT, Height, 71.3, kg, 08/08/21 0:23:0... Start Date: 03/16/22 Stop Date: 05/14/23 Status: Ordered pantoprazole 40 mg oral delayed release tablet 1 tablet, By Mouth, Daily, for 30 days, # 30 tablet, 3 Refills, Physician Stop 07/16/22 13:20:00 EST, 03/18/22 13:20:00 EDT, 183, cm, 03/16/22 8:31:00 EDT, Height, 71.3, kg, 08/08/21 0:23:00 EDT, DryWeight Start Date: 03/18/22 Stop Date: 07/16/22 Status: Ordered Potassium Chloride (Ncf-[id number] 10) 10 mEq oral tablet, extended release See Instructions, TAKE 2 TABLETS BY MOUTH EVERY MORNING AND TAKE 1 TABLET EVERY EVENING, # 84 tablet, 2 Refills, 03/18/22 13:18:00 EDT, [facility]/pharmacy #[id number], 183, cm, 03/16/22 8:31:00 EDT, Height, 71.3, kg, 08/08/21 0:23:00 EDT, Dry Weight Start Date: 03/18/22 Status: Ordered sertraline 100 mg oral tablet 1 tablet, By Mouth, Daily, # 28 tablet, 5 Refills, [facility] [id number], 183, cm, 10/20/21 10:31:00 EDT,Height, 71.3, kg, 08/08/21 0:23:00 EDT, Dry Weight Start Date: 11/30/21 Status: Ordered spironolactone 25 mg oral tablet 1, tablet, By Mouth, Daily, for 30 days, # 30 tablet, Refills 3, Tot. Refills 3, Physician Stop 07/16/22 13:20:00 EST, 03/18/22 13:20:00 EDT, Route to Pharmacy Electronically, [facility]/pharmacy #[id number], 183, cm, 03/16/22 8:31:00 EDT, Height, 71.3, kg, ... Start Date: 03/18/22 Stop Date: 07/16/22 Status: Ordered sucralfate 1 gm oral tablet See Instructions, TAKE 1 TABLET BY MOUTH 3 TIMES A DAY BEFORE MEALS AND BEDTIME, # 112 tablet, Refills 2, Tot. Refills 2, Maintenance, 02/24/22 9:45:00 EDT, Instructions Replace Required Details, [id number], [facility]... Start Date: 02/24/22 Status: Ordered sucralfate 1 gm oral tablet 1, tablet, By Mouth, 3 times a day before meals, AND BEDTIME., # 112 tablet, Refills 2, Tot. Refills 2, 08/12/21 13:47:00 EDT, Route to Pharmacy Electronically, [facility]/pharmacy #[id number], 183, cm, 08/12/21 12:05:00 EDT, Height, 71.3, kg, 08/08/21 0:23:00 EDT... Start Date: 08/12/21 Status: Ordered Vitamin B-12 1000 mcg oral tablet 1, tablet, By Mouth, Daily, # 28 tablet, Refills 5, Route to Pharmacy Electronically, [id number], 183, cm, 08/12/21 14:20:00 EDT, Height, 71.3, [...] artery disease by Rolando Rubin M.D. at [facility]. 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 Discharge Diagnosis 03/16/22 Vital Signs Most recent to oldest [Reference Range]: 1 Height 183 cm (03/16/22 8:31 AM) Weight Obtained Via Patient/family state d (03/16/22 8:31 AM) Social History Social History Type Response Smoking Status Never smoker entered on: 08/24/16 Sex Patient Care team information Care Team Personnel Name: Irish Samuel RN Position: S RN Member Role: Primary Care Nurse Name: Mireya Ramsey Position: [facility] RN Supv Member Role: Primary Care Nurse Name: Rhea Betancur RN Position: [facility] SN RN Member Role: Primary Care Nurse Name: Hugo Ayala RN Position: [facility] RN Member Role: Primary Care Nurse Name: Lorna Faust RN Position: [facility] RN Member Role: Primary Care Nurse Name: Wilner Feliciano RN Position: [facility] RN Supv Member Role: Primary Care Nurse Name: David Gonzalez MD Position: [facility] Renal MD Member Role: Lifetime Consulting Physician Address: Address: [address] [place] [address], [address] [facility] [place] [address]- Name: Hannah Garcia NP Position: [facility] PCO Associate Professional Member Role: PCP Address: Address: [address] [place] [address], [address] [place] [address]- [place] Name: Eduin Arias MD Position: [facility] Physician (General Medicine) Member Role: Lifetime Consulting Physician Address: Address: [address] [place] [address], [address] [place] [address]- [place] Name: Ana Herrera RN Position: [facility] RN Member Role: Primary Care Nurse Name: Carlos Montez RN Position: S RN Member Role: Primary Care Nurse Name: Cadence Quach RN Position: [facility] OB RN Member Role: Primary Care Nurse Name: Maggy Tsang RN Position: [facility] RN Member Role: Primary Care Nurse Name: Keyla Keys RN Position: [facility] SN RN Member Role: Primary Care Nurse Name: Марина Guevara RN Position: [facility] RN Member Role: Primary Care Nurse Name: Lyn Helms RN Position: [facility] RN Member Role: Primary Care Nurse Name: Tatum Biswas RN Position: [facility] RN Member Role: Primary Care Nurse Name: Janneth Lerner RN Position: [facility] RN Member Role: Primary Care Nurse Name: Hugo Bateman RN Position: [facility] RN Member Role: Primary Care Nurse Name: Petros Levy RN Position: [facility] RN Member Role: Primary Care Nurse Name: Izabella Braun RN Position: [facility] RN Member Role: Primary Care Nurse Name: Lyndsay King RN Position: [facility] RN Member Role: Primary Care Nurse Name: Felicia Kerr RN Position: [facility] RN Member Role: Primary Care Nurse Name: Hafsa Goyal RN Position: [facility] RN Member Role: Primary Care Nurse Name: Rosalio Jack RN Position: [facility] RN Member Role: Primary Care Nurse Name: Geovanna Hill RN Position: [facility] RN Member Role: Primary Care Nurse Name: Carmela Houser RN Position: [facility] SN RN Member Role: Primary Care Nurse Name: Michael Dickson RN Position: [facility] RN Member Role: Primary Care Nurse Name: Jessica Lema RN Position: [facility] RN Member Role: Primary Care Nurse Name: Phu Flynn MD Position: [facility] Renal MD Member Role: Lifetime Consulting Physician Address: Address: [address] [place] [address] [facility] [address] Name: Jesusita Lou RN Position: [facility] OB RN Member Role: Primary Care Nurse Name: Karen Quach RN Position: [facility] PCO w/OE and EZ Script Member Role: Primary Care Nurse Name: Marshall Byrd RN Position: [facility] RN Member Role: Primary Care Nurse Care Team Related Persons Name: DUTCH MAR Address: [place] [address] Name: ALL AYERS Address: home [address] [place] [id number] Name: ALL MANZANARES Address: [address] [place] [address] Name: CHRISTEN GRIMALDO Address: [address] [place] [address]
--- OUTSIDE RECORDS SUMMARY | 2023-11-18 12:36 | XMS_ITS | Continuity of Care Document ---
Author Organization [facility] Adult Address [address] [place] [address]- Care Team Providers Care Outdoor Adventure Guides Name Role Phone Radha ODONNELL, Hannah Primary Care Physician Encounter [facility] Date(s): 10/08/22 - 10/15/22 [facility] Adult [address] [place] [id number]- Attending Physician: Not on Staff, Attending MD [...] 09/30/22 8:51:00 EDT, Route to Pharmacy Electronically, [facility], 183, cm, 03/16/22 8:31:00 EDT, Height, 71.3, kg, 08/08/21 0:23:00 EDT, Dry Weight Start Date: 09/30/22 Status: Ordered amLODIPine 5 mg oral tablet 1 tablet, By Mouth, Daily, # 28 tablet, 2 Refills, Maintenance, 09/03/22 20:56:00 EDT, [facility], 183, cm, 03/16/22 8:31:00 EDT, Height, 71.3, kg, 08/08/21 0:23:00 EDT, Dry Weight Start Date: 09/03/22 Status: Ordered atorvastatin 40 mg oral tablet 1 tablet, By Mouth, Daily, # 28 tablet, 5 Refills, Maintenance, 07/08/22 11:30:00 EST, [facility], 183, cm, 03/16/22 8:31:00 EDT, Height, 71.3, kg, 08/08/21 0:23:00 EDT, Dry Weight Start Date: 07/08/22 Status: Ordered buPROPion 150 mg/24 hours (XL) oral tablet, extended release 1 tablet, By Mouth, Daily, # 28 tablet, 5 Refills, Maintenance, 09/03/22 20:57:00 EDT, [facility], 28, TAKE 1 TABLET BY MOUTH EVERY DAY, 183, cm, 03/16/22 8:31:00 EDT, Height, 71.3, kg, :23:00 EDT, Dry Weight Start Date: 09/03/22 Status: Ordered carvedilol 12.5 mg oral tablet 1, tablet, By Mouth, 2 times a day, # 56 tablet, Refills 2, Maintenance, 09/03/22 20:57:00 EDT, Route to Pharmacy Electronically, [facility], 183, cm, 03/16/22 8:31:00 EDT, Height, 71.3, kg, 08/08/21 0:23:00 EDT, Dry Weight Start Date: 09/03/22 Status: Ordered clopidogrel 75 mg oral tablet 1, tablet, By Mouth, Daily, # 28 tablet, Refills 6, Maintenance, 09/06/22 10:04:00 EDT, Route to Pharmacy Electronically, [facility], 183, cm, 03/16/22 8:31:00 EDT, Height, 71.3, kg, 08/08/21 0:23:00 EDT, Dry Weight Start Date: 09/06/22 Status: Ordered Eliquis 5 mg oral tablet See Instructions, TAKE 1 TABLET BY MOUTH TWICE A DAY, # 56 tablet, 6 Refills, Maintenance, 05/14/2216:30:00 EST, [facility], 183, cm, 03/16/22 8:31:00 EDT, Height, 71.3, kg, 08/08/21 0:23:00 EDT, Dry Weight Start Date: 05/14/22 Status: Ordered Eliquis 5 mg oral tablet 1 tablet, By Mouth, 2 times a day, # 56 tablet, 6 Refills, [facility], 183, cm, 08/12/21 14:20:00 EDT, Height, 71.3, kg, 08/08/21 0:23:00 EDT, Dry Weight Start Date: 09/26/21 Status: Ordered furosemide 40 mg oral tablet 1, tablet, By Mouth, 2 times a day, # 56 tablet, Refills 2, Maintenance, 09/30/22 8:51:00 EDT, Route to Pharmacy Electronically, [facility], 183, cm, 03/16/22 8:31:00 EDT, Height, 71.3, kg, 08/08/21 0:23:00 EDT, Dry Weight Start Date: 09/30/22 Status: Ordered hydrALAZINE 50 mg oral tablet 1 tablet, By Mouth, 3 times a day, # 84 tablet, 1 Refills, Maintenance, 09/30/22 8:51:00 EDT, [facility], 183, cm, 03/16/22 8:31:00 EDT, Height, 71.3, kg, 08/08/21 0:23:00 EDT, Dry Weight Start Date: 09/30/22 Status: Ordered isosorbide mononitrate 60 mg oral tablet, extended release 1 tablet, By Mouth, Daily in AM, # 28 tablet, 2 Refills, Maintenance, 09/03/22 20:59:00 EDT, [facility], 183, cm, 03/16/22 8:31:00 EDT, Height, 71.3, kg, 08/08/21 0:23:00 EDT, Dry Weight Start Date: 09/03/22 Status: Ordered Mylanta Maximum Strength oral suspension 5 mL, By Mouth, 4 times a day, PRN for control of stomach acid, # 200 mL, 1 Refills, Maintenance, 08/12/21 13:46:00 EDT, Suspension, [facility]/pharmacy #[id number], Partial fill upon patient request if the prescription is for a schedule II opioid drug., 5 mL By M... Start Date: 08/12/21 Status: Ordered nitroglycerin 0.4 mg sublingual tablet 1 tablet = 0.4 mg, Sublingual, Every 5 minutes, PRN Chest Pain, # 25 tablet, 3 Refills, Maintenance, 08/24/19 15:40:00 EDT, [facility]/pharmacy #[id number], 183, cm, 05/25/19 15:06:00 EST, Height, 88.3, kg, 08/31/17 3:30:00 EDT, Dry Weight Start Date: 08/24/19 Stop Date: 12/22/19 Status: Ordered oxyCODONE 30 mg oral tablet 2 tablet = 60 mg, By Mouth, Every 3 hours, 5PMP checked. fill on 10/11/22, # 224 tablet, 0 Refills, Maintenance, 10/10/22 18:08:00 EDT, [facility]/pharmacy #[id number], may partial fill upon request; fill 07/19/2022, 183, cm, 10/08/22 16:18:00 EDT, Height, 71.3, kg,... Start Date: 10/10/22 Stop Date: 10/24/22 Status: Ordered pantoprazole 40 mg oral delayed release tablet 1 tablet, By Mouth, Daily, # 28 tablet, 4 Refills, Maintenance, 07/08/22 11:30:00 EST, 183, cm, 03/16/22 8:31:00 EDT, Height, 71.3, kg, 08/08/21 0:23:00 EDT, Dry Weight Start Date: 07/08/22 Status: Ordered Potassium Chloride (Wib-Deyt-Fqy 10) 10 mEq oral tablet, extended release See Instructions, TAKE 2 TABLETS BY MOUTH EVERY MORNING AND TAKE 1 TABLET EVERY EVENING, # 84 tablet, 2 Refills, Maintenance, 09/06/22 10:04:00 EDT, [facility], 183, cm, 03/16/22 8:31:00 EDT, Height, 71.3, kg, 08/08/21 0:23:00 EDT, Dry Weight Start Date: 09/06/22 Status: Ordered sertraline 100 mg oral tablet 1 tablet, By Mouth, Daily, # 28 tablet, 5 Refills, Maintenance, 06/09/22 8:26:00 EST, [facility], 183, cm, 03/16/22 8:31:00 EDT, Height, 71.3, kg, 08/08/21 0:23:00 EDT, Dry Weight Start Date: 06/09/22 Status: Ordered spironolactone 25 mg oral tablet 1, tablet, By Mouth, Daily, # 28 tablet, Refills 4, Maintenance, 07/08/22 11:30:00 EST, Route to Pharmacy Electronically, [facility], 183, cm, 03/16/22 8:31:00 EDT, Height, 71.3, kg, 08/08/21 0:23:00 EDT, Dry Weight Start Date: 07/08/22 Status: Ordered sucralfate 1 gm oral tablet 1, tablet, By Mouth, 3 times a day before meals, AND BEDTIME., # 112 tablet, Refills 2, Maintenance, 08/03/22 8:30:00 EDT, Route to Pharmacy Electronically, [facility], 183, cm, 03/16/22 8:31:00EDT, Height, 71.3, kg, 08/08/21 0:23:00 EDT, Dry We... Start Date: 08/03/22 Status: Ordered Vitamin B-12 1000 mcg oral tablet See Instructions, TAKE 1 TABLET BY MOUTH EVERY DAY, # 28 tablet, Refills 5, Maintenance, 05/14/22 16:30:00 EST, Instructions Replace Required Details, Route to Pharmacy Electronically, [facility], 183, cm, 03/16/22 8:31:00 EDT, Height, 71.3, kg,... Start Date: 05/14/22 Status: Ordered Vitamin B-12 1000 mcg oral tablet 1, tablet, By Mouth, Daily, # 28 tablet, Refills 5, Route to Pharmacy Electronically, [facility], 183, cm, 08/12/21 14:20:00 EDT, Height, 71.3, [...] oldest [Reference Range]: 1 Height 183 cm (10/08/22 4:18 PM) Weight 75.2 kg (10/08/22 4:18 PM) Oxygen Saturation [94-100 %] 95 % (10/08/22 4:18 PM) Pulse Rate [55-90 bpm] 86 bpm (10/08/22 4:18 PM) Body Mass Index [18.5-24.99 kg/m2] 22.46 kg/m2 (10/08/22 4:18 PM) Blood Pressure [90-138/55-84 mm Hg] 129/ 76mm Hg (10/08/22 4:18 PM) Blood pressure sites Arm, left (10/08/22 4:18 PM) Weight Obtained Via Standing scale (10/08/22 4:18 PM) Social History Social History Type Response Smoking Status Never smoker entered on: 08/24/16 Sex Note * Karen Alegre: PERFORM, SIGN, VERIFY Event Display: Patient Education/Instruction Authored Date: [id number] [facility] *BMP [place] [facility] Clinical Summary Name FANTA MAR Age 67 Years 1955 PCP Radha ODONNELL, Hannah PCP Visit Date 10/08/2022 16:14:00 Additional Instructions: Scheduled Appointments?? Future Appointments ?No [...] tab(s) Oral Daily. Refills: 2. Next Dose: Amlodipine (amLODIPine 5 mg oral tablet) 1 tab(s) Oral Daily. Refills: 2. Next Dose: apixaban (Eliquis 5 mg oral tablet) TAKE 1 TABLET BY MOUTH TWICE A DAY. Refills: 6. Next Dose: apixaban (Eliquis 5 mg oral tablet) 1 tab(s) Oral twice a day. Refills: 6. Next Dose: Atorvastatin (atorvastatin 40 mg oral tablet) 1 tab(s) Oral Daily. Refills: 5. Next Dose: BuPROpion (buPROPion 150 mg/24 hours (XL) oral tablet, extended release) 1 tab(s) Oral Daily. Refills: 5. Next Dose: Carvedilol (carvedilol 12.5 mg oral tablet) 1 tab(s) Oral twice a day. Refills: 2. Next Dose: Clopidogrel (clopidogrel 75 mg oral tablet) 1 tab(s) Oral Daily. Refills: 6. Next Dose: Cyanocobalamin (Vitamin B-12 1000 mcg oral tablet) 1 tab(s) Oral Daily. Refills: 5. Next Dose: Cyanocobalamin (Vitamin B-12 1000 mcg oral tablet) TAKE 1 TABLET BY MOUTH EVERY DAY. Refills: 5. Next Dose: Furosemide (furosemide 40 mg oral tablet) 1 tab(s) Oral twice a day. Refills: 2. Next Dose: hydrALAZINE (hydrALAZINE 50 mg oral tablet) 1 tab(s) Oral 3 times a day. Refills: 1. Next Dose: Isosorbide Mononitrate (isosorbide mononitrate 60 mg oral tablet, extended release) 1 tab(s) Oral Daily in the morning. Refills: 2. Next Dose: Nitroglycerin (nitroglycerin 0.4 mg sublingual tablet) 1 tab(s) Sublingual every 5 minutes as needed Chest Pain for 30 Days. Refills: 3. Next Dose: Oxycodone (oxyCODONE 30 mg oral tablet) 2 tab(s) Oral every 3 hours for 14 Days. 5PMP checked. fillon 09/27/22. Refills: 0. Next Dose: Pantoprazole (pantoprazole 40 mg oral delayed release tablet) 1 tab(s) Oral Daily. Refills: 4. Next Dose: Potassium Chloride (Potassium Chloride (Hgq-Eyhm-Apg 10) 10 mEq oral tablet, extended release) TAKE2 TABLETS BY MOUTH EVERY MORNING AND TAKE 1 TABLET EVERY EVENING. Refills: 2. Next Dose: Sertraline (sertraline 100 mg oral tablet) 1 tab(s) Oral Daily. Refills: 5. Next Dose: Spironolactone (spironolactone 25 mg oral tablet) 1 tab(s) Oral Daily. Refills: 4. Next Dose: Sucralfate (sucralfate 1 gm oral tablet) 1 tab(s) Oral 3 times a day before meals. AND BEDTIME.. Refills: 2. Next Dose: Allergy Info:?? morphine Medications Given This Visit Future Orders ?No future orders Vital Signs Height 183 cm Weight 75.2 kg BMI 22.46 kg/m2 Blood Pressure 129 mm Hg/76 mm Hg Temperature Pulse Rate 86 bpm Respiratory Rate 02 Sat Mode of Delivery 95 %/ You can now view a summary of your hospital visit from the comfort of your home through a free online portal called [email or web address]. [email or web address] is a website that allows you to securely view your medical information including discharge summary, medications and follow-up visits. ??You can alsosend a secure electronic message to your doctor???s office to request appointments, renew medications or just ask a question. You can enroll at [email or web address] or register during your next office visit. [...] primary care provider, you may find a [facility] provider by calling [facility] at [phone]. For information about the plan of care [...] RN Position: [facility] RN Member Role: Primary Care Nurse Name: Mireya Ramsey Position: [facility] RN Supv Member Role: Primary Care Nurse Name: Rhea Betancur RN Position: [facility] SN RN Member Role: Primary Care Nurse Name: Hugo Ayala RN Position: [facility] RN Member Role: Primary Care Nurse Name: Lorna Faust RN Position: [facility] RN Member Role: Primary Care Nurse Name: David Gonzalez MD Position: [facility] Renal MD Member Role: Lifetime Consulting Physician Address: Address: [address] [place] [address], [facility] [address] [facility] [place] [address]- [place] Name: Hannah Garcia NP Position: [facility] PCO Associate Professional Member Role: PCP Address: Address: [address] [place] [address], [address] [place] [address]- [place] Name: Eduin Arias MD Position: [facility] Renal MD Member Role: Lifetime Consulting Physician Address: Address: [address] [place] [address], [address] [place] [address]- [place] Name: Ana Herrera RN Position: [facility] AMB Nurse Member Role: Primary Care Nurse Name: Cadence Quach RN Position: [facility] OB RN Member Role: Primary Care Nurse Name: Maggy Tsang RN Position: [facility] RN Member Role: Primary Care Nurse Name: Keyla Keys RN Position: [facility] SN RN Member Role: Primary Care Nurse Name: Марина Guevara RN Position: [facility] RN Member Role: Primary Care Nurse Name: Lyn Helms RN Position: [facility] RN Member Role: Primary Care Nurse Name: Tatum Biswas RN Position: [facility] RN Member Role: Primary Care Nurse Name: Hugo Bateman RN Position: [facility] RN Member Role: Primary Care Nurse Name: Petros Levy RN Position: [facility] RN Member Role: Primary Care Nurse Name: Charly Burns RN Position: [facility] RN Member Role: Primary Care Nurse Name: Izabella Braun RN Position: [facility] RN Member Role: Primary Care Nurse Name: Lyndsay King RN Position: [facility] RN Member Role: Primary Care Nurse Name: Felicia Kerr RN Position: [facility] RN Member Role: Primary Care Nurse Name: Hafsa Goyal RN Position: [facility] RN Member Role: Primary Care Nurse Name: Rosalio Jack RN Position: [facility] RN Member Role: Primary Care Nurse Name: Geovanna Hill RN Position: [facility] RN Member Role: Primary Care Nurse Name: Carmela Houser RN Position: [facility] SN RN Member Role: Primary Care Nurse Name: Michael Dickson RN Position: [facility] RN Member Role: Primary Care Nurse Name: Jessica Lema RN Position: [facility] RN Member Role: Primary Care Nurse Name: Phu Flynn MD Position: [facility] Renal MD Member Role: Lifetime Consulting Physician Address: Address: [address] [place] [address] [facility] [address] Name: Yesica Serna RN Position: [facility] OB RN Member Role: Primary Care Nurse Name: Jesusita Lou RN Position: [facility] OB RN Member Role: Primary Care Nurse Name: Karen Quach RN Position: [facility] PCO w/OE and EZ Script Member Role: Primary Care Nurse Name: Marshall Byrd RN Position: [facility] RN Member Role: Primary Care Nurse Care Team Related Persons Name: MELLODUTCH HURTADO Address: home [place], [place] Name: ALL AYERS Address: home [address] [place], [place] Name: ALL MANZANARES Address: home [address] [place], [place] Name: CHRISTEN GRIMALDO Address: home [address] [place], [place]
--- OUTSIDE RECORDS SUMMARY | 2023-11-18 12:36 | XMS_ITS | Continuity of Care Document ---
Author Organization [facility] Adult Address [address] [place] [address]- Care Team Providers Care [employer] Operator Name Role Phone Radha ODONNELL, Hannah Primary Care Physician Encounter [facility] Date(s): 05/24/23 - 06/23/23 [facility] [address] [place] [id number]- Allergies, Adverse Reactions, Alerts Substance Reaction Severity [...] 01/09/23 7:22:00 EDT, Route to Pharmacy Electronically, [facility], 183, cm, 10/08/22 16:18:00 EDT, Height, 71.3, kg, 08/08/21 0:23:00 EDT, Dry Weight Start Date: 01/09/23 Status: Ordered amLODIPine 5 mg oral tablet 1 tablet, By Mouth, Daily, # 28 tablet, 5 Refills, Maintenance, 11/25/22 16:21:00 EDT, [facility], 183, cm, 10/08/22 16:18:00 EDT, Height, 71.3, kg, 08/08/21 0:23:00 EDT, Dry Weight Start Date: 11/25/22 Status: Ordered atorvastatin 40 mg oral tablet 1 tablet, By Mouth, Daily, # 28 tablet, 2 Refills, Maintenance, 01/09/23 7:23:00 EDT, [facility], 183, cm, 10/08/22 16:18:00 EDT, Height, 71.3, [...] tablet, 5 Refills, Maintenance, 04/21/23 18:36:00 EST, [facility]/pharmacy#[id number], 1 tablet By Mouth Daily,x28 days, 183, cm, 03/28/23 11:43:00 EST, Height, 71.3, kg, :23:00 EDT, Dry Weight Start Date: 04/21/23 Stop Date: 10/06/23 Status: Ordered carvedilol 12.5 mg oral tablet 1, tablet, By Mouth, 2 times a day, # 56 tablet, Refills 5, Maintenance, 11/25/22 16:22:00 EDT, Route to Pharmacy Electronically, [facility], 183, cm, 10/08/22 16:18:00 EDT, Height, 71.3, kg, 08/08/21 0:23:00 EDT, Dry Weight Start Date: 11/25/22 Status: Ordered cholecalciferol 50,000 intl units oral capsule 1 capsule = 50,000 International_Units, By Mouth, Every week, # 13 capsule, 3 Refills, Maintenance,03/19/23 15:28:00 EDT, Capsule, [facility]/pharmacy #[id number], Partial fill upon patient request if the prescription is for a schedule II opioid drug., 183, cm, 0... Start Date: 03/19/23 Stop Date: 03/13/24 Status: Ordered cholecalciferol 50,000 intl units oral capsule 1 capsule = 50,000 International_Units, By Mouth, Every 7 days, # 13 capsule, 3 Refills, Maintenance, 03/20/23 8:29:00 EST, Capsule, [facility]/pharmacy #[id number], Partial fill upon patient request, 183, cm, 10/08/22 16:18:00 EDT, Height, 71.3, kg, 08/08/21 0:23... Start Date: 03/20/23 Stop Date: 03/14/24 Status: Ordered clopidogrel 75 mg oral tablet 1, tablet, By Mouth, Daily, # 28 tablet, Refills 5, Tot. Refills 5, Maintenance, 06/08/23 14:08:00 EST, [id number], 183, cm, 05/10/23 11:59:00 EST, Height, [...] a day, # 56 tablet, 6 Refills, [facility] 6[facility]27, 183, cm, 08/12/21 14:20:00 EDT, Height, 71.3, kg, 08/08/21 0:23:00 EDT, Dry Weight Start Date: 09/26/21 Status: Ordered Eliquis 5 mg oral tablet See Instructions, TAKE 1 TABLET BY MOUTH TWICE A DAY, # 56 tablet, 6 Refills, Maintenance, 06/07/2409:23:00 EST, [facility]/pharmacy #[id number], 183, cm, 05/10/23 11:59:00 EST, Height, 71.3, kg, 08/08/21 0:23:00 EDT, Dry Weight Start Date: 06/07/23 Status: Ordered furosemide 40 mg oral tablet 1, tablet, By Mouth, 2 times a day, # 56 tablet, Refills 2, Tot. Refills 2, Maintenance, 04/21/23 18:37:00 EST, Route to Pharmacy Electronically, [facility]/pharmacy #[id number], 183, cm, 03/28/23 11:43:00 EST, [...] tablet, 2 Refills, Maintenance, 04/27/23 13:02:00 EST, [facility] 9[facility], 183, cm, 03/28/23 11:43:00 EST, Height, 71.3, kg, 08/08/21 0:23:00 EDT, Dry Weight Start Date: 04/27/23 Status: Ordered isosorbide mononitrate 60 mg oral tablet, extended release 1 tablet, By Mouth, Daily in AM, # 28 tablet, 5 Refills, Maintenance, 04/21/23 18:37:00 EST, [facility]/pharmacy #[id number], 183, cm, 03/28/23 11:43:00 EST, Height, 71.3, kg, 08/08/21 0:23:00 EDT, Dry Weight Start Date: 04/21/23 Stop Date: 10/06/23 Status: Ordered Mylanta Maximum Strength oral suspension 5 mL, By Mouth, 4 times a day, PRN for control of stomach acid, # 200 mL, 1 Refills, Maintenance, 08/12/21 13:46:00 EDT, Suspension, [facility]/pharmacy #[id number], Partial fill upon patient request if the prescription is for a schedule II opioid drug., 5 mL By M... Start Date: 08/12/21 Status: Ordered Narcan 4 mg/0.1 mL nasal spray = 4 mg, Nares, Both, Once, may repeat every 2 to 3 minutes until patient responds, # 1 each, 0 Refills, Soft Stop, 05/14/23 10:41:00 EST, [facility]/pharmacy #[id number], Partial fill upon patient request if the prescription is for a schedule II opioid drug., 183,... Start Date: 05/14/23 Status: Ordered nitroglycerin 0.4 mg sublingual tablet 1 tablet = 0.4 mg, Sublingual, Every 5 minutes, PRN Chest Pain, # 25 tablet, 3 Refills, Maintenance, 08/24/19 15:40:00 EDT, [facility]/pharmacy #[id number], 183, cm, 05/25/19 15:06:00 EST, Height, 88.3, kg, 08/31/17 3:30:00 EDT, Dry Weight Start Date: 08/24/19 Stop Date: 12/22/19 Status: Ordered oxyCODONE 30 mg oral tablet 1-2 tablet, By Mouth, Every 3 hours, # 84 tablet, 0 Refills, Maintenance, 06/22/23 13:41:00 EST, [facility]/pharmacy #[id number], may partial fill upon request;, [...] Start Date: 11/30/22 Status: Ordered Potassium Chloride (Why-Mxzk-Xdj 10) 10 mEq oral tablet, extended release See Instructions, TAKE 2 TABLETS BY MOUTH EVERY MORNING AND TAKE 1 TABLET EVERY EVENING, # 84 tablet, 2 Refills, Maintenance, 04/27/23 13:02:00 EST, [facility], 183, cm, 03/28/23 11:43:00 EST, Height, 71.3, kg, 08/08/21 0:23:00 EDT, Dry Weight Start Date: 04/27/23 Status: Ordered sertraline 100 mg oral tablet 1 tablet, By Mouth, Daily, # 28 tablet, 5 Refills, Maintenance, 06/09/22 8:26:00 EST, [facility], 183, cm, 03/16/22 8:31:00 EDT, Height, 71.3, kg, 08/08/21 0:23:00 EDT, Dry Weight Start Date: 06/09/22 Status: Ordered sertraline 100 mg oral tablet See Instructions, TAKE 1 TABLET BY MOUTH EVERY DAY, # 28 tablet, 5 Refills, Maintenance, 11/30/22 15:39:00 EDT, [facility], 183, cm, 10/08/22 16:18:00 EDT, Height, 71.3, kg, 08/08/21 0:23:00 EDT, Dry Weight Start Date: 11/30/22 Status: Ordered spironolactone 25 mg oral tablet 1, tablet, By Mouth, Daily, # 28 tablet, Refills 4, Maintenance, 07/08/22 11:30:00 EST, Route to Pharmacy Electronically, [facility], 183, cm, 03/16/22 8:31:00 EDT, Height, 71.3, kg, 08/08/21 0:23:00 EDT, Dry Weight Start Date: 07/08/22 Status: Ordered spironolactone 25 mg oral tablet See Instructions, TAKE 1 TABLET BY MOUTH EVERY DAY, # 28 tablet, Refills 4, Maintenance, 11/30/22 15:38:00 EDT, Instructions Replace Required Details, Route to Pharmacy Electronically, [facility], 183, cm, 10/08/22 16:18:00 EDT, Height, 71.3, kg,... Start Date: 11/30/22 Status: Ordered sucralfate 1 gm oral tablet 1, tablet, By Mouth, 3 times a day before meals, AND BEDTIME., # 112 tablet, Refills 5, Maintenance, 02/04/23 16:32:00 EDT, Route to Pharmacy Electronically, [facility], 183, cm, 10/08/22 16:18:00 EDT, Height, 71.3, kg, 08/08/21 0:23:00 EDT, Dry... Start Date: 02/04/23 Status: Ordered Vitamin B-12 1000 mcg oral tablet 1, tablet, By Mouth, Daily, # 28 tablet, Refills 11, Tot. Refills 11, Maintenance, 04/21/23 18:37:00 EST, Route to Pharmacy Electronically, [facility]/pharmacy #[id number], 183, cm, 03/28/23 11:43:00 EST, [...] Team Personnel Name: Irish Samuel RN Position: [facility] RN [...] Role: Lifetime Consulting Physician Address: Address: [address] [place] [address] [address] [facility] [address]- [place] Name: Hannah Garcia NP Position: [facility] PCO Associate Professional Member Role: PCP Address: Address: [address] [place] [address], [address] [place] [address]- Name: Eduin Arias MD Position: [facility] Renal MD Member Role: Lifetime Consulting Physician Address: Address: [address] [place] [address], [address] [place] [address]- [place] Name: Ana Herrera RN Position: [facility] AMB Nurse Member Role: Primary Care Nurse Name: Carlos Montez RN Position: [facility] Outreach Member Role: Primary Care Nurse Name: [...] Member Role: Lifetime Consulting Physician Address: Address: [address] [place] [address] [facility] [address] Name: Yesica Serna RN Position: [facility] [...] Team Related Persons Name: ROXANNAREINALDO HURTADOISSA Address: [place], [place] Name: ALL AYERS Address: home [address], [place] Name: ALL MANZANARES Address: home [address] [place], [place] Name: CHRISTEN GRIMALDO Address: home [address] [place], [place]
--- OUTSIDE RECORDS SUMMARY | 2023-11-18 12:36 | XMS_ITS | Continuity of Care Document ---
Author Organization [facility] ter Address [address] [place] [id number]- Care Team Providers Care Documentation Consultant Name Role Phone Radha ODONNELL, Hannah Primary Care Physician Encounter [facility] Date(s): 04/15/21 - 05/06/[address] [address] Discharge Disposition: A-D/C Home Attending Physician: Trace Bettencourt DO Admitting Physician: Dione Griffith DO Referring Physician: Not on Staff, Referring MD Allergies, Adverse Reactions, Alerts Substance Reaction [...] tablet, Refills 2, Route to Pharmacy Electronically, [facility], 183, cm, 08/05/20 8:57:00 EDT, Height Start Date: 03/14/21 Status: Ordered amLODIPine 5 mg oral tablet 1 tablet, By Mouth, Daily, # 28 tablet, 5 Refills, [facility], 183, cm, 08/05/20 8:57:00 EDT, Height Start Date: 04/10/21 Status: Ordered amLODIPine 5 mg oral tablet 5 mg, Tablet, By Mouth, 05/06/21 9:00:00 EST Start Date: 05/06/21 Stop Date: 05/06/21 Status: Completed atorvastatin 40 mg oral tablet 1 tablet, By Mouth, Daily, # 28 tablet, 5 Refills, Maintenance, 11/19/20 20:20:00 EDT, [facility]/pharmacy#4471, 183, cm, 08/05/20 8:57:00 EDT, Height Start Date: 11/19/20 Status: Ordered buPROPion 150 mg/24 hours (XL) oral tablet, extended release 1 tablet, By Mouth, Every 24 hours, # 28 tablet, 2 Refills, [facility], 28, TAKE 1 TABLET BY MOUTH EVERY 24 HOURS, 183, cm, 08/05/20 8:57:00 EDT, Height Start Date: 03/10/21 Status: Ordered carvedilol 12.5 mg oral tablet 12.5 mg, Tablet, By Mouth, 05/05/21 21:00:00 EST Start Date: 05/05/21 Stop Date: 05/05/21 Status: Completed carvedilol 12.5 mg oral tablet 1, tablet, By Mouth, 2 times a day, # 56 tablet, Refills 2, Route to Pharmacy Electronically, [facility], 183, cm, 08/05/20 8:57:00 EDT, Height Start Date: 04/10/21 Status: Ordered carvedilol 12.5 mg oral tablet 12.5 mg, Tablet, By Mouth, 05/06/21 9:00:00 EST Start Date: 05/06/21 Stop Date: 05/06/21 Status: Completed clopidogrel 75 mg oral tablet 1, tablet, By Mouth, Daily, # 30 tablet, Refills 5, Tot. Refills 0, Maintenance, 11/04/20 9:43:00 EDT, Route to Pharmacy Electronically, [facility], 183, cm, 08/05/20 8:57:00 EDT, Height Start Date: 11/04/20 Status: Ordered docusate sodium 100 mg oral capsule 100 mg, 1, capsule, By Mouth, 3 times a day, Bubble Pack and Delivery, # 90 capsule, Refills 5, Tot. Refills 5, Maintenance, 11/22/17 13:28:22 EDT, Route to Pharmacy Electronically, [id number], [facility] #[id number] Start Date: 11/22/17 Stop Date: 05/21/18 Status: Ordered Eliquis 5 mg oral tablet 1 tablet, By Mouth, 2 times a day, # 56 tablet, 6 Refills, [facility], 183, cm, 08/05/20 8:57:00 EDT, Height Start Date: 01/27/21 Status: Ordered furosemide 40 mg oral tablet 1, tablet, By Mouth, 2 times a day, # 56 tablet, Refills 2, Route to Pharmacy Electronically, [facility], 183, cm, 08/05/20 8:57:00 EDT, Height Start Date: 03/10/21 Status: Ordered hydrALAZINE 25 mg oral tablet 50 mg, Tablet, By Mouth, 05/05/21 21:00:00 EST Start Date: 05/05/21 Stop Date: 05/05/21 Status: Completed hydrALAZINE 25 mg oral tablet 50 mg, Tablet, By Mouth, 05/06/21 9:00:00 EST Start Date: 05/06/21 Stop Date: 05/06/21 Status: Completed hydrALAZINE 50 mg oral tablet 1 tablet = 50 mg, By Mouth, 3 times a day, dose change, # 90 tablet, 1 Refills, Maintenance, 09/10/19 10:37:00 EDT, Tablet, [facility] #[id number], 183, cm, 05/25/19 15:06:00 EST, Height Start Date: 09/10/19 Stop Date: 11/09/19 Status: Ordered isosorbide mononitrate 60 mg oral tablet, extended release 1 tablet, By Mouth, Daily in AM, # 28 tablet, 6 Refills, Maintenance, 10/22/20 16:57:00 EDT, [facility], 183, cm, 08/05/20 8:57:00 EDT, Height Start Date: 10/22/20 Status: Ordered Knee Support See Instructions, # 1 Unknown, Maintenance, knee brace Dx: Osteoarthritis and instability M12.90 Use daily PRN for Lifetime, 05/06/21 11:48:00 EST, Supply Start Date: 05/06/21 Status: Ordered lidocaine 5% topical film 1 patch, Topically, Daily, PRN Pain , Mild, Place on areas of pain remove patches after 12 hours, #30 patch, 0 Refills, Maintenance, 05/06/21 10:58:00 EST, Patch, [facility], Partial fill upon patient request if the prescription is fo... Start Date: 05/06/21 Status: Ordered NIFEdipine 30 mg oral tablet, extended release 30 mg, 1, tablet, By Mouth, Daily, Bubble Pack and Delivery, # 30 tablet, Refills 3, Tot. Refills 3, Maintenance, 03/27/18 8:38:30 EST, Route to Pharmacy Electronically, [id number], [facility] #[id number] Start Date: 03/27/18 Status: Ordered nitroglycerin 0.4 mg sublingual tablet 1 tablet = 0.4 mg, Sublingual, Every 5 minutes, PRN Chest Pain, # 25 tablet, 3 Refills, Maintenance, 08/24/19 15:40:00 EDT, [facility] #[id number], 183, cm, 05/25/19 15:06:00 EST, Height, 88.3, kg, 08/31/17 3:30:00 EDT, Dry Weight Start Date: 08/24/19 Stop Date: 12/22/19 Status: Ordered ondansetron 4 mg oral disintegrating strip 1 each = 4 mg, By Mouth, 3 times a day, Please do not exceed 3x a day, # 20 each, 0 Refills, Acute 05/13/21 12:15:00 EST, 05/06/21 11:03:00 EST, [facility], Partial fill upon patient request if the prescription is for a schedule II opioi... Start Date: 05/06/21 Stop Date: 05/13/21 Status: Ordered oxyCODONE 30 mg oral tablet 2 tablet = 60 mg, By Mouth, Every 3 hours, for 14 days, PAYROLL AND B[employer]EFITS COORDINATOR checked, # 224 tablet, 0 Refills, Acute05/20/21 13:31:00 EST, 05/06/21 13:31:00 EST, [facility] #[id number], may partial fill upon request;, 183, cm, 05/04/21 3:09:00 EST, Height, 81.7, kg, 12/0... Start Date: 05/06/21 Stop Date: 05/20/21 Status: Ordered oxyCODONE 5 mg oral tablet 60 mg, Tablet, By Mouth, Every 6 hours, Hold for: sbp<100,drowsy,RR<14, PRN for Pain , Moderate, Routine, 04/25/21 15:47:00 EST Start Date: 04/25/21 Stop Date: 05/06/21 Status: Discontinued pantoprazole 40 mg oral delayed release tablet 1 tablet, By Mouth, Daily, # 28 tablet, 2 Refills, 183, cm, 08/05/20 8:57:00 EDT, Height Start Date: 04/13/21 Status: Ordered Potassium Chloride (Nfr-Hgfj-Ilu 10) 10 mEq oral tablet, extended release See Instructions, TAKE 2 TABLETS BY MOUTH EVERY MORNING AND TAKE 1 TABLET EVERY EVENING, # 84 tablet, 2 Refills, [facility], 183, cm, 08/05/20 8:57:00 EDT, Height Start Date: 04/10/21 Status: Ordered sertraline 100 mg oral tablet 1 tablet, By Mouth, Daily, # 28 tablet, 5 Refills, Maintenance, 11/20/20 10:42:00 EDT, [facility], 183, cm, 08/05/20 8:57:00 EDT, Height Start Date: 11/20/20 Status: Ordered spironolactone 25 mg oral tablet 1, tablet, By Mouth, Daily, # 28 tablet, Refills 2, Route to Pharmacy Electronically, [facility], 183, cm, 08/05/20 8:57:00 EDT, Height Start Date: 04/10/21 Status: Ordered sucralfate 1 gm oral tablet 1, tablet, By Mouth, 3 times a day before meals, AND BEDTIME., # 112 tablet, Refills 2, Route to Pharmacy Electronically, [facility], 183, cm, 08/05/20 8:57:00 EDT, Height Start Date: 01/27/21 Status: Ordered Vitamin B-12 1000 mcg oral tablet 1, tablet, By Mouth, Daily, # 28 tablet, Refills 5, Route to Pharmacy Electronically, [facility], 183, cm, 08/05/20 8:57:00 EDT, Height Start [...] artery disease by Rolando Rubin M.D. at [facility]. 5In the past; states this has resolved Procedures Procedure Date Related Diagnosis Body Site Status Esophagogastroduodenoscopy 1 04/20/21 Completed 1Small hiatal hernia and small duodenal polyps not removed due to patient being on apixaban and plavix Results Orders for Microbiology Reports Name Date Sputum Culture w/ Gram Smear 04/30/21 Blood Culture 04/15/21 Blood Culture #2 04/15/21 Microbiology Reports TEST:Sputum Culture STATUS:Auth (Verified) BODY SITE: SOURCE:EXPECT COLLECTED DATE/TIME:04/30/21 6:50 PM Sputum Culture SPECIMEN DESCRIPTION : EXPECTORATED SPUTUM SPECIAL REQUESTS : NONE GRAM STAIN : 1+ POLYMORPHONUCLEAR LEUKOCYTES 1+ SQ.EPITHELIAL CELLS 1+ GRAM POSITIVE COCCI 1+ GRAM NEGATIVE RODS CULTURE : 1+ NORMAL LAUREN REPORT STATUS : FINAL 05/03/2021 TEST:Blood Culture, Second Order STATUS:Auth (Verified) BODY SITE: SOURCE:Blood COLLECTED DATE/TIME:04/15/21 5:52 PM Blood Culture, Second Order SPECIMEN DESCRIPTION : BLOOD RHAND SPECIAL REQUESTS : NONE CULTURE : NO GROWTH 5 DAYS. REPORT STATUS : FINAL 04/20/2021 TEST:Blood Culture STATUS:Auth (Verified) BODY SITE: SOURCE:Blood COLLECTED DATE/TIME:04/15/21 5:46 PM Blood Culture SPECIMEN DESCRIPTION : BLOOD RAC SPECIAL REQUESTS : NONE CULTURE : NO GROWTH 5 DAYS. REPORT STATUS : FINAL 04/20/2021 Radiology Reports * Exam Date Time Procedure Performing Provider Status 05/02/21 3:41 PM Chest Portable Nicole Lemons; Auth (Verified) Notes: (Chest Portable) Reason For Exam: Cough RESULT: Chest Portable Chest Portable Reason: Cough; Clinical Question(s): Pneumonia COMPARISON: 04/29/2021 FINDINGS: LINES AND TUBES: None. LUNGS AND PLEURA: Diffuse left airspace opacity on the left has improved. The right hemithorax remains clear. No large pleural effusion. No pneumothorax. HEART, MEDIASTINUM AND JENARO: Unchanged. BONES AND SOFT TISSUES: No acute abnormality. Median sternotomy wires present with unchanged fracture of the most inferior sternotomy wire IMPRESSION: Interval improvement of diffuse left airspace opacity WSN: [id number] Ordering Physician: Trace Bettencourt Dictated By: Ferny Ramirez MD Dictated Date/Time: 05/02/21 3:49 pm Reviewed By: Ferny Ramirez MD Signed By: Ferny Ramirez MD Signed Date/Time: 05/02/21 3:49 pm Transcribed By: TIFFANY Transcribed Date/Time: 05/02/21 3:47 pm * Exam Date Time Procedure Performing Provider Status 04/29/21 8:30 AM Chest 2 Views Frontal and Lat Donita Bateman; Auth (Verified) Notes: (Chest 2 Views Frontal and Lat) Reason For Exam: CHF RESULT: Chest 2 Views Frontal and Lat AP and lateral chest x-ray dated April 29, 2021. Comparison films are from July 06, 2018. HISTORY: Shortness of breath. FINDINGS: The cardiac silhouette is at the upper limits of normal for size and unchanged. Mural calcifications are present in the aorta. The patient is status post median sternotomy. Diffuse airspaceinfiltrates are present in the left lung or prominent in the upper the lower lungs. No airspace infiltrate is present on the right. There are bilateral pleural effusions left greater than right. Severe arthritic changes are noted in the left shoulder and there is a right shoulder arthroplasty. IMPRESSION: Findings most consistent with diffuse pneumonia on the left. The differential diagnosis could include atypical pneumonia or less likely asymmetric pulmonary edema. Small right pleural effusion. Examination 45[address]. Thank you for allowing me to participate in the care of this patient. WSN: [id number] Ordering Physician: Mikki Wheeler Dictated By: Jose Raul Kilpatrick MD Dictated Date/Time: 04/29/21 10:55 a Reviewed By: Jose Raul Kilpatrick MD Signed By: Jose Raul Kilpatrick MD Signed Date/Time: 04/29/21 10:55 am Transcribed By: TIFFANY Transcribed Date/Time: 04/29/21 10:51 am * Exam Date Time Procedure Performing Provider Status 04/17/21 6:34 PM XR Hip w/Pelvis 2-3 View Right Cali Lynnette; Auth (Verified) Notes: (XR Hip w/Pelvis 2-3 View Right) Reason For Exam: Pain RESULT: XR Hip w/Pelvis 2-3 View Right XR Hip w/Pelvis 2-3 View Right Reason: Pain; Clinical Question(s): Fracture COMPARISON: None. FINDINGS: There is no fracture or dislocation. Mild bilateral hip osteoarthropathy. There Normal soft tissues. IMPRESSION: No acute abnormality. WSN: [id number] Ordering Physician: Ellyn Cartwright Dictated By: Baldo Morales MD Dictated Date/Time: 04/17/21 7:38 pm Reviewed By: Baldo Morales MD Signed By: Baldo Morales MD Signed Date/Time: 04/17/21 7:38 pm Transcribed By: TIFFANY Transcribed Date/Time: 04/17/21 7:37 pm Vital Signs Most recent to oldest [Reference Range]: 1 2 3 4 Height 183 cm (05/04/21 3:09 AM) 183 cm (05/03/21 11:49 PM) 183 cm (05/03/21 8:31 PM) Weight 87.6 kg (05/01/21 4:16 AM) 94.7 kg (04/27/21 3:29 PM) 94.7 kg (04/20/21 9:02 AM) Oxygen Saturation [94-100 %] 94 % (05/06/21 8:00 AM) 100 % (05/05/21 8:00 PM) 95 % (05/05/21 5:00 PM) Pulse Rate [55-90 bpm] 67 bpm (05/06/21 8:18 AM) 76 bpm (05/05/21 9:09 PM) 76 bpm (05/05/21 8:00 PM) Body Mass Index [18.5-24.99] 28.28 *H* (04/27/21 3:29 PM) 28.28 *H* (04/20/21 9:02 AM) 28.28 *H* (04/17/21 11:36 AM) Blood Pressure [90-138/55-84 mm Hg] 140/82mm Hg *H* (05/06/21 8:18 AM) 140/82mm Hg *H* (05/06/21 8:17 AM) 135/78mm Hg (05/05/21 9:09 PM) 136/78mm Hg (05/05/21 9:09 PM) Respiratory Rate [16-30 br/min] 18 br/min (05/06/21 8:16 AM) 18 br/min (05/06/21 3:07 AM) 18 br/min (05/05/21 9:10 PM) Temperature [96.8-100.4 DegF] 98.1 DegF (05/06/21 8:00 AM) 98.5 DegF (05/05/21 8:00 PM) 97.9 DegF (05/05/21 5:00 PM) Liters per Minute 2 L/min (05/05/21 8:00 PM) 2 L/min (05/05/21 5:00 PM) 2 L/min (05/05/21 8:00 AM) Mode of Delivery (Oxygen) Room air (05/06/21 8:00 AM) Nasal cannula (05/05/21 8:00 PM) Nasal cannula (05/05/21 5:00 PM) Blood pressure sites Arm, left (05/05/21 8:00 PM) Arm, left (05/05/21 5:00 PM) Arm, left (05/05/21 8:00 AM) Temperature Route Oral (05/06/21 8:00 AM) Oral (05/05/21 8:00 PM) Oral (05/05/21 5:00 PM) Dry Weight 81.7 kg (04/16/21 3:06 AM) 95.45 kg (04/15/21 3:52 PM) 95.45 kg (04/15/21 2:49 PM) Weight Obtained Via Bed scale (05/01/21 4:16 AM) Bed scale (04/17/21 11:36 AM) Bed scale (04/16/21 3:06 AM) Dry Weight Obtained Via Bed scale (04/16/21 3:06 AM) Social History Social History Type Response Smoking Status Never smoker entered on: 08/24/16 Sex
--- OUTSIDE RECORDS SUMMARY | 2023-11-18 12:36 | XMS_ITS | Continuity of Care Document ---
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 Start Date: 12/24/19 Status: Ordered amLODIPine 5 mg oral tablet 5 mg, 1, tablet, By Mouth, Daily, # 30 tablet, Refills 5, Tot. Refills 5, Maintenance, 11/26/19 14:40:00 EDT, Route to Pharmacy Electronically, [facility]/pharmacy #[id number], 183, cm, 11/05/19 9:35:00 EDT, Height, Dry Weight Start Date: 11/26/19 Stop Date: 05/24/20 Status: Ordered atorvastatin 40 mg oral tablet See Instructions, TAKE 1 TABLET BY MOUTH EVERY DAY, # 28 tablet, 5 Refills, Soft Stop, 12/27/19 14:47:00 EDT, [facility]/pharmacy #[id number], 183, cm, 11/05/19 9:35:00 EDT, Height, Dry Weight Start Date: 12/27/19 Status: Ordered buPROPion 150 mg/24 hours (XL) oral tablet, extended release 1 tablet = 150 mg, By Mouth, Every 24 hours, # 30 tablet, 5 Refills, Maintenance, 02/18/20 10:40:00EDT, ER Tablet, [facility]/pharmacy #[id number], Bubble pack and delivery, 1 tablet By Mouth Every 24 hours, 183, cm, 02/05/20 12:53:00 EDT, Height, Dry Weight Start Date: 02/18/20 Status: Ordered carvedilol 12.5 mg oral tablet 12.5 mg, 1, tablet, By Mouth, 2 times a day, # 60 tablet, Refills 5, Tot. Refills 5, Soft Stop, 10/26/19 11:37:00 EDT, Route to Pharmacy Electronically, [facility]/pharmacy #[id number], 183, cm, 05/25/19 15:06:00EST, Height Start Date: 10/26/19 Status: Ordered clopidogrel 75 mg oral tablet 75 mg, 1, tablet, By Mouth, Daily, # 30 tablet, Refills 5, Tot. Refills 5, Maintenance, 12/24/19 13:07:00 EDT, Route to Pharmacy Electronically, [facility]/pharmacy #[id number], 183, cm, 11/05/19 9:35:00 EDT, Height, Dry Weight Start Date: 12/24/19 Status: Ordered [facility] B[facility] 1,000 MCG TABLET See Instructions, # 30 tablet, TAKE 1 TABLET BY MOUTH EVERY DAY, [facility]/pharmacy #0693 Start Date: 03/20/19 Status: Ordered docusate sodium 100 mg oral capsule 100 mg, 1, capsule, By Mouth, 3 times a day, Bubble Pack and Delivery, # 90 capsule, Refills 5, Tot. Refills 5, Maintenance, 11/22/17 13:28:22 EDT, Route to Pharmacy Electronically, [id number], [facility] #[id number] Start Date: 11/22/17 Stop Date: 05/21/18 Status: Ordered Eliquis 5 mg oral tablet 1 tablet = 5 mg, By Mouth, 2 times a day, # 60 tablet, 5 Refills, Maintenance, 02/18/20 14:47:00 EDT, Tablet, [facility]/pharmacy #[id number], 183, cm, 02/05/20 12:53:00 EDT, Height, Dry Weight Start Date: 02/18/20 Status: Ordered furosemide 40 mg oral tablet 40 mg, 1, tablet, By Mouth, 2 times a day, # 60 tablet, Refills 2, Tot. Refills 2, Soft Stop, 02/06/20 10:28:00 EDT, Route to Pharmacy Electronically, [facility]/pharmacy #[id number], this replaces previous script. Pt is on 2 tabs daily, 183, cm, 02/05/20 12:53:00... Start Date: 02/06/20 Stop Date: 05/06/20 Status: Ordered hydrALAZINE 50 mg oral tablet 1 tablet = 50 mg, By Mouth, 3 times a day, dose change, # 90 tablet, 1 Refills, Maintenance, 09/10/19 10:37:00 EDT, Tablet, [facility]/pharmacy #[id number], 183, cm, 05/25/19 15:06:00 EST, Height Start Date: 09/10/19 Stop Date: 11/09/19 Status: Ordered isosorbide mononitrate 60 mg oral tablet, extended release 60 mg, 1, tablet, By Mouth, Daily in AM, # 30 tablet, Refills 5, Tot. Refills 5, Soft Stop, 09/11/19 14:15:00 EDT, Route to Pharmacy Electronically, [facility]/pharmacy #[id number], 183, cm, 05/25/19 15:06:00 EST, Height, Dry Weight Start Date: 09/11/19 Stop Date: 03/09/20 Status: Ordered NIFEdipine 30 mg oral tablet, extended release 30 mg, 1, tablet, By Mouth, Daily, Bubble Pack and Delivery, # 30 tablet, Refills 3, Tot. Refills 3, Maintenance, 03/27/18 8:38:30 EST, Route to Pharmacy Electronically, [id number], [facility]/pharmacy #[id number] Start Date: 03/27/18 Status: Ordered nitroglycerin 0.4 mg sublingual tablet 1 tablet = 0.4 mg, Sublingual, Every 5 minutes, PRN Chest Pain, # 25 tablet, 3 Refills, Maintenance, 08/24/19 15:40:00 EDT, [facility]/pharmacy #[id number], 183, cm, 05/25/19 15:06:00 EST, Height, 88.3, kg, 08/31/17 3:30:00 EDT, Dry Weight Start Date: 08/24/19 Stop Date: 12/22/19 Status: Ordered oxyCODONE 30 mg oral tablet 2 tablet = 60 mg, By Mouth, Every 3 hours, CHOCOLATIER checked, # 224 tablet, 0 Refills, Acute 05/15/20 14:24:00 EST, 03/06/20 20:09:00 EDT, [facility]/pharmacy #[id number], may partial fill upon request;, [...] TAKE 1 TABLET BY MOUTH EVERY DAY, [facility]/pharmacy #[id number] Start Date: 02/26/19 Status: Ordered potassium chloride 10 mEq oral tablet, extended release See Instructions, take 2 tabs in am and 1 tab in pm, # 90 tablet, 2 Refills, Maintenance, 02/06/20 16:13:00 EDT, ER Tablet, [facility]/pharmacy #[id number], 183, cm, 02/05/20 12:53:00 EDT, Height Start Date: 02/06/20 Status: Ordered sertraline 100 mg oral tablet 1 tablet = 100 mg, By Mouth, Daily, # 90 tablet, 1 Refills, Maintenance, 02/18/20 14:47:00 EDT, [facility]t, [id number] Bubble [facility] and delivery, 183, cm, 02/05/20 12:53:00 EDT, Height Start Date: 02/18/20 Stop Date: 08/16/20 Status: Ordered spironolactone 25 mg oral tablet 25 mg, 1, tablet, By Mouth, Daily, # 30 tablet, Refills 1, Tot. Refills 1, Soft Stop, 02/18/20 14:47:00 EDT, [id number] 183, cm, 02/05/20 12:53:00 EDT, Height Start Date: 02/18/20 Stop Date: 04/18/20 Status: Ordered sucralfate 1 gm oral tablet 1 Gm, 1, tablet, By Mouth, 3 times a day before meals and bedtime, # 120 tablet, Refills 2, Tot. Refills 2, Maintenance, 02/13/20 15:20:00 EDT, [id number] 183, cm, 02/05/20 12:53:00 EDT, Height, Dry Weight Start Date: 02/13/20 Status: Ordered Vitamin B-12 1000 mcg oral tablet 1,000 mcg, 1, tablet, By Mouth, Daily, # 30 tablet, Refills 1, Tot. Refills 1, Soft Stop, 02/18/20 14:47:00 EDT, [id number] 183, cm, 02/05/20 12:53:00 EDT, [...] artery disease by Rolando Rubin M.D. at [facility]. 5In the past; states this has resolved Social History Social History Type Response Smoking Status Never smoker entered on: 08/24/16 Sex
--- OUTSIDE RECORDS SUMMARY | 2023-11-18 12:36 | XMS_ITS | Continuity of Care Document ---
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 Role Phone Radha ODONNELL, Hannah Primary Care Physician [phone] Encounter [facility] [place] Date(s): 08/07/21 - 08/12/[address] [id number] Discharge Disposition: A-Transfer VNA/Home Health Attending Physician: Vasile Macdonald MD, Benito Rendon Admitting Physician: Zita Jaimes MD Referring Physician: Not on Staff, Referring MD [...] tablet, Refills 2, Route to Pharmacy Electronically, [id number], 183, cm, 05/04/21 3:09:00 EST, Height, 81.7, kg, 04/16/21 3:06:00 EST, Dry Weight Start Date: 07/02/21 Status: Ordered amLODIPine 5 mg oral tablet 5 mg, Tablet, By Mouth, 08/12/21 9:00:00 EDT Start Date: 08/12/21 Stop Date: 08/12/21 Status: Completed amLODIPine 5 mg oral tablet 1 tablet, By Mouth, Daily, # 28 tablet, 5 Refills, [facility], 183, cm, 08/05/20 8:57:00 EDT, Height Start Date: 04/10/21 Status: Ordered atorvastatin 40 mg oral tablet 1 tablet, By Mouth, Daily, # 28 tablet, 5 Refills, [facility], 183, cm, 05/04/21 3:09:00 EST, Height, 81.7, kg, 04/16/21 3:06:00 EST, Dry Weight Start Date: 07/01/21 Status: Ordered buPROPion 150 mg/24 hours (XL) oral tablet, extended release 1 tablet, By Mouth, Every 24 hours, # 28 tablet, 2 Refills, [facility], 28, TAKE 1 TABLET BY MOUTH EVERY 24 HOURS, 183, cm, 05/04/21 3:09:00 EST, Height, 81.7, kg, 04/16/21 3:06:00 EST, Dry Weight Start Date: 07/02/21 Status: Ordered carvedilol 12.5 mg oral tablet 1, tablet, By Mouth, 2 times a day, # 56 tablet, Refills 5, Route to Pharmacy Electronically, [facility], 183, cm, 05/04/21 3:09:00 EST, Height, 81.7, kg, 04/16/21 3:06:00 EST, Dry Weight Start Date: 07/07/21 Status: Ordered carvedilol 6.25 mg oral tablet 6.25 mg, Tablet, By Mouth, 08/12/21 9:00:00 EDT Start Date: 08/12/21 Stop Date: 08/12/21 Status: Completed clopidogrel 75 mg oral tablet 1, tablet, By Mouth, Daily, # 28 tablet, Refills 5, Route to Pharmacy Electronically, [facility], 183, cm, 05/04/21 3:09:00 EST, Height, 81.7, kg, 04/16/21 3:06:00 EST, Dry Weight Start Date: 07/02/21 Status: Ordered Eliquis 5 mg oral tablet 1 tablet, By Mouth, 2 times a day, # 56 tablet, 6 Refills, [facility], 183, cm, 08/05/20 8:57:00 EDT, Height Start Date: 01/27/21 Status: Ordered furosemide 40 mg oral tablet 1, tablet, By Mouth, 2 times a day, # 56 tablet, Refills 2, Route to Pharmacy Electronically, [facility], 183, cm, 05/04/21 3:09:00 EST, Height, 81.7, [...] in AM, # 28 tablet, 2 Refills, [facility], 183, cm, 05/04/21 3:09:00EST, Height, 81.7, kg, [...] 60 mg, By Mouth, Every 3 hours, BENDING FRAME OPERATOR checked. Fill on 08/04/21, # 224 tablet, 0 Refills, Acute 05/15/22 13:12:00 EST, 07/31/21 12:53:00 EDT, [facility]/pharmacy #[id number], may partial fill upon request;, 183, cm, 05/04/21 3:09:00 EST, Height, 81.7, kg,... Start Date: 07/31/21 Stop Date: 05/15/22 Status: Ordered oxyCODONE 5 mg oral tablet 60 mg, Tablet, By Mouth, Hold for: respiratory depression, pinpoint pupils, 08/12/21 12:00:00 EDT Start Date: 08/12/21 Stop Date: 08/12/21 Status: Completed oxyCODONE 5 mg oral tablet 60 mg, Tablet, By Mouth, Hold for: respiratory depression, pinpoint pupils, 08/12/21 15:00:00 EDT Start Date: 08/12/21 Stop Date: 08/12/21 Status: Completed pantoprazole 40 mg oral delayed release tablet 1 tablet, By Mouth, Daily, # 28 tablet, 2 Refills, 08/12/21 13:46:00 EDT, 183, cm, 08/12/21 12:05:00 EDT, Height, 71.3, kg, 08/08/21 0:23:00 EDT, Dry Weight Start Date: 08/12/21 Status: Ordered sertraline 100 mg oral tablet 1 tablet, By Mouth, Daily, # 28 tablet, 5 Refills, [facility], 183, cm, 05/04/21 3:09:00 EST, Height, 81.7, kg, 04/16/21 3:06:00 EST, Dry Weight Start Date: 06/11/21 Status: Ordered spironolactone 25 mg oral tablet 1, tablet, By Mouth, Daily, # 28 tablet, Refills 2, Tot. Refills 2, 08/12/21 13:46:00 EDT, Route toPharmacy Electronically, [facility]/pharmacy #[id number], 183, cm, [...] to Pharmacy Electronically, [facility], 183, cm, 08/05/20 8:57:00 EDT, Height Start Date: 03/10/21 Status: Ordered Zofran 4 mg oral tablet 1 tablet = 4 mg, By Mouth, Every 8 hours, PRN as needed for nausea/vomiting, for 5 days, # 20 tablet, 0 Refills, Acute 08/17/21 13:52:00 EDT, 08/12/21 13:52:00 EDT, Tablet, [facility]/pharmacy #[id number], Partial fill upon patient request if the prescription is f... Start Date: 08/12/21 Stop Date: 08/17/21 Status: Ordered Problem List Condition Effective Dates [...] artery disease by Rolando Rubin M.D. at [facility]. 3In the past; states this has resolved Procedures Procedure Date Related Diagnosis Body Site Status Bronchoscopy Completed Cardiac catheterization C ompleted History of tonsillectomy Completed Results Radiology Reports * Exam Date Time Procedure Performing Provider Status 08/08/21 12:02 AM Chest Portable Doangelita , Reese; Auth (Ve rified) Notes: (Chest Portable) Reason For Exam: Cough RESULT: Chest Portable Chest Portable Reason: Cough; Clinical Question(s): Pleural Effusion COMPARISON: 05/02/2021 FINDINGS: LINES AND TUBES: None. LUNGS AND PLEURA: Clear lungs. Surgical staple line upper left lung. Normal pulmonary vascularity. No pleural effusion. No pneumothorax. HEART, MEDIASTINUM AND JENARO: Heart is normal in size. Anterior chest surgery. Normal upper mediastinal and hilar contour. Mild aortic tortuosity. BONES AND SOFT TISSUES: No acute abnormality. Right shoulder arthroplasty. Severe osteoarthritis left shoulder. Median sternotomy with fracture of the inferior-most wire (total of 8 wires), present previously. IMPRESSION: No pleural effusion or acute abnormality. WSN: [id number] Ordering Physician: Jose Martin Arroyo Dictated By: Brandon Taylor MD Dictated Date/Time: 08/08/21 0:10 am Reviewed By: Brandon Taylor MD Signed By: Brandon Taylor MD Signed Date/Time: 08/08/21 0:10 am Transcribed By: TIFFANY Transcribed Date/Time: 08/08/21 0:08 am Vital Signs Most recent to oldest [Reference Range]: 1 2 3 Height 183 cm (08/12/21 2:20 PM) 183 cm (08/12/21 9:00 AM) 183 cm (08/12/21 2:11 AM) Weight 73.6 kg (08/12/21 2:11 AM) 73.1 kg (08/11/21 2:00 AM) 74.1 kg (08/09/21 4:08 AM) Oxygen Saturation [94-100 %] 96 % (08/12/21 2:20 PM) 95 % (08/12/21 9:00 AM) 95 % (08/12/21 2:11 AM) Pulse Rate [55-90 bpm] 67 bpm (08/12/21 2:20 PM) 60 bpm (08/12/21 9:09 AM) 78 bpm (08/12/21 9:00 AM) Body Mass Index [18.5-24.99] 21.98 (08/12/21 2:11 AM) 21.29 (08/08/21 12:19 AM) Blood Pressure [90-138/55-84 mm Hg] 146/68mm Hg *H* (08/12/21 2:20 PM) 138/78mm Hg (08/12/21 9:09 AM) 138/78mm Hg (08/12/21 9:08 AM) Respiratory Rate [16-30 br/min] 18 br/min (08/12/21 3:28 PM) 18 br/min (08/12/21 2:20 PM) 18 br/min (08/12/21 1:30 PM) Temperature [96.8-100.4 DegF] 98.7 DegF (08/12/21 2:20 PM) 97.0 DegF (08/12/21 9:00 AM) 98.2 DegF (08/12/21 2:11 AM) Mode of Delivery (Oxygen) Room air (08/12/21 2:20 PM) Room air (08/12/21 9:00 AM) Room air (08/12/21 2:11 AM) Blood pressure sites Arm, right (08/12/21 2:20 PM) Arm, right (08/12/21 9:00 AM) Arm, left (08/12/21 2:11 AM) Temperature Route Oral (08/12/21 2:20 PM) Oral (08/12/21 9:00 AM) Oral (08/12/21 2:11 AM) Dry Weight 71.3 kg (08/08/21 12:19 AM) Weight Obtained Via Bed scale (08/12/21 2:11 AM) Bed scale (08/09/21 4:08 AM) Bed scale (08/08/21 12:19 AM) Dry Weight Obtained Via Bed scale (08/08/21 12:19 AM) Social History Social History Type Response Smoking Status Never smoker entered on: 08/24/16 Sex
--- OUTSIDE RECORDS SUMMARY | 2023-11-18 12:36 | XMS_ITS | Continuity of Care Document ---
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 Start Date: 10/01/19 Status: Ordered amLODIPine 5 mg oral tablet See Instructions, # 28 tablet, Refills 2 Tot. Refills 2, TAKE 1 TABLET BY MOUTH EVERY DAY, [facility]/pharmacy #[id number] Start Date: 03/26/19 Status: Ordered amLODIPine 5 mg oral tablet 5 mg, 1, tablet, By Mouth, Daily, # 30 tablet, Refills 5, Tot. Refills 5, Maintenance, 11/26/19 14:40:00 EDT, Route to Pharmacy Electronically, [facility]/pharmacy #[id number], 183, cm, 11/05/19 9:35:00 EDT, Height, Dry Weight Start Date: 11/26/19 Stop Date: 05/24/20 Status: Ordered atorvastatin 40 mg oral tablet See Instructions, TAKE 1 TABLET BY MOUTH EVERY DAY, # 28 tablet, 5 Refills, Soft Stop, 08/13/19 11:46:00 EDT, [facility]/pharmacy #[id number], 183, cm, 05/25/19 15:06:00 EST, Height, 88.3, kg, 08/31/17 3:30:00 EDT, Dry Weight Start Date: 08/13/19 Status: Ordered buPROPion 150 mg/24 hours (XL) oral tablet, extended release 1 tablet = 150 mg, By Mouth, Every 24 hours, # 30 tablet, 5 Refills, Maintenance, 10/26/19 13:15:00EDT, ER Tablet, [facility]/pharmacy #[id number], 1 tablet By Mouth Every 24 hours, 183, cm, 05/25/19 15:06:00 EST, Height, Dry Weight Start Date: 10/26/19 Status: Ordered buPROPion 150 mg/24 hours (XL) oral tablet, extended release 1 tablet = 150 mg, By Mouth, Every 24 hours, # 30 tablet, 5 Refills, Maintenance, 05/20/19 10:41:00EST, ER Tablet, [facility]/pharmacy #[id number], Bubble pack and delivery, 1 tablet By Mouth Every 24 hours, 183, cm, 01/23/19 14:41:00 EDT, Height, 88.3, kg, 08/31... Start Date: 05/20/19 Status: Ordered carvedilol 12.5 mg oral tablet 12.5 mg, 1, tablet, By Mouth, 2 times a day, # 60 tablet, Refills 5, Tot. Refills 5, Soft Stop, 10/26/19 11:37:00 EDT, Route to Pharmacy Electronically, [facility]/pharmacy #[id number], 183, cm, 05/25/19 15:06:00EST, Height Start Date: 10/26/19 Status: Ordered clopidogrel 75 mg oral tablet 75 mg, 1, tablet, By Mouth, Daily, # 30 tablet, Refills 5, Tot. Refills 5, Maintenance, 07/16/19 14:53:00 EST, Route to Pharmacy Electronically, [facility]/pharmacy #[id number], 183, cm, 05/25/19 15:06:00 EST, Height, 88.3, kg, 08/31/17 3:30:00 EDT, Dry Weight Start Date: 07/16/19 Status: Ordered [facility] B[facility] 1,000 MCG TABLET See Instructions, # 30 tablet, TAKE 1 TABLET BY MOUTH EVERY DAY, [facility]/pharmacy #[id number] Start Date: 03/20/19 Status: Ordered docusate sodium 100 mg oral capsule 100 mg, 1, capsule, By Mouth, 3 times a day, Bubble Pack and Delivery, # 90 capsule, Refills 5, Tot. Refills 5, Maintenance, 11/22/17 13:28:22 EDT, Route to Pharmacy Electronically, [id number], [facility]/pharmacy #[id number] Start Date: 11/22/17 Stop Date: 05/21/18 Status: Ordered Eliquis 5 mg oral tablet 1 tablet = 5 mg, By Mouth, 2 times a day, # 60 tablet, 5 Refills, Maintenance, 05/21/19 10:06:00 EST, Tablet, [facility]/pharmacy #[id number], 183, cm, 01/23/19 14:41:00 EDT, Height, 88.3, kg, 08/31/17 3:30:00 EDT, Dry Weight Start Date: 05/21/19 Status: Ordered Eliquis 5 mg oral tablet 1 tablet = 5 mg, By Mouth, 2 times a day, # 60 tablet, 3 Refills, Soft Stop, 10/26/19 13:50:00 EDT,[facility]/pharmacy #[id number], 183, cm, 05/25/19 15:06:00 EST, Height Start Date: 10/26/19 Stop Date: 02/23/20 Status: Ordered furosemide 40 mg oral tablet 40 mg, 1, tablet, By Mouth, Daily, # 30 tablet, Refills 5, Tot. Refills 5, Maintenance, 10/26/19 13:16:00 EDT, [id number], cm, 05/25/19 15:06:00 EST, Height, Dry Weight Start Date: 10/26/19 Status: Ordered furosemide 40 mg oral tablet 40 mg, 1, tablet, By Mouth, 2 times a day, # 60 tablet, Refills 1, Tot. Refills 1, Soft Stop, 10/26/19 13:50:00 EDT, [id number]. Pt is on 2 tabs daily, 183, cm, 05/25/19 15:06:00... Start Date: 10/26/19 Stop Date: 12/25/19 Status: Ordered hydrALAZINE 25 mg oral tablet 25 mg, 1, tablet, By Mouth, 2 times a day, # 60 tablet, Refills 5, Tot. Refills 5, Maintenance, 06/18/19 14:34:00 EST, [id number], 183, cm, 05/25/19 15:06:00EST, Height, 88.3, kg, 08/31/17 3:30:00 EDT, Dry We... Start Date: 06/18/19 Stop Date: 12/15/19 Status: Ordered hydrALAZINE 50 mg oral tablet 1 tablet = 50 mg, By Mouth, 3 times a day, dose change, # 90 tablet, 1 Refills, Maintenance, 09/10/19 10:37:00 EDT, Tablet, [id number], 183, cm, 05/25/19 15:06:00 EST, Height Start Date: 09/10/19 Stop Date: 11/09/19 Status: Ordered isosorbide mononitrate 60 mg oral tablet, extended release 60 mg, 1, tablet, By Mouth, Daily in AM, # 30 tablet, Refills 5, Tot. Refills 5, Soft Stop, 09/11/19 14:15:00 EDT, [id number] 183, cm, 05/25/19 15:06:00 EST, Height, Dry Weight Start Date: 09/11/19 Stop Date: 03/09/20 Status: Ordered NIFEdipine 30 mg oral tablet, extended release 30 mg, 1, tablet, By Mouth, Daily, Bubble Pack and Delivery, # 30 tablet, Refills 3, Tot. Refills 3, Maintenance, 03/27/18 8:38:30 EST, Route to Pharmacy Electronically, [id number], [facility]/pharmacy #[id number] Start Date: 03/27/18 Status: Ordered nitroglycerin 0.4 mg sublingual tablet 1 tablet = 0.4 mg, Sublingual, Every 5 minutes, PRN Chest Pain, # 25 tablet, 3 Refills, Maintenance, 08/24/19 15:40:00 EDT, [facility]/pharmacy #[id number], 183, cm, 05/25/19 15:06:00 EST, Height, 88.3, kg, 08/31/17 3:30:00 EDT, Dry Weight Start Date: 08/24/19 Stop Date: 12/22/19 Status: Ordered oxyCODONE 30 mg oral tablet 2 tablet = 60 mg, By Mouth, Every 3 hours, FAMILY COURT COUNSELLOR checked, # 224 tablet, 0 Refills, Acute 05/15/20 12:01:00 EST, 12/07/19 12:10:00 EDT, [facility]/pharmacy #[id number], may partial fill upon request;, 12/14/19, 183,cm, 11/05/19 9:35:00 EDT, Height, Dry Weight Start Date: 12/07/19 Stop Date: 05/15/20 Status: Ordered pantoprazole 40 mg oral delayed release tablet See Instructions, # 28 tablet, Refills 2 Tot. Refills 2, TAKE 1 TABLET BY MOUTH EVERY DAY, [facility]/pharmacy #[id number] Start Date: 02/26/19 Status: Ordered [...] 01/29/19 17:07:02 EDT, Route to Pharmacy Electronically, [id number], [facility]/pharmacy #[id number], Bubble pack and Delivery Start Date: 01/29/19 Stop Date: 07/28/19 Status: Ordered potassium chloride 10 mEq oral tablet, extended release 1 tablet = 10 mEq, By Mouth, 2 times a day, # 60 tablet, 2 Refills, Maintenance, 10/26/19 13:50:00 EDT, ER Tablet, [facility]/pharmacy #[id number], 183, cm, 05/25/19 15:06:00 EST, Height Start Date: 10/26/19 Stop Date: 01/24/20 Status: Ordered sertraline 100 mg oral tablet 1 tablet = 100 mg, By Mouth, Daily, # 30 tablet, 6 Refills, Maintenance, 07/16/19 14:54:00 EST, Tablet, [facility]/pharmacy #[id number], 183, cm, 05/25/19 15:06:00 EST, [...] 1 TABLET BY MOUTH EVERY DAY, [facility]/pharmacy #[id number] Start Date: 03/26/19 Status: Ordered spironolactone 25 mg oral tablet 25 mg, 1, tablet, By Mouth, Daily, # 30 tablet, Refills 1, Tot. Refills 1, Maintenance, 05/21/19 10:07:00 EST, Route to Pharmacy Electronically, [facility]/pharmacy #[id number], 183, cm, 01/23/19 14:41:00 EDT, Height, 88.3, kg, 08/31/17 3:30:00 EDT, Dry Weight Start Date: 05/21/19 Status: Ordered spironolactone 25 mg oral tablet 25 mg, 1, tablet, By Mouth, Daily, # 30 tablet, Refills 1, Tot. Refills 1, Maintenance, 11/26/19 14:50:00 EDT, Route to Pharmacy Electronically, [facility]/pharmacy #[id number], 183, cm, 11/05/19 9:35:00 EDT, Height, Dry Weight Start Date: 11/26/19 Stop Date: 01/25/20 Status: Ordered sucralfate 1 gm oral tablet 1 Gm, 1, tablet, By Mouth, 3 times a day before meals and bedtime, # 120 tablet, Refills 2, Tot. Refills 2, Soft Stop, 06/18/19 9:36:00 EST, Route to Pharmacy Electronically, [facility]/pharmacy #[id number], 183,cm, 05/25/19 15:06:00 EST, Height, 88.3, kg, 08/31/... Start Date: 06/18/19 Stop Date: 09/16/19 Status: Ordered sucralfate 1 gm oral tablet 1 Gm, 1, tablet, By Mouth, 3 times a day before meals and bedtime, # 120 tablet, Refills 2, Tot. Refills 2, Maintenance, 11/26/19 8:36:00 EDT, Route to Pharmacy Electronically, [facility]/pharmacy #[id number], 183, cm, 11/05/19 9:35:00 EDT, Height, Dry Weight Start Date: 11/26/19 Status: Ordered Vitamin B-12 1000 mcg oral tablet See Instructions, # 28 tablet, Refills 1 Tot. Refills 1, TAKE 1 TABLET BY MOUTH EVERY DAY, [facility]/pharmacy #[id number] Start Date: 03/26/19 Status: Ordered Vitamin B12 1000 mcg oral tablet 1 tablet = 1,000 mcg, By Mouth, Daily, # 30 tablet, 2 Refills, Maintenance, 09/07/19 16:04:00 EDT, Tablet, [facility]/pharmacy #[id number], 183, cm, 05/25/19 15:06:00 EST, [...] Status post coronary artery bypass grafting(Confirmed) 4 3/2/11 Active Hyperlipidemia(Confirmed) Active Hypertension, renal disease(Confirmed) Active [...] Rolando Rubin M.D. at [facility]. 5In the past; states this has resolved Social History Social History Type Response Smoking Status Never smoker entered on: 08/24/16 Sex
--- OUTSIDE RECORDS SUMMARY | 2023-11-18 12:36 | XMS_ITS | Continuity of Care Document ---
Author Organization [facility] Adult Address [address] [place] [address]- Care Team Providers Care Publications Sales Representative Name Role Phone Radha ODONNELL, Hannah Primary Care Physician Encounter [facility] Date(s): 07/07/23 - 08/06/23 [facility] [address] [place] [id number]- Allergies, Adverse Reactions, Alerts Substance Reaction Severity [...] 06/30/23 12:58:00 EST, Route to Pharmacy Electronically, [facility]/pharmacy #[id number], 183, cm, 05/10/23 11:59:00 EST, Height, 71.3, kg, 08/08/21 0:23:00 EDT, Dry Weight Start Date: 06/30/23 Status: Ordered amLODIPine 5 mg oral tablet 1 tablet, By Mouth, Daily, # 84 tablet, 0 Refills, Maintenance, 06/30/23 12:58:00 EST, [facility]/pharmacy#[id number], 183, cm, 05/10/23 11:59:00 EST, Height, 71.3, kg, 08/08/21 0:23:00 EDT, Dry Weight Start Date: 06/30/23 Status: Ordered atorvastatin 40 mg oral tablet 1 tablet, By Mouth, Daily, # 90 tablet, 1 Refills, Maintenance, 07/01/23 15:53:00 EST, [facility]/pharmacy#[id number], 183, cm, 05/10/23 11:59:00 EST, Height, [...] tablet, 5 Refills, Maintenance, 04/21/23 18:36:00 EST, [facility]/pharmacy#[id number], 1 tablet By Mouth Daily,x28 days, 183, cm, 03/28/23 11:43:00 EST, Height, 71.3, kg, :23:00 EDT, Dry Weight Start Date: 04/21/23 Stop Date: 10/06/23 Status: Ordered carvedilol 12.5 mg oral tablet 1, tablet, By Mouth, 2 times a day, # 180 tablet, Refills 0, Tot. Refills 0, Maintenance, 07/01/23 15:49:00 EST, Route to Pharmacy Electronically, [facility]/pharmacy #[id number], 183, cm, 05/10/23 11:59:00 EST, Height, 71.3, kg, 08/08/21 0:23:00 EDT, Dry Weight Start Date: 07/01/23 Status: Ordered cholecalciferol 50,000 intl units oral capsule 1 capsule = 50,000 International_Units, By Mouth, Every week, # 13 capsule, 3 Refills, Maintenance,03/19/23 15:28:00 EDT, Capsule, [facility]/pharmacy #[id number], Partial fill upon patient request if the prescription is for a schedule II opioid drug., 183, cm, 0... Start Date: 03/19/23 Stop Date: 03/13/24 Status: Ordered cholecalciferol 50,000 intl units oral capsule 1 capsule = 50,000 International_Units, By Mouth, Every 7 days, # 13 capsule, 3 Refills, Maintenance, 03/20/23 8:29:00 EST, Capsule, [facility]/pharmacy #[id number], Partial fill upon patient request, 183, cm, 10/08/22 16:18:00 EDT, Height, 71.3, kg, 08/08/21 0:23... Start Date: 03/20/23 Stop Date: 03/14/24 Status: Ordered cloNIDine 0.1 mg oral tablet 0.1 mg, 1, tablet, By Mouth, 3 times a day, for 30 days, # 90 tablet, Refills 0, Tot. Refills 0, Acute 09/01/23 15:38:00 EDT, 08/02/23 15:38:00 EDT, [id number] Partial fill upon patient request if the prescri... Start Date: 08/02/23 Stop Date: 09/01/23 Status: Ordered clopidogrel 75 mg oral tablet 1, tablet, By Mouth, Daily, # 28 tablet, Refills 5, Tot. Refills 5, Maintenance, 06/08/23 14:08:00 EST, [id number] 183, cm, 05/10/23 11:59:00 EST, Height, [...] a day, # 56 tablet, 6 Refills, [facility] STORE [id number], 183, cm, 08/12/21 14:20:00 EDT, Height, 71.3, kg, 08/08/21 0:23:00 EDT, Dry Weight Start Date: 09/26/21 Status: Ordered Eliquis 5 mg oral tablet See Instructions, TAKE 1 TABLET BY MOUTH TWICE A DAY, # 56 tablet, 6 Refills, Maintenance, 06/07/2409:23:00 EST, [facility]/pharmacy #[id number], 183, cm, 05/10/23 11:59:00 EST, Height, 71.3, kg, 08/08/21 0:23:00 EDT, Dry Weight Start Date: 06/07/23 Status: Ordered furosemide 40 mg oral tablet 1, tablet, By Mouth, 2 times a day, # 168 tablet, Refills 1, Tot. Refills 1, Maintenance, 06/30/23 12:20:00 EST, Route to Pharmacy Electronically, [facility]/pharmacy #[id number], 183, cm, 05/10/23 11:59:00 EST, [...] tablet, 0 Refills, Maintenance, 07/01/23 15:48:00 EST, [facility]/pharmacy #[id number], 183, cm, 05/10/23 11:59:00 EST, Height, 71.3, kg, 08/08/21 0:23:00 EDT, Dry Weight Start Date: 07/01/23 Status: Ordered isosorbide mononitrate 60 mg oral tablet, extended release 1 tablet, By Mouth, Daily in AM, # 28 tablet, 5 Refills, Maintenance, 04/21/23 18:37:00 EST, [facility]/pharmacy #[id number], 183, cm, 03/28/23 11:43:00 EST, Height, 71.3, kg, 08/08/21 0:23:00 EDT, Dry Weight Start Date: 04/21/23 Stop Date: 10/06/23 Status: Ordered Mylanta Maximum Strength oral suspension 5 mL, By Mouth, 4 times a day, PRN for control of stomach acid, # 200 mL, 1 Refills, Maintenance, 08/12/21 13:46:00 EDT, Suspension, [facility]/pharmacy #[id number], Partial fill upon patient request if the prescription is for a schedule II opioid drug., 5 mL By M... Start Date: 08/12/21 Status: Ordered Narcan 4 mg/0.1 mL nasal spray = 4 mg, Nares, Both, Once, may repeat every 2 to 3 minutes until patient responds, # 1 each, 0 Refills, Soft Stop, 05/14/23 10:41:00 EST, [facility]/pharmacy #[id number], Partial fill upon patient request if the prescription is for a schedule II opioid drug., 183,... Start Date: 05/14/23 Status: Ordered nitroglycerin 0.4 mg sublingual tablet 1 tablet = 0.4 mg, Sublingual, Every 5 minutes, PRN Chest Pain, # 25 tablet, 3 Refills, Maintenance, 08/24/19 15:40:00 EDT, [facility]/pharmacy #[id number], 183, cm, 05/25/19 15:06:00 EST, Height, 88.3, kg, 08/31/17 3:30:00 EDT, Dry Weight Start Date: 08/24/19 Stop Date: 12/22/19 Status: Ordered oxyCODONE 30 mg oral tablet See Instructions, 1 tablet By Mouth Every 5 hours 7 days total 5 a day fill 08/03/2023, # 35 tablet,0 Refills, Maintenance, 08/02/23 15:35:00 EDT, [facility]/pharmacy #[id number], may partial fill upon request; fill 07/13/2023, 183, cm, 05/10/23 11:59:00 EST, [facility]... Start Date: 08/02/23 Status: Ordered pantoprazole 40 mg oral delayed release tablet 1 tablet, By Mouth, Daily, # 28 tablet, 4 Refills, Maintenance, 06/24/23 7:44:00 EST, 183, cm, 05/10/23 11:59:00 EST, Height, 71.3, kg, 08/08/21 0:23:00 EDT, Dry Weight Start Date: 06/24/23 Status: Ordered Potassium Chloride (Ari-Afig-Aco 10) 10 mEq oral tablet, extended release See Instructions, TAKE 2 TABLETS BY MOUTH EVERY MORNING AND TAKE 1 TABLET EVERY EVENING, # 270 tablet, 1 Refills, Maintenance, 07/01/23 15:52:00 EST, [facility]/pharmacy #[id number], 183, cm, 05/10/23 11:59:00 EST, Height, 71.3, kg, 08/08/21 0:23:00 EDT, Dry Weight Start Date: 07/01/23 Status: Ordered sertraline 100 mg oral tablet 1 tablet, By Mouth, Daily, # 84 tablet, 0 Refills, Maintenance, 06/30/23 12:22:00 EST, [facility]/pharmacy#[id number], 183, cm, 05/10/23 11:59:00 EST, Height, 71.3, kg, 08/08/21 0:23:00 EDT, Dry Weight Start Date: 06/30/23 Stop Date: 09/22/23 Status: Ordered sertraline 100 mg oral tablet See Instructions, TAKE 1 TABLET BY MOUTH EVERY DAY, # 28 tablet, 5 Refills, Maintenance, 11/30/22 15:39:00 EDT, [id number], 183, cm, 10/08/22 16:18:00 EDT, Height, 71.3, kg, 08/08/21 0:23:00 EDT, Dry Weight Start Date: 11/30/22 Status: Ordered spironolactone 25 mg oral tablet 1, tablet, By Mouth, Daily, # 28 tablet, Refills 4, Maintenance, 06/24/23 7:44:00 EST, Route to Pharmacy Electronically, [id number], 183, cm, 05/10/23 11:59:00 EST, Height, 71.3, kg, 08/08/21 0:23:00 EDT, Dry Weight Start Date: 06/24/23 Status: Ordered sucralfate 1 gm oral tablet 1, tablet, By Mouth, 3 times a day before meals, AND BEDTIME., # 112 tablet, Refills 5, Maintenance, 02/04/23 16:32:00 EDT, Route to Pharmacy Electronically, [id number], 183, cm, 10/08/22 16:18:00 EDT, Height, 71.3, kg, 08/08/21 0:23:00 EDT, Dry... Start Date: 02/04/23 Status: Ordered Vitamin B-12 1000 mcg oral tablet 1, tablet, By Mouth, Daily, # 28 tablet, Refills 11, Tot. Refills 11, Maintenance, 04/21/23 18:37:00 EST, Route to Pharmacy Electronically, [facility]/pharmacy #[id number], 183, cm, 03/28/23 11:43:00 EST, [...] artery disease by Rolando Rubin M.D. at [facility]. 4In the past; states this has resolved [...] Feliciano RN Position: [facility] SN RN Member Role: Primary Care Nurse Name: David Gonzalez MD Position: [facility] Renal MD Member Role: Lifetime Consulting Physician Address: Address: [address] [place] [address] [address] [facility] [place] [address]- [place] Name: Hannah Garcia NP Position: [facility] PCO Associate Professional Member Role: PCP Address: Address: [address] [place] [address], [address] [place] [address]- [place] Name: Eduin Arias MD Position: [facility] Renal MD Member Role: Lifetime Consulting Physician Address: Address: [address] [place] [address], [address] [place] [address]- [place] Name: Ana Herrera RN Position: [facility] AMB Nurse Member Role: Primary Care Nurse Name: Carlos Montez RN Position: [facility] Outreach Member Role: Primary Care [...] Guevara RN Position: [facility] SN [...] Member Role: Lifetime Consulting Physician Address: Address: [address] [place] [address] [facility] [address] Name: Yesica Serna RN Position: [facility] OB RN Member Role: Primary Care Nurse Name: Jesusita Lou RN Position: [facility] OB RN Member Role: Primary Care Nurse Name: Husam Elizalde RN Position: [facility] RN Member Role: Primary Care Nurse Name: Marshall Byrd RN Position: [facility] RN Member Role: Primary Care Nurse Care Team Related Persons Name: MELLODUTCH HURTADO Address: [place] [address] Name: ALL AYERS Address: home [address] [place], [place] Name: ALL MANZANARES Address: [address] [place] [address] Name: CHRISTEN GRIMALDO Address: [address] [place] [address]
--- OUTSIDE RECORDS SUMMARY | 2023-11-18 12:36 | XMS_ITS | Continuity of Care Document ---
Author Organization [facility] Adult Address [address] [place] [address]- Care Team Providers Care Technical Instructor Course Developer Name Role Phone Radha ODONNELL, Hannah Primary Care Physician Encounter [facility] Date(s): 02/18/20 - 03/19/20 [facility] [address] [place] [id number]- [facility] Allergies, Adverse Reactions, Alerts Substance [...] Electronically, [facility]/pharmacy #[id number], 183, cm, 02/05/20 12:53:... Start Date: 03/07/20 Status: Ordered amLODIPine 5 mg oral tablet 5 mg, 1, tablet, By Mouth, Daily, # 30 tablet, Refills 5, Tot. Refills 5, Maintenance, 11/26/19 14:40:00 EDT, Route to Pharmacy Electronically, [facility]/pharmacy #[id number], 183, cm, 11/05/19 9:35:00 [...] 10/26/19 11:37:00 EDT, Route to Pharmacy Electronically, [facility]/pharmacy #[id number], 183, cm, 05/25/19 15:06:00EST, Height Start Date: 10/26/19 Status: Ordered clopidogrel 75 mg oral tablet 75 mg, 1, tablet, By Mouth, Daily, # 30 tablet, Refills 5, Tot. Refills 5, Maintenance, 12/24/19 13:07:00 EDT, Route to Pharmacy Electronically, [facility]/pharmacy #[id number], 183, cm, 11/05/19 9:35:00 [...] 11/22/17 13:28:22 EDT, Route to Pharmacy Electronically, [id number], [facility]/pharmacy #[id number] Start Date: 11/22/17 Stop [...] 02/06/20 10:28:00 EDT, Route to Pharmacy Electronically, [facility]/pharmacy #[id number], [...] 09/11/19 14:15:00 EDT, Route to Pharmacy Electronically, [facility]/pharmacy #[id number], 183, cm, 05/25/19 15:06:00 EST, Height, Dry Weight Start Date: 09/11/19 Stop Date: 03/09/20 Status: Ordered NIFEdipine 30 mg oral tablet, extended release 30 mg, 1, tablet, By Mouth, Daily, Bubble Pack and Delivery, # 30 tablet, Refills 3, Tot. Refills 3, Maintenance, 03/27/18 8:38:30 EST, Route to Pharmacy Electronically, [id number], [facility]/pharmacy #[id number] Start Date: 03/27/18 Status: [...] mg, By Mouth, Every 3 hours, MANAGER ANIMATION checked, # 224 tablet, 0 Refills, Acute 05/15/20 14:24:00 EST, 03/06/20 20:09:00 EDT, [facility]/pharmacy #[id number], may partial fill upon [...] Refills, Maintenance, 02/06/20 16:13:00 EDT, ER Tablet, [facility]/pharmacy #[id number], 183, cm, 02/05/20 12:53:00 EDT, Height Start Date: 02/06/20 Status: Ordered sertraline 100 mg oral tablet 1 tablet = 100 mg, By Mouth, Daily, # 90 tablet, 1 Refills, Maintenance, 02/18/20 14:47:00 EDT, [id number] Bubble [facility] and delivery, 183, cm, 02/05/20 12:53:00 EDT, Height Start Date: 02/18/20 Stop Date: 08/16/20 Status: Ordered spironolactone 25 mg oral tablet 25 mg, 1, tablet, By Mouth, Daily, # 30 tablet, Refills 1, Tot. Refills 1, Soft Stop, 02/18/20 14:47:00 EDT, [id number] 183, cm, 02/05/20 12:53:00 EDT, Height Start Date: 02/18/20 Stop Date: 04/18/20 Status: Ordered sucralfate 1 gm oral tablet 1 Gm, 1, tablet, By Mouth, 3 times a day before meals and bedtime, # 120 tablet, Refills 2, Tot. Refills 2, Maintenance, 02/13/20 15:20:00 EDT, [id number] 183, cm, 02/05/20 12:53:00 EDT, Height, Dry Weight Start Date: 02/13/20 Status: Ordered Vitamin B-12 1000 mcg oral tablet 1,000 mcg, 1, tablet, By Mouth, Daily, # 30 tablet, Refills 1, Tot. Refills 1, Soft Stop, 02/18/20 14:47:00 EDT, [id number] 183, cm, 02/05/20 12:53:00 EDT, Height [...] disease by Rolando Rubin M.D. at [facility]. 5In the past; states this has resolved Social History Social History Type Response Smoking Status Never smoker entered on: 08/24/16 Sex
--- OUTSIDE RECORDS SUMMARY | 2023-11-18 12:36 | XMS_ITS | Continuity of Care Document ---
Author Organization [facility] Adult Address [address] [place] [address]- Care Team Providers Care Telephone Operator Receptionist Name Role Phone Hannah Garcia NP Primary Care Physician [phone] Encounter [facility] Date(s): 08/05/20 - 08/12/[address] [address]- Encounter Diagnosis Chronic pain syndrome(Discharge Diagnosis) - 08/05/20 Gout(Discharge Diagnosis) - 08/05/20 Hypertension, renal disease(Discharge Diagnosis) - 08/05/20 Attending Physician: Hannah Garcia NP Allergies, Adverse [...] Details, Route to Pharmacy Electronically, [facility]/pharmacy #[id number], 183, cm, 05/12/20 9:35:00... Start Date: 05/15/20 Status: Ordered amLODIPine 5 mg oral tablet 5 mg, 1, tablet, By Mouth, Daily, # 30 tablet, Refills 5, Tot. Refills 5, Maintenance, 04/29/20 13:47:00 EST, Route to Pharmacy Electronically, [facility]/pharmacy #[id number], 183, cm, 02/05/20 12:53:00 EDT, Height Start Date: 04/29/20 Stop Date: 10/26/20 Status: Ordered atorvastatin 40 mg oral tablet See Instructions, TAKE 1 TABLET BY MOUTH EVERY DAY, # 28 tablet, 5 Refills, Soft Stop, 07/05/20 11:24:00 EST, [facility]/pharmacy #[id number], 183, cm, 05/12/20 9:35:00 EST, Height Start Date: 07/05/20 Status: Ordered buPROPion 150 mg/24 hours (XL) oral tablet, extended release 1 tablet = 150 mg, By Mouth, Every 24 hours, # 30 tablet, 5 Refills, Maintenance, 08/01/20 9:50:00 EDT, ER Tablet, [facility]/pharmacy #[id number], Bubble pack and delivery, 1 tablet By Mouth Every 24 hours, 183,cm, 05/12/20 9:35:00 EST, Height Start Date: 08/01/20 Status: Ordered carvedilol 12.5 mg oral tablet 12.5 mg, 1, tablet, By Mouth, 2 times a day, # 60 tablet, Refills 2, Tot. Refills 2, Soft Stop, 07/01/20 13:57:00 EST, Route to Pharmacy Electronically, [facility]/pharmacy #[id number], 183, cm, 05/12/20 9:35:00 EST, Height Start Date: 07/01/20 Status: Ordered clopidogrel 75 mg oral tablet 75 mg, 1, tablet, By Mouth, Daily, # 30 tablet, Refills 5, Tot. Refills 5, Maintenance, 05/15/20 15:55:00 EST, Route to Pharmacy Electronically, [facility]/pharmacy #[id number], 183, cm, 05/12/20 9:35:00 EST, Height Start Date: 05/15/20 Status: Ordered [facility] B-12 1,000 MCG TABLET See Instructions, # 30 tablet, TAKE 1 TABLET BY MOUTH EVERY DAY, [facility]/pharmacy #[id number] Start Date: 03/20/19 Status: Ordered docusate sodium 100 mg oral capsule 100 mg, 1, capsule, By Mouth, 3 times a day, Bubble Pack and Delivery, # 90 capsule, Refills 5, Tot. Refills 5, Maintenance, 11/22/17 13:28:22 EDT, Route to Pharmacy Electronically, [id number], [facility]/pharmacy #[id number] Start Date: 11/22/17 Stop Date: 05/21/18 Status: Ordered Eliquis 5 mg oral tablet 1 tablet = 5 mg, By Mouth, 2 times a day, # 60 tablet, 5 Refills, Maintenance, 08/01/20 11:10:00 EDT, Tablet, [facility]/pharmacy #[id number], 183, cm, 05/12/20 9:35:00 EST, Height Start Date: 08/01/20 Status: Ordered furosemide 40 mg oral tablet 40 mg, 1, tablet, By Mouth, 2 times a day, # 60 tablet, Refills 2, Tot. Refills 2, Soft Stop, 08/03/20 14:35:00 EDT, Route to Pharmacy Electronically, [facility]/pharmacy #[id number], this replaces previous script. Pt is on 2 tabs daily, 183, cm, 05/12/20 9:35:00... Start Date: 08/03/20 Stop Date: 11/01/20 Status: Ordered hydrALAZINE 50 mg oral tablet 1 tablet = 50 mg, By Mouth, 3 times a day, dose change, # 90 tablet, 1 Refills, Maintenance, 09/10/19 10:37:00 EDT, Tablet, [facility]/pharmacy #[id number], 183, cm, 05/25/19 15:06:00 EST, Height Start Date: 09/10/19 Stop Date: 11/09/19 Status: Ordered isosorbide mononitrate 60 mg oral tablet, extended release 60 mg, 1, tablet, By Mouth, Daily in AM, # 30 tablet, Refills 5, Tot. Refills 5, Soft Stop, 05/03/20 17:20:00 EST, Route to Pharmacy Electronically, [facility]/pharmacy #[id number], 183, cm, 02/05/20 12:53:00 EDT, Height Start Date: 05/03/20 Stop Date: 10/30/20 Status: Ordered NIFEdipine 30 mg oral tablet, extended release 30 mg, 1, tablet, By Mouth, Daily, Bubble Pack and Delivery, # 30 tablet, Refills 3, Tot. Refills 3, Maintenance, 03/27/18 8:38:30 EST, Route to Pharmacy Electronically, [id number], [facility]/pharmacy #[id number] Start Date: 03/27/18 Status: Ordered nitroglycerin 0.4 mg sublingual tablet 1 tablet = 0.4 mg, Sublingual, Every 5 minutes, PRN Chest Pain, # 25 tablet, 3 Refills, Maintenance, 08/24/19 15:40:00 EDT, [facility]/pharmacy #[id number], 183, cm, 05/25/19 15:06:00 EST, Height, 88.3, kg, 08/31/17 3:30:00 EDT, Dry Weight Start Date: 08/24/19 Stop Date: 12/22/19 Status: Ordered oxyCODONE 30 mg oral tablet 2 tablet = 60 mg, By Mouth, Every 3 hours, GUARD DRIVER checked, # 224 tablet, 0 Refills, Acute 05/15/21 15:53:00 EST, 07/10/20 20:59:00 EST, [facility]/pharmacy #[id number], may partial fill upon request;, 07/11/20, 183,cm, 05/12/20 9:35:00 EST, Height Start Date: 07/10/20 Stop Date: 05/15/21 Status: Ordered oxyCODONE 30 mg oral tablet 2 tablet = 60 mg, By Mouth, Every 3 hours, GUARD DRIVER checked, # 224 tablet, 0 Refills, Acute 05/15/21 14:21:00 EST, 08/07/20 17:01:00 EDT, [facility]/pharmacy #[id number], may partial fill upon request;, 08/08/20, 183,cm, 08/05/20 8:57:00 EDT, Height Start Date: 08/07/20 Stop Date: 05/15/21 Status: Ordered pantoprazole 40 mg oral delayed release tablet See Instructions, # 28 tablet, Refills 2 Tot. Refills 2, TAKE 1 TABLET BY MOUTH EVERY DAY, [id number] Start Date: 02/26/19 Status: Ordered pantoprazole [...] Maintenance, 07/02/20 8:26:00 EST, ER Tablet, [facility]/pharmacy #[id number], 183, cm, 05/12/20 9:35:00 EST, Height Start Date: 07/02/20 Status: Ordered sertraline 100 mg oral tablet 1 tablet = 100 mg, By Mouth, Daily, # 90 tablet, 1 Refills, Maintenance, 08/01/20 11:10:00 EDT, Tablet, [facility]/pharmacy #[id number], Bubble pack and delivery, 183, cm, 05/12/20 9:35:00 EST, Height Start Date: 08/01/20 Stop Date: 01/28/21 Status: Ordered spironolactone 25 mg oral tablet 25 mg, 1, tablet, By Mouth, Daily, # 30 tablet, Refills 2, Tot. Refills 2, Soft Stop, 07/02/20 8:26:00 EST, Route to Pharmacy Electronically, [facility]/pharmacy #[id number], 183, cm, 05/12/20 9:35:00 EST, Height Start Date: 07/02/20 Stop Date: 09/30/20 Status: Ordered sucralfate 1 gm oral tablet 1 Gm, 1, tablet, By Mouth, 3 times a day before meals and bedtime, # 120 tablet, Refills 2, Tot. Refills 2, Maintenance, 08/01/20 9:52:00 EDT, Route to Pharmacy Electronically, [facility]/pharmacy #[id number], 183, cm, 05/12/20 9:35:00 EST, Height Start Date: 08/01/20 Status: Ordered Vitamin B-12 1000 mcg oral tablet 1,000 mcg, 1, tablet, By Mouth, Daily, # 30 tablet, Refills 2, Tot. Refills 2, Soft Stop, 07/02/20 8:26:00 EST, Route to Pharmacy Electronically, [facility]/pharmacy #[id number], 183, cm, 05/12/20 [...] artery disease by Rolando Rubin M.D. at [facility]. 5In the past; states this has resolved Diagnosis Diagnosis Type Effective Dates Health Status Cl inical Service Informant Chronic pain syndrome Discharge Diagnosis 08/05/20 Gout Discharge Diagnosis 08/05/20 Hypertension, renal disease Discharge Diagnosis 08/05/20 Vital Signs Most recent to oldest [Reference Range]: 1 Height 183 cm (08/05/20 8:57 AM) Social History Social History Type Response Smoking Status Never smoker entered on: 08/24/16 Sex
--- OUTSIDE RECORDS SUMMARY | 2023-11-18 12:36 | XMS_ITS | Continuity of Care Document ---
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 Name Role Phone Radha ODONNELL, Hannah Primary Care Physician Encounter [facility] Date(s): 08/10/23 - 09/09/23 [facility] [address] [place] [id number]- Allergies, Adverse Reactions, Alerts Substance Reaction Severity [...] 06/30/23 12:58:00 EST, Route to Pharmacy Electronically, [facility]/pharmacy #[id number], 183, cm, 05/10/23 11:59:00 EST, Height, 71.3, kg, 08/08/21 0:23:00 EDT, Dry Weight Start Date: 06/30/23 Status: Ordered amLODIPine 5 mg oral tablet 1 tablet, By Mouth, Daily, # 84 tablet, 0 Refills, Maintenance, 06/30/23 12:58:00 EST, [facility]/pharmacy#[id number], 183, cm, 05/10/23 11:59:00 EST, Height, 71.3, kg, 08/08/21 0:23:00 EDT, Dry Weight Start Date: 06/30/23 Status: Ordered atorvastatin 40 mg oral tablet 1 tablet, By Mouth, Daily, # 90 tablet, 1 Refills, Maintenance, 07/01/23 15:53:00 EST, [facility]/pharmacy#[id number], 183, cm, 05/10/23 11:59:00 EST, [...] tablet, 5 Refills, Maintenance, 04/21/23 18:36:00 EST, [facility]/pharmacy#[id number], 1 tablet By Mouth Daily,x28 days, 183, cm, 03/28/23 11:43:00 EST, Height, 71.3, kg, :23:00 EDT, Dry Weight Start Date: 04/21/23 Stop Date: 10/06/23 Status: Ordered carvedilol 12.5 mg oral tablet 1, tablet, By Mouth, 2 times a day, # 180 tablet, Refills 0, Tot. Refills 0, Maintenance, 07/01/23 15:49:00 EST, Route to Pharmacy Electronically, [facility]/pharmacy #[id number], 183, cm, 05/10/23 11:59:00 EST, Height, 71.3, kg, 08/08/21 0:23:00 EDT, Dry Weight Start Date: 07/01/23 Status: Ordered cholecalciferol 50,000 intl units oral capsule 1 capsule = 50,000 International_Units, By Mouth, Every week, # 13 capsule, 3 Refills, Maintenance,03/19/23 15:28:00 EDT, Capsule, [facility]/pharmacy #[id number], Partial fill upon patient request if the prescription is for a schedule II opioid drug., 183, cm, 0... Start Date: 03/19/23 Stop Date: 03/13/24 Status: Ordered cholecalciferol 50,000 intl units oral capsule 1 capsule = 50,000 International_Units, By Mouth, Every 7 days, # 13 capsule, 3 Refills, Maintenance, 03/20/23 8:29:00 EST, Capsule, [facility]/pharmacy #[id number], Partial fill upon patient request, 183, cm, 10/08/22 16:18:00 EDT, Height, 71.3, kg, 08/08/21 0:23... Start Date: 03/20/23 Stop Date: 03/14/24 Status: Ordered cloNIDine 0.1 mg oral tablet See Instructions, TAKE 1 TABLET BY MOUTH 3 TIMES A DAY, # 84 tablet, Refills 0, Maintenance, 08/10/23 16:24:00 EDT, Instructions Replace Required Details, Route to Pharmacy Electronically, [id number], 183, cm, 05/10/23 11:59:00 EST, Height Start Date: 08/10/23 Status: Ordered clopidogrel 75 mg oral tablet 1, tablet, By Mouth, Daily, # 28 tablet, Refills 5, Tot. Refills 5, Maintenance, 06/08/23 14:08:00 EST, Route to Pharmacy Electronically, [facility]/pharmacy #[id number], 183, cm, 05/10/23 11:59:00 [...] a day, # 56 tablet, 6 Refills, [id number], 183, cm, 08/12/21 14:20:00 EDT, Height, 71.3, kg, 08/08/21 0:23:00 EDT, Dry Weight Start Date: 09/26/21 Status: Ordered Eliquis 5 mg oral tablet See Instructions, TAKE 1 TABLET BY MOUTH TWICE A DAY, # 56 tablet, 6 Refills, Maintenance, 06/07/2409:23:00 EST, [facility]/pharmacy #[id number], 183, cm, 05/10/23 11:59:00 EST, Height, 71.3, kg, 08/08/21 0:23:00 EDT, Dry Weight Start Date: 06/07/23 Status: Ordered furosemide 40 mg oral tablet 1, tablet, By Mouth, 2 times a day, # 168 tablet, Refills 1, Tot. Refills 1, Maintenance, 06/30/23 12:20:00 EST, [id number], cm, 05/10/23 11:59:00 EST, [...] tablet, 0 Refills, Maintenance, 07/01/23 15:48:00 EST, [facility]/pharmacy #[id number], 183, cm, 05/10/23 11:59:00 EST, Height, 71.3, kg, 08/08/21 0:23:00 EDT, Dry Weight Start Date: 07/01/23 Status: Ordered isosorbide mononitrate 60 mg oral tablet, extended release 1 tablet, By Mouth, Daily in AM, # 28 tablet, 5 Refills, Maintenance, 04/21/23 18:37:00 EST, [facility]/pharmacy #[id number], 183, cm, 03/28/23 [...] Start Date: 06/24/23 Status: Ordered Potassium Chloride (Vck-Ylzl-Ips 10) 10 mEq oral tablet, extended release See Instructions, TAKE 2 TABLETS BY MOUTH EVERY MORNING AND TAKE 1 TABLET EVERY EVENING, # 270 tablet, 1 Refills, Maintenance, 07/01/23 15:52:00 EST, [facility]/pharmacy #[id number], 183, cm, 05/10/23 11:59:00 EST, Height, 71.3, kg, 08/08/21 0:23:00 EDT, Dry Weight Start Date: 07/01/23 Status: Ordered sertraline 100 mg oral tablet 1 tablet, By Mouth, Daily, # 84 tablet, 0 Refills, Maintenance, 09/01/23 11:58:00 EDT, [facility]/pharmacy#[id number], 183, cm, 05/10/23 11:59:00 EST, Height Start Date: 09/01/23 Stop Date: 11/24/23 Status: Ordered sertraline 100 mg oral tablet See Instructions, TAKE 1 TABLET BY MOUTH EVERY DAY, # 28 tablet, 5 Refills, Maintenance, 11/30/22 15:39:00 EDT, [id number], 183, cm, 10/08/22 16:18:00 EDT, Height, 71.3, kg, 08/08/21 0:23:00 EDT, Dry Weight Start Date: 11/30/22 Status: Ordered spironolactone 25 mg oral tablet 1, tablet, By Mouth, Daily, # 28 tablet, Refills 4, Maintenance, 06/24/23 7:44:00 EST, Route to Pharmacy Electronically, [facility], 183, cm, 05/10/23 11:59:00 EST, Height, 71.3, kg, 08/08/21 0:23:00 EDT, Dry Weight Start Date: 06/24/23 Status: Ordered sucralfate 1 gm oral tablet 1, tablet, By Mouth, 3 times a day before meals, AND BEDTIME., # 112 tablet, Refills 5, Maintenance, 02/04/23 16:32:00 EDT, Route to Pharmacy Electronically, [facility], 183, cm, 10/08/22 16:18:00 EDT, Height, 71.3, kg, 08/08/21 0:23:00 EDT, Dry... Start Date: 02/04/23 Status: Ordered Vitamin B-12 1000 mcg oral tablet 1, tablet, By Mouth, Daily, # 28 tablet, Refills 11, Tot. Refills 11, Maintenance, 04/21/23 18:37:00 EST, Route to Pharmacy Electronically, [facility]/pharmacy #[id number], 183, cm, 03/28/23 [...] disease by Rolando Rubin M.D. at [facility]. 4In the past; states this has resolved [...] Wilner Feliciano RN Position: [facility] SN RN Member Role: Primary Care Nurse Name: David Gonzalez MD Position: [facility] Renal MD Member Role: Lifetime Consulting Physician Address: Address: [address] [place] [address] [address] [place] [address]- Name: Hannah Garcia NP Position: [facility] PCO Associate Professional Member Role: PCP Address: Address: [address] [place] [address], [address] [place] [address]- Name: Eduin Arias MD Position: [facility] Renal MD Member Role: Lifetime Consulting Physician Address: Address: [address] [place] [address], [address] [address]- [place] Name: Ana Herrera RN Position: [facility] AMB Nurse Member Role: Primary Care Nurse Name: Carlos Montez RN Position: [facility] Outreach Member Role: Primary Care Nurse Name: Cadence Quach RN Position: [facility] OB RN Member Role: Primary Care Nurse Name: Maggy Tsang RN Position: [facility] RN Member Role: Primary Care Nurse Name: Keyla Keys RN Position: [facility] SN RN Member Role: Primary Care Nurse Name: Марина Guevara RN Position: [facility] SN RN [...] Member Role: Lifetime Consulting Physician Address: Address: [address] [place] [address] [facility] [address] Name: Yesica Serna RN Position: [facility] OB RN Member Role: Primary Care Nurse Name: Jesusita Lou RN Position: [facility] OB RN Member Role: Primary Care Nurse Name: Husam Elizalde RN Position: [facility] RN Member Role: Primary Care Nurse Name: Marshall Byrd RN Position: [facility] RN Member Role: Primary Care Nurse Care Team Related Persons Name: ROXANNADUTCH HURTADO Address: [place], [place] Name: ALL AYERS Address: home [address], [place] Name: ALL MANZANARES Address: home [address], [place] Name: CHRISTEN GRIMALDO Address: home [address], [place]
--- OUTSIDE RECORDS SUMMARY | 2023-11-18 12:36 | XMS_ITS | Continuity of Care Document ---
Author Organization [facility] Address [address] [place] [address]- Care Team Providers Care [employer] Name Role Phone Hannah Garcia NP Primary Care Physician [place] [facility] [place] 08[place]/19 [facility] [address] [place] [id number] [facility] Encounter Diagnosis CAD (coronary artery disease)(Discharge Diagnosis) - 08/24/19 Atrial fibrillation(Discharge Diagnosis) - 08/24/19 Chronic pain syndrome(Discharge Diagnosis) - 08/24/19 Hypertensive renal disease(Discharge Diagnosis) - 08/24/19 Attending Physician: Hannah Garcia NP Allergies, Adverse [...] tablet, Refills 2, Tot. Refills 2,Soft Stop, 06/28/19 16:11:00 EST, Instructions Replace Required Details, Route to Pharmacy Electronically, [facility]/pharmacy #[id number], 183, cm, 05/25/19 15:06:... Start Date: 06/28/19 Status: Ordered amLODIPine 5 mg oral tablet See Instructions, # 28 tablet, Refills 2 Tot. Refills 2, TAKE 1 TABLET BY MOUTH EVERY DAY, [facility]/pharmacy #[id number] Start Date: 03/26/19 Status: Ordered amLODIPine 5 mg oral tablet 5 mg, 1, tablet, By Mouth, Daily, # 30 tablet, Refills 5, Tot. Refills 5, Maintenance, 06/18/19 14:33:00 EST, [id number], cm, 05/25/19 15:06:00 EST, Height, 88.3, kg, 08/31/17 3:30:00 EDT, Dry Weight Start Date: 06/18/19 Stop Date: 12/15/19 Status: Ordered atorvastatin 40 mg oral tablet See Instructions, TAKE 1 TABLET BY MOUTH EVERY DAY, # 28 tablet, 5 Refills, Soft Stop, 08/13/19 11:46:00 EDT, [facility]/pharmacy #[id number], 183, cm, 05/25/19 15:06:00 EST, Height, 88.3, kg, 08/31/17 3:30:00 EDT, Dry Weight Start Date: 08/13/19 Status: Ordered buPROPion 150 mg/24 hours (XL) oral tablet, extended release 1 tablet = 150 mg, By Mouth, Every 24 hours, # 30 tablet, 5 Refills, Maintenance, 05/21/19 10:08:00EST, ER Tablet, [facility]/pharmacy #[id number], 1 tablet By Mouth Every 24 hours, 183, cm, 01/23/19 14:41:00 EDT, Height, 88.3, kg, 08/31/17 3:30:00 EDT, Dry Weight Start Date: 05/21/19 Status: Ordered buPROPion 150 mg/24 hours (XL) oral tablet, extended release 1 tablet = 150 mg, By Mouth, Every 24 hours, # 30 tablet, 5 Refills, Maintenance, 05/20/19 10:41:00EST, ER Tablet, [facility]/pharmacy #[id number], Bubble pack and delivery, 1 tablet By Mouth Every 24 hours, 183, cm, 01/23/19 14:41:00 EDT, Height, 88.3, kg, 08/31... Start Date: 05/20/19 Status: Ordered carvedilol 12.5 mg oral tablet 12.5 mg, 1, tablet, By Mouth, 2 times a day, # 60 tablet, Refills 5, Tot. Refills 5, Soft Stop, 03/25/19 11:48:47 EST, Route to Pharmacy Electronically, [id number], [facility]/pharmacy #[id number] Start Date: 03/25/19 Status: Ordered clopidogrel 75 mg oral tablet 75 mg, 1, tablet, By Mouth, Daily, # 30 tablet, Refills 5, Tot. Refills 5, Maintenance, 07/16/19 14:53:00 EST, Route to Pharmacy Electronically, [facility]/pharmacy #[id number], 183, cm, 05/25/19 15:06:00 EST, Height, 88.3, kg, 08/31/17 3:30:00 EDT, Dry Weight Start Date: 07/16/19 Status: Ordered [facility] B-12 1,000 MCG TABLET See Instructions, # 30 tablet, TAKE 1 TABLET BY MOUTH EVERY DAY, [facility]/pharmacy #[id number] Start Date: 03/20/19 Status: Ordered docusate sodium 100 mg oral capsule 100 mg, 1, capsule, By Mouth, 3 times a day, Bubble Pack and Delivery, # 90 capsule, Refills 5, Tot. Refills 5, Maintenance, 11/22/17 13:28:22 EDT, Route to Pharmacy Electronically, [id number], [facility]/pharmacy #[id number] Start Date: 11/22/17 Stop Date: 05/21/18 Status: Ordered Eliquis 5 mg oral tablet 1 tablet = 5 mg, By Mouth, 2 times a day, # 60 tablet, 5 Refills, Maintenance, 05/21/19 10:06:00 EST, Tablet, [facility]/pharmacy #[id number], 183, cm, 01/23/19 14:41:00 EDT, Height, 88.3, kg, 08/31/17 3:30:00 EDT, Dry Weight Start Date: 05/21/19 Status: Ordered Eliquis 5 mg oral tablet See Instructions, # 56 tablet, Refills 3 Tot. Refills 3, TAKE 1 TABLET BY MOUTH TWICE A DAY, [facility]/pharmacy #[id number] Start Date: 01/30/19 Status: Ordered furosemide 40 mg oral tablet See Instructions, TAKE 1 TABLET BY MOUTH EVERY DAY, # 28 tablet, Refills 1, Tot. Refills 1, Soft Stop, 04/24/19 8:38:35 EST, Instructions Replace Required Details, Route to Pharmacy Electronically, [id number], [facility]/pharmacy #4... Start Date: 04/24/19 Status: Ordered furosemide 40 mg oral tablet 40 mg, 1, tablet, By Mouth, Daily, # 30 tablet, Refills 5, Tot. Refills 5, Maintenance, 06/18/19 14:33:00 EST, Route to Pharmacy Electronically, [facility]/pharmacy #[id number], 183, cm, 05/25/19 15:06:00 EST, Height, 88.3, kg, 08/31/17 3:30:00 EDT, Dry Weight Start Date: 06/18/19 Stop Date: 12/15/19 Status: Ordered hydrALAZINE 25 mg oral tablet See Instructions, 1 TABLET BY MOUTH 2 TIMES A DAY, # 56 tablet, Refills 1, Tot. Refills 1, Soft Stop, 04/24/19 8:38:36 EST, Instructions Replace Required Details, Route to Pharmacy Electronically, [id number], [facility]/pharmacy #44... Start Date: 04/24/19 Status: Ordered hydrALAZINE 25 mg oral tablet 25 mg, 1, tablet, By Mouth, 2 times a day, # 60 tablet, Refills 5, Tot. Refills 5, Maintenance, 06/18/19 14:34:00 EST, Route to Pharmacy Electronically, [facility]/pharmacy #[id number], 183, cm, 05/25/19 15:06:00EST, Height, 88.3, kg, 08/31/17 3:30:00 EDT, Dry We... Start Date: 06/18/19 Stop Date: 12/15/19 Status: Ordered isosorbide mononitrate 60 mg oral tablet, extended release See Instructions, 1 TABLET BY MOUTH DAILY IN AM,, # 28 tablet, Refills 1, Tot. Refills 1, Soft Stop, 06/28/19 16:11:00 EST, Instructions Replace Required Details, Route to Pharmacy Electronically, [facility]/pharmacy #[id number], 183, cm, 05/25/19 15:06:00 EST, He... Start Date: 06/28/19 Status: Ordered NIFEdipine 30 mg oral tablet, extended release 30 mg, 1, tablet, By Mouth, Daily, Bubble Pack and Delivery, # 30 tablet, Refills 3, Tot. Refills 3, Maintenance, 03/27/18 8:38:30 EST, Route to Pharmacy Electronically, [id number], [facility]/pharmacy #[id number] Start Date: 03/27/18 Status: Ordered nitroglycerin 0.4 mg sublingual tablet 1 tablet = 0.4 mg, Sublingual, Every 5 minutes, PRN Chest Pain, # 25 tablet, 3 Refills, Maintenance, 08/24/19 15:40:00 EDT, [facility]/pharmacy #[id number], 183, cm, 05/25/19 15:06:00 EST, Height, 88.3, kg, 08/31/17 3:30:00 EDT, Dry Weight Start Date: 08/24/19 Stop Date: 12/22/19 Status: Ordered oxyCODONE 30 mg oral tablet 2 tablet = 60 mg, By Mouth, Every 3 hours, [employer] checked, # 224 tablet, 0 Refills, Acute 05/15/20 10:19:00 EST, 08/24/19 13:31:00 EDT, [facility]/pharmacy #[id number], may partial fill upon request, 08/27/19, 183, cm, 05/25/19 15:06:00 EST, Height, 88.3, kg, ... Start Date: 08/24/19 Stop Date: 05/15/20 Status: Ordered pantoprazole 40 mg oral delayed release tablet See Instructions, # 28 tablet, Refills 2 Tot. Refills 2, TAKE 1 TABLET BY MOUTH EVERY DAY, [facility]/pharmacy #[id number] Start Date: 02/26/19 Status: Ordered pantoprazole 40 mg oral delayed release tablet 1 tablet = 40 mg, By Mouth, Daily, # 30 tablet, 2 Refills, Maintenance, 08/13/19 13:01:00 EDT, EC Tablet, 183, cm, 05/25/19 15:06:00 EST, Height, 88.3, kg, 08/31/17 3:30:00 EDT, Dry Weight Start Date: 08/13/19 Status: Ordered Plavix 75 mg oral tablet 75 mg, 1, tablet, By Mouth, Daily, # 30 tablet, Refills 5, Tot. Refills 5, Maintenance, 01/29/19 17:07:02 EDT, Route to Pharmacy Electronically, [id number], [facility]/pharmacy #[id number], Bubble pack and Delivery Start Date: 01/29/19 Stop Date: 07/28/19 Status: Ordered sertraline 100 mg oral tablet 1 tablet = 100 mg, By Mouth, Daily, # 30 tablet, 6 Refills, Maintenance, 07/16/19 14:54:00 EST, Tablet, [facility]/pharmacy #[id number], 183, cm, 05/25/19 [...] tablet, Refills 1, Tot. Refills 1, Maintenance, 07/16/19 14:54:00 EST, Route to Pharmacy Electronically, [facility]/pharmacy #[id number], 183, cm, 05/25/19 15:06:00 EST, Height, 88.3, kg, 08/31/17 3:30:00 EDT, Dry Weight Start Date: 07/16/19 Status: Ordered spironolactone 25 mg oral tablet See Instructions, # 30 tablet, Refills 1 Tot. Refills 1, TAKE 1 TABLET BY MOUTH EVERY DAY, [facility]/pharmacy #[id number] Start Date: 03/26/19 Status: Ordered spironolactone 25 mg oral tablet 25 mg, 1, tablet, By Mouth, Daily, # 30 tablet, Refills 1, Tot. Refills 1, Maintenance, 05/21/19 10:07:00 EST, Route to Pharmacy Electronically, [facility]/pharmacy #[id number], 183, cm, 01/23/19 14:41:00 EDT, Height, 88.3, kg, 08/31/17 3:30:00 EDT, Dry Weight Start Date: 05/21/19 Status: Ordered sucralfate 1 gm oral tablet 1 Gm, 1, tablet, By Mouth, 3 times a day before meals and bedtime, # 120 tablet, Refills 2, Tot. Refills 2, Soft Stop, 06/18/19 9:36:00 EST, Route to Pharmacy Electronically, [facility]/pharmacy #[id number], 183,cm, 05/25/19 15:06:00 EST, Height, 88.3, kg, ... Start Date: 06/18/19 Stop Date: 09/16/19 Status: Ordered sucralfate 1 gm oral tablet 1 Gm, 1, tablet, By Mouth, 3 times a day before meals and bedtime, # 120 tablet, Refills 2, Tot. Refills 2, Maintenance, 08/13/19 15:11:00 EDT, Route to Pharmacy Electronically, [facility]/pharmacy #[id number], 183, cm, 05/25/19 15:06:00 EST, Height, 88.3, kg, ... Start Date: 08/13/19 Stop Date: 02/09/20 Status: Ordered Vitamin B-12 1000 mcg oral tablet See Instructions, # 28 tablet, Refills 1 Tot. Refills 1, TAKE 1 TABLET BY MOUTH EVERY DAY, [facility]/pharmacy #[id number] Start Date: 03/26/19 Status: Ordered Vitamin B12 1000 mcg oral tablet 1 tablet = 1,000 mcg, By Mouth, Daily, # 30 tablet, 2 Refills, Maintenance, 05/21/19 10:03:00 EST, Tablet, [facility]/pharmacy #[id number], 183, cm, 01/23/19 [...] artery disease by Rolando Rubin M.D. at [facility]. 5In the past; states this has resolved Diagnosis Diagnosis Type Effective Dates Health Status Clinical Service Informant CAD (coronary artery disease) Discharge Diagnosis 08/24/19 Atrial fibrillation Discharge Diagnosis 08/24/19 Chronic pain syndrome Discharge Diagnosis 08/24/19 Hypertensive renal disease Discharge Diagnosis 08/24/19 Social History Social History Type Response Smoking Status Never smoker entered on: 08/24/16 Sex
--- OUTSIDE RECORDS SUMMARY | 2023-11-18 12:36 | XMS_ITS | Continuity of Care Document ---
Author Organization [facility] Adult Address [address] [place] [address]- Care Team Providers Care Low Vision Therapist Name Role Phone Radha ODONNELL, Hannah Primary Care Physician [phone] Encounter [facility] Date(s): 03/14/23 - 04/13/23 [facility] Adult [address] [place] [id number]- Allergies, Adverse Reactions, Alerts Substance Reaction Severity [...] 01/09/23 7:22:00 EDT, Route to [facility]acy Electronically, [facility], 183, cm, 10/08/22 16:18:00 EDT, Height, 71.3, kg, 08/08/21 0:23:00 EDT, Dry Weight Start Date: 01/09/23 Status: Ordered amLODIPine 5 mg oral tablet 1 tablet, By Mouth, Daily, # 28 tablet, 5 Refills, Maintenance, 11/25/22 16:21:00 EDT, [facility], 183, cm, 10/08/22 16:18:00 EDT, Height, 71.3, kg, 08/08/21 0:23:00 EDT, Dry Weight Start Date: 11/25/22 Status: Ordered atorvastatin 40 mg oral tablet 1 tablet, By Mouth, Daily, # 28 tablet, 2 Refills, Maintenance, 01/09/23 7:23:00 EDT, [facility], 183, cm, 10/08/22 16:18:00 EDT, Height, 71.3, kg, 08/08/21 0:23:00 EDT, Dry Weight Start Date: 01/09/23 Status: Ordered buPROPion 150 mg/24 hours (XL) oral tablet, extended release 1 tablet, By Mouth, Daily, # 28 tablet, 5 Refills, Maintenance, 09/03/22 20:57:00 EDT, [facility], 28, TAKE 1 TABLET BY MOUTH EVERY DAY, 183, cm, 03/16/22 8:31:00 EDT, Height, 71.3, kg, 220:23:00 EDT, Dry Weight Start Date: 09/03/22 Status: Ordered carvedilol 12.5 mg oral tablet 1, tablet, By Mouth, 2 times a day, # 56 tablet, Refills 5, Maintenance, 11/25/22 16:22:00 EDT, Route to [facility]acy Electronically, [facility], 183, cm, 10/08/22 16:18:00 EDT, Height, 71.3, [...] EDT, Route to Pharmacy Electronically, [facility], 183, cm, 03/16/22 8:31:00 EDT, Height, 71.3, [...] 6 Refills, Maintenance, 05/14/2216:30:00 EST, [facility], 183, cm, 03/16/22 8:31:00 EDT, Height, 71.3, kg, 08/08/21 0:23:00 EDT, Dry Weight Start Date: 05/14/22 Status: Ordered Eliquis 5 mg oral tablet 1 tablet, By Mouth, 2 times a day, # 56 tablet, 6 Refills, [facility], 183, cm, 08/12/21 14:20:00 EDT, Height, 71.3, kg, 08/08/21 0:23:00 EDT, Dry Weight Start Date: 09/26/21 Status: Ordered Eliquis 5 mg oral tablet See Instructions, TAKE 1 TABLET BY MOUTH TWICE A DAY, # 56 tablet, 6 Refills, Maintenance, 11/30/2314:39:00 EDT, [facility], 183, cm, 10/08/22 16:18:00 EDT, Height, 71.3, kg, 08/08/21 0:23:00 EDT, Dry Weight Start Date: 11/30/22 Status: Ordered furosemide 40 mg oral tablet 1, tablet, By Mouth, 2 times a day, # 56 tablet, Refills 2, Maintenance, 09/30/22 8:51:00 EDT, Route to Pharmacy Electronically, [facility], 183, cm, 03/16/22 8:31:00 EDT, Height, 71.3, [...] tablet, 2 Refills, Maintenance, 11/25/22 16:22:00 EDT, [facility], 183, cm, 10/08/22 16:18:00 EDT, Height, 71.3, kg, 08/08/21 0:23:00 EDT, Dry Weight Start Date: 11/25/22 Status: Ordered isosorbide mononitrate 60 mg oral tablet, extended release 1 tablet, By Mouth, Daily in AM, # 28 tablet, 2 Refills, Maintenance, 11/25/22 16:23:00 EDT, [facility], 183, cm, 10/08/22 16:18:00 EDT, Height, 71.3, kg, 08/08/21 0:23:00 EDT, Dry Weight Start Date: 11/25/22 Status: Ordered Mylanta Maximum Strength oral suspension 5 mL, By Mouth, 4 times a day, PRN for control of stomach acid, # 200 mL, 1 Refills, Maintenance, 08/12/21 13:46:00 EDT, Suspension, [facility]/pharmacy #[id number], Partial fill upon patient request if the [...] 60 mg, By Mouth, Every 3 hours, 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 fiull 03/28/23, # 112 tablet, 0 [...] Start Date: 11/30/22 Status: Ordered Potassium Chloride (Xdo-Vaie-Ehz 10) 10 mEq oral tablet, extended release See Instructions, TAKE 2 TABLETS BY MOUTH EVERY MORNING AND TAKE 1 TABLET EVERY EVENING, # 84 tablet, 2 Refills, Maintenance, 11/30/22 15:38:00 EDT, [facility], 183, cm, 10/08/22 16:18:00 EDT, Height, 71.3, kg, 08/08/21 0:23:00 EDT, Dry Weight Start Date: 11/30/22 Status: Ordered Potassium Chloride (Nue-Rkiw-Hqa 10) 10 mEq oral tablet, extended release See Instructions, TAKE 2 TABLETS BY MOUTH EVERY MORNING AND TAKE 1 TABLET EVERY EVENING, # 84 tablet, 2 Refills, Maintenance, 09/06/22 10:04:00 EDT, [facility], 183, cm, 03/16/22 8:31:00 EDT, Height, 71.3, kg, 08/08/21 0:23:00 EDT, Dry Weight Start Date: 09/06/22 Status: Ordered sertraline 100 mg oral tablet 1 tablet, By Mouth, Daily, # 28 tablet, 5 Refills, Maintenance, 06/09/22 8:26:00 EST, [facility], 183, cm, 03/16/22 8:31:00 EDT, Height, 71.3, kg, 08/08/21 0:23:00 EDT, Dry Weight Start Date: 06/09/22 Status: Ordered sertraline 100 mg oral tablet See Instructions, TAKE 1 TABLET BY MOUTH EVERY DAY, # 28 tablet, 5 Refills, Maintenance, 11/30/22 15:39:00 EDT, [facility], 183, cm, 10/08/22 16:18:00 EDT, Height, 71.3, kg, 08/08/21 0:23:00 EDT, Dry Weight Start Date: 11/30/22 Status: Ordered spironolactone 25 mg oral tablet 1, tablet, By Mouth, Daily, # 28 tablet, Refills 4, Maintenance, 07/08/22 11:30:00 EST, Route to Pharmacy Electronically, [facility], 183, cm, 03/16/22 8:31:00 EDT, Height, 71.3, kg, 08/08/21 0:23:00 EDT, Dry Weight Start Date: 07/08/22 Status: Ordered spironolactone 25 mg oral tablet See Instructions, TAKE 1 TABLET BY MOUTH EVERY DAY, # 28 tablet, Refills 4, Maintenance, 11/30/22 15:38:00 EDT, Instructions Replace Required Details, Route to Pharmacy Electronically, [facility], 183, cm, 10/08/22 16:18:00 EDT, Height, 71.3, kg,... Start Date: 11/30/22 Status: Ordered sucralfate 1 gm oral tablet 1, tablet, By Mouth, 3 times a day before meals, AND BEDTIME., # 112 tablet, Refills 5, Maintenance, 02/04/23 16:32:00 EDT, Route to Pharmacy Electronically, [facility], 183, cm, 10/08/22 16:18:00 EDT, Height, 71.3, kg, 08/08/21 0:23:00 EDT, Dry... Start Date: 02/04/23 Status: Ordered Vitamin B-12 1000 mcg oral tablet 1, tablet, By Mouth, Daily, # 28 tablet, Refills 0, Maintenance, 02/04/23 17:00:00 EDT, Route to Pharmacy Electronically, [facility], 183, cm, 10/08/22 16:18:00 EDT, Height, 71.3, [...] artery disease by Rolando Rubin M.D. at [facility]. 4In the past; states this has resolved Social History Social History Type Response Smoking Status Never smoker entered on: 08/24/16 Sex Patient Care team information Care Team Personnel Name: Irish Samuel RN Position: [facility] RN Member Role: Primary Care Nurse Name: Mireya Ramsey Position: [facility] RN Supv Member Role: Primary Care Nurse Name: Rhea Betancur RN Position: [facility] SN RN Member Role: Primary Care Nurse Name: Hugo Ayala RN Position: [facility] RN Member Role: Primary Care Nurse Name: Lorna Faust RN Position: [facility] RN Member Role: Primary Care Nurse Name: David Gonzalez MD Position: [facility] Renal MD Member Role: Lifetime Consulting Physician Address: Address: [address] [place] [address] [address] [facility] [place] [address]- [place] Name: Hannah Garcia NP Position: [facility] PCO Associate Professional Member Role: PCP Address: Address: [address] [place] [address], [address] [place] [address]- [place] Name: Eduin Arias MD Position: [facility] Renal MD Member Role: Lifetime Consulting Physician Address: Address: [address] [place] [address], [address] [place] [address]- [place] Name: Ana Herrera RN Position: [facility] RN Member Role: Primary Care Nurse Name: Cadence Quach RN Position: [facility] OB RN Member Role: Primary Care Nurse Name: Maggy Tsang RN Position: S RN Member Role: Primary Care Nurse Name: Keyla Keys RN Position: [facility] SN RN Member Role: Primary Care Nurse Name: Марина Guevara RN Position: [facility] RN Member Role: Primary Care Nurse Name: Lyn Helms RN Position: [facility] RN Member Role: Primary Care Nurse Name: Tatum Biswas RN Position: [facility] RN Member Role: Primary Care Nurse Name: Hugo Bateman RN Position: [facility] RN Member Role: Primary Care Nurse Name: Petros Levy RN Position: [facility] RN Member Role: Primary Care Nurse Name: Izabella Braun RN Position: [facility] RN Member Role: Primary Care Nurse Name: Lyndsay King RN Position: [facility] RN Member Role: Primary Care Nurse Name: Felicia Kerr RN Position: [facility] RN Member Role: Primary Care Nurse Name: Hafsa Goyal RN Position: [facility] RN Member Role: Primary Care Nurse Name: Rosalio Jack RN Position: [facility] RN Member Role: Primary Care Nurse Name: Carmela Houser RN Position: [facility] SN RN Member Role: Primary Care Nurse Name: Michael Dickson RN Position: [facility] RN Member Role: Primary Care Nurse Name: Jessica Lema RN Position: [facility] RN Member Role: Primary Care Nurse Name: Phu Flynn MD Position: [facility] Renal MD Member Role: Lifetime Consulting Physician Address: Address: [address] [place] [address] [facility] [address] Name: Yesica Serna RN Position: [facility] OB RN Member Role: Primary Care Nurse Name: Jesusita Lou RN Position: [facility] OB RN Member Role: Primary Care Nurse Name: Husam Elizalde RN Position: [facility] RN Member Role: Primary Care Nurse Care Team Related Persons Name: DUTCH MAR Address: [place], [place] Name: ALL AYERS Address: home [address] [place], [place] Name: ALL MANZANARES Address: home [address], [place] Name: CHRISTEN GRIMALDO Address: home [address], [place]
--- OUTSIDE RECORDS SUMMARY | 2023-11-18 12:37 | XMS_ITS | Continuity of Care Document ---
Author Organization [facility] Adult Address [address] [place] [address]- Care Team Providers Care Post Doctoral Researcher Name Role Phone Radha BEAD PREPARER, Hannah Primary Care Physician [phone] Encounter [facility] Date(s): 05/07/21 - 06/06/21 [facility] Adult [address] [place] [id number]- Allergies, Adverse Reactions, Alerts Substance Reaction Severity [...] tablet, Refills 2, Route to Pharmacy Electronically, [facility] 71298, 183, cm, 08/05/20 8:57:00 EDT, Height Start Date: 03/14/21 Status: Ordered amLODIPine 5 mg oral tablet 1 tablet, By Mouth, Daily, # 28 tablet, 5 Refills, [facility] 491[facility], 183, cm, 08/05/20 8:57:00 EDT, Height Start Date: 04/10/21 Status: Ordered atorvastatin 40 mg oral tablet 1 tablet, By Mouth, Daily, # 28 tablet, 5 Refills, Maintenance, 11/19/20 20:20:00 EDT, [facility]/pharmacy#4471, 183, cm, 08/05/20 8:57:00 EDT, Height Start Date: 11/19/20 Status: Ordered buPROPion 150 mg/24 hours (XL) oral tablet, extended release 1 tablet, By Mouth, Every 24 hours, # 28 tablet, 2 Refills, [facility] 11459, 28, TAKE 1 TABLET BY MOUTH EVERY 24 HOURS, 183, cm, 08/05/20 8:57:00 EDT, Height Start Date: 03/10/21 Status: Ordered carvedilol 12.5 mg oral tablet 1, tablet, By Mouth, 2 times a day, # 56 tablet, Refills 2, Route to Pharmacy Electronically, [facility] 32146, 183, cm, 08/05/20 8:57:00 EDT, Height Start Date: 04/10/21 Status: Ordered clopidogrel 75 mg oral tablet 1, tablet, By Mouth, Daily, # 30 tablet, Refills 5, Tot. Refills 0, Maintenance, 11/04/20 9:43:00 EDT, Route to Pharmacy Electronically, [facility] 78584, 183, cm, 08/05/20 8:57:00 EDT, Height Start Date: 11/04/20 Status: Ordered docusate sodium 100 mg oral capsule 100 mg, 1, capsule, By Mouth, 3 times a day, Bubble Pack and Delivery, # 90 capsule, Refills 5, Tot. Refills 5, Maintenance, 11/22/17 13:28:22 EDT, Route to Pharmacy Electronically, [id number], [facility]/pharmacy #[id number] Start Date: 11/22/17 Stop Date: 05/21/18 Status: Ordered Eliquis 5 mg oral tablet 1 tablet, By Mouth, 2 times a day, # 56 tablet, 6 Refills, [facility] 04038, 183, cm, 08/05/20 8:57:00 EDT, Height Start Date: 01/27/21 Status: Ordered furosemide 40 mg oral tablet 1, tablet, By Mouth, 2 times a day, # 56 tablet, Refills 2, Route to Pharmacy Electronically, [facility] 19140, 183, cm, 08/05/20 8:57:00 EDT, Height Start Date: 03/10/21 Status: Ordered hydrALAZINE 50 mg oral tablet 1 tablet = 50 mg, By Mouth, 3 times a day, dose change, # 90 tablet, 1 Refills, Maintenance, 09/10/19 10:37:00 EDT, Tablet, [facility]/pharmacy #4471, 183, cm, 05/25/19 15:06:00 EST, Height Start Date: 09/10/19 Stop Date: 11/09/19 Status: Ordered isosorbide mononitrate 60 mg oral tablet, extended release 1 tablet, By Mouth, Daily in AM, # 28 tablet, 6 Refills, Maintenance, 10/22/20 16:57:00 EDT, [facility], 183, cm, 08/05/20 8:57:00 EDT, Height Start [...] 0 Refills, Maintenance, 05/06/21 10:58:00 EST, Patch, [facility], Partial fill upon patient request if the prescription is fo... Start Date: 05/06/21 Status: Ordered NIFEdipine 30 mg oral tablet, extended release 30 mg, 1, tablet, By Mouth, Daily, Bubble Pack and Delivery, # 30 tablet, Refills 3, Tot. Refills 3, Maintenance, 03/27/18 8:38:30 EST, Route to Pharmacy Electronically, [id number], [facility]/pharmacy #[id number] Start Date: 03/27/18 Status: Ordered nitroglycerin 0.4 mg sublingual tablet 1 tablet = 0.4 mg, Sublingual, Every 5 minutes, PRN Chest Pain, # 25 tablet, 3 Refills, Maintenance, 08/24/19 15:40:00 EDT, [facility]/pharmacy #[id number], 183, cm, 05/25/19 15:06:00 EST, Height, 88.3, kg, 08/31/17 3:30:00 EDT, Dry Weight Start Date: 08/24/19 Stop Date: 12/22/19 Status: Ordered oxyCODONE 30 mg oral tablet 2 tablet = 60 mg, By Mouth, Every 3 hours, for 14 days, 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 Fill on 06/03/21, # 224 tablet,0 Refills, Acute 06/16/21 13:38:00 EST, 06/02/21 13:38:00 EST, [facility]/pharmacy #[id number], september partial fillupon request;, 183, cm, 05/04/21 3:09:00 EST, [facility]... Start Date: 06/02/21 Stop Date: 06/16/21 Status: Ordered pantoprazole 40 mg oral delayed release tablet 1 tablet, By Mouth, Daily, # 28 tablet, 2 Refills, 183, cm, 08/05/20 8:57:00 EDT, Height Start Date: 04/13/21 Status: Ordered Potassium Chloride (Hfy-Wfov-Cpy 10) 10 mEq oral tablet, extended release See Instructions, TAKE 2 TABLETS BY MOUTH EVERY MORNING AND TAKE 1 TABLET EVERY EVENING, # 84 tablet, 2 Refills, [facility] ST[facility] 97391, 183, cm, 08/05/20 8:57:00 EDT, Height Start Date: 04/10/21 Status: Ordered sertraline 100 mg oral tablet 1 tablet, By Mouth, Daily, # 28 tablet, 5 Refills, Maintenance, 11/20/20 10:42:00 EDT, [facility] ST[facility] 11779, 183, cm, 08/05/20 8:57:00 EDT, Height Start Date: 11/20/20 Status: Ordered spironolactone 25 mg oral tablet 1, tablet, By Mouth, Daily, # 28 tablet, Refills 2, Route to Pharmacy Electronically, [facility] 87991, 183, cm, 08/05/20 8:57:00 EDT, Height Start Date: 04/10/21 Status: Ordered sucralfate 1 gm oral tablet 1, tablet, By Mouth, 3 times a day before meals, AND BEDTIME., # 270 tablet, Refills 0, Tot. Refills 0, 05/31/21 15:27:00 EST, Route to Pharmacy Electronically, [facility]/pharmacy #4471, 183, cm, 05/04/21 3:09:00 EST, Height, 81.7, kg, 04/16/21 3:06:00 EST,... Start Date: 1/16/22 Status: Ordered Vitamin B-12 1000 mcg oral tablet 1, tablet, By Mouth, Daily, # 28 tablet, Refills 5, Route to Pharmacy Electronically, [facility], 183, cm, 08/05/20 8:57:00 EDT, Height Start [...] artery disease by Rolando Rubin M.D. at [facility]. 5In the past; states this has resolved Social History Social History Type Response Smoking Status Never smoker entered on: 08/24/16 Sex
--- OUTSIDE RECORDS SUMMARY | 2023-11-18 12:37 | XMS_ITS | Continuity of Care Document ---
Author Organization [facility] Adult Address [address] [place] [address]- Care Team Providers Care Printing Supplies Sales Representative Name Role Phone Radha ODONNELL, Hannah Primary Care Physician Encounter [facility] Date(s): 04/15/23 - 05/15/23 [facility] Adult [address] [place] [phone]- Allergies, Adverse Reactions, Alerts Substance Reaction Severity [...] 01/09/23 7:22:00 EDT, Route to Pharmacy Electronically, [facility] 45374, 183, cm, 10/08/22 16:18:00 EDT, Height, 71.3, kg, 08/08/21 0:23:00 EDT, Dry Weight Start Date: 01/09/23 Status: Ordered amLODIPine 5 mg oral tablet 1 tablet, By Mouth, Daily, # 28 tablet, 5 Refills, Maintenance, 11/25/22 16:21:00 EDT, [facility] 17196, 183, cm, 10/08/22 16:18:00 EDT, Height, 71.3, kg, 08/08/21 0:23:00 EDT, Dry Weight Start Date: 11/25/22 Status: Ordered atorvastatin 40 mg oral tablet 1 tablet, By Mouth, Daily, # 28 tablet, 2 Refills, Maintenance, 01/09/23 7:23:00 EDT, [facility], 183, cm, 10/08/22 16:18:00 EDT, Height, 71.3, [...] EDT, Route to Pharmacy Electronically, [facility], 183, cm, 10/08/22 16:18:00 EDT, Height, 71.3, [...] EDT, Route to Pharmacy Electronically, [facility], 183, cm, 03/16/22 8:31:00 EDT, Height, 71.3, [...] 6 Refills, Maintenance, 05/14/2216:30:00 EST, [facility], 183, cm, 03/16/22 8:31:00 EDT, Height, 71.3, kg, 08/08/21 0:23:00 EDT, Dry Weight Start Date: 05/14/22 Status: Ordered Eliquis 5 mg oral tablet 1 tablet, By Mouth, 2 times a day, # 56 tablet, 6 Refills, [facility], 183, cm, 08/12/21 14:20:00 EDT, Height, 71.3, kg, 08/08/21 0:23:00 EDT, Dry Weight Start Date: 09/26/21 Status: Ordered Eliquis 5 mg oral tablet See Instructions, TAKE 1 TABLET BY MOUTH TWICE A DAY, # 56 tablet, 6 Refills, Maintenance, 11/30/2314:39:00 EDT, [facility], 183, cm, 10/08/22 16:18:00 EDT, Height, 71.3, [...] tablet, 2 Refills, Maintenance, 04/27/23 13:02:00 EST, [facility] ST[facility] 47474, 183, cm, 03/28/23 11:43:00 EST, Height, 71.3, [...] 60 mg, By Mouth, Every 3 hours, BARISTA checked., # 112 tablet, 0 Refills, Maintenance, 05/10/23 13:38:00 EST, [facility]/pharmacy #[id number], may partial fill upon request;, 183, cm, 05/10/23 11:59:00 EST, Height, 71.3, kg, 08/08/21 0:23:00 EDT, Dry Weight Start Date: 05/10/23 Stop Date: 05/17/23 Status: Ordered oxyCODONE 30 mg oral tablet 2 tablet = 60 mg, By Mouth, Every 3 hours, BARISTA checked. [email or web address] 03/28/23, # 112 tablet, 0 Refills, Maintenance, 03/28/23 7:01:00 EST, [facility]/pharmacy #4471, 7 days as needs testing [...] Start Date: 11/30/22 Status: Ordered Potassium Chloride (Qix-Mzqg-Out 10) 10 mEq oral tablet, extended release See Instructions, TAKE 2 TABLETS BY MOUTH EVERY MORNING AND TAKE 1 TABLET EVERY EVENING, # 84 tablet, 2 Refills, Maintenance, 04/27/23 13:02:00 EST, [facility] 50327, 183, cm, 03/28/23 11:43:00 EST, Height, 71.3, kg, 08/08/21 0:23:00 EDT, Dry Weight Start Date: 04/27/23 Status: Ordered sertraline 100 mg oral tablet 1 tablet, By Mouth, Daily, # 28 tablet, 5 Refills, Maintenance, 06/09/22 8:26:00 EST, [facility] 40947, 183, cm, 03/16/22 8:31:00 EDT, Height, 71.3, kg, 08/08/21 0:23:00 EDT, Dry Weight Start Date: 06/09/22 Status: Ordered sertraline 100 mg oral tablet See Instructions, TAKE 1 TABLET BY MOUTH EVERY DAY, # 28 tablet, 5 Refills, Maintenance, 11/30/22 15:39:00 EDT, [facility], 183, cm, 10/08/22 16:18:00 EDT, Height, 71.3, kg, 08/08/21 0:23:00 EDT, Dry Weight Start Date: 11/30/22 Status: Ordered spironolactone 25 mg oral tablet 1, tablet, By Mouth, Daily, # 28 tablet, Refills 4, Maintenance, 07/08/22 11:30:00 EST, Route to Pharmacy Electronically, [facility], 183, cm, 03/16/22 8:31:00 EDT, Height, 71.3, kg, 08/08/21 0:23:00 EDT, Dry Weight Start Date: 07/08/22 Status: Ordered spironolactone 25 mg oral tablet See Instructions, TAKE 1 TABLET BY MOUTH EVERY DAY, # 28 tablet, Refills 4, Maintenance, 11/30/22 15:38:00 EDT, Instructions Replace Required Details, Route to Pharmacy Electronically, [facility] STORE 41729, 183, cm, 10/08/22 16:18:00 EDT, Height, 71.3, kg,... Start Date: 11/30/22 Status: Ordered sucralfate 1 gm oral tablet 1, tablet, By Mouth, 3 times a day before meals, AND BEDTIME., # 112 tablet, Refills 5, Maintenance, 02/04/23 16:32:00 EDT, Route to Pharmacy Electronically, [facility] STORE 06308, 183, cm, 10/08/22 16:18:00 EDT, Height, 71.3, [...] at [facility]. 4In the past; states this has resolved [...] Role: Lifetime Consulting Physician Address: Address: [address] [place] [address] [address] [facility] [address]- [place] Name: Hannah Garcia NP Position: [facility] PCO Associate Professional Member Role: PCP Address: Address: [address] [place] [address], [address] [place] [address]- [place] Name: Eduin Arias MD Position: [facility] Renal MD Member Role: Lifetime Consulting Physician Address: Address: [address] [place] [address], [address] [place] [address]- [place] Name: Ana Herrera RN Position: [facility] RN Member Role: Primary Care Nurse Name: Cadence Quach RN Position: [facility] OB RN Member Role: Primary Care Nurse Name: Maggy Tsang RN Position: S RN Member Role: Primary Care Nurse Name: Keyla Keys RN Position: [facility] SN RN Member Role: Primary Care Nurse Name: Марина Guevara RN Position: [facility] SN RN Member [...] Care Nurse Name: Felicia Kerr NP Position: [facility] Medical Student Member Role: Primary Care Nurse [...] RN Member Role: Primary Care Nurse Name: hPu Flynn MD Position: [facility] Renal MD Member Role: Lifetime Consulting Physician Address: Address: [address] [place] [address] [facility] [address] Name: Yesica Serna RN Position: [facility] OB RN Member Role: Primary Care Nurse Name: Jesusita Lou RN Position: [facility] OB RN Member Role: Primary Care Nurse Name: Husam Elizalde RN Position: [facility] RN Member Role: Primary Care Nurse Name: Marshall Byrd RN Position: [facility] RN Member Role: Primary Care Nurse Care Team Related Persons Name: DUTCH MAR Address: [address] [place], [place] Name: ALL AYERS Address: [address] [place], [place] Name: ALL MANZANARES Address: [address] [place], [place] Name: CHRISTEN GRIMALDO Address: home [address] [place], [place]
--- OUTSIDE RECORDS SUMMARY | 2023-11-18 12:37 | XMS_ITS | Continuity of Care Document ---
Author Organization [facility] Adult Address [address] [place] [address]- Care Team Providers Care Spares Scheduler Name Role Phone Radha ODONNELL, Hannah Primary Care Physician [place] [facility] [place] 09[place]01/22 [facility] Adult [address] [place] [id number]- Allergies, Adverse Reactions, Alerts Substance Reaction Severity [...] 07/08/22 11:30:00 EST, Route to Pharmacy Electronically, [id number], 183, cm, 03/16/22 8:31:00 EDT, Height, 71.3, kg, 08/08/21 0:23:00 EDT, Dry Weight Start Date: 07/08/22 Status: Ordered amLODIPine 5 mg oral tablet 1 tablet, By Mouth, Daily, # 28 tablet, 4 Refills, Maintenance, 04/13/22 11:43:00 EST, [id number], 183, cm, 03/16/22 8:31:00 EDT, Height, 71.3, kg, 08/08/21 0:23:00 EDT, Dry Weight Start Date: 04/13/22 Status: Ordered atorvastatin 40 mg oral tablet 1 tablet, By Mouth, Daily, # 28 tablet, 5 Refills, Maintenance, 07/08/22 11:30:00 EST, [facility] ST[facility] [id number], 183, cm, 03/16/22 8:31:00 EDT, Height, 71.3, kg, 08/08/21 0:23:00 EDT, Dry Weight Start Date: 07/08/22 Status: Ordered buPROPion 150 mg/24 hours (XL) oral tablet, extended release See Instructions, TAKE 1 TABLET BY MOUTH EVERY 24 HOURS, # 28 tablet, 5 Refills, 03/18/22 11:05:00 EDT, [facility]/pharmacy #[id number], 28, TAKE 1 TABLET BY MOUTH EVERY 24 HOURS, 183, cm, 03/16/22 8:31:00 EDT, Height, 71.3, kg, 08/08/21 0:23:00 EDT, Dry Weight Start Date: 03/18/22 Status: Ordered buPROPion 150 mg/24 hours (XL) oral tablet, extended release 1 tablet, By Mouth, Every 24 hours, # 28 tablet, 2 Refills, [facility] 69702, 28, TAKE 1 TABLET BY MOUTH EVERY 24 HOURS, 183, cm, 08/12/21 14:20:00 EDT, Height, 71.3, kg, 08/08/21 0:23:00 EDT, Dry Weight Start Date: 09/25/21 Status: Ordered carvedilol 12.5 mg oral tablet 1, tablet, By Mouth, 2 times a day, # 56 tablet, Refills 5, Route to Pharmacy Electronically, [facility] 13001, 183, cm, 05/04/21 3:09:00 EST, Height, 81.7, kg, 04/16/21 3:06:00 EST, Dry Weight Start Date: 07/07/21 Status: Ordered carvedilol 12.5 mg oral tablet See Instructions, TAKE 1 TABLET BY MOUTH TWICE A DAY, # 56 tablet, Refills 5, Tot. Refills 5, 03/18/22 11:05:00 EDT, Instructions Replace Required Details, Route to Pharmacy Electronically, [facility]/pharmacy #[id number], 183, cm, 03/16/22 8:31:00 EDT, Height, 71... Start Date: 03/18/22 Status: Ordered clopidogrel 75 mg oral tablet 1, tablet, By Mouth, Daily, # 28 tablet, Refills 5, Route to Pharmacy Electronically, [facility], 183, cm, 05/04/21 3:09:00 EST, Height, 81.7, kg, 04/16/21 3:06:00 EST, Dry Weight Start Date: 07/02/21 Status: Ordered clopidogrel 75 mg oral tablet 75 mg, 1, tablet, By Mouth, Daily, for 30 days, # 30 tablet, Refills 5, Tot. Refills 5, Physician Stop 09/14/22 13:18:00 EDT, 03/18/22 13:18:00 EDT, Route to Pharmacy Electronically, [facility]/pharmacy #[id number], 183, cm, 03/16/22 8:31:00 EDT, Height, 71.3, kg,... Start Date: 03/18/22 Stop Date: 09/14/22 Status: Ordered Eliquis 5 mg oral tablet See Instructions, TAKE 1 TABLET BY MOUTH TWICE A DAY, # 56 tablet, 6 Refills, Maintenance, 05/14/2216:30:00 EST, [facility], 183, cm, 03/16/22 8:31:00 EDT, Height, 71.3, kg, 08/08/21 0:23:00 EDT, Dry Weight Start Date: 05/14/22 Status: Ordered Eliquis 5 mg oral tablet 1 tablet, By Mouth, 2 times a day, # 56 tablet, 6 Refills, [facility], 183, cm, 08/12/21 14:20:00 EDT, Height, 71.3, kg, 08/08/21 0:23:00 EDT, Dry Weight Start Date: 09/26/21 Status: Ordered furosemide 40 mg oral tablet 1, tablet, By Mouth, 2 times a day, # 56 tablet, Refills 2, Maintenance, 07/08/22 11:30:00 EST, Route to Pharmacy Electronically, [facility], 183, cm, 03/16/22 8:31:00 EDT, Height, 71.3, kg, 08/08/21 0:23:00 EDT, Dry Weight Start Date: 07/08/22 Status: Ordered hydrALAZINE 50 mg oral tablet 1 tablet, By Mouth, 3 times a day, # 84 tablet, 1 Refills, Maintenance, 08/03/22 8:30:00 EDT, [facility], 183, cm, 03/16/22 8:31:00 EDT, Height, 71.3, kg, 08/08/21 0:23:00 EDT, Dry Weight Start Date: 08/03/22 Status: Ordered isosorbide mononitrate 60 mg oral tablet, extended release 1 tablet, By Mouth, Daily in AM, # 28 tablet, 4 Refills, Maintenance, 04/13/22 11:43:00 EST, [facility], 183, cm, 03/16/22 8:31:00 EDT, Height, 71.3, kg, 08/08/21 0:23:00 EDT, Dry Weight Start Date: 04/13/22 Status: Ordered Mylanta Maximum Strength oral suspension 5 mL, By Mouth, 4 times a day, PRN for control of stomach acid, # 200 mL, 1 Refills, Maintenance, 08/12/21 13:46:00 EDT, Suspension, [facility]/pharmacy #[id number], Partial fill upon patient [...] 60 mg, By Mouth, Every 3 hours, FOOD SERVICE ASSISTANT checked. fill on 08/30/22, # 224 tablet, [...] Start Date: 07/08/22 Status: Ordered Potassium Chloride (Dyt-Crui-Ohs 10) 10 mEq oral tablet, extended release See Instructions, TAKE 2 TABLETS BY MOUTH EVERY MORNING AND TAKE 1 TABLET EVERY EVENING, # 84 tablet, 2 Refills, Maintenance, 06/09/22 9:19:00 EST, [facility], 183, cm, 03/16/22 8:31:00 EDT, Height, 71.3, kg, 08/08/21 0:23:00 EDT, Dry Weight Start Date: 06/09/22 Status: Ordered sertraline 100 mg oral tablet 1 tablet, By Mouth, Daily, # 28 tablet, 5 Refills, Maintenance, 06/09/22 8:26:00 EST, [facility], 183, cm, 03/16/22 8:31:00 EDT, Height, 71.3, kg, 08/08/21 0:23:00 EDT, Dry Weight Start Date: 06/09/22 Status: Ordered spironolactone 25 mg oral tablet 1, tablet, By Mouth, Daily, # 28 tablet, Refills 4, Maintenance, 07/08/22 11:30:00 EST, Route to Pharmacy Electronically, [facility], 183, cm, 03/16/22 8:31:00 EDT, Height, 71.3, kg, 08/08/21 0:23:00 EDT, Dry Weight Start Date: 07/08/22 Status: Ordered sucralfate 1 gm oral tablet 1, tablet, By Mouth, 3 times a day before meals, AND BEDTIME., # 112 tablet, Refills 2, Maintenance, 08/03/22 8:30:00 EDT, Route to Pharmacy Electronically, [facility], 183, cm, 03/16/22 8:31:00EDT, Height, 71.3, kg, 08/08/21 0:23:00 EDT, Dry We... Start Date: 08/03/22 Status: Ordered Vitamin B-12 1000 mcg oral tablet See Instructions, TAKE 1 TABLET BY MOUTH EVERY DAY, # 28 tablet, Refills 5, Maintenance, 05/14/22 16:30:00 EST, Instructions Replace Required Details, Route to Pharmacy Electronically, [facility], 183, cm, 03/16/22 8:31:00 EDT, Height, 71.3, kg,... Start Date: 05/14/22 Status: Ordered Vitamin B-12 1000 mcg oral tablet 1, tablet, By Mouth, Daily, # 28 tablet, Refills 5, Route to Pharmacy Electronically, [facility], 183, cm, 08/12/21 14:20:00 EDT, Height, 71.3, [...] artery disease by Rolando Rubin M.D. at [facility]. 4In the past; states this has resolved Social History Social History Type Response Smoking Status Never smoker entered on: 08/24/16 Sex Patient Care team information Care Team Personnel Name: Irish Samuel RN Position: [facility] RN Member Role: Primary Care Nurse Name: Mireya Ramsey Position: [facility] RN Supv Member Role: Primary Care Nurse Name: Rhea Betancur RN Position: [facility] SN RN Member Role: Primary Care Nurse Name: Hugo Ayala RN Position: [facility] RN Member Role: Primary Care Nurse Name: oLrna Faust RN Position: [facility] RN Member Role: Primary Care Nurse Name: Wilner Feliciano RN Position: [facility] RN Supv Member Role: Primary Care Nurse Name: David Gonzalez MD Position: [facility] Renal MD Member Role: Lifetime Consulting Physician Address: Address: [address] [place] [address], [address] [facility] [place] [address]- [place] Name: Hannah Garcia NP Position: [facility] PCO Associate Professional Member Role: PCP Address: Address: [address] [place] [address], [address] [place] [address]- [place] Name: Eduin Arias MD Position: [facility] Physician (General Medicine) Member Role: Lifetime Consulting Physician Address: Address: [address] [place] [address], [address] [place] [address]- [place] Name: Ana Herrera RN Position: [facility] RN Member Role: Primary Care Nurse Name: Carlos Montez RN Position: [facility] RN Member Role: Primary Care Nurse Name: Cadence Quach RN Position: [facility] OB RN Member Role: Primary Care Nurse Name: Maggy Tsang RN Position: [facility] RN Member Role: Primary Care Nurse Name: Keyla Keys RN Position: [facility] SN RN Member Role: Primary Care Nurse Name: Марина Guevara RN Position: [facility] RN Member Role: Primary Care Nurse Name: Lyn Helms RN Position: [facility] RN Member Role: Primary Care Nurse Name: Tatum Biswas RN Position: [facility] RN Member Role: Primary Care Nurse Name: Hugo Bateman RN Position: [facility] RN Member Role: Primary Care Nurse Name: Petros Levy RN Position: [facility] RN Member Role: Primary Care Nurse Name: Charly Burns RN Position: [facility] RN Member Role: Primary Care Nurse Name: Izabella Braun RN Position: [facility] RN Member Role: Primary Care Nurse Name: Lyndsay King RN Position: [facility] RN Member Role: Primary Care Nurse Name: Felicia Kerr RN Position: [facility] RN Member Role: Primary Care Nurse Name: Hafsa Goyal RN Position: [facility] RN Member Role: Primary Care Nurse Name: Rosalio Jack RN Position: [facility] RN Member Role: Primary Care Nurse Name: Geovanna Hill RN Position: [facility] RN Member Role: Primary Care Nurse Name: Carmela Houser RN Position: [facility] SN RN Member Role: Primary Care Nurse Name: iMchael Dickson RN Position: [facility] RN Member Role: Primary Care Nurse Name: Jessica Lema RN Position: [facility] RN Member Role: Primary Care Nurse Name: Phu Flynn MD Position: [facility] Renal MD Member Role: Lifetime Consulting Physician Address: Address: [address] [place] [address] [facility] [address] Name: Yesica Serna RN Position: [facility] OB RN Member Role: Primary Care Nurse Name: Jesusita Lou RN Position: [facility] OB RN Member Role: Primary Care Nurse Name: Karen Quach RN Position: [facility] PCO w/OE and EZ Script Member Role: Primary Care Nurse Name: Marshall Byrd RN Position: [facility] RN Member Role: Primary Care Nurse Care Team Related Persons Name: DUTCH MAR Address: [place], [place] Name: ALL AYERS Address: [address], [place] Name: ALL MANZANARES Address: [address], [place] Name: CHRISTEN GRIMALDO Address: [address] [place] [address]
--- OUTSIDE RECORDS SUMMARY | 2023-11-18 12:37 | XMS_ITS | Continuity of Care Document ---
Author Organization [facility] Adult Address [address] [place] [id number]- Care Team Providers Care Manager Service Desk Name Role Phone Radha ODONNELL, Hannah Primary Care Physician Encounter [facility] [place] Date(s): 07/17/21 - 08/16/21 [facility] [address] [place] [id number]- Allergies, Adverse Reactions, Alerts Substance Reaction Severity [...] tablet, Refills 2, Route to Pharmacy Electronically, [facility] 15131, 183, cm, 05/04/21 3:09:00 EST, Height, 81.7, kg, 04/16/21 3:06:00 EST, Dry Weight Start Date: 07/02/21 Status: Ordered amLODIPine 5 mg oral tablet 1 tablet, By Mouth, Daily, # 28 tablet, 5 Refills, [facility] 78447, 183, cm, 08/05/20 8:57:00 EDT, Height Start Date: 04/10/21 Status: Ordered atorvastatin 40 mg oral tablet 1 tablet, By Mouth, Daily, # 28 tablet, 5 Refills, [facility] 57878, 183, cm, 05/04/21 3:09:00 EST, Height, 81.7, kg, 04/16/21 3:06:00 EST, Dry Weight Start Date: 07/01/21 Status: Ordered buPROPion 150 mg/24 hours (XL) oral tablet, extended release 1 tablet, By Mouth, Every 24 hours, # 28 tablet, 2 Refills, [facility] 96039, 28, TAKE 1 TABLET BY MOUTH EVERY 24 HOURS, 183, cm, 05/04/21 3:09:00 EST, Height, 81.7, kg, 04/16/21 3:06:00 EST, Dry Weight Start Date: 07/02/21 Status: Ordered carvedilol 12.5 mg oral tablet 1, tablet, By Mouth, 2 times a day, # 56 tablet, Refills 5, Route to Pharmacy Electronically, [facility] 64427, 183, cm, 05/04/21 3:09:00 EST, Height, 81.7, kg, 04/16/21 3:06:00 EST, Dry Weight Start Date: 07/07/21 Status: Ordered clopidogrel 75 mg oral tablet 1, tablet, By Mouth, Daily, # 28 tablet, Refills 5, Route to Pharmacy Electronically, [facility] 95461, 183, cm, 05/04/21 3:09:00 EST, Height, 81.7, kg, 04/16/21 3:06:00 EST, Dry Weight Start Date: 07/02/21 Status: Ordered Eliquis 5 mg oral tablet 1 tablet, By Mouth, 2 times a day, # 56 tablet, 6 Refills, [facility] 80475, 183, cm, 08/05/20 8:57:00 EDT, Height Start Date: 01/27/21 Status: Ordered furosemide 40 mg oral tablet 1, tablet, By Mouth, 2 times a day, # 56 tablet, Refills 2, Route to Pharmacy Electronically, [facility] 30958, 183, cm, 05/04/21 3:09:00 EST, Height, 81.7, kg, 04/16/21 3:06:00 EST, Dry Weight Start Date: 07/02/21 Status: Ordered hydrALAZINE 50 mg oral tablet 1 tablet = 50 mg, By Mouth, 3 times a day, dose change, # 90 tablet, 1 Refills, Maintenance, 09/10/19 10:37:00 EDT, Tablet, [facility]/pharmacy #[id number], 183, cm, 05/25/19 15:06:00 EST, Height Start Date: 09/10/19 Stop Date: 11/09/19 Status: Ordered isosorbide mononitrate 60 mg oral tablet, extended release 1 tablet, By Mouth, Daily in AM, # 28 tablet, 2 Refills, [facility] STORE 87666, 183, cm, 05/04/21 3:09:00EST, Height, 81.7, kg, 04/16/21 3:06:00 EST, Dry Weight Start Date: 08/04/21 Status: Ordered Mylanta Maximum Strength oral suspension 5 mL, By Mouth, 4 times a day, PRN for control of stomach acid, # 200 mL, 1 Refills, Maintenance, 08/12/21 13:46:00 EDT, Suspension, [facility]/pharmacy #[id number], Partial fill upon patient request if the prescription is for a schedule II opioid drug., 5 mL By M... Start Date: 08/12/21 Status: Ordered nitroglycerin 0.4 mg sublingual tablet 1 tablet = 0.4 mg, Sublingual, Every 5 minutes, PRN Chest Pain, # 25 tablet, 3 Refills, Maintenance, 08/24/19 15:40:00 EDT, [facility]/pharmacy #[id number], 183, cm, 05/25/19 15:06:00 EST, Height, 88.3, kg, 08/31/17 3:30:00 EDT, Dry Weight Start Date: 08/24/19 Stop Date: 12/22/19 Status: Ordered oxyCODONE 30 mg oral tablet 2 tablet = 60 mg, By Mouth, Every 3 hours, EXTENSION SERVICE SPECIALIST checked. Fill on 08/04/21, # 224 tablet, 0 Refills, Acute 05/15/22 13:12:00 EST, 07/31/21 12:53:00 EDT, [facility]/pharmacy #[id number], may partial fill upon request;, 183, cm, 05/04/21 3:09:00 EST, Height, 81.7, kg,... Start Date: 07/31/21 Stop Date: 05/15/22 Status: Ordered pantoprazole 40 mg oral delayed release tablet 1 tablet, By Mouth, Daily, # 28 tablet, 2 Refills, 08/12/21 13:46:00 EDT, 183, cm, 08/12/21 12:05:00 EDT, Height, 71.3, kg, 08/08/21 0:23:00 EDT, Dry Weight Start Date: 08/12/21 Status: Ordered sertraline 100 mg oral tablet 1 tablet, By Mouth, Daily, # 28 tablet, 5 Refills, [facility] STORE 03605, 183, cm, 05/04/21 3:09:00 EST, Height, 81.7, kg, 04/16/21 3:06:00 EST, Dry Weight Start Date: 06/11/21 Status: Ordered spironolactone 25 mg oral tablet 1, tablet, By Mouth, Daily, # 28 tablet, Refills 2, Tot. Refills 2, 08/12/21 13:46:00 EDT, Route toPharmacy Electronically, [facility]/pharmacy #[id number], 183, cm, 08/12/21 12:05:00 EDT, Height, 71.3, kg, 08/08/21 0:23:00 EDT, Dry Weight Start Date: 08/12/21 Status: Ordered sucralfate 1 gm oral tablet 1, tablet, By Mouth, 3 times a day before meals, AND BEDTIME., # 112 tablet, Refills 2, Tot. Refills 2, 08/12/21 13:47:00 EDT, Route to Pharmacy Electronically, [facility]/pharmacy #[id number], 183, cm, 08/12/21 12:05:00 EDT, Height, 71.3, kg, 08/08/21 0:23:00 EDT... Start Date: 08/12/21 Status: Ordered Vitamin B-12 1000 mcg oral tablet 1, tablet, By Mouth, Daily, # 28 tablet, Refills 5, Route to Pharmacy Electronically, [facility] STORE 71645, 183, cm, 08/05/20 8:57:00 EDT, Height Start Date: 03/10/21 Status: Ordered Zofran 4 mg oral tablet 1 tablet = 4 mg, By Mouth, Every 8 hours, PRN as needed for nausea/vomiting, for 5 days, # 20 tablet, 0 Refills, Acute 08/17/21 13:52:00 EDT, 08/12/21 13:52:00 EDT, Tablet, [facility]/pharmacy #[id number], Partial fill upon patient request if [...] artery disease by Rolando Rubin M.D. at [facility]. 3In the past; states this has resolved Social History Social History Type Response Smoking Status Never smoker entered on: 08/24/16 Sex
--- OUTSIDE RECORDS SUMMARY | 2023-11-18 12:37 | XMS_ITS | Continuity of Care Document ---
Author Organization [facility] Adult Address [address] [place] [id number]- Care Team Providers Care Radiologic Tech Name Role Phone Radha ODONNELL, Hannah Primary Care Physician [phone] Encounter [facility] [place] [facility] Date(s): 04/09/22 - 05/09/22 [facility] Adult [address] [place] [id number]- Allergies, Adverse Reactions, Alerts Substance Reaction Severity [...] 04/13/22 11:43:00 EST, Route to Pharmacy Electronically, [id number], 183, cm, 03/16/22 8:31:00 EDT, Height, 71.3, kg, 08/08/21 0:23:00 EDT, Dry Weight Start Date: 04/13/22 Status: Ordered amLODIPine 5 mg oral tablet 1 tablet, By Mouth, Daily, # 28 tablet, 4 Refills, Maintenance, 04/13/22 11:43:00 EST, [id number], 183, cm, 03/16/22 8:31:00 EDT, Height, 71.3, kg, 08/08/21 0:23:00 EDT, Dry Weight Start Date: 04/13/22 Status: Ordered atorvastatin 40 mg oral tablet 1 tablet, By Mouth, Daily, # 28 tablet, 5 Refills, 12/23/21 11:53:00 EDT, [facility]/pharmacy #[id number], 183, cm, 10/20/21 10:31:00 EDT, Height, 71.3, kg, 08/08/21 0:23:00 EDT, Dry Weight Start Date: 12/23/21 Status: Ordered buPROPion 150 mg/24 hours (XL) oral tablet, extended release See Instructions, TAKE 1 TABLET BY MOUTH EVERY 24 HOURS, # 28 tablet, 5 Refills, 03/18/22 11:05:00 EDT, [facility]/pharmacy #[id number], 28, TAKE 1 TABLET BY MOUTH EVERY 24 HOURS, 183, cm, 03/16/22 8:31:00 EDT, Height, 71.3, kg, 08/08/21 0:23:00 EDT, Dry Weight Start Date: 03/18/22 Status: Ordered buPROPion 150 mg/24 hours (XL) oral tablet, extended release 1 tablet, By Mouth, Every 24 hours, # 28 tablet, 2 Refills, [id number], 28, TAKE 1 TABLET BY MOUTH EVERY 24 HOURS, 183, cm, 08/12/21 14:20:00 EDT, Height, 71.3, kg, 08/08/21 0:23:00 EDT, Dry Weight Start Date: 09/25/21 Status: Ordered carvedilol 12.5 mg oral tablet 1, tablet, By Mouth, 2 times a day, # 56 tablet, Refills 5, Route to Pharmacy Electronically, [facility] 378[facility], 183, cm, 05/04/21 3:09:00 EST, Height, 81.7, kg, 04/16/21 3:06:00 EST, Dry Weight Start Date: 07/07/21 Status: Ordered carvedilol 12.5 mg oral tablet See Instructions, TAKE 1 TABLET BY MOUTH TWICE A DAY, # 56 tablet, Refills 5, Tot. Refills 5, 03/18/22 11:05:00 EDT, Instructions Replace Required Details, Route to Pharmacy Electronically, [facility]/pharmacy #[id number], 183, cm, 03/16/22 8:31:00 EDT, Height, 71... Start Date: 03/18/22 Status: Ordered clopidogrel 75 mg oral tablet 1, tablet, By Mouth, Daily, # 28 tablet, Refills 5, Route to Pharmacy Electronically, [facility], 183, cm, 05/04/21 3:09:00 EST, Height, 81.7, kg, 04/16/21 3:06:00 EST, Dry Weight Start Date: 07/02/21 Status: Ordered clopidogrel 75 mg oral tablet 75 mg, 1, tablet, By Mouth, Daily, for 30 days, # 30 tablet, Refills 5, Tot. Refills 5, Physician Stop 09/14/22 13:18:00 EDT, 03/18/22 13:18:00 EDT, Route to Pharmacy Electronically, [facility]/pharmacy #[id number], 183, cm, 03/16/22 8:31:00 EDT, Height, 71.3, kg,... Start Date: 03/18/22 Stop Date: 09/14/22 Status: Ordered Eliquis 5 mg oral tablet 1 tablet, By Mouth, 2 times a day, # 56 tablet, 6 Refills, [facility], 183, cm, 08/12/21 14:20:00 EDT, Height, 71.3, kg, 08/08/21 0:23:00 EDT, Dry Weight Start Date: 09/26/21 Status: Ordered furosemide 40 mg oral tablet 1, tablet, By Mouth, 2 times a day, # 56 tablet, Refills 2, Maintenance, 04/13/22 11:44:00 EST, Route to Pharmacy Electronically, [id number], 183, cm, 03/16/22 8:31:00 EDT, Height, 71.3, kg, 08/08/21 0:23:00 EDT, Dry Weight Start Date: 04/13/22 Status: Ordered hydrALAZINE 50 mg oral tablet 1 tablet, By Mouth, 3 times a day, # 84 tablet, 1 Refills, Maintenance, 04/13/22 12:20:00 EST, [facility], 183, cm, 03/16/22 8:31:00 EDT, Height, 71.3, kg, 08/08/21 0:23:00 EDT, Dry Weight Start Date: 04/13/22 Status: Ordered isosorbide mononitrate 60 mg oral tablet, extended release 1 tablet, By Mouth, Daily in AM, # 28 tablet, 4 Refills, Maintenance, 04/13/22 11:43:00 EST, [facility]27[facility], 183, cm, 03/16/22 8:31:00 EDT, Height, 71.3, kg, 08/08/21 0:23:00 EDT, Dry Weight Start Date: 04/13/22 Status: Ordered Mylanta Maximum Strength oral suspension 5 mL, By Mouth, 4 times a day, PRN for control of stomach acid, # 200 mL, 1 Refills, Maintenance, 08/12/21 13:46:00 EDT, Suspension, [facility]/pharmacy #[id number], Partial fill upon patient request if the prescription is for a schedule II opioid drug., 5 mL By M... Start Date: 08/12/21 Status: Ordered nitroglycerin 0.4 mg sublingual tablet 1 tablet = 0.4 mg, Sublingual, Every 5 minutes, PRN Chest Pain, # 25 tablet, 3 Refills, Maintenance, 08/24/19 15:40:00 EDT, [facility]/pharmacy #[id number], 183, cm, 05/25/19 15:06:00 EST, Height, 88.3, kg, 08/31/17 3:30:00 EDT, Dry Weight Start Date: 08/24/19 Stop Date: 12/22/19 Status: Ordered oxyCODONE 30 mg oral tablet 2 tablet = 60 mg, By Mouth, Every 3 hours, PHYSIOGNOMIST checked. fill on 05/10/22, # 224 tablet, 0 Refills, Acute 05/15/23 10:23:00 EST, 05/06/22 12:26:00 EST, [facility]/pharmacy #[id number], may partial fill upon request;, 183, cm, 03/16/22 8:31:00 EDT, Height, 71.3, kg... Start Date: 05/06/22 Stop Date: 05/15/23 Status: Ordered pantoprazole 40 mg oral delayed release tablet 1 tablet, By Mouth, Daily, for 30 days, # 30 tablet, 3 Refills, Physician Stop 07/16/22 13:20:00 EST, 03/18/22 13:20:00 EDT, 183, cm, 03/16/22 8:31:00 EDT, Height, 71.3, kg, 08/08/21 0:23:00 EDT, DryWeight Start Date: 03/18/22 Stop Date: 07/16/22 Status: Ordered Potassium Chloride (Ifu-Gefn-Rzi 10) 10 mEq oral tablet, extended release See Instructions, TAKE 2 TABLETS BY MOUTH EVERY MORNING AND TAKE 1 TABLET EVERY EVENING, # 84 tablet, 2 Refills, 03/18/22 13:18:00 EDT, [facility]/pharmacy #[id number], 183, cm, 03/16/22 8:31:00 EDT, Height, 71.3, kg, 08/08/21 0:23:00 EDT, Dry Weight Start Date: 03/18/22 Status: Ordered sertraline 100 mg oral tablet 1 tablet, By Mouth, Daily, # 28 tablet, 5 Refills, [facility], 183, cm, 10/20/21 10:31:00 EDT,Height, 71.3, kg, 08/08/21 0:23:00 EDT, Dry Weight Start Date: 11/30/21 Status: Ordered spironolactone 25 mg oral tablet 1, tablet, By Mouth, Daily, for 30 days, # 30 tablet, Refills 3, Tot. Refills 3, Physician Stop 07/16/22 13:20:00 EST, 03/18/22 13:20:00 EDT, Route to Pharmacy Electronically, [facility]/pharmacy #[id number], 183, cm, 03/16/22 8:31:00 EDT, Height, 71.3, kg, 08/08/... Start Date: 03/18/22 Stop Date: 07/16/22 Status: Ordered sucralfate 1 gm oral tablet See Instructions, TAKE 1 TABLET BY MOUTH 3 TIMES A DAY BEFORE MEALS AND BEDTIME, # 112 tablet, Refills 2, Tot. Refills 2, Maintenance, 02/24/22 9:45:00 EDT, Instructions Replace Required Details, Route to Pharmacy Electronically, [facility]/pharmacy #[id number], 1... Start Date: 02/24/22 Status: Ordered sucralfate 1 gm oral tablet 1, tablet, By Mouth, 3 times a day before meals, AND BEDTIME., # 112 tablet, Refills 2, Tot. Refills 2, 08/12/21 13:47:00 EDT, Route to Pharmacy Electronically, [facility]/pharmacy #[id number], 183, cm, 08/12/21 12:05:00 EDT, Height, 71.3, kg, 08/08/21 0:23:00 EDT... Start Date: 08/12/21 Status: Ordered Vitamin B-12 1000 mcg oral tablet 1, tablet, By Mouth, Daily, # 28 tablet, Refills 5, Route to Pharmacy Electronically, [facility] 48190, 183, cm, 08/12/21 14:20:00 EDT, Height, 71.3, [...] Rubin M.D. at [facility]. 4In the past; states this has resolved Social History Social History Type Response Smoking Status Never smoker entered on: 08/24/16 Sex Patient Care team information Care Team Personnel Name: Irish Samuel RN Position: [facility] RN Member Role: Primary Care Nurse Name: Mireya Ramsey Position: [facility] RAMOS Supv Member Role: Primary Care Nurse Name: Rhea Betancur RN Position: [facility] SN RN Member Role: Primary Care Nurse Name: Hugo Ayala RN Position: [facility] RN Member Role: Primary Care Nurse Name: Lorna Faust RN Position: [facility] RN Member Role: Primary Care Nurse Name: Wilner Feliciano RN Position: [facility] RN Supv Member Role: Primary Care Nurse Name: David Gonzalez MD Position: [facility] Renal MD Member Role: Lifetime Consulting Physician Address: Address: [address] [place] [address], [address] [facility] [place] [address]- Name: Hannah Garcia NP Position: [facility] PCO Associate Professional Member Role: PCP Address: Address: [address] [place] [address], [address] [place] [address]- Name: Eduin Arias MD Position: [facility] Physician (General Medicine) Member Role: Lifetime Consulting Physician Address: Address: [address] [place] [address], [address] [place] [address]- [place] Name: Ana Herrera RN Position: [facility] RN Member Role: Primary Care Nurse Name: Carlos Montez RN Position: [facility] RN Member Role: Primary Care Nurse Name: Cadence Quach RN Position: [facility] OB RN Member Role: Primary Care Nurse Name: Maggy Tsang RN Position: [facility] RN [...] Care Nurse Name: Geovanna Hill RN Position: [facility] RN [...] Role: Lifetime Consulting Physician Address: Address: [address] [place] [address] [facility] [address] Name: Yesica Serna RN Position: [facility] OB RN Member Role: Primary Care Nurse Name: Jesusita Lou RN Position: [facility] OB RN Member Role: Primary Care Nurse Name: Karen Quach RN Position: [facility] PCO w/OE and EZ Script Member Role: Primary Care Nurse Name: Marshall Byrd RN Position: [facility] RN Member Role: Primary Care Nurse Care Team Related Persons Name: DUTCH MAR Address: [place] [address] Name: ALL AYERS Address: home [address] [place] [address] Name: ALL MANZANARES Address: home [address] [place] [address] Name: CHRISTEN GRIMALDO Address: home [address] [place] [address]
--- OUTSIDE RECORDS SUMMARY | 2023-11-18 12:37 | XMS_ITS | Continuity of Care Document ---
Author Organization [facility] Adult Address [address] [place] [address]- Care Team Providers Care Salicylic Acid Blender Name Role Phone Radha ODONNELL, Hannah Primary Care Physician [phone] Encounter [facility] [place] Date(s): 01/22/20 - 02/21/20 [facility] Adult [address] [place] [id number]- [facility] Allergies, Adverse Reactions, Alerts Substance [...] Replace Required Details, Route to Pharmacy Electronically, [facility]/pharmacy #[id number], 183, cm, 11/05/19 9:35:0... Start Date: 12/24/19 Status: Ordered amLODIPine 5 mg oral tablet 5 mg, 1, tablet, By Mouth, Daily, # 30 tablet, Refills 5, Tot. Refills 5, Maintenance, 11/26/19 14:40:00 EDT, Route to Pharmacy Electronically, [facility]/pharmacy #[id number], 183, cm, 11/05/19 9:35:00 EDT, Height, Dry Weight Start Date: 11/26/19 Stop Date: 05/24/20 Status: Ordered atorvastatin 40 mg oral tablet See Instructions, TAKE 1 TABLET BY MOUTH EVERY DAY, # 28 tablet, 5 Refills, Soft Stop, 12/27/19 14:47:00 EDT, [facility]/pharmacy #[id number], 183, cm, 11/05/19 9:35:00 EDT, Height, Dry Weight Start Date: 12/27/19 Status: Ordered buPROPion 150 mg/24 hours (XL) oral tablet, extended release 1 tablet = 150 mg, By Mouth, Every 24 hours, # 30 tablet, 5 Refills, Maintenance, 02/18/20 10:40:00EDT, ER Tablet, [facility]/pharmacy #[id number], Bubble pack and delivery, 1 tablet By Mouth Every 24 hours, 183, cm, 02/05/20 12:53:00 EDT, Height, Dry Weight Start Date: 02/18/20 Status: Ordered carvedilol 12.5 mg oral tablet 12.5 mg, 1, tablet, By Mouth, 2 times a day, # 60 tablet, Refills 5, Tot. Refills 5, Soft Stop, 10/26/19 11:37:00 EDT, Route to Pharmacy Electronically, [facility]/pharmacy #[id number], 183, cm, 05/25/19 15:06:00EST, Height Start Date: 10/26/19 Status: Ordered clopidogrel 75 mg oral tablet 75 mg, 1, tablet, By Mouth, Daily, # 30 tablet, Refills 5, Tot. Refills 5, Maintenance, 12/24/19 13:07:00 EDT, Route to Pharmacy Electronically, [facility]/pharmacy #[id number], 183, cm, 11/05/19 9:35:00 EDT, Height, Dry Weight Start Date: 12/24/19 Status: Ordered [facility] B-12 1,000 MCG TABLET See Instructions, # 30 tablet, TAKE 1 TABLET BY MOUTH EVERY DAY, [facility]/pharmacy #[id number] Start Date: 03/20/19 Status: Ordered docusate sodium 100 mg oral capsule 100 mg, 1, capsule, By Mouth, 3 times a day, Bubble Pack and Delivery, # 90 capsule, Refills 5, Tot. Refills 5, Maintenance, 11/22/17 13:28:22 EDT, Route to Pharmacy Electronically, [id number], [facility]/pharmacy #[id number] Start Date: 11/22/17 Stop Date: 05/21/18 Status: Ordered Eliquis 5 mg oral tablet 1 tablet = 5 mg, By Mouth, 2 times a day, # 60 tablet, 5 Refills, Maintenance, 02/18/20 14:47:00 EDT, Tablet, [facility]/pharmacy #[id number], 183, cm, 02/05/20 12:53:00 EDT, Height, Dry Weight Start Date: 02/18/20 Status: Ordered furosemide 40 mg oral tablet 40 mg, 1, tablet, By Mouth, 2 times a day, # 60 tablet, Refills 2, Tot. Refills 2, Soft Stop, 02/06/20 10:28:00 EDT, Route to Pharmacy Electronically, [facility]/pharmacy #[id number], this replaces previous script. Pt is on 2 tabs daily, 183, cm, 02/05/20 12:53:00... Start Date: 02/06/20 Stop Date: 05/06/20 Status: Ordered hydrALAZINE 50 mg oral tablet 1 tablet = 50 mg, By Mouth, 3 times a day, dose change, # 90 tablet, 1 Refills, Maintenance, 09/10/19 10:37:00 EDT, Tablet, [facility]/pharmacy #[id number], 183, cm, 05/25/19 15:06:00 EST, Height Start Date: 09/10/19 Stop Date: 11/09/19 Status: Ordered isosorbide mononitrate 60 mg oral tablet, extended release 60 mg, 1, tablet, By Mouth, Daily in AM, # 30 tablet, Refills 5, Tot. Refills 5, Soft Stop, 09/11/19 14:15:00 EDT, Route to Pharmacy Electronically, [facility]/pharmacy #[id number], 183, cm, 05/25/19 15:06:00 EST, Height, Dry Weight Start Date: 09/11/19 Stop Date: 03/09/20 Status: Ordered NIFEdipine 30 mg oral tablet, extended release 30 mg, 1, tablet, By Mouth, Daily, Bubble Pack and Delivery, # 30 tablet, Refills 3, Tot. Refills 3, Maintenance, 03/27/18 8:38:30 EST, Route to Pharmacy Electronically, [id number], [facility]/pharmacy #[id number] Start Date: 03/27/18 Status: [...] 60 mg, By Mouth, Every 3 hours, ORDINARY SEAMAN checked, # 224 tablet, 0 Refills, Acute 05/15/20 10:26:00 EST, 02/13/20 12:56:00 EDT, [facility]/pharmacy #[id number], may partial fill upon request;, 02/22/20, [...] TAKE 1 TABLET BY MOUTH EVERY DAY, [facility]/pharmacy #[id number] Start Date: 02/26/19 Status: Ordered potassium chloride 10 mEq oral tablet, extended release See Instructions, take 2 tabs in am and 1 tab in pm, # 90 tablet, 2 Refills, Maintenance, 02/06/20 16:13:00 EDT, ER Tablet, [facility]/pharmacy #[id number], 183, cm, 02/05/20 12:53:00 EDT, Height Start Date: 02/06/20 Status: Ordered sertraline 100 mg oral tablet 1 tablet = 100 mg, By Mouth, Daily, # 90 tablet, 1 Refills, Maintenance, 02/18/20 14:47:00 EDT, [id number] Bubble [facility] delivery, 183, cm, 02/05/20 12:53:00 EDT, Height Start Date: 02/18/20 Stop Date: 08/16/20 Status: Ordered spironolactone 25 mg oral tablet 25 mg, 1, tablet, By Mouth, Daily, # 30 tablet, Refills 1, Tot. Refills 1, Soft Stop, 02/18/20 14:47:00 EDT, [id number], cm, 02/05/20 12:53:00 EDT, Height Start Date: 02/18/20 Stop Date: 04/18/20 Status: Ordered sucralfate 1 gm oral tablet 1 Gm, 1, tablet, By Mouth, 3 times a day before meals and bedtime, # 120 tablet, Refills 2, Tot. Refills 2, Maintenance, 02/13/20 15:20:00 EDT, [id number] 183, cm, 02/05/20 12:53:00 EDT, Height, Dry Weight Start Date: 02/13/20 Status: Ordered Vitamin B-12 1000 mcg oral tablet 1,000 mcg, 1, tablet, By Mouth, Daily, # 30 tablet, Refills 1, Tot. Refills 1, Soft Stop, 02/18/20 14:47:00 EDT, [id number] 183, cm, 02/05/20 12:53:00 EDT, Height [...] Rubin M.D. at [facility]. 5In the past; states this has resolved Social History Social History Type Response Smoking Status Never smoker entered on: 08/24/16 Sex
--- OUTSIDE RECORDS SUMMARY | 2023-11-18 12:37 | XMS_ITS | Continuity of Care Document ---
Author Organization [facility] Address [address] [place] [address]- Care Team Providers Care Software Qa System Specialist Name Role Phone Radha ORACLE DEVELOPER, Hannah Primary Care Physician [phone] Encounter [facility] [place] Date(s): 02/26/22 - 03/28/22 [facility] [address] [place] [id number]- Allergies, Adverse Reactions, Alerts Substance Reaction Severity [...] 2, 12/23/21 11:51:00 EDT, Route toPharmacy Electronically, [facility]/pharmacy #[id number], 183, cm, 10/20/21 10:31:00 EDT, Height, 71.3, kg, 08/08/21 0:23:00 EDT, Dry Weight Start Date: 12/23/21 Status: Ordered amLODIPine 5 mg oral tablet 1 tablet, By Mouth, Daily, # 28 tablet, 4 Refills, [facility] [id number], 183, cm, 10/20/21 10:31:00 EDT,Height, 71.3, kg, 08/08/21 0:23:00 EDT, Dry Weight Start Date: 10/27/21 Status: Ordered atorvastatin 40 mg oral tablet 1 tablet, By Mouth, Daily, # 28 tablet, 5 Refills, 12/23/21 11:53:00 EDT, [facility]/pharmacy #[id number], 183, cm, 10/20/21 10:31:00 EDT, Height, 71.3, kg, 08/08/21 0:23:00 EDT, Dry Weight Start Date: 12/23/21 Status: Ordered buPROPion 150 mg/24 hours (XL) oral tablet, extended release See Instructions, TAKE 1 TABLET BY MOUTH EVERY 24 HOURS, # 28 tablet, 5 Refills, 03/18/22 11:05:00 EDT, [facility]/pharmacy #[id number], 28, TAKE 1 TABLET BY MOUTH EVERY 24 HOURS, 183, cm, 03/16/22 8:31:00 EDT, Height, 71.3, kg, 08/08/21 0:23:00 EDT, Dry Weight Start Date: 03/18/22 Status: Ordered buPROPion 150 mg/24 hours (XL) oral tablet, extended release 1 tablet, By Mouth, Every 24 hours, # 28 tablet, 2 Refills, [facility] [id number], 28, TAKE 1 TABLET BY MOUTH EVERY 24 HOURS, 183, cm, 08/12/21 14:20:00 EDT, Height, 71.3, kg, 08/08/21 0:23:00 EDT, Dry Weight Start Date: 09/25/21 Status: Ordered carvedilol 12.5 mg oral tablet 1, tablet, By Mouth, 2 times a day, # 56 tablet, Refills 5, Route to Pharmacy Electronically, [facility] [id number], 183, cm, 05/04/21 3:09:00 EST, Height, 81.7, kg, 04/16/21 3:06:00 EST, Dry Weight Start Date: 07/07/21 Status: Ordered carvedilol 12.5 mg oral tablet See Instructions, TAKE 1 TABLET BY MOUTH TWICE A DAY, # 56 tablet, Refills 5, Tot. Refills 5, 03/18/22 11:05:00 EDT, Instructions Replace Required Details, Route to Pharmacy Electronically, [facility]/pharmacy #[id number], 183, cm, 03/16/22 8:31:00 EDT, Height, 71... Start Date: 03/18/22 Status: Ordered clopidogrel 75 mg oral tablet 1, tablet, By Mouth, Daily, # 28 tablet, Refills 5, Route to Pharmacy Electronically, [facility]ORE [id number], 183, cm, 05/04/21 3:09:00 EST, Height, 81.7, kg, 04/16/21 3:06:00 EST, Dry Weight Start Date: 07/02/21 Status: Ordered clopidogrel 75 mg oral tablet 75 mg, 1, tablet, By Mouth, Daily, for 30 days, # 30 tablet, Refills 5, Tot. Refills 5, Physician Stop 09/14/22 13:18:00 EDT, 03/18/22 13:18:00 EDT, Route to Pharmacy Electronically, [facility]/pharmacy #[id number], 183, cm, 03/16/22 8:31:00 EDT, Height, 71.3, kg,... Start Date: 03/18/22 Stop Date: 09/14/22 Status: Ordered Eliquis 5 mg oral tablet 1 tablet, By Mouth, 2 times a day, # 56 tablet, 6 Refills, [facility] [id number], 183, cm, 08/12/21 14:20:00 EDT, Height, 71.3, kg, 08/08/21 0:23:00 EDT, Dry Weight Start Date: 09/26/21 Status: Ordered furosemide 40 mg oral tablet 1, tablet, By Mouth, 2 times a day, # 56 tablet, Refills 2, Tot. Refills 2, 12/23/21 11:52:00 EDT, Route to Pharmacy Electronically, [facility]/pharmacy #[id number], 183, cm, 10/20/21 10:31:00 EDT, Height, 71.3, kg, 08/08/21 0:23:00 EDT, Dry Weight Start Date: 12/23/21 Status: Ordered hydrALAZINE 50 mg oral tablet 1 tablet = 50 mg, By Mouth, 3 times a day, dose change, # 90 tablet, 1 Refills, Maintenance, 02/24/22 12:54:00 EDT, Tablet, [facility]/pharmacy #[id number], 183, cm, 10/20/21 10:31:00 EDT, Height, 71.3, kg, 08/08/21 0:23:00 EDT, Dry Weight Start Date: 02/24/22 Stop Date: 04/25/22 Status: Ordered isosorbide mononitrate 60 mg oral tablet, extended release 1 tablet, By Mouth, Daily in AM, # 28 tablet, 4 Refills, [facility] 14628, 183, cm, 10/20/21 10:31:00 EDT, Height, 71.3, [...] 60 mg, By Mouth, Every 3 hours, LAUNDRY PRESSER checked., # 224 tablet, 0 Refills, Acute 05/14/23 10:29:00 EST, 03/16/22 10:48:00 EDT, [facility]/pharmacy #[id number], may partial fill [...] Stop Date: 07/16/22 Status: Ordered Potassium Chloride (Wrl-Rgwo-Fmv 10) 10 mEq oral tablet, extended release See Instructions, TAKE 2 TABLETS BY MOUTH EVERY MORNING AND TAKE 1 TABLET EVERY EVENING, # 84 tablet, 2 Refills, 03/18/22 13:18:00 EDT, [facility]/pharmacy #[id number], 183, cm, 03/16/22 8:31:00 EDT, Height, 71.3, kg, 08/08/21 0:23:00 EDT, Dry Weight Start Date: 03/18/22 Status: Ordered sertraline 100 mg oral tablet 1 tablet, By Mouth, Daily, # 28 tablet, 5 Refills, [facility]ORE [id number], 183, cm, 10/20/21 10:31:00 EDT,Height, 71.3, kg, 08/08/21 0:23:00 EDT, Dry Weight Start Date: 11/30/21 Status: Ordered spironolactone 25 mg oral tablet 1, tablet, By Mouth, Daily, for 30 days, # 30 tablet, Refills 3, Tot. Refills 3, Physician Stop 07/16/22 13:20:00 EST, 03/18/22 13:20:00 EDT, Route to Pharmacy Electronically, [facility]/pharmacy #[id number], 183, cm, 03/16/22 8:31:00 EDT, Height, 71.3, kg, 08/08/... Start Date: 03/18/22 Stop Date: 07/16/22 Status: Ordered sucralfate 1 gm oral tablet See Instructions, TAKE 1 TABLET BY MOUTH 3 TIMES A DAY BEFORE MEALS AND BEDTIME, # 112 tablet, Refills 2, Tot. Refills 2, Maintenance, 02/24/22 9:45:00 EDT, Instructions Replace Required Details, Route to Pharmacy Electronically, [facility]/pharmacy #[id number], 1... Start Date: 02/24/22 Status: Ordered [...] 5, Route to Pharmacy Electronically, [id number], 183, cm, 08/12/21 14:20:00 EDT, Height, 71.3, [...] Team Personnel Name: Irish Samuel RN Position: [facility] RN Member Role: Primary Care Nurse Name: [...] Care Nurse Name: Wilner Feliciano RN Position: [facility] RN Supv Member Role: Primary Care Nurse Name: David Gonzalez MD Position: [facility] Renal MD Member Role: Lifetime Consulting Physician Address: Address: [address], [address] [facility] [place] [address]- [place] Name: Hannah Garcia NP Position: [facility] PCO Associate Professional Member Role: PCP Address: Address: [address] [place] [address], [address] [place] [address]- [place] Name: Eduin Arias MD Position: [facility] Physician (General Medicine) Member Role: Lifetime Consulting Physician Address: Address: [address] [place] [address], [address] [place] [address]- [place] Name: Ana Herrera RN Position: [facility] RN Member Role: Primary Care Nurse Name: Carlos Montez RN Position: [facility] [...] Care Nurse Name: Janneth Lerner RN Position: [facility] RN Member Role: Primary Care Nurse Name: Hugo Bateman RN Position: [facility] RN Member Role: Primary Care Nurse Name: Petros Lvey RN Position: [facility] [...] Role: Lifetime Consulting Physician Address: Address: [address] [place] [address] [facility] [address] Name: Jesusita Lou RN [facility]: [facility] [...] Related Persons Name: DUTCH MAR Address: [place] [address] Name: ALL AYERS Address: home [address] [place] [address] Name: ALL MANZANARES Address: home [address] [place] [address] Name: CHRISTEN GRIMALDO Address: home [address] [place] [address]
--- OUTSIDE RECORDS SUMMARY | 2023-11-18 12:37 | XMS_ITS | Continuity of Care Document ---
Author Organization [facility] Address [address] [place] [address]- Care Team Providers Care Waste Baler Name Role Phone Radha ODONNELL, Hannah Primary Care Physician Encounter [facility] [place] Date(s): 02/05/20 - 03/06/20 [facility] [address] [place] [phone]- [facility] Allergies, Adverse Reactions, Alerts Substance Reaction [...] Replace Required Details, Route to Pharmacy Electronically, [facility]/pharmacy #[id number], 183, cm, 11/05/19 9:35:0... Start Date: 12/24/19 Status: Ordered amLODIPine 5 mg oral tablet 5 mg, 1, tablet, By Mouth, Daily, # 30 tablet, Refills 5, Tot. Refills 5, Maintenance, 11/26/19 14:40:00 EDT, Route to Pharmacy Electronically, [facility]/pharmacy #[id number], 183, cm, 11/05/19 9:35:00 EDT, Height, Dry Weight Start Date: 11/26/19 Stop Date: 05/24/20 Status: Ordered atorvastatin 40 mg oral tablet See Instructions, TAKE 1 TABLET BY MOUTH EVERY DAY, # 28 tablet, 5 Refills, Soft Stop, 12/27/19 14:47:00 EDT, [facility]/pharmacy #[id number], 183, cm, 11/05/19 9:35:00 EDT, Height, Dry Weight Start Date: 12/27/19 Status: Ordered buPROPion 150 mg/24 hours (XL) oral tablet, extended release 1 tablet = 150 mg, By Mouth, Every 24 hours, # 30 tablet, 5 Refills, Maintenance, 02/18/20 10:40:00EDT, ER Tablet, [facility]/pharmacy #[id number], Bubble pack and delivery, 1 tablet By Mouth Every 24 hours, 183, cm, 02/05/20 12:53:00 EDT, Height, Dry Weight Start Date: 02/18/20 Status: Ordered carvedilol 12.5 mg oral tablet 12.5 mg, 1, tablet, By Mouth, 2 times a day, # 60 tablet, Refills 5, Tot. Refills 5, Soft Stop, 10/26/19 11:37:00 EDT, Route to Pharmacy Electronically, [facility]/pharmacy #[id number], 183, cm, 05/25/19 15:06:00EST, Height Start Date: 10/26/19 Status: Ordered clopidogrel 75 mg oral tablet 75 mg, 1, tablet, By Mouth, Daily, # 30 tablet, Refills 5, Tot. Refills 5, Maintenance, 12/24/19 13:07:00 EDT, Route to Pharmacy Electronically, [facility]/pharmacy #[id number], 183, cm, 11/05/19 9:35:00 EDT, Height, Dry Weight Start Date: 12/24/19 Status: Ordered [facility] B-12 1,000 MCG TABLET See Instructions, # 30 tablet, TAKE 1 TABLET BY MOUTH EVERY DAY, [facility]/pharmacy #[id number] Start Date: 03/20/19 Status: Ordered docusate sodium 100 mg oral capsule 100 mg, 1, capsule, By Mouth, 3 times a day, Bubble Pack and Delivery, # 90 capsule, Refills 5, Tot. Refills 5, Maintenance, 11/22/17 13:28:22 EDT, Route to Pharmacy Electronically, [id number], [facility]/pharmacy #[id number] Start Date: 11/22/17 Stop Date: 05/21/18 Status: Ordered Eliquis 5 mg oral tablet 1 tablet = 5 mg, By Mouth, 2 times a day, # 60 tablet, 5 Refills, Maintenance, 02/18/20 14:47:00 EDT, Tablet, [facility]/pharmacy #[id number], 183, cm, 02/05/20 12:53:00 EDT, Height, Dry Weight Start Date: 02/18/20 Status: Ordered furosemide 40 mg oral tablet 40 mg, 1, tablet, By Mouth, 2 times a day, # 60 tablet, Refills 2, Tot. Refills 2, Soft Stop, 02/06/20 10:28:00 EDT, Route to Pharmacy Electronically, [facility]/pharmacy #[id number], this replaces previous script. Pt is on 2 tabs daily, 183, cm, 02/05/20 12:53:00... Start Date: 02/06/20 Stop Date: 05/06/20 Status: Ordered hydrALAZINE 50 mg oral tablet 1 tablet = 50 mg, By Mouth, 3 times a day, dose change, # 90 tablet, 1 Refills, Maintenance, 09/10/19 10:37:00 EDT, Tablet, [facility]/pharmacy #[id number], 183, cm, 05/25/19 15:06:00 EST, Height Start Date: 09/10/19 Stop Date: 11/09/19 Status: Ordered isosorbide mononitrate 60 mg oral tablet, extended release 60 mg, 1, tablet, By Mouth, Daily in AM, # 30 tablet, Refills 5, Tot. Refills 5, Soft Stop, 09/11/19 14:15:00 EDT, Route to Pharmacy Electronically, [facility]/pharmacy #[id number], 183, cm, 05/25/19 15:06:00 EST, Height, Dry Weight Start Date: 09/11/19 Stop Date: 03/09/20 Status: Ordered NIFEdipine 30 mg oral tablet, extended release 30 mg, 1, tablet, By Mouth, Daily, Bubble Pack and Delivery, # 30 tablet, Refills 3, Tot. Refills 3, Maintenance, 03/27/18 8:38:30 EST, Route to Pharmacy Electronically, [id number], [facility]/pharmacy #[id number] Start Date: 03/27/18 Status: Ordered nitroglycerin 0.4 mg sublingual tablet 1 tablet = 0.4 mg, Sublingual, Every 5 minutes, PRN Chest Pain, # 25 tablet, 3 Refills, Maintenance, 08/24/19 15:40:00 EDT, 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/pharmacy #[id number], may partial fill upon [...] TAKE 1 TABLET BY MOUTH EVERY DAY, [facility]/pharmacy #[id number] Start Date: 02/26/19 Status: Ordered potassium chloride 10 mEq oral tablet, extended release See Instructions, take 2 tabs in am and 1 tab in pm, # 90 tablet, 2 Refills, Maintenance, 02/06/20 16:13:00 EDT, ER Tablet, [facility]/pharmacy #[id number], 183, cm, 02/05/20 12:53:00 EDT, Height Start Date: 02/06/20 Status: Ordered sertraline 100 mg oral tablet 1 tablet = 100 mg, By Mouth, Daily, # 90 tablet, 1 Refills, Maintenance, 02/18/20 14:47:00 EDT, [id number], 183, cm, 02/05/20 12:53:00 EDT, Height Start Date: 02/18/20 Stop Date: 08/16/20 Status: Ordered spironolactone 25 mg oral tablet 25 mg, 1, tablet, By Mouth, Daily, # 30 tablet, Refills 1, Tot. Refills 1, Soft Stop, 02/18/20 14:47:00 EDT, [id number], cm, 02/05/20 12:53:00 EDT, Height Start Date: 02/18/20 Stop Date: 04/18/20 Status: Ordered sucralfate 1 gm oral tablet 1 Gm, 1, tablet, By Mouth, 3 times a day before meals and bedtime, # 120 tablet, Refills 2, Tot. Refills 2, Maintenance, 02/13/20 15:20:00 EDT, [id number], cm, 02/05/20 12:53:00 EDT, Height, Dry Weight Start Date: 02/13/20 Status: Ordered Vitamin B-12 1000 mcg oral tablet 1,000 mcg, 1, tablet, By Mouth, Daily, # 30 tablet, Refills 1, Tot. Refills 1, Soft Stop, 02/18/20 14:47:00 EDT, [id number], cm, 02/05/20 12:53:00 EDT, Height [...] artery disease by Rolando Rubin M.D. at [facility]. 5In the past; states this has resolved Social History Social History Type Response Smoking Status Never smoker entered on: 08/24/16 Sex
--- OUTSIDE RECORDS SUMMARY | 2023-11-18 12:37 | XMS_ITS | Continuity of Care Document ---
Author Organization [facility] Adult Address [address] [place] [address]- Care Team Providers Care Jewelry Inspector Name Role Phone Radha ODONNELL, Hannah Primary Care Physician Encounter [facility] [place] Date(s): 05/12/23 - 06/11/23 [facility] [address] [place] [id number]- Allergies, Adverse Reactions, Alerts Substance Reaction Severity [...] 01/09/23 7:22:00 EDT, Route to Pharmacy Electronically, [id number], 183, cm, 10/08/22 16:18:00 EDT, Height, 71.3, kg, 08/08/21 0:23:00 EDT, Dry Weight Start Date: 01/09/23 Status: Ordered amLODIPine 5 mg oral tablet 1 tablet, By Mouth, Daily, # 28 tablet, 5 Refills, Maintenance, 11/25/22 16:21:00 EDT, [facility] 08102, 183, cm, 10/08/22 16:18:00 EDT, Height, 71.3, kg, 08/08/21 0:23:00 EDT, Dry Weight Start Date: 11/25/22 Status: Ordered atorvastatin 40 mg oral tablet 1 tablet, By Mouth, Daily, # 28 tablet, 2 Refills, Maintenance, 01/09/23 7:23:00 EDT, [facility], 183, cm, 10/08/22 16:18:00 EDT, Height, 71.3, [...] EDT, Route to Pharmacy Electronically, [facility], 183, cm, 10/08/22 16:18:00 EDT, Height, 71.3, [...] 06/08/23 14:08:00 EST, [id number], cm, 05/10/23 11:59:00 EST, [...] 56 tablet, 6 Refills, [facility] 45368, 183, cm, 08/12/21 14:20:00 EDT, Height, 71.3, [...] Maintenance, 04/27/23 13:02:00 EST, [facility] 26822, 183, cm, 03/28/23 11:43:00 EST, Height, 71.3, [...] 1-2 tablet, By Mouth, Every 3 hours, 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 fill 06/08/23, # 98 tablet, 0 Refills, Maintenance, 06/07/23 16:16:00 EST, [facility]/pharmacy #[id number], may partial fill [...] Start Date: 11/30/22 Status: Ordered Potassium Chloride (Bvg-Sbal-Fep 10) 10 mEq oral tablet, extended release See Instructions, TAKE 2 TABLETS BY MOUTH EVERY MORNING AND TAKE 1 TABLET EVERY EVENING, # 84 tablet, 2 Refills, Maintenance, 04/27/23 13:02:00 EST, [facility], 183, cm, 03/28/23 11:43:00 EST, Height, 71.3, kg, 08/08/21 0:23:00 EDT, Dry Weight Start Date: 04/27/23 Status: Ordered sertraline 100 mg oral tablet 1 tablet, By Mouth, Daily, # 28 tablet, 5 Refills, Maintenance, 06/09/22 8:26:00 EST, [facility], 183, cm, 03/16/22 8:31:00 EDT, Height, 71.3, kg, 08/08/21 0:23:00 EDT, Dry Weight Start Date: 06/09/22 Status: Ordered sertraline 100 mg oral tablet See Instructions, TAKE 1 TABLET BY MOUTH EVERY DAY, # 28 tablet, 5 Refills, Maintenance, 11/30/22 15:39:00 EDT, [facility], 183, cm, 10/08/22 16:18:00 EDT, Height, 71.3, kg, 08/08/21 0:23:00 EDT, Dry Weight Start Date: 11/30/22 Status: Ordered spironolactone 25 mg oral tablet 1, tablet, By Mouth, Daily, # 28 tablet, Refills 4, Maintenance, 07/08/22 11:30:00 EST, Route to Pharmacy Electronically, [facility], 183, cm, 03/16/22 8:31:00 EDT, Height, 71.3, kg, 08/08/21 0:23:00 EDT, Dry Weight Start Date: 07/08/22 Status: Ordered spironolactone 25 mg oral tablet See Instructions, TAKE 1 TABLET BY MOUTH EVERY DAY, # 28 tablet, Refills 4, Maintenance, 11/30/22 15:38:00 EDT, Instructions Replace Required Details, Route to Pharmacy Electronically, [facility] 9[facility]96, 183, cm, 10/08/22 16:18:00 EDT, Height, 71.3, kg,... Start Date: 11/30/22 Status: Ordered sucralfate 1 gm oral tablet 1, tablet, By Mouth, 3 times a day before meals, AND BEDTIME., # 112 tablet, Refills 5, Maintenance, 02/04/23 16:32:00 EDT, Route to Pharmacy Electronically, [facility] 66348, 183, cm, 10/08/22 16:18:00 EDT, Height, 71.3, [...] artery disease by Rolando Rubin M.D. at [facility]. 4In the past; states this has resolved Social History Social History Type Response Smoking Status Never smoker entered on: 08/24/16 Sex Patient Care team information Care Team Personnel Name: Irish Samuel RN Position: [facility] RN Member Role: Primary Care Nurse Name: Mireya Ramsey Position: [facility] RN Supv Member Role: Primary Care Nurse Name: Rhea Betancur RN Position: [facility] SN RN Member Role: Primary Care Nurse Name: Hugo Ayala RN Position: [facility] RN Member Role: Primary Care Nurse Name: Lorna Faust RN Position: [facility] RN Member Role: Primary Care Nurse Name: David Gonzalez MD Position: [facility] Renal MD Member Role: Lifetime Consulting Physician Address: Address: [address] [place] [address] [address] [facility] [place] [address]- [place] Name: Hannah Garcia NP Position: [facility] PCO Associate Professional Member Role: PCP Address: Address: [address] [place] [address], [address] [place] [address]- [place] Name: Eduin Arias MD Position: [facility] Renal MD Member Role: Lifetime Consulting Physician Address: Address: [address] [place] [address], [address] [place] [address]- [place] Name: Ana Herrera RN Position: [facility] AMB Nurse Member Role: Primary Care Nurse Name: Carlos Montez RN Position: [facility] Outreach Member Role: Primary Care Nurse Name: Cadence Quach RN Position: [facility] OB RN Member Role: Primary Care Nurse Name: Maggy Tsang RN Position: [facility] RN Member Role: Primary Care Nurse Name: Keyla Keys RN Position: [facility] SN RN Member Role: Primary Care Nurse Name: Марина Guevara RN Position: [facility] RN Member Role: Primary Care Nurse Name: Lyn Helms RN Position: [facility] RN Member Role: Primary Care Nurse Name: Tatum Biswas RN Position: [facility] RN Member Role: Primary Care Nurse Name: Hugo Bateman RN Position: [facility] ED RN W/OE and Tasks Member Role: Primary Care Nurse Name: Petros Levy RN Position: [facility] RN Member Role: Primary Care Nurse Name: Izabella Braun RN Position: [facility] RN Member Role: Primary Care Nurse Name: Lyndsay King RN Position: [facility] RN Member Role: Primary Care Nurse Name: Hafsa Goyal RN Position: [facility] RN Member Role: Primary Care Nurse Name: Rosalio Jack RN Position: [facility] RN Member Role: Primary Care Nurse Name: Carmela Houser RN Position: [facility] SN RN Member Role: Primary Care Nurse Name: Michael Dickson RN Position: [facility] RN Member Role: Primary Care Nurse Name: Jessica Lema RN Position: [facility] RN Member Role: Primary Care Nurse Name: Phu Flynn MD Position: [facility] Renal MD Member Role: Lifetime Consulting Physician Address: Address: [address] [place] [address] [facility] [address] Name: Yesica Serna RN Position: [facility] OB RN Member Role: Primary Care Nurse Name: Jesusita Lou RN Position: [facility] OB RN Member Role: Primary Care Nurse Name: Husam Elizalde RN Position: [facility] RN Member Role: Primary Care Nurse Name: Marshall Byrd RN Position: [facility] RN Member Role: Primary Care Nurse Care Team Related Persons Name: DUTCH MAR Address: home [place], [place] Name: ALL AYERS Address: home [address] [place], [place] Name: ALL MANZANARES Address: home [address] [place], [place] Name: CHRISTEN GRIMALDO Address: home [address] [place], [place]
--- OUTSIDE RECORDS SUMMARY | 2023-11-18 12:37 | XMS_ITS | Continuity of Care Document ---
Author Organization [facility] Adult Address [address] [place] [address]- Care Team Providers Care Frickertron Checker Name Role Phone Radha ODONNELL, Hannah Primary Care Physician [phone] [place] [facility] [place]12[place]20 [place] 05/12/20 [facility] Adult [address] [place] [id number]- Allergies, Adverse Reactions, Alerts Substance Reaction Severity [...] Replace Required Details, Route to Pharmacy Electronically, [facility]/pharmacy #[id number], 183, cm, 02/05/20 12:53:... Start Date: 03/07/20 Status: Ordered amLODIPine 5 mg oral tablet 5 mg, 1, tablet, By Mouth, Daily, # 30 tablet, Refills 5, Tot. Refills 5, Maintenance, 04/29/20 13:47:00 EST, Route to Pharmacy Electronically, [facility]/pharmacy #[id number], 183, cm, 02/05/20 12:53:00 EDT, Height Start Date: 04/29/20 Stop Date: 10/26/20 Status: Ordered atorvastatin 40 mg oral tablet See Instructions, TAKE 1 TABLET BY MOUTH EVERY DAY, # 28 tablet, 5 Refills, Soft Stop, 12/27/19 14:47:00 EDT, [facility]/pharmacy #[id number], 183, cm, 11/05/19 9:35:00 EDT, Height, Dry Weight Start Date: 12/27/19 Status: Ordered buPROPion 150 mg/24 hours (XL) oral tablet, extended release 1 tablet = 150 mg, By Mouth, Every 24 hours, # 30 tablet, 5 Refills, Maintenance, 02/18/20 10:40:00EDT, ER Tablet, [facility]/pharmacy #[id number], Bubble pack and delivery, 1 tablet By Mouth Every 24 hours, 183, cm, 02/05/20 12:53:00 EDT, Height, Dry Weight Start Date: 02/18/20 Status: Ordered carvedilol 12.5 mg oral tablet 12.5 mg, 1, tablet, By Mouth, 2 times a day, # 60 tablet, Refills 2, Tot. Refills 2, Soft Stop, 04/12/20 20:34:00 EST, [id number], cm, 02/05/20 12:53:00EDT, Height Start Date: 04/12/20 Status: Ordered clopidogrel 75 mg oral tablet 75 mg, 1, tablet, By Mouth, Daily, # 30 tablet, Refills 5, Tot. Refills 5, Maintenance, 12/24/19 13:07:00 EDT, Route to Pharmacy Electronically, [facility]/pharmacy #[id number], 183, cm, 11/05/19 9:35:00 EDT, Height, Dry Weight Start Date: 12/24/19 Status: Ordered [facility] B-12 1,000 MCG TABLET See Instructions, # 30 tablet, TAKE 1 TABLET BY MOUTH EVERY DAY, [facility]/pharmacy #[id number] Start Date: 03/20/19 Status: Ordered docusate sodium 100 mg oral capsule 100 mg, 1, capsule, By Mouth, 3 times a day, Bubble Pack and Delivery, # 90 capsule, Refills 5, Tot. Refills 5, Maintenance, 11/22/17 13:28:22 EDT, Route to Pharmacy Electronically, [id number], [facility]/pharmacy #[id number] Start Date: 11/22/17 Stop Date: 05/21/18 Status: Ordered Eliquis 5 mg oral tablet 1 tablet = 5 mg, By Mouth, 2 times a day, # 60 tablet, 5 Refills, Maintenance, 02/18/20 14:47:00 EDT, Tablet, [facility]/pharmacy #[id number], 183, cm, 02/05/20 12:53:00 EDT, Height, Dry Weight Start Date: 02/18/20 Status: Ordered furosemide 40 mg oral tablet 40 mg, 1, tablet, By Mouth, 2 times a day, # 60 tablet, Refills 2, Tot. Refills 2, Soft Stop, 05/05/20 14:35:00 EST, Route to Pharmacy Electronically, [facility]/pharmacy #[id number], this replaces previous script. Pt is on 2 tabs daily, 183, cm, 02/05/20 12:53:00... Start Date: 05/05/20 Stop Date: 08/03/20 Status: Ordered hydrALAZINE 50 mg oral tablet 1 tablet = 50 mg, By Mouth, 3 times a day, dose change, # 90 tablet, 1 Refills, Maintenance, 09/10/19 10:37:00 EDT, Tablet, [facility]/pharmacy #[id number], 183, cm, 05/25/19 15:06:00 EST, Height Start Date: 09/10/19 Stop Date: 11/09/19 Status: Ordered isosorbide mononitrate 60 mg oral tablet, extended release 60 mg, 1, tablet, By Mouth, Daily in AM, # 30 tablet, Refills 5, Tot. Refills 5, Soft Stop, 05/03/20 17:20:00 EST, Route to Pharmacy Electronically, [facility]/pharmacy #[id number], 183, cm, 02/05/20 12:53:00 EDT, Height Start Date: 05/03/20 Stop Date: 10/30/20 Status: Ordered NIFEdipine 30 mg oral tablet, extended release 30 mg, 1, tablet, By Mouth, Daily, Bubble Pack and Delivery, # 30 tablet, Refills 3, Tot. Refills 3, Maintenance, 03/27/18 8:38:30 EST, Route to Pharmacy Electronically, [id number], [facility]/pharmacy #[id number] Start Date: 03/27/18 Status: Ordered nitroglycerin 0.4 mg sublingual tablet 1 tablet = 0.4 mg, Sublingual, Every 5 minutes, PRN Chest Pain, # 25 tablet, 3 Refills, Maintenance, 08/24/19 15:40:00 EDT, [facility]/pharmacy #[id number], 183, cm, 05/25/19 15:06:00 EST, Height, 88.3, kg, 08/31/17 3:30:00 EDT, Dry Weight Start Date: 08/24/19 Stop Date: 12/22/19 Status: Ordered oxyCODONE 30 mg oral tablet 2 tablet = 60 mg, By Mouth, Every 3 hours, 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 OF 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 Refills 2, Soft Stop, 04/15/20 9:13:00 EST, Route to Pharmacy Electronically, [facility]/pharmacy #[id number], 183, cm, 02/05/20 12:53:00 EDT, Height Start Date: 04/15/20 Stop Date: 07/14/20 Status: Ordered sucralfate 1 gm oral tablet 1 Gm, 1, tablet, By Mouth, 3 times a day before meals and bedtime, # 120 tablet, Refills 2, Tot. Refills 2, Maintenance, 04/29/20 13:47:00 EST, Route to Pharmacy Electronically, [facility]/pharmacy #[id number], 183, cm, 02/05/20 12:53:00 EDT, Height Start Date: 04/29/20 Status: Ordered Vitamin B-12 1000 mcg oral tablet 1,000 mcg, 1, tablet, By Mouth, Daily, # 30 tablet, Refills 2, Tot. Refills 2, Soft Stop, 04/15/20 9:13:00 EST, Route to Pharmacy Electronically, [facility]/pharmacy #[id number], 183, cm, 02/05/20 12:53:00 EDT, [...] disease by Rolando Rubin M.D. at [facility]. 5In the past; states this has resolved Social History Social History Type Response Smoking Status Never smoker entered on: 08/24/16 Sex
--- OUTSIDE RECORDS SUMMARY | 2023-11-18 12:37 | XMS_ITS | Continuity of Care Document ---
Author Organization [facility] Adult Address [address] [place] [address]- Care Team Providers Care Admissions Manager Rn Name Role Phone Radha ODONNELL, Hannah Primary Care Physician [place] [facility] [place]): 05/02/20 - 06/01/20 [facility] Adult [address] [place] [phone]- Allergies, Adverse Reactions, Alerts Substance Reaction Severity [...] Required Details, Route to Pharmacy Electronically, [facility]/pharmacy #[id number], 183, cm, 05/12/20 9:35:00... Start Date: 05/15/20 Status: Ordered amLODIPine 5 mg oral tablet 5 mg, 1, tablet, By Mouth, Daily, # 30 tablet, Refills 5, Tot. Refills 5, Maintenance, 04/29/20 13:47:00 EST, Route to Pharmacy Electronically, [facility]/pharmacy #[id number], 183, cm, 02/05/20 12:53:00 EDT, Height Start Date: 04/29/20 Stop Date: 10/26/20 Status: Ordered atorvastatin 40 mg oral tablet See Instructions, TAKE 1 TABLET BY MOUTH EVERY DAY, # 28 tablet, 5 Refills, Soft Stop, 12/27/19 14:47:00 EDT, [facility]/pharmacy #[id number], 183, cm, 11/05/19 9:35:00 EDT, Height, Dry Weight Start Date: 12/27/19 Status: Ordered buPROPion 150 mg/24 hours (XL) oral tablet, extended release 1 tablet = 150 mg, By Mouth, Every 24 hours, # 30 tablet, 5 Refills, Maintenance, 02/18/20 10:40:00EDT, ER Tablet, [facility]/pharmacy #[id number], Bubble pack and delivery, 1 tablet By Mouth Every 24 hours, 183, cm, 02/05/20 12:53:00 EDT, Height, Dry Weight Start Date: 02/18/20 Status: Ordered carvedilol 12.5 mg oral tablet 12.5 mg, 1, tablet, By Mouth, 2 times a day, # 60 tablet, Refills 2, Tot. Refills 2, Soft Stop, 04/12/20 20:34:00 EST, Route to Pharmacy Electronically, [facility]/pharmacy #[id number], 183, cm, 02/05/20 12:53:00EDT, Height Start Date: 04/12/20 Status: Ordered clopidogrel 75 mg oral tablet 75 mg, 1, tablet, By Mouth, Daily, # 30 tablet, Refills 5, Tot. Refills 5, Maintenance, 05/15/20 15:55:00 EST, Route to Pharmacy Electronically, [facility]/pharmacy #[id number], 183, cm, 05/12/20 9:35:00 EST, Height Start Date: 05/15/20 Status: Ordered [facility]S B-12 1,000 MCG TABLET See Instructions, # 30 tablet, TAKE 1 TABLET BY MOUTH EVERY DAY, [facility]/pharmacy #[id number] Start Date: 03/20/19 Status: Ordered docusate sodium 100 mg oral capsule 100 mg, 1, capsule, By Mouth, 3 times a day, Bubble Pack and Delivery, # 90 capsule, Refills 5, Tot. Refills 5, Maintenance, 11/22/17 13:28:22 EDT, Route to Pharmacy Electronically, [id number], [facility]/pharmacy #[id number] Start Date: 11/22/17 Stop Date: 05/21/18 Status: Ordered Eliquis 5 mg oral tablet 1 tablet = 5 mg, By Mouth, 2 times a day, # 60 tablet, 5 Refills, Maintenance, 02/18/20 14:47:00 EDT, Tablet, [facility]/pharmacy #[id number], 183, cm, 02/05/20 12:53:00 EDT, Height, Dry Weight Start Date: 02/18/20 Status: Ordered furosemide 40 mg oral tablet 40 mg, 1, tablet, By Mouth, 2 times a day, # 60 tablet, Refills 2, Tot. Refills 2, Soft Stop, 05/05/20 14:35:00 EST, [id number]. Pt is on 2 tabs daily, 183, cm, 02/05/20 12:53:00... Start Date: 05/05/20 Stop Date: 08/03/20 Status: Ordered hydrALAZINE 50 mg oral tablet 1 tablet = 50 mg, By Mouth, 3 times a day, dose change, # 90 tablet, 1 Refills, Maintenance, 09/10/19 10:37:00 EDT, Tablet, [facility]/pharmacy #[id number], 183, cm, 05/25/19 15:06:00 EST, Height Start Date: 09/10/19 Stop Date: 11/09/19 Status: Ordered isosorbide mononitrate 60 mg oral tablet, extended release 60 mg, 1, tablet, By Mouth, Daily in AM, # 30 tablet, Refills 5, Tot. Refills 5, Soft Stop, 05/03/20 17:20:00 EST, Route to Pharmacy Electronically, [facility]/pharmacy #[id number], 183, cm, 02/05/20 12:53:00 EDT, Height Start Date: 05/03/20 Stop Date: 10/30/20 Status: Ordered NIFEdipine 30 mg oral tablet, extended release 30 mg, 1, tablet, By Mouth, Daily, Bubble Pack and Delivery, # 30 tablet, Refills 3, Tot. Refills 3, Maintenance, 03/27/18 8:38:30 EST, Route to Pharmacy Electronically, [id number], [facility]/pharmacy #[id number] Start Date: 03/27/18 Status: Ordered nitroglycerin 0.4 mg sublingual tablet 1 tablet = 0.4 mg, Sublingual, Every 5 minutes, PRN Chest Pain, # 25 tablet, 3 Refills, Maintenance, 08/24/19 15:40:00 EDT, [facility]/pharmacy #[id number], 183, cm, 05/25/19 15:06:00 EST, Height, 88.3, kg, 08/31/17 3:30:00 EDT, Dry Weight Start Date: 08/24/19 Stop Date: 12/22/19 Status: Ordered oxyCODONE 30 mg oral tablet 2 tablet = 60 mg, By Mouth, Every 3 hours, MONOMER RECOVERY OPERATOR checked, # 224 tablet, 0 Refills, Acute 05/15/21 14:03:00 EST, 05/29/20 17:11:00 EST, [facility]/pharmacy #[id number], may partial fill upon request;, 05/30/20, 183,cm, 05/12/20 9:35:00 EST, Height Start Date: 05/29/20 Stop Date: 05/15/21 Status: Ordered pantoprazole 40 mg oral delayed release tablet See Instructions, # 28 tablet, Refills 2 Tot. Refills 2, TAKE 1 TABLET BY MOUTH EVERY DAY, [facility]/pharmacy #[id number] Start Date: 02/26/19 Status: [...] 1 Refills, Maintenance, 02/18/20 14:47:00 EDT, Tablet, [facility]/pharmacy #[id number], Bubble pack and delivery, 183, cm, 02/05/20 12:53:00 EDT, Height Start Date: 02/18/20 Stop Date: 08/16/20 Status: Ordered spironolactone 25 mg oral tablet 25 mg, 1, tablet, By Mouth, Daily, # 30 tablet, Refills 2, Tot. Refills 2, Soft Stop, 04/15/20 9:13:00 EST, [id number], cm, 02/05/20 12:53:00 EDT, Height Start Date: 04/15/20 Stop Date: 07/14/20 Status: Ordered sucralfate 1 gm oral tablet 1 Gm, 1, tablet, By Mouth, 3 times a day before meals and bedtime, # 120 tablet, Refills 2, Tot. Refills 2, Maintenance, 04/29/20 13:47:00 EST, [id number] 183, cm, 02/05/20 12:53:00 EDT, Height Start Date: 04/29/20 Status: Ordered Vitamin B-12 1000 mcg oral tablet 1,000 mcg, 1, tablet, By Mouth, Daily, # 30 tablet, Refills 2, Tot. Refills 2, Soft Stop, 04/15/20 9:13:00 EST, [id number] 183, cm, 02/05/20 12:53:00 EDT, [...] artery disease by Rolando Rubin M.D. at [facility]. 5In the past; states this has resolved Social History Social History Type Response Smoking Status Never smoker entered on: 08/24/16 Sex
--- OUTSIDE RECORDS SUMMARY | 2023-11-18 12:37 | XMS_ITS | Continuity of Care Document ---
Author Organization [facility] Adult Address [address] [place] [address]- Care Team Providers Care Teasel Setter Name Role Phone Radha ODONNELL, Hannah Primary Care Physician Encounter [facility] Date(s): 03/11/23 - 04/10/23 [facility] [address] [place] [phone]- Allergies, Adverse Reactions, Alerts Substance Reaction Severity [...] 01/09/23 7:22:00 EDT, Route to Pharmacy Electronically, [facility], 183, cm, 10/08/22 16:18:00 EDT, Height, 71.3, kg, 08/08/21 0:23:00 EDT, Dry Weight Start Date: 01/09/23 Status: Ordered amLODIPine 5 mg oral tablet 1 tablet, By Mouth, Daily, # 28 tablet, 5 Refills, Maintenance, 11/25/22 16:21:00 EDT, [facility], 183, cm, 10/08/22 16:18:00 EDT, Height, 71.3, kg, 08/08/21 0:23:00 EDT, Dry Weight Start Date: 11/25/22 Status: Ordered atorvastatin 40 mg oral tablet 1 tablet, By Mouth, Daily, # 28 tablet, 2 Refills, Maintenance, 01/09/23 7:23:00 EDT, [facility], 183, cm, 10/08/22 16:18:00 EDT, Height, 71.3, kg, 08/08/21 0:23:00 EDT, Dry Weight Start Date: 01/09/23 Status: Ordered buPROPion 150 mg/24 hours (XL) oral tablet, extended release 1 tablet, By Mouth, Daily, # 28 tablet, 5 Refills, Maintenance, 09/03/22 20:57:00 EDT, [facility], [facility], TAKE 1 TABLET BY MOUTH EVERY DAY, 183, cm, 03/16/22 8:31:00 EDT, Height, 71.3, kg, 220:23:00 EDT, Dry Weight Start Date: 09/03/22 Status: Ordered carvedilol 12.5 mg oral tablet 1, tablet, By Mouth, 2 times a day, # 56 tablet, Refills 5, Maintenance, 11/25/22 16:22:00 EDT, Route to Pharmacy Electronically, [facility], 183, cm, 10/08/22 16:18:00 EDT, Height, 71.3, [...] EDT, Route to Pharmacy Electronically, [facility], 183, cm, 03/16/22 8:31:00 EDT, Height, 71.3, [...] 6 Refills, Maintenance, 05/14/2216:30:00 EST, [facility], 183, cm, 03/16/22 8:31:00 EDT, Height, 71.3, kg, 08/08/21 0:23:00 EDT, Dry Weight Start Date: 05/14/22 Status: Ordered Eliquis 5 mg oral tablet 1 tablet, By Mouth, 2 times a day, # 56 tablet, 6 Refills, [facility], 183, cm, 08/12/21 14:20:00 EDT, Height, 71.3, kg, 08/08/21 0:23:00 EDT, Dry Weight Start Date: 09/26/21 Status: Ordered Eliquis 5 mg oral tablet See Instructions, TAKE 1 TABLET BY MOUTH TWICE A DAY, # 56 tablet, 6 Refills, Maintenance, 11/30/2314:39:00 EDT, [facility], 183, cm, 10/08/22 16:18:00 EDT, Height, 71.3, kg, 08/08/21 0:23:00 EDT, Dry Weight Start Date: 11/30/22 Status: Ordered furosemide 40 mg oral tablet 1, tablet, By Mouth, 2 times a day, # 56 tablet, Refills 2, Maintenance, 09/30/22 8:51:00 EDT, Route to Pharmacy Electronically, [facility], 183, cm, 03/16/22 8:31:00 EDT, Height, 71.3, [...] tablet, 2 Refills, Maintenance, 11/25/22 16:22:00 EDT, [facility], 183, cm, 10/08/22 16:18:00 EDT, Height, 71.3, kg, 08/08/21 0:23:00 EDT, Dry Weight Start Date: 11/25/22 Status: Ordered isosorbide mononitrate 60 mg oral tablet, extended release 1 tablet, By Mouth, Daily in AM, # 28 tablet, 2 Refills, Maintenance, 11/25/22 16:23:00 EDT, [facility], 183, cm, 10/08/22 16:18:00 EDT, Height, 71.3, kg, 08/08/21 0:23:00 EDT, Dry Weight Start Date: 11/25/22 Status: Ordered Mylanta Maximum Strength oral suspension 5 mL, By Mouth, 4 times a day, PRN for control of stomach acid, # 200 mL, 1 Refills, Maintenance, 08/12/21 13:46:00 EDT, Suspension, [facility]/pharmacy #[id number], Partial fill upon patient request if the prescription is for a schedule II opioid drug., 5 mL By M... Start Date: 08/12/21 Status: Ordered nitroglycerin 0.4 mg sublingual tablet 1 tablet = 0.4 mg, Sublingual, Every 5 minutes, PRN Chest Pain, # 25 tablet, 3 Refills, Maintenance, 08/24/19 15:40:00 EDT, [facility]/pharmacy #[id number], 183, cm, 05/25/19 15:06:00 EST, Height, 88.3, kg, 08/31/17 3:30:00 EDT, Dry Weight Start Date: 08/24/19 Stop Date: 12/22/19 Status: Ordered oxyCODONE 30 mg oral tablet 2 tablet = 60 mg, By Mouth, Every 3 hours, FUGITIVE DETECTIVE checked. fiull 03/28/23, # 112 tablet, 0 Refills, Maintenance, 03/28/23 7:01:00 EST, [facility]/pharmacy #4471, 7 days as needs testing performed partial fill upon request;, 183, cm, 10/08/22 16:18:00 EDT, Hei... Start Date: 03/28/23 Stop Date: 04/04/23 Status: Ordered oxyCODONE 30 mg oral tablet 2 tablet = 60 mg, By Mouth, Every 3 hours, 5PMP checked. fill on 02/14/23, # 224 tablet, 0 Refills, Maintenance, 04/04/23 14:22:00 EST, [facility]/pharmacy #[id number], may partial fill upon request; [...] Start Date: 11/30/22 Status: Ordered Potassium Chloride (Kfk-Vlbk-Dud 10) 10 mEq oral tablet, extended release See Instructions, TAKE 2 TABLETS BY MOUTH EVERY MORNING AND TAKE 1 TABLET EVERY EVENING, # 84 tablet, 2 Refills, Maintenance, 11/30/22 15:38:00 EDT, [facility], 183, cm, 10/08/22 16:18:00 EDT, Height, 71.3, kg, 08/08/21 0:23:00 EDT, Dry Weight Start Date: 11/30/22 Status: Ordered Potassium Chloride (Imi-Qqpb-Vpf 10) 10 mEq oral tablet, extended release See Instructions, TAKE 2 TABLETS BY MOUTH EVERY MORNING AND TAKE 1 TABLET EVERY EVENING, # 84 tablet, 2 Refills, Maintenance, 09/06/22 10:04:00 EDT, [facility], 183, cm, 03/16/22 8:31:00 EDT, Height, 71.3, kg, 08/08/21 0:23:00 EDT, Dry Weight Start Date: 09/06/22 Status: Ordered sertraline 100 mg oral tablet 1 tablet, By Mouth, Daily, # 28 tablet, 5 Refills, Maintenance, 06/09/22 8:26:00 EST, [facility], 183, cm, 03/16/22 8:31:00 EDT, Height, 71.3, kg, 08/08/21 0:23:00 EDT, Dry Weight Start Date: 06/09/22 Status: Ordered sertraline 100 mg oral tablet See Instructions, TAKE 1 TABLET BY MOUTH EVERY DAY, # 28 tablet, 5 Refills, Maintenance, 11/30/22 15:39:00 EDT, [facility], 183, cm, 10/08/22 16:18:00 EDT, Height, 71.3, kg, 08/08/21 0:23:00 EDT, Dry Weight Start Date: 11/30/22 Status: Ordered spironolactone 25 mg oral tablet 1, tablet, By Mouth, Daily, # 28 tablet, Refills 4, Maintenance, 07/08/22 11:30:00 EST, Route to Pharmacy Electronically, [facility], 183, cm, 03/16/22 8:31:00 EDT, Height, 71.3, kg, 08/08/21 0:23:00 EDT, Dry Weight Start Date: 07/08/22 Status: Ordered spironolactone 25 mg oral tablet See Instructions, TAKE 1 TABLET BY MOUTH EVERY DAY, # 28 tablet, Refills 4, Maintenance, 11/30/22 15:38:00 EDT, Instructions Replace Required Details, Route to Pharmacy Electronically, [facility], 183, cm, 10/08/22 16:18:00 EDT, Height, 71.3, kg,... Start Date: 11/30/22 Status: Ordered sucralfate 1 gm oral tablet 1, tablet, By Mouth, 3 times a day before meals, AND BEDTIME., # 112 tablet, Refills 5, Maintenance, 02/04/23 16:32:00 EDT, Route to Pharmacy Electronically, [facility], 183, cm, 10/08/22 16:18:00 EDT, Height, 71.3, kg, 08/08/21 0:23:00 EDT, Dry... Start Date: 02/04/23 Status: Ordered Vitamin B-12 1000 mcg oral tablet 1, tablet, By Mouth, Daily, # 28 tablet, Refills 0, Maintenance, 02/04/23 17:00:00 EDT, Route to Pharmacy Electronically, [facility], 183, cm, 10/08/22 16:18:00 EDT, Height, 71.3, [...] artery disease by Rolando Rubin M.D. at [facility]. 4In the past; states this has [...] Member Role: Lifetime Consulting Physician Address: Address: [address] [place] [address] [address] [facility] [address]- [place] Name: Hannah Garcia NP Position: [facility] PCO Associate Professional Member Role: PCP Address: Address: [address] [place] [address], [address] [place] [address]- [place] Name: Eduin Arias MD Position: [facility] Renal MD Member Role: Lifetime Consulting Physician Address: Address: [address] [place] [address], [address] [place] [address]- [place] Name: Ana Herrera RN Position: [facility] [...] Care Nurse Name: Lyn Helms RN [facility]: [facility] [...] Care Nurse Name: Hafsa Goyal RN Position: [facility] [...] Member Role: Lifetime Consulting Physician Address: Address: [address] [place] [address] [facility] [address] Name: Yesica Serna RN Position: [facility] OB RN Member Role: Primary Care Nurse Name: Jesusita Lou RN Position: [facility] OB RN Member Role: Primary Care Nurse Name: Husam Elizalde RN Position: [facility] RN Member Role: Primary Care Nurse Care Team Related Persons Name: ROXANNADUTCH HURTADO Address: home [place], [place] Name: ALL AYERS Address: home [address], [place] Name: ALL MANZANARES Address: home [address] [place], [place] Name: CHRISTEN GRIMALDO Address: home [address] [place], [place]
--- OUTSIDE RECORDS SUMMARY | 2023-11-18 12:37 | XMS_ITS | Continuity of Care Document ---
Author Organization [facility] Adult Address [address] [place] [address]- Care Team Providers Care Material Reclaimer Name Role Phone Radha ODONNELL, Hannah Primary Care Physician Encounter [facility] [place] Date(s): 08/05/20 - 09/04/20 [facility] [address] [place] [address]- Attending Physician: Caroline Campbell Admitting Physician: AdmtrCaroline Referring Physician: Admtr, ArLorenza [...] [facility]/pharmacy #[id number], 183, cm, 05/12/20 9:35:00... Start Date: 05/15/20 Status: Ordered amLODIPine 5 mg oral tablet 5 mg, 1, tablet, By Mouth, Daily, # 30 tablet, Refills 5, Tot. Refills 5, Maintenance, 04/29/20 13:47:00 EST, Route to Pharmacy Electronically, [facility]/pharmacy #[id number], 183, cm, 02/05/20 12:53:00 EDT, Height Start Date: 04/29/20 Stop Date: 10/26/20 Status: Ordered atorvastatin 40 mg oral tablet See Instructions, TAKE 1 TABLET BY MOUTH EVERY DAY, # 28 tablet, 5 Refills, Soft Stop, 07/05/20 11:24:00 EST, [facility]/pharmacy #[id number], 183, cm, 05/12/20 9:35:00 EST, Height Start Date: 07/05/20 Status: Ordered buPROPion 150 mg/24 hours (XL) oral tablet, extended release 1 tablet = 150 mg, By Mouth, Every 24 hours, # 30 tablet, 5 Refills, Maintenance, 08/01/20 9:50:00 EDT, ER Tablet, [facility]/pharmacy #[id number], Bubble pack and delivery, 1 tablet By Mouth Every 24 hours, 183,cm, 05/12/20 9:35:00 EST, Height Start Date: 08/01/20 Status: Ordered carvedilol 12.5 mg oral tablet 12.5 mg, 1, tablet, By Mouth, 2 times a day, # 60 tablet, Refills 2, Tot. Refills 2, Soft Stop, 07/01/20 13:57:00 EST, Route to Pharmacy Electronically, [facility]/pharmacy #[id number], 183, cm, 05/12/20 9:35:00 EST, Height Start Date: 07/01/20 Status: Ordered clopidogrel 75 mg oral tablet 75 mg, 1, tablet, By Mouth, Daily, # 30 tablet, Refills 5, Tot. Refills 5, Maintenance, 05/15/20 15:55:00 EST, Route to Pharmacy Electronically, [facility]/pharmacy #[id number], 183, cm, 05/12/20 9:35:00 EST, Height Start Date: 05/15/20 Status: Ordered [facility] B-12 1,000 MCG TABLET See Instructions, # 30 tablet, TAKE 1 TABLET BY MOUTH EVERY DAY, [facility]/pharmacy #[id number] Start Date: 03/20/19 Status: Ordered docusate sodium 100 mg oral capsule 100 mg, 1, capsule, By Mouth, 3 times a day, Bubble Pack and Delivery, # 90 capsule, Refills 5, Tot. Refills 5, Maintenance, 11/22/17 13:28:22 EDT, Route to Pharmacy Electronically, [id number], [facility]/pharmacy #[id number] Start Date: 11/22/17 Stop Date: 05/21/18 Status: Ordered Eliquis 5 mg oral tablet 1 tablet = 5 mg, By Mouth, 2 times a day, # 60 tablet, 5 Refills, Maintenance, 08/01/20 11:10:00 EDT, Tablet, [facility]/pharmacy #[id number], 183, cm, 05/12/20 9:35:00 EST, Height Start Date: 08/01/20 Status: Ordered furosemide 40 mg oral tablet 40 mg, 1, tablet, By Mouth, 2 times a day, # 60 tablet, Refills 2, Tot. Refills 2, Soft Stop, 08/03/20 14:35:00 EDT, [id number]. Pt is [...] 05/03/20 17:20:00 EST, Route to Pharmacy Electronically, [facility]/pharmacy #[id number], 183, cm, 02/05/20 12:53:00 EDT, Height Start Date: 05/03/20 Stop Date: 10/30/20 Status: Ordered NIFEdipine 30 mg oral tablet, extended release 30 mg, 1, tablet, By Mouth, Daily, Bubble Pack and Delivery, # 30 tablet, Refills 3, Tot. Refills 3, Maintenance, 03/27/18 8:38:30 EST, Route to Pharmacy Electronically, [id number], [facility]/pharmacy #[id number] Start Date: [...] 60 mg, By Mouth, Every 3 hours, LITHOGRAPH PRESS OPERATOR TINWARE checked, # 224 tablet, 0 Refills, Acute 05/15/21 15:53:00 EST, 07/10/20 20:59:00 EST, [facility]/pharmacy #[id number], may partial fill upon request;, 07/11/20, 183,cm, 05/12/20 9:35:00 EST, Height Start Date: 07/10/20 Stop Date: 05/15/21 Status: Ordered oxyCODONE 30 mg oral tablet 2 tablet = 60 mg, By Mouth, Every 3 hours, LITHOGRAPH PRESS OPERATOR TINWARE checked, # 224 tablet, 0 Refills, Acute 05/15/21 11:10:00 EST, 09/04/20 12:44:00 EDT, [facility]/pharmacy #[id number], may partial fill upon request;, 09/05/20, 183,cm, 08/05/20 8:57:00 EDT, Height Start Date: 09/04/20 Stop Date: 05/15/21 Status: Ordered pantoprazole 40 [...] Refills, Maintenance, 07/02/20 8:26:00 EST, ER Tablet, [facility]/pharmacy #[id number], 183, cm, 05/12/20 9:35:00 EST, Height Start Date: 07/02/20 Status: Ordered sertraline 100 mg oral tablet 1 tablet = 100 mg, By Mouth, Daily, # 90 tablet, 1 Refills, Maintenance, 08/01/20 11:10:00 EDT, Tablet, [facility]/pharmacy #[id number], Bubble pack and delivery, 183, cm, 05/12/20 9:35:00 EST, Height Start Date: 08/01/20 Stop Date: 01/28/21 Status: Ordered spironolactone 25 mg oral tablet 25 mg, 1, tablet, By Mouth, Daily, # 30 tablet, Refills 2, Tot. Refills 2, Soft Stop, 07/02/20 8:26:00 EST, [facility], [id number], 183, cm, 05/12/20 9:35:00 EST, Height Start Date: 07/02/20 Stop Date: 09/30/20 Status: Ordered sucralfate 1 gm oral tablet 1 Gm, 1, tablet, By Mouth, 3 times a day before meals and bedtime, # 120 tablet, Refills 2, Tot. Refills 2, Maintenance, 08/01/20 9:52:00 EDT, Route to Pharmacy Electronically, [facility]/pharmacy #[id number], 183, cm, 05/12/20 9:35:00 EST, Height Start Date: 08/01/20 Status: Ordered Vitamin B-12 1000 mcg oral tablet 1,000 mcg, 1, tablet, By Mouth, Daily, # 30 tablet, Refills 2, Tot. Refills 2, Soft Stop, 07/02/20 8:26:00 EST, Route to Pharmacy Electronically, [facility]/pharmacy #[id number], 183, cm, 05/12/20 9:35:00 EST, Height [...] artery disease by Rolando Rubin M.D. at [facility]. 5In the past; states this has resolved Social History Social History Type Response Smoking Status Never smoker entered on: 08/24/16 Sex
--- OUTSIDE RECORDS SUMMARY | 2023-11-18 12:37 | XMS_ITS | Continuity of Care Document ---
Author Organization [facility] Adult Address [address] [place] [address]- Care Team Providers Care Environmental Planning Engineer Name Role Phone Radha ODONNELL, Hannah Primary Care Physician En[place] [facility] [place]): 02/06/20 - 03/07/20 [facility] [address] [place] [id number]- [facility] Allergies, Adverse Reactions, Alerts Substance Reaction Severity [...] Details, Route to Pharmacy Electronically, [facility]/pharmacy #[id number], 183, cm, 02/05/20 12:53:... Start Date: 03/07/20 Status: Ordered amLODIPine 5 mg oral tablet 5 mg, 1, tablet, By Mouth, Daily, # 30 tablet, Refills 5, Tot. Refills 5, Maintenance, 11/26/19 14:40:00 EDT, Route to Pharmacy Electronically, [facility]/pharmacy #[id number], 183, cm, 11/05/19 9:35:00 EDT, Height, Dry Weight Start Date: 11/26/19 Stop Date: 05/24/20 Status: Ordered atorvastatin 40 mg oral tablet See Instructions, TAKE 1 TABLET BY MOUTH EVERY DAY, # 28 tablet, 5 Refills, Soft Stop, 12/27/19 14:47:00 EDT, [facility]/pharmacy #[id number], 183, cm, 11/05/19 9:35:00 EDT, Height, Dry Weight Start Date: 12/27/19 Status: Ordered buPROPion 150 mg/24 hours (XL) oral tablet, extended release 1 tablet = 150 mg, By Mouth, Every 24 hours, # 30 tablet, 5 Refills, Maintenance, 02/18/20 10:40:00EDT, ER Tablet, [facility]/pharmacy #[id number], Bubble pack and delivery, 1 tablet By Mouth Every 24 hours, 183, cm, 02/05/20 12:53:00 EDT, Height, Dry Weight Start Date: 02/18/20 Status: Ordered carvedilol 12.5 mg oral tablet 12.5 mg, 1, tablet, By Mouth, 2 times a day, # 60 tablet, Refills 5, Tot. Refills 5, Soft Stop, 10/26/19 11:37:00 EDT, Route to Pharmacy Electronically, [facility]/pharmacy #[id number], 183, cm, 05/25/19 15:06:00EST, Height Start Date: 10/26/19 Status: Ordered clopidogrel 75 mg oral tablet 75 mg, 1, tablet, By Mouth, Daily, # 30 tablet, Refills 5, Tot. Refills 5, Maintenance, 12/24/19 13:07:00 EDT, Route to Pharmacy Electronically, [facility]/pharmacy #[id number], 183, cm, 11/05/19 9:35:00 EDT, Height, Dry Weight Start Date: 12/24/19 Status: Ordered [facility] B-12 1,000 MCG TABLET See Instructions, # 30 tablet, TAKE 1 TABLET BY MOUTH EVERY DAY, [facility]/pharmacy #[id number] Start Date: 03/20/19 Status: Ordered docusate sodium 100 mg oral capsule 100 mg, 1, capsule, By Mouth, 3 times a day, Bubble Pack and Delivery, # 90 capsule, Refills 5, Tot. Refills 5, Maintenance, 11/22/17 13:28:22 EDT, Route to Pharmacy Electronically, [id number], [facility]/pharmacy #[id number] Start Date: 11/22/17 Stop Date: 05/21/18 Status: Ordered Eliquis 5 mg oral tablet 1 tablet = 5 mg, By Mouth, 2 times a day, # 60 tablet, 5 Refills, Maintenance, 02/18/20 14:47:00 EDT, Tablet, [facility]/pharmacy #[id number], 183, cm, 02/05/20 12:53:00 EDT, Height, Dry Weight Start Date: 02/18/20 Status: Ordered furosemide 40 mg oral tablet 40 mg, 1, tablet, By Mouth, 2 times a day, # 60 tablet, Refills 2, Tot. Refills 2, Soft Stop, 02/06/20 10:28:00 EDT, [id number] previous script. Pt is on 2 tabs daily, 183, cm, 02/05/20 12:53:00... Start Date: 02/06/20 Stop Date: 05/06/20 Status: Ordered hydrALAZINE 50 mg oral tablet 1 tablet = 50 mg, By Mouth, 3 times a day, dose change, # 90 tablet, 1 Refills, Maintenance, 09/10/19 10:37:00 EDT, Tablet, [facility]/pharmacy #[id number], 183, cm, 05/25/19 15:06:00 EST, Height Start Date: 09/10/19 Stop Date: 11/09/19 Status: Ordered isosorbide mononitrate 60 mg oral tablet, extended release 60 mg, 1, tablet, By Mouth, Daily in AM, # 30 tablet, Refills 5, Tot. Refills 5, Soft Stop, 09/11/19 14:15:00 EDT, Route to Pharmacy Electronically, [facility]/pharmacy #[id number], 183, cm, 05/25/19 15:06:00 EST, Height, Dry Weight Start Date: 09/11/19 Stop Date: 03/09/20 Status: Ordered NIFEdipine 30 mg oral tablet, extended release 30 mg, 1, tablet, By Mouth, Daily, Bubble Pack and Delivery, # 30 tablet, Refills 3, Tot. Refills 3, Maintenance, 03/27/18 8:38:30 EST, Route to Pharmacy Electronically, [id number], [facility]/pharmacy #[id number] Start Date: 03/27/18 Status: Ordered nitroglycerin 0.4 mg sublingual tablet 1 tablet = 0.4 mg, Sublingual, Every 5 minutes, PRN Chest Pain, # 25 tablet, 3 Refills, Maintenance, 08/24/19 15:40:00 EDT, [facility]/pharmacy #[id number], 183, cm, 05/25/19 15:06:00 EST, Height, 88.3, kg, 08/31/17 3:30:00 EDT, Dry Weight Start Date: 08/24/19 Stop Date: 12/22/19 Status: Ordered oxyCODONE 30 mg oral tablet 2 tablet = 60 mg, By Mouth, Every 3 hours, 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, # 224 tablet, 0 Refills, Acute 05/15/20 14:24:00 EST, 03/06/20 20:09:00 EDT, [facility]/pharmacy #[id number], may partial fill upon request;, 03/07/20, [...] TABLET BY MOUTH EVERY DAY, [facility]/pharmacy #[id number] Start Date: 02/26/19 Status: Ordered potassium chloride 10 mEq oral tablet, extended release See Instructions, take 2 tabs in am and 1 tab in pm, # 90 tablet, 2 Refills, Maintenance, 02/06/20 16:13:00 EDT, ER Tablet, [facility]/pharmacy #[id number], 183, cm, 02/05/20 12:53:00 EDT, Height Start Date: 02/06/20 Status: Ordered sertraline 100 mg oral tablet 1 tablet = 100 mg, By Mouth, Daily, # 90 tablet, 1 Refills, Maintenance, 02/18/20 14:47:00 EDT, Tablet, [id number], Bubble pack and delivery, 183, cm, 02/05/20 12:53:00 EDT, Height Start Date: 02/18/20 Stop Date: 08/16/20 Status: Ordered spironolactone 25 mg oral tablet 25 mg, 1, tablet, By Mouth, Daily, # 30 tablet, Refills 1, Tot. Refills 1, Soft Stop, 02/18/20 14:47:00 EDT, [facility] Pharm[facility]ically, [id number], 183, cm, 02/05/20 12:53:00 EDT, Height Start Date: 02/18/20 Stop Date: 04/18/20 Status: Ordered sucralfate 1 gm oral tablet 1 Gm, 1, tablet, By Mouth, 3 times a day before meals and bedtime, # 120 tablet, Refills 2, Tot. Refills 2, Maintenance, 02/13/20 15:20:00 EDT, [facility]ically, [id number], 183, cm, 02/05/20 12:53:00 EDT, Height, Dry Weight Start Date: 02/13/20 Status: Ordered Vitamin B-12 1000 mcg oral tablet 1,000 mcg, 1, tablet, By Mouth, Daily, # 30 tablet, Refills 1, Tot. Refills 1, Soft Stop, 02/18/20 14:47:00 EDT, [facility] to [facility]ically, [id number], 183, cm, 02/05/20 12:53:00 EDT, [...] artery disease by Rolando Rubin M.D. at [facility]. 5In the past; states this has resolved Social History Social History Type Response Smoking Status Never smoker entered on: 08/24/16 Sex
--- OUTSIDE RECORDS SUMMARY | 2023-11-18 12:37 | XMS_ITS | Continuity of Care Document ---
Author Organization [facility] Adult Address [address] [place] [id number]- Care Team Providers Care Eyeletter Name Role Phone Hannah Garcia NP Primary Care Physician [phone] Encounter [facility] [place] Date(s): 05/10/23 - 05/17/23 [facility] Adult [address] [place] [id number]- Encounter Diagnosis Skin anomaly(Discharge Diagnosis) - 05/10/23 Callus(Discharge Diagnosis) - 05/10/23 Attending Physician: Elida Tilley NP Allergies, Adverse Reactions, Alerts Substance Reaction [...] 01/09/23 7:22:00 EDT, Route to Pharmacy Electronically, [facility] STORE [id number], 183, cm, 10/08/22 16:18:00 EDT, Height, 71.3, kg, 08/08/21 0:23:00 EDT, Dry Weight Start Date: 01/09/23 Status: Ordered amLODIPine 5 mg oral tablet 1 tablet, By Mouth, Daily, # 28 tablet, 5 Refills, Maintenance, 11/25/22 16:21:00 EDT, [facility] STORE 94385, 183, cm, 10/08/22 16:18:00 EDT, Height, 71.3, kg, 08/08/21 0:23:00 EDT, Dry Weight Start Date: 11/25/22 Status: Ordered atorvastatin 40 mg oral tablet 1 tablet, By Mouth, Daily, # 28 tablet, 2 Refills, Maintenance, 01/09/23 7:23:00 EDT, [facility], 183, cm, 10/08/22 16:18:00 EDT, Height, 71.3, kg, 08/08/21 0:23:00 EDT, Dry Weight Start Date: 01/09/23 Status: Ordered buPROPion 150 mg/24 hours (XL) oral tablet, extended release 1 tablet, By Mouth, Daily, # 28 tablet, 5 Refills, Maintenance, 04/21/23 18:36:00 EST, [facility]/pharmacy#[id number], 1 tablet By Mouth Daily,x28 days, 183, cm, 03/28/23 11:43:00 EST, Height, 71.3, kg, 220:23:00 EDT, Dry Weight Start Date: 04/21/23 Stop Date: 10/06/23 Status: Ordered carvedilol 12.5 mg oral tablet 1, tablet, By Mouth, 2 times a day, # 56 tablet, Refills 5, Maintenance, 11/25/22 16:22:00 EDT, Route to [facility]acy Electronically, [facility], 183, cm, 10/08/22 16:18:00 EDT, Height, 71.3, kg, 08/08/21 0:23:00 EDT, Dry Weight Start Date: 11/25/22 Status: Ordered cholecalciferol 50,000 intl units oral capsule 1 capsule = 50,000 International_Units, By Mouth, Every week, # 13 capsule, 3 Refills, Maintenance,03/19/23 15:28:00 EDT, Capsule, [facility]/pharmacy #[id number], Partial fill upon patient request if the prescription is for a schedule II opioid drug., 183, cm, 0... Start Date: 03/19/23 Stop Date: 03/13/24 Status: Ordered cholecalciferol 50,000 intl units oral capsule 1 capsule = 50,000 International_Units, By Mouth, Every 7 days, # 13 capsule, 3 Refills, Maintenance, 03/20/23 8:29:00 EST, Capsule, [facility]/pharmacy #[id number], Partial fill upon patient request, 183, cm, 10/08/22 16:18:00 EDT, Height, 71.3, kg, 08/08/21 0:23... Start Date: 03/20/23 Stop Date: 03/14/24 Status: Ordered clopidogrel 75 mg oral tablet 1, tablet, By Mouth, Daily, # 28 tablet, Refills 6, Maintenance, 09/06/22 10:04:00 EDT, Route to Pharmacy Electronically, [facility] STORE 76193, 183, cm, 03/16/22 8:31:00 EDT, Height, 71.3, [...] 56 tablet, 6 Refills, Maintenance, 05/14/2216:30:00 EST, [facility] ST[facility] 30075, 183, cm, 03/16/22 8:31:00 EDT, Height, 71.3, kg, 08/08/21 0:23:00 EDT, Dry Weight Start Date: 05/14/22 Status: Ordered Eliquis 5 mg oral tablet 1 tablet, By Mouth, 2 times a day, # 56 tablet, 6 Refills, [facility] 69411, 183, cm, 08/12/21 14:20:00 EDT, Height, 71.3, kg, 08/08/21 0:23:00 EDT, Dry Weight Start Date: 09/26/21 Status: Ordered Eliquis 5 mg oral tablet See Instructions, TAKE 1 TABLET BY MOUTH TWICE A DAY, # 56 tablet, 6 Refills, Maintenance, 11/30/2314:39:00 EDT, [facility] STORE 76596, 183, cm, 10/08/22 16:18:00 EDT, Height, 71.3, kg, 08/08/21 0:23:00 EDT, Dry Weight Start Date: 11/30/22 Status: Ordered furosemide 40 mg oral tablet 1, tablet, By Mouth, 2 times a day, # 56 tablet, Refills 2, Tot. Refills 2, Maintenance, 04/21/23 18:37:00 EST, Route to Pharmacy Electronically, [facility]/pharmacy #[id number], 183, cm, 03/28/23 11:43:00 EST, Height, [...] tablet, 2 Refills, Maintenance, 04/27/23 13:02:00 EST, [facility] STORE 28563, 183, cm, 03/28/23 11:43:00 EST, Height, 71.3, kg, 08/08/21 0:23:00 EDT, Dry Weight Start Date: 04/27/23 Status: Ordered isosorbide mononitrate 60 mg oral tablet, extended release 1 tablet, By Mouth, Daily in AM, # 28 tablet, 5 Refills, Maintenance, 04/21/23 18:37:00 EST, [facility]/pharmacy #[id number], 183, cm, 03/28/23 11:43:00 EST, Height, [...] 0 Refills, Soft Stop, 05/14/23 10:41:00 EST, [facility]/pharmacy #[id number], Partial fill upon patient request if the prescription is for a schedule II opioid drug., 183,... Start Date: 05/14/23 Status: Ordered nitroglycerin 0.4 mg sublingual tablet 1 tablet = 0.4 mg, Sublingual, Every 5 minutes, PRN Chest Pain, # 25 tablet, 3 Refills, Maintenance, 08/24/19 15:40:00 EDT, [facility]/pharmacy #[id number], 183, cm, 05/25/19 15:06:00 EST, Height, 88.3, kg, 08/31/17 3:30:00 EDT, Dry Weight Start Date: 08/24/19 Stop Date: 12/22/19 Status: Ordered oxyCODONE 30 mg oral tablet 2 tablet = 60 mg, By Mouth, Every 3 hours, [employer] checked., # 112 tablet, 0 Refills, Maintenance, 05/10/23 13:38:00 EST, [id number], may partial fill upon request;, 183, cm, 05/10/23 11:59:00 EST, Height, 71.3, kg, 08/08/21 0:23:00 EDT, Dry Weight Start Date: 05/10/23 Stop Date: 05/17/23 Status: Ordered oxyCODONE 30 mg oral tablet 2 tablet = 60 mg, By Mouth, Every 3 hours, [employer] checked. gabriella 03/28/23, # 112 tablet, 0 Refills, Maintenance, 03/28/23 7:01:00 EST, [facility]/pharmacy #[id number], 7 days as needs testing [...] Start Date: 11/30/22 Status: Ordered Potassium Chloride (Mjq-Xbar-Oos 10) 10 mEq oral tablet, extended release See Instructions, TAKE 2 TABLETS BY MOUTH EVERY MORNING AND TAKE 1 TABLET EVERY EVENING, # 84 tablet, 2 Refills, Maintenance, 04/27/23 13:02:00 EST, [facility], 183, cm, 03/28/23 11:43:00 EST, Height, 71.3, kg, 08/08/21 0:23:00 EDT, Dry Weight Start Date: 04/27/23 Status: Ordered sertraline 100 mg oral tablet 1 tablet, By Mouth, Daily, # 28 tablet, 5 Refills, Maintenance, 06/09/22 8:26:00 EST, [facility], 183, cm, 03/16/22 8:31:00 EDT, Height, 71.3, kg, 08/08/21 0:23:00 EDT, Dry Weight Start Date: 06/09/22 Status: Ordered sertraline 100 mg oral tablet See Instructions, TAKE 1 TABLET BY MOUTH EVERY DAY, # 28 tablet, 5 Refills, Maintenance, 11/30/22 15:39:00 EDT, [facility], 183, cm, 10/08/22 16:18:00 EDT, Height, 71.3, kg, 08/08/21 0:23:00 EDT, Dry Weight Start Date: 11/30/22 Status: Ordered spironolactone 25 mg oral tablet 1, tablet, By Mouth, Daily, # 28 tablet, Refills 4, Maintenance, 07/08/22 11:30:00 EST, Route to Pharmacy Electronically, [facility] ST[facility] 67266, 183, cm, 03/16/22 8:31:00 EDT, Height, 71.3, kg, 08/08/21 0:23:00 EDT, Dry Weight Start Date: 07/08/22 Status: Ordered spironolactone 25 mg oral tablet See Instructions, TAKE 1 TABLET BY MOUTH EVERY DAY, # 28 tablet, Refills 4, Maintenance, 11/30/22 15:38:00 EDT, Instructions Replace Required Details, Route to Pharmacy Electronically, [facility] ST[facility] 52593, 183, cm, 10/08/22 16:18:00 EDT, Height, 71.3, kg,... Start Date: 11/30/22 Status: Ordered sucralfate 1 gm oral tablet 1, tablet, By Mouth, 3 times a day before meals, AND BEDTIME., # 112 tablet, Refills 5, Maintenance, 02/04/23 16:32:00 EDT, Route to Pharmacy Electronically, [facility] ST[facility] 57296, 183, cm, 10/08/22 16:18:00 EDT, Height, 71.3, kg, 08/08/21 0:23:00 EDT, Dry... Start Date: 02/04/23 Status: Ordered Vitamin B-12 1000 mcg oral tablet 1, tablet, By Mouth, Daily, # 28 tablet, Refills 11, Tot. Refills 11, Maintenance, 04/21/23 18:37:00 EST, Route to Pharmacy Electronically, [facility]/pharmacy #[id number], 183, cm, 03/28/23 11:43:00 EST, Height,71.3, [...] Rolando Rubin M.D. at [facility]. 4In the past; states this has resolved Diagnosis Diagnosis Type Effective Dates Health Status Cl inical Service Informant Skin anomaly Discharge Diagnosis 05/10/23 Callus Discharge Diagnosis 05/10/23 Vital Signs Most recent to oldest [Reference Range]: 1 2 Height 183 cm (05/10/23 11:59 AM) 183 cm (05/10/23 11:46 AM) Oxygen Saturation [94-100 %] 98 % (05/10/23 11:46 AM) Pulse Rate [55-90 bpm] 67 bpm (05/10/23 11:59 AM) 68 bpm (05/10/23 11:46 AM) Blood Pressure [90-138/55-84 mm Hg] 170/ 112mm Hg *H* (05/10/23 11:59 AM) 183/101mm Hg *H* (05/10/23 11:46 AM) Respiratory Rate [16-30 br/min] 18 br/mi n (05/10/23 11:46 AM) Temperature [96.8-100.4 DegF] 98 DegF (05/10/23 11:46 AM) Mode of Delivery (Oxygen) Room air (05/10/23 11:46 AM) Blood pressure sites Arm, right (05/10/23 11:59 AM) Arm, right (05/10/23 11:46 AM) Temperature Route Oral (05/10/23 11:46 AM) Social History Social History Type Response Smoking Status Never smoker entered on: 08/24/16 Sex Note * Karen Alegre: PERFORM, SIGN, VERIFY Event Display: Patient Education/Instruction Authored Date: [id number] [facility] *BMP [place] [facility] Clinical Summary Name FANTA MAR Age 67 Years 1955 PCP Radha ODONNELL, Hannah PCP Visit Date 05/10/2023 11:38:00 Additional Instructions: Scheduled Appointments?? Future Appointments ?No Future Appointments Scheduled Follow-Up Instructions ?? Diagnosis Corns and callosities; Congenital malformation of skin, unspecified Medications: Please continue your medications until treatment [...] tablet, extended release) 1 tab(s) Oral Daily for 28Days. Refills: 5. Next Dose: Carvedilol (carvedilol 12.5 [...] 1000 mcg oral tablet) 1 tab(s) Oral Daily for 28 Days. Refills: 11. Next Dose: Furosemide (furosemide 40 mg oral tablet) 1 tab(s) Oral twice a day for 28 Days. Refills: 2. Next Dose: hydrALAZINE (hydrALAZINE 50 mg oral tablet) 1 tab(s) Oral 3 times a day. Refills: 2. Next Dose: Isosorbide Mononitrate (isosorbide mononitrate 60 mg oral tablet, extended release) 1 tab(s) Oral Daily in the morning for 28 Days. Refills: 5. Next Dose: Miscellaneous Rx ([facility] B-[facility] 1,000 [...] Oral every 3 hours for 7 Days. [employer]ER checked. gabriella 03/28/23. Refills: 0. Next Dose: Oxycodone (oxyCODONE 30 mg oral tablet) 2 tab(s) Oral every 3 hours for 7 Days. [employer]ER checked.. Refills: 0. Next Dose: Pantoprazole (pantoprazole 40 mg oral delayed release tablet) 1 tab(s) Oral Daily. Refills: 4. Next Dose: Pantoprazole (pantoprazole 40 mg oral delayed release tablet) TAKE 1 TABLET BY MOUTH EVERY DAY. Refills: 4. Next Dose: Potassium Chloride (Potassium Chloride (Yiq-Dvun-Esg 10) 10 mEq oral tablet, extended release) [...] Height 183 cm Weight BMI Blood Pressure 170 mm Hg/112 mm Hg Temperature 98 DegF Pulse Rate 67 bpm Respiratory Rate 18 br/min 02 Sat Mode of Delivery 98 %/Room air You can now view a summary of your hospital visit from the comfort of your home through a free online portal called [employer]. [employer] is a website that allows you to securely view your medical information including discharge summary, medications and follow-up visits. ??You can alsosend a secure electronic message to your doctor???s office to request appointments, renew medications or just ask a question. You can enroll at [email or web address] or register during your next office visit. [...] primary care provider, you may find a [facility] provider by calling [facility] [employer] Link at [phone]. [facility], in keeping with [facility] guidance, no longer requires face masks [...] Team Personnel Name: Irish Samuel RN Position: [facility] RN Member Role: Primary Care Nurse Name: Mireya Ramsey Position: [facility] RACHEL Supv Member Role: Primary Care Nurse Name: Rhea Betancur RN Position: [facility] RN Member Role: Primary Care Nurse Name: Hugo Ayala RN Position: [facility] RN Member Role: Primary Care Nurse Name: Lorna Faust RN Position: [facility] RN Member Role: Primary Care Nurse Name: David Gonzalez MD Position: [facility] Renal MD Member Role: Lifetime Consulting Physician Address: Address: [address] [place] [address] [address] [facility] [place] [address]- [place] Name: Hannah Garcia NP Position: [facility] PCO Associate Professional Member Role: PCP Address: Address: [address] [place] [address], 3rd [place] [address]- [place] Name: Eduin Arias MD Position: [facility] Renal MD Member Role: Lifetime Consulting Physician Address: Address: [address] [place] [address], [address] Name: Ana Herrera RN Position: [facility] RN Member Role: Primary Care Nurse Name: Cadence Quach RN Position: [facility] OB RN Member Role: Primary Care Nurse Name: Maggy Tsang RN Position: [facility] RN Member Role: Primary Care Nurse Name: Keyla Keys RN Position: [facility] SN RN Member Role: Primary Care Nurse Name: Марина Guevara RN Position: [facility] SN RN Member Role: Primary Care Nurse Name: Lyn Helms RN Position: [facility] RN Member Role: Primary Care Nurse Name: Tatum Biswas RN Position: [facility] RN Member Role: Primary Care Nurse Name: Hugo Bateman RN Position: [facility] RN Member Role: Primary Care Nurse Name: Petros Levy RN Position: [facility] RN Member Role: Primary Care Nurse Name: Izabella Braun RN Position: [facility] RN Member Role: Primary Care Nurse Name: Lyndsay King RN Position: [facility] RN Member Role: Primary Care Nurse Name: Felicia Kerr NP Position: [facility] Medical Student Member Role: Primary Care Nurse Name: Hafsa Goyal RN Position: [facility] RN Member Role: Primary Care Nurse Name: Rosalio Jack RN Position: [facility] RN Member Role: Primary Care Nurse Name: Carmela Houser RN Position: [facility] SN RN Member Role: Primary Care Nurse Name: Michael Dickson RN Position: [facility] RN Member Role: Primary Care Nurse Name: Jessica Lema RN Position: [facility] RN Member Role: Primary Care Nurse Name: Phu Flynn MD Position: [facility] Renal MD Member Role: Lifetime Consulting Physician Address: Address: [address] [place] [address] [facility] [address] Name: Yesica Serna RN Position: [facility] OB RN Member Role: Primary Care Nurse Name: Jesusita Lou RN Position: [facility] OB RN Member Role: Primary Care Nurse Name: Husam Elizalde RN Position: [facility] RN Member Role: Primary Care Nurse Name: Marshall Byrd RN Position: [facility] RN Member Role: Primary Care Nurse Care Team Related Persons Name: DUTCH MAR Address: [place] [address] Name: ALL AYERS Address: home [address], [place] Name: ALL MANZANARES Address: home [address] [place] [address] Name: CHRISTEN GRIMALDO Address: home [address] [place] [address]
--- OUTSIDE RECORDS SUMMARY | 2023-11-18 12:37 | XMS_ITS | Continuity of Care Document ---
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 Name Role Phone Radha ODONNELL, Hannah Primary Care Physician Encounter [facility] [place] Date(s): 05/18/23 - 06/17/23 [facility] Adult [address] [place] [id number]- Allergies, Adverse Reactions, Alerts Substance Reaction Severity [...] 01/09/23 7:22:00 EDT, Route to Pharmacy Electronically, [facility] 495[facility], 183, cm, 10/08/22 16:18:00 EDT, Height, 71.3, kg, 08/08/21 0:23:00 EDT, Dry Weight Start Date: 01/09/23 Status: Ordered amLODIPine 5 mg oral tablet 1 tablet, By Mouth, Daily, # 28 tablet, 5 Refills, Maintenance, 11/25/22 16:21:00 EDT, [facility] 00057, 183, cm, 10/08/22 16:18:00 EDT, Height, 71.3, kg, 08/08/21 0:23:00 EDT, Dry Weight Start Date: 11/25/22 Status: Ordered atorvastatin 40 mg oral tablet 1 tablet, By Mouth, Daily, # 28 tablet, 2 Refills, Maintenance, 01/09/23 7:23:00 EDT, [facility], 183, cm, 10/08/22 16:18:00 EDT, Height, 71.3, [...] tablet, 5 Refills, Maintenance, 04/21/23 18:36:00 EST, [facility]/pharmacy#[id number], 1 tablet By Mouth Daily,x28 days, 183, cm, 03/28/23 11:43:00 EST, Height, 71.3, kg, :23:00 EDT, Dry Weight Start Date: 04/21/23 Stop Date: 10/06/23 Status: Ordered carvedilol 12.5 mg oral tablet 1, tablet, By Mouth, 2 times a day, # 56 tablet, Refills 5, Maintenance, 11/25/22 16:22:00 EDT, Route to Pharmacy Electronically, [facility] 49514, 183, cm, 10/08/22 16:18:00 EDT, Height, 71.3, kg, 08/08/21 0:23:00 EDT, Dry Weight Start Date: 11/25/22 Status: Ordered cholecalciferol 50,000 intl units oral capsule 1 capsule = 50,000 International_Units, By Mouth, Every week, # 13 capsule, 3 Refills, Maintenance,03/19/23 15:28:00 EDT, Capsule, [facility]/pharmacy #[id number], Partial fill upon patient request if the prescription is for a schedule II opioid drug., 183, cm, 0... Start Date: 03/19/23 Stop Date: 03/13/24 Status: Ordered cholecalciferol 50,000 intl units oral capsule 1 capsule = 50,000 International_Units, By Mouth, Every 7 days, # 13 capsule, 3 Refills, Maintenance, 03/20/23 8:29:00 EST, Capsule, [facility]/pharmacy #[id number], Partial fill upon patient request, 183, cm, 10/08/22 16:18:00 EDT, Height, 71.3, kg, 08/08/21 0:23... Start Date: 03/20/23 Stop Date: 03/14/24 Status: Ordered clopidogrel 75 mg oral tablet 1, tablet, By Mouth, Daily, # 28 tablet, Refills 5, Tot. Refills 5, Maintenance, 06/08/23 14:08:00 EST, Route to Pharmacy Electronically, [facility]/pharmacy #[id number], 183, cm, 05/10/23 [...] a day, # 56 tablet, 6 Refills, [facility] STORE 08685, 183, cm, 08/12/21 14:20:00 EDT, Height, 71.3, kg, 08/08/21 0:23:00 EDT, Dry Weight Start Date: 09/26/21 Status: Ordered Eliquis 5 mg oral tablet See Instructions, TAKE 1 TABLET BY MOUTH TWICE A DAY, # 56 tablet, 6 Refills, Maintenance, 06/07/2409:23:00 EST, [facility]/pharmacy #[id number], 183, cm, 05/10/23 11:59:00 EST, Height, 71.3, kg, 08/08/21 0:23:00 EDT, Dry Weight Start Date: 06/07/23 Status: Ordered furosemide 40 mg oral tablet 1, tablet, By Mouth, 2 times a day, # 56 tablet, Refills 2, Tot. Refills 2, Maintenance, 04/21/23 18:37:00 EST, Route to Pharmacy Electronically, [facility]/pharmacy #[id number], 183, cm, 03/28/23 [...] tablet, 2 Refills, Maintenance, 04/27/23 13:02:00 EST, [facility] STORE 03775, 183, cm, 03/28/23 11:43:00 EST, Height, 71.3, kg, 08/08/21 0:23:00 EDT, Dry Weight Start Date: 04/27/23 Status: Ordered isosorbide mononitrate 60 mg oral tablet, extended release 1 tablet, By Mouth, Daily in AM, # 28 tablet, 5 Refills, Maintenance, 04/21/23 18:37:00 EST, [facility]/pharmacy #[id number], 183, cm, 03/28/23 11:43:00 EST, Height, 71.3, kg, 08/08/21 0:23:00 EDT, Dry Weight Start Date: 04/21/23 Stop Date: 10/06/23 Status: Ordered Mylanta Maximum Strength oral suspension 5 mL, By Mouth, 4 times a day, PRN for control of stomach acid, # 200 mL, 1 Refills, Maintenance, 08/12/21 13:46:00 EDT, Suspension, [facility]/pharmacy #[id number], Partial fill upon patient request if the prescription is for a schedule II opioid drug., 5 mL By M... Start Date: 08/12/21 Status: Ordered Narcan 4 mg/0.1 mL nasal spray = 4 mg, Nares, Both, Once, may repeat every 2 to 3 minutes until patient responds, # 1 each, 0 Refills, Soft Stop, 05/14/23 10:41:00 EST, [facility]/pharmacy #[id number], Partial fill upon patient request if the prescription is for a schedule II opioid drug., 183,... Start Date: 05/14/23 Status: Ordered nitroglycerin 0.4 mg sublingual tablet 1 tablet = 0.4 mg, Sublingual, Every 5 minutes, PRN Chest Pain, # 25 tablet, 3 Refills, Maintenance, 08/24/19 15:40:00 EDT, [facility]/pharmacy #[id number], 183, cm, 05/25/19 15:06:00 EST, Height, 88.3, kg, 08/31/17 3:30:00 EDT, Dry Weight Start Date: 08/24/19 Stop Date: 12/22/19 Status: Ordered oxyCODONE 30 mg oral tablet 1-2 tablet, By Mouth, Every 3 hours, [employer] checked. fill 06/15/23, # 84 tablet, 0 Refills, Maintenance, 06/16/23 6:51:00 EST, [facility]/pharmacy #[id number], may partial fill upon request;, 183, cm, 05/10/23 11:59:00 EST, Height, 71.3, kg, 08/08/21 0:23:00 EDT, Start Date: 06/16/23 Stop Date: 06/23/23 Status: Ordered pantoprazole 40 mg oral delayed [...] Start Date: 11/30/22 Status: Ordered Potassium Chloride (Fjk-Xalu-Rdu 10) 10 mEq oral tablet, extended release See Instructions, TAKE 2 TABLETS BY MOUTH EVERY MORNING AND TAKE 1 TABLET EVERY EVENING, # 84 tablet, 2 Refills, Maintenance, 04/27/23 13:02:00 EST, [facility], 183, cm, 03/28/23 11:43:00 EST, Height, 71.3, kg, 08/08/21 0:23:00 EDT, Dry Weight Start Date: 04/27/23 Status: Ordered sertraline 100 mg oral tablet 1 tablet, By Mouth, Daily, # 28 tablet, 5 Refills, Maintenance, 06/09/22 8:26:00 EST, [facility], 183, cm, 03/16/22 8:31:00 EDT, Height, 71.3, kg, 08/08/21 0:23:00 EDT, Dry Weight Start Date: 06/09/22 Status: Ordered sertraline 100 mg oral tablet See Instructions, TAKE 1 TABLET BY MOUTH EVERY DAY, # 28 tablet, 5 Refills, Maintenance, 11/30/22 15:39:00 EDT, [facility], 183, cm, 10/08/22 16:18:00 EDT, Height, 71.3, kg, 08/08/21 0:23:00 EDT, Dry Weight Start Date: 11/30/22 Status: Ordered spironolactone 25 mg oral tablet 1, tablet, By Mouth, Daily, # 28 tablet, Refills 4, Maintenance, 07/08/22 11:30:00 EST, Route to Pharmacy Electronically, [facility], 183, cm, 03/16/22 8:31:00 EDT, Height, 71.3, kg, 08/08/21 0:23:00 EDT, Dry Weight Start Date: 07/08/22 Status: Ordered spironolactone 25 mg oral tablet See Instructions, TAKE 1 TABLET BY MOUTH EVERY DAY, # 28 tablet, Refills 4, Maintenance, 11/30/22 15:38:00 EDT, Instructions Replace Required Details, Route to Pharmacy Electronically, [facility] ST[facility] [id number], 183, cm, 10/08/22 16:18:00 EDT, Height, 71.3, kg,... Start Date: 11/30/22 Status: Ordered sucralfate 1 gm oral tablet 1, tablet, By Mouth, 3 times a day before meals, AND BEDTIME., # 112 tablet, Refills 5, Maintenance, 02/04/23 16:32:00 EDT, Route to Pharmacy Electronically, [facility] STORE 77470, 183, cm, 10/08/22 16:18:00 EDT, Height, 71.3, kg, 08/08/21 0:23:00 EDT, Dry... Start Date: 02/04/23 Status: Ordered Vitamin B-12 1000 mcg oral tablet 1, tablet, By Mouth, Daily, # 28 tablet, Refills 11, Tot. Refills 11, Maintenance, 04/21/23 18:37:00 EST, Route to Pharmacy Electronically, [facility]/pharmacy #[id number], 183, cm, 03/28/23 [...] Role: Lifetime Consulting Physician Address: Address: [address] [place] [address] [address] [facility] [address]- [place] Name: Hannah Garcia NP Position: [facility] PCO Associate Professional Member Role: PCP Address: Address: [address] [place] [address], [address] [place] [address]- [place] Name: Eduin Arias MD Position: [facility] Renal MD Member Role: Lifetime Consulting Physician Address: Address: [address] [place] [address], [address] [place] [address]- [place] Name: Ana Herrera RN Position: [facility] [...] Role: Lifetime Consulting Physician Address: Address: [address] [place] [address] [facility] [address] Name: Yesica Serna RN Position: [facility] [...] Team Related Persons Name: MELLODUTCH HURTADO Address: [place], [place] Name: ALL AYERS Address: home [address] [place], [place] Name: ALL MANZANARES Address: home [address], [place] Name: CHRISTEN GRIMALDO Address: home [address], [place]
--- OUTSIDE RECORDS SUMMARY | 2023-11-18 12:37 | XMS_ITS | Continuity of Care Document ---
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 Date(s): 08/17/23 - 09/16/23 [facility] [address] [place] [id number]- Allergies, Adverse Reactions, Alerts Substance Reaction Severity [...] 06/30/23 12:58:00 EST, Route to Pharmacy Electronically, [facility]/pharmacy #[id number], 183, cm, 05/10/23 11:59:00 EST, Height, 71.3, kg, 08/08/21 0:23:00 EDT, Dry Weight Start Date: 06/30/23 Status: Ordered amLODIPine 5 mg oral tablet 1 tablet, By Mouth, Daily, # 84 tablet, 0 Refills, Maintenance, 06/30/23 12:58:00 EST, [facility]/pharmacy#[id number], 183, cm, 05/10/23 11:59:00 EST, Height, 71.3, kg, 08/08/21 0:23:00 EDT, Dry Weight Start Date: 06/30/23 Status: Ordered atorvastatin 40 mg oral tablet 1 tablet, By Mouth, Daily, # 90 tablet, 1 Refills, Maintenance, 07/01/23 15:53:00 EST, [facility]/pharmacy#[id number], 183, cm, 05/10/23 11:59:00 [...] tablet, 5 Refills, Maintenance, 04/21/23 18:36:00 EST, [facility]/pharmacy#[id number], 1 tablet By Mouth Daily,x28 days, 183, cm, 03/28/23 11:43:00 EST, Height, 71.3, kg, :23:00 EDT, Dry Weight Start Date: 04/21/23 Stop Date: 10/06/23 Status: Ordered carvedilol 12.5 mg oral tablet 1, tablet, By Mouth, 2 times a day, # 180 tablet, Refills 0, Tot. Refills 0, Maintenance, 07/01/23 15:49:00 EST, Route to Pharmacy Electronically, [facility]/pharmacy #[id number], 183, cm, 05/10/23 11:59:00 EST, Height, 71.3, kg, 08/08/21 0:23:00 EDT, Dry Weight Start Date: 07/01/23 Status: Ordered cholecalciferol 50,000 intl units oral capsule 1 capsule = 50,000 International_Units, By Mouth, Every week, # 13 capsule, 3 Refills, Maintenance,03/19/23 15:28:00 EDT, Capsule, [facility]/pharmacy #[id number], Partial fill upon patient request if the prescription is for a schedule II opioid drug., 183, cm, 0... Start Date: 03/19/23 Stop Date: 03/13/24 Status: Ordered cholecalciferol 50,000 intl units oral capsule 1 capsule = 50,000 International_Units, By Mouth, Every 7 days, # 13 capsule, 3 Refills, Maintenance, 03/20/23 8:29:00 EST, Capsule, [facility]/pharmacy #[id number], Partial fill upon patient request, 183, cm, 10/08/22 16:18:00 EDT, Height, 71.3, kg, 08/08/21 0:23... Start Date: 03/20/23 Stop Date: 03/14/24 Status: Ordered cloNIDine 0.1 mg oral tablet See Instructions, TAKE 1 TABLET BY MOUTH 3 TIMES A DAY, # 84 tablet, Refills 0, Maintenance, 08/10/23 16:24:00 EDT, Instructions Replace Required Details, Route to Pharmacy Electronically, [id number], 183, cm, 05/10/23 11:59:00 EST, Height Start Date: 08/10/23 Status: Ordered clopidogrel 75 mg oral tablet 1, tablet, By Mouth, Daily, # 28 tablet, Refills 5, Tot. Refills 5, Maintenance, 06/08/23 14:08:00 EST, Route to Pharmacy Electronically, [facility]/pharmacy #[id number], 183, cm, 05/10/23 [...] a day, # 56 tablet, 6 Refills, [id number], 183, cm, 08/12/21 14:20:00 EDT, Height, 71.3, kg, 08/08/21 0:23:00 EDT, Dry Weight Start Date: 09/26/21 Status: Ordered Eliquis 5 mg oral tablet See Instructions, TAKE 1 TABLET BY MOUTH TWICE A DAY, # 56 tablet, 6 Refills, Maintenance, 06/07/2409:23:00 EST, [facility]/pharmacy #[id number], 183, cm, 05/10/23 11:59:00 EST, Height, 71.3, kg, 08/08/21 0:23:00 EDT, Dry Weight Start Date: 06/07/23 Status: Ordered furosemide 40 mg oral tablet 1, tablet, By Mouth, 2 times a day, # 168 tablet, Refills 1, Tot. Refills 1, Maintenance, 06/30/23 12:20:00 EST, Route to Pharmacy Electronically, [facility]/pharmacy #[id number], 183, cm, 05/10/23 [...] tablet, 0 Refills, Maintenance, 07/01/23 15:48:00 EST, [facility]/pharmacy #[id number], 183, cm, 05/10/23 11:59:00 EST, Height, 71.3, kg, 08/08/21 0:23:00 EDT, Dry Weight Start Date: 07/01/23 Status: Ordered isosorbide mononitrate 60 mg oral tablet, extended release 1 tablet, By Mouth, Daily in AM, # 28 tablet, 5 Refills, Maintenance, 04/21/23 18:37:00 EST, [facility]/pharmacy #[id number], 183, cm, 03/28/23 [...] Start Date: 06/24/23 Status: Ordered Potassium Chloride (Cbc-Yezg-Uno 10) 10 mEq oral tablet, extended release See Instructions, TAKE 2 TABLETS BY MOUTH EVERY MORNING AND TAKE 1 TABLET EVERY EVENING, # 270 tablet, 1 Refills, Maintenance, 07/01/23 15:52:00 EST, [facility]/pharmacy #[id number], 183, cm, 05/10/23 11:59:00 EST, Height, 71.3, kg, 08/08/21 0:23:00 EDT, Dry Weight Start Date: 07/01/23 Status: Ordered sertraline 100 mg oral tablet 1 tablet, By Mouth, Daily, # 84 tablet, 0 Refills, Maintenance, 09/01/23 11:58:00 EDT, [facility]/pharmacy#[id number], 183, cm, 05/10/23 11:59:00 EST, Height Start Date: 09/01/23 Stop Date: 11/24/23 Status: Ordered sertraline 100 mg oral tablet See Instructions, TAKE 1 TABLET BY MOUTH EVERY DAY, # 28 tablet, 5 Refills, Maintenance, 11/30/22 15:39:00 EDT, [id number], 183, cm, 10/08/22 16:18:00 EDT, Height, 71.3, kg, 08/08/21 0:23:00 EDT, Dry Weight Start Date: 11/30/22 Status: Ordered spironolactone 25 mg oral tablet 1, tablet, By Mouth, Daily, # 28 tablet, Refills 4, Maintenance, 06/24/23 7:44:00 EST, Route to Pharmacy Electronically, [id number], 183, cm, 05/10/23 11:59:00 EST, Height, 71.3, kg, 08/08/21 0:23:00 EDT, Dry Weight Start Date: 06/24/23 Status: Ordered sucralfate 1 gm oral tablet 1, tablet, By Mouth, 3 times a day before meals, AND BEDTIME., # 112 tablet, Refills 5, Maintenance, 02/04/23 16:32:00 EDT, Route to Pharmacy Electronically, [id number], 183, cm, 10/08/22 16:18:00 EDT, Height, 71.3, kg, 08/08/21 0:23:00 EDT, Dry... Start Date: 02/04/23 Status: Ordered Vitamin B-12 1000 mcg oral tablet 1, tablet, By Mouth, Daily, # 28 tablet, Refills 11, Tot. Refills 11, Maintenance, 04/21/23 18:37:00 EST, Route to Pharmacy Electronically, [facility]/pharmacy #[id number], 183, cm, 03/28/23 [...] Team Personnel Name: Irish Samuel RN Position: [facility] RN Member Role: Primary Care Nurse Name: Mireya Ramsey Position: [facility] RN Supv Member Role: Primary Care Nurse Name: Rhea Betancur RN Position: [facility] SN RN Member Role: Primary Care Nurse Name: Hugo Ayala RN Position: [facility] RN Member Role: Primary Care Nurse Name: Lorna Faust RN Position: [facility] RN Member Role: Primary Care Nurse Name: Wilner Feliciano RN Position: [facility] SN RN Member Role: Primary Care Nurse Name: David Gonzalez MD Position: [facility] Renal MD Member Role: Lifetime Consulting Physician Address: Address: [address] [place] [address] [address] [facility] [place] [address]- Name: Hannah Garcia NP Position: [facility] PCO Associate Professional Member Role: PCP Address: Address: [address] [place] [address], [address] [place] [address]- Name: Eduin Arias MD Position: [facility] Renal MD Member Role: Lifetime Consulting Physician Address: Address: [address] [place] [address], [address] [place] [address]- [place] Name: Ana Herrera RN Position: [facility] AMB Nurse Member Role: Primary Care Nurse Name: Carlos Montez RN Position: [facility] Outreach Member Role: Primary Care Nurse Name: Cadence Quach RN Position: [facility] OB RN Member Role: Primary Care Nurse Name: Maggy Tsang RN Position: [facility] RN Member Role: Primary Care Nurse Name: Keyla Keys RN Position: [facility] SN RN Member Role: Primary Care Nurse Name: Марина Guevara RN Position: [facility] RN Member Role: Primary Care Nurse Name: Lyn Helms RN Position: [facility] RN Member Role: Primary Care Nurse Name: Tatum Biswas RN Position: [facility] RN Member Role: Primary Care Nurse Name: Hugo Bateman RN Position: [facility] RN Member Role: Primary Care Nurse Name: Petros Levy RN Position: [facility] RN Member Role: Primary Care Nurse Name: Charly Burns RN Position: [facility] RN Member Role: Primary Care Nurse Name: Izabella Braun RN Position: [facility] RN Member Role: Primary Care Nurse Name: Hafsa Goyal RN Position: [facility] RN Member Role: Primary Care Nurse Name: Rosalio Jack RN Position: [facility] RN Member Role: Primary Care Nurse Name: Carmela Houser RN Position: [facility] SN RN Member Role: Primary Care Nurse Name: Michael Dickson RN Position: [facility] RN Member Role: Primary Care Nurse Name: Jessica Lema RN Position: [facility] RN Member Role: Primary Care Nurse Name: Phu Flynn MD Position: [facility] Renal MD Member Role: Lifetime Consulting Physician Address: Address: [address] [place] [address] [facility] [address] Name: Yesica Serna RN Position: [facility] OB RN Member Role: Primary Care Nurse Name: Jesusita Lou RN Position: [facility] OB RN Member Role: Primary Care Nurse Name: Husam Elizalde RN Position: [facility] RN Member Role: Primary Care Nurse Name: Marshall Byrd RN Position: [facility] RN Member Role: Primary Care Nurse Care Team Related Persons Name: ROXANNADUTCH HURTADO Address: [place], [place] Name: ALL AYERS Address: home [address], [place] Name: ALL MANZANARES Address: home [address], [place] Name: CHRISTEN GRIMALDO Address: home [address], [place]
--- OUTSIDE RECORDS SUMMARY | 2023-11-18 12:37 | XMS_ITS | Continuity of Care Document ---
Author Organization [facility] Adult Address [address] [place] [address]- Care Team Providers Care Bisque Grader Name Role Phone Radha ODONNELL, Hannah Primary Care Physician [phone] [place] [facility] Date(s): 08/27/19 - 09/06/19 [facility] [address] [place] [address] [facility] Attending Physician: AdmCaroline barreto Admitting Physician: AdmtrCaroline [...] Required Details, Route to Pharmacy Electronically, [facility]/pharmacy #[id number], 183, cm, 05/25/19 15:06:... Start Date: 06/28/19 Status: Ordered amLODIPine 5 mg oral tablet See Instructions, # 28 tablet, Refills 2 Tot. Refills 2, TAKE 1 TABLET BY MOUTH EVERY DAY, [facility]/pharmacy #[id number] Start Date: 03/26/19 Status: Ordered amLODIPine 5 mg oral tablet 5 mg, 1, tablet, By Mouth, Daily, # 30 tablet, Refills 5, Tot. Refills 5, Maintenance, 06/18/19 14:33:00 EST, Route to Pharmacy Electronically, [facility]/pharmacy #[id number], 183, cm, 05/25/19 15:06:00 EST, Height, 88.3, kg, 08/31/17 3:30:00 EDT, Dry Weight Start Date: 06/18/19 Stop Date: 12/15/19 Status: Ordered atorvastatin 40 mg oral tablet See Instructions, TAKE 1 TABLET BY MOUTH EVERY DAY, # 28 tablet, 5 Refills, Soft Stop, 08/13/19 11:46:00 EDT, [facility]/pharmacy #[id number], 183, cm, 05/25/19 15:06:00 EST, Height, 88.3, kg, 08/31/17 3:30:00 EDT, Dry Weight Start Date: 08/13/19 Status: Ordered buPROPion 150 mg/24 hours (XL) oral tablet, extended release 1 tablet = 150 mg, By Mouth, Every 24 hours, # 30 tablet, 5 Refills, Maintenance, 05/21/19 10:08:00EST, ER Tablet, [facility]/pharmacy #[id number], 1 tablet By Mouth Every 24 hours, 183, cm, 01/23/19 14:41:00 EDT, Height, 88.3, kg, 08/31/17 3:30:00 EDT, Dry Weight Start Date: 05/21/19 Status: Ordered buPROPion 150 mg/24 hours (XL) oral tablet, extended release 1 tablet = 150 mg, By Mouth, Every 24 hours, # 30 tablet, 5 Refills, Maintenance, 05/20/19 10:41:00EST, ER Tablet, [facility]/pharmacy #[id number], Bubble pack and delivery, 1 tablet By Mouth Every 24 hours, 183, cm, 01/23/19 14:41:00 EDT, Height, 88.3, kg, 08/31... Start Date: 05/20/19 Status: Ordered carvedilol 12.5 mg oral tablet 12.5 mg, 1, tablet, By Mouth, 2 times a day, # 60 tablet, Refills 5, Tot. Refills 5, Soft Stop, 03/25/19 11:48:47 EST, Route to Pharmacy Electronically, [id number], [facility]/pharmacy #[id number] Start Date: 03/25/19 Status: Ordered clopidogrel 75 mg oral tablet 75 mg, 1, tablet, By Mouth, Daily, # 30 tablet, Refills 5, Tot. Refills 5, Maintenance, 07/16/19 14:53:00 EST, Route to Pharmacy Electronically, [facility]/pharmacy #[id number], 183, cm, 05/25/19 15:06:00 EST, Height, 88.3, kg, 08/31/17 3:30:00 EDT, Dry Weight Start Date: 07/16/19 Status: Ordered [facility] B-12 1,000 MCG TABLET See Instructions, # 30 tablet, TAKE 1 TABLET BY MOUTH EVERY DAY, [facility]/pharmacy #[id number] Start Date: 03/20/19 Status: Ordered docusate sodium 100 mg oral capsule 100 mg, 1, capsule, By Mouth, 3 times a day, Bubble Pack and Delivery, # 90 capsule, Refills 5, Tot. Refills 5, Maintenance, 11/22/17 13:28:22 EDT, Route to Pharmacy Electronically, [id number], [facility]/pharmacy #[id number] Start Date: 11/22/17 Stop Date: 05/21/18 Status: Ordered Eliquis 5 mg oral tablet 1 tablet = 5 mg, By Mouth, 2 times a day, # 60 tablet, 5 Refills, Maintenance, 05/21/19 10:06:00 EST, Tablet, [facility]/pharmacy #[id number], 183, cm, 01/23/19 14:41:00 EDT, Height, 88.3, kg, 08/31/17 3:30:00 EDT, Dry Weight Start Date: 05/21/19 Status: Ordered Eliquis 5 mg oral tablet See Instructions, # 56 tablet, Refills 3 Tot. Refills 3, TAKE 1 TABLET BY MOUTH TWICE A DAY, [facility]/pharmacy #[id number] Start Date: 01/30/19 Status: Ordered furosemide 40 mg oral tablet 40 mg, 1, tablet, By Mouth, 2 times a day, # 60 tablet, Refills 1, Tot. Refills 1, Soft Stop, 09/05/19 20:18:00 EDT, Route to Pharmacy Electronically, [facility]/pharmacy #[id number], 183, cm, 05/25/19 15:06:00 EST, Height, Dry Weight Start Date: 09/05/19 Stop Date: 11/04/19 Status: Ordered furosemide 40 mg oral tablet 40 mg, 1, tablet, By Mouth, Daily, # 30 tablet, Refills 5, Tot. Refills 5, Maintenance, 06/18/19 14:33:00 EST, Route to Pharmacy Electronically, [facility]/pharmacy #[id number], 183, cm, 05/25/19 15:06:00 EST, Height, 88.3, kg, 08/31/17 3:30:00 EDT, Dry Weight Start Date: 06/18/19 Stop Date: 12/15/19 Status: Ordered hydrALAZINE 25 mg oral tablet See Instructions, 1 TABLET BY MOUTH 2 TIMES A DAY, # 56 tablet, Refills 1, Tot. Refills 1, Soft Stop, 04/24/19 8:38:36 EST, Instructions Replace Required Details, Route to Pharmacy Electronically, [id number], [facility]/pharmacy #44... Start Date: 04/24/19 Status: Ordered hydrALAZINE 25 mg oral tablet 25 mg, 1, tablet, By Mouth, 2 times a day, # 60 tablet, Refills 5, Tot. Refills 5, Maintenance, 06/18/19 14:34:00 EST, Route to Pharmacy Electronically, [facility]/pharmacy #[id number], 183, cm, 05/25/19 15:06:00EST, Height, 88.3, kg, 08/31/17 3:30:00 EDT, Dry We... Start Date: 06/18/19 Stop Date: 12/15/19 Status: Ordered isosorbide mononitrate 60 mg oral tablet, extended release See Instructions, 1 TABLET BY MOUTH DAILY IN AM,, # 28 tablet, Refills 1, Tot. Refills 1, Soft Stop, 06/28/19 16:11:00 EST, Instructions Replace Required Details, Route to Pharmacy Electronically, [facility]/pharmacy #[id number], 183, cm, 05/25/19 15:06:00 EST, He... Start Date: 06/28/19 Status: Ordered NIFEdipine 30 mg oral tablet, extended release 30 mg, 1, tablet, By Mouth, Daily, Bubble Pack and Delivery, # 30 tablet, Refills 3, Tot. Refills 3, Maintenance, 03/27/18 8:38:30 EST, Route to Pharmacy Electronically, [id number], [facility]/pharmacy #[id number] Start Date: 03/27/18 Status: Ordered nitroglycerin 0.4 mg sublingual tablet 1 tablet = 0.4 mg, Sublingual, Every 5 minutes, PRN Chest Pain, # 25 tablet, 3 Refills, Maintenance, 08/24/19 15:40:00 EDT, [facility]/pharmacy #[id number], 183, cm, 05/25/19 15:06:00 EST, Height, 88.3, kg, 08/31/17 3:30:00 EDT, Dry Weight Start Date: 08/24/19 Stop Date: 12/22/19 Status: Ordered oxyCODONE 30 mg oral tablet 2 tablet = 60 mg, By Mouth, Every 3 hours, HR REPRESENTATIVE checked, # 224 tablet, 0 Refills, Acute 05/15/20 9:27:00 EST, 09/04/19 13:58:00 EDT, [facility]/pharmacy #[id number], may partial fill upon request, 09/06/19, 183, cm, 05/25/19 15:06:00 EST, Height, Dry Weight Start Date: 09/04/19 Stop Date: 05/15/20 Status: Ordered pantoprazole 40 mg oral delayed release tablet See Instructions, # 28 tablet, Refills 2 Tot. Refills 2, TAKE 1 TABLET BY MOUTH EVERY DAY, [facility]/pharmacy #[id number] Start Date: 02/26/19 Status: [...] 01/29/19 17:07:02 EDT, Route to Pharmacy Electronically, [id number], [facility]/pharmacy #[id number], Bubble pack and Delivery Start Date: 01/29/19 Stop Date: 07/28/19 Status: Ordered sertraline 100 mg oral tablet 1 tablet = 100 mg, By Mouth, Daily, # 30 tablet, 6 Refills, Maintenance, 07/16/19 14:54:00 EST, Tablet, [facility]/pharmacy #[id number], 183, cm, [...] 07/16/19 14:54:00 EST, Route to Pharmacy Electronically, [facility]/pharmacy #[id number], 183, cm, 05/25/19 15:06:00 EST, Height, 88.3, kg, 08/31/17 3:30:00 EDT, Dry Weight Start Date: 07/16/19 Status: Ordered spironolactone 25 mg oral tablet See Instructions, # 30 tablet, Refills 1 Tot. Refills 1, TAKE 1 TABLET BY MOUTH EVERY DAY, [facility]/pharmacy #[id number] Start Date: 03/26/19 Status: Ordered spironolactone 25 mg oral tablet 25 mg, 1, tablet, By Mouth, Daily, # 30 tablet, Refills 1, Tot. Refills 1, Maintenance, 05/21/19 10:07:00 EST, Route to Pharmacy Electronically, [facility]/pharmacy #[id number], 183, cm, 01/23/19 14:41:00 EDT, Height, 88.3, kg, 08/31/17 3:30:00 EDT, Dry Weight Start Date: 05/21/19 Status: Ordered sucralfate 1 gm oral tablet 1 Gm, 1, tablet, By Mouth, 3 times a day before meals and bedtime, # 120 tablet, Refills 2, Tot. Refills 2, Soft Stop, 06/18/19 9:36:00 EST, [id number] 183,cm, 05/25/19 15:06:00 EST, Height, 88.3, kg, ... Start Date: 06/18/19 Stop Date: 09/16/19 Status: Ordered sucralfate 1 gm oral tablet 1 Gm, 1, tablet, By Mouth, 3 times a day before meals and bedtime, # 120 tablet, Refills 2, Tot. Refills 2, Maintenance, 08/13/19 15:11:00 EDT, Route to Pharmacy Electronically, [facility]/pharmacy #[id number], 183, cm, 05/25/19 15:06:00 EST, Height, 88.3, kg, ... Start Date: 08/13/19 Stop Date: 02/09/20 Status: Ordered Vitamin B-12 1000 mcg oral tablet See Instructions, # 28 tablet, Refills 1 Tot. Refills 1, TAKE 1 TABLET BY MOUTH EVERY DAY, [facility]/pharmacy #[id number] Start Date: 03/26/19 Status: Ordered Vitamin B12 1000 mcg oral tablet 1 tablet = 1,000 mcg, By Mouth, Daily, # 30 tablet, 2 Refills, Maintenance, 05/21/19 10:03:00 EST, Tablet, [facility]/pharmacy #[id number], 183, cm, 01/23/19 14:41:00 [...]
--- OUTSIDE RECORDS SUMMARY | 2023-11-18 12:37 | XMS_ITS | Continuity of Care Document ---
Author Organization [facility] Adult Address [address] [place] [id number]- Care Team Providers Care Inter Fold Roll Cutter Name Role Phone Hannah Garcia NP Primary Care Physician Encounter [facility] Date(s): 08/27/19 - 09/03/[address] [address]- [facility] Encounter Diagnosis CHF exacerbation(Discharge Diagnosis) - 08/27/19 Atrial fibrillation(Discharge Diagnosis) - 08/27/19 Hypertension, renal disease(Discharge Diagnosis) - 08/27/19 Attending Physician: Hannah Garcia NP Allergies, Adverse [...] Replace Required Details, Route to Pharmacy Electronically, [facility]/pharmacy #[id number], 183, cm, 05/25/19 15:06:... Start Date: 06/28/19 Status: Ordered amLODIPine 5 mg oral tablet See Instructions, # 28 tablet, Refills 2 Tot. Refills 2, TAKE 1 TABLET BY MOUTH EVERY DAY, [facility]/pharmacy #[id number] Start Date: 03/26/19 Status: Ordered amLODIPine 5 mg oral tablet 5 mg, 1, tablet, By Mouth, Daily, # 30 tablet, Refills 5, Tot. Refills 5, Maintenance, 06/18/19 14:33:00 EST, [id number] 183, cm, 05/25/19 15:06:00 EST, Height, 88.3, kg, 08/31/17 3:30:00 EDT, Dry Weight Start Date: 06/18/19 Stop Date: 12/15/19 Status: Ordered atorvastatin 40 mg oral tablet See Instructions, TAKE 1 TABLET BY MOUTH EVERY DAY, # 28 tablet, 5 Refills, Soft Stop, 08/13/19 11:46:00 EDT, [facility]/pharmacy #[id number], 183, cm, 05/25/19 15:06:00 EST, Height, 88.3, kg, 08/31/17 3:30:00 EDT, Dry Weight Start Date: 08/13/19 Status: Ordered buPROPion 150 mg/24 hours (XL) oral tablet, extended release 1 tablet = 150 mg, By Mouth, Every 24 hours, # 30 tablet, 5 Refills, Maintenance, 05/21/19 10:08:00EST, ER Tablet, [facility]/pharmacy #[id number], 1 tablet By Mouth Every 24 hours, 183, cm, 01/23/19 14:41:00 EDT, Height, 88.3, kg, 08/31/17 3:30:00 EDT, Dry Weight Start Date: 05/21/19 Status: Ordered buPROPion 150 mg/24 hours (XL) oral tablet, extended release 1 tablet = 150 mg, By Mouth, Every 24 hours, # 30 tablet, 5 Refills, Maintenance, 05/20/19 10:41:00EST, ER Tablet, [facility]/pharmacy #[id number], Bubble pack and delivery, 1 tablet By Mouth Every 24 hours, 183, cm, 01/23/19 14:41:00 EDT, Height, 88.3, kg, 08/31... Start Date: 05/20/19 Status: Ordered carvedilol 12.5 mg oral tablet 12.5 mg, 1, tablet, By Mouth, 2 times a day, # 60 tablet, Refills 5, Tot. Refills 5, Soft Stop, 03/25/19 11:48:47 EST, Route to Pharmacy Electronically, [id number], [facility]/pharmacy #[id number] Start Date: 03/25/19 Status: Ordered clopidogrel 75 mg oral tablet 75 mg, 1, tablet, By Mouth, Daily, # 30 tablet, Refills 5, Tot. Refills 5, Maintenance, 07/16/19 14:53:00 EST, Route to Pharmacy Electronically, [facility]/pharmacy #[id number], 183, cm, 05/25/19 15:06:00 EST, Height, 88.3, kg, 08/31/17 3:30:00 EDT, Dry Weight Start Date: 07/16/19 Status: Ordered [facility] B-12 1,000 MCG TABLET See Instructions, # 30 tablet, TAKE 1 TABLET BY MOUTH EVERY DAY, [facility]/pharmacy #[id number] Start Date: 03/20/19 Status: Ordered docusate sodium 100 mg oral capsule 100 mg, 1, capsule, By Mouth, 3 times a day, Bubble Pack and Delivery, # 90 capsule, Refills 5, Tot. Refills 5, Maintenance, 11/22/17 13:28:22 EDT, Route to Pharmacy Electronically, [id number], [facility]/pharmacy #[id number] Start Date: 11/22/17 Stop Date: 05/21/18 Status: Ordered Eliquis 5 mg oral tablet 1 tablet = 5 mg, By Mouth, 2 times a day, # 60 tablet, 5 Refills, Maintenance, 05/21/19 10:06:00 EST, Tablet, [facility]/pharmacy #[id number], 183, cm, 01/23/19 14:41:00 EDT, Height, 88.3, kg, 08/31/17 3:30:00 EDT, Dry Weight Start Date: 05/21/19 Status: Ordered Eliquis 5 mg oral tablet See Instructions, # 56 tablet, Refills 3 Tot. Refills 3, TAKE 1 TABLET BY MOUTH TWICE A DAY, [facility]/pharmacy #[id number] Start Date: 01/30/19 Status: Ordered furosemide 40 mg oral tablet See Instructions, TAKE 1 TABLET BY MOUTH EVERY DAY, # 28 tablet, Refills 1, Tot. Refills 1, Soft Stop, 04/24/19 8:38:35 EST, Instructions Replace Required Details, Route to Pharmacy Electronically, [id number], [facility]/pharmacy #4... Start Date: 04/24/19 Status: Ordered furosemide 40 mg oral tablet 40 mg, 1, tablet, By Mouth, Daily, # 30 tablet, Refills 5, Tot. Refills 5, Maintenance, 06/18/19 14:33:00 EST, Route to Pharmacy Electronically, [facility]/pharmacy #[id number], 183, cm, 05/25/19 15:06:00 EST, Height, 88.3, kg, 08/31/17 3:30:00 EDT, Dry Weight Start Date: 06/18/19 Stop Date: 12/15/19 Status: Ordered hydrALAZINE 25 mg oral tablet See Instructions, 1 TABLET BY MOUTH 2 TIMES A DAY, # 56 tablet, Refills 1, Tot. Refills 1, Soft Stop, 04/24/19 8:38:36 EST, Instructions Replace Required Details, Route to Pharmacy Electronically, [id number], [facility]/pharmacy #44... Start Date: 04/24/19 Status: Ordered hydrALAZINE 25 mg oral tablet 25 mg, 1, tablet, By Mouth, 2 times a day, # 60 tablet, Refills 5, Tot. Refills 5, Maintenance, 06/18/19 14:34:00 EST, Route to Pharmacy Electronically, [facility]/pharmacy #[id number], 183, cm, 05/25/19 15:06:00EST, Height, 88.3, kg, 08/31/17 3:30:00 EDT, Dry We... Start Date: 06/18/19 Stop Date: 12/15/19 Status: Ordered isosorbide mononitrate 60 mg oral tablet, extended release See Instructions, 1 TABLET BY MOUTH DAILY IN AM,, # 28 tablet, Refills 1, Tot. Refills 1, Soft Stop, 06/28/19 16:11:00 EST, Instructions Replace Required Details, Route to Pharmacy Electronically, [facility]/pharmacy #[id number], 183, cm, 05/25/19 15:06:00 EST, He... Start Date: 06/28/19 Status: Ordered NIFEdipine 30 mg oral tablet, extended release 30 mg, 1, tablet, By Mouth, Daily, Bubble Pack and Delivery, # 30 tablet, Refills 3, Tot. Refills 3, Maintenance, 03/27/18 8:38:30 EST, Route to Pharmacy Electronically, [id number], [facility]/pharmacy #[id number] Start Date: 03/27/18 Status: Ordered [...] 60 mg, By Mouth, Every 3 hours, AIDS COUNSELOR checked, # 224 tablet, 0 Refills, Acute 05/15/20 10:19:00 EST, 08/24/19 13:31:00 EDT, [facility]/pharmacy #[id number], may partial fill upon request, 08/27/19, 183, cm, 05/25/19 15:06:00 EST, Height, 88.3, kg, ... Start Date: 08/24/19 Stop Date: 05/15/20 Status: Ordered pantoprazole 40 mg oral delayed release tablet See Instructions, # 28 tablet, Refills 2 Tot. Refills 2, TAKE 1 TABLET BY MOUTH EVERY DAY, [facility]/pharmacy #[id number] Start Date: 02/26/19 Status: Ordered [...] 01/29/19 17:07:02 EDT, Route to Pharmacy Electronically, [id number], [facility]/pharmacy #[id number], Bubble pack and Delivery Start Date: 01/29/19 Stop Date: 07/28/19 Status: Ordered sertraline 100 mg oral tablet 1 tablet = 100 mg, By Mouth, Daily, # 30 tablet, 6 Refills, Maintenance, 07/16/19 14:54:00 EST, Tablet, [facility]/pharmacy #[id number], 183, cm, 05/25/19 [...] 07/16/19 14:54:00 EST, Route to Pharmacy Electronically, [facility]/pharmacy #[id number], 183, cm, 05/25/19 15:06:00 EST, Height, 88.3, kg, 08/31/17 3:30:00 EDT, Dry Weight Start Date: 07/16/19 Status: Ordered spironolactone 25 mg oral tablet See Instructions, # 30 tablet, Refills 1 Tot. Refills 1, TAKE 1 TABLET BY MOUTH EVERY DAY, [facility]/pharmacy #[id number] Start Date: 03/26/19 Status: Ordered spironolactone 25 mg oral tablet 25 mg, 1, tablet, By Mouth, Daily, # 30 tablet, Refills 1, Tot. Refills 1, Maintenance, 05/21/19 10:07:00 EST, Route to Pharmacy Electronically, [facility]/pharmacy #[id number], 183, cm, 01/23/19 14:41:00 EDT, Height, 88.3, kg, 08/31/17 3:30:00 EDT, Dry Weight Start Date: 05/21/19 Status: Ordered sucralfate 1 gm oral tablet 1 Gm, 1, tablet, By Mouth, 3 times a day before meals and bedtime, # 120 tablet, Refills 2, Tot. Refills 2, Soft Stop, 06/18/19 9:36:00 EST, Route to Pharmacy Electronically, [facility]/pharmacy #[id number], 183,cm, 05/25/19 15:06:00 EST, Height, 88.3, kg, ... Start Date: 06/18/19 Stop Date: 09/16/19 Status: Ordered sucralfate 1 gm oral tablet 1 Gm, 1, tablet, By Mouth, 3 times a day before meals and bedtime, # 120 tablet, Refills 2, Tot. Refills 2, Maintenance, 08/13/19 15:11:00 EDT, Route to Pharmacy Electronically, [facility]/pharmacy #[id number], 183, cm, 05/25/19 15:06:00 EST, Height, 88.3, kg, ... Start Date: 08/13/19 Stop Date: 02/09/20 Status: Ordered Vitamin B-12 1000 mcg oral tablet See Instructions, # 28 tablet, Refills 1 Tot. Refills 1, TAKE 1 TABLET BY MOUTH EVERY DAY, [facility]/pharmacy #[id number] Start Date: 03/26/19 Status: Ordered Vitamin B12 1000 mcg oral tablet 1 tablet = 1,000 mcg, By Mouth, Daily, # 30 tablet, 2 Refills, Maintenance, 05/21/19 10:03:00 EST, Tablet, [facility]/pharmacy #[id number], 183, cm, 01/23/19 14:41:00 EDT, [...] artery disease by Rolando Rubin M.D. at [facility]. 5In the past; states this has resolved Diagnosis Diagnosis Type Effective Dates Health Status Clinical Service Informant CHF exacerbation Discharge Diagnosis 08/27/19 Atrial fibrillation Discharge Diagnosis 08/27/19 Hypertension, renal disease Discharge Diagnosis 08/27/19 Social History Social History Type Response Smoking Status Never smoker entered on: 08/24/16 Sex
--- OUTSIDE RECORDS SUMMARY | 2023-11-18 12:37 | XMS_ITS | Continuity of Care Document ---
Author Organization [facility] Adult Address [address] [place] [id number]- Care Team Providers Care Residential Solar Sales Consultant Name Role Phone Radha ODONNELL, Hannah Primary Care Physician [phone] [place] [facility] [place] 04/18[place]23 - 05/18/23 [facility] Adult [address] [place] [id number]- Allergies, Adverse Reactions, Alerts Substance Reaction Severity [...] 01/09/23 7:22:00 EDT, Route to Pharmacy Electronically, [facility], 183, cm, 10/08/22 16:18:00 EDT, Height, 71.3, kg, 08/08/21 0:23:00 EDT, Dry Weight Start Date: 01/09/23 Status: Ordered amLODIPine 5 mg oral tablet 1 tablet, By Mouth, Daily, # 28 tablet, 5 Refills, Maintenance, 11/25/22 16:21:00 EDT, [facility], 183, cm, 10/08/22 16:18:00 EDT, Height, 71.3, kg, 08/08/21 0:23:00 EDT, Dry Weight Start Date: 11/25/22 Status: Ordered atorvastatin 40 mg oral tablet 1 tablet, By Mouth, Daily, # 28 tablet, 2 Refills, Maintenance, 01/09/23 7:23:00 EDT, [facility], 183, cm, 10/08/22 16:18:00 EDT, Height, 71.3, [...] EDT, Route to Pharmacy Electronically, [facility], 183, cm, 10/08/22 16:18:00 EDT, Height, 71.3, [...] EDT, Route to Pharmacy Electronically, [facility], 183, cm, 03/16/22 8:31:00 EDT, Height, 71.3, [...] 6 Refills, Maintenance, 05/14/2216:30:00 EST, [facility], 183, cm, 03/16/22 8:31:00 EDT, Height, 71.3, kg, 08/08/21 0:23:00 EDT, Dry Weight Start Date: 05/14/22 Status: Ordered Eliquis 5 mg oral tablet 1 tablet, By Mouth, 2 times a day, # 56 tablet, 6 Refills, [facility], 183, cm, 08/12/21 14:20:00 EDT, Height, 71.3, kg, 08/08/21 0:23:00 EDT, Dry Weight Start Date: 09/26/21 Status: Ordered Eliquis 5 mg oral tablet See Instructions, TAKE 1 TABLET BY MOUTH TWICE A DAY, # 56 tablet, 6 Refills, Maintenance, 11/30/2314:39:00 EDT, [facility], 183, cm, 10/08/22 16:18:00 EDT, Height, 71.3, [...] 04/27/23 13:02:00 EST, [facility] 750[facility], 183, cm, 03/28/23 11:43:00 EST, Height, 71.3, [...] 0 Refills, Soft Stop, 05/14/23 10:41:00 EST, [facility]/pharmacy #[id number], Partial fill upon [...] 60 mg, By Mouth, Every 3 hours, SUPPLY CHAIN ANALYST checked., # 112 tablet, 0 Refills, Maintenance, 05/18/23 16:20:00 EST, [facility]/pharmacy #4471, 7 days as needs testing performed partial fill upon request;,183, cm, 05/10/23 11:59:00 EST, Height, 71.3, kg,... Start Date: 05/18/23 Stop Date: 05/25/23 Status: Ordered oxyCODONE 30 mg oral tablet 2 tablet = 60 mg, By Mouth, Every 3 hours, SUPPLY CHAIN ANALYST checked., # 112 tablet, 0 Refills, Maintenance, [...] Start Date: 11/30/22 Status: Ordered Potassium Chloride (Ost-[id number] 10) 10 mEq oral tablet, extended release See Instructions, TAKE 2 TABLETS BY MOUTH EVERY MORNING AND TAKE 1 TABLET EVERY EVENING, # 84 tablet, 2 Refills, Maintenance, 04/27/23 13:02:00 EST, [facility], 183, cm, 03/28/23 11:43:00 EST, Height, 71.3, kg, 08/08/21 0:23:00 EDT, Dry Weight Start Date: 04/27/23 Status: Ordered sertraline 100 mg oral tablet 1 tablet, By Mouth, Daily, # 28 tablet, 5 Refills, Maintenance, 06/09/22 8:26:00 EST, [facility], 183, cm, 03/16/22 8:31:00 EDT, Height, 71.3, kg, 08/08/21 0:23:00 EDT, Dry Weight Start Date: 06/09/22 Status: Ordered sertraline 100 mg oral tablet See Instructions, TAKE 1 TABLET BY MOUTH EVERY DAY, # 28 tablet, 5 Refills, Maintenance, 11/30/22 15:39:00 EDT, [facility], 183, cm, 10/08/22 16:18:00 EDT, Height, 71.3, kg, 08/08/21 0:23:00 EDT, Dry Weight Start Date: 11/30/22 Status: Ordered spironolactone 25 mg oral tablet 1, tablet, By Mouth, Daily, # 28 tablet, Refills 4, Maintenance, 07/08/22 11:30:00 EST, Route to Pharmacy Electronically, [facility], 183, cm, 03/16/22 8:31:00 EDT, Height, 71.3, kg, 08/08/21 0:23:00 EDT, Dry Weight Start Date: 07/08/22 Status: Ordered spironolactone 25 mg oral tablet See Instructions, TAKE 1 TABLET BY MOUTH EVERY DAY, # 28 tablet, Refills 4, Maintenance, 11/30/22 15:38:00 EDT, Instructions Replace Required Details, Route to Pharmacy Electronically, [facility], 183, cm, 10/08/22 16:18:00 EDT, Height, 71.3, kg,... Start Date: 11/30/22 Status: Ordered sucralfate 1 gm oral tablet 1, tablet, By Mouth, 3 times a day before meals, AND BEDTIME., # 112 tablet, Refills 5, Maintenance, 02/04/23 16:32:00 EDT, Route to Pharmacy Electronically, [facility], 183, cm, 10/08/22 16:18:00 EDT, Height, 71.3, [...] artery disease by Rolando Rubin M.D. at [facility]. 4In the past; states this has resolved Social History Social History Type Response Smoking Status Never smoker entered on: 08/24/16 Sex Patient Care team information Care Team Personnel Name: Irish Samuel RN Position: [facility] RN Member Role: Primary Care Nurse Name: Mireya Ramsey Position: [facility] RN Supv Member Role: Primary Care Nurse Name: Rhea Betancur RN Position: [facility] SN RN Member Role: Primary Care Nurse Name: Hugo Ayala RN Position: [facility] RN Member Role: Primary Care Nurse Name: Lorna Faust RN Position: [facility] RN Member Role: Primary Care Nurse Name: David Gonzalez MD Position: [facility] Renal MD Member Role: Lifetime Consulting Physician Address: Address: [address] [place] [address] [address] [facility] [address]- [place] Name: Hannah Garcia NP Position: [facility] PCO Associate Professional Member Role: PCP Address: Address: [address] [place] [address], [address] [place] [address]- [place] Name: Eduin Arias MD Position: [facility] Renal MD Member Role: Lifetime Consulting Physician Address: Address: [address] [place] [address], [address] [place] [address]- [place] Name: Ana Herrera RN Position: [facility] RN Member Role: Primary Care Nurse Name: Cadence Quach RN Position: [facility] OB RN Member Role: Primary Care Nurse Name: Maggy Tsang RN Position: S RN Member Role: Primary Care Nurse Name: Keyla Keys RN Position: [facility] SN RN Member Role: Primary Care Nurse Name: Марина Guevara RN Position: [facility] SN RN Member Role: Primary Care Nurse Name: Lyn Helms RN Position: [facility] RN Member Role: Primary Care Nurse Name: Tatum Biswas RN Position: [facility] RN Member Role: Primary Care Nurse Name: Hugo Bateman RN Position: [facility] RN Member Role: Primary Care Nurse Name: Petros Levy RN Position: [facility] RN Member Role: Primary Care Nurse Name: Izabella Braun RN Position: [facility] RN Member Role: Primary Care Nurse Name: Lyndsay King RN Position: [facility] RN Member Role: Primary Care Nurse Name: Cirilo CYTOGENETIC TECHNOLOGISTFelicia Position: [facility] Medical Student Member Role: Primary Care Nurse Name: Hafsa Goyal RN Position: [facility] RN Member Role: Primary Care Nurse Name: Rosalio Jack RN Position: [facility] RN Member Role: Primary Care Nurse Name: Carmela Houser RN Position: [facility] SN RN Member Role: Primary Care Nurse Name: Michael Dickson RN Position: [facility] RN Member Role: Primary Care Nurse Name: Jessica Lema RN Position: [facility] RN Member Role: Primary Care Nurse Name: Phu Flynn MD Position: [facility] Renal MD Member Role: Lifetime Consulting Physician Address: Address: [address] [place] [address] [facility] [address] Name: Yesica Serna RN Position: [facility] OB RN Member Role: Primary Care Nurse Name: Jesusita Lou RN Position: [facility] OB RN Member Role: Primary Care Nurse Name: Husam Elizalde RN Position: [facility] RN Member Role: Primary Care Nurse Name: Marshall Byrd RN Position: [facility] RN Member Role: Primary Care Nurse Care Team Related Persons Name: DUTCH MAR Address: home [place], [place] Name: ALL AYERS Address: home [address], [place] Name: ALL MANZANARES Address: home [address], [place] Name: CHRISTEN GRIMALDO Address: home [address], [place]
--- OUTSIDE RECORDS SUMMARY | 2023-11-18 12:37 | XMS_ITS | Continuity of Care Document ---
Author Organization [facility] Adult Address [address] [place] [address]- Care Team Providers Care Product Development Specialist Name Role Phone Radha ODONNELL, Hannah Primary Care Physician Encounter [facility] [place] Date(s): 09/12/23 - 10/12/23 [facility] Adult [address] [place] [phone]- Allergies, Adverse Reactions, Alerts Substance Reaction Severity [...] 09/22/23 19:43:00 EDT, Route to Pharmacy Electronically, [facility] STORE [id number], 183, cm, 09/08/23 10:09:00 EDT, Height Start Date: 09/22/23 Status: Ordered amLODIPine 5 mg oral tablet 1 tablet, By Mouth, Daily, # 28 tablet, 5 Refills, Maintenance, 09/22/23 19:43:00 EDT, [facility] STORE 03042, 183, cm, 09/08/23 10:09:00 EDT, Height Start Date: 09/22/23 Status: Ordered atorvastatin 40 mg oral tablet 1 tablet, By Mouth, Daily, # 90 tablet, 1 Refills, Maintenance, 07/01/23 15:53:00 EST, [facility]/pharmacy#[id number], 183, cm, 05/10/23 11:59:00 EST, Height, [...] tablet, 0 Refills, Maintenance, 09/20/23 14:28:00 EDT, [facility]/pharmacy#[id number], 1 tablet By Mouth Daily,x90 days, 183, cm, 09/08/23 10:09:00 EDT, Height Start Date: 09/20/23 Stop Date: 12/19/23 Status: Ordered carvedilol 12.5 mg oral tablet 1, tablet, By Mouth, 2 times a day, # 56 tablet, Refills 5, Maintenance, 09/22/23 19:44:00 EDT, Route to Pharmacy Electronically, [facility] STORE 26902, 183, cm, 09/08/23 10:09:00 EDT, Height Start Date: 09/22/23 Status: Ordered cholecalciferol 50,000 intl units oral capsule 1 capsule = 50,000 International_Units, By Mouth, Every week, # 13 capsule, 3 Refills, Maintenance,03/19/23 15:28:00 EDT, Capsule, [facility]/pharmacy #[id number], Partial fill upon [...] 09/22/23 19:45:00 EDT, Route to Pharmacy Electronically, [facility] STORE [id number], 183, cm, 09/08/23 10:09:00 EDT, Height Start Date: 09/22/23 Status: Ordered clopidogrel 75 mg oral tablet 1, tablet, By Mouth, Daily, # 28 tablet, Refills 5, Tot. Refills 5, Maintenance, 06/08/23 14:08:00 EST, Route to Pharmacy Electronically, [facility]/pharmacy #[id number], 183, cm, 05/10/23 11:59:00 EST, [...] tablet, 6 Refills, [facility] STORE 04897, 183, cm, 08/12/21 14:20:00 EDT, Height, 71.3, kg, 08/08/21 0:23:00 EDT, Dry Weight Start Date: 09/26/21 Status: Ordered Eliquis 5 mg oral tablet See Instructions, TAKE 1 TABLET BY MOUTH TWICE A DAY, # 56 tablet, 6 Refills, Maintenance, 06/07/2409:23:00 EST, [facility]/pharmacy #[id number], 183, cm, 05/10/23 11:59:00 EST, Height, 71.3, kg, 08/08/21 0:23:00 EDT, Dry Weight Start Date: 06/07/23 Status: Ordered furosemide 40 mg oral tablet 1, tablet, By Mouth, 2 times a day, # 168 tablet, Refills 1, Tot. Refills 1, Maintenance, 06/30/23 12:20:00 EST, Route to Pharmacy Electronically, [facility]/pharmacy #[id number], 183, cm, 05/10/23 11:59:00 EST, [...] tablet, 5 Refills, Maintenance, 09/22/23 19:45:00 EDT, [facility] STORE 67352, 183, cm, 09/08/23 10:09:00 EDT, Height Start Date: 09/22/23 Status: Ordered isosorbide mononitrate 60 mg oral tablet, extended release 1 tablet, By Mouth, Daily in AM, # 90 tablet, 0 Refills, Maintenance, 09/20/23 14:28:00 EDT, [facility]/pharmacy #[id number], 183, cm, 09/08/23 10:09:00 EDT, [...] 0 Refills, Soft Stop, 05/14/23 10:41:00 EST, [facility]/pharmacy #[id number], Partial fill upon [...] 0 Refills, Maintenance, 08/24/23 7:27:00 EDT, Tablet, [facility]/pharmacy #[id number], Partial fill upon [...] Start Date: 06/24/23 Status: Ordered Potassium Chloride (Mtm-Uomc-Xbe 10) 10 mEq oral tablet, extended release See Instructions, TAKE 2 TABLETS BY MOUTH EVERY MORNING AND TAKE 1 TABLET EVERY EVENING, # 270 tablet, 1 Refills, Maintenance, 07/01/23 15:52:00 EST, [facility]/pharmacy #[id number], 183, cm, 05/10/23 11:59:00 EST, Height, 71.3, kg, 08/08/21 0:23:00 EDT, Dry Weight Start Date: 07/01/23 Status: Ordered sertraline 100 mg oral tablet 1 tablet, By Mouth, Daily, # 84 tablet, 0 Refills, Maintenance, 09/01/23 11:58:00 EDT, [facility]/pharmacy#[id number], 183, cm, 05/10/23 11:59:00 EST, Height Start Date: 09/01/23 Stop Date: 11/24/23 Status: Ordered sertraline 100 mg oral tablet See Instructions, TAKE 1 TABLET BY MOUTH EVERY DAY, # 28 tablet, 5 Refills, Maintenance, 11/30/22 15:39:00 EDT, [facility], 183, cm, 10/08/22 16:18:00 EDT, Height, 71.3, kg, 08/08/21 0:23:00 EDT, Dry Weight Start Date: 11/30/22 Status: Ordered spironolactone 25 mg oral tablet 1, tablet, By Mouth, Daily, # 28 tablet, Refills 4, Maintenance, 06/24/23 7:44:00 EST, Route to Pharmacy Electronically, [facility] STORE 15981, 183, cm, 05/10/23 11:59:00 EST, Height, 71.3, kg, 08/08/21 0:23:00 EDT, Dry Weight Start Date: 06/24/23 Status: Ordered sucralfate 1 gm oral tablet 1, tablet, By Mouth, 3 times a day before meals, AND BEDTIME., # 112 tablet, Refills 5, Maintenance, 02/04/23 16:32:00 EDT, Route to Pharmacy Electronically, [facility], 183, cm, 10/08/22 16:18:00 EDT, Height, 71.3, kg, 08/08/21 0:23:00 EDT, Dry... Start Date: 02/04/23 Status: Ordered Vitamin B-12 1000 mcg oral tablet 1, tablet, By Mouth, Daily, # 28 tablet, Refills 11, Tot. Refills 11, Maintenance, 04/21/23 18:37:00 EST, Route to Pharmacy Electronically, [facility]/pharmacy #[id number], 183, cm, 03/28/23 11:43:00 EST, [...] artery disease by Rolando Rubin M.D. at [facility]. 4In the past; states this has resolved Social History Social History Type Response Smoking Status Never smoker entered on: 08/24/16 Sex Patient Care team information Care Team Personnel Name: Irish Samuel RN Position: [facility] RN Member Role: Primary Care Nurse Name: Ever Blanco RN Position: [facility] ED RN W/OE and Tasks Member Role: Primary Care Nurse Name: Mireya Ramsey Position: [facility] RN Supv Member Role: Primary Care Nurse Name: Rhea Betancur RN Position: [facility] SN RN Member Role: Primary Care Nurse Name: Hugo Ayala RN Position: [facility] RN Member Role: Primary Care Nurse Name: Lorna Faust RN Position: [facility] RN Member Role: Primary Care Nurse Name: Wilner Feliciano RN Position: [facility] SN RN Member Role: Primary Care Nurse Name: David Gonzalez MD Position: [facility] Renal MD Member Role: Lifetime Consulting Physician Address: Address: [address] [place] [address] [address] [place] [address]- Name: Hannah Garcia NP Position: [facility] PCO Associate Professional Member Role: PCP Address: Address: [address] [place] [address], 3rd [place] [address]- [place] Name: Eduin Arias MD Position: [facility] Renal MD Member Role: Lifetime Consulting Physician Address: Address: [address] [place] [address], [facility] [address] [place] [address]- Name: Ana Herrera RN Position: [facility] AMB Nurse Member Role: Primary Care Nurse Name: Carlos Montez RN Position: [facility] Outreach Member Role: Primary Care Nurse Name: Cadence Quach RN Position: [facility] OB RN Member Role: Primary Care Nurse Name: Maggy Tsang RN Position: [facility] RN Member Role: Primary Care Nurse Name: Keyla Keys RN Position: [facility] SN RN Member Role: Primary Care Nurse Name: Марина Guevara RN Position: [facility] SN RN Member Role: Primary Care Nurse Name: Lyn Helms RN Position: [facility] RN Member Role: Primary Care Nurse Name: Tatum Biswas RN Position: [facility] RN Member Role: Primary Care Nurse Name: Hugo Bateman RN Position: [facility] RN Member Role: Primary Care Nurse Name: Petros Levy RN Position: [facility] RN Member Role: Primary Care Nurse Name: Charly Burns RN Position: [facility] RN Member Role: Primary Care Nurse Name: Nilesh Bear RN Position: [facility] RN Member Role: Primary Care Nurse Name: Izabella Braun RN Position: [facility] RN Member Role: Primary Care Nurse Name: Hafsa Goyal RN Position: [facility] RN Member Role: Primary Care Nurse Name: Rosalio Jack RN Position: [facility] RN Member Role: Primary Care Nurse Name: Carmela Houser RN Position: [facility] SN RN Member Role: Primary Care Nurse Name: Michael Dickson RN Position: [facility] RN Member Role: Primary Care Nurse Name: Jessica Lema RN Position: [facility] RN Member Role: Primary Care Nurse Name: Phu Flynn MD Position: [facility] Renal MD Member Role: Lifetime Consulting Physician Address: Address: [address] [place] [address] [facility] [place] [address]- Name: Yesica Serna RN Position: [facility] OB RN Member Role: Primary Care Nurse Name: Jesusita Lou RN Position: [facility] OB RN Member Role: Primary Care Nurse Name: Husam Elizalde RN Position: S RN Member Role: Primary Care Nurse Name: Marshall Byrd RN Position: S RN Member Role: Primary Care Nurse Care Team Related Persons Name: DUTCH MAR Address: [place] [address] Name: ALL AYERS Address: [address] [place] [address] Name: ALL MANZANARES Address: [address] [place] [address] Name: CHRISTEN GRIMALDO Address: [address] [place] [address]
--- OUTSIDE RECORDS SUMMARY | 2023-11-18 12:37 | XMS_ITS | Continuity of Care Document ---
Author Organization [facility] Adult Address [address] [place] [address]- Care Team Providers Care Radio Despatcher Name Role Phone Radha ODONNELL, Hannah Primary Care Physician [phone] Encounter [facility] [place] Date(s): 08/17/23 - 09/16/23 [facility] [address] [place] [id number]- Allergies, Adverse Reactions, Alerts Substance Reaction Severity [...] Details, Route to Pharmacy Electronically, [facility], 183, cm, 05/10/23 11:59:00 EST, Height Start [...] 6 Refills, [facility] STORE 48144, 183, cm, 08/12/21 14:20:00 EDT, Height, 71.3, [...] 06/30/23 12:20:00 EST, [id number], cm, 05/10/23 11:59:00 EST, Height, [...] Start Date: 06/24/23 Status: Ordered Potassium Chloride (Asi-Hkie-Ktb 10) 10 mEq oral tablet, extended release [...] Refills, Maintenance, 11/30/22 15:39:00 EDT, [facility], 183, cm, 10/08/22 16:18:00 EDT, Height, 71.3, kg, 08/08/21 0:23:00 EDT, Dry Weight Start Date: 11/30/22 Status: Ordered spironolactone 25 mg oral tablet 1, tablet, By Mouth, Daily, # 28 tablet, Refills 4, Maintenance, 06/24/23 7:44:00 EST, Route to Pharmacy Electronically, [facility] STORE 64916, 183, cm, 05/10/23 11:59:00 EST, Height, 71.3, kg, 08/08/21 0:23:00 EDT, Dry Weight Start Date: 06/24/23 Status: Ordered sucralfate 1 gm oral tablet 1, tablet, By Mouth, 3 times a day before meals, AND BEDTIME., # 112 tablet, Refills 5, Maintenance, 02/04/23 16:32:00 EDT, Route to Pharmacy Electronically, [facility], 183, cm, 10/08/22 16:18:00 EDT, Height, 71.3, [...] Rubin M.D. at [facility]. 4In the past; states this has resolved Social History Social History Type Response Smoking Status Never smoker entered on: 08/24/16 Sex Patient Care team information Care Team Personnel Name: Irish Samuel RN Position: [facility] RN Member Role: Primary Care Nurse Name: Mireya Ramsey Position: [facility] RN Supv Member Role: Primary Care Nurse Name: Rhea Betancur RN Position: [facility] SN RN Member Role: Primary Care Nurse Name: Hugo Ayala RN Position: [facility] RN Member Role: Primary Care Nurse Name: Lorna Faust RN Position: [facility] RN Member Role: Primary Care Nurse Name: Wilner Feliciano RN Position: [facility] SN RN Member Role: Primary Care Nurse Name: David Gonzalez MD Position: [facility] Renal MD Member Role: Lifetime Consulting Physician Address: Address: [address] [place] [address] [address] [facility] [address]- Name: Hannah Garcia NP Position: [facility] PCO Associate Professional Member Role: PCP Address: Address: [address] [place] [address], 3[address] [place] [address]- Name: Eduin Arias MD Position: [facility] Renal MD Member Role: Lifetime Consulting Physician Address: Address: [address] [place] [address], [address] [address]- [place] Name: Ana Herrera RN Position: [facility] AMB Nurse Member Role: Primary Care Nurse Name: Carlos Montez RN Position: [facility] Outreach Member Role: Primary Care Nurse Name: Cadence Quach RN Position: [facility] OB RN Member Role: Primary Care Nurse Name: Maggy Tsang RN Position: [facility] RN Member Role: Primary Care Nurse Name: Keyla Keys RN Position: [facility] SN RN Member Role: Primary Care Nurse Name: Марина Guevara RN Position: [facility] RN Member Role: Primary Care Nurse Name: Lyn Helms RN Position: [facility] RN Member Role: Primary Care Nurse Name: Tatum Biswas RN Position: [facility] RN Member Role: Primary Care Nurse Name: Hugo Bateman RN Position: [facility] RN Member Role: Primary Care Nurse Name: Petros Levy RN Position: [facility] RN Member Role: Primary Care Nurse Name: Charly Burns RN Position: [facility] RN Member Role: Primary Care Nurse Name: Izabella Braun RN Position: [facility] RN Member Role: Primary Care Nurse Name: Hafsa Goyal RN Position: [facility] RN Member Role: Primary Care Nurse Name: Rosalio Jack RN Position: [facility] RN Member Role: Primary Care Nurse Name: Carmela Houser RN Position: [facility] SN RN Member Role: Primary Care Nurse Name: Michael Dickson RN Position: [facility] RN Member Role: Primary Care Nurse Name: Jessica Lema RN Position: [facility] RN Member Role: Primary Care Nurse Name: Phu Flynn MD Position: [facility] Renal MD Member Role: Lifetime Consulting Physician Address: Address: [address] [place] [address] [facility] [address] Name: Yesica Serna RN Position: [facility] OB RN Member Role: Primary Care Nurse Name: Jesusita Lou RN Position: [facility] OB RN Member Role: Primary Care Nurse Name: Husam Elizalde RN Position: [facility] RN Member Role: Primary Care Nurse Name: Marshall Byrd RN Position: [facility] RN Member Role: Primary Care Nurse Care Team Related Persons Name: ROXANNAREINALDO HURTADOISSA Address: [place], [place] Name: ALL AYERS Address: home [address] [place], [place] Name: ALL MANZANARES Address: [address] [place], [place] Name: CHRISTEN GRIMALDO Address: [address] [place], [place]
--- OUTSIDE RECORDS SUMMARY | 2023-11-18 12:38 | XMS_ITS | Continuity of Care Document ---
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 Role Phone Radha ODONNELL, Hannah Primary Care Physician [place] [facility] [place]18[place]23 - 06/17/23 [facility] [address] [place] [phone]- Allergies, Adverse Reactions, Alerts Substance Reaction Severity [...] 01/09/23 7:22:00 EDT, Route to Pharmacy Electronically, [facility] 77213, 183, cm, 10/08/22 16:18:00 EDT, Height, 71.3, kg, 08/08/21 0:23:00 EDT, Dry Weight Start Date: 01/09/23 Status: Ordered amLODIPine 5 mg oral tablet 1 tablet, By Mouth, Daily, # 28 tablet, 5 Refills, Maintenance, 11/25/22 16:21:00 EDT, [facility] 81252, 183, cm, 10/08/22 16:18:00 EDT, Height, 71.3, kg, 08/08/21 0:23:00 EDT, Dry Weight Start Date: 11/25/22 Status: Ordered atorvastatin 40 mg oral tablet 1 tablet, By Mouth, Daily, # 28 tablet, 2 Refills, Maintenance, 01/09/23 7:23:00 EDT, [facility], 183, cm, 10/08/22 16:18:00 EDT, Height, 71.3, [...] 11/25/22 16:22:00 EDT, Route to Pharmacy Electronically, [facility] 81130, 183, cm, 10/08/22 16:18:00 EDT, Height, 71.3, [...] 06/08/23 14:08:00 EST, Route to Pharmacy Electronically, [facility]/pharmacy [...] 56 tablet, 6 Refills, [facility] STORE 12635, 183, cm, 08/12/21 14:20:00 EDT, Height, 71.3, [...] Maintenance, 04/27/23 13:02:00 EST, [facility] STORE 34225, 183, cm, 03/28/23 11:43:00 EST, Height, 71.3, [...] 1-2 tablet, By Mouth, Every 3 hours, CONTACT WORKER checked. fill 06/15/23, # 84 tablet, 0 Refills, Maintenance, 06/16/23 6:51:00 EST, [facility]/pharmacy #[id number], may partial fill [...] Start Date: 11/30/22 Status: Ordered Potassium Chloride (Uwo-Mumd-Jep 10) 10 mEq oral tablet, extended release See Instructions, TAKE 2 TABLETS BY MOUTH EVERY MORNING AND TAKE 1 TABLET EVERY EVENING, # 84 tablet, 2 Refills, Maintenance, 04/27/23 13:02:00 EST, [facility], 183, cm, 03/28/23 11:43:00 EST, Height, 71.3, kg, 08/08/21 0:23:00 EDT, Dry Weight Start Date: 04/27/23 Status: Ordered sertraline 100 mg oral tablet 1 tablet, By Mouth, Daily, # 28 tablet, 5 Refills, Maintenance, 06/09/22 8:26:00 EST, [facility], 183, cm, 03/16/22 8:31:00 EDT, Height, 71.3, kg, 08/08/21 0:23:00 EDT, Dry Weight Start Date: 06/09/22 Status: Ordered sertraline 100 mg oral tablet See Instructions, TAKE 1 TABLET BY MOUTH EVERY DAY, # 28 tablet, 5 Refills, Maintenance, 11/30/22 15:39:00 EDT, [facility], 183, cm, 10/08/22 16:18:00 EDT, Height, 71.3, kg, 08/08/21 0:23:00 EDT, Dry Weight Start Date: 11/30/22 Status: Ordered spironolactone 25 mg oral tablet 1, tablet, By Mouth, Daily, # 28 tablet, Refills 4, Maintenance, 07/08/22 11:30:00 EST, Route to Pharmacy Electronically, [facility], 183, cm, 03/16/22 8:31:00 EDT, Height, 71.3, kg, 08/08/21 0:23:00 EDT, Dry Weight Start Date: 07/08/22 Status: Ordered spironolactone 25 mg oral tablet See Instructions, TAKE 1 TABLET BY MOUTH EVERY DAY, # 28 tablet, Refills 4, Maintenance, 11/30/22 15:38:00 EDT, Instructions Replace Required Details, Route to Pharmacy Electronically, [facility] STORE 20317, 183, cm, 10/08/22 16:18:00 EDT, Height, 71.3, kg,... Start Date: 11/30/22 Status: Ordered sucralfate 1 gm oral tablet 1, tablet, By Mouth, 3 times a day before meals, AND BEDTIME., # 112 tablet, Refills 5, Maintenance, 02/04/23 16:32:00 EDT, Route to Pharmacy Electronically, [facility] STORE 66428, 183, cm, 10/08/22 16:18:00 EDT, Height, 71.3, [...] Name: Irish Samuel RN Position: [facility] RN Member Role: Primary Care Nurse Name: Mireya Ramsey Position: [facility] RN Supv Member Role: Primary Care Nurse Name: Rhea Betancur RN Position: [facility] SN RN Member Role: Primary Care Nurse Name: Hugo Ayala RN Position: [facility] RN Member Role: Primary Care Nurse Name: Lorna Faust RN Position: [facility] RN Member Role: Primary Care Nurse Name: David Gonzalez MD Position: [facility] Renal MD Member Role: Lifetime Consulting Physician Address: Address: [address] [place] [address] [address] [place] [address]- [place] Name: Hannah Garcia NP Position: [facility] PCO Associate Professional Member Role: PCP Address: Address: [address] [place] [address], [address] [place] [address]- [place] Name: Eduin Arias MD Position: [facility] Renal MD Member Role: Lifetime Consulting Physician Address: Address: [address] [place] [address], [address] [place] [address]- [place] Name: Ana Herrera RN Position: [facility] AMB Nurse Member Role: Primary Care Nurse Name: Carlos Montez RN Position: [facility] Outreach Member Role: Primary Care Nurse Name: Cadence Quach RN Position: [facility] OB RN Member Role: Primary Care Nurse Name: Maggy Tsang RN Position: [facility] RN Member Role: Primary Care Nurse Name: Keyla Keys RN Position: [facility] SN RN Member Role: Primary Care Nurse Name: Марина Guevara RN Position: [facility] RN Member Role: Primary Care Nurse Name: Lyn Helms RN Position: [facility] RN Member Role: Primary Care Nurse Name: Tatum Biswas RN Position: [facility] RN Member Role: Primary Care Nurse Name: Hugo Bateman RN Position: [facility] RN Member Role: Primary Care Nurse Name: Petros Levy RN Position: [facility] RN Member Role: Primary Care Nurse Name: Izabella Braun RN Position: [facility] RN Member Role: Primary Care Nurse Name: Lyndsay King RN Position: [facility] RN Member Role: Primary Care Nurse Name: Hafsa Goyal RN Position: [facility] RN Member Role: Primary Care Nurse Name: Rosalio Jack RN Position: [facility] RN Member Role: Primary Care Nurse Name: Carmela Houser RN Position: [facility] SN RN Member Role: Primary Care Nurse Name: Michael Dickson RN Position: [facility] RN Member Role: Primary Care Nurse Name: Jessica Lema RN Position: [facility] RN Member Role: Primary Care Nurse Name: Phu Flynn MD Position: [facility] Renal MD Member Role: Lifetime Consulting Physician Address: Address: [address] [place] [address] [facility] [address] Name: Yesica Serna RN Position: [facility] OB RN Member Role: Primary Care Nurse Name: Jesusita Lou RN Position: [facility] OB RN Member Role: Primary Care Nurse Name: Husam Elizalde RN Position: [facility] RN Member Role: Primary Care Nurse Name: Marshall Byrd RN Position: [facility] RN Member Role: Primary Care Nurse Care Team Related Persons Name: MELLODUTCH HURTADO Address: [place], [place] Name: ALL AYERS Address: [address] [place], [place] Name: ALL MANZANARES Address: [address] [place], [place] Name: CHRISTEN GRIMALDO Address: [address] [place], [place]
--- OUTSIDE RECORDS SUMMARY | 2023-11-18 12:38 | XMS_ITS | Continuity of Care Document ---
Author Organization 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 [address] [place] [id number]- Allergies, Adverse Reactions, Alerts Substance Reaction Severity [...] [facility]/pharmacy #[id number], 183, cm, 05/12/20 9:35:00... Start Date: 05/15/20 Status: Ordered amLODIPine 5 mg oral tablet 5 mg, 1, tablet, By Mouth, Daily, # 30 tablet, Refills 5, Tot. Refills 5, Maintenance, 04/29/20 13:47:00 EST, Route to Pharmacy Electronically, [facility]/pharmacy #[id number], 183, cm, 02/05/20 12:53:00 EDT, Height Start Date: 04/29/20 Stop Date: 10/26/20 Status: Ordered atorvastatin 40 mg oral tablet See Instructions, TAKE 1 TABLET BY MOUTH EVERY DAY, # 28 tablet, 5 Refills, Soft Stop, 12/27/19 14:47:00 EDT, [facility]/pharmacy #[id number], 183, cm, 11/05/19 9:35:00 EDT, Height, Dry Weight Start Date: 12/27/19 Status: Ordered buPROPion 150 mg/24 hours (XL) oral tablet, extended release 1 tablet = 150 mg, By Mouth, Every 24 hours, # 30 tablet, 5 Refills, Maintenance, 02/18/20 10:40:00EDT, ER Tablet, [facility]/pharmacy #[id number], Bubble pack and delivery, 1 tablet By Mouth Every 24 hours, 183, cm, 02/05/20 12:53:00 EDT, Height, Dry Weight Start Date: 02/18/20 Status: Ordered carvedilol 12.5 mg oral tablet 12.5 mg, 1, tablet, By Mouth, 2 times a day, # 60 tablet, Refills 2, Tot. Refills 2, Soft Stop, 04/12/20 20:34:00 EST, [id number], cm, 02/05/20 12:53:00EDT, Height Start Date: 04/12/20 Status: Ordered clopidogrel 75 mg oral tablet 75 mg, 1, tablet, By Mouth, Daily, # 30 tablet, Refills 5, Tot. Refills 5, Maintenance, 05/15/20 15:55:00 EST, [id number], 183, cm, 05/12/20 9:35:00 EST, Height [...] 11/22/17 13:28:22 EDT, Route to Pharmacy Electronically, [id number], [facility]/pharmacy #[id number] Start Date: 11/22/17 Stop Date: 05/21/18 Status: Ordered Eliquis 5 mg oral tablet 1 tablet = 5 mg, By Mouth, 2 times a day, # 60 tablet, 5 Refills, Maintenance, 02/18/20 14:47:00 EDT, Tablet, [facility]/pharmacy #[id number], 183, cm, 02/05/20 12:53:00 EDT, Height, Dry Weight Start Date: 02/18/20 Status: Ordered furosemide 40 mg oral tablet 40 mg, 1, tablet, By Mouth, 2 times a day, # 60 tablet, Refills 2, Tot. Refills 2, Soft Stop, 05/05/20 14:35:00 EST, Route to Pharmacy Electronically, [facility]/pharmacy #[id number], this replaces previous [...] 05/03/20 17:20:00 EST, Route to Pharmacy Electronically, [facility]/pharmacy #[id number], 183, cm, 02/05/20 12:53:00 EDT, Height Start Date: 05/03/20 Stop Date: 10/30/20 Status: Ordered NIFEdipine 30 mg oral tablet, extended release 30 mg, 1, tablet, By Mouth, Daily, Bubble Pack and Delivery, # 30 tablet, Refills 3, Tot. Refills 3, Maintenance, 03/27/18 8:38:30 EST, Route to Pharmacy Electronically, [id number], [facility]/pharmacy #[id number] Start Date: [...] 60 mg, By Mouth, Every 3 hours, LOBSTER MAN checked, # 224 tablet, 0 Refills, Acute 05/15/21 15:40:00 EST, 06/26/20 16:56:00 EST, [facility]/pharmacy #[id number], may partial fill upon request;, 06/27/20, [...] Refills, Maintenance, 04/15/20 9:13:00 EST, ER Tablet, [facility]/pharmacy #[id number], 183, cm, 02/05/20 12:53:00 EDT, Height Start Date: 04/15/20 Status: Ordered sertraline 100 mg oral tablet 1 tablet = 100 mg, By Mouth, Daily, # 90 tablet, 1 Refills, Maintenance, 02/18/20 14:47:00 EDT, Tablet, [facility]/pharmacy #[id number], Bubble pack and delivery, 183, cm, 02/05/20 12:53:00 EDT, Height Start Date: 02/18/20 Stop Date: 08/16/20 Status: Ordered spironolactone 25 mg oral tablet 25 mg, 1, tablet, By Mouth, Daily, # 30 tablet, Refills 2, Tot. Refills 2, Soft Stop, 04/15/20 9:13:00 EST, [id number], 183, cm, 02/05/20 12:53:00 EDT, Height Start Date: 04/15/20 Stop Date: 07/14/20 Status: Ordered sucralfate 1 gm oral tablet 1 Gm, 1, tablet, By Mouth, 3 times a day before meals and bedtime, # 120 tablet, Refills 2, Tot. Refills 2, Maintenance, 04/29/20 13:47:00 EST, Route to Pharmacy Electronically, [facility]/pharmacy #[id number], 183, cm, 02/05/20 12:53:00 EDT, Height Start Date: 04/29/20 Status: Ordered Vitamin B-12 1000 mcg oral tablet 1,000 mcg, 1, tablet, By Mouth, Daily, # 30 tablet, Refills 2, Tot. Refills 2, Soft Stop, 04/15/20 9:13:00 EST, [id number], 183, cm, 02/05/20 12:53:00 EDT, Height [...] artery disease by Rolando Rubin M.D. at [facility]. 5In the past; states this has resolved Social History Social History Type Response Smoking Status Never smoker entered on: 08/24/16 Sex
--- OUTSIDE RECORDS SUMMARY | 2023-11-18 12:38 | XMS_ITS | Continuity of Care Document ---
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 Role Phone Radha ODONNELL, Hannah Primary Care Physician Encounter [facility] Date(s): 02/28/23 - 03/30/23 [facility] [address] [place] [phone]- Allergies, Adverse Reactions, Alerts Substance Reaction Severity [...] 01/09/23 7:22:00 EDT, Route to Pharmacy Electronically, [id number], 183, cm, 10/08/22 16:18:00 EDT, Height, 71.3, kg, 08/08/21 0:23:00 EDT, Dry Weight Start Date: 01/09/23 Status: Ordered amLODIPine 5 mg oral tablet 1 tablet, By Mouth, Daily, # 28 tablet, 5 Refills, Maintenance, 11/25/22 16:21:00 EDT, [facility], 183, cm, 10/08/22 16:18:00 EDT, Height, 71.3, kg, 08/08/21 0:23:00 EDT, Dry Weight Start Date: 11/25/22 Status: Ordered atorvastatin 40 mg oral tablet 1 tablet, By Mouth, Daily, # 28 tablet, 2 Refills, Maintenance, 01/09/23 7:23:00 EDT, [facility], 183, cm, 10/08/22 16:18:00 EDT, Height, 71.3, kg, 08/08/21 0:23:00 EDT, Dry Weight Start Date: 01/09/23 Status: Ordered buPROPion 150 mg/24 hours (XL) oral tablet, extended release 1 tablet, By Mouth, Daily, # 28 tablet, 5 Refills, Maintenance, 09/03/22 20:57:00 EDT, [facility], 28, TAKE 1 TABLET BY MOUTH EVERY DAY, 183, cm, 03/16/22 8:31:00 EDT, Height, 71.3, kg, 220:23:00 EDT, Dry Weight Start Date: 09/03/22 Status: Ordered carvedilol 12.5 mg oral tablet 1, tablet, By Mouth, 2 times a day, # 56 tablet, Refills 5, Maintenance, 11/25/22 16:22:00 EDT, Route to Pharmacy Electronically, [facility], 183, cm, 10/08/22 16:18:00 EDT, Height, 71.3, [...] EDT, Route to Pharmacy Electronically, [facility], 183, cm, 03/16/22 8:31:00 EDT, Height, 71.3, [...] 6 Refills, Maintenance, 05/14/2216:30:00 EST, [facility], 183, cm, 03/16/22 8:31:00 EDT, Height, 71.3, kg, 08/08/21 0:23:00 EDT, Dry Weight Start Date: 05/14/22 Status: Ordered Eliquis 5 mg oral tablet 1 tablet, By Mouth, 2 times a day, # 56 tablet, 6 Refills, [facility], 183, cm, 08/12/21 14:20:00 EDT, Height, 71.3, kg, 08/08/21 0:23:00 EDT, Dry Weight Start Date: 09/26/21 Status: Ordered Eliquis 5 mg oral tablet See Instructions, TAKE 1 TABLET BY MOUTH TWICE A DAY, # 56 tablet, 6 Refills, Maintenance, 11/30/2314:39:00 EDT, [facility], 183, cm, 10/08/22 16:18:00 EDT, Height, 71.3, kg, 08/08/21 0:23:00 EDT, Dry Weight Start Date: 11/30/22 Status: Ordered furosemide 40 mg oral tablet 1, tablet, By Mouth, 2 times a day, # 56 tablet, Refills 2, Maintenance, 09/30/22 8:51:00 EDT, Route to Pharmacy Electronically, [facility], 183, cm, 03/16/22 8:31:00 EDT, Height, 71.3, [...] tablet, 2 Refills, Maintenance, 11/25/22 16:22:00 EDT, [facility], 183, cm, 10/08/22 16:18:00 EDT, Height, 71.3, kg, 08/08/21 0:23:00 EDT, Dry Weight Start Date: 11/25/22 Status: Ordered isosorbide mononitrate 60 mg oral tablet, extended release 1 tablet, By Mouth, Daily in AM, # 28 tablet, 2 Refills, Maintenance, 11/25/22 16:23:00 EDT, [facility], 183, cm, 10/08/22 16:18:00 EDT, Height, 71.3, kg, 08/08/21 0:23:00 EDT, Dry Weight Start Date: 11/25/22 Status: Ordered Mylanta Maximum Strength oral suspension 5 mL, By Mouth, 4 times a day, PRN for control of stomach acid, # 200 mL, 1 Refills, Maintenance, 08/12/21 13:46:00 EDT, Suspension, [facility]/pharmacy #[id number], Partial fill upon patient request if the [...] mg, By Mouth, Every 3 hours, MANAGER WHOLESALE checked. [email or web address] 03/28/23, # 112 tablet, 0 Refills, Maintenance, 03/28/23 7:01:00 EST, [facility]/pharmacy #4471, 7 days as needs testing performed [...] Start Date: 11/30/22 Status: Ordered Potassium Chloride (Dnz-Dvsn-Qlc 10) 10 mEq oral tablet, extended release See Instructions, TAKE 2 TABLETS BY MOUTH EVERY MORNING AND TAKE 1 TABLET EVERY EVENING, # 84 tablet, 2 Refills, Maintenance, 11/30/22 15:38:00 EDT, [facility], 183, cm, 10/08/22 16:18:00 EDT, Height, 71.3, kg, 08/08/21 0:23:00 EDT, Dry Weight Start Date: 11/30/22 Status: Ordered Potassium Chloride (Wka-[id number]-Hfj 10) 10 mEq oral tablet, extended release See Instructions, TAKE 2 TABLETS BY MOUTH EVERY MORNING AND TAKE 1 TABLET EVERY EVENING, # 84 tablet, 2 Refills, Maintenance, 09/06/22 10:04:00 EDT, [facility], 183, cm, 03/16/22 8:31:00 EDT, Height, 71.3, kg, 08/08/21 0:23:00 EDT, Dry Weight Start Date: 09/06/22 Status: Ordered sertraline 100 mg oral tablet 1 tablet, By Mouth, Daily, # 28 tablet, 5 Refills, Maintenance, 06/09/22 8:26:00 EST, [facility], 183, cm, 03/16/22 8:31:00 EDT, Height, 71.3, kg, 08/08/21 0:23:00 EDT, Dry Weight Start Date: 06/09/22 Status: Ordered sertraline 100 mg oral tablet See Instructions, TAKE 1 TABLET BY MOUTH EVERY DAY, # 28 tablet, 5 Refills, Maintenance, 11/30/22 15:39:00 EDT, [facility], 183, cm, 10/08/22 16:18:00 EDT, Height, 71.3, kg, 08/08/21 0:23:00 EDT, Dry Weight Start Date: 11/30/22 Status: Ordered spironolactone 25 mg oral tablet 1, tablet, By Mouth, Daily, # 28 tablet, Refills 4, Maintenance, 07/08/22 11:30:00 EST, Route to Pharmacy Electronically, [id number], 183, cm, 03/16/22 8:31:00 EDT, Height, 71.3, kg, 08/08/21 0:23:00 EDT, Dry Weight Start Date: 07/08/22 Status: Ordered spironolactone 25 mg oral tablet See Instructions, TAKE 1 TABLET BY MOUTH EVERY DAY, # 28 tablet, Refills 4, Maintenance, 11/30/22 15:38:00 EDT, Instructions Replace Required Details, Route to Pharmacy Electronically, [facility], 183, cm, 10/08/22 16:18:00 EDT, Height, 71.3, kg,... Start Date: 11/30/22 Status: Ordered sucralfate 1 gm oral tablet 1, tablet, By Mouth, 3 times a day before meals, AND BEDTIME., # 112 tablet, Refills 5, Maintenance, 02/04/23 16:32:00 EDT, Route to Pharmacy Electronically, [facility], 183, cm, 10/08/22 16:18:00 EDT, Height, 71.3, kg, 08/08/21 0:23:00 EDT, Dry... Start Date: 02/04/23 Status: Ordered Vitamin B-12 1000 mcg oral tablet 1, tablet, By Mouth, Daily, # 28 tablet, Refills 0, Maintenance, 02/04/23 17:00:00 EDT, Route to Pharmacy Electronically, [facility], 183, cm, 10/08/22 16:18:00 EDT, Height, 71.3, [...] M.D. at [facility]. 4In the past; states this has resolved Social History Social History Type Response Smoking Status Never smoker entered on: 08/24/16 Sex Patient Care team information Care Team Personnel Name: Irish Samuel RN Position: [facility] RN Member Role: Primary Care Nurse Name: Mireya Ramsey Position: [facility] RN Supv Member Role: Primary Care Nurse Name: Rhea Betancur RN Position: [facility] SN RN Member Role: Primary Care Nurse Name: Hugo Ayala RN Position: [facility] RN Member Role: Primary Care Nurse Name: Lorna Faust RN Position: [facility] RN Member Role: Primary Care Nurse Name: David Gonzalez MD Position: [facility] Renal MD Member Role: Lifetime Consulting Physician Address: Address: [address] [place] [address] [address] [facility] [place] [address]- [place] Name: Hannah Garcia NP Position: [facility] PCO Associate Professional Member Role: PCP Address: Address: [address] [place] [address], [address] [place] [address]- [place] Name: Eduin Arias MD Position: [facility] Renal MD Member Role: Lifetime Consulting Physician Address: Address: [address] [place] [address], [address] [place] [address]- [place] Name: Ana Herrera RN Position: [facility] RN Member Role: Primary Care Nurse Name: Cadence Quach RN Position: [facility] OB RN Member Role: Primary Care Nurse Name: Maggy Tsang RN Position: [facility] RN Member Role: Primary Care Nurse Name: Keyla Keys RN Position: [facility] SN RN Member Role: Primary Care Nurse Name: Марина Guevara RN Position: [facility] RN Member Role: Primary Care Nurse Name: Lyn Helms RN Position: [facility] RN Member Role: Primary Care Nurse Name: Tatum Biswas RN Position: [facility] RN Member Role: Primary Care Nurse Name: Hugo Bateman RN Position: [facility] RN Member Role: Primary Care Nurse Name: Petros Levy RN Position: [facility] RN Member Role: Primary Care Nurse Name: Izabella Braun RN Position: [facility] RN Member Role: Primary Care Nurse Name: Lyndsay King RN Position: [facility] RN Member Role: Primary Care Nurse Name: Felicia Kerr RN Position: [facility] RN Member Role: Primary Care Nurse Name: Hafsa Goyal RN Position: [facility] RN Member Role: Primary Care Nurse Name: Rosalio Jack RN Position: [facility] RN Member Role: Primary Care Nurse Name: Carmela Houser RN Position: [facility] SN RN Member Role: Primary Care Nurse Name: Michael Dickson RN Position: [facility] RN Member Role: Primary Care Nurse Name: Jessica Lema RN Position: [facility] RN Member Role: Primary Care Nurse Name: Phu Flynn MD Position: [facility] Renal MD Member Role: Lifetime Consulting Physician Address: Address: [address] [place] [address] [facility] [address] Name: Yesica Serna RN Position: [facility] OB RN Member Role: Primary Care Nurse Name: Jesusita Lou RN Position: [facility] OB RN Member Role: Primary Care Nurse Name: Husam Elizalde RN Position: [facility] RN Member Role: Primary Care Nurse Care Team Related Persons Name: DUTCH MAR Address: [place] [address] Name: ALL AYERS Address: [address] [place] [address] Name: ALL MANZANARES Address: [address] [place] [address] Name: CHRISTEN GRIMALDO Address: [address] [place] [address]
--- OUTSIDE RECORDS SUMMARY | 2023-11-18 12:38 | XMS_ITS | Continuity of Care Document ---
Author Organization [facility] Adult Address [address] [place] [address]- Care Team Providers Care Equipment Tech Name Role Phone Radha ODONNELL, Hannah Primary Care Physician Encounter [facility] Date(s): 07/27/22 - 08/26/22 [facility] [address] [place] [phone]- Allergies, Adverse Reactions, Alerts Substance Reaction Severity [...] 07/08/22 11:30:00 EST, Route to Pharmacy Electronically, [id number], 183, cm, 03/16/22 8:31:00 EDT, Height, 71.3, kg, 08/08/21 0:23:00 EDT, Dry Weight Start Date: 07/08/22 Status: Ordered amLODIPine 5 mg oral tablet 1 tablet, By Mouth, Daily, # 28 tablet, 4 Refills, Maintenance, 04/13/22 11:43:00 EST, [facility], 183, cm, 03/16/22 8:31:00 EDT, Height, 71.3, kg, 08/08/21 0:23:00 EDT, Dry Weight Start Date: 04/13/22 Status: Ordered atorvastatin 40 mg oral tablet 1 tablet, By Mouth, Daily, # 28 tablet, 5 Refills, Maintenance, 07/08/22 11:30:00 EST, [facility] [id number], 183, cm, 03/16/22 8:31:00 EDT, Height, 71.3, kg, 08/08/21 0:23:00 EDT, Dry Weight Start Date: 07/08/22 Status: Ordered buPROPion 150 mg/24 hours (XL) oral tablet, extended release See Instructions, TAKE 1 TABLET BY MOUTH EVERY 24 HOURS, # 28 tablet, 5 Refills, 03/18/22 11:05:00 EDT, [facility]/pharmacy #[id number], 28, TAKE 1 TABLET BY MOUTH EVERY 24 HOURS, 183, cm, 03/16/22 8:31:00 EDT, Height, 71.3, kg, 08/08/21 0:23:00 EDT, Dry Weight Start Date: 03/18/22 Status: Ordered buPROPion 150 mg/24 hours (XL) oral tablet, extended release 1 tablet, By Mouth, Every 24 hours, # 28 tablet, 2 Refills, [facility] [id number], 28, TAKE 1 TABLET BY MOUTH EVERY 24 HOURS, 183, cm, 08/12/21 14:20:00 EDT, Height, 71.3, kg, 08/08/21 0:23:00 EDT, Dry Weight Start Date: 09/25/21 Status: Ordered carvedilol 12.5 mg oral tablet 1, tablet, By Mouth, 2 times a day, # 56 tablet, Refills 5, Route to Pharmacy Electronically, [facility] [id number], 183, cm, 05/04/21 3:09:00 EST, Height, 81.7, kg, 04/16/21 3:06:00 EST, Dry Weight Start Date: 07/07/21 Status: Ordered carvedilol 12.5 mg oral tablet See Instructions, TAKE 1 TABLET BY MOUTH TWICE A DAY, # 56 tablet, Refills 5, Tot. Refills 5, 03/18/22 11:05:00 EDT, Instructions Replace Required Details, Route to Pharmacy Electronically, [facility]/pharmacy #[id number], 183, cm, 03/16/22 8:31:00 EDT, Height, 71... Start Date: 03/18/22 Status: Ordered clopidogrel 75 mg oral tablet 1, tablet, By Mouth, Daily, # 28 tablet, Refills 5, Route to Pharmacy Electronically, [facility], 183, cm, 05/04/21 3:09:00 EST, Height, 81.7, kg, 04/16/21 3:06:00 EST, Dry Weight Start Date: 07/02/21 Status: Ordered clopidogrel 75 mg oral tablet 75 mg, 1, tablet, By Mouth, Daily, for 30 days, # 30 tablet, Refills 5, Tot. Refills 5, Physician Stop 09/14/22 13:18:00 EDT, 03/18/22 13:18:00 EDT, Route to Pharmacy Electronically, [facility]/pharmacy #[id number], 183, cm, 03/16/22 8:31:00 EDT, Height, 71.3, kg,... Start Date: 03/18/22 Stop Date: 09/14/22 Status: Ordered Eliquis 5 mg oral tablet See Instructions, TAKE 1 TABLET BY MOUTH TWICE A DAY, # 56 tablet, 6 Refills, Maintenance, 05/14/2216:30:00 EST, [facility], 183, cm, 03/16/22 8:31:00 EDT, Height, 71.3, kg, 08/08/21 0:23:00 EDT, Dry Weight Start Date: 05/14/22 Status: Ordered Eliquis 5 mg oral tablet 1 tablet, By Mouth, 2 times a day, # 56 tablet, 6 Refills, [facility], 183, cm, 08/12/21 14:20:00 EDT, Height, 71.3, kg, 08/08/21 0:23:00 EDT, Dry Weight Start Date: 09/26/21 Status: Ordered furosemide 40 mg oral tablet 1, tablet, By Mouth, 2 times a day, # 56 tablet, Refills 2, Maintenance, 07/08/22 11:30:00 EST, Route to Pharmacy Electronically, [id number], 183, cm, 03/16/22 8:31:00 EDT, Height, 71.3, kg, 08/08/21 0:23:00 EDT, Dry Weight Start Date: 07/08/22 Status: Ordered hydrALAZINE 50 mg oral tablet 1 tablet, By Mouth, 3 times a day, # 84 tablet, 1 Refills, Maintenance, 08/03/22 8:30:00 EDT, [facility], 183, cm, 03/16/22 8:31:00 EDT, Height, 71.3, kg, 08/08/21 0:23:00 EDT, Dry Weight Start Date: 08/03/22 Status: Ordered isosorbide mononitrate 60 mg oral tablet, extended release 1 tablet, By Mouth, Daily in AM, # 28 tablet, 4 Refills, Maintenance, 04/13/22 11:43:00 EST, [facility], 183, cm, 03/16/22 8:31:00 EDT, Height, 71.3, kg, 08/08/21 0:23:00 EDT, Dry Weight Start Date: 04/13/22 Status: Ordered Mylanta Maximum Strength oral suspension 5 mL, By Mouth, 4 times a day, PRN for control of stomach acid, # 200 mL, 1 Refills, Maintenance, 08/12/21 13:46:00 EDT, Suspension, [facility]/pharmacy #[id number], Partial fill upon patient request if the prescription is for a schedule II opioid drug., 5 mL By M... Start Date: 08/12/21 Status: Ordered nitroglycerin 0.4 mg sublingual tablet 1 tablet = 0.4 mg, Sublingual, Every 5 minutes, PRN Chest Pain, # 25 tablet, 3 Refills, Maintenance, 08/24/19 15:40:00 EDT, [facility]/pharmacy #[id number], 183, cm, 05/25/19 15:06:00 EST, Height, 88.3, kg, 08/31/17 3:30:00 EDT, Dry Weight Start Date: 08/24/19 Stop Date: 12/22/19 Status: Ordered oxyCODONE 30 mg oral tablet 2 tablet = 60 mg, By Mouth, Every 3 hours, SENIOR FACILITIES MANAGER checked. fill on 08/16/22, # 224 tablet, [...] Start Date: 07/08/22 Status: Ordered Potassium Chloride (Mju-Wtsg-Hte 10) 10 mEq oral tablet, extended release See Instructions, TAKE 2 TABLETS BY MOUTH EVERY MORNING AND TAKE 1 TABLET EVERY EVENING, # 84 tablet, 2 Refills, Maintenance, 06/09/22 9:19:00 EST, [facility], 183, cm, 03/16/22 8:31:00 EDT, Height, 71.3, kg, 08/08/21 0:23:00 EDT, Dry Weight Start Date: 06/09/22 Status: Ordered sertraline 100 mg oral tablet 1 tablet, By Mouth, Daily, # 28 tablet, 5 Refills, Maintenance, 06/09/22 8:26:00 EST, [facility], 183, cm, 03/16/22 8:31:00 EDT, Height, 71.3, kg, 08/08/21 0:23:00 EDT, Dry Weight Start Date: 06/09/22 Status: Ordered spironolactone 25 mg oral tablet 1, tablet, By Mouth, Daily, # 28 tablet, Refills 4, Maintenance, 07/08/22 11:30:00 EST, Route to Pharmacy Electronically, [id number], 183, cm, 03/16/22 8:31:00 EDT, Height, 71.3, kg, 08/08/21 0:23:00 EDT, Dry Weight Start Date: 07/08/22 Status: Ordered sucralfate 1 gm oral tablet 1, tablet, By Mouth, 3 times a day before meals, AND BEDTIME., # 112 tablet, Refills 2, Maintenance, 08/03/22 8:30:00 EDT, Route to Pharmacy Electronically, [id number], 183, cm, 03/16/22 8:31:00EDT, Height, 71.3, kg, 08/08/21 0:23:00 EDT, Dry We... Start Date: 08/03/22 Status: Ordered Vitamin B-12 1000 mcg oral tablet See Instructions, TAKE 1 TABLET BY MOUTH EVERY DAY, # 28 tablet, Refills 5, Maintenance, 05/14/22 16:30:00 EST, Instructions Replace Required Details, Route to Pharmacy Electronically, [id number], 183, cm, 03/16/22 8:31:00 EDT, Height, 71.3, kg,... Start Date: 05/14/22 Status: Ordered Vitamin B-12 1000 mcg oral tablet 1, tablet, By Mouth, Daily, # 28 tablet, Refills 5, Route to Pharmacy Electronically, [facility], 183, cm, 08/12/21 14:20:00 EDT, Height, 71.3, [...] artery disease by Rolando Rubin M.D. at [facility]. 4In the past; states this has resolved Social History Social History Type Response Smoking Status Never smoker entered on: 08/24/16 Sex Patient Care team information Care Team Personnel Name: Irish Samuel RN Position: [facility] RN Member Role: Primary Care Nurse Name: Mireya Ramsey Position: [facility] RN Supv Member Role: Primary Care Nurse Name: Rhea Betancur RN Position: [facility] SN RN Member Role: Primary Care Nurse Name: Hugo Ayala RN Position: [facility] RN Member Role: Primary Care Nurse Name: Lorna Faust RN Position: [facility] RN Member Role: Primary Care Nurse Name: Wilner Feliciano RN Position: [facility] RN Supv Member Role: Primary Care Nurse Name: David Gonzalez MD Position: [facility] Renal MD Member Role: Lifetime Consulting Physician Address: Address: [address] [place] [address], [address] [facility] [place] [address]- [place] Name: Hannah Garcia NP Position: [facility] PCO Associate Professional Member Role: PCP Address: Address: [address] [place] [address], [address] [place] [address]- [place] Name: Eduin Arias MD Position: [facility] Physician (General Medicine) Member Role: Lifetime Consulting Physician Address: Address: [address] [place] [address], [address] [place] [address]- [place] Name: Ana Herrera RN Position: [facility] RN Member Role: Primary Care Nurse Name: Carlos Montez RN Position: [facility] RN Member Role: Primary Care Nurse Name: Cadence Quach RN Position: [facility] OB RN Member Role: Primary Care Nurse Name: Maggy Tsang RN Position: [facility] RN Member Role: Primary Care Nurse Name: Keyla Keys RN Position: [facility] SN RN Member Role: Primary Care Nurse Name: Марина Guevara RN Position: [facility] RN Member Role: Primary Care Nurse Name: Lyn Helms RN Position: [facility] RN Member Role: Primary Care Nurse Name: Tatum Biswas RN Position: [facility] RN Member Role: Primary Care Nurse Name: Hugo Bateman RN Position: [facility] RN Member Role: Primary Care Nurse Name: Petros Levy RN Position: [facility] RN Member Role: Primary Care Nurse Name: Charly Burns RN Position: [facility] RN Member Role: Primary Care Nurse Name: Izabella Braun RN Position: [facility] RN Member Role: Primary Care Nurse Name: Lyndsay King RN Position: [facility] RN Member Role: Primary Care Nurse Name: Felicia Kerr RN Position: [facility] RN Member Role: Primary Care Nurse Name: Hafsa Goyal RN Position: [facility] RN Member Role: Primary Care Nurse Name: Rosalio Jack RN Position: [facility] RN Member Role: Primary Care Nurse Name: Geovanna Hill RN Position: [facility] RN Member Role: Primary Care Nurse Name: Carmela Houser RN Position: [facility] SN RN Member Role: Primary Care Nurse Name: Michael Dickson RN Position: [facility] RN Member Role: Primary Care Nurse Name: Jessica Lema RN Position: [facility] RN Member Role: Primary Care Nurse Name: Phu Flynn MD Position: [facility] Renal MD Member Role: Lifetime Consulting Physician Address: Address: [address] [place] [address] [facility] [address] Name: Yesica Serna RN Position: [facility] OB RN Member Role: Primary Care Nurse Name: Jesusita Lou RN Position: [facility] OB RN Member Role: Primary Care Nurse Name: Karen Quach RN Position: [facility] PCO w/OE and EZ Script Member Role: Primary Care Nurse Name: Marshall Byrd RN Position: [facility] RN Member Role: Primary Care Nurse Care Team Related Persons Name: DUTCH MAR Address: [place], [place] Name: ALL AYERS Address: home [address] [place], [place] Name: ALL MANZANARES Address: home [address] [place], [place] Name: CHRISTEN GRIMALDO Address: home [address] [place] [address]
--- OUTSIDE RECORDS SUMMARY | 2023-11-18 12:38 | XMS_ITS | Continuity of Care Document ---
Author Organization [facility] Adult Address [address] [place] [id number]- Care Team Providers Care Linen Supervisor Name Role Phone Radha ODONNELL, Hannah Primary Care Physician Encounter [facility] Date(s): 05/24/23 - 06/23/23 [facility] [address] [place] [phone]- Allergies, Adverse Reactions, Alerts Substance Reaction Severity [...] 01/09/23 7:22:00 EDT, Route to Pharmacy Electronically, [id number], 183, cm, 10/08/22 16:18:00 EDT, Height, 71.3, kg, 08/08/21 0:23:00 EDT, Dry Weight Start Date: 01/09/23 Status: Ordered amLODIPine 5 mg oral tablet 1 tablet, By Mouth, Daily, # 28 tablet, 5 Refills, Maintenance, 11/25/22 16:21:00 EDT, [facility], 183, cm, 10/08/22 16:18:00 EDT, Height, 71.3, kg, 08/08/21 0:23:00 EDT, Dry Weight Start Date: 11/25/22 Status: Ordered atorvastatin 40 mg oral tablet 1 tablet, By Mouth, Daily, # 28 tablet, 2 Refills, Maintenance, 01/09/23 7:23:00 EDT, [facility], 183, cm, 10/08/22 16:18:00 EDT, Height, 71.3, [...] 5 Refills, Maintenance, 04/21/23 18:36:00 EST, [facility]/pharmacy#[id number], 1 tablet By Mouth Daily,x28 days, 183, cm, 03/28/23 11:43:00 EST, Height, 71.3, kg, :23:00 EDT, Dry Weight Start Date: 04/21/23 Stop Date: 10/06/23 Status: Ordered carvedilol 12.5 mg oral tablet 1, tablet, By Mouth, 2 times a day, # 56 tablet, Refills 5, Maintenance, 11/25/22 16:22:00 EDT, Route to Pharmacy Electronically, [facility], 183, cm, 10/08/22 16:18:00 EDT, Height, 71.3, kg, 08/08/21 0:23:00 EDT, Dry Weight Start Date: 11/25/22 Status: Ordered cholecalciferol 50,000 intl units oral capsule 1 capsule = 50,000 International_Units, By Mouth, Every week, # 13 capsule, 3 Refills, Maintenance,03/19/23 15:28:00 EDT, Capsule, [facility]/pharmacy #[id number], Partial fill upon patient request if the prescription is for a schedule II opioid drug., 183, cm, 0... Start Date: 03/19/23 Stop Date: 03/13/24 Status: Ordered cholecalciferol 50,000 intl units oral capsule 1 capsule = 50,000 International_Units, By Mouth, Every 7 days, # 13 capsule, 3 Refills, Maintenance, 03/20/23 8:29:00 EST, Capsule, [facility]/pharmacy #[id number], Partial fill upon patient request, 183, cm, 10/08/22 16:18:00 EDT, Height, 71.3, kg, 08/08/21 0:23... Start Date: 03/20/23 Stop Date: 03/14/24 Status: Ordered clopidogrel 75 mg oral tablet 1, tablet, By Mouth, Daily, # 28 tablet, Refills 5, Tot. Refills 5, Maintenance, 06/08/23 14:08:00 EST, Route to Pharmacy Electronically, [facility]/pharmacy #[id number], 183, cm, 05/10/23 11:59:00 EST, [...] day, # 56 tablet, 6 Refills, [facility] 97516, 183, cm, 08/12/21 14:20:00 EDT, Height, 71.3, kg, 08/08/21 0:23:00 EDT, Dry Weight Start Date: 09/26/21 Status: Ordered Eliquis 5 mg oral tablet See Instructions, TAKE 1 TABLET BY MOUTH TWICE A DAY, # 56 tablet, 6 Refills, Maintenance, 06/07/2409:23:00 EST, [facility]/pharmacy #[id number], 183, cm, 05/10/23 11:59:00 EST, Height, 71.3, kg, 08/08/21 0:23:00 EDT, Dry Weight Start Date: 06/07/23 Status: Ordered furosemide 40 mg oral tablet 1, tablet, By Mouth, 2 times a day, # 56 tablet, Refills 2, Tot. Refills 2, Maintenance, 04/21/23 18:37:00 EST, Route to Pharmacy Electronically, [facility]/pharmacy #[id number], 183, cm, 03/28/23 11:43:00 EST, [...] 2 Refills, Maintenance, 04/27/23 13:02:00 EST, [facility] ST[facility] [id number], 183, cm, 03/28/23 11:43:00 EST, Height, 71.3, kg, 08/08/21 0:23:00 EDT, Dry Weight Start Date: 04/27/23 Status: Ordered isosorbide mononitrate 60 mg oral tablet, extended release 1 tablet, By Mouth, Daily in AM, # 28 tablet, 5 Refills, Maintenance, 04/21/23 18:37:00 EST, [facility]/pharmacy #[id number], 183, cm, 03/28/23 11:43:00 EST, Height, 71.3, kg, 08/08/21 0:23:00 EDT, Dry Weight Start Date: 04/21/23 Stop Date: 10/06/23 Status: Ordered Mylanta Maximum Strength oral suspension 5 mL, By Mouth, 4 times a day, PRN for control of stomach acid, # 200 mL, 1 Refills, Maintenance, 08/12/21 13:46:00 EDT, Suspension, [facility]/pharmacy #[id number], Partial fill upon patient request if the prescription is for a schedule II opioid drug., 5 mL By M... Start Date: 08/12/21 Status: Ordered Narcan 4 mg/0.1 mL nasal spray = 4 mg, Nares, Both, Once, may repeat every 2 to 3 minutes until patient responds, # 1 each, 0 Refills, Soft Stop, 05/14/23 10:41:00 EST, [facility]/pharmacy #[id number], Partial fill upon patient request if the prescription is for a schedule II opioid drug., 183,... Start Date: 05/14/23 Status: Ordered nitroglycerin 0.4 mg sublingual tablet 1 tablet = 0.4 mg, Sublingual, Every 5 minutes, PRN Chest Pain, # 25 tablet, 3 Refills, Maintenance, 08/24/19 15:40:00 EDT, [facility]/pharmacy #[id number], 183, cm, 05/25/19 15:06:00 EST, Height, 88.3, kg, 08/31/17 3:30:00 EDT, Dry Weight Start Date: 08/24/19 Stop Date: 12/22/19 Status: Ordered oxyCODONE 30 mg oral tablet 1-2 tablet, By Mouth, Every 3 hours, # 84 tablet, 0 Refills, Maintenance, 06/22/23 13:41:00 EST, [facility]/pharmacy #[id number], may partial fill upon request;, [...] Start Date: 11/30/22 Status: Ordered Potassium Chloride (Xwy-Jxoy-Sst 10) 10 mEq oral tablet, extended release See Instructions, TAKE 2 TABLETS BY MOUTH EVERY MORNING AND TAKE 1 TABLET EVERY EVENING, # 84 tablet, 2 Refills, Maintenance, 04/27/23 13:02:00 EST, [facility], 183, cm, 03/28/23 11:43:00 EST, Height, 71.3, kg, 08/08/21 0:23:00 EDT, Dry Weight Start Date: 04/27/23 Status: Ordered sertraline 100 mg oral tablet 1 tablet, By Mouth, Daily, # 28 tablet, 5 Refills, Maintenance, 06/09/22 8:26:00 EST, [facility], 183, cm, 03/16/22 8:31:00 EDT, Height, 71.3, kg, 08/08/21 0:23:00 EDT, Dry Weight Start Date: 06/09/22 Status: Ordered sertraline 100 mg oral tablet See Instructions, TAKE 1 TABLET BY MOUTH EVERY DAY, # 28 tablet, 5 Refills, Maintenance, 11/30/22 15:39:00 EDT, [facility], 183, cm, 10/08/22 16:18:00 EDT, Height, 71.3, kg, 08/08/21 0:23:00 EDT, Dry Weight Start Date: 11/30/22 Status: Ordered spironolactone 25 mg oral tablet 1, tablet, By Mouth, Daily, # 28 tablet, Refills 4, Maintenance, 07/08/22 11:30:00 EST, Route to Pharmacy Electronically, [id number], 183, cm, 03/16/22 8:31:00 EDT, Height, 71.3, kg, 08/08/21 0:23:00 EDT, Dry Weight Start Date: 07/08/22 Status: Ordered spironolactone 25 mg oral tablet See Instructions, TAKE 1 TABLET BY MOUTH EVERY DAY, # 28 tablet, Refills 4, Maintenance, 11/30/22 15:38:00 EDT, Instructions Replace Required Details, Route to Pharmacy Electronically, [facility], 183, cm, 10/08/22 16:18:00 EDT, Height, 71.3, kg,... Start Date: 11/30/22 Status: Ordered sucralfate 1 gm oral tablet 1, tablet, By Mouth, 3 times a day before meals, AND BEDTIME., # 112 tablet, Refills 5, Maintenance, 02/04/23 16:32:00 EDT, Route to Pharmacy Electronically, [facility] [id number], 183, cm, 10/08/22 16:18:00 EDT, Height, 71.3, kg, 08/08/21 0:23:00 EDT, Dry... Start Date: 02/04/23 Status: Ordered Vitamin B-12 1000 mcg oral tablet 1, tablet, By Mouth, Daily, # 28 tablet, Refills 11, Tot. Refills 11, Maintenance, 04/21/23 18:37:00 EST, Route to Pharmacy Electronically, [facility]/pharmacy #[id number], 183, cm, 03/28/23 11:43:00 EST, [...] artery disease by Rolando Rubin M.D. at [facility]. 4In the past; states this has resolved Social History Social History Type Response Smoking Status Never smoker entered on: 08/24/16 Sex Patient Care team information Care Team Personnel Name: Irish Samuel RN Position: [facility] RN Member Role: Primary Care Nurse Name: Mireya Ramsey Position: [facility] RN Supv Member Role: Primary Care Nurse Name: Rhea Betancur RN Position: [facility] SN RN Member Role: Primary Care Nurse Name: Hugo Ayala RN Position: [facility] RN Member Role: Primary Care Nurse Name: Lorna Faust RN Position: [facility] RN Member Role: Primary Care Nurse Name: David Gonzalez MD Position: [facility] Renal MD Member Role: Lifetime Consulting Physician Address: Address: [address] [place] [address] [address] [facility] [address]- [place] Name: Hannah Garcia NP Position: [facility] PCO Associate Professional Member Role: PCP Address: Address: [address] [place] [address], [address] [place] [address]- Name: Eduin Arias MD Position: [facility] Renal MD Member Role: Lifetime Consulting Physician Address: Address: [address] [place] [address], [address] [place] [address]- [place] Name: Ana Herrera RN Position: [facility] AMB Nurse Member Role: Primary Care Nurse Name: Carlos Montez RN Position: [facility] Outreach Member Role: Primary Care Nurse Name: Cadence Quach RN Position: [facility] OB RN Member Role: Primary Care Nurse Name: Maggy Tsang RN Position: [facility] RN Member Role: Primary Care Nurse Name: Keyla Keys RN Position: [facility] SN RN Member Role: Primary Care Nurse Name: Марина Guevara RN Position: [facility] SN RN Member Role: Primary Care Nurse Name: Lyn Helms RN Position: [facility] RN Member Role: Primary Care Nurse Name: Tatum Biswas RN Position: [facility] RN Member Role: Primary Care Nurse Name: Hugo Bateman RN Position: [facility] RN Member Role: Primary Care Nurse Name: Petros Levy RN Position: [facility] RN Member Role: Primary Care Nurse Name: Izabella Braun RN Position: [facility] RN Member Role: Primary Care Nurse Name: Lyndsay King RN Position: [facility] RN Member Role: Primary Care Nurse Name: Hafsa Goyal RN Position: [facility] RN Member Role: Primary Care Nurse Name: Rosalio Jack RN Position: [facility] RN Member Role: Primary Care Nurse Name: Carmela Huoser RN Position: [facility] SN RN Member Role: Primary Care Nurse Name: Michael Dickson RN Position: [facility] RN Member Role: Primary Care Nurse Name: Jessica Lema RN Position: [facility] RN Member Role: Primary Care Nurse Name: Phu lFynn MD Position: [facility] Renal MD Member Role: Lifetime Consulting Physician Address: Address: [address] [place] [address] [facility] [address] Name: Yesica Serna RN Position: [facility] OB RN Member Role: Primary Care Nurse Name: Jesusita Lou RN Position: [facility] OB RN Member Role: Primary Care Nurse Name: Husam Elizalde RN Position: [facility] RN Member Role: Primary Care Nurse Name: Marshall Byrd RN Position: [facility] RN Member Role: Primary Care Nurse Care Team Related Persons Name: MELLODUTCH HURTADO Address: [place], [place] Name: ALL AYERS Address: [address] [place], [place] Name: ALL MANZANARES Address: [address] [place], [place] Name: CHRISTEN GRIMALDO Address: [address] [place], [place]
--- OUTSIDE RECORDS SUMMARY | 2023-11-18 12:38 | XMS_ITS | Continuity of Care Document ---
Author Organization [facility] Adult Address [address] [place] [address]- Care Team Providers Care Flight Agent Name Role Phone Radha ODONNELL, Hannah Primary Care Physician Encounter [facility] Date(s): 06/30/22 - 08/04/[address] [facility] Adult [address] [place] [id number]- Attending Physician: Not on Staff, Attending MD [...] 07/08/22 11:30:00 EST, Route to Pharmacy Electronically, [id number], 183, cm, 03/16/22 8:31:00 EDT, Height, 71.3, kg, 08/08/21 0:23:00 EDT, Dry Weight Start Date: 07/08/22 Status: Ordered amLODIPine 5 mg oral tablet 1 tablet, By Mouth, Daily, # 28 tablet, 4 Refills, Maintenance, 04/13/22 11:43:00 EST, [facility], 183, cm, 03/16/22 8:31:00 EDT, Height, 71.3, kg, 08/08/21 0:23:00 EDT, Dry Weight Start Date: 04/13/22 Status: Ordered atorvastatin 40 mg oral tablet 1 tablet, By Mouth, Daily, # 28 tablet, 5 Refills, Maintenance, 07/08/22 11:30:00 EST, [facility] 33686, 183, cm, 03/16/22 8:31:00 EDT, Height, 71.3, kg, 08/08/21 0:23:00 EDT, Dry Weight Start Date: 07/08/22 Status: Ordered buPROPion 150 mg/24 hours (XL) oral tablet, extended release See Instructions, TAKE 1 TABLET BY MOUTH EVERY 24 HOURS, # 28 tablet, 5 Refills, 03/18/22 11:05:00 EDT, [facility]/pharmacy #[id number], 28, TAKE 1 TABLET BY MOUTH EVERY 24 HOURS, 183, cm, 03/16/22 8:31:00 EDT, Height, 71.3, kg, 08/08/21 0:23:00 EDT, Dry Weight Start Date: 03/18/22 Status: Ordered buPROPion 150 mg/24 hours (XL) oral tablet, extended release 1 tablet, By Mouth, Every 24 hours, # 28 tablet, 2 Refills, [facility] 97772, 28, TAKE 1 TABLET BY MOUTH EVERY 24 HOURS, 183, cm, 08/12/21 14:20:00 EDT, Height, 71.3, kg, 08/08/21 0:23:00 EDT, Dry Weight Start Date: 09/25/21 Status: Ordered carvedilol 12.5 mg oral tablet 1, tablet, By Mouth, 2 times a day, # 56 tablet, Refills 5, Route to Pharmacy Electronically, [facility] 87712, 183, cm, 05/04/21 3:09:00 EST, Height, 81.7, kg, 04/16/21 3:06:00 EST, Dry Weight Start Date: 07/07/21 Status: Ordered carvedilol 12.5 mg oral tablet See Instructions, TAKE 1 TABLET BY MOUTH TWICE A DAY, # 56 tablet, Refills 5, Tot. Refills 5, 03/18/22 11:05:00 EDT, Instructions Replace Required Details, Route to Pharmacy Electronically, [facility]/pharmacy #[id number], 183, cm, 03/16/22 8:31:00 EDT, Height, 71... Start Date: 03/18/22 Status: Ordered clopidogrel 75 mg oral tablet 1, tablet, By Mouth, Daily, # 28 tablet, Refills 5, Route to Pharmacy Electronically, [facility], 183, cm, 05/04/21 3:09:00 EST, Height, 81.7, kg, 04/16/21 3:06:00 EST, Dry Weight Start Date: 07/02/21 Status: Ordered clopidogrel 75 mg oral tablet 75 mg, 1, tablet, By Mouth, Daily, for 30 days, # 30 tablet, Refills 5, Tot. Refills 5, Physician Stop 09/14/22 13:18:00 EDT, 03/18/22 13:18:00 EDT, Route to Pharmacy Electronically, [facility]/pharmacy #[id number], 183, cm, 03/16/22 8:31:00 EDT, Height, 71.3, kg,... Start Date: 03/18/22 Stop Date: 09/14/22 Status: Ordered Eliquis 5 mg oral tablet See Instructions, TAKE 1 TABLET BY MOUTH TWICE A DAY, # 56 tablet, 6 Refills, Maintenance, 05/14/2216:30:00 EST, [facility], 183, cm, 03/16/22 8:31:00 EDT, Height, 71.3, kg, 08/08/21 0:23:00 EDT, Dry Weight Start Date: 05/14/22 Status: Ordered Eliquis 5 mg oral tablet 1 tablet, By Mouth, 2 times a day, # 56 tablet, 6 Refills, [facility] 50273, 183, cm, 08/12/21 14:20:00 EDT, Height, 71.3, kg, 08/08/21 0:23:00 EDT, Dry Weight Start Date: 09/26/21 Status: Ordered furosemide 40 mg oral tablet 1, tablet, By Mouth, 2 times a day, # 56 tablet, Refills 2, Maintenance, 07/08/22 11:30:00 EST, Route to Pharmacy Electronically, [facility], 183, cm, 03/16/22 8:31:00 EDT, Height, 71.3, kg, 08/08/21 0:23:00 EDT, Dry Weight Start Date: 07/08/22 Status: Ordered hydrALAZINE 50 mg oral tablet 1 tablet, By Mouth, 3 times a day, # 84 tablet, 1 Refills, Maintenance, 08/03/22 8:30:00 EDT, [facility], 183, cm, 03/16/22 8:31:00 EDT, Height, 71.3, kg, 08/08/21 0:23:00 EDT, Dry Weight Start Date: 08/03/22 Status: Ordered isosorbide mononitrate 60 mg oral tablet, extended release 1 tablet, By Mouth, Daily in AM, # 28 tablet, 4 Refills, Maintenance, 04/13/22 11:43:00 EST, [facility], 183, cm, 03/16/22 8:31:00 EDT, Height, 71.3, [...] 60 mg, By Mouth, Every 3 hours, CONTENT DEVELOPER checked. fill on 08/02/22, # 224 tablet, 0 Refills, Maintenance, 07/30/22 17:15:00 EDT, [id number], may partial fill upon request; fill 07/19/2022,183, cm, 03/16/22 8:31:00 EDT, Height, 71.3, kg, 0... Start Date: 07/30/22 Stop Date: 08/13/22 Status: Ordered pantoprazole 40 mg oral delayed release tablet 1 tablet, By Mouth, Daily, # 28 tablet, 4 Refills, Maintenance, 07/08/22 11:30:00 EST, 183, cm, 03/16/22 8:31:00 EDT, Height, 71.3, kg, 08/08/21 0:23:00 EDT, Dry Weight Start Date: 07/08/22 Status: Ordered Potassium Chloride (Bfw-Tlds-Uip 10) 10 mEq oral tablet, extended release See Instructions, TAKE 2 TABLETS BY MOUTH EVERY MORNING AND TAKE 1 TABLET EVERY EVENING, # 84 tablet, 2 Refills, Maintenance, 06/09/22 9:19:00 EST, [facility], 183, cm, 03/16/22 8:31:00 EDT, Height, 71.3, kg, 08/08/21 0:23:00 EDT, Dry Weight Start Date: 06/09/22 Status: Ordered sertraline 100 mg oral tablet 1 tablet, By Mouth, Daily, # 28 tablet, 5 Refills, Maintenance, 06/09/22 8:26:00 EST, [facility], 183, cm, 03/16/22 8:31:00 EDT, Height, 71.3, kg, 08/08/21 0:23:00 EDT, Dry Weight Start Date: 06/09/22 Status: Ordered spironolactone 25 mg oral tablet 1, tablet, By Mouth, Daily, # 28 tablet, Refills 4, Maintenance, 07/08/22 11:30:00 EST, Route to Pharmacy Electronically, [facility], 183, cm, 03/16/22 8:31:00 EDT, Height, 71.3, kg, 08/08/21 0:23:00 EDT, Dry Weight Start Date: 07/08/22 Status: Ordered sucralfate 1 gm oral tablet 1, tablet, By Mouth, 3 times a day before meals, AND BEDTIME., # 112 tablet, Refills 2, Maintenance, 08/03/22 8:30:00 EDT, Route to Pharmacy Electronically, [facility], 183, cm, 03/16/22 8:31:00EDT, Height, 71.3, kg, 08/08/21 0:23:00 EDT, Dry We... Start Date: 08/03/22 Status: Ordered Vitamin B-12 1000 mcg oral tablet See Instructions, TAKE 1 TABLET BY MOUTH EVERY DAY, # 28 tablet, Refills 5, Maintenance, 05/14/22 16:30:00 EST, Instructions Replace Required Details, Route to Pharmacy Electronically, [facility], 183, cm, 03/16/22 8:31:00 EDT, Height, 71.3, kg,... Start Date: 05/14/22 Status: Ordered Vitamin B-12 1000 mcg oral tablet 1, tablet, By Mouth, Daily, # 28 tablet, Refills 5, Route to Pharmacy Electronically, [facility], 183, cm, 08/12/21 14:20:00 EDT, Height, 71.3, [...] Team Personnel Name: Irish Samuel RN Position: [facility] RN Member Role: Primary Care Nurse Name: Mireya Ramsey Position: [facility] RN Supv Member Role: Primary Care Nurse Name: Rhea Betancur RN Position: [facility] SN RN Member Role: Primary Care Nurse Name: Hugo Ayala RN Position: [facility] RN Member Role: Primary Care Nurse Name: Lorna Faust RN Position: [facility] RN Member Role: Primary Care Nurse Name: Wilner Feliciano RN Position: [facility] RN Supv Member Role: Primary Care Nurse Name: David Gonzalez MD Position: [facility] Renal MD Member Role: Lifetime Consulting Physician Address: Address: [address] [place] [address], [address] [facility] [place] [address]- Name: Hannah Garcia NP Position: [facility] PCO Associate Professional Member Role: PCP Address: Address: [address] [place] [address], [address] [place] [address]- [place] Name: Eduin Arias MD Position: [facility] Physician (General Medicine) Member Role: Lifetime Consulting Physician Address: Address: [address] [place] [address], [address] [place] [address]- [place] Name: Ana Herrera RN Position: [facility] RN Member Role: Primary Care Nurse Name: Carlos Montez RN Position: [facility] RN Member Role: Primary Care Nurse Name: Cadence Quach RN Position: [facility] OB RN Member Role: Primary Care Nurse Name: Maggy Tsang RN Position: [facility] RN Member Role: Primary Care Nurse Name: Keyla Keys RN Position: [facility] SN RN Member Role: Primary Care Nurse Name: Марина Guevara RN Position: [facility] RN Member Role: Primary Care Nurse Name: Lyn Helms RN Position: [facility] RN Member Role: Primary Care Nurse Name: Tatum Biswas RN Position: [facility] RN Member Role: Primary Care Nurse Name: Hugo Bateman RN Position: [facility] RN Member Role: Primary Care Nurse Name: Petros Levy RN Position: [facility] RN Member Role: Primary Care Nurse Name: Charly Burns RN Position: [facility] RN Member Role: Primary Care Nurse Name: Izabella Braun RN Position: [facility] RN Member Role: Primary Care Nurse Name: Lyndsay King RN Position: [facility] RN Member Role: Primary Care Nurse Name: Felicia Kerr RN Position: [facility] RN Member Role: Primary Care Nurse Name: Hafsa Goyal RN Position: [facility] RN Member Role: Primary Care Nurse Name: Rosalio Jack RN Position: [facility] RN Member Role: Primary Care Nurse Name: Geovanna Hill RN Position: [facility] RN Member Role: Primary Care Nurse Name: Carmela Houser RN Position: [facility] SN RN Member Role: Primary Care Nurse Name: Michael Dickson RN Position: [facility] RN Member Role: Primary Care Nurse Name: Jessica Lema RN Position: [facility] RN Member Role: Primary Care Nurse Name: hPu Flynn MD Position: [facility] Renal MD Member Role: Lifetime Consulting Physician Address: Address: [address] [place] [address] [facility] [address] Name: Yesica Serna RN Position: [facility] OB RN Member Role: Primary Care Nurse Name: Jesusita Lou RN Position: [facility] OB RN Member Role: Primary Care Nurse Name: Karen Quach RN Position: [facility] PCO w/OE and EZ Script Member Role: Primary Care Nurse Name: Marshall Byrd RN Position: [facility] RN Member Role: Primary Care Nurse Care Team Related Persons Name: DUTCH MAR Address: [place], [place] Name: ALL AYERS Address: home [address] [place], [place] Name: ALL MANZANARES Address: [address] [place] [address] Name: CHRISTEN GRIMALDO Address: [address] [place] [address]
--- OUTSIDE RECORDS SUMMARY | 2023-11-18 12:38 | XMS_ITS | Continuity of Care Document ---
Author Organization [facility] Adult Address [address] [place] [address]- Care Team Providers Care Associate Principal Name Role Phone Radha ODONNELL, Hannah Primary Care Physician Encounter [facility] Date(s): 04/26/23 - 05/26/23 [facility] Adult [address] [place] [id number]- Allergies, Adverse Reactions, Alerts Substance Reaction Severity [...] 01/09/23 7:22:00 EDT, Route to Pharmacy Electronically, [facility], 183, cm, 10/08/22 16:18:00 EDT, Height, 71.3, kg, 08/08/21 0:23:00 EDT, Dry Weight Start Date: 01/09/23 Status: Ordered amLODIPine 5 mg oral tablet 1 tablet, By Mouth, Daily, # 28 tablet, 5 Refills, Maintenance, 11/25/22 16:21:00 EDT, [facility] 3[facility], 183, cm, 10/08/22 16:18:00 EDT, Height, 71.3, kg, 08/08/21 0:23:00 EDT, Dry Weight Start Date: 11/25/22 Status: Ordered atorvastatin 40 mg oral tablet 1 tablet, By Mouth, Daily, # 28 tablet, 2 Refills, Maintenance, 01/09/23 7:23:00 EDT, [facility], 183, cm, 10/08/22 16:18:00 EDT, Height, 71.3, [...] tablet, 5 Refills, Maintenance, 04/21/23 18:36:00 EST, [facility]/pharmacy#[id number], 1 tablet By Mouth Daily,x28 days, 183, cm, 03/28/23 11:43:00 EST, Height, 71.3, kg, :23:00 EDT, Dry Weight Start Date: 04/21/23 Stop Date: 10/06/23 Status: Ordered carvedilol 12.5 mg oral tablet 1, tablet, By Mouth, 2 times a day, # 56 tablet, Refills 5, Maintenance, 11/25/22 16:22:00 EDT, Route to Pharmacy Electronically, [facility], 183, cm, 10/08/22 16:18:00 EDT, Height, 71.3, kg, 08/08/21 0:23:00 EDT, Dry Weight Start Date: 11/25/22 Status: Ordered cholecalciferol 50,000 intl units oral capsule 1 capsule = 50,000 International_Units, By Mouth, Every week, # 13 capsule, 3 Refills, Maintenance,03/19/23 15:28:00 EDT, Capsule, [facility]/pharmacy #[id number], Partial fill upon patient request if the prescription is for a schedule II opioid drug., 183, cm, 0... Start Date: 03/19/23 Stop Date: 03/13/24 Status: Ordered cholecalciferol 50,000 intl units oral capsule 1 capsule = 50,000 International_Units, By Mouth, Every 7 days, # 13 capsule, 3 Refills, Maintenance, 03/20/23 8:29:00 EST, Capsule, [facility]/pharmacy #[id number], Partial fill upon patient request, 183, cm, 10/08/22 16:18:00 EDT, Height, 71.3, kg, 08/08/21 0:23... Start Date: 03/20/23 Stop Date: 03/14/24 Status: Ordered [facility] B-12 1,000 MCG TABLET [...] 56 tablet, 6 Refills, Maintenance, 05/14/2216:30:00 EST, [facility] 56695, 183, cm, 03/16/22 8:31:00 EDT, Height, 71.3, kg, 08/08/21 0:23:00 EDT, Dry Weight Start Date: 05/14/22 Status: Ordered Eliquis 5 mg oral tablet 1 tablet, By Mouth, 2 times a day, # 56 tablet, 6 Refills, [facility] 61282, 183, cm, 08/12/21 14:20:00 EDT, Height, 71.3, kg, 08/08/21 0:23:00 EDT, Dry Weight Start Date: 09/26/21 Status: Ordered furosemide 40 mg oral tablet 1, tablet, By Mouth, 2 times a day, # 56 tablet, Refills 2, Tot. Refills 2, Maintenance, 04/21/23 18:37:00 EST, Route to Pharmacy Electronically, [facility]/pharmacy #[id number], 183, cm, 03/28/23 11:43:00 EST, [...] tablet, 2 Refills, Maintenance, 04/27/23 13:02:00 EST, [facility] 77798, 183, cm, 03/28/23 11:43:00 EST, Height, 71.3, kg, 08/08/21 0:23:00 EDT, Dry Weight Start Date: 04/27/23 Status: Ordered isosorbide mononitrate 60 mg oral tablet, extended release 1 tablet, By Mouth, Daily in AM, # 28 tablet, 5 Refills, Maintenance, 04/21/23 18:37:00 EST, [facility]/pharmacy #[id number], 183, cm, 03/28/23 11:43:00 EST, [...] Refills, Maintenance, 08/24/19 15:40:00 [id number], [facility], 05/25/19 15:06:00 EST, Height, 88.3, kg, 08/31/17 3:30:00 EDT, Dry Weight Start Date: 08/24/19 Stop Date: 12/22/19 Status: Ordered oxyCODONE 30 mg oral tablet 2 tablet = 60 mg, By Mouth, Every 3 hours, CRUISE AGENT checked., # 112 tablet, 0 Refills, Maintenance, 05/24/23 16:36:00 EST, [id number] 7 days as needs testing performed partial fill upon request;,183, cm, 05/10/23 11:59:00 EST, Height, 71.3, kg,... Start Date: 05/24/23 Stop Date: 05/31/23 Status: Ordered oxyCODONE 30 mg oral tablet 2 tablet = 60 mg, By Mouth, Every 3 hours, CRUISE AGENT checked., # 112 tablet, 0 Refills, Maintenance, 05/10/23 13:38:00 EST, [facility]/pharmacy #[id number], may partial fill upon request;, [...] Start Date: 11/30/22 Status: Ordered Potassium Chloride (Dlh-Anyk-Yln 10) 10 mEq oral tablet, extended release See Instructions, TAKE 2 TABLETS BY MOUTH EVERY MORNING AND TAKE 1 TABLET EVERY EVENING, # 84 tablet, 2 Refills, Maintenance, 04/27/23 13:02:00 EST, [facility], 183, cm, 03/28/23 11:43:00 EST, Height, 71.3, kg, 08/08/21 0:23:00 EDT, Dry Weight Start Date: 04/27/23 Status: Ordered sertraline 100 mg oral tablet 1 tablet, By Mouth, Daily, # 28 tablet, 5 Refills, Maintenance, 06/09/22 8:26:00 EST, [facility], 183, cm, 03/16/22 8:31:00 EDT, Height, 71.3, kg, 08/08/21 0:23:00 EDT, Dry Weight Start Date: 06/09/22 Status: Ordered sertraline 100 mg oral tablet See Instructions, TAKE 1 TABLET BY MOUTH EVERY DAY, # 28 tablet, 5 Refills, Maintenance, 11/30/22 15:39:00 EDT, [facility], 183, cm, 10/08/22 16:18:00 EDT, Height, 71.3, kg, 08/08/21 0:23:00 EDT, Dry Weight Start Date: 11/30/22 Status: Ordered spironolactone 25 mg oral tablet 1, tablet, By Mouth, Daily, # 28 tablet, Refills 4, Maintenance, 07/08/22 11:30:00 EST, Route to Pharmacy Electronically, [facility], 183, cm, 03/16/22 8:31:00 EDT, Height, 71.3, kg, 08/08/21 0:23:00 EDT, Dry Weight Start Date: 07/08/22 Status: Ordered spironolactone 25 mg oral tablet See Instructions, TAKE 1 TABLET BY MOUTH EVERY DAY, # 28 tablet, Refills 4, Maintenance, 11/30/22 15:38:00 EDT, Instructions Replace Required Details, Route to Pharmacy Electronically, [facility] 71245, 183, cm, 10/08/22 16:18:00 EDT, Height, 71.3, kg,... Start Date: 11/30/22 Status: Ordered sucralfate 1 gm oral tablet 1, tablet, By Mouth, 3 times a day before meals, AND BEDTIME., # 112 tablet, Refills 5, Maintenance, 02/04/23 16:32:00 EDT, Route to Pharmacy Electronically, [facility], 183, cm, 10/08/22 16:18:00 EDT, Height, 71.3, kg, 08/08/21 0:23:00 EDT, Dry... Start Date: 02/04/23 Status: Ordered Vitamin B-12 1000 mcg oral tablet 1, tablet, By Mouth, Daily, # 28 tablet, Refills 11, Tot. Refills 11, Maintenance, 04/21/23 18:37:00 EST, Route to Pharmacy Electronically, [facility]/pharmacy #[id number], 183, cm, 03/28/23 11:43:00 EST, [...] artery disease by Rolando Rubin M.D. at [facility]. 4In the past; states this [...] Member Role: Lifetime Consulting Physician Address: Address: [address] [place] [address] [address] [place] [address]- [place] Name: Hannah Garcia NP Position: [facility] PCO Associate Professional Member Role: PCP Address: Address: [address] [place] [address], [address] [place] [address]- [place] Name: Eduin Arias MD Position: [facility] Renal MD Member Role: Lifetime Consulting Physician Address: Address: [address] [place] [address], [address] [place] [address]- [place] Name: Ana Herrera RN Position: [facility] [...] Guevara RN Position: [facility] SN [...] Role: Lifetime Consulting Physician Address: Address: [address] [place] [address] [facility] [address] Name: Yesica Serna RN Position: [facility] [...] Related Persons Name: DUTCH MAR Address: [place] [address] Name: ALL AYERS Address: [address] [place] [address] Name: ALL MANZANARES Address: [address] [place] [address] Name: CHRISTEN GRIMALDO Address: [address] [place] [address]
--- OUTSIDE RECORDS SUMMARY | 2023-11-18 12:38 | XMS_ITS | Continuity of Care Document ---
Author Organization [facility] Adult Address [address] [place] [id number]- Care Team Providers Care Solutions Operator Name Role Phone Radha ODONNELL, Hannah Primary Care Physician Encounter [facility] Date(s): 09/01/23 - 10/01/23 [facility] Adult [address] [place] [id number]- Allergies, Adverse Reactions, Alerts Substance Reaction Severity [...] 09/22/23 19:43:00 EDT, Route to Pharmacy Electronically, [id number], 183, cm, 09/08/23 10:09:00 EDT, Height Start Date: 09/22/23 Status: Ordered amLODIPine 5 mg oral tablet 1 tablet, By Mouth, Daily, # 28 tablet, 5 Refills, Maintenance, 09/22/23 19:43:00 EDT, [id number], 183, cm, 09/08/23 10:09:00 EDT, Height Start [...] tablet, 0 Refills, Maintenance, 09/20/23 14:28:00 EDT, [facility]/pharmacy#[id number], 1 tablet By Mouth Daily,x90 days, 183, cm, 09/08/23 10:09:00 EDT, Height Start Date: 09/20/23 Stop Date: 12/19/23 Status: Ordered carvedilol 12.5 mg oral tablet 1, tablet, By Mouth, 2 times a day, # 56 tablet, Refills 5, Maintenance, 09/22/23 19:44:00 EDT, Route to Pharmacy Electronically, [facility] [id number], 183, cm, 09/08/23 10:09:00 EDT, Height Start Date: 09/22/23 Status: Ordered cholecalciferol 50,000 intl units oral capsule 1 capsule = 50,000 International_Units, By Mouth, Every week, # 13 capsule, 3 Refills, Maintenance,03/19/23 15:28:00 EDT, Capsule, [facility]/pharmacy #[id number], Partial fill upon patient request [...] 09/22/23 19:45:00 EDT, Route to Pharmacy Electronically, [facility], 183, cm, 09/08/23 10:09:00 EDT, Height Start Date: 09/22/23 Status: Ordered clopidogrel 75 mg oral tablet 1, tablet, By Mouth, Daily, # 28 tablet, Refills 5, Tot. Refills 5, Maintenance, 06/08/23 14:08:00 EST, Route to Pharmacy Electronically, [facility]/pharmacy #[id number], 183, cm, 05/10/23 11:59:00 EST, [...] day, # 56 tablet, 6 Refills, [facility] 25947, 183, cm, 08/12/21 14:20:00 EDT, Height, 71.3, kg, 08/08/21 0:23:00 EDT, Dry Weight Start Date: 09/26/21 Status: Ordered Eliquis 5 mg oral tablet See Instructions, TAKE 1 TABLET BY MOUTH TWICE A DAY, # 56 tablet, 6 Refills, Maintenance, 06/07/2409:23:00 EST, [facility]/pharmacy #[id number], 183, cm, 05/10/23 11:59:00 EST, Height, 71.3, kg, 08/08/21 0:23:00 EDT, Dry Weight Start Date: 06/07/23 Status: Ordered furosemide 40 mg oral tablet 1, tablet, By Mouth, 2 times a day, # 168 tablet, Refills 1, Tot. Refills 1, Maintenance, 06/30/23 12:20:00 EST, Route to Pharmacy Electronically, [facility]/pharmacy #[id number], 183, cm, 05/10/23 11:59:00 EST, [...] tablet, 5 Refills, Maintenance, 09/22/23 19:45:00 EDT, [facility] 94188, 183, cm, 09/08/23 10:09:00 EDT, Height Start Date: 09/22/23 Status: Ordered isosorbide mononitrate 60 mg oral tablet, extended release 1 tablet, By Mouth, Daily in AM, # 90 tablet, 0 Refills, Maintenance, 09/20/23 14:28:00 EDT, [facility]/pharmacy #[id number], 183, cm, 09/08/23 10:09:00 EDT, Height Start Date: 09/20/23 Stop Date: 12/19/23 Status: Ordered Mylanta Maximum Strength oral suspension 5 mL, By Mouth, 4 times a day, PRN for control of stomach acid, # 200 mL, 1 Refills, Maintenance, 08/12/21 13:46:00 EDT, Suspension, [facility]/pharmacy #[id number], Partial fill upon patient request if the prescription is for a schedule II opioid drug., 5 mL By M... Start Date: 08/12/21 Status: Ordered Narcan 4 mg/0.1 mL nasal spray = 4 mg, Nares, Both, Once, may repeat every 2 to 3 minutes until patient responds, # 1 each, 0 Refills, Soft Stop, 05/14/23 10:41:00 EST, [facility]/pharmacy #[id number], Partial fill upon patient request if the prescription is for a schedule II opioid drug., 183,... Start Date: 05/14/23 Status: Ordered nitroglycerin 0.4 mg sublingual tablet 1 tablet = 0.4 mg, Sublingual, Every 5 minutes, PRN Chest Pain, # 25 tablet, 3 Refills, Maintenance, 08/24/19 15:40:00 EDT, [facility]/pharmacy #[id number], 183, cm, 05/25/19 15:06:00 EST, Height, 88.3, kg, 08/31/17 3:30:00 EDT, Dry Weight Start Date: 08/24/19 Stop Date: 12/22/19 Status: Ordered oxyCODONE 15 mg oral tablet 1 tablet = 15 mg, By Mouth, Every 4 hours, PRN as needed for pain, # 90 tablet, 0 Refills, Maintenance, 08/24/23 7:27:00 EDT, Tablet, [facility]/pharmacy #[id number], Partial fill upon patient request [...] Start Date: 06/24/23 Status: Ordered Potassium Chloride (Vfq-Mkpc-Emr 10) 10 mEq oral tablet, extended release See Instructions, TAKE 2 TABLETS BY MOUTH EVERY MORNING AND TAKE 1 TABLET EVERY EVENING, # 270 tablet, 1 Refills, Maintenance, 07/01/23 15:52:00 EST, [facility]/pharmacy #[id number], 183, cm, 05/10/23 11:59:00 EST, Height, 71.3, kg, 08/08/21 0:23:00 EDT, Dry Weight Start Date: 07/01/23 Status: Ordered sertraline 100 mg oral tablet 1 tablet, By Mouth, Daily, # 84 tablet, 0 Refills, Maintenance, 09/01/23 11:58:00 EDT, [facility]/pharmacy#[id number], 183, cm, 05/10/23 11:59:00 EST, Height Start Date: 09/01/23 Stop Date: 11/24/23 Status: Ordered sertraline 100 mg oral tablet See Instructions, TAKE 1 TABLET BY MOUTH EVERY DAY, # 28 tablet, 5 Refills, Maintenance, 11/30/22 15:39:00 EDT, [facility], 183, cm, 10/08/22 16:18:00 EDT, Height, 71.3, kg, 08/08/21 0:23:00 EDT, Dry Weight Start Date: 11/30/22 Status: Ordered spironolactone 25 mg oral tablet 1, tablet, By Mouth, Daily, # 28 tablet, Refills 4, Maintenance, 06/24/23 7:44:00 EST, Route to Pharmacy Electronically, [facility] [id number], 183, cm, 05/10/23 11:59:00 EST, Height, 71.3, kg, 08/08/21 0:23:00 EDT, Dry Weight Start Date: 06/24/23 Status: Ordered sucralfate 1 gm oral tablet 1, tablet, By Mouth, 3 times a day before meals, AND BEDTIME., # 112 tablet, Refills 5, Maintenance, 02/04/23 16:32:00 EDT, Route to Pharmacy Electronically, [id number], 183, cm, 10/08/22 16:18:00 EDT, Height, 71.3, kg, 08/08/21 0:23:00 EDT, Dry... Start Date: 02/04/23 Status: Ordered Vitamin B-12 1000 mcg oral tablet 1, tablet, By Mouth, Daily, # 28 tablet, Refills 11, Tot. Refills 11, Maintenance, 04/21/23 18:37:00 EST, Route to Pharmacy Electronically, [facility]/pharmacy #[id number], 183, cm, 03/28/23 11:43:00 EST, [...] artery disease by Rol[facility] at [facility]. 4In the past; states this has resolved Social History Social History Type Response Smoking Status Never smoker entered on: 08/24/16 Sex Patient Care team information Care Team Personnel Name: Irish Samuel RN Position: [facility] RN Member Role: Primary Care Nurse Name: Ever Blanco RN Position: [facility] ED RN W/OE and Tasks Member Role: Primary Care Nurse Name: Mireya Ramsey Position: [facility] RN Supv Member Role: Primary Care Nurse Name: Rhea Betancur RN Position: [facility] SN RN Member Role: Primary Care Nurse Name: Hugo Ayala RN Position: [facility] RN Member Role: Primary Care Nurse Name: Lorna Faust RN Position: [facility] RN Member Role: Primary Care Nurse Name: Wilner Feliciano RN Position: [facility] SN RN Member Role: Primary Care Nurse Name: David Gonzalez MD Position: [facility] Renal MD Member Role: Lifetime Consulting Physician Address: Address: [address] [place] [address] [address] [facility] [place] [address]- Name: Hannah Garcia NP Position: [facility] PCO Associate Professional Member Role: PCP Address: Address: [address] [place] [address], [address] [place] [address]- [place] Name: Eduin Arias MD Position: [facility] Renal MD Member Role: Lifetime Consulting Physician Address: Address: [address] [place] [address], [facility] [address] [place] [address]- [place] Name: Ana Herrera RN Position: [facility] AMB Nurse Member Role: Primary Care Nurse Name: Carlos Montez RN Position: [facility] Outreach Member Role: Primary Care Nurse Name: Cadence Quach RN Position: [facility] OB RN Member Role: Primary Care Nurse Name: Maggy Tsang RN Position: [facility] RN Member Role: Primary Care Nurse Name: Keyla Keys RN Position: [facility] SN RN Member Role: Primary Care Nurse Name: Марина Guevara RN Position: [facility] SN RN Member Role: Primary Care Nurse Name: Lyn Helms RN Position: [facility] RN Member Role: Primary Care Nurse Name: Tatum Biswas RN Position: [facility] RN Member Role: Primary Care Nurse Name: Hugo Bateman RN Position: [facility] RN Member Role: Primary Care Nurse Name: Petros Levy RN Position: [facility] RN Member Role: Primary Care Nurse Name: Charly Burns RN Position: [facility] RN Member Role: Primary Care Nurse Name: Nilesh Bear RN Position: [facility] RN Member Role: Primary Care Nurse Name: Izabella Braun RN Position: [facility] RN Member Role: Primary Care Nurse Name: Hafsa Goyal RN Position: [facility] RN Member Role: Primary Care Nurse Name: Rosalio Jack RN Position: [facility] RN Member Role: Primary Care Nurse Name: Carmela Houser RN Position: [facility] SN RN Member Role: Primary Care Nurse Name: Michael Dickson RN Position: [facility] RN Member Role: Primary Care Nurse Name: Jessica Lema RN Position: [facility] RN Member Role: Primary Care Nurse Name: Phu Flynn MD Position: [facility] Renal MD Member Role: Lifetime Consulting Physician Address: Address: [address] [place] [address] [facility] [place] [address]- Name: Yesica Serna RN Position: [facility] OB RN Member Role: Primary Care Nurse Name: Jesusita Lou RN Position: [facility] OB RN Member Role: Primary Care Nurse Name: Husam Elizalde RN Position: S RN Member Role: Primary Care Nurse Name: Marshall Byrd RN Position: S RN Member Role: Primary Care Nurse Care Team Related Persons Name: DUTCH MAR Address: [place] [address] Name: ALL AYERS Address: [address] [place] [address] Name: ALL MANZANARES Address: [address] [place] [address] Name: CHRISTEN GRIMALDO Address: [address] [place] [address]
--- OUTSIDE RECORDS SUMMARY | 2023-11-18 12:38 | XMS_ITS | Continuity of Care Document ---
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 Name Role Phone Radha ODONNELL, Hannah Primary Care Physician Encounter [facility] Date(s): 09/19/23 - 10/19/23 [facility] Adult [address] [place] [id number]- Allergies, Adverse Reactions, Alerts Substance Reaction Severity [...] 09/22/23 19:43:00 EDT, Route to Pharmacy Electronically, [facility] 47[facility], 183, cm, 09/08/23 10:09:00 EDT, Height Start Date: 09/22/23 Status: Ordered amLODIPine 5 mg oral tablet 1 tablet, By Mouth, Daily, # 28 tablet, 5 Refills, Maintenance, 09/22/23 19:43:00 EDT, [facility] 529[facility], 183, cm, 09/08/23 10:09:00 EDT, Height Start Date: 09/22/23 Status: Ordered atorvastatin 40 mg oral tablet 1 tablet, By Mouth, Daily, # 90 tablet, 1 Refills, Maintenance, 07/01/23 15:53:00 EST, [facility]/pharmacy#[id number], 183, cm, 05/10/23 11:59:00 EST, Height, 71.3, [...] tablet, 0 Refills, Maintenance, 09/20/23 14:28:00 EDT, [facility]/pharmacy#[id number], 1 tablet By Mouth Daily,x90 days, 183, cm, 09/08/23 10:09:00 EDT, Height Start Date: 09/20/23 Stop Date: 12/19/23 Status: Ordered carvedilol 12.5 mg oral tablet 1, tablet, By Mouth, 2 times a day, # 56 tablet, Refills 5, Maintenance, 09/22/23 19:44:00 EDT, Route to Pharmacy Electronically, [facility] 18704, 183, cm, 09/08/23 10:09:00 EDT, Height Start Date: 09/22/23 Status: Ordered cholecalciferol 50,000 intl units oral capsule 1 capsule = 50,000 International_Units, By Mouth, Every week, # 13 capsule, 3 Refills, Maintenance,03/19/23 15:28:00 EDT, Capsule, [facility]/pharmacy #[id number], Partial fill upon patient request if [...] 09/22/23 19:45:00 EDT, Route to Pharmacy Electronically, [facility] 46271, 183, cm, 09/08/23 10:09:00 EDT, Height Start Date: 09/22/23 Status: Ordered clopidogrel 75 mg oral tablet 1, tablet, By Mouth, Daily, # 28 tablet, Refills 5, Tot. Refills 5, Maintenance, 06/08/23 14:08:00 EST, Route to Pharmacy Electronically, [facility]/pharmacy #[id number], 183, cm, 05/10/23 11:59:00 EST, Height, [...] a day, # 56 tablet, 6 Refills, [facility] 16883, 183, cm, 08/12/21 14:20:00 EDT, Height, 71.3, kg, 08/08/21 0:23:00 EDT, Dry Weight Start Date: 09/26/21 Status: Ordered Eliquis 5 mg oral tablet See Instructions, TAKE 1 TABLET BY MOUTH TWICE A DAY, # 56 tablet, 6 Refills, Maintenance, 06/07/2409:23:00 EST, [facility]/pharmacy #[id number], 183, cm, 05/10/23 11:59:00 EST, Height, 71.3, kg, 08/08/21 0:23:00 EDT, Dry Weight Start Date: 06/07/23 Status: Ordered furosemide 40 mg oral tablet 1, tablet, By Mouth, 2 times a day, # 168 tablet, Refills 1, Tot. Refills 1, Maintenance, 06/30/23 12:20:00 EST, Route to Pharmacy Electronically, [facility]/pharmacy #[id number], 183, cm, 05/10/23 11:59:00 EST, Height, [...] tablet, 5 Refills, Maintenance, 09/22/23 19:45:00 EDT, [facility] 38095, 183, cm, 09/08/23 10:09:00 EDT, Height Start Date: 09/22/23 Status: Ordered isosorbide mononitrate 60 mg oral tablet, extended release 1 tablet, By Mouth, Daily in AM, # 90 tablet, 0 Refills, Maintenance, 09/20/23 14:28:00 EDT, [facility]/pharmacy #[id number], 183, cm, 09/08/23 10:09:00 EDT, Height Start Date: 09/20/23 Stop Date: 12/19/23 Status: Ordered Mylanta Maximum Strength oral suspension 5 mL, By Mouth, 4 times a day, PRN for control of stomach acid, # 200 mL, 1 Refills, Maintenance, 08/12/21 13:46:00 EDT, Suspension, [facility]/pharmacy #[id number], Partial fill upon patient request if the prescription is for a schedule II opioid drug., 5 mL By M... Start Date: 08/12/21 Status: Ordered Narcan 4 mg/0.1 mL nasal spray = 4 mg, Nares, Both, Once, may repeat every 2 to 3 minutes until patient responds, # 1 each, 0 Refills, Soft Stop, 05/14/23 10:41:00 EST, [facility]/pharmacy #[id number], Partial fill upon patient request if [...] 0 Refills, Maintenance, 08/24/23 7:27:00 EDT, Tablet, [facility]/pharmacy #[id number], Partial fill upon patient request if [...] Start Date: 06/24/23 Status: Ordered Potassium Chloride (Mse-Thxb-Ovi 10) 10 mEq oral tablet, extended release See Instructions, TAKE 2 TABLETS BY MOUTH EVERY MORNING AND TAKE 1 TABLET EVERY EVENING, # 270 tablet, 1 Refills, Maintenance, 07/01/23 15:52:00 EST, [facility]/pharmacy #[id number], 183, cm, 05/10/23 11:59:00 EST, Height, 71.3, kg, 08/08/21 0:23:00 EDT, Dry Weight Start Date: 07/01/23 Status: Ordered sertraline 100 mg oral tablet 1 tablet, By Mouth, Daily, # 84 tablet, 0 Refills, Maintenance, 09/01/23 11:58:00 EDT, [facility]/pharmacy#[id number], 183, cm, 05/10/23 11:59:00 EST, Height Start Date: 09/01/23 Stop Date: 11/24/23 Status: Ordered sertraline 100 mg oral tablet See Instructions, TAKE 1 TABLET BY MOUTH EVERY DAY, # 28 tablet, 5 Refills, Maintenance, 11/30/22 15:39:00 EDT, [facility], 183, cm, 10/08/22 16:18:00 EDT, Height, 71.3, kg, 08/08/21 0:23:00 EDT, Dry Weight Start Date: 11/30/22 Status: Ordered spironolactone 25 mg oral tablet 1, tablet, By Mouth, Daily, # 28 tablet, Refills 4, Maintenance, 06/24/23 7:44:00 EST, Route to Pharmacy Electronically, [facility] 636[facility], 183, cm, 05/10/23 11:59:00 EST, Height, 71.3, kg, 08/08/21 0:23:00 EDT, Dry Weight Start Date: 06/24/23 Status: Ordered sucralfate 1 gm oral tablet 1, tablet, By Mouth, 3 times a day before meals, AND BEDTIME., # 112 tablet, Refills 5, Maintenance, 02/04/23 16:32:00 EDT, Route to Pharmacy Electronically, [facility], 183, cm, 10/08/22 16:18:00 EDT, Height, 71.3, kg, 08/08/21 0:23:00 EDT, Dry... Start Date: 02/04/23 Status: Ordered Vitamin B-12 1000 mcg oral tablet 1, tablet, By Mouth, Daily, # 28 tablet, Refills 11, Tot. Refills 11, Maintenance, 04/21/23 18:37:00 EST, Route to Pharmacy Electronically, [facility]/pharmacy #[id number], 183, cm, 03/28/23 11:43:00 EST, Height,71.3, [...] artery disease by Rolando Rubin M.D. at [facility]. 4In the past; states this has resolved Social History Social History Type Response Smoking Status Never smoker entered on: 08/24/16 Sex Patient Care team information Care Team Personnel Name: Irish Samuel RN Position: [facility] RN Member Role: Primary Care Nurse Name: Ever Blanco RN Position: [facility] ED RN W/OE and Tasks Member Role: Primary Care Nurse Name: Mireya Ramsey Position: [facility] RN Supv Member Role: Primary Care Nurse Name: Rhea Betancur RN Position: [facility] SN RN Member Role: Primary Care Nurse Name: Hugo Ayala RN Position: [facility] RN Member Role: Primary Care Nurse Name: Lorna Faust RN Position: [facility] RN Member Role: Primary Care Nurse Name: Wilner Feliciano RN Position: [facility] SN RN Member Role: Primary Care Nurse Name: David Gonzalez MD Position: [facility] Renal MD Member Role: Lifetime Consulting Physician Address: Address: [address] [place] [address] [address] [place] [address]- Name: Hannah Garcia NP Position: [facility] PCO Associate Professional Member Role: PCP Address: Address: [address] [place] [address], [address] [place] [address]- [place] Name: Eduin Arias MD Position: [facility] Renal MD Member Role: Lifetime Consulting Physician Address: Address: [address] [place] [address], [facility] [address] [place] [address]- [place] Name: Ana Herrera RN Position: [facility] AMB Nurse Member Role: Primary Care Nurse Name: Carlos Montez RN Position: [facility] Outreach Member Role: Primary Care Nurse Name: Cadence Quach RN Position: [facility] OB RN Member Role: Primary Care Nurse Name: Maggy Tsang RN Position: [facility] RN Member Role: Primary Care Nurse Name: Keyla Keys RN Position: [facility] SN RN Member Role: Primary Care Nurse Name: Марина Guevara RN Position: [facility] SN RN Member Role: Primary Care Nurse Name: Lyn Helms RN Position: [facility] RN Member Role: Primary Care Nurse Name: Tatum Biswas RN Position: [facility] RN Member Role: Primary Care Nurse Name: Hugo Bateman RN Position: [facility] RN Member Role: Primary Care Nurse Name: Petros Levy RN Position: [facility] RN Member Role: Primary Care Nurse Name: Charly Burns RN Position: [facility] RN Member Role: Primary Care Nurse Name: Nilesh Bear RN Position: [facility] RN Member Role: Primary Care Nurse Name: Izabella Braun RN Position: [facility] RN Member Role: Primary Care Nurse Name: Donita Almonte RN Position: [facility] SN Tow Feeder Member Role: Primary Care Nurse Name: Hafsa Goyal RN Position: [facility] RN Member Role: Primary Care Nurse Name: Rosalio Jack RN Position: [facility] RN Member Role: Primary Care Nurse Name: Carmela Houser RN Position: [facility] SN RN Member Role: Primary Care Nurse Name: Michael Dickson RN Position: [facility] RN Member Role: Primary Care Nurse Name: Jessica Lema RN Position: [facility] RN Member Role: Primary Care Nurse Name: Phu Flynn MD Position: [facility] Renal MD Member Role: Lifetime Consulting Physician Address: Address: [address] [place] [address] [facility] [address]- Name: Yesica Serna RN Position: [facility] OB RN Member Role: Primary Care Nurse Name: Jesusita Lou RN Position: [facility] OB RN Member Role: Primary Care Nurse Name: Husam Elizalde RN Position: S RN Member Role: Primary Care Nurse Name: Marshall Byrd RN Position: S RN Member Role: Primary Care Nurse Care Team Related Persons Name: ZAID DUTCH Address: [place], [place] Name: ALL AYERS Address: [address] [place], [place] Name: ALL MANZANARES Address: [address] [place], [place] Name: CHRISTEN GRIMALDO Address: [address] [place] [address]
--- OUTSIDE RECORDS SUMMARY | 2023-11-18 12:38 | XMS_ITS | Continuity of Care Document ---
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 Name Role Phone Radha ODONNELL, Hannah Primary Care Physician [phone] Encounter [facility] Date(s): 07/28/22 - 08/27/22 [facility] [address] [place], [place] [address] Attending Physician: AdmCaroline barreto Admitting Physician: AdmtrCaroline Referring Physician: Admtr, Caroline [...] 07/08/22 11:30:00 EST, Route to Pharmacy Electronically, [id number], 183, cm, 03/16/22 8:31:00 EDT, Height, 71.3, kg, 08/08/21 0:23:00 EDT, Dry Weight Start Date: 07/08/22 Status: Ordered amLODIPine 5 mg oral tablet 1 tablet, By Mouth, Daily, # 28 tablet, 4 Refills, Maintenance, 04/13/22 11:43:00 EST, [facility] 418[facility], 183, cm, 03/16/22 8:31:00 EDT, Height, 71.3, kg, 08/08/21 0:23:00 EDT, Dry Weight Start Date: 04/13/22 Status: Ordered atorvastatin 40 mg oral tablet 1 tablet, By Mouth, Daily, # 28 tablet, 5 Refills, Maintenance, 07/08/22 11:30:00 EST, [facility] ST[facility] 76833, 183, cm, 03/16/22 8:31:00 EDT, Height, 71.3, kg, 08/08/21 0:23:00 EDT, Dry Weight Start Date: 07/08/22 Status: Ordered buPROPion 150 mg/24 hours (XL) oral tablet, extended release See Instructions, TAKE 1 TABLET BY MOUTH EVERY 24 HOURS, # 28 tablet, 5 Refills, 03/18/22 11:05:00 EDT, [facility]/pharmacy #[id number], 28, TAKE 1 TABLET BY MOUTH EVERY 24 HOURS, 183, cm, 03/16/22 8:31:00 EDT, Height, 71.3, kg, 08/08/21 0:23:00 EDT, Dry Weight Start Date: 03/18/22 Status: Ordered buPROPion 150 mg/24 hours (XL) oral tablet, extended release 1 tablet, By Mouth, Every 24 hours, # 28 tablet, 2 Refills, [facility], 28, TAKE 1 TABLET BY MOUTH EVERY 24 HOURS, 183, cm, 08/12/21 14:20:00 EDT, Height, 71.3, kg, 08/08/21 0:23:00 EDT, Dry Weight Start Date: 09/25/21 Status: Ordered carvedilol 12.5 mg oral tablet 1, tablet, By Mouth, 2 times a day, # 56 tablet, Refills 5, Route to Pharmacy Electronically, [facility] 13124, 183, cm, 05/04/21 3:09:00 EST, Height, 81.7, kg, 04/16/21 3:06:00 EST, Dry Weight Start Date: 07/07/21 Status: Ordered carvedilol 12.5 mg oral tablet See Instructions, TAKE 1 TABLET BY MOUTH TWICE A DAY, # 56 tablet, Refills 5, Tot. Refills 5, 03/18/22 11:05:00 EDT, Instructions Replace Required Details, Route to Pharmacy Electronically, [facility]/pharmacy #[id number], 183, cm, 03/16/22 8:31:00 EDT, Height, 71... Start Date: 03/18/22 Status: Ordered clopidogrel 75 mg oral tablet 1, tablet, By Mouth, Daily, # 28 tablet, Refills 5, Route to Pharmacy Electronically, [facility]ORE 76533, 183, cm, 05/04/21 3:09:00 EST, Height, 81.7, kg, 04/16/21 3:06:00 EST, Dry Weight Start Date: 07/02/21 Status: Ordered clopidogrel 75 mg oral tablet 75 mg, 1, tablet, By Mouth, Daily, for 30 days, # 30 tablet, Refills 5, Tot. Refills 5, Physician Stop 09/14/22 13:18:00 EDT, 03/18/22 13:18:00 EDT, Route to Pharmacy Electronically, [facility]/pharmacy #[id number], 183, cm, 03/16/22 8:31:00 EDT, Height, 71.3, kg,... Start Date: 03/18/22 Stop Date: 09/14/22 Status: Ordered Eliquis 5 mg oral tablet See Instructions, TAKE 1 TABLET BY MOUTH TWICE A DAY, # 56 tablet, 6 Refills, Maintenance, 05/14/2216:30:00 EST, [facility] STORE 10524, 183, cm, 03/16/22 8:31:00 EDT, Height, 71.3, kg, 08/08/21 0:23:00 EDT, Dry Weight Start Date: 05/14/22 Status: Ordered Eliquis 5 mg oral tablet 1 tablet, By Mouth, 2 times a day, # 56 tablet, 6 Refills, [facility] 51590, 183, cm, 08/12/21 14:20:00 EDT, Height, 71.3, kg, 08/08/21 0:23:00 EDT, Dry Weight Start Date: 09/26/21 Status: Ordered furosemide 40 mg oral tablet 1, tablet, By Mouth, 2 times a day, # 56 tablet, Refills 2, Maintenance, 07/08/22 11:30:00 EST, Route to Pharmacy Electronically, [facility], 183, cm, 03/16/22 8:31:00 EDT, Height, 71.3, kg, 08/08/21 0:23:00 EDT, Dry Weight Start Date: 07/08/22 Status: Ordered hydrALAZINE 50 mg oral tablet 1 tablet, By Mouth, 3 times a day, # 84 tablet, 1 Refills, Maintenance, 08/03/22 8:30:00 EDT, [facility], 183, cm, 03/16/22 8:31:00 EDT, Height, 71.3, kg, 08/08/21 0:23:00 EDT, Dry Weight Start Date: 08/03/22 Status: Ordered isosorbide mononitrate 60 mg oral tablet, extended release 1 tablet, By Mouth, Daily in AM, # 28 tablet, 4 Refills, Maintenance, 04/13/22 11:43:00 EST, [facility], 183, cm, 03/16/22 8:31:00 EDT, Height, 71.3, [...] 60 mg, By Mouth, Every 3 hours, 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 fill on 08/30/22, # 224 tablet, [...] Start Date: 07/08/22 Status: Ordered Potassium Chloride (Rxp-Iynk-Vhk 10) 10 mEq oral tablet, extended release See Instructions, TAKE 2 TABLETS BY MOUTH EVERY MORNING AND TAKE 1 TABLET EVERY EVENING, # 84 tablet, 2 Refills, Maintenance, 06/09/22 9:19:00 EST, [facility], 183, cm, 03/16/22 8:31:00 EDT, Height, 71.3, kg, 08/08/21 0:23:00 EDT, Dry Weight Start Date: 06/09/22 Status: Ordered sertraline 100 mg oral tablet 1 tablet, By Mouth, Daily, # 28 tablet, 5 Refills, Maintenance, 06/09/22 8:26:00 EST, [facility] 8[facility], 183, cm, 03/16/22 8:31:00 EDT, Height, 71.3, kg, 08/08/21 0:23:00 EDT, Dry Weight Start Date: 06/09/22 Status: Ordered spironolactone 25 mg oral tablet 1, tablet, By Mouth, Daily, # 28 tablet, Refills 4, Maintenance, 07/08/22 11:30:00 EST, Route to Pharmacy Electronically, [facility], 183, cm, 03/16/22 8:31:00 EDT, Height, 71.3, kg, 08/08/21 0:23:00 EDT, Dry Weight Start Date: 07/08/22 Status: Ordered sucralfate 1 gm oral tablet 1, tablet, By Mouth, 3 times a day before meals, AND BEDTIME., # 112 tablet, Refills 2, Maintenance, 08/03/22 8:30:00 EDT, Route to Pharmacy Electronically, [facility], 183, cm, 03/16/22 8:31:00EDT, Height, 71.3, kg, 08/08/21 0:23:00 EDT, Dry We... Start Date: 08/03/22 Status: Ordered Vitamin B-12 1000 mcg oral tablet See Instructions, TAKE 1 TABLET BY MOUTH EVERY DAY, # 28 tablet, Refills 5, Maintenance, 05/14/22 16:30:00 EST, Instructions Replace Required Details, Route to Pharmacy Electronically, [facility], 183, cm, 03/16/22 8:31:00 EDT, Height, 71.3, kg,... Start Date: 05/14/22 Status: Ordered Vitamin B-12 1000 mcg oral tablet 1, tablet, By Mouth, Daily, # 28 tablet, Refills 5, Route to Pharmacy Electronically, [facility] 375[facility], 183, cm, 08/12/21 14:20:00 EDT, Height, 71.3, [...] Rolando Rubin M.D. at [facility]. 4In the past; states this [...] Care Nurse Name: Wilner Feliciano RN Position: [facility] RN Supv Member Role: Primary Care Nurse Name: David Gonzalez MD Position: [facility] Renal MD Member Role: Lifetime Consulting Physician Address: Address: [address] [place] [address], [facility] [address] [facility] [place] [address]- Name: Hannah Garcia NP Position: [facility] PCO Associate Professional Member Role: PCP Address: Address: [address] [place] [address], 3rd Floor [facility] [place] [address]- Name: Eduin Arias MD Position: [facility] Physician (General Medicine) Member Role: Lifetime Consulting Physician Address: Address: [address] [place] [address], [address] [address]- Name: Ana Herrera RN Position: [facility] RN Member Role: Primary Care Nurse Name: Carlos Montez RN Position: [facility] RN Member [...] Care Nurse Name: Lyn Helms RN Position: S RN Member Role: Primary Care Nurse Name: Tatum Biswas RN Position: [facility] RN Member Role: Primary Care Nurse Name: Hugo Bateman RN Position: [facility] RN Member Role: Primary Care Nurse Name: Petros Levy RN Position: [facility] RN Member Role: Primary Care Nurse Name: Charly Burns RN Position: [facility] RN Member Role: Primary Care Nurse Name: Izabella Braun RN Position: [facility] RN Member Role: Primary Care Nurse Name: Lyndsay King RN Position: [facility] RN Member Role: Primary Care Nurse Name: Felicia Kerr RN Position: [facility] RN Member Role: Primary Care Nurse Name: Hafsa Goyal RN Position: [facility] RN Member Role: Primary Care Nurse Name: Rosalio Jack RN Position: [facility] RN Member Role: Primary Care Nurse Name: Geovanna Hill RN Position: [facility] RN Member [...] Member Role: Lifetime Consulting Physician Address: Address: [address] [place] [address] [facility] [address] Name: Yesica Serna RN Position: [facility] OB RN Member Role: Primary Care Nurse Name: Jesusita Lou RN Position: [facility] OB RN Member Role: Primary Care Nurse Name: Karen Quach RN Position: [facility] PCO w/OE and EZ Script Member Role: Primary Care Nurse Name: Marshall Byrd RN Position: [facility] RN Member Role: Primary Care Nurse Care Team Related Persons Name: ZAID DUTCH Address: [place], [place] Name: ALL AYERS Address: home [address] [place], [place] Name: ALL MANZANARES Address: home [address] [place], [place] Name: CHRISTEN GRIMALDO Address: home [address] [place], [place]
--- OUTSIDE RECORDS SUMMARY | 2023-11-18 12:38 | XMS_ITS | Continuity of Care Document ---
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 Role Phone Radha ODONNELL, Hannah Primary Care Physician [phone] Encounter [facility] Date(s): 04/26/23 - 05/26/23 [facility] [address] [place] [address]- Allergies, Adverse Reactions, Alerts Substance Reaction Severity [...] 01/09/23 7:22:00 EDT, Route to Pharmacy Electronically, [facility], 183, cm, 10/08/22 16:18:00 EDT, Height, 71.3, kg, 08/08/21 0:23:00 EDT, Dry Weight Start Date: 01/09/23 Status: Ordered amLODIPine 5 mg oral tablet 1 tablet, By Mouth, Daily, # 28 tablet, 5 Refills, Maintenance, 11/25/22 16:21:00 EDT, [facility] 0[facility], 183, cm, 10/08/22 16:18:00 EDT, Height, 71.3, kg, 08/08/21 0:23:00 EDT, Dry Weight Start Date: 11/25/22 Status: Ordered atorvastatin 40 mg oral tablet 1 tablet, By Mouth, Daily, # 28 tablet, 2 Refills, Maintenance, 01/09/23 7:23:00 EDT, [facility], 183, cm, 10/08/22 16:18:00 EDT, Height, 71.3, [...] tablet, 5 Refills, Maintenance, 04/21/23 18:36:00 EST, [facility]/pharmacy#[id number], 1 tablet By Mouth Daily,x28 days, 183, cm, 03/28/23 11:43:00 EST, Height, 71.3, kg, :23:00 EDT, Dry Weight Start Date: 04/21/23 Stop Date: 10/06/23 Status: Ordered carvedilol 12.5 mg oral tablet 1, tablet, By Mouth, 2 times a day, # 56 tablet, Refills 5, Maintenance, 11/25/22 16:22:00 EDT, Route to Pharmacy Electronically, [facility] 474[facility], 183, cm, 10/08/22 16:18:00 EDT, Height, 71.3, kg, 08/08/21 0:23:00 EDT, Dry Weight Start Date: 11/25/22 Status: Ordered cholecalciferol 50,000 intl units oral capsule 1 capsule = 50,000 International_Units, By Mouth, Every week, # 13 capsule, 3 Refills, Maintenance,03/19/23 15:28:00 EDT, Capsule, [facility]/pharmacy #[id number], Partial fill upon patient request if the prescription is for a schedule II opioid drug., 183, cm, 0... Start Date: 03/19/23 Stop Date: 03/13/24 Status: Ordered cholecalciferol 50,000 intl units oral capsule 1 capsule = 50,000 International_Units, By Mouth, Every 7 days, # 13 capsule, 3 Refills, Maintenance, 03/20/23 8:29:00 EST, Capsule, [facility]/pharmacy #[id number], Partial fill upon patient request, [...] 56 tablet, 6 Refills, Maintenance, 05/14/2216:30:00 EST, [facility] 16880, 183, cm, 03/16/22 8:31:00 EDT, Height, 71.3, kg, 08/08/21 0:23:00 EDT, Dry Weight Start Date: 05/14/22 Status: Ordered Eliquis 5 mg oral tablet 1 tablet, By Mouth, 2 times a day, # 56 tablet, 6 Refills, [facility] 53113, 183, cm, 08/12/21 14:20:00 EDT, Height, 71.3, kg, 08/08/21 0:23:00 EDT, Dry Weight Start Date: 09/26/21 Status: Ordered furosemide 40 mg oral tablet 1, tablet, By Mouth, 2 times a day, # 56 tablet, Refills 2, Tot. Refills 2, Maintenance, 04/21/23 18:37:00 EST, Route to Pharmacy Electronically, [facility]/pharmacy #[id number], 183, cm, 03/28/23 11:43:00 EST, [...] tablet, 2 Refills, Maintenance, 04/27/23 13:02:00 EST, [facility] 57558, 183, cm, 03/28/23 11:43:00 EST, Height, 71.3, kg, 08/08/21 0:23:00 EDT, Dry Weight Start Date: 04/27/23 Status: Ordered isosorbide mononitrate 60 mg oral tablet, extended release 1 tablet, By Mouth, Daily in AM, # 28 tablet, 5 Refills, Maintenance, 04/21/23 18:37:00 EST, [facility]/pharmacy #[id number], 183, cm, 03/28/23 11:43:00 EST, [...] tablet, 3 Refills, Maintenance, 08/24/19 15:40:00 [id number], [facility], 05/25/19 15:06:00 EST, Height, 88.3, kg, 08/31/17 3:30:00 EDT, Dry Weight Start Date: 08/24/19 Stop Date: 12/22/19 Status: Ordered oxyCODONE 30 mg oral tablet 2 tablet = 60 mg, By Mouth, Every 3 hours, BOND RUNNER checked., # 112 tablet, 0 Refills, Maintenance, 05/24/23 16:36:00 EST, [id number] 7 days as needs testing performed partial fill upon request;,183, cm, 05/10/23 11:59:00 EST, Height, 71.3, kg,... Start Date: 05/24/23 Stop Date: 05/31/23 Status: Ordered oxyCODONE 30 mg oral tablet 2 tablet = 60 mg, By Mouth, Every 3 hours, BOND RUNNER checked., # 112 tablet, 0 Refills, Maintenance, 05/10/23 13:38:00 EST, [facility]/pharmacy #[id number], may partial [...] Start Date: 11/30/22 Status: Ordered Potassium Chloride (Kdr-[id number]-Uvk 10) 10 mEq oral tablet, extended release See Instructions, TAKE 2 TABLETS BY MOUTH EVERY MORNING AND TAKE 1 TABLET EVERY EVENING, # 84 tablet, 2 Refills, Maintenance, 04/27/23 13:02:00 EST, [facility], 183, cm, 03/28/23 11:43:00 EST, Height, 71.3, kg, 08/08/21 0:23:00 EDT, Dry Weight Start Date: 04/27/23 Status: Ordered sertraline 100 mg oral tablet 1 tablet, By Mouth, Daily, # 28 tablet, 5 Refills, Maintenance, 06/09/22 8:26:00 EST, [facility], 183, cm, 03/16/22 8:31:00 EDT, Height, 71.3, kg, 08/08/21 0:23:00 EDT, Dry Weight Start Date: 06/09/22 Status: Ordered sertraline 100 mg oral tablet See Instructions, TAKE 1 TABLET BY MOUTH EVERY DAY, # 28 tablet, 5 Refills, Maintenance, 11/30/22 15:39:00 EDT, [facility], 183, cm, 10/08/22 16:18:00 EDT, Height, 71.3, kg, 08/08/21 0:23:00 EDT, Dry Weight Start Date: 11/30/22 Status: Ordered spironolactone 25 mg oral tablet 1, tablet, By Mouth, Daily, # 28 tablet, Refills 4, Maintenance, 07/08/22 11:30:00 EST, Route to Pharmacy Electronically, [facility], 183, cm, 03/16/22 8:31:00 EDT, Height, 71.3, kg, 08/08/21 0:23:00 EDT, Dry Weight Start Date: 07/08/22 Status: Ordered spironolactone 25 mg oral tablet See Instructions, TAKE 1 TABLET BY MOUTH EVERY DAY, # 28 tablet, Refills 4, Maintenance, 11/30/22 15:38:00 EDT, Instructions Replace Required Details, Route to Pharmacy Electronically, [facility] 09348, 183, cm, 10/08/22 16:18:00 EDT, Height, 71.3, kg,... Start Date: 11/30/22 Status: Ordered sucralfate 1 gm oral tablet 1, tablet, By Mouth, 3 times a day before meals, AND BEDTIME., # 112 tablet, Refills 5, Maintenance, 02/04/23 16:32:00 EDT, Route to Pharmacy Electronically, [facility] 98[facility], 183, cm, 10/08/22 16:18:00 EDT, Height, 71.3, kg, 08/08/21 0:23:00 EDT, Dry... Start Date: 02/04/23 Status: Ordered Vitamin B-12 1000 mcg oral tablet 1, tablet, By Mouth, Daily, # 28 tablet, Refills 11, Tot. Refills 11, Maintenance, 04/21/23 18:37:00 EST, Route to Pharmacy Electronically, [facility]/pharmacy #[id number], 183, cm, 03/28/23 11:43:00 EST, [...] Team Personnel Name: Irish Samuel RN Position: [facility] RN Member Role: Primary Care Nurse Name: Mireya Ramsey Position: [facility] RN Supv Member Role: Primary Care Nurse Name: Rhea Betancur RN Position: [facility] SN RN Member Role: Primary Care Nurse Name: Hugo Ayala RN Position: [facility] RN Member Role: Primary Care Nurse Name: Lorna Faust RN Position: [facility] RN Member Role: Primary Care Nurse Name: David Gonzalez MD Position: [facility] Renal MD Member Role: Lifetime Consulting Physician Address: Address: [address] [place] [address] [address] [facility] [place] [address]- [place] Name: Hannah Garcia NP Position: [facility] PCO Associate Professional Member Role: PCP Address: Address: [address] [place] [address], [address] [place] [address]- [place] Name: Eduin Arias MD Position: [facility] Renal MD Member Role: Lifetime Consulting Physician Address: Address: [address] [place] [address], [address] [place] [address]- [place] Name: Ana Herrera RN Position: [facility] RN Member Role: Primary Care Nurse Name: Cadence Quach RN Position: [facility] OB RN Member Role: Primary Care Nurse Name: Maggy Tsang RN Position: [facility] RN Member Role: Primary Care Nurse Name: Keyla Keys RN Position: [facility] SN RN Member Role: Primary Care Nurse Name: Марина Guevara RN Position: [facility] SN RN Member Role: Primary Care Nurse Name: Lyn Helms RN Position: [facility] RN Member Role: Primary Care Nurse Name: Tatum Biswas RN Position: [facility] RN Member Role: Primary Care Nurse Name: Hugo Bateman RN Position: [facility] RN Member Role: Primary Care Nurse Name: Petros Levy RN Position: [facility] RN Member Role: Primary Care Nurse Name: Izabella Braun RN Position: [facility] RN Member Role: Primary Care Nurse Name: Lyndsay King RN Position: [facility] RN Member Role: Primary Care Nurse Name: Hafsa Goyal RN Position: [facility] RN Member Role: Primary Care Nurse Name: Rosalio Jack RN Position: [facility] RN Member Role: Primary Care Nurse Name: Carmela Houser RN Position: [facility] SN RN Member Role: Primary Care Nurse Name: Michael Dickson RN Position: [facility] RN Member Role: Primary Care Nurse Name: Jessica Lema RN Position: [facility] RN Member Role: Primary Care Nurse Name: Phu Flynn MD Position: [facility] Renal MD Member Role: Lifetime Consulting Physician Address: Address: [address] [place] [address] [facility] [address] Name: Yesica Serna RN Position: [facility] OB RN Member Role: Primary Care Nurse Name: Jesusita Lou RN Position: [facility] OB RN Member Role: Primary Care Nurse Name: Husam Elizalde RN Position: [facility] RN Member Role: Primary Care Nurse Name: Marshall Byrd RN Position: [facility] RN Member Role: Primary Care Nurse Care Team Related Persons Name: DUTCH MAR Address: [place] [address] Name: ALL AYERS Address: [address] [place] [address] Name: ALL MANZANARES Address: [address] [place] [address] Name: CHRISTEN GRIMALDO Address: [address] [place] [address]
--- OUTSIDE RECORDS SUMMARY | 2023-11-18 12:38 | XMS_ITS | Continuity of Care Document ---
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 Name Role Phone Radha ODONNELL, Hannah Primary Care Physician [phone] Encounter [facility] Date(s): 05/10/23 - 06/09/23 [facility] Adult [address] [place] [id number]- Attending Physician: AdmCaroline barreto Admitting Physician: AdmtrCaroline [...] 01/09/23 7:22:00 EDT, Route to Pharmacy Electronically, [facility] [id number], 183, cm, 10/08/22 16:18:00 EDT, Height, 71.3, kg, 08/08/21 0:23:00 EDT, Dry Weight Start Date: 01/09/23 Status: Ordered amLODIPine 5 mg oral tablet 1 tablet, By Mouth, Daily, # 28 tablet, 5 Refills, Maintenance, 11/25/22 16:21:00 EDT, [facility] [id number], 183, cm, 10/08/22 16:18:00 EDT, Height, 71.3, kg, 08/08/21 0:23:00 EDT, Dry Weight Start Date: 11/25/22 Status: Ordered atorvastatin 40 mg oral tablet 1 tablet, By Mouth, Daily, # 28 tablet, 2 Refills, Maintenance, 01/09/23 7:23:00 EDT, [facility] 97908, 183, cm, 10/08/22 16:18:00 EDT, Height, 71.3, [...] tablet, 5 Refills, Maintenance, 04/21/23 18:36:00 EST, [facility]/pharmacy#[id number], 1 tablet By Mouth Daily,x28 days, 183, cm, 03/28/23 11:43:00 EST, Height, 71.3, kg, :23:00 EDT, Dry Weight Start Date: 04/21/23 Stop Date: 10/06/23 Status: Ordered carvedilol 12.5 mg oral tablet 1, tablet, By Mouth, 2 times a day, # 56 tablet, Refills 5, Maintenance, 11/25/22 16:22:00 EDT, Route to Pharmacy Electronically, [facility] 02522, 183, cm, 10/08/22 16:18:00 EDT, Height, 71.3, [...] 3 Refills, Maintenance, 03/20/23 8:29:00 EST, Capsule, [facility]/pharmacy #[id number], Partial fill upon patient request, [...] tablet, 6 Refills, [facility] 54897, 183, cm, 08/12/21 14:20:00 EDT, Height, 71.3, [...] tablet, 2 Refills, Maintenance, 04/27/23 13:02:00 EST, [facility] 70174, 183, cm, 03/28/23 11:43:00 EST, Height, 71.3, kg, 08/08/21 0:23:00 EDT, Dry Weight Start Date: 04/27/23 Status: Ordered isosorbide mononitrate 60 mg oral tablet, extended release 1 tablet, By Mouth, Daily in AM, # 28 tablet, 5 Refills, Maintenance, 04/21/23 18:37:00 EST, [facility]/pharmacy #[id number], 183, cm, 03/28/23 [...] 1-2 tablet, By Mouth, Every 3 hours, [employer] 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 fill 06/08/23, # 98 tablet, 0 Refills, Maintenance, 06/07/23 16:16:00 EST, [facility]/pharmacy #[id number], may partial fill upon request;, 183, cm, 05/10/23 11:59:00 EST, Height, 71.3, kg, 08/08/21 0:23:00 EDTDr... Start Date: 06/07/23 Stop Date: 06/14/23 Status: [...] Start Date: 11/30/22 Status: Ordered Potassium Chloride (Ngj-Ismz-Ayp 10) 10 mEq oral tablet, extended release See Instructions, TAKE 2 TABLETS BY MOUTH EVERY MORNING AND TAKE 1 TABLET EVERY EVENING, # 84 tablet, 2 Refills, Maintenance, 04/27/23 13:02:00 EST, [facility], 183, cm, 03/28/23 11:43:00 EST, Height, 71.3, kg, 08/08/21 0:23:00 EDT, Dry Weight Start Date: 04/27/23 Status: Ordered sertraline 100 mg oral tablet 1 tablet, By Mouth, Daily, # 28 tablet, 5 Refills, Maintenance, 06/09/22 8:26:00 EST, [facility] 89828, 183, cm, 03/16/22 8:31:00 EDT, Height, 71.3, kg, 08/08/21 0:23:00 EDT, Dry Weight Start Date: 06/09/22 Status: Ordered sertraline 100 mg oral tablet See Instructions, TAKE 1 TABLET BY MOUTH EVERY DAY, # 28 tablet, 5 Refills, Maintenance, 11/30/22 15:39:00 EDT, [facility], 183, cm, 10/08/22 16:18:00 EDT, Height, 71.3, kg, 08/08/21 0:23:00 EDT, Dry Weight Start Date: 11/30/22 Status: Ordered spironolactone 25 mg oral tablet 1, tablet, By Mouth, Daily, # 28 tablet, Refills 4, Maintenance, 07/08/22 11:30:00 EST, Route to Pharmacy Electronically, [facility], 183, cm, 03/16/22 8:31:00 EDT, Height, 71.3, kg, 08/08/21 0:23:00 EDT, Dry Weight Start Date: 07/08/22 Status: Ordered spironolactone 25 mg oral tablet See Instructions, TAKE 1 TABLET BY MOUTH EVERY DAY, # 28 tablet, Refills 4, Maintenance, 11/30/22 15:38:00 EDT, Instructions Replace Required Details, Route to Pharmacy Electronically, [facility] 64398, 183, cm, 10/08/22 16:18:00 EDT, Height, 71.3, kg,... Start Date: 11/30/22 Status: Ordered sucralfate 1 gm oral tablet 1, tablet, By Mouth, 3 times a day before meals, AND BEDTIME., # 112 tablet, Refills 5, Maintenance, 02/04/23 16:32:00 EDT, Route to Pharmacy Electronically, [facility] 56929, 183, cm, 10/08/22 16:18:00 EDT, Height, 71.3, [...] artery disease by Rolando Rubin M.D. at [facility]. 4In the past; states this [...] Team Personnel Name: Irish Samuel RN Position: [facility] RN Member Role: Primary Care Nurse Name: Mireya Ramsey Position: [facility] RN Supv Member Role: Primary Care Nurse Name: Rhea Betancur RN Position: [facility] SN RN Member Role: Primary Care Nurse Name: Hugo Ayala RN Position: [facility] RN Member Role: Primary Care Nurse Name: Lorna Faust RN Position: [facility] RN Member Role: Primary Care Nurse Name: David Gonzalez MD Position: [facility] Renal MD Member Role: Lifetime Consulting Physician Address: Address: [address] [place] [address] [address] [place] [address]- [place] Name: Hannah Garcia NP Position: [facility] PCO Associate Professional Member Role: PCP Address: Address: [address] [place] [address], [address] [place] [address]- [place] Name: Eduin Arias MD Position: [facility] Renal MD Member Role: Lifetime Consulting Physician Address: Address: [address] [place] [address], [address] [place] [address]- [place] Name: Ana Herrera RN Position: [facility] AMB Nurse Member Role: Primary Care Nurse Name: Carlos Montez RN Position: [facility] Outreach Member Role: Primary Care Nurse Name: Cadence Quach RN Position: [facility] OB RN Member Role: Primary Care Nurse Name: Maggy Tsang RN Position: [facility] RN Member Role: Primary Care Nurse Name: Keyla Keys RN Position: [facility] SN RN Member Role: Primary Care Nurse Name: Марина Guevara RN Position: [facility] RN Member Role: Primary Care Nurse Name: Lyn Helms RN Position: [facility] RN Member Role: Primary Care Nurse Name: Tatum Biswas RN Position: [facility] RN Member Role: Primary Care Nurse Name: Hugo Bateman RN Position: [facility] RN Member Role: Primary Care Nurse Name: Petros Levy RN Position: [facility] RN Member Role: Primary Care Nurse Name: Izabella Braun RN Position: [facility] RN Member Role: Primary Care Nurse Name: Lyndsay King RN Position: [facility] RN Member Role: Primary Care Nurse Name: Hafsa Goyal RN Position: [facility] RN Member Role: Primary Care Nurse Name: Rosalio Jack RN Position: [facility] RN Member Role: Primary Care Nurse Name: Carmela Houser RN Position: [facility] SN RN Member Role: Primary Care Nurse Name: Michael Dickson RN Position: S RN Member Role: Primary Care Nurse Name: Jessica Lema RN Position: [facility] RN Member Role: Primary Care Nurse Name: Phu Flynn MD Position: [facility] Renal MD Member Role: Lifetime Consulting Physician Address: Address: [address] [place] [address] [facility] [address] Name: Yesica Serna RN Position: [facility] OB RN Member Role: Primary Care Nurse Name: Jesusita Lou RN Position: [facility] OB RN Member Role: Primary Care Nurse Name: Husam Elizalde RN Position: [facility] RN Member Role: Primary Care Nurse Name: Marshall Byrd RN Position: [facility] RN Member Role: Primary Care Nurse Care Team Related Persons Name: ZAID DUTCH Address: [place] [address] Name: ALL AYERS Address: [address] [place] [address] Name: ALL MANZANARES Address: home [address] [place] [address] Name: CHRISTEN GRIMALDO Address: [address] [place] [address]
--- OUTSIDE RECORDS SUMMARY | 2023-11-18 12:38 | XMS_ITS | Continuity of Care Document ---
Author Organization 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 Adult [address] [place] [id number]- Allergies, Adverse Reactions, Alerts Substance Reaction Severity [...] 07/08/22 11:30:00 EST, Route to Pharmacy Electronically, [facility] 600[facility], 183, cm, 03/16/22 8:31:00 EDT, Height, 71.3, kg, 08/08/21 0:23:00 EDT, Dry Weight Start Date: 07/08/22 Status: Ordered amLODIPine 5 mg oral tablet 1 tablet, By Mouth, Daily, # 28 tablet, 4 Refills, Maintenance, 04/13/22 11:43:00 EST, [facility] 27422, 183, cm, 03/16/22 8:31:00 EDT, Height, 71.3, kg, 08/08/21 0:23:00 EDT, Dry Weight Start Date: 04/13/22 Status: Ordered atorvastatin 40 mg oral tablet 1 tablet, By Mouth, Daily, # 28 tablet, 5 Refills, Maintenance, 07/08/22 11:30:00 EST, [facility] 38060, 183, cm, 03/16/22 8:31:00 EDT, Height, 71.3, kg, 08/08/21 0:23:00 EDT, Dry Weight Start Date: 07/08/22 Status: Ordered buPROPion 150 mg/24 hours (XL) oral tablet, extended release See Instructions, TAKE 1 TABLET BY MOUTH EVERY 24 HOURS, # 28 tablet, 5 Refills, 03/18/22 11:05:00 EDT, [facility]/pharmacy #[id number], 28, TAKE 1 TABLET BY MOUTH EVERY 24 HOURS, 183, cm, 03/16/22 8:31:00 EDT, Height, 71.3, kg, 08/08/21 0:23:00 EDT, Dry Weight Start Date: 03/18/22 Status: Ordered buPROPion 150 mg/24 hours (XL) oral tablet, extended release 1 tablet, By Mouth, Every 24 hours, # 28 tablet, 2 Refills, [facility] 21480, 28, TAKE 1 TABLET BY MOUTH EVERY 24 HOURS, 183, cm, 08/12/21 14:20:00 EDT, Height, 71.3, kg, 08/08/21 0:23:00 EDT, Dry Weight Start Date: 09/25/21 Status: Ordered carvedilol 12.5 mg oral tablet 1, tablet, By Mouth, 2 times a day, # 56 tablet, Refills 5, Route to Pharmacy Electronically, [facility] 84496, 183, cm, 05/04/21 3:09:00 EST, Height, 81.7, kg, 04/16/21 3:06:00 EST, Dry Weight Start Date: 07/07/21 Status: Ordered carvedilol 12.5 mg oral tablet See Instructions, TAKE 1 TABLET BY MOUTH TWICE A DAY, # 56 tablet, Refills 5, Tot. Refills 5, 03/18/22 11:05:00 EDT, Instructions Replace Required Details, Route to Pharmacy Electronically, [facility]/pharmacy #[id number], 183, cm, 03/16/22 8:31:00 EDT, Height, 71... Start Date: 03/18/22 Status: Ordered clopidogrel 75 mg oral tablet 1, tablet, By Mouth, Daily, # 28 tablet, Refills 5, Route to Pharmacy Electronically, [facility] 43019, 183, cm, 05/04/21 3:09:00 EST, Height, 81.7, kg, 04/16/21 3:06:00 EST, Dry Weight Start Date: 07/02/21 Status: Ordered clopidogrel 75 mg oral tablet 75 mg, 1, tablet, By Mouth, Daily, for 30 days, # 30 tablet, Refills 5, Tot. Refills 5, Physician Stop 09/14/22 13:18:00 EDT, 03/18/22 13:18:00 EDT, Route to Pharmacy Electronically, [facility]/pharmacy #[id number], 183, cm, 03/16/22 8:31:00 EDT, Height, 71.3, kg,... Start Date: 03/18/22 Stop Date: 09/14/22 Status: Ordered Eliquis 5 mg oral tablet See Instructions, TAKE 1 TABLET BY MOUTH TWICE A DAY, # 56 tablet, 6 Refills, Maintenance, 05/14/2216:30:00 EST, [facility] 305[facility], 183, cm, 03/16/22 8:31:00 EDT, Height, 71.3, kg, 08/08/21 0:23:00 EDT, Dry Weight Start Date: 05/14/22 Status: Ordered Eliquis 5 mg oral tablet 1 tablet, By Mouth, 2 times a day, # 56 tablet, 6 Refills, [facility] 57013, 183, cm, 08/12/21 14:20:00 EDT, Height, 71.3, kg, 08/08/21 0:23:00 EDT, Dry Weight Start Date: 09/26/21 Status: Ordered furosemide 40 mg oral tablet 1, tablet, By Mouth, 2 times a day, # 56 tablet, Refills 2, Maintenance, 07/08/22 11:30:00 EST, Route to Pharmacy Electronically, [facility] 69811, 183, cm, 03/16/22 8:31:00 EDT, Height, 71.3, kg, 08/08/21 0:23:00 EDT, Dry Weight Start Date: 07/08/22 Status: Ordered hydrALAZINE 50 mg oral tablet 1 tablet, By Mouth, 3 times a day, # 84 tablet, 1 Refills, Maintenance, 06/09/22 9:19:00 EST, [facility] 00862, 183, cm, 03/16/22 8:31:00 EDT, Height, 71.3, kg, 08/08/21 0:23:00 EDT, Dry Weight Start Date: 06/09/22 Status: Ordered isosorbide mononitrate 60 mg oral tablet, extended release 1 tablet, By Mouth, Daily in AM, # 28 tablet, 4 Refills, Maintenance, 04/13/22 11:43:00 EST, [facility] 800[facility], 183, cm, 03/16/22 8:31:00 EDT, Height, 71.3, [...] mg, By Mouth, Every 3 hours, [employer] CONS[employer] checked. fill on 07/05/22, # 224 tablet, 0 Refills, Maintenance, 07/16/22 9:50:00 EST, [id number], may partial fill upon request; fill 07/19/2022, 183, cm, 03/16/22 8:31:00 EDT, Height, 71.3, kg, 03... Start Date: 07/16/22 Stop Date: 07/30/22 Status: Ordered pantoprazole 40 mg oral delayed release tablet 1 tablet, By Mouth, Daily, # 28 tablet, 4 Refills, Maintenance, 07/08/22 11:30:00 EST, 183, cm, 03/16/22 8:31:00 EDT, Height, 71.3, kg, 08/08/21 0:23:00 EDT, Dry Weight Start Date: 07/08/22 Status: Ordered Potassium Chloride (Gpv-Stlm-Njj 10) 10 mEq oral tablet, extended release See Instructions, TAKE 2 TABLETS BY MOUTH EVERY MORNING AND TAKE 1 TABLET EVERY EVENING, # 84 tablet, 2 Refills, Maintenance, 06/09/22 9:19:00 EST, [facility] 88465, 183, cm, 03/16/22 8:31:00 EDT, Height, 71.3, kg, 08/08/21 0:23:00 EDT, Dry Weight Start Date: 06/09/22 Status: Ordered sertraline 100 mg oral tablet 1 tablet, By Mouth, Daily, # 28 tablet, 5 Refills, Maintenance, 06/09/22 8:26:00 EST, [facility] 426[facility], 183, cm, 03/16/22 8:31:00 EDT, Height, 71.3, kg, 08/08/21 0:23:00 EDT, Dry Weight Start Date: 06/09/22 Status: Ordered spironolactone 25 mg oral tablet 1, tablet, By Mouth, Daily, # 28 tablet, Refills 4, Maintenance, 07/08/22 11:30:00 EST, Route to Pharmacy Electronically, [facility] 99470, 183, cm, 03/16/22 8:31:00 EDT, Height, 71.3, kg, 08/08/21 0:23:00 EDT, Dry Weight Start Date: 07/08/22 Status: Ordered sucralfate 1 gm oral tablet 1, tablet, By Mouth, 3 times a day before meals, AND BEDTIME., # 112 tablet, Refills 2, Maintenance, 05/18/22 8:37:00 EST, Route to Pharmacy Electronically, [facility] 355[facility], 183, cm, 03/16/22 8:31:00EDT, Height, 71.3, kg, 08/08/21 0:23:00 EDT, Dry We... Start Date: 05/18/22 Status: Ordered Vitamin B-12 1000 mcg oral tablet See Instructions, TAKE 1 TABLET BY MOUTH EVERY DAY, # 28 tablet, Refills 5, Maintenance, 05/14/22 16:30:00 EST, Instructions Replace Required Details, Route to Pharmacy Electronically, [facility] 110[facility], 183, cm, 03/16/22 8:31:00 EDT, Height, 71.3, kg,... Start Date: 05/14/22 Status: Ordered Vitamin B-12 1000 mcg oral tablet 1, tablet, By Mouth, Daily, # 28 tablet, Refills 5, Route to Pharmacy Electronically, [facility] 6[facility]60, 183, cm, 08/12/21 14:20:00 EDT, Height, 71.3, [...] disease by Rolando Rubin M.D. at [facility]. 4In the past; states this has resolved Social History Social History Type Response Smoking Status Never smoker entered on: 08/24/16 Sex Patient Care team information Care Team Personnel Name: Irish Samuel RN Position: [facility] RN Member Role: Primary Care Nurse Name: Mireya Ramsey Position: [facility] RN Supv Member Role: Primary Care Nurse Name: Rhea Betancur RN Position: [facility] SN RN Member Role: Primary Care Nurse Name: Hugo Ayala RN Position: [facility] RN Member Role: Primary Care Nurse Name: Lorna Faust RN Position: [facility] RN Member Role: Primary Care Nurse Name: Wilner Feliciano RN Position: [facility] RN Supv Member Role: Primary Care Nurse Name: David Gonzalez MD Position: [facility] Renal MD Member Role: Lifetime Consulting Physician Address: Address: [address] [place] [address], [address] [facility] [place] [address]- [place] Name: Hannah Garcia NP Position: [facility] PCO Associate Professional Member Role: PCP Address: Address: [address] [place] [address], 3[address] [place] [address]- [place] Name: Eduin Arias MD Position: [facility] Physician (General Medicine) Member Role: Lifetime Consulting Physician Address: Address: [address] [place] [address], [address] [place] [address]- [place] Name: Ana Herrera RN Position: [facility] RN Member Role: Primary Care Nurse Name: Carlos Montez RN Position: [facility] RN Member Role: Primary Care Nurse Name: Cadence Quach RN Position: [facility] OB RN Member Role: Primary Care Nurse Name: Maggy Tsang RN Position: [facility] RN Member Role: Primary Care Nurse Name: Keyla Keys RN Position: [facility] SN RN Member Role: Primary Care Nurse Name: Марина Guevara RN Position: [facility] RN Member Role: Primary Care Nurse Name: Lyn Helms RN Position: [facility] RN Member Role: Primary Care Nurse Name: Tatum Biswas RN Position: [facility] RN Member Role: Primary Care Nurse Name: Hugo Bateman RN Position: [facility] ED RN W/OE and Tasks Member Role: Primary Care Nurse Name: Petros Levy RN Position: [facility] RN Member Role: Primary Care Nurse Name: Charly Burns RN Position: [facility] RN Member Role: Primary Care Nurse Name: Izabella Braun RN Position: [facility] RN Member Role: Primary Care Nurse Name: Lyndsay King RN Position: [facility] RN Member Role: Primary Care Nurse Name: Felicia Kerr RN Position: [facility] RN Member Role: Primary Care Nurse Name: Hafsa Goyal RN Position: [facility] RN Member Role: Primary Care Nurse Name: Rosalio Jack RN Position: [facility] RN Member Role: Primary Care Nurse Name: Geovanna Hill RN Position: [facility] RN Member Role: Primary Care Nurse Name: Carmela Houser RN Position: [facility] SN RN Member Role: Primary Care Nurse Name: Michael Dickson RN Position: [facility] RN Member Role: Primary Care Nurse Name: Jessica Lema RN Position: [facility] RN Member Role: Primary Care Nurse Name: Phu Flynn MD Position: [facility] Renal MD Member Role: Lifetime Consulting Physician Address: Address: [address] [place] [address] [facility] [address] Name: Yesica Serna RN Position: [facility] OB RN Member Role: Primary Care Nurse Name: Jesusita Lou RN Position: [facility] OB RN Member Role: Primary Care Nurse Name: Karen Quach RN Position: [facility] PCO w/OE and EZ Script Member Role: Primary Care Nurse Name: Marshall Byrd RN Position: [facility] RN Member Role: Primary Care Nurse Care Team Related Persons Name: DUTCH MAR Address: [place], [place] Name: ALL AYERS Address: home [address], [place] Name: ALL MANZANARES Address: home [address] [place], [place] Name: CHRISTEN GRIMALDO Address: home [address] [place], [place]
--- OUTSIDE RECORDS SUMMARY | 2023-11-18 12:38 | XMS_ITS | Continuity of Care Document ---
Author Organization [facility] Address [address] [place] [address]- Care Team Providers Care Code And Test Clerk Name Role Phone Radha ODONNELL, Hannah Primary Care Physician Encounter [facility] Date(s): 04/15/23 - 05/15/23 [facility] [address] [place] [id number]- Allergies, Adverse Reactions, Alerts Substance Reaction Severity [...] 01/09/23 7:22:00 EDT, Route to Pharmacy Electronically, [id number], 183, cm, 10/08/22 16:18:00 EDT, Height, 71.3, kg, 08/08/21 0:23:00 EDT, Dry Weight Start Date: 01/09/23 Status: Ordered amLODIPine 5 mg oral tablet 1 tablet, By Mouth, Daily, # 28 tablet, 5 Refills, Maintenance, 11/25/22 16:21:00 EDT, [facility], 183, cm, 10/08/22 16:18:00 EDT, Height, 71.3, kg, 08/08/21 0:23:00 EDT, Dry Weight Start Date: 11/25/22 Status: Ordered atorvastatin 40 mg oral tablet 1 tablet, By Mouth, Daily, # 28 tablet, 2 Refills, Maintenance, 01/09/23 7:23:00 EDT, [id number], 183, cm, 10/08/22 16:18:00 EDT, Height, 71.3, [...] EDT, Route to Pharmacy Electronically, [id number], 183, cm, 10/08/22 16:18:00 EDT, Height, 71.3, [...] EDT, Route to Pharmacy Electronically, [id number], 183, cm, 03/16/22 8:31:00 EDT, Height, 71.3, [...] 6 Refills, Maintenance, 05/14/2216:30:00 EST, [facility], 183, cm, 03/16/22 8:31:00 EDT, Height, 71.3, kg, 08/08/21 0:23:00 EDT, Dry Weight Start Date: 05/14/22 Status: Ordered Eliquis 5 mg oral tablet 1 tablet, By Mouth, 2 times a day, # 56 tablet, 6 Refills, [facility], 183, cm, 08/12/21 14:20:00 EDT, Height, 71.3, kg, 08/08/21 0:23:00 EDT, Dry Weight Start Date: 09/26/21 Status: Ordered Eliquis 5 mg oral tablet See Instructions, TAKE 1 TABLET BY MOUTH TWICE A DAY, # 56 tablet, 6 Refills, Maintenance, 11/30/2314:39:00 EDT, [facility], 183, cm, 10/08/22 16:18:00 EDT, Height, 71.3, kg, 08/08/21 0:23:00 EDT, Dry Weight Start Date: 11/30/22 Status: Ordered furosemide 40 mg oral tablet 1, tablet, By Mouth, 2 times a day, # 56 tablet, Refills 2, Tot. Refills 2, Maintenance, 04/21/23 18:37:00 EST, Route to Pharmacy Electronically, [facility]/pharm[facility] #[id number], 183, cm, 03/28/23 11:43:00 EST, Height, [...] 2 Refills, Maintenance, 04/27/23 13:02:00 EST, [id number], 183, cm, 03/28/23 11:43:00 EST, Height, 71.3, kg, 08/08/21 0:23:00 EDT, Dry Weight Start Date: 04/27/23 Status: Ordered isosorbide mononitrate 60 mg oral tablet, extended release 1 tablet, By Mouth, Daily in AM, # 28 tablet, 5 Refills, Maintenance, 04/21/23 18:37:00 EST, [facility]/pharmacy #[id number], 183, cm, 03/28/23 11:43:00 EST, Height, 71.3, kg, 08/08/21 0:23:00 EDT, Dry Weight Start Date: 04/21/23 Stop Date: 10/06/23 Status: Ordered Mylanta Maximum Strength oral suspension 5 mL, By Mouth, 4 times a day, PRN for control of stomach acid, # 200 mL, 1 Refills, Maintenance, 08/12/21 13:46:00 EDT, Suspension, [facility]/pharmacy #[id number], Partial fill upon patient request if the prescription is for a schedule II opioid drug., 5 mL By M... Start Date: 08/12/21 Status: Ordered Narcan 4 mg/0.1 mL nasal spray = 4 mg, Nares, Both, Once, may repeat every 2 to 3 minutes until patient responds, # 1 each, 0 Refills, Soft Stop, 05/14/23 10:41:00 EST, [facility]/pharmacy #[id number], Partial fill upon patient request if the prescription is for a schedule II opioid drug., 183,... Start Date: 05/14/23 Status: Ordered nitroglycerin 0.4 mg sublingual tablet 1 tablet = 0.4 mg, Sublingual, Every 5 minutes, PRN Chest Pain, # 25 tablet, 3 Refills, Maintenance, 08/24/19 15:40:00 EDT, [facility]/pharmacy #[id number], 183, cm, 05/25/19 15:06:00 EST, Height, 88.3, kg, 08/31/17 3:30:00 EDT, Dry Weight Start Date: 08/24/19 Stop Date: 12/22/19 Status: Ordered oxyCODONE 30 mg oral tablet 2 tablet = 60 mg, By Mouth, Every 3 hours, BOAT WASHER checked., # 112 tablet, 0 Refills, Maintenance, 05/10/23 13:38:00 EST, [facility]/pharmacy #[id number], may partial fill upon request;, 183, cm, 05/10/23 11:59:00 EST, Height, 71.3, kg, 08/08/21 0:23:00 EDT, Dry Weight Start Date: 05/10/23 Stop Date: 05/17/23 Status: Ordered oxyCODONE 30 mg oral tablet 2 tablet = 60 mg, By Mouth, Every 3 hours, BOAT WASHER checked. [email or web address] 03/28/23, # 112 tablet, 0 Refills, Maintenance, 03/28/23 7:01:00 EST, [facility]/pharmacy #[id number], 7 days as needs testing performed [...] Start Date: 11/30/22 Status: Ordered Potassium Chloride ([id number]-[id number] 10) 10 mEq oral tablet, extended release See Instructions, TAKE 2 TABLETS BY MOUTH EVERY MORNING AND TAKE 1 TABLET EVERY EVENING, # 84 tablet, 2 Refills, Maintenance, 04/27/23 13:02:00 EST, [facility], 183, cm, 03/28/23 11:43:00 EST, Height, 71.3, kg, 08/08/21 0:23:00 EDT, Dry Weight Start Date: 04/27/23 Status: Ordered sertraline 100 mg oral tablet 1 tablet, By Mouth, Daily, # 28 tablet, 5 Refills, Maintenance, 06/09/22 8:26:00 EST, [facility], 183, cm, 03/16/22 8:31:00 EDT, Height, 71.3, kg, 08/08/21 0:23:00 EDT, Dry Weight Start Date: 06/09/22 Status: Ordered sertraline 100 mg oral tablet See Instructions, TAKE 1 TABLET BY MOUTH EVERY DAY, # 28 tablet, 5 Refills, Maintenance, 11/30/22 15:39:00 EDT, [facility], 183, cm, 10/08/22 16:18:00 EDT, Height, 71.3, kg, 08/08/21 0:23:00 EDT, Dry Weight Start Date: 11/30/22 Status: Ordered spironolactone 25 mg oral tablet 1, tablet, By Mouth, Daily, # 28 tablet, Refills 4, Maintenance, 07/08/22 11:30:00 EST, Route to Pharmacy Electronically, [facility], 183, cm, 03/16/22 8:31:00 EDT, Height, 71.3, kg, 08/08/21 0:23:00 EDT, Dry Weight Start Date: 07/08/22 Status: Ordered spironolactone 25 mg oral tablet See Instructions, TAKE 1 TABLET BY MOUTH EVERY DAY, # 28 tablet, Refills 4, Maintenance, 11/30/22 15:38:00 EDT, Instructions Replace Required Details, Route to Pharmacy Electronically, [facility] [id number], 183, cm, 10/08/22 16:18:00 EDT, Height, 71.3, kg,... Start Date: 11/30/22 Status: Ordered sucralfate 1 gm oral tablet 1, tablet, By Mouth, 3 times a day before meals, AND BEDTIME., # 112 tablet, Refills 5, Maintenance, 02/04/23 16:32:00 EDT, Route to Pharmacy Electronically, [id number], 183, cm, 10/08/22 16:18:00 EDT, Height, 71.3, kg, 08/08/21 0:23:00 EDT, Dry... Start Date: 02/04/23 Status: Ordered Vitamin B-12 1000 mcg oral tablet 1, tablet, By Mouth, Daily, # 28 tablet, Refills 11, Tot. Refills 11, Maintenance, 04/21/23 18:37:00 EST, Route to Pharmacy Electronically, [facility]/pharmacy #[id number], 183, cm, 03/28/23 11:43:00 EST, Height,71.3, [...] by Rolando Rubin M.D. at [facility]. 4In the past; states this has resolved Social History Social History Type Response Smoking Status Never smoker entered on: 08/24/16 Sex Patient Care team information Care Team Personnel Name: Irish Samuel RN Position: [facility] RN Member Role: Primary Care Nurse Name: Mireya Ramsey Position: [facility] RN Supv Member Role: Primary Care Nurse Name: Rhea Betancur RN Position: [facility] SN RN Member Role: Primary Care Nurse Name: Hugo Ayala RN Position: [facility] RN Member Role: Primary Care Nurse Name: Lorna Faust RN Position: [facility] RN Member Role: Primary Care Nurse Name: David Gonzalez MD Position: [facility] Renal MD Member Role: Lifetime Consulting Physician Address: Address: [address] [place] [address] [address] [place] [address]- [place] Name: Hannah Garcia NP Position: [facility] PCO Associate Professional Member Role: PCP Address: Address: [address] [place] [address], [address] [place] [address]- [place] Name: Eduin Arias MD Position: [facility] Renal MD Member Role: Lifetime Consulting Physician Address: Address: [address] [place] [address], [address] [place] [address]- [place] Name: Ana Herrera RN Position: [facility] RN Member Role: Primary Care Nurse Name: Cadence Quach RN Position: [facility] OB RN Member Role: Primary Care Nurse Name: Maggy Tsang RN Position: S RN Member Role: Primary Care Nurse Name: Keyla Keys RN Position: [facility] SN RN Member Role: Primary Care Nurse Name: Марина Guevara RN Position: [facility] SN RN Member Role: Primary Care Nurse Name: Lyn Helms RN Position: [facility] RN Member Role: Primary Care Nurse Name: Tatum Biswas RN Position: [facility] RN Member Role: Primary Care Nurse Name: Hugo Bateman RN Position: [facility] RN Member Role: Primary Care Nurse Name: Petros Levy RN Position: [facility] RN Member Role: Primary Care Nurse Name: Izabella Braun RN Position: [facility] RN Member Role: Primary Care Nurse Name: Lyndsay King RN Position: [facility] RN Member Role: Primary Care Nurse Name: Felicia Kerr NP Position: [facility] Medical Student Member Role: Primary Care Nurse Name: Hafsa Goyal RN Position: [facility] RN Member Role: Primary Care Nurse Name: Rosalio Jack RN Position: [facility] RN Member Role: Primary Care Nurse Name: Carmela Houser RN Position: [facility] SN RN Member Role: Primary Care Nurse Name: Michael Dickson RN Position: [facility] RN Member Role: Primary Care Nurse Name: Jessica Lema RN Position: [facility] RN Member Role: Primary Care Nurse Name: Phu Flynn MD Position: [facility] Renal MD Member Role: Lifetime Consulting Physician Address: Address: [address] [place] [address] [facility] [address] Name: Yesica Serna RN Position: [facility] OB RN Member Role: Primary Care Nurse Name: Jesusita Lou RN Position: [facility] OB RN Member Role: Primary Care Nurse Name: Husam Elizalde RN Position: [facility] RN Member Role: Primary Care Nurse Name: Marshall Byrd RN Position: [facility] RN Member Role: Primary Care Nurse Care Team Related Persons Name: DUTCH MAR Address: home [place], [place] Name: ALL AYERS Address: home [address] [place], [place] Name: ALL MANZANARES Address: home [address], [place] Name: CHRISTEN GRIMALDO Address: home [address], [place]
[2023-11-18 12:48] LABS: MANUAL DIFF FLAG NO
[2023-11-18 12:51] LABS: Basophils Percent Auto 0.4 % (0-2); Eosinophils Absolute Auto 0.2 X10*3/uL (0.0-0.4); Eosinophils Percent Auto 3.7 % (0-4); Hematocrit 33.3 % (42.0-52.0); Hemoglobin 10.9 g/dl (14.0-18.0); Imm Gran Abs Auto 0.02 X10*3/uL (0.00-0.03); Imm Gran Pct Auto 0.4 % (0.0-0.4); Lymphocytes Absolute Auto 0.7 X10*3/uL (1.2-4.9); Lymphocytes Percent Auto 14.8 % (20-40); Mean Corpuscular HGB Conc 32.7 g/dl (31.0-36.0); Mean Corpuscular Hemoglobin 28.2 pg (27.0-33.0); Monocytes Absolute Auto 0.7 X10*3/uL (0.1-1.2); Neutrophils Percent Auto 65.7 % (45-73); Platelet Count 130 X10*3/uL (160-400); Red Blood Count 3.87 X10*6/uL (4.60-5.80); Red Cell Distribution Width 16.4 % (11.0-16.0); White Blood Count 4.6 X10*3/uL (4.8-10.8)
[2023-11-18 12:56] LABS: INTERNATIONAL NORM RATIO 2.2 (0.9-1.1); Prothrombin Time 26.9 SEC (11.1-13.3)
[2023-11-18 13:03] LABS: Alanine Aminotransferase 12 U/L (0-40); Albumin Level 4.1 g/dL (3.5-5.0); Alkaline Phosphatase 97 U/L (39-117); Anion Gap 14 (12-20); Aspartate Amino Transferase 7 U/L (5-37); Bilirubin Total 0.8 mg/dL (0.0-1.0); Blood Urea Nitrogen 55 mg/dL (9-16); Calcium 9.7 mg/dL (8.4-10.2); Carbon Dioxide 26 mmol/L (22-29); Chloride 104 mmol/L (96-108); Creatinine Clr Calc Pharmacy 32.7; Estimated Glomerular Filt Rate 29; Glucose Random 100 mg/dL (60-115); Potassium 4.8 mmol/L (3.3-5.1); Sodium 139 mmol/L (135-145); Total Protein 7.4 g/dL (6.5-8.0)
[2023-11-18 13:10] LABS: Troponin-I High Sensitivity 12.5 ng/L (<3.5-35.0)
--- NOTE | 2023-11-18 13:25 | ED.GENADULT ---
HPI - General Adult General Chief complaint: Fall Stated complaint: FELL FROM WHEELCHAIR HIT HEAD ON FLOOR Time Seen by Provider: 11/18/23 13:25 History of Present Illness ED Provider: Dr. Rubio HPI narrative: 68 y/o M patient; PMH atrial fibrillation on Eliquis, CKD, hx CVA, gout, HTN; presents reporting he fell out of wheelchair onto his head on TuesdayNovember 13. He did not lose consciousness. He now complains of generalized weakness. He denies: chest pain, SOB, cough/congestion, nausea/vomiting, abdominal pain, syncope, headache. He denies changes in PO intake. Related Data Home Medications ?Medication ?Instructions ?Recorded ?Confirmed allopurinol 100 mg tablet 100 mg PO DAILY 09/06/23 09/06/23 amlodipine 5 mg tablet 5 mg PO DAILY 09/06/23 09/06/23 apixaban 5 mg tablet (Eliquis) 5 mg PO BID 09/06/23 09/06/23 atorvastatin 40 mg tablet 40 mg PO DAILY 09/06/23 09/06/23 bupropion HCl 150 mg 24 hr tablet, 150 mg PO DAILY 09/06/23 09/06/23 extended release carvedilol 12.5 mg tablet 12.5 mg PO BID 09/06/23 09/06/23 cholecalciferol (vitamin D3) 1,250 1,250 mcg PO QWEEK 09/06/23 09/06/23 mcg (50,000 unit) capsule clonidine HCl 0.1 mg tablet 0.1 mg PO TID 09/06/23 09/06/23 clopidogrel 75 mg tablet 75 mg PO DAILY 09/06/23 09/06/23 cyanocobalamin (vitamin B-12) 1,000 mcg PO DAILY 09/06/23 09/06/23 1,000 mcg tablet furosemide 40 mg tablet 40 mg PO BID 09/06/23 09/06/23 hydralazine 50 mg tablet 50 mg PO TID 09/06/23 09/06/23 isosorbide mononitrate 60 mg 60 mg PO QAM 09/06/23 09/06/23 tablet,extended release 24 hr ondansetron HCl 4 mg tablet 4 mg PO Q8H PRN Nausea And Vomiting 09/06/23 09/06/23 pantoprazole 40 mg tablet,delayed 40 mg PO DAILY 09/06/23 09/06/23 release potassium chloride 10 mEq 10 meq PO BEDTIME 09/06/23 09/06/23 tablet,extended release potassium chloride 10 mEq 20 meq PO DAILY 09/06/23 09/06/23 tablet,extended release sertraline 100 mg tablet 100 mg PO DAILY 09/06/23 09/06/23 spironolactone 25 mg tablet 25 mg PO DAILY 09/06/23 09/06/23 sucralfate 1 gram tablet 1 g PO QIDACHS 09/06/23 09/06/23 Previous Rx's ?Medication ?Instructions ?Recorded lidocaine HCl 2 % mucosal solution 1 appl mucous membrane BID PRN 10/11/23 (Lidocaine Viscous) tooth pain #100 mL oxycodone 15 mg tablet 15 mg PO Q4H PRN pain #12 tabs 10/11/23 Allergies Allergy/AdvReac Type Severity Reaction Status Date / Time No Known Allergies Allergy Verified 11/18/23 11:51 Review of Systems Review of Systems: Yes all other systems are reviewed and are negative Neurologic: Denies Sensory deficit (Neuro) [facility] Past Medical History Attestation statement: The following information was validated with the patient. Source: old records reviewed Medical History Cognitive impairment Shoulder pain Pain in joint involving shoulder region JOSE ALEJANDRO (obstructive sleep apnea) OA (osteoarthritis) of knee Neuropathy of upper extremity Hypertension, renal disease Hyperlipidemia Gout Depression Degenerative joint disease (DJD) of lumbar spine CVA (cerebral vascular accident) Chronic pain syndrome Chronic kidney disease, stage 3b Atrial fibrillation Aortic aneurysm Surgical History Hx of CABG Social History Social History Household Members: Family Household Members Other:: grandson Housing: House Do you presently have visiting nurse or other home services: No Patient Tobacco Use Status: Never used Tobacco Smoked in Last 30 Days: No Use of substances other than those prescribed or required for medical reasons: No Substance Use Type: Marijuana Advance Directives: Yes Advance Directives on File: Yes Advance Directives Date on File: 09/06/23 service: No Physical Exam ED Vital Signs: Vital Signs - 24 hr 11/18/23 12:00 Temperature 98.3 F Pulse Rate 55 Respiratory Rate 10 L Blood Pressure 105/62 Pulse Oximetry 95 Oxygen Delivery Method Room Air BMI result Body Mass Index 22.5 Patient is afebrile and hemodynamically stable Const General: cooperative and no acute distress Orientation/consciousness: patient oriented x3 HENMT Head: Yes normal to inspection and Yes atraumatic Eyes General: appearance normal, both eyes and all related structures Pupils: Equal, round and reactive pupils present EOM: EOMs intact bilaterally Neck Neck: Yes normal visual inspection, Yes full ROM, Yes supple and No tender Chest Chest palpation & inspection: normal inspection of the chest and normal palpation of entire chest wall Resp Effort & Inspection: normal respiratory effort, able to speak in complete sentences, no cough and no respiratory distress Auscultation: clear to auscultation bilaterally Cardio Rate: regular rate Rhythm: regular rhythm Peripheral pulses: Peripheral pulses 2+ throughout GI Inspection: Yes normal to inspection, No Abdominal wall edema and No distended Palpation (GI): Soft to palpation, not firm, nontender, no guarding and not rigid Auscultation: normal bowel sounds Back/Spine/Pelvis Back: No back tenderness Skin Other: Healing skin tears to left elbow and left anterior contreras Neuro General: patient oriented x3 Cranial nerves: Yes Equal, round and reactive pupils present Motor exam (neuro): 5/5 motor strength present throughout Sensory Exam: No Sensory deficit (Neuro) Course Course Course Narrative: Patient is afebrile and hemodynamically stable. Labs reviewed. Mild baseline anemia. INR 2.2. Baseline mildly elevated troponin 12.5. Evidence of FEDERICO with Cr. 2.26, prior 1.41 (10/09/2023). Providing 1L IVF. CT Head and Cervical Spine unremarkable. Discussed with hospitalist admission for FEDERICO. Condition: Stable Medical Decision Making Lab Data 11/18/23 12:43 11/18/23 12:43 Labs: Lab Results 11/18/23 Range/Units 12:43 WBC 4.6 L (4.8-10.8) X10*3/uL RBC 3.87 L (4.60-5.80) X10*6/uL Hgb 10.9 L (14.0-18.0) g/dl Hct 33.3 L (42.0-52.0) % MCV 86.0 (80.0-98.0) fL MCH 28.2 (27.0-33.0) pg MCHC 32.7 (31.0-36.0) g/dl RDW 16.4 H (11.0-16.0) % Plt Count 130 L (160-400) X10*3/uL MPV 10.0 (9.4-12.4) fL Immature Gran % (Auto) 0.4 (0.0-0.4) % Neut % (Auto) 65.7 (45-73) % Lymph % (Auto) 14.8 L (20-40) % [place] % (Auto) 15.0 H (2-11) % Eos % (Auto) 3.7 (0-4) % Baso % (Auto) 0.4 (0-2) % Lymph # (Auto) 0.7 L (1.2-4.9) X10*3/uL [place] # (Auto) 0.7 (0.1-1.2) X10*3/uL Eos # (Auto) 0.2 (0.0-0.4) X10*3/uL Baso # (Auto) 0.0 (0.0-0.2) X10*3/uL Abs Immat Gran (auto) 0.02 (0.00-0.03) X10*3/uL Absolute Neuts (auto) 3.0 (2.0-8.3) x10*3/uL Absolute Nucleated RBC 0.000 (0.0-0.012) X10*3/uL Nucleated RBC % (auto) 0.0 (0.0-0.2) /100WBC PT 26.9 H D (11.1-13.3) SEC INR 2.2 H (0.9-1.1) Sodium 139 (135-145) mmol/L Potassium 4.8 D (3.3-5.1) mmol/L Chloride 104 (96-108) mmol/L Carbon Dioxide 26 (22-29) mmol/L Anion Gap 14 (12-20) BUN 55 H (9-16) mg/dL Creatinine 2.26 H (0.5-1.4) mg/dL Estim Creat Clear Calc 32.7 Estimated GFR 29 Random Glucose 100 (60-115) mg/dL Calcium 9.7 (8.4-10.2) mg/dL Total Bilirubin 0.8 (0.0-1.0) mg/dL AST 7 (5-37) U/L ALT 12 (0-40) U/L Alkaline Phosphatase 97 (39-117) U/L Troponin I High Sens 12.5 (<3.5-35.0) ng/L Total Protein 7.4 (6.5-8.0) g/dL Albumin 4.1 (3.5-5.0) g/dL Lipase 14 (8-78) U/L Radiology Impression Discussion of test interpretation with radiology: I have reviewed the radiologist's reading. Radiologist Impression: EXAMINATION: CT HEAD WITHOUT CONTRAST CT CERVICAL SPINE WITHOUT CONTRAST CLINICAL INFORMATION: Status post fall with neck and hand pain COMPARISON: CT head from 09/09/2023 TECHNIQUE: CT of the head and cervical spine were performed without intravenous contrast. Multiplanar reformats were rendered and reviewed. This CT examination was performed using dose optimization techniques as appropriate, variously including the following: *Automated exposure control *Adjustment of mA and/or kV according to patient size (this includes techniques or standardized protocols for targeted exams where dose is matched to indication/reason for exam; i.e. extremities or head) *Use of iterative reconstruction technique DLP: 529.58 mGy-, for the cervical spine and 617.39 mGy-cm per the brain FINDINGS: CT head: No intracranial hemorrhage, large infarction, or mass lesion is seen. There is chronic anterior encephalomalacia in the right occipital lobe consistent with remote occipital stroke. No extra-axial collection is appreciated. There are patchy periventricular white matter changes as a sequela of microangiopathy. Ventricles, sulci and cisterns are prominent due to involutional changes The visualized paranasal sinuses and mastoid air cells are clear CT cervical spine: The cervical alignment is normal. The craniocervical junction is normal. The vertebral body heights are maintained. There are multilevel changes of intervertebral discs such is narrowing cough C3-C4, C4-C5, C5-C6, C6-C7 and C7-T1 with grade 1 anterior listhesis of C2 over C3 and C7 over T1. There is uncovertebral osteophytosis. The paraspinal soft tissues are within normal limits. The partially imaged lung apices are clear. CT/CT head/brain wo IV con IMPRESSION: CT HEAD: 1. No acute intracranial finding. 2. Chronic changes of remote right occipital stroke, sequela of microangiopathy and global volume loss. CT CERVICAL SPINE: 1. No acute cervical spine fracture or traumatic malalignment identified. 2. Multilevel degenerative changes. Discharge Plan Discharge Patient Disposition: Admitted As Inpatient Prescriptions: No Action furosemide 40 mg tablet 40 mg PO BID atorvastatin 40 mg tablet 40 mg PO DAILY clonidine HCl 0.1 mg tablet 0.1 mg PO TID carvedilol 12.5 mg tablet 12.5 mg PO BID sucralfate 1 gram tablet 1 g PO QIDACHS ondansetron HCl 4 mg tablet 4 mg PO Q8H PRN (Reason: Nausea And Vomiting) sertraline 100 mg tablet 100 mg PO DAILY cyanocobalamin (vitamin B-12) 1,000 mcg tablet 1,000 mcg PO DAILY potassium chloride 10 mEq tablet extended release 10 meq PO BEDTIME potassium chloride 10 mEq tablet extended release 20 meq PO DAILY clopidogrel 75 mg tablet 75 mg PO DAILY amlodipine 5 mg tablet 5 mg PO DAILY allopurinol 100 mg tablet 100 mg PO DAILY spironolactone 25 mg tablet 25 mg PO DAILY isosorbide mononitrate 60 mg tablet extended release 24 hr 60 mg PO QAM pantoprazole 40 mg tablet,delayed release (DR/EC) 40 mg PO DAILY hydralazine 50 mg tablet 50 mg PO TID bupropion HCl 150 mg tablet extended release 24 hr 150 mg PO DAILY cholecalciferol (vitamin D3) 1,250 mcg (50,000 unit) capsule 1,250 mcg PO QWEEK Eliquis 5 mg tablet 5 mg PO BID lidocaine HCl [Lidocaine Viscous] 2 % solution 1 appl mucous membrane BID PRN (Reason: tooth pain ) Qty: 100 0RF oxycodone 15 mg tablet 15 mg PO Q4H PRN (Reason: pain) Qty: 12 0RF Print Language: Kazakh
[2023-11-18 13:43] LABS: Lipase 14 U/L (8-78)
--- NOTE | 2023-11-18 14:45 | MHC.EDTECH ---
pt bedding replaced, changed into hospital gown. clothes were put to wash in the pod.
--- NOTE | 2023-11-18 15:05 | P.HPHOSP_ITS ---
History of Present Illness Date of Service: 11/18/23 Attending physician on admission: Igor Urbina Chief Complaint: weakness This is a 68-year-old male who was sent from rehab with complaints of generalized weakness. Several days ago he reportedly had a fall from his wheelchair while he was doing his exercises. The exercise band got caught underneath the wheel and propelled him forward onto his head. He did not have loss of consciousness. In the emergency department he had a CT scan of his brain which was negative for any acute changes. He reports generalized weakness with no associated symptoms. He denies any abdominal pain, nausea, vomiting, diarrhea, chest pain, shortness of breath or cough. He denies any fever or chills. His p.o. intake has remained the same over the past few days. In the emergency department his workup was unremarkable with the exception of FEDERICO. Creatinine was noted to be 2.26 with a baseline closer to 1.4-1.5. He received IV fluid and the decision was made to admit him to the hospital for further management of acute kidney injury. Review of Systems 2 Review of Systems: Yes all other systems are reviewed and are negative Constitutional: Constitutional: Denies chills and Denies fever(s) ENT: Denies dizziness Cardiovascular: Cardiovascular: Denies chest pain and Denies palpitations Respiratory: Respiratory: Denies cough Gastrointestinal: Gastrointestinal: Denies abdominal pain, Denies diarrhea, Denies nausea and Denies vomiting Neurologic: Denies dizziness Endocrine: Endocrine: Denies palpitations [facility] Medical History Cognitive impairment Shoulder pain Pain in joint involving shoulder region JOSE ALEJANDRO (obstructive sleep apnea) OA (osteoarthritis) of knee Neuropathy of upper extremity Hypertension, renal disease Hyperlipidemia Gout Depression Degenerative joint disease (DJD) of lumbar spine CVA (cerebral vascular accident) Chronic pain syndrome Chronic kidney disease, stage 3b Atrial fibrillation Aortic aneurysm Surgical History Hx of CABG Social History Household Members: Family Household Members Other:: grandson Housing: House Do you presently have visiting nurse or other home services: No Patient Tobacco Use Status: Never used Tobacco Smoked in Last 30 Days: No Use of substances other than those prescribed or required for medical reasons: No Substance Use Type: Marijuana Advance Directives: Yes Advance Directives on File: Yes Advance Directives Date on File: 09/06/23 service: No Meds Allergies Allergy/AdvReac Type Severity Reaction Status Date / Time No Known Allergies Allergy Verified 11/18/23 11:51 Active Medications: Current Medications Acetaminophen (Acetaminophen 325 Mg Tablet) 650 mg PO Q6H PRN PRN Reason: Pain, Mild (Pain Scale 1-3), fever or headache Calcium Carbonate (Calcium Carbonate 750 Mg Tab.Chew) 750 mg PO Q4H PRN PRN Reason: Heartburn Sodium Chloride (Ns) 1,000 mls @ 999 mls/hr IV .Q1H1M JOHN Stop: 11/18/23 15:30 Melatonin (Melatonin 3 Mg Tablet) 6 mg PO BEDTIME PRN PRN Reason: Insomnia Polyethylene Glycol (Polyethylene Glycol 3350 17 Gm Powd.Pack) 17 gm PO DAILY PRN PRN Reason: Constipation Sodium Chloride (0.9 % Sodium Chloride Flush 3 Ml Syringe) 3 ml IVFLUSH [facility] Home Medications ?Medication ?Instructions ?Recorded ?Confirmed ?Last Taken ?Type allopurinol 100 mg tablet 100 mg PO DAILY 09/06/23 11/18/23 11/18/23 08:00 History amlodipine 5 mg tablet 5 mg PO DAILY 09/06/23 11/18/23 11/18/23 08:00 History apixaban 5 mg tablet (Eliquis) 5 mg PO BID 09/06/23 11/18/23 11/18/23 08:00 History atorvastatin 40 mg tablet 40 mg PO DAILY 09/06/23 11/18/23 11/18/23 08:00 History bupropion HCl 150 mg 24 hr tablet, 150 mg PO DAILY 09/06/23 11/18/23 11/18/23 08:00 History extended release carvedilol 12.5 mg tablet 12.5 mg PO BID 09/06/23 11/18/23 11/18/23 08:00 History cholecalciferol (vitamin D3) 1,250 1,250 mcg PO MO 09/06/23 11/18/23 11/14/23 History mcg (50,000 unit) capsule clonidine HCl 0.1 mg tablet 0.1 mg PO BID 09/06/23 11/18/23 11/18/23 08:00 History clopidogrel 75 mg tablet 75 mg PO DAILY 09/06/23 11/18/23 11/18/23 08:00 History furosemide 40 mg tablet 40 mg PO BID 09/06/23 11/18/23 11/18/23 08:00 History hydralazine 50 mg tablet 50 mg PO TID 09/06/23 11/18/23 11/18/23 08:00 History isosorbide mononitrate 60 mg 60 mg PO DAILY 09/06/23 11/18/23 11/18/23 08:00 History tablet,extended release 24 hr ondansetron HCl 4 mg tablet 4 mg PO Q8H PRN Nausea And Vomiting 09/06/23 11/18/23 Unknown History pantoprazole 40 mg tablet,delayed 40 mg PO DAILY@0630 09/06/23 11/18/23 11/18/23 08:00 History release potassium chloride 10 mEq 10 meq PO BEDTIME 09/06/23 11/18/23 11/18/23 08:00 History tablet,extended release potassium chloride 10 mEq 20 meq PO DAILY 09/06/23 11/18/23 11/18/23 08:00 History tablet,extended release sertraline 100 mg tablet 100 mg PO DAILY 09/06/23 11/18/23 11/18/23 08:00 History spironolactone 25 mg tablet 25 mg PO DAILY 09/06/23 11/18/23 11/18/23 08:00 History sucralfate 1 gram tablet 1 g PO QIDACHS 09/06/23 11/18/23 11/18/23 08:00 History bisacodyl 10 mg rectal suppository 10 mg VT DAILY PRN If no BM for 8 11/18/23 11/18/23 Unknown History hrs after Milk of Magnesia diclofenac sodium 1 % topical gel 1 ea topical BID Foot/Ankle 11/18/23 11/18/23 11/18/23 08:00 History magnesium hydroxide 400 mg/5 mL 30 ml PO DAILY PRN No BM for 3 days 11/18/23 11/18/23 Unknown History oral suspension (Milk of Magnesia) sennosides 8.6 mg tablet (senna) 8.6 mg PO BID 11/18/23 11/18/23 11/18/23 08:00 History sodium phosphates 19 gram-7 118 ml VT DAILY PRN If no BM For 8 11/18/23 11/18/23 Unknown History gram/118 mL enema (Fleet Enema) HRS after Bisacodyl Suppository Physical Exam 2 Vital Signs and Narrative: Vital Signs: Last Vital Signs Temp 98.3 F 11/18/23 12:00 Pulse 55 11/18/23 12:00 Resp 10 L 11/18/23 12:00 BP 105/62 11/18/23 12:00 Pulse Ox 95 11/18/23 12:00 O2 Del Method Room Air 11/18/23 12:00 BMI result Body Mass Index 22.5 Const: General: cooperative, comfortable, no acute distress, alert and awake Nutritional Appearance: average body habitus Resp: Effort & Inspection: normal respiratory effort, able to speak in complete sentences, no respiratory distress and no use of accessory muscles Cardio: Rate: bradycardic GI: Inspection: No distended Palpation (GI): Soft to palpation and nontender Skin: Other: skin tear/bruise left elbow; wound right ankle covered with c/d/i dressing; scrape left lower contreras Neuro: General: moves all extremities and CN's II-XI intact bilaterally Extrem: General: Yes no pedal edema Results Labs 11/18/23 12:43 11/18/23 12:43 Labs: Laboratory Results - last 24 hr 11/18/23 12:43 MCV 86.0 MCH 28.2 MCHC 32.7 RDW 16.4 H Plt Count 130 L MPV 10.0 Immature Gran % (Auto) 0.4 Neut % (Auto) 65.7 Lymph % (Auto) 14.8 L Porter % (Auto) 15.0 H Eos % (Auto) 3.7 Baso % (Auto) 0.4 Lymph # (Auto) 0.7 L Porter # (Auto) 0.7 Eos # (Auto) 0.2 Baso # (Auto) 0.0 Abs Immat Gran (auto) 0.02 Absolute Neuts (auto) 3.0 Absolute Nucleated RBC 0.000 Nucleated RBC % (auto) 0.0 PT 26.9 H D INR 2.2 H Anion Gap 14 Estim Creat Clear Calc 32.7 Estimated GFR 29 Random Glucose 100 Calcium 9.7 Total Bilirubin 0.8 AST 7 ALT 12 Alkaline Phosphatase 97 Troponin I High Sens 12.5 Total Protein 7.4 Albumin 4.1 Lipase 14 Imaging Radiologist's Impressions: Impressions Cervical Spine CT 11/18/23 12:59 IMPRESSION: CT HEAD: 1. No acute intracranial finding. 2. Chronic changes of remote right occipital stroke, sequela of microangiopathy and global volume loss. CT CERVICAL SPINE: 1. No acute cervical spine fracture or traumatic malalignment identified. 2. Multilevel degenerative changes. Head CT 11/18/23 12:59 IMPRESSION: CT HEAD: 1. No acute intracranial finding. 2. Chronic changes of remote right occipital stroke, sequela of microangiopathy and global volume loss. CT CERVICAL SPINE: 1. No acute cervical spine fracture or traumatic malalignment identified. 2. Multilevel degenerative changes. Assessment and Plan (1) FEDERICO (acute kidney injury): Status: Acute Plan This is a 68-year-old male with history of atrial fibrillation on Eliquis, CKD 3, recent prolonged hospitalization for capacity and guardianship who returns from short-term rehab with generalized weakness found to have FEDERICO FEDERICO on CKD 3 Hold diuretics including Lasix and Aldactone hold potassium supplementation Gentle IV fluid Follow BMP Paroxysmal atrial fibrillation HR controlled Continue anticoagulation with Eliquis continue BB Chronic pain Continue oxycodone Normocytic anemia H/H above transfusion threshold Thrombocytopenia chronic Hypertension most recent bp soft Continue amlodipine, Coreg if bp allows hold hydralazine and clonidine Hyperlipidemia Continue statin CAD Continue beta-amy, statin hold imdur, resume as bp allows Mood Continue Zoloft, Wellbutrin JOSE ALEJANDRO Not on CPAP DVT prophylaxis-Eliquis Code status-DNI Patient will likely require 2 midnight stay in the hospital for further management of FEDERICO requiring IV fluids and close monitoring of renal function and volume status while receiving IV fluids Quality Stroke Does the patient have a stroke diagnosis?: No VTE Prior VTE?: No VTE Risk Level:: Medical - moderate - high VTE Device Contraindication: N/A - Device Ordered VTE Drug Contraindication: Treatment Not Indicated
[2023-11-18] MEDS: 0.9 % Sodium Chloride 1,000 ML 999 ML IV (15:11)
--- OUTSIDE RECORDS SUMMARY | 2023-11-18 15:20 | XMS_ITS | Continuity of Care Document ---
Author Organization [facility] Adult Address [address] [place] [address]- Care Team Providers Care Matchbook Maker Name Role Phone Radha ODONNELL, Hannah Primary Care Physician Encounter [facility] Date(s): 03/18/22 - 04/17/[address] [facility] Adult [address] [place] [id number]- Allergies, Adverse Reactions, Alerts Substance Reaction Severity [...] 04/13/22 11:43:00 EST, Route to Pharmacy Electronically, [id number], 183, cm, 03/16/22 8:31:00 EDT, Height, 71.3, kg, 08/08/21 0:23:00 EDT, Dry Weight Start Date: 04/13/22 Status: Ordered amLODIPine 5 mg oral tablet 1 tablet, By Mouth, Daily, # 28 tablet, 4 Refills, Maintenance, 04/13/22 11:43:00 EST, [id number], 183, cm, 03/16/22 8:31:00 EDT, Height, 71.3, kg, 08/08/21 0:23:00 EDT, Dry Weight Start Date: 04/13/22 Status: Ordered atorvastatin 40 mg oral tablet 1 tablet, By Mouth, Daily, # 28 tablet, 5 Refills, 12/23/21 11:53:00 EDT, [facility]/pharmacy #[id number], 183, cm, 10/20/21 10:31:00 EDT, Height, 71.3, kg, 08/08/21 0:23:00 EDT, Dry Weight Start Date: 12/23/21 Status: Ordered buPROPion 150 mg/24 hours (XL) oral tablet, extended release See Instructions, TAKE 1 TABLET BY MOUTH EVERY 24 HOURS, # 28 tablet, 5 Refills, 03/18/22 11:05:00 EDT, [facility]/pharmacy #[id number], 28, TAKE 1 TABLET BY MOUTH EVERY 24 HOURS, 183, cm, 03/16/22 8:31:00 EDT, Height, 71.3, kg, 08/08/21 0:23:00 EDT, Dry Weight Start Date: 03/18/22 Status: Ordered buPROPion 150 mg/24 hours (XL) oral tablet, extended release 1 tablet, By Mouth, Every 24 hours, # 28 tablet, 2 Refills, [id number], 28, TAKE 1 TABLET BY MOUTH EVERY 24 HOURS, 183, cm, 08/12/21 14:20:00 EDT, Height, 71.3, kg, 08/08/21 0:23:00 EDT, Dry Weight Start Date: 09/25/21 Status: Ordered carvedilol 12.5 mg oral tablet 1, tablet, By Mouth, 2 times a day, # 56 tablet, Refills 5, Route to Pharmacy Electronically, [id number], 183, cm, 05/04/21 3:09:00 EST, Height, 81.7, kg, 04/16/21 3:06:00 EST, Dry Weight Start Date: 07/07/21 Status: Ordered carvedilol 12.5 mg oral tablet See Instructions, TAKE 1 TABLET BY MOUTH TWICE A DAY, # 56 tablet, Refills 5, Tot. Refills 5, 03/18/22 11:05:00 EDT, Instructions Replace Required Details, Route to Pharmacy Electronically, [facility]/pharmacy #[id number], 183, cm, 03/16/22 8:31:00 EDT, Height, 71... Start Date: 03/18/22 Status: Ordered clopidogrel 75 mg oral tablet 1, tablet, By Mouth, Daily, # 28 tablet, Refills 5, Route to Pharmacy Electronically, [id number], 183, cm, 05/04/21 3:09:00 EST, Height, 81.7, kg, 04/16/21 3:06:00 EST, Dry Weight Start Date: 07/02/21 Status: Ordered clopidogrel 75 mg oral tablet 75 mg, 1, tablet, By Mouth, Daily, for 30 days, # 30 tablet, Refills 5, Tot. Refills 5, Physician Stop 09/14/22 13:18:00 EDT, 03/18/22 13:18:00 EDT, Route to Pharmacy Electronically, [facility]/pharmacy #[id number], 183, cm, 03/16/22 8:31:00 EDT, Height, 71.3, kg,... Start Date: 03/18/22 Stop Date: 09/14/22 Status: Ordered Eliquis 5 mg oral tablet 1 tablet, By Mouth, 2 times a day, # 56 tablet, 6 Refills, [facility], 183, cm, 08/12/21 14:20:00 EDT, Height, 71.3, kg, 08/08/21 0:23:00 EDT, Dry Weight Start Date: 09/26/21 Status: Ordered furosemide 40 mg oral tablet 1, tablet, By Mouth, 2 times a day, # 56 tablet, Refills 2, Maintenance, 04/13/22 11:44:00 EST, Route to Pharmacy Electronically, [id number], 183, cm, 03/16/22 8:31:00 EDT, Height, 71.3, kg, 08/08/21 0:23:00 EDT, Dry Weight Start Date: 04/13/22 Status: Ordered hydrALAZINE 50 mg oral tablet 1 tablet, By Mouth, 3 times a day, # 84 tablet, 1 Refills, Maintenance, 04/13/22 12:20:00 EST, [facility], 183, cm, 03/16/22 8:31:00 EDT, Height, 71.3, kg, 08/08/21 0:23:00 EDT, Dry Weight Start Date: 04/13/22 Status: Ordered isosorbide mononitrate 60 mg oral tablet, extended release 1 tablet, By Mouth, Daily in AM, # 28 tablet, 4 Refills, Maintenance, 04/13/22 11:43:00 EST, [facility], 183, cm, 03/16/22 8:31:00 EDT, Height, 71.3, kg, 08/08/21 0:23:00 EDT, Dry Weight Start Date: 04/13/22 Status: Ordered Mylanta Maximum Strength oral suspension 5 mL, By Mouth, 4 times a day, PRN for control of stomach acid, # 200 mL, 1 Refills, Maintenance, 08/12/21 13:46:00 EDT, Suspension, [facility]/pharmacy #[id number], Partial fill upon patient request if the prescription is for a schedule II opioid drug., 5 mL By M... Start Date: 08/12/21 Status: Ordered nitroglycerin 0.4 mg sublingual tablet 1 tablet = 0.4 mg, Sublingual, Every 5 minutes, PRN Chest Pain, # 25 tablet, 3 Refills, Maintenance, 08/24/19 15:40:00 EDT, [facility]/pharmacy #[id number], 183, cm, 05/25/19 15:06:00 EST, Height, 88.3, kg, 08/31/17 3:30:00 EDT, Dry Weight Start Date: 08/24/19 Stop Date: 12/22/19 Status: Ordered oxyCODONE 30 mg oral tablet 2 tablet = 60 mg, By Mouth, Every 3 hours, ENGINE ASSEMBLY SUPERVISOR checked., # 224 tablet, 0 Refills, Acute 05/15/23 10:23:00 EST, 04/12/22 12:25:00 EST, [facility]/pharmacy #[id number], may partial fill upon request;, 183, [...] Stop Date: 07/16/22 Status: Ordered Potassium Chloride (Igb-Ygij-Fix 10) 10 mEq oral tablet, extended release See Instructions, TAKE 2 TABLETS BY MOUTH EVERY MORNING AND TAKE 1 TABLET EVERY EVENING, # 84 tablet, 2 Refills, 03/18/22 13:18:00 EDT, [facility]/pharmacy #[id number], 183, cm, 03/16/22 8:31:00 EDT, Height, 71.3, kg, 08/08/21 0:23:00 EDT, Dry Weight Start Date: 03/18/22 Status: Ordered sertraline 100 mg oral tablet 1 tablet, By Mouth, Daily, # 28 tablet, 5 Refills, [facility], 183, cm, 10/20/21 10:31:00 EDT,Height, 71.3, kg, 08/08/21 0:23:00 EDT, Dry Weight Start Date: 11/30/21 Status: Ordered spironolactone 25 mg oral tablet 1, tablet, By Mouth, Daily, for 30 days, # 30 tablet, Refills 3, Tot. Refills 3, Physician Stop 07/16/22 13:20:00 EST, 03/18/22 13:20:00 EDT, Route to Pharmacy Electronically, [facility]/pharmacy #[id number], 183, cm, 03/16/22 8:31:00 EDT, Height, 71.3, kg, 08/08/... Start Date: 03/18/22 Stop Date: 07/16/22 Status: Ordered sucralfate 1 gm oral tablet See Instructions, TAKE 1 TABLET BY MOUTH 3 TIMES A DAY BEFORE MEALS AND BEDTIME, # 112 tablet, Refills 2, Tot. Refills 2, Maintenance, 02/24/22 9:45:00 EDT, Instructions Replace Required Details, Route to Pharmacy Electronically, [facility]/pharmacy #[id number], 1... Start Date: 02/24/22 Status: Ordered sucralfate 1 gm oral tablet 1, tablet, By Mouth, 3 times a day before meals, AND BEDTIME., # 112 tablet, Refills 2, Tot. Refills 2, 08/12/21 13:47:00 EDT, Route to Pharmacy Electronically, [facility]/pharmacy #[id number], 183, cm, 08/12/21 12:05:00 EDT, Height, 71.3, kg, 08/08/21 0:23:00 EDT... Start Date: 08/12/21 Status: Ordered Vitamin B-12 1000 mcg oral tablet 1, tablet, By Mouth, Daily, # 28 tablet, Refills 5, Route to Pharmacy Electronically, [id number], 183, cm, 08/12/21 14:20:00 EDT, Height, 71.3, [...] Rolando Rubin M.D. at [facility]. 4In the past; states this [...] Wilner Feliciano RN Position: [facility] RN Supv Member Role: Primary Care Nurse Name: David Gonzalez MD Position: [facility] Renal MD Member Role: Lifetime Consulting Physician Address: Address: [address] [place] [address], [address] [facility] [place] [address]- [place] Name: Hannah Garcia NP Position: [facility] PCO Associate Professional Member Role: PCP Address: Address: [address] [place] [address], [address] [place] [address]- [place] Name: Eduin Arias MD Position: [facility] Physician (General Medicine) Member Role: Lifetime Consulting Physician Address: Address: [address] [place] [address], [address] [place] [address]- [place] Name: Ana Herrera RN Position: [facility] RN Member Role: Primary Care Nurse Name: Carlos Montez RN Position: [facility] RN Member Role: Primary Care Nurse Name: Cadence Quach RN Position: [facility] OB RN Member Role: Primary Care Nurse Name: Maggy Tsang RN Position: [facility] RN Member Role: Primary Care Nurse Name: Keyla Keys RN Position: [facility] SN RN Member Role: Primary Care Nurse Name: Марина Guevara RN Position: [facility] RN Member Role: Primary Care Nurse Name: Lyn Helms RN Position: [facility] RN Member Role: Primary Care Nurse Name: Tatum Biswas RN Position: [facility] RN Member Role: Primary Care Nurse Name: Janneth Lerner RN Position: [facility] RN [...] Felicia Kerr RN Position: [facility] RN Member Role: Primary Care Nurse Name: Hafsa Goyal RN Position: [facility] RN Member Role: Primary Care Nurse Name: Rosalio Jack RN Position: [facility] RN Member Role: Primary Care Nurse Name: Geovanna Hill RN Position: [facility] RN [...] Role: Lifetime Consulting Physician Address: Address: [address] [place] [address] [facility] [address] Name: Jesusita Lou RN Position: [facility] OB RN Member Role: Primary Care Nurse Name: Karen Quach RN Position: [facility] PCO w/OE and EZ Script Member Role: Primary Care Nurse Name: Marshall Byrd RN Position: [facility] RN Member Role: Primary Care Nurse Care Team Related Persons Name: ZAID DUTCH Address: [place] [address] Name: ALL AYERS Address: home [address] [place] [address] Name: ALL MANZANARES Address: home [address] [place] [address] Name: CHRISTEN GRIMALDO Address: home [address] [place] [address]
--- OUTSIDE RECORDS SUMMARY | 2023-11-18 15:23 | XMS_ITS | Continuity of Care Document ---
Author Organization [facility] Address [address] [place] [address]- Care Team Providers Care Terminal Superintendent Name Role Phone Radha ODONNELL, Hannah Primary Care Physician [phone] Encounter [facility] Date(s): 03/15/22 - 04/14/22 [facility] [address] [place] [id number]- Allergies, Adverse Reactions, Alerts Substance Reaction Severity [...] 04/13/22 11:43:00 EST, Route to Pharmacy Electronically, [id number], 183, cm, 03/16/22 8:31:00 EDT, Height, 71.3, kg, 08/08/21 0:23:00 EDT, Dry Weight Start Date: 04/13/22 Status: Ordered amLODIPine 5 mg oral tablet 1 tablet, By Mouth, Daily, # 28 tablet, 4 Refills, Maintenance, 04/13/22 11:43:00 EST, [facility] [id number], 183, cm, 03/16/22 8:31:00 EDT, Height, 71.3, kg, 08/08/21 0:23:00 EDT, Dry Weight Start Date: 04/13/22 Status: Ordered atorvastatin 40 mg oral tablet 1 tablet, By Mouth, Daily, # 28 tablet, 5 Refills, 12/23/21 11:53:00 EDT, [facility]/pharmacy #[id number], 183, cm, 10/20/21 10:31:00 EDT, Height, 71.3, kg, 08/08/21 0:23:00 EDT, Dry Weight Start Date: 12/23/21 Status: Ordered buPROPion 150 mg/24 hours (XL) oral tablet, extended release See Instructions, TAKE 1 TABLET BY MOUTH EVERY 24 HOURS, # 28 tablet, 5 Refills, 03/18/22 11:05:00 EDT, [facility]/pharmacy #[id number], 28, TAKE 1 TABLET BY MOUTH EVERY 24 HOURS, 183, cm, 03/16/22 8:31:00 EDT, Height, 71.3, kg, 08/08/21 0:23:00 EDT, Dry Weight Start Date: 03/18/22 Status: Ordered buPROPion 150 mg/24 hours (XL) oral tablet, extended release 1 tablet, By Mouth, Every 24 hours, # 28 tablet, 2 Refills, [id number], 28, TAKE 1 TABLET BY MOUTH EVERY 24 HOURS, 183, cm, 08/12/21 14:20:00 EDT, Height, 71.3, kg, 08/08/21 0:23:00 EDT, Dry Weight Start Date: 09/25/21 Status: Ordered carvedilol 12.5 mg oral tablet 1, tablet, By Mouth, 2 times a day, # 56 tablet, Refills 5, Route to Pharmacy Electronically, [facility] [id number], 183, cm, 05/04/21 3:09:00 EST, Height, 81.7, kg, 04/16/21 3:06:00 EST, Dry Weight Start Date: 07/07/21 Status: Ordered carvedilol 12.5 mg oral tablet See Instructions, TAKE 1 TABLET BY MOUTH TWICE A DAY, # 56 tablet, Refills 5, Tot. Refills 5, 03/18/22 11:05:00 EDT, Instructions Replace Required Details, Route to Pharmacy Electronically, [facility]/pharmacy #[id number], 183, cm, 03/16/22 8:31:00 EDT, Height, 71... Start Date: 03/18/22 Status: Ordered clopidogrel 75 mg oral tablet 1, tablet, By Mouth, Daily, # 28 tablet, Refills 5, Route to Pharmacy Electronically, [facility] [id number], 183, cm, 05/04/21 3:09:00 EST, Height, 81.7, kg, 04/16/21 3:06:00 EST, Dry Weight Start Date: 07/02/21 Status: Ordered clopidogrel 75 mg oral tablet 75 mg, 1, tablet, By Mouth, Daily, for 30 days, # 30 tablet, Refills 5, Tot. Refills 5, Physician Stop 09/14/22 13:18:00 EDT, 03/18/22 13:18:00 EDT, Route to Pharmacy Electronically, [facility]/pharmacy #[id number], 183, cm, 03/16/22 8:31:00 EDT, Height, 71.3, kg,... Start Date: 03/18/22 Stop Date: 09/14/22 Status: Ordered Eliquis 5 mg oral tablet 1 tablet, By Mouth, 2 times a day, # 56 tablet, 6 Refills, [facility] [id number], 183, cm, 08/12/21 14:20:00 EDT, Height, 71.3, kg, 08/08/21 0:23:00 EDT, Dry Weight Start Date: 09/26/21 Status: Ordered furosemide 40 mg oral tablet 1, tablet, By Mouth, 2 times a day, # 56 tablet, Refills 2, Maintenance, 04/13/22 11:44:00 EST, Route to Pharmacy Electronically, [facility] [id number], 183, cm, 03/16/22 8:31:00 EDT, Height, 71.3, kg, 08/08/21 0:23:00 EDT, Dry Weight Start Date: 04/13/22 Status: Ordered hydrALAZINE 50 mg oral tablet 1 tablet, By Mouth, 3 times a day, # 84 tablet, 1 Refills, Maintenance, 04/13/22 12:20:00 EST, [id number], 183, cm, 03/16/22 8:31:00 EDT, Height, 71.3, kg, 08/08/21 0:23:00 EDT, Dry Weight Start Date: 04/13/22 Status: Ordered isosorbide mononitrate 60 mg oral tablet, extended release 1 tablet, By Mouth, Daily in AM, # 28 tablet, 4 Refills, Maintenance, 04/13/22 11:43:00 EST, [facility] [id number], 183, cm, 03/16/22 8:31:00 EDT, Height, 71.3, [...] 60 mg, By Mouth, Every 3 hours, MEDICAL OFFICE TECHNICIAN checked., # 224 tablet, 0 Refills, Acute 05/15/23 10:23:00 EST, 04/12/22 12:25:00 EST, [facility]/pharmacy #[id number], may partial [...] Stop Date: 07/16/22 Status: Ordered Potassium Chloride (Bvs-Mwrv-Xlh 10) 10 mEq oral tablet, extended release See Instructions, TAKE 2 TABLETS BY MOUTH EVERY MORNING AND TAKE 1 TABLET EVERY EVENING, # 84 tablet, 2 Refills, 03/18/22 13:18:00 EDT, [facility]/pharmacy #[id number], 183, cm, 03/16/22 8:31:00 EDT, Height, 71.3, kg, 08/08/21 0:23:00 EDT, Dry Weight Start Date: 03/18/22 Status: Ordered sertraline 100 mg oral tablet 1 tablet, By Mouth, Daily, # 28 tablet, 5 Refills, [facility] 57405, 183, cm, 10/20/21 10:31:00 EDT,Height, 71.3, kg, 08/08/21 0:23:00 EDT, Dry Weight Start Date: 11/30/21 Status: Ordered spironolactone 25 mg oral tablet 1, tablet, By Mouth, Daily, for 30 days, # 30 tablet, Refills 3, Tot. Refills 3, Physician Stop 07/16/22 13:20:00 EST, 03/18/22 13:20:00 EDT, Route to Pharmacy Electronically, [facility]/pharmacy #[id number], 183, cm, 03/16/22 8:31:00 EDT, Height, 71.3, kg, 08/08/... Start Date: 03/18/22 Stop Date: 07/16/22 Status: Ordered sucralfate 1 gm oral tablet See Instructions, TAKE 1 TABLET BY MOUTH 3 TIMES A DAY BEFORE MEALS AND BEDTIME, # 112 tablet, Refills 2, Tot. Refills 2, Maintenance, 02/24/22 9:45:00 EDT, Instructions Replace Required Details, Route to Pharmacy Electronically, [facility]/pharmacy #[id number], 1... Start Date: 02/24/22 Status: Ordered sucralfate 1 gm oral tablet 1, tablet, By Mouth, 3 times a day before meals, AND BEDTIME., # 112 tablet, Refills 2, Tot. Refills 2, 08/12/21 13:47:00 EDT, Route to Pharmacy Electronically, [facility]/pharmacy #[id number], 183, cm, 08/12/21 12:05:00 EDT, Height, 71.3, kg, 08/08/21 0:23:00 EDT... Start Date: 08/12/21 Status: Ordered Vitamin B-12 1000 mcg oral tablet 1, tablet, By Mouth, Daily, # 28 tablet, Refills 5, Route to Pharmacy Electronically, [facility] [id number], 183, cm, 08/12/21 14:20:00 EDT, Height, 71.3, [...] artery disease by Rolando Rubin M.D. at [facility]. 4In the past; states this [...] Name: Wilner Feliciano RN Position: [facility] RN Supv Member Role: Primary Care Nurse Name: David Gonzalez MD Position: [facility] Renal MD Member Role: Lifetime Consulting Physician Address: Address: [address] [place] [address], [address] [facility] [place] [address]- [place] Name: Hannah Garcia NP Position: [facility] PCO Associate Professional Member Role: PCP Address: Address: [address] [place] [address], [address] [place] [address]- [place] Name: Eduin Arias MD Position: [facility] Physician (General Medicine) Member Role: Lifetime Consulting Physician Address: Address: [address] [place] [address], [address] [place] [address]- [place] Name: Ana Herrera RN Position: [facility] RN Member Role: Primary Care Nurse Name: Carlos Montez RN Position: [facility] RN Member Role: Primary Care Nurse Name: Cadence Quach RN Position: [facility] OB RN Member Role: Primary Care Nurse Name: aMggy Tsang RN Position: [facility] RN Member Role: Primary Care Nurse Name: Keyla Keys RN Position: [facility] SN RN Member Role: Primary Care Nurse Name: Марина Guevara RN Position: [facility] RN Member Role: Primary Care Nurse Name: Lyn Helms RN Position: [facility] RN Member Role: Primary Care Nurse Name: Tatum Biswas RN Position: [facility] RN Member Role: Primary Care Nurse Name: Janneth Lerner RN Position: [facility] RN Member Role: Primary Care Nurse Name: Hugo Bateman RN Position: [facility] RN Member Role: Primary Care Nurse Name: Petros Levy RN Position: [facility] RN Member Role: Primary Care Nurse Name: Izabella Braun RN Position: [facility] RN Member Role: Primary Care Nurse Name: Lyndsay King RN Position: [facility] RN Member Role: Primary Care Nurse Name: Felicia Kerr RN Position: [facility] RN Member Role: Primary Care Nurse Name: Hafsa Goyal RN Position: [facility] RN Member Role: Primary Care Nurse Name: Rosalio Jack RN Position: [facility] RN Member Role: Primary Care Nurse Name: Geovanna Hill RN Position: [facility] RN Member Role: [...] Role: Lifetime Consulting Physician Address: Address: [address] [place] [address] [facility] [address] Name: Jesusita Lou RN Position: [facility] OB RN Member Role: Primary Care Nurse Name: Karen Quach RN Position: [facility] PCO w/OE and EZ Script Member Role: Primary Care Nurse Name: Marshall Byrd RN Position: [facility] RN Member Role: Primary Care Nurse Care Team Related Persons Name: ZAID DUTCH Address: [place] [address] Name: ALL AYERS Address: home [address] [place] [address] Name: ALL MANZANARES Address: home [address] [place] [address] Name: CHRISTEN GRIMALDO Address: [address] [place] [address]
--- NOTE | 2023-11-18 16:08 | PHA.MEDREC ---
Pharmacy Consult ? Medication Reconciliation Pharmacy has completed the medication reconciliation. Confirmed medications with list provided by rehab facility and called facility to confirm blood thinners and Vitamin D3 50,000 UT. Rehab confirmed patient is taking Eliquis 5mg BID and the Clopidogrel 75mg once daily. Rehab also confirmed that he takes his Vitamin D3 50,000 UT tablet once weekly on Mondays and they gave it to him this past Tuesday.
[2023-11-18 17:24] VITALS: BP 126/87; PULSE 57; RESP 18; TEMP 36.1; O2SAT 99
[2023-11-18] MEDS: oxyCODONE HCl Immed Release 15 MG TABLET PO ×2 (17:47→22:20)
[2023-11-18] MEDS: Lactated Ringers 1,000 ML 80 ML IVCONT (18:06)
[2023-11-18] MEDS: 0.9 % Sodium Chloride Flush 3 ML SYRINGE IVFLUSH ×2 (18:06→22:16)
[2023-11-18 19:23] VITALS: BP 101/66; PULSE 54; RESP 16; TEMP 36.4; O2SAT 96
[2023-11-18] MEDS: Apixaban 5 MG TABLET PO (22:15)
[2023-11-18] MEDS: Sennosides 8.6 MG TABLET PO (22:15)
[2023-11-18] MEDS: Sucralfate 1 GM TABLET PO (22:16)
[2023-11-19 00:13] VITALS: RESP 18
[2023-11-19 03:07] VITALS: BP 146/68; PULSE 65; RESP 16; TEMP 36.8; O2SAT 95
[2023-11-19] MEDS: Pantoprazole Sodium 20 MG TABLET.DR 40 MG PO (05:50)
[2023-11-19 07:57] VITALS: BP 137/88; PULSE 68; RESP 16; TEMP 36.8; O2SAT 96
[2023-11-19 08:11] LABS: Anion Gap 13 (12-20); Blood Urea Nitrogen 46 mg/dL (9-16); Calcium 9.1 mg/dL (8.4-10.2); Carbon Dioxide 26 mmol/L (22-29); Chloride 104 mmol/L (96-108); Creatinine Clr Calc Pharmacy 39.8; Estimated Glomerular Filt Rate 36; Glucose Random 89 mg/dL (60-115); Potassium 4.3 mmol/L (3.3-5.1); Sodium 139 mmol/L (135-145)
[2023-11-19] MEDS: carvediloL 12.5 MG TABLET PO (08:34)
[2023-11-19] MEDS: Sennosides 8.6 MG TABLET PO (08:34)
[2023-11-19] MEDS: allopurinoL 100 MG TABLET PO (08:34)
[2023-11-19] MEDS: Sertraline HCL 100 MG TABLET PO (08:34)
[2023-11-19] MEDS: Apixaban 5 MG TABLET PO (08:34)
[2023-11-19] MEDS: Atorvastatin Calcium 40 MG TABLET PO (08:34)
[2023-11-19] MEDS: amLODIPine Besylate 5 MG TABLET PO (08:34)
[2023-11-19] MEDS: Clopidogrel Bisulfate 75 MG TABLET PO (08:34)
[2023-11-19] MEDS: Sucralfate 1 GM TABLET PO ×2 (08:34→12:02)
[2023-11-19] MEDS: buPROPion HCl XL 150 MG TAB.ER.24H PO (08:34)
[2023-11-19] MEDS: 0.9 % Sodium Chloride Flush 3 ML SYRINGE IVFLUSH (08:35)
[2023-11-19] MEDS: oxyCODONE HCl Immed Release 15 MG TABLET PO ×2 (08:40→12:59)
--- NOTE | 2023-11-19 12:15 | HO.PM.IMPN ---
Subjective Subjective Date of Service: 11/19/23 Review of Systems Follow up FEDERICO and fall doing well today general c/o pain Physical Exam Vital Signs: Vital Signs: Last Vital Signs Temp 98.2 F 11/19/23 07:57 Pulse 68 11/19/23 07:57 Resp 16 11/19/23 07:57 BP 137/88 11/19/23 07:57 Pulse Ox 96 11/19/23 07:57 O2 Del Method Room Air 11/19/23 07:57 BMI result Body Mass Index 22.5 Appearing in no acute distress lung sounds are clear to auscultation heart regular rate rhythm, clear S1, S2 positive bowel sounds, abdomen is soft, nontender neuro patient is alert x3, no focal deficits Objective Data Active Medications Acetaminophen (Acetaminophen 325 Mg Tablet) 650 mg PO Q6H PRN PRN Reason: Pain, Mild (Pain Scale 1-3), fever or headache Allopurinol (Allopurinol 100 Mg Tablet) 100 mg PO DAILY [facility] Last Admin: 11/19/23 08:34 Dose: 100 mg Documented By: CASEY Amlodipine Besylate (Amlodipine Besylate 5 Mg Tablet) 5 mg PO DAILY [facility]; Protocol Last Admin: 11/19/23 08:34 Dose: 5 mg Documented By: CASEY Apixaban (Apixaban 5 Mg Tablet) 5 mg PO BID [facility] Last Admin: 11/19/23 08:34 Dose: 5 mg Documented By: CASEY Atorvastatin Calcium (Atorvastatin Calcium 40 Mg Tablet) 40 mg PO DAILY [facility] Last Admin: 11/19/23 08:34 Dose: 40 mg Documented By: CASEY Bupropion HCl (Bupropion Hcl Xl 150 Mg Tab.Er.24h) 150 mg PO DAILY [facility] Last Admin: 11/19/23 08:34 Dose: 150 mg Documented By: CASEY Calcium Carbonate (Calcium Carbonate 750 Mg Tab.Chew) 750 mg PO Q4H PRN PRN Reason: Heartburn Carvedilol (Carvedilol 12.5 Mg Tablet) 12.5 mg PO BID [facility]; Protocol Last Admin: 11/19/23 08:34 Dose: 12.5 mg Documented By: CASEY Clopidogrel Bisulfate (Clopidogrel Bisulfate 75 Mg Tablet) 75 mg PO DAILY [facility] Last Admin: 11/19/23 08:34 Dose: 75 mg Documented By: CASEY Lidocaine HCl (Lidocaine Hcl Viscous 2 % 15 Ml Solution) 15 ml MUCOUS MEM BID PRN PRN Reason: tooth pain Melatonin (Melatonin 3 Mg Tablet) 6 mg PO BEDTIME PRN PRN Reason: Insomnia Oxycodone HCl (Oxycodone Hcl Immed Release 15 Mg Tablet) 15 mg PO Q4H PRN PRN Reason: Pain, Moderate(Pain Scale 4-6) Last Admin: 11/19/23 08:40 Dose: 15 mg Documented By: CASEY Pantoprazole Sodium (Pantoprazole Sodium 20 Mg Tablet.Dr) 40 mg PO DAILY@629 [facility] Last Admin: 11/19/23 05:50 Dose: 40 mg Documented By: COLE Polyethylene Glycol (Polyethylene Glycol 3350 17 Gm Powd.Pack) 17 gm PO DAILY PRN PRN Reason: Constipation Senna (Sennosides 8.6 Mg Tablet) 8.6 mg PO BID [facility] Last Admin: 11/19/23 08:34 Dose: 8.6 mg Documented By: CASEY Sertraline HCl (Sertraline Hcl 100 Mg Tablet) 100 mg PO DAILY [facility] Last Admin: 11/19/23 08:34 Dose: 100 mg Documented By: CASEY Sodium Chloride (0.9 % Sodium Chloride Flush 3 Ml Syringe) 3 ml IVFLUSH QSHIFT [facility] Last Admin: 11/19/23 08:35 Dose: 3 ml Documented By: CASEY Sucralfate (Sucralfate 1 Gm Tablet) 1 gm PO QIDACHS [facility] Last Admin: 11/19/23 12:02 Dose: 1 gm Documented By: CASEY Labs 11/18/23 12:43 11/19/23 05:59 Labs: Laboratory Results - last 24 hr 11/18/23 11/19/23 12:43 05:59 MCV 86.0 MCH 28.2 MCHC 32.7 RDW 16.4 H Plt Count 130 L MPV 10.0 Immature Gran % (Auto) 0.4 Neut % (Auto) 65.7 Lymph % (Auto) 14.8 L [place] % (Auto) 15.0 H Eos % (Auto) 3.7 Baso % (Auto) 0.4 Lymph # (Auto) 0.7 L [place] # (Auto) 0.7 Eos # (Auto) 0.2 Baso # (Auto) 0.0 Abs Immat Gran (auto) 0.02 Absolute Neuts (auto) 3.0 Absolute Nucleated RBC 0.000 Nucleated RBC % (auto) 0.0 Hold Purple Top SEE NOTE PT 26.9 H D INR 2.2 H Anion Gap 14 13 Estim Creat Clear Calc 32.7 39.8 Estimated GFR 29 36 Random Glucose 100 89 Calcium 9.7 9.1 D Total Bilirubin 0.8 AST 7 ALT 12 Alkaline Phosphatase 97 Troponin I High Sens 12.5 Total Protein 7.4 Albumin 4.1 Lipase 14 Assessment and Plan (1) FEDERICO (acute kidney injury): Status: Acute Plan This is a 68-year-old male with history of atrial fibrillation on Eliquis, CKD 3, recent prolonged hospitalization for capacity and guardianship who returns from short-term rehab with generalized weakness found to have FEDERICO FEDERICO on CKD 3. Resolving Hold diuretics including Lasix and Aldactone hold potassium supplementation Gentle IV fluid Follow BMP Paroxysmal atrial fibrillation HR controlled Continue anticoagulation with Eliquis continue BB Chronic pain Continue oxycodone Normocytic anemia H/H above transfusion threshold Thrombocytopenia chronic Hypertension most recent bp soft Continue amlodipine, Coreg if bp allows hold hydralazine and clonidine Hyperlipidemia Continue statin CAD Continue beta-amy, statin hold imdur, resume as bp allows Mood Continue Zoloft, Wellbutrin SNF requesting re-evaluation for capacity JOSE ALEJANDRO Not on CPAP DVT prophylaxis-Luis attending Dr. Casillas Code status-DNI continue hospital stay for further management of FEDERICO requiring IV fluids and close monitoring of renal function and volume status while receiving IV fluids Quality Stroke Does the patient have a stroke diagnosis?: No VTE Prior VTE?: No VTE Risk Level:: Medical - moderate - high VTE Device Contraindication: N/A - Device Ordered VTE Drug Contraindication: Treatment Not Indicated
--- NOTE | 2023-11-19 13:22 | MHC.CM.PN ---
PT SENT IN FROM [facility] FOR WEAKNESS AND NOW MEDICALLY CLEAR TO DC [facility]HA[facility], PETER MEDNEZ [phone] CONTACTED AND MEDICARE RIGHTS WERE DELIVERED SHE WAS ALSO INFORMED OF INTENT TO DC PT BACK TO THE SNF BLS TRANSPORT BOOKED WITH ERIN FOR 1600 HOURS DCS FAXED TO MIHAI AT [phone]
--- NOTE | 2023-11-19 13:58 | PM.DS ---
DS: Providers Provider Date of Service: 11/19/23 Date of admission: 11/18/23 15:01 Primary care physician: Hannah Garcia NP Consults: 11/18/23 18:37 Consult to Wound Care Routine Reason for consultation: redness to right ankle DS: Diagnosis Discharge Diagnosis (1) FEDERICO (acute kidney injury): Status: Acute DS: Summary Hospital Course Hospital Course: History and physical as per admitting provider. This is a 68-year-old male who was sent from rehab with complaints of generalized weakness. Several days ago he reportedly had a fall from his wheelchair while he was doing his exercises. The exercise band got caught underneath the wheel and propelled him forward onto his head. He did not have loss of consciousness. In the emergency department he had a CT scan of his brain which was negative for any acute changes. He reports generalized weakness with no associated symptoms. He denies any abdominal pain, nausea, vomiting, diarrhea, chest pain, shortness of breath or cough. He denies any fever or chills. His p.o. intake has remained the same over the past few days. In the emergency department his workup was unremarkable with the exception of FEDERICO. Creatinine was noted to be 2.26 with a baseline closer to 1.4-1.5. He received IV fluid and the decision was made to admit him to the hospital for further management of acute kidney injury. 68-year-old man treated for FEDERICO on CKD stage 3 likely due to loop diuretics. His Lasix and spironolactone was held as well as his potassium supplementation. He was given gentle IV fluids with decrease in creatinine. Plan will be to decrease Lasix to 40 mg daily and daily potassium supplementation. Hold Lasix and spironolactone for 3 days. Check BMP in 3 days. Plan is to transfer patient back to short-term rehab. Paroxysmal atrial fibrillation. Heart rate controlled. Continue Eliquis and beta-amy Chronic pain. Continue oxycodone Normocytic anemia. H&H above transfusion threshold Thrombocytopenia. Chronic Hypertension. Continue amlodipine, Coreg, hydralazine. Stop clonidine to avoid hypotension that could also contribute to FEDERICO. Time Attestation Discharge Coordination Time (in mins): 36 Quality: Safe Use of Opioids Does Pt have an Active Cancer Diagnosis on the Problem List?: No Quality: Stroke Does the patient have a stroke diagnosis?: No Physical Exam Vital Signs: Vital Signs: Last Vital Signs Temp 98.2 F 11/19/23 07:57 Pulse 68 11/19/23 07:57 Resp 16 11/19/23 07:57 BP 137/88 11/19/23 07:57 Pulse Ox 96 11/19/23 07:57 O2 Del Method Room Air 11/19/23 07:57 BMI result Body Mass Index 22.5 Appearing in no acute distress head is normocephalic atraumatic eyes pupils are PERRLA sclera is anicteric mouth throat mucous membranes are intact and moist neck is supple no lymphadenopathy, no JVD noted lung sounds are clear to auscultation heart regular rate rhythm, clear S1, S2 positive bowel sounds, abdomen is soft, nontender neuro patient is alert x3, no focal deficits DS: Data Data Completed and Pending Labs on day of discharge: Laboratory Results - last 24 hr 11/19/23 05:59 Hold Purple Top SEE NOTE Sodium 139 Potassium 4.3 Chloride 104 Carbon Dioxide 26 Anion Gap 13 BUN 46 H Creatinine 1.86 H Estim Creat Clear Calc 39.8 Estimated GFR 36 Random Glucose 89 Calcium 9.1 D Discharge Plan Discharge Anticipated Discharge Date/Time: 11/19/23 13:48 Patient Disposition: [facility] Discharge Diagnosis: FEDERICO Referrals: [facility] [Outside] Hannah Garcia NP [Primary Care Provider] - 1 Week Discharge Medications: Continued atorvastatin 40 mg tablet 40 mg PO DAILY carvedilol 12.5 mg tablet 12.5 mg PO BID sucralfate 1 gram tablet 1 g PO QIDACHS ondansetron HCl 4 mg tablet 4 mg PO Q8H PRN (Reason: Nausea And Vomiting) sertraline 100 mg tablet 100 mg PO DAILY potassium chloride 10 mEq tablet extended release 20 meq PO DAILY clopidogrel 75 mg tablet 75 mg PO DAILY amlodipine 5 mg tablet 5 mg PO DAILY allopurinol 100 mg tablet 100 mg PO DAILY isosorbide mononitrate 60 mg tablet extended release 24 hr 60 mg PO DAILY pantoprazole 40 mg tablet,delayed release (DR/EC) 40 mg PO DAILY@0630 hydralazine 50 mg tablet 50 mg PO TID bupropion HCl 150 mg tablet extended release 24 hr 150 mg PO DAILY cholecalciferol (vitamin D3) 1,250 mcg (50,000 unit) capsule 1,250 mcg PO MO Eliquis 5 mg tablet 5 mg PO BID lidocaine HCl [Lidocaine Viscous] 2 % solution 1 appl mucous membrane BID PRN (Reason: tooth pain ) Qty: 100 0RF oxycodone 15 mg tablet 15 mg PO Q4H PRN (Reason: pain) Qty: 12 0RF sennosides [senna] 8.6 mg Tablet 8.6 mg PO BID magnesium hydroxide [Milk of Magnesia] 400 mg/5 mL Suspension 30 ml PO DAILY PRN (Reason: No BM for 3 days) bisacodyl 10 mg Suppository 10 mg NV DAILY PRN (Reason: If no BM for 8 hrs after Milk of Magnesia) Fleet Enema 19-7 gram/118 mL Enema 118 ml NV DAILY PRN (Reason: If no BM For 8 HRS after Bisacodyl Suppository) diclofenac sodium 1 % Gel 1 ea TOPICAL BID Held furosemide 40 mg tablet 40 mg PO BID Hold Instructions: Resume on 11/22/23. spironolactone 25 mg tablet 25 mg PO DAILY Hold Instructions: Resume on 11/22/23. Discontinued clonidine HCl 0.1 mg tablet 0.1 mg PO BID potassium chloride 10 mEq tablet extended release 10 meq PO BEDTIME Discharge Orders: Discharge Order (Routine); Ordered 11/19/23 Ordered By: Evelia Ricketts Diet: Advance to usual diet Activity on Discharge: As tolerated Stand Alone Forms: Patient Portal Discharge page Print Language: Tamazight Other Ambulatory Orders: Basic Metabolic Panel (Routine) Timeframe: 3 Days Facility: [facility] - Location: Laboratory Ordered By: Evelia Ricketts Care Plan Goals: Transfer to Rehabilitation facility Hold lasix and spironolactone for 3 days Lasix was changed to 40 mg daily when restarted Health Concerns: FEDERICO Plan of Treatment: Follow-up with primary care provider as needed Take all medications as prescribed Assessment: See discharge summary
[2023-11-19 15:55] VITALS: BP 144/84; PULSE 80; RESP 20; TEMP 36.9; O2SAT 94
== END 2023-11-19 16:13 | DRG 684 ==
LOC: HO.ED 14:24 → HO.EDOVER 15:17 → HO.S3 15:32
PROVIDERS: Physician Assistant; Admitting Provider Physician Assistant Medical; Emergency Provider Emergency Medicine; PCP Nurse Practitioner Adult Health; Visit Provider Nurse Practitioner Acute Care
DX: N17.9 Acute kidney failure, unspecified (principal); I12.9 Hypertensive chronic kidney disease with stage 1 through stage 4 chronic kidney disease, or unspecified chronic kidney disease; I25.10 Atherosclerotic heart disease of native coronary artery without angina pectoris; T50.1X5A Adverse effect of loop [high-ceiling] diuretics, initial encounter; W05.0XXA Fall from non-moving wheelchair, initial encounter; I48.0 Paroxysmal atrial fibrillation; D63.1 Anemia in chronic kidney disease; G89.29 Other chronic pain; N18.30 Chronic kidney disease, stage 3 unspecified; E78.5 Hyperlipidemia, unspecified; D69.6 Thrombocytopenia, unspecified; Z95.1 Presence of aortocoronary bypass graft; Z79.01 Long term (current) use of anticoagulants; Z79.02 Long term (current) use of antithrombotics/antiplatelets; Z79.899 Other long term (current) drug therapy
CPT/HCPCS: 36415; 70450; 72125; 80048; 80053; 83690; 84484; 85025; 85610; 93005; 99221; 99285; J7120

== ENCOUNTER → 2023-11-18 11:49 | Outpatient (BNV) | payer MEDICARE, SELFPAY | PROVIDERS: Admitting Provider Physician Assistant Medical; Emergency Provider Emergency Medicine; PCP Nurse Practitioner Adult Health; Visit Provider Internal Medicine | DX: I48.91 Unspecified atrial fibrillation (principal); R94.31 Abnormal electrocardiogram [ECG] [EKG] | CPT/HCPCS: 93010 ==

== ENCOUNTER → 2023-11-18 15:01 | Outpatient (BNV) | payer MEDICARE, SELFPAY | PROVIDERS: Admitting Provider Physician Assistant Medical; Emergency Provider Emergency Medicine; PCP Nurse Practitioner Adult Health; Visit Provider Nurse Practitioner Acute Care | DX: N17.9 Acute kidney failure, unspecified (principal) | CPT/HCPCS: 99223; 99239; 99499 ==

== ENCOUNTER 2024-07-12 02:24 | Emergency (ER) | payer MEDICARE, SELFPAY ==
[2024-07-12] VITALS (8 sets, daily range): BP systolic 129–159; BP diastolic 88–112; PULSE 70–85; RESP 16–20; TEMP 36.1–36.9; O2SAT 95–99; BMI 26.4
--- NOTE | ~2024-07-12 | XR_ITS ---
CLINICAL HISTORY: pain, injury 4 view left knee Comparison: None Findings: Bones intact. No dislocations. There is tricompartmental degenerative change and chondrocalcinosis noted. Diffuse vascular calcification present Impression: Advanced degenerative changes. No definite acute process. This document has been electronically signed by: Ariel Santacruz MD on 07/12/2024 07:49:39
--- NOTE | ~2024-07-12 | CT_ITS ---
EXAMINATION: CT CERVICAL SPINE WITHOUT CONTRAST CLINICAL INFORMATION: Fall, pain COMPARISON: 11/18/2023. TECHNIQUE: Spiral CT imaging of the cervical spine performed in axial plane without contrast. Multiplanar reformatted images were constructed from the axial data set. This CT examination was performed using dose optimization techniques as appropriate, variously including the following: *Automated exposure control *Adjustment of mA and/or kV according to patient size (this includes techniques or standardized protocols for targeted exams where dose is matched to indication/reason for exam; i.e. extremities or head) *Use of iterative reconstruction technique FINDINGS: CORONAL ALIGNMENT: -Normal. SAGITTAL ALIGNMENT: -Exaggerated lordosis, particularly in the inferior aspect of the C-spine. -There is a 2 mm degenerative appearing retrolisthesis of C4 on C5. -There is a 2 mm anterolisthesis of C7 on T1. C1-C2 AND CRANIOCERVICAL JUNCTION: -Intact and normally aligned. There are mild degenerative changes atlantoaxial joint with minimal calcified pannus. No craniocervical Junction narrowing. VERTEBRAL BODIES AND FACETS: -Osteopenia. No fracture, traumatic subluxation, compression deformity, or suspicious bone lesion. -Normal facet alignment bilaterally without facet subluxation. Mild degenerative hypertrophic facet changes bilaterally. -There are multilevel uncinate hypertrophic osteophytic spurs. DISCS: -There is severe multilevel disc degeneration with relative sparing of C2-3. CENTRAL CANAL: -Within the confines of modality, there is likely at least moderate central canal stenosis present at C4-5, and C5-6 due to calcified disc osteophytic ridge complexes. -No large disc herniation identified within limitations of modality. PREVERTEBRAL AND PARAVERTEBRAL SOFT TISSUES: -Normal. No soft tissue swelling. -Mildly heterogeneous thyroid without discrete nodule. -Moderate bilateral carotid bulb calcification. LUNG APICES: -There are postop changes in the posterior left apex. There is a calcified granuloma in the bilateral apices. -There is mild emphysema. CT/CT cervical spine wo IV con IMPRESSION: 1. No CT evidence of acute cervical spine fracture or injury. 2. Exaggerated cervical lordosis with moderate degenerative spondylosis as discussed. 3. Postop changes in the posterior left lung apex. Electronically signed by: Arnol Cleary MD 07/12/2024 09:27 AM [facility]
--- NOTE | ~2024-07-12 | CT_ITS ---
EXAMINATION: CT HEAD WITHOUT CONTRAST CLINICAL INFORMATION: fall, pain COMPARISON: CT dated November 18, 2023. TECHNIQUE: Contiguous axial imaging was performed from the skull base to vertex without intravenous administration of contrast. This CT examination was performed using dose optimization techniques as appropriate, variously including the following: *Automated exposure control *Adjustment of mA and/or kV according to patient size (this includes techniques or standardized protocols for targeted exams where dose is matched to indication/reason for exam; i.e. extremities or head) *Use of iterative reconstruction technique DLP: 784.39 and 290.51 mGy-cm FINDINGS: Limited by patient's motion artifact. No gross acute intracranial hemorrhage, mass effect, midline shift, hydrocephalus or herniation. Encephalomalacia, right cuneus. Old lacunar infarcts, basal ganglia.. Prominence of the extra-axial CSF spaces cerebral sulci and ventricles. Multifocal patchy deep periventricular white matter both hemispheres. Calcified plaques in the V4 segments of the vertebral arteries and the cavernous supracavernous segments both ICA. No acute cortical disruption and the bony calvarium. Tympanic cavities and mastoid air cells are aerated. Mucosal thickening and secretions in the left ethmoid air cells. CT/CT head/brain wo IV con IMPRESSION: No gross acute fracture, bony calvarium. No acute intracranial hemorrhage. Small vessel occlusive disease. Global cerebral atrophy. Old infarct/vascular insult left GENERAL PASSENGER AGENT territory. The examination is limited due to patient's motion artifact. Electronically signed by: Niko Armando MD 07/12/2024 09:23 AM [facility]
--- NOTE | ~2024-07-12 | XR_ITS ---
CLINICAL HISTORY: pain, injury 3 view left shoulder Comparison: None Findings: No fractures or dislocations. Severe degenerative change of the glenohumeral and acromioclavicular joints. There is flattening of the humeral head and complete joint space loss of the glenohumeral joint No erosions. No radiopaque foreign body. IMPRESSION: No fracture or acute malalignment. Severe degenerative change This document has been electronically signed by: Ariel Santacruz MD on 07/12/2024 07:49:16
--- NOTE | ~2024-07-12 | XR_ITS ---
CLINICAL HISTORY: pain, injury 3 view right shoulder Comparison: None Findings: The right shoulder prosthesis appears intact. No periprosthetic fracture. Visualized ribs are unremarkable IMPRESSION: 1. No acute findings This document has been electronically signed by: Ariel Santacruz MD on 07/12/2024 07:48:31
--- NOTE | ~2024-07-12 | XR_ITS ---
CLINICAL HISTORY: pain, injury 4 view right knee Comparison: None Findings: The right knee prosthesis device appears intact without periprosthetic fracture identified. Diffuse vascular calcification. IMPRESSION: Intact right knee prosthesis without evidence of periprosthetic fracture. This document has been electronically signed by: Ariel Santacruz MD on 07/12/2024 07:48:46
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
--- NOTE | 2024-07-12 07:25 | PC.NURSE ---
Delay in meds due to pt taken to CT and awaiting missing med from pharmacy
[2024-07-12] MEDS: ondansetron HCL 4 MG/2 ML VIAL IVPUSH (07:33)
[2024-07-12] MEDS: Morphine Sulfate 4 MG/ML CARTRIDGE IVPUSH (07:33)
[2024-07-12] MEDS: Acetaminophen 1,000 MG/100 ML PIGGYBACK 400 MG IV (07:48)
[2024-07-12 07:57] LABS: MANUAL DIFF FLAG NO
[2024-07-12 08:04] LABS: Basophils Percent Auto 0.6 % (0-2); Eosinophils Absolute Auto 0.1 X10*3/uL (0.0-0.4); Eosinophils Percent Auto 2.1 % (0-4); Hematocrit 40.5 % (42.0-52.0); Hemoglobin 13.8 g/dl (14.0-18.0); Imm Gran Abs Auto 0.02 X10*3/uL (0.00-0.03); Imm Gran Pct Auto 0.3 % (0.0-0.4); Lymphocytes Absolute Auto 1.1 X10*3/uL (1.2-4.9); Lymphocytes Percent Auto 16.8 % (20-40); Mean Corpuscular HGB Conc 34.1 g/dl (31.0-36.0); Mean Corpuscular Hemoglobin 27.5 pg (27.0-33.0); Mean Corpuscular Volume 80.7 fL (80.0-98.0); Mean Platelet Volume 10.4 fL (9.4-12.4); Monocytes Absolute Auto 0.8 X10*3/uL (0.1-1.2); Monocytes Percent Auto 11.7 % (2-11); Neutrophils Absolute Auto 4.6 x10*3/uL (2.0-8.3); Neutrophils Percent Auto 68.5 % (45-73); Platelet Count 150 X10*3/uL (160-400); Red Blood Count 5.02 X10*6/uL (4.60-5.80); Red Cell Distribution Width 17.7 % (11.0-16.0); White Blood Count 6.7 X10*3/uL (4.8-10.8)
[2024-07-12 08:11] LABS: INTERNATIONAL NORM RATIO 1.2 (0.9-1.1); Prothrombin Time 13.4 SEC (10.9-12.4)
[2024-07-12 08:13] LABS: Partial Thromboplastin Time 35.2 SEC (26.0-36.8)
[2024-07-12 08:20] LABS: Alanine Aminotransferase 17 U/L (0-40); Albumin Level 3.8 g/dL (3.5-5.0); Alkaline Phosphatase 110 U/L (39-117); Anion Gap 12 (12-20); Aspartate Amino Transferase 17 U/L (5-37); Bilirubin Total 1.7 mg/dL (0.0-1.0); Blood Urea Nitrogen 25 mg/dL (9-16); Calcium 8.9 mg/dL (8.4-10.2); Carbon Dioxide 19 mmol/L (22-29); Chloride 109 mmol/L (96-108); Creatinine Clr Calc Pharmacy 53.1; Estimated Glomerular Filt Rate 49; Glucose Random 98 mg/dL (60-115); Potassium 3.5 mmol/L (3.3-5.1); Sodium 136 mmol/L (135-145); Total Protein 7.1 g/dL (6.5-8.0)
[2024-07-12 11:05] LABS: Influenza A PCR NEGATIVE (Negative); Influenza B PCR NEGATIVE (Negative); Resp Syncy Virus RNA Qual PCR NEGATIVE (Negative); SARS COV2 PCR INHOUSE NEGATIVE (Negative)
[2024-07-12] MEDS: oxyCODONE HCl Immed Release 5 MG TABLET PO (14:35)
--- NOTE | 2024-07-12 14:39 | PC.NURSE ---
Pt refused PRN Tylenol for pain, provider placed order for PRN Oxy, medicated per JUL. Swallows pills whole. Resting in bed.
--- NOTE | 2024-07-12 15:27 | MHC.CM.PN ---
PT evaluated pt, they recommend STR. This CM met with pt, he is in agreement with going to [facility], he would like to go back to [facility] ([facility] Referral placed to [facility] in [facility], they are unable to accept pt due to him owing them $54,000, and per PVR he was denied by [employer]. Referral [place] [facility].
--- NOTE | 2024-07-12 17:11 | PC.NURSE ---
Plan per CM is referral for STR, plan of care ongoing.
--- NOTE | 2024-07-12 18:10 | PC.NURSE ---
Pt unsure of his home meds/ doses. No list available.
--- NOTE | 2024-07-12 18:25 | PC.NURSE ---
Pt endorsing SI plans to CM, reporting he wants to and throw himself in river. provider updated, 1:1 sitter at bedside. box toe stitcher leads removed.
--- NOTE | 2024-07-12 18:45 | PC.NURSE ---
Changed over into safety clothing. Pt threatening and agitated
--- NOTE | 2024-07-12 20:42 | PC.NURSE ---
offered pt PRN oxy for pain, pt refusing, stated shove it up your ass I take 30 mg pt agitated and angry in stretcher swearing.
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
[2024-07-12] MEDS: oxyCODONE HCl Immed Release 15 MG TABLET PO (21:05)
--- NOTE | 2024-07-12 21:07 | PC.NURSE ---
medicated per jul, notified Johnny Ferguson
[2024-07-13] VITALS (10 sets, daily range): BP systolic 98–153; BP diastolic 63–111; PULSE 63–79; RESP 14–16; TEMP 36.1–37.7; O2SAT 92–100
--- NOTE | 2024-07-13 03:17 | PC.NURSE ---
Addendum entered by Phyllis Damon RN 07/13/24 04:00: pt continues to shout, threaten to leave, verbally aggressive to staff, states he doesn't remember how he got here, he hasn't seen a Dr. since he's been here and no one is doing anything for him. Pt denying previous SI statements. Original Note: attempted med req with pt but pt is a poor historian states I receive my pills in a bubble wrap, I don't know what I take. Pt is very rude, verbally aggressive with staff.
--- NOTE | 2024-07-13 03:53 | MHC.EDTECH ---
at this time this pt began complaining that he has not seen a provider in over 5 hours and has been asking for medications, the pt was educated that he has seen a provider and medications need to be cleared through pharmacy, and that due to SI statements he is en route to meet with the care team in order to undergo a psych consult. x3 RN's has attempted to redirect him. He is threatening to become combative, and security called to bedside.
[2024-07-13] MEDS: oxyCODONE HCl Immed Release 5 MG TABLET PO (04:22)
[2024-07-13] MEDS: Acetaminophen 325 MG TABLET 650 MG PO ×2 (04:22→21:41)
--- NOTE | 2024-07-13 07:10 | PC.NURSE ---
Patient sleeping in bed at this time, calm and cooperatice, sitter in place for safety
--- NOTE | 2024-07-13 09:11 | MHC.CM.ED ---
Patient remains in ER. Psych consult pending. Received telephone call from [employer]. Lisset can be reached via telephone at [phone], ext. [phone]. Lisset aware psych consult is pending. CM will reach out to Lisset when there is an update from Psych. Continue to monitor for d/c needs.
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
[2024-07-13] MEDS: oxyCODONE HCl Immed Release 15 MG TABLET PO ×2 (11:44→20:01)
--- NOTE | 2024-07-13 12:02 | PC.NURSE ---
This rn at bedside, denies SI, states he was angry and made those statements out of anger. provider aware
--- NOTE | 2024-07-13 13:00 | PHA.MEDREC ---
Addendum entered by Carie Cat [facility] 07/13/24 13:09: Reviewed by [facility] Original Note: Pharmacy Consult ? Medication Reconciliation Pharmacy has completed the medication reconciliation. Spoke with patient and he was able to confirm what he is taking for medications but did not know the dose of them. He states he was previously admitted to [facility] and [facility] and what he was getting there for medications is the most up to date dosages. I called and got a med list to confirm the med rec. The patient did confirm the Oxycodone and stated he was taking a 30mg regimen and now he is trying to wean himself off of it and states he is now taking a 15mg regimen every 4 hours as needed for pain. The patient stated he last took his medications a few days ago
[2024-07-13] MEDS: Atorvastatin Calcium 40 MG TABLET PO (16:17)
[2024-07-13] MEDS: amLODIPine Besylate 10 MG TABLET PO (16:17)
[2024-07-13] MEDS: Apixaban 5 MG TABLET PO (16:17)
[2024-07-13] MEDS: allopurinoL 100 MG TABLET PO (16:18)
[2024-07-13] MEDS: hydrALAZINE HCl 50 MG TABLET PO (16:18)
[2024-07-13] MEDS: carvediloL 12.5 MG TABLET PO (16:18)
[2024-07-13] MEDS: Multivitamin TABLET 1 TAB PO (16:18)
[2024-07-13] MEDS: Sucralfate 1 GM TABLET PO (16:18)
[2024-07-13] MEDS: Furosemide 40 MG TABLET PO (16:19)
[2024-07-13] MEDS: Cholecalciferol (Vitamin D3) 25 MCG TABLET PO (16:19)
[2024-07-13] MEDS: Isosorbide Mononitrate 60 MG TAB.ER.24H PO (16:19)
[2024-07-13] MEDS: Spironolactone 25 MG TABLET PO (16:19)
[2024-07-13] MEDS: Sertraline HCL 100 MG TABLET PO (16:44)
--- NOTE | 2024-07-13 20:11 | PC.NURSE ---
pt screaming at staff walking past exam room does anyone work here?! I've been waiting 4 fucking hours for my medications, cant you hire some competent help?! advised pt that I although I am not his primary nurse I would be happy to assist him. pt requesting PRN oxy- pt medicated per JUL. Primary RN notified, pt linens were changed pt repositioned in bed, call wray within reach.
[2024-07-14] VITALS (13 sets, daily range): BP systolic 86–152; BP diastolic 48–98; PULSE 52–69; RESP 16–18; TEMP 36.6–36.9; O2SAT 93–96
--- NOTE | 2024-07-14 03:02 | PC.NURSE ---
Offered food and fluids.
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
[2024-07-14] MEDS: Sucralfate 1 GM TABLET PO ×4 (07:40→22:13)
[2024-07-14] MEDS: Omeprazole 20 MG CAPSULE.DR PO (07:40)
[2024-07-14] MEDS: oxyCODONE HCl Immed Release 15 MG TABLET PO ×2 (07:43→22:13)
--- NOTE | 2024-07-14 09:42 | MHC.CARE ---
T/w contacte Jackie Mederos NP re: dispo from psy consult. She reports that patient is not IPLOC, it was a capacity assessment and she will have her note in shortly.
--- NOTE | 2024-07-14 09:46 | MHC.EDTECH ---
pt was given breakfast tray and I noticed he is naked, gave him gown to wear it. Pt understand and in agreement.
--- NOTE | 2024-07-14 10:35 | MHC.CM.ED ---
Patient remains in ER. Per Jackie, weave defect charting clerk, patient has dementia and she does not feel he has capacity to make his own decisions. Simin Lopez CM director aware and working on guardianship and conservatorship. Anticipate patient will with us a while. Received telephone call from Erum Duncan of [facility]. Erum updated with plan. Continue to monitor for d/c needs.
--- NOTE | 2024-07-14 10:56 | MHC.EDTECH ---
pt call nils asking for a blanket, i explained to the pt that I have to draw critical labs and will be back within 3 min, asked pt to wear a gown since he is cold and naked. Pt refused.
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
--- NOTE | 2024-07-14 11:05 | MHC.EDTECH ---
Went to the room to clean urine from the floor, pt stated you have word bitch on your forehead and you dress horribly you are a bitch!!!
[2024-07-14] MEDS: Furosemide 40 MG TABLET PO (11:17)
[2024-07-14] MEDS: OLANZapine 5 MG TABLET PO (11:17)
[2024-07-14] MEDS: Atorvastatin Calcium 40 MG TABLET PO (11:17)
[2024-07-14] MEDS: amLODIPine Besylate 10 MG TABLET PO (11:21)
--- NOTE | 2024-07-14 11:28 | ECG_ITS ---
Test Reason : BRADYCARDIA Blood Pressure : */* mmHG Vent. Rate : 39 BPM Atrial Rate : * BPM P-R Int : * ms QRS Dur : 94 ms QT Int : 482 ms P-R-T Axes : * 27 -76 degrees QTcB Int : 388 ms Atrial fibrillation with slow ventricular response Nonspecific ST and T wave abnormality Abnormal ECG When compared with ECG of 18-Nov-2023 12:27, Minimal criteria for Inferior infarct are no longer Present QT has shortened Referred By: Lubna Arnold Electronically Signed By: Javad Pacheco
[2024-07-14] MEDS: Cholecalciferol (Vitamin D3) 25 MCG TABLET PO (11:38)
[2024-07-14] MEDS: Isosorbide Mononitrate 60 MG TAB.ER.24H PO (11:38)
[2024-07-14] MEDS: Apixaban 5 MG TABLET PO ×2 (11:40→22:12)
[2024-07-14] MEDS: Spironolactone 25 MG TABLET PO (11:40)
[2024-07-14] MEDS: Potassium Chloride ER 20 MEQ TAB.ER.PRT PO (11:41)
[2024-07-14] MEDS: Sertraline HCL 100 MG TABLET PO (11:42)
[2024-07-14] MEDS: allopurinoL 100 MG TABLET PO (11:42)
[2024-07-14] MEDS: hydrALAZINE HCl 50 MG TABLET PO (11:42)
[2024-07-14] MEDS: Multivitamin TABLET 1 TAB PO (11:43)
--- NOTE | 2024-07-14 18:08 | PC.NURSE ---
Patient alert to self and place. Patient on tele: afib 38-60's held hydralizine and coreg bp too low and heart rate. Patient incontinent of urine and stool. Patient ornery and yells at you if he doesn't want to be bothered. Patient vulgar language with tech (Erin). Patient was amenable if you explained to him why you were waking him sometimes. Nikita HANKINS held coreg this am, Willian HANKINS. held hydralizine. bp 86/52.
--- NOTE | 2024-07-14 20:23 | PC.NURSE ---
provided dinner tray, sat pt up to eat
--- NOTE | 2024-07-14 22:16 | PC.NURSE ---
BP meds held per [facility] Burton. HR 57
[2024-07-15 00:52] VITALS: BP 130/63; PULSE 63; RESP 12; O2SAT 95
[2024-07-15 05:07] VITALS: BP 120/79; PULSE 66; RESP 16; TEMP 36.6; O2SAT 95
[2024-07-15] MEDS: oxyCODONE HCl Immed Release 15 MG TABLET PO ×3 (05:09→20:33)
[2024-07-15] MEDS: Omeprazole 20 MG CAPSULE.DR PO (06:17)
--- NOTE | 2024-07-15 06:57 | PC.NURSE ---
bed changed, assist with washing/changing gown. given a urinal to use while awake and aware of urge to pee
[2024-07-15 09:26] VITALS: BP 154/97; PULSE 64; RESP 16; TEMP 36.6; O2SAT 98
[2024-07-15] MEDS: Sucralfate 1 GM TABLET PO ×4 (09:28→20:28)
[2024-07-15] MEDS: Apixaban 5 MG TABLET PO ×2 (09:28→20:28)
[2024-07-15] MEDS: Furosemide 40 MG TABLET PO (09:28)
[2024-07-15] MEDS: amLODIPine Besylate 10 MG TABLET PO (09:28)
[2024-07-15] MEDS: hydrALAZINE HCl 50 MG TABLET PO ×3 (09:28→20:28)
[2024-07-15] MEDS: allopurinoL 100 MG TABLET PO (09:28)
[2024-07-15] MEDS: Potassium Chloride ER 20 MEQ TAB.ER.PRT PO (09:28)
[2024-07-15] MEDS: Atorvastatin Calcium 40 MG TABLET PO (09:28)
[2024-07-15] MEDS: Spironolactone 25 MG TABLET PO (09:28)
[2024-07-15] MEDS: Isosorbide Mononitrate 60 MG TAB.ER.24H PO (09:28)
[2024-07-15] MEDS: Sertraline HCL 100 MG TABLET PO (09:29)
[2024-07-15] MEDS: Cholecalciferol (Vitamin D3) 25 MCG TABLET PO (09:29)
[2024-07-15] MEDS: Multivitamin TABLET 1 TAB PO (09:29)
[2024-07-15] MEDS: carvediloL 12.5 MG TABLET PO ×2 (09:29→20:28)
--- NOTE | 2024-07-15 09:43 | PC.NURSE ---
assumed care of patient at 0700, patient is awake and alert, resp even and unlabored, VS. patient medicated per MAR. patient remains calm and cooperative. sitting up in bed eating his breakfast, sheets dry and clean. emptied 500cc urine out of urinal
[2024-07-15 16:25] VITALS: BP 114/70; PULSE 58; RESP 20; TEMP 36.9; O2SAT 95
[2024-07-15 20:26] VITALS: BP 126/84; PULSE 60; RESP 16; TEMP 36.6; O2SAT 97
[2024-07-15 20:28] VITALS: BP 126/84; PULSE 60
--- NOTE | 2024-07-15 21:55 | PC.NURSE ---
pt moved over to hospital bed. bed alarm on. nad. watching tv, requested apple juice. call wray within reach.
[2024-07-16] VITALS (9 sets, daily range): BP systolic 110–133; BP diastolic 66–84; PULSE 57–83; RESP 16–18; TEMP 36.6–36.8; O2SAT 94–99
[2024-07-16] MEDS: oxyCODONE HCl Immed Release 15 MG TABLET PO ×3 (04:36→22:45)
[2024-07-16] MEDS: Omeprazole 20 MG CAPSULE.DR PO (07:12)
[2024-07-16] MEDS: Sucralfate 1 GM TABLET PO ×4 (07:12→22:46)
[2024-07-16] MEDS: Atorvastatin Calcium 40 MG TABLET PO (08:27)
[2024-07-16] MEDS: Multivitamin TABLET 1 TAB PO (08:27)
[2024-07-16] MEDS: Isosorbide Mononitrate 60 MG TAB.ER.24H PO (08:27)
[2024-07-16] MEDS: Apixaban 5 MG TABLET PO ×2 (08:27→22:45)
[2024-07-16] MEDS: allopurinoL 100 MG TABLET PO (08:27)
[2024-07-16] MEDS: hydrALAZINE HCl 50 MG TABLET PO ×3 (08:27→22:45)
[2024-07-16] MEDS: Sertraline HCL 100 MG TABLET PO (08:27)
[2024-07-16] MEDS: Potassium Chloride ER 20 MEQ TAB.ER.PRT PO (08:27)
[2024-07-16] MEDS: amLODIPine Besylate 10 MG TABLET PO (08:28)
[2024-07-16] MEDS: Cholecalciferol (Vitamin D3) 25 MCG TABLET PO (08:28)
[2024-07-16] MEDS: Spironolactone 25 MG TABLET PO (08:28)
[2024-07-16] MEDS: Furosemide 40 MG TABLET PO (08:28)
--- NOTE | 2024-07-16 17:36 | MHC.EDTECH ---
per devulcanizer charger pt given back personal phone
--- NOTE | 2024-07-16 18:17 | PC.NURSE ---
1500ml emptied out of urine during shift of clear yellow urine
[2024-07-16] MEDS: carvediloL 12.5 MG TABLET PO (22:45)
[2024-07-17] VITALS (8 sets, daily range): BP systolic 95–141; BP diastolic 51–92; PULSE 44–69; RESP 16; TEMP 36.6–36.9; O2SAT 95–97
[2024-07-17] MEDS: Omeprazole 20 MG CAPSULE.DR PO (06:06)
[2024-07-17] MEDS: oxyCODONE HCl Immed Release 15 MG TABLET PO ×2 (06:06→11:43)
[2024-07-17] MEDS: Sucralfate 1 GM TABLET PO ×4 (07:41→22:14)
[2024-07-17] MEDS: Potassium Chloride ER 20 MEQ TAB.ER.PRT PO (08:54)
[2024-07-17] MEDS: Atorvastatin Calcium 40 MG TABLET PO (08:54)
[2024-07-17] MEDS: allopurinoL 100 MG TABLET PO (08:54)
[2024-07-17] MEDS: Apixaban 5 MG TABLET PO ×2 (08:54→22:05)
[2024-07-17] MEDS: Cholecalciferol (Vitamin D3) 25 MCG TABLET PO (08:54)
[2024-07-17] MEDS: Multivitamin TABLET 1 TAB PO (08:54)
[2024-07-17] MEDS: Sertraline HCL 100 MG TABLET PO (11:37)
--- NOTE | 2024-07-17 12:37 | MHC.CM.ED ---
Patient remains in ER. Medical certificate completed and signed by Dr Barlow. Sent to Saleem and [place] by Simin Lopez CM Director. Continue to monitor for d/c needs.
--- NOTE | 2024-07-17 16:40 | MHC.EDTECH ---
pt was incontinent of urine and was cleaned up
[2024-07-17] MEDS: hydrALAZINE HCl 50 MG TABLET PO ×2 (16:46→22:03)
[2024-07-17] MEDS: carvediloL 12.5 MG TABLET PO (22:05)
[2024-07-18 03:34] VITALS: BP 123/70; PULSE 52; RESP 95; O2SAT 97
[2024-07-18] MEDS: Omeprazole 20 MG CAPSULE.DR PO (06:22)
[2024-07-18 07:40] VITALS: BP 128/66; PULSE 59; RESP 16; TEMP 36.6; O2SAT 96
[2024-07-18 09:18] VITALS: BP 115/63
[2024-07-18] MEDS: Sucralfate 1 GM TABLET PO ×3 (09:18→21:14)
[2024-07-18] MEDS: Potassium Chloride ER 20 MEQ TAB.ER.PRT PO (09:18)
[2024-07-18] MEDS: Spironolactone 25 MG TABLET PO (09:18)
[2024-07-18] MEDS: Sertraline HCL 100 MG TABLET PO (09:18)
[2024-07-18] MEDS: hydrALAZINE HCl 50 MG TABLET PO ×3 (09:18→21:14)
[2024-07-18] MEDS: Isosorbide Mononitrate 60 MG TAB.ER.24H PO (09:18)
[2024-07-18 09:19] VITALS: BP 115/63; PULSE 65
[2024-07-18] MEDS: Cholecalciferol (Vitamin D3) 25 MCG TABLET PO (09:19)
[2024-07-18] MEDS: Furosemide 40 MG TABLET PO (09:19)
[2024-07-18] MEDS: carvediloL 12.5 MG TABLET PO ×2 (09:19→21:14)
[2024-07-18] MEDS: amLODIPine Besylate 10 MG TABLET PO (09:19)
[2024-07-18] MEDS: Apixaban 5 MG TABLET PO ×2 (09:19→21:14)
[2024-07-18] MEDS: Atorvastatin Calcium 40 MG TABLET PO (09:19)
[2024-07-18] MEDS: Multivitamin TABLET 1 TAB PO (09:19)
[2024-07-18] MEDS: allopurinoL 100 MG TABLET PO (09:19)
[2024-07-18 14:00] VITALS: BP 102/66; PULSE 59; RESP 12; TEMP 36.7; O2SAT 95
[2024-07-18] MEDS: oxyCODONE HCl Immed Release 15 MG TABLET PO (17:54)
--- NOTE | 2024-07-18 18:58 | PC.NURSE ---
Pt brought to overflow unit at approx 1115. Linens changed, pt cleaned. Offered bedpan. Pt alert, oriented, calm, coopertive. Respirations even and unlabored. Offering no complaints.
--- NOTE | 2024-07-18 19:48 | PC.NURSE ---
this rn assumed care of pt, pt resting in stretcher, requesting zofran from nausea at this time. Willian HANKINS aware, awaiting new orders.
[2024-07-18] MEDS: Ondansetron ODT 4 MG TAB.RAPDIS TRANSLINGU (19:56)
--- NOTE | 2024-07-18 19:58 | PC.NURSE ---
pt medicated per mar for nausea, tolerated well.
[2024-07-18 20:33] VITALS: BP 112/64; PULSE 84; RESP 16; TEMP 37.1; O2SAT 96
--- NOTE | 2024-07-18 21:32 | PC.NURSE ---
pt medicated per mar,tolerated whole well with water.
[2024-07-19] VITALS (9 sets, daily range): BP systolic 102–123; BP diastolic 56–86; PULSE 54–59; RESP 16–18; TEMP 36.6–36.9; O2SAT 93–95
--- NOTE | 2024-07-19 00:01 | PC.NURSE ---
pt medicated per jul for 8/10 left knee pain, tolerated well with water.
[2024-07-19] MEDS: oxyCODONE HCl Immed Release 15 MG TABLET PO ×4 (06:11→20:17)
[2024-07-19] MEDS: Omeprazole 20 MG CAPSULE.DR PO (06:11)
[2024-07-19] MEDS: Sucralfate 1 GM TABLET PO ×4 (07:08→20:17)
[2024-07-19] MEDS: Multivitamin TABLET 1 TAB PO (09:55)
[2024-07-19] MEDS: Spironolactone 25 MG TABLET PO (09:57)
[2024-07-19] MEDS: Atorvastatin Calcium 40 MG TABLET PO (09:57)
[2024-07-19] MEDS: Cholecalciferol (Vitamin D3) 25 MCG TABLET PO (09:57)
[2024-07-19] MEDS: allopurinoL 100 MG TABLET PO (09:57)
[2024-07-19] MEDS: amLODIPine Besylate 10 MG TABLET PO (09:58)
[2024-07-19] MEDS: hydrALAZINE HCl 50 MG TABLET PO ×3 (09:58→20:17)
[2024-07-19] MEDS: Potassium Chloride ER 20 MEQ TAB.ER.PRT PO (09:58)
[2024-07-19] MEDS: Docusate Sodium 100 MG CAPSULE 200 MG PO (09:59)
[2024-07-19] MEDS: Apixaban 5 MG TABLET PO ×2 (09:59→20:17)
[2024-07-19] MEDS: Furosemide 40 MG TABLET PO (09:59)
[2024-07-19] MEDS: Isosorbide Mononitrate 60 MG TAB.ER.24H PO (10:49)
[2024-07-19] MEDS: Sertraline HCL 100 MG TABLET PO (10:50)
--- NOTE | 2024-07-19 14:18 | MHC.CM.ED ---
Patient remains in ER. Per Simin Lopez CM Director, patient's daughter will serve as his guardian and conservator. Just waiting for a court date. Continue to monitor for d/c needs.
[2024-07-20] VITALS (7 sets, daily range): BP systolic 103–132; BP diastolic 57–75; PULSE 58–61; RESP 14–17; TEMP 36.2–36.8; O2SAT 93–95
[2024-07-20] MEDS: oxyCODONE HCl Immed Release 15 MG TABLET PO ×4 (02:33→21:41)
--- NOTE | 2024-07-20 04:20 | MHC.EDTECH ---
pt states he wants to speak to a doctor in the am. states that he knows that they want to do a guardianship and states that I didn't come here because I was crazy. I came here because I was in pain. I just want to go home
[2024-07-20] MEDS: Omeprazole 20 MG CAPSULE.DR PO (06:16)
--- NOTE | 2024-07-20 06:27 | PC.NURSE ---
pt resting comfortably throughout the night, no apparent distress. rang call wray for pain meds frequently, admin when timing was appropriate according to MAR
[2024-07-20] MEDS: allopurinoL 100 MG TABLET PO (08:25)
[2024-07-20] MEDS: carvediloL 12.5 MG TABLET PO ×2 (08:25→20:06)
[2024-07-20] MEDS: Atorvastatin Calcium 40 MG TABLET PO (08:25)
[2024-07-20] MEDS: amLODIPine Besylate 10 MG TABLET PO (08:25)
[2024-07-20] MEDS: hydrALAZINE HCl 50 MG TABLET PO ×3 (08:26→20:07)
[2024-07-20] MEDS: Potassium Chloride ER 20 MEQ TAB.ER.PRT PO (08:26)
[2024-07-20] MEDS: Spironolactone 25 MG TABLET PO (08:26)
[2024-07-20] MEDS: Multivitamin TABLET 1 TAB PO (08:26)
[2024-07-20] MEDS: Cholecalciferol (Vitamin D3) 25 MCG TABLET PO (08:26)
[2024-07-20] MEDS: Docusate Sodium 100 MG CAPSULE 200 MG PO (08:26)
[2024-07-20] MEDS: Sucralfate 1 GM TABLET PO ×4 (08:26→20:06)
[2024-07-20] MEDS: Apixaban 5 MG TABLET PO ×2 (08:26→20:07)
[2024-07-20] MEDS: Furosemide 40 MG TABLET PO (08:27)
[2024-07-20] MEDS: Sertraline HCL 100 MG TABLET PO (09:18)
[2024-07-20] MEDS: Isosorbide Mononitrate 60 MG TAB.ER.24H PO (09:18)
--- NOTE | 2024-07-20 09:34 | PC.NURSE ---
assumed care of patient at 0700, patient is awake and alert, resp even and unlabored, patient medicated per JUL, requested PRN oxycodone for 8/10 pain. patient sat up and ate breakfast this morning
--- NOTE | 2024-07-20 12:26 | PC.NURSE ---
patient sitting up eating lunch, awake and alert, resp even and unlabored
--- NOTE | 2024-07-20 22:14 | PC.NURSE ---
Patient medicated with Oxycodone 15 mg PO for 9/10 generalized pain. He requested turkey sandwich with mayonnaise-provided and tolerate well. Jeanette currently resting in hospital bed, watching TV, call wray within patient's reach. Plan of care ongoing.
[2024-07-21] MEDS: oxyCODONE HCl Immed Release 15 MG TABLET PO ×4 (03:53→23:06)
[2024-07-21] MEDS: Omeprazole 20 MG CAPSULE.DR PO (05:40)
[2024-07-21 05:51] VITALS: BP 109/69; PULSE 61; RESP 16; TEMP 36.8; O2SAT 95
[2024-07-21] MEDS: Sertraline HCL 100 MG TABLET PO (08:25)
[2024-07-21] MEDS: Isosorbide Mononitrate 60 MG TAB.ER.24H PO (08:25)
[2024-07-21] MEDS: hydrALAZINE HCl 50 MG TABLET PO ×3 (08:26→20:19)
[2024-07-21] MEDS: Docusate Sodium 100 MG CAPSULE 200 MG PO (08:27)
[2024-07-21] MEDS: Sucralfate 1 GM TABLET PO ×4 (08:27→20:19)
[2024-07-21] MEDS: Potassium Chloride ER 20 MEQ TAB.ER.PRT PO (08:27)
[2024-07-21] MEDS: Cholecalciferol (Vitamin D3) 25 MCG TABLET PO (08:27)
[2024-07-21] MEDS: allopurinoL 100 MG TABLET PO (08:27)
[2024-07-21] MEDS: carvediloL 12.5 MG TABLET PO (08:27)
[2024-07-21] MEDS: Furosemide 40 MG TABLET PO (08:28)
[2024-07-21] MEDS: Atorvastatin Calcium 40 MG TABLET PO (08:28)
[2024-07-21] MEDS: Apixaban 5 MG TABLET PO ×2 (08:28→20:19)
[2024-07-21] MEDS: Spironolactone 25 MG TABLET PO (08:28)
[2024-07-21] MEDS: amLODIPine Besylate 10 MG TABLET PO (08:28)
[2024-07-21] MEDS: Multivitamin TABLET 1 TAB PO (08:28)
[2024-07-21 13:11] VITALS: BP 110/62; PULSE 53; RESP 16; TEMP 36.8; O2SAT 95
--- NOTE | 2024-07-21 18:38 | PC.NURSE ---
no acute events this shift. pt using urinal and bedpan.
[2024-07-21 18:48] VITALS: BP 101/56; PULSE 59; RESP 16; TEMP 37.1; O2SAT 94
[2024-07-21 20:15] VITALS: BP 111/59; PULSE 62; RESP 19; TEMP 36.8; O2SAT 97
[2024-07-21] MEDS: Acetaminophen 325 MG TABLET 650 MG PO (20:21)
[2024-07-21 20:23] VITALS: PULSE 58
--- NOTE | 2024-07-21 20:27 | PC.NURSE ---
medicated per JUL. carvedilol held for HR of 58. states needs are met and he is comfortable. call wray and urinal in reach.
--- NOTE | 2024-07-21 23:21 | PC.NURSE ---
medicated with oxy per JUL. remains calm, comfortable, a+o. call wray in reach
[2024-07-22] VITALS (12 sets, daily range): BP systolic 112–128; BP diastolic 63–75; PULSE 52–60; RESP 14–18; TEMP 36.6–36.7; O2SAT 94–97
[2024-07-22] MEDS: oxyCODONE HCl Immed Release 15 MG TABLET PO ×3 (05:35→19:23)
[2024-07-22] MEDS: Omeprazole 20 MG CAPSULE.DR PO (05:35)
[2024-07-22] MEDS: Docusate Sodium 100 MG CAPSULE 200 MG PO (10:13)
[2024-07-22] MEDS: Potassium Chloride ER 20 MEQ TAB.ER.PRT PO (10:15)
[2024-07-22] MEDS: Cholecalciferol (Vitamin D3) 25 MCG TABLET PO (10:15)
[2024-07-22] MEDS: Isosorbide Mononitrate 60 MG TAB.ER.24H PO (10:15)
[2024-07-22] MEDS: Sucralfate 1 GM TABLET PO ×4 (10:15→21:41)
[2024-07-22] MEDS: Multivitamin TABLET 1 TAB PO (10:16)
[2024-07-22] MEDS: Atorvastatin Calcium 40 MG TABLET PO (10:16)
[2024-07-22] MEDS: Sertraline HCL 100 MG TABLET PO (10:16)
[2024-07-22] MEDS: allopurinoL 100 MG TABLET PO (10:16)
[2024-07-22] MEDS: Apixaban 5 MG TABLET PO ×2 (10:16→21:41)
[2024-07-22] MEDS: Furosemide 40 MG TABLET PO (10:16)
[2024-07-22] MEDS: Spironolactone 25 MG TABLET PO (10:17)
[2024-07-22] MEDS: hydrALAZINE HCl 50 MG TABLET PO ×3 (10:18→21:41)
--- NOTE | 2024-07-22 10:23 | PC.NURSE ---
Pt HR noted to be low 50s. Morning BP meds held d/t pt HR, provider made aware.
--- NOTE | 2024-07-22 15:37 | PC.NURSE ---
Pt alert and pleasantly confused. Son at bedside this am/early afternoon, provided updates about eating abilities at baseline- pt able to feed self, was able to feed self today here as well. Denies pain or discomfort, up to cardiac chair. Call wray within reach. Will continue to monitor.
--- NOTE | 2024-07-22 15:47 | PC.NURSE ---
Pt alert however not oriented, pleasant. Resting comfortably in bed at this time, denies any other needs at this time. Call wray within reach. Will continue to monitor.
[2024-07-23] VITALS (7 sets, daily range): BP systolic 114–137; BP diastolic 73–79; PULSE 52–60; RESP 16; TEMP 35.7–36.7; O2SAT 95–98
[2024-07-23] MEDS: oxyCODONE HCl Immed Release 15 MG TABLET PO ×4 (01:22→21:16)
--- NOTE | 2024-07-23 01:26 | PC.NURSE ---
pt is awake watching tv, pain to shoulder and knee. needs met at bedside. pt in good spirits.
[2024-07-23] MEDS: Omeprazole 20 MG CAPSULE.DR PO (06:44)
[2024-07-23] MEDS: Sucralfate 1 GM TABLET PO ×4 (08:32→21:16)
[2024-07-23] MEDS: Multivitamin TABLET 1 TAB PO (08:32)
[2024-07-23] MEDS: hydrALAZINE HCl 50 MG TABLET PO ×3 (08:32→21:16)
[2024-07-23] MEDS: Cholecalciferol (Vitamin D3) 25 MCG TABLET PO (08:32)
[2024-07-23] MEDS: carvediloL 12.5 MG TABLET PO ×2 (08:32→21:15)
[2024-07-23] MEDS: Potassium Chloride ER 20 MEQ TAB.ER.PRT PO (08:32)
[2024-07-23] MEDS: Apixaban 5 MG TABLET PO ×2 (08:32→21:16)
[2024-07-23] MEDS: allopurinoL 100 MG TABLET PO (08:32)
[2024-07-23] MEDS: Furosemide 40 MG TABLET PO (08:32)
[2024-07-23] MEDS: Atorvastatin Calcium 40 MG TABLET PO (08:33)
[2024-07-23] MEDS: amLODIPine Besylate 10 MG TABLET PO (08:33)
[2024-07-23] MEDS: Docusate Sodium 100 MG CAPSULE 200 MG PO (08:33)
[2024-07-23] MEDS: Spironolactone 25 MG TABLET PO (08:33)
[2024-07-23] MEDS: Isosorbide Mononitrate 60 MG TAB.ER.24H PO (09:38)
[2024-07-23] MEDS: Sertraline HCL 100 MG TABLET PO (09:38)
--- NOTE | 2024-07-23 12:59 | PC.NURSE ---
Patient reports sudden onset nausea, pain 7/10 at this time. Reached out to [facility], awaiting response. Patient was offered PRN Tylenol but refused, unable to get PRN Oxycodone 15mg until 14:30 today per orders. No PRN nausea medications. Unable to finish lunch due to pain/nausea.
--- NOTE | 2024-07-23 15:18 | MHC.CM.ED ---
Patient remains in ER overflow. Received telephone call from patient's daughter, Cadence Braswell. Cadence can be reached via telephone at [phone]. Cadence was contacted about being patient's guardian and conservator. Technical Applications Scientist Saleem was supposed to email her a document she needed to sign. Cadence has not received this yet. Simin Lopez CM Director aware and will reach out to Technical Applications Scientist Sike's office. Continue to monitor for d/c needs.
[2024-07-23] MEDS: Sennosides 8.6 MG TABLET 8.8 MG PO (16:50)
--- NOTE | 2024-07-23 17:13 | PC.NURSE ---
While passing the medications to the patient, patient suddenly yelled out urgently I need a bedpan quick! This RN ran/rushed to get gloves on and bedpan underneath the patient, who began stooling liquid stool onto absorbent pad. Patient began swearing and yelling at this RN & manager erp (Obeywatorey) while I was wiping away the stool from the patient's body, stating just put the goddamn fucking bedpan under me now! Continued cleaning and explained to the patient that we are cleaning stool that's already on his body, then placed him on the bedpan for remaining bowel movement. I also stated we are helping you, please speak respectfully, I understand your frustration, we got everything ready as quickly as we could . Patient then told me & Jacky to get out of his room. He used call wray to have staff assist with removing bedpan. Lights turned on per request, dinner tray arrived and given. New blankets provided, new pad placed.
--- NOTE | 2024-07-23 23:17 | PC.NURSE ---
Reached out to Rowan Collazo at 20:38 regarding discontinued Oxycodone 15mg Q6H PRN order. Provider ordered 1 time dose, and patient was medicated as ordered. Patient aware of this and thankful to this RN for advocating for him/his pain. Patient has been agreeable/pleasant the majority of this shift.
[2024-07-24] VITALS (12 sets, daily range): BP systolic 99–140; BP diastolic 54–81; PULSE 49–61; RESP 14–20; TEMP 36.4–36.8; O2SAT 94–97
--- NOTE | 2024-07-24 06:13 | MHC.EDTECH ---
0600 rounding done ,RN Claudine aware that Patient refused vitals ,resp taken ,RN also aware that Patient refused to be clean up or to be checked .stated he is too tired and don't want to be bother .
--- NOTE | 2024-07-24 06:44 | PC.NURSE ---
Pt slept throughout the night with no issues or concerns. No apparent distress. When awaken for morning vitals and meds pt declined. Monitoring is ongoing.
[2024-07-24] MEDS: oxyCODONE HCl Immed Release 15 MG TABLET PO ×3 (07:55→21:25)
[2024-07-24] MEDS: Potassium Chloride ER 20 MEQ TAB.ER.PRT PO (07:57)
[2024-07-24] MEDS: Atorvastatin Calcium 40 MG TABLET PO (07:57)
[2024-07-24] MEDS: Docusate Sodium 100 MG CAPSULE 200 MG PO (07:59)
[2024-07-24] MEDS: Cholecalciferol (Vitamin D3) 25 MCG TABLET PO (07:59)
[2024-07-24] MEDS: hydrALAZINE HCl 50 MG TABLET PO ×3 (07:59→21:11)
[2024-07-24] MEDS: Sucralfate 1 GM TABLET PO ×4 (07:59→21:11)
[2024-07-24] MEDS: Multivitamin TABLET 1 TAB PO (08:00)
[2024-07-24] MEDS: Furosemide 40 MG TABLET PO (08:00)
[2024-07-24] MEDS: allopurinoL 100 MG TABLET PO (08:00)
[2024-07-24] MEDS: Apixaban 5 MG TABLET PO ×2 (08:00→21:11)
[2024-07-24] MEDS: amLODIPine Besylate 10 MG TABLET PO ×2 (08:00→08:04)
[2024-07-24] MEDS: Spironolactone 25 MG TABLET PO (08:01)
[2024-07-24] MEDS: carvediloL 12.5 MG TABLET PO ×2 (08:04→21:11)
--- NOTE | 2024-07-24 08:09 | PC.NURSE ---
medicated as ordered, would not allow vitals until after narcotic pain med, states he is clean and not in need of assistance, quickly back to sleep
[2024-07-24] MEDS: Isosorbide Mononitrate 60 MG TAB.ER.24H PO (09:09)
[2024-07-24] MEDS: Sertraline HCL 100 MG TABLET PO (09:09)
--- NOTE | 2024-07-24 10:39 | MHC.EDTECH ---
Assisted patient with bedpan and personal hygiene.
--- NOTE | 2024-07-24 17:26 | MHC.EDTECH ---
pt ate 100% of his dinner and had 480 ml
--- NOTE | 2024-07-24 18:16 | MHC.EDTECH ---
pt voided 300ml in the urinal
--- NOTE | 2024-07-24 19:33 | PC.NURSE ---
Addendum entered by Phyllis Damon RN 07/25/24 06:31: pt slept well throughout most of the night, symmetrical rise and fall of chest and unlabored respirations noted. Pt remained calm and cooperative. Ate 100% of half turkey sandwich and a couple of apple juice/ gingerale. Pts needs met at this time, call wray within reach plan of care ongoing. Original Note: Assumed care of pt at 1900. Pt sleeping in bed in no notable distress, symmetrical rise and fall of chest and unlabored respirations noted. Pts call wray is within reach. plan of care ongoing
--- NOTE | 2024-07-24 22:50 | MHC.EDTECH ---
pt voided 200 ml in the urinal
[2024-07-25] MEDS: oxyCODONE HCl Immed Release 15 MG TABLET PO ×4 (03:29→22:59)
[2024-07-25 06:00] VITALS: BP 131/78; PULSE 50; RESP 18; TEMP 36.1; O2SAT 94
[2024-07-25] MEDS: Omeprazole 20 MG CAPSULE.DR PO (06:06)
[2024-07-25] MEDS: Sucralfate 1 GM TABLET PO ×4 (07:23→20:55)
[2024-07-25 09:11] VITALS: BP 107/71; PULSE 52; RESP 18; TEMP 36.6; O2SAT 95
[2024-07-25] MEDS: hydrALAZINE HCl 50 MG TABLET PO ×3 (09:13→20:54)
[2024-07-25] MEDS: Atorvastatin Calcium 40 MG TABLET PO (09:13)
[2024-07-25] MEDS: Apixaban 5 MG TABLET PO ×2 (09:13→20:54)
[2024-07-25] MEDS: allopurinoL 100 MG TABLET PO (09:13)
[2024-07-25] MEDS: Docusate Sodium 100 MG CAPSULE 200 MG PO (09:13)
[2024-07-25] MEDS: Spironolactone 25 MG TABLET PO (09:13)
[2024-07-25] MEDS: Furosemide 40 MG TABLET PO (09:14)
[2024-07-25] MEDS: Potassium Chloride ER 20 MEQ TAB.ER.PRT PO (09:14)
[2024-07-25] MEDS: carvediloL 12.5 MG TABLET PO (09:14)
[2024-07-25] MEDS: Multivitamin TABLET 1 TAB PO (09:14)
--- NOTE | 2024-07-25 09:15 | PC.NURSE ---
franca had me pull the amlodipine 10 mg to administer for the 0900 when this rn scanned the medication it was saying that documenting in the future, for 07/26/24 called the pharmacy and spoke with Fuad and he stated that yesterday morning the rn documented giving in on 07/24 and 07/25, Fuad is going to put in a one time dose for today
[2024-07-25] MEDS: Isosorbide Mononitrate 60 MG TAB.ER.24H PO (10:31)
[2024-07-25] MEDS: Sertraline HCL 100 MG TABLET PO (10:31)
[2024-07-25] MEDS: Cholecalciferol (Vitamin D3) 25 MCG TABLET PO (10:32)
[2024-07-25] MEDS: amLODIPine Besylate 10 MG TABLET PO (11:28)
[2024-07-25 15:15] VITALS: BP 88/67; PULSE 50; RESP 18; TEMP 36.6; O2SAT 97
--- NOTE | 2024-07-25 19:51 | PC.NURSE ---
Assumed care of pt at 1900. PT resting quietly, watching tv- calm and cooperative in no acute distress. PT endorsing 6/10 pain inL shoulder- this pain in chronic in nature. Skin intact pwd, neuros intact, respirations even and unlabored. Safety precautions in place. Plan of care ongoing
--- NOTE | 2024-07-25 20:40 | MHC.EDTECH ---
pt was 1 assist with the bed alex had a small brown pasty bowel movement and voided 200ml in the urinal
[2024-07-25 20:44] VITALS: BP 141/64; PULSE 57; RESP 16; TEMP 36.1; O2SAT 97
[2024-07-25 20:53] VITALS: BP 141/64; PULSE 57
[2024-07-25 20:54] VITALS: BP 141/64
--- NOTE | 2024-07-25 20:56 | PC.NURSE ---
pt bradycardic, carvedilol held as per protocol. PT medicated as per mar- took meds whole with water tolerated well
--- NOTE | 2024-07-25 22:35 | MHC.EDTECH ---
pt voided in his urinal 200ml
[2024-07-26] MEDS: Melatonin 3 MG TABLET PO (01:03)
--- NOTE | 2024-07-26 01:03 | PC.NURSE ---
pt noting that he is unable to sleep reporting he worked himself up thinking about his home and that his nephew went to [facility]. he does not have any other family
[2024-07-26 05:28] VITALS: BP 127/84; PULSE 52; RESP 16; TEMP 36.1; O2SAT 96
[2024-07-26] MEDS: Omeprazole 20 MG CAPSULE.DR PO (05:52)
[2024-07-26] MEDS: oxyCODONE HCl Immed Release 15 MG TABLET PO ×3 (05:54→18:24)
--- NOTE | 2024-07-26 07:00 | MHC.EDTECH ---
Patient is sleeping now.after they gave him Melatonin for sleep.
[2024-07-26] MEDS: amLODIPine Besylate 10 MG TABLET PO (09:59)
[2024-07-26] MEDS: Atorvastatin Calcium 40 MG TABLET PO (09:59)
[2024-07-26] MEDS: Docusate Sodium 100 MG CAPSULE 200 MG PO (09:59)
[2024-07-26] MEDS: Furosemide 40 MG TABLET PO (09:59)
[2024-07-26] MEDS: hydrALAZINE HCl 50 MG TABLET PO ×3 (09:59→21:07)
[2024-07-26] MEDS: allopurinoL 100 MG TABLET PO (09:59)
[2024-07-26] MEDS: Cholecalciferol (Vitamin D3) 25 MCG TABLET PO (09:59)
[2024-07-26] MEDS: carvediloL 12.5 MG TABLET PO ×2 (09:59→21:07)
[2024-07-26] MEDS: Sertraline HCL 100 MG TABLET PO (09:59)
[2024-07-26] MEDS: Apixaban 5 MG TABLET PO ×2 (09:59→21:07)
[2024-07-26] MEDS: Isosorbide Mononitrate 60 MG TAB.ER.24H PO (09:59)
[2024-07-26] MEDS: Multivitamin TABLET 1 TAB PO (10:00)
[2024-07-26] MEDS: Potassium Chloride ER 20 MEQ TAB.ER.PRT PO (10:00)
[2024-07-26] MEDS: Spironolactone 25 MG TABLET PO (10:00)
[2024-07-26] MEDS: Sucralfate 1 GM TABLET PO ×3 (11:54→21:07)
--- NOTE | 2024-07-26 14:42 | MHC.CM.ED ---
Patient remains in ER overflow. Court for guardianship/conservator scheduled for 08/09/24 at 3pm. Notice given to patient. Return of service sent to Aníbal. Continue to monitor for d/c needs.
[2024-07-26 16:03] VITALS: BP 100/55; PULSE 56; RESP 13
[2024-07-26 20:12] VITALS: BP 144/60; PULSE 65; RESP 16; TEMP 36.3; O2SAT 97
--- NOTE | 2024-07-26 20:15 | MHC.EDTECH ---
This pct assumed care of Patient at 1900 ,vitals taken ,Patient was drench in urine ,bed bath given ,bedding and gown change ,all safety measure in Place .
[2024-07-27] MEDS: oxyCODONE HCl Immed Release 15 MG TABLET PO ×3 (01:18→15:47)
[2024-07-27] MEDS: Omeprazole 20 MG CAPSULE.DR PO (06:13)
[2024-07-27 06:21] VITALS: BP 113/63; PULSE 55; RESP 16; TEMP 36.8; O2SAT 95
[2024-07-27 08:42] VITALS: BP 113/70; PULSE 51; RESP 20; TEMP 36.2; O2SAT 97
[2024-07-27] MEDS: Sertraline HCL 100 MG TABLET PO (08:45)
[2024-07-27] MEDS: amLODIPine Besylate 10 MG TABLET PO (08:45)
[2024-07-27] MEDS: Cholecalciferol (Vitamin D3) 25 MCG TABLET PO (08:45)
[2024-07-27] MEDS: Isosorbide Mononitrate 60 MG TAB.ER.24H PO (08:45)
[2024-07-27] MEDS: Spironolactone 25 MG TABLET PO (08:45)
[2024-07-27] MEDS: Docusate Sodium 100 MG CAPSULE 200 MG PO (08:45)
[2024-07-27] MEDS: carvediloL 12.5 MG TABLET PO (08:45)
[2024-07-27] MEDS: hydrALAZINE HCl 50 MG TABLET PO ×2 (08:46→15:47)
[2024-07-27] MEDS: Sucralfate 1 GM TABLET PO ×3 (08:46→16:52)
[2024-07-27] MEDS: allopurinoL 100 MG TABLET PO (08:46)
[2024-07-27] MEDS: Furosemide 40 MG TABLET PO (08:46)
[2024-07-27] MEDS: Multivitamin TABLET 1 TAB PO (08:46)
[2024-07-27] MEDS: Potassium Chloride ER 20 MEQ TAB.ER.PRT PO (08:46)
[2024-07-27] MEDS: Apixaban 5 MG TABLET PO (08:46)
[2024-07-27] MEDS: Atorvastatin Calcium 40 MG TABLET PO (08:46)
--- NOTE | 2024-07-27 09:08 | PC.NURSE ---
assumed care of patient at 0700, patient is awake and alert, resp even and unlabored. patient VSS, medicated per MAR. patient sat up and ate breakfast, uses urinal independently.
[2024-07-27 12:18] VITALS: BP 120/71; PULSE 52; RESP 12; TEMP 36; O2SAT 94
--- NOTE | 2024-07-27 12:36 | PC.NURSE ---
[facility] (hospitalist) to bedside speaking with patient. Plan for S3 social admission.
--- NOTE | 2024-07-27 15:21 | PC.NURSE ---
This RN entered the room to medicate the patient with scheduled medication & PRN Oxycodone 15mg. Patient refusing at this time, stating Give me my wallet! I have to send my grandson money, and I've been asking for my wallet since 9am! I don't understand what is so difficult about that?! I explained that he did not mention requesting a wallet to this RN, but that I will look into this and arrange for his wallet to be brought to Overflow from [facility] (per patient belongings documentation). Spoke with Liz Chou (CM) and Jimbo Alegre (transmitter engineer in charge) who reports that they will bring the wallet to Overflow once RN to RN report is completed. [facility] aware of patient refusing all care until he receives his wallet. Plan for social admission to S3 (med/surg). Awaiting bed assignment.
--- NOTE | 2024-07-27 15:35 | PC.NURSE ---
Patient used call wray stating I need my wallet now or all hell will break loose. I need it before 3:45pm . States that he needs to send money to his grandson in [place] for food, cigarettes, & stuff. Spoke with Jimbo Alegre (charge master specialist) about this statement and that Liz Chou (IRENE) okayed this patient having his wallet. senior analyst to bring wallet to Overflow 4. Continue to await bed assignment. Care ongoing by this RN.
[2024-07-27 15:47] VITALS: BP 120/71
--- NOTE | 2024-07-27 15:47 | PC.NURSE ---
Patient received his wallet (as requested). Attempted to send money to his grandson in [place], but due to timing, he was unable to send his grandson money. Patient is cooperative and verbalizing frustration with timing. Belongings are at bedside. Belongings list updated in [employer]. CM, social economist, & hospitalist aware of location of belongings. Continue to await bed assignment. Care ongoing by this RN.
--- NOTE | 2024-07-27 16:25 | PC.NURSE ---
Linens changed, urine incontinence.
== END 2024-07-29 04:01 | disposition other institution (70) ==
PROVIDERS: Physician Assistant Medical; Emergency Provider Emergency Medicine
DX: R53.1 Weakness (principal); R45.851 Suicidal ideations; Z04.1 Encounter for examination and observation following transport accident; M25.512 Pain in left shoulder; M25.511 Pain in right shoulder; M25.562 Pain in left knee; M25.561 Pain in right knee; G89.4 Chronic pain syndrome; I12.9 Hypertensive chronic kidney disease with stage 1 through stage 4 chronic kidney disease, or unspecified chronic kidney disease; N18.32 Chronic kidney disease, stage 3b; E78.5 Hyperlipidemia, unspecified; I48.91 Unspecified atrial fibrillation; F03.90 Unspecified dementia, unspecified severity, without behavioral disturbance, psychotic disturbance, mood disturbance, and anxiety; Z86.73 Personal history of transient ischemic attack (TIA), and cerebral infarction without residual deficits; Z79.01 Long term (current) use of anticoagulants; Z79.899 Other long term (current) drug therapy; Z79.02 Long term (current) use of antithrombotics/antiplatelets; Z79.891 Long term (current) use of opiate analgesic; Z03.818 Encounter for observation for suspected exposure to other biological agents ruled out
CPT/HCPCS: 0241U; 36415; 70450; 72125; 73030; 73562; 80053; 83735; 85025; 85610; 85730; 93005; 96365; 96375; 97162; 97166; 99285; J0131; J2270; J2405; S9485

== ENCOUNTER → 2024-07-12 03:03 | Outpatient (BNV) | payer OTHER, SELFPAY | PROVIDERS: Emergency Provider Emergency Medicine; Visit Provider Social Worker | DX: F03.90 Unspecified dementia, unspecified severity, without behavioral disturbance, psychotic disturbance, mood disturbance, and anxiety (principal) | CPT/HCPCS: 99285 ==

== ENCOUNTER → 2024-07-12 06:55 | Outpatient (BNV) | payer MEDICARE, SELFPAY | PROVIDERS: Emergency Provider Emergency Medicine; Visit Provider Radiology Vascular & Interventional Radiology | DX: M54.2 Cervicalgia (principal); R51.9 Headache, unspecified; M25.562 Pain in left knee; M25.561 Pain in right knee; M17.0 Bilateral primary osteoarthritis of knee; M25.511 Pain in right shoulder; M25.512 Pain in left shoulder | CPT/HCPCS: 70450; 72125; 73030; 73562 ==

== ENCOUNTER → 2024-07-14 11:28 | Outpatient (BNV) | payer MEDICARE, SELFPAY | PROVIDERS: Emergency Provider Emergency Medicine; Visit Provider Internal Medicine Cardiovascular Disease | DX: R00.1 Bradycardia, unspecified (principal); I48.91 Unspecified atrial fibrillation; R94.31 Abnormal electrocardiogram [ECG] [EKG] | CPT/HCPCS: 93010 ==

== ENCOUNTER 2024-07-27 13:14 | Inpatient (IN) | payer MEDICARE, SELFPAY ==
--- NOTE | ~2024-07-27 | XR_ITS ---
CLINICAL HISTORY: pain Three views of the left shoulder. COMPARISON: XR left shoulder dated 07/12/24 at 07:32 EST FINDINGS: Status post sternotomy. Visualized portions of the proximal left humerus, scapula and the clavicle appear intact. Advanced degenerative changes of the glenohumeral joint with complete loss of joint space, [id number] apposition and remodeling of the glenoid and humeral head with prominent osteophytes. There is decreased subacromial joint space. Moderate to advanced hypertrophy of the acromioclavicular joint. Visualized portions of the left lung are clear. IMPRESSION: 1. No radiographic evidence of acute injury to the left shoulder. 2. Advanced degenerative changes of the glenohumeral joint with [id number] apposition and remodeling of the humeral head and glenoid, similar to prior imaging. 3. Decreased subacromial joint space can be associated with chronic rotator cuff injury. 4. Chmrdydj-[id number] acromioclavicular joint degenerative changes, similar to prior imaging. This document has been electronically signed by: Alfred Lawrence MD on 09/17/2024 18:32:10
--- NOTE | ~2024-07-27 | CT_ITS ---
CLINICAL HISTORY: pain CT shoulder left without contrast Comparison: CR - XR SHOULDER LT MIN 2V - 09/17/24 17:41 EDT Findings: Severe degenerative disease of the left glenohumeral and acromioclavicular joints with moderate surrounding soft tissue swelling. Calcification/ossification of the supraspinatus tendon is seen. No significant joint effusion. Visualized lung parenchyma is grossly unremarkable. IMPRESSION: No acute findings. Severe degenerative disease of the glenohumeral and acromioclavicular joints with moderate surrounding soft tissue swelling. Calcification/ossification of the supraspinatus tendon. No significant joint effusion. This document has been electronically signed by: Farrukh Padilla MD on 09/18/2024 19:20:07
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
[2024-07-27 21:11] VITALS: BMI 24.5
--- NOTE | 2024-07-27 21:38 | PC.NURSE ---
Assumed care if this patient at 19:00. Pt seen in ED overflow. Admitted to S3 med-surg for placement/social admit. Pt is A&Ox2 to self and place. Calm and cooperative. Denies pain this evening. Denies chest pain, sob, n/v. +PP/cms. Breathing is even and unlabored without distress. Voiding odorless cyu in urinal. Rings call wray appropriately. Report called to S3 RN. Patient transported to s3 in stable condition with all belongings at 20:45.
[2024-07-27] MEDS: oxyCODONE HCl Immed Release 5 MG TABLET PO (22:29)
[2024-07-28] MEDS: Melatonin 3 MG TABLET 6 MG PO (00:15)
[2024-07-28] MEDS: Apixaban 5 MG TABLET PO ×3 (00:15→20:14)
[2024-07-28 03:46] VITALS: BP 106/59; PULSE 53; RESP 18; TEMP 36.2; O2SAT 95
[2024-07-28] MEDS: Omeprazole 20 MG CAPSULE.DR PO (06:18)
--- NOTE | 2024-07-28 07:19 | PHA.MEDREC ---
Pharmacy Consult ? Medication Reconciliation Pharmacy has completed the medication reconciliation by Dyan MCPHERSON utilizing med list.
[2024-07-28 07:51] VITALS: BP 125/58; PULSE 52; RESP 18; TEMP 36.3; O2SAT 92
[2024-07-28 08:14] LABS: Hemoglobin 12.6 g/dl (14.0-18.0); Mean Corpuscular HGB Conc 32.3 g/dl (31.0-36.0); Mean Corpuscular Hemoglobin 26.8 pg (27.0-33.0); Mean Platelet Volume 10.1 fL (9.4-12.4); Platelet Count 150 X10*3/uL (160-400); Red Cell Distribution Width 16.5 % (11.0-16.0); White Blood Count 5.9 X10*3/uL (4.8-10.8)
[2024-07-28] MEDS: Isosorbide Mononitrate 60 MG TAB.ER.24H PO (08:22)
[2024-07-28] MEDS: Multivitamin TABLET 1 TAB PO (08:22)
[2024-07-28] MEDS: carvediloL 12.5 MG TABLET PO ×2 (08:22→20:14)
[2024-07-28] MEDS: Atorvastatin Calcium 40 MG TABLET PO (08:22)
[2024-07-28] MEDS: Furosemide 40 MG TABLET PO (08:22)
[2024-07-28] MEDS: Sucralfate 1 GM TABLET PO ×4 (08:22→20:14)
[2024-07-28] MEDS: amLODIPine Besylate 10 MG TABLET PO (08:23)
[2024-07-28] MEDS: Spironolactone 25 MG TABLET PO (08:23)
[2024-07-28] MEDS: hydrALAZINE HCl 50 MG TABLET PO (08:23)
[2024-07-28] MEDS: Sertraline HCL 100 MG TABLET PO (08:23)
[2024-07-28] MEDS: oxyCODONE HCl Immed Release 5 MG TABLET PO ×3 (08:23→21:28)
[2024-07-28] MEDS: Cholecalciferol (Vitamin D3) 25 MCG TABLET PO (08:24)
[2024-07-28] MEDS: Potassium Chloride ER 10 MEQ TABLET.ER 20 MEQ PO (08:24)
[2024-07-28] MEDS: allopurinoL 100 MG TABLET PO (08:26)
[2024-07-28 08:46] LABS: Anion Gap 15 (12-20); Blood Urea Nitrogen 44 mg/dL (9-16); Calcium 9.3 mg/dL (8.4-10.2); Carbon Dioxide 25 mmol/L (22-29); Chloride 104 mmol/L (96-108); Creatinine Clr Calc Pharmacy 35.7; Estimated Glomerular Filt Rate 31; Glucose Random 93 mg/dL (60-115); Potassium 4.7 mmol/L (3.3-5.1); Sodium 139 mmol/L (135-145)
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
[2024-07-28] MEDS: Lactated Ringers 1,000 ML 125 ML IVCONT ×2 (09:33→16:55)
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
[2024-07-28 15:29] VITALS: BP 122/76; PULSE 66; RESP 16; TEMP 36.8; O2SAT 95
[2024-07-28] MEDS: oxyCODONE HCl Immed Release 5 MG TABLET 10 MG PO ×2 (15:30→21:29)
[2024-07-28 19:25] VITALS: BP 129/81; PULSE 64; RESP 17; TEMP 36.7; O2SAT 96
[2024-07-28] MEDS: hydrALAZINE HCl 25 MG TABLET PO (20:14)
[2024-07-29] MEDS: Lactated Ringers 1,000 ML 125 ML IVCONT ×4 (00:47→22:36)
[2024-07-29 02:14] VITALS: BP 130/60; PULSE 52; RESP 17; TEMP 36.5; O2SAT 94
[2024-07-29] MEDS: oxyCODONE HCl Immed Release 5 MG TABLET 10 MG PO ×5 (03:28→22:35)
[2024-07-29] MEDS: Omeprazole 20 MG CAPSULE.DR PO (05:41)
[2024-07-29 07:32] LABS: Hematocrit 37.1 % (42.0-52.0); Hemoglobin 12.2 g/dl (14.0-18.0); Mean Corpuscular HGB Conc 32.9 g/dl (31.0-36.0); Mean Corpuscular Hemoglobin 26.7 pg (27.0-33.0); Mean Corpuscular Volume 81.2 fL (80.0-98.0); Mean Platelet Volume 9.7 fL (9.4-12.4); Platelet Count 137 X10*3/uL (160-400); Red Blood Count 4.57 X10*6/uL (4.60-5.80); Red Cell Distribution Width 16.6 % (11.0-16.0); White Blood Count 5.7 X10*3/uL (4.8-10.8)
[2024-07-29] MEDS: Sucralfate 1 GM TABLET PO ×4 (07:39→19:33)
[2024-07-29 07:51] LABS: Anion Gap 14 (12-20); Blood Urea Nitrogen 48 mg/dL (9-16); Calcium 8.9 mg/dL (8.4-10.2); Carbon Dioxide 25 mmol/L (22-29); Chloride 104 mmol/L (96-108); Creatinine Clr Calc Pharmacy 37.9; Estimated Glomerular Filt Rate 33; Glucose Random 87 mg/dL (60-115); Potassium 4.6 mmol/L (3.3-5.1); Sodium 138 mmol/L (135-145)
[2024-07-29 07:54] VITALS: BP 139/66; PULSE 50; RESP 16; TEMP 36.9; O2SAT 94
[2024-07-29 08:27] VITALS: PULSE 57; O2SAT 94
[2024-07-29] MEDS: Multivitamin TABLET 1 TAB PO (08:35)
[2024-07-29] MEDS: hydrALAZINE HCl 25 MG TABLET PO ×2 (08:35→19:33)
[2024-07-29] MEDS: Apixaban 5 MG TABLET PO ×2 (08:35→19:33)
[2024-07-29] MEDS: Isosorbide Mononitrate 60 MG TAB.ER.24H PO (08:35)
[2024-07-29] MEDS: Cholecalciferol (Vitamin D3) 25 MCG TABLET PO (08:35)
[2024-07-29] MEDS: Atorvastatin Calcium 40 MG TABLET PO (08:35)
[2024-07-29] MEDS: carvediloL 12.5 MG TABLET PO ×2 (08:36→19:32)
[2024-07-29] MEDS: amLODIPine Besylate 10 MG TABLET PO (08:36)
[2024-07-29] MEDS: Sertraline HCL 100 MG TABLET PO (08:36)
[2024-07-29] MEDS: allopurinoL 100 MG TABLET PO (08:36)
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
[2024-07-29] MEDS: oxyCODONE HCl Immed Release 5 MG TABLET PO ×3 (09:46→22:34)
[2024-07-29 15:37] VITALS: BP 136/73; PULSE 59; RESP 16; TEMP 37
[2024-07-29 19:28] VITALS: BP 116/59; PULSE 52; RESP 18; TEMP 37; O2SAT 92
[2024-07-30 04:00] VITALS: BP 150/78; PULSE 62; RESP 16; TEMP 36.8; O2SAT 94
[2024-07-30] MEDS: Lactated Ringers 1,000 ML 125 ML IVCONT (04:40)
[2024-07-30] MEDS: Omeprazole 20 MG CAPSULE.DR PO (04:41)
[2024-07-30] MEDS: oxyCODONE HCl Immed Release 5 MG TABLET PO ×3 (04:41→19:45)
[2024-07-30] MEDS: oxyCODONE HCl Immed Release 5 MG TABLET 10 MG PO ×4 (04:41→19:45)
--- NOTE | 2024-07-30 04:52 | PC.NURSE ---
pt c/o pain 11/22 for oxy 15 mg. note; pt on oxy 15 mg at home, pt has prn oxy 10 mg and oxy [address] singh notified. ok to give both oxy to make 15 mg. will cont to monitor
[2024-07-30 06:21] LABS: Anion Gap 14 (12-20); Blood Urea Nitrogen 44 mg/dL (9-16); Calcium 8.8 mg/dL (8.4-10.2); Carbon Dioxide 24 mmol/L (22-29); Chloride 105 mmol/L (96-108); Creatinine Clr Calc Pharmacy 38.8; Estimated Glomerular Filt Rate 34; Glucose Random 82 mg/dL (60-115); Potassium 4.7 mmol/L (3.3-5.1); Sodium 138 mmol/L (135-145)
[2024-07-30 07:37] VITALS: BP 136/61; PULSE 61; RESP 18; TEMP 36.4; O2SAT 93
[2024-07-30] MEDS: Apixaban 5 MG TABLET PO ×2 (09:20→19:47)
[2024-07-30] MEDS: carvediloL 12.5 MG TABLET PO ×2 (09:20→19:47)
[2024-07-30] MEDS: Atorvastatin Calcium 40 MG TABLET PO (09:20)
[2024-07-30] MEDS: Isosorbide Mononitrate 60 MG TAB.ER.24H PO (09:20)
[2024-07-30] MEDS: amLODIPine Besylate 10 MG TABLET PO (09:20)
[2024-07-30] MEDS: hydrALAZINE HCl 25 MG TABLET PO ×2 (09:21→19:47)
[2024-07-30] MEDS: allopurinoL 100 MG TABLET PO (09:21)
[2024-07-30] MEDS: Sucralfate 1 GM TABLET PO ×4 (09:21→19:47)
[2024-07-30] MEDS: Multivitamin TABLET 1 TAB PO (09:21)
[2024-07-30] MEDS: Sertraline HCL 100 MG TABLET PO (09:21)
[2024-07-30] MEDS: Cholecalciferol (Vitamin D3) 25 MCG TABLET PO (09:21)
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
--- NOTE | 2024-07-30 12:12 | MHC.CM.PN ---
PT AWAITING GUARDIANSHIP, HEARING SCHEDULED FOR 08/09/24, AND LTC PLACEMENT DAUGHTER, NELLIE, IS PROPOSED GUARDIAN
[2024-07-30 15:57] VITALS: BP 116/59; PULSE 55; RESP 18; TEMP 36.4; O2SAT 93
[2024-07-30] MEDS: 0.9 % Sodium Chloride Flush 3 ML SYRINGE IVFLUSH ×2 (17:07→19:51)
[2024-07-30 19:20] VITALS: BP 129/63; PULSE 55; RESP 18; TEMP 36.7; O2SAT 95
[2024-07-30 19:47] VITALS: PULSE 64
[2024-07-30] MEDS: Gabapentin 100 MG CAPSULE PO (19:47)
--- NOTE | 2024-07-30 19:52 | PC.NURSE ---
pt c/o 12/23 pain and asked for 15mg of oxy, states he takes it @ home. pt has 2 separate orders for oxy 10mg Q4H & 5mg Q6H PRN. Dr. Shannon notified of patients requests for the full 15mg at once and approved to administer it.
[2024-07-31] MEDS: oxyCODONE HCl Immed Release 5 MG TABLET 10 MG PO ×4 (03:03→20:11)
[2024-07-31 04:00] VITALS: BP 135/68; PULSE 53; RESP 18; TEMP 36.2; O2SAT 94
[2024-07-31] MEDS: Omeprazole 20 MG CAPSULE.DR PO (05:44)
[2024-07-31 06:47] LABS: Anion Gap 11 (12-20); Blood Urea Nitrogen 38 mg/dL (9-16); Calcium 8.8 mg/dL (8.4-10.2); Carbon Dioxide 26 mmol/L (22-29); Chloride 106 mmol/L (96-108); Creatinine Clr Calc Pharmacy 39.7; Estimated Glomerular Filt Rate 35; Glucose Random 97 mg/dL (60-115); Potassium 4.3 mmol/L (3.3-5.1); Sodium 139 mmol/L (135-145)
[2024-07-31 08:05] VITALS: BP 132/72; PULSE 53; RESP 12; TEMP 36.4; O2SAT 93
[2024-07-31] MEDS: Sucralfate 1 GM TABLET PO ×4 (08:05→20:02)
[2024-07-31] MEDS: Cholecalciferol (Vitamin D3) 25 MCG TABLET PO (08:05)
[2024-07-31] MEDS: Isosorbide Mononitrate 60 MG TAB.ER.24H PO (08:05)
[2024-07-31] MEDS: Gabapentin 100 MG CAPSULE PO ×2 (08:05→20:02)
[2024-07-31] MEDS: allopurinoL 100 MG TABLET PO (08:05)
[2024-07-31] MEDS: amLODIPine Besylate 10 MG TABLET PO (08:06)
[2024-07-31] MEDS: hydrALAZINE HCl 25 MG TABLET PO ×2 (08:06→20:02)
[2024-07-31] MEDS: Multivitamin TABLET 1 TAB PO (08:06)
[2024-07-31] MEDS: Sertraline HCL 100 MG TABLET PO (08:06)
[2024-07-31] MEDS: Apixaban 5 MG TABLET PO ×2 (08:06→20:02)
[2024-07-31] MEDS: Atorvastatin Calcium 40 MG TABLET PO (08:06)
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
[2024-07-31] MEDS: oxyCODONE HCl Immed Release 5 MG TABLET PO ×3 (10:09→20:10)
[2024-07-31 15:56] VITALS: BP 136/73; PULSE 64; RESP 18; TEMP 36.9; O2SAT 93
[2024-07-31 19:20] VITALS: BP 143/73; PULSE 61; RESP 18; TEMP 36.6; O2SAT 92
[2024-07-31] MEDS: carvediloL 12.5 MG TABLET PO (20:02)
[2024-07-31 21:10] VITALS: RESP 18
[2024-07-31 21:11] VITALS: RESP 18
[2024-08-01] MEDS: oxyCODONE HCl Immed Release 5 MG TABLET 10 MG PO ×6 (00:14→23:50)
[2024-08-01] MEDS: oxyCODONE HCl Immed Release 5 MG TABLET PO ×6 (00:15→23:52)
[2024-08-01 01:15] VITALS: RESP 18
[2024-08-01 03:44] VITALS: BP 118/68; PULSE 57; RESP 16; TEMP 36; O2SAT 97
[2024-08-01] MEDS: Omeprazole 20 MG CAPSULE.DR PO (05:48)
[2024-08-01 06:28] LABS: Anion Gap 11 (12-20); Blood Urea Nitrogen 33 mg/dL (9-16); Calcium 8.8 mg/dL (8.4-10.2); Carbon Dioxide 26 mmol/L (22-29); Chloride 106 mmol/L (96-108); Creatinine Clr Calc Pharmacy 39.7; Estimated Glomerular Filt Rate 35; Glucose Random 109 mg/dL (60-115); Potassium 4.4 mmol/L (3.3-5.1); Sodium 139 mmol/L (135-145)
[2024-08-01 07:01] VITALS: BP 129/71; PULSE 55; RESP 16; TEMP 36.6; O2SAT 96
[2024-08-01] MEDS: amLODIPine Besylate 10 MG TABLET PO (08:15)
[2024-08-01] MEDS: Gabapentin 100 MG CAPSULE PO ×2 (08:15→20:01)
[2024-08-01] MEDS: Multivitamin TABLET 1 TAB PO (08:15)
[2024-08-01] MEDS: Sucralfate 1 GM TABLET PO ×4 (08:15→20:01)
[2024-08-01] MEDS: Apixaban 5 MG TABLET PO ×2 (08:15→20:02)
[2024-08-01] MEDS: hydrALAZINE HCl 25 MG TABLET PO ×2 (08:15→20:01)
[2024-08-01] MEDS: Sertraline HCL 100 MG TABLET PO (08:15)
[2024-08-01] MEDS: Cholecalciferol (Vitamin D3) 25 MCG TABLET PO (08:15)
[2024-08-01] MEDS: Isosorbide Mononitrate 60 MG TAB.ER.24H PO (08:15)
[2024-08-01] MEDS: allopurinoL 100 MG TABLET PO (08:15)
[2024-08-01] MEDS: carvediloL 12.5 MG TABLET PO ×2 (08:15→20:05)
[2024-08-01] MEDS: Atorvastatin Calcium 40 MG TABLET PO (08:15)
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
--- NOTE | 2024-08-01 13:22 | MHC.CM.PN ---
Patient continues to await guardianship hearing. FS has reached out to daughter to begin [employer] application. CM will continue to follow.
[2024-08-01 15:28] VITALS: BP 131/62; PULSE 98; RESP 18; TEMP 36.7; O2SAT 94
[2024-08-01 19:23] VITALS: BP 129/81; PULSE 84; RESP 20; TEMP 37; O2SAT 95
[2024-08-01] MEDS: 0.9 % Sodium Chloride Flush 3 ML SYRINGE IVFLUSH (23:50)
[2024-08-02 00:50] VITALS: RESP 18
[2024-08-02 03:48] VITALS: BP 118/65; PULSE 56; RESP 18; TEMP 36; O2SAT 96
[2024-08-02] MEDS: Omeprazole 20 MG CAPSULE.DR PO (06:07)
[2024-08-02] MEDS: oxyCODONE HCl Immed Release 5 MG TABLET PO ×4 (06:07→20:18)
[2024-08-02] MEDS: oxyCODONE HCl Immed Release 5 MG TABLET 10 MG PO ×4 (06:08→20:18)
[2024-08-02 06:46] VITALS: BP 124/58; PULSE 58; RESP 17; TEMP 36.6; O2SAT 93
[2024-08-02] MEDS: amLODIPine Besylate 10 MG TABLET PO (08:17)
[2024-08-02] MEDS: allopurinoL 100 MG TABLET PO (08:18)
[2024-08-02] MEDS: Isosorbide Mononitrate 60 MG TAB.ER.24H PO (08:18)
[2024-08-02] MEDS: carvediloL 12.5 MG TABLET PO ×2 (08:18→20:19)
[2024-08-02] MEDS: Sertraline HCL 100 MG TABLET PO (08:18)
[2024-08-02] MEDS: hydrALAZINE HCl 25 MG TABLET PO ×2 (08:18→20:18)
[2024-08-02] MEDS: Apixaban 5 MG TABLET PO ×2 (08:18→20:19)
[2024-08-02] MEDS: Sucralfate 1 GM TABLET PO ×4 (08:18→20:18)
[2024-08-02] MEDS: Atorvastatin Calcium 40 MG TABLET PO (08:18)
[2024-08-02] MEDS: Multivitamin TABLET 1 TAB PO (08:18)
[2024-08-02] MEDS: Cholecalciferol (Vitamin D3) 25 MCG TABLET PO (08:18)
[2024-08-02] MEDS: Gabapentin 100 MG CAPSULE PO ×2 (08:18→20:18)
[2024-08-02] MEDS: 0.9 % Sodium Chloride Flush 3 ML SYRINGE IVFLUSH ×2 (08:19→20:20)
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
[2024-08-02 15:31] VITALS: BP 119/62; PULSE 62; RESP 18; TEMP 36.6; O2SAT 95
[2024-08-02 19:51] VITALS: BP 123/66; PULSE 70; RESP 18; TEMP 36.8; O2SAT 95
[2024-08-03 03:22] VITALS: BP 117/72; PULSE 54; RESP 18; TEMP 36.8; O2SAT 95
[2024-08-03 06:43] VITALS: BP 122/61; PULSE 62; RESP 16; TEMP 36.6; O2SAT 94
[2024-08-03] MEDS: oxyCODONE HCl Immed Release 5 MG TABLET 10 MG PO ×4 (08:13→22:42)
[2024-08-03] MEDS: Isosorbide Mononitrate 60 MG TAB.ER.24H PO (08:14)
[2024-08-03] MEDS: Multivitamin TABLET 1 TAB PO (08:14)
[2024-08-03] MEDS: Cholecalciferol (Vitamin D3) 25 MCG TABLET PO (08:14)
[2024-08-03] MEDS: Gabapentin 100 MG CAPSULE PO ×2 (08:14→21:58)
[2024-08-03] MEDS: Sucralfate 1 GM TABLET PO ×4 (08:14→21:58)
[2024-08-03] MEDS: Atorvastatin Calcium 40 MG TABLET PO (08:14)
[2024-08-03] MEDS: oxyCODONE HCl Immed Release 5 MG TABLET PO ×4 (08:14→22:42)
[2024-08-03] MEDS: amLODIPine Besylate 10 MG TABLET PO (08:14)
[2024-08-03] MEDS: hydrALAZINE HCl 25 MG TABLET PO ×2 (08:14→21:58)
[2024-08-03] MEDS: Sertraline HCL 100 MG TABLET PO (08:14)
[2024-08-03] MEDS: Apixaban 5 MG TABLET PO ×2 (08:15→21:58)
[2024-08-03] MEDS: carvediloL 12.5 MG TABLET PO (08:15)
[2024-08-03] MEDS: allopurinoL 100 MG TABLET PO (08:15)
[2024-08-03] MEDS: 0.9 % Sodium Chloride Flush 3 ML SYRINGE IVFLUSH ×3 (08:17→21:59)
--- NOTE | 2024-08-03 10:36 | MHC.CM.PN ---
Patient continues to await guardianship and placement. CM will continue to follow.
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
[2024-08-03 15:23] VITALS: BP 102/61; PULSE 58; RESP 18; TEMP 36.6; O2SAT 93
[2024-08-03 19:34] VITALS: BP 124/68; PULSE 61; RESP 18; TEMP 36.4; O2SAT 93
[2024-08-03 21:58] VITALS: BP 124/68
[2024-08-03 21:59] VITALS: BP 124/68; PULSE 61
[2024-08-04] MEDS: oxyCODONE HCl Immed Release 5 MG TABLET 10 MG PO ×5 (03:07→22:44)
[2024-08-04] MEDS: oxyCODONE HCl Immed Release 5 MG TABLET PO ×5 (03:07→22:44)
[2024-08-04 03:32] VITALS: BP 128/77; PULSE 58; RESP 18; TEMP 36.6; O2SAT 97
[2024-08-04] MEDS: Omeprazole 20 MG CAPSULE.DR PO (06:12)
[2024-08-04] MEDS: Sucralfate 1 GM TABLET PO ×4 (07:22→20:41)
[2024-08-04 07:47] VITALS: BP 134/78; PULSE 52; RESP 18; TEMP 36.2; O2SAT 100
[2024-08-04 08:44] VITALS: PULSE 52
[2024-08-04] MEDS: Multivitamin TABLET 1 TAB PO (09:13)
[2024-08-04] MEDS: Sertraline HCL 100 MG TABLET PO (09:13)
[2024-08-04] MEDS: Isosorbide Mononitrate 60 MG TAB.ER.24H PO (09:13)
[2024-08-04] MEDS: Gabapentin 100 MG CAPSULE PO ×2 (09:14→20:41)
[2024-08-04] MEDS: 0.9 % Sodium Chloride Flush 3 ML SYRINGE IVFLUSH ×3 (09:14→20:41)
[2024-08-04] MEDS: hydrALAZINE HCl 25 MG TABLET PO ×2 (09:14→20:40)
[2024-08-04] MEDS: Cholecalciferol (Vitamin D3) 25 MCG TABLET PO (09:14)
[2024-08-04] MEDS: Atorvastatin Calcium 40 MG TABLET PO (09:14)
[2024-08-04] MEDS: Apixaban 5 MG TABLET PO ×2 (09:14→20:41)
[2024-08-04] MEDS: amLODIPine Besylate 10 MG TABLET PO (09:14)
[2024-08-04] MEDS: allopurinoL 100 MG TABLET PO (09:14)
[2024-08-04] MEDS: Lidocaine 4 % Patch ADH..PATCH 1 PATCH TRANSDERMA (11:00)
[2024-08-04 15:51] VITALS: BP 111/72; PULSE 56; RESP 18; TEMP 36.7; O2SAT 93
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
[2024-08-04 19:40] VITALS: BP 139/79; PULSE 59; RESP 18; TEMP 36.7; O2SAT 96
[2024-08-04 20:40] VITALS: BP 139/79
[2024-08-05 03:39] VITALS: BP 118/73; PULSE 58; RESP 18; TEMP 37.1; O2SAT 93
[2024-08-05] MEDS: oxyCODONE HCl Immed Release 5 MG TABLET 10 MG PO ×5 (03:46→23:57)
[2024-08-05] MEDS: oxyCODONE HCl Immed Release 5 MG TABLET PO ×5 (03:46→23:57)
[2024-08-05] MEDS: Omeprazole 20 MG CAPSULE.DR PO (05:40)
[2024-08-05 06:51] LABS: Anion Gap 13 (12-20); Blood Urea Nitrogen 36 mg/dL (9-16); Calcium 9.1 mg/dL (8.4-10.2); Carbon Dioxide 25 mmol/L (22-29); Chloride 106 mmol/L (96-108); Creatinine Clr Calc Pharmacy 39.9; Estimated Glomerular Filt Rate 35; Glucose Random 104 mg/dL (60-115); Potassium 4.5 mmol/L (3.3-5.1); Sodium 139 mmol/L (135-145)
[2024-08-05] MEDS: Sucralfate 1 GM TABLET PO ×4 (07:07→19:59)
[2024-08-05] MEDS: 0.9 % Sodium Chloride Flush 3 ML SYRINGE IVFLUSH ×3 (07:11→19:59)
[2024-08-05 07:56] VITALS: BP 127/63; PULSE 50; RESP 18; TEMP 36.7; O2SAT 91
[2024-08-05] MEDS: Gabapentin 100 MG CAPSULE PO ×2 (08:47→19:58)
[2024-08-05] MEDS: Cholecalciferol (Vitamin D3) 25 MCG TABLET PO (08:47)
[2024-08-05] MEDS: Atorvastatin Calcium 40 MG TABLET PO (08:47)
[2024-08-05] MEDS: Multivitamin TABLET 1 TAB PO (08:47)
[2024-08-05] MEDS: Sertraline HCL 100 MG TABLET PO (08:48)
[2024-08-05] MEDS: Apixaban 5 MG TABLET PO ×2 (08:48→19:59)
[2024-08-05] MEDS: Isosorbide Mononitrate 60 MG TAB.ER.24H PO (08:48)
[2024-08-05] MEDS: hydrALAZINE HCl 25 MG TABLET PO ×2 (08:48→19:59)
[2024-08-05] MEDS: allopurinoL 100 MG TABLET PO (08:48)
[2024-08-05] MEDS: amLODIPine Besylate 10 MG TABLET PO (08:48)
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
[2024-08-05 15:28] VITALS: BP 124/66; PULSE 53; RESP 16; TEMP 36.6; O2SAT 93
[2024-08-05 19:05] VITALS: BP 123/73; PULSE 64; RESP 16; TEMP 36.3; O2SAT 97
[2024-08-05] MEDS: carvediloL 6.25 MG TABLET PO (19:58)
[2024-08-06] MEDS: oxyCODONE HCl Immed Release 5 MG TABLET 10 MG PO ×5 (03:56→20:18)
[2024-08-06 03:57] VITALS: BP 121/74; PULSE 66; RESP 17; TEMP 36.4; O2SAT 94
[2024-08-06] MEDS: oxyCODONE HCl Immed Release 5 MG TABLET PO ×5 (03:57→20:19)
[2024-08-06] MEDS: Omeprazole 20 MG CAPSULE.DR PO (05:47)
[2024-08-06] MEDS: Sucralfate 1 GM TABLET PO ×4 (07:33→20:19)
[2024-08-06] MEDS: Sertraline HCL 100 MG TABLET PO (07:33)
[2024-08-06] MEDS: Isosorbide Mononitrate 60 MG TAB.ER.24H PO (07:33)
[2024-08-06] MEDS: amLODIPine Besylate 10 MG TABLET PO (07:33)
[2024-08-06] MEDS: carvediloL 6.25 MG TABLET PO ×2 (07:33→20:19)
[2024-08-06] MEDS: Multivitamin TABLET 1 TAB PO (07:33)
[2024-08-06] MEDS: Gabapentin 100 MG CAPSULE PO ×2 (07:34→20:19)
[2024-08-06] MEDS: Cholecalciferol (Vitamin D3) 25 MCG TABLET PO (07:34)
[2024-08-06] MEDS: hydrALAZINE HCl 25 MG TABLET PO ×2 (07:34→20:19)
[2024-08-06] MEDS: allopurinoL 100 MG TABLET PO (07:34)
[2024-08-06] MEDS: Apixaban 5 MG TABLET PO ×2 (07:34→20:19)
[2024-08-06] MEDS: Atorvastatin Calcium 40 MG TABLET PO (07:34)
[2024-08-06] MEDS: hydrOXYzine HCL 25 MG TABLET PO ×2 (07:51→18:09)
[2024-08-06 08:00] VITALS: BP 119/67; PULSE 54; RESP 16; TEMP 36.7; O2SAT 95
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
--- NOTE | 2024-08-06 11:39 | MHC.CM.PN ---
Guardianship hearing scheduled for 08/09 @3:30PM. Patient was served hearing paperwork. CM will continue to follow patient for LTC placement.
[2024-08-06 15:08] VITALS: BP 118/69; PULSE 58; RESP 18; TEMP 36.3; O2SAT 96
[2024-08-06] MEDS: 0.9 % Sodium Chloride Flush 3 ML SYRINGE IVFLUSH ×2 (15:17→20:23)
[2024-08-06 19:05] VITALS: BP 145/75; PULSE 66; RESP 18; TEMP 36.8; O2SAT 98
[2024-08-07] MEDS: hydrOXYzine HCL 25 MG TABLET PO ×2 (00:02→22:05)
[2024-08-07] MEDS: oxyCODONE HCl Immed Release 5 MG TABLET 10 MG PO ×2 (00:17→09:41)
[2024-08-07] MEDS: oxyCODONE HCl Immed Release 5 MG TABLET PO ×4 (00:18→16:45)
[2024-08-07 03:08] VITALS: BP 143/67; PULSE 109; RESP 16; TEMP 36.3; O2SAT 93
[2024-08-07] MEDS: Omeprazole 20 MG CAPSULE.DR PO (05:55)
[2024-08-07 07:57] VITALS: BP 144/85; PULSE 55; RESP 14; TEMP 36.7; O2SAT 95
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
[2024-08-07] MEDS: Gabapentin 100 MG CAPSULE PO ×2 (08:59→22:04)
[2024-08-07] MEDS: Isosorbide Mononitrate 60 MG TAB.ER.24H PO (08:59)
[2024-08-07] MEDS: Atorvastatin Calcium 40 MG TABLET PO (08:59)
[2024-08-07] MEDS: Sertraline HCL 100 MG TABLET PO (08:59)
[2024-08-07] MEDS: Sucralfate 1 GM TABLET PO ×4 (08:59→22:05)
[2024-08-07] MEDS: Apixaban 5 MG TABLET PO ×2 (09:00→22:04)
[2024-08-07] MEDS: hydrALAZINE HCl 25 MG TABLET PO ×2 (09:00→22:04)
[2024-08-07] MEDS: Cholecalciferol (Vitamin D3) 25 MCG TABLET PO (09:00)
[2024-08-07] MEDS: Multivitamin TABLET 1 TAB PO (09:00)
[2024-08-07] MEDS: carvediloL 6.25 MG TABLET PO ×2 (09:00→22:05)
[2024-08-07] MEDS: allopurinoL 100 MG TABLET PO (09:00)
[2024-08-07] MEDS: amLODIPine Besylate 10 MG TABLET PO (09:00)
[2024-08-07 09:01] VITALS: PULSE 60
[2024-08-07] MEDS: 0.9 % Sodium Chloride Flush 3 ML SYRINGE IVFLUSH ×2 (09:04→15:40)
--- NOTE | 2024-08-07 14:43 | PC.NURSE ---
[employer]SEM[employer]Y WORKER stated patient requesting pain meds, when entering the room the patient is sleeping.
[2024-08-07 15:02] VITALS: BP 134/82; PULSE 69; RESP 18; TEMP 36; O2SAT 97
[2024-08-07 19:38] VITALS: BP 135/71; PULSE 73; RESP 18; TEMP 36.2; O2SAT 93
[2024-08-07] MEDS: oxyCODONE HCl Immed Release 15 MG TABLET PO (22:05)
[2024-08-08 03:20] VITALS: BP 139/86; PULSE 58; RESP 18; TEMP 36.3; O2SAT 93
[2024-08-08] MEDS: Omeprazole 20 MG CAPSULE.DR PO (06:14)
[2024-08-08] MEDS: oxyCODONE HCl Immed Release 15 MG TABLET PO (07:14)
[2024-08-08] MEDS: allopurinoL 100 MG TABLET PO (07:14)
[2024-08-08] MEDS: hydrALAZINE HCl 25 MG TABLET PO ×2 (07:14→19:37)
[2024-08-08] MEDS: amLODIPine Besylate 10 MG TABLET PO (07:14)
[2024-08-08] MEDS: Multivitamin TABLET 1 TAB PO (07:15)
[2024-08-08] MEDS: hydrOXYzine HCL 25 MG TABLET PO (07:15)
[2024-08-08] MEDS: Isosorbide Mononitrate 60 MG TAB.ER.24H PO (07:15)
[2024-08-08] MEDS: Gabapentin 100 MG CAPSULE PO ×2 (07:15→19:37)
[2024-08-08] MEDS: carvediloL 6.25 MG TABLET PO ×2 (07:15→19:38)
[2024-08-08] MEDS: Atorvastatin Calcium 40 MG TABLET PO (07:15)
[2024-08-08] MEDS: Cholecalciferol (Vitamin D3) 25 MCG TABLET PO (07:15)
[2024-08-08] MEDS: Sucralfate 1 GM TABLET PO ×4 (07:15→19:37)
[2024-08-08] MEDS: Apixaban 5 MG TABLET PO ×2 (07:15→19:37)
[2024-08-08] MEDS: Sertraline HCL 100 MG TABLET PO (07:15)
[2024-08-08 07:16] VITALS: BP 154/74; PULSE 56; RESP 16; TEMP 36.3; O2SAT 95
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
[2024-08-08 09:03] LABS: MANUAL DIFF FLAG NO
[2024-08-08 09:04] LABS: Basophils Percent Auto 0.5 % (0-2); Eosinophils Absolute Auto 0.3 X10*3/uL (0.0-0.4); Eosinophils Percent Auto 4.9 % (0-4); Hematocrit 36.3 % (42.0-52.0); Hemoglobin 12.2 g/dl (14.0-18.0); Imm Gran Abs Auto 0.02 X10*3/uL (0.00-0.03); Imm Gran Pct Auto 0.3 % (0.0-0.4); Lymphocytes Absolute Auto 0.9 X10*3/uL (1.2-4.9); Lymphocytes Percent Auto 14.1 % (20-40); Mean Corpuscular HGB Conc 33.6 g/dl (31.0-36.0); Mean Corpuscular Hemoglobin 27.5 pg (27.0-33.0); Mean Corpuscular Volume 81.8 fL (80.0-98.0); Mean Platelet Volume 9.8 fL (9.4-12.4); Monocytes Absolute Auto 0.7 X10*3/uL (0.1-1.2); Monocytes Percent Auto 11.2 % (2-11); Neutrophils Absolute Auto 4.3 x10*3/uL (2.0-8.3); Platelet Count 140 X10*3/uL (160-400); Red Blood Count 4.44 X10*6/uL (4.60-5.80); Red Cell Distribution Width 17.4 % (11.0-16.0); White Blood Count 6.2 X10*3/uL (4.8-10.8)
[2024-08-08 09:25] LABS: Anion Gap 12 (12-20); Blood Urea Nitrogen 37 mg/dL (9-16); Calcium 9.1 mg/dL (8.4-10.2); Carbon Dioxide 25 mmol/L (22-29); Chloride 106 mmol/L (96-108); Creatinine Clr Calc Pharmacy 39.7; Estimated Glomerular Filt Rate 35; Glucose Random 105 mg/dL (60-115); Potassium 4.3 mmol/L (3.3-5.1); Sodium 139 mmol/L (135-145)
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
--- NOTE | 2024-08-08 11:01 | MHC.CM.PN ---
Addendum entered by Linda Fenton RN 08/08/24 15:57: CM met with patient who reports he has a meeting at [facility] w/ potential new employment law attorney and his cousin Cuate who is assisting. CM director aware. Original Note: Patient awaiting guardianship. Hearing scheduled for 08/09. CM will continue to follow.
[2024-08-08] MEDS: oxyCODONE HCl Immed Release 5 MG TABLET PO ×2 (13:20→19:38)
[2024-08-08] MEDS: oxyCODONE HCl Immed Release 5 MG TABLET 10 MG PO ×2 (13:20→19:39)
[2024-08-08] MEDS: 0.9 % Sodium Chloride Flush 3 ML SYRINGE IVFLUSH (15:19)
[2024-08-08 15:37] VITALS: BP 149/72; PULSE 80; RESP 18; TEMP 36.9; O2SAT 97
[2024-08-08 19:37] VITALS: BP 149/72
[2024-08-08 19:38] VITALS: BP 149/72; PULSE 80
[2024-08-08 20:00] VITALS: BP 152/85; PULSE 81; RESP 18; O2SAT 95
--- NOTE | 2024-08-09 00:30 | PC.NURSE ---
pt requesting pain meds, 12/23 chronic pain, pt informed that meds are not due till 129, pt got upset and said that it is supposed to be every 4 hours, not [address] Erickson made aware and allowed to this RN to give oxy early.
[2024-08-09] MEDS: oxyCODONE HCl Immed Release 5 MG TABLET PO ×4 (00:42→22:22)
[2024-08-09] MEDS: oxyCODONE HCl Immed Release 5 MG TABLET 10 MG PO ×4 (00:43→22:21)
[2024-08-09] MEDS: 0.9 % Sodium Chloride Flush 3 ML SYRINGE IVFLUSH ×4 (00:43→22:23)
[2024-08-09 03:01] VITALS: BP 142/79; PULSE 61; RESP 16; TEMP 36; O2SAT 93
[2024-08-09] MEDS: Omeprazole 20 MG CAPSULE.DR PO (05:58)
[2024-08-09 06:58] VITALS: BP 125/74; PULSE 62; RESP 17; TEMP 36.7; O2SAT 96
[2024-08-09 07:20] VITALS: BP 147/79; PULSE 53; RESP 20; TEMP 36.2; O2SAT 96
[2024-08-09] MEDS: Cholecalciferol (Vitamin D3) 25 MCG TABLET PO (07:25)
[2024-08-09] MEDS: allopurinoL 100 MG TABLET PO (07:26)
[2024-08-09] MEDS: Sucralfate 1 GM TABLET PO ×4 (07:26→22:19)
[2024-08-09] MEDS: Atorvastatin Calcium 40 MG TABLET PO (07:26)
[2024-08-09] MEDS: hydrALAZINE HCl 25 MG TABLET PO ×2 (07:26→22:20)
[2024-08-09] MEDS: Apixaban 5 MG TABLET PO ×2 (07:26→22:21)
[2024-08-09] MEDS: Gabapentin 100 MG CAPSULE PO ×2 (07:27→22:19)
[2024-08-09] MEDS: Sertraline HCL 100 MG TABLET PO (07:27)
[2024-08-09] MEDS: Isosorbide Mononitrate 60 MG TAB.ER.24H PO (07:27)
[2024-08-09] MEDS: Multivitamin TABLET 1 TAB PO (07:27)
[2024-08-09] MEDS: amLODIPine Besylate 10 MG TABLET PO (07:33)
--- NOTE | 2024-08-09 07:36 | PC.NURSE ---
HR 53 held Coreg,[facility] Schreiber notified
[2024-08-09] MEDS: Lidocaine 4 % Patch ADH..PATCH 1 PATCH TRANSDERMA (08:43)
--- NOTE | 2024-08-09 11:39 | PC.NURSE ---
Patient refused chair alarm while in WC,encouraged pt to ask for assistance '
--- NOTE | 2024-08-09 14:45 | MHC.CM.PN ---
This abstract writer spoke w/ Jackie [employer] re: pt's ability to sign a HCP. Jackie verified that patient is of sound mind to sign a HCP. HCP completed w/ pt- original provided to patient along w/ a copy for Ernie. Cuello's contact information as below: Piero Bridges [address] [place] [address] Court hearing for guardianship cancelled. CM will continue to work with HCP for d/c planning- patient still is unable to return to home as it currently is owned by the [facility] d/t back taxes. This was communicated to patient.
--- NOTE | 2024-08-09 14:52 | MHC.CM.PN ---
CM spoke w/ new HCP/cousin Cuate. Cuate's goal for patient is return home, and he will work w/ the city to resolve issues w/ the home. May need STR first, CM will request new PT eval. If unable to return home will need placement - rest home vs. LTC. Cuate will work w/ financial services for [employer] [facility] prior to referrals. CM will continue to follow.
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
[2024-08-09 15:48] VITALS: BP 142/67; PULSE 68; RESP 16; TEMP 36.2; O2SAT 92
[2024-08-09 20:00] VITALS: BP 137/67; PULSE 56; RESP 20; TEMP 36.1; O2SAT 94
[2024-08-09 22:20] VITALS: BP 137/67; PULSE 56
[2024-08-10] MEDS: HYDROmorphone HCl 0.5 MG/0.5 ML SYRINGE IVPUSH (01:26)
[2024-08-10 03:09] VITALS: BP 143/73; PULSE 65; RESP 20; TEMP 36.7; O2SAT 93
[2024-08-10] MEDS: oxyCODONE HCl Immed Release 5 MG TABLET PO ×3 (05:59→19:31)
[2024-08-10] MEDS: oxyCODONE HCl Immed Release 5 MG TABLET 10 MG PO ×3 (05:59→19:30)
[2024-08-10] MEDS: Omeprazole 20 MG CAPSULE.DR PO (05:59)
[2024-08-10 07:42] VITALS: BP 148/74; PULSE 60; RESP 20; TEMP 36.8; O2SAT 93
[2024-08-10] MEDS: Apixaban 5 MG TABLET PO ×2 (08:37→19:32)
[2024-08-10] MEDS: Cholecalciferol (Vitamin D3) 25 MCG TABLET PO (08:37)
[2024-08-10] MEDS: carvediloL 6.25 MG TABLET PO ×2 (08:37→19:32)
[2024-08-10] MEDS: amLODIPine Besylate 10 MG TABLET PO (08:37)
[2024-08-10] MEDS: Sucralfate 1 GM TABLET PO ×4 (08:37→19:32)
[2024-08-10] MEDS: hydrALAZINE HCl 25 MG TABLET PO ×2 (08:38→19:32)
[2024-08-10] MEDS: allopurinoL 100 MG TABLET PO (08:38)
[2024-08-10] MEDS: Isosorbide Mononitrate 60 MG TAB.ER.24H PO (08:38)
[2024-08-10] MEDS: Gabapentin 100 MG CAPSULE PO ×2 (08:38→19:32)
[2024-08-10] MEDS: Atorvastatin Calcium 40 MG TABLET PO (08:38)
[2024-08-10] MEDS: Sertraline HCL 100 MG TABLET PO (08:38)
[2024-08-10] MEDS: Multivitamin TABLET 1 TAB PO (08:38)
[2024-08-10] MEDS: 0.9 % Sodium Chloride Flush 3 ML SYRINGE IVFLUSH ×2 (08:39→14:36)
[2024-08-10] MEDS: Lidocaine 4 % Patch ADH..PATCH 1 PATCH TRANSDERMA (08:40)
[2024-08-10] MEDS: hydrOXYzine HCL 25 MG TABLET PO (14:35)
[2024-08-10 15:04] VITALS: BP 130/73; PULSE 72; RESP 16; TEMP 36.9; O2SAT 96
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
[2024-08-10 19:25] VITALS: BP 127/69; PULSE 74; RESP 18; TEMP 36.8; O2SAT 96
[2024-08-11] MEDS: oxyCODONE HCl Immed Release 5 MG TABLET PO ×4 (01:31→20:04)
[2024-08-11] MEDS: oxyCODONE HCl Immed Release 5 MG TABLET 10 MG PO ×4 (01:31→20:04)
[2024-08-11 03:27] VITALS: BP 131/96; PULSE 74; RESP 18; TEMP 36.6; O2SAT 95
[2024-08-11] MEDS: Lidocaine 4 % Patch ADH..PATCH 1 PATCH TRANSDERMA (07:44)
[2024-08-11] MEDS: Sucralfate 1 GM TABLET PO ×4 (07:45→20:05)
[2024-08-11] MEDS: Gabapentin 100 MG CAPSULE PO ×2 (07:45→20:05)
[2024-08-11] MEDS: Cholecalciferol (Vitamin D3) 25 MCG TABLET PO (07:45)
[2024-08-11] MEDS: carvediloL 6.25 MG TABLET PO ×2 (07:45→20:05)
[2024-08-11] MEDS: Apixaban 5 MG TABLET PO ×2 (07:46→20:05)
[2024-08-11] MEDS: Isosorbide Mononitrate 60 MG TAB.ER.24H PO (07:46)
[2024-08-11] MEDS: Sertraline HCL 100 MG TABLET PO (07:46)
[2024-08-11] MEDS: hydrALAZINE HCl 25 MG TABLET PO ×2 (07:46→20:05)
[2024-08-11] MEDS: Multivitamin TABLET 1 TAB PO (07:46)
[2024-08-11 07:47] VITALS: BP 135/75; PULSE 61; RESP 14; TEMP 36.2; O2SAT 93
[2024-08-11] MEDS: allopurinoL 100 MG TABLET PO (07:47)
[2024-08-11] MEDS: Atorvastatin Calcium 40 MG TABLET PO (07:47)
[2024-08-11] MEDS: 0.9 % Sodium Chloride Flush 3 ML SYRINGE IVFLUSH ×2 (07:47→16:04)
[2024-08-11] MEDS: amLODIPine Besylate 10 MG TABLET PO (07:47)
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
[2024-08-11 15:27] VITALS: BP 155/86; PULSE 72; RESP 16; TEMP 36.6; O2SAT 95
[2024-08-11 19:30] VITALS: BP 128/64; PULSE 65; RESP 18; TEMP 36.7; O2SAT 96
[2024-08-12] MEDS: oxyCODONE HCl Immed Release 5 MG TABLET 10 MG PO ×4 (02:04→20:48)
[2024-08-12] MEDS: oxyCODONE HCl Immed Release 5 MG TABLET PO ×4 (02:05→20:49)
[2024-08-12 03:19] VITALS: BP 145/71; PULSE 58; RESP 17; TEMP 36.4; O2SAT 93
[2024-08-12] MEDS: Omeprazole 20 MG CAPSULE.DR PO (06:16)
--- NOTE | 2024-08-12 06:22 | PC.NURSE ---
This RN found 2 Oxycodone (5mg each) at pt's bedside. One in the bed and the other under the pt's bed. During this time, pt was comfortably asleep in bed. Prior to this event, this RN administered PRN of Oxycodone 5 mg and 10mg for 7/10 pain, see MAR. The 2 Oxycodone that was found at pt's bedside was wasted in the Pyxis with RACHEL Landis at 06:20. Will continue to monitor. Report will be giving to oncoming RN.
[2024-08-12] MEDS: Sucralfate 1 GM TABLET PO ×4 (07:19→20:08)
[2024-08-12 08:00] VITALS: BP 145/76; PULSE 59; RESP 18; TEMP 36.8; O2SAT 97
[2024-08-12] MEDS: allopurinoL 100 MG TABLET PO (08:39)
[2024-08-12] MEDS: hydrALAZINE HCl 25 MG TABLET PO ×2 (08:39→20:09)
[2024-08-12] MEDS: amLODIPine Besylate 10 MG TABLET PO (08:39)
[2024-08-12] MEDS: Apixaban 5 MG TABLET PO ×2 (08:40→20:08)
[2024-08-12] MEDS: carvediloL 6.25 MG TABLET PO ×2 (08:40→20:10)
[2024-08-12] MEDS: Sertraline HCL 100 MG TABLET PO (08:40)
[2024-08-12] MEDS: Isosorbide Mononitrate 60 MG TAB.ER.24H PO (08:40)
[2024-08-12] MEDS: Atorvastatin Calcium 40 MG TABLET PO (08:40)
[2024-08-12] MEDS: Multivitamin TABLET 1 TAB PO (08:40)
[2024-08-12] MEDS: Cholecalciferol (Vitamin D3) 25 MCG TABLET PO (08:40)
[2024-08-12] MEDS: Lidocaine 4 % Patch ADH..PATCH 1 PATCH TRANSDERMA (08:40)
[2024-08-12] MEDS: Gabapentin 100 MG CAPSULE PO ×2 (08:40→20:08)
[2024-08-12] MEDS: 0.9 % Sodium Chloride Flush 3 ML SYRINGE IVFLUSH ×3 (08:41→20:08)
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
[2024-08-12 15:20] VITALS: BP 132/70; PULSE 66; RESP 16; TEMP 36; O2SAT 97
[2024-08-12 19:39] VITALS: BP 111/58; PULSE 69; RESP 18; TEMP 36.3; O2SAT 93
[2024-08-13] MEDS: oxyCODONE HCl Immed Release 5 MG TABLET PO ×4 (02:48→20:43)
[2024-08-13] MEDS: oxyCODONE HCl Immed Release 5 MG TABLET 10 MG PO ×4 (02:49→20:43)
[2024-08-13 03:57] VITALS: BP 134/84; PULSE 63; RESP 18; TEMP 36.3; O2SAT 97
[2024-08-13] MEDS: Omeprazole 20 MG CAPSULE.DR PO (05:48)
[2024-08-13 07:55] VITALS: BP 126/64; PULSE 51; RESP 18; TEMP 36.1; O2SAT 93
[2024-08-13] MEDS: Lidocaine 4 % Patch ADH..PATCH 1 PATCH TRANSDERMA (08:19)
[2024-08-13] MEDS: carvediloL 6.25 MG TABLET PO ×2 (08:21→19:32)
[2024-08-13] MEDS: Apixaban 5 MG TABLET PO ×2 (08:22→19:31)
[2024-08-13] MEDS: amLODIPine Besylate 10 MG TABLET PO (08:22)
[2024-08-13] MEDS: Multivitamin TABLET 1 TAB PO (08:22)
[2024-08-13] MEDS: Cholecalciferol (Vitamin D3) 25 MCG TABLET PO (08:22)
[2024-08-13] MEDS: Sertraline HCL 100 MG TABLET PO (08:22)
[2024-08-13] MEDS: Atorvastatin Calcium 40 MG TABLET PO (08:22)
[2024-08-13] MEDS: hydrALAZINE HCl 25 MG TABLET PO ×2 (08:22→19:31)
[2024-08-13] MEDS: Sucralfate 1 GM TABLET PO ×4 (08:22→19:32)
[2024-08-13] MEDS: Isosorbide Mononitrate 60 MG TAB.ER.24H PO (08:22)
[2024-08-13] MEDS: Gabapentin 100 MG CAPSULE PO ×2 (08:22→19:32)
[2024-08-13] MEDS: allopurinoL 100 MG TABLET PO (08:22)
--- NOTE | 2024-08-13 11:33 | MHC.CM.PN ---
Addendum entered by Linda Fenton RN 08/13/24 14:20: PT eval complete. No skilled therapy recommended. Home w/ services, if cousin is able to get house ready vs LTC. Original Note: Patient continues to await safe dc plan. CM spoke w/ HCP, [facility]. Per [facility], dc goal is STR then home w/ services. [facility] has reached out to the city to resolve issues w/ patient's house and is awaiting a response. This CM requested PT eval from . Also discussed continuing plan for [employer] [facility], in case patient is unable to return to the home and does need LTC. Message sent to financial counselor to connect w/ [facility] today. CM will continue to follow.
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
[2024-08-13 16:06] VITALS: BP 119/68; PULSE 57; RESP 18; TEMP 37; O2SAT 98
--- NOTE | 2024-08-13 16:54 | PC.NURSE ---
Pt vague at times. Cooperative with care. Tolerating po and medications without difficulty. W/c bound at baseline. Voiding in urinal.
[2024-08-13] MEDS: 0.9 % Sodium Chloride Flush 3 ML SYRINGE IVFLUSH ×2 (17:16→19:35)
[2024-08-13 19:15] VITALS: BP 148/72; PULSE 69; RESP 17; TEMP 36.2; O2SAT 93
[2024-08-13] MEDS: hydrOXYzine HCL 25 MG TABLET PO (19:32)
[2024-08-13] MEDS: Melatonin 3 MG TABLET 6 MG PO (20:43)
[2024-08-14 03:17] VITALS: BP 131/75; PULSE 59; RESP 16; TEMP 36.1; O2SAT 94
[2024-08-14] MEDS: oxyCODONE HCl Immed Release 5 MG TABLET 10 MG PO ×4 (03:24→21:39)
[2024-08-14] MEDS: oxyCODONE HCl Immed Release 5 MG TABLET PO ×4 (03:24→21:39)
--- NOTE | 2024-08-14 05:52 | PC.NURSE ---
pt alert & oriented x3 with some vagueness. pt took pills whole with water, requesting prn oxy for pain. w/c bound at baseline, pt using urinal and call wray appropriately.
[2024-08-14] MEDS: Omeprazole 20 MG CAPSULE.DR PO (06:28)
[2024-08-14] MEDS: Sucralfate 1 GM TABLET PO ×4 (06:28→19:56)
[2024-08-14] MEDS: Lidocaine 4 % Patch ADH..PATCH 1 PATCH TRANSDERMA (08:21)
[2024-08-14] MEDS: Multivitamin TABLET 1 TAB PO (08:24)
[2024-08-14] MEDS: Isosorbide Mononitrate 60 MG TAB.ER.24H PO (08:24)
[2024-08-14] MEDS: allopurinoL 100 MG TABLET PO (08:24)
[2024-08-14] MEDS: Atorvastatin Calcium 40 MG TABLET PO (08:24)
[2024-08-14] MEDS: hydrALAZINE HCl 25 MG TABLET PO ×2 (08:24→19:56)
[2024-08-14] MEDS: Cholecalciferol (Vitamin D3) 25 MCG TABLET PO (08:24)
[2024-08-14] MEDS: Gabapentin 100 MG CAPSULE PO ×2 (08:24→19:56)
[2024-08-14] MEDS: amLODIPine Besylate 10 MG TABLET PO (08:24)
[2024-08-14] MEDS: carvediloL 6.25 MG TABLET PO ×2 (08:24→19:56)
[2024-08-14] MEDS: Sertraline HCL 100 MG TABLET PO (08:24)
[2024-08-14] MEDS: 0.9 % Sodium Chloride Flush 3 ML SYRINGE IVFLUSH ×3 (08:28→21:42)
[2024-08-14 08:32] VITALS: BP 118/62; PULSE 50; RESP 18; TEMP 37; O2SAT 96
[2024-08-14] MEDS: Apixaban 5 MG TABLET PO ×2 (09:38→19:56)
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
[2024-08-14 16:14] VITALS: BP 158/96; PULSE 55; RESP 18; TEMP 36.2; O2SAT 93
[2024-08-14 19:31] VITALS: BP 153/74; PULSE 62; RESP 20; TEMP 36.3; O2SAT 96
[2024-08-14] MEDS: Melatonin 3 MG TABLET 6 MG PO (21:39)
[2024-08-15 03:09] VITALS: BP 137/70; PULSE 66; RESP 18; TEMP 36.5; O2SAT 93
[2024-08-15] MEDS: Sucralfate 1 GM TABLET PO ×4 (06:19→19:44)
[2024-08-15] MEDS: oxyCODONE HCl Immed Release 5 MG TABLET PO ×3 (06:19→19:44)
[2024-08-15] MEDS: Omeprazole 20 MG CAPSULE.DR PO (06:19)
[2024-08-15] MEDS: oxyCODONE HCl Immed Release 5 MG TABLET 10 MG PO ×3 (06:19→19:43)
[2024-08-15 07:24] VITALS: BP 110/62; PULSE 47; RESP 16; TEMP 36; O2SAT 95
[2024-08-15] MEDS: Lidocaine 4 % Patch ADH..PATCH 1 PATCH TRANSDERMA (08:03)
[2024-08-15] MEDS: Multivitamin TABLET 1 TAB PO (08:04)
[2024-08-15] MEDS: hydrALAZINE HCl 25 MG TABLET PO ×2 (08:04→19:44)
[2024-08-15] MEDS: amLODIPine Besylate 10 MG TABLET PO (08:04)
[2024-08-15] MEDS: Isosorbide Mononitrate 60 MG TAB.ER.24H PO (08:04)
[2024-08-15] MEDS: Gabapentin 100 MG CAPSULE PO ×2 (08:04→19:44)
[2024-08-15] MEDS: allopurinoL 100 MG TABLET PO (08:05)
[2024-08-15] MEDS: Cholecalciferol (Vitamin D3) 25 MCG TABLET PO (08:05)
[2024-08-15] MEDS: Apixaban 5 MG TABLET PO ×2 (08:05→19:44)
[2024-08-15] MEDS: Sertraline HCL 100 MG TABLET PO (08:05)
[2024-08-15] MEDS: Atorvastatin Calcium 40 MG TABLET PO (08:05)
[2024-08-15] MEDS: 0.9 % Sodium Chloride Flush 3 ML SYRINGE IVFLUSH ×3 (08:08→19:45)
[2024-08-15 08:37] LABS: Hemoglobin 11.9 g/dl (14.0-18.0); Mean Corpuscular HGB Conc 32.2 g/dl (31.0-36.0); Mean Corpuscular Hemoglobin 26.9 pg (27.0-33.0); Mean Corpuscular Volume 83.5 fL (80.0-98.0); Mean Platelet Volume 9.8 fL (9.4-12.4); Platelet Count 123 X10*3/uL (160-400); Red Blood Count 4.43 X10*6/uL (4.60-5.80); White Blood Count 5.2 X10*3/uL (4.8-10.8)
[2024-08-15 09:00] LABS: Anion Gap 12 (12-20); Blood Urea Nitrogen 32 mg/dL (9-16); Calcium 9.1 mg/dL (8.4-10.2); Carbon Dioxide 27 mmol/L (22-29); Chloride 105 mmol/L (96-108); Creatinine Clr Calc Pharmacy 40.5; Estimated Glomerular Filt Rate 36; Glucose Random 87 mg/dL (60-115); Potassium 4.9 mmol/L (3.3-5.1); Sodium 139 mmol/L (135-145)
--- NOTE | 2024-08-15 11:04 | MHC.CM.PN ---
Patient continues to await safe dc plan. Per financial counselor, [employer] [facility] was started yesterday and HCP [facility] will start gathering documents. [facility] continues to await answer from the [facility] on resolving issues w/ the home. CM will continue to follow.
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
[2024-08-15 15:05] VITALS: BP 137/74; PULSE 60; RESP 18; TEMP 36; O2SAT 95
[2024-08-15] MEDS: carvediloL 6.25 MG TABLET PO (19:44)
[2024-08-15 19:45] VITALS: BP 140/22; PULSE 67; RESP 16; TEMP 36.5; O2SAT 97
[2024-08-15] MEDS: Melatonin 3 MG TABLET 6 MG PO (22:33)
[2024-08-16 03:17] VITALS: BP 131/76; PULSE 65; RESP 18; TEMP 36.4; O2SAT 95
[2024-08-16] MEDS: oxyCODONE HCl Immed Release 5 MG TABLET 10 MG PO ×3 (05:26→18:32)
[2024-08-16] MEDS: oxyCODONE HCl Immed Release 5 MG TABLET PO ×3 (05:27→18:32)
[2024-08-16] MEDS: Omeprazole 20 MG CAPSULE.DR PO (05:27)
[2024-08-16] MEDS: Sucralfate 1 GM TABLET PO ×4 (06:24→20:19)
[2024-08-16 07:05] VITALS: BP 154/81; PULSE 62; RESP 16; TEMP 36.7; O2SAT 94
[2024-08-16] MEDS: Lidocaine 4 % Patch ADH..PATCH 1 PATCH TRANSDERMA (07:19)
[2024-08-16] MEDS: Gabapentin 100 MG CAPSULE PO ×2 (07:21→20:19)
[2024-08-16] MEDS: Cholecalciferol (Vitamin D3) 25 MCG TABLET PO (07:21)
[2024-08-16] MEDS: Apixaban 5 MG TABLET PO ×2 (07:21→20:19)
[2024-08-16] MEDS: hydrALAZINE HCl 25 MG TABLET PO ×2 (07:21→20:19)
[2024-08-16] MEDS: amLODIPine Besylate 10 MG TABLET PO (07:21)
[2024-08-16] MEDS: Multivitamin TABLET 1 TAB PO (07:22)
[2024-08-16] MEDS: Isosorbide Mononitrate 60 MG TAB.ER.24H PO (07:22)
[2024-08-16] MEDS: Atorvastatin Calcium 40 MG TABLET PO (07:22)
[2024-08-16] MEDS: Acetaminophen 325 MG TABLET 650 MG PO (07:22)
[2024-08-16] MEDS: allopurinoL 100 MG TABLET PO (07:22)
[2024-08-16] MEDS: carvediloL 6.25 MG TABLET PO ×2 (07:23→20:19)
[2024-08-16] MEDS: Sertraline HCL 100 MG TABLET PO (07:23)
[2024-08-16] MEDS: hydrOXYzine HCL 25 MG TABLET PO (07:23)
[2024-08-16] MEDS: 0.9 % Sodium Chloride Flush 3 ML SYRINGE IVFLUSH (07:26)
--- NOTE | 2024-08-16 11:21 | MHC.CM.PN ---
Addendum entered by Linda Fenton RN 08/16/24 11:25: [facility] was not able to access bank accounts. [facility] reports patient is calling both [employer] ([facility] and another bank) to request that statements be mailed. Original Note: IRENE spoke with HCP [facility]. Per [facility], the city has responded. House needs water turned back on, a deep clean, and then will be reinspected. [facility] will have water turned back on and arrange for a cleaning service. Goal remains home w/ services. [facility] and [facility] referral in place.
[2024-08-16 15:41] VITALS: BP 130/68; PULSE 68; RESP 16; TEMP 36.7; O2SAT 95
--- NOTE | 2024-08-16 16:06 | PC.NURSE ---
removed IV access , provider aware , will keep iv out for comfort .
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
--- NOTE | 2024-08-16 18:46 | PC.NURSE ---
per bob salazar ok to give 15 mg oxy PRN
[2024-08-16 19:27] VITALS: BP 120/73; PULSE 52; RESP 18; TEMP 36.7; O2SAT 96
[2024-08-17] MEDS: oxyCODONE HCl Immed Release 5 MG TABLET PO ×4 (00:36→20:58)
[2024-08-17] MEDS: oxyCODONE HCl Immed Release 5 MG TABLET 10 MG PO ×4 (00:36→20:57)
[2024-08-17] MEDS: Melatonin 3 MG TABLET 6 MG PO (02:32)
[2024-08-17 03:33] VITALS: BP 114/61; PULSE 61; RESP 18; TEMP 36.4; O2SAT 94
[2024-08-17] MEDS: Omeprazole 20 MG CAPSULE.DR PO (06:06)
[2024-08-17] MEDS: Isosorbide Mononitrate 60 MG TAB.ER.24H PO (07:08)
[2024-08-17] MEDS: Cholecalciferol (Vitamin D3) 25 MCG TABLET PO (07:08)
[2024-08-17] MEDS: hydrALAZINE HCl 25 MG TABLET PO ×2 (07:08→20:56)
[2024-08-17] MEDS: Sucralfate 1 GM TABLET PO ×4 (07:08→20:58)
[2024-08-17] MEDS: Atorvastatin Calcium 40 MG TABLET PO (07:08)
[2024-08-17] MEDS: Multivitamin TABLET 1 TAB PO (07:09)
[2024-08-17] MEDS: Gabapentin 100 MG CAPSULE PO ×3 (07:09→20:58)
[2024-08-17] MEDS: carvediloL 6.25 MG TABLET PO ×2 (07:09→20:56)
[2024-08-17] MEDS: amLODIPine Besylate 10 MG TABLET PO (07:09)
[2024-08-17] MEDS: allopurinoL 100 MG TABLET PO (07:09)
[2024-08-17] MEDS: Apixaban 5 MG TABLET PO ×2 (07:09→20:58)
[2024-08-17] MEDS: Lidocaine 4 % Patch ADH..PATCH 1 PATCH TRANSDERMA (07:09)
[2024-08-17] MEDS: Sertraline HCL 100 MG TABLET PO (07:09)
[2024-08-17 07:53] VITALS: BP 143/56; PULSE 52; RESP 12; TEMP 36.4; O2SAT 94
--- NOTE | 2024-08-17 10:35 | MHC.CM.PN ---
Patient continues to await safe dc plan. Patient reports he has called both [employer] to request bank statements. CM will continue to follow.
[2024-08-17 15:35] VITALS: BP 123/75; PULSE 70; RESP 18; TEMP 36.2; O2SAT 97
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
[2024-08-17 19:32] VITALS: BP 142/80; PULSE 62; RESP 18; TEMP 36.2; O2SAT 94
[2024-08-18 04:00] VITALS: BP 144/69; PULSE 56; RESP 18; TEMP 36.1
[2024-08-18] MEDS: Omeprazole 20 MG CAPSULE.DR PO (05:46)
[2024-08-18] MEDS: Sucralfate 1 GM TABLET PO ×4 (06:09→21:01)
[2024-08-18 07:39] VITALS: BP 139/84; PULSE 51; RESP 18; TEMP 36.6; O2SAT 95
[2024-08-18] MEDS: carvediloL 6.25 MG TABLET PO ×2 (09:00→21:01)
[2024-08-18] MEDS: amLODIPine Besylate 10 MG TABLET PO (09:00)
[2024-08-18] MEDS: Atorvastatin Calcium 40 MG TABLET PO (09:00)
[2024-08-18] MEDS: Sertraline HCL 100 MG TABLET PO (09:01)
[2024-08-18] MEDS: Cholecalciferol (Vitamin D3) 25 MCG TABLET PO (09:01)
[2024-08-18] MEDS: Gabapentin 100 MG CAPSULE PO ×3 (09:01→21:01)
[2024-08-18] MEDS: Isosorbide Mononitrate 60 MG TAB.ER.24H PO (09:01)
[2024-08-18] MEDS: allopurinoL 100 MG TABLET PO (09:01)
[2024-08-18] MEDS: hydrALAZINE HCl 25 MG TABLET PO ×2 (09:01→21:01)
[2024-08-18] MEDS: Multivitamin TABLET 1 TAB PO (09:01)
[2024-08-18] MEDS: Apixaban 5 MG TABLET PO ×2 (09:01→21:01)
[2024-08-18] MEDS: Lidocaine 4 % Patch ADH..PATCH 1 PATCH TRANSDERMA (09:02)
[2024-08-18] MEDS: oxyCODONE HCl Immed Release 15 MG TABLET PO ×3 (09:05→21:01)
[2024-08-18 15:05] VITALS: BP 121/70; PULSE 62; RESP 18; TEMP 36.2; O2SAT 93
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
[2024-08-18 19:35] VITALS: BP 146/72; PULSE 62; RESP 18; TEMP 36.2; O2SAT 92
[2024-08-19 02:57] VITALS: BP 122/64; PULSE 58; RESP 16; TEMP 36.4; O2SAT 94
[2024-08-19] MEDS: oxyCODONE HCl Immed Release 15 MG TABLET PO ×3 (02:59→15:36)
[2024-08-19] MEDS: Sucralfate 1 GM TABLET PO ×4 (05:51→20:42)
[2024-08-19] MEDS: Omeprazole 20 MG CAPSULE.DR PO (05:52)
[2024-08-19 07:51] VITALS: BP 124/73; PULSE 53; RESP 18; TEMP 36.1; O2SAT 93
[2024-08-19] MEDS: Lidocaine 4 % Patch ADH..PATCH 1 PATCH TRANSDERMA ×2 (08:36→12:18)
[2024-08-19] MEDS: Isosorbide Mononitrate 60 MG TAB.ER.24H PO (08:36)
[2024-08-19] MEDS: Multivitamin TABLET 1 TAB PO (08:36)
[2024-08-19] MEDS: carvediloL 6.25 MG TABLET PO ×2 (08:36→20:42)
[2024-08-19] MEDS: Atorvastatin Calcium 40 MG TABLET PO (08:36)
[2024-08-19] MEDS: Apixaban 5 MG TABLET PO ×2 (08:37→20:42)
[2024-08-19] MEDS: Gabapentin 100 MG CAPSULE PO ×3 (08:37→20:42)
[2024-08-19] MEDS: allopurinoL 100 MG TABLET PO (08:37)
[2024-08-19] MEDS: Cholecalciferol (Vitamin D3) 25 MCG TABLET PO (08:37)
[2024-08-19] MEDS: hydrALAZINE HCl 25 MG TABLET PO ×2 (08:37→20:42)
[2024-08-19] MEDS: amLODIPine Besylate 10 MG TABLET PO (08:37)
[2024-08-19] MEDS: Sertraline HCL 100 MG TABLET PO (08:37)
[2024-08-19 15:04] VITALS: BP 131/76; PULSE 58; RESP 18; TEMP 36.7; O2SAT 93
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
[2024-08-19 18:56] VITALS: BP 125/70; PULSE 55; RESP 18; TEMP 36.1; O2SAT 94
[2024-08-20 03:10] VITALS: BP 141/73; PULSE 59; RESP 18; TEMP 36.1; O2SAT 92
[2024-08-20] MEDS: oxyCODONE HCl Immed Release 15 MG TABLET PO ×4 (03:21→20:55)
[2024-08-20] MEDS: Sucralfate 1 GM TABLET PO ×4 (06:28→20:55)
[2024-08-20] MEDS: Omeprazole 20 MG CAPSULE.DR PO (06:28)
[2024-08-20] MEDS: oxyCODONE HCl Immed Release 5 MG TABLET 10 MG PO (07:04)
[2024-08-20 07:06] VITALS: BP 121/73; PULSE 58; RESP 16; TEMP 36.6; O2SAT 95
[2024-08-20] MEDS: Atorvastatin Calcium 40 MG TABLET PO (08:59)
[2024-08-20] MEDS: Multivitamin TABLET 1 TAB PO (09:00)
[2024-08-20] MEDS: allopurinoL 100 MG TABLET PO (09:00)
[2024-08-20] MEDS: amLODIPine Besylate 10 MG TABLET PO (09:00)
[2024-08-20] MEDS: Isosorbide Mononitrate 60 MG TAB.ER.24H PO (09:00)
[2024-08-20] MEDS: Gabapentin 100 MG CAPSULE PO ×3 (09:00→20:51)
[2024-08-20] MEDS: carvediloL 6.25 MG TABLET PO ×2 (09:00→20:55)
[2024-08-20] MEDS: Apixaban 5 MG TABLET PO ×2 (09:00→20:51)
[2024-08-20] MEDS: Sertraline HCL 100 MG TABLET PO (09:00)
[2024-08-20] MEDS: Cholecalciferol (Vitamin D3) 25 MCG TABLET PO (09:00)
[2024-08-20] MEDS: Lidocaine 4 % Patch ADH..PATCH 1 PATCH TRANSDERMA (09:00)
[2024-08-20] MEDS: hydrALAZINE HCl 25 MG TABLET PO ×2 (09:01→20:55)
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
[2024-08-20] MEDS: hydrOXYzine HCL 25 MG TABLET PO (10:45)
--- NOTE | 2024-08-20 12:15 | MHC.CM.PN ---
Patient continues to await safe dc plan: home w/ services, if city deems home habitable vs LTC. HCP continues to work on both home issues and LTC se[facility].
[2024-08-20 15:06] VITALS: BP 130/64; PULSE 62; RESP 18; TEMP 36.8; O2SAT 93
[2024-08-20 19:12] VITALS: BP 144/65; PULSE 59; RESP 18; TEMP 36.9; O2SAT 93
[2024-08-21] MEDS: oxyCODONE HCl Immed Release 15 MG TABLET PO ×3 (02:52→21:50)
[2024-08-21 03:19] VITALS: BP 131/67; PULSE 58; RESP 18; TEMP 36.5; O2SAT 93
[2024-08-21] MEDS: Omeprazole 20 MG CAPSULE.DR PO (06:20)
[2024-08-21] MEDS: Sucralfate 1 GM TABLET PO ×4 (06:20→21:48)
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
[2024-08-21] MEDS: amLODIPine Besylate 10 MG TABLET PO (09:33)
[2024-08-21] MEDS: hydrALAZINE HCl 25 MG TABLET PO ×2 (09:33→21:47)
[2024-08-21] MEDS: Lidocaine 4 % Patch ADH..PATCH 1 PATCH TRANSDERMA (09:33)
[2024-08-21] MEDS: Cholecalciferol (Vitamin D3) 25 MCG TABLET PO (09:33)
[2024-08-21] MEDS: Apixaban 5 MG TABLET PO ×2 (09:33→21:48)
[2024-08-21] MEDS: Atorvastatin Calcium 40 MG TABLET PO (09:34)
[2024-08-21] MEDS: Multivitamin TABLET 1 TAB PO (09:34)
[2024-08-21] MEDS: carvediloL 6.25 MG TABLET PO ×2 (09:34→21:49)
[2024-08-21] MEDS: allopurinoL 100 MG TABLET PO (09:34)
[2024-08-21] MEDS: Isosorbide Mononitrate 60 MG TAB.ER.24H PO (09:34)
[2024-08-21] MEDS: Sertraline HCL 100 MG TABLET PO (09:34)
[2024-08-21] MEDS: Gabapentin 100 MG CAPSULE PO ×3 (09:34→21:48)
[2024-08-21 15:12] VITALS: BP 147/82; PULSE 62; RESP 18; TEMP 36.9; O2SAT 95
[2024-08-21 19:02] VITALS: BP 145/76; PULSE 72; RESP 18; TEMP 36; O2SAT 94
[2024-08-21 21:47] VITALS: BP 145/76
[2024-08-21 21:49] VITALS: BP 145/76; PULSE 72
[2024-08-22] MEDS: oxyCODONE HCl Immed Release 5 MG TABLET 10 MG PO ×3 (03:26→17:03)
[2024-08-22 03:38] VITALS: BP 125/60; PULSE 65; RESP 18; TEMP 36.2; O2SAT 93
[2024-08-22] MEDS: Omeprazole 20 MG CAPSULE.DR PO (06:08)
[2024-08-22] MEDS: Sertraline HCL 100 MG TABLET PO (06:54)
[2024-08-22] MEDS: Atorvastatin Calcium 40 MG TABLET PO (06:54)
[2024-08-22] MEDS: Sucralfate 1 GM TABLET PO ×4 (06:54→19:49)
[2024-08-22] MEDS: oxyCODONE HCl Immed Release 15 MG TABLET PO ×4 (06:54→22:54)
[2024-08-22] MEDS: Apixaban 5 MG TABLET PO ×2 (06:54→19:49)
[2024-08-22] MEDS: Multivitamin TABLET 1 TAB PO (06:54)
[2024-08-22] MEDS: Gabapentin 100 MG CAPSULE PO ×3 (06:54→19:47)
[2024-08-22] MEDS: allopurinoL 100 MG TABLET PO (06:54)
[2024-08-22 07:50] VITALS: BP 150/74; PULSE 53; RESP 12; TEMP 36.1; O2SAT 94
[2024-08-22] MEDS: Isosorbide Mononitrate 60 MG TAB.ER.24H PO (08:18)
[2024-08-22] MEDS: amLODIPine Besylate 10 MG TABLET PO (08:18)
[2024-08-22] MEDS: Cholecalciferol (Vitamin D3) 25 MCG TABLET PO (08:18)
[2024-08-22] MEDS: carvediloL 6.25 MG TABLET PO (08:18)
[2024-08-22] MEDS: hydrALAZINE HCl 25 MG TABLET PO ×2 (08:18→19:49)
[2024-08-22] MEDS: Lidocaine 4 % Patch ADH..PATCH 1 PATCH TRANSDERMA (08:19)
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
--- NOTE | 2024-08-22 10:30 | MHC.CM.PN ---
CM spoke w/ HCP Cuate. Cuate reports he is checking patient's mail daily and is still waiting for bank statements. Will bring to CM when received. Additionally, he is still working on identifying a person/agency to clean the home. [facility] has provided some referrals he is waiting to hear back from. He spoke w/ the water department and will have the water turned back on before cleaning starts.
[2024-08-22 16:10] VITALS: BP 169/85; PULSE 63; RESP 18; TEMP 37; O2SAT 95
[2024-08-22 19:06] VITALS: BP 122/77; PULSE 60; RESP 18; TEMP 36.6; O2SAT 93
[2024-08-22 19:48] VITALS: BP 122/77; PULSE 60
[2024-08-22 19:49] VITALS: BP 122/77
[2024-08-22] MEDS: Melatonin 3 MG TABLET 6 MG PO (22:54)
[2024-08-23 04:00] VITALS: BP 133/74; PULSE 56; RESP 17; TEMP 36.2; O2SAT 93
[2024-08-23] MEDS: oxyCODONE HCl Immed Release 15 MG TABLET PO ×3 (04:53→20:53)
[2024-08-23] MEDS: Omeprazole 20 MG CAPSULE.DR PO (06:07)
[2024-08-23 07:52] VITALS: BP 125/73; PULSE 51; RESP 12; TEMP 36; O2SAT 92
[2024-08-23] MEDS: Sucralfate 1 GM TABLET PO ×4 (08:36→20:53)
[2024-08-23] MEDS: Multivitamin TABLET 1 TAB PO (08:36)
[2024-08-23] MEDS: Isosorbide Mononitrate 60 MG TAB.ER.24H PO (08:36)
[2024-08-23] MEDS: Atorvastatin Calcium 40 MG TABLET PO (08:36)
[2024-08-23] MEDS: allopurinoL 100 MG TABLET PO (08:36)
[2024-08-23] MEDS: Apixaban 5 MG TABLET PO ×2 (08:36→20:53)
[2024-08-23] MEDS: amLODIPine Besylate 10 MG TABLET PO (08:37)
[2024-08-23] MEDS: Lidocaine 4 % Patch ADH..PATCH 1 PATCH TRANSDERMA (08:37)
[2024-08-23] MEDS: Cholecalciferol (Vitamin D3) 25 MCG TABLET PO (08:37)
[2024-08-23] MEDS: Gabapentin 100 MG CAPSULE PO ×3 (08:37→20:53)
[2024-08-23] MEDS: Sertraline HCL 100 MG TABLET PO (08:37)
[2024-08-23] MEDS: hydrALAZINE HCl 25 MG TABLET PO ×2 (08:37→20:53)
[2024-08-23 15:42] VITALS: BP 127/69; PULSE 62; RESP 16; TEMP 36.4; O2SAT 94
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
[2024-08-23 19:07] VITALS: BP 128/70; PULSE 72; RESP 18; TEMP 37.2; O2SAT 93
[2024-08-23] MEDS: carvediloL 6.25 MG TABLET PO (20:53)
[2024-08-24] MEDS: oxyCODONE HCl Immed Release 15 MG TABLET PO ×4 (02:59→21:17)
[2024-08-24 03:00] VITALS: BP 140/72; PULSE 60; RESP 16; TEMP 37.2; O2SAT 95
[2024-08-24] MEDS: Melatonin 3 MG TABLET 6 MG PO (03:01)
[2024-08-24] MEDS: Omeprazole 20 MG CAPSULE.DR PO (06:29)
[2024-08-24] MEDS: Sucralfate 1 GM TABLET PO ×4 (06:29→21:18)
[2024-08-24 07:37] VITALS: BP 121/69; PULSE 54; RESP 18; TEMP 36.3; O2SAT 93
[2024-08-24 07:39] LABS: Anion Gap 13 (12-20); Blood Urea Nitrogen 31 mg/dL (9-16); Carbon Dioxide 25 mmol/L (22-29); Chloride 105 mmol/L (96-108); Creatinine Clr Calc Pharmacy 41.6; Estimated Glomerular Filt Rate 37; Glucose Random 97 mg/dL (60-115); Potassium 4.4 mmol/L (3.3-5.1); Sodium 139 mmol/L (135-145)
[2024-08-24] MEDS: Atorvastatin Calcium 40 MG TABLET PO (08:52)
[2024-08-24] MEDS: amLODIPine Besylate 10 MG TABLET PO (08:53)
[2024-08-24] MEDS: Sertraline HCL 100 MG TABLET PO (08:53)
[2024-08-24] MEDS: Apixaban 5 MG TABLET PO ×2 (08:53→21:18)
[2024-08-24] MEDS: hydrALAZINE HCl 25 MG TABLET PO ×2 (08:53→21:18)
[2024-08-24] MEDS: Isosorbide Mononitrate 60 MG TAB.ER.24H PO (08:53)
[2024-08-24] MEDS: carvediloL 6.25 MG TABLET PO ×2 (08:53→21:17)
[2024-08-24] MEDS: allopurinoL 100 MG TABLET PO (08:53)
[2024-08-24] MEDS: Cholecalciferol (Vitamin D3) 25 MCG TABLET PO (08:53)
[2024-08-24] MEDS: Gabapentin 100 MG CAPSULE PO ×3 (08:53→21:17)
[2024-08-24] MEDS: Multivitamin TABLET 1 TAB PO (08:53)
[2024-08-24] MEDS: Lidocaine 4 % Patch ADH..PATCH 1 PATCH TRANSDERMA (08:54)
--- NOTE | 2024-08-24 11:04 | MHC.CM.PN ---
Patient continues to await safe dc plan. Home w/ services vs LTC. See notes. CM will continue to follow.
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
[2024-08-24 15:18] VITALS: BP 112/67; PULSE 59; RESP 16; TEMP 36.4; O2SAT 95
[2024-08-24 15:19] LABS: Hematocrit 35.3 % (42.0-52.0); Hemoglobin 11.6 g/dl (14.0-18.0); Mean Corpuscular HGB Conc 32.9 g/dl (31.0-36.0); Mean Corpuscular Volume 82.3 fL (80.0-98.0); Mean Platelet Volume 9.3 fL (9.4-12.4); Platelet Count 111 X10*3/uL (160-400); Red Blood Count 4.29 X10*6/uL (4.60-5.80); Red Cell Distribution Width 17.2 % (11.0-16.0); White Blood Count 5.2 X10*3/uL (4.8-10.8)
[2024-08-24 19:24] VITALS: BP 138/76; PULSE 63; RESP 18; TEMP 36.3; O2SAT 95
[2024-08-25] VITALS (7 sets, daily range): BP systolic 119–136; BP diastolic 58–69; PULSE 57–68; RESP 16–18; TEMP 36.2–37; O2SAT 92–95
[2024-08-25] MEDS: Sucralfate 1 GM TABLET PO ×4 (06:28→20:41)
[2024-08-25] MEDS: Omeprazole 20 MG CAPSULE.DR PO (06:28)
[2024-08-25] MEDS: oxyCODONE HCl Immed Release 15 MG TABLET PO ×3 (06:32→20:41)
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
[2024-08-25] MEDS: Atorvastatin Calcium 40 MG TABLET PO (10:42)
[2024-08-25] MEDS: Isosorbide Mononitrate 60 MG TAB.ER.24H PO (10:42)
[2024-08-25] MEDS: Sertraline HCL 100 MG TABLET PO (10:42)
[2024-08-25] MEDS: Multivitamin TABLET 1 TAB PO (10:42)
[2024-08-25] MEDS: Apixaban 5 MG TABLET PO ×2 (10:43→20:41)
[2024-08-25] MEDS: Cholecalciferol (Vitamin D3) 25 MCG TABLET PO (10:43)
[2024-08-25] MEDS: hydrALAZINE HCl 25 MG TABLET PO ×2 (10:43→20:41)
[2024-08-25] MEDS: carvediloL 6.25 MG TABLET PO ×2 (10:43→20:42)
[2024-08-25] MEDS: Gabapentin 100 MG CAPSULE PO ×3 (10:43→20:42)
[2024-08-25] MEDS: allopurinoL 100 MG TABLET PO (10:43)
[2024-08-25] MEDS: amLODIPine Besylate 10 MG TABLET PO (10:43)
[2024-08-25] MEDS: Lidocaine 4 % Patch ADH..PATCH 1 PATCH TRANSDERMA (10:46)
[2024-08-26] MEDS: oxyCODONE HCl Immed Release 15 MG TABLET PO ×3 (03:13→18:27)
[2024-08-26 03:31] VITALS: BP 120/62; PULSE 65; RESP 18; TEMP 36.8; O2SAT 97
[2024-08-26] MEDS: Omeprazole 20 MG CAPSULE.DR PO (06:28)
[2024-08-26 07:39] VITALS: BP 125/68; PULSE 50; RESP 14; TEMP 36.2; O2SAT 93
[2024-08-26] MEDS: Sucralfate 1 GM TABLET PO ×4 (07:55→21:25)
[2024-08-26] MEDS: Lidocaine 4 % Patch ADH..PATCH 1 PATCH TRANSDERMA (07:59)
[2024-08-26] MEDS: Apixaban 5 MG TABLET PO ×2 (08:00→21:25)
[2024-08-26] MEDS: hydrALAZINE HCl 25 MG TABLET PO ×2 (08:00→21:25)
[2024-08-26] MEDS: Multivitamin TABLET 1 TAB PO (08:00)
[2024-08-26] MEDS: Atorvastatin Calcium 40 MG TABLET PO (08:00)
[2024-08-26] MEDS: Sertraline HCL 100 MG TABLET PO (08:00)
[2024-08-26] MEDS: amLODIPine Besylate 10 MG TABLET PO (08:01)
[2024-08-26] MEDS: Cholecalciferol (Vitamin D3) 25 MCG TABLET PO (08:02)
[2024-08-26] MEDS: Isosorbide Mononitrate 60 MG TAB.ER.24H PO (08:02)
[2024-08-26] MEDS: allopurinoL 100 MG TABLET PO (08:03)
[2024-08-26] MEDS: Gabapentin 100 MG CAPSULE PO ×3 (08:03→21:26)
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
[2024-08-26 15:27] VITALS: BP 130/83; PULSE 66; RESP 18; TEMP 36.6; O2SAT 95
[2024-08-26 19:37] VITALS: BP 112/58; PULSE 63; RESP 18; TEMP 36.7; O2SAT 97
[2024-08-26] MEDS: carvediloL 6.25 MG TABLET PO (21:25)
[2024-08-27] MEDS: oxyCODONE HCl Immed Release 15 MG TABLET PO ×4 (00:11→19:53)
[2024-08-27] MEDS: Melatonin 3 MG TABLET 6 MG PO (00:11)
[2024-08-27 03:02] VITALS: BP 115/61; PULSE 54; RESP 18; TEMP 36.4; O2SAT 95
[2024-08-27] MEDS: Omeprazole 20 MG CAPSULE.DR PO (05:58)
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
[2024-08-27 07:22] VITALS: BP 144/76; PULSE 58; RESP 16; TEMP 36.3; O2SAT 95
[2024-08-27] MEDS: amLODIPine Besylate 10 MG TABLET PO (08:14)
[2024-08-27] MEDS: Sucralfate 1 GM TABLET PO ×4 (08:15→19:53)
[2024-08-27] MEDS: Atorvastatin Calcium 40 MG TABLET PO (08:15)
[2024-08-27] MEDS: Apixaban 5 MG TABLET PO ×2 (08:15→19:54)
[2024-08-27] MEDS: Gabapentin 100 MG CAPSULE PO ×3 (08:15→19:53)
[2024-08-27] MEDS: Cholecalciferol (Vitamin D3) 25 MCG TABLET PO (08:15)
[2024-08-27] MEDS: Isosorbide Mononitrate 60 MG TAB.ER.24H PO (08:15)
[2024-08-27] MEDS: Sertraline HCL 100 MG TABLET PO (08:15)
[2024-08-27] MEDS: hydrALAZINE HCl 25 MG TABLET PO ×2 (08:15→19:53)
[2024-08-27] MEDS: Multivitamin TABLET 1 TAB PO (08:15)
[2024-08-27] MEDS: allopurinoL 100 MG TABLET PO (08:15)
[2024-08-27] MEDS: Lidocaine 4 % Patch ADH..PATCH 1 PATCH TRANSDERMA ×2 (08:17→12:39)
--- NOTE | 2024-08-27 11:10 | MHC.CM.PN ---
Follow up discussion with patient and HCP [facility] re: dc plan. Reviewed that STR was not recommended by PT. Continue to work on resolving issues w/ home vs [facility] for LTC. CM offered to assist patient w/ phone calls to request documents required by [facility]. Patient declined. CM requested that HCP come to [facility] to assist. States he will try. They are aware documents are due to [facility] by first week of September. Patient prefers home w/ [facility] services, but [facility] has not been able to find a cleaning agency in patient's budget. Patient reports his budget is ~$500, but [employer] are quoting $1-2k. HCP reports patient has $4,900 in [employer]. After discussion, patient agrees to pay quoted amount and HCP will work on getting house cleaned [place]. Will also need to pay ~$200 to get water turned on. Case reviewed w/ CM director. HINN-12 delivered to patient. CM will continue to follow.
[2024-08-27 15:10] VITALS: PULSE 66; RESP 18; TEMP 36.9; O2SAT 96
[2024-08-27 19:08] VITALS: BP 158/79; PULSE 67; RESP 18; TEMP 36.5; O2SAT 96
[2024-08-27] MEDS: carvediloL 6.25 MG TABLET PO (19:54)
[2024-08-28 03:13] VITALS: BP 123/66; PULSE 51; RESP 16; TEMP 36; O2SAT 94
[2024-08-28] MEDS: oxyCODONE HCl Immed Release 15 MG TABLET PO ×4 (03:34→23:54)
[2024-08-28] MEDS: Omeprazole 20 MG CAPSULE.DR PO (05:43)
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
[2024-08-28 07:30] VITALS: BP 121/74; PULSE 52; RESP 16; TEMP 36.5; O2SAT 93
[2024-08-28] MEDS: Gabapentin 100 MG CAPSULE PO ×3 (09:13→21:37)
[2024-08-28] MEDS: Isosorbide Mononitrate 60 MG TAB.ER.24H PO (09:13)
[2024-08-28] MEDS: Sucralfate 1 GM TABLET PO ×4 (09:13→21:37)
[2024-08-28] MEDS: allopurinoL 100 MG TABLET PO (09:13)
[2024-08-28] MEDS: Multivitamin TABLET 1 TAB PO (09:13)
[2024-08-28] MEDS: amLODIPine Besylate 10 MG TABLET PO (09:14)
[2024-08-28] MEDS: Apixaban 5 MG TABLET PO ×2 (09:14→21:37)
[2024-08-28] MEDS: Sertraline HCL 100 MG TABLET PO (09:14)
[2024-08-28] MEDS: carvediloL 6.25 MG TABLET PO ×2 (09:14→21:37)
[2024-08-28] MEDS: hydrALAZINE HCl 25 MG TABLET PO ×2 (09:14→21:37)
[2024-08-28] MEDS: Atorvastatin Calcium 40 MG TABLET PO (09:14)
[2024-08-28] MEDS: Cholecalciferol (Vitamin D3) 25 MCG TABLET PO (09:14)
[2024-08-28] MEDS: Lidocaine 4 % Patch ADH..PATCH 1 PATCH TRANSDERMA ×2 (09:18→09:19)
[2024-08-28 15:15] VITALS: BP 105/57; PULSE 65; RESP 16; TEMP 36.4; O2SAT 94
[2024-08-28 19:33] VITALS: BP 129/73; PULSE 57; RESP 18; TEMP 37; O2SAT 96
[2024-08-29 03:50] VITALS: BP 115/61; PULSE 51; RESP 18; TEMP 36.3; O2SAT 95
[2024-08-29] MEDS: Omeprazole 20 MG CAPSULE.DR PO (05:09)
[2024-08-29 06:49] VITALS: BP 130/72; PULSE 58; RESP 16; TEMP 36.6; O2SAT 96
[2024-08-29] MEDS: Apixaban 5 MG TABLET PO ×2 (07:26→20:16)
[2024-08-29] MEDS: oxyCODONE HCl Immed Release 15 MG TABLET PO ×3 (07:26→21:59)
[2024-08-29] MEDS: carvediloL 6.25 MG TABLET PO ×2 (07:26→20:16)
[2024-08-29] MEDS: Sertraline HCL 100 MG TABLET PO (07:26)
[2024-08-29] MEDS: Lidocaine 4 % Patch ADH..PATCH 1 PATCH TRANSDERMA ×2 (07:27)
[2024-08-29] MEDS: Atorvastatin Calcium 40 MG TABLET PO (07:27)
[2024-08-29] MEDS: Cholecalciferol (Vitamin D3) 25 MCG TABLET PO (07:27)
[2024-08-29] MEDS: amLODIPine Besylate 10 MG TABLET PO (07:27)
[2024-08-29] MEDS: hydrALAZINE HCl 25 MG TABLET PO ×2 (07:27→20:16)
[2024-08-29] MEDS: allopurinoL 100 MG TABLET PO (07:27)
[2024-08-29] MEDS: Sucralfate 1 GM TABLET PO ×4 (07:27→20:16)
[2024-08-29] MEDS: Multivitamin TABLET 1 TAB PO (07:27)
[2024-08-29] MEDS: Isosorbide Mononitrate 60 MG TAB.ER.24H PO (07:27)
[2024-08-29] MEDS: Gabapentin 100 MG CAPSULE PO ×3 (07:27→20:16)
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
[2024-08-29 15:13] VITALS: BP 143/85; PULSE 56; RESP 17; TEMP 36.5; O2SAT 93
[2024-08-29 19:19] VITALS: BP 181/93; PULSE 67; RESP 18; TEMP 36.4; O2SAT 97
[2024-08-29 22:34] VITALS: BP 152/78; PULSE 73
[2024-08-30 03:19] VITALS: BP 124/80; PULSE 54; RESP 18; TEMP 36.3; O2SAT 95
[2024-08-30] MEDS: Omeprazole 20 MG CAPSULE.DR PO (06:07)
[2024-08-30] MEDS: oxyCODONE HCl Immed Release 15 MG TABLET PO ×3 (06:07→18:38)
[2024-08-30 06:53] VITALS: BP 130/72; PULSE 58; RESP 16; TEMP 36.2; O2SAT 96
[2024-08-30 07:13] VITALS: BP 130/72; PULSE 58; O2SAT 96
[2024-08-30] MEDS: allopurinoL 100 MG TABLET PO (07:58)
[2024-08-30] MEDS: Atorvastatin Calcium 40 MG TABLET PO (07:58)
[2024-08-30] MEDS: amLODIPine Besylate 10 MG TABLET PO (07:58)
[2024-08-30] MEDS: hydrALAZINE HCl 25 MG TABLET PO ×2 (07:58→21:56)
[2024-08-30] MEDS: carvediloL 6.25 MG TABLET PO ×2 (07:58→21:56)
[2024-08-30] MEDS: Gabapentin 100 MG CAPSULE PO ×3 (07:59→21:56)
[2024-08-30] MEDS: Multivitamin TABLET 1 TAB PO (07:59)
[2024-08-30] MEDS: Isosorbide Mononitrate 60 MG TAB.ER.24H PO (07:59)
[2024-08-30] MEDS: Sucralfate 1 GM TABLET PO ×4 (07:59→21:57)
[2024-08-30] MEDS: Sertraline HCL 100 MG TABLET PO (07:59)
[2024-08-30] MEDS: Apixaban 5 MG TABLET PO ×2 (07:59→21:56)
[2024-08-30] MEDS: Cholecalciferol (Vitamin D3) 25 MCG TABLET PO (07:59)
[2024-08-30] MEDS: Lidocaine 4 % Patch ADH..PATCH 1 PATCH TRANSDERMA ×2 (08:00)
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
[2024-08-30 15:15] VITALS: BP 117/70; PULSE 68; RESP 18; TEMP 36.1; O2SAT 96
[2024-08-30 19:48] VITALS: BP 123/68; PULSE 58; RESP 18; TEMP 36.6; O2SAT 97
[2024-08-30 21:56] VITALS: BP 130/65; PULSE 65
[2024-08-31] MEDS: oxyCODONE HCl Immed Release 15 MG TABLET PO ×4 (00:30→20:12)
[2024-08-31 03:32] VITALS: BP 119/68; PULSE 59; RESP 18; TEMP 36.6; O2SAT 92
[2024-08-31] MEDS: Omeprazole 20 MG CAPSULE.DR PO (05:35)
[2024-08-31 06:59] VITALS: BP 142/66; PULSE 58; RESP 17; TEMP 36.6; O2SAT 94
[2024-08-31] MEDS: Isosorbide Mononitrate 60 MG TAB.ER.24H PO (07:15)
[2024-08-31] MEDS: Sucralfate 1 GM TABLET PO ×4 (07:15→20:08)
[2024-08-31] MEDS: Atorvastatin Calcium 40 MG TABLET PO (07:16)
[2024-08-31] MEDS: Multivitamin TABLET 1 TAB PO (07:16)
[2024-08-31] MEDS: carvediloL 6.25 MG TABLET PO ×2 (07:16→20:08)
[2024-08-31] MEDS: Sertraline HCL 100 MG TABLET PO (07:16)
[2024-08-31] MEDS: Cholecalciferol (Vitamin D3) 25 MCG TABLET PO (07:16)
[2024-08-31] MEDS: allopurinoL 100 MG TABLET PO (07:16)
[2024-08-31] MEDS: hydrALAZINE HCl 25 MG TABLET PO ×2 (07:16→20:07)
[2024-08-31] MEDS: Apixaban 5 MG TABLET PO ×2 (07:16→20:08)
[2024-08-31] MEDS: Gabapentin 100 MG CAPSULE PO ×3 (07:16→20:08)
[2024-08-31] MEDS: amLODIPine Besylate 10 MG TABLET PO (07:16)
[2024-08-31] MEDS: Lidocaine 4 % Patch ADH..PATCH 1 PATCH TRANSDERMA ×2 (07:21)
[2024-08-31 07:23] LABS: Hematocrit 34.9 % (42.0-52.0); Hemoglobin 11.3 g/dl (14.0-18.0); Mean Corpuscular HGB Conc 32.4 g/dl (31.0-36.0); Mean Corpuscular Hemoglobin 27.4 pg (27.0-33.0); Mean Corpuscular Volume 84.5 fL (80.0-98.0); Mean Platelet Volume 10.4 fL (9.4-12.4); Platelet Count 121 X10*3/uL (160-400); Red Blood Count 4.13 X10*6/uL (4.60-5.80); Red Cell Distribution Width 17.3 % (11.0-16.0); White Blood Count 4.5 X10*3/uL (4.8-10.8)
[2024-08-31 07:37] LABS: Anion Gap 14 (12-20); Blood Urea Nitrogen 36 mg/dL (9-16); Calcium 9.2 mg/dL (8.4-10.2); Carbon Dioxide 23 mmol/L (22-29); Chloride 106 mmol/L (96-108); Creatinine Clr Calc Pharmacy 44.1; Estimated Glomerular Filt Rate 40; Glucose Random 116 mg/dL (60-115); Potassium 4.3 mmol/L (3.3-5.1); Sodium 139 mmol/L (135-145)
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
--- NOTE | 2024-08-31 15:02 | MHC.CM.PN ---
PT UNABLE TO RETURN HOME AT THIS TIME DUE TO THE CONDITION OF HIS HOME HCP WORKING ON GETTING HOME CLEANED HCP ALSO WORKING ON GETTING DOCUMENTS FOR MH APPLICATION FOR POTENTIAL LTC PLACEMENT VS HOME SERVICES
[2024-08-31 15:15] VITALS: BP 138/82; PULSE 64; RESP 20; TEMP 36.6; O2SAT 96
[2024-08-31 19:17] VITALS: BP 123/67; PULSE 56; RESP 18; TEMP 36.4; O2SAT 96
[2024-08-31 20:07] VITALS: BP 130/60
[2024-08-31 20:08] VITALS: BP 130/60; PULSE 60
[2024-09-01] MEDS: oxyCODONE HCl Immed Release 15 MG TABLET PO ×4 (02:38→22:16)
[2024-09-01 03:42] VITALS: BP 109/60; PULSE 55; RESP 16; TEMP 36.2; O2SAT 93
[2024-09-01] MEDS: Omeprazole 20 MG CAPSULE.DR PO (05:46)
[2024-09-01 07:15] VITALS: BP 120/59; PULSE 86; RESP 16; TEMP 36.2; O2SAT 96
[2024-09-01] MEDS: carvediloL 6.25 MG TABLET PO ×2 (09:05→19:58)
[2024-09-01] MEDS: Isosorbide Mononitrate 60 MG TAB.ER.24H PO (09:05)
[2024-09-01] MEDS: Multivitamin TABLET 1 TAB PO (09:06)
[2024-09-01] MEDS: Gabapentin 100 MG CAPSULE PO ×3 (09:06→19:58)
[2024-09-01] MEDS: Apixaban 5 MG TABLET PO ×2 (09:06→19:58)
[2024-09-01] MEDS: Atorvastatin Calcium 40 MG TABLET PO (09:06)
[2024-09-01] MEDS: Sucralfate 1 GM TABLET PO ×4 (09:06→19:58)
[2024-09-01] MEDS: amLODIPine Besylate 10 MG TABLET PO (09:06)
[2024-09-01] MEDS: Lidocaine 4 % Patch ADH..PATCH 1 PATCH TRANSDERMA ×3 (09:06→15:54)
[2024-09-01] MEDS: Cholecalciferol (Vitamin D3) 25 MCG TABLET PO (09:06)
[2024-09-01] MEDS: hydrALAZINE HCl 25 MG TABLET PO ×2 (09:06→19:58)
[2024-09-01] MEDS: allopurinoL 100 MG TABLET PO (09:06)
[2024-09-01] MEDS: Sertraline HCL 100 MG TABLET PO (09:06)
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
[2024-09-01 15:47] VITALS: BP 126/60; PULSE 56; RESP 16; TEMP 36.3; O2SAT 93
[2024-09-01 19:33] VITALS: BP 129/67; PULSE 60; RESP 18; TEMP 36.3; O2SAT 93
[2024-09-01 19:58] VITALS: BP 129/67; PULSE 62
[2024-09-01 23:37] VITALS: BP 120/62; PULSE 64; RESP 18; TEMP 36.4; O2SAT 94
[2024-09-02] MEDS: Omeprazole 20 MG CAPSULE.DR PO (05:45)
[2024-09-02] MEDS: oxyCODONE HCl Immed Release 15 MG TABLET PO ×3 (05:50→20:28)
[2024-09-02 07:30] VITALS: BP 140/60; PULSE 47; RESP 16; TEMP 36.6; O2SAT 93
[2024-09-02] MEDS: amLODIPine Besylate 10 MG TABLET PO (09:38)
[2024-09-02] MEDS: Isosorbide Mononitrate 60 MG TAB.ER.24H PO (09:38)
[2024-09-02] MEDS: Apixaban 5 MG TABLET PO ×2 (09:39→20:28)
[2024-09-02] MEDS: Gabapentin 100 MG CAPSULE PO ×3 (09:39→20:28)
[2024-09-02] MEDS: hydrALAZINE HCl 25 MG TABLET PO ×2 (09:39→20:27)
[2024-09-02] MEDS: Atorvastatin Calcium 40 MG TABLET PO (09:39)
[2024-09-02] MEDS: Cholecalciferol (Vitamin D3) 25 MCG TABLET PO (09:39)
[2024-09-02] MEDS: Sucralfate 1 GM TABLET PO ×4 (09:39→20:28)
[2024-09-02] MEDS: allopurinoL 100 MG TABLET PO (09:39)
[2024-09-02] MEDS: Lidocaine 4 % Patch ADH..PATCH 1 PATCH TRANSDERMA ×2 (09:39→09:40)
[2024-09-02] MEDS: Sertraline HCL 100 MG TABLET PO (09:39)
[2024-09-02] MEDS: Multivitamin TABLET 1 TAB PO (09:39)
[2024-09-02 09:48] VITALS: PULSE 56
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
[2024-09-02 16:09] VITALS: BP 145/78; PULSE 65; RESP 18; TEMP 36.2; O2SAT 95
[2024-09-02] MEDS: carvediloL 6.25 MG TABLET PO (20:28)
[2024-09-02 23:51] VITALS: BP 138/70; PULSE 60; RESP 17; TEMP 36.1; O2SAT 95
[2024-09-03] MEDS: oxyCODONE HCl Immed Release 15 MG TABLET PO ×5 (01:59→20:36)
[2024-09-03 07:21] VITALS: BP 143/74; PULSE 56; RESP 12; TEMP 36.2; O2SAT 92
[2024-09-03] MEDS: Sucralfate 1 GM TABLET PO ×4 (07:39→20:35)
[2024-09-03] MEDS: Multivitamin TABLET 1 TAB PO (07:40)
[2024-09-03] MEDS: Isosorbide Mononitrate 60 MG TAB.ER.24H PO (07:40)
[2024-09-03] MEDS: Atorvastatin Calcium 40 MG TABLET PO (07:40)
[2024-09-03] MEDS: Lidocaine 4 % Patch ADH..PATCH 1 PATCH TRANSDERMA ×2 (07:40)
[2024-09-03] MEDS: Gabapentin 100 MG CAPSULE PO ×3 (07:41→20:36)
[2024-09-03] MEDS: allopurinoL 100 MG TABLET PO (07:41)
[2024-09-03] MEDS: Sertraline HCL 100 MG TABLET PO (07:41)
[2024-09-03] MEDS: hydrALAZINE HCl 25 MG TABLET PO ×2 (07:41→20:36)
[2024-09-03] MEDS: Cholecalciferol (Vitamin D3) 25 MCG TABLET PO (07:41)
[2024-09-03] MEDS: Apixaban 5 MG TABLET PO ×2 (07:41→20:36)
[2024-09-03] MEDS: amLODIPine Besylate 10 MG TABLET PO (07:41)
[2024-09-03] MEDS: carvediloL 6.25 MG TABLET PO (07:41)
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
--- NOTE | 2024-09-03 15:47 | MHC.CM.PN ---
CM spoke w/ HCP Cuate. Reports he rec'd [employer] bank statements and dropped them off to financial services on 08/31. He is still waiting for life insurance documentation. Rec'd a quote from an agency specializing in deep cleaning, ~7-10k. Reports patient cannot afford that. Cuate plans to start cleaning the home himself.
[2024-09-03 15:51] VITALS: BP 112/69; PULSE 56; RESP 16; TEMP 36.6; O2SAT 93
[2024-09-03 20:36] VITALS: BP 112/69
[2024-09-03 20:38] VITALS: BP 112/69; PULSE 56
[2024-09-03 23:17] VITALS: BP 158/67; PULSE 69; RESP 17; TEMP 36.7; O2SAT 95
[2024-09-04] MEDS: oxyCODONE HCl Immed Release 15 MG TABLET PO ×6 (01:13→22:07)
[2024-09-04] MEDS: Omeprazole 20 MG CAPSULE.DR PO (05:35)
[2024-09-04] MEDS: Lidocaine 4 % Patch ADH..PATCH 1 PATCH TRANSDERMA ×2 (06:32→09:25)
[2024-09-04 07:21] VITALS: BP 120/70; PULSE 56; RESP 18; TEMP 36.2; O2SAT 92
[2024-09-04] MEDS: Apixaban 5 MG TABLET PO ×2 (09:23→20:48)
[2024-09-04] MEDS: Gabapentin 100 MG CAPSULE PO ×3 (09:23→20:48)
[2024-09-04] MEDS: hydrALAZINE HCl 25 MG TABLET PO ×2 (09:23→20:48)
[2024-09-04] MEDS: Isosorbide Mononitrate 60 MG TAB.ER.24H PO (09:23)
[2024-09-04] MEDS: Cholecalciferol (Vitamin D3) 25 MCG TABLET PO (09:24)
[2024-09-04] MEDS: amLODIPine Besylate 10 MG TABLET PO (09:24)
[2024-09-04] MEDS: allopurinoL 100 MG TABLET PO (09:24)
[2024-09-04] MEDS: Sertraline HCL 100 MG TABLET PO (09:24)
[2024-09-04] MEDS: Sucralfate 1 GM TABLET PO ×4 (09:24→20:48)
[2024-09-04] MEDS: Atorvastatin Calcium 40 MG TABLET PO (09:24)
[2024-09-04] MEDS: Multivitamin TABLET 1 TAB PO (09:24)
[2024-09-04] MEDS: carvediloL 6.25 MG TABLET PO ×2 (09:24→20:49)
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
[2024-09-04 15:17] VITALS: BP 116/71; PULSE 64; RESP 16; TEMP 36.4; O2SAT 93
[2024-09-04 20:48] VITALS: BP 116/71
[2024-09-04 20:49] VITALS: BP 116/71; PULSE 64
[2024-09-04 23:59] VITALS: BP 127/70; PULSE 65; RESP 16; TEMP 37; O2SAT 93
[2024-09-05] MEDS: oxyCODONE HCl Immed Release 15 MG TABLET PO ×4 (04:12→20:13)
[2024-09-05] MEDS: Omeprazole 20 MG CAPSULE.DR PO (05:25)
[2024-09-05 07:24] VITALS: BP 117/70; PULSE 58; RESP 16; TEMP 36.2; O2SAT 92
[2024-09-05] MEDS: carvediloL 6.25 MG TABLET PO ×2 (08:10→20:13)
[2024-09-05] MEDS: Sucralfate 1 GM TABLET PO ×4 (08:10→20:12)
[2024-09-05] MEDS: Multivitamin TABLET 1 TAB PO (08:10)
[2024-09-05] MEDS: Atorvastatin Calcium 40 MG TABLET PO (08:10)
[2024-09-05] MEDS: Sertraline HCL 100 MG TABLET PO (08:10)
[2024-09-05] MEDS: allopurinoL 100 MG TABLET PO (08:10)
[2024-09-05] MEDS: Isosorbide Mononitrate 60 MG TAB.ER.24H PO (08:10)
[2024-09-05] MEDS: Cholecalciferol (Vitamin D3) 25 MCG TABLET PO (08:10)
[2024-09-05] MEDS: Gabapentin 100 MG CAPSULE PO ×3 (08:10→20:12)
[2024-09-05] MEDS: Apixaban 5 MG TABLET PO ×2 (08:10→20:14)
[2024-09-05] MEDS: amLODIPine Besylate 10 MG TABLET PO (08:11)
[2024-09-05] MEDS: hydrALAZINE HCl 25 MG TABLET PO ×2 (08:11→20:12)
[2024-09-05] MEDS: Lidocaine 4 % Patch ADH..PATCH 1 PATCH TRANSDERMA ×2 (08:11)
--- NOTE | 2024-09-05 12:10 | MHC.CM.PN ---
EMR REVIEWED. PT REMAINS MEDICALLY CLEARED. CM SPOKE WITH COUSIN/HCP LAUREN. HE IS MEETING WITH ANOTHER [employer] THERE ARE BROKEN PIPES THAT NEED TO BE ADDRESSED. CM HAS STARTED REFERRING TO SNF'S THAT MAY ACCEPT [facility] PENDING BANK STATEMENTS ARE NOW AVAILABLE. CM WILL CONTINUE TO FOLLOW.
[2024-09-05 15:12] VITALS: BP 136/63; PULSE 54; RESP 17; TEMP 36.6; O2SAT 92
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
[2024-09-05 20:12] VITALS: BP 136/63
[2024-09-05 20:13] VITALS: BP 136/63; PULSE 54
[2024-09-05 23:02] VITALS: BP 124/67; PULSE 61; RESP 18; TEMP 36.9; O2SAT 93
[2024-09-06] MEDS: oxyCODONE HCl Immed Release 15 MG TABLET PO ×5 (03:05→21:26)
[2024-09-06] MEDS: Omeprazole 20 MG CAPSULE.DR PO (06:21)
[2024-09-06 07:45] VITALS: BP 124/58; PULSE 55; RESP 16; TEMP 36.2; O2SAT 94
[2024-09-06] MEDS: Isosorbide Mononitrate 60 MG TAB.ER.24H PO (08:02)
[2024-09-06] MEDS: Sertraline HCL 100 MG TABLET PO (08:02)
[2024-09-06] MEDS: Apixaban 5 MG TABLET PO ×2 (08:02→20:34)
[2024-09-06] MEDS: Multivitamin TABLET 1 TAB PO (08:02)
[2024-09-06] MEDS: hydrALAZINE HCl 25 MG TABLET PO ×2 (08:03→20:34)
[2024-09-06] MEDS: Gabapentin 100 MG CAPSULE PO ×3 (08:03→20:31)
[2024-09-06] MEDS: amLODIPine Besylate 10 MG TABLET PO (08:03)
[2024-09-06] MEDS: allopurinoL 100 MG TABLET PO (08:03)
[2024-09-06] MEDS: Atorvastatin Calcium 40 MG TABLET PO (08:03)
[2024-09-06] MEDS: Sucralfate 1 GM TABLET PO ×4 (08:04→20:32)
[2024-09-06] MEDS: Cholecalciferol (Vitamin D3) 25 MCG TABLET PO (08:04)
[2024-09-06] MEDS: Lidocaine 4 % Patch ADH..PATCH 1 PATCH TRANSDERMA ×2 (08:04→08:05)
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
[2024-09-06] MEDS: 0.9 % Sodium Chloride Flush 3 ML SYRINGE IVFLUSH (15:14)
[2024-09-06 15:52] VITALS: BP 136/65; PULSE 66; RESP 18; TEMP 36.1; O2SAT 93
[2024-09-06 20:32] VITALS: BP 145/62; PULSE 76
[2024-09-06] MEDS: carvediloL 6.25 MG TABLET PO (20:32)
[2024-09-06 20:34] VITALS: BP 145/62
[2024-09-06 23:39] VITALS: BP 119/58; PULSE 53; RESP 18; TEMP 36.4; O2SAT 94
[2024-09-07] MEDS: oxyCODONE HCl Immed Release 15 MG TABLET PO ×5 (01:51→20:58)
[2024-09-07] MEDS: Omeprazole 20 MG CAPSULE.DR PO (05:45)
[2024-09-07 07:45] VITALS: BP 128/73; PULSE 53; RESP 16; TEMP 36.1; O2SAT 93
[2024-09-07] MEDS: allopurinoL 100 MG TABLET PO (08:27)
[2024-09-07] MEDS: Sucralfate 1 GM TABLET PO ×4 (08:27→20:56)
[2024-09-07] MEDS: Apixaban 5 MG TABLET PO ×2 (08:27→20:56)
[2024-09-07] MEDS: Cholecalciferol (Vitamin D3) 25 MCG TABLET PO (08:27)
[2024-09-07] MEDS: Multivitamin TABLET 1 TAB PO (08:27)
[2024-09-07] MEDS: Gabapentin 100 MG CAPSULE PO ×3 (08:27→20:56)
[2024-09-07] MEDS: Sertraline HCL 100 MG TABLET PO (08:27)
[2024-09-07] MEDS: hydrALAZINE HCl 25 MG TABLET PO ×2 (08:27→20:58)
[2024-09-07] MEDS: carvediloL 6.25 MG TABLET PO ×2 (08:27→20:58)
[2024-09-07] MEDS: Isosorbide Mononitrate 60 MG TAB.ER.24H PO (08:27)
[2024-09-07] MEDS: amLODIPine Besylate 10 MG TABLET PO (08:27)
[2024-09-07] MEDS: Atorvastatin Calcium 40 MG TABLET PO (08:27)
[2024-09-07] MEDS: Lidocaine 4 % Patch ADH..PATCH 1 PATCH TRANSDERMA ×2 (08:29)
--- NOTE | 2024-09-07 08:50 | MHC.CM.PN ---
EMR REVIEWED. PT REMAINS MEDICALLY CLEARED HCP/COUSIN IS WORKING ON GETTING APARTMENT CLEANED/PLUMBING FIXED CM HAS STARTED REFERRING TO SNF'S THAT MAY ACCEPT [facility] PENDING BANK STATEMENTS ARE NOW AVAILABLE. CM WILL CONTINUE TO FOLLOW.
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
[2024-09-07 15:31] VITALS: BP 126/69; PULSE 64; RESP 22; TEMP 37.1; O2SAT 95
[2024-09-07 20:58] VITALS: BP 149/78; PULSE 63
[2024-09-07 23:16] VITALS: BP 142/74; PULSE 59; RESP 16; TEMP 36; O2SAT 93
[2024-09-08] MEDS: Omeprazole 20 MG CAPSULE.DR PO (05:49)
[2024-09-08 07:19] VITALS: BP 132/70; PULSE 54; RESP 16; TEMP 36; O2SAT 91
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
[2024-09-08] MEDS: Lidocaine 4 % Patch ADH..PATCH 1 PATCH TRANSDERMA ×2 (08:34→08:35)
[2024-09-08] MEDS: oxyCODONE HCl Immed Release 15 MG TABLET PO ×3 (08:40→19:33)
[2024-09-08] MEDS: Isosorbide Mononitrate 60 MG TAB.ER.24H PO (08:42)
[2024-09-08] MEDS: allopurinoL 100 MG TABLET PO (08:42)
[2024-09-08] MEDS: Apixaban 5 MG TABLET PO ×2 (08:42→20:29)
[2024-09-08] MEDS: Sucralfate 1 GM TABLET PO ×4 (08:42→20:29)
[2024-09-08] MEDS: Gabapentin 100 MG CAPSULE PO ×3 (08:42→20:29)
[2024-09-08] MEDS: Sertraline HCL 100 MG TABLET PO (08:42)
[2024-09-08] MEDS: amLODIPine Besylate 10 MG TABLET PO (08:42)
[2024-09-08] MEDS: carvediloL 6.25 MG TABLET PO ×2 (08:42→20:30)
[2024-09-08] MEDS: Cholecalciferol (Vitamin D3) 25 MCG TABLET PO (08:43)
[2024-09-08] MEDS: Atorvastatin Calcium 40 MG TABLET PO (08:43)
[2024-09-08] MEDS: hydrALAZINE HCl 25 MG TABLET PO ×2 (08:43→20:29)
[2024-09-08] MEDS: Multivitamin TABLET 1 TAB PO (08:43)
[2024-09-08 15:10] VITALS: BP 109/57; PULSE 54; RESP 16; TEMP 37.1; O2SAT 92
[2024-09-08 20:29] VITALS: BP 141/70
[2024-09-08 20:30] VITALS: BP 141/70; PULSE 73
[2024-09-08 23:23] VITALS: BP 140/70; PULSE 60; RESP 18; TEMP 37.1; O2SAT 96
[2024-09-09] VITALS (7 sets, daily range): BP systolic 126–155; BP diastolic 62–78; PULSE 55–69; RESP 14–18; TEMP 36.6–37.3; O2SAT 92–94
[2024-09-09] MEDS: oxyCODONE HCl Immed Release 15 MG TABLET PO ×5 (03:27→23:36)
[2024-09-09] MEDS: Omeprazole 20 MG CAPSULE.DR PO (05:46)
[2024-09-09] MEDS: Cholecalciferol (Vitamin D3) 25 MCG TABLET PO (08:56)
[2024-09-09] MEDS: Gabapentin 100 MG CAPSULE PO ×3 (08:56→20:48)
[2024-09-09] MEDS: Multivitamin TABLET 1 TAB PO (08:56)
[2024-09-09] MEDS: Atorvastatin Calcium 40 MG TABLET PO (08:57)
[2024-09-09] MEDS: Sertraline HCL 100 MG TABLET PO (08:57)
[2024-09-09] MEDS: allopurinoL 100 MG TABLET PO (08:57)
[2024-09-09] MEDS: Apixaban 5 MG TABLET PO ×2 (08:57→20:52)
[2024-09-09] MEDS: Sucralfate 1 GM TABLET PO ×4 (08:57→20:48)
[2024-09-09] MEDS: carvediloL 6.25 MG TABLET PO ×2 (08:57→20:48)
[2024-09-09] MEDS: Isosorbide Mononitrate 60 MG TAB.ER.24H PO (08:58)
[2024-09-09] MEDS: amLODIPine Besylate 10 MG TABLET PO (08:58)
[2024-09-09] MEDS: hydrALAZINE HCl 25 MG TABLET PO ×2 (08:58→20:47)
[2024-09-09] MEDS: Lidocaine 4 % Patch ADH..PATCH 1 PATCH TRANSDERMA ×2 (08:59)
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
[2024-09-10] MEDS: oxyCODONE HCl Immed Release 15 MG TABLET PO ×5 (03:59→20:20)
[2024-09-10] MEDS: Omeprazole 20 MG CAPSULE.DR PO (05:40)
[2024-09-10 07:06] VITALS: BP 115/60; PULSE 60; RESP 18; TEMP 36.4; O2SAT 95
[2024-09-10] MEDS: Atorvastatin Calcium 40 MG TABLET PO (07:44)
[2024-09-10] MEDS: carvediloL 6.25 MG TABLET PO ×2 (07:44→20:19)
[2024-09-10] MEDS: Multivitamin TABLET 1 TAB PO (07:44)
[2024-09-10] MEDS: amLODIPine Besylate 10 MG TABLET PO (07:44)
[2024-09-10] MEDS: Sucralfate 1 GM TABLET PO ×4 (07:44→20:19)
[2024-09-10] MEDS: Cholecalciferol (Vitamin D3) 25 MCG TABLET PO (07:44)
[2024-09-10] MEDS: Gabapentin 100 MG CAPSULE PO ×3 (07:44→20:19)
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
[2024-09-10] MEDS: allopurinoL 100 MG TABLET PO (07:45)
[2024-09-10] MEDS: hydrALAZINE HCl 25 MG TABLET PO ×2 (07:45→20:16)
[2024-09-10] MEDS: Isosorbide Mononitrate 60 MG TAB.ER.24H PO (07:45)
[2024-09-10] MEDS: Sertraline HCL 100 MG TABLET PO (07:45)
[2024-09-10] MEDS: Apixaban 5 MG TABLET PO ×2 (07:45→20:19)
[2024-09-10] MEDS: Lidocaine 4 % Patch ADH..PATCH 1 PATCH TRANSDERMA ×2 (07:45)
--- NOTE | 2024-09-10 13:28 | MHC.CM.PN ---
Remains medically cleared awaiting safe dc plan. Home w/ services vs LTC LM for cousin/HCP Cuate re: status of the home. 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 Expanded referrals in [facility]. No bed offers at this time. CM will continue to follow.
--- NOTE | 2024-09-10 14:08 | PC.NURSE ---
Today patient has been sleeping most of the day and afternoon. Reports he didnt get much sleep last night. Pt is alert and oriented x3 although forgetful and self neglectftul. Has been offered to get up, washed and dressed several times but continues to say later . Late afternoon, pt is finally agreeable to get out of bed and to wheelchair. Patient is wheelchair bound at baseline with chronic pain and needs considerable help with ADLs. 1-2 assist to wheelchair. Is continent of bowel and bladder, using bedpan and urinal. Eating 100% of most meals as a self feed. Able to make needs known and follow commands. Lungs are clear/dim throughout. Resp. even and non-labored on RA. Bowel sounds are active in all quadrants and abd is soft and non-tender to palpation. Last bm was yesterday. Limited ROM in bilateral lower extremities and Left shoulder secondary to pain. Patient is in good spirits today and enjoying showing people his drawings.
[2024-09-10 15:42] VITALS: BP 133/65; PULSE 65; RESP 16; TEMP 36.2; O2SAT 94
[2024-09-10 20:16] VITALS: BP 161/71
[2024-09-10 20:17] VITALS: BP 161/71; PULSE 63; RESP 16; TEMP 36.1; O2SAT 94
[2024-09-10 20:19] VITALS: BP 161/71; PULSE 63
[2024-09-10 23:54] VITALS: BP 127/67; PULSE 68; RESP 17; TEMP 36.7; O2SAT 95
[2024-09-11] MEDS: oxyCODONE HCl Immed Release 15 MG TABLET PO ×5 (00:16→20:28)
[2024-09-11] MEDS: Omeprazole 20 MG CAPSULE.DR PO (04:30)
--- NOTE | 2024-09-11 05:33 | PC.NURSE ---
Throughout the night patient did not get much sleep, dosed of once or twice, but continued to make his drawing's throughout the night, calm and pleasantly in bed. Per pt this is normal for me I sleep during day, and awake most nights. Pt is AOx3, although forgetful and vague at times. Pt respirations even and non-labored, lung sounds clear but diminished throughout, denies complaints of SOB/cough/CP. Reports last BM 09/10, BSx4, no abd pain with palpation, appropriate appetite. Limited ROM to B/L lower extremities and left shoulder, wheelchair bound at baseline, utilizes urinal at bedside. VSS, pt can follow commands appropriately.
[2024-09-11 07:32] VITALS: BP 138/61; PULSE 60; RESP 16; TEMP 37.1; O2SAT 92
[2024-09-11] MEDS: Isosorbide Mononitrate 60 MG TAB.ER.24H PO (08:09)
[2024-09-11] MEDS: Atorvastatin Calcium 40 MG TABLET PO (08:09)
[2024-09-11] MEDS: Sucralfate 1 GM TABLET PO ×4 (08:09→20:28)
[2024-09-11] MEDS: Multivitamin TABLET 1 TAB PO (08:09)
[2024-09-11] MEDS: Gabapentin 100 MG CAPSULE PO ×3 (08:09→20:28)
[2024-09-11] MEDS: Cholecalciferol (Vitamin D3) 25 MCG TABLET PO (08:09)
[2024-09-11] MEDS: hydrALAZINE HCl 25 MG TABLET PO ×2 (08:10→20:29)
[2024-09-11] MEDS: Apixaban 5 MG TABLET PO ×2 (08:10→20:28)
[2024-09-11] MEDS: amLODIPine Besylate 10 MG TABLET PO (08:10)
[2024-09-11] MEDS: carvediloL 6.25 MG TABLET PO ×2 (08:10→20:28)
[2024-09-11] MEDS: allopurinoL 100 MG TABLET PO (08:10)
[2024-09-11] MEDS: Sertraline HCL 100 MG TABLET PO (08:10)
[2024-09-11] MEDS: Lidocaine 4 % Patch ADH..PATCH 1 PATCH TRANSDERMA ×2 (08:13→08:14)
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
[2024-09-11 15:55] VITALS: BP 117/71; PULSE 64; RESP 18; TEMP 37.2; O2SAT 95
[2024-09-11 20:28] VITALS: BP 115/70; PULSE 67
[2024-09-11 20:29] VITALS: BP 115/70
[2024-09-12] VITALS (7 sets, daily range): BP systolic 112–134; BP diastolic 58–79; PULSE 50–73; RESP 12–20; TEMP 36.3–37; O2SAT 92–95
[2024-09-12] MEDS: oxyCODONE HCl Immed Release 15 MG TABLET PO ×4 (05:14→22:36)
[2024-09-12] MEDS: Omeprazole 20 MG CAPSULE.DR PO (05:14)
[2024-09-12] MEDS: Apixaban 5 MG TABLET PO ×2 (08:59→20:08)
[2024-09-12] MEDS: Sertraline HCL 100 MG TABLET PO (08:59)
[2024-09-12] MEDS: Isosorbide Mononitrate 60 MG TAB.ER.24H PO (08:59)
[2024-09-12] MEDS: Gabapentin 100 MG CAPSULE PO ×3 (08:59→20:08)
[2024-09-12] MEDS: amLODIPine Besylate 10 MG TABLET PO (08:59)
[2024-09-12] MEDS: Sucralfate 1 GM TABLET PO ×4 (09:00→20:08)
[2024-09-12] MEDS: carvediloL 6.25 MG TABLET PO (09:00)
[2024-09-12] MEDS: Cholecalciferol (Vitamin D3) 25 MCG TABLET PO (09:00)
[2024-09-12] MEDS: Atorvastatin Calcium 40 MG TABLET PO (09:00)
[2024-09-12] MEDS: Multivitamin TABLET 1 TAB PO (09:00)
[2024-09-12] MEDS: allopurinoL 100 MG TABLET PO (09:00)
[2024-09-12] MEDS: hydrALAZINE HCl 25 MG TABLET PO ×2 (09:00→20:09)
[2024-09-12] MEDS: Lidocaine 4 % Patch ADH..PATCH 1 PATCH TRANSDERMA ×2 (09:01)
--- NOTE | 2024-09-12 10:53 | MHC.CM.PN ---
Addendum entered by Linda Fenton RN 09/12/24 11:13: CM rec'd call from HCP Cuate w/ status update on the home. Cuate reports he has hired someone to start cleaning the home today and anticipates it will be finished by beginning of next week. A baseboard heating installer is scheduled for tomorrow to fix broken pipes. He plans to call the city once the home is cleaned to schedule the re-assessment. He continues to communicate w/ Erum Duncan, patient's [facility] manager rn case, for services on dc. [facility] understands that services will not be immediately in place on dc and he will plan to assist patient until [facility] services are in place. Original Note: Patient continues to await LTC placement vs resolution of issues w/ home. Liaison from [facility] was on site to screen patient, but did not offer a bed. Cristiana felipe. [facility] will screen patient at bedside tomorrow. CM will continue to follow.
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
[2024-09-12] MEDS: 0.9 % Sodium Chloride Flush 3 ML SYRINGE IVFLUSH (18:09)
--- NOTE | 2024-09-12 18:23 | PC.NURSE ---
Patient was found to be pocketing pain medication. Patient requested his oxycodone 15mg. It was given to him in a med cup, he poured med cup and medication into his mouth and then proceeded to cough into his hand and clench fist tight. Patient was asked to open his fist and he asked, why? . Patient was then asked if he spit out his pain medication into his hand and he responded, yes . Patient was redirected and told he needs to take his meds when they are given to him. He complied and took medication appropriately.
[2024-09-13] MEDS: Omeprazole 20 MG CAPSULE.DR PO (05:41)
[2024-09-13] MEDS: oxyCODONE HCl Immed Release 15 MG TABLET PO ×4 (05:41→23:55)
[2024-09-13 06:54] LABS: Hematocrit 32.5 % (42.0-52.0); Hemoglobin 10.6 g/dl (14.0-18.0); Mean Corpuscular HGB Conc 32.6 g/dl (31.0-36.0); Mean Corpuscular Hemoglobin 27.5 pg (27.0-33.0); Mean Corpuscular Volume 84.4 fL (80.0-98.0); Mean Platelet Volume 9.4 fL (9.4-12.4); Platelet Count 118 X10*3/uL (160-400); Red Blood Count 3.85 X10*6/uL (4.60-5.80); Red Cell Distribution Width 17.6 % (11.0-16.0); White Blood Count 4.9 X10*3/uL (4.8-10.8)
[2024-09-13 07:11] LABS: Anion Gap 14 (12-20); Blood Urea Nitrogen 34 mg/dL (9-16); Calcium 9.1 mg/dL (8.4-10.2); Carbon Dioxide 23 mmol/L (22-29); Chloride 105 mmol/L (96-108); Creatinine Clr Calc Pharmacy 42.3; Estimated Glomerular Filt Rate 38; Glucose Random 92 mg/dL (60-115); Potassium 4.3 mmol/L (3.3-5.1); Sodium 138 mmol/L (135-145)
[2024-09-13 07:56] VITALS: BP 140/85; PULSE 53; RESP 18; TEMP 36.3; O2SAT 94
[2024-09-13] MEDS: Sucralfate 1 GM TABLET PO ×4 (08:10→21:10)
[2024-09-13] MEDS: Atorvastatin Calcium 40 MG TABLET PO (08:52)
[2024-09-13] MEDS: Gabapentin 100 MG CAPSULE PO ×3 (08:52→21:10)
[2024-09-13] MEDS: Multivitamin TABLET 1 TAB PO (08:52)
[2024-09-13] MEDS: Cholecalciferol (Vitamin D3) 25 MCG TABLET PO (08:52)
[2024-09-13] MEDS: allopurinoL 100 MG TABLET PO (08:52)
[2024-09-13] MEDS: amLODIPine Besylate 10 MG TABLET PO (08:53)
[2024-09-13] MEDS: Apixaban 5 MG TABLET PO ×2 (08:53→21:10)
[2024-09-13 08:54] VITALS: PULSE 50
[2024-09-13] MEDS: hydrALAZINE HCl 25 MG TABLET PO ×2 (08:54→21:10)
[2024-09-13] MEDS: Sertraline HCL 100 MG TABLET PO (08:54)
[2024-09-13] MEDS: Isosorbide Mononitrate 60 MG TAB.ER.24H PO (08:55)
[2024-09-13] MEDS: Lidocaine 4 % Patch ADH..PATCH 1 PATCH TRANSDERMA (08:56)
[2024-09-13 15:29] VITALS: BP 122/61; PULSE 61; RESP 18; TEMP 36.6; O2SAT 93
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
[2024-09-13 19:24] VITALS: BP 137/70; PULSE 63; RESP 18; TEMP 36.8; O2SAT 95
[2024-09-13] MEDS: carvediloL 6.25 MG TABLET PO (21:10)
[2024-09-13 23:44] VITALS: BP 135/66; PULSE 68; RESP 18; TEMP 37.1; O2SAT 96
[2024-09-14] MEDS: oxyCODONE HCl Immed Release 15 MG TABLET PO ×5 (04:00→21:41)
[2024-09-14] MEDS: Omeprazole 20 MG CAPSULE.DR PO (05:56)
[2024-09-14 07:36] VITALS: BP 124/63; PULSE 52; RESP 16; TEMP 36.4; O2SAT 95
[2024-09-14] MEDS: Lidocaine 4 % Patch ADH..PATCH 1 PATCH TRANSDERMA ×2 (07:54)
[2024-09-14] MEDS: hydrALAZINE HCl 25 MG TABLET PO ×2 (07:55→21:41)
[2024-09-14] MEDS: Sucralfate 1 GM TABLET PO ×4 (07:55→21:40)
[2024-09-14] MEDS: Multivitamin TABLET 1 TAB PO (07:55)
[2024-09-14] MEDS: carvediloL 6.25 MG TABLET PO ×2 (07:55→21:40)
[2024-09-14] MEDS: Isosorbide Mononitrate 60 MG TAB.ER.24H PO (07:55)
[2024-09-14] MEDS: Cholecalciferol (Vitamin D3) 25 MCG TABLET PO (07:55)
[2024-09-14] MEDS: allopurinoL 100 MG TABLET PO (07:55)
[2024-09-14] MEDS: Gabapentin 100 MG CAPSULE PO ×3 (07:56→21:40)
[2024-09-14] MEDS: Sertraline HCL 100 MG TABLET PO (07:56)
[2024-09-14] MEDS: amLODIPine Besylate 10 MG TABLET PO (07:56)
[2024-09-14] MEDS: Apixaban 5 MG TABLET PO ×2 (07:56→21:40)
[2024-09-14] MEDS: Atorvastatin Calcium 40 MG TABLET PO (07:56)
--- NOTE | 2024-09-14 12:17 | MHC.CM.PN ---
[facility] liaison completed bedside screen and will update CM of decision via [facility].
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
[2024-09-14 15:47] VITALS: BP 119/70; PULSE 60; RESP 18; TEMP 37; O2SAT 94
--- NOTE | 2024-09-14 16:25 | HO.HCP ---
Health Care Proxy Invocation Health Care Proxy Declaration: I, bob salazar , on the date cited below, have determined that, Iban Ballesteros , lacks the capacity to make or communicate, informed health care decision. This determination is made in accordance with accepted standards of medical judgment and pursuant to [place] 201[place], the [facility] Care Proxy Law. The cause, nature, extent and probable duration of the patient's inapacity are described below: Cause: Major neurocongnitive disorder, vascular type Nature:extensive Extent: lifelong and progressive Probable Duration of Patient's Incapacity: Lifelong
[2024-09-14 23:28] VITALS: BP 123/67; PULSE 60; RESP 18; TEMP 36.2; O2SAT 94
[2024-09-15] MEDS: Omeprazole 20 MG CAPSULE.DR PO (04:33)
[2024-09-15] MEDS: oxyCODONE HCl Immed Release 15 MG TABLET PO ×4 (04:33→20:38)
[2024-09-15 07:24] VITALS: BP 131/72; PULSE 58; RESP 16; TEMP 36.4; O2SAT 93
[2024-09-15 08:21] VITALS: BP 131/72
[2024-09-15] MEDS: Gabapentin 100 MG CAPSULE PO ×3 (08:21→20:37)
[2024-09-15] MEDS: carvediloL 6.25 MG TABLET PO ×2 (08:21→20:37)
[2024-09-15] MEDS: allopurinoL 100 MG TABLET PO (08:21)
[2024-09-15 08:22] VITALS: BP 131/72
[2024-09-15] MEDS: Sertraline HCL 100 MG TABLET PO (08:22)
[2024-09-15] MEDS: Atorvastatin Calcium 40 MG TABLET PO (08:22)
[2024-09-15] MEDS: Lidocaine 4 % Patch ADH..PATCH 1 PATCH TRANSDERMA ×3 (08:22→08:49)
[2024-09-15] MEDS: Multivitamin TABLET 1 TAB PO (08:22)
[2024-09-15] MEDS: Apixaban 5 MG TABLET PO ×2 (08:22→20:37)
[2024-09-15] MEDS: amLODIPine Besylate 10 MG TABLET PO (08:22)
[2024-09-15] MEDS: hydrALAZINE HCl 25 MG TABLET PO ×2 (08:22→20:37)
[2024-09-15] MEDS: Cholecalciferol (Vitamin D3) 25 MCG TABLET PO (08:22)
[2024-09-15] MEDS: Isosorbide Mononitrate 60 MG TAB.ER.24H PO (08:22)
[2024-09-15] MEDS: Sucralfate 1 GM TABLET PO ×4 (08:39→20:37)
[2024-09-15 15:21] VITALS: BP 120/64; PULSE 57; RESP 16; TEMP 36.7; O2SAT 93
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
[2024-09-15 23:17] VITALS: BP 145/68; PULSE 61; RESP 16; TEMP 37.1; O2SAT 92
[2024-09-16] MEDS: oxyCODONE HCl Immed Release 15 MG TABLET PO ×5 (00:31→20:14)
--- NOTE | 2024-09-16 04:28 | PC.NURSE ---
late entry; 09/15 2099 pt c/o pain 12/23 asking for oxy 15mg, pt given oxy with his other night time meds, d/t his recent med pocketing, pt asked to open mouth. pt open mouth but did not move the tongue. when asked to lift the tongue, all the night meds with oxy was found under the tongue. when asked why, pt reports i had hair in mouth which did not answer why he was pocketing meds under the tongue. will cont to monitor
[2024-09-16] MEDS: Omeprazole 20 MG CAPSULE.DR PO (04:40)
[2024-09-16 07:36] VITALS: BP 127/67; PULSE 53; RESP 16; TEMP 36.2; O2SAT 93
[2024-09-16] MEDS: Isosorbide Mononitrate 60 MG TAB.ER.24H PO (08:53)
[2024-09-16] MEDS: allopurinoL 100 MG TABLET PO (08:53)
[2024-09-16] MEDS: Lidocaine 4 % Patch ADH..PATCH 1 PATCH TRANSDERMA ×2 (08:53)
[2024-09-16] MEDS: Sertraline HCL 100 MG TABLET PO (08:54)
[2024-09-16] MEDS: Apixaban 5 MG TABLET PO ×2 (08:54→20:12)
[2024-09-16] MEDS: Sucralfate 1 GM TABLET PO ×4 (08:54→20:13)
[2024-09-16] MEDS: amLODIPine Besylate 10 MG TABLET PO (08:54)
[2024-09-16] MEDS: Cholecalciferol (Vitamin D3) 25 MCG TABLET PO (08:54)
[2024-09-16] MEDS: carvediloL 6.25 MG TABLET PO ×2 (08:54→20:13)
[2024-09-16] MEDS: Atorvastatin Calcium 40 MG TABLET PO (08:54)
[2024-09-16] MEDS: Gabapentin 100 MG CAPSULE PO ×3 (08:54→20:13)
[2024-09-16] MEDS: Multivitamin TABLET 1 TAB PO (08:54)
[2024-09-16] MEDS: hydrALAZINE HCl 25 MG TABLET PO ×2 (08:54→20:13)
--- NOTE | 2024-09-16 12:53 | PC.NURSE ---
This Rn after every medication administration asked pt to open his mouth and move tounge side to side to ensure he has taken all meds, pt has been know to pocket meds in his mouth of recently
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
[2024-09-16 15:19] VITALS: BP 116/64; PULSE 61; RESP 16; TEMP 36.8; O2SAT 95
[2024-09-16 19:34] VITALS: BP 162/77; PULSE 74; RESP 18; TEMP 37.2; O2SAT 94
--- NOTE | 2024-09-16 21:01 | MHC.PIE ---
Addendum entered by Greg Estrella RN 09/17/24 01:27: note; at the time of original note, not only was pt accusatory of the senior grant writer and other staff, pt also making threatening comments and gestures by using middle finger, making punching gestures and i'm going to beat you Original Note: p; pt screaming in room angry that he has been calling for pain since 5pm and the staff ignoring him (note; prn oxy given at 1600,by previous shift) per staff, he has not called electrical control assembler bells. till now (1909). pt reminded of pain med given at 1600, pt now claiming hand numbing and unable to move hand as pt observed moving/open and closing hands, pt also reporting pleural/chest/back pain, reproducible with coughing, position change and palpitations (note; pt has been refusing position change and activity). (note: pt has been caught multiple times by staff pocketing medications especially oxy under tongue). now pt screaming at this senior grant writer accusing that i ignore him, treating me like a junky . i;vs; 162/77, p 74, o2 94 ra, t 98.9 oral. i; dr overton notified. p; pt yelling at staff now demanding bengay cream for back pain. i; dr overton notified, new order lidocain ointment now e; night time meds given, prn oxy given. (per pt, pt was pocketing oxy for oxy works faster when crushed in mouth - oxy given crushed). pt informed of lidocain ointment ordered by , pt now refusing ointment. will cont to monitor
[2024-09-16 23:35] VITALS: BP 136/65; PULSE 57; RESP 18; TEMP 37; O2SAT 94
[2024-09-17] MEDS: oxyCODONE HCl Immed Release 15 MG TABLET PO ×5 (01:10→21:00)
[2024-09-17 07:35] VITALS: BP 153/88; PULSE 70; RESP 16; TEMP 36.7; O2SAT 94
[2024-09-17] MEDS: Lidocaine 4 % Patch ADH..PATCH 1 PATCH TRANSDERMA ×2 (08:13→08:14)
[2024-09-17] MEDS: Sucralfate 1 GM TABLET PO ×4 (08:16→20:17)
[2024-09-17] MEDS: Multivitamin TABLET 1 TAB PO (08:16)
[2024-09-17] MEDS: allopurinoL 100 MG TABLET PO (08:16)
[2024-09-17] MEDS: amLODIPine Besylate 10 MG TABLET PO (08:17)
[2024-09-17] MEDS: Atorvastatin Calcium 40 MG TABLET PO (08:17)
[2024-09-17] MEDS: carvediloL 6.25 MG TABLET PO ×2 (08:17→20:16)
[2024-09-17] MEDS: hydrALAZINE HCl 25 MG TABLET PO ×2 (08:17→20:17)
[2024-09-17] MEDS: Apixaban 5 MG TABLET PO ×2 (08:17→20:17)
[2024-09-17] MEDS: Sertraline HCL 100 MG TABLET PO (08:17)
[2024-09-17] MEDS: Gabapentin 100 MG CAPSULE PO ×3 (08:17→20:17)
[2024-09-17] MEDS: Cholecalciferol (Vitamin D3) 25 MCG TABLET PO (08:17)
[2024-09-17] MEDS: Isosorbide Mononitrate 60 MG TAB.ER.24H PO (08:21)
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
[2024-09-17] MEDS: Trolamine Salicylate 10 % Cream 85 GM TUBE 1 APPL TOPICAL (11:27)
--- NOTE | 2024-09-17 12:27 | MHC.CM.PN ---
Patient offered LTC bed @ [facility] [place]. CM discussed w/ HCP who accepts the bed. Pending [facility] approval (MDS faxed @ 0630) and admission paperwork completed/returned by HCP. He is currently in [place] and will try to complete today.
[2024-09-17 15:09] VITALS: BP 126/73; PULSE 53; RESP 18; TEMP 36.1; O2SAT 95
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
[2024-09-17 23:37] VITALS: BP 123/67; PULSE 62; RESP 17; TEMP 36.8; O2SAT 95
--- NOTE | 2024-09-18 | ECG_ITS ---
Test Reason : chest pain Blood Pressure : */* mmHG Vent. Rate : 64 BPM Atrial Rate : * BPM P-R Int : * ms QRS Dur : 92 ms QT Int : 468 ms P-R-T Axes : * 56 -70 degrees QTcB Int : 482 ms Atrial fibrillation Nonspecific ST and T wave abnormality Abnormal ECG When compared with ECG of 14-Jul-2024 11:32, Vent. rate has increased by 25 bpm Referred By: Lynda Shannon Electronically Signed By: JACK SOSA
[2024-09-18] MEDS: oxyCODONE HCl Immed Release 15 MG TABLET PO ×5 (00:58→18:55)
[2024-09-18] MEDS: Trolamine Salicylate 10 % Cream 85 GM TUBE 1 APPL TOPICAL ×2 (01:00→06:09)
[2024-09-18] MEDS: Omeprazole 20 MG CAPSULE.DR PO (05:00)
[2024-09-18 09:00] VITALS: BP 143/74; PULSE 59; RESP 16; TEMP 36.7; O2SAT 92
[2024-09-18] MEDS: Gabapentin 100 MG CAPSULE PO ×3 (09:00→19:25)
[2024-09-18] MEDS: Apixaban 5 MG TABLET PO ×2 (09:00→19:24)
[2024-09-18] MEDS: allopurinoL 100 MG TABLET PO (09:00)
[2024-09-18] MEDS: hydrALAZINE HCl 25 MG TABLET PO ×2 (09:00→19:25)
[2024-09-18] MEDS: Sertraline HCL 100 MG TABLET PO (09:00)
[2024-09-18] MEDS: Atorvastatin Calcium 40 MG TABLET PO (09:00)
[2024-09-18] MEDS: carvediloL 6.25 MG TABLET PO ×2 (09:00→19:25)
[2024-09-18] MEDS: Multivitamin TABLET 1 TAB PO (09:00)
[2024-09-18] MEDS: Isosorbide Mononitrate 60 MG TAB.ER.24H PO (09:00)
[2024-09-18] MEDS: amLODIPine Besylate 10 MG TABLET PO (09:00)
[2024-09-18] MEDS: Sucralfate 1 GM TABLET PO ×4 (09:01→19:25)
[2024-09-18] MEDS: Cholecalciferol (Vitamin D3) 25 MCG TABLET PO (09:01)
[2024-09-18] MEDS: Lidocaine 4 % Patch ADH..PATCH 1 PATCH TRANSDERMA (09:06)
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
[2024-09-18] MEDS: Ketorolac Tromethamine 15 MG/ML VIAL IVPUSH ×3 (11:27→22:23)
--- NOTE | 2024-09-18 12:45 | MHC.CM.PN ---
Addendum entered by Linda Fenton RN 09/18/24 13:04: Per [facility], [facility] most recent PASRR will be denied again d/t lack of documentation re: need for LTC. Note below was sent to [facility] per [facility] request. Updated Risa Vieyra @ [facility]. Will give final approval to [facility] once approved PASRR is sent to [facility]. Per [facility], not likely to be approved today. CM will continue to follow. Original Note: Patient requires custodial care placement, unable to care for himself independently and unable to return home as home was deemed uninhabitable by the [facility].
[2024-09-18 15:57] VITALS: BP 122/68; PULSE 55; RESP 16; TEMP 36.4; O2SAT 93
[2024-09-18] MEDS: HYDROmorphone HCl 0.5 MG/0.5 ML SYRINGE IVPUSH ×2 (17:07→21:06)
[2024-09-18 19:04] VITALS: BP 135/74; PULSE 61; RESP 18; TEMP 36.9; O2SAT 95
[2024-09-18] MEDS: hydrOXYzine HCL 25 MG TABLET PO (19:25)
[2024-09-18] MEDS: Melatonin 3 MG TABLET 6 MG PO (22:23)
[2024-09-18 23:31] VITALS: BP 140/89; PULSE 58; RESP 20; TEMP 36.6; O2SAT 92
--- NOTE | 2024-09-18 23:58 | PM.EVENT ---
Event Note Date of Service: 09/18/24 Event Note: Patient with left-sided chest pain as per the nurse. Vitals stable. Obtaining EKG and troponin Time Spent With Patient Time: Total time managing care of this patient today ____ minutes.
[2024-09-19] MEDS: HYDROmorphone HCl 0.5 MG/0.5 ML SYRINGE IVPUSH ×2 (01:06→05:54)
[2024-09-19 01:10] LABS: Troponin-I High Sensitivity 9.9 ng/L (<3.5-35.0)
--- NOTE | 2024-09-19 01:52 | PC.NURSE ---
At 2325 pt c/o left sided chest pain. [place] text to Dr. Shannon, EKG ordered and labs drawn, VS stable. Will continue to monitor.
[2024-09-19 03:12] VITALS: BP 156/73; PULSE 60; RESP 20; TEMP 36.3; O2SAT 92
[2024-09-19] MEDS: oxyCODONE HCl Immed Release 15 MG TABLET PO ×3 (03:48→20:00)
[2024-09-19] MEDS: Ketorolac Tromethamine 15 MG/ML VIAL IVPUSH ×4 (05:55→23:30)
[2024-09-19] MEDS: Sucralfate 1 GM TABLET PO ×4 (05:55→20:01)
[2024-09-19] MEDS: Omeprazole 20 MG CAPSULE.DR PO (05:55)
[2024-09-19 07:39] VITALS: BP 159/87; PULSE 55; TEMP 36.3; O2SAT 94
[2024-09-19] MEDS: Lidocaine 4 % Patch ADH..PATCH 1 PATCH TRANSDERMA ×2 (08:11→08:17)
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
[2024-09-19 08:15] VITALS: PULSE 79
[2024-09-19] MEDS: carvediloL 6.25 MG TABLET PO ×2 (08:15→20:01)
[2024-09-19] MEDS: Gabapentin 100 MG CAPSULE PO ×3 (08:15→20:00)
[2024-09-19] MEDS: Isosorbide Mononitrate 60 MG TAB.ER.24H PO (08:15)
[2024-09-19] MEDS: hydrALAZINE HCl 25 MG TABLET PO ×2 (08:15→20:01)
[2024-09-19] MEDS: amLODIPine Besylate 10 MG TABLET PO (08:16)
[2024-09-19] MEDS: Atorvastatin Calcium 40 MG TABLET PO (08:16)
[2024-09-19] MEDS: Cholecalciferol (Vitamin D3) 25 MCG TABLET PO (08:16)
[2024-09-19] MEDS: allopurinoL 100 MG TABLET PO (08:16)
[2024-09-19] MEDS: Multivitamin TABLET 1 TAB PO (08:16)
[2024-09-19] MEDS: Apixaban 5 MG TABLET PO ×2 (08:16→20:00)
[2024-09-19] MEDS: Sertraline HCL 100 MG TABLET PO (08:16)
--- NOTE | 2024-09-19 08:16 | PM.EVENT ---
Event Note Date of Service: 09/19/24 Event Note: Left shoulder X-rays and CT reviewed: Severe left shoulder osteoarthritis No acute orthopedic intervention needed Supportive treatment - NSAIDs, ice, rest Can followup out patient Time Spent With Patient Time: Total time managing care of this patient today ____ minutes.
[2024-09-19] MEDS: HYDROmorphone HCl 0.5 MG/0.5 ML SYRINGE 1 MG IVPUSH ×5 (08:29→21:33)
[2024-09-19] MEDS: LORazepam 0.5 MG TABLET 0.25 MG PO ×2 (09:49→20:00)
--- NOTE | 2024-09-19 11:09 | MHC.CM.PN ---
Addendum entered by Linda Fenton RN 09/19/24 15:53: PASRR LEVEL 1 ACCEPTED, AWAITING LEVEL 2. ANTICIPATE APPROVAL AND DC TOMORROW. Original Note: AWAITING COMPLETION OF PASRR BY [facility], THEY HAVE DECLINED TO USE THE PASRR THIS CM COMPLETED.
[2024-09-19 16:00] VITALS: BP 139/88; PULSE 60; RESP 18; TEMP 36.8; O2SAT 91
--- NOTE | 2024-09-19 18:10 | PC.NURSE ---
Pt educated that he will be d/c tomorrow with CONCRETE TECHNICIAN witness. States he will go with PO pain meds and can follow up out patient with Ortho. Pt in agreement with this plan.
[2024-09-19 19:56] VITALS: BP 127/66; PULSE 56; RESP 18; TEMP 37.2; O2SAT 94
[2024-09-19] MEDS: Melatonin 3 MG TABLET 6 MG PO (20:04)
[2024-09-20] MEDS: HYDROmorphone HCl 0.5 MG/0.5 ML SYRINGE 1 MG IVPUSH ×4 (00:41→09:24)
[2024-09-20 03:11] VITALS: BP 148/85; PULSE 56; RESP 17; TEMP 36.4; O2SAT 93
[2024-09-20] MEDS: Ketorolac Tromethamine 15 MG/ML VIAL IVPUSH ×2 (05:20→12:55)
[2024-09-20] MEDS: oxyCODONE HCl Immed Release 15 MG TABLET PO ×2 (05:20→11:30)
[2024-09-20] MEDS: Omeprazole 20 MG CAPSULE.DR PO (05:21)
[2024-09-20] MEDS: Sucralfate 1 GM TABLET PO ×2 (06:34→11:29)
[2024-09-20 08:00] VITALS: BP 198/105; PULSE 60; RESP 20; TEMP 36.8
[2024-09-20 09:27] VITALS: BP 131/79
[2024-09-20] MEDS: amLODIPine Besylate 10 MG TABLET PO (09:27)
[2024-09-20] MEDS: allopurinoL 100 MG TABLET PO (09:27)
[2024-09-20] MEDS: hydrALAZINE HCl 25 MG TABLET PO (09:27)
[2024-09-20] MEDS: Sertraline HCL 100 MG TABLET PO (09:27)
[2024-09-20] MEDS: Gabapentin 100 MG CAPSULE PO (09:27)
[2024-09-20] MEDS: Cholecalciferol (Vitamin D3) 25 MCG TABLET PO (09:30)
[2024-09-20 09:31] VITALS: BP 131/79; PULSE 60
[2024-09-20] MEDS: carvediloL 6.25 MG TABLET PO (09:31)
[2024-09-20] MEDS: Multivitamin TABLET 1 TAB PO (09:31)
[2024-09-20] MEDS: Apixaban 5 MG TABLET PO (09:31)
[2024-09-20] MEDS: Isosorbide Mononitrate 60 MG TAB.ER.24H PO (09:31)
[2024-09-20] MEDS: Atorvastatin Calcium 40 MG TABLET PO (09:31)
[2024-09-20] MEDS: Lidocaine 4 % Patch ADH..PATCH 1 PATCH TRANSDERMA ×2 (09:32)
--- NOTE | 2024-09-20 10:19 | MHC.CM.PN ---
Patient medically cleared for dc to [facility] @ [facility]. PASRR and Elder services approval received. BLS transport scheduled for 1pm. Patient, HCP RACHEL Cuello and PA aware. IMM delivered.
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
[2024-09-20 10:36] LABS: Troponin-I High Sensitivity 8.6 ng/L (<3.5-35.0)
[2024-09-20] MEDS: HYDROmorphone HCl 1 MG/ML SYRINGE IVPUSH (12:56)
== END 2024-09-20 13:20 | DRG 884 ==
PROVIDERS: Family Medicine; Internal Medicine; Nurse Practitioner Acute Care; Physician Assistant; Student in an Organized Health Care Education/Training Program; Admitting Provider Student in an Organized Health Care Education/Training Program; PCP Nurse Practitioner Adult Health; Visit Provider Physician Assistant Medical
DX: F03.90 Unspecified dementia, unspecified severity, without behavioral disturbance, psychotic disturbance, mood disturbance, and anxiety (principal); N17.9 Acute kidney failure, unspecified; R45.851 Suicidal ideations; I12.9 Hypertensive chronic kidney disease with stage 1 through stage 4 chronic kidney disease, or unspecified chronic kidney disease; I25.10 Atherosclerotic heart disease of native coronary artery without angina pectoris; Z95.1 Presence of aortocoronary bypass graft; I48.0 Paroxysmal atrial fibrillation; N18.30 Chronic kidney disease, stage 3 unspecified; J45.909 Unspecified asthma, uncomplicated; D69.6 Thrombocytopenia, unspecified; M19.012 Primary osteoarthritis, left shoulder; G89.29 Other chronic pain; R62.7 Adult failure to thrive; Z68.24 Body mass index [BMI] 24.0-24.9, adult; E78.5 Hyperlipidemia, unspecified; K21.9 Gastro-esophageal reflux disease without esophagitis; M10.9 Gout, unspecified; F39 Unspecified mood [affective] disorder; Z74.9 Problem related to care provider dependency, unspecified; Z75.1 Person awaiting admission to adequate facility elsewhere; Z79.01 Long term (current) use of anticoagulants; Z79.899 Other long term (current) drug therapy
CPT/HCPCS: 36415; 73030; 73200; 80048; 84484; 85025; 85027; 93005; 97161; 97166; 99222; J1171; J1885; J7120

== ENCOUNTER 2024-07-27 13:14 | Outpatient (BNV) | payer MEDICARE, SELFPAY | END 2024-09-17 17:45 | PROVIDERS: Admitting Provider Student in an Organized Health Care Education/Training Program; PCP Nurse Practitioner Adult Health; Visit Provider Radiology Diagnostic Radiology | DX: M19.012 Primary osteoarthritis, left shoulder (principal) | CPT/HCPCS: 73030 ==

== ENCOUNTER 2024-07-27 13:14 | Outpatient (BNV) | payer MEDICARE, SELFPAY | END 2024-09-18 18:23 | PROVIDERS: Admitting Provider Student in an Organized Health Care Education/Training Program; PCP Nurse Practitioner Adult Health; Visit Provider Student in an Organized Health Care Education/Training Program | DX: M19.012 Primary osteoarthritis, left shoulder (principal) | CPT/HCPCS: 73200 ==

== ENCOUNTER 2024-07-27 13:14 | Outpatient (BNV) | payer MEDICARE, SELFPAY | END 2024-09-18 23:47 | PROVIDERS: Admitting Provider Student in an Organized Health Care Education/Training Program; PCP Nurse Practitioner Adult Health; Visit Provider Internal Medicine | DX: I48.91 Unspecified atrial fibrillation (principal) | CPT/HCPCS: 93010 ==

== ENCOUNTER → 2024-07-27 13:14 | Outpatient (BNV) | payer MEDICARE, SELFPAY | PROVIDERS: Admitting Provider Student in an Organized Health Care Education/Training Program; Visit Provider Student in an Organized Health Care Education/Training Program | DX: F03.90 Unspecified dementia, unspecified severity, without behavioral disturbance, psychotic disturbance, mood disturbance, and anxiety (principal); R62.7 Adult failure to thrive | CPT/HCPCS: 99222; 99231; 99232 ==

== ENCOUNTER → 2024-07-27 13:14 | Outpatient (BNV) | payer MEDICARE, SELFPAY | PROVIDERS: Admitting Provider Student in an Organized Health Care Education/Training Program; PCP Nurse Practitioner Adult Health; Visit Provider Social Worker | DX: F03.90 Unspecified dementia, unspecified severity, without behavioral disturbance, psychotic disturbance, mood disturbance, and anxiety (principal) | CPT/HCPCS: 99232 ==